=== PATIENT | male | born 1945 | race Caucasian/White ===

== ENCOUNTER 2021-12-08 09:01 | Outpatient (CLI) | payer OTHER, SELFPAY ==
--- OUTSIDE RECORDS SUMMARY | 2021-12-08 09:12 | XMS_ITS | Encounter Summary ---
:1945 Author Organization [place] Address [address] [facility] [place] [address] Care Team Providers Name Role Phone [facility] Primary Care Provider [phone] Encounter Details Date Type Department Care Team Description 03/06/2017 Orders Only [facility] Eye Gautam Landrum Giant cell arteritis Clinic [facility] MD Erik (H) Randall [address] [place] [address] Social History Tobacco Use Types Packs/Day Years Used Date Smoking Tobacco: Never Smokeless Tobacco: Never Alcohol Use Standard Drinks/Week Comments No 0 (1 standard drink = 0.6 oz pure alcoho l) Sex Assigned at Date Recorded Not on file documented as of this encounter Plan of Treatment Not on filedocumented as of this encounter Visit Diagnoses Diagnosis Giant cell arteritis (H) Giant cell arteritis documented in this encounter Care Teams Crop Grain Or Livestock Farmer Relationship Specialty Start Date End Date [facility] PCP - General 01/19/17 [place] [address] documented as of this encounter
--- OUTSIDE RECORDS SUMMARY | 2021-12-08 09:12 | XMS_ITS | Encounter Summary ---
:1945 Author Organization [place] Address [facility] [place] [address] Care Team Providers Name Role Phone [facility] Primary Care Provider [phone] Encounter Details Date Type Department Care Team Description 03/02/2017 Anesthesia Event [facility] Procedure Center Kirill Blair MD [address] [place] [address] [address] [place] [address] Anesthesia Record Procedure Summary Procedure Name Responsible Anesthesia Start Anesthesia Stop Time Anesthesiologist Time Right Temporal Sonia Rashid 03/02/17 0906 03/02/17 0 950 Artery Biopsy MD Edvin (Right: Face) Events Date Time Event Comment 03/02/2017 0817 0906 An Start 0906 An Start Data 0924 AN INCISION 0950 an stop data 0950 An Stop Electronically s igned by Ab Lyons on March 02, 2017 9:50 AM Name Total midazolam 1mg/mL 2 mg lidocaine 2% 100 mg propofol (DIPRIVAN) injection 10 mg/mL vial 90 mg lactated ringers infusion 300 mL Agents Name NO HELIOX O2 N2O Air Exp Sevoflurane Exp Isoflurane Exp Desflurane Exp N2O O2 Delivery Device Ins Sevoflurane Ins Isoflurane Ins Desflurane O2 Auxiliary Blood No blood administrations on file. Lines, Drains, and Airways Type Details Placement Removal Incision/Surgical Site 03/02/17; 09; Right; 03/02/17 09 by Andie Hernandez RN documented in this encounter Social History Tobacco Use Types Packs/Day Years Used Date Smoking Tobacco: Never Smokeless Tobacco: Never Alcohol Use Standard Drinks/Week Comments No 0 (1 standard drink = 0.6 oz pure alcoho l) Sex Assigned at Date Recorded Not on file documented as of this encounter OR Notes Anesthesia Postprocedure Evaluation - Sonia Rashid MD - 03/02/2017 12:58 PM CST Patient: Corby Mojica Procedure(s): Right Temporal Artery Biopsy - Wound Class: I-Clean Diagnosis:Rule Out Arteritis Diagnosis Additional Information: No value filed. Anesthesia Type: MAC Note: Anesthesia Post Evaluation Patient location during evaluation: Phase 2 Patient participation: Able to fully participate in evaluation Level of consciousness: awake and alert Pain management: adequate Airway patency: patent Cardiovascular status: acceptable Respiratory status: acceptable Hydration status: acceptable PONV: none Anesthetic complications: None Comments: Patient discharged prior to final evaluation. Chart reviewed. No anesthetic issues identified. Met discharge criteria. Last vitals: Vitals: 03/02/17 0741 03/02/17 0956 BP: 123/79 117/67 Pulse: 67 Resp: 16 16 Temp: 36.8 ??C (98.2 ??F) 36.7 ??C (98 ??F) SpO2: 95% 96% Electronically Signed By: Sonia Lee MD March 02, 2017 12:58 PM R DEPARTMENT SUPERVISOR Anesthesia Preprocedure Evaluation - Sonia Rashid MD - 02/28/2017 1:57 PM CST Anesthesia Evaluation . Pt has had prior anesthetic. Type: General and MAC ROS/MED HX ENT/Pulmonary: (+)sleep apnea, doesn't use CPAP , . . Neurologic: (+)other neuro resolved right eye double vision Cardiovascular: (+) hypertension----. Taking blood thinners Pt has received instructions: Instructions Given to patient: hold asa. . . :. . Previous cardiac testing date:results:date: results:ECG reviewed date:02/28/2017 results:NSR date: results: METS/Exercise Tolerance: >4 METS Hematologic: - neg hematologic ROS Musculoskeletal: - neg musculoskeletal ROS GI/Hepatic: (+) GERD Asymptomatic on medication, Renal/Genitourinary: - ROS Renal section negative Endo: (+) type II DM Last HgA1c: 7.4 date: 01/2017 not previously admitted for DM/DKA . Psychiatric: - neg psychiatric ROS Infectious Disease: - neg infectious disease ROS Malignancy: - no malignancy Other: (+) No chance of C-spine cleared: N/A, no H/O Chronic Pain,no other significant disability - neg other ROS Physical Exam Normal systems: cardiovascular, pulmonary and dental Airway Mallampati: III TM distance: >3 FB Neck ROM: full Dental Cardiovascular Rhythm and rate: regular and normal Pulmonary breath sounds clear to auscultation Other findings: Results for CORBY MOJICA ( ) as of 02/28/2017 16:18 02/28/2017 15:10 Sodium: 135 Potassium: 4.2 Chloride: 99 Carbon Dioxide: 32 Urea Nitrogen: 14 Creatinine: 0.56 (L) GFR Estimate: >90 GFR Estimate If Black: >90 Calcium: 8.8 Anion Gap: 5 Glucose: 219 (H) WBC: 6.3 Hemoglobin: 13.9 Hematocrit: 44.2 Platelet Count: 253 RBC Count: 5.13 MCV: 86 MCH: 27.1 MCHC: 31.4 (L) RDW: 13.9 PAC Discussion and Assessment ASA Classification: 2 Case is suitable for: ASC Anesthetic techniques and relevant risks discussed: MAC with GA as backup Invasive monitoring and risk discussed: Yes Types: Possibility and Risk of blood transfusion discussed: Yes NPO instructions given: Additional anesthetic preparation and risks discussed: Needs early admission to pre-op area: Other: PAC Resident/BIAS 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 HELPER Anesthesia Assessment: Corby Mojica is a 71 yo male scheduled for Right Temporal Artery Biopsy on 03/02/[address] Shaikh. PAC referral by Dr. Shaikh for assessment and optimization of anesthesia. Previous anesthesia without complications. 1) Cardiac: HTN, well managed. EKG today NSR. METS >4 without cardiac symptoms. 2) Pulmonary: Never smoked. Mild RAJESH, does not use CPAP 3) GI: GERD, well managed with protonix. 4) HEENT: evaluation of diplopia, mostly in his right eye, but this has now resolved. 5) Endo: DM II, last A1C 7.4 2 weeks ago. Feasible airway Pt also evaluated by Dr. Garduno. Please see recommendations below. Labs drawn today. I spent 20 minutes face to face with pt, assessing, examining, and educating Reviewed and Signed by PAC Mid-Level Provider/Resident Mid-Level Provider/Resident: Lisa Ruth APRN Date: 02/28/2017 Time: 1400 Attending Anesthesiologist Anesthesia Assessment: 71 year old for temporal artery biopsy in ongoing diagnosis of neurological symptoms (double vision,LE weakness). Chart reviewed, patient seen and evaluated; agree with above assessment. Patient has no significant cardiac or pulmonary disease. Stable GERD, DM II. Has been active, mets >4. This case under MAC. Patient is appropriate for the planned procedure without further workup or medical management change. The final anesthesia plan will be determined by the physician anesthesiologist caring for the patient on the day of surgery. Reviewed and Signed by PAC Anesthesiologist Anesthesiologist: lluvia Date: 02/28/2017 Time: Pass/Fail: Pass Disposition: PAC Pharmacist Assessment: Pharmacist: Date: Time: Anesthesia Plan History & Physical Review History and physical reviewed and following examination; no interval change. ASA Status: 3 . NPO Status: > 2 hours and > 8 hours Plan for MAC Reason for MAC: Deep or markedly invasive procedure (G8) Postoperative Care Consents Anesthetic plan, risks, benefits and alternatives discussed with: Patient and Spouse.. . R DEPARTMENT SUPERVISOR documented in this encounter Miscellaneous Notes Anesthesia Care Transfer Note - Ab Lyons APRN PHYSIOLOGICAL CHEMIST - 03/02/2017 9:50 AM CST Patient: Corby Mojica Procedure(s): Right Temporal Artery Biopsy - Wound Class: I-Clean Diagnosis: Rule Out Arteritis Diagnosis Additional Information: No value filed. Anesthesia Type: MAC Note: Airway :Room Air Patient transferred to:Phase II Comments: To Phase 2 recovery. VSS Denies discomfort. Fully awake and orientedHandoff Report: Identifed the Patient, Identified the Reponsible Provider, Reviewed the pertinent medical history, Discussed the surgical course, Reviewed Intra-OP anesthesia mangement and issues during anesthesia, Set expect ations for post-procedure period and Allowed opportunity for questions and acknowledgement of understanding Vitals: (Last set prior to Anesthesia Care Transfer) PHYSIOLOGICAL CHEMIST VITALS 03/02/2017 0920 - 03/02/2017 0950 03/02/2017 EKG: Sinus rhythm Electronically Signed By: Ab Lyons APRN PHYSIOLOGICAL CHEMIST March 02, 2017 9:50 AM R DEPARTMENT SUPERVISOR documented in this encounter Plan of Treatment Not on filedocumented as of this encounter Visit Diagnoses Not on filedocumented in this encounter Administered Medications Inactive Administered Medications - up to 3 most recent administrations Medication Order MAR Action Action Date Dose Rate Site lidocaine injection 2% (MDV) Given 03/02/2017 9:13 AM ORDER DEPARTMENT SUPERVISOR 100 mg Intravenous, PRN, Starting on Sun03/02/17 at 0913, Anesthesia Intra-op midazolam (VERSED) injection Given 03/02/2017 9:09 AM ORDER DEPARTMENT SUPERVISOR 1 mg Intravenous, Administer over 2 Minutes, PRN, anxiety, Starting on Sun03/02/17 at 0905, Anesthesia Intra-op Given 03/02/2017 9:05 AM ORDER DEPARTMENT SUPERVISOR 1 mg propofol (DIPRIVAN) injection 10 mg/mL v ial Given 03/02/2017 9:28 AM ORDER DEPARTMENT SUPERVISOR 15 mg Intravenous, PRN, Starting on Sun03/02/17 at 0915, Anesthesia Intra-op Given 03/02/2017 9:17 AM ORDER DEPARTMENT SUPERVISOR 25 mg Given 03/02/2017 9:15 AM ORDER DEPARTMENT SUPERVISOR 50 mg documented in this encounter Care Teams Piano Teacher Relationship Specialty Start Date End Date [facility] PCP - General 01/19/17 [place], [place] [address] documented as of this encounter
--- OUTSIDE RECORDS SUMMARY | 2021-12-08 09:12 | XMS_ITS | Clinical Summary ---
:1945 Author Organization [place] Address [facility] [place] [address] Care Team Providers Name Role Phone [facility] Primary Care Provider [phone] Allergies No known active allergies Medications Medication Sig Dispensed Refills Start Date End Date Status HYDROXYZINE HCL PO Take by mouth as 0 Active needed latanoprost (XALATAN) 1 drop At Bedtime 0 Active 0.005 % ophthalmic solution lidocaine (LIDODERM) Place 1 patch onto 0 Active 5 % Patch the skin every 24 hours Menthol-Methyl Externally apply 0 Active Salicylate topically every (MENTHODERM) 10-15 % other day OINT Cyanocobalamin Take by mouth every 0 Active (VITAMIN B 12 PO) morning FOLIC ACID PO Take 1 mg by mouth 0 Active every morning aspirin 325 MG tablet Take 325 mg by 0 Active mouth At Bedtime citalopram (CELEXA) Take 20 mg by mouth 0 Active 20 MG tablet every morning fish oil-omega-3 Take 2 g by mouth 0 Active fatty acids 1000 MG daily capsule furosemide (LASIX) 20 Take 20 mg by mouth 0 Active MG tablet daily gabapentin Take 800 mg by 0 Acti ve (NEURONTIN) 800 MG mouth every evening tablet lisinopril Take 10 mg by mouth 0 Active (PRINIVIL/ZESTRIL) 10 every morning MG tablet metFORMIN Take 500 mg by 0 Activ e (GLUCOPHAGE-XR) 500 mouth 3 times daily MG 24 hr tablet (with meals) methocarbamol Take 750 mg by 0 A ctive (ROBAXIN) 750 MG mouth three times a tablet week oxyCODONE-acetaminoph Take 1 tablet by 0 Active en (PERCOCET) 5-325 mouth every 4 hours MG per tablet as needed for moderate to severe pain pantoprazole Take 40 mg by mouth 0 Active (PROTONIX) 40 MG EC every morning tablet pioglitazone (ACTOS) Take 30 mg by mouth 0 Active 30 MG tablet every morning Ropinirole HCl 4 MG Take 4 mg by mouth 0 Active TB24 At Bedtime sildenafil (VIAGRA) Take 100 mg by 0 Active 100 MG tablet mouth daily as needed simvastatin (ZOCOR) Take 80 mg by mouth 0 Active 80 MG tablet At Bedtime Wound Dressings Externally apply 0 Active (SILVASORB) GEL topically as needed Sodium Fluoride 1.1 % Apply to affected 0 Active PSTE area 2 times daily acetaminophen Take 2 tablets (650 1 Bottle 0 03/02/2017 Active (TYLENOL) 325 MG mg) by mouth every tabletIndications: 4 hours as needed Post-operative state for mild pain (mild pain) Maximum of 4000 mg of acetaminophen in 24 hours. bacitracin 500 Apply topically 2 1 Tube 0 03/02/2017 Active UNIT/GM times daily OINTIndications: Post-operative state predniSONE Take 3 tablets (60 90 tablet 3 03/06/2017 Active (DELTASONE) 20 MG mg) by mouth daily tabletIndications: Giant cell arteritis (H) METHOTREXATE PO 0 Acti ve Active Problems No known active problems Social History Tobacco Use Types Packs/Day Years Used Date Smoking Tobacco: Never Smokeless Tobacco: Never Alcohol Use Standard Drinks/Week Comments No 0 (1 standard drink = 0.6 oz pure alcoho l) Sex Assigned at Date Recorded Not on file Last Filed Vital Signs Vital Sign Reading Time Taken Comments Blood Pressure 117/67 03/02/2017 9:56 AM MANAGER INTRANET Pulse 67 03/02/2017 7:41 AM MANAGER INTRANET Temperature 36.7 ??C (98 ??F) 03/02/2017 9:56 AM MANAGER INTRANET Respiratory Rate 16 03/02/2017 9:56 AM MANAGER INTRANET Oxygen Saturation 96% 03/02/2017 9:56 AM MANAGER INTRANET Inhaled Oxygen Concentration - - Weight 93 kg (205 lb) 03/02/2017 7:41 AM MANAGER INTRANET Height 185.4 cm (6' 1) 03/02/2017 7:41 AM MANAGER INTRANET Body Mass Index 27.05 03/02/2017 7:41 AM MANAGER INTRANET Plan of Treatment Not on file Insurance Payer Benefit Plan Subscriber ID Effective Phone Address Typ e / Group Dates [employer] [id number] 1995-Prese [phone] [facility] OFFICE [facility] nt [address] [facility] [address] [address] [place] [address] (Home) [place] [phone] RACHEL [place]UR[employer]ET[employer] (Work) [id number] Corby Perry Personal/Family Self [address] (Home) [place] [address] Corby Perry Other Self [id number] (Home) [place] [phone] RACHEL MURRIET[employer] (Work) [id number] Corby Perry Other Self [id number] ([place]) [place] [address] Care Teams Waste Reduction Coordinator Relationship Specialty [facility] [place], [place] [address]
--- OUTSIDE RECORDS SUMMARY | 2021-12-08 09:12 | XMS_ITS | Encounter Summary ---
:1945 Author Organization [place] Address [address] [place] [address]. [place] [address] Care Team Providers Name Role Phone [facility] Primary Care Provider [phone] Encounter Details Date Type Department Care Team Description 03/02/2017 Hospital Encounter [facility] Surgery and [place], Post-operative state Procedure Center MD Emily (Primary Dx) [address] [place] [id number] [phone] Social History Tobacco Use Types Packs/Day Years Used Date Smoking Tobacco: Never Smokeless Tobacco: Never Alcohol Use Standard Drinks/Week Comments No 0 (1 standard drink = 0.6 oz pure alcoho l) Sex Assigned at Date Recorded Not on file documented as of this encounter Last Filed Vital Signs Vital Sign Reading Time Taken Comments Blood Pressure 117/67 03/02/2017 9:56 AM EDI ARCHITECT Pulse 67 03/02/2017 7:41 AM EDI ARCHITECT Temperature 36.7 ??C (98 ??F) 03/02/2017 9:56 AM EDI ARCHITECT Respiratory Rate 16 03/02/2017 9:56 AM EDI ARCHITECT Oxygen Saturation 96% 03/02/2017 9:56 AM EDI ARCHITECT Inhaled Oxygen Concentration - - Weight 93 kg (205 lb) 03/02/2017 7:41 AM EDI ARCHITECT Height 185.4 cm (6' 1) 03/02/2017 7:41 AM EDI ARCHITECT Body Mass Index 27.05 03/02/2017 7:41 AM EDI ARCHITECT documented in this encounter Discharge Instructions Discharge Instructionsde Curtis Sauceda MD - 03/02/2017 9:51 AM EDI ARCHITECT Post-operative Instructions Ophthalmic Plastic and Reconstructive Surgery Emily Shaikh M.D. All instructions apply to the operated eye(s) or eyelid(s). Wound care and personal care ? If a patch or bandage has been placed, please leave this in place until seen by your physician. Ensure that the bandage does not get wet when you take a shower. ? You may shower or wash your hair the day after surgery. Do not bathe or go swimming for 1 week to prevent contamination of your wounds. ? Expect some swelling, bruising. Also expect serum caking, crusting and discharge from the incisions. A small amount of surface bleeding is normal for the first 48 hours. ? Your eye(s) and eyelid(s) may be painful and tender. This is normal after surgery. Use the pain medication as prescribed. If your pain does not improve despite the medication, contact the office. Activity restrictions and driving ? Avoid heavy lifting, bending, exercise or strenuous activity for 1 week after surgery. You may resume other activities and return to work as tolerated. ? You may not resume driving until have you stopped using narcotic pain medications (such as [place], Percocet, Tylenol #3). Medications ? Restart all your regular home medications and eye drops. If you take Plavix or Aspirin on a regular basis, wait for 72 hours after your surgery before restarting these in order todecrease the risk of bleeding complications. ? Avoid aspirin and aspirin-like medications (Motrin, Aleve, Ibuprofen, Giovana- Minong etc) for 72 hours to reduce the risk of bleeding. You may take Tylenol (acetaminophen) for pain. ? In addition to your home medications, take the following post-operative medications as prescribed by your physician. ? Apply antibiotic ointment (usually erythromycin) to all sutures three times a day ? Take pain pills at prescribed frequency as needed for pain. ? WARNING: All the prescription pain medications listed above contain Tylenol (acetaminophen). You must not take more than 4,000 mg of acetaminophen per 24-hour period. This is equivalent to 6 tablets of Darvocet, 12 tablets of [place], Percocet or Tylenol #3. If you take other [id number]-iqd-gvgexfe medications containing acetaminophen, you must take the amount of acetaminophen into account and reduce the number of prescribed pain pills accordingly. ? The prescribed medications may make you drowsy. You must not drive a car, operate heavy machinery or drink alcohol while taking them. ? The prescribed pain medications may cause constipation and nausea. Take them with some food to prevent a stomach upset. If you continue to experience nausea, call your physician. Contact information and follow-up ? Return to the Eye Clinic for a follow-up appointment with your physician as scheduled. If no appointment has been scheduled: - [facility] eye clinic: [phone] for an appointment with Dr. Shaikh within 1 to 2 weeks from your date of surgery. - [facility] eye clinic: [phone] for an appointment [address]. Shaikh within 1 to2 weeks from your date of surgery. ? For severe pain, bleeding, or loss of vision, call the [facility] at [phone] or [facility] at [phone]. After hours or on weekends and holidays, call [phone] and ask to speak with the ophthalmologiston call. An carton forming machine operatorcall worker can be reached after hours for concerns. The carton forming machine operator doctor should not call in medication refill requests after hours or on weekends, so please plan accordingly. An effort has been made to provide adequate pain medications following every surgery, and refills will not be provided in most instances. Narcotic pain medications cannot be called in. [facility] Home Care Following Anesthesia For 24 hours after surgery: 1. Get plenty of rest. A responsible adult must stay with you for at least 24 hours after you leave the surgery center. 2. Do not drive or use heavy equipment. If you have weakness or tingling, don't drive or use heavy equipment until this feeling goes away. 3. Do not drink alcohol. 4. Avoid strenuous or risky activities. Ask for help when climbing stairs. 5. You may feel lightheaded. IF so, sit for a few minutes before standing. Have someone help you getup. 6. If you have nausea (feel sick to your stomach): Drink only clear liquids such as apple juice, jocelin eros, broth or 7-Up. Rest may also help. Be sure to drink enough fluids. Move to a regular diet asyou feel able. 7. You may have a slight fever. Call the doctor if your fever is over 100??F (37.7??C) (taken under the tongue) or lasts longer than 24 hours. 8. You may have a dry mouth, a sore throat, muscle aches or trouble sleeping. These should go away after 24 hours. 9. Do not make important or legal decisions. {BlankBase Single ng pain medications To get the best pain relief possible, remember these points: ?? Take pain medications as directed, before pain becomes severe. ?? Pain medication can upset your stomach: taking it with food may help. ?? Constipation is a common side effect of pain medication. Drink plenty of fluids. ?? Eat foods high in fiber. Take a stool softener if recommended by your doctor or pharmacist. ?? Do not drink alcohol, drive or operate machinery while taking pain medications. ?? Ask about other ways to control pain, such as with heat, ice or relaxation. Tylenol/Acetaminophen Consumption To help encourage the safe use of acetaminophen, the makers of TYLENOL?? have lowered the maximum daily dose for single-ingredient Extra Strength TYLENOL?? (acetaminophen) products sold in the [place] from 8 pills per day (4,000 mg) to 6 pills per day (3,000 mg). The dosing interval has also changed from2 pills every 4-6 hours to 2 pills every 6 hours. ??? If you feel your pain relief is insufficient, you may take Tylenol/Acetaminophen in addition to your narcotic pain medication. ??? Be careful not to exceed 3,000 mg of Tylenol/Acetaminophen in a 24 hour period from all sources. ??? If you are taking extra strength Tylenol/acetaminophen (500 mg), the maximum dose is 6 tablets in 24 hours. ??? If you are taking regular strength acetaminophen (325 mg), the maximum dose is 9 tablets in 24 hours. Call a doctor for any of the followin. Signs of infection (fever, growing tenderness at the surgery site, a large amount of drainage or bleeding, severe pain, foul-smelling drainage, redness, swelling). 2. It has been over 8 to 10 hours since surgery and you are still not able to urinate (pass water). 3. Headache for over 24 hours. 4. Numbness, tingling or weakness the day after surgery (if you had spinal anesthesia). Your doctor is: Dr. Emiyl Shaikh, Ophthalmology: [phone] dial [phone] and ask for the resident carton forming machine operator for: {[facility] Emergency Department: [phone] (TTY for hearing impaired: [phone]) ARCHITECT documented in this encounter Medications at Time of Discharge Medication Sig Dispensed Refills Start Date End Date acetaminophen (TYLENOL) Take 2 tablets (650 mg) 1 Bottle 0 03/02/2017 325 MG by mouth every 4 hours tabletIndications: as needed for mild pain Post-operative state (mild pain) Maximum of 4000 mg of acetaminophen in 24 hours. aspirin 325 MG tablet Take 325 mg by mouth At 0 Bedtime bacitracin 500 UNIT/GM Apply topically 2 times 1 Tube 0 03/02/2017 OINTIndications: daily Post-operative state citalopram (CELEXA) 20 Take 20 mg by mouth 0 MG tablet every morning Cyanocobalamin (VITAMIN Take by mouth every 0 B 12 PO) morning fish oil-omega-3 fatty Take 2 g by mouth daily 0 acids 1000 MG capsule FOLIC ACID PO Take 1 mg by mouth 0 every morning furosemide (LASIX) 20 MG Take 20 mg by mouth 0 tablet daily gabapentin (NEURONTIN) Take 800 mg by mouth 0 800 MG tablet every evening HYDROXYZINE HCL PO Take by mouth as needed 0 latanoprost (XALATAN) 1 drop At Bedtime 0 0.005 % ophthalmic solution lidocaine (LIDODERM) 5 % Place 1 patch onto the 0 Patch skin every 24 hours lisinopril Take 10 mg by mouth 0 (PRINIVIL/ZESTRIL) 10 MG every morning tablet Menthol-Methyl Externally apply 0 Salicylate (MENTHODERM) topically every other 10-15 % OINT day metFORMIN Take 500 mg by mouth 3 0 (GLUCOPHAGE-XR) 500 MG times daily (with 24 hr tablet meals) methocarbamol (ROBAXIN) Take 750 mg by mouth 0 750 MG tablet three times a week oxyCODONE-acetaminophen Take 1 tablet by mouth 0 (PERCOCET) 5-325 MG per every 4 hours as needed tablet for moderate to severe pain pantoprazole (PROTONIX) Take 40 mg by mouth 0 40 MG EC tablet every morning pioglitazone (ACTOS) 30 Take 30 mg by mouth 0 MG tablet every morning Ropinirole HCl 4 MG TB24 Take 4 mg by mouth At 0 Bedtime sildenafil (VIAGRA) 100 Take 100 mg by mouth 0 MG tablet daily as needed simvastatin (ZOCOR) 80 Take 80 mg by mouth At 0 MG tablet Bedtime Sodium Fluoride 1.1 % Apply to affected area 0 PSTE 2 times daily Wound Dressings Externally apply 0 (SILVASORB) GEL topically as needed documented as of this encounter Miscellaneous Notes Op Note - Emily Shaikh MD - 03/02/2017 10:39 AM CST PREOPERATIVE DIAGNOSIS: Right eye visual disturbance, rule out temporal arteritis. POSTOPERATIVE DIAGNOSIS: Right eye visual disturbance, rule out temporal arteritis. PROCEDURE: Right temporal artery biopsy. SURGEON: Emily Shaikh MD ASSISTANTS: MD Umm Perez MD ANESTHESIA: Monitored with local infiltration of a 50/50 mixture of 2% lidocaine with epinephrine and 0.5% Marcaine. COMPLICATIONS: None. ESTIMATED BLOOD LOSS: Less than 5 mL. SPECIMEN: Temporal artery in formalin. HISTORY OF PRESENT ILLNESS: Corby Mojica presented with a subjective visual disturbance, thus wasreferred for a temporal artery biopsy to rule out temporal arteritis. After the risks, benefits and alternatives were explained, informed consent was obtained. DESCRIPTION OF PROCEDURE: The patient was brought to the operating room and placed supine on the operating table. IV sedation was given. The temporal artery was palpated on the right side, a marking made extending from the ear superotemporally over the nodular artery. The doppler was used to verify the artery. The area was infiltrated with local anesthetic and the area was prepped and draped in the typical sterile fashion for oculoplastic surgery. Attention was directed to the right side. An incision was made with a 15 blade through the skin. Subcutaneous tissue was dissected with the Menendez scissors. The artery was identified. We dissected out the artery and tagged the proximal and distal ends with 4-0 silk suture. The artery was cut with the Radha scissors. Hemostasis was obtained with monopolar cautery. The incision was closed with interrupted buried 5-0 Vicryl sutures deep and 5-0 chromic sutures on the skin edges. Antibiotic ointment was applied. The specimen was placed in formalin and sent for pathologic evaluation. A 2-cm in situ biopsy was obtained. The patient tolerated the procedure well and was taken to recovery room in stable condition. Emily Shaikh MD ARCHITECT Brief Op Note - Curtis Livingston MD - 03/02/2017 9:50 AM EDI ARCHITECT [facility] Brief Operative Note Pre-operative diagnosis: Rule Out Arteritis Post-operative diagnosis Same Procedure: Procedure(s): Right Temporal Artery Biopsy - Wound Class: I-Clean, Surgeon: Emily Shaikh MD Dance Master(s): Umm Pablo MD; Curtis Sharif MD Estimated blood loss: < 10 mL Specimens: None Findings: Consistent with diagnosis ARCHITECT documented in this encounter Plan of Treatment Not on filedocumented as of this encounter Procedures Procedure Name Priority Date/Time Associated Diagnosis Comme nts SURGICAL PATHOLOGY Routine 03/02/2017 9:36 AM Res ults for this EXAM EDI ARCHITECT procedure are i n the results section. BIOPSY, ARTERY, 03/02/2017 9:05 AM Rule Out Arteritis TEMPORAL EDI ARCHITECT GLUCOSE BY METER Routine 03/02/2017 8:09 AM Post-operative sta te Results for this EDI ARCHITECT procedure are i n the results section. documented in this encounter Results Surgical pathology exam (03/02/2017 9:36 AM EDI ARCHITECT) Component Value Ref Test Analysis Performed Pathologis t Range Method Time At Signature Copath Patient Name: CORBY MOJICA Report MR#: [id number] Specimen #: [id number] Collected: 03/02/2017 Received: 03/02/2017 Reported: 03/05/2017 12:57 Ordering Phy(s): EMILY SHAIKH For improved result formatting, select 'View Enhanced Report Format' under Linked Documents section. SPECIMEN(S): Temporal artery biopsy, right FINAL DIAGNOSIS: Temporal artery, right, biopsy: 1. Segmental transmural scarring strongly suggestive of heal ed arteritis. 2. Moderate arteriosclerosis. I have personally reviewed all specimens and/or slides, incl uding the listed special stains, and used them with my medical judgement to determine or confirm the final diagnosis. 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 He undergoes temporal artery biopsy on the right. GROSS: A: The specimen is received in formalin with proper patient identification, labeled right temporal artery. The specimen consists of a 1.8 cm in length 0.2 cm in diamet er cylindrical segment of goldberg-red soft tissue. The specimen is entirely submitted in cassette A1. (Dictated by: Suzette PEDERSEN [facility] 03/02/2017 10:19 AM) MICROSCOPIC: The tissue consists of artery with patent lumen and moderate intimal hyperplasia. A single segment demonstrates transmural scarring and neovascularization of t he vessel wall. There is loss of the internal elastic lamina in this area on H&E stain. This area is not i ncluded in the level of the elastic stain. No active inflammation is identified. CPT Codes: A: 95454-HR6, 21138-UEWM TESTING LAB LOCATION: [facility], [address] ?? [address] COLLECTION SITE: Client: [facility] Location: [facility] [place] (B) Specimen (Source) Anatomical Collection Method Collection Time Re ceived Time Location / / Volume Laterality Specimen from STRUCTURE OF 03/02/2017 9:36 unspecified body SUPERFICIAL AM EDI ARCHITECT site obtained by TEMPORAL ARTERY / biopsy (specimen) Unknown Narrative This result has an attachment that is no t available. Emily WOODS - SELINA JESSICA Performing Organization Address City/State/ZIP Code Phon e Number COPATH (ABNORMAL) Glucose by meter (03/02/2017 8:09 AM EDI ARCHITECT) P athologist Signature Glucose 188 (H) 70 - 99 03/02/2017 POINT OF CARE mg/dL 8:15 AM EDI ARCHITECT TEST, GLUCOSE Specimen Anatomical Collection Method Collection Time Receive d Time (Source) Location / / Volume Laterality 03/02/2017 8:09 AM 8 8:15 EDI ARCHITECT AM EDI ARCHITECT Emily WOODS - SELINA POCT Performing Organization Address City/State/ZIP Code Phon e Number FV POINT OF CARE TEST, GLUCOSE POINT OF CARE TEST, GLUCOSE documented in this encounter Visit Diagnoses Diagnosis Post-operative state - Primary Other postprocedural status documented in this encounter Administered Medications Inactive Administered Medications - up to 3 most recent administrations Medication Order MAR Action Action Date Dose Rate Site acetaminophen (TYLENOL) tablet 975 Given 03/02/2017 8:10 AM EDI ARCHITECT 975 mg mg 975 mg, Oral, ONCE, On Sun03/02/17 at 0730, For 1 dose, Maximum acetaminophen dose from all sources = 75 mg/kg/day not to exceed 4 grams/day., Pre-procedure lactated ringers infusion New Bag 03/02/2017 8:10 AM EDI ARCHITECT 25 mL/hr at 25 mL/hr, Intravenous, CONTINUOUS, IF patient NOT on dialysis., Pre-procedure, Starting on Sun03/02/17 at 0745, Until Sun03/02/17 at 0947 documented in this encounter Care Teams Air Quality Manager Relationship Specialty Start Date End Date [place], [facility] PCP - General 01/19/17 [place] [address] documented as of this encounter
--- OUTSIDE RECORDS SUMMARY | 2021-12-08 09:12 | XMS_ITS | Encounter Summary ---
:1945 Author Organization [place] Address [address] [place] [address] Care Team Providers Name Role Phone [place], [facility] Primary Care Provider [phone] Reason for Visit Reason Onset Date Comments Patient Request 03/06/2017 Encounter Details Date Type Department Care Team Description 03/06/2017 Telephone [facility] Eye Gautam Landrum Patient Request Clinic - Gustavo Valencia MD [id number] [place] [address] [facility] [place] [phone] Social History Tobacco Use Types Packs/Day Years Used Date Smoking Tobacco: Never Smokeless Tobacco: Never Alcohol Use Standard Drinks/Week Comments No 0 (1 standard drink = 0.6 oz pure alcoho l) Sex Assigned at Date Recorded Not on file documented as of this encounter Miscellaneous Notes Telephone Encounter - Campbell Frazier RN - 03/06/2017 4:32 PM CST No answer at 1615 Campbell Frazier RN 4:33 PM 03/06/17 ATRY ASSISTANT Telephone Encounter - Campbell Frazier RN - 03/06/2017 2:56 PM CST calling as middle person to pt who was on her other line Asked if could talk to her /pt and provided the [phone] number. Asked to tell pt I will be calling in 30 seconds Called 3 times-- no answer and left voicemail with direct number Campbell Frazier RN 3:00 PM 03/06/17 ATRY ASSISTANT documented in this encounter Plan of Treatment Not on filedocumented as of this encounter Visit Diagnoses Not on filedocumented in this encounter Care Teams Supervisor Tree Trimming Relationship Specialty Start Date End Date Center, [facility] PCP - General 01/19/17 One [place], [place] [id number] documented as of this encounter
--- OUTSIDE RECORDS SUMMARY | 2021-12-08 09:12 | XMS_ITS | Encounter Summary ---
:1945 Author Organization [place] Address [address] [facility] [place] [address] Care Team Providers Name Role Phone [facility] Primary Care Provider [phone] Encounter Details Date Type Department Care Team Description 03/05/2017 Orders Only [facility] Eye Gautam Landrum Giant cell arteritis Clinic [facility] MD Erik (H) (Primary Dx) [place] [address] [place] [address] Social History Tobacco Use Types Packs/Day Years Used Date Smoking Tobacco: Never Smokeless Tobacco: Never Alcohol Use Standard Drinks/Week Comments No 0 (1 standard drink = 0.6 oz pure alcoho l) Sex Assigned at Date Recorded Not on file documented as of this encounter Plan of Treatment Not on filedocumented as of this encounter Visit Diagnoses Diagnosis Giant cell arteritis (H) - Primary Giant cell arteritis documented in this encounter Care Teams Fiberglass Bonding Machine Tender Relationship Specialty Start Date End Date [facility] PCP - General 01/19/17 One [place], [place] [id number] documented as of this encounter
--- OUTSIDE RECORDS SUMMARY | 2021-12-08 09:12 | XMS_ITS | Encounter Summary ---
:1945 Author Organization [place] Address [address] [facility] [place] [address] Care Team Providers Name Role Phone [facility] Primary Care Provider [phone] Encounter Details Date Type Department Care Team Description 03/06/2017 Orders Only [facility] Eye Gautam Landrum Giant cell arteritis Clinic [facility] MD Erik (H) (Primary Dx) [place] [address] [facility] [address] [place] [address] Social History Tobacco Use Types [...] arteritis documented in this encounter Care Teams Fabric Machine Operator Relationship Specialty Start Date End Date [facility] PCP - General 01/19/17 One [place], [place] [address] documented as of this encounter
--- OUTSIDE RECORDS SUMMARY | 2021-12-08 09:12 | XMS_ITS | Encounter Summary ---
:1945 Author Organization [place] Address [facility] [place] [address] Care Team Providers Name Role Phone [place], [facility] Primary Care Provider [phone] Reason for Visit Reason Comments Pre-Op Exam Encounter Details Date Type Department Care Team Description 02/28/2017 Office Visit [facility] Preoperative 7, Pac Javan Preop general physical Assessment Center exam (Primary Dx) [address] [place] [address] Anesthesia Record Procedure Summary Procedure [...] Lyons on March 02, 2017 9:50 AM No medications on file. Agents No agents on file. Blood No blood administrations on file. Lines, Drains, and Airways Type Details Placement Removal Incision/Surgical Site 03/02/17; 0901; Right; 03/02/17 0901 by Andie Hernandez RN documented in this [...] Sign Reading Time Taken Comments Blood Pressure 166/78 02/28/2017 1:48 PM BAND RIPSAW OPERATOR Pulse 75 02/28/2017 1:48 PM BAND RIPSAW OPERATOR Temperature 36.6 ??C (97.8 ??F) 02/28/2017 1:48 PM BAND RIPSAW OPERATOR Respiratory Rate 16 02/28/2017 1:48 PM BAND RIPSAW OPERATOR Oxygen Saturation 96% 02/28/2017 1:48 PM BAND RIPSAW OPERATOR Inhaled Oxygen Concentration - - Weight 109.7 kg (241 lb 14.4 oz) 02/28/2017 1:48 PM BAND RIPSAW OPERATOR Height 185.4 cm (6' 1) 02/28/2017 1:48 PM BAND RIPSAW OPERATOR Body Mass Index 31.91 02/28/2017 1:48 PM BAND RIPSAW OPERATOR documented in this encounter H&P Notes Estela Ruth, MARTIN ASSOCIATE PROGRAMMER - 02/28/2017 1:00 PM CST Images from the original note were not included. Pre-Operative H & P CC: Preoperative exam to assess for increased cardiopulmonary risk while undergoing surgery and anesthesia. Date of Encounter: 02/28/2017 Primary Care Physician: [place], [facility] Corby Mojica is a 71 year old male who presents for pre-operative H & P in preparation for Right Temporal Artery Biopsy with Dr. Shaikh on 03/02/17 at [facility] [place]. History is obtained from the patient. Evaluation of diplopia, mostly in his right eye, but this has now resolved. Biopsy indicated for definitive diagnosis. Past Medical History Past Medical History: Diagnosis Date ??? Diabetes mellitus (H) 1996 Type 2 ??? Double vision 10/2016 resolved ??? GERD (gastroesophageal reflux disease) ??? HTN (hypertension) ??? Hyperlipidemia ??? RAJESH (obstructive sleep apnea) mild, does not use CPAP Past Surgical History Past Surgical History: Procedure Laterality Date ??? C RHINOPLASTY-INCL MAJOR SEPTAL REPAIR ? ? HC ASPIRATION &/OR INJECTION GANGLION CYST, ANY right 2nd finger ??? UVULOPALATOPHARYNGOPLASTY Hx of Blood transfusions/reactions: none Hx of abnormal bleeding or anti-platelet use: asa, hold for procedure Menstrual history: No LMP for male patient.: Steroid use in the last year: none Personal or FH with difficulty with Anesthesia: None Prior to Admission Medications Current Outpatient Prescriptions Medication Sig Dispense Refill ??? Cyanocobalamin (VITAMIN B 12 PO) Take by mouth every morning ??? FOLIC ACID PO Take 1 mg by mouth every morning ??? aspirin 325 MG tablet Take 325 mg by mouth At Bedtime ??? citalopram (CELEXA) 20 MG tablet Take 20 mg by mouth every morning ??? fish oil-omega-3 fatty acids 1000 MG capsule Take 2 g by mouth daily ??? furosemide (LASIX) 20 MG tablet Take 20 mg by mouth daily ??? gabapentin (NEURONTIN) 800 MG tablet Take 800 mg by mouth every evening ??? lisinopril (PRINIVIL/ZESTRIL) 10 MG tablet Take 10 mg by mouth every morning ??? metFORMIN (GLUCOPHAGE-XR) 500 MG 24 hr tablet Take 500 mg by mouth 3 times daily (with meals) ??? methocarbamol (ROBAXIN) 750 MG tablet Take 750 mg by mouth three times a week ??? oxyCODONE-acetaminophen (PERCOCET) 5-325 MG per tablet Take 1 tablet by mouth every 4 hours as needed for moderate to severe pain ??? pantoprazole (PROTONIX) 40 MG EC tablet Take 40 mg by mouth every morning ??? pioglitazone (ACTOS) 30 MG tablet Take 30 mg by mouth every morning ??? Ropinirole HCl 4 MG TB24 Take 4 mg by mouth At Bedtime ??? sildenafil (VIAGRA) 100 MG tablet Take 100 mg by mouth daily as needed ??? simvastatin (ZOCOR) 80 MG tablet Take 80 mg by mouth At Bedtime ??? Wound Dressings (SILVASORB) GEL Externally apply topically as needed ??? Sodium Fluoride 1.1 % PSTE Apply to affected area 2 times daily ??? HYDROXYZINE HCL PO Take by mouth as needed ??? lidocaine (LIDODERM) 5 % Patch Place 1 patch onto the skin every 24 hours ??? Menthol-Methyl Salicylate (MENTHODERM) 10-15 % OINT Externally apply topically every other day ??? latanoprost (XALATAN) 0.005 % ophthalmic solution 1 drop At Bedtime ??? [DISCONTINUED] CITALOPRAM HYDROBROMIDE PO Take by mouth every morning ??? [DISCONTINUED] GABAPENTIN PO Take by mouth every evening ??? [DISCONTINUED] LISINOPRIL PO Take by mouth every morning ??? [DISCONTINUED] METFORMIN HCL PO Take 500 mg by mouth 3 times daily (with meals) ??? [DISCONTINUED] PIOGLITAZONE HCL PO Take by mouth every morning ??? [DISCONTINUED] ROPINIROLE HCL PO Take by mouth 3 times daily as needed Allergies No Known Allergies Social History Social History Social History ??? Marital status: Spouse name: N/A ??? Number of children: N/A ??? Years of education: N/A Occupational History ??? Not on file. Social History Main Topics ??? Smoking status: Never Smoker ??? Smokeless tobacco: Never Used ??? Alcohol use No ??? Drug use: No ??? Sexual activity: Not on file Other Topics Concern ??? Not on file Social History Narrative Family History No family history on file. Anesthesia Evaluation . Pt has had prior anesthetic. Type: General and MAC ROS/MED HX ENT/Pulmonary: (+)sleep apnea, doesn't use CPAP , . . Neurologic: (+)other neuro resolved right eye double vision Cardiovascular: (+) hypertension----. : . . . :. . Previous cardiac testing date:results:date: results:ECG reviewed date:02/28/2017 results: date: results: METS/Exercise Tolerance: >4 METS Hematologic: - neg hematologic ROS Musculoskeletal: - neg musculoskeletal ROS GI/Hepatic: (+) GERD Asymptomatic on medication, Renal/Genitourinary: - ROS Renal section negative Endo: (+) type II DM . Psychiatric: - neg psychiatric ROS Infectious Disease: - neg infectious disease ROS Malignancy: - no malignancy Other: (+) No chance of C-spine cleared: N/A, no H/O Chronic Pain,no other significant disability - neg other ROS Physical Exam Normal systems: cardiovascular, pulmonary and dental Airway Mallampati: III TM distance: >3 FB Neck ROM: full Dental Normal Cardiovascular Rhythm and rate: regular Pulmonary breath sounds clear to auscultation The complete review of systems is negative other than noted in the HPI or here. Temp: 97.8 ??F (36.6 ??C) Temp src: Oral BP: 166/78 Pulse: 75 Resp: 16 SpO2: 96 % 241 lbs 14.4 oz 6' 1 Body mass index is 31.91 kg/(m^2). Physical Exam Constitutional: Awake, alert, cooperative, no apparent distress, and appears stated age. Eyes: Pupils equal, round and reactive to light, extra ocular muscles intact, sclera clear, conjunctiva normal. HENT: Normocephalic, oral pharynx with moist mucus membranes, good dentition. No goiter appreciated. Respiratory: Clear to auscultation bilaterally, no crackles or wheezing. Cardiovascular: Regular rate and rhythm, normal S1 and S2, and no murmur noted. Carotids +2, no bruits. No edema. Palpable pulses to radial DP and PT arteries. GI: Normal bowel sounds, soft, non-distended, non-tender, no masses palpated, no hepatosplenomegaly. Lymph/Hematologic: No cervical lymphadenopathy and no supraclavicular lymphadenopathy. Genitourinary: deferred Skin: Warm and dry. No rashes at anticipated surgical site. Musculoskeletal: Full ROM of neck. There is no redness, warmth, or swelling of the joints. Gross motor strength is normal. Neurologic: Awake, alert, oriented to name, place and time. Cranial nerves II- XII are grossly intact. Gait is normal. Neuropsychiatric: Calm, cooperative. Normal affect. Labs: (personally reviewed) Results for CORBY MOJICA ( ) as of 02/28/2017 16:18 Ref. Range 02/28/2017 15:10 Sodium Latest Ref Range: 133 - 144 mmol/L 135 Potassium Latest Ref Range: 3.4 - 5.3 mmol/L 4.2 Chloride Latest Ref Range: 94 - 109 mmol/L 99 Carbon Dioxide Latest Ref Range: 20 - 32 mmol/L 32 Urea Nitrogen Latest Ref Range: 7 - 30 mg/dL 14 Creatinine Latest Ref Range: 0.66 - 1.25 mg/dL 0.56 (L) GFR Estimate Latest Ref Range: >60 mL/min/1.7m2 >90 GFR Estimate If Black Latest Ref Range: >60 mL/min/1.7m2 >90 Calcium Latest Ref Range: 8.5 - 10.1 mg/dL 8.8 Anion Gap Latest Ref Range: 3 - 14 mmol/L 5 Glucose Latest Ref Range: 70 - 99 mg/dL 219 (H) WBC Latest Ref Range: 4.0 - 11.0 10e9/L 6.3 Hemoglobin Latest Ref Range: 13.3 - 17.7 g/dL 13.9 Hematocrit Latest Ref Range: 40.0 - 53.0 % 44.2 Platelet Count Latest Ref Range: 150 - 450 10e9/L 253 RBC Count Latest Ref Range: 4.4 - 5.9 10e12/L 5.13 MCV Latest Ref Range: 78 - 100 fl 86 MCH Latest Ref Range: 26.5 - 33.0 pg 27.1 MCHC Latest Ref Range: 31.5 - 36.5 g/dL 31.4 (L) RDW Latest Ref Range: 10.0 - 15.0 % 13.9 EKG: Personally reviewed but formal cardiology read pendin02/28/2017 NSR ASSESSMENT and PLAN Corby Mojica is a 71 year old male scheduled to undergo Right Temporal Artery Biopsy. He has the following specific operative considerations: - RCRI : Low serious cardiac risks. 0.4% risk of major adverse cardiac event. - Anesthesia considerations: Refer to PAC assessment in anesthesia records - VTE risk: 1.8% - RAJESH # of risks = known mild RAJESH without CPAP use - Post-op delirium risk: high risk due to age - Risk of PONV score = 2. If > 2, anti-emetic intervention recommended. Previous anesthesia without complications. 1) Cardiac: HTN, well managed. EKG today NSR. METS >4 without cardiac symptoms. 2) Pulmonary: Never smoked. Mild RAJESH, does not use CPAP 3) GI: GERD, well managed with protonix. 4) HEENT: evaluation of diplopia, mostly in his right eye, but this has now resolved. 5) Endo: DM II, last A1C 7.4 2 weeks ago. Feasible airway Pt optimized for surgery. AVS with information on surgery time/arrival time, meds and NPO status given by nursing staff Pt is appropriate for ASC Patient was discussed with Dr Garduno. MARTIN Adkins Preoperative Assessment Center [facility] RIPSAW OPERATOR documented in this encounter Plan of Treatment Not on filedocumented as of this encounter Procedures Procedure Name Priority Date/Time Associated Diagnosis Comme nts EKG 12-LEAD Routine 02/28/2017 3:20 PM Preop general Results for this COMPLETE W/READ - BAND RIPSAW OPERATOR physical exam procedure are in CLINICS the results section. EKG CARDIAC - HIM 02/28/2017 12:00 AM SCAN BAND RIPSAW OPERATOR documented in this encounter Results EKG 12-lead complete w/read - Clinics (02/28/2017 3:20 PM BAND RIPSAW OPERATOR) [facility] Method Time Signature Interpretation ECG Click View RADIOLOGY Image link RESULTS to view waveform and result Specimen (Source) Anatomical Collection Method Collection Time Re ceived Time Location / / Volume Laterality 02/28/2017 3:20 PM BAND RIPSAW OPERATOR Estela Ruth APRN TRAFFIC OPERATIONS ENGINEER ECG ORDERABLES Performing Organization Address City/[facility]/ZIP Code Phon e Number RADIOLOGY RESULTS (ABNORMAL) CBC with platelets (02/28/2017 3:10 PM BAND RIPSAW OPERATOR) [facility] Method Time Signature WBC 6.3 4.0 - 11.0 02/28/2017 [facility] 10e9/L 3:44 PM [facility] RBC Count 5.13 4.4 - 5.9 02/28/2017 [facility] 10e12/L 3:44 PM [facility] Hemoglobin 13.9 13.3 - 02/28/2017 [facility] 17.7 g/dL 3:44 PM [facility] Hematocrit 44.2 40.0 - 02/28/2017 [facility] 53.0 % 3:44 PM [facility] MCV 86 78 - 100 02/28/2017 [facility] fl 3:44 PM [facility] MCH 27.1 26.5 - 02/28/2017 [facility] 33.0 pg 3:44 PM [facility] MCHC 31.4 (L) 31.5 - 02/28/2017 [facility] 36.5 g/dL 3:44 PM [facility] RDW 13.9 10.0 - 02/28/2017 [facility] 15.0 % 3:44 PM [facility] Platelet Count 253 150 - 450 02/28/2017 [facility] 10e9/L 3:44 PM [facility] Specimen Anatomical Collection Method Collection Time Receive d Time (Source) Location / / Volume Laterality Blood specimen 02/28/2017 3:10 PM 018 3:13 (specimen) BAND RIPSAW OPERATOR PM BAND RIPSAW OPERATOR Estela Ruth APRN TRAFFIC OPERATIONS ENGINEER LAB - BLOOD ORDERABLES Performing Organization Address City/[facility]/[place] [address] [facility] (ABNORMAL) Basic metabolic panel (02/28/2017 3:10 PM [facility]) [facility] Method Time Signature Sodium 135 133 - 144 02/28/2017 [facility] mmol/L 4:01 PM [facility] Potassium 4.2 3.4 - 5.3 02/28/2017 [facility] mmol/L 4:01 PM [facility] Chloride 99 94 - 109 02/28/2017 [facility] mmol/L 4:01 PM [facility] Carbon Dioxide 32 20 - 32 02/28/2017 [facility] mmol/L 4:01 PM [facility] Anion Gap 5 3 - 14 02/28/2017 [facility] mmol/L 4:01 PM [facility] Glucose 219 (H) 70 - 99 02/28/2017 [facility] mg/dL 4:01 PM [facility] Urea Nitrogen 14 7 - 30 02/28/2017 [facility] mg/dL 4:01 PM [facility] Creatinine 0.56 (L) 0.66 - 02/28/2017 [facility] 1.25 mg/dL 4:01 PM [facility] GFR Estimate >90 >60 02/28/2017 [facility] mL/min/1.7 4:[address] Comment: Non GFR Calc GFR Estimate If >90 >60 mL/min/1.7m2 02/28/2017 4:01 P M [facility] Comment: GFR Calc Calcium 8.8 8.5 - 10.1 mg/dL 02/28/2017 4:01 PM [facility] Specimen Anatomical Collection Method Collection Time Receive d Time (Source) Location / / Volume Laterality Blood specimen 02/28/2017 3:10 PM 018 3:13 (specimen) BAND RIPSAW OPERATOR PM [facility] Estela Ruth APRN TRAFFIC OPERATIONS ENGINEER LAB - BLOOD ORDERABLES Performing Organization Address City/[facility]/[place] [address] [facility] EKG CARDIAC - HIM SCAN (02/28/2017 12:00 AM BAND RIPSAW OPERATOR) Specimen (Source) Anatomical Location Collection Method / Collectio n Time Received Time / Laterality Volume 02/28/2017 Narrative This result has an attachment that is no t available. Provider Scan ECG ORDERABLES documented in this encounter Visit Diagnoses Diagnosis Preop general physical exam - Primary Other specified pre-operative examinatio n documented in this encounter Care Teams Conventions Reservationist Relationship Specialty Start Date End Date [facility] PCP - General 01/19/17 [place] [address] documented as of this encounter
--- OUTSIDE RECORDS SUMMARY | 2021-12-08 09:12 | XMS_ITS | Encounter Summary ---
:1945 Author Organization [place] Address [address] [place] [address]. [place] [address] Care Team Providers Name Role Phone [facility] Primary [facility] [phone] Encounter Details Date Type Department Care Team Description 03/02/2017 Surgery [facility] Surgery and Emily Shaikh R ighgloria Temporal Artery Procedure Center Biopsy [address] [place] [address] 5th [place] [address] [phone] Surgery Details Date/Time Status Location OR Service Patient Case Case Traum a Class Class Type Case? 03/02/17 9:05 Posted OR OR Ophthalmology Same Day AM Surgery Panel 1 Procedure LRB Anes Op Region Wound Class Commen ts Right Temporal Artery Right MAC with Local Face I-Clean Right Temporal Biopsy Artery Biopsy Surgeon Surgeon Role Service Panel Emily Shaikh MD Primary Ophthalmology 1 Umm Pablo MD Resident - Assisting Ophthalmology 1 documented in this encounter Social History Tobacco [...] Comments Blood Pressure 117/67 03/02/2017 9:56 AM POWDER BLENDER Pulse 67 03/02/2017 7:41 AM POWDER BLENDER Temperature 36.7 ??C (98 ??F) 03/02/2017 9:56 AM POWDER BLENDER Respiratory Rate 16 03/02/2017 9:56 AM POWDER BLENDER Oxygen Saturation 96% 03/02/2017 9:56 AM POWDER BLENDER Inhaled Oxygen Concentration - - Weight 93 kg (205 lb) 03/02/2017 7:41 AM POWDER BLENDER Height 185.4 cm (6' 1) 03/02/2017 7:41 AM POWDER BLENDER Body Mass Index 27.05 03/02/2017 7:41 AM POWDER BLENDER documented in this encounter Discharge Instructions Discharge Instructionsde Curtis Sauceda MD - 03/02/2017 9:51 AM POWDER BLENDER Post-operative Instructions Ophthalmic Plastic and Reconstructive Surgery [...] stopped using narcotic pain medications (such as Crandall, Percocet, Tylenol #3). Medications ? Restart all your regular home medications and eye drops. If you take Plavix or Aspirin on a regular basis, wait for 72 hours after your surgery before restarting these in order todecrease the risk of bleeding complications. ? Avoid aspirin and aspirin-like medications (Motrin, Aleve, Ibuprofen, Giovana- [place] etc) for 72 hours to reduce the [...] 6 tablets of Darvocet, 12 tablets of Crandall, Percocet or Tylenol #3. If you take other egxi-yra-fdsvusn medications containing acetaminophen, you must take the [...] appointment has been scheduled: - [facility] eye clinic: [phone] for an appointment with Dr. Shaikh within 1 to 2 weeks from your date of surgery. - [facility] eye clinic: [phone] for an appointment with Dr. Shaikh within 1 to2 weeks from your date of surgery. ? For severe pain, bleeding, or loss of vision, call the [facility] Eye Clinic at [phone] or [facility] Clinic at [phone]. After hours or on weekends and holidays, call [phone] and ask to speak with the ophthalmologiston call. An contact acid plant operatorscallop shucker can be reached after hours for concerns. The contact acid plant operator doctor should not call in medication refill requests after hours or on weekends, so please plan accordingly. An effort has been made to provide adequate pain medications following every surgery, and refills will not be provided in most instances. Narcotic pain medications cannot be called in. [facility] Ambulatory Surgery and Procedure Center Home Care [...] had spinal anesthesia). Your doctor is: Dr. Emily Shaikh, Ophthalmology: [phone] dial [phone] and ask for the resident contact acid plant operator for: {[employer] [facility] Emergency Department: [phone] (TTY for hearing impaired: [phone]) ER BLENDER documented in this encounter Medications at Time [...] room in stable condition. Emily Shaikh MD ER BLENDER Brief Op Note - Curtis Livingston MD - 03/02/2017 9:50 AM POWDER BLENDER [facility] Brief Operative Note Pre-operative diagnosis: Rule Out Arteritis Post-operative diagnosis Same Procedure: Procedure(s): Right Temporal Artery Biopsy - Wound Class: I-Clean, Surgeon: Emily Shaikh MD [place] Director(s): Umm Pablo MD; Curtis Sharif MD Estimated blood loss: < 10 mL Specimens: None Findings: Consistent with diagnosis ER BLENDER documented in this encounter Plan of Treatment Not on filedocumented as of this encounter Procedures Procedure Name Priority Date/Time Associated Diagnosis Comme nts SURGICAL PATHOLOGY Routine 03/02/2017 9:36 AM Res ults for this EXAM POWDER BLENDER procedure are i n the results section. BIOPSY, ARTERY, 03/02/2017 9:05 AM Rule Out Arteritis TEMPORAL POWDER BLENDER GLUCOSE BY METER Routine 03/02/2017 8:09 AM Post-operative sta te Results for this POWDER BLENDER procedure are i n the results section. documented in this encounter Results Surgical pathology exam (03/02/2017 9:36 AM POWDER BLENDER) Component Value Ref Test Analysis Performed Pathologis t Range Method Time At Signature Copath Patient Name: CORBY MOJICA Report MR#: [id number] Specimen #: [id number] Collected: 03/02/2017 Received: 03/02/2017 [...] Electronically signed out by: Angely Montoya M.D., [facility] CLINICAL HISTORY: The patient is a [...] in cassette A1. (Dictated by: Suzette PEDERSEN [facility] 03/02/2017 10:19 AM) MICROSCOPIC: The tissue [...] active inflammation is identified. CPT Codes: A: 80537-MR4, 29423-KOBY TESTING LAB LOCATION: [facility], [address] ?? [address] COLLECTION SITE: Client: General acute hospital Location: [facility] ([place]) Specimen (Source) Anatomical Collection Method Collection Time Re ceived Time Location / / Volume Laterality Specimen from STRUCTURE OF 03/02/2017 9:36 unspecified body SUPERFICIAL AM POWDER BLENDER site obtained by TEMPORAL ARTERY / biopsy (specimen) Unknown Narrative This result has an attachment that is no t available. Emily WOODS - BEAKER AP Performing Organization Address City/State/ZIP Code Phon e Number COPATH (ABNORMAL) Glucose by meter (03/02/2017 8:09 AM POWDER BLENDER) P athologist Signature Glucose 188 (H) 70 - 99 03/02/2017 POINT OF CARE mg/dL 8:15 AM POWDER BLENDER TEST, GLUCOSE Specimen Anatomical Collection Method Collection Time Receive d Time (Source) Location / / Volume Laterality 03/02/2017 8:09 AM 8 8:15 POWDER BLENDER AM POWDER BLENDER Emily MARKS POCT Performing Organization Address City/State/ZIP Code Phon e Number FV POINT OF CARE TEST, GLUCOSE POINT OF CARE TEST, GLUCOSE documented in this encounter Visit Diagnoses Not on filedocumented in this encounter Administered Medications Inactive Administered Medications - up to 3 most recent administrations Medication Order MAR Action Action Date Dose Rate Site acetaminophen (TYLENOL) tablet 975 Given 03/02/2017 8:10 AM POWDER BLENDER 975 mg mg 975 mg, Oral, ONCE, On Sun03/02/17 at 0730, For 1 dose, Maximum acetaminophen dose from all sources = 75 mg/kg/day not to exceed 4 grams/day., Pre-procedure bupivacaine 0.5% - 30 mL, Given 03/02/2017 9:14 AM 4 mLs Operative Site/Surgical lidocaine 2% w/EPINEPHrine POWDER BLENDER Site 1:100,000 30 mL PRN, Starting on Sun03/02/17 at 0914, Intra-procedure erythromycin (ROMYCIN) Given 03/02/2017 9:40 AM 1 inch Operative Site/Surgical ophthalmic ointment POWDER BLENDER Site PRN, Starting on Sun03/02/17 at 0940, Intra-procedure lactated ringers infusion New Bag 03/02/2017 8:10 AM POWDER BLENDER 25 mL/hr at 25 mL/hr, Intravenous, CONTINUOUS, IF patient NOT on dialysis., Pre-procedure, Starting on Sun03/02/17 at 0745, Until Sun03/02/17 at 0947 documented in this encounter Care Teams Corporate Development Officer Relationship Specialty Start Date End Date [place], [facility] PCP - General 01/19/17 [place] [address] documented as of this encounter
--- OUTSIDE RECORDS SUMMARY | 2021-12-08 09:12 | XMS_ITS | Encounter Summary ---
:1945 Author Organization [place] Address Formerly [facility]0 [facility] [place] [address] Care Team Providers Name Role Phone [facility] Primary Care Provider [phone] Reason for Visit Reason Comments Post Op (Ophthalmology) Right Eye Encounter Details Date Type Department Care Team Description 03/20/2017 Office Visit [facility] Ophthalmkailyn Shaikh, Giant cell arteritis [address] [facility] MD Emily (H) (Primary Dx) 4th Floor [address] [place] [phone] Social History Tobacco Use Types Packs/Day Years Used Date Smoking Tobacco: Never Smokeless Tobacco: Never Alcohol Use Standard Drinks/Week Comments No 0 (1 standard drink = 0.6 oz pure alcoho l) Sex Assigned at Date Recorded Not on file documented as of this encounter Progress Notes Emily Shaikh MD - 03/20/2017 3:00 PM CST Doing well postop week 2.5 after temporal artery biopsy right side. Happy with outcome. Some minimalsoreness over incision site[facility] He is currently on Prednisone 60 mg and methotrexate. [facility]. He does have f/u with eye clinic and neurology Return as needed. Complete documentation of historical and exam elements from today's encounter can be found in the full encounter summary report (not reduplicated in this progress note). I personally obtained the chiefcomplaint(s) and history of present illness. I confirmed and edited as necessary the review of systems, past medical/surgical history, family history, social history, and examination findings as documented by others; and I examined the patient myself. I personally reviewed the relevant tests, images, and reports as documented above. I formulated and edited as necessary the assessment and plan and discussed the findings and management plan with the patient and family. - Emily Shaikh MD FILL GAS PLANT FIELD TECHNICIAN documented in this encounter Nursing Notes Bhupendra Jung COT - 03/20/2017 3:00 PM CST Chief Complaints and History of Present Illnesses Patient presents with ??? Post Op (Ophthalmology) Right Eye HPI Affected eye(s): Both Symptoms: No blurred vision Frequency: Constant Do you have eye pain now?: No Comments: 18 day postop s/p Right temporal artery biopsy 03/02/2017. [facility]. Still Sore. 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
--- OUTSIDE RECORDS SUMMARY | 2021-12-08 09:12 | XMS_ITS | Encounter Summary ---
:1945 Author Organization [place] Address [facility] [address] Care Team Providers Name Role Phone [facility] Primary Care Provider [phone] Encounter Details Date Type Department Care Team Description 02/28/2017 Allied Health/Nurse [facility] Preoperative Rn, Pac Visit Assessment Center [address] [place], [place] [id number] [phone] Social History Tobacco Use Types Packs/Day Years Used Date Smoking Tobacco: Never Smokeless Tobacco: Never Alcohol Use Standard Drinks/Week Comments No 0 (1 standard drink = 0.6 oz pure alcoho l) Sex Assigned at Date Recorded Not on file documented as of this encounter Patient Instructions Patient InstructionsTameka Bhardwaj RN - 02/28/2017 2:00 PM CST Preparing for Your Surgery Name: Corby Perry : 1945 Today's Date: 02/28/2017 Arriving for surgery: Surgery date: 03/02/17 Arrival time: 07:45 Please come to: [facility] [address] [place] [phone] Acid Dumper Parking is available in front of the Clinics and Surgery Center building from 5:30AM to 8:00PM. - Proceed to the 5th floor to check into the Ambulatory Surgery Center. >> There will be patient concierges on the 1st and 5th floor, for assistance or an escort, ifyou would like. >> Please call [phone] with any questions. What can I eat or drink? - You may have solid food or milk products until 8 hours prior to your surgery. - You may have water, apple juice or 7up/Sprite until 2 hours prior to your surgery. Which medicines can I take? - Do NOT take these medications in the morning, the day of surgery: Aspirin and supplements x 7 days before surgery, ibuprofen x 2 days before surgery, metformin and pioglitazone and lisinopril and lasix if normally taken in the morning - Please take these medications the day of surgery: Tylenol if needed, all other morning medications How do I prepare myself? - Take two showers: one the night before surgery; and one the morning of surgery. Use Scrubcare or Hibiclens to wash from neck down. You may use your own shampoo and conditioner. Noother hair products. - Do NOT use lotion, powder, deodorant, or antiperspirant the day of your surgery. - Do NOT wear any makeup, fingernail japanese or jewelry. - Begin using Incentive Spirometer 1 week prior to surgery. Use 4 times per day, up to 5 breaths each time. Bring Incentive Spirometer to hospital. -Do not bring your own medications to the hospital, except for inhalers and eye drops. - Bring your ID and insurance card. Questions or Concerns: If you have questions or concerns, please call the Preoperative Assessment Center, Sunday-Sunday 7AM-7PM: [phone] [employer] documented in this encounter Plan of Treatment Not on filedocumented as of this encounter Visit Diagnoses Not on filedocumented in this encounter Care Teams Sewing Machine Attachment Tester Relationship Specialty Start Date End Date [facility] PCP - General 01/19/17 [place] [address] documented as of this encounter
--- OUTSIDE RECORDS SUMMARY | 2021-12-08 09:12 | XMS_ITS | Encounter Summary ---
:1945 Author Organization [place] Address Replaced by [facility] [place] [address] Care Team Providers Name Role Phone [facility] Primary Care Provider [phone] Encounter Details Date Type Department Care Team Description 02/28/2017 Orders Only [facility] Preop general physical [address] [facility] SE exam 1st Floor [place], [place] [phone] Social History Tobacco Use Types Packs/Day [...] Name Priority Date/Time Associated Diagnosis Comme nts BASIC METABOLIC Routine 02/28/2017 3:10 PM Preop general Resul ts for this PANEL ACID SUPERVISOR physical exam procedure are in the results section. CBC WITH PLATELETS Routine 02/28/2017 3:10 PM Preop general Re sults for this ACID SUPERVISOR physical exam procedure are in the results section. documented in this encounter Results (ABNORMAL) CBC with platelets (02/28/2017 3:10 PM ACID SUPERVISOR) [facility] Method Time Signature WBC 6.3 4.0 - 11.0 02/28/2017 [facility] 10e9/L 3:44 PM [facility] RBC Count 5.13 4.4 - 5.9 02/28/2017 [facility] 10e12/L 3:44 PM [facility] Hemoglobin 13.9 13.3 - 02/28/2017 [facility] 17.7 g/dL 3:44 PM [facility] Hematocrit 44.2 40.0 - 02/28/2017 [facility] 53.0 % 3:44 PM [facility] MCV 86 78 - 100 02/28/2017 [facility] fl 3:44 PM [facility] MCH 27.1 26.5 - 02/28/2017 [facility] 33.0 pg 3:44 PM [facility] MCHC 31.4 (L) 31.5 - 02/28/2017 [facility] 36.5 g/dL 3:44 PM [facility] RDW 13.9 10.0 - 02/28/2017 [facility] 15.0 % 3:44 PM [facility] Platelet Count 253 150 - 450 02/28/2017 [facility] 10e9/L 3:44 PM [facility] Specimen Anatomical Collection Method Collection Time Receive d Time (Source) Location / / Volume Laterality Blood specimen 02/28/2017 3:10 PM 018 3:13 (specimen) ACID SUPERVISOR PM ACID SUPERVISOR Estela Ruth APRN SOCIAL MEDIA PROJECT MANAGER LAB - BLOOD ORDERABLES Performing Organization Address City/State/ZIP Code Phon e Number [address] [address] [facility] (ABNORMAL) Basic metabolic panel (02/28/2017 3:10 PM [facility]) [facility] Method Time Signature Sodium 135 133 - 144 02/28/2017 [facility] mmol/L 4:01 PM [facility] Potassium 4.2 3.4 - 5.3 02/28/2017 [facility] mmol/L 4:01 PM [facility] Chloride 99 94 - 109 02/28/2017 [facility] mmol/L 4:01 PM [facility] Carbon Dioxide 32 20 - 32 02/28/2017 [facility] mmol/L 4:01 PM [facility] Anion Gap 5 3 - 14 02/28/2017 [facility] mmol/L 4:01 PM [facility] Glucose 219 (H) 70 - 99 02/28/2017 [facility] mg/dL 4:01 PM [facility] Urea Nitrogen 14 7 - 30 02/28/2017 [facility] mg/dL 4:01 PM [facility] Creatinine 0.56 (L) 0.66 - 02/28/2017 [facility] 1.25 mg/dL 4:01 PM [facility] GFR Estimate >90 >60 02/28/2017 [place] [facility] mL/min/1.7 4:[address] Comment: Non GFR Calc GFR Estimate If >90 >60 mL/min/1.7m2 02/28/2017 4:01 P M [facility] Black [facility] Comment: GFR Calc Calcium 8.8 8.5 - 10.1 mg/dL 02/28/2017 4:01 PM [facility] Specimen Anatomical Collection Method Collection Time Receive d Time (Source) Location / / Volume Laterality Blood specimen 02/28/2017 3:10 PM 018 3:13 (specimen) ACID SUPERVISOR PM ACID SUPERVISOR Estela Ruth APRN SOCIAL MEDIA PROJECT MANAGER LAB - BLOOD ORDERABLES Performing Organization Address City/State/ZIP Code Phon e Number [address] [phone] [facility] documented in this encounter Visit Diagnoses Diagnosis Preop general physical exam Other specified pre-operative examinatio n documented in this encounter Care Teams Pasteurizer Helper Relationship Specialty Start Date End Date [facility] PCP - General 01/19/17 [address] [place], [place] [id number] documented as of this encounter
--- OUTSIDE RECORDS SUMMARY | 2021-12-08 09:13 | XMS_ITS | Encounter Summary ---
:1945 Author Organization [place] Address [facility]0 [facility] 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), right eye [place], [place] [phone] Social History Tobacco Use Types Packs/Day Years Used Date Smoking Tobacco: Never Smokeless Tobacco: Never Alcohol Use Standard Drinks/Week Comments No 0 (1 standard drink = 0.6 oz pure alcoho l) Sex Assigned at Date Recorded Not on file documented as of this encounter Plan of Treatment Not on filedocumented as of this encounter Procedures Procedure Name Priority Date/Time Associated Comments Diagnosis ERYTHROCYTE Routine 02/23/2017 11:43 NAION Results for this SEDIMENTATION RATE AM NURSES AIDE (non-arteritic procedu re are in AUTO anterior ischemic the result s optic neuropathy), section. right eye CRP INFLAMMATION Routine 02/23/2017 11:43 NAION Results for this AM NURSES AIDE (non-arteritic procedure are in anterior ischemic the result s optic neuropathy), section. right eye documented in this encounter Results (ABNORMAL) CRP inflammation (02/23/2017 11:43 AM NURSES AIDE) [facility] Method Time Signature CRP Inflammation 9.2 (H) 0.0 - 8.0 02/23/2017 [facility] F mg/L 12:06 PM NURSES AIDE [facility] [place] Specimen Anatomical Collection Method Collection Time Receive d Time (Source) Location / / Volume Laterality Blood specimen 02/23/2017 11:43 8 (specimen) AM NURSES AIDE 11:44 AM NURSES AIDE Gautam Landrum MD LAB - BLOOD ORDERABLES Performing Organization Address City/[facility]/ZIP Code Phon e Number [address] [address] [facility] Erythrocyte sedimentation rate auto (02/23/2017 11:43 AM NURSES AIDE) P athologist Signature Sed Rate 14 0 - 20 mm/h 02/23/2017 [facility] 1:02 PM NURSES AIDE [facility] Specimen Anatomical Collection Method Collection Time Receive d Time (Source) Location / / Volume Laterality Blood specimen 02/23/2017 11:43 8 (specimen) AM NURSES AIDE 11:44 AM NURSES AIDE Gautam Landrum MD LAB - BLOOD ORDERABLES Performing Organization Address City/[facility]/ZIP Code Phon e Number [address] [address] [facility] documented in this encounter Visit Diagnoses Diagnosis 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
--- OUTSIDE RECORDS SUMMARY | 2021-12-08 09:13 | XMS_ITS | Encounter Summary ---
:1945 Author Organization [place] Address [address] [place] [address]. [place] [address] Care Team Providers Name Role Phone [facility] Primary Care Provider [phone] Encounter Details Date Type Department Care Team Description 01/10/2017 Medical Correspondence [facility] Scan, REFERRAL ORDER Health Info Mgmt Non-Provider [facility] [address] [place] [address] Social History Tobacco Use Types Packs/Day Years Used Date Smoking Tobacco: Never Assessed Sex Assigned at Date Recorded Not on file documented as of this encounter Plan of Treatment Not on filedocumented as of this encounter Visit Diagnoses Not on filedocumented in this encounter Care Teams Accounting Analyst Relationship Specialty Start Date End Date [facility] PCP - General 01/19/17 [address] [place], [place] [id number] documented as of this encounter
--- OUTSIDE RECORDS SUMMARY | 2021-12-08 09:13 | XMS_ITS | Clinical Summary ---
:1945 Author Organization [facility] [place] [address] Care Team Providers Name Role Phone Giselle Martinez MD Primary Care Provider [phone] Allergies Active Allergy Reactions Severity Noted Date Comments Rivaroxaban Other - Describe In Comment Field Low 018 Medications Medication Sig Dispensed Refills Start Date End Date Status acetaminophen Take 500 mg by mouth 0 03/02/2017 Active (TYLENOL) 325 mg every 6 hours if tablet needed. citalopram (CELEXA) Take 20 mg by mouth 0 Active 20 mg tablet once daily. lidocaine 5% Apply 1 Patch on 0 Active (LIDODERM) 5 % patch dry, clean, hairless skin once daily. Leave on for only 12 hours and then remove and leave off for 12 hours medical supply, For personal use. 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 mcg/actuation inhaler cholecalciferol TAKE ONE TABLET BY 0 04/09/202103/23 Active (VITAMIN D3) 1,000 MOUTH EVERY DAY FOR 3 unit capsule VITAMIN D SUPPLEMENTATION atorvastatin Take 80 mg by mouth 0 12/27/2020 Active (LIPITOR) 80 mg at bedtime. tablet buPROPion Take 150 mg by mouth 0 2020 Active (WELLBUTRIN XL) 150 once daily. mg Extended-Release tablet docusate (COLACE) Take 100 mg by mouth 0 04/16/2021 Active 100 mg capsule 2 times daily if 3 needed. losartan (COZAAR) 50 Take 25 mg by mouth 0 1 Active mg tablet once daily. Artificial Tears, Place 1 Drop into 0 06/06/2021 Active polyvin alc, 1.4 % both eyes 3 times ophthalmic solution daily if needed. semaglutide Inject 1 mg 0 08/04/2020 Activ e (OZEMPIC) 1 mg/dose subcutaneous once (4 mg/3 mL) weekly. triamcinolone Apply topically to 0 06/06/2021 Active (ARISTOCORT) 0.1 % affected area(s) 2 ointment times daily if needed. Avoid face, groin and armpits vitamin E, Take 1 Capsule by 0 03/21/2021 Active dl,tocopheryl acet, mouth once daily. (Vitamin E, DL, Acetate,) 400 unit capsule aspirin (ECOTRIN) 81 Take 81 mg by mouth 0 2 Active mg enteric coated once daily. tablet bumetanide (BUMEX) 1 Take 1 mg by mouth 2 0 03/16/19 22 Active mg tablet times daily. metFORMIN (RIOMET) Take 10 mL by mouth 0 06/06/2021 Active 500 mg/5 mL liquid 2 times daily. saliva stimulant [place] 1-2 sprays in 0 Active comb. no.3 (Biotene mouth every hour as Moisturizing Mouth) needed for dry mouth spry ergocalciferol Take 50,000 units by 0 Active (VITAMIN D2; mouth every 4 weeks. DRISDOL) 50,000 unit capsule fluticasone (50 mcg Inhale 1 [place] into 0 Active per actuation) nasal affected nostril(s) solution (FLONASE) 2 times daily if needed for Rhinitis. hydrocortisone 2.5% Apply topically to 0 Active cream affected area(s) 3 times daily if needed for Itching. Apply thin layer to ankle ibuprofen (ADVIL; Take 600 mg by mouth 0 Active MOTRIN) 600 mg once daily if tablet needed. Maximum of 3200 mg in 24 hours. MULTIVITAMIN ORAL Take 1 Tablet by 0 Active mouth once daily. Sodium Fluoride 1.1 Apply to teeth. 0 Active % pste [place] small amount by mouth every morning and at bedtime on toothbrush, brush for 2 minutes emollient base Apply thin layer 0 Active (VANICREAM TOP) topically every day for dry skin - Apply to feet and legs rOPINIRole (REQUIP) Take 2 mg by mouth 3 0 Active 2 mg tablet times daily. oxyCODONE-acetaminop Take 2 Tablets by 40 Tablet 0 06/16/2021 Active hen (PERCOCET) 5-325 mouth 3 times daily. mg per May give extra 2 tabletIndications: tablets once daily Diabetic ulcer of as needed for severe right midfoot pain. associated with type 2 diabetes mellitus, with fat layer exposed (HC), S/P foot surgery, right, Chronic pain syndrome insulin aspart, Inject 0-6 units subcutaneou s 3 times daily before meals. Give subcutaneous TID with meals per blood glucose (mg/dL). Don't give corrective dose for PRN, post-prandial or nocturnal glucose checks unless ordered. 3 mL 0 06/16/2021 Active U-100, (NOVOLOG Blood Glucose.....Dose FLEXPEN) 100 unit/mL <70...............See Hypoglycemia Protocol (3 mL) 70-149..........No insulin, give prandial insulin, if ordere d penIndications: Type 150-199........1 unit 2 diabetes mellitus 200-249........2 units with Charcot's joint 250-299........3 units of right foot (HC) 300-349........4 units 350-399........5 units 400 or greater....6 units & call MD velazquez iodine Apply topically to 40 g 0 07/11/2021 Active (Iodosorb) 0.9 % affected area(s) gelIndications: Type once daily if needed 2 diabetes mellitus (apply to incision with Charcot's joint right foot every of right foot (HC), other day.). Diabetic ulcer of right midfoot associated with type 2 diabetes mellitus, with fat layer exposed (HC) durable medical SQUARED TOE POST OP 1 Each 0 09/01/2021 Active equipment SHOE, LARGE, REF: (DME)Indications: [id number] Diabetic ulcer of right midfoot associated with type 2 diabetes mellitus, with fat layer exposed (HC), Follow-up examination after orthopedic surgery, Dehiscence of operative wound, initial encounter durable medical SQUARED TOE POST OP 1 Each 0 10/13/2021 Active equipment GILLESE EDWIN, REF: (DME)Indications: [phone] Diabetic ulcer of right midfoot associated with type 2 diabetes mellitus, with fat layer exposed (HC), Follow-up examination after orthopedic surgery, 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 Essential tremor 06/13/2021 Interstitial lung disease 06/13/2021 Overview: Hemoptysis 2017, bronch 2018, presumed M TX toxicity Aortic valvar stenosis 06/13/2021 PVD (peripheral vascular disease) 06/13/2021 Overview: Angio 06/15/20, s/p atherectomy and ballo on angioplasty Chronic venous stasis 06/13/2021 Overview: H/o venous pump use History of pulmonary thrombosis 04/26/2021 Overview: 2018 Chronic heart failure with preserved ejection fraction 04/26/2021 Recurrent major depressive disorder, remission status unspecified 04/26/2021 Diabetic ulcer of right midfoot associated with type 2 diabetes mellitus, 02/21/2018 with fat layer exposed 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 02/21/2018 Encounters Date Type Specialty Care Team Description 12/08/2021 Telephone Obdulio Copeland, Form (R ecords about imaging DPM and wound relat ed) 12/07/2021 Telephone Obdulio Copeland, FYI (Wo und care ) DPM 12/01/2021 Office Visit Obdulio Copeland, Follow Up (Right diabetic DPM ulcer check) 12/01/2021 Travel 11/24/2021 Office Visit Obdulio Copeland, Follow Up (Right diabetic DPM ulcer check) 11/24/2021 Travel 11/17/2021 Office Visit Obdulio Copeland, Follow Up (Right foot/) DPM 11/17/2021 Travel 11/10/2021 Office Visit Obdulio Copeland, Ulcer ( Follow up-right foot) DPM 11/10/2021 Travel 10/27/2021 Office Visit Obdulio Copeland, Follow Up (Right diabetic DPM ulcer follow up ) 10/27/2021 Travel 10/13/2021 Office Visit Obdulio Copeland, Follow Up (Right foot, DPM diabetic ulcer ) 10/13/2021 Travel 10/06/2021 Office Visit Obdulio Copeland, Post-op (Right diabetic DPM ulcer follow up , Graft #2) 10/06/2021 Travel 09/29/2021 Office Visit Obdulio Copeland, Follow Up (Right foot DPM diabetic ulcer) 09/29/2021 Travel 09/22/2021 Office Visit Obdulio Copeland, Post-op (Right foot, DOS DPM 06/13/21, 14 wee ks post op) 09/22/2021 Travel 09/21/2021 Telephone Obdulio Copeland, SENDING UPDATED FAX DPM 09/15/2021 Telephone Obdulio Copeland, Appoint ment; Form (Epifix DPM and amnioexcel) 09/09/2021 Telephone Obdulio Copeland, Returni ng call DPM 09/08/2021 Office Visit Obdulio Copeland, Post-op (Right foot, 12 week DPM post op visit) 09/08/2021 Travel from Last 3 Months Immunizations Name Administration Dates Next Due COVID-19 vaccine (Pfizer-Planearth NETNTSolexel 12/02/2020, 04/09/2020, 30mcg/0.3mL) PF, MDV Influenza Virus, Unspecified 11/01/2020 Pneumococcal Poly,23-Valent (Pneumovax) 12/21/2016 Pneumococcal conj 13-Valent (Prevnar 13) 04/01/2015 Pneumococcal, Unspecified 11/20/2007, 06/12/2005 TD, UNSPECIFIED 07/02/2010, 11/19/2005, 12/11/2001 Tdap 07/30/2014 Zoster (Shingrix-RZV, recombinant) 04/19/2018, 02/18/2018 Zoster (Zostavax-ZVL, live) 02/11/2008 Family History Medical History Relation Name Comments Anesthesia Problem No Family History Social History Tobacco Use Types Packs/Day Years Used Date Former Smoker 0.25 0.5 Smokeless Tobacco: Never Used Tobacco Cessation: Counseling Given: Yes Comments: smoked a pack per week for 6 m [facility] at age 19 Alcohol Use Standard Drinks/Week Comments No 0 (1 standard drink = 0.6 oz pure alcoho l) Sex Assigned at Date Recorded Not on file COVID-19 Exposure Response Date Recorded In the last 10 days, have you been in contact with No / Unsu re 12/01/2021 3:32 PM CDT someone who was confirmed or suspected to have Coronavirus/COVID-19? Obstetrics History Last Filed Vital Signs Vital Sign Reading Time Taken Comments Blood Pressure 124/68 08/04/2021 1:55 PM CDT Pulse 70 12/01/2021 3:54 PM CDT Temperature 36.7 ??C (98 ??F) 11/17/2021 3:31 PM CDT Respiratory Rate 18 06/16/2021 7:28 AM CDT Oxygen Saturation 95% 12/01/2021 3:54 PM CDT Inhaled Oxygen Concentration - - Weight 110.4 kg (243 lb 6.4 oz) 12/01/2021 3:54 PM CDT Height 185.4 cm (6' 1) 06/13/2021 10:18 AM CDT Body Mass Index 32.11 06/13/2021 10:18 AM CDT Plan of Treatment Upcoming Encounters Date Type Specialty Care Team Description 12/22/2021 Office Visit Molina Copeland DPM [address] [place] [phone] (Wo rk) 01/05/2022 Office Visit Molina Copeland DPM [address] [phone] (Wo rk) 01/19/2022 Office Visit Molina Copeland DPM [address] [phone] (Wo rk) Health Maintenance Due Date Last Done Comments Depression screening for age 12+ 1958 Hepatitis C screening for age 1012/03/1964 18-79 Colonoscopy through age 75 12/04/1991 Lipids for age 45-75 12/04/1991 AAA screening age 55-77 2001 Medicare Wellness for age 65+ 12/04/2011 COVID-19 vaccine series (4 - 01/27/2021 12/02/2020, 021, Booster for Pfizer series) 03/16/2020 Influenza for age 65+ 10/20/2021 11/01/2020 BMI (ht and wt on same day) for 04/26/2022 04/26/2021 age 18+ Tetanus booster 07/30/2024 07/30/2014, 07/02/2010, 11/19/2005, Additional history exists Tdap Completed 07/30/2014 Pneumococcal series for age 65+ Completed 12/21/2016, 03/22, 11/20/2007, Additional history exists Zoster (shingles) series for age Completed 04/19/2018, , 50+ 02/11/2008 Results Not on filefrom Last 3 Months Insurance Payer Benefit Plan / Subscriber ID Effective Phone Address T ype Group Dates MEDICARE PART A - HB MEDICARE PART [id number] 2007-Prese ATTN: CLAIMS USE ONLY A HB ONLY nt [address] [place] [address] [employer] [place] [employer] [id number] 2019-Pres [place] CC[place] [employer] ent [address] [place] [id number] Advance Directives Latest Code Status on File Code Status Date Activated Date Inactivated Comments Full Code 06/13/2021 2:07 PM 06/16/2021 2:09 PM Code Status Discussion: Reviewed Preferences Full Code 06/13/2021 9:22 AM 06/13/2021 2:07 PM Code Status Discussion: Reviewed Preferences Care Teams Sdet Relationship Specialty Start Date End Date Giselle Martinez MD PCP - General Internal Medicine 04/13/[address] [facility] [place] [id number]
--- OUTSIDE RECORDS SUMMARY | 2021-12-08 09:13 | XMS_ITS | Encounter Summary ---
:1945 Author Organization [place] Address [address] [facility] [place] [address] Care Team Providers Name Role Phone Center, [facility] Primary Care Provider [phone] Reason for Visit Reason Comments New Patient [place] patient referred for doub le vision evaluation d/t optic nerve eversion Encounter Details Date Type Department Care Team Description 02/23/2017 Office Visit [facility] Eye Gautam Landrum (non- arteritic anterior ischemic optic neuropathy), right eye (Primary Dx); Clinic - Gustavo Valencia MD Abducens nerve palsy, left; [place] [id number] Senile nuclear sclerosis, bilateral Building [address] [address] [address] [address] [phone] [place], [place] (Work) [address] [phone] Social History Tobacco Use Types Packs/Day Years Used Date Smoking Tobacco: Never Smokeless Tobacco: Never Alcohol Use Standard Drinks/Week Comments No 0 (1 standard drink = 0.6 oz pure alcoho l) Sex Assigned at Date Recorded Not on file documented as of this encounter Progress Notes Gautam Landrum MD - 02/23/2017 9:00 AM CST ATTENDING ASSESSMENT AND PLAN: 1. Anterior ischemic optic neuropathy, right eye- nonarteritic versus arteritic- will obtain temporal artery biopsy given history, demographics, and diplopia. 2. 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 This is sufficient evidence given his atypical history that is compatible with giant cell arteritis to support treatment with corticosteroids. I will initiate this and request that the patient be set-up withrheumatology at the [place] for corticosteroid management and consideration of concomitant Actemra treatment. Corby Perry is a pleasant 71 year old White male who presents to my neuro- ophthalmology clinic today, referred by Dr Aguirre at the [place], for evaluation of diplopia. He reports double vision that started in October. Patient reports a few weeks before the onset of double vision, he was moving a dresser down the stairs and fell, hitting his tailbone but not his head. He reports that his vision was blurry a couple weeks later. He reports that diplopia was worse in right gaze. He feels that the diplopia is mostly resolved now. However, he notes the right right eye vision is blurrier than before. Past ocular history of accomodative esotropia at age 6. Resolved with hyperopic prescription. Past medical history significant for HTN, HLD, RAJESH, T2DM. Last A1C was 7.4, has had diabetes since . Has CPAP but does not use it. Takes anti-HTN at bed time. Smoked for 1 month in '. Had used Viagra several times in September. Took 3-4 100 mg Viagra pills in September 2016. 1 -1.5 weeks later noticed blurred vision in the right eye. Lumbar puncture 20 cm pressure with normal cerebrospinal fluid. MRI unremarkable x 2 per reports (10/28 and 01/03/17) was normal. January 05 2017 patient documented to have 3+ optic disc edema in the right eye and no swelling in the left eye. The patient was noted to have a right EXOTROPIA by several providers around that time. ESR / CRP around time of vision loss in the right eye was (15/2) Exam today shows best corrected visual acuity of 20/30 in the right eye and 20/25 in the left eye. He saw 11/ Ishihara color plates in both eyes. Motility was full in both eyes. Alternate cover testing showed 2 prism diopter esotropia in right gaze and 4-6 prism diopters esotropia in left gaze. Slitlamp exam was unremarkable in both eyes aside from moderate nuclear sclerotic cataracts. Dilated fundus exam showed resolving peripapillary hemorrhage in the right eye with trace residual edema. Cranial nerves V1-3, 7,8,9,11, and 12 were normal bilaterally. On OCT retinal nerve fiber layer 02/23/17, in the right eye , there is thinning superiorly in the right eye and thickening inferonasally. There is mild thickening diffusely in the left eye. Octopus automated 30 degree visual field shows an inferior arcuate scotoma in the right eye. The left eye is mostly full. In summary, this is a 71 year old male who had diplopia 4 months ago that is now essentially resolved- this diplopia preceded onset of optic disc edema and vision loss in the right eye. 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 Addendum (02/23/17): ESR / CRP 14/ 9.2 today. 9.2 is elevated based upon our lab's upper limit of normal = 8. Given diabetes mellitus and still relatively low risk for giant cell arteritis will defer corticosteroids until temporal artery biopsy results back. Addendum (03/05/17) Temporal artery biopsy came back showing full thickness transmural scarring indicating healed arteritis. In the context of his history this is diagnostic of giant cell arteritis. Will call patient and start him on Prednisone 60 mg daily. He will need to work with his primary care physician at the [place] to monitor his blood sugars which will surely elevate on corticosteroids. Will also recommend he see rheumatology in the [place] (or we can arrange at [facility] if [place] prefers). I spent a total of 60 minutes face to face with Corby Perry during today's office visit. Over 50% of this time was spent counseling the patient and/or coordinating care regarding his optic neuropathy and diplopia. Complete documentation of historical and exam elements [...] and management plan with the patient and family Gautam Landrum MD STRIPER documented in this encounter Nursing Notes Sabra Christie - 02/23/2017 9:00 AM CST Chief Complaints and History of Present Illnesses Patient presents with ??? [facility] evaluation d/t optic nerve eversion HPI Symptoms: Comments: New patient, 71 year old Male, [facility]. H/o of Diabetes type 2, diagnosed 1995. A1c started with a 9 and now is a 7; last A1c was 3 weeks ago at the [place]. Patient states horizontal diplopia that started on October 21, 2016. Patient states 5 days prior to starting to see double vision on 10/21/2016, he was moving a dresser down the stairs and slipped and bumped down the stairs. Patient states double vision is approximately 95% gone in the past 2 weeks. Patient states went through many testing to figure what caused the double at the [place]. -Spinal tab 2x, MRI 3x ( 1 head, 1 full body and dyes). -EKGs 2x Patient states [facility] thought it could have been a stroke but uncertain. Discussion of brain surgery as well. JUANITA Alegria 02/23/2017 8:46 AM STRIPER documented in this encounter Plan of Treatment Not on filedocumented as of this encounter Results (ABNORMAL) CRP inflammation (02/23/2017 11:43 AM AUTO STRIPER) [facility] Method Time Signature CRP Inflammation 9.2 (H) 0.0 - 8.0 02/23/2017 [facility] O F mg/L 12:06 PM AUTO STRIPER [facility] [place] Specimen Anatomical Collection Method Collection Time Receive d Time (Source) Location / / Volume Laterality Blood specimen 02/23/2017 11:43 8 (specimen) AM AUTO STRIPER 11:44 AM AUTO STRIPER Gautam Landrum MD LAB - BLOOD ORDERABLES Performing Organization Address City/State/ZIP Code Phon e Number [facility] [address] [place] [address] [facility] Erythrocyte sedimentation rate auto (02/23/2017 11:43 AM AUTO STRIPER) P athologist Signature Sed Rate 14 0 - 20 mm/h 02/23/2017 [facility] 1:02 PM AUTO STRIPER [facility] Specimen Anatomical Collection Method Collection Time Receive d Time (Source) Location / / Volume Laterality Blood specimen 02/23/2017 11:43 8 (specimen) AM AUTO STRIPER 11:44 AM AUTO STRIPER Gautam Landrum MD LAB - BLOOD ORDERABLES Performing Organization Address City/State/ZIP Code Phon e Number [address] [address] [facility] documented in this encounter Visit Diagnoses Diagnosis NAION (non-arteritic anterior ischemic o ptic neuropathy), right eye - Primary Ischemic optic neuropathy Abducens nerve palsy, left Senile nuclear sclerosis, bilateral documented in this encounter Care Teams Asset Availability Leader Relationship Specialty Start Date End Date [facility] PCP - General 01/19/17 [place], [place] [id number] documented as of this encounter
--- OUTSIDE RECORDS SUMMARY | 2021-12-08 09:13 | XMS_ITS | Encounter Summary ---
:1945 Author Organization [place] Address [facility] [place] [address] Care Team Providers Name Role Phone [facility] Primary Care Provider [phone] Encounter Details Date Type Department Care Team Description 02/23/2017 Orders Only M Karon Ophthalmolo Emily Ravi, Subjective visual [address] [facility] disturbance (Primary 4th Floor [address] [facility] [address]) [place] [id number] [phone] Social History Tobacco Use Types Packs/Day Years Used Date Smoking Tobacco: Never Smokeless Tobacco: Never Alcohol Use Standard Drinks/Week Comments No 0 (1 standard drink = 0.6 oz pure alcoho l) Sex Assigned at Date Recorded Not on file documented as of this encounter Plan of Treatment Scheduled Orders Name Type Priority Associated Diagnoses Order S chedule Harini-Operative Procedures Routine Subjective visual Ordered: 02/23/2017 Worksheet (Plastics) disturbance documented as of this encounter Visit Diagnoses Diagnosis Subjective visual disturbance - Primary Subjective visual disturbance, unspecifi ed documented in this encounter Care Teams Clinical Athletic Instructor Relationship Specialty Start Date End Date [facility] PCP - General 01/19/17 [place], [place] [id number] documented as of this encounter
--- OUTSIDE RECORDS SUMMARY | 2021-12-08 09:13 | XMS_ITS | Encounter Summary ---
:1945 Author Organization [place] Address [address] [place] [address] Care Team Providers Name Role Phone [place], [facility] Primary Care Provider [phone] Encounter Details Date Type Department Care Team Description 02/23/2017 Orders Only [facility] Eye Gautam Landrum Subjective visual disturbance (Primary Dx); Clinic - Gustavo Valencia MD Diplopia [address] [place] [address] Social History Tobacco Use Types [...] Name Priority Date/Time Associated Diagnosis Comme nts OCT OPTIC NERVE RNFL Routine 03/05/2017 3:24 PM Subjective vis ual Results for this SPECTRALIS OU (BOTH SELF STORAGE MANAGER disturbance procedure are in EYES) Diplopia the results section. GLAUCOMA TOP OU Routine 03/05/2017 3:23 PM Subjective visual R esults for this SELF STORAGE MANAGER disturbance procedure are in Diplopia the results section. SENSORIMOTOR Routine 03/05/2017 3:22 PM Diplopia Results for this SELF STORAGE MANAGER Subjective visual procedure are in disturbance the results section. documented in this encounter Results OCT Optic Nerve RNFL Spectralis OU (both eyes) (03/05/2017 3:24 PM SELF STORAGE MANAGER) Narrative Gautam Landrum MD - 01/15/2 018 3:24 PM SELF STORAGE MANAGER Performed by: tfw . Right Eye Reliability of the test: Good . Test Findings: Abnormal . Interpretation: Superior loss . Interpretation Free Text: ??inferior r etinal nerve fiber layer thickening and superior retinal nerve fiber layer l oss . Plan: Monitor . Interval: Initial . Left Eye Reliability of the test: Good . Test Findings: Normal . Interpretation: Normal . Interpretation Free Text: edema . Plan: Monitor . Interval: Initial . Gautam Landrum MD OPHTHALMOLOGY Glaucoma Top OU (03/05/2017 3:23 PM SELF STORAGE MANAGER) Narrative Gautam Landrum MD - 018 3:23 PM SELF STORAGE MANAGER Performed by: BD . Patient cooperation: Reliable . Good fix BE, not dilated. Right Eye Reliability of the test: Good . Test Findings Free Text: inferior arcu ate defect . Interpretation: Normal, Abnormal . Plan: Monitor . Interval: Initial . Left Eye Reliability of the test: Good . Findings: Visual dean normal . Interpretation: Normal . Plan: Monitor . Interval: Initial . Gautam Landrum MD OPHTHALMOLOGY Sensorimotor (03/05/2017 3:22 PM SELF STORAGE MANAGER) Narrative Gautam Landrum MD - 3:22 PM SELF STORAGE MANAGER Performed by: JUANITA Mayo Patient cooperation: Reliable . Reliability of the test: Good . Test Findings: Strabismus . Interpretation: Esotropia . Plan: Will monitor and consider eye mu scle surgery . Interval: Initial . Gautam Landrum MD OPHTHALMOLOGY documented in this encounter Visit Diagnoses Diagnosis Subjective visual disturbance - Primary Subjective visual disturbance, unspecifi ed Diplopia documented in this encounter Care Teams Bulb Sorter Relationship Specialty Start Date End Date [place], [facility] PCP - General 01/19/17 [place], [place] [id number] documented as of this encounter
== END 2021-12-08 09:02 | disposition home or self-care (01) ==
LOC: WOUND 09:10
PROVIDERS: PCP Podiatrist; Visit Provider Physician Assistant Surgical
DX: L97.415 Non-pressure chronic ulcer of right heel and midfoot with muscle involvement without evidence of necrosis (principal); E11.621 Type 2 diabetes mellitus with foot ulcer
CPT/HCPCS: 97597; 99202

== ENCOUNTER 2021-12-22 15:49 | Outpatient (CLI) | payer OTHER, SELFPAY ==
--- OUTSIDE RECORDS SUMMARY | 2021-12-22 15:52 | XMS_ITS | Encounter Summary ---
:1945 Author Organization [place] Address [facility] [place] [address] Care Team Providers Name Role Phone [facility] Primary Care Provider [phone] Encounter Details Date Type Department Care Team Description 02/28/2017 Allied Health/Nurse [facility] Preoperative Rn, Pac Visit Assessment Center [address] [place], [place] [phone] Social History Tobacco Use Types Packs/Day [...] 03/02/17 Arrival time: 07:45 Please come to: [facility] [address] [place] [phone] Vacuum Spindle Sander Parking is available in front of the Clinics and Surgery Center building from 5:30AM to 8:00PM. - Proceed to the 5th floor to check into the Ambulatory Surgery Center. >> There will be patient concierges on the 1st and 5th floor, for assistance or an escort, ifyou would like. >> Please call [phone] with any questions. What can I eat [...] - Do NOT wear any makeup, fingernail bhutanese or jewelry. - Begin using Incentive Spirometer [...] call the Preoperative Assessment Center, Sunday-Sunday 7AM-7PM: [phone] E PACKAGING MACHINES SETTER documented in this encounter Plan of Treatment Not on filedocumented as of this encounter Visit Diagnoses Not on filedocumented in this encounter Care Teams Noteman Relationship Specialty Start Date End Date [facility] PCP - General 01/19/17 [place] [address] documented as of this encounter
--- OUTSIDE RECORDS SUMMARY | 2021-12-22 15:52 | XMS_ITS | Encounter Summary ---
:1945 Author Organization [place] Address [address] [facility] [place] [address] Care Team Providers Name Role Phone [place], [facility] Primary Care Provider [phone] Reason for Visit Reason Onset Date Comments Patient Request 03/06/2017 Encounter Details Date Type Department Care Team Description 03/06/2017 Telephone [facility] Eye Gautam Landrum Patient Request Clinic - Gustavo Valencia MD [id number] [place] [address] N[facility] Clin [place] [phone] Social History Tobacco Use Types Packs/Day [...] 1615 Campbell Frazier RN 4:33 PM 03/06/17 NG COILING MACHINE SETTER Telephone Encounter - Campbell Frazier RN - 03/06/2017 2:56 PM CST calling as middle person to pt who was on her other line Asked if could talk to her /pt and provided the [phone] number. Asked to tell pt I will be calling in 30 seconds Called 3 times-- no answer and left voicemail with direct number Campbell Frazier RN 3:00 PM 03/06/17 NG COILING MACHINE SETTER documented in this encounter Plan of Treatment Not on filedocumented as of this encounter Visit Diagnoses Not on filedocumented in this encounter Care Teams Drafter Civil Engineering Relationship Specialty Start Date End Date Center, [facility] PCP - General 01/19/17 [place], [place] [phone] documented as of this encounter
--- OUTSIDE RECORDS SUMMARY | 2021-12-22 15:52 | XMS_ITS | Encounter Summary ---
:1945 Author Organization [place] Address [address] [place] [address] Care Team Providers Name Role Phone [facility] Primary Care Provider [phone] Encounter Details Date Type Department Care Team Description 03/06/2017 Orders Only [facility] Eye Gautam Landrum Giant cell arteritis Clinic [facility] MD Erik (H) Randall [address] [place] [address] Social History Tobacco Use Types [...] arteritis documented in this encounter Care Teams Powder Cutting Operator Relationship Specialty Start Date End Date [facility] PCP - General 01/19/17 [place] [address] documented as of this encounter
--- OUTSIDE RECORDS SUMMARY | 2021-12-22 15:52 | XMS_ITS | Encounter Summary ---
:1945 Author Organization [place] Address [address] [place] [address]. [place] [address] Care Team Providers Name Role Phone [facility] Primary Care Provider [phone] Encounter Details Date Type Department Care Team Description 01/10/2017 Medical Correspondence [facility] Scan, REFERRAL ORDER Health Info Mgmt Non-Provider [facility] Sr[facility] [address] [place] [address] Social History Tobacco Use Types Packs/Day Years Used Date Smoking Tobacco: Never Assessed Sex Assigned at Date Recorded Not on file documented as of this encounter Plan of Treatment Not on filedocumented as of this encounter Visit Diagnoses Not on filedocumented in this encounter Care Teams On Car Supervisor Relationship Specialty Start Date End Date [facility] PCP - General 01/19/17 [place], [place] [address] documented as of this encounter
--- OUTSIDE RECORDS SUMMARY | 2021-12-22 15:52 | XMS_ITS | Encounter Summary ---
:1945 Author Organization [place] Address [address] [facility] [place] [address] Care Team Providers Name Role Phone [facility] Primary Care Provider [phone] Encounter Details Date Type Department Care Team Description 03/06/2017 Orders Only [facility] Eye Gautam Landrum Giant cell arteritis Clinic [facility] MD Erik (H) (Primary Dx) Randall [address] Clin [address] [place] [address] Social History Tobacco Use Types [...] arteritis documented in this encounter Care Teams Onyx Chip Terrazzo Worker Relationship Specialty Start Date End Date [facility] PCP - General 01/19/17 One [place], [place] [address] documented as of this encounter
--- OUTSIDE RECORDS SUMMARY | 2021-12-22 15:52 | XMS_ITS | Encounter Summary ---
:1945 Author Organization [place] Address [address] [place] [address]. [place] [address] Care Team Providers Name Role Phone [facility] Primary Care Provider [phone] Encounter Details Date Type Department Care Team Description 03/02/2017 Hospital Encounter [facility] [place], Post-operative state Procedure Center MD Emily (Primary Dx) [address] [place] [phone] Social History Tobacco Use Types Packs/Day Years Used Date Smoking Tobacco: Never Smokeless Tobacco: Never Alcohol Use Standard Drinks/Week Comments No 0 (1 standard drink = 0.6 oz pure alcoho l) Sex Assigned at Date Recorded Not on file documented as of this encounter Last Filed Vital Signs Vital Sign Reading Time Taken Comments Blood Pressure 117/67 03/02/2017 9:56 AM WOOD DRILL OPERATOR Pulse 67 03/02/2017 7:41 AM WOOD DRILL OPERATOR Temperature 36.7 ??C (98 ??F) 03/02/2017 9:56 AM WOOD DRILL OPERATOR Respiratory Rate 16 03/02/2017 9:56 AM WOOD DRILL OPERATOR Oxygen Saturation 96% 03/02/2017 9:56 AM WOOD DRILL OPERATOR Inhaled Oxygen Concentration - - Weight 93 kg (205 lb) 03/02/2017 7:41 AM WOOD DRILL OPERATOR Height 185.4 cm (6' 1) 03/02/2017 7:41 AM WOOD DRILL OPERATOR Body Mass Index 27.05 03/02/2017 7:41 AM WOOD DRILL OPERATOR documented in this encounter Discharge Instructions Discharge Instructionsde Curtis Sauceda MD - 03/02/2017 9:51 AM WOOD DRILL OPERATOR Post-operative Instructions Ophthalmic Plastic and Reconstructive Surgery [...] stopped using narcotic pain medications (such as [place], Percocet, Tylenol #3). Medications ? Restart all your regular home medications and eye drops. If you take Plavix or Aspirin on a regular basis, wait for 72 hours after your surgery before restarting these in order todecrease the risk of bleeding complications. ? Avoid aspirin and aspirin-like medications (Motrin, Aleve, Ibuprofen, Giovana- [place] etc) for 72 hours to reduce the [...] 6 tablets of Darvocet, 12 tablets of [place], Percocet or Tylenol #3. If you take other szum-nbt-jbrnqyo medications containing acetaminophen, you must take the [...] If no appointment has been scheduled: - [facility] eye clinic: [phone] for an appointment with Dr. Shaikh within 1 to 2 weeks from your date of surgery. - [facility] eye clinic: [phone] for an appointment with Dr. Shaikh within 1 to2 weeks from your date of surgery. ? For severe pain, bleeding, or loss of vision, call the [facility] at [phone] or [facility] Clinic at [phone]. After hours or on weekends and holidays, call [phone] and ask to speak with the ophthalmologiston call. An fashion marketercall worker can be reached after hours for concerns. The fashion marketer doctor should not call in medication refill requests after hours or on weekends, so please plan accordingly. An effort has been made to provide adequate pain medications following every surgery, and refills will not be provided in most instances. Narcotic pain medications cannot be called in. [facility] Home [...] Your doctor is: Dr. Emily Shaikh, Ophthalmology: [phone] dial [phone] and ask for the resident fashion marketer for: {Ritika [facility] Emergency Department: [phone] (TTY for hearing impaired: [phone]) DRILL OPERATOR documented in this encounter Medications at Time [...] room in stable condition. Emily Shaikh MD DRILL OPERATOR Brief Op Note - Curtis Livingston MD - 03/02/2017 9:50 AM WOOD DRILL OPERATOR [employer] Brief Operative Note Pre-operative diagnosis: Rule Out Arteritis Post-operative diagnosis Same Procedure: Procedure(s): Right Temporal Artery Biopsy - Wound Class: I-Clean, Surgeon: Emily Shaikh MD Minute Clerk For Basic Traffic(s): Umm Pablo MD; Curtis Sharif MD Estimated blood loss: < 10 mL Specimens: None Findings: Consistent with diagnosis DRILL OPERATOR documented in this encounter Plan of Treatment Not on filedocumented as of this encounter Procedures Procedure Name Priority Date/Time Associated Diagnosis Comme nts SURGICAL PATHOLOGY Routine 03/02/2017 9:36 AM Res ults for this EXAM WOOD DRILL OPERATOR procedure are i n the results section. BIOPSY, ARTERY, 03/02/2017 9:05 AM Rule Out Arteritis TEMPORAL WOOD DRILL OPERATOR GLUCOSE BY METER Routine 03/02/2017 8:09 AM Post-operative sta te Results for this WOOD DRILL OPERATOR procedure are i n the results section. documented in this encounter Results Surgical pathology exam (03/02/2017 9:36 AM WOOD DRILL OPERATOR) Component Value Ref Test Analysis Performed Pathologis t Range Method Time At Signature Copath Patient Name: CORBY MOJICA Report MR#: [id number] Specimen #: [id number] Collected: 03/02/2017 Received: 03/02/2017 [...] in cassette A1. (Dictated by: Suzette [facility] 03/02/2017 10:19 AM) MICROSCOPIC: The tissue consists [...] active inflammation is identified. CPT Codes: A: 38410-ZJ5, 56780-EPTP TESTING LAB LOCATION: [facility], [address] ?? [address] COLLECTION SITE: Client: [facility] Location: [facility] (B) Specimen (Source) Anatomical Collection Method Collection Time Re ceived Time Location / / Volume Laterality Specimen from STRUCTURE OF 03/02/2017 9:36 unspecified body SUPERFICIAL AM WOOD DRILL OPERATOR site obtained by TEMPORAL ARTERY / biopsy (specimen) Unknown Narrative This result has an attachment that is no t available. Emily WOODS - SELINA JESSICA Performing Organization Address City/State/ZIP Code Phon e Number COPATH (ABNORMAL) Glucose by meter (03/02/2017 8:09 AM WOOD DRILL OPERATOR) P athologist Signature Glucose 188 (H) 70 - 99 03/02/2017 POINT OF CARE mg/dL 8:15 AM WOOD DRILL OPERATOR TEST, GLUCOSE Specimen Anatomical Collection Method Collection Time Receive d Time (Source) Location / / Volume Laterality 03/02/2017 8:09 AM 8 8:15 WOOD DRILL OPERATOR AM WOOD DRILL OPERATOR Emily WOODS - SELINA POCT Performing Organization [...] (TYLENOL) tablet 975 Given 03/02/2017 8:10 AM WOOD DRILL OPERATOR 975 mg mg 975 mg, Oral, ONCE, On Sun03/02/17 at 0730, For 1 dose, Maximum acetaminophen dose from all sources = 75 mg/kg/day not to exceed 4 grams/day., Pre-procedure lactated ringers infusion New Bag 03/02/2017 8:10 AM WOOD DRILL OPERATOR 25 mL/hr at 25 mL/hr, Intravenous, CONTINUOUS, IF patient NOT on dialysis., Pre-procedure, Starting on Sun03/02/17 at 0745, Until Sun03/02/17 at 0947 documented in this encounter Care Teams Falsework Builder Relationship Specialty Start Date End Date [place], [facility] PCP - General 01/19/17 [place] [address] documented as of this encounter
--- OUTSIDE RECORDS SUMMARY | 2021-12-22 15:52 | XMS_ITS | Encounter Summary ---
:1945 Author Organization [place] Address [address] [facility] 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 Corby Perry is a pleasant 71 year old White male who presents to my neuro- ophthalmology clinic today, referred by Dr Aguirre at the DC, for evaluation of diplopia. He reports double [...] with his primary care physician at the DC to monitor his blood sugars which will surely elevate on corticosteroids. Will also recommend he see rheumatology in the DC (or we can arrange at [facility] if DC prefers). I spent a total of 60 [...] the patient and family Gautam Landrum MD ONATION EQUIPMENT TENDER documented in this encounter Nursing Notes Sabra [...] A1c was 3 weeks ago at the DC. Patient states horizontal diplopia that started on [...] figure what caused the double at the DC. -Spinal tab 2x, MRI 3x ( 1 head, 1 full body and dyes). -EKGs 2x [facility] states [facility] thought it could have been a [facility] but uncertain. Discussion of brain surgery as well. JUANITA Alegria 02/23/2017 8:46 AM ONATION EQUIPMENT TENDER documented in this encounter Plan of Treatment Not on filedocumented as of this encounter Results (ABNORMAL) CRP inflammation (02/23/2017 11:43 AM CARBONATION EQUIPMENT TENDER) [facility] Method Time Signature CRP Inflammation 9.2 (H) 0.0 - 8.0 02/23/2017 UN[facility]ERSITY O F mg/L 12:06 PM CARBONATION EQUIPMENT TENDER [facility] [place] Specimen Anatomical Collection Method Collection Time Receive d Time (Source) Location / / Volume Laterality Blood specimen 02/23/2017 11:43 8 (specimen) AM CARBONATION EQUIPMENT TENDER 11:44 AM CARBONATION EQUIPMENT TENDER Gautam Landrum MD LAB - BLOOD ORDERABLES Performing Organization Address City/State/ZIP Code Phon e Number [facility] [address] [place] [address] [facility] Erythrocyte sedimentation rate auto (02/23/2017 11:43 AM CARBONATION EQUIPMENT TENDER) P athologist Signature Sed Rate 14 0 - 20 mm/h 02/23/2017 UN[facility]ERSITY 1:02 PM CARBONATION EQUIPMENT TENDER [facility] Specimen Anatomical Collection Method Collection Time Receive d Time (Source) Location / / Volume Laterality Blood specimen 02/23/2017 11:43 8 (specimen) AM CARBONATION EQUIPMENT TENDER 11:44 AM CARBONATION EQUIPMENT TENDER Gautam Landrum MD LAB - BLOOD ORDERABLES Performing Organization Address City/State/ZIP Code Phon e Number [address] [address] [facility] documented in this encounter Visit Diagnoses Diagnosis 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
--- OUTSIDE RECORDS SUMMARY | 2021-12-22 15:52 | XMS_ITS | Encounter Summary ---
:1945 Author Organization [place] Address On license of [facility]0 [facility] [place] [address] Care Team Providers Name Role Phone [facility] Primary Care Provider [phone] Encounter Details Date Type Department Care Team Description 02/23/2017 Orders Only [facility] Emily Ravi, Subjective visual [address] [facility] disturbance (Primary 4th Floor [address] [facility] [address] Dx) [place] [address] [phone] Social History Tobacco Use Types Packs/Day Years [...] ed documented in this encounter Care Teams Delinquency Prevention Officer Relationship Specialty Start Date End Date [facility] PCP - General 01/19/17 One [place], [place] [address] documented as of this encounter
--- OUTSIDE RECORDS SUMMARY | 2021-12-22 15:52 | XMS_ITS | Encounter Summary ---
:1945 Author Organization [place] Address [facility] [place] [address] Care Team Providers Name Role Phone [facility] Primary Care Provider [phone] Encounter Details Date Type Department Care Team Description 02/23/2017 Orders Only [facility] NAION (non-arteritic [address] anterior ischemic optic 1st Floor neuropathy), right eye [place], [place] [phone] Social History Tobacco Use [...] NAION Results for this SEDIMENTATION RATE AM MEDIA DIRECTOR (non-arteritic procedu re are in AUTO anterior ischemic the result s optic neuropathy), section. right eye CRP INFLAMMATION Routine 02/23/2017 11:43 NAION Results for this AM MEDIA DIRECTOR (non-arteritic procedure are in anterior ischemic the result s optic neuropathy), section. right eye documented in this encounter Results (ABNORMAL) CRP inflammation (02/23/2017 11:43 AM MEDIA DIRECTOR) [facility] Method Time Signature CRP Inflammation 9.2 (H) 0.0 - 8.0 02/23/2017 [facility]ITY O F mg/L 12:[address] [facility] [place] Specimen Anatomical Collection Method Collection Time Receive d Time (Source) Location / / Volume Laterality Blood specimen 02/23/2017 11:43 8 (specimen) AM MEDIA DIRECTOR 11:44 AM MEDIA DIRECTOR Gautam Landrum MD LAB - BLOOD ORDERABLES Performing Organization Address City/[facility]/ZIP Code Phon e Number [address] [address] [facility] Erythrocyte sedimentation rate auto (02/23/2017 11:43 AM MEDIA DIRECTOR) P athologist Signature Sed Rate 14 0 - 20 mm/h 02/23/2017 UN[facility]ERSITY 1:02 PM MEDIA DIRECTOR [facility] Specimen Anatomical Collection Method Collection Time Receive d Time (Source) Location / / Volume Laterality Blood specimen 02/23/2017 11:43 8 (specimen) AM MEDIA DIRECTOR 11:44 AM MEDIA DIRECTOR Gautam Landrum MD LAB - BLOOD ORDERABLES Performing Organization Address City/[facility]/ZIP Code Phon e Number [address] [address] [facility] documented in this encounter Visit Diagnoses Diagnosis 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
--- OUTSIDE RECORDS SUMMARY | 2021-12-22 15:52 | XMS_ITS | Continuity of Care Document ---
:1945 Author Organization [facility] Care Team Providers Name Role Phone [facility] Unavailable Unavailable Problems Combined list of problems from Department of Defense and [facility] Affairs facilities. It does not include entries that were removed or entered in error. Problem Status Onset Problem Date of Comments Source Date Type Resolution Allergic Rhinitis Active Condition [facility] Nos Aortic valve Active Condition Feb 07, [place] stenosis 2017 Entered [facility] By: TESSA BOONE Comment: mild; echo 12/06 Backache Nos Active Condition [facility] Benign familial Active Condition [facility] [facility] tremor Charcot's joint of Active Condition [place] foot [facility] Chronic ulcer of Active Condition [place] right foot due to [facility] diabetes mellitus Coronary artery Active Condition May 05, [place] disease 2019 Entered [facility] By: CARIDAD DENNIS Comment: STEMI; CABG x 4 (emergent) 05/06; EF 55% 12/06, hypotensive on ACEI, HFpEF Depression Active Condition [place] [facility] Diabetes mellitus Active Condition Nov 07, [place] 2020 Entered [facility] By: CARIDAD DENNIS Comment: neuropathy; foot ulcer with cuboid osteomyelitis 09/06Nov 07, 2020 Entered By: CARIDAD DENNIS Comment: Charcot arthropathy; PAVE Risk 3 Diabetes mellitus Active Condition [facility] (SNOMED CT 65569223) Essential Active Condition [facility] hypertension (SNOMED CT 92920644) Essential tremor Active Condition Jul 25, [place] 2017 Entered [facility] By: TESSA BOONE Comment: on propranolol Fatty Liver Active Condition [facility] Gastroesophageal Active Condition [facility] reflux disease [facility] Gerd Active Condition Jun 15, [facility] 2009 Entered By: JEEVAN SOSA Comment: had c scope 06/25 that was nl-was told to f/u in 5 yrs Headache Active Condition Nov 07, [place] 2020 Entered [facility] By: CARIDAD DENNIS Comment: 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 Entered [facility] By: TESSA BOONE Comment: right; probably ischemic 08/07 Osteoarthritis Active Condition Nov 07, [place] 2020 Entered [facility] By: CARIDAD DENNIS Comment: C-spine; L-spine; chronic low back pain on opioids Peripheral vascular Active Condition Nov 07, [place] disease 2020 Entered [facility] By: CARIDAD DENNIS Comment: angiogram 06/15/2020 atherectomy and balloon angioplasty Nov 07, 2020 Entered By: CARIDAD DENNIS Comment: chronic venous stasis, h/o venous pump use Primary insomnia [facility] (SNOMED CT 3420068) Pulmonary Active Condition May 05, [place] thromboembolism 2019 Entered [facility] By: CARIDAD DENNIS Comment: on CTA 07/06; possible ; xeralto -> inc LFT, not on anticoag 2/2 hemoptysis Recurrent major [facility] depressive disorder (SNOMED CT 84804155) Restless legs Active Condition Jan 30, [place] syndrome 2017 Entered [facility] By: TESSA BOONE Comment: on ropinirole Sciatica (SNOMED CT Active Condition [facility] [id number]) SCREENING-EYE COND Active Condition [facility] Sleep Apnea Active Condition [facility] Upper urinary tract Active Condition [facility] infection Venous Active Condition [facility] Insufficiency * (ICD-9-CM 459.81) Anemia Inactive Condition 11/07/2020 Jul 26, [place] 2017 Entered [facility] By: TESSA BOONE Comment: iron deficiency 08/06 [place] [facility] Inactive Condition 01/14/2010 [place] [facility] Deposits Inactive Condition 03/27/2018 [place] [facility]accretions[facility] teeth Dysphagia Inactive Condition 11/07/2020 Sep 24, [place] 2017 Entered [facility] By: TESSA BOONE Comment: EGD 11/06 Impotence of Inactive Condition 07/25/2017 [place] organic origin [facility] Open wound of toe Inactive Condition 07/25/2017 Dec 21, [place] 2016 Entered [facility] By: ADAN DAWSON Comment: L 2nd distal tuft/phalynx 2017 Primary erectile Inactive Condition 11/07/2020 [place] dysfunction [facility] Venous stasis Inactive Condition 11/07/2020 Oct 11, [place] 2017 Entered [facility] By: TESSA BOONE Comment: venous pump Wound infection Inactive Condition 10/09/2017 Jul 25, [place] 2017 Entered [facility] By: TESSA BOONE Comment: left leg vein harvest site 07/06 Diagnosis: Active Diagnosis [place] ICD-10-CM Z46.1 [facility] Encounter for fitting and adjustment of hearing aidwith Provider Comments: Encounter for fitting and adjustment of hearing aid Diagnosis: Active Diagnosis [place] ICD-10-CM M14.671 [facility] Charcot's joint, right ankle and footwith Provider Comments: Charcot's joint of foot ([facility] [id number]) Diagnosis: Active Diagnosis [place] ICD-10-CM L60.3 [facility] Nail dystrophywith Provider Comments: Nail dystrophy Diagnosis: Active Diagnosis [place] ICD-10-CM E11.43 [facility] Type 2 diabetes w diabetic autonomic (poly)neuropathywit h Provider Comments: Type 2 Diabetes Mellitus with Diabetic Autonomic (Poly)Neuropathy Diagnosis: Active Diagnosis [place] ICD-10-CM E11.621 [facility] Type 2 diabetes mellitus with foot ulcerwith Provider Comments: Type 2 Diabetes Mellitus with Foot Ulcer Diagnosis: Active Diagnosis [place] ICD-10-CM H90.3 [facility] Sensorineural hearing loss, bilateralwith Provider Comments: Sensorineural hearing loss, bilateral Diagnosis: Active Diagnosis [place] ICD-10-CM N52.8 [facility] Other male erectile dysfunctionwith Provider Comments: Other Male Erectile Dysfunction Diagnosis: Active Diagnosis [place] ICD-10-CM M14.672 [facility] Charcot's joint, left ankle and footwith Provider Comments: Charcot's Joint, left Ankle and Foot Diagnosis: Active Diagnosis [place] ICD-10-CM K08.89 [facility] Other specified disorders of teeth and supporting structureswith Provider Comments: Other specified Disorders of Teeth and Supporting Structures Diagnosis: Active Diagnosis [place] ICD-10-CM Z71.89 [facility] Other specified counselingwith Provider Comments: Other specified counseling Diagnosis: Active Diagnosis [place] ICD-10-CM R68.84 [facility] Jaw painwith Provider Comments: Jaw Pain Diagnosis: Active Diagnosis [place] ICD-10-CM I25.10 [facility] Athscl heart disease of inaja coronary artery w/o ang pctrswith Provider Comments: Coronary artery disease ([facility] [id number]) Diagnosis: Active Diagnosis [place] ICD-10-CM Z91.14 [facility] Patient's other noncompliance with medication regimenwith Provider Comments: Patient's other Noncompliance with Medication Regimen Diagnosis: Active Diagnosis [place] ICD-10-CM H04.123 [facility] Dry eye syndrome of bilateral lacrimal glandswith Provider Comments: Dry Eye Syndrome of Bilateral Lacrimal Glands Diagnosis: Active Diagnosis [place] ICD-10-CM R13.12 [facility] Dysphagia, oropharyngeal phasewith Provider Comments: Dysphagia, Oropharyngeal Phase Diagnosis: Active Diagnosis [place] ICD-10-CM M62.81 [facility] Muscle weakness (generalized)with Provider Comments: Muscle Weakness (Generalized) Diagnosis: Active Diagnosis [place] ICD-10-CM Z23 [facility] Encounter for immunizationwith Provider Comments: Encounter for Immunization Diagnosis: Active Diagnosis [place] ICD-10-CM Z48.00 [facility] Encounter for change or removal of nonsurg wound dressingwith Provider Comments: Encounter for Change or Removal of Nonsurgical Wound Dressing Diagnosis: Active Diagnosis [place] ICD-10-CM E08.8 [facility] CS Diabetes due to underlying condition w unsp complicationswith Provider Comments: Diabetes Mellitus due to Underlying Condition with unspecified Complications Diagnosis: Active Diagnosis [place] ICD-10-CM I35.0 [facility] Nonrheumatic aortic (valve) stenosiswith Provider Comments: Aortic valve stenosis (SCT [id number]) Diagnosis: Active Diagnosis [place] ICD-10-CM Z13.6 [place] [facility] Encounter for screening for cardiovascular disorderswith Provider Comments: Encounter for Screening for Cardiovascular Disorders Diagnosis: Active Diagnosis [place] ICD-10-CM M19.91 [facility] Primary osteoarthritis, unspecified sitewith Provider Comments: Osteoarthritis ([facility] [id number]) Diagnosis: Active Diagnosis [place] ICD-10-CM H52.4 [facility] Presbyopiawith Provider Comments: Presbyopia Diagnosis: Active Diagnosis [place] ICD-10-CM M14.671 [facility] Charcot's joint, right ankle and footwith Provider Comments: Charcot's Joint, right Ankle and Foot Diagnosis: Active Diagnosis [place] ICD-10-CM I50.9 [facility] Heart failure, unspecifiedwith Provider Comments: Heart failure ([facility] [id number]) Diagnosis: Active Diagnosis [place] ICD-10-CM Z86.31 [facility] Personal history of diabetic foot ulcerwith Provider Comments: Personal History of Diabetic Foot Ulcer Diagnosis: Active Diagnosis [place] ICD-10-CM Z96.1 [facility] Presence of intraocular lenswith Provider Comments: Pseudophakia Diagnosis: Active Diagnosis [place] ICD-10-CM L03.90 [facility] Cellulitis, unspecifiedwith Provider Comments: Cellulitis, unspecified Diagnosis: Active Diagnosis [place] ICD-10-CM H93.13 [facility] Tinnitus, bilateralwith Provider Comments: Tinnitus, bilateral Diagnosis: Active Diagnosis [place] ICD-10-CM L03.032 [facility] Cellulitis of left toewith Provider Comments: Cellulitis of left Toe Diagnosis: Active Diagnosis [place] ICD-10-CM E11.8 [facility] Type 2 diabetes mellitus with unspecified complicationswith Provider Comments: Diabetes mellitus ([facility] [id number]) Diagnosis: Active Diagnosis [place] ICD-10-CM L84 Corns [facility] and callositieswith Provider Comments: Corns and callosities Diagnosis: Active Diagnosis [place] ICD-10-CM L60.8 [facility] Other nail disorderswith Provider Comments: Other nail disorders Diagnosis: Active Diagnosis [place] ICD-10-CM R26.9 [facility] Unspecified abnormalities of gait and mobilitywith Provider Comments: Unspecified Abnormalities of Gait and Mobility Diagnosis: Active Diagnosis [place] ICD-10-CM G25.81 [facility] Restless legs syndromewith Provider Comments: Restless Legs Syndrome Diagnosis: Active Diagnosis [place] ICD-10-CM Z96.1 [facility] Presence of intraocular lenswith Provider Comments: Presence of intraocular lens Diagnosis: Active Diagnosis [place] ICD-10-CM I73.9 [facility] Peripheral vascular disease, unspecifiedwith Provider Comments: Peripheral vascular disease ([facility] [id number]) Diagnosis: Active Diagnosis [place] ICD-10-CM R04.2 [facility] Hemoptysiswith Provider Comments: Hemoptysis ([facility] [id number]) Diagnosis: Active Diagnosis [place] ICD-10-CM Z48.810 [facility] Encntr for surgical aftcr fol surgery on the sense organswith Provider Comments: Encntr for surgical aftcr fol surgery on the sense organs Diagnosis: Active Diagnosis [place] ICD-10-CM H01.009 [facility] Unspecified blepharitis unspecified eye, unspecified eyelidwith Provider Comments: Unspecified Blepharitis unspecified Eye, unspecified Eyelid Diagnosis: Active Diagnosis [place] ICD-10-CM H02.401 [facility] Unspecified ptosis of right eyelidwith Provider Comments: Unspecified ptosis of right eyelid Diagnosis: Active Diagnosis [place] ICD-10-CM Z01.818 [facility] Encounter for other preprocedural examinationwith Provider Comments: PreOp Exam Diagnosis: Active Diagnosis [place] ICD-10-CM Z71.89 [facility] Other specified counselingwith Provider Comments: Other specified Counseling Diagnosis: Active Diagnosis [place] ICD-10-CM K03.6 [facility] Deposits [accretions] on teethwith Provider Comments: Deposits [accretions] on teeth Diagnosis: Active Diagnosis [place] ICD-10-CM H02.834 [facility] Dermatochalasis of left upper eyelidwith Provider Comments: Dermatochalasis of left upper eyelid Diagnosis: Active Diagnosis [place] ICD-10-CM Z98.42 [facility] Cataract extraction status, left eyewith Provider Comments: Cataract Extraction Status, left Eye Diagnosis: Active Diagnosis [place] ICD-10-CM I73.9 [facility] Peripheral vascular disease, unspecifiedwith Provider Comments: Peripheral Vascular Disease, Unspecified Diagnosis: Active Diagnosis [place] ICD-10-CM E11.638 [facility] Type 2 diabetes mellitus with other oral complicationswith Provider Comments: Type 2 Diabetes Mellitus with other Oral Complications Diagnosis: Active Diagnosis [place] ICD-10-CM H25.812 [facility] Combined forms of age-related cataract, left eyewith Provider Comments: Diagnosis: Active Diagnosis [place] ICD-10-CM H26.8 [facility] Other specified cataractwith Provider Comments: Other specified Cataract Diagnosis: Active Diagnosis [place] ICD-10-CM Z74.09 [facility] Other reduced mobilitywith Provider Comments: Other Reduced Mobility Diagnosis: Active Diagnosis [place] ICD-10-CM H25.12 [facility] Age-related nuclear cataract, left eyewith Provider Comments: Age-related nuclear cataract, left eye Diagnosis: Active Diagnosis [place] ICD-10-CM H25.11 [facility] Age-related nuclear cataract, right eyewith Provider Comments: Age-related nuclear cataract, right eye Diagnosis: Active Diagnosis [place] ICD-10-CM G25.81 [facility] Restless legs syndromewith Provider Comments: Restless legs syndrome ([facility] [id number]) Diagnosis: Active Diagnosis [place] ICD-10-CM U07.1 [facility] COVID-19with Provider Comments: 2019-nCoV acute respiratory disease Diagnosis: Active Diagnosis [place] ICD-10-CM H25.13 [facility] Age-related nuclear cataract, bilateralwith Provider Comments: Age-related nuclear cataract, bilateral Diagnosis: Active Diagnosis [place] ICD-10-CM R26.89 [facility] Other abnormalities of gait and mobilitywith Provider Comments: Other abnormalities of gait and mobility Diagnosis: Active Diagnosis [place] ICD-10-CM Z74.09 [facility] Other reduced mobilitywith Provider Comments: Reduced Mobility Diagnosis: Active Diagnosis [place] ICD-10-CM I50.20 [facility] Unspecified systolic (congestive) heart failurewith Provider Comments: systolic (congestive) heart failure Medications Combined list of outpatient medications from Department of Defense and Veterans Affairs facilities. Medications provided include 1) outpatient medications from the last 15 months, and 2) patient-reported medications. Medication Details Route Status Patient Prescription Prescription Last Ordering Order Source Instructions Expires Number Dispense Provider Date Date acetaminoph TAKE ONE Active 07/30/2022 [id number] PARA DISE, 08/05/ [place] (U/D) TABLET 2 2021 [place] 500 MG ORAL BY MOUTH [facility] TAB EVERY 6 HOURS NEEDED FOR PAIN*NOT TO EXCEED 4000MG IN 24 HOURS FROM ALL SOURCES* acetaminoph TAKE ONE Discont 12/29/2021 [id number] PAR ADISE, 06/27/ [place] (U/D) TABLET inued 2 2021 olis 500 MG ORAL BY MOUTH [facility] TAB EVERY 6 HOURS NEEDED FOR PAIN*NOT TO EXCEED 4000MG IN 24 HOURS FROM ALL SOURCES* acetaminoph TAKE ONE Discont 11/09/2021 [id number] PAR ADISE, 12/19/ [place] (U/D) TABLET inued 1 CARIDAD2020 olis 500 MG ORAL BY MOUTH [facility] TAB EVERY 6 HOURS NEEDED FOR PAIN*NOT TO EXCEED 4000MG IN 24 HOURS FROM ALL SOURCES* ACETAMINOPH TAKE ONE ORALLY ACTIVE 07/30/2022 [id number] [place], 08/02/ [place] 500MG TABLET 2 2021 [place] TAB BY MOUTH [facility] EVERY 6 HOURS NEEDED FOR PAIN*NOT TO EXCEED 4000MG IN 24 HOURS FROM ALL SOURCES* ACETAMINOPH TAKE ONE ORALLY DISCONT 11/09/2021 [id number] [place], 11/09/ [place] 500MG TABLET INUED 1 CARIDAD2020 [place] TAB BY MOUTH [facility] EVERY 6 HOURS NEEDED FOR PAIN*NOT TO EXCEED 4000MG IN 24 HOURS FROM ALL SOURCES* ACETAMINOPH TAKE ONE ORALLY DISCONT 12/29/2021 [id number] [place], 12/28/ [place] 500MG TABLET INUED 2 2020 [place] TAB BY MOUTH [facility] EVERY 6 HOURS NEEDED FOR PAIN*NOT TO EXCEED 4000MG IN 24 HOURS FROM ALL SOURCES* Akwa Tears INSTILL Discont 08/05/2021 [id number] PARAD ISE, 06/28/ [place] or Eq. 1 DROP inued 2 2021 olis Solution IN BOTH [facility] 1.4% EYES Optical THREE TIMES A DAY NEEDED FOR DRY EYES ALBUTEROL INHALE 2 INHALA ACTIVE 07/30/2022 [id number] PA RADISE, 08/02/ [place] 90MCG/ACTUA PUFFS BY TION 2 2021 [place] [facility] T (CFC-F) INHALATI [facility] INHL,ORAL,8 ON FOUR .5GM DOSE TIMES A COUNTER DAY NEEDED FOR IMMEDIAT E RELIEF OF SHORTNES S OF BREATH *SHAKE WELL* ALBUTEROL INHALE 2 INHALA DISCONT 01/06/2022 [id number] P [place], 01/05/ [place] 90MCG/ACTUA PUFFS BY TION INUED 2 CARIDAD 2020 [facility] T (CFC-F) INHALATI [facility] INHL,ORAL,8 ON FOUR .5GM DOSE TIMES A COUNTER DAY NEEDED FOR IMMEDIAT E RELIEF OF SHORTNES S OF BREATH *SHAKE WELL* ALBUTEROL INHALE 2 INHALA DISCONT 01/13/2021 [id number] SIMON A,S 12/15/ [place] 90MCG/ACTUA PUFFS BY TION INUE 1 FOLLEY 2020 [facility] T (CFC-F) INHALATI HCS INHL,ORAL,8 ON FOUR .5GM DOSE TIMES A COUNTER DAY NEEDED FOR IMMEDIAT E RELIEF OF SHORTNES S OF BREATH *SHAKE WELL* Alcohol USE 1 Discont 04/08/2021 [id number] [place], 06/28/ [place] Antiseptic PAD inued 1 CARIDAD 2021 olis (Alcohol TOPICALL [facility] Swabs Eq.) Y Pads 70% DIRECTED Topical ALOE VESTA APPLY TO TOPICA DISCONT 08/05/2021 [id number] [place], 08/05/ [place] PROTECTIVE LEFT LLY INUE 1 CARIDAD 2020 [facility] OINT,TOP HEEL AND [facility] RIGHT FOOT TOPICALL Y SUNDAY, Y AND SUNDAY INSTRUCT ED FOR DRESSING CHANGES ALPROSTADIL INSERT 1 INTRAU DISCONT 09/21/2021 [id number] DARY,BRIGITTE 09/21/ [place] 500MCG SUPPOSIT RETHRA INUED 1 Y M 2020 [facility] SUPP,URETHR ORY L HCS AL INTRAURE THRAL NEEDED FOR ERECTILE DYSFUNCT ION- MAX USE OF 3 TIMES PER WEEK WITH AT LEAST 24 HOURS BETWEEN EACH USE. Amoxicillin TAKE 1 Discont 03/25/2021 [id number] TRAUT , 06/27/ [place] 875mg + TABLET inued 2 JOSE L 2021 olis Potassium BY MOUTH [facility] Clavulanate TWICE A 125mg, DAY Tablet, Oral AMOXICILLIN TAKE 1 ORALLY DISCONT 03/25/2021 [id number] TR AUT,ANÍBAL 02/23/ [place] TRIHYDRATE TABLET INUED 2 HARD L 2021 [facility] 875MG/CLAVU BY MOUTH [facility] LANATE K TWICE A 125MG TAB DAY AMOXICILLIN TAKE 1 ORALLY 09/27/2021 [id number] CU LLEN,CO 08/28/ [place] TRIHYDRATE TABLET 2 NSTANCE L 2021 [place] 875MG/CLAVU BY MOUTH HCS LANATE K TWICE A 125MG TAB DAY ASPIRIN TAKE ONE ORALLY ACTIVE 07/30/2022 [id number] [place]I SE, 08/28/ [place] 81MG TAB,EC TABLET 2 2021 [place] BY MOUTH [facility] EVERY DAY TO PREVENT HEART ATTACK DO NOT CHEW TO PREVENT HEART ATTACK DO NOT CHEW ASPIRIN TAKE ONE ORALLY DISCONT 08/05/2021 [id number] [place] AD[place], 08/13/ [place] 81MG TAB,EC TABLET INUED 2 2020 [place] BY MOUTH [facility] EVERY DAY TO PREVENT HEART ATTACK DO NOT CHEW TO PREVENT HEART ATTACK DO NOT CHEW ASPIRIN EC TAKE ONE Active 07/30/2022 [id number] PARAD ISE, 10/24/ [place] (U/D) 81 MG TABLET 2 2021 olis ORAL TBEC BY MOUTH [facility] EVERY DAY TO PREVENT HEART ATTACK DO NOT CHEW ASPIRIN EC TAKE ONE Discont 08/05/2021 [id number] PARA DISE, 06/27/ [place] (U/D) 81 MG TABLET inued 2 2021 olis ORAL TBEC BY MOUTH [facility] EVERY DAY TO PREVENT HEART ATTACK DO NOT CHEW atorvastati TAKE ONE Active 07/30/2022 [id number] PARA DISE, 08/05/ [place] n (U/D) 80 TABLET 2 2021 olis MG ORAL TAB BY MOUTH [facility] AT BEDTIME FOR CHOLESTE ROL AND HEART DISEASE atorvastati TAKE ONE Discont 08/12/2021 [id number] PAR ADISE, 06/28/ [place] n (U/D) 80 TABLET inued 2 CARIDAD2021 olis MG ORAL TAB BY MOUTH [facility] AT BEDTIME FOR CHOLESTE ROL AND HEART DISEASE ATORVASTATI TAKE ONE ORALLY ACTIVE 07/30/2022 [id number] [place], 08/02/ [place] 80MG TABLET 2 CARIDAD2021 [place] [facility] TAB BY MOUTH [facility] AT BEDTIME FOR CHOLESTE ROL AND HEART DISEASE ATORVASTATI TAKE ONE ORALLY DISCONT 08/12/2021 [id number] [place], 08/11/ [place] 80MG TABLET INUED 2 CARIDAD2020 [facility] [facility] TAB BY MOUTH [facility] AT BEDTIME FOR CHOLESTE ROL AND HEART DISEASE Benzonatate TAKE ONE 11/18/2021 [id number] SOR ENSON, [place] (Tessalon CAPSULE 2 [facility] 2021 olis [place]) BY MOUTH [facility] Capsule THREE Conventiona TIMES A l 100 mg DAY Oral NEEDED FOR COUGH BENZONATATE TAKE ONE ORALLY ACTIVE 01/18/2022 [id number] MAME, 12/19/ [place] 100MG CAP CAPSULE 2 [facility] 2021 [place] [facility] BY MOUTH [facility] THREE TIMES A DAY NEEDED FOR COUGH BENZONATATE TAKE ONE ORALLY DISCONT 11/18/2021 [id number] [place], 10/20/ [place] 100MG CAP CAPSULE INUED 2 [facility] 2021 [place] [facility] BY MOUTH [facility] THREE TIMES A DAY NEEDED FOR COUGH bumetanide TAKE ONE Active 07/30/2022 [id number] PARAD ISE, 08/05/ [place] (U/D) 1 MG TABLET 2 CARIDAD2021 olis ORAL TAB BY MOUTH [facility] TWICE A DAY FOR FLUID RETENTIO N bumetanide TAKE ONE Discont 08/06/2021 [id number] [place], 06/27/ [place] (U/D) 1 MG TABLET inued 2 MAREK L 2021 olis ORAL TAB BY MOUTH [facility] TWICE A DAY FOR FLUID RETENTIO N BUMETANIDE TAKE ONE ORALLY ACTIVE 07/30/2022 [id number] P [place], 08/02/ [place] 1MG TAB TABLET 2 [place] 2021 [place] [facility] BY MOUTH [facility] TWICE A DAY FOR FLUID RETENTIO N BUMETANIDE TAKE ONE ORALLY DISCONT 08/06/2021 [id number] URENA,CA 11/04/ [place] 1MG TAB TABLET INUED 2 LLIE L 2020 [facility] [facility] BY MOUTH [facility] TWICE A DAY FOR FLUID RETENTIO N BUPROPION TAKE ONE ORALLY ACTIVE 07/30/2022 [id number] PA RADISE, 08/25/ [place] HCL 150MG TABLET 2 CARIDAD 2021 [facility] 24HR TAB,SA BY MOUTH [facility] EVERY DAY BUPROPION TAKE ONE ORALLY DISCONT 08/05/2021 [id number] P [place]AD[place], 08/05/ [place] HCL 150MG TABLET INUED 2 2020 [facility] 24HR TAB,SA BY MOUTH [facility] EVERY DAY buPROPion TAKE ONE Active 07/30/2022 [id number] PARADI SE, 10/24/ [place] HCl XL 150 TABLET 2 CARIDAD2021 olis MG ORAL BY MOUTH [facility]24 EVERY DAY buPROPion TAKE ONE Discont 08/05/2021 [id number] PARAD ISE, 06/27/ [place] HCl XL 150 TABLET inued 2 2021 olis MG ORAL BY MOUTH [facility]24 EVERY DAY CADEXOMER APPLY TO TOPICA 08/10/2021 [id number] FB -STEENB 07/12/ [place] IODINE 0.9% INCISION LLY 2 LOCK,TREN 2021 O LIS VA GEL,TOP OF RIGHT T R HCS FOOT TOPICALL Y NEEDED EVERY OTHER DAY CADEXOMER APPLY TO 08/10/2021 [id number] FB-ST EENB 08/21/ [place] IODINE 0.9% INCISION 2 LOCK, 2021 olis TOP GEL [10 OF RIGHT MEHDI R [facility]AM C GM] FOOT TOPICALL Y NEEDED EVERY OTHER DAY carboxymeth INSTILL Active 07/30/2022 [id number] PARAD ISE, 08/05/ [place] ylcel 0.5% 1 DROP 2 2021 olis EYE DROP [2 IN BOTH [facility] X15ML] EYES FOUR TIMES A DAY FOR DRY EYES carboxymeth INSTILL Discont 08/12/2021 [id number] TUAN MAN, 06/28/ [place] ylcel 0.5% 1 DROP inued 1 IGNACIO L 2021 olis EYE DROP [2 IN BOTH VA X15ML] EYES FOUR TIMES A DAY FOR DRY EYES CARBOXYMETH INSTILL BOTH ACTIVE 07/30/2022 [id number] P ARADISE, 08/02/ [place] YLCELLULOSE 1 DROP EYES 2 CARIDAD 2021 OLIS VA NA 0.5% IN BOTH [facility] SOLN,OPH EYES FOUR TIMES A DAY FOR DRY EYES CARBOXYMETH INSTILL BOTH DISCONT 08/12/2021 [id number] C RAS,S 08/11/ [place] YLCELLULOSE 1 DROP EYES INUED 1 YDNI L 2020 OLIS V A NA 0.5% IN BOTH [facility] SOLN,OPH EYES FOUR TIMES A DAY FOR DRY EYES celeXA TAKE ONE Active 07/30/2022 [id number] [place], 08/05/ [place] (BRAND) 20 TABLET 2 CARIDAD 2021 olis MG ORALTAB BY MOUTH [facility] EVERY DAY FOR DEPRESSI ON celeXA TAKE ONE Discont 03/23/2022 [id number] [place] , 06/27/ [place] (BRAND) 20 TABLET inued 2 CARIDAD2021 olis MG ORALTAB BY MOUTH [facility] EVERY DAY FOR DEPRESSI ON celeXA TAKE ONE Discont 08/10/2021 [id number] [place] , 12/19/ [place] (BRAND) 20 TABLET inued 1 CARIDAD2020 olis MG ORALTAB BY MOUTH [facility] EVERY DAY FOR DEPRESSI ON cephALEXin TAKE ONE Discont 03/31/2021 [id number] JOPP A, 06/28/ [place] (U/D) 500 CAPSULE inued 2 AMARJIT 2021 olis MG ORAL CAP BY MOUTH [facility] FOUR TIMES A DAY CEPHALEXIN TAKE ONE ORALLY DISCONT 03/31/2021 [id number] J OPPA,NAM 03/01/ [place] 500MG CAP CAPSULE INUED 2 PHANIE 2021 OLIS VA BY MOUTH [facility] FOUR TIMES A DAY CHLORHEXIDI SWISH ORALLY 09/22/2021 [id number] FR ENCH,CH 09/08/ [place] NE AND SPIT 2 RISTOPHER 2021 OLIS VA GLUCONATE 1 J HCS 0.12% TABLESPO RINSE,ORAL ON ( 1/2 OUNCE = 15 ML) BY MOUTH TWICE A DAY AFTER BREAKFAS T AND BEFORE BEDTIME. FOR 7 DAYS Chlorhexidi SWISH 09/22/2021 [id number] GUINEAN , 09/10/ [place] ne AND SPIT 2 KYLE 2021 olis Gluconate, 1 ER [facility] 0.12%, TABLESPO Mouthwash ON ( 1/2 OUNCE = 15 ML) BY MOUTH TWICE A DAY AFTER BREAKFAS T AND BEFORE BEDTIME. FOR 7 DAYS CHOLECALCIF TAKE ONE Discont 04/10/2022 [id number] PAR ADISE, 06/27/ [place] (VIT D3) TABLET inued 2 2021 olis 1,000 UNIT BY MOUTH [facility] ORAL TAB EVERY DAY FOR VITAMIN D SUPPLEME NTATION CHOLECALCIF TAKE ONE ORALLY ACTIVE 10/21/2022 [id number] P ARADISE, 10/25/ [place] JUANA 25MCG TABLET 2 2021 OLIS VA (1,000UNIT) BY MOUTH [facility] TAB EVERY DAY FOR VITAMIN D SUPPLEME NTATION (REPLACE S ERGOCALC IFEROL) CHOLECALCIF TAKE ONE ORALLY DISCONT 04/10/2022 [id number] [place], 04/12/ [place] JUANA 25MCG TABLET INUED 2 2021 OLIS VA (1,000UNIT) BY MOUTH [facility] TAB EVERY DAY FOR VITAMIN D SUPPLEME NTATION CITALOPRAM TAKE ONE ORALLY ACTIVE 07/30/2022 [id number] P ARADISE, 08/19/ [place] HYDROBROMID TABLET 2 2021 OLIS VA E 20MG TAB BY MOUTH [facility] EVERY DAY FOR DEPRESSI ON CITALOPRAM TAKE ONE ORALLY DISCONT 08/10/2021 [id number] [place], 09/02/ [place] HYDROBROMID TABLET INUED 1 2020 OLIS VA E 20MG TAB BY MOUTH [facility] EVERY DAY FOR DEPRESSI ON CITALOPRAM TAKE ONE ORALLY DISCONT 03/23/2022 [id number] P ARADISE, [place] HYDROBROMID TABLET INUED 2 CARIDAD2021 OLIS VA E 20MG TAB BY MOUTH [facility] EVERY DAY FOR DEPRESSI ON CLEANSER,SK SPRAY TOPICA ACTIVE 07/30/2022 [id number] PARADI SE, 08/02/ [place] INTEGRITY TOPICALL LLY 2 CARIDAD2021 OLIS VA SPRAY,TOP Y [facility] DIRECTED FOR WOUND CARE Clotrimazol APPLY TO Active 07/30/2022 [id number] PARA DISE, [place] e (Lotrimin AFFECTED 2 2021 olis Eq.) Cream AREA [facility] 1% Topical TOPICALL Y TWICE A DAY 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 USE ONLY FOR FUNGAL INFECTIO NS Clotrimazol APPLY TO Discont 08/05/2021 [id number] PAR ADISE, 12/19/ [place] e (Lotrimin AFFECTED inued 1 2020 olis Eq.) Cream AREA [facility] 1% Topical TOPICALL Y TWICE A DAY 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 USE ONLY FOR FUNGAL INFECTIO NS CLOTRIMAZOL APPLY TO TOPICA ACTIVE 07/30/2022 [id number] [place], 08/02/ [place] E 1% AFFECTED LLY 2 2021 OLIS VA CREAM,TOP AREA [facility] TOPICALL Y TWICE A DAY 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 USE ONLY FOR FUNGAL INFECTIO NS CLOTRIMAZOL APPLY TO TOPICA DISCONT 08/05/2021 [id number] [place], 08/05/ [place] E 1% AFFECTED LLY INUED 1 2020 OLIS VA CREAM,TOP AREA [facility] TOPICALL Y TWICE A DAY 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 USE ONLY FOR FUNGAL INFECTIO NS CODEIN/guai TAKE 5 Discont 11/09/2021 [id number] PARAD ISE, 06/27/ [place] FEN ML TO 10 inued 2 CARIDAD2021 olis 10-100MG/5M ML BY [facility] L ORAL LIQD MOUTH THREE TIMES A DAY NEEDED FOR COUGH CODEIN/guai TAKE 5 Discont 06/17/2021 [id number] PARAD ISE, 05/11/ [place] FEN ML TO 10 inued 1 CARIDAD 2021 olis 10-100MG/5M ML BY [facility] L ORAL LIQD MOUTH THREE TIMES A DAY NEEDED FOR COUGH CODEIN/guai TAKE 5 Discont 02/04/2021 [id number] PARAD ISE, 12/19/ [place] FEN ML TO 10 inued 1 CARIDAD 2020 olis 10-100MG/5M ML BY [facility] L ORAL LIQD MOUTH THREE TIMES A DAY NEEDED FOR COUGH CODEINE TAKE 5 ORALLY ACTIVE 06/17/2022 [id number] PAR[place]ISE, 12/15/ [place] 10MG/GUAIFE ML TO 10 2 CARIDAD2021 OLIS VA NESIN ML BY [facility] 100MG/5ML MOUTH (SF & AF) TWICE A LIQUID DAY NEEDED FOR COUGH CODEINE TAKE 5 ORALLY DISCONT 01/29/2022 [id number] DIXIE E, 07/29/ [place] 10MG/GUAIFE ML TO 10 INUED 2 CARIDAD 2021 OLIS VA NESIN ML BY [facility] 100MG/5ML MOUTH (SF & AF) THREE LIQUID TIMES A DAY NEEDED FOR COUGH CODEINE TAKE 5 ORALLY DISCONT 06/17/2021 [id number] [place]ISE , 12/15/ [place] 10MG/GUAIFE ML TO 10 INUED 1 CARIDAD 2020 OLIS VA NESIN ML BY [facility] 100MG/5ML MOUTH (SF & AF) THREE LIQUID TIMES A DAY NEEDED FOR COUGH CODEINE TAKE 5 ORALLY DISCONT 11/09/2021 [id number] [place] , 05/09/ [place] 10MG/GUAIFE ML TO 10 INUED 2 CARIDAD 2021 OLIS VA NESIN ML BY [facility] 100MG/5ML MOUTH (SF & AF) THREE LIQUID TIMES A DAY NEEDED FOR COUGH CODEINE TAKE 5 ORALLY DISCONT 02/04/2021 [id number] DIXIE E, 08/04/ [place] 10MG/GUAIFE ML TO 10 INUE 1 CARIDAD 2020 OLIS VA NESIN ML BY [facility] 100MG/5ML MOUTH (SF & AF) THREE LIQUID TIMES A DAY NEEDED FOR COUGH COZAAR TAKE Active 07/30/2022 [id number] [place]ISE, / [place] (BRAND) 50 ONE-HALF 2 CARIDAD2021 olis MG ORAL TAB TABLET [facility] BY MOUTH EVERY DAY FOR HIGH BLOOD PRESSURE COZAAR TAKE Discont 01/18/2022 [id number] [place], 0 06/27/ [place] (BRAND) 50 ONE-HALF inued 2 CARIDAD2021 olis MG ORAL TAB TABLET [facility] BY MOUTH EVERY DAY FOR HIGH BLOOD PRESSURE COZAAR TAKE 03/28/2021 [id number] [place], 1 03/03/ [place] (BRAND) 50 ONE-HALF 1 2020 olis MG ORAL TAB TABLET [facility] BY MOUTH EVERY DAY FOR HIGH BLOOD PRESSURE CYANOCOBALA TAKE TWO Active 07/30/2022 [id number] PARA DISE, 08/05/ [place] MIN 1,000 TABLETS 2 2021 olis MCG ORAL BY MOUTH [facility] TAB EVERY WEEK FOR VITAMIN B12 SUPPLEME NT CYANOCOBALA TAKE TWO Discont 04/26/2022 [id number] PAR ADISE, 06/27/ [place] MIN 1,000 TABLETS inued 2 2021 olis MCG ORAL BY MOUTH [facility] TAB EVERY WEEK FOR VITAMIN B12 SUPPLEME NT CYANOCOBALA TAKE TWO 08/05/2021 [id number] PAR ADISE, 03/23/ [place] MIN 1,000 TABLETS 2 2021 olis MCG ORAL BY MOUTH [facility] TAB EVERY WEEK FOR VITAMIN B12 SUPPLEME NT CYANOCOBALA TAKE TWO ORALLY ACTIVE 07/30/2022 [id number] [place], 08/02/ [place] MIN 1000MCG TABLETS 2 2021 OLIS V A TAB BY MOUTH [facility] EVERY WEEK FOR VITAMIN B12 SUPPLEME NT CYANOCOBALA TAKE TWO ORALLY DISCONT 04/26/2022 [id number] [place], 07/21/ [place] MIN 1000MCG TABLETS INUED 2 2021 OLIS V A TAB BY MOUTH [facility] EVERY WEEK FOR VITAMIN B12 SUPPLEME NT CYANOCOBALA TAKE TWO ORALLY DISCONT 08/05/2021 [id number] [place], 08/05/ [place] MIN 1000MCG TABLETS INUE 2 2020 OLIS V A TAB BY MOUTH [facility] EVERY WEEK FOR VITAMIN B12 SUPPLEME NT DICLOFENAC APPLY 2 TOPICA ACTIVE 07/30/2022 [id number] PAR ADISE, 08/02/ [place] NA 1% GRAMS LLY 2 2021 OLIS VA GEL,TOP TOPICALL [facility] Y FOUR TIMES A DAY NEEDED TO AFFECTED AREA FOR PAIN. *USE DOSE CARD IN BOX TO MEASURE DOSE. MAX 32 GRAMS PER DAY. DICLOFENAC APPLY 4 DISCONT 10/18/2021 [id number] PARA DISE, 10/17/ [place] NA 1% GRAMS TO INUED 2 2020 OLIS VA GEL,TOP KNEE [facility] FOUR TIMES A DAY NEEDED FOR PAIN -USE DOSE CARD IN BOX TO MEASURE DOSE -MAXIMUM OF 32 GM PER DAY Diclofenac APPLY 2 Active 07/30/2022 [id number] PARADI SE, 08/05/ [place] Sodium GRAMS 2 2021 olis 0.01mg/mg, TOPICALL [facility] Gel/Jelly, Y FOUR Topical TIMES A DAY NEEDED TO AFFECTED AREA FOR PAIN. *USE DOSE CARD IN BOX TO MEASURE DOSE. MAX 32 GRAMS PER DAY. Diclofenac APPLY 4 Discont 10/18/2021 [id number] PARAD ISE, 06/27/ [place] Sodium GRAMS TO inued 2 2021 olis 0.01mg/mg, KNEE [facility] Gel/Jelly, FOUR Topical TIMES A DAY NEEDED FOR PAIN -USE DOSE CARD IN BOX TO MEASURE DOSE -MAXIMUM OF 32 GM PER DAY DOCUSATE TAKE ONE Discont 04/16/2022 [id number] PARADI SE, 06/27/ [place] (U/D) 100 CAPSULE inued 2 2021 olis MG ORAL CAP BY MOUTH [facility] TWICE A DAY *STOP IF HAVING DIARRHEA * DOCUSATE NA TAKE ONE ORALLY DISCONT 04/16/2022 [id number] [place]ISE, 04/19/ [place] 100MG CAP CAPSULE INUED 2 2021 OLIS VA BY MOUTH [facility] TWICE A DAY *STOP IF HAVING DIARRHEA * DOCUSATE NA TAKE 1 ORALLY ACTIVE 07/30/2022 [id number] PAR ADISE, 08/02/ [place] 50MG/SENNOS TABLET 2 CARIDAD 2021 OLIS VA IDES 8.6MG BY MOUTH [facility] TAB TWICE A DAY NEEDED FOR CONSTIPA TION STOP IF DIARRHEA OCCURS DOXYCYCLINE TAKE ONE ORALLY DISCONT 03/25/2021 [id number] TRAUT,ANÍBAL 02/23/ [place] HYCLATE TABLET INUED 2 HARD L 2021 OLIS VA 100MG TAB BY MOUTH HCS TWICE A DAY DOXYCYCLINE TAKE ONE ORALLY 01/08/2021 [id number] NOHELIA RICHEY 12/09/ [place] HYCLATE TABLET 1 T 2020 OLIS VA 100MG TAB BY MOUTH HCS TWICE A DAY FOR WOUND INFECTIO N Doxycycline TAKE ONE Discont 03/25/2021 [id number] TRA UT, 06/28/ [place] Tablet TABLET inued 2 JOSE L 2021 olis 100mg Oral BY MOUTH [facility] TWICE A DAY Doxycycline TAKE ONE 01/08/2021 [id number] DIANA ARLENE, 01/17/ [place] Tablet TABLET 1 FRANKLIN T 2020 olis 100mg Oral BY MOUTH [facility] TWICE A DAY FOR WOUND INFECTIO N EMPAGLIFLOZ TAKE Active 07/30/2022 [id number] DIXIE E, 10/24/ [place] IN 25 MG ONE-HALF 2 CARIDAD2021 olis ORAL TAB TABLET [facility] BY MOUTH EVERY MORNING FOR DIABETES EMPAGLIFLOZ TAKE Discont 06/14/2022 [id number] PARADI SE, 06/27/ [place] IN 25 MG ONE-HALF inued 2 CARIDAD 2021 olis ORAL TAB TABLET [facility] BY MOUTH EVERY MORNING FOR DIABETES EMPAGLIFLOZ TAKE Discont 08/12/2021 [id number] PARADI SE, 06/23/ [place] IN 25 MG ONE-HALF inued 2 CARIDAD 2021 olis ORAL TAB TABLET [facility] BY MOUTH EVERY MORNING FOR DIABETES EMPAGLIFLOZ TAKE ORALLY SUSPEND 07/30/2022 [id number] P ARADISE, 08/02/ [place] IN 25MG TAB ONE-HALF ED 2 2021 OLIS VA TABLET [facility] BY MOUTH EVERY MORNING FOR DIABETES EMPAGLIFLOZ TAKE ORALLY DISCONT 06/14/2022 [id number] P ARADISE, 07/27/ [place] IN 25MG TAB ONE-HALF INUED 2 CARIDAD2021 OLIS VA TABLET [facility] BY MOUTH EVERY MORNING FOR DIABETES EMPAGLIFLOZ TAKE ORALLY DISCONT 08/12/2021 [id number] PARAD ISE, 08/11/ [place] IN 25MG TAB ONE-HALF INUED 2 CARIDAD2020 OLIS VA TABLET [facility] BY MOUTH EVERY MORNING FOR DIABETES Ergocalcife TAKE ONE Active 07/30/2022 [id number] PARA DISE, 10/24/ [place] rol CAPSULE 2 2021 olis (Vitamin D BY MOUTH [facility] Eq.) EVERY Capsule MONTH Conventiona l 1.25 mg Oral Ergocalcife TAKE ONE Discont 08/05/2021 [id number] PAR ADISE, 06/28/ [place] rol CAPSULE inued 2 2021 olis (Vitamin D BY MOUTH [facility] Eq.) EVERY Capsule MONTH Conventiona l 1.25 mg Oral ERGOCALCIFE TAKE ONE ORALLY DISCONT 07/30/2022 [id number] [place], 09/01/ [place] ROL CAPSULE INUED 2 2021 OLIS VA 1,250MCG BY MOUTH [facility] (50,000UNIT EVERY ) CAP MONTH ERGOCALCIFE TAKE ONE ORALLY DISCONT 08/05/2021 [id number] [place], 09/16/ [place] ROL CAPSULE INUED 2 CARIDAD2020 OLIS VA 1,250MCG BY MOUTH [facility] (50,000UNIT EVERY ) CAP MONTH FERROUS SO4 TAKE ONE ORALLY DISCONT 08/10/2021 [id number] [place], [place] 325MG TAB TABLET INUED 1 2020 OLIS VA BY MOUTH [facility] EVERY DAY FOR ANEMIA (IRON) FLONASE-OTC SPRAY 1 Active 07/30/2022 [id number] PAR[place] ISE, 06/17/ [place] (BRAND) 50 PUFF 2 2021 olis MCG ELLE EACH [facility] SPSN [9.9] NOSTRIL IN EACH NOSTRIL TWICE A DAY FOR NASAL USE FLONASE-OTC SPRAY 1 Discont 08/05/2021 [id number] PARA DISE, 06/28/ [place] (BRAND) 50 PUFF inued 2 2021 olis MCG ELLE EACH [facility] SPSN [9.9] NOSTRIL IN EACH NOSTRIL TWICE A DAY FOR NASAL USE FLUTICASONE SPRAY 1 NASAL ACTIVE 07/30/2022 [id number] P ARADISE, 08/02/ [place] PROPIONATE PUFF 2 2021 OLIS VA 50MCG/SPRAY EACH [facility] SOLN,NASAL, NOSTRIL 16GM IN EACH NOSTRIL TWICE A DAY FOR NASAL USE FLUTICASONE SPRAY 1 NASAL DISCONT 08/05/2021 [id number] [place], 08/05/ [place] PROPIONATE PUFF INUED 2 2020 OL[facility] VA 50MCG/SPRAY EACH [facility] SOLN,NASAL, NOSTRIL 16GM IN EACH NOSTRIL TWICE A DAY FOR NASAL USE GABAPENTIN TAKE TWO ORALLY DISCONT 08/10/2021 [id number] [place], 09/28/ [place] 400MG CAP CAPSULES INUED 1 2020 OLIS VA BY MOUTH [facility] THREE TIMES A DAY FOR NEUROPAT HY GABAPENTIN TAKE TWO ORALLY DISCONT 08/05/2021 [id number] [place], 09/28/ [place] 400MG CAP CAPSULES INUE 1 2020 OLIS VA BY MOUTH [facility] THREE TIMES A DAY FOR NEUROPAT HY glipiZIDE TAKE ONE Active 07/30/2022 [id number] PARADI SE, 08/05/ [place] (U/D) 10 MG TABLET 2 2021 olis ORAL TAB BY MOUTH [facility] TWICE A DAY TAKE 30 MINUTES BEFORE MEAL FOR DIABETES glipiZIDE TAKE ONE Discont 08/05/2021 [id number] PARAD ISE, 06/27/ [place] (U/D) 10 MG TABLET inued 2 CARIDAD2021 olis ORAL TAB BY MOUTH [facility] TWICE A DAY TAKE 30 MINUTES BEFORE MEAL FOR DIABETES GLIPIZIDE TAKE ONE ORALLY ACTIVE 07/30/2022 [id number] PA RADISE, 08/02/ [place] 10MG TAB TABLET 2 2021 OLIS VA BY MOUTH [facility] TWICE A DAY TAKE 30 MINUTES BEFORE MEAL FOR DIABETES GLIPIZIDE TAKE ONE ORALLY DISCONT 08/05/2021 [id number] P ARADISE, 08/05/ [place] 10MG TAB TABLET INUED 2 CARIDAD2020 OLIS VA BY MOUTH [facility] TWICE A DAY TAKE 30 MINUTES BEFORE MEAL FOR DIABETES Hydrocortis APPLY Discont 12/15/2021 [id number] PARADI SE, 06/28/ [place] one THIN inued 2 2021 olis (ProctoCrea LAVER TO [facility] m-HC Eq.) ANKLE Cream 2.5% TOPICALL Topical Y THREE TIMES A DAY NEEDED FOR ITCHING Hydrocortis APPLY Discont 01/19/2021 [id number] PARADI SE, 12/18/ [place] one THIN inued 1 2020 olis (ProctoCrea LAVER TO [facility] m-HC Eq.) ANKLE Cream 2.5% TOPICALL Topical Y THREE TIMES A DAY NEEDED FOR ITCHING HYDROCORTIS APPLY TOPICA DISCONT 12/15/2021 [id number] P ARADISE, 12/23/ [place] ONE 2.5% THIN LLY INUED 2 CARIDAD 2020 OLIS VA CREAM,TOP LAVER TO [facility] ANKLE TOPICALL Y THREE TIMES A DAY NEEDED FOR ITCHING HYDROCORTIS APPLY TOPICA DISCONT 01/19/2021 [id number] PA RADISE, 01/19/ [place] ONE 2.5% THIN LLY INUE 1 2019 OL[facility] VA CREAM,TOP LAVER TO [facility] ANKLE TOPICALL Y THREE TIMES A DAY NEEDED FOR ITCHING Ibuprofen TAKE ONE 10/04/2021 [id number] IBRAH IM, 10/08/ [place] (Motrin) TABLET 2 ABDISAMAD 2021 olis Tablet 800 BY MOUTH [facility] mg Oral EVERY 8 HOURS FOR PAIN TAKE WITH FOOD Ibuprofen TAKE ONE Discont 12/29/2021 [id number] PARAD ISE, 01/09/ [place] (Motrin) TABLET inued 1 CARIDAD 2020 olis Tablet 800 BY MOUTH [facility] mg Oral THREE TIMES A DAY NEEDED FOR SEVERE ARTHRITI S PAIN *TAKE WITH FOOD IBUPROFEN TAKE ONE Active 07/30/2022 [id number] PARADI SE, 08/05/ [place] (U/D) 600 TABLET 2 2021 olis MG ORAL TAB BY MOUTH [facility] EVERY DAY NEEDED FOR JOINT PAIN TAKE WITH FOOD IBUPROFEN TAKE ONE Discont 03/23/2022 [id number] PARAD ISE, 06/27/ [place] (U/D) 600 TABLET inued 2 CARIDAD2021 olis MG ORAL TAB BY MOUTH [facility] EVERY DAY NEEDED FOR JOINT PAIN TAKE WITH FOOD IBUPROFEN TAKE ONE ORALLY ACTIVE 12/06/2022 [id number] PA RADISE, 12/07/ [place] 600MG TAB TABLET 2 2021 OLIS VA BY MOUTH [facility] EVERY DAY NEEDED FOR JOINT PAIN TAKE WITH FOOD IBUPROFEN TAKE ONE ORALLY DISCONT 07/30/2022 [id number] P ARADISE, 08/02/ [place] 600MG TAB TABLET INUED 2 CARIDAD 2021 OLIS VA BY MOUTH [facility] EVERY DAY NEEDED FOR JOINT PAIN TAKE WITH FOOD IBUPROFEN TAKE ONE ORALLY DISCONT 03/23/2022 [id number] PA RADISE, 03/23/ [place] 600MG TAB TABLET INUED 2 CARIDAD 2021 OLIS VA BY MOUTH [facility] EVERY DAY NEEDED FOR JOINT PAIN TAKE WITH FOOD IBUPROFEN TAKE ONE ORALLY DISCONT 12/29/2021 [id number] PA RADISE, 12/28/ [place] 800MG TAB TABLET INUED 1 CARIDAD2020 OLIS VA BY MOUTH [facility] THREE TIMES A DAY NEEDED FOR SEVERE ARTHRITI S PAIN *TAKE WITH FOOD IBUPROFEN TAKE ONE ORALLY 10/04/2021 [id number] IB RAHIM,A 09/04/ [place] 800MG TAB TABLET 2 BDISAMAD 2021 OLIS V A BY MOUTH HCS EVERY 8 HOURS FOR PAIN TAKE WITH FOOD Insulin INJECT 8 Active 07/30/2022 [id number] [place] , 08/03/ [place] Glargine UNITS 2 CARIDAD 2021 olis 100U/mL, UNDER [facility] Injection, THE SKIN Pen AT Injector BEDTIME FOR DIABETES DISPENSE WITH SOLSTAR PEN Insulin INJECT 8 Discont 01/25/2022 [id number] DIXIE E, 06/28/ [place] Glargine UNITS inued 2 CARIDAD 2021 olis 100U/mL, UNDER [facility] Injection, THE SKIN Pen AT Injector BEDTIME FOR DIABETES DISPENSE WITH SOLSTAR PEN INSULIN,GLA INJECT 8 SUBCUT ACTIVE 07/30/2022 [id number] P ARADISE, 08/01/ [place] RGINE,HUMAN UNITS ANEOUS 2 CARIDAD 2021 OLIS VA 100 UNIT/ML UND[facility] INJ,SOLOSTA THE SKIN R,3ML AT BEDTIME FOR DIABETES DISPENSE WITH SOLSTAR PEN INSULIN,GLA INJECT 8 SUBCUT DISCONT 01/25/2022 [id number] [place], 01/25/ [place] RGINE,HUMAN UNITS ANEOUS INUED 2 2020 OLIS VA 100 UNIT/ML [facility] INJ,SOLOSTA THE SKIN R,3ML AT BEDTIME FOR DIABETES DISPENSE WITH SOLSTAR PEN INV-CAPSS-0 TAKE ONE 09/17/2021 [id number] FB- STEENB 09/02/ [place] 43-Levoflox TABLET 2 2021 olis Tablet 500 BY MOUTH [facility] mg Oral EVERY DAY INV-CAPSS-0 TAKE ONE Discont 09/14/2021 [id number] FB- STEENB 09/02/ [place] 43-Levoflox TABLET inued 2 2021 olis Tablet 500 BY MOUTH [facility] mg Oral ONCE EVERY DAY FOR 7 DAYS IRX: TAKE ONE Active 07/30/2022 [id number] [place]ISE, 08/05/ [place] Tadalafil TABLET 2 CARIDAD 2021 olis 20 mg vs BY MOUTH [facility] Placebo AT Tablet Oral BEDTIME TAKE AT LEAST 30 MINUTES BEFORE ANTICIPA CARLO SEXUAL ACTIVITY . MAXIMUM 4 DOSES FOR 30-DAY SUPPLY IRX: TAKE ONE Discont 08/05/2021 [id number] [place], 06/28/ [place] Tadalafil TABLET inued 2 CARIDAD2021 olis 20 mg vs BY MOUTH [facility] Placebo AT Tablet Oral BEDTIME TAKE AT LEAST 30 MINUTES BEFORE ANTICIPA CARLO SEXUAL ACTIVITY . MAXIMUM 4 DOSES FOR 30-DAY SUPPLY IRX: TAKE ONE Discont 09/08/2021 [id number] [place], 06/27/ [place] Vitamin E CAPSULE inued 2 CARIDAD2021 olis (C.2004.167 BY MOUTH [facility] ) Capsule EVERY Conventiona DAY l 400 Internation al Units Oral Latanoprost INSTILL Discont 10/12/2021 [id number] KULE NKAMP 06/27/ [place] (Xalatan 1 DROP inued 1 , 2021 olis Eq.) IN LEFT E [facility] Solution EYE AT 0.005% BEDTIME Optical FOR GLAUCOMA REFRIGER ATE BOTTLE UNTIL OPENED. LATANOPROST INSTILL LEFT DISCONT 10/12/2021 [id number] K ULENKAMP 10/12/ [place] 0.005% 1 DROP EYE INUED 1 ,BRANDY E 2020 OLIS VA SOLN,OPH IN LEFT HCS EYE AT BEDTIME FOR GLAUCOMA REFRIGER ATE BOTTLE UNTIL OPENED. FOR GLAUCOMA REFRIGER ATE BOTTLE UNTIL OPENED. LEVOFLOXACI TAKE ONE ORALLY DISCONT 09/14/2021 [id number] FB-STEENB 08/15/ [place] N 500MG TAB TABLET INUED 2 LOCK,N 2021 MARK S VA BY MOUTH T R HCS ONCE EVERY DAY FOR 7 DAYS LEVOFLOXACI TAKE ONE ORALLY 09/17/2021 [id number] FB-STEENB 08/19/ [place] N 500MG TAB TABLET 2 LOCK,N 2021 MARK S VA BY MOUTH T R HCS EVERY DAY Lidocaine APPLY Discont 08/05/2021 [id number] [place] , 06/27/ [place] (Downey-Max MODERATE inued 2 CARIDAD2021 olis Eq.) Cream AMOUNT [facility] 4% Topical THREE TIMES A DAY NEEDED FOR PAIN CREAM Lidocaine APPLY 1 Active 07/12/2022 [id number] DIXIE E, 07/15/ [place] (Lidoderm PATCH 2 CARIDAD2021 olis Eq.) TOPICALL [facility] Transdermal Y EVERY System 5% DAY Topical NEEDED FOR PAIN. WEAR FOR ONLY 12 HOURS THEN REMOVE FOR 12 HOURS. Lidocaine APPLY 1 Discont 08/05/2021 [id number] PARADI SE, 06/28/ [place] (Lidoderm PATCH inued 2 CARIDAD2021 olis Eq.) EVERY [facility] Transdermal DAY FOR System 5% BACK Topical PAIN -WEAR FOR ONLY 12 HOURS AND THEN REMOVE AND LEAVE OFF FOR 12 HOURS LIDOCAINE APPLY TOPICA DISCONT 08/05/2021 [id number] PARADI SE, [place] 4% MODERATE LLY INUED 2 CARIDAD 2020 [facility] CREAM,TOP AMOUNT [facility] THREE TIMES A DAY NEEDED FOR PAIN CREAM LIDOCAINE 5 APPLY Active 07/12/2022 [id number] DIXIE E, 07/15/ [place] % TOP OINT MODERATE 2 CARIDAD2021 olis [30 GM] AMOUNT [facility] TOPICALL Y FOUR TIMES A DAY NEEDED FOR PAIN LIDOCAINE APPLY TOPICA ACTIVE 07/12/2022 [id number] PARADISE , 07/13/ [place] 5% OINT,TOP MODERATE LLY 2 CARIDAD 2021 [facility] AMOUNT [facility] TOPICALL Y FOUR TIMES A DAY NEEDED FOR PAIN LIDOCAINE APPLY 1 TOPICA ACTIVE 07/12/2022 [id number] PARADI SE, 07/13/ [place] 5% PATCH PATCH LLY 2 CARIDAD 2021 [facility] TOPICALL [facility] Y EVERY DAY NEEDED FOR PAIN. WEAR FOR ONLY 12 HOURS THEN REMOVE FOR 12 HOURS. LIDOCAINE APPLY 1 TOPICA DISCONT 08/05/2021 [id number] PA RADISE, 08/05/ [place] 5% PATCH PATCH LLY INUED 2 CARIDAD 2020 [facility] EVERY [facility] DAY FOR BACK PAIN -WEAR FOR ONLY 12 HOURS AND THEN REMOVE AND LEAVE OFF FOR 12 HOURS LOSARTAN TAKE ORALLY ACTIVE 07/30/2022 [id number] PARADISE , 09/05/ [place] 50MG TAB ONE-HALF 2 CARIDAD2021 [facility] TABLET [facility] BY MOUTH EVERY DAY FOR HIGH BLOOD PRESSURE LOSARTAN TAKE ORALLY DISCONT 01/18/2022 [id number] DIXIE E, 03/19/ [place] 50MG TAB ONE-HALF INUED 2 CARIDAD2021 [facility] TABLET [facility] BY MOUTH EVERY DAY FOR HIGH BLOOD PRESSURE LOSARTAN TAKE ORALLY DISCONT 03/28/2021 [id number] PARADISE , 12/29/ [place] 50MG TAB ONE-HALF INUE 1 CARIDAD2020 [facility] TABLET [facility] BY MOUTH EVERY DAY FOR HIGH BLOOD PRESSURE MELATONIN TAKE 2 ORALLY DISCONT 08/05/2021 [id number] PARADI SE, 08/05/ [place] 3MG CAP/TAB TABLETS INUED 1 CARIDAD2020 [facility] V A BY MOUTH [facility] AT BEDTIME FOR SLEEP METFORMIN TAKE TWO ORALLY DISCONT 08/05/2021 [id number] PA RADISE, 08/05/ [place] HCL TEASPOON INUED 2 CARIDAD2020 [facility] 500MG/5ML SFUL BY [facility] SOLN,ORAL MOUTH TWICE A DAY Metformin TAKE TWO Discont 08/05/2021 [id number] PARAD ISE, 06/27/ [place] Hydrochlori TEASPOON inued 2 CARIDAD2021 olis de SFUL BY [facility] 100mg/mL, MOUTH Solution, TWICE A Oral DAY miconazole USE TO Active 07/30/2022 [id number] DIXIE E, 08/05/ [place] nitrate 2 % AFFECTED 2 2021 olis TOP POWD AREA [facility] [85 GM] TOPICALL Y TWICE A DAY FOR FUNGAL INFECTIO N/GROIN RASH miconazole USE TO Discont 05/12/2021 [id number] PARADI SE, 06/27/ [place] nitrate 2 % AFFECTED inued 2 CARIDAD2021 olis TOP [facility] [facility] [85 GM] TOPICALL Y TWICE A DAY FOR FUNGAL INFECTIO N/GROIN RASH MICONAZOLE USE TO TOPICA ACTIVE 07/30/2022 [id number] PAR ADISE, 08/02/ [place] NITRATE 2% AFFECTED LLY 2 CARIDAD2021 OLIS V A PWDR,TOP AREA [facility] TOPICALL Y TWICE A DAY FOR FUNGAL INFECTIO N/GROIN RASH MICONAZOLE USE TO TOPICA DISCONT 05/12/2021 [id number] PAR ADISE, 05/12/ [place] NITRATE 2% AFFECTED LLY INUED 2 2020 OLIS V A PWDR,TOP AREA [facility] TOPICALL Y TWICE A DAY FOR FUNGAL INFECTIO N/GROIN RASH MULTIVITAMI TAKE 1 ORALLY ACTIVE 07/30/2022 [id number] PA RADISE, 08/02/ [place] NS TABLET 2 2021 [facility] W/MINERALS, BY MOUTH [facility] EVERY CAP/TAB DAY FOR FOLIC ACID AND IRON DEFICIEN CY (REPLACE S FERROUS SULFATE) MULTIVITAMI TAKE 1 ORALLY DISCONT 12/16/2021 [id number] PA RADISE, 12/17/ [place] NS TABLET INUED 2 2020 [facility] W/MINERALS, BY MOUTH [facility] EVERY CAP/TAB DAY FOR FOLIC ACID AND IRON DEFICIEN CY (REPLACE S FERROUS SULFATE) NALOXONE SPRAY 1 NOSTRI ACTIVE 07/12/2022 [id number] DIXIE E, 07/13/ [place] [facility] DOSE IN L 2 2021 [facility] 4MG/SPRAY [facility] SOLN,SPRAY, NOSTRIL NASAL DIRECTED FOR UNRESPON SIVENESS (FOR NARCOTIC OVERDOSE ) THEN CALL 911 - IF NO CHANGE IN 2-3 MINUTES, GIVE SECOND DOSE IN OPPOSITE NOSTRIL Oxycodone 5 TAKE 2 10/23/2020 [id number] [facility] ISE, 10/27/ [place] mg/Acetamin TABLETS 1 2020 [facility] ophen 325 BY MOUTH [facility] mg Tablet TWICE A Oral DAY NEEDED FOR SEVERE FOOT PAIN -DO NOT EXCEED 4000MG OF ACETAMIN OPHEN IN 24 HOURS FROM ALL SOURCES Oxycodone 5 TAKE 2 11/09/2021 [id number] [facility] ISE, 10/17/ [place] mg/Acetamin TABLETS 2 2021 [facility] ophen 325 BY MOUTH [facility] mg Tablet THREE Oral TIMES A DAY FOR SEVERE FOOT PAIN Oxycodone 5 TAKE 2 Discont 10/15/2021 [id number] [facility] ISE, 10/17/ [place] mg/Acetamin TABLETS inued 2 2021 [facility] ophen 325 BY MOUTH [facility] mg Tablet THREE Oral TIMES A DAY FOR SEVERE FOOT PAIN Oxycodone 5 TAKE 2 Discont 09/16/2021 [id number] [facility] ISE, 09/18/ [place] mg/Acetamin TABLETS inued 2 CARIDAD2021 olis ophen 325 BY MOUTH [facility] mg Tablet THREE Oral TIMES A DAY FOR SEVERE FOOT PAIN Oxycodone 5 TAKE 2 08/10/2021 [id number] [facility] ISE, 08/21/ [place] mg/Acetamin TABLETS 2 2021 ol[facility] ophen 325 BY MOUTH [facility] mg Tablet THREE Oral TIMES A DAY FOR SEVERE FOOT PAIN Oxycodone 5 TAKE 2 Discont 06/18/2021 [id number] [facility] ISE, 06/28/ [place] mg/Acetamin TABLETS inued 2 2021 ol[facility] ophen 325 BY MOUTH [facility] mg Tablet THREE Oral TIMES A DAY FOR SEVERE FOOT PAIN Oxycodone 5 TAKE 2 Discont 05/25/2021 [id number] [facility] ISE, 05/22/ [place] mg/Acetamin TABLETS inued 2 2021 ol[facility] ophen 325 BY MOUTH [facility] mg Tablet THREE Oral TIMES A DAY FOR SEVERE FOOT PAIN Oxycodone 5 TAKE 2 04/16/2021 [id number] [facility] ISE, 04/25/ [place] mg/Acetamin TABLETS 2 2021 ol[facility] ophen 325 BY MOUTH [facility] mg Tablet THREE Oral TIMES A DAY FOR SEVERE FOOT PAIN Oxycodone 5 TAKE 2 03/24/2021 [id number] [facility] ISE, 03/06/ [place] mg/Acetamin TABLETS 2 2021 olis ophen 325 BY MOUTH [facility] mg Tablet THREE Oral TIMES A DAY FOR SEVERE FOOT PAIN Oxycodone 5 TAKE 2 Discont 02/23/2021 [id number] [facility] ISE, 03/06/ [place] mg/Acetamin TABLETS inued 1 2021 ol[facility] ophen 325 BY MOUTH [facility] mg Tablet THREE Oral TIMES A DAY FOR SEVERE FOOT PAIN Oxycodone 5 TAKE 2 01/14/2021 [id number] [facility] ISE, 12/19/ [place] mg/Acetamin TABLETS 1 CARIDAD2020 olis ophen 325 BY MOUTH [facility] mg Tablet THREE Oral TIMES A DAY NEEDED FOR SEVERE FOOT PAIN -LOWER TO 2 TABLETS TWICE A DAY TOLERATE D -DO NOT EXCEED 4000MG OF ACETAMIN OPHEN IN 24 HOURS FROM ALL SOURCES Oxycodone 5 TAKE 2 Discont 12/22/2020 [id number] [facility] ISE, 12/19/ [place] mg/Acetamin TABLETS inued 1 CARIDAD2020 olis ophen 325 BY MOUTH [facility] mg Tablet TWICE A Oral DAY NEEDED FOR SEVERE FOOT PAIN -DO NOT EXCEED 4000MG OF ACETAMIN OPHEN IN 24 HOURS FROM ALL SOURCES Oxycodone 5 TAKE 2 Discont 11/25/2020 [id number] [facility] ISE, 11/24/ [place] mg/Acetamin TABLETS inued 1 2020 olis ophen 325 BY MOUTH [facility] mg Tablet TWICE A Oral DAY NEEDED FOR SEVERE FOOT PAIN -DO NOT EXCEED 4000MG OF ACETAMIN OPHEN IN 24 HOURS FROM ALL SOURCES OXYCODONE TAKE 2 ORALLY ACTIVE 01/11/2022 [id number] DIXIE E, 12/14/ [place] [facility] TABLETS 2 CARIDAD2021 [facility] 5MG/ACETAMI BY M[facility]TH [facility] NOPHEN THREE 325MG TAB TIMES A DAY FOR SEVERE FOOT PAIN OXYCODONE TAKE 2 ORALLY DISCONT 12/16/2021 [id number] [facility] SE, 11/16/ [place] [facility] TABLETS INUED 2 CARIDAD2021 [facility] 5MG/ACETAMI BY MOUTH [facility] NOPHEN THREE 325MG TAB TIMES A DAY FOR SEVERE FOOT PAIN OXYCODONE TAKE 2 ORALLY DISCONT 10/15/2021 [id number] [facility] SE, 09/15/ [place] [facility] TABLETS INUED 2 CARIDAD 2021 [facility] 5MG/ACETAMI BY MOUTH [facility] NOPHEN THREE 325MG TAB TIMES A DAY FOR SEVERE FOOT PAIN OXYCODONE TAKE 2 ORALLY DISCONT 09/16/2021 [id number] [facility] SE, 08/18/ [place] [facility] TABLETS INUED 2 CARIDAD 2021 [facility] 5MG/ACETAMI BY MOUTH [facility] NOPHEN THREE 325MG TAB TIMES A DAY FOR SEVERE FOOT PAIN OXYCODONE TAKE 2 ORALLY DISCONT 06/18/2021 [id number] [facility] SE, 05/26/ [place] [facility] TABLETS INUED 2 CARIDAD 2021 [facility] 5MG/ACETAMI BY MOUTH [facility] NOPHEN THREE 325MG TAB TIMES A DAY FOR SEVERE FOOT PAIN OXYCODONE TAKE 2 ORALLY DISCONT 05/25/2021 [id number] [facility] SE, 04/29/ [place] [facility] TABLETS INUED 2 CARIDAD 2021 [facility] 5MG/ACETAMI BY MOUTH [facility] NOPHEN THREE 325MG TAB TIMES A DAY FOR SEVERE FOOT PAIN OXYCODONE TAKE 2 ORALLY DISCONT 03/24/2021 [id number] [facility] SE, 03/04/ [place] [facility] TABLETS INUE 2 CARIDAD 2021 [facility] 5MG/ACETAMI BY MOUTH [facility] NOPHEN THREE 325MG TAB TIMES A DAY FOR SEVERE FOOT PAIN OXYCODONE TAKE 2 ORALLY DISCONT 02/23/2021 [id number] [facility] SE, 02/05/ [place] [facility] TABLETS INUE 1 CARIDAD 2020 [facility] 5MG/ACETAMI BY MOUTH [facility] NOPHEN THREE 325MG TAB TIMES A DAY FOR SEVERE FOOT PAIN OXYCODONE TAKE 1 ORALLY DISCONT 02/13/2021 [id number] [facility] SE, 01/15/ [place] [facility] TABLET INUED 1 CARIDAD 2020 [facility] 5MG/ACETAMI BY MOUTH (EDIT) [facility] NOPHEN FOUR 325MG TAB TIMES A DAY NEEDED FOR SEVERE FOOT PAIN OXYCODONE TAKE 2 ORALLY DISCONT 01/14/2021 [id number] [facility] SE, 12/15/ [place] [facility] TABLETS INUED 1 CARIDAD 2020 [facility] 5MG/ACETAMI BY MOUTH (EDIT) [facility] NOPHEN THREE 325MG TAB TIMES A DAY NEEDED FOR SEVERE FOOT PAIN -LOWER TO 2 TABLETS TWICE A DAY TOLERATE D -DO NOT EXCEED 4000MG OF ACETAMIN OPHEN IN 24 HOURS FROM ALL SOURCES OXYCODONE TAKE 2 ORALLY DISCONT 12/22/2020 [id number] [facility] SE, 11/23/ [place] [facility] TABLETS INUE 1 CARIDAD2020 [facility] 5MG/ACETAMI BY [facility]OUTH [facility] NOPHEN TWICE A 325MG TAB DAY NEEDED FOR SEVERE FOOT PAIN -DO NOT EXCEED 4000MG OF ACETAMIN OPHEN IN 24 HOURS FROM ALL SOURCES OXYCODONE TAKE 2 ORALLY DISCONT 11/25/2020 [id number] [facility] SE, 10/26/ [place] [facility] TABLETS INUE 1 CARIDAD 2020 [facility] 5MG/ACETAMI BY MOUTH [facility] NOPHEN TWICE A 325MG TAB DAY NEEDED FOR SEVERE FOOT PAIN -DO NOT EXCEED 4000MG OF ACETAMIN OPHEN IN 24 HOURS FROM ALL SOURCES OXYCODONE TAKE 2 ORALLY 11/09/2021 [id number] [facility] SE, 10/13/ [place] [facility] TABLETS 2 2021 [facility] 5MG/ACETAMI BY MOUTH [facility] NOPHEN THREE 325MG TAB TIMES A DAY FOR SEVERE FOOT PAIN OXYCODONE TAKE 2 ORALLY 08/10/2021 [id number] [facility] SE, 07/12/ [place] [facility] TABLETS 2 2021 [facility] 5MG/ACETAMI BY MOUTH [facility] NOPHEN THREE 325MG TAB TIMES A DAY FOR SEVERE FOOT PAIN OXYCODONE TAKE 2 ORALLY 04/16/2021 [id number] [facility] SE, 04/01/ [place] [facility] TABLETS 2 2021 [facility] 5MG/ACETAMI BY MOUTH [facility] NOPHEN THREE 325MG TAB TIMES A DAY FOR SEVERE FOOT PAIN OXYCODONE TAKE 2 ORALLY 10/23/2020 [id number] [facility] SE, 09/23/ [place] [facility] TABLETS 1 2020 [facility] 5MG/ACETAMI BY MOUTH [facility] NOPHEN TWICE A 325MG TAB DAY NEEDED FOR SEVERE FOOT PAIN -DO NOT EXCEED 4000MG OF ACETAMIN OPHEN IN 24 HOURS FROM ALL SOURCES POLYVINYL INSTILL BOTH DISCONT 08/05/2021 [id number] [facility]SE, 08/05/ [place] ALCOHOL 1 DROP EYES INUED 2 2020 [facility] 1.4% IN BOTH [facility] SOLN,OPH EYES THREE TIMES A DAY NEEDED FOR DRY EYES Potassium TAKE 1 Discont 08/05/2021 [id number] DIXIE E, 06/27/ [place] Chloride PACKET inued 2 2021 [facility] 20mEq BY MOUTH GREATER [facility] Powder for EVERY solution, DAY Oral --TAKE WITH WATER-- POTASSIUM TAKE ONE ORALLY ACTIVE 07/30/2022 [id number] PAR ADISE, 08/02/ [place] CHLORIDE TABLET 2 2021 [facility] 20MEQ BY MOUTH [facility] TAB,SA EVERY (DISPERSIBL DAY E) POTASSIUM TAKE 1 ORALLY DISCONT 08/05/2021 [id number] [facility] SE, 08/05/ [place] CHLORIDE PACKET INUED 2 2020 [facility] 20MEQ/PKT BY MOUTH [facility] PWDR EVERY DAY --TAKE WITH WATER-- Potassium TAKE ONE Active 07/30/2022 [id number] [facility] SE, 08/05/ [place] Chloride, TABLET 2 2021 olis Microencaps BY MOUTH [facility]ATER [facility] ulated EVERY (K-Dur Eq.) DAY Tablet Controlled Release 20 mEq Oral Prednisolon INSTILL Discont 10/12/2021 [id number] KULE NKAMP 06/27/ [place] e Acetate 1 DROP inued 1 , 2021 olis (Pred Forte IN E [facility] Eq.) OPERATIV Suspension E EYE 1% Optical FOUR TIMES A DAY SHAKE WELL FOR POST-OP INFLAMMA TION PREDNISOLON INSTILL OPERAT DISCONT 10/12/2021 [id number] K ULENKAMP 10/12/ [place] E ACETATE 1 DROP GAVIN INUED 1 ,BRANDY E 2020 [facility] 1% SUSP,OPH IN EYE HCS OPERATIV E EYE FOUR TIMES A DAY SHAKE WELL FOR POST-OP INFLAMMA TION Pregabalin TAKE ONE Discont 07/08/2021 [id number] PARA DISE, 06/27/ [place] (Lyrica) CAPSULE inued 2 2021 [facility] Capsule BY MOUTH [facility] Conventiona THREE l 100 mg TIMES A Oral DAY FOR NERVE PAIN -REPLACE S GABAPENT IN Pregabalin TAKE ONE Discont 01/14/2021 [id number] PAR[facility] DISE, 01/09/ [place] (Lyrica) CAPSULE inued 1 2020 [facility] Capsule BY MOUTH [facility] Conventiona AT l 100 mg BEDTIME Oral FOR 5 DAYS, THEN TAKE ONE CAPSULE TWICE A DAY FOR 5 DAYS, THEN TAKE ONE CAPSULE THREE TIMES A DAY FOR NERVE PAIN -REPLACE S GABAPENT IN PREGABALIN TAKE ONE Active 01/29/2022 [id number] [facility] ISE, 12/04/ [place] (U/D) 150 CAPSULE 2 2021 olis MG ORAL CAP BY MOUTH [facility] TWICE A DAY FOR NERVE PAIN (REPLACE S PREGABAL IN 100MG) PREGABALIN TAKE ONE ORALLY DISCONT 07/08/2021 [id number] P ARADISE, 01/14/ [place] 100MG CAPSULE INUED 2 2020 [facility] CAP,ORAL BY MOUTH [facility] THREE TIMES A DAY FOR NERVE PAIN -REPLACE S GABAPENT IN PREGABALIN TAKE ONE ORALLY DISCONT 01/14/2021 [id number] P ARADISE, 12/15/ [place] 100MG CAPSULE INUE 1 2020 [facility] CAP,ORAL BY MOUTH [facility] AT BEDTIME FOR 5 DAYS, THEN TAKE ONE CAPSULE TWICE A DAY FOR 5 DAYS, THEN TAKE ONE CAPSULE THREE TIMES A DAY FOR NERVE PAIN -REPLACE S GABAPENT IN PREGABALIN TAKE ONE ORALLY SUSPEND 06/21/2022 [id number] [place], 01/15/ [place] 150MG CAPSULE ED 2 2021 [facility] CAP,ORAL BY MOUTH [facility] TWICE A DAY FOR NERVE PAIN (REPLACE S PREGABAL IN 100MG) PREGABALIN TAKE ONE ORALLY DISCONT 01/29/2022 [id number] P ARADISE, 07/29/ [place] 150MG CAPSULE INUED 2 2021 [facility] CAP,ORAL BY MOUTH [facility] TWICE A DAY FOR NERVE PAIN (REPLACE S PREGABAL IN 100MG) PROPRANOLOL TAKE ONE Active 07/30/2022 [id number] PAR[facility] DISE, 08/05/ [place] 80 MG ORAL TABLET 2 2021 olis TAB BY MOUTH [facility] TWICE A DAY FOR HAND TREMOR PROPRANOLOL TAKE ONE Discont 08/10/2021 [id number] PAR ADISE, 06/28/ [place] 80 MG ORAL TABLET inued 2 CARIDAD2021 olis TAB BY MOUTH [facility] TWICE A DAY FOR HAND TREMOR PROPRANOLOL TAKE ONE ORALLY ACTIVE 07/30/2022 [id number] [facility], 08/02/ [place] [facility] 80MG TABLET 2 CARIDAD 2021 [facility] TAB BY MOUTH [facility] TWICE A DAY FOR HAND TREMOR PROPRANOLOL TAKE ONE ORALLY DISCONT 08/10/2021 [id number] [facility]ISE, 10/24/ [place] [facility] 80MG TABLET INUED 2 CARIDAD 2020 [facility] TAB BY MOUTH [facility] TWICE A DAY FOR HAND TREMOR rOPINIRole TAKE ONE 08/05/2021 [id number] PAR[facility] DISE, 01/11/ [place] 2 MG ORAL TABLET 1 2020 olis TAB BY MOUTH [facility] TWICE A DAY FOR RESTLESS LEG (NOTE DOSE REDUCTIO N PER PHARMACY RECOMMEN DATION) ROPINIROLE TAKE ONE ORALLY ACTIVE 12/16/2022 [id number] PA RADISE, 12/19/ [place] [facility] 2MG TAB TABLET 2 2021 [facility] BY MOUTH [facility] TWICE A DAY FOR RESTLESS LEG ROPINIROLE TAKE ONE ORALLY DISCONT 08/05/2021 [id number] [facility]ISE, 09/20/ [place] [facility] 2MG TAB TABLET INUE 1 2020 [facility] BY MOUTH [facility] TWICE A DAY FOR RESTLESS LEG (NOTE DOSE REDUCTIO N PER PHARMACY RECOMMEN DATION) ROPINIROLE TAKE TWO ORALLY DISCONT 07/26/2022 [id number] [place], 07/27/ [place] [facility] 2MG TABLETS INUED 2 CARIDAD 2021 [facility] TAB,SA BY M[facility]TH [facility] EVERY DAY ROPINIROLE TAKE TWO ORALLY DISCONT 01/25/2022 [id number] P ARADISE, 01/26/ [place] [facility] 2MG TABLETS INUED 2 CARIDAD 2020 [facility] TAB,SA BY M[facility]TH [facility] EVERY DAY rOPINIRole TAKE TWO Active 07/26/2022 [id number] PAR[facility] ISE, 10/24/ [place] XL 2 MG TABLETS 2 CARIDAD 2 olis ORAL TB24 BY MOUTH [facility]ATER [facility] EVERY DAY rOPINIRole TAKE TWO Discont 01/25/2022 [id number] PARA DISE, 06/28/ [place] XL 2 MG TABLETS inued 2 2021 olis ORAL TB24 BY MOUTH [facility]ATER [facility] EVERY DAY SALIVA,NICOLE SPRAY ACTIVE 07/30/2022 [id number] [facility]I SE, 08/02/ [place] FICIAL 1-2 2 2021 [facility] ([place] SPRAYS [facility] MOUTH) IN MOUTH SPRAY,ORAL EVERY HOUR NEEDED FOR DRY MOUTH SALIVA,NICOLE SPRAY DISCONT 08/05/2021 [id number] [facility] ISE, 08/05/ [place] FICIAL 1-2 INUED 2 2020 [facility] ([place] SPRAYS [facility] MOUTH) IN MOUTH SPRAY,ORAL EVERY HOUR NEEDED FOR DRY MOUTH SEMAGLUTIDE INJECT SUBCUT ACTIVE 07/30/2022 [id number] PA RADISE, 08/02/ [place] 1MG/0.75ML 1MG ANEOUS 2 2021 [facility] INJ,SOLN,PE UNDER [facility] N,3ML THE SKIN EVERY WEEK SEMAGLUTIDE INJECT SUBCUT DISCONT 08/05/2021 [id number] PA RADISE, 08/05/ [place] 1MG/0.75ML 1MG ANEOUS INUED 2 2020 [facility] INJ,SOLN,PE UNDER [facility] N,3ML THE SKIN EVERY WEEK Senna/Docus TAKE 1 Active 07/30/2022 [id number] PARADI SE, 08/05/ [place] ate Sodium TABLET 2 2021 olis (Senokot-S BY MOUTH [facility] Eq.) Tablet TWICE A 8.6-50 mg DAY Oral NEEDED FOR CONSTIPA TION STOP IF DIARRHEA OCCURS SILVASORB APPLY TO TOPICA DISCONT 04/08/2021 [id number] P ARADISE, 04/08/ [place] GEL,TOP AFFECTED LLY INUED 1 2020 [facility] AREAS [facility] TOPICALL Y ONCE DAILY FOR FOOT ULCER Sodium INSTILL Discont 10/12/2021 [id number] SCHEURER, 06/28/ [place] Chloride 1 DROP inued 1 JIM A 2021 olis (Adsorbonac IN [facility]OTH [facility] Eq.) EYES Solution 5% FOUR Optical TIMES A DAY Sodium APPLY Discont 09/21/2021 [id number] KULENKAMP 0 06/27/ [place] Chloride THIN inued 1 , BRANDY 2021 olis (Janine-128 STRIP TO E [facility] Eq.) BOTH Ointment 5% EYES AT Optical BEDTIME SODIUM APPLY BOTH DISCONT 09/21/2021 [id number] KULENKAMP 0 09/21/ [place] CHLORIDE 5% THIN EYES INUED 1 ,BRANDY E 2020 [facility] OINT,OPH STRIP TO HCS BOTH EYES AT BEDTIME SODIUM INSTILL BOTH DISCONT 10/12/2021 [id number] SCHEURER, 10/12/ [place] CHLORIDE 5% 1 DROP EYES INUED 1 JIM A 2020 [facility] A SOLN,OPH IN BOTH HCS EYES FOUR TIMES A DAY Sodium BRUSH Discont 10/06/2021 [id number] MAZHARY, / [place] Fluoride SMALL inued 2 EVER 2021 olis (PreviDent AMOUNT [facility] 5000 MOUTH Booster EVERY Eq.) Paste MORNING 1.1% Dental AND AT BEDTIME ON TOOTHBRU , BRUSH FOR 2 MINUTES. SODIUM BRUSH ORALLY DISCONT 10/06/2021 [id number] MAZHARY,A 10/06/ [place] FLUORIDE SMALL INUED 2 MASON 2020 [facility] 1.1% AMOUNT HCS TOOTHPASTE MOUTH EVERY MORNING AND AT BEDTIME ON TOOTHBRU , BRUSH FOR 2 MINUTES. SULFAMETHOX TAKE 1 ORALLY DISCONT 03/25/2021 [id number] TR AUT,ANÍBAL 02/23/ [place] AZOLE TABLET INUED 2 HARD L 2021 [facility] 800MG/TRIME BY MOUTH HCS THOPRIM TWICE A 160MG TAB DAY Sulfamethox TAKE 1 Discont 03/25/2021 [id number] TRAUT , 06/27/ [place] azole/Trime TABLET inued 2 JOSE L 2021 mark s thoprim BY MOUTH [facility] (Septra DS TWICE A Eq.) Tablet DAY 800-160 mg Oral TADALAFIL TAKE ONE ORALLY SUSPEND 07/30/2022 [id number] P ARADISE, 08/02/ [place] 20MG TAB TABLET ED 2 2021 [facility] BY MOUTH [facility] AT BEDTIME TAKE AT LEAST 30 MINUTES BEFORE ANTICIPA CARLO SEXUAL ACTIVITY TADALAFIL TAKE ONE ORALLY DISCONT 08/05/2021 [id number] P ARADISE, 08/05/ [place] 20MG TAB TABLET INUED 2 2020 [facility] BY MOUTH [facility] AT BEDTIME TAKE AT LEAST 30 MINUTES BEFORE ANTICIPA CARLO SEXUAL ACTIVITY . MAXIMUM 4 DOSES FOR 30-DAY SUPPLY TAPE,MEDIPO CUT AND TOPICA DISCONT 03/23/2022 [id number] Gonzales BOONE 03/23/ [facility] RE H SOFT APPLY LLY INUED 2 2021 MILLY CLOTH 4IN X TAPE [facility] 10YD 3M DIRECTED #[id number] TAPE,MEDIPO CUT AND TOPICA DISCONT 12/16/2020 [id number] Gonzales BOONE 12/15/ [place] RE SOFT APPLY LLY INUE 1 2019 MILLY CLOTH 4IN X TAPE [facility] 10YD 3M DIRECTED #[id number] TRAZODONE TAKE ONE ORALLY ACTIVE 11/12/2022 [id number] PAR ADISE, 11/15/ [place] H[facility] 50MG TABLET 2 2021 [facility] TAB BY MOUTH [facility] AT BEDTIME NEEDED FOR SLEEP TRAZODONE TAKE ONE ORALLY 02/16/2021 [id number] P ARADISE, 03/31/ [place] H[facility] 50MG TABLET 1 2020 [facility] TAB BY MOUTH [facility] AT BEDTIME NEEDED FOR SLEEP Trazodone TAKE ONE 02/16/2021 [id number] PARAD ISE, 11/13/ [place] Hydrochlori TABLET 1 2020 olis de (Desyrel BY MOUTH [facility] Eq.) Tablet AT 50 mg Oral BEDTIME NEEDED FOR SLEEP Triamcinolo APPLY Active 07/30/2022 [id number] DIXIE E, 08/05/ [place] ne THIN 2 2021 olis Acetonide [facility]ER [facility] (Triamcinol TOPICALL one Y TWICE Acetonide A DAY Eq.) Cream FOR .1% Topical RASH/ITC DYLONAV OID FACE,TAJ IN\T\ARM PITS *FOR EXTERNAL USE ONLY Triamcinolo APPLY Discont 10/18/2021 [id number] PARADI SE, 06/28/ [place] ne MODERATE inued 2 CARIDAD 2021 olis Acetonide AMOUNT [facility] 0.001mg/mg, TWICE A Ointment, DAY Topical NEEDED FOR ITCHING AVOID FACE,TAJ IN\T\ARM PITS *FOR EXTERNAL USE ONLY TRIAMCINOLO APPLY TOPICA ACTIVE 07/30/2022 [id number] PARADI SE, 08/02/ [place] NE THIN LLY 2 CARIDAD2021 [facility] ACETONIDE [facility] 0.1% TOPICALL CREAM,TOP Y TWICE A DAY FOR RASH/ITC DYLONAV OID FACE,TAJ IN and ARMPITS *FOR EXTERNAL USE ONLY TRIAMCINOLO APPLY TOPICA DISCONT 10/18/2021 [id number] P ARADISE, 10/17/ [place] NE MODERATE LLY INUED 2 CARIDAD 2020 [facility] ACETONIDE [facility] 0.1% TWICE A OINT,TOP DAY NEEDED FOR ITCHING AVOID FACE,TAJ IN and ARMPITS *FOR EXTERNAL USE ONLY VANICREAM APPLY TOPICA ACTIVE 07/12/2022 [id number] PARADISE , 07/13/ [place] THIN LLY 2 CARIDAD2021 [facility] LAYER [facility] TOPICALL Y EVERY DAY FOR DRY SKIN, IDEALLY WITHIN 3 MINUTES AFTER BATH OR SHOWER. FOR DRY SKIN, IDEALLY WITHIN 3 MINUTES AFTER BATH OR SHOWER. VANICREAM APPLY TOPICA DISCONT 07/03/2021 [id number] PARADI SE, 07/02/ [place] THIN LLY INUED 2 CARIDAD 2020 [facility] LAYER [facility] TOPICALL Y EVERY DAY FOR DRY SKIN APPLY TO FEET AND LEGS VASHE WOUND SATURATE TOPICA DISCONT 02/05/2022 [id number] PONCHOBEV 02/04/ [place] THERAPY GAUZE LLY INUED 2 TTANY 2020 [facility] SOLN,TOP WITH [facility] SOLUTION AND USE DIRECTED VITAMIN E TAKE ONE ORALLY DISCONT 09/08/2021 [id number] PA RADISE, 09/08/ [place] 180MG CAPSULE INUED 2 CARIDAD 2020 [facility] (400UNIT) BY MOUTH [facility] CAP EVERY DAY Allergies, Adverse Reactions, Alerts Combined list of allergies from Department of Defense and Veterans Affairs facilities. It does not include entries that were removed or entered in error. Substance Category Reaction Severity Reaction Status Date Comments S ource type Reported RIVAROXABAN Drug Liver Drug active [place] allergy enzymes allergy 8 lis [facility] abnormal RIVAROX[place]AN Propensity Liver MILD Propensity active [place] to adverse enzymes to adverse 8 LI S [place] reactions abnormal reactions HCS to drug to drug (finding) (finding) Immunizations Combined list of available immunizations from the Department of Defense and Veterans Affairs facilities. Immunization Series Date Administered Site Reaction Lot CVX Drug St atus Comments Source Given By Number Code Rn Physician Office COVID-19 4 complet PFR; [place] (PFIZER), 2021 ed [id number]; [facility] M[facility], LNP-S, 02 HCS PF, 30 2 MCG/0.3 ML DOSE, SAIRA-SUCROSE (AGES 12+ YEARS) COVID-19 3 complet PFR; [place] (PFIZER), 2020 ed [id number]; [facility] MRNA, LNP-S, 02 HCS PF, 30 1 MCG/0.3 ML DOSE INFLUENZA, complet [place] INJECTABLE, 2020 ed [facility] QUADRIVALENT, HCS PRESERVATIVE FREE COVID-19 1 complet PFR; [place] (PFIZER), 2020 ed [id number]; [facility] MRNA, LNP-S, 02 HCS PF, 30 1 MCG/0.3 ML DOSE COVID-19 1 complet PFR; [place] (PFIZER), 2020 ed [id number]; [facility] MRNA, LNP-S, 02 HCS PF, 30 1 MCG/0.3 ML DOSE INFLUENZA, 09/12/ 197 complet Partne r:C [place] HIGH-DOSE, 2019 ed CN2.Admin [facility] QUADRIVALENT istered by:[facility] [phone]:[phone] .Address: [address] [id number] Dosage: ML 0.7 INFLUENZA, complet [facility] UNSPECIFIED 2019 ed PH ARMAC FORMULATION Y INFLUENZA, complet [place] SEASONAL, 2018 ed [facility] INJECTABLE, HC S PRESERVATIVE FREE ZOSTER 2 complet [place] RECOMBINANT 2018 ed [facility] ZOSTER 1 complet [place] RECOMBINANT 2017 ed [facility] [place] [facility] INFLUENZA, complet Partne r: [place] INJECTABLE, 2018 ed [facility] marilee [facility] QUADRIVALENT, Pharma cy. PRESERVATIVE Adminis te FREE red by: [facility] Clinician (NPI=Not Provided) . Partner 9 Lot#: [id number] Mfr: [employer] PNEUMOCOCCAL complet 000 [place] POLYSACCHARID 2017 ed [facility] E PPV23 HCS INFLUENZA, complet [place] SEASONAL, 2017 ed [facility] INJECTABLE, PRESERVATIVE FREE INFLUENZA, complet [place] HIGH DOSE 2017 ed [facility] SEASONAL HCS INFLUENZA, complet [place] SEASONAL, 2016 ed [facility] INJECTABLE, PRESERVATIVE FREE PNEUMOCOCCAL complet [place] CONJUGATE PCV 2016 ed [facility] 13 INFLUENZA, complet [place] SEASONAL, 2015 ed [facility] INJECTABLE INFLUENZA, complet [place] UNSPECIFIED 2014 ed [facility] FORMULATION TETANUS/DIPTH complet [place] E[place]/PERTUSSI 2014 ed [place], S (TDAP) [place] [facility] (HISTORICAL) INFLUENZA, complet [place] UNSPECIFIED 2013 ed [facility] FORMULATION INFLUENZA, complet [place] UNSPECIFIED 2012 ed [facility] FORMULATION INFLUENZA, complet [place] UNSPECIFIED 2012 ed [facility] FORMULATION INFLUENZA, complet Norvar tis [place] UNSPECIFIED 2011 ed [id number] [place], FORMULATION 07/2012 A Z [facility] INFLUENZA, complet sanofi pas [place] UNSPECIFIED 2010 ed teur [facility] FORMULATION up527te 08/19/11 TD(ADULT) 07/02/ NONE 139 complet Dt 0.5c cs [place] UNSPECIFIED 2010 ed IM LEFT [facility] FORMULATION deltoid. Lot # [id number] . Vaccine informati on sheet given to patient. INFLUENZA, complet [place] UNSPECIFIED 2009 ed OL IS [facility] HC S INFLUENZA, NONE 88 complet CSL [place] UNSPECIFIED 2008 ed [employer] [place], FORMULATION ies; [place] [facility] [id number] ; Exp: 0 ZOSTER LIVE complet v [place] 2007 ed [facility] INFLUEN[place], complet [place] UNSPECIFIED 2007 ed A FORMULATION [facility] PNEUMOCOCCAL, complet ZZ-[place] UNSPECIFIED 2007 ed [place] FORMULATION FA [facility] ORC INFLUENZA, complet [place] UNSPECIFIED 2006 ed A FORM[facility]ATION [facility] INFLUENZA, complet [place] UNSPECIFIED 2005 ed [place] IS [facility] S TD(ADULT) complet Z Z-[place] UNSPECIFIED 2005 ed PE [place] FORMULATION FA LLS ORC PNEUMOCOCCAL, complet [place] UNSPECIFIED 2005 ed A FORM[facility]ATION [facility] INFLUENZA, complet [place] UNSPECIFIED 2004 ed [place] [facility] INFLUENZA, complet [place] UNSPECIFIED 2003 ed [place] [facility] INFLUENZA, 12/09/ KENNY RIVAS 88 complet [place] UNSPECIFIED 2002 J ed [place] [facility] TD(ADULT) complet M [place] UNSPECIFIED 2001 ed [place] [facility] INFLUENZA, complet [place] UNSPECIFIED 2001 ed [place] [facility] INFLUENZA, complet [place] UNSPECIFIED 2000 ed [place] [facility] INFLUENZA, 12/26/ MARY OBANDO 88 complet [place] UNSPECIFIED 1999 ed [place] [facility] INFLUENZA, 12/02/ STAFF,NURSE 88 complet [place] UNSPECIFIED 1998 ed [place] IS [facility] INFLUENZA 12/10/ STAFF,NURSE 88 complet [place] (HISTORICAL) 1996 ed O [facility] INFLUENZA 12/09/ STAFF,NURSE 88 complet [place] (HISTORICAL) 1995 ed O LIS [facility] Results Combined list of recent chemistry, hematology and other laboratory results from [facility], ranging from 15 months to all on record, depending upon the facility. Order Results Value Reference Date Interpretation Specimen Commen ts Source Name Range DRUG BARBITURAT Negative 07/29 Specimen Typ e: URINE [place] SCREEN ES Comment: Presum ptive Positive by screen, results not confirmed. IS [place] [facility] PANEL,UR [PRESENCE] Ordering Pr ovider: CARIDAD DENNIS INE IN URINE Report Release d Date/Time: Jul 29, 2021 01:06 PM BY SCREEN Reporting Lab : [facility] [address] [place] [id number] Performing Lab: [facility] [address] [place] [id number] DRUG AMPHETAMIN Negative 07/29 Specimen Typ e: URINE [place] SCREEN Comment: Presum ptive Positive by screen, results not confirmed. IS [facility] PANEL,UR [PRESENCE] Ordering Pr ovider: CARIDAD DENNIS INE IN URINE Report Release d Date/Time: Jul 29, 2021 01:06 PM Reporting Lab: [facility] [address] [place] [id number] Performing Lab: [facility] [address] [place] [id number] DRUG COCAINE Negative 07/29 Specimen Type: URINE [place] SCREEN [PRESENCE] Comment: Pre sumptive Positive by screen, results not confirmed. [facility] PANEL,UR IN URINE Ordering Prov ider: CARIDAD DENNIS INE Report Released Date/Time: Jul 29, 2021 01:06 PM Reporting Lab: [facility] [address] [place] [address] Performing Lab: [facility] [address] [place] [address] DRUG BENZODIAZE Negative 07/29 Specimen Typ e: URINE [place] SCREEN PINE Comment: Presum ptive Positive by screen, results not confirmed. [facility] PANEL,UR [PRESENCE] Ordering Pr ovider: CARIDAD DENNIS INE IN URINE Report Release d Date/Time: Jul 29, 2021 01:06 PM BY SCREEN Reporting Lab : [facility] METHOD [address] [place] [address] Performing Lab: [facility] [address] [place] [address] DRUG CANNABINOI Negative 07/29 Specimen Typ e: URINE [place] SCREEN DS /2021 Comment: Presum ptive Positive by screen, results not confirmed. [facility] PANEL,UR [PRESENCE] Ordering Pr ovider: NEWISECARIDAD INE IN URINE Report Release d Date/Time: Jul 29, 2021 01:06 PM BY SCREEN Reporting Lab : [facility] METHOD [place] [address] Performing Lab: [facility] [address] [facility] [address] DRUG METHADONE Negative 07/29 Specimen Type : URINE [place] SCREEN [PRESENCE] /2021 Comment: Pre sumptive Positive by screen, results not confirmed. [facility] PANEL,UR IN URINE Ordering Prov ider: PARADISECARIDAD STUART INE Report Released Date/Time: Jul 29, 2021 01:06 PM Reporting Lab: [facility] [place] [address] Performing Lab: [facility] [place] [address] DRUG OPIATES Negative 07/29 Specimen Type: URINE [place] SCREEN [PRESENCE] Comment: Pre sumptive Positive by screen, results not confirmed. [facility] PANEL,UR IN URINE Ordering Prov ider: NEWISEMARCINCARIDAD NARCISO INE BY SCREEN Report Releas ed Date/Time: Jul 29, 2021 01:06 PM METHOD Reporting Lab: [facility] [place] [address] Performing Lab: [facility] [place] [address] DRUG PHENCYCLID Negative 07/29 Specimen Typ e: URINE [place] SCREEN INE Comment: Presum ptive Positive by screen, results not confirmed. [facility] PANEL,UR [PRESENCE] Ordering Pr ovider: NEWISECARIDAD INE IN URINE Report Release d Date/Time: Jul 29, 2021 01:06 PM Reporting Lab: [facility] [place] [address] Performing Lab: [facility] [address] [facility] [address] DRUG ETHYLENE Negative 07/29 Specimen Type: URINE [place] SCREEN GLYCOL Comment: Presum ptive Positive by screen, results not confirmed. [facility] PANEL,UR [MASS/VOLU Ordering Pr ovider: CARIDAD DENNIS INE ME] IN Report Released Date/Time: Jul 29, 2021 01:06 PM URINE Reporting Lab: [facility] [place] [address] Performing Lab: [facility] [address] [place] [address] DRUG CREATININE 64.7 20.0 07/29 Specimen Type : URINE [place] SCREEN [MASS/VOLU /2021 Comment: Pre sumptive Positive by screen, results not confirmed. [facility] PANEL,UR ME] IN Ordering Provi dutch: CARIDAD DENNIS INE URINE Report Released Date/Time: Jul 29, 2021 01:06 PM Reporting Lab: [facility] [address] [place] [address] Performing Lab: [facility] [address] [place] [address] DRUG OXYCODONE POSITIVE 07/29 H Specimen Type : URINE [place] SCREEN [PRESENCE] /2021 Comment: Pre sumptive Positive by screen, results not confirmed. [facility] PANEL,UR IN URINE Ordering Prov ider: CARIDAD DENNIS INE BY SCREEN Report Releas ed Date/Time: Jul 29, 2021 01:06 PM METHOD Reporting Lab: [facility] [address] [place] [address] Performing Lab: [facility] [place] [address] DRUG BUPRENORPH Negative 07/29 Specimen Typ e: URINE [place] SCREEN INE+NORBUP /2021 Comment: Pre sumptive Positive by screen, results not confirmed. [facility] PANEL,UR RENORPHINE Ordering Pr ovider: CARIDAD DENNIS INE [PRESENCE] Report Relea sed Date/Time: Jul 29, 2021 01:06 PM IN URINE Reporting Lab: [facility] [place] [address] Performing Lab: [facility] [place] [address] DRUG TRAMADOL Negative 07/29 Specimen Type: URINE [place] SCREEN CUTOFF /2021 Comment: Presum ptive Positive by screen, results not confirmed. [facility] PANEL,UR [MASS/VOLU Ordering Pr ovider: CARIDAD DENNIS INE ME] IN Report Released Date/Time: Jul 29, 2021 01:06 PM URINE FOR Reporting Lab : [facility] SCREEN [place] [address] METHOD Performing Lab: [facility] [place] [address] DRUG FENTANYL Negative 07/29 Specimen Type: URINE [place] SCREEN [PRESENCE] /2021 Comment: Pre sumptive Positive by screen, results not confirmed. [facility] PANEL,UR IN URINE Ordering Prov ider: CARIDAD DENNIS INE Report Released Date/Time: Jul 29, 2021 01:06 PM Reporting Lab: [facility] [address] [facility] [address] Performing Lab: [facility] [address] [facility] [address] ALT/SGPT ALANINE 15 <55 - 55 07/29 Specimen Type: PLASMA [place] AMINOTRANS /2021 No comment en tered. [facility] FERASE Ordering Provid er: CARIDAD DENNIS [ENZYMATIC Report Relea sed Date/Time: Feb 28, 2021 06:22 PM ACTIVITY/V Reporting La b: [facility] OLUME] IN [address] [facility] [address] SERUM OR Performing Lab : [facility] PLASMA [address] [facility] [address] AST/SGOT ASPARTATE 13 <34 - 34 07/29 Specimen Typ e: PLASMA [place] AMINOTRANS /2021 No comment en tered. [facility] FERASE Ordering Provid er: CARIDAD DENNIS [ENZYMATIC Report Relea sed Date/Time: Feb 28, 2021 06:22 PM ACTIVITY/V Reporting La b: [facility] O[facility]] IN [address] [facility] [address] SERUM OR Performing Lab : [facility] PLASMA [address] [facility] [address] BASIC CREATININE 0.7 0.7 - 1.2 07/29 Specimen Ty pe: PLASMA [place] METABOLI [MASS/VOLU /2021 No comment e ntered. [facility] C ME] IN Ordering Provid er: CARIDAD DENNIS PANEL+MG SERUM OR Report Releas ed Date/Time: Feb 28, 2021 06:22 PM PLASMA Reporting Lab: [facility] [address] [facility] [address] Performing Lab: [facility] [address] [facility] [address] BASIC UREA 12 8 - 26 07/29 Specimen Type: P LASMA [place] METABOLI NITROGEN /2021 No comment ent ered. [facility] C [MASS/VOLU Ordering Pro vider: CARIDAD DENNIS PANEL+MG ME] IN Report Release d Date/Time: Feb 28, 2021 06:22 PM SERUM OR Reporting Lab: [facility] PL[facility] [place] [address] Performing Lab: [facility] [address] [facility] [address] BASIC GLUCOSE 170 74 - 100 06/10 H Specimen Type: PLASMA [place] METABOLI [MASS/VOLU /2021 No comment e ntered. [facility] C ME] IN Ordering Provid er: PARADCARIDAD ISAACS STUART PANEL+MG SERUM OR Report Releas ed Date/Time: Feb 28, 2021 06:22 PM PLASMA Reporting Lab: [facility] [address] [facility] [address] Performing Lab: [facility] [address] BASIC SODIUM 141 136 - 145 07/29 Specimen Type: PLASMA [place] METABOLI [MOLES/VOL No comment e ntered. [facility] C UME] IN Ordering Provid er: MARCIN DENNISOSCAR STUART PANEL+MG SERUM OR Report Releas ed Date/Time: Feb 28, 2021 06:22 PM PLASMA Reporting Lab: [facility] [address] [facility] [address] Performing Lab: [facility] [address] BASIC POTASSIUM 3.9 3.5 - 5.1 07/29 Specimen Typ e: PLASMA [place] METABOLI [MOLES/VOL /2021 No comment e ntered. [facility] C UME] IN Ordering Provid er: NEWFERNYCARIDADOSCAR STUART PANEL+MG SERUM OR Report Releas ed Date/Time: Feb 28, 2021 06:22 PM PLASMA Reporting Lab: [facility] [address] [facility] [address] Performing Lab: [facility] [address] BASIC CHLORIDE 105 98 - 107 07/29 Specimen Type: PLASMA [place] METABOLI [MOLES/VOL No comment e ntered. [facility] C UME] IN Ordering Provid er: PARADFERNYCARIDADOSCAR STUART PANEL+MG SERUM OR Report Releas ed Date/Time: Feb 28, 2021 06:22 PM PLASMA Reporting Lab: [facility] [address] [facility] [address] Performing Lab: [facility] [address] [place] [address] BASIC CARBON 28 22 - 29 07/29 Specimen Type: P LASMA [place] METABOLI DIOXIDE, /2021 No comment ent ered. [facility] C TOTAL Ordering Provid er: CARIDAD DENNIS PANEL+MG [MOLES/VOL Report Rele ased Date/Time: Feb 28, 2021 06:22 PM UME] IN Reporting Lab: [facility] SERUM [place] [address] PLASMA Performing Lab: [facility] [address] [place] [address] BASIC CALCIUM 9.1 8.4 - 10.2 07/29 Specimen Type : PLASMA [place] METABOLI [MASS/VOLU /2021 No comment e ntered. [facility] C ME] IN Ordering Provid er: CARIDAD DENNIS PANEL+MG SERUM OR Report Releas ed Date/Time: Feb 28, 2021 06:22 PM PLASMA Reporting Lab: [facility] [place] [address] Performing Lab: [facility] [address] [place] [address] BASIC MAGNESIUM 2.3 1.6 - 2.6 07/29 Specimen Typ e: PLASMA [place] METABOLI [MASS/VOLU /2021 No comment e ntered. [facility] C ME] IN Ordering Provid er: CARIDAD DENNIS PANEL+MG SERUM OR Report Releas ed Date/Time: Feb 28, 2021 06:22 PM PLASMA Reporting Lab: [facility] [address] [place] [address] Performing Lab: [facility] [address] [place] [address] BASIC ANION GAP 8 5 - 15 07/29 Specimen Type: PLASMA [place] METABOLI IN SERUM /2021 No comment ent ered. [facility] C OR PLASMA Ordering Prov ider: CARIDAD DENNIS PANEL+MG Report Release d Date/Time: Feb 28, 2021 06:22 PM Reporting Lab: [facility] [place] [address] Performing Lab: [facility] [address] [place] [address] BASIC CREAT >90 60 07/29 Specimen Type: P LASMA [place] METABOLI EGFR(CKD-E /2021 No comment e ntered. [facility] C PI) Ordering Provid er: CARIDAD DENNIS PANEL+MG Report Release d Date/Time: Feb 28, 2021 06:22 PM Reporting Lab: [facility] [address] [place] [address] Performing Lab: [facility] [address] [place] [address] CBC LEUKOCYTES 6.29 4.0 - 11.0 07/29 Specimen T ype: BLOOD [place] [#/VOLUME] /2021 No comment en tered. [facility] IN BLOOD Ordering Provi dutch: CARIDAD DENNIS BY Report Released Date/Time: Feb 28, 2021 06:22 PM AUTOMATED Reporting Lab : [facility] H[facility] COUNT [place] [address] Performing Lab: [facility] [address] [place] [address] CBC ERYTHROCYT 4.82 4.6 - 6.2 07/29 Specimen Ty pe: BLOOD [place] ES /2021 No comment enter ed. [facility] [#/VOLUME] Ordering Pro vider: CARIDAD DENNIS IN BLOOD Report Release d Date/Time: Feb 28, 2021 06:22 PM BY Reporting Lab: [facility] AUTOMATED [address] [facility] [address] COUNT Performing Lab: [facility] [place] [address] CBC HEMOGLOBIN 13.3 13.5 - 07/29 L Specimen Type : BLOOD [place] [MASS/VOLU 17.9 /2021 No comment en tered. [facility] ME] IN Ordering Provid er: CARIDAD DENNIS BLOOD Report Released Date/Time: Feb 28, 2021 06:22 PM Reporting Lab: [facility] [place] [address] Performing Lab: [facility] [address] [facility] [address] CBC HEMATOCRIT 42.4 41 - 54 07/29 Specimen Type : BLOOD [place] [VOLUME /2021 No comment enter ed. [facility] FRACTION] Ordering Prov ider: CARIDAD DENNIS OF BLOOD Report Release d Date/Time: Feb 28, 2021 06:22 PM BY Reporting Lab: [facility] AUTOMATED [address] [facility] [address] COUNT Performing Lab: [facility] [place] [address] CBC MCV 88.0 80 - 100 06 Specimen Type: BLOOD [place] [ENTITIC /2021 No comment ente red. [facility] VOLUME] BY Ordering Pro vider: CARIDAD DENNIS AUTOMATED Report Releas ed Date/Time: Feb 28, 2021 06:22 PM COUNT Reporting Lab: [facility] [place] [address] Performing Lab: [facility] [address] [place] [address] CBC MCH 27.6 27 - 33 07/29 Specimen Type: B LOOD [place] [ENTITIC /2021 No comment ente red. [facility] MASS] BY Ordering Provi dutch: CARIDAD DENNIS AUTOMATED Report Releas ed Date/Time: Feb 28, 2021 06:22 PM COUNT Reporting Lab: [facility] [place] [address] Performing Lab: [facility] [address] [place] [address] CBC MCHC 31.4 32.0 - 07/29 L Specimen Type: B LOOD [place] [MASS/VOLU 37.5 /2021 No comment en tered. [facility] ME] BY Ordering Provid er: CARIDAD DENNIS AUTOMATED Report Releas ed Date/Time: Feb 28, 2021 06:22 PM COUNT Reporting Lab: [facility] [place] [address] Performing Lab: [facility] [place] [address] CBC PLATELETS 286 150 - 400 07/29 Specimen Typ e: BLOOD [place] [#/VOLUME] /2021 No comment en tered. [facility] IN BLOOD Ordering Provi dutch: CARIDAD DENNIS BY Report Released Date/Time: Feb 28, 2021 06:22 PM AUTOMATED Reporting Lab : [facility] COUNT [place] [address] Performing Lab: [facility] [address] [facility] [address] CBC PLATELET 9.5 7.4 - 10.4 07/29 Specimen Typ e: BLOOD [place] MEAN /2021 No comment enter ed. [facility] VOLUME Ordering Provid er: CARIDAD DENNIS [ENTITIC Report Release d Date/Time: Feb 28, 2021 06:22 PM VOLUME] IN Reporting La b: [facility] BLOOD BY [address] [facility] [place] [facility] [address] AUTOMATED Performing L ab: [facility] COUNT [address] [facility] [address] CBC ERYTHROCYT 16.8 11.5 - 06/10 H Specimen Type : BLOOD [place] E 14.5 /2021 No comment enter ed. [facility] DISTRIBUTI Ordering Pro vider: CARIDAD DENNIS ON WIDTH Report Release d Date/Time: Feb 28, 2021 06:22 PM [RATIO] BY Reporting La b: [facility] AUTOMATED [facility] [address] COUNT Performing Lab: [facility] [address] [facility] [address] HEMOGLOB HEMOGLOBIN 7.0 4.0 - 6.0 06/10 H Specimen T ype: BLOOD [place] IN A1C A1C/HEMOGL /2021 No comment en tered. [facility] OBIN.TOTAL Ordering Pro vider: CARIDAD DENNIS IN BLOOD Report Release d Date/Time: Feb 28, 2021 06:22 PM Reporting Lab: [facility] [address] [facility] [address] Performing Lab: [facility] [address] [facility] [address] COVID-19 SARS-COV-2 Not 04/28 Specimen Typ e: NASOPHARYNGEAL [place] AND FLU (COVID-19) Detected /2021 No comment e ntered. [facility] SCRN RNA Ordering Provid er: CARIDAD DENNIS PANEL [PRESENCE] Report Relea sed Date/Time: Apr 28, 2021 02:10 PM (FLUVID) IN Reporting Lab: [facility] RESPIRATOR [facility] [address] Y SPECIMEN Performing L ab: [facility] BY [address] [facility] [address] WITH PROBE DETECTION COVID-19 INFLUENZA Not 04/28 Specimen Type : NASOPHARYNGEAL [place] AND FLU VIRUS A Detected /2021 No comment ente red. [facility] SCRN RNA Ordering Provid er: CARIDAD DENNIS PANEL [PRESENCE] Report Relea sed Date/Time: Apr 28, 2021 02:10 PM (FLUVID) IN Reporting Lab: [facility] RESPIRATOR [facility] [address] Y SPECIMEN Performing L ab: [facility] BY [address] [address] [facility] [address] WITH PROBE DETECTION COVID-19 INFLUENZA Not 03 Specimen Type : NASOPHARYNGEAL [place] AND FLU VIRUS B Detected /2021 No comment ente red. [facility] SCRN RNA Ordering Provid er: CARIDAD DENNIS PANEL [PRESENCE] Report Relea sed Date/Time: Apr 28, 2021 02:10 PM (FLUVID) IN Reporting Lab: [facility] RESPIRATOR [address] [facility] [address] Y SPECIMEN Performing L ab: [facility] BY [place] [address] WITH PROBE DETECTION HEMOGLOB HEMOGLOBIN 8.0 4.0 - 6.0 03/10 H Specimen T ype: BLOOD [place] IN A1C A1C/HEMOGL /2021 No comment en tered. [facility] OBIN.TOTAL Ordering Pro vider: CARIDAD DENNIS IN BLOOD Report Release d Date/Time: Apr 25, 2021 12:00 PM Reporting Lab: [facility] [place] [address] Performing Lab: [facility] [place] [address] PROTHROM INR IN 1.1 0.8 - 1.1 04/28 Specimen Type : PLASMA [place] BIN PLATELET /2021 No comment ente red. [facility] TIME/INR POOR Ordering Provi dutch: CARIDAD DENNIS PLASMA BY Report Releas ed Date/Time: Apr 25, 2021 12:00 PM COAGULATIO Reporting La b: [facility] N [place]AY [place] [address] Performing Lab: [facility] [place] [address] PROTHROM PROTHROMBI 13.2 9.4 - 12.5 03/10 H Specimen Type: PLASMA [place] BIN N TIME /2021 No comment enter ed. [facility] TIME/INR (PT) Ordering Provi dutch: CARIDAD DENNIS Report Released Date/Time: Apr 25, 2021 12:00 PM Reporting Lab: [facility] [address] [facility] [address] Performing Lab: [facility] [place] [address] TSH THYROTROPI 0.73 0.35 - 04/28 Specimen Type : [place]ASMA [place] W/REFLEX N 4.94 /2021 No comment ente red. [facility] TO FREE [UNITS/VOL Ordering Pro vider: CARIDAD DENNIS T4 UME] IN Report Released Date/Time: Apr 25, 2021 12:00 PM SERUM OR Reporting Lab: [facility] PLASMA [address] [facility] [address] Performing Lab: [facility] [address] [facility] [address] Vital Signs Combined list of inpatient and outpatient Vital Signs from Department of Defense and Veterans Affairs, ranging from 12 months to all on record, depending upon the facility. Vital Sign Value Date Comments Source SYSTOLIC BLOOD PRESSURE 171 12/15/2021 10:36:44 [facility] DIASTOLIC BLOOD PRESSURE 90 12/15/2021 10:36:44 [facility] PULSE OXIMETRY 96% 12/15/2021 10:36:44 [facility] WEIGHT 245 12/15/2021 10:36:44 [facility] BMI 32kg/m2 12/15/2021 10:36:44 [facility] PAIN 0 12/15/2021 10:36:44 [facility] TEMPERATURE 98.1 12/15/2021 10:36:44 [facility] PULSE 66 12/15/2021 10:36:44 [facility] RESPIRATION 18 12/15/2021 10:36:44 [facility] SYSTOLIC BLOOD PRESSURE 161 09/04/2021 19:34:00 [facility] DIASTOLIC BLOOD PRESSURE 75 09/04/2021 19:34:00 [facility] PULSE OXIMETRY 96% 09/04/2021 19:34:00 [facility] PAIN 8 09/04/2021 19:34:00 [facility] PULSE 73 09/04/2021 19:34:00 [facility] RESPIRATION 16 09/04/2021 19:34:00 [facility] SYSTOLIC BLOOD PRESSURE 145 08/28/2021 13:02:00 [facility] DIASTOLIC BLOOD PRESSURE 85 08/28/2021 13:02:00 [facility] PULSE OXIMETRY 96% 08/28/2021 13:02:00 [facility] PAIN 4 08/28/2021 13:02:00 [facility] TEMPERATURE 97.9 08/28/2021 13:02:00 [facility] PULSE 75 08/28/2021 13:02:00 [facility] RESPIRATION 16 08/28/2021 13:02:00 [facility] SYSTOLIC BLOOD PRESSURE 127 07/29/2021 13:02:06 [facility] DIASTOLIC BLOOD PRESSURE 80 07/29/2021 13:02:06 [facility] PULSE OXIMETRY 93% 07/29/2021 13:02:06 [facility] WEIGHT 230 07/29/2021 13:02:06 [facility] BMI 30kg/m2 07/29/2021 13:02:06 [facility] PAIN 5 07/29/2021 13:02:06 [facility] HEIGHT 73 07/29/2021 13:02:06 [facility] TEMPERATURE 98.5 07/29/2021 13:02:06 [facility] PULSE 73 07/29/2021 13:02:06 [facility] RESPIRATION 18 07/29/2021 13:02:06 [facility] SYSTOLIC BLOOD PRESSURE 157 04/25/2021 11:00:37 [facility] DIASTOLIC BLOOD PRESSURE 82 04/25/2021 11:00:37 [facility] PULSE OXIMETRY 96% 04/25/2021 11:00:37 [facility] WEIGHT 04/25/2021 11:00:37 [facility] PAIN 5 04/25/2021 11:00:37 [facility] HEIGHT 04/25/2021 11:00:37 [facility] TEMPERATURE 97.8 04/25/2021 11:00:37 [facility] PULSE 76 04/25/2021 11:00:37 [facility] RESPIRATION 18 04/25/2021 11:00:37 [facility] Encounters Combined list of: 1) Encounters from Department of Veterans Affairs facilities going back up to the last 18 months. 2) Encounters from the Department of Defense facilities going back up to 280 months. Location Location Encounter Encounter Reason Attending ADM DC Stat us Disposition Source Details Type Number For Provider Date Date Visit OFFICE O/P 72990-6.61 [facility] MADELINE URENA 06/22 [place] EST MOD [id number] is: LIE [facility] 30-39 MIN ICD-10- HCS CM I50.20 Unspeci fied systoli c (conges tive) heart failure
wi th Provide r Comment s: systoli c (conges tive) heart failure Outpatient [id number] BASHIR,RHONDA 06/22 [place] Encounter [id number] [facility] THERAPEUTI 08275-6.61 [facility] [place] 06/23 [place] C [id number] is: ,JAVIER [facility] EXERCISES ICD-10- HCS CM Z74.09 Other reduced mobilit y
w ith Provide r Comment s: Reduced Mobilit y ORTHOPEDIC 10626-3 Diagnos CUONG, 06/25 [place] SHOE [id number] is: ALDA [facility] MODIFICA ICD-10- HCS NOS CM M14.671 Charcot 's joint, right ankle and foot
with Provide r Comment s: Charcot 's Joint, right Ankle and Foot HC PRO 07862-261 Diagnos BENLANDYTE,J 06/30 [place] PHONE CALL [id number] is: AMI [facility] 21-30 MIN ICD-10- HCS CM Z71.89 Other specifi ed child welfare counselor ing<br/ >with Provide r Comment s: Other specifi ed Repair Manager ing Outpatient [id number] 07/02 [place] Encounter [id number] [facility] GAIT 03422-7.61 [facility] [place] 07/02 [place] TRAINING [id number] is: ,[facility] THERAPY ICD-10- HCS CM R26.89 Other abnorma lities of gait and mobilit y
w ith Provide r Comment s: Other abnorma lities of gait and mobilit y Outpatient [id number] 07/05 [place] En[facility] [id number] [facility] 06737-0.61 07/06 [place] Encounter [id number] [facility]P 42558-9. 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
with Provide r Comment s: Age-rel ated nuclear catarac t, bilater al OFFICE O/P 13196-761 Diagnos AREVALO,JOSEPH 07/09 [place] EST MOD [id number] is: XUAN [facility] 30-39 MIN ICD-10- HCS CM H25.13 Age-rel ated nuclear catarac t, bilater al
with Provide r Comment s: Age-rel ated nuclear catarac t, bilater al Outpatient 92627-0.61 07/09 [place] Encounter [id number] /2020 [facility] Out[facility] 71117-3.61 07/09 [place] Encounter [id number] /2020 [facility] Outpatient 45339-0.61 07/09 [place] Encounter [id number] /2020 [facility] OFFICE O/P 74266-8.61 Diagnos 07/09 [place] EST [id number] is: /2020 [facility] MINIMAL ICD-10- HCS PROB CM U07.1 COVID-1 9
w ith Provide r Comment s: 2018- oV acute respira tory disease Outpatient 56202-5.61 07/09 [place] Encounter [id number] /2020 [facility] HC PRO 75141-9.61 Diagnos DARY,J 07/09 [place] PHONE CALL 8.91294254 is: AMI L [facility] 5-10 MIN ICD-10- HCS CM Z71.89 Other specifi ed child welfare counselor ing<br/ >with Provide r Comment s: Other specifi ed Repair Manager ing OFFICE O/P 56934-6.61 Diagnos LEONARD MCDONALD 07/09 [place] EST LOW 8.90906756 is: [facility] 20-29 MIN ICD-10- HCS CM Z01.818 Encount er for other preproc edural examina tion
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
w ith Provide r Comment s: Restles s legs syndrom e (SCT [id number] 8) Outpatient 35506-9.61 SPIKE KULKARNI 07/12 [place] Encounter [id number] N [facility] Outpatient 54404-8.61 Diagnos AREVALO,APR 23 [place] Encounter [id number] is: XUAN [facility] ICD-10- HCS CM H25.11 Age-rel ated nuclear catarac t, right eye<br/ >with Provide r Comment s: Age-rel ated nuclear catarac t, right eye XCAPSL 83942-6.61 LUCY RUIZ 07/12 [place] CTRC RMVL [id number] /2021 [facility] W/O ECP HCS SPECIAL 45080-8.61 Diagnos SPIKE KULKARNI 07/12 [place] ANESTHESIA 8.65024703 is: N GABBI O [facility] ICD-10- HCS CM H25.11 Age-rel ated nuclear catarac t, right eye<br/ >with Provide r Comment s: Age-rel ated nuclear catarac t, right eye Outpatient 01770-5.61 07/12 [place] Encounter [id number] /2020 [facility] POSTOP 18811-9.61 Diagnos MICKEY,APR 23 [place] FOLLOW-UP 8.38607417 is: [facility] VISIT ICD-10- HCS CM H25.12 Age-rel ated nuclear catarac t, left eye<br/ >with Provide r Comment s: Age-rel ated nuclear catarac t, left eye Outpatient 17290-3.61 07/13 [place] Encounter [id number] /2020 [facility] Outpatient 01441-7.61 07/14 [place] Encounter [id number] /2020 [facility] POSTOP 86611-4.61 Abdiel AREVALO,APR 24 [place] FOLLOW-UP 8.72375691 is: [facility] VISIT ICD-10- HCS CM H25.12 Age-rel ated nuclear catarac t, left eye<br/ >with Provide r Comment s: Age-rel ated nuclear catarac t, left eye Outpatient 18827-1.61 07/20 [place] Encounter [id number] [facility] HCS OFFICE O/P 11282-1.61 ENRIKE Harrison 07/20 [place] EST [id number] is: KAI [facility] MINIMAL ICD-10- HCS PROB CM Z71.89 Other specifi ed child welfare counselor ing<br/ >with Provide r Comment s: Other specifi ed Repair Manager ing Outpatient 23701-5.61 RHONDA CAMEJO 07/21 [place] Encounter [id number] [facility] [facility] HEARING 70176-5.61 ERIN Garcia 07/21 [place] AID 8.25749579 is: AEL [facility] FITTING/CH ICD-10- HCS ECKING CM Z46.1 Encount er for fitting and adjustm ent of hearing aid<br/ >with Provide r Comment s: Encount er for fitting and adjustm ent of hearing aid GAIT 78595-6.61 Diagnos BINH REYNOSO 07/26 [place] TRAINING 8.62314307 is: SONIA T [facility] THERAPY ICD-10- HCS CM Z74.09 Other reduced mobilit y
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
with Provide r Comment s: Charcot 's Joint, right Ankle and Foot POSTOP 70842-4 Diagnos MICKEY,MAR 08/11 [place] FOLLOW-UP [id number] is: XUAN [facility] VISIT ICD-10- [facility] CM Z96.1 Presenc e of intraoc ular lens
with Provide r Comment s: Pseudop hakia Outpatient 65402-4 Diagnos PARADISE,H 08/11 [place] Encounter [id number] is: HIWOT ST[place] ICD-10- [facility] CM E11.8 Type 2 diabete s mellitu s with unspeci fied complic ations< br/>wit h Provide r Comment s: Diabete s mellitu s (SCT 6539402 9) Outpatient Diagnos BENFANTE,J 08/11 [place] Encounter [id number] is: AMI L [place] [place] ICD-10- HCS CM Z71.89 Other specifi ed child welfare counselor ing<br/ >with Provide r Comment s: Other specifi ed Repair Manager ing Outpatient 98599-3 Diagnos MARISA,GARCIA 08/11 [place] Encounter [id number] is: NAH [facility] [place] ICD-10- HCS CM I73.9 Periphe ral vascula r disease , unspeci fied
with Provide r Comment s: Periphe ral Vascula r Disease , Unspeci fied Outpatient 57529-3.08/12 [place] En[place] [id number] /2020 [facility] Outpatient 47812-9.61 08/16 [place] Encounter [id number] /2020 [facility] HC PRO 60098-9. Diagnos DARY,J 08/17 [place] PHONE CALL 8.59485620 is: AMI L [facility] 5-10 MIN ICD-10- HCS CM Z71.89 Other specifi ed child welfare counselor ing<br/ >with Provide r Comment s: Other specifi ed Repair Manager ing HC PRO 89558-4 Diagnos DARY,J 08/17 [place] PHONE CALL 8.23819842 is: AMI L [facility] 5-10 MIN ICD-10- HCS CM Z71.89 Other specifi ed child welfare counselor ing<br/ >with Provide r Comment s: Other specifi ed Repair Manager ing Outpatient 40730-0.61 08/18 [place] Encounter [id number] /2020 [facility] OFFICE O/P 28898-6.61 Diagnos [facility],APR 25 [place] EST [place] 8.37133740 is: Y T [facility] 40-54 MIN ICD-10- HCS CM E11.621 Type 2 diabete s mellitu s with foot ulcer<b r/>with Provide r Comment s: 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 Outpatient 55085-1.61 BASHIR,RHONDA 08/20 [place] Encounter [id number] [facility] POSTOP 82118-7.61 Diagnos AREVALO,APR 25 [place] FOLLOW-UP 8.26639958 is: XUAN [facility] VISIT ICD-10- HCS CM Z98.42 Catarac t extract ion status, left eye<br/ >with Provide r Comment s: Catarac t Extract ion Status, left Eye Outpatient 23028-0.61 08/26 [place] Encounter [id number] /2020 [facility] OFFICE O/P 75594-0.61 Diagnos ROSSI,APR 25 [place] EST [place] 8.12388567 is: Y T [facility] 40-54 MIN ICD-10- HCS CM E11.621 Type 2 diabete s mellitu s with foot ulcer<b r/>with Provide r Comment s: 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 ORTHOPEDIC 87872-0.61 Diagnos CUONG, 08/27 [place] SHOE 8.27342439 is: ALDA J /2020 [facility] MODIFICA ICD-10- HCS NOS CM E11.621 Type 2 diabete s mellitu s with foot ulcer<b r/>with Provide r Comment s: 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 HC PRO 63311-0.61 Diagnos DARY,J 08/30 [place] PHONE CALL [id number] is: AMI L [facility] 5-10 MIN ICD-10- HCS CM Z71.89 Other specifi ed child welfare counselor ing<br/ >with Provide r Comment s: Other specifi ed Repair Manager ing Outpatient 53540-5.61 /16 [place] Encounter [id number] /2020 [facility] Outpatient 15460-3.61 09/09 [place] Encounter [id number] /2020 [facility] OFFICE O/P 23222-461 Diagnos SCHEURER,R 09/10 [place] EST SF 8.64348592 is: OLIVER A [facility] 10-19 MIN ICD-10- HCS CM 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
with Provide r Comment s: Pseudop hakia OFFICE O/P 74361-3.61 Diagnos GISSELLE FOOTE 09/20 [place] EST MOD 8.63670062 is: M [facility] 30-39 MIN ICD-10- HCS CM N52.8 Other male erectil e dysfunc tion
with Provide r Comment s: Other Male Erectil e Dysfunc tion ORTHOPEDIC 29312-6.61 Diagnos CUONG 09/21 [place] SHOE 8.19940989 is: ALDA J [facility] MODIFICA ICD-10- [facility] NOS CM E11.621 Type 2 diabete s mellitu s with foot ulcer<b r/>with Provide r Comment s: 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 Outpatient 68197-2.61 BASHIRRHONDA 09/23 [place] Encounter [id number] OLE [facility] OFFICE O/P 56231-5.61 Diagnos ROSSI,APR 26 [place] NEW MOD 8.60014560 is: Y T [facility] 45-59 MIN ICD-10- [facility] CM E11.621 Type 2 diabete s mellitu s with foot ulcer<b r/>with Provide r Comment s: 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 Outpatient 22953-5.61 09/23 [place] Encounter [id number] /2020 [facility] Outpatient 11826-8.61 / [place] En[place] [id number] /2020 [facility] Outpatient 00998-6.61 / [place] En[place] [id number] /2020 [facility] OFFICE O/P 03339-0.61 Diagnos ROSSI,APR 26 [place] EST HI 8.44322054 is: Y T [facility] 40-54 MIN ICD-10- [facility] CM E11.621 Type 2 diabete s mellitu s with foot ulcer<b r/>with Provide r Comment s: 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 Outpatient 35352-7.61 09/30 [place] Encounter [id number] /2020 [facility] Outpatient 08602-8.61 10/04 [place] Encounter [id number] /2020 [facility] ORAL 29591-3.61 MARIA DEL CARMEN Patton 10/04 [place] HYGIENE 8.78657026 is: A L [facility] INSTRUCTIO ICD-10- HCS N CM K03.6 Deposit s [accret ions] on teeth<b r/>with Provide r Comment s: Deposit s [accret ions] on teeth Outpatient 51439-7.61 10/05 [place] Encounter [id number] /2020 [facility] Outpatient 12965-0.61 10/08 [place] Encounter [id number] /2020 [facility] Outpatient 83183-4.61 10/08 [place] Encounter [id number] /2020 [facility] CPTR OPHTH 83602-6.61 Diagnos AREVALO,APR 26 [place] DX IMG 8.92274852 is: XUAN [facility] POST SEGMT ICD-10- HCS CM Z96.1 Presenc e of intraoc ular lens
with Provide r Comment s: Pseudop hakia OFFICE O/P 31025-4.61 Diagnos LATTERY, 10/11 [place] EST 8.16727473 is: RISTINE A [facility] MINIMAL ICD-10- HCS PROB CM Z71.89 Other specifi ed child welfare counselor ing<br/ >with Provide r Comment s: Other specifi ed Repair Manager ing Outpatient 72778-9.61 10/12 [place] Encounter [id number] /2020 [facility] ORTHOTIC 20588-0.61 Diagnos CUONG, 10/12 [place] MGMT&TRAIN 8.74483269 is: ALDA J [facility] G 1ST ENC ICD-10- HCS CM E11.621 Type 2 diabete s mellitu s with foot ulcer<b r/>with Provide r Comment s: 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 Outpatient 51320-5.61 10/13 [place] Encounter [id number] [facility] OFF[facility] O/P 82875-7.61 Diagnos ROSSI,APR 26 [place] EST [place] 8.49150271 is: Y T [facility] 40-54 MIN ICD-10- HCS CM E11.621 Type 2 diabete s mellitu s with foot ulcer<b r/>with Provide r Comment s: 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 Outpatient 96351-5.61 10/14 [place] Encounter [id number] /2020 [facility] Outpatient 55881-2.61 10/17 [place] Encounter [id number] /2020 [facility] Outpatient 70840-2.61 10/17 [place] Encounter [id number] /2020 [facility] ROUT FOOT 55452-3.61 Diagnos YOUNG,BEAT 10/19 [place] CARE PER 8.88709288 is: [facility] VISIT ICD-10- HCS CM L60.3 Nail dystrop hy
with Provide r Comment s: Nail dystrop hy Outpatient 06348-9.61 10/19 [place] Encounter [id number] /2020 [facility] Outpatient 40727-8.61 BOECARYN,RHONDA 10/21 [place] Encounter [id number] OLE M [facility] Outpatient 14482-5.61 10/21 [place] Encounter [id number] /2020 [facility] OFFICE O/P 71495-9.61 Diagnos ROSSI,MAR 10/21 [place] EST MOD 8.05116023 is: Y T [facility] 30-39 MIN ICD-10- HCS CM E11.621 Type 2 diabete s mellitu s with foot ulcer<b r/>with Provide r Comment s: 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 ORTHC/PROS 50088-8.61 Diagnos SCHTRESR,J 10/28 [place] TC MGMT 8.48420965 is: EFFSANJAY J /2020 [place] SBSQ ENC ICD-10- HCS CM E11.621 Type 2 diabete s mellitu s with foot ulcer<b r/>with Provide r Comment s: 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 ELECTROCAR 51993-1.61 Diagnos CHANDRASHE 11/01 [place] DIOGRAM 8.95572138 is: LEONOR,Y S [facility] COMPLETE ICD-10- HCS CM Z13.6 Encount er for screeni ng for cardiov ascular disorde rs
with Provide r Comment s: Encount er for Screeni ng for Cardiov ascular Disorde rs OFFICE O/P 51797-3.61 Diagnos PROEBSTLE, 11/01 [place] EST MOD 8.34854501 is: MIGUEL /2020 [facility] 30-39 MIN ICD-10- B HCS CM Z01.818 Encount er for other preproc edural examina tion
with Provide r Comment s: PreOp Exam IMMUNIZATI 22810-0.61 Diagnos DESLAURIER 11/01 [place] ON ADMIN 8.32903194 is: S,DORI /2020 [facility] ICD-10- [facility] CM Z23 Encount er for immuniz ation<b r/>with Provide r Comment s: Encount er for Immuniz ation OFFICE O/P 77747-2 Diagnos ROSSI,APR 27 [place] EST [place] 8.97708597 is: Y T [facility] 40-54 MIN ICD-10- HCS CM E11.621 Type 2 diabete s mellitu s with foot ulcer<b r/>with Provide r Comment s: 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 ORTHC/PROS 95803-6.61 Diagnos MINNIETeodora 11/04 [place] TC MGMT 8.57828466 is: EFFREY J /2020 [facility] SBSQ ENC ICD-10- HCS CM Z86.31 Persona l history of diabeti c foot ulcer<b r/>with Provide r Comment s: Persona l History of Diabeti c Foot Ulcer Outpatient 43854-6.61 11/08 [place] Encounter [id number] [facility] SELF-MGMT 25944-6.61 Diagnos ERIN DOMINGUEZ 11/08 [place] EDUC & 8.23294516 is: AEL F [facility] TRAIN 1 PT ICD-10- HCS CM H90.3 Sensori neural hearing loss, bilater al
with Provide r Comment s: Sensori neural hearing loss, bilater al OFFICE O/P 02960-6.61 Diagnos ROSSI,APR 27 [place] EST HI 8.56276013 is: Y T [facility] 40-54 MIN ICD-10- HCS CM E11.621 Type 2 diabete s mellitu s with foot ulcer<b r/>with Provide r Comment s: 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 Outpatient 37798-0.61 11/11 [place] Encounter [id number] /2020 [facility] Outpatient 60177-5.61 11/12 [place] Encounter [id number] /2020 [facility] Outpatient 07717-3.61 PARADISE,H 11/12 [place] Encounter [id number] HIWOT STUART /2020 O [facility] OFFICE O/P 91456-3.61 Diagnos ROJO,TO 11/12 [place] EST HI 8.76060360 is: RY L [facility] 40-54 MIN ICD-10- HCS CM 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<b r/>with Provide r Comment s: Coronar y artery disease (SCT 7532375 8) Outpatient 90179-8 ROJO,TO 11/12 [place] Encounter [id number] [facility] Outpatient 47533-1.61 11/12 [place] Encounter [id number] /2020 [facility] Outpatient 15730-7.61 Diagnos SCHEURER,R 11/12 [place] Encounter [id number] is: LOIVER A [facility] ICD-10- HCS CM H02.401 Unspeci fied ptosis of right eyelid< br/>wit h Provide r Comment s: Unspeci fied ptosis of right eyelid REPAIR 50736-4.61 SLAVA FRANCO 11/12 [place] BROW [id number] MICHAEL L [facility] DEFECT HCS SPECIAL 49045-4 Diagnos ROJO,TO 11/12 [place] ANESTHESIA 8.59521223 is: RY L [facility] SERVICE ICD-10- HCS CM H02.401 Unspeci fied ptosis of right eyelid< br/>wit h Provide r Comment s: Unspeci fied ptosis of right eyelid Outpatient 71603-4.61 11/12 [place] Encounter [id number] [facility] AFO MOLDED 26883-1.61 Teodora Munguia 11/16 [place] TO PATIENT 8.39304308 is: CLAUDIA O [facility] [place] PLASTI ICD-10- [facility] CM E11.621 Type 2 diabete s mellitu s with foot ulcer<b r/>with Provide r Comment s: 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 Outpatient 24589-5.61 11/17 [place] Encounter [id number] [facility] Outpatient 18835-9.61 BOECARYN,RHONDA 11/22 [place] Encounter [id number] [facility] EMERGENCY 62781-7.61 Diagnos CHUCK HALL 11/24 [place] DEPT VISIT 8.77546854 is: IN [facility] ICD-10- [facility] CM H01.009 Unspeci fied blephar itis unspeci fied eye, unspeci fied eyelid< br/>wit h Provide r Comment s: Unspeci fied Blephar itis unspeci fied Eye, unspeci fied Eyelid POSTOP 25370-7.61 Diagnos Leroy STANFORD 11/25 [facility] FOLLOW[facility]UP 8.05877557 is: OLIVER A [facility] VISIT ICD-10- [facility] CM Z48.810 Encntr for surgica l aftcr fol surgery on the sense organs< br/>wit h Provide r Comment s: Encntr for surgica l aftcr fol surgery on the sense organs Outpatient 56183-9.61 [place]ADISE,H 12/02 [place] Encounter [id number] HIWOT O [facility] Outpatient 10259-9.61 Diagnos BEAR,K 12/02 [place] Encounter [id number] is: JULIANNA [place] ICD-10- HCS CM Z23 Encount er for immuniz ation<b r/>with Provide r Comment s: Encount er for Immuniz ation ORTHC/PROS 65713-7.61 Teodora Munguia 12/07 [place] TC MGMT 8.00589180 is: CLAUDIA [facility] SBSQ ENC ICD-10- HCS CM E11.621 Type 2 diabete s mellitu s with foot ulcer<b r/>with Provide r Comment s: 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 Outpatient 96626-9.61 10/ [place] En[place] [id number] [facility] 18784-2.61 / [place] En[place] [id number] [facility] [place] 68037-5.61 / [place] En[place] [id number] /2020 [facility] HC PRO 84960-5.61 Diagnos GIBSON,BR 12/09 [place] PHONE CALL 8.07423609 is: IDGET [facility] [place] 5-10 MIN ICD-10- HCS CM H90.3 Sensori neural hearing loss, bilater al
with Provide r Comment s: Sensori neural hearing loss, bilater al OFFICE O/P 89121-0.61 Diagnos ROSSI,APR 28 [place] EST HI 8.84400740 is: Y T [facility] 40-54 MIN ICD-10- HCS CM E11.621 Type 2 diabete s mellitu s with foot ulcer<b r/>with Provide r Comment s: 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 HEARING 35051-7.61 Diagnos [facility], [facility] 12/13 [place] AID CHECK 8.94330532 is: HAEL C [facility] [place] BOTH EARS ICD-10- HCS CM H90.3 Sensori neural hearing loss, bilater al
with Provide r Comment s: Sensori neural hearing loss, bilater al Outpatient 63527-9.61 SYSTEM,CIS 12/14 [place] Encounter [id number] -AR [facility] Outpatient 01045-3.61 SYSTEM,CIS 12/14 [place] Encounter [id number] -AR [facility] HC PRO 55314-3.61 Diagnos [place] 12/14 [place] PHONE CALL 8.01549270 is: IE E [facility] [place] 5-10 MIN ICD-10- HCS CM Z71.89 Other specifi ed child welfare counselor ing<br/ >with Provide r Comment s: Other specifi ed child welfare counselor ing EMERGENCY 84982-461 Diagnos AURORATrey,S 12/14 [place] DEPT VISIT 8.80213913 is: GERRY [place] ICD-10- HCS CM R04.2 Hemopty sis<br/ >with Provide r Comment s: Hemopty sis (SCT [id number] 6) Outpatient 04827-461 12/14 [place] Encounter [id number] /2021 [facility] O/P 46216-2.61 Diagnos PARADISE,H 12/15 [place] EST HI [id number] is: HIWOT STUART /2020 [facility] 40-54 MIN ICD-10- HCS CM I73.9 Periphe ral vascula r disease , unspeci fied
with Provide r Comment s: Periphe ral vascula r disease (SCT [id number]) [place] [address]-3.61 Diagnos TEE, 12/15 [place] DIG [id number] is: RAFAEL Erica [facility] ASSMT&MGMT ICD-10- HCS 5-10 CM Z48.00 Encount er for change or removal of nonsurg wound dressin g
w ith Provide r Comment s: Encount er for Change or Removal of Nonsurg ical Wound Dressin g Outpatient 40813-8.61 12/16 [place] Encounter [id number] [facility] RMVL 22294-6.61 Diagnos ROSSI,MAR 12/16 [place] DEVITAL [id number] is: Y T [facility] TIS 20 ICD-10- HCS CM/< CM E11.621 Type 2 diabete s mellitu s with foot ulcer<b r/>with Provide r Comment s: 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 ORTHC/PROS 24349-1.61 Diagnos MINNIE,J 12/16 [place] TC MGMT [id number] is: CLAUDIA J /2020 [facility] SBSQ ENC ICD-10- HCS CM E11.621 Type 2 diabete s mellitu s with foot ulcer<b r/>with Provide r Comment s: 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 58667-8.61 Diagnos CUONG 12/16 [place] INSERT [id number] is: ALDA J /2020 [facility] Erickson A CUSTOM ICD-10- [facility] MOLD CM E11.621 Type 2 diabete s mellitu s with foot ulcer<b r/>with Provide r Comment s: 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 PT EVAL 75851-4.61 Diagnos ADAN JACKSON 12/16 [place] LOW [id number] is: LOIDA P /2020 [facility] Georgina A COMPLEX 20 ICD-10- [facility] MIN CM R26.9 Unspeci fied abnorma lities of gait and mobilit y
w ith Provide r Comment s: Unspeci fied Abnorma lities of Gait and Mobilit y Outpatient 12113-4.61 12/17 [place] [id number] [facility] 65384-7.61 12/21 [place] En[facility] [id number] /[facility] 15151-7.61 Diagnos ROSSI,MAR 12/23 [place] EST SF [id number] is: Y T [facility] [place] 10-19 MIN ICD-10- [facility] CM E11.621 Type 2 diabete s mellitu s with foot ulcer<b r/>with Provide r Comment s: 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 Outpatient 17340-1.61 12/24 [place] Encounter [id number] /2020 [facility] Outpatient 50909-1.61 12/27 [place] Encounter [id number] /2020 [facility] Outpatient 59288-9.61 12/28 [place] Encounter [id number] /2020 [facility] OFFICE O/P 41899-7.61 Diagnos SAUMYA,AD 12/31 [place] EST LOW [id number] is: AM R /2020 [facility] 20-29 MIN ICD-10- [facility] CM M14.671 Charcot 's joint, right ankle and foot
with Provide r Comment s: Charcot 's Joint, right Ankle and Foot ELECT[employer]AR 41727-9 Diagnos RODRICK SOTO 01/05 [place] DIOGRAM [id number] is: NZI [facility] COMPLETE ICD-10- HCS CM Z13.6 Encount er for screeni ng for cardiov ascular disorde rs
with Provide r Comment s: Encount er for Screeni ng for Cardiov ascular Disorde rs OFFICE O/P 44335-6. Diagnos PARADISE,H 01/05 [place] EST LOW 8.01917076 is: HIWOTSasha STUART [facility] 20-29 MIN ICD-10- HCS CM E11.8 Type 2 diabete s mellitu s with unspeci fied complic ations< br/>wit h Provide r Comment s: Diabete s mellitu s (SCT [id number] 9) OFFICE O/P Diagnos DIANARADHA 01/05 [place] EST MOD 8.00344980 is: JASEN L [facility] 30-39 MIN ICD-10- HCS CM Z96.1 Presenc e of intraoc ular lens
with Provide r Comment s: Presenc e of intraoc ular lens Outpatient 47022-5.61 01/06 [place] Encounter [id number] /2020 [facility] HC PRO 10974-2.61 Diagnos LISA MENDEZ 01/10 [place] PHONE CALL [id number] is: ERNESTO WHITFIELD /2020 [facility] 11-20 MIN ICD-10- HCS CM H90.3 Sensori neural hearing loss, bilater al
with Provide r Comment s: Sensori neural hearing loss, bilater al Outpatient 26796-8.61 01/12 [place] Encounter [id number] /2020 [facility] 61813-8.61 01/12 [place] En[place] [id number] /2020 [facility] 57074-4.61 BASHIR,RHONDA 01/14 [place] En[place] [id number] [facility] Out[facility] 92882-0.61 01/17 [place] En[place] [id number] /2020 [facility] Outpatient 29944-6.61 / [place] En[place] [id number] /2020 [facility] Outpatient 82120-0.61 01/24 [place] En[place] [id number] /2020 [facility] Outpatient 81357-1.61 FABY FERRARO 01/24 [place] Encounter [id number] Y C /2020 [facility] Outpatient 68321-3.61 Diagnos PARADISE,H 01/24 [place] Encounter [id number] is: HIWOT STUART /2020 [facility] [place] ICD-10- HCS CM E11.8 Type 2 diabete s mellitu s with unspeci fied complic ations< br/>wit h Provide r Comment s: Diabete s mellitu s (SCT [id number] 9) [place] [address]-7.61 Diagnos ERDAHL,AND 01/25 [place] DIG 8.60632425 is: CLARKE L /2020 [facility] ASSMT&MGMT ICD-10- HCS 5-10 CM 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
w ith Provide r Comment s: Restles s Legs Syndrom e Outpatient 90988-6.61 01/25 [place] En[place] [id number] /2020 [facility] WHEEL[facility] 95451-2.61 Diagnos ADAN JACKSON 01/27 [place] MNGMENT 8.05020521 is: LOIDA P /2020 [facility] TRAINING ICD-10- HCS CM R26.9 Unspeci fied abnorma lities of gait and mobilit y
w ith Provide r Comment s: Unspeci fied Abnorma lities of Gait and Mobilit y Outpatient 93313-1.61 12/ [place] En[place] [id number] /2020 [facility] Outpatient 90262-1.61 12/ [place] En[place] [id number] /2020 [facility] Outpatient 50823-3.61 12/ [place] En[place] [id number] /2020 [facility] OFFICE O[facility]P 28955-6.61 Diagnos ROSSI,MAR 02/02 [place] EST HI 8.09516976 is: Y T /2020 [facility] 40-54 MIN ICD-10- HCS CM E11.621 Type 2 diabete s mellitu s with foot ulcer<b r/>with Provide r Comment s: 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 [address]-0.61 Diagnos Teodora DIXON 02/04 [place] PHARM ADDL 8.33528725 is: ORDAN L /2020 [facility] 15 MIN ICD-10- HCS CM E11.8 Type 2 diabete s mellitu s with unspeci fied complic ations< br/>wit h Provide r Comment s: Diabete s mellitu s (SCT [id number] 9) Outpatient 15601-5.61 02/09 [place] Encounter [id number] /2020 [facility] Outpatient 66924-4.61 02/09 [place] En[place] [id number] /2020 [facility] 80409-9.61 02/09 [place] En[place] [id number] /2020 [facility] 98495-0.61 02/10 [place] Encounter [id number] /2020 [facility] ROUT FOOT 86885-6.61 Diagnos EVANGELINA,CARMEN 02/14 [place] CARE PER 8.04181352 is: ISTINE A /2020 [facility] VISIT ICD-10- HCS CM L84 Corns and callosi ties
with Provide r Comment s: Corns and callosi ties OFFICE O/P 54880-9.61 Diagnos SAUMYA,IGNACIO 02/14 [place] EST LOW 8.51634659 is: AM R /2020 [facility] 20-29 MIN ICD-10- HCS CM L60.8 Other nail disorde rs
with Provide r Comment s: Other nail disorde rs Outpatient 28121-9.61 02/16 [place] En[place] [id number] [facility] 97417-2.61 02/22 [place] En[place] [id number] /2021 [facility] Outpatient 08219-4.61 JUANITA ARNOLD 02/22 [place] Encounter [id number] NUNU M /2022 [facility] Outpatient 59272-3.61 02/23 [place] Encounter [id number] /2021 [facility] [place] [address]-2.61 Diagnos DENNISKRISTEN 02/23 [place] PHARM ADDL 8.58460079 is: REBECCA M [facility] 15 MIN ICD-10- HCS CM E11.8 Type 2 diabete s mellitu s with unspeci fied complic ations< br/>wit h Provide r Comment s: Diabete s mellitu s (SCT [id number] 9) OFFICE O/P 71743-961 Diagnos XOCHILTRICH 02/23 [place] EST MOD 8.34254846 is: IGGY L [facility] 30-39 MIN ICD-10- HCS CM L03.032 Celluli tis of left toe<br/ >with Provide r Comment s: Celluli tis of left Toe Outpatient 63777-1.61 02/28 [place] En[place] [id number] /2021 [facility] [place] [facility] [place] 51964-6.61 02/28 [place] En[place] [id number] /2021 [facility] Outpatient 39212-4.61 SYSTEM,CIS 03/01 [place] Encounter [id number] -ARK [facility] Outpatient 43407-9.61 SYSTEM,CIS 03/01 [place] Encounter [id number] -ARK [facility] HEARING 41035-3.61 Diagnos ANDENAS 03/01 [place] AID CHECK 8.71672724 is: VA,KI [facility] BOTH EARS ICD-10- RSTEN M [facility] CM H93.13 Tinnitu s, bilater al
with Provide r Comment s: Tinnitu s, bilater al Outpatient 84187-6.61 03/01 [place] Encounter [id number] /2021 [facility] EMERGENCY 67960-9.61 Diagnos JOPPA,STEP 03/01 [place] DEPT VISIT 8.14385379 is: KEYON JADIEL [facility] ICD-10- HCS CM L03.90 Celluli tis, unspeci fied
with Provide r Comment s: Celluli tis, unspeci fied Outpatient 83520-4.61 03/02 [place] Encounter [id number] /2021 [facility] OFFICE O/P 24579-7.61 Diagnos ROSSI,APR 19 [place] EST HI 8.95052607 is: Y T [facility] 40-54 MIN ICD-10- HCS CM E11.621 Type 2 diabete s mellitu s with foot ulcer<b r/>with Provide r Comment s: 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 Outpatient 68108-2.61 03/08 [place] En[place] [id number] /2021 [facility] Outpatient 06812-6.61 03/08 [place] En[place] [id number] /2021 [facility] Outpatient 12759-1.61 03/08 [place] Encounter [id number] /2021 [facility] Outpatient 24714-8.61 03/09 [place] Encounter [id number] /2021 [facility] OFFICE O/P 24126-1.61 Diagnos AREVALO,APR 19 [place] EST MOD 8.01427514 is: XUAN [facility] 30-39 MIN ICD-10- HCS CM Z96.1 Presenc e of intraoc ular lens
with Provide r Comment s: Pseudop hakia Outpatient 46240-9.61 03/10 [place] En[place] [id number] /2021 [facility] Outpatient 11025-7.61 03/14 [place] En[place] [id number] /2021 [facility] Outpatient 98367-9.61 BOECARYN,RHONDA 03/16 [place] Encounter [id number] OLE M /2021 [facility] Outpatient 56056-2.61 03/22 [place] Encounter [id number] /2021 [facility] ORTHOTIC 14155-7.61 Diagnos CUONG, 03/22 [place] MGMT&TRAIN 8.46786924 is: ALDA J /2021 [facility] G 1ST ENC ICD-10- HCS CM Z86.31 Persona l history of diabeti c foot ulcer<b r/>with Provide r Comment s: Persona l History of Diabeti c Foot Ulcer Outpatient 07620-5.61 03/23 [place] En[place] [id number] /2021 [facility] HCS OFFICE O/P 10125-7.61 Diagnos LINNETTE PINEDA 03/28 [place] EST LOW 8.73165975 is: REL [facility] 20-29 MIN ICD-10- HCS CM I50.9 Heart failure , unspeci fied
with Provide r Comment s: Heart failure (SCT 5430670 7) Outpatient 09357-2.61 03/29 [place] En[place] [id number] /2021 [facility] [place] [facility] [place] 67083-2.61 03/31 [place] En[place] [id number] /2021 [facility] THERAPEUTI 72394-3.61 Diagnos GARRETT MADDOX 03/31 [place] C 8.36643969 is: NNER W /2021 [facility] ACTIVITIES ICD-10- HCS CM M14.671 Charcot 's joint, right ankle and foot
with Provide r Comment s: Charcot 's Joint, right Ankle and Foot OFFICE O/P 19624-9.61 Diagnos ROSSI,MAR 04/07 [place] EST HI 8.34200379 is: Y T [place] 40-54 MIN ICD-10- HCS CM E11.621 Type 2 diabete s mellitu s with foot ulcer<b r/>with Provide r Comment s: 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 Outpatient 03978-2.61 04/08 [place] En[place] [id number] /2021 [facility] Out[place] 75109-2.61 04/13 [place] Encounter [id number] /2021 [facility] Out[place] 01690-3.61 04/13 [place] Encounter [id number] /2021 [facility] HCS OFFICE O/P 74203-3.61 Diagnos ISABELLASID 04/15 [place] EST 8.54694308 is: SANJAY BARRETT /2021 [place] MINIMAL ICD-10- HCS PROB CM H52.4 Presbyo lenny<br/ >with Provide r Comment s: Presbyo lenny Outpatient 60006-7.61 / [place] En[place] [id number] /2021 [facility] OFFICE O/P 24235-6.61 Diagnos PARADISE,H 04/25 [place] EST HI 8.94286405 is: HIWOT STUART [facility] 40-54 MIN ICD-10- HCS CM M19.91 Primary osteoar thritis , unspeci fied site
with Provide r Comment s: Osteoar thritis (SCT 7578802 06) Outpatient 03100-8.61 BOESCH,RHONDA 04/25 [place] Encounter [id number] [facility] Out[facility] 67249-0.61 04/25 [place] Encounter [id number] /2021 [facility] ELECTROCAR 96694-9.61 Diagnos PIPPADENISERODRICK 04/28 [place] DIOGRAM 8.64766307 is: NZI [facility] COMPLETE ICD-10- HCS CM Z13.6 Encount er for screeni ng for cardiov ascular disorde rs
with Provide r Comment s: Encount er for Screeni ng for Cardiov ascular Disorde rs Outpatient 68040-5.61 03/10 [place] Encounter [id number] /2021 [facility] 52863-6.61 03/10 [place] En[place] [id number] /2021 [facility] Outpatient 05944-8.61 /16 [place] En[place] [id number] /2021 [facility] HC PRO 22988-9.61 Diagnos MIKAEL,RH 05/09 [place] PHONE CALL 8.45403684 is: ONDA A /2021 [facility] 5-10 MIN ICD-10- HCS CM Z71.89 Other specifi ed child welfare counselor ing<br/ >with Provide r Comment s: Other specifi ed child welfare counselor ing Outpatient 67723-0.61 05/09 [place] Encounter [id number] /2021 [facility] Out[facility] 24530-7.61 05/10 [place] Encounter [id number] /2021 [facility] Out[facility] 92425-1.61 05/10 [place] Encounter [id number] /2021 [facility] ELECTROCAR 64851-0.61 Diagnos RODRICK SOTO 05/11 [place] DIOGRAM 8.60600859 is: NZI [facility] COMPLETE ICD-10- HCS CM Z13.6 Encount er for screeni ng for cardiov ascular disorde rs
with Provide r Comment s: Encount er for Screeni ng for Cardiov ascular Disorde rs OFFICE 87720-3.61 Diagnos ELDABRANDYTeodora 05/11 [place] CONSULTATI 8.26845612 is: OHN D [facility] ON ICD-10- HCS CM I35.0 Nonrheu matic aortic (valve) stenosi s
w ith Provide r Comment s: Aortic valve stenosi s ([facility] [id number] 4) Outpatient 10944-4.61 05/11 [place] Encounter [id number] /2021 [facility] Out[facility] 68188-2.61 05/11 [place] Encounter [id number] /2021 [facility] INJ 42441-4.61 Diagnos VERN,SCO 05/11 [place] PERFLUTREN 8.78224870 is: TT A [facility] LIP ICD-10- HCS MICROS,ML CM I35.0 Nonrheu matic aortic (valve) stenosi s
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
with Provide r Comment s: Charcot 's joint of foot ([facility] 6742746 02) [place] [address]-0.61 Diagnos WALEK,STEP 05/19 [place] DIG 8.44348536 is: HANIE [facility] ASSMT&MGMT ICD-10- HCS 5-10 CM E08.8 Diabete s due to underly ing conditi on w unsp complic ations< br/>wit h Provide r Comment s: Diabete s Mellitu s due to Underly ing Conditi on with unspeci fied Complic ations OFFICE O/P 14983-2 Diagnos SAUMYA,AD 05/20 [place] EST LOW 8.66766022 is: AM R [facility] 20-29 MIN ICD-10- HCS CM M14.671 Charcot 's joint, right ankle and foot
with Provide r Comment s: Charcot 's joint of foot ([facility] 4504266 02) [place] [address]-7.61 Diagnos TEE, 05/20 [place] DIG 8.35343371 is: RAFAEL Maldonado [facility] ASSMT&MGMT ICD-10- HCS 5-10 CM Z48.00 Encount er for change or removal of nonsurg wound dressin g
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
with Provide r Comment s: Charcot 's Joint, left Ankle and Foot Outpatient 28185-4.61 05/25 [place] Encounter [id number] /2021 [facility] Outpatient 47547-4.61 05/26 [place] Encounter [id number] /2021 [facility] Outpatient 77496-2.61 [place]ISE,H 05/27 [place] Encounter [id number] HIWOT STUART /2021 [facility] Outpatient 35827-5.61 05/27 [place] Encounter [id number] /2021 [facility] Outpatient 02284-8.61 05/31 [place] En[place] [id number] /2021 [facility] ADM 79292-2.61 Diagnos GUZMANEN, 06/02 [place] SARSCV2 8.06152542 is: CLAY DUVALL /2021 [facility] 30MCG ICD-10- [facility] TRS-SUCR B CM Z23 Encount er for immuniz ation<b r/>with Provide r Comment s: Encount er for Immuniz ation AFO POS 32898-0.61 Diagnos SCHILLER,J 06/06 [place] SOLID ANK 8.55351154 is: CLAUDIA Araiza /2021 [facility] PLASTIC [place] ICD-10- HCS CM 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
with Provide r Comment s: Charcot 's Joint, left Ankle and Foot Outpatient 99938-0.61 06/07 [place] Encounter [id number] [facility] Outpatient 23223-1.61 06/08 [place] En[place] [id number] /2021 [facility] OFFICE O/P 62359-6.61 Diagnos ROSSI,MAR 06/09 [place] EST [place] 8.23701452 is: Y T [facility] 40-54 MIN ICD-10- [facility] CM E11.621 Type 2 diabete s mellitu s with foot ulcer<b r/>with Provide r Comment s: 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 Outpatient 39078-6.61 06/13 [place] En[place] [id number] /2021 [facility] Outpatient 58070-8.61 Santos MAN 06/13 [place] Encounter [id number] SALEEM E /2021 [facility] Outpatient 09285-1.61 06/13 [place] En[place] [id number] /2021 [facility] Outpatient 79703-3.61 06/14 [place] En[place] [id number] /[facility]21 [facility] Out[facility] 68655-5.61 06/14 [place] En[place] [id number] /2021 [facility] Outpatient 74049-6.61 06/15 [place] En[place] [id number] /2021 [facility] Outpatient 70294-7. MELA WIGGINS 06/15 [place] Encounter [id number] THAN [facility] Outpatient 59603-5.61 06/16 [place] En[place] [id number] /2021 [facility] Outpatient 18481-6.61 06/17 [place] Encounter [id number] /2021 [facility] Outpatient 45855-3.61 MELA WIGGINS 06/17 [place] Encounter [id number] THAN C [facility] Outpatient 07109-6. Ashley Baez 06/21 [place] Encounter [id number] is: KIMBERLY J /2021 [place] ICD-10- HCS CM M62.81 Muscle weaknes s (genera lized)< br/>wit h Provide r Comment s: Muscle Weaknes s (Genera lized) Outpatient 12433-5.61 06/21 [place] Encounter [id number] /2021 [facility] Outpatient 77561-7.61 06/21 [place] En[place] [id number] /2021 [facility] Outpatient 57338-9 Diagnos MARCIN, 06/21 [place] Encounter [id number] is: CHESTER /2021 [place] ICD-10- HCS CM R13.12 Dysphag ia, orophar yngeal phase<b r/>with Provide r Comment s: Dysphag ia, Orophar yngeal Phase Outpatient 54160-8 05/ [place] Encounter [id number] /2021 [facility] Out[facility] 76132-3.61 05/04 [place] Encounter [id number] /2021 [facility] Out[facility] 67292-4.61 05/ [place] En[place] [id number] /2021 [facility] DEBRIDE 50754-3.61 Diagnos JAZMYN CASAREZ 06/22 [place] NAIL 1-5 [id number] is: CE /2021 [facility] A ICD-10- HCS CM L60.3 Nail dystrop hy
with Provide r Comment s: Nail dystrop hy Outpatient 18755-5.61 05/ [place] Encounter [id number] /2021 [facility] Out[facility] 18170-5.61 05/ [place] En[place] [id number] /2021 [facility] Outpatient 65321-6.61 / [place] En[place] [id number] /2021 [facility] Out[place] 23262-3.61 05/ [place] Encounter [id number] /2021 [facility] ORTHOTIC 16617-6.61 Diagnos MASSIMO HUTCHINS 06/27 [place] MGMT&TRAIN [id number] is: ALDA Araiza /2021 [facility] G 1ST ENC ICD-10- HCS CM E11.621 Type 2 diabete s mellitu s with foot ulcer<b r/>with Provide r Comment s: 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 Outpatient 99550-4.61 05/10 [place] Encounter [id number] /2021 [facility] Outpatient 81939-2.61 05/10 [place] Encounter [id number] /2021 [facility] Out[facility] 19589-0.61 05/11 [place] Encounter [id number] /2021 [facility] Outpatient 23275-7.61 05/12 [place] Encounter [id number] /2021 [facility] Outpatient 02179-7.61 05/16 [place] Encounter [id number] /2021 [facility] OFFICE O/P 29733-4.61 Diagnos BROOKE BAER 07/04 [place] EST MOD 8.27654283 is: HELL E /2021 [facility] 30-39 MIN ICD-10- HCS CM H04.123 Dry eye syndrom e of bilater al lacrima l glands< br/>wit h Provide r Comment s: Dry Eye Syndrom e of Bilater al Lacrima l Glands Outpatient 50325-6.61 07/05 [place] Encounter [id number] /2021 [facility] Outpatient 62470-6.61 07/05 [place] Encounter [id number] /2021 [facility] Outpatient 85486-8.61 07/05 [place] Encounter [id number] /2021 [facility] Outpatient 12135-4.61 07/06 [place] Encounter [id number] /2021 [facility] Outpatient 25711-0.61 07/07 [place] En[place] [id number] /[facility]P 55859-3.61 Diagnos ROSSI,MAR 07/07 [place] EST HI 8.85606387 is: Y T /2021 [facility] [place] 40-54 MIN ICD-10- HCS CM E11.621 Type 2 diabete s mellitu s with foot ulcer<b r/>with Provide r Comment s: 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 Outpatient 07788-9.61 07/08 [place] En[place] [id number] /2021 [facility] Outpatient 32130-6.61 07/11 [place] En[place] [id number] /2021 [facility] Outpatient 46737-8.61 CATALINA,CO 07/11 [place] Encounter [id number] NUNU M /2021 [facility] HC PRO 91993-7.61 Diagnos HILL STRINGER 07/13 [place] PHONE CALL [id number] is: L /2021 [facility] [place] 11-20 [place] ICD-10- HCS CM Z91.14 Patient 's other noncomp liance with medicat ion regimen
wi th Provide r Comment s: Patient 's other Noncomp liance with Medicat ion Regimen Outpatient 30438-7.61 05 [place] En[place] [id number] /2021 [facility] [place] [facility] Out[place] 75228-3.61 07/15 [place] En[place] [id number] /2021 [facility] [place] 14867-6.61 / [place] En[place] [id number] /2021 [facility] Out[place] 39433-0.61 06/ [place] En[place] [id number] /2021 [facility] Out[place] 89241-6.61 / [place] En[place] [id number] /2021 [facility] Out[place] 57420-2.61 07/29 [place] En[place] [id number] /[facility]P 23036-4.61 Diagnos PARADISE,H 07/29 [place] EST HI [id number] is: HIWOT STUART /2021 [facility] 40-54 MIN ICD-10- [facility] CM 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<b r/>with Provide r Comment s: Coronar y artery disease (SCT 3567706 8) Outpatient 84804-7.61 14 [place] En[place] [id number] /2021 [facility] [place] [facility] [place] 25673-7.61 08/04 [place] En[place] [id number] /2021 [facility] Out[place] 14567-8.61 08/05 [place] En[place] [id number] /2021 [facility] Out[place] 74157-2.61 08/08 [place] En[place] [id number] /2021 [facility] Out[place] 74654-3.61 08/11 [place] En[place] [id number] /2021 [facility] Outpatient 37707-0.61 08/12 [place] En[place] [id number] /2021 [facility] Out[facility] 65457-7.61 08/15 [place] En[place] [id number] /2021 [facility] Out[place] 17266-3.61 RHONDA CAMEJO 08/17 [place] Encounter [id number] OLE M /2021 [facility] Outpatient 23051-6.61 06 [place] Encounter [id number] /2021 [facility] ORTHC/PROS 38240-5.61 Diagnos Teodora HARTMAN 08/19 [place] MGMT [id number] is: EFFSANJAY J [facility] ENC ICD-10- HCS CM 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
with Provide r Comment s: Charcot 's Joint, left Ankle and Foot Outpatient [id number] 07/05 [place] Encounter [id number] /2021 [facility] Outpatient 49873-7.61 07/05 [place] Encounter [id number] /2021 [facility] Out[facility] 23026-6.61 07/ [place] Encounter [id number] /2021 [facility] Outpatient [id number] 07/ [place] En[place] [id number] /2021 [facility] Out[facility] 41993-7.61 07/ [place] En[facility] [id number] /[facility] HC [place] 99865-2.61 Diagnos BARBRA DANIELS 08/28 [place] PHONE CALL [id number] is: MYLES L [facility] 11-20 MIN ICD-10- HCS CM Z71.89 Other specifi ed child welfare counselor ing<br/ >with Provide r Comment s: Other specifi ed child welfare counselor ing EMERGENCY 90422-6.61 Diagnos WILIAN FAULKNER 08/28 [place] DEPT VISIT [id number] is: STANCE L [facility] ICD-10- H[facility] CM R68.84 Jaw pain
with Provide r Comment s: Jaw Pain Outpatient 42798-1.61 08/29 [place] Encounter [id number] /2021 [facility] HC PRO 77602-9.61 Diagnos DORIAN MCGUIRE 08/29 [place] PHONE CALL [id number] is: USMAN A [facility] 5-10 MIN ICD-10- HCS CM Z71.89 Other specifi ed child welfare counselor ing<br/ >with Provide r Comment s: Other specifi ed child welfare counselor ing HC PRO 37343-2.61 Diagnos LYLACAR 09/04 [place] PHONE CALL [phone] is: OLYN M [facility] 11-20 [facility] ICD-10- HCS CM Z71.89 Other specifi ed child welfare counselor ing<br/ >with Provide r Comment s: Other specifi ed child welfare counselor ing EMERGENCY 16285-2.61 Diagnos MORROW,AB 09/04 [place] DEPT VISIT [id number] is: DISAMAD [facility] ICD-10- HCS CM K08.89 Other specifi ed disorde rs of teeth and support ing structu res<br/ >with Provide r Comment s: Other specifi ed Disorde rs of Teeth and Support ing Structu res Outpatient 64611-5.61 09/05 [place] Encounter [id number] /2021 [facility] HCS ORTHC/PROS 38532-4.61 Diagnos Teodora HARTMAN 09/06 [place] MGMT [id number] is: EFFREY J /2021 [facility] SBSQ ENC ICD-10- HCS CM 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
with Provide r Comment s: Charcot 's Joint, left Ankle and Foot Outpatient 73950-2.61 09/08 [place] En[place] [id number] /2021 [facility] Outpatient 32022-4.61 09/09 [place] Encounter [id number] /2021 [facility] Outpatient 61390-7.61 09/09 [place] Encounter [id number] /2021 [facility] Outpatient 40749-0.61 09/09 [place] Encounter [id number] /2021 [facility] Outpatient 47568-7.61 09/09 [place] Encounter [id number] /2021 [facility] Outpatient 49420-7.61 RHONDA CAMEJO 09/15 [place] Encounter [id number] OLE [facility] OFFICE O/P 49391-8.61 Diagnos GISSELLE FOOTE 09/21 [place] EST MOD [id number] is: [facility] 30-39 MIN ICD-10- HCS CM N52.8 Other male erectil e dysfunc tion
with Provide r Comment s: Other Male Erectil e Dysfunc tion Outpatient 42038-1.61 08/ [place] Encounter [id number] /2021 [facility] Outpatient 73525-0.61 08/ [place] Encounter [id number] /2021 [facility] Outpatient 01957-6.61 FREYNOHELIAI 09/22 [place] Encounter [id number] /2021 [facility] 19946-4.61 / [place] Encounter [id number] /2021 [facility] 45063-4.61 08/ [place] Encounter [id number] /2021 [facility] Out[facility] 33143-2.61 09/28 [place] Encounter [id number] /2021 [facility] HEARING 38898-7.61 Diagnos KEYONA,[facility] 09/28 [place] AID CHECK [id number] is: HAEL H /2021 [facility] BOTH EARS ICD-10- HCS CM H90.3 Sensori neural hearing loss, bilater al
with Provide r Comment s: Sensori neural hearing loss, bilater al Outpatient 09359-6.61 09/29 [place] Encounter [id number] /2021 [facility] Outpatient 68023-7.61 Diagnos ROSSI,MAR 10/10 [place] Encounter [id number] is: Y T /2021 [facility] ICD-10- [facility] CM E11.621 Type 2 diabete s mellitu s with foot ulcer<b r/>with Provide r Comment s: 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 Outpatient 40588-5.61 RHONDA CAMEJO 10/10 [place] Encounter [id number] OLE [facility] 89287-0.61 10/23 [place] Encounter [id number] /2021 [facility] Out[facility] 74939-0.61 11/01 [place] [id number] [facility] 31374-3.61 11/01 [place] En[facility] [id number] /[facility] 11878-6.61 11/07 [place] Encounter [id number] /[facility] 67370-0.61 [place],H 11/08 [place] Encounter [id number] [facility]WOT [facility] Outpatient 69040-5.61 BOECARYN,RHONDA 11/15 [place] Encounter [id number] [facility] 50840-3.61 10 [place] En[facility] [id number] /[facility] 45397-8.61 11/22 [place] Encounter [id number] /2021 [facility] REM THER 21747-3.61 Diagnos ROSSI,MAR 11/24 [place] MNTR 1ST [id number] is: Y T [facility] 20 MIN ICD-10- HCS CM E11.43 Type 2 diabete s w diabeti c autonom ic (poly)n europat hy
with Provide r Comment s: Type 2 Diabete s Mellitu s with Diabeti c Autonom ic (Poly)N europat hy Outpatient 30842-2.61 11/25 [place] Encounter [id number] /2021 [facility] Outpatient 34253-6.61 11/29 [place] Encounter [id number] /2021 [facility] Outpatient 72796-0.61 BASHIR,RHONDA 12/12 [place] Encounter [id number] O[facility] ROUT FOOT 23959-5.61 Diagnos ERNIE YOUSSEF 12/12 [place] CARE PER [id number] is: E [facility] VISIT ICD-10- HCS CM L60.3 Nail dystrop hy
with Provide r Comment s: Nail dystrop hy OFFICE O/P 02177-5.61 Diagnos [place]ADISE,H 12/15 [place] EST HI [id number] is: HIWOT [facility] 40-54 MIN ICD-10- HCS CM M14.671 Charcot 's joint, right ankle and foot
with Provide r Comment s: Charcot 's joint of foot (SCT [id number]) HEARING 61010-1.61 Diagnos GIBSON,BR 12/15 [place] AID [id number] is: IDGET [facility] FITTING/CH ICD-10- HCS ECKING CM Z46.1 Encount er for fitting and adjustm ent of hearing aid<br/ >with Provide r Comment s: Encount er for fitting and adjustm ent of hearing aid Outpatient 32044-9.61 PODOLYANCH 12/15 [place] Encounter [id number] [facility] Procedures Combined list of: 1) Procedures from Department of Veterans Affairs facilities going back up to the last 18 months, not all VA non-surgical procedures are included; 2) All procedures from the Department of Defense facilities. Procedure Procedure Type Code Date Perfomer Comments Sour e Bilateral Upper Lid REPAIR BROW 50337 11/13/19 JORDAN STANFORD [facility] Blepharoplasty / DEFECT [facility] Right upper lid, Han's muscle conjunctival resection CE IOL LEFT EYE XCAPSL CTRC 81793 08/04/19 MARNIE FOWLER [facility] RMVL W/O ECP 21 [facility] CE IOL RIGHT XCAPSL CTRC 07249 07/13/19 [place]VALO [place] RMVL W/O ECP 21 A [facility] Social History Combined list of available smoking, tobacco, and other social [facility] Social History Type Response Date Comment Source Tobacco smoking VA-TOBACCO NEVER USED 04/25/2021 [facility] status [place] History of tobacco VA-TOBACCO QUIT 15 07/09/2020 [facility] use YRS OR MORE History of tobacco INPT NO TOBACCO USE 04/17/2019 [facility] use IN LAST 30 DAYS History of tobacco VA-TOBACCO NEVER USED 02/04/2019 [facility] HCS use History of tobacco INPT NO TOBACCO USE 10/15/2018 [facility] [place] [facility] use IN LAST 30 DAYS History of tobacco INPT NO TOBACCO USE 10/13/2018 [facility] [place] [facility] use IN LAST 30 DAYS History of tobacco INPT NO TOBACCO USE 09/02/2018 [facility] [place] use IN LAST 30 DAYS History of tobacco INPT NO TOBACCO USE 08/12/2018 [facility] use IN LAST 30 DAYS History of tobacco VA-TOBACCO FORMER 01/30/2018 [facility] History of tobacco INPT NO TOBACCO USE 05/29/2017 [facility] use IN LAST 30 DAYS History of tobacco INPT NO TOBACCO USE 04/25/2017 [facility] use IN LAST 30 DAYS History of tobacco INPT NO TOBACCO USE 01/01/2017 [facility] use IN LAST 30 DAYS History of tobacco FORMER TOBACCO USER 12/21/2016 [facility] use 7Y OR GREATER History of tobacco FORMER TOBACCO USER 09/24/2013 [facility] use 7Y OR GREATER History of tobacco QUIT TOBACCO >7 YEARS 01/01/2009 [place] [place] [facility] use AGO History of tobacco FORMER TOBACCO USER 04/17/2006 [facility] use 7Y OR GREATER This section is an DoD empty social history section. Plan of Care List of future care activities from [facility] facilities. Additional future care activities may be listed in the Assessment and Plan section. Date/Time Care Activity Care Activity Detail Facility 12/22/2021 AMBULATORY - NONE AMBULATORY - NONE [facility] Advance Directives List of completed, amended, or rescinded Advance Directives on record at [facility] facilities. An actual copy of the Directive is not included. Date Advance Directive Provider Source 05/29/2017 CLINICAL WARNING CORNELIO FREITAS [facility] 05/16/2017 ADVANCE DIRECTIVE SERENITY BUENROSTRO [facility] 05/16/2017 ADVANCE DIRECTIVE DISCUSSION SERENITY BUENROSTRO [facility] 05/04/2017 CLINICAL WARNING MAGO DIAMOND [facility] 05/04/2017 CLINICAL WARNING GAEL ROSARIO [facility] 04/26/2017 CLINICAL WARNING JENNIFER DE LEON [facility] 01/01/2017 CLINICAL WARNING AYDE WELLS [facility] 06/09/2004 ADVANCE DIRECTIVE DARYL VILLARREAL [facility] 06/07/2004 ADVANCE DIRECTIVE SHERYL HOLLOWAY [facility]
--- OUTSIDE RECORDS SUMMARY | 2021-12-22 15:52 | XMS_ITS | Encounter Summary ---
:1945 Author Organization [place] Address [facility] [place] [address] Care Team Providers Name Role Phone [place], [facility] Primary Care Provider [phone] Reason for Visit Reason Comments Pre-Op Exam Encounter Details Date Type Department Care Team Description 02/28/2017 Office Visit [facility] Preoperative 7, Pac Javan Preop general physical Assessment Center exam (Primary Dx) [address] [place] [address] Anesthesia Record Procedure Summary Procedure [...] Comments Blood Pressure 166/78 02/28/2017 1:48 PM CLAIMS CONFIGURATION ANALYST Pulse 75 02/28/2017 1:48 PM CLAIMS CONFIGURATION ANALYST Temperature 36.6 ??C (97.8 ??F) 02/28/2017 1:48 PM CLAIMS CONFIGURATION ANALYST Respiratory Rate 16 02/28/2017 1:48 PM CLAIMS CONFIGURATION ANALYST Oxygen Saturation 96% 02/28/2017 1:48 PM CLAIMS CONFIGURATION ANALYST Inhaled Oxygen Concentration - - Weight 109.7 kg (241 lb 14.4 oz) 02/28/2017 1:48 PM CLAIMS CONFIGURATION ANALYST Height 185.4 cm (6' 1) 02/28/2017 1:48 PM CLAIMS CONFIGURATION ANALYST Body Mass Index 31.91 02/28/2017 1:48 PM CLAIMS CONFIGURATION ANALYST documented in this encounter H&P Notes Estela Ruth, MARTIN FOOD CONSULTANT - 02/28/2017 1:00 PM CST Images from the original note were not included. Pre-Operative H & P CC: Preoperative exam to assess for increased cardiopulmonary risk while undergoing surgery and anesthesia. Date of Encounter: 02/28/2017 Primary Care Physician: [place], [facility] Corby Mojica is a 71 year old male who presents for pre-operative H & P in preparation for Right Temporal Artery Biopsy with Dr. Shaikh on 03/02/17 at [facility] [place]. History is obtained from the patient. Evaluation [...] Dr Garduno. MARTIN Adkins Preoperative Assessment Center [facility] [place] CONFIGURATION ANALYST documented in this encounter Plan of Treatment Not on filedocumented as of this encounter Procedures Procedure Name Priority Date/Time Associated Diagnosis Comme nts EKG 12-LEAD Routine 02/28/2017 3:20 PM Preop general Results for this COMPLETE W/READ - CLAIMS CONFIGURATION ANALYST physical exam procedure are in CLINICS the results section. EKG CARDIAC - HIM 02/28/2017 12:00 AM SCAN CLAIMS CONFIGURATION ANALYST documented in this encounter Results EKG 12-lead complete w/read - Clinics (02/28/2017 3:20 PM CLAIMS CONFIGURATION ANALYST) [facility] Method Time Signature Interpretation ECG Click View RADIOLOGY Image link RESULTS to view waveform and result Specimen (Source) Anatomical Collection Method Collection Time Re ceived Time Location / / Volume Laterality 02/28/2017 3:20 PM CLAIMS CONFIGURATION ANALYST Estela Ruth APRN NUCLEAR RADIATION ENGINEER ECG ORDERABLES Performing Organization Address City/[facility]/ZIP Code Phon e Number RADIOLOGY RESULTS (ABNORMAL) CBC with platelets (02/28/2017 3:10 PM CLAIMS CONFIGURATION ANALYST) [facility] Method Time Signature WBC 6.3 4.0 - 11.0 02/28/2017 [facility] 10e9/L 3:44 PM [facility] RBC Count 5.13 4.4 - 5.9 02/28/2017 [facility] 10e12/L 3:44 PM [facility] Hemoglobin 13.9 13.3 - 02/28/2017 [facility] 17.7 g/dL 3:44 PM [facility] Hematocrit 44.2 40.0 - 02/28/2017 [facility] 53.0 % 3:44 PM [facility] MCV 86 78 - 100 02/28/2017 [facility] fl 3:44 PM [facility] MCH 27.1 26.5 - 02/28/2017 [facility] 33.0 pg 3:44 PM [facility] MCHC 31.4 (L) 31.5 - 02/28/2017 [facility] 36.5 g/dL 3:44 PM [facility] RDW 13.9 10.0 - 02/28/2017 [facility] 15.0 % 3:44 PM [facility] Platelet Count 253 150 - 450 02/28/2017 [facility] 10e9/L 3:44 PM [facility] Specimen Anatomical Collection Method Collection Time Receive d Time (Source) Location / / Volume Laterality Blood specimen 02/28/2017 3:10 PM 018 3:13 (specimen) CLAIMS CONFIGURATION ANALYST PM CLAIMS CONFIGURATION ANALYST Estela Ruth APRN NUCLEAR RADIATION ENGINEER LAB - BLOOD ORDERABLES Performing Organization Address City/[facility]/[place] [address] [facility] (ABNORMAL) Basic metabolic panel (02/28/2017 3:10 PM [facility]) [facility] Method Time Signature Sodium 135 133 - 144 02/28/2017 [facility] mmol/L 4:01 PM [facility] Potassium 4.2 3.4 - 5.3 02/28/2017 [facility] mmol/L 4:01 PM [facility] Chloride 99 94 - 109 02/28/2017 [facility] mmol/L 4:01 PM [facility] Carbon Dioxide 32 20 - 32 02/28/2017 [facility] mmol/L 4:01 PM [facility] Anion Gap 5 3 - 14 02/28/2017 [facility] mmol/L 4:01 PM [facility] Glucose 219 (H) 70 - 99 02/28/2017 [facility] mg/dL 4:01 PM [facility] Urea Nitrogen 14 7 - 30 02/28/2017 [facility] mg/dL 4:01 PM [facility] Creatinine 0.56 (L) 0.66 - 02/28/2017 [facility] 1.25 mg/dL 4:01 PM [facility] GFR Estimate >90 >60 02/28/2017 [facility] mL/min/1.7 4:[address] Comment: Non GFR Calc GFR Estimate If >90 >60 mL/min/1.7m2 02/28/2017 4:01 P M [facility] Black [facility] Comment: GFR Calc Calcium 8.8 8.5 - 10.1 mg/dL 02/28/2017 4:01 PM [facility] Specimen Anatomical Collection Method Collection Time Receive d Time (Source) Location / / Volume Laterality Blood specimen 02/28/2017 3:10 PM 018 3:13 (specimen) CLAIMS CONFIGURATION ANALYST PM [facility] Estela Ruth APRN NUCLEAR RADIATION ENGINEER LAB - BLOOD ORDERABLES Performing Organization Address City/[facility]/[place] [address] [address] EKG CARDIAC - HIM SCAN (02/28/2017 12:00 AM CLAIMS CONFIGURATION ANALYST) Specimen (Source) Anatomical Location Collection Method / Collectio n Time Received Time / Laterality Volume 02/28/2017 Narrative This result has an attachment that is no t available. Provider Scan ECG ORDERABLES documented in this encounter Visit Diagnoses Diagnosis Preop general physical exam - Primary Other specified pre-operative examinatio n documented in this encounter Care Teams Cellophaner Relationship Specialty Start Date End Date [facility] PCP - General 01/19/17 [place] [address] documented as of this encounter
--- OUTSIDE RECORDS SUMMARY | 2021-12-22 15:52 | XMS_ITS | Encounter Summary ---
:1945 Author Organization [place] Address [facility] [place] [address] Care Team Providers Name Role Phone [facility] Primary Care Provider [phone] Reason for Visit Reason Comments Post Op (Ophthalmology) Right Eye Encounter Details Date Type Department Care Team Description 03/20/[address] [facility] Ophthalmkailyn Shaikh, Giant cell arteritis [address] [facility] MD Emily (H) (Primary Dx) 4th Floor [address] [place] [id number] Social History Tobacco Use Types Packs/Day Years [...] methotrexate. He is being treated [facility] the [facility] for temporal arteritis. He does have f/u [...] patient and family. - Emily Shaikh MD ATIONS SUPERVISOR 2ND SHIFT documented in this encounter Nursing Notes Bhupendra [...] Jung COT 2:45 PM March 20, 2017 ATIONS SUPERVISOR 2ND SHIFT documented in this encounter Plan of Treatment Not on filedocumented as of this encounter Visit Diagnoses Diagnosis Giant cell arteritis (H) - Primary Giant cell arteritis documented in this encounter Care Teams Microsoft Bi Developer Relationship Specialty Start Date End Date [facility] PCP - General 01/19/17 [place] [address] documented as of this encounter
--- OUTSIDE RECORDS SUMMARY | 2021-12-22 15:52 | XMS_ITS | Encounter Summary ---
:1945 Author Organization [place] Address [facility] [place] [address] Care Team Providers Name Role Phone [facility] Primary Care Provider [phone] Encounter Details Date Type Department Care Team Description 03/02/2017 Anesthesia Event M [facility] Surgery and [facility] Cambridgelong Fr Sonia hughes MD Procedure Center Kirill Blair MD [address] [place] [address] [address] [place] [address] Anesthesia Record Procedure Summary Procedure [...] Lee MD March 02, 2017 12:58 PM COORDINATOR Anesthesia Preprocedure Evaluation - Sonia Rashid MD [...] early admission to pre-op area: Other: PAC Resident/MEDIA ASSISTANT Anesthesia Assessment: Corby Mojica is a 71 [...] alternatives discussed with: Patient and Spouse.. . COORDINATOR documented in this encounter Miscellaneous Notes Anesthesia Care Transfer Note - Ab Lyons APRN MATLAB DEVELOPER - 03/02/2017 9:50 AM CST Patient: Corby [...] (Last set prior to Anesthesia Care Transfer) MATLAB DEVELOPER VITALS 03/02/2017 0920 - 03/02/2017 0950 03/02/2017 EKG: Sinus rhythm Electronically Signed By: Ab Lyons APRN MATLAB DEVELOPER March 02, 2017 9:50 AM COORDINATOR documented in this encounter Plan of Treatment Not on filedocumented as of this encounter Visit Diagnoses Not on filedocumented in this encounter Administered Medications Inactive Administered Medications - up to 3 most recent administrations Medication Order MAR Action Action Date Dose Rate Site lidocaine injection 2% (MDV) Given 03/02/2017 9:13 AM TOUR COORDINATOR 100 mg Intravenous, PRN, Starting on Sun03/02/17 at 0913, Anesthesia Intra-op midazolam (VERSED) injection Given 03/02/2017 9:09 AM TOUR COORDINATOR 1 mg Intravenous, Administer over 2 Minutes, PRN, anxiety, Starting on Sun03/02/17 at 0905, Anesthesia Intra-op Given 03/02/2017 9:05 AM TOUR COORDINATOR 1 mg propofol (DIPRIVAN) injection 10 mg/mL v ial Given 03/02/2017 9:28 AM TOUR COORDINATOR 15 mg Intravenous, PRN, Starting on Sun03/02/17 at 0915, Anesthesia Intra-op Given 03/02/2017 9:17 AM TOUR COORDINATOR 25 mg Given 03/02/2017 9:15 AM TOUR COORDINATOR 50 mg documented in this encounter Care Teams Brake Coupler Dinkey Relationship Specialty Start Date End Date [facility] PCP - General 01/19/17 [place], [place] [address] documented as of this encounter
--- OUTSIDE RECORDS SUMMARY | 2021-12-22 15:52 | XMS_ITS | Encounter Summary ---
:1945 Author Organization [place] Address [address] [place] [address]. [place] [address] Care Team Providers Name Role Phone [facility] Primary Care Provider [phone] Encounter Details Date Type Department Care Team Description 03/02/2017 Surgery [facility] Surgery and Emily Shaikh [facility] Biopsy [address] [place] [address] 5th [place] [address] [phone] Surgery Details Date/Time Status Location OR Service [...] Comments Blood Pressure 117/67 03/02/2017 9:56 AM DISPLAY SPECIALIST Pulse 67 03/02/2017 7:41 AM DISPLAY SPECIALIST Temperature 36.7 ??C (98 ??F) 03/02/2017 9:56 AM DISPLAY SPECIALIST Respiratory Rate 16 03/02/2017 9:56 AM DISPLAY SPECIALIST Oxygen Saturation 96% 03/02/2017 9:56 AM DISPLAY SPECIALIST Inhaled Oxygen Concentration - - Weight 93 kg (205 lb) 03/02/2017 7:41 AM DISPLAY SPECIALIST Height 185.4 cm (6' 1) 03/02/2017 7:41 AM DISPLAY SPECIALIST Body Mass Index 27.05 03/02/2017 7:41 AM DISPLAY SPECIALIST documented in this encounter Discharge Instructions Discharge Instructionsde Curtis Sauceda MD - 03/02/2017 9:51 AM DISPLAY SPECIALIST Post-operative Instructions Ophthalmic Plastic and Reconstructive Surgery [...] stopped using narcotic pain medications (such as [place], Percocet, Tylenol #3). Medications ? Restart all your regular home medications and eye drops. If you take Plavix or Aspirin on a regular basis, wait for 72 hours after your surgery before restarting these in order todecrease the risk of bleeding complications. ? Avoid aspirin and aspirin-like medications (Motrin, Aleve, Ibuprofen, Giovana- Clifton etc) for 72 hours to reduce the [...] 6 tablets of Darvocet, 12 tablets of [place], Percocet or Tylenol #3. If you take other wgua-orm-vtbtamp medications containing acetaminophen, you must take the [...] no appointment has been scheduled: - [facility] eye clinic: [phone] for an appointment with Dr. Shaikh within 1 to 2 weeks from your date of surgery. - [facility] eye clinic: [phone] for an appointment with [address]. Shaikh within 1 to2 weeks from your date of surgery. ? For severe pain, bleeding, or loss of vision, call the [facility] at [phone] [facility] at [phone]. After hours or on weekends and holidays, call [phone] and ask to speak with the ophthalmologiston call. An plant operations managercall center associate can be reached after hours for concerns. The plant operations manager doctor should not call in medication refill requests after hours or on weekends, so please plan accordingly. An effort has been made to provide adequate pain medications following every surgery, and refills will not be provided in most instances. Narcotic pain medications cannot be called in. [facility] Home Care [...] Your doctor is: Dr. Emily Shaikh, Ophthalmology: [phone] dial [phone] and ask for the resident plant operations manager for: {[employer] [facility] Emergency Department: [phone] (TTY for hearing impaired: [phone]) LAY SPECIALIST documented in this encounter Medications at Time [...] room in stable condition. Emily Shaikh MD LAY SPECIALIST Brief Op Note - Curtis Livingston MD - 03/02/2017 9:50 AM DISPLAY SPECIALIST [facility] Brief Operative Note Pre-operative diagnosis: Rule Out Arteritis Post-operative diagnosis Same Procedure: Procedure(s): Right Temporal Artery Biopsy - Wound Class: I-Clean, Surgeon: Emily Shaikh MD Grips(s): Umm Pablo MD; Curtis Sharif MD Estimated blood loss: < 10 mL Specimens: None Findings: Consistent with diagnosis LAY SPECIALIST documented in this encounter Plan of Treatment Not on filedocumented as of this encounter Procedures Procedure Name Priority Date/Time Associated Diagnosis Comme nts SURGICAL PATHOLOGY Routine 03/02/2017 9:36 AM Res ults for this EXAM DISPLAY SPECIALIST procedure are i n the results section. BIOPSY, ARTERY, 03/02/2017 9:05 AM Rule Out Arteritis TEMPORAL DISPLAY SPECIALIST GLUCOSE BY METER Routine 03/02/2017 8:09 AM Post-operative sta te Results for this DISPLAY SPECIALIST procedure are i n the results section. documented in this encounter Results Surgical pathology exam (03/02/2017 9:36 AM DISPLAY SPECIALIST) Component Value Ref Test Analysis Performed Pathologis t Range Method Time At Signature Copath Patient Name: CORBY MOJICA Report MR#: [id number] Specimen #: [id number] Collected: 03/02/2017 Received: 03/02/2017 [...] Electronically signed out by: Angely Montoya M.D., [facility] CLINICAL HISTORY: The patient is a 71 [...] in cassette A1. (Dictated by: Suzette [facility] 03/02/2017 10:19 AM) MICROSCOPIC: The tissue [...] active inflammation is identified. CPT Codes: A: 67119-PC3, 82127-VJWO TESTING LAB LOCATION: [facility], [address] ?? [address] COLLECTION SITE: Client: [facility] Location: [facility] (B) Specimen (Source) Anatomical Collection Method Collection Time Re ceived Time Location / / Volume Laterality Specimen from STRUCTURE OF 03/02/2017 9:36 unspecified body SUPERFICIAL AM DISPLAY SPECIALIST site obtained by TEMPORAL ARTERY / biopsy (specimen) Unknown Narrative This result has an attachment that is no t available. Emily WOODS - BEAKER AP Performing Organization Address City/State/ZIP Code Phon e Number COPATH (ABNORMAL) Glucose by meter (03/02/2017 8:09 AM DISPLAY SPECIALIST) P athologist Signature Glucose 188 (H) 70 - 99 03/02/2017 POINT OF CARE mg/dL 8:15 AM DISPLAY SPECIALIST TEST, GLUCOSE Specimen Anatomical Collection Method Collection Time Receive d Time (Source) Location / / Volume Laterality 03/02/2017 8:09 AM 8 8:15 DISPLAY SPECIALIST AM DISPLAY SPECIALIST Emily MARKS POCT Performing Organization Address City/State/ZIP Code Phon e Number FV POINT OF CARE TEST, GLUCOSE POINT OF CARE TEST, GLUCOSE documented in this encounter Visit Diagnoses Not on filedocumented in this encounter Administered Medications Inactive Administered Medications - up to 3 most recent administrations Medication Order MAR Action Action Date Dose Rate Site acetaminophen (TYLENOL) tablet 975 Given 03/02/2017 8:10 AM DISPLAY SPECIALIST 975 mg mg 975 mg, Oral, ONCE, On Sun03/02/17 at 0730, For 1 dose, Maximum acetaminophen dose from all sources = 75 mg/kg/day not to exceed 4 grams/day., Pre-procedure bupivacaine 0.5% - 30 mL, Given 03/02/2017 9:14 AM 4 mLs Operative Site/Surgical lidocaine 2% w/EPINEPHrine DISPLAY SPECIALIST Site 1:100,000 30 mL PRN, Starting on Sun03/02/17 at 0914, Intra-procedure erythromycin (ROMYCIN) Given 03/02/2017 9:40 AM 1 inch Operative Site/Surgical ophthalmic ointment DISPLAY SPECIALIST Site PRN, Starting on Sun03/02/17 at 0940, Intra-procedure lactated ringers infusion New Bag 03/02/2017 8:10 AM DISPLAY SPECIALIST 25 mL/hr at 25 mL/hr, Intravenous, CONTINUOUS, IF patient NOT on dialysis., Pre-procedure, Starting on Sun03/02/17 at 0745, Until Sun03/02/17 at 0947 documented in this encounter Care Teams Agricultural Lender Relationship Specialty Start Date End Date [place], [facility] PCP - General 01/19/17 [place] [address] documented as of this encounter
--- OUTSIDE RECORDS SUMMARY | 2021-12-22 15:52 | XMS_ITS | Encounter Summary ---
:1945 Author Organization [place] Address [address] [place] [address] Care Team Providers Name Role Phone [place] Primary Care Provider [phone] Encounter Details Date Type Department Care Team Description 02/23/2017 Orders Only [facility] Eye Gautam Landrum Subjective visual disturbance (Primary Dx); Clinic - Gustavo Valencia MD Diplopia [address] [place] [address] Social History Tobacco Use Types [...] ual Results for this SPECTRALIS OU (BOTH UNDERCUTTER OPERATOR disturbance procedure are in EYES) Diplopia the results section. GLAUCOMA TOP OU Routine 03/05/2017 3:23 PM Subjective visual R esults for this UNDERCUTTER OPERATOR disturbance procedure are in Diplopia the results section. SENSORIMOTOR Routine 03/05/2017 3:22 PM Diplopia Results for this UNDERCUTTER OPERATOR Subjective visual procedure are in disturbance the results section. documented in this encounter Results OCT Optic Nerve RNFL Spectralis OU (both eyes) (03/05/2017 3:24 PM UNDERCUTTER OPERATOR) Narrative Gautam Landrum MD - 01/15/2 018 3:24 PM UNDERCUTTER OPERATOR Performed by: tfw . Right Eye Reliability [...] OPHTHALMOLOGY Glaucoma Top OU (03/05/2017 3:23 PM UNDERCUTTER OPERATOR) Narrative Gautam Landrum MD - 018 3:23 PM UNDERCUTTER OPERATOR Performed by: BD . Patient cooperation: Reliable [...] Landrum MD OPHTHALMOLOGY Sensorimotor (03/05/2017 3:22 PM UNDERCUTTER OPERATOR) Narrative Gautam Landrum MD - 3:22 PM UNDERCUTTER OPERATOR Performed by: JUANITA Mayo Patient cooperation: Reliable . Reliability of the test: Good . Test Findings: Strabismus . Interpretation: Esotropia . Plan: Will monitor and consider eye mu scle surgery . Interval: Initial . Gautam Landrum MD OPHTHALMOLOGY documented in this encounter Visit Diagnoses Diagnosis Subjective visual disturbance - Primary Subjective visual disturbance, unspecifi ed Diplopia documented in this encounter Care Teams Stripe Marker Relationship Specialty Start Date End Date [place], [facility] PCP - General 01/19/17 [place], [place] [id number] documented as of this encounter
--- OUTSIDE RECORDS SUMMARY | 2021-12-22 15:52 | XMS_ITS | Clinical Summary ---
:1945 Author Organization [facility] [place] [address] Care Team Providers Name Role Phone Giselle Martinez MD Primary Care Provider [phone] Allergies Active Allergy Reactions Severity Noted [...] Length: knee (GRADUATED Strength: 16-20 mmHg COMPRESSION STOCKINGS)Indications : Type 2 diabetes mellitus with Charcot's joint [...] (LIPITOR) 80 mg at bedtime. tablet buPROPion (WELLBUTRIN Take 150 mg by mouth 0 021 Active XL) 150 mg once daily. Extended-Release tablet docusate (COLACE) 100 Take 100 mg by mouth 0 022 Active mg capsule 2 times daily if 3 needed. losartan (COZAAR) 50 Take 25 mg by mouth 0 1 Active mg tablet once daily. Artificial Tears, Place 1 Drop into 0 06/06/2021 Active polyvin alc, 1.4 % both eyes 3 times ophthalmic solution daily if needed. semaglutide (OZEMPIC) Inject 1 mg 0 08/04/2020 Active 1 mg/dose (4 mg/3 mL) subcutaneous once weekly. triamcinolone Apply topically to 0 06/06/2021 [...] mL liquid 2 times daily. saliva stimulant Abbot 1-2 sprays in 0 Active comb. no.3 (Biotene mouth every hour as Moisturizing Mouth) needed for dry mouth spry ergocalciferol Take 50,000 units by 0 Active (VITAMIN D2; DRISDOL) mouth every 4 weeks. 50,000 unit capsule fluticasone (50 mcg Inhale 1 Abbot into 0 Active per actuation) nasal affected nostril(s) solution (FLONASE) 2 times daily if needed for Rhinitis. hydrocortisone 2.5% Apply topically to 0 Active cream affected area(s) 3 times daily if needed for Itching. Apply thin layer to ankle ibuprofen (ADVIL; Take 600 mg by mouth 0 Active MOTRIN) 600 mg tablet once daily if needed. Maximum of 3200 mg in 24 hours. MULTIVITAMIN ORAL Take 1 Tablet by 0 Active mouth once daily. Sodium Fluoride 1.1 % Apply to teeth. 0 Active pste [place] small amount by mouth every morning and at bedtime on toothbrush, brush for 2 minutes emollient base Apply thin layer 0 Active (VANICREAM TOP) topically every day for dry skin - Apply to feet and legs rOPINIRole (REQUIP) 2 Take 2 mg by mouth 3 0 Active mg tablet times daily. oxyCODONE-acetaminoph Take 2 Tablets by 40 Tablet 0 06/16/2021 Active en (PERCOCET) 5-325 mouth 3 times daily. mg [...] 400 or greater....6 units & call MD amaralomer iodine Apply topically to 40 g 0 [...] 1 Each 0 09/01/2021 Active equipment SHOE, EDWIN, REF: (DME)Indications: [id number] Diabetic ulcer of right midfoot associated with type 2 diabetes mellitus, with fat layer exposed (HC), Follow-up examination after orthopedic surgery, Dehiscence of operative wound, initial encounter durable medical SQUARED TOE POST OP 1 Each 0 10/13/2021 Active equipment SHOE, EDWIN, REF: (DME)Indications: [phone] Diabetic ulcer of right midfoot associated with type 2 diabetes mellitus, with fat layer exposed (HC), Follow-up examination after orthopedic surgery, 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 Essential tremor 06/13/2021 Interstitial lung disease 06/13/2021 Overview: Hemoptysis 2018, bronch 2018, presumed M TX toxicity Aortic [...] Encounters Date Type Specialty Care Team Description 12/14/2021 Telephone Obdulio Copeland, Sanjay nice (Wound Care) DPM 12/08/2021 Telephone Obdulio Copeland, Form (R ecords [...] Telephone Obdulio Copeland, SENDING UPDATED FAX DPM from Last 3 Months Immunizations Name Administration Dates Next Due COVID-19 vaccine ([employer] 12/02/2020, 04/09/2020, 30mcg/0.3mL) PF, MDV Influenza Virus, [...] a pack per week for 6 m [facility] at age 19 Alcohol Use Standard Drinks/Week [...] Encounters Date Type Specialty Care Team Description 01/05/2022 Office Visit Molina Copeland DPM [address] [phone] (Isaac li) 01/19/2022 Office Visit Moilna Copeland DPM [phone] [...] MEDICARE PART A - HB MEDICARE PART [id number] 2007-Prese ATTN: CLAIMS USE ONLY A HB ONLY nt [address] [facility] [place] [address] [employer] [place] [id number] 2019-Pres [place] [employer] ent [address] [place] [id number] Advance Directives Latest Code Status on File Code Status Date Activated Date Inactivated Comments Full Code 06/13/2021 2:07 PM 06/16/2021 2:09 PM Code Status Discussion: Reviewed Preferences Full Code 06/13/2021 9:22 AM 06/13/2021 2:07 PM Code Status Discussion: Reviewed Preferences Care Teams Implementation Consultant Relationship Specialty Start Date End Date Giselle Martinez MD PCP - General Internal Medicine 04/13/[address] [place] [phone]
--- OUTSIDE RECORDS SUMMARY | 2021-12-22 15:52 | XMS_ITS | Encounter Summary ---
:1945 Author Organization [place] Address [address] [place] [address] Care Team Providers Name Role Phone [facility] Primary Care Provider [phone] Encounter Details Date Type Department Care Team Description 03/05/2017 Orders Only [facility] Eye Gautam Landrum Giant cell arteritis Clinic [facility] MD Erik (H) (Primary Dx) [place] [address] [place] [address] Social History Tobacco Use Types [...] arteritis documented in this encounter Care Teams Dump Grounds Checker Relationship Specialty Start Date End Date [facility] PCP - General 01/19/17 One [place], [place] [address] documented as of this encounter
== END 2021-12-22 15:50 | disposition home or self-care (01) ==
LOC: WOUND 15:49
PROVIDERS: PCP Podiatrist; Visit Provider Nurse Practitioner Family
DX: E11.621 Type 2 diabetes mellitus with foot ulcer (principal); L97.415 Non-pressure chronic ulcer of right heel and midfoot with muscle involvement without evidence of necrosis; Z79.84 Long term (current) use of oral hypoglycemic drugs
CPT/HCPCS: 11043

== ENCOUNTER 2021-12-23 15:08 | Outpatient (CLI) | payer OTHER, SELFPAY | END 2021-12-23 15:09 | disposition home or self-care (01) | LOC: LAB 15:09 | PROVIDERS: PCP Podiatrist; Visit Provider Nurse Practitioner Family | DX: L97.515 Non-pressure chronic ulcer of other part of right foot with muscle involvement without evidence of necrosis (principal) | CPT/HCPCS: 87070; 87077; 87186 ==

== ENCOUNTER 2021-12-23 15:38 | Outpatient (CLI) | payer OTHER, SELFPAY ==
--- OUTSIDE RECORDS SUMMARY | 2021-12-23 15:51 | XMS_ITS | Continuity of Care Document ---
:1945 Author Organization [facility] Care Team Providers Name Role Phone [facility] Unavailable Unavailable Problems Combined list of problems from Department of Defense and [facility] Affairs facilities. It does not include entries that were removed or entered in error. Problem Status Onset Problem Date of Comments Source Date Type Resolution Allergic Rhinitis Active Condition [facility] Nos Aortic valve Active Condition Feb 07, [place] stenosis 2017 Entered [facility] By: TESSA BOONE Comment: mild; echo 12/06 Backache Nos Active Condition [facility] Benign familial Active Condition [facility] tremor Charcot's joint of Active Condition [place] foot [facility] Chronic ulcer of Active Condition [place] right foot due to [facility] diabetes mellitus Coronary artery Active Condition May 05, [place] disease 2019 Entered [facility] By: CARIDAD DENNIS Comment: STEMI; CABG x 4 (emergent) 05/06; EF 55% 12/06, hypotensive on ACEI, HFpEF Depression Active Condition [place] [facility] Diabetes mellitus Active Condition Nov 07, [place] 2020 Entered [facility] By: CARIDAD DENNIS Comment: neuropathy; foot ulcer with cuboid osteomyelitis 09/06Nov 07, 2020 Entered By: CARIDAD DENNIS Comment: Charcot arthropathy; PAVE Risk 3 Diabetes mellitus Active Condition [facility] (SNOMED CT 23086877) Essential Active Condition [facility] hypertension (SNOMED CT 95948513) Essential tremor Active Condition Jul 25, [place] 2017 Entered [facility] By: TESSA BOONE Comment: on propranolol Fatty Liver Active Condition [facility] Gastroesophageal Active Condition [facility] reflux disease [facility] Gerd Active Condition Jun 15, [place] [facility] 2009 Entered By: JEEVAN SOSA Comment: had c scope 06/25 that was nl-was told to f/u in 5 yrs Headache Active Condition Nov 07, [place] 2020 Entered [facility] By: CARIDAD DENNIS Comment: 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 Entered [facility] By: TESSA BOONE Comment: right; probably ischemic 08/07 Osteoarthritis Active Condition Nov 07, [place] 2020 Entered [facility] By: CARIDAD DENNIS Comment: C-spine; L-spine; chronic low back pain on opioids Peripheral vascular Active Condition Nov 07, [place] disease 2020 Entered [facility] By: CARIDAD DENNIS Comment: angiogram 06/15/2020 atherectomy and balloon angioplasty Nov 07, 2020 Entered By: CARIDAD DENNIS Comment: chronic venous stasis, h/o venous pump use Primary insomnia Active Condition [facility] (SNOMED CT 8637705) Pulmonary Active Condition May 05, [place] thromboembolism 2019 Entered [facility] By: CARIDAD DENNIS Comment: on CTA 07/06; possible ; xeralto -> inc LFT, not on anticoag 2/2 hemoptysis Recurrent major [facility] depressive disorder (SNOMED CT 74158521) Restless legs Active Condition Jan 30, [place] syndrome 2017 Entered [facility] By: TESSA BOONE Comment: on ropinirole Sciatica (SNOMED CT Active Condition [facility] [id number]) SCREENING-EYE COND Active Condition [facility] N[facility] Sleep Apnea Active Condition [facility] Upper urinary tract Active Condition [facility] infection Venous Active Condition [facility] Insufficiency * (ICD-9-CM 459.81) Anemia Inactive Condition 11/07/2020 Jul 26, [place] 2017 Entered [facility] By: TESSA BOONE Comment: iron deficiency 08/06 [place] [facility] Inactive Condition 01/14/2010 [facility] Deposits Inactive Condition 03/27/2018 [place] [facility]accretions[facility] on [facility] teeth Dysphagia Inactive Condition 11/07/2020 Sep 24, [place] 2017 Entered [facility] By: TESSA BOONE Comment: EGD 11/06 Impotence of Inactive Condition 07/25/2017 [place] organic origin [facility] Open wound of toe Inactive Condition 07/25/2017 Dec 21, [place] 2016 Entered [facility] By: ADAN DAWSON Comment: L 2nd distal tuft/phalynx 2017 Primary erectile Inactive Condition 11/07/2020 [place] dysfunction [facility] Venous stasis Inactive Condition 11/07/2020 Oct 11, [place] 2017 Entered [facility] By: TESSA BOONE Comment: venous pump Wound infection Inactive Condition 10/09/2017 Jul 25, [place] 2017 Entered [facility] By: TESSA BOONE Comment: left leg vein harvest site 07/06 Diagnosis: Active Diagnosis [place] ICD-10-CM Z46.1 [facility] Encounter for fitting and adjustment of hearing aidwith Provider Comments: Encounter for fitting and adjustment of hearing aid Diagnosis: Active Diagnosis [place] ICD-10-CM M14.671 [facility] Charcot's joint, right ankle and footwith Provider Comments: Charcot's joint of foot ([facility] [id number]) Diagnosis: Active Diagnosis [place] ICD-10-CM L60.3 [facility] Nail dystrophywith Provider Comments: Nail dystrophy Diagnosis: Active Diagnosis [place] ICD-10-CM E11.43 [facility] Type 2 diabetes w diabetic autonomic (poly)neuropathywit h Provider Comments: Type 2 Diabetes Mellitus with Diabetic Autonomic (Poly)Neuropathy Diagnosis: Active Diagnosis [place] ICD-10-CM E11.621 [facility] Type 2 diabetes mellitus with foot ulcerwith Provider Comments: Type 2 Diabetes Mellitus with Foot Ulcer Diagnosis: Active Diagnosis [place] ICD-10-CM H90.3 [facility] Sensorineural hearing loss, bilateralwith Provider Comments: Sensorineural hearing loss, bilateral Diagnosis: Active Diagnosis [place] ICD-10-CM N52.8 [facility] Other male erectile dysfunctionwith Provider Comments: Other Male Erectile Dysfunction Diagnosis: Active Diagnosis [place] ICD-10-CM M14.672 [facility] Charcot's joint, left ankle and footwith Provider Comments: Charcot's Joint, left Ankle and Foot Diagnosis: Active Diagnosis [place] ICD-10-CM K08.89 [facility] Other specified disorders of teeth and supporting structureswith Provider Comments: Other specified Disorders of Teeth and Supporting Structures Diagnosis: Active Diagnosis [place] ICD-10-CM Z71.89 [facility] Other specified counselingwith Provider Comments: Other specified counseling Diagnosis: Active Diagnosis [place] ICD-10-CM R68.84 [facility] Jaw painwith Provider Comments: Jaw Pain Diagnosis: Active Diagnosis [place] ICD-10-CM I25.10 [facility] Athscl heart disease of [place] coronary artery w/o ang pctrswith Provider Comments: Coronary artery disease ([facility] [id number]) Diagnosis: Active Diagnosis [place] ICD-10-CM Z91.14 [facility] Patient's other noncompliance with medication regimenwith Provider Comments: Patient's other Noncompliance with Medication Regimen Diagnosis: Active Diagnosis [place] ICD-10-CM H04.123 [facility] Dry eye syndrome of bilateral lacrimal glandswith Provider Comments: Dry Eye Syndrome of Bilateral Lacrimal Glands Diagnosis: Active Diagnosis [place] ICD-10-CM R13.12 [facility] Dysphagia, oropharyngeal phasewith Provider Comments: Dysphagia, Oropharyngeal Phase Diagnosis: Active Diagnosis [place] ICD-10-CM M62.81 [facility] Muscle weakness (generalized)with Provider Comments: Muscle Weakness (Generalized) Diagnosis: Active Diagnosis [place] ICD-10-CM Z23 [facility] Encounter for immunizationwith Provider Comments: Encounter for Immunization Diagnosis: Active Diagnosis [place] ICD-10-CM Z48.00 [facility] Encounter for change or removal of nonsurg wound dressingwith Provider Comments: Encounter for Change or Removal of Nonsurgical Wound Dressing Diagnosis: Active Diagnosis [place] ICD-10-CM E08.8 [facility] CS Diabetes due to underlying condition w unsp complicationswith Provider Comments: Diabetes Mellitus due to Underlying Condition with unspecified Complications Diagnosis: Active Diagnosis [place] ICD-10-CM I35.0 [facility] Nonrheumatic aortic (valve) stenosiswith Provider Comments: Aortic valve stenosis (SCT [id number]) Diagnosis: Active Diagnosis [place] ICD-10-CM Z13.[address] [facility] Encounter for screening for cardiovascular disorderswith Provider Comments: Encounter for Screening for Cardiovascular Disorders Diagnosis: Active Diagnosis [place] ICD-10-CM M19.91 [facility] Primary osteoarthritis, unspecified sitewith Provider Comments: Osteoarthritis ([facility] [id number]) Diagnosis: Active Diagnosis [place] ICD-10-CM H52.4 [facility] Presbyopiawith Provider Comments: Presbyopia Diagnosis: Active Diagnosis [place] ICD-10-CM M14.671 [facility] Charcot's joint, right ankle and footwith Provider Comments: Charcot's Joint, right Ankle and Foot Diagnosis: Active Diagnosis [place] ICD-10-CM I50.[address] [facility] Heart failure, unspecifiedwith Provider Comments: Heart failure ([facility] [id number]) Diagnosis: Active Diagnosis [place] ICD-10-CM Z86.31 [facility] Personal history of diabetic foot ulcerwith Provider Comments: Personal History of Diabetic Foot Ulcer Diagnosis: Active Diagnosis [place] ICD-10-CM Z96.1 [facility] Presence of intraocular lenswith Provider Comments: Pseudophakia Diagnosis: Active Diagnosis [place] ICD-10-CM L03.90 [facility] Cellulitis, unspecifiedwith Provider Comments: Cellulitis, unspecified Diagnosis: Active Diagnosis [place] ICD-10-CM H93.13 [facility] Tinnitus, bilateralwith Provider Comments: Tinnitus, bilateral Diagnosis: Active Diagnosis [place] ICD-10-CM L03.032 [facility] Cellulitis of left toewith Provider Comments: Cellulitis of left Toe Diagnosis: Active Diagnosis [place] ICD-10-CM E11.[address] [facility] Type 2 diabetes mellitus with unspecified complicationswith Provider Comments: Diabetes mellitus ([facility] [id number]) Diagnosis: Active Diagnosis [place] ICD-10-CM L84 Corns [facility] and callositieswith Provider Comments: Corns and callosities Diagnosis: Active Diagnosis [place] ICD-10-CM L60.8 [facility] Other nail disorderswith Provider Comments: Other nail disorders Diagnosis: Active Diagnosis [place] ICD-10-CM R26.9 [facility] Unspecified abnormalities of gait and mobilitywith Provider Comments: Unspecified Abnormalities of Gait and Mobility Diagnosis: Active Diagnosis [place] ICD-10-CM G25.81 [facility] Restless legs syndromewith Provider Comments: Restless Legs Syndrome Diagnosis: Active Diagnosis [place] ICD-10-CM Z96.1 [facility] Presence of intraocular lenswith Provider Comments: Presence of intraocular lens Diagnosis: Active Diagnosis [place] ICD-10-CM I73.9 [facility] Peripheral vascular disease, unspecifiedwith Provider Comments: Peripheral vascular disease ([facility] [id number]) Diagnosis: Active Diagnosis [place] ICD-10-CM R04.2 [facility] Hemoptysiswith Provider Comments: Hemoptysis ([facility] [id number]) Diagnosis: Active Diagnosis [place] ICD-10-CM Z48.810 [facility] Encntr for surgical aftcr fol surgery on the sense organswith Provider Comments: Encntr for surgical aftcr fol surgery on the sense organs Diagnosis: Active Diagnosis [place] ICD-10-CM H01.009 [facility] Unspecified blepharitis unspecified eye, unspecified eyelidwith Provider Comments: Unspecified Blepharitis unspecified Eye, unspecified Eyelid Diagnosis: Active Diagnosis [place] ICD-10-CM H02.401 [facility] Unspecified ptosis of right eyelidwith Provider Comments: Unspecified ptosis of right eyelid Diagnosis: Active Diagnosis [place] ICD-10-CM Z01.818 [facility] Encounter for other preprocedural examinationwith Provider Comments: PreOp Exam Diagnosis: Active Diagnosis [place] ICD-10-CM Z71.89 [facility] Other specified counselingwith Provider Comments: Other specified Counseling Diagnosis: Active Diagnosis [place] ICD-10-CM K03.6 [facility] Deposits [accretions] on teethwith Provider Comments: Deposits [accretions] on teeth Diagnosis: Active Diagnosis [place] ICD-10-CM H02.834 [facility] Dermatochalasis of left upper eyelidwith Provider Comments: Dermatochalasis of left upper eyelid Diagnosis: Active Diagnosis [place] ICD-10-CM Z98.42 [facility] Cataract extraction status, left eyewith Provider Comments: Cataract Extraction Status, left Eye Diagnosis: Active Diagnosis [place] ICD-10-CM I73.9 [facility] Peripheral vascular disease, unspecifiedwith Provider Comments: Peripheral Vascular Disease, Unspecified Diagnosis: Active Diagnosis [place] ICD-10-CM E11.638 [facility] Type 2 diabetes mellitus with other oral complicationswith Provider Comments: Type 2 Diabetes Mellitus with other Oral Complications Diagnosis: Active Diagnosis [place] ICD-10-CM H25.812 [facility] Combined forms of age-related cataract, left eyewith Provider Comments: Diagnosis: Active Diagnosis [place] ICD-10-CM H26.8 [facility] Other specified cataractwith Provider Comments: Other specified Cataract Diagnosis: Active Diagnosis [place] ICD-10-CM Z74.09 [facility] Other reduced mobilitywith Provider Comments: Other Reduced Mobility Diagnosis: Active Diagnosis [place] ICD-10-CM H25.12 [facility] Age-related nuclear cataract, left eyewith Provider Comments: Age-related nuclear cataract, left eye Diagnosis: Active Diagnosis [place] ICD-10-CM H25.11 [facility] Age-related nuclear cataract, right eyewith Provider Comments: Age-related nuclear cataract, right eye Diagnosis: Active Diagnosis [place] ICD-10-CM G25.81 [facility] Restless legs syndromewith Provider Comments: Restless legs syndrome ([facility] [id number]) Diagnosis: Active Diagnosis [place] ICD-10-CM U07.1 [facility] COVID-19with Provider Comments: 2019-nCoV acute respiratory disease Diagnosis: Active Diagnosis [place] ICD-10-CM H25.13 [facility] Age-related nuclear cataract, bilateralwith Provider Comments: Age-related nuclear cataract, bilateral Diagnosis: Active Diagnosis [place] ICD-10-CM R26.89 [facility] Other abnormalities of gait and mobilitywith Provider Comments: Other abnormalities of gait and mobility Diagnosis: Active Diagnosis [place] ICD-10-CM Z74.09 [facility] Other reduced mobilitywith Provider Comments: Reduced Mobility Diagnosis: Active Diagnosis [place] ICD-10-CM I50.20 [facility] Unspecified systolic (congestive) heart failurewith Provider [...] Date Date acetaminoph TAKE ONE Active 07/30/2022 [id number] PAR[place] DISE, 08/05/ [place] (U/D) TABLET 2 2021 [place] 500 MG ORAL BY MOUTH [facility] TAB EVERY 6 HOURS NEEDED FOR PAIN*NOT TO EXCEED 4000MG IN 24 HOURS FROM ALL SOURCES* acetaminoph TAKE ONE Discont 12/29/2021 [id number] PAR ADISE, 06/27/ [place] (U/D) TABLET inued 2 2021 olis 500 MG ORAL BY MOUTH [facility] TAB EVERY 6 HOURS NEEDED FOR PAIN*NOT TO EXCEED 4000MG IN 24 HOURS FROM ALL SOURCES* acetaminoph TAKE ONE Discont 11/09/2021 [id number] PAR ADISE, 12/19/ [place] (U/D) TABLET inued 1 CARIDAD2020 olis 500 MG ORAL BY MOUTH [facility] TAB EVERY 6 HOURS NEEDED FOR PAIN*NOT TO EXCEED 4000MG IN 24 HOURS FROM ALL SOURCES* ACETAMINOPH TAKE ONE ORALLY ACTIVE 07/30/2022 [id number] [place], 08/02/ [place] 500MG TABLET 2 2021 [place] TAB BY MOUTH [facility] EVERY 6 HOURS NEEDED FOR PAIN*NOT TO EXCEED 4000MG IN 24 HOURS FROM ALL SOURCES* ACETAMINOPH TAKE ONE ORALLY DISCONT 11/09/2021 [id number] [place], 11/09/ [place] 500MG TABLET INUED 1 CARIDAD2020 [place] TAB BY MOUTH [facility] EVERY 6 HOURS NEEDED FOR PAIN*NOT TO EXCEED 4000MG IN 24 HOURS FROM ALL SOURCES* ACETAMINOPH TAKE ONE ORALLY DISCONT 12/29/2021 [id number] [place], 12/28/ [place] EN 500MG TABLET INUED 2 2020 [place] TAB BY MOUTH [facility] EVERY 6 HOURS NEEDED FOR PAIN*NOT TO EXCEED 4000MG IN 24 HOURS FROM ALL SOURCES* Akwa Tears INSTILL Discont 08/05/2021 [id number] PARAD ISE, 06/28/ [place] or Eq. 1 DROP inued 2 2021 olis Solution IN BOTH [facility] 1.4% EYES Optical THREE TIMES A DAY NEEDED FOR DRY EYES ALBUTEROL INHALE 2 INHALA ACTIVE 07/30/2022 [id number] PA RADISE, 08/02/ [place] 90MCG/ACTUA PUFFS BY TION 2 2021 [place] T (CFC-F) INHALATI [facility] INHL,ORAL,8 ON FOUR .5GM DOSE TIMES A COUNTER DAY NEEDED FOR IMMEDIAT E RELIEF OF SHORTNES S OF BREATH *SHAKE WELL* ALBUTEROL INHALE 2 INHALA DISCONT 01/06/2022 [id number] P [place], 01/05/ [place] 90MCG/ACTUA PUFFS BY TION INUED 2 CARIDAD 2020 [place] [facility] T (CFC-F) INHALATI [facility] INHL,ORAL,8 ON FOUR .5GM DOSE TIMES A COUNTER DAY NEEDED FOR IMMEDIAT E RELIEF OF SHORTNES S OF BREATH *SHAKE WELL* ALBUTEROL INHALE 2 INHALA DISCONT 01/13/2021 [id number] SIMON A,S 12/15/ [place] 90MCG/ACTUA PUFFS BY TION INUE 1 [facility] 2020 [facility] T (CFC-F) INHALATI HCS INHL,ORAL,8 ON FOUR .5GM DOSE TIMES A COUNTER DAY NEEDED FOR IMMEDIAT E RELIEF OF SHORTNES S OF BREATH *SHAKE WELL* Alcohol USE 1 Discont 04/08/2021 [id number] [place], 06/28/ [place] Antiseptic PAD inued 1 CARIDAD 2021 olis (Alcohol TOPICALL [facility] Swabs Eq.) Y Pads 70% DIRECTED Topical ALOE VESTA APPLY TO TOPICA DISCONT 08/05/2021 [id number] [place], 08/05/ [place] PROTECTIVE LEFT LLY INUE 1 CARIDAD 2020 [place] OINT,TOP HEEL AND [facility] RIGHT FOOT TOPICALL Y SUNDAY, Y AND SUNDAY INSTRUCT ED FOR DRESSING CHANGES Amoxicillin TAKE 1 Discont 03/25/2021 [id number] TRAUT , 06/27/ [place] 875mg + TABLET inued 2 JOSE L 2021 olis Potassium BY MOUTH [facility] Clavulanate TWICE A 125mg, DAY Tablet, Oral AMOXICILLIN TAKE 1 ORALLY DISCONT 03/25/2021 [id number] TR AUT,ANÍBAL [place] TRIHYDRATE TABLET INUED 2 HARD L 2021 [place] 875MG/CLAVU BY MOUTH [facility] LANATE K TWICE A 125MG TAB DAY AMOXICILLIN TAKE 1 ORALLY 09/27/2021 [id number] CU LLEN,CO [place] TRIHYDRATE TABLET 2 NSTANCE L 2021 [place] 875MG/CLAVU BY MOUTH HCS LANATE K TWICE A 125MG TAB DAY ASPIRIN TAKE ONE ORALLY ACTIVE 07/30/2022 [id number] [place]ADI SE, 08/28/ [place] 81MG TAB,EC TABLET 2 2021 [place] BY MOUTH [facility] EVERY DAY TO PREVENT HEART ATTACK DO NOT CHEW TO PREVENT HEART ATTACK DO NOT CHEW ASPIRIN TAKE ONE ORALLY DISCONT 08/05/2021 [id number] [place], 08/13/ [place] 81MG TAB,EC TABLET INUED 2 2020 [place] BY MOUTH [facility] EVERY DAY TO PREVENT HEART ATTACK DO NOT CHEW TO PREVENT HEART ATTACK DO NOT CHEW ASPIRIN EC TAKE ONE Active 07/30/2022 [id number] [place] ISE, 10/24/ [place] (U/D) 81 MG TABLET 2 2021 olis ORAL TBEC BY MOUTH [facility] EVERY DAY TO PREVENT HEART ATTACK DO NOT CHEW ASPIRIN EC TAKE ONE Discont 08/05/2021 [id number] PARA DISE, 06/27/ [place] (U/D) 81 MG TABLET inued 2 2021 olis ORAL TBEC BY MOUTH [facility] EVERY DAY TO PREVENT HEART ATTACK DO NOT CHEW atorvastati TAKE ONE Active 07/30/2022 [id number] [place] DISE, 08/05/ [place] n (U/D) 80 TABLET 2 2021 olis MG ORAL TAB BY MOUTH [facility] AT BEDTIME FOR CHOLESTE ROL AND HEART DISEASE atorvastati TAKE ONE Discont 08/12/2021 [id number] PAR ADISE, 06/28/ [place] n (U/D) 80 TABLET inued 2 2021 olis MG ORAL TAB BY MOUTH [facility] AT BEDTIME FOR CHOLESTE ROL AND HEART DISEASE ATORVASTATI TAKE ONE ORALLY ACTIVE 07/30/2022 [id number] [place], 08/02/ [place] 80MG TABLET 2 2021 [place] TAB BY MOUTH [facility] AT BEDTIME FOR CHOLESTE ROL AND HEART DISEASE ATORVASTATI TAKE ONE ORALLY DISCONT 08/12/2021 [id number] [place], 08/11/ [place] 80MG TABLET INUED 2 CARIDAD 2020 [place] TAB BY MOUTH [facility] AT BEDTIME FOR CHOLESTE ROL AND HEART DISEASE Benzonatate TAKE ONE 11/18/2021 [id number] SOR ENSON, 11/06/ [place] (Tessalon CAPSULE 2 PRERNA B 2021 olmilo Perlashley) BY MOUTH [facility] Capsule THREE Conventiona TIMES A l 100 mg DAY Oral NEEDED FOR COUGH BENZONATATE TAKE ONE ORALLY ACTIVE 01/18/2022 [id number] M[place], 12/19/ [place] 100MG CAP CAPSULE 2 PRERNA B 2021 [place] BY MOUTH [facility] THREE TIMES A DAY NEEDED FOR COUGH BENZONATATE TAKE ONE ORALLY DISCONT 11/18/2021 [id number] [place], 10/20/ [place] 100MG CAP CAPSULE INUED 2 PRERNA B 2021 [place] BY MOUTH [facility] THREE TIMES A DAY NEEDED FOR COUGH bumetanide TAKE ONE Active 07/30/2022 [id number] PARAD ISE, 08/05/ [place] (U/D) 1 MG TABLET 2 CARIDAD 2021 olis ORAL TAB BY MOUTH [facility] TWICE A DAY FOR FLUID RETENTIO N bumetanide TAKE ONE Discont 08/06/2021 [id number] [place], 06/27/ [place] (U/D) 1 MG TABLET inued 2 MAREK L 2021 olis ORAL TAB BY MOUTH [facility] TWICE A DAY FOR FLUID RETENTIO N BUMETANIDE TAKE ONE ORALLY ACTIVE 07/30/2022 [id number] P [place], 08/02/ [place] 1MG TAB TABLET 2 CARIDAD 2021 [place] BY MOUTH [facility] TWICE A DAY FOR FLUID RETENTIO N BUMETANIDE TAKE ONE ORALLY DISCONT 08/06/2021 [id number] URENA,CA 11/04/ [place] 1MG TAB TABLET INUED 2 LLIE L 2020 [place] BY MOUTH [facility] TWICE A DAY FOR FLUID RETENTIO N BUPROPION TAKE ONE ORALLY ACTIVE 07/30/2022 [id number] PA RADISE, 08/25/ [place] HCL 150MG TABLET 2 CARIDAD 2021 [place] 24HR TAB,SA BY MOUTH [facility] EVERY DAY BUPROPION TAKE ONE ORALLY DISCONT 08/05/2021 [id number] P [place]AD[place], 08/05/ [place] HCL 150MG TABLET INUED 2 CARIDAD 2020 [place] 24HR TAB,SA BY MOUTH [facility] EVERY DAY buPROPion TAKE ONE Active 07/30/2022 [id number] PARADI SE, 10/24/ [place] HCl XL 150 TABLET 2 CARIDAD 2021 olis MG ORAL BY MOUTH [facility] EVERY DAY buPROPion TAKE ONE Discont 08/05/2021 [id number] PARAD ISE, 06/27/ [place] HCl XL 150 TABLET inued 2 2021 olis MG ORAL BY MOUTH [facility] EVERY DAY CADEXOMER APPLY TO TOPICA 08/10/2021 [id number] FB -STEENB 07/12/ [place] IODINE 0.9% INCISION LLY 2 LOCK,TREN 2021 O [place] GEL,TOP OF RIGHT T R HCS FOOT TOPICALL Y NEEDED EVERY OTHER DAY CADEXOMER APPLY TO 08/10/2021 [id number] FB-ST EENB 08/21/ [place] IODINE 0.9% INCISION 2 LOCK, 2021 olis TOP GEL [10 OF RIGHT MEHDI R VAM C GM] FOOT TOPICALL Y NEEDED EVERY OTHER DAY carboxymeth INSTILL Active 07/30/2022 [id number] PARAD ISE, 08/05/ [place] ylcel 0.5% 1 DROP 2 CARIDAD 2021 olis EYE DROP [2 IN BOTH [facility] X15ML] EYES FOUR TIMES A DAY FOR DRY EYES carboxymeth INSTILL Discont 08/12/2021 [id number] TUAN MAN, 06/28/ [place] ylcel 0.5% 1 DROP inued 1 IGNACIO L 2021 olis EYE DROP [2 IN BOTH [facility] X15ML] EYES FOUR TIMES A DAY FOR DRY EYES CARBOXYMETH INSTILL BOTH ACTIVE 07/30/2022 [id number] P ARADISE, 08/02/ [place] YLCELLULOSE 1 DROP EYES 2 CARIDAD 2021 OL[facility] VA NA 0.5% IN BOTH [facility] SOLN,OPH EYES FOUR TIMES A DAY FOR DRY EYES CARBOXYMETH INSTILL BOTH DISCONT 08/12/2021 [id number] C RAS,S 08/11/ [place] YLCELLULOSE 1 DROP EYES INUED 1 YDNI L 2020 OLIS V A NA 0.5% IN BOTH [facility] SOLN,OPH EYES FOUR TIMES A DAY FOR DRY EYES celeXA TAKE ONE Active 07/30/2022 [id number] [place], 08/05/ [place] (BRAND) 20 TABLET 2 CARIDAD 2021 olis MG ORALTAB BY MOUTH [facility] EVERY DAY FOR DEPRESSI ON celeXA TAKE ONE Discont 03/23/2022 [id number] [place] , 06/27/ [place] (BRAND) 20 TABLET inued 2 CARIDAD 2021 olis MG ORALTAB BY MOUTH [facility] EVERY DAY FOR DEPRESSI ON celeXA TAKE ONE Discont 08/10/2021 [id number] [place] , 12/19/ [place] (BRAND) 20 TABLET inued 1 CARIDAD2020 olis MG ORALTAB BY MOUTH [facility] EVERY DAY FOR DEPRESSI ON cephALEXin TAKE ONE Discont 03/31/2021 [id number] JOPP A, 06/28/ [place] (U/D) 500 CAPSULE inued 2 AMARJIT 2021 olis MG ORAL CAP BY MOUTH [facility] FOUR TIMES A DAY CEPHALEXIN TAKE ONE ORALLY DISCONT 03/31/2021 [id number] J OPPA,NAM 03/01/ [place] 500MG CAP CAPSULE INUED 2 PHANIE 2021 [facility] VA BY MOUTH [facility] FOUR TIMES A DAY CHLORHEXIDI SWISH ORALLY 09/22/2021 [id number] FR ENCH, 09/08/ [place] NE AND SPIT 2 RISTOPHER 2021 [facility] GLUCONATE 1 J [facility] 0.12% TABLESPO RINSE,ORAL ON ( 1/2 OUNCE = 15 ML) BY MOUTH TWICE A DAY AFTER BREAKFAS T AND BEFORE BEDTIME. FOR 7 DAYS Chlorhexidi SWISH 09/22/2021 [id number] PAKISTANI , 09/10/ [place] ne AND SPIT 2 KYLE 2021 olis Gluconate, 1 ER J [facility] 0.12%, TABLESPO Mouthwash ON ( 1/2 OUNCE = 15 ML) BY MOUTH TWICE A DAY AFTER BREAKFAS T AND BEFORE BEDTIME. FOR 7 DAYS CHOLECALCIF TAKE ONE Discont 04/10/2022 [id number] PAR ADISE, 06/27/ [place] (VIT D3) TABLET inued 2 CARIDAD 2021 olis 1,000 UNIT BY MOUTH [facility] ORAL TAB EVERY DAY FOR VITAMIN D SUPPLEME NTATION CHOLECALCIF TAKE ONE ORALLY SUSPEND 10/21/2022 [id number] [place], 10/25/ [place] JUANA 25MCG TABLET ED 2 2021 [facility] (1,000UNIT) BY MOUTH [facility] TAB EVERY DAY FOR VITAMIN D SUPPLEME NTATION (REPLACE S ERGOCALC IFEROL) CHOLECALCIF TAKE ONE ORALLY DISCONT 04/10/2022 [id number] [place], 04/12/ [place] JUANA 25MCG TABLET INUED 2 2021 [facility] (1,000UNIT) BY MOUTH [facility] TAB EVERY DAY FOR VITAMIN D SUPPLEME NTATION CITALOPRAM TAKE ONE ORALLY ACTIVE 07/30/2022 [id number] P ARADISE, 08/19/ [place] HYDROBROMID TABLET 2 2021 OL[facility] VA E 20MG TAB BY MOUTH [facility] EVERY DAY FOR DEPRESSI ON CITALOPRAM TAKE ONE ORALLY DISCONT 08/10/2021 [id number] [place], 09/02/ [place] HYDROBROMID TABLET INUED 1 2020 [facility] VA E 20MG TAB BY MOUTH [facility] EVERY DAY FOR DEPRESSI ON CITALOPRAM TAKE ONE ORALLY DISCONT 03/23/2022 [id number] P ARADISE, 03/23/ [place] HYDROBROMID TABLET INUED 2 2021 [facility] E 20MG TAB BY MOUTH [facility] EVERY DAY FOR DEPRESSI ON CLEANSER,SK SPRAY TOPICA ACTIVE 07/30/2022 [id number] PARADI SE, 08/02/ [place] INTEGRITY TOPICALL LLY 2 CARIDAD 2021 [facility] SPRAY,TOP Y [facility] DIRECTED FOR WOUND CARE Clotrimazol APPLY TO Active 07/30/2022 [id number] PARA DISE, 08/05/ [place] e (Lotrimin AFFECTED 2 CARIDAD2021 olis Eq.) Cream AREA [facility] 1% Topical TOPICALL Y TWICE A DAY NEEDED COLD ROLL PACKER SHEET IRON AL USE ONLY FOR FUNGAL INFECTIO NS Clotrimazol APPLY TO Discont 08/05/2021 [id number] PAR ADISE, 12/19/ [place] e (Lotrimin AFFECTED inued 1 CARIDAD2020 olis Eq.) Cream AREA [facility] 1% Topical TOPICALL Y TWICE A DAY NEEDED COLD ROLL PACKER SHEET IRON AL USE ONLY FOR FUNGAL INFECTIO NS CLOTRIMAZOL APPLY TO TOPICA ACTIVE 07/30/2022 [id number] [place], 08/02/ [place] E 1% AFFECTED LLY 2 CARIDAD2021 OL[facility] CREAM,TOP [facility]A [facility] TOPICALL Y TWICE A DAY NEEDED COLD ROLL PACKER SHEET IRON AL USE ONLY FOR FUNGAL INFECTIO NS CLOTRIMAZOL APPLY TO TOPICA DISCONT 08/05/2021 [id number] [place], 08/05/ [place] E 1% AFFECTED LLY INUED 1 2020 [facility] CREAM,TOP AREA [facility] TOPICALL Y TWICE A DAY NEEDED COLD ROLL PACKER SHEET IRON AL USE ONLY FOR FUNGAL INFECTIO NS CODEIN/guai TAKE 5 Discont 11/09/2021 [id number] PARAD ISE, 06/27/ [place] FEN ML TO 10 inued 2 CARIDAD2021 olis 10-100MG/5M ML BY [facility] ORAL LIQD MOUTH THREE TIMES A DAY NEEDED FOR COUGH CODEIN/guai TAKE 5 Discont 06/17/2021 [id number] PARAD ISE, 05/11/ [place] FEN ML TO 10 inued 1 CARIDAD2021 olis 10-100MG/5M ML BY [facility] L ORAL LIQD MOUTH THREE TIMES A DAY NEEDED FOR COUGH CODEIN/guai TAKE 5 Discont 02/04/2021 [id number] PARAD ISE, 12/19/ [place] FEN ML TO 10 inued 1 CARIDAD 2020 olis 10-100MG/5M ML BY [facility] L ORAL LIQD MOUTH THREE TIMES A DAY NEEDED FOR COUGH CODEINE TAKE 5 ORALLY ACTIVE 06/17/2022 [id number] [place], 12/15/ [place] 10MG/GUAIFE ML TO 10 2 CARIDAD 2021 [facility] NESIN ML BY [facility] 100MG/5ML MOUTH (SF & AF) TWICE A LIQUID DAY NEEDED FOR COUGH CODEINE TAKE 5 ORALLY DISCONT 01/29/2022 [id number] DIXIE E, 07/29/ [place] 10MG/GUAIFE ML TO 10 INUED 2 CARIDAD2021 [facility] NESIN ML BY [facility] 100MG/5ML MOUTH (SF & AF) THREE LIQUID TIMES A DAY NEEDED FOR COUGH CODEINE TAKE 5 ORALLY DISCONT 06/17/2021 [id number] [place] , 12/15/ [place] 10MG/GUAIFE ML TO 10 INUED 1 CARIDAD 2020 [facility] NESIN ML BY [facility] 100MG/5ML MOUTH (SF & AF) THREE LIQUID TIMES A DAY NEEDED FOR COUGH CODEINE TAKE 5 ORALLY DISCONT 11/09/2021 [id number] [place] , 05/09/ [place] 10MG/GUAIFE ML TO 10 INUED 2 CARIDAD2021 [facility] NESIN ML BY [facility] 100MG/5ML MOUTH (SF & AF) THREE LIQUID TIMES A DAY NEEDED FOR COUGH CODEINE TAKE 5 ORALLY DISCONT 02/04/2021 [id number] DIXIE E, 08/04/ [place] 10MG/GUAIFE ML TO 10 INUE 1 CARIDAD 2020 [facility] NESIN ML BY [facility] 100MG/5ML MOUTH (SF & AF) THREE LIQUID TIMES A DAY NEEDED FOR COUGH COZAAR TAKE Active 07/30/2022 [id number] [place], / [place] (BRAND) 50 ONE-HALF 2 CARIDAD2021 olis MG ORAL TAB TABLET [facility] BY MOUTH EVERY DAY FOR HIGH BLOOD PRESSURE COZAAR TAKE Discont 01/18/2022 [id number] [place], 0 06/27/ [place] (BRAND) 50 ONE-HALF inued 2 CARIDAD2021 olis MG ORAL TAB TABLET [facility] BY MOUTH EVERY DAY FOR HIGH BLOOD PRESSURE COZAAR TAKE 03/28/2021 [id number] [place], 1 03/03/ [place] (BRAND) 50 ONE-HALF 1 CARIDAD2020 olis MG ORAL TAB TABLET [facility] BY MOUTH EVERY DAY FOR HIGH BLOOD PRESSURE CYANOCOBALA TAKE TWO Active 07/30/2022 [id number] PARA DISE, 08/05/ [place] MIN 1,000 TABLETS 2 2021 olis MCG ORAL BY MOUTH [facility] TAB EVERY WEEK FOR VITAMIN B12 SUPPLEME NT CYANOCOBALA TAKE TWO Discont 04/26/2022 [id number] PAR ADISE, 06/27/ [place] MIN 1,000 TABLETS inued 2 2021 olis MCG ORAL BY MOUTH [facility] TAB EVERY WEEK FOR VITAMIN B12 SUPPLEME NT CYANOCOBALA TAKE TWO 08/05/2021 [id number] [place] ADISE, 03/23/ [place] MIN 1,000 TABLETS 2 2021 olis MCG ORAL BY MOUTH [facility] TAB EVERY WEEK FOR VITAMIN B12 SUPPLEME NT CYANOCOBALA TAKE TWO ORALLY SUSPEND 07/30/2022 [id number] [place], 08/02/ [place] MIN 1000MCG TABLETS ED 2 2021 OLIS V A TAB BY MOUTH [facility] EVERY WEEK FOR VITAMIN B12 SUPPLEME NT CYANOCOBALA TAKE TWO ORALLY DISCONT 04/26/2022 [id number] [place], 07/21/ [place] MIN 1000MCG TABLETS INUED 2 CARIDAD2021 OLIS V A TAB BY MOUTH [facility] EVERY WEEK FOR VITAMIN B12 SUPPLEME NT CYANOCOBALA TAKE TWO ORALLY DISCONT 08/05/2021 [id number] [place], 08/05/ [place] MIN 1000MCG TABLETS INUE 2 CARIDAD2020 OLIS V A TAB BY MOUTH [facility] EVERY WEEK FOR VITAMIN B12 SUPPLEME NT DICLOFENAC APPLY 2 TOPICA ACTIVE 07/30/2022 [id number] [place] AD[place], 08/02/ [place] NA 1% GRAMS LLY 2 CARIADD2021 [facility] GEL,TOP TOPICALL [facility] Y FOUR TIMES A DAY NEEDED TO AFFECTED AREA FOR PAIN. *USE DOSE CARD IN BOX TO MEASURE DOSE. MAX 32 GRAMS PER DAY. DICLOFENAC APPLY 4 DISCONT 10/18/2021 [id number] PARA DISE, 10/17/ [place] NA 1% GRAMS TO INUED 2 CARIDAD2020 [facility] GEL,TOP KNEE [facility] FOUR TIMES A DAY NEEDED FOR PAIN -USE DOSE CARD IN BOX TO MEASURE DOSE -MAXIMUM OF 32 GM PER DAY Diclofenac APPLY 2 Active 07/30/2022 [id number] [place]I SE, 08/05/ [place] Sodium GRAMS 2 CARIDAD2021 olis 0.01mg/mg, TOPICALL [facility] Gel/Jelly, Y FOUR Topical TIMES A DAY NEEDED TO AFFECTED AREA FOR PAIN. *USE DOSE CARD IN BOX TO MEASURE DOSE. MAX 32 GRAMS PER DAY. Diclofenac APPLY 4 Discont 10/18/2021 [id number] PARAD ISE, 06/27/ [place] Sodium GRAMS TO inued 2 2021 olis 0.01mg/mg, KNEE [facility] Gel/Jelly, FOUR Topical TIMES A DAY NEEDED FOR PAIN -USE DOSE CARD IN BOX TO MEASURE DOSE -MAXIMUM OF 32 GM PER DAY DOCUSATE TAKE ONE Discont 04/16/2022 [id number] PARADI SE, 06/27/ [place] (U/D) 100 CAPSULE inued 2 2021 olis MG ORAL CAP BY MOUTH [facility] TWICE A DAY *STOP IF HAVING DIARRHEA * DOCUSATE NA TAKE ONE ORALLY DISCONT 04/16/2022 [id number] [place], 04/19/ [place] 100MG CAP CAPSULE INUED 2 CARIDAD2021 [facility] VA BY MOUTH [facility] TWICE A DAY *STOP IF HAVING DIARRHEA * DOCUSATE NA TAKE 1 ORALLY ACTIVE 07/30/2022 [id number] [place] ADISE, 08/02/ [place] 50MG/SENNOS TABLET 2 2021 [facility] IDES 8.6MG BY MOUTH [facility] TAB TWICE A DAY NEEDED FOR CONSTIPA TION STOP IF DIARRHEA OCCURS DOXYCYCLINE TAKE ONE ORALLY DISCONT 03/25/2021 [id number] TRAUT,ANÍBAL 02/23/ [place] HYCLATE TABLET INUED 2 HARD L 2021 [facility] 100MG TAB BY MOUTH [facility] TWICE A DAY DOXYCYCLINE TAKE ONE ORALLY 01/08/2021 [id number] ROSSI,MA 12/09/ [place] HYCLATE TABLET 1 RY T 2020 [facility] 100MG TAB BY MOUTH [facility] TWICE A DAY FOR WOUND INFECTIO N Doxycycline TAKE ONE Discont 03/25/2021 [id number] TRA UT, 06/28/ [place] Tablet TABLET inued 2 JOSE L 2021 olis 100mg Oral BY MOUTH [facility] TWICE A DAY Doxycycline TAKE ONE 01/08/2021 [id number] DIANA ARLENE, 01/17/ [place] Tablet TABLET 1 FRANKLIN T 2020 olis 100mg Oral BY MOUTH [facility] TWICE A DAY FOR WOUND INFECTIO N EMPAGLIFLOZ TAKE Active 07/30/2022 [id number] DIXIE E, 10/24/ [place] IN 25 MG ONE-HALF 2 CARIDAD2021 olis ORAL TAB TABLET [facility] BY MOUTH EVERY MORNING FOR DIABETES EMPAGLIFLOZ TAKE Discont 06/14/2022 [id number] PARADI SE, 06/27/ [place] IN 25 MG ONE-HALF inued 2 CARIDAD 2021 olis ORAL TAB TABLET [facility] BY MOUTH EVERY MORNING FOR DIABETES EMPAGLIFLOZ TAKE Discont 08/12/2021 [id number] [place]I SE, 06/23/ [place] IN 25 MG ONE-HALF inued 2 CARIDAD 2021 olis ORAL TAB TABLET [facility] BY MOUTH EVERY MORNING FOR DIABETES EMPAGLIFLOZ TAKE ORALLY SUSPEND 07/30/2022 [id number] P ARADISE, 08/02/ [place] IN 25MG TAB ONE-HALF ED 2 CARIDAD2021 [facility] VA TABLET [facility] BY MOUTH EVERY MORNING FOR DIABETES EMPAGLIFLOZ TAKE ORALLY DISCONT 06/14/2022 [id number] P ARADISE, 07/27/ [place] IN 25MG TAB ONE-HALF INUED 2 CARIDAD 2021 [facility] TABLET [facility] BY MOUTH EVERY MORNING FOR DIABETES EMPAGLIFLOZ TAKE ORALLY DISCONT 08/12/2021 [id number] PARAD ISE, 08/11/ [place] IN 25MG TAB ONE-HALF INUED 2 2020 [facility] TABLET [facility] BY MOUTH EVERY MORNING FOR DIABETES Ergocalcife TAKE ONE Active 07/30/2022 [id number] PARA DISE, 10/24/ [place] rol CAPSULE 2 2021 olis (Vitamin D BY MOUTH [facility] Eq.) EVERY Capsule MONTH Conventiona l 1.25 mg Oral Ergocalcife TAKE ONE Discont 08/05/2021 [id number] [place] AD[place], 06/28/ [place] rol CAPSULE inued 2 2021 olis (Vitamin D BY MOUTH [facility] Eq.) EVERY Capsule MONTH Conventiona l 1.25 mg Oral ERGOCALCIFE TAKE ONE ORALLY DISCONT 07/30/2022 [id number] [place], 09/01/ [place] ROL CAPSULE INUED 2 2021 [facility] 1,250MCG BY MOUTH [facility] (50,000UNIT EVERY ) CAP MONTH ERGOCALCIFE TAKE ONE ORALLY DISCONT 08/05/2021 [id number] [place], 09/16/ [place] ROL CAPSULE INUED 2 2020 [facility] 1,250MCG BY MOUTH [facility] (50,000UNIT EVERY ) CAP MONTH FERROUS SO4 TAKE ONE ORALLY DISCONT 08/10/2021 [id number] [place], 10/24/ [place] 325MG TAB TABLET INUED 1 2020 [facility] VA BY MOUTH [facility] EVERY DAY FOR ANEMIA (IRON) FLONASE-OTC SPRAY 1 Active 07/30/2022 [id number] PARAD ISE, 08/05/ [place] (BRAND) 50 PUFF 2 2021 olis MCG ELLE EACH [facility] SPSN [9.9] NOSTRIL IN EACH NOSTRIL TWICE A DAY FOR NASAL USE FLONASE-OTC SPRAY 1 Discont 08/05/2021 [id number] PARA DISE, 06/28/ [place] (BRAND) 50 PUFF inued 2 2021 olis MCG ELLE EACH [facility] SPSN [9.9] NOSTRIL IN EACH NOSTRIL TWICE A DAY FOR NASAL USE FLUTICASONE SPRAY 1 NASAL ACTIVE 07/30/2022 [id number] P ARADISE, 08/02/ [place] PROPIONATE PUFF 2 2021 [facility] VA 50MCG/SPRAY EACH [facility] SOLN,NASAL, NOSTRIL 16GM IN EACH NOSTRIL TWICE A DAY FOR NASAL USE FLUTICASONE SPRAY 1 NASAL DISCONT 08/05/2021 [id number] [place], 08/05/ [place] PROPIONATE PUFF INUED 2 2020 [facility] VA 50MCG/SPRAY EACH [facility] SOLN,NASAL, NOSTRIL 16GM IN EACH NOSTRIL TWICE A DAY FOR NASAL USE GABAPENTIN TAKE TWO ORALLY DISCONT 08/10/2021 [id number] [place], 09/28/ [place] 400MG CAP CAPSULES INUED 1 2020 [facility] VA BY MOUTH [facility] THREE TIMES A DAY FOR NEUROPAT HY GABAPENTIN TAKE TWO ORALLY DISCONT 08/05/2021 [id number] [place], 09/28/ [place] 400MG CAP CAPSULES INUE 1 2020 [facility] VA BY MOUTH [facility] THREE TIMES A DAY FOR NEUROPAT HY glipiZIDE TAKE ONE Active 07/30/2022 [id number] [place]I SE, 08/05/ [place] (U/D) 10 MG TABLET 2 2021 olis ORAL TAB BY MOUTH [facility] TWICE A DAY TAKE 30 MINUTES BEFORE MEAL FOR DIABETES glipiZIDE TAKE ONE Discont 08/05/2021 [id number] PARAD ISE, 06/27/ [place] (U/D) 10 MG TABLET inued 2 2021 olis ORAL TAB BY MOUTH [facility] TWICE A DAY TAKE 30 MINUTES BEFORE MEAL FOR DIABETES GLIPIZIDE TAKE ONE ORALLY ACTIVE 07/30/2022 [id number] PA RADISE, 08/02/ [place] 10MG TAB TABLET 2 2021 [facility] VA BY MOUTH [facility] TWICE A DAY TAKE 30 MINUTES BEFORE MEAL FOR DIABETES GLIPIZIDE TAKE ONE ORALLY DISCONT 08/05/2021 [id number] P ARADISE, 08/05/ [place] 10MG TAB TABLET INUED 2 CARIDAD2020 [facility] VA BY MOUTH [facility] TWICE A DAY TAKE 30 MINUTES BEFORE MEAL FOR DIABETES Hydrocortis APPLY Discont 12/15/2021 [id number] [place]I SE, 06/28/ [place] one THIN inued 2 CARIDAD2021 olis (ProctoCrea LAVER TO [facility] Eq.) ANKLE Cream 2.5% TOPICALL Topical Y THREE TIMES A DAY NEEDED FOR ITCHING Hydrocortis APPLY Discont 01/19/2021 [id number] [place]I SE, 12/18/ [place] one THIN inued 1 CARIDAD2020 olis (ProctoCrea LAVER TO [facility]- Eq.) ANKLE Cream 2.5% TOPICALL Topical Y THREE TIMES A DAY NEEDED FOR ITCHING HYDROCORTIS APPLY TOPICA DISCONT 12/15/2021 [id number] P ARADISE, 12/23/ [place] ONE 2.5% THIN LLY INUED 2 CARIDAD2020 [facility] CREAM,TOP LAVER TO [facility] ANKLE TOPICALL Y THREE TIMES A DAY NEEDED FOR ITCHING HYDROCORTIS APPLY TOPICA DISCONT 01/19/2021 [id number] PA RADISE, 01/19/ [place] ONE 2.5% THIN LLY INUE 1 2019 [facility] CREAM,TOP LAVER TO [facility] ANKLE TOPICALL Y THREE TIMES A DAY NEEDED FOR ITCHING Ibuprofen TAKE ONE 10/04/2021 [id number] IBRAH IM, 10/08/ [place] (Motrin) TABLET 2 ABDISAMAD 2021 olis Tablet 800 BY MOUTH [facility] mg Oral EVERY 8 HOURS FOR PAIN TAKE WITH FOOD Ibuprofen TAKE ONE Discont 12/29/2021 [id number] PARAD ISE, 01/09/ [place] (Motrin) TABLET inued 1 2020 olis Tablet 800 BY MOUTH [facility] mg Oral THREE TIMES A DAY NEEDED FOR SEVERE ARTHRITI S PAIN *TAKE WITH FOOD IBUPROFEN TAKE ONE Active 07/30/2022 [id number] PARADI SE, 08/05/ [place] (U/D) 600 TABLET 2 2021 olis MG ORAL TAB BY MOUTH [facility] EVERY DAY NEEDED FOR JOINT PAIN TAKE WITH FOOD IBUPROFEN TAKE ONE Discont 03/23/2022 [id number] PARAD ISE, 06/27/ [place] (U/D) 600 TABLET inued 2 2021 olis MG ORAL TAB BY MOUTH [facility] EVERY DAY NEEDED FOR JOINT PAIN TAKE WITH FOOD IBUPROFEN TAKE ONE ORALLY ACTIVE 12/06/2022 [id number] PA RADISE, 12/07/ [place] 600MG TAB TABLET 2 2021 [facility] VA BY MOUTH [facility] EVERY DAY NEEDED FOR JOINT PAIN TAKE WITH FOOD IBUPROFEN TAKE ONE ORALLY DISCONT 07/30/2022 [id number] P ARADISE, 08/02/ [place] 600MG TAB TABLET INUED 2 2021 [facility] VA BY MOUTH [facility] EVERY DAY NEEDED FOR JOINT PAIN TAKE WITH FOOD IBUPROFEN TAKE ONE ORALLY DISCONT 03/23/2022 [id number] PA RADISE, 03/23/ [place] 600MG TAB TABLET INUED 2 2021 [facility] VA BY MOUTH [facility] EVERY DAY NEEDED FOR JOINT PAIN TAKE WITH FOOD IBUPROFEN TAKE ONE ORALLY DISCONT 12/29/2021 [id number] PA RADISE, 12/28/ [place] 800MG TAB TABLET INUED 1 2020 [facility] VA BY MOUTH [facility] THREE TIMES A DAY NEEDED FOR SEVERE ARTHRITI S PAIN *TAKE WITH FOOD IBUPROFEN TAKE ONE ORALLY 10/04/2021 [id number] IB RAHIM,A 09/04/ [place] 800MG TAB TABLET 2 BDISAMAD 2021 OLIS V A BY MOUTH [facility] EVERY 8 HOURS FOR PAIN TAKE WITH FOOD Insulin INJECT 8 Active 07/30/2022 [id number] [place] , 08/03/ [place] Glargine UNITS 2 2021 olis 100U/mL, UNDER [facility] Injection, THE SKIN Pen AT Injector BEDTIME FOR DIABETES DISPENSE WITH SOLSTAR PEN Insulin INJECT 8 Discont 01/25/2022 [id number] DIXIE E, 06/28/ [place] Glargine UNITS inued 2 2021 olis 100U/mL, UNDER [facility] Injection, THE SKIN Pen AT Injector BEDTIME FOR DIABETES DISPENSE WITH SOLSTAR PEN INSULIN,GLA INJECT 8 SUBCUT ACTIVE 07/30/2022 [id number] P ARADISE, 08/01/ [place] RGINE,HUMAN UNITS ANEOUS 2 2021 OLIS VA 100 UNIT/ML UNDER [facility] INJ,SOLOSTA THE SKIN R,3ML AT BEDTIME FOR DIABETES DISPENSE WITH SOLSTAR PEN INSULIN,GLA INJECT 8 SUBCUT DISCONT 01/25/2022 [id number] [place], 01/25/ [place] RGINE,HUMAN UNITS ANEOUS INUED 2 2020 OL[facility] VA 100 UNIT/ML UNDER [facility] INJ,SOLOSTA THE SKIN R,3ML AT BEDTIME FOR DIABETES DISPENSE WITH SOLSTAR PEN INV-CAPSS-0 TAKE ONE 09/17/2021 [id number] FB- STEENB 09/02/ [place] 43-Levoflox TABLET 2 2021 olis Tablet 500 BY MOUTH [facility] mg Oral EVERY DAY INV-CAPSS-0 TAKE ONE Discont 09/14/2021 [id number] FB- STEENB 09/02/ [place] 43-Levoflox TABLET inued 2 2021 olis Tablet 500 BY MOUTH [facility] mg Oral ONCE EVERY DAY FOR 7 DAYS IRX: TAKE ONE Active 07/30/2022 [id number] [place], 08/05/ [place] Tadalafil TABLET 2 2021 olis 20 mg vs BY MOUTH [facility] Placebo AT Tablet Oral BEDTIME TAKE AT LEAST 30 MINUTES BEFORE ANTICIPA CARLO SEXUAL ACTIVITY . MAXIMUM 4 DOSES FOR 30-DAY SUPPLY IRX: TAKE ONE Discont 08/05/2021 [id number] [place], 06/28/ [place] Tadalafil TABLET inued 2 2021 olis 20 mg vs BY MOUTH [facility] Placebo AT Tablet Oral BEDTIME TAKE AT LEAST 30 MINUTES BEFORE ANTICIPA CARLO SEXUAL ACTIVITY . MAXIMUM 4 DOSES FOR 30-DAY SUPPLY IRX: TAKE ONE Discont 09/08/2021 [id number] [place], 06/27/ [place] Vitamin E CAPSULE inued 2 CARIDAD 2021 olis (C.2004.167 BY MOUTH [facility] ) Capsule EVERY Conventiona DAY l 400 Internation al Units Oral Latanoprost INSTILL Discont 10/12/2021 [id number] KULE NKAMP 06/27/ [place] (Xalatan 1 DROP inued 1 , 2021 olis Eq.) IN LEFT [facility] Solution EYE AT 0.005% BEDTIME Optical FOR GLAUCOMA REFRIGER ATE BOTTLE UNTIL OPENED. LATANOPROST INSTILL LEFT DISCONT 10/12/2021 [id number] K ULENKAMP [place] 0.005% 1 DROP EYE INUED 1 ,BRANDY E 2020 OLIS VA SOLN,OPH IN LEFT HCS EYE AT BEDTIME FOR GLAUCOMA REFRIGER ATE BOTTLE UNTIL OPENED. FOR GLAUCOMA REFRIGER ATE BOTTLE UNTIL OPENED. LEVOFLOXACI TAKE ONE ORALLY DISCONT 09/14/2021 [id number] FB-STEENB 08/15/ [place] N 500MG TAB TABLET INUED 2 LOCK,N 2021 MARK S VA BY MOUTH [facility] ONCE EVERY DAY FOR 7 DAYS LEVOFLOXACI TAKE ONE ORALLY 09/17/2021 [id number] FB-STEENB 08/19/ [place] N 500MG TAB TABLET 2 LOCK,2021 MARK S VA BY MOUTH [facility] EVERY DAY Lidocaine APPLY Discont 08/05/2021 [id number] [place] , 06/27/ [place] (Samantha-Max MODERATE inued 2 CARIDAD2021 olis Eq.) Cream AMOUNT [facility] 4% Topical THREE TIMES A DAY NEEDED FOR PAIN CREAM Lidocaine APPLY 1 Active 07/12/2022 [id number] DIXIE E, 07/15/ [place] (Lidoderm PATCH 2 CARIDAD2021 olis Eq.) TOPICALL [facility] Transdermal Y EVERY System 5% DAY Topical NEEDED FOR PAIN. WEAR FOR ONLY 12 HOURS THEN REMOVE FOR 12 HOURS. Lidocaine APPLY 1 Discont 08/05/2021 [id number] PARADI SE, 06/28/ [place] (Lidoderm PATCH inued 2 2021 olis Eq.) EVERY [facility] Transdermal DAY FOR System 5% BACK Topical PAIN -WEAR FOR ONLY 12 HOURS AND THEN REMOVE AND LEAVE OFF FOR 12 HOURS LIDOCAINE APPLY TOPICA DISCONT 08/05/2021 [id number] [place]ADI SE, 08/05/ [place] 4% MODERATE LLY INUED 2 2020 OL[facility] CREAM,TOP AMOUNT [facility] THREE TIMES A DAY NEEDED FOR PAIN CREAM LIDOCAINE 5 APPLY Active 07/12/2022 [id number] DIXIE E, 07/15/ [place] % TOP OINT MODERATE 2 2021 olis [30 GM] AMOUNT [facility] TOPICALL Y FOUR TIMES A DAY NEEDED FOR PAIN LIDOCAINE APPLY TOPICA ACTIVE 07/12/2022 [id number] PARADISE , 07/13/ [place] 5% OINT,TOP MODERATE LLY 2 2021 [facility] AMOUNT [facility] TOPICALL Y FOUR TIMES A DAY NEEDED FOR PAIN LIDOCAINE APPLY 1 TOPICA ACTIVE 07/12/2022 [id number] PARADI SE, 07/13/ [place] 5% PATCH PATCH LLY 2 2021 [facility] TOPICALL [facility] Y EVERY DAY NEEDED FOR PAIN. WEAR FOR ONLY 12 HOURS THEN REMOVE FOR 12 HOURS. LIDOCAINE APPLY 1 TOPICA DISCONT 08/05/2021 [id number] PA RADISE, 08/05/ [place] 5% PATCH PATCH LLY INUED 2 2020 OLIS VA EVERY [facility] DAY FOR BACK PAIN -WEAR FOR ONLY 12 HOURS AND THEN REMOVE AND LEAVE OFF FOR 12 HOURS LOSARTAN TAKE ORALLY ACTIVE 07/30/2022 [id number] PARADISE , 09/05/ [place] 50MG TAB ONE-HALF 2 CARIDAD2021 OL[facility] TABLET [facility] BY MOUTH EVERY DAY FOR HIGH BLOOD PRESSURE LOSARTAN TAKE ORALLY DISCONT 01/18/2022 [id number] DIXIE E, 03/19/ [place] 50MG TAB ONE-HALF INUED 2 CARIDAD2021 [facility] TABLET [facility] BY MOUTH EVERY DAY FOR HIGH BLOOD PRESSURE [place]ARTAN TAKE ORALLY DISCONT 03/28/2021 [id number] PARADISE , 12/29/ [place] 50MG TAB ONE-HALF INUE 1 CARIDAD2020 OL[facility] TABLET [facility] BY MOUTH EVERY DAY FOR HIGH BLOOD PRESSURE MELATONIN TAKE 2 ORALLY DISCONT 08/05/2021 [id number] PARADI SE, 08/05/ [place] 3MG CAP/TAB TABLETS INUED 1 CARIDAD 2020 OLIS V A BY MOUTH [facility] AT BEDTIME FOR SLEEP METFORMIN TAKE TWO ORALLY DISCONT 08/05/2021 [id number] PA RADISE, 08/05/ [place] HCL TEASPOON INUED 2 CARIDAD2020 OLIS VA 500MG/5ML SFUL BY [facility] SOLN,ORAL MOUTH TWICE A DAY Metformin TAKE TWO Discont 08/05/2021 [id number] PARAD ISE, 06/27/ [place] Hydrochlori TEASPOON inued 2 CARIDAD2021 olis de SFUL BY [facility] 100mg/mL, MOUTH Solution, TWICE A Oral DAY miconazole USE TO Active 07/30/2022 [id number] DIXIE E, 08/05/ [place] nitrate 2 % AFFECTED 2 CARIDAD 2021 olis TOP POW[place] AREA [facility] [85 GM] TOPICALL Y TWICE A DAY FOR FUNGAL INFECTIO N/GROIN RASH miconazole USE TO Discont 05/12/2021 [id number] PARADI SE, 06/27/ [place] nitrate 2 % AFFECTED inued 2 CARIDAD 2021 olis TOP POWD AREA [facility] [85 GM] TOPICALL Y TWICE A DAY FOR FUNGAL INFECTIO N/GROIN RASH MICONAZOLE USE TO TOPICA ACTIVE 07/30/2022 [id number] PAR ADISE, 08/02/ [place] NITRATE 2% AFFECTED LLY 2 CARIDAD 2021 OLIS V A PWDR,TOP AREA [facility] TOPICALL Y TWICE A DAY FOR FUNGAL INFECTIO N/GROIN RASH MICONAZOLE USE TO TOPICA DISCONT 05/12/2021 [id number] PAR ADISE, 05/12/ [place] NITRATE 2% AFFECTED LLY INUED 2 CARIDAD2020 OLIS V A PWDR,TOP AREA [facility] TOPICALL Y TWICE A DAY FOR FUNGAL INFECTIO N/GROIN RASH MULTIVITAMI TAKE 1 ORALLY SUSPEND 07/30/2022 [id number] P ARADISE, 08/02/ [place] NS TABLET ED 2 2021 OLIS VA W/MINERALS, BY MOUTH [facility] EVERY CAP/TAB DAY FOR FOLIC ACID AND IRON DEFICIEN CY (REPLACE S FERROUS SULFATE) MULTIVITAMI TAKE 1 ORALLY DISCONT 12/16/2021 [id number] PA RADISE, 12/17/ [place] NS TABLET INUED 2 2020 OLIS VA W/MINERALS, BY MOUTH [facility] EVERY CAP/TAB DAY FOR FOLIC ACID AND IRON DEFICIEN CY (REPLACE S FERROUS SULFATE) NALOXONE SPRAY 1 NOSTRI ACTIVE 07/12/2022 [id number] DIXIE E, 07/13/ [place] H[facility] DOSE IN L 2 2021 [facility] 4MG/SPRAY ONE [facility] SOLN,SPRAY, NOSTRIL NASAL DIRECTED FOR UNRESPON SIVENESS (FOR NARCOTIC OVERDOSE ) THEN CALL 911 - IF NO CHANGE IN 2-3 MINUTES, GIVE SECOND DOSE IN OPPOSITE NOSTRIL Oxycodone 5 TAKE 2 10/23/2020 [id number] [facility] ISE, 10/27/ [place] mg/Acetamin TABLETS 1 2020 olis ophen 325 BY MOUTH [facility] mg Tablet TWICE A Oral DAY NEEDED FOR SEVERE FOOT PAIN -DO NOT EXCEED 4000MG OF ACETAMIN OPHEN IN 24 HOURS FROM ALL SOURCES Oxycodone 5 TAKE 2 11/09/2021 [id number] [facility] ISE, 10/17/ [place] mg/Acetamin TABLETS 2 2021 olis ophen 325 BY MOUTH [facility] mg Tablet THREE Oral TIMES A DAY FOR SEVERE FOOT PAIN Oxycodone 5 TAKE 2 Discont 10/15/2021 [id number] [facility] ISE, 10/17/ [place] mg/Acetamin TABLETS inued 2 2021 olis ophen 325 BY MOUTH [facility] mg Tablet THREE Oral TIMES A DAY FOR SEVERE FOOT PAIN Oxycodone 5 TAKE 2 Discont 09/16/2021 [id number] [facility] ISE, 09/18/ [place] mg/Acetamin TABLETS inued 2 CARIDAD2021 olis ophen 325 BY MOUTH [facility] mg Tablet THREE Oral TIMES A DAY FOR SEVERE FOOT PAIN Oxycodone 5 TAKE 2 08/10/2021 [id number] [facility] ISE, 08/21/ [place] mg/Acetamin TABLETS 2 CARIDAD 2021 olis ophen 325 BY MOUTH [facility] mg Tablet THREE Oral TIMES A DAY FOR SEVERE FOOT PAIN Oxycodone 5 TAKE 2 Discont 06/18/2021 [id number] [facility] ISE, 06/28/ [place] mg/Acetamin TABLETS inued 2 CARIDAD 2021 olis ophen 325 BY MOUTH [facility] mg Tablet THREE Oral TIMES A DAY FOR SEVERE FOOT PAIN Oxycodone 5 TAKE 2 Discont 05/25/2021 [id number] [facility] ISE, 05/22/ [place] mg/Acetamin TABLETS inued 2 2021 olis ophen 325 BY MOUTH [facility] mg Tablet THREE Oral TIMES A DAY FOR SEVERE FOOT PAIN Oxycodone 5 TAKE 2 04/16/2021 [id number] [facility] ISE, 04/25/ [place] mg/Acetamin TABLETS 2 CARIDAD 2021 olis ophen 325 BY MOUTH [facility] mg Tablet THREE Oral TIMES A DAY FOR SEVERE FOOT PAIN Oxycodone 5 TAKE 2 03/24/2021 [id number] [facility] ISE, 03/06/ [place] mg/Acetamin TABLETS 2 2021 olis ophen 325 BY MOUTH [facility] mg Tablet THREE Oral TIMES A DAY FOR SEVERE FOOT PAIN Oxycodone 5 TAKE 2 Discont 02/23/2021 [id number] [facility] ISE, 03/06/ [place] mg/Acetamin TABLETS inued 1 CARIDAD2021 olis ophen 325 BY MOUTH [facility] mg Tablet THREE Oral TIMES A DAY FOR SEVERE FOOT PAIN Oxycodone 5 TAKE 2 01/14/2021 [id number] [facility] ISE, 12/19/ [place] mg/Acetamin TABLETS 1 2020 olis ophen 325 BY MOUTH [facility] mg Tablet THREE Oral TIMES A DAY NEEDED FOR SEVERE FOOT PAIN -LOWER TO 2 TABLETS TWICE A DAY TOLERATE D -DO NOT EXCEED 4000MG OF ACETAMIN OPHEN IN 24 HOURS FROM ALL SOURCES Oxycodone 5 TAKE 2 Discont 12/22/2020 [id number] [facility] ISE, 12/19/ [place] mg/Acetamin TABLETS inued 1 CARIDAD2020 olis ophen 325 BY MOUTH [facility] mg Tablet TWICE A Oral DAY NEEDED FOR SEVERE FOOT PAIN -DO NOT EXCEED 4000MG OF ACETAMIN OPHEN IN 24 HOURS FROM ALL SOURCES Oxycodone 5 TAKE 2 Discont 11/25/2020 [id number] [facility] ISE, 11/24/ [place] mg/Acetamin TABLETS inued 1 2020 olis ophen 325 BY MOUTH [facility] mg Tablet TWICE A Oral DAY NEEDED FOR SEVERE FOOT PAIN -DO NOT EXCEED 4000MG OF ACETAMIN OPHEN IN 24 HOURS FROM ALL SOURCES OXYCODONE TAKE 2 ORALLY ACTIVE 01/11/2022 [id number] DIXIE E, 12/14/ [place] [facility] TABLETS 2 CARIDAD2021 [facility] 5MG/ACETAMI BY MOUTH [facility] NOPHEN THREE 325MG TAB TIMES A DAY FOR SEVERE FOOT PAIN OXYCODONE TAKE 2 ORALLY DISCONT 12/16/2021 [id number] PAR[facility]I SE, 11/16/ [place] [facility] TABLETS INUED 2 CARIDAD2021 [facility] 5MG/ACETAMI BY MOUTH [facility] NOPHEN THREE 325MG TAB TIMES A DAY FOR SEVERE FOOT PAIN OXYCODONE TAKE 2 ORALLY DISCONT 10/15/2021 [id number] PAR[facility]I SE, 09/15/ [place] [facility] TABLETS INUED 2 CARIDAD2021 [facility] 5MG/ACETAMI BY MOUTH [facility] NOPHEN THREE 325MG TAB TIMES A DAY FOR SEVERE FOOT PAIN OXYCODONE TAKE 2 ORALLY DISCONT 09/16/2021 [id number] PAR[facility] SE, 08/18/ [place] [facility] TABLETS INUED 2 CARIDAD2021 [facility] 5MG/ACETAMI BY MOUTH [facility] NOPHEN THREE 325MG TAB TIMES A DAY FOR SEVERE FOOT PAIN OXYCODONE TAKE 2 ORALLY DISCONT 06/18/2021 [id number] PARADI SE, 05/26/ [place] [facility] TABLETS INUED 2 CARIDAD2021 [facility] 5MG/ACETAMI BY MOUTH [facility] NOPHEN THREE 325MG TAB TIMES A DAY FOR SEVERE FOOT PAIN OXYCODONE TAKE 2 ORALLY DISCONT 05/25/2021 [id number] PAR[facility] SE, 04/29/ [place] [facility] TABLETS INUED 2 CARIDAD 2021 [facility] 5MG/ACETAMI BY MOUTH [facility] NOPHEN THREE 325MG TAB TIMES A DAY FOR SEVERE FOOT PAIN OXYCODONE TAKE 2 ORALLY DISCONT 03/24/2021 [id number] [facility] SE, 03/04/ [place] [facility] TABLETS INUE 2 CARIDAD 2021 [facility] 5MG/ACETAMI BY MOUTH [facility] NOPHEN THREE 325MG TAB TIMES A DAY FOR SEVERE FOOT PAIN OXYCODONE TAKE 2 ORALLY DISCONT 02/23/2021 [id number] PAR[facility]I SE, 02/05/ [place] [facility] TABLETS INUE 1 CARIDAD 2020 [facility] 5MG/ACETAMI BY MOUTH [facility] NOPHEN THREE 325MG TAB TIMES A DAY FOR SEVERE FOOT PAIN OXYCODONE TAKE 1 ORALLY DISCONT 02/13/2021 [id number] PAR[facility] SE, 01/15/ [place] [facility] TABLET INUED 1 CARIDAD 2020 [facility] 5MG/ACETAMI BY MOUTH (EDIT) [facility] NOPHEN FOUR 325MG TAB TIMES A DAY NEEDED FOR SEVERE FOOT PAIN OXYCODONE TAKE 2 ORALLY DISCONT 01/14/2021 [id number] [facility] SE, 12/15/ [place] [facility] TABLETS INUED 1 CARIDAD 2020 [facility] 5MG/ACETAMI BY MOUTH (EDIT) [facility] NOPHEN THREE 325MG TAB TIMES A DAY NEEDED FOR SEVERE FOOT PAIN -LOWER TO 2 TABLETS TWICE A DAY TOLERATE D -DO NOT EXCEED 4000MG OF ACETAMIN OPHEN IN 24 HOURS FROM ALL SOURCES OXYCODONE TAKE 2 ORALLY DISCONT 12/22/2020 [id number] [facility] SE, 11/23/ [place] [facility] TABLETS INUE 1 CARIDAD 2020 [facility] 5MG/ACETAMI BY MOUTH [facility] NOPHEN TWICE A 325MG TAB DAY NEEDED FOR SEVERE FOOT PAIN -DO NOT EXCEED 4000MG OF ACETAMIN OPHEN IN 24 HOURS FROM ALL SOURCES OXYCODONE TAKE 2 ORALLY DISCONT 11/25/2020 [id number] [facility] SE, 10/26/ [place] [facility] TABLETS INUE 1 2020 [facility] 5MG/ACETAMI BY MOUTH [facility] NOPHEN TWICE A 325MG TAB DAY NEEDED FOR SEVERE FOOT PAIN -DO NOT EXCEED 4000MG OF ACETAMIN OPHEN IN 24 HOURS FROM ALL SOURCES OXYCODONE TAKE 2 ORALLY 11/09/2021 [id number] [facility] SE, 10/13/ [place] H[facility] TABLETS 2 2021 [facility] 5MG/ACETAMI BY MOUTH [facility] NOPHEN THREE 325MG TAB TIMES A DAY FOR SEVERE FOOT PAIN OXYCODONE TAKE 2 ORALLY 08/10/2021 [id number] PAR[facility] SE, 07/12/ [place] [facility] TABLETS 2 2021 [facility] 5MG/ACETAMI BY MOUTH [facility] NOPHEN THREE 325MG TAB TIMES A DAY FOR SEVERE FOOT PAIN OXYCODONE TAKE 2 ORALLY 04/16/2021 [id number] PAR[facility] SE, 04/01/ [place] [facility] TABLETS 2 2021 [facility] 5MG/ACETAMI BY MOUTH [facility] NOPHEN THREE 325MG TAB TIMES A DAY FOR SEVERE FOOT PAIN OXYCODONE TAKE 2 ORALLY 10/23/2020 [id number] PAR[facility]I SE, 09/23/ [place] [facility] TABLETS 1 2020 [facility] 5MG/ACETAMI BY MOUTH [facility] NOPHEN TWICE A 325MG TAB DAY NEEDED FOR SEVERE FOOT PAIN -DO NOT EXCEED 4000MG OF ACETAMIN OPHEN IN 24 HOURS FROM ALL SOURCES POLYVINYL INSTILL BOTH DISCONT 08/05/2021 [id number] [facility] [facility]SE, 08/05/ [place] ALCOHOL 1 DROP EYES INUED 2 2020 [facility] 1.4% IN BOTH [facility] SOLN,OPH EYES THREE TIMES A DAY NEEDED FOR DRY EYES Potassium TAKE 1 Discont 08/05/2021 [id number] DIXIE E, 06/27/ [place] Chloride PACKET inued 2 2021 [facility] 20mEq BY MOUTH [facility] Powder for EVERY solution, DAY Oral --TAKE WITH WATER-- POTASSIUM TAKE ONE ORALLY ACTIVE 07/30/2022 [id number] PAR ADISE, 08/02/ [place] CHLORIDE TABLET 2 2021 [facility] 20MEQ BY MOUTH [facility] TAB,SA EVERY (DISPERSIBL DAY E) POTASSIUM TAKE 1 ORALLY DISCONT 08/05/2021 [id number] PAR[facility]I SE, 08/05/ [place] CHLORIDE PACKET INUED 2 CARIDAD2020 [facility] 20MEQ/PKT BY MOUTH [facility] PWDR EVERY DAY --TAKE WITH WATER-- Potassium TAKE ONE Active 07/30/2022 [id number] PAR[facility] SE, 08/05/ [place] Chloride, TABLET 2 CARIDAD2021 olis Microencaps BY MOUTH [facility] ulated EVERY (K-Dur Eq.) DAY Tablet Controlled Release 20 mEq Oral Prednisolon INSTILL Discont 10/12/2021 [id number] KULE NKAMP 06/27/ [place] e Acetate 1 DROP inued 1 , 2021 olis (Pred Forte IN E [facility] Eq.) OPERATIV Suspension E EYE 1% Optical FOUR TIMES A DAY SHAKE WELL FOR POST-OP INFLAMMA TION PREDNISOLON INSTILL OPERAT DISCONT 10/12/2021 [id number] K ULENKAMP 10/12/ [place] E ACETATE 1 DROP GAVIN INUED 1 ,BRANDY E 2020 [facility] 1% SUSP,OPH IN EYE HCS OPERATIV E EYE FOUR TIMES A DAY SHAKE WELL FOR POST-OP INFLAMMA TION Pregabalin TAKE ONE Discont 07/08/2021 [id number] PARA DISE, 06/27/ [place] (Lyrica) CAPSULE inued 2 CARIDAD2021 olis Capsule BY MOUTH [facility] Conventiona THREE l 100 mg TIMES A Oral DAY FOR NERVE PAIN -REPLACE S GABAPENT IN Pregabalin TAKE ONE Discont 01/14/2021 [id number] PAR[facility] DISE, 01/09/ [place] (Lyrica) CAPSULE inued 1 CARIDAD2020 olis Capsule BY MOUTH [facility] Conventiona AT l 100 mg BEDTIME Oral FOR 5 DAYS, THEN TAKE ONE CAPSULE TWICE A DAY FOR 5 DAYS, THEN TAKE ONE CAPSULE THREE TIMES A DAY FOR NERVE PAIN -REPLACE S GABAPENT IN PREGABALIN TAKE ONE Active 01/29/2022 [id number] [facility] ISE, 12/04/ [place] (U/D) 150 CAPSULE 2 2021 olis MG ORAL CAP BY MOUTH [facility] TWICE A DAY FOR NERVE PAIN (REPLACE S PREGABAL IN 100MG) PREGABALIN TAKE ONE ORALLY DISCONT 07/08/2021 [id number] P ARADISE, 01/14/ [place] 100MG CAPSULE INUED 2 2020 [facility] CAP,ORAL BY MOUTH [facility] THREE TIMES A DAY FOR NERVE PAIN -REPLACE S GABAPENT IN PREGABALIN TAKE ONE ORALLY DISCONT 01/14/2021 [id number] P ARADISE, 12/15/ [place] 100MG CAPSULE INUE 1 2020 [facility] CAP,ORAL BY MOUTH [facility] AT BEDTIME FOR 5 DAYS, THEN TAKE ONE CAPSULE TWICE A DAY FOR 5 DAYS, THEN TAKE ONE CAPSULE THREE TIMES A DAY FOR NERVE PAIN -REPLACE S GABAPENT IN PREGABALIN TAKE ONE ORALLY SUSPEND 06/21/2022 [id number] [place]ISE, 01/15/ [place] 150MG CAPSULE ED 2 2021 [facility] CAP,ORAL BY MOUTH [facility] TWICE A DAY FOR NERVE PAIN (REPLACE S PREGABAL IN 100MG) PREGABALIN TAKE ONE ORALLY DISCONT 01/29/2022 [id number] P ARADISE, 07/29/ [place] 150MG CAPSULE INUED 2 2021 [facility] CAP,ORAL BY MOUTH [facility] TWICE A DAY FOR NERVE PAIN (REPLACE S PREGABAL IN 100MG) PROPRANOLOL TAKE ONE Active 07/30/2022 [id number] PARA DISE, 08/05/ [place] 80 MG ORAL TABLET 2 2021 olis TAB BY MOUTH [facility] TWICE A DAY FOR HAND TREMOR PROPRANOLOL TAKE ONE Discont 08/10/2021 [id number] PAR ADISE, 06/28/ [place] 80 MG ORAL TABLET inued 2 2021 [facility]is TAB BY MOUTH [facility] TWICE A DAY FOR HAND TREMOR PROPRANOLOL TAKE ONE ORALLY ACTIVE 07/30/2022 [id number] [place]ISE, 08/02/ [place] [facility] 80MG TABLET 2 2021 [facility] TAB BY MOUTH [facility] TWICE A DAY FOR HAND TREMOR PROPRANOLOL TAKE ONE ORALLY DISCONT 08/10/2021 [id number] [place]ISE, 10/24/ [place] [facility] 80MG TABLET INUED 2 2020 [facility] TAB BY MOUTH [facility] TWICE A DAY FOR HAND TREMOR rOPINIRole TAKE ONE 08/05/2021 [id number] PARA DISE, 01/11/ [place] 2 MG ORAL TABLET 1 2020 olis TAB BY MOUTH [facility] TWICE A DAY FOR RESTLESS LEG (NOTE DOSE REDUCTIO N PER PHARMACY RECOMMEN DATION) ROPINIROLE TAKE ONE ORALLY ACTIVE 12/16/2022 [id number] PA RADISE, 12/19/ [place] [facility] 2MG TAB TABLET 2 2021 [facility] BY MOUTH [facility] TWICE A DAY FOR RESTLESS LEG ROPINIROLE TAKE ONE ORALLY DISCONT 08/05/2021 [id number] [place]ISE, 09/20/ [place] [facility] 2MG TAB TABLET INUE 1 2020 [facility] BY MOUTH [facility] TWICE A DAY FOR RESTLESS LEG (NOTE DOSE REDUCTIO N PER PHARMACY RECOMMEN DATION) ROPINIROLE TAKE TWO ORALLY DISCONT 07/26/2022 [id number] [place]ISE, 07/27/ [place] H[facility] 2MG TABLETS INUED 2 2021 [facility] TAB,SA BY MOUTH [facility] EVERY DAY ROPINIROLE TAKE TWO ORALLY DISCONT 01/25/2022 [id number] P ARADISE, 01/26/ [place] [facility] 2MG TABLETS INUED 2 2020 [facility] TAB,SA BY MOUTH [facility] EVERY DAY rOPINIRole TAKE TWO Active 07/26/2022 [id number] PAR[facility] ISE, 10/24/ [place] XL 2 MG TABLETS 2 2021 olis ORAL TB24 BY MOUTH [facility] EVERY DAY rOPINIRole TAKE TWO Discont 01/25/2022 [id number] PARA DISE, 06/28/ [place] XL 2 MG TABLETS inued 2 2021 olis ORAL TB24 BY MOUTH [facility] EVERY DAY SALIVA,NICOLE SPRAY ACTIVE 07/30/2022 [id number] PARADI SE, 08/02/ [place] FICIAL 1-2 2 CARIDAD 2021 [facility] (BIOTENE SPRAYS [facility] MOUTH) IN MOUTH SPRAY,ORAL EVERY HOUR NEEDED FOR DRY MOUTH SALIVA,NICOLE SPRAY DISCONT 08/05/2021 [id number] [facility] ISE, 08/05/ [place] FICIAL 1-2 INUED 2 CARIDAD 2020 [facility] (BIOT[place] SPRAYS [facility] MOUTH) IN MOUTH SPRAY,ORAL EVERY HOUR NEEDED FOR DRY MOUTH SEMAGLUTIDE INJECT SUBCUT ACTIVE 07/30/2022 [id number] PA RADISE, 08/02/ [place] 1MG/0.75ML 1MG ANEOUS 2 2021 [facility] INJ,SOLN,PE UNDER [facility] N,3ML THE SKIN EVERY WEEK SEMAGLUTIDE INJECT SUBCUT DISCONT 08/05/2021 [id number] PA RADISE, 08/05/ [place] 1MG/0.75ML 1MG ANEOUS INUED 2 2020 [facility] INJ,SOLN,PE UNDER [facility] N,3ML THE SKIN EVERY WEEK Senna/Docus TAKE 1 Active 07/30/2022 [id number] PARADI SE, 08/05/ [place] ate Sodium TABLET 2 2021 olis (Senokot-S BY MOUTH [facility] Eq.) Tablet TWICE A 8.6-50 mg DAY Oral NEEDED FOR CONSTIPA TION STOP IF DIARRHEA OCCURS SILVASORB APPLY TO TOPICA DISCONT 04/08/2021 [id number] P ARADISE, 04/08/ [place] GEL,TOP AFFECTED LLY INUED 1 CARIDAD 2020 [facility] AREAS [facility] TOPICALL Y ONCE DAILY FOR FOOT ULCER Sodium INSTILL Discont 10/12/2021 [id number] SCHEURER, 06/28/ [place] Chloride 1 DROP inued 1 JIM A 2021 olis (Adsorbonac IN BOTH [facility] Eq.) EYES Solution 5% FOUR Optical TIMES A DAY Sodium APPLY Discont 09/21/2021 [id number] KULENKAMP 0 06/27/ [place] Chloride THIN inued 1 , BRANDY 2021 olis (Janine-128 STRIP TO E [facility] Eq.) BOTH Ointment 5% EYES AT Optical BEDTIME SODIUM APPLY BOTH DISCONT 09/21/2021 [id number] KULENKAMP 0 09/21/ [place] CHLORIDE 5% THIN EYES INUED 1 ,BRANDY E 2020 [facility] OINT,OPH STRIP TO HCS BOTH EYES AT BEDTIME SODIUM INSTILL BOTH DISCONT 10/12/2021 [id number] SCHEURER, 10/12/ [place] CHLORIDE 5% 1 DROP EYES INUED 1 JIM A 2020 [facility] A SOLN,OPH IN BOTH HCS EYES FOUR TIMES A DAY Sodium BRUSH Discont 10/06/2021 [id number] MAZHARY, / [place] Fluoride SMALL inued 2 EVER 2021 olis (PreviDent AMOUNT [facility] 5000 MOUTH Booster EVERY Eq.) Paste MORNING 1.1% Dental AND AT BEDTIME ON TOOTHBRU , BRUSH FOR 2 MINUTES. SODIUM BRUSH ORALLY DISCONT 10/06/2021 [id number] MAZHARY,A 10/06/ [place] FLUORIDE SMALL INUED 2 MASON 2020 [facility] 1.1% AMOUNT HCS TOOTHPASTE MOUTH EVERY MORNING AND AT BEDTIME ON TOOTHBRU , BRUSH FOR 2 MINUTES. SULFAMETHOX TAKE 1 ORALLY DISCONT 03/25/2021 [id number] TR AUT,ANÍBAL 02/23/ [place] AZOLE TABLET INUED 2 HARD L 2021 [facility] 800MG/TRIME BY MOUTH HCS THOPRIM TWICE A 160MG TAB DAY Sulfamethox TAKE 1 Discont 03/25/2021 [id number] TRAUT , 06/27/ [place] azole/Trime TABLET inued 2 JOSE L 2021 mark s thoprim BY MOUTH [facility] (Septra DS TWICE A Eq.) Tablet DAY 800-160 mg Oral TADALAFIL TAKE ONE ORALLY SUSPEND 07/30/2022 [id number] P ARADISE, 08/02/ [place] 20MG TAB TABLET ED 2 CARIDAD 2021 [facility] BY MOUTH [facility] AT BEDTIME TAKE AT LEAST 30 MINUTES BEFORE ANTICIPA CARLO SEXUAL ACTIVITY TADALAFIL TAKE ONE ORALLY DISCONT 08/05/2021 [id number] P ARADISE, 08/05/ [place] 20MG TAB TABLET INUED 2 2020 [facility] BY MOUTH [facility] AT BEDTIME TAKE AT LEAST 30 MINUTES BEFORE ANTICIPA CARLO SEXUAL ACTIVITY . MAXIMUM 4 DOSES FOR 30-DAY SUPPLY TAPE,MEDIPO CUT AND TOPICA DISCONT 03/23/2022 [id number] Gonzales BOONE 03/23/ [place] RE H SOFT APPLY LLY INUED 2 2021 MILLY CLOTH 4IN X TAPE [facility] 10YD 3M DIRECTED #[id number] TAPE,MEDIPO CUT AND TOPICA DISCONT 12/16/2020 [id number] Gonzales BOONE 12/15/ [facility] RE H SOFT APPLY LLY INUE 1 2019 MILLY CLOTH 4IN X TAPE [facility] 10YD 3M DIRECTED #[id number] TRAZODONE TAKE ONE ORALLY ACTIVE 11/12/2022 [id number] PAR ADISE, 11/15/ [place] HCL 50MG TABLET 2 2021 [facility] TAB BY MOUTH [facility] AT BEDTIME NEEDED FOR SLEEP TRAZODONE TAKE ONE ORALLY 02/16/2021 [id number] P ARADISE, 03/31/ [place] HCL 50MG TABLET 1 2020 [facility] TAB BY MOUTH [facility] AT BEDTIME NEEDED FOR SLEEP Trazodone TAKE ONE 02/16/2021 [id number] PARAD ISE, 11/13/ [place] Hydrochlori TABLET 1 2020 olis de (Desyrel BY MOUTH [facility] Eq.) Tablet AT 50 mg Oral BEDTIME NEEDED FOR SLEEP Triamcinolo APPLY Active 07/30/2022 [id number] DIXIE E, 08/05/ [place] ne THIN 2 2021 olis Acetonide LAYER [facility] (Triamcinol TOPICALL one Y TWICE Acetonide A DAY Eq.) Cream FOR .1% Topical RASH/ITC DYLONAV OID FACE,TAJ IN\T\ARM PITS *FOR EXTERNAL USE ONLY Triamcinolo APPLY Discont 10/18/2021 [id number] PARADI SE, 06/28/ [place] ne MODERATE inued 2 CARIDAD2021 olis Acetonide AMOUNT [facility] 0.001mg/mg, TWICE A Ointment, DAY Topical NEEDED FOR ITCHING AVOID FACE,TAJ IN\T\ARM PITS *FOR EXTERNAL USE ONLY TRIAMCINOLO APPLY TOPICA ACTIVE 07/30/2022 [id number] PARADI SE, 08/02/ [place] NE THIN LLY 2 CARIDAD 2021 [facility] ACETONIDE LAYER [facility] 0.1% TOPICALL CREAM,TOP Y TWICE A DAY FOR RASH/ITC DYLONAV OID FACE,TAJ IN and ARMPITS *FOR EXTERNAL USE ONLY TRIAMCINOLO APPLY TOPICA DISCONT 10/18/2021 [id number] P ARADISE, 10/17/ [place] NE MODERATE LLY INUED 2 CARIDAD2020 [facility] ACETONIDE AMOUNT [facility] 0.1% TWICE A OINT,TOP DAY NEEDED FOR ITCHING AVOID FACE,TAJ IN and ARMPITS *FOR EXTERNAL USE ONLY VANICREAM APPLY TOPICA ACTIVE 07/12/2022 [id number] PARADISE , 07/13/ [place] THIN LLY 2 2021 [facility] LAYER [facility] TOPICALL Y EVERY DAY FOR DRY SKIN, IDEALLY WITHIN 3 MINUTES AFTER BATH OR SHOWER. FOR DRY SKIN, IDEALLY WITHIN 3 MINUTES AFTER BATH OR SHOWER. VANICREAM APPLY TOPICA DISCONT 07/03/2021 [id number] PARADI SE, 07/02/ [place] THIN LLY INUED 2 CARIDAD2020 [facility] LAYER [facility] TOPICALL Y EVERY DAY FOR DRY SKIN APPLY TO FEET AND LEGS VASHE WOUND SATURATE TOPICA DISCONT 02/05/2022 [id number] PONCHO,BEV 02/04/ [place] THERAPY GAUZE LLY INUED 2 TTANY 2020 [facility] SOLN,TOP WITH [facility] SOLUTION AND USE DIRECTED VITAMIN E TAKE ONE ORALLY DISCONT 09/08/2021 [id number] PA RADISE, 09/08/ [place] 180MG CAPSULE INUED 2 CARIDAD 2020 [facility] (400UNIT) BY MOUTH [facility] CAP EVERY DAY Allergies, Adverse Reactions, Alerts Combined list of allergies from Department of Defense and Veterans Affairs facilities. It does not include entries that were removed or entered in error. Substance Category Reaction Severity Reaction Status Date Comments S ource type Reported RIVAROXABAN Drug Liver Drug active [place] allergy enzymes allergy 8 lis [facility] abnormal RIVAROXABAN Propensity Liver MILD Propensity active [place] to adverse enzymes to adverse 8 LI [facility] reactions abnormal reactions HCS to drug to drug (finding) (finding) Immunizations Combined list of available immunizations from the Department of Defense and Veterans Affairs facilities. Immunization Series Date Administered Site Reaction Lot CVX Drug St atus Comments Source Given By Number Code Food Scientist COVID-19 4 complet PFR; [place] ([place]), 2021 ed [id number]; OL IS [facility] MRNA, LNP-S, 02 HCS PF, 30 2 MCG/0.3 ML DOSE, SAIRA-SUCROSE (AGES 12+ YEARS) COVID-19 3 complet PFR; [place] ([place]), 2020 ed [id number]; OL IS IN MRNA, LNP-S, 02 HCS PF, 30 1 MCG/0.3 ML DOSE INFLUENZA, complet [place] INJECTABLE, 2020 ed OL IS IN QUADRIVALENT, HCS PRESERVATIVE FREE COVID-19 1 complet PFR; [place] ([place]), 2020 ed [id number]; OL IS IN MRNA, LNP-S, 02 HCS PF, 30 1 MCG/0.3 ML DOSE COVID-19 1 complet PFR; [place] ([place]), 2020 ed [id number]; OL IS [place] MRNA, LNP-S, 02 HCS PF, 30 1 MCG/0.3 ML DOSE INFLUENZA, complet Partne r:C [place] HIGH-DOSE, 2019 ed CN2.Admin [facility] QUADRIVALENT istered by:[facility] [phone] .Address: [address] [place] [address].[facility] ILLE.IL.5 [phone] Dosage: ML 0.7 INFLUENZA, complet [facility] UNSPECIFIED 2019 ed PH [facility] FORMULATION Y INFLUENZA, complet [place] SEASONAL, 2018 ed OLIS IN INJECTABLE, HC S PRESERVATIVE FREE ZOSTER 2 complet [place] RECOMBINANT 2018 ed OL IS IN HCS ZOSTER 1 complet [place] RECOMBINANT 2017 ed OL IS [facility] INFLUENZA, complet Partne r: [place] INJECTABLE, 2018 ed [facility] QUADRIVALENT, Pharma cy. PRESERVATIVE Adminis te FREE red by: [facility] Clinician (NPI=Not Provided) . Partner 9 Lot#: [id number] Mfr: [employer] PNEUMOCOCCAL complet 000 [place] POLYSACCHARID 2016 ed [facility] E PPV23 HCS INFLUENZA, complet [place] SEASONAL, 2017 ed [facility] INJECTABLE, PRESERVATIVE FREE INFLUENZA, complet [place] HIGH DOSE 2016 [facility] INFLU[facility]ZA, complet [place] SEASONAL, 2016 ed [facility] INJECTABLE, PRESERVATIVE FREE PNEUMOCOCCAL complet [place] CONJUGATE PCV 2016 ed [facility] 13 INFLUENZA, complet [place] SEASONAL, 2014 ed [facility] INJECTABLE INFLUENZA, complet [place] UNSPECIFIED 2014 ed [facility] FORMULATION TETANUS/DIPTH complet [place] E[place]/PERTUSSI 2014 ed [place], S (TDAP) [place] [facility] (HISTORICAL) INFLUENZA, complet [place] UNSPECIFIED 2013 ed [facility] FORMULATION INFLUENZA, complet [place] UNSPECIFIED 2012 ed [facility] FORMULATION INFLUENZA, complet [place] UNSPECIFIED 2012 ed [facility] FORMULATION INFLUENZA, 88 complet Norvar tis [place] UNSPECIFIED 2011 ed [id number] [place], FORMULATION 07/2012 A [facility] INFLUENZA, complet sanofi pas [place] UNSPECIFIED 2010 ed teur [facility] FOR[facility] [id number] 08/19/11 TD(ADULT) 07/02/ NONE 139 complet Dt 0.5c cs [place] UNSPECIFIED 2010 ed IM LEFT [facility] FORMULATION deltoid. Lot # [id number]. Vaccine informati on sheet given to patient. INFLUENZA, complet [place] UNSPECIFIED 2009 ed OL IS [facility] FORM[facility] HC S INFLUENZA, 88 complet CSL [place] UNSPECIFIED 2008 ed [employer] dimitris BAÑUELOS, FORMULATION ies; [place] [facility] [id number] ; Exp: 0 ZOSTER LIVE complet v [...] complet [place] (HISTORICAL) 1996 ed O LIS IN HCS INFLUENZA 12/09/ STAFF,NURSE 88 complet [place] (HISTORICAL) 1995 ed O LIS [facility] Results Combined list of recent chemistry, hematology and other laboratory results from [facility] [employer] [facility], ranging from 15 months to all on record, depending upon the facility. Order Results Value Reference Date Interpretation Specimen Commen ts Source Name Range DRUG BARBITURAT Negative 07/29 Specimen Typ e: URINE [place] SCREEN Comment: Presum ptive Positive by screen, results not confirmed. IS [facility] PANEL,UR [PRESENCE] Ordering Pr ovider: PARADISE,CARIDAD STUART INE IN URINE Report Release d Date/Time: Jul 29, 2021 01:06 PM BY SCREEN Reporting Lab : [facility] [address] [place] [address] Performing Lab: [facility] [address] [place] [phone] DRUG AMPHETAMIN Negative 07/29 Specimen Typ e: URINE [place] SCREEN ES Comment: Presum ptive Positive by screen, results not confirmed. IS [facility] PANEL,UR [PRESENCE] Ordering Pr ovider: PARADISE,CARIDAD STUART INE IN URINE Report Release d Date/Time: Jul 29, 2021 01:06 PM Reporting Lab: [facility] [address] [place] [phone] Performing Lab: [facility] [address] [place] [address] DRUG COCAINE Negative 07/29 Specimen Type: URINE [place] SCREEN [PRESENCE] Comment: Pre sumptive Positive by screen, results not confirmed. IS [facility] PANEL,UR IN URINE Ordering Prov ider: PARADISE,CARIDAD STUATR INE Report Released Date/Time: Jul 29, 2021 01:06 PM Reporting Lab: [facility] [place] [address] Performing Lab: [facility] [address] [place] [address] DRUG BENZODIAZE Negative 07/29 Specimen Typ e: URINE [place] SCREEN PINE Comment: Presum ptive Positive by screen, results not confirmed. IS [facility] PANEL,UR [PRESENCE] Ordering Pr ovider: PARADISE,CARIDAD STUART INE IN URINE Report Release d Date/Time: Jul 29, 2021 01:06 PM BY SCREEN Reporting Lab : [facility] [address] [place] [address] Performing Lab: [facility] [address] [place] [address] DRUG CANNABINOI Negative 07/29 Specimen Typ e: URINE [place] SCREEN DS Comment: Presum ptive Positive by screen, results not confirmed. IS [facility] PANEL,UR [PRESENCE] Ordering Pr ovider: PARADISE,CARIDAD STUART INE IN URINE Report Release d Date/Time: Jul 29, 2021 01:06 PM BY SCREEN Reporting Lab : [facility] METHOD [place] [address] Performing Lab: [facility] [address] [place] [address] DRUG METHADONE Negative 07/29 Specimen Type : URINE [place] SCREEN [PRESENCE] /2021 Comment: Pre sumptive Positive by screen, results not confirmed. [facility] PANEL,UR IN URINE Ordering Prov ider: CARIDAD DENNIS Report Released Date/Time: Jul 29, 2021 01:06 PM Reporting Lab: [facility] [address] [place] [address] Performing Lab: [facility] [place] [address] DRUG OPIATES Negative 07/29 Specimen Type: URINE [place] SCREEN [PRESENCE] Comment: Pre sumptive Positive by screen, results not confirmed. [facility] PANEL,UR IN URINE Ordering Prov ider: CARIDAD DENNIS BY SCREEN Report Releas ed Date/Time: Jul 29, 2021 01:06 PM METHOD Reporting Lab: [facility] [place] [address] Performing Lab: [facility] [place] [address] DRUG PHENCYCLID Negative 07/29 Specimen Typ e: URINE [place] SCREEN Comment: Presum ptive Positive by screen, results not confirmed. [facility] PANEL,UR [PRESENCE] Ordering Pr ovider: CARIDAD DENNIS IN URINE Report Release d Date/Time: Jul 29, 2021 01:06 PM Reporting Lab: [facility] [address] [place] [address] Performing Lab: [facility] [address] [place] [address] DRUG ETHYLENE Negative 07/29 Specimen Type: URINE [place] SCREEN GLYCOL Comment: Presum ptive Positive by screen, results not confirmed. IS [facility] PANEL,UR [MASS/VOLU Ordering Pr ovider: CARIDAD DENNIS ME] IN Report Released Date/Time: Jul 29, 2021 01:06 PM URINE Reporting Lab: [facility] [place] [address] Performing Lab: [facility] [address] [place] [address] DRUG CREATININE 64.7 20.0 07/29 Specimen Type : URINE [place] SCREEN [MASS/VOLU /2021 Comment: Pre sumptive Positive by screen, results not confirmed. IS IN [facility] PANEL,UR ME] IN Ordering Provi dutch: CARIDAD DENNIS URINE Report Released Date/Time: Jul 29, 2021 01:06 PM Reporting Lab: [facility] [place] [address] Performing Lab: [facility] [address] [place] [address] DRUG OXYCODONE POSITIVE 06/10 H Specimen Type : URINE [place] SCREEN [PRESENCE] /2021 Comment: Pre sumptive Positive by screen, results not confirmed. [facility] PANEL,UR IN URINE Ordering Prov ider: CARIDAD DENNIS INE BY SCREEN Report Releas ed Date/Time: Jul 29, 2021 01:06 PM METHOD Reporting Lab: [facility] [place] [address] Performing Lab: [facility] [address] [place] [address] DRUG BUPRENORPH Negative 07/29 Specimen Typ e: URINE [place] SCREEN INE+NORBUP /2021 Comment: Pre sumptive Positive by screen, results not confirmed. IS [facility] PANEL,UR RENORPHINE Ordering Pr ovider: CARIDAD DENNIS INE [PRESENCE] Report Relea sed Date/Time: Jul 29, 2021 01:06 PM IN URINE Reporting Lab: [facility] [place] [address] Performing Lab: [facility] [place] [address] DRUG TRAMADOL Negative 07/29 Specimen Type: URINE [place] SCREEN CUTOFF /2021 Comment: Presum ptive Positive by screen, results not confirmed. IS [facility] PANEL,UR [MASS/VOLU Ordering Pr ovider: CARIDAD DENNIS INE ME] IN Report Released Date/Time: Jul 29, 2021 01:06 PM URINE FOR Reporting Lab : [facility] SCREEN [place] [address] METHOD Performing Lab: [facility] [place] [address] DRUG FENTANYL Negative 07/29 Specimen Type: URINE [place] SCREEN [PRESENCE] /2021 Comment: Pre sumptive Positive by screen, results not confirmed. IS IN HCS PANEL,UR IN URINE Ordering Prov ider: CARIDAD DENNIS Report Released Date/Time: Jul 29, 2021 01:06 PM Reporting Lab: [facility] [place] [address] Performing Lab: [facility] [place] [address] ALT/SGPT ALANINE 15 <55 - 55 07/29 Specimen Type: PLASMA [place] AMINOTRANS /2021 No comment en tered. IS [facility] FERASE Ordering Provid er: CARIDAD DENNIS [ENZYMATIC Report Relea sed Date/Time: Feb 28, 2021 06:22 PM ACTIVITY/V Reporting La b: [facility] OLUME] IN [address] [employer] [address] SERUM OR Performing Lab : [facility] PLASMA [address] [place] [employer] [address] AST/SGOT ASPARTATE 13 <34 - 34 07/29 Specimen Typ e: PLASMA [place] AMINOTRANS /2021 No comment en tered. IS [facility] FERASE Ordering Provid er: CARIDAD DENNIS [ENZYMATIC Report Relea sed Date/Time: Feb 28, 2021 06:22 PM ACTIVITY/V Reporting La b: [facility] OLUME] IN [facility] [address] SERUM OR Performing Lab : [facility] PLASMA [address] [place] [employer] [address] BASIC CREATININE 0.7 0.7 - 1.2 07/29 Specimen Ty pe: PLASMA [place] METABOLI [MASS/VOLU /2021 No comment e ntered. IS [facility] C ME] IN Ordering Provid er: CARIDAD DENNIS PANEL+MG SERUM OR Report Releas ed Date/Time: Feb 28, 2021 06:22 PM PLASMA Reporting Lab: [facility] [address] [place] [employer] [address] Performing Lab: [facility] [address] [place] [employer] [address] BASIC UREA 12 8 - 26 07/29 Specimen Type: P LASMA [place] METABOLI NITROGEN /2021 No comment ent ered. IS [facility] C [MASS/VOLU Ordering Pro vider: CARIDAD DENNIS PANEL+MG ME] IN Report Release d Date/Time: Feb 28, 2021 06:22 PM SERUM OR Reporting Lab: [facility] PLASMA [address] [place] [employer] [address] Performing Lab: [facility] [address] [place] [employer] [address] BASIC GLUCOSE 170 74 - 100 07/29 H Specimen Type: PLASMA [place] METABOLI [MASS/VOLU /2021 No comment e ntered. IS [facility] C ME] IN Ordering Provid er: PARADISE,CARIDAD STUART PANEL+MG SERUM OR Report Releas ed Date/Time: Feb 28, 2021 06:22 PM PLASMA Reporting Lab: [facility] [place] [address] Performing Lab: [facility] [address] [place] [employer] [address] BASIC SODIUM 141 136 - 145 07/29 Specimen Type: PLASMA [place] METABOLI [MOLES/VOL /2021 No comment e ntered. IS [facility] C UME] IN Ordering Provid er: PARADISE,CARIDAD STUART PANEL+MG SERUM OR Report Releas ed Date/Time: Feb 28, 2021 06:22 PM PLASMA Reporting Lab: [facility] [address] [place] [employer] [address] Performing Lab: [facility] [address] [place] [employer] [address] BASIC POTASSIUM 3.9 3.5 - 5.1 07/29 Specimen Typ e: PLASMA [place] METABOLI [MOLES/VOL /2021 No comment e ntered. IS [facility] C UME] IN Ordering Provid er: PARADISE,CARIDAD STUART PANEL+MG SERUM OR Report Releas ed Date/Time: Feb 28, 2021 06:22 PM PLASMA Reporting Lab: [facility] [address] [place] [employer] [address] Performing Lab: [facility] [address] [place] [employer] [address] BASIC CHLORIDE 105 98 - 107 07/29 Specimen Type: PLASMA [place] METABOLI [MOLES/VOL /2021 No comment e ntered. IS [facility] C UME] IN Ordering Provid er: PARADISE,CARIDAD STUART PANEL+MG SERUM OR Report Releas ed Date/Time: Feb 28, 2021 06:22 PM PLASMA Reporting Lab: [facility] [address] [place] [employer] [address] Performing Lab: [facility] [address] [place] [employer] [address] BASIC CARBON 28 22 - 29 07/29 Specimen Type: P LASMA [place] METABOLI DIOXIDE, No comment ent ered. IS [facility] C TOTAL Ordering Provid er: PARADISE,CARIDAD STUART PANEL+MG [MOLES/VOL Report Rele ased Date/Time: Feb 28, 2021 06:22 PM UME] IN Reporting Lab: [facility] SERUM OR [address] [place] [address] PLASMA Performing Lab: [facility] [address] [place] [address] BASIC CALCIUM 9.1 8.4 - 10.2 07/29 Specimen Type : PLASMA [place] METABOLI [MASS/VOLU /2021 No comment e ntered. IS [facility] C ME] IN Ordering Provid er: CARIDAD DENNIS PANEL+MG SERUM OR Report Releas ed Date/Time: Feb 28, 2021 06:22 PM PLASMA Reporting Lab: [facility] [address] [place] [address] Performing Lab: [facility] [address] [place] [address] BASIC MAGNESIUM 2.3 1.6 - 2.6 07/29 Specimen Typ e: PLASMA [place] METABOLI [MASS/VOLU /2021 No comment e ntered. IS [facility] C ME] IN Ordering Provid er: CARIDAD DENNIS PANEL+MG SERUM OR Report Releas ed Date/Time: Feb 28, 2021 06:22 PM PLASMA Reporting Lab: [facility] [address] [place] [address] Performing Lab: [facility] [address] [place] [address] BASIC ANION GAP 8 5 - 15 07/29 Specimen Type: PLASMA [place] METABOLI IN SERUM /2021 No comment ent ered. IS [facility] C OR PLASMA Ordering Prov ider: CARIDAD DENNIS PANEL+MG Report Release d Date/Time: Feb 28, 2021 06:22 PM Reporting Lab: [facility] [address] [place] [address] Performing Lab: [facility] [place] [address] BASIC CREAT >90 60 07/29 Specimen Type: P LASMA [place] METABOLI EGFR(CKD-E /2021 No comment e ntered. IS [facility] C PI) Ordering Provid er: CARIDAD DENNIS PANEL+MG Report Release d Date/Time: Feb 28, 2021 06:22 PM Reporting Lab: [facility] [address] [place] [address] Performing Lab: [facility] [place] [address] CBC LEUKOCYTES 6.29 4.0 - 11.0 06/10 Specimen T ype: BLOOD [place] [#/VOLUME] /2021 No comment en tered. IS IN HCS IN BLOOD Ordering Provi dutch: CARIDAD DENNIS BY Report Released Date/Time: Feb 28, 2021 06:22 PM AUTOMATED Reporting Lab : [facility] COUNT [address] [place] [address] Performing Lab: [facility] [address] [place] [address] CBC ERYTHROCYT 4.82 4.6 - 6.2 07/29 Specimen Ty pe: BLOOD [place] ES /2021 No comment enter ed. [facility] [#/VOLUME] Ordering Pro vider: CARIDAD DENNIS IN BLOOD Report Release d Date/Time: Feb 28, 2021 06:22 PM BY Reporting Lab: [facility] AUTOMATED [address] [employer] [address] COUNT Performing Lab: [facility] [place] [address] CBC HEMOGLOBIN 13.3 13.5 - 07/29 L Specimen Type : BLOOD [place] [MASS/VOLU 17.9 /2021 No comment en tered. IS [facility] ME] IN Ordering Provid er: CARIDAD DENNIS BLOOD Report Released Date/Time: Feb 28, 2021 06:22 PM Reporting Lab: [facility] [place] [address] Performing Lab: [facility] [place] [address] CBC HEMATOCRIT 42.4 41 - 54 07/29 Specimen Type : BLOOD [place] [VOLUME /2021 No comment enter ed. IS IN HCS FRACTION] Ordering Prov ider: CARIDAD DENNIS OF BLOOD Report Release d Date/Time: Feb 28, 2021 06:22 PM BY Reporting Lab: [facility] AUTOMATED [address] [facility] [employer] [address] COUNT Performing Lab: [facility] [address] [place] [employer] [address] CBC MCV 88.0 80 - 100 07/29 Specimen Type: BLOOD [place] [ENTITIC /2021 No comment ente red. [facility] VOLUME] BY Ordering Pro vider: CARIDAD DENNIS AUTOMATED Report Releas ed Date/Time: Feb 28, 2021 06:22 PM COUNT Reporting Lab: [facility] [place] [address] Performing Lab: [facility] [address] [place] [address] CBC MCH 27.6 27 - 33 07/29 Specimen Type: B LOOD [place] [ENTITIC /2021 No comment ente red. IS [facility] MASS] BY Ordering Provi dutch: CARIDAD DENNIS AUTOMATED Report Releas ed Date/Time: Feb 28, 2021 06:22 PM COUNT Reporting Lab: [facility] [address] [place] [address] Performing Lab: [facility] [address] [place] [address] CBC MCHC 31.4 32.0 - 0610 L Specimen Type: B LOOD [place] [MASS/VOLU 37.5 /2021 No comment en tered. IS [facility] ME] BY Ordering Provid er: CARIDAD DENNIS AUTOMATED Report Releas ed Date/Time: Feb 28, 2021 06:22 PM COUNT Reporting Lab: [facility] [place] [address] Performing Lab: [facility] [place] [address] CBC PLATELETS 286 150 - 400 07/29 Specimen Typ e: BLOOD [place] [#/VOLUME] /2021 No comment en tered. IS [facility] IN BLOOD Ordering Provi dutch: CARIDAD DENNIS BY Report Released Date/Time: Feb 28, 2021 06:22 PM AUTOMATED Reporting Lab : [facility] COUNT [place] [address] Performing Lab: [facility] [place] [address] CBC PLATELET 9.5 7.4 - 10.4 07/29 Specimen Typ e: BLOOD [place] MEAN /2021 No comment enter ed. IS [facility] VOLUME Ordering Provid er: CARIDAD DENNIS [ENTITIC Report Release d Date/Time: Feb 28, 2021 06:22 PM VOLUME] IN Reporting La b: [facility] BLOOD BY [address] [employer] [address] AUTOMATED Performing La b: [facility] COUNT [place] [address] CBC ERYTHROCYT 16.8 11.5 - 0610 H Specimen Type : BLOOD [place] E 14.5 /2021 No comment enter ed. IS [facility] DISTRIBUTI Ordering Pro vider: CARIDAD DENNIS ON WIDTH Report Release d Date/Time: Feb 28, 2021 06:22 PM [RATIO] BY Reporting La b: [facility] AUTOMATED [facility] [address] COUNT Performing Lab: [facility] [address] [place] [employer] [address] HEMOGLOB HEMOGLOBIN 7.0 4.0 - 6.0 06/10 H Specimen T ype: BLOOD [place] IN A1C A1C/HEMOGL /2021 No comment en tered. IS [facility] OBIN.TOTAL Ordering Pro vider: CARIDAD DENNIS IN BLOOD Report Release d Date/Time: Feb 28, 2021 06:22 PM Reporting Lab: [facility] [address] [place] [employer] [address] Performing Lab: [facility] [address] [place] [employer] [address] COVID-19 SARS-COV-2 Not 04/28 Specimen Typ e: NASOPHARYNGEAL [place] AND FLU (COVID-19) Detected /2021 No comment e ntered. IS [facility] SCRN RNA Ordering Provid er: CARIDAD DENNIS PANEL [PRESENCE] Report Relea sed Date/Time: Apr 28, 2021 02:10 PM (FLUVID) IN Reporting Lab: [facility] RESPIRATOR [facility] [address] Y SPECIMEN Performing L ab: [facility] BY [place] [address] [place] [employer] [address] WITH PROBE DETECTION COVID-19 INFLUENZA Not 04/28 Specimen Type : NASOPHARYNGEAL [place] AND FLU VIRUS A Detected /2021 No comment ente red. IS [facility] SCRN RNA Ordering Provid er: CARIDAD EDNNIS PANEL [PRESENCE] Report Relea sed Date/Time: Apr 28, 2021 02:10 PM (FLUVID) IN Reporting Lab: [facility] RESPIRATOR [facility] [address] Y SPECIMEN Performing L ab: [facility] BY [place] [address] [place] [employer] [address] WITH PROBE DETECTION COVID-19 INFLUENZA Not 04/28 Specimen Type : NASOPHARYNGEAL [place] AND FLU VIRUS B Detected /2021 No comment ente red. IS [facility] SCRN RNA Ordering Provid er: CARIDAD DENNIS PANEL [PRESENCE] Report Relea sed Date/Time: Apr 28, 2021 02:10 PM (FLUVID) IN Reporting Lab: [facility] RESPIRATOR [facility] [address] Y SPECIMEN Performing L ab: [facility] BY [place] [address] WITH PROBE DETECTION CBC LEUKOCYTES 4.06 4.0 - 11.0 04/28 Specimen T ype: BLOOD [place] [#/VOLUME] /2021 No comment en tered. IS [facility] IN BLOOD Ordering Provi dutch: CARIDAD DENNIS BY Report Released Date/Time: Apr 25, 2021 12:00 PM AUTOMATED Reporting Lab : [facility] COUNT [place] [address] Performing Lab: [facility] [place] [address] CBC ERYTHROCYT 5.41 4.6 - 6.2 04/28 Specimen Ty pe: BLOOD [place] ES /2021 No comment enter ed. IS [facility] [#/VOLUME] Ordering Pro vider: CARIDAD DENNIS IN BLOOD Report Release d Date/Time: Apr 25, 2021 12:00 PM BY Reporting Lab: [facility] AUTOMATED [facility] [address] COUNT Performing Lab: [facility] [address] [place] [employer] [address] CBC HEMOGLOBIN 14.8 13.5 - 04/28 Specimen Type : BLOOD [place] [MASS/VOLU 17.9 /2021 No comment en tered. IS [facility] ME] IN Ordering Provid er: CARIDAD DENNIS BLOOD Report Released Date/Time: Apr 25, 2021 12:00 PM Reporting Lab: [facility] [place] [address] Performing Lab: [facility] [place] [address] CBC HEMATOCRIT 47.0 41 - 54 04/28 Specimen Type : BLOOD [place] [VOLUME /2021 No comment enter ed. IS [facility] FRACTION] Ordering Prov ider: CARIDAD DENNIS OF BLOOD Report Release d Date/Time: Apr 25, 2021 12:00 PM BY Reporting Lab: [facility] AUTOMATED [address] [facility] [address] [employer] [address] COUNT Performing Lab: [facility] [address] [place] [employer] [address] CBC MCV 86.9 80 - 100 04/28 Specimen Type: BLOOD [place] [ENTITIC /2021 No comment ente red. IS [facility] VOLUME] BY Ordering Pro vider: CARIDAD DENNIS AUTOMATED Report Releas ed Date/Time: Apr 25, 2021 12:00 PM COUNT Reporting Lab: [facility] [address] [place] [address] Performing Lab: [facility] [address] [place] [address] CBC MCH 27.4 27 - 33 04/28 Specimen Type: B LOOD [place] [ENTITIC /2021 No comment ente red. IS IN HCS MASS] BY Ordering Provi dutch: CARIDAD DENNIS AUTOMATED Report Releas ed Date/Time: Apr 25, 2021 12:00 PM COUNT Reporting Lab: [facility] [address] [place] [address] Performing Lab: [facility] [address] [place] [address] CBC MCHC 31.5 32.0 - 03 L Specimen Type: B LOOD [place] [MASS/VOLU 37.5 /2021 No comment en tered. IS [facility] ME] BY Ordering Provid er: CARIDAD DENNIS AUTOMATED Report Releas ed Date/Time: Apr 25, 2021 12:00 PM COUNT Reporting Lab: [facility] [place] [address] Performing Lab: [facility] [place] [address] CBC PLATELETS 263 150 - 400 04/28 Specimen Typ e: BLOOD [place] [#/VOLUME] /2021 No comment en tered. IS [facility] IN BLOOD Ordering Provi dutch: CARIDAD DENNIS BY Report Released Date/Time: Apr 25, 2021 12:00 PM AUTOMATED Reporting Lab : [facility] COUNT [place] [address] Performing Lab: [facility] [place] [address] CBC PLATELET 9.2 7.4 - 10.4 04/28 Specimen Typ e: BLOOD [place] MEAN /2021 No comment enter ed. IS [facility] VOLUME Ordering Provid er: CARIDAD DENNIS [ENTITIC Report Release d Date/Time: Apr 25, 2021 12:00 PM VOLUME] IN Reporting La b: [facility] BLOOD BY [address] [employer] [address] AUTOMATED Performing La b: [facility] COUNT [address] [place] [address] CBC ERYTHROCYT 14.2 11.5 - 04/28 Specimen Type : BLOOD [place] E 14.5 /2021 No comment enter ed. IS [facility] DISTRIBUTI Ordering Pro vider: CARIDAD DENNIS ON WIDTH Report Release d Date/Time: Apr 25, 2021 12:00 PM [RATIO] BY Reporting La b: [facility] AUTOMATED [address] [employer] [address] COUNT Performing Lab: [facility] [address] [place] [employer] [address] HEMOGLOB HEMOGLOBIN 8.0 4.0 - 6.0 03/10 H Specimen T ype: BLOOD [place] IN A1C A1C/HEMOGL /2021 No comment en tered. IS [facility] OBIN.TOTAL Ordering Pro vider: CARIDAD DENNIS IN BLOOD Report Release d Date/Time: Apr 25, 2021 12:00 PM Reporting Lab: [facility] [address] [place] [employer] [address] Performing Lab: [facility] [address] [place] [employer] [address] TSH THYROTROPI 0.73 0.35 - 0310 Specimen Type : PLASMA [place] W/REFLEX N 4.94 No comment ente red. IS [facility] TO FREE [UNITS/VOL Ordering Pro vider: CARIDAD DENNIS T4 UME] IN Report Released Date/Time: Apr 25, 2021 12:00 PM SERUM OR Reporting Lab: [facility] PLASMA [address] [place] [employer] [address] Performing Lab: [facility] [address] [place] [employer] [address] Vital Signs Combined list of inpatient and outpatient Vital Signs from Department of Defense and Veterans Affairs, ranging from 12 months to all on record, depending upon the facility. Vital Sign Value Date Comments Source SYSTOLIC BLOOD PRESSURE 171 12/15/2021 10:36:44 [facility] DIASTOLIC BLOOD PRESSURE 90 12/15/2021 10:36:44 [facility] PULSE OXIMETRY 96% 12/15/2021 10:36:44 [place] [facility] WEIGHT 245 12/15/2021 10:36:44 [place] [facility] BMI 32kg/m2 12/15/2021 10:36:44 [place] [facility] PAIN 0 12/15/2021 10:36:44 [place] [facility] TEMPERATURE 98.1 12/15/2021 10:36:44 [place] [facility] PULSE 66 12/15/2021 10:36:44 [place] [facility] RESPIRATION 18 12/15/2021 10:36:44 [place] [facility] [facility] SYSTOLIC BLOOD PRESSURE 161 09/04/2021 19:34:00 [place] DIASTOLIC BLOOD PRESSURE 75 09/04/2021 19:34:00 [facility] PULSE OXIMETRY 96% 09/04/2021 19:34:00 [place] [facility] PAIN 8 09/04/2021 19:34:00 [place] [facility] PULSE 73 09/04/2021 19:34:00 [place] [facility] RESPIRATION 16 09/04/2021 19:34:00 [place] [facility] SYSTOLIC BLOOD PRESSURE 145 08/28/2021 13:02:00 [facility] DIASTOLIC BLOOD PRESSURE 85 08/28/2021 13:02:00 [facility] PULSE OXIMETRY 96% 08/28/2021 13:02:00 [place] [...] HCS DIASTOLIC BLOOD PRESSURE 82 04/25/2021 11:00:37 [facility] PULSE OXIMETRY 96% 04/25/2021 11:00:37 [facility]ERR[facility] AMAURY [facility] WEIGHT 04/25/2021 11:00:37 [place] [facility] PAIN 5 04/25/2021 11:00:37 [place] [facility] HEIGHT 04/25/2021 11:00:37 [place] [facility] TEMPERATURE 97.8 04/25/2021 11:00:37 [place] [facility] PULSE 76 04/25/2021 11:00:37 [place] [facility] RESPIRATION 18 04/25/2021 11:00:37 [place] [facility] Encounters Combined list of: 1) Encounters from [facility] facilities going back up to the last 18 months. 2) Encounters from the Department of Defense facilities going back up to 280 months. Location Location Encounter Encounter Reason Attending ADM CA Stat us Disposition Source Details Type Number For Provider Date Date Visit OFFICE O/P 27446-3.61 Diagnos ROMEL,MADELINE 06/22 [place] MOD [id number] is: LIE [facility] 30-39 MIN ICD-10- HCS CM I50.20 Unspeci fied systoli c (conges tive) heart failure
wi th Provide r Comment s: systoli c (conges tive) heart failure Outpatient [id number] RHONDA CAMEJO 06/22 [place] Encounter [id number] [facility] THERAPEUTI 31893-3.61 Diagnos LEVIN 06/23 [place] [id number] is: ,JAVIER [facility] IN EXERCISES ICD-10- HCS CM Z74.09 Other reduced mobilit y
w ith Provide r Comment s: Reduced Mobilit y ORTHOPEDIC 53535-7.61 Diagnos CUONG 06/25 [place] [id number] is: ALDA [facility] MODIFICA ICD-10- HCS NOS CM M14.671 Charcot 's joint, right ankle and foot
with Provide r Comment s: Charcot 's Joint, right Ankle and Foot HC PRO 88452-9.61 Teodora Tellez 06/30 [place] PHONE CALL [id number] is: AMI L /2020 [facility] 21-30 MIN ICD-10- HCS CM Z71.89 Other specifi ed director of counseling ing<br/ >with Provide r Comment s: Other specifi ed Mapping Analyst ing Outpatient [id number] 07/02 [place] Encounter [id number] /2020 [facility] GAIT 97579-0.61 Diagnos LEVIN 07/02 [place] [facility]INING [id number] is: ,JAVIER J /2020 [facility] THERAPY ICD-10- HCS CM R26.89 Other abnorma lities of gait and mobilit y
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
with Provide r Comment s: Age-rel ated nuclear catarac t, bilater al OFFICE O/P 44924-1.61 Diagnos AREVALO,APR 23 [place] EST MOD 8.42922720 is: XUAN [facility] 30-39 MIN ICD-10- HCS CM H25.13 Age-rel ated nuclear catarac t, bilater al
with Provide r Comment s: Age-rel ated nuclear catarac t, bilater al Outpatient 31454-5.61 07/09 [place] Encounter [id number] /2020 [facility] 64292-5.61 07/09 [place] Encounter [id number] /2020 [facility] Out[facility] 46226-8.61 07/09 [place] Encounter [id number] /2020 [facility] OFF[facility] O/P 30635-5.61 Diagnos 07/09 [place] EST 8.35711136 is: /2020 [facility] MIN[facility] ICD-10- HCS PROB CM U07.1 COVID-1 9
w ith Provide r Comment s: 2018- oV acute respira tory disease Outpatient 17804-5.61 07/09 [place] Encounter [id number] /2020 [facility] HC PRO 63635-9.61 Diagnos Teodora FOOTE 07/09 [place] PHONE CALL 8.54586246 is: AMI L [facility] 5-10 MIN ICD-10- HCS CM Z71.89 Other specifi ed director of counseling ing<br/ >with Provide r Comment s: Other specifi ed Mapping Analyst ing OFFICE O/P 34182-6.61 Diagnos LEONARD MCDONALD 07/09 [place] EST LOW 8.54033399 is: H [facility] 20-29 MIN ICD-10- HCS CM Z01.818 Encount er for other preproc edural examina tion
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
w ith Provide r Comment s: Restles s legs syndrom e (SCT [id number] 8) Outpatient 53305-5.61 SPIKE KULKARNI 07/12 [place] Encounter [id number] [facility] 60761-4.61 Abdiel AREVALO,APR 23 [place] Encounter [id number] is: [facility] ICD-10- HCS CM H25.11 Age-rel ated nuclear catarac t, right eye<br/ >with Provide r Comment s: Age-rel ated nuclear catarac t, right eye XCAPSL 97774-5.61 LUCY RUIZ Erica 07/12 [place] CTRC RMVL 8.39161009 /2021 [facility] W/O ECP HCS SPECIAL 28359-4.61 Diagnos CAYLA07/12 [place] ANESTHESIA 8.06955883 is: Sasha SEO [facility] SERVICE ICD-10- HCS CM H25.11 Age-rel ated nuclear catarac t, right eye<br/ >with Provide r Comment s: Age-rel ated nuclear catarac t, right eye Outpatient 44225-1.61 07/12 [place] Encounter [id number] /2020 [facility] POSTOP 93909-5.61 Abdiel AREVALO,APR 23 [place] FOLLOW-UP 8.55181349 is: [facility] VISIT ICD-10- HCS CM H25.12 Age-rel ated nuclear catarac t, left eye<br/ >with Provide r Comment s: Age-rel ated nuclear catarac t, left eye Outpatient 64640-7.61 07/13 [place] Encounter [id number] [facility] 16895-5.61 07/14 [place] Encounter [id number] /2020 [facility] POSTOP 43021-2.61 Abdiel AREVALO,APR 24 [place] FOLLOW-UP 8.29607124 is: [facility] VISIT ICD-10- HCS CM H25.12 Age-rel ated nuclear catarac t, left eye<br/ >with Provide r Comment s: Age-rel ated nuclear catarac t, left eye Outpatient 69029-0.61 07/20 [place] Encounter [id number] [facility] O/P 25458-4.61 Diagnos ANDREENRIKE 07/20 [place] EST 8.89324491 is: KAI [facility] MINIMAL ICD-10- HCS PROB CM Z71.89 Other specifi ed director of counseling ing<br/ >with Provide r Comment s: Other specifi ed Mapping Analyst ing Outpatient 44206-6.61 BOERHONDA RUBIN 07/21 [place] Encounter [id number] [facility] HEARING 92329-3.61 Diagnos ANGELICAERIN 07/21 [place] AID 8.26844570 is: AEL [facility] FITTING/CH ICD-10- HCS ECKING CM Z46.1 Encount er for fitting and adjustm ent of hearing aid<br/ >with Provide r Comment s: Encount er for fitting and adjustm ent of hearing aid GAIT 86785-1.61 Diagnos EDGARDOBINH 07/26 [place] TRAINING 8.78979673 is: SONIA [facility] THERAPY ICD-10- HCS CM Z74.09 Other reduced mobilit y
w ith Provide r Comment s: Other Reduced Mobilit y HC PRO 54537-9.61 Diagnos Leroy MOE 07/28 [place] PHONE CALL 8.08579058 is: ACHEL [facility] 5-10 MIN ICD-10- HCS CM Z71.89 Other specifi ed director of counseling ing<br/ >with Provide r Comment s: Other specifi ed director of counseling ing Outpatient 06011-8.61 07/29 [place] Encounter [id number] [facility] 15523-1.61 07/30 [place] Encounter [id number] [facility] O/P 14495-6.61 Diagnos ROSSI,MAR 08/02 [place] EST MOD 8.48062185 is: Y [facility] 30-39 MIN ICD-10- HCS CM E11.621 Type 2 diabete s mellitu s with foot ulcer<b r/>with Provide r Comment s: 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 Outpatient 01826-1.61 06/15 [place] Encounter [id number] [facility] Outpatient 65060-1.61 MALTRY,AMA 08/03 [place] Encounter [id number] ND [facility] Outpatient 35814-1.61 RADHA,ENRIKE 08/03 [place] Encounter [id number] [facility] J [facility] OFFICE O/P 62459-961 Diagnos RADHA,ENRIKE 08/03 [place] EST HI 8.47277526 is: [facility] 40-54 MIN ICD-10- HCS CM H26.8 Other specifi ed catarac t
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, left eye<br/ >with Provide r Comment s: XCAPSL 13123-5.61 WORNER,JOAN /15 [place] CTRC RMVL [id number] [facility] W/O ECP [facility] SPECIAL 71445-1.61 Diagnos RADHA,ENRIKE 08/03 [place] ANESTHESIA 8.38939465 is: [facility] ICD-10- HCS CM 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
with Provide r Comment s: Pseudop hakia Outpatient 98260-7 Diagnos PARADISE,H 08/11 [place] Encounter 8.43744426 is: HIWOT STUART /2020 [facility] ICD-10- H[facility] CM E11.8 Type 2 diabete s mellitu s with unspeci fied complic ations< br/>wit h Provide r Comment s: Diabete s mellitu s (SCT [id number] 9) Outpatient 81265-1 Diagnos BENFANTE,J 08/11 [place] Encounter 8.03404160 is: AMI L [facility] ICD-10- HCS CM Z71.89 Other specifi ed director of counseling ing<br/ >with Provide r Comment s: Other specifi ed Mapping Analyst ing Outpatient 93261-9 Diagnos MARISA,GARCIA 08/11 [place] Encounter [id number] is: NAH [facility] ICD-10- HCS CM I73.9 Periphe ral vascula r disease , unspeci fied
with Provide r Comment s: Periphe ral Vascula r Disease , Unspeci fied Outpatient 93604-2.61 08/12 [place] Encounter [id number] /2020 [facility] Outpatient 60869-2.61 08/16 [place] Encounter [id number] /2020 [facility] HC PRO 21758-0.61 Diagnos BENFANTE,J 08/17 [place] PHONE CALL 8.73846879 is: AMI L [facility] 5-10 MIN ICD-10- HCS CM Z71.89 Other specifi ed director of counseling ing<br/ >with Provide r Comment s: Other specifi ed Mapping Analyst ing HC PRO 14640-7.61 Diagnos BENFANTE,J 08/17 [place] PHONE CALL 8.37217278 is: AMI L [facility] 5-10 MIN ICD-10- HCS CM Z71.89 Other specifi ed director of counseling ing<br/ >with Provide r Comment s: Other specifi ed Mapping Analyst ing Outpatient 59488-3.61 08/18 [place] Encounter [id number] /2020 [facility] OFFICE O/P 18257-1.61 Diagnos ROSSI,APR 25 [place] EST HI 8.25399825 is: Y T [facility] 40-54 MIN ICD-10- HCS CM E11.621 Type 2 diabete s mellitu s with foot ulcer<b r/>with Provide r Comment s: 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 Outpatient 80906-7.61 BASHIR,RHONDA 08/20 [place] Encounter [id number] [facility] POSTOP 65577-2.61 Diagnos AREVALO,APR 25 [place] FOLLOW-UP 8.92132251 is: XUAN [facility] VISIT ICD-10- HCS CM Z98.42 Catarac t extract ion status, left eye<br/ >with Provide r Comment s: Catarac t Extract ion Status, left Eye Outpatient 85181-7.61 08/26 [place] Encounter [id number] [facility] OFFICE O/P 90396-8.61 Diagnos ROSSI,APR 25 [place] EST HI 8.74740008 is: Y T [facility] 40-54 MIN ICD-10- HCS CM E11.621 Type 2 diabete s mellitu s with foot ulcer<b r/>with Provide r Comment s: 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 ORTHOPEDIC 37314-4.61 Diagnos CUONG, 08/27 [place] SHOE 8.70194274 is: ALDA J [facility] MODIFICA ICD-10- HCS NOS CM E11.621 Type 2 diabete s mellitu s with foot ulcer<b r/>with Provide r Comment s: 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 HC PRO 77324-3.61 Diagnos DARY,Teodora 08/30 [place] PHONE CALL 8.56480574 is: AMI L [facility] 5-10 MIN ICD-10- HCS CM Z71.89 Other specifi ed director of counseling ing<br/ >with Provide r Comment s: Other specifi ed Mapping Analyst ing Outpatient 10097-8.61 09/03 [place] Encounter [id number] [facility] 39232-5.61 09/09 [place] Encounter [id number] [facility] OFF[facility] O/P 57420-461 Diagnos SCHEURER,R 09/10 [place] EST SF 8.87841831 is: OLIVER A [facility] 10-19 MIN ICD-10- HCS CM 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
with Provide r Comment s: Pseudop hakia OFFICE O/P 89133-2 Diagnos GISSELLE FOOTE 09/20 [place] EST MOD 8.74551875 is: [facility] 30-39 MIN ICD-10- HCS CM N52.8 Other male erectil e dysfunc tion
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 Outpatient 87303-8.61 09/23 [place] Encounter [id number] /2020 [facility] Outpatient 97987-8.61 09/24 [place] Encounter [id number] /2020 [facility] Outpatient 85748-2.61 / [place] Encounter [id number] /2020 [facility] OFFICE O/P 19404-3.61 Diagnos ROSSI,APR 26 [place] EST HI 8.35879926 is: Y T [facility] 40-54 MIN ICD-10- HCS CM E11.621 Type 2 diabete s mellitu s with foot ulcer<b r/>with Provide r Comment s: 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 Outpatient 93037-7.61 09/30 [place] Encounter [id number] /2020 [facility] Outpatient 38997-5.61 10/04 [place] Encounter [id number] /2020 [facility] ORAL 36014-9.61 Diagnos MARIA DEL CARMEN SON 10/04 [place] HYGIENE 8.23787342 is: A L [facility] INSTRUCTIO ICD-10- HCS N CM K03.6 Deposit s [accret ions] on teeth<b r/>with Provide r Comment s: Deposit s [accret ions] on teeth Outpatient 91356-9.61 10/05 [place] Encounter [id number] /2020 [facility] Outpatient 70861-6.61 10/08 [place] Encounter [id number] /2020 [facility] Outpatient 50772-1.61 10/08 [place] Encounter [id number] /2020 [facility] CPTR OPHTH 24796-9.61 Diagnos AREVALO,APR 26 [place] DX IMG 8.90645524 is: XUAN [facility] POST SEGMT ICD-10- HCS CM Z96.1 Presenc e of intraoc ular lens
with Provide r Comment s: Pseudop hakia OFFICE O/P 17608-9.61 Diagnos LATTERY, 10/11 [place] EST 8.88543204 is: RISTINE A [facility] MINIMAL ICD-10- HCS PROB CM Z71.89 Other specifi ed director of counseling ing<br/ >with Provide r Comment s: Other specifi ed Mapping Analyst ing Outpatient 47314-5.61 10/12 [place] Encounter [id number] /2020 [facility] ORTHOTIC 30313-3.61 Diagnos MASSIMO HUTCHINS 10/12 [place] MGMT&TRAIN 8.72200541 is: ALDA J [facility] G 1ST ENC ICD-10- [facility] CM E11.621 Type 2 diabete s mellitu s with foot ulcer<b r/>with Provide r Comment s: 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 Outpatient 91558-2.61 10/13 [place] Encounter [id number] /2020 [facility] OFFICE O/P 01791-9.61 Diagnos ROSSI,MAR 10/14 [place] EST HI 8.33829295 is: Y T [facility] 40-54 MIN ICD-10- [facility] CM E11.621 Type 2 diabete s mellitu s with foot ulcer<b r/>with Provide r Comment s: 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
with Provide r Comment s: Encount er for Screeni ng for Cardiov ascular Disorde rs OFFICE O/P 38909-6.61 Diagnos PROEBSTLE, 11/01 [place] EST MOD 8.61857973 is: MIGUEL /2020 [facility] 30-39 MIN ICD-10- B HCS CM Z01.818 Encount er for other preproc edural examina tion
with Provide r Comment s: PreOp Exam IMMUNIZATI 09352-061 Diagnos DESLAURIER 11/01 [place] ON ADMIN 8.91239832 is: S,DORI /2020 [facility] ICD-10- [place] HCS CM Z23 Encount er for immuniz ation<b r/>with Provide r Comment s: Encount er for Immuniz ation OFFICE O/P 84121-1.61 Diagnos ROSSI,APR 27 [place] EST HI 8.19464600 is: Y T [facility] 40-54 MIN ICD-10- HCS CM E11.621 Type 2 diabete s mellitu s with foot ulcer<b r/>with Provide r Comment s: 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 ORTHC/PROS 61253-9.61 Diagnos Teodora HARTMAN 11/04 [place] TC MGMT 8.07948372 is: CLAUDIA J /2020 [facility] SBSQ ENC ICD-10- HCS CM Z86.31 Persona l history of diabeti c foot ulcer<b r/>with Provide r Comment s: Persona l History of Diabeti c Foot Ulcer Outpatient 78529-2.61 11/08 [place] Encounter [id number] /[facility] SELF-MGMT 46272-5 Diagnos ERIN DOMINGUEZ 11/08 [place] EDUC & 8.17538133 is: AEL F [facility] TRAIN 1 PT ICD-10- HCS CM H90.3 Sensori neural hearing loss, bilater al
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,TO 11/12 [place] EST HI 8.62827293 is: RY L /2020 [facility] 40-54 MIN ICD-10- HCS CM I25.10 Athscl heart disease of [place] coronar y artery w/o ang pctrs<b r/>with Provide r Comment s: Coronar y artery disease (SCT [id number] 8) Outpatient 88091-8. ROJO,TO 11/12 [place] Encounter [id number] RY L [facility] Outpatient 04017-7.61 11/12 [place] Encounter [id number] /2020 [facility] Outpatient 31283-4.61 Diagnos Leroy STANFORD 11/12 [place] Encounter [id number] is: OLIVER A [facility] ICD-10- HCS CM H02.401 Unspeci fied ptosis of right eyelid< br/>wit h Provide r Comment s: Unspeci fied ptosis of right eyelid REPAIR 59277-4.61 SLAVA FRANCO 11/12 [place] BROW [id number] MICHAEL L [facility] DEFECT [facility]CS SPECIAL 97483-6.61 Diagnos ROJO,TO 11/12 [place] ANESTHESIA 8.76484142 is: RY [facility] SERVICE ICD-10- HCS CM H02.401 Unspeci fied ptosis of right eyelid< br/>wit h Provide r Comment s: Unspeci fied ptosis of right eyelid Outpatient 46657-2.61 11/12 [place] Encounter [id number] /2020 [facility] AFO MOLDED 89992-3.61 Diagnos Teodora HARTMAN 11/16 [place] TO PATIENT 8.17266347 is: CLAUDIA [facility] PLASTI ICD-10- [facility] CM E11.621 Type 2 diabete s mellitu s with foot ulcer<b r/>with Provide r Comment s: 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 Outpatient 35676-6.61 11/17 [place] Encounter [id number] /2020 [facility] Outpatient 40814-8.61 BOECARYNRHONDA 11/22 [place] Encounter [id number] OLE M [facility] EMERGENCY 70051-4.61 CHUCK Aguilar 11/24 [place] DEPT VISIT 8.49503518 is: IN [facility] ICD-10- [facility] CM H01.009 Unspeci fied blephar itis unspeci fied eye, unspeci fied eyelid< br/>wit h Provide r Comment s: Unspeci fied Blephar itis unspeci fied Eye, unspeci fied Eyelid POSTOP 25267-4.61 Diagnos ABDOULAYER 11/25 [place] FOLLOW-UP 8.12210589 is: OLIVER A [facility] VISIT ICD-10- HCS CM Z48.810 Encntr for surgica l aftcr fol surgery on the sense organs< br/>wit h Provide r Comment s: Encntr for surgica l aftcr fol surgery on the sense organs Outpatient 24361-9.61 SONNY,H 12/02 [place] Encounter [id number] [facility] Outpatient 88875-2.61 Diagnos BEAR,K 12/02 [place] Encounter [id number] is: GIINE [facility] ICD-10- HCS CM Z23 Encount er for immuniz ation<b r/>with Provide r Comment s: Encount er for Immuniz ation ORTHC/PROS 75360-4.61 Teodora Munguia 12/07 [place] TC MGMT 8.28629700 is: CLAUDIA [facility] SBSQ ENC ICD-10- HCS CM E11.621 Type 2 diabete s mellitu s with foot ulcer<b r/>with Provide r Comment s: 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 Outpatient 26189-5.61 12/07 [place] En[place] [id number] [facility] Out[facility] 55488-8.61 12/08 [place] Encounter [id number] [facility] Out[facility] 27596-0.61 12/08 [place] Encounter [id number] /2020 [facility] HC PRO 11523-0.61 Diagnos GIBSON,BR 12/09 [place] PHONE CALL 8.38924371 is: IDGET [facility] 5-10 MIN ICD-10- HCS CM H90.3 Sensori neural hearing loss, bilater al
with Provide r Comment s: Sensori neural hearing loss, bilater al OFFICE O/P 26971-4.61 Diagnos ROSSI,APR 28 [place] EST HI [id number] is: Y T [facility] 40-54 MIN ICD-10- HCS CM E11.621 Type 2 diabete s mellitu s with foot ulcer<b r/>with Provide r Comment s: 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 HEARING 77864-4.61 Diagnos KRISTINA,MARK 12/13 [place] AID CHECK [id number] is: LD C /2020 [facility] BOTH EARS ICD-10- HCS CM H90.3 Sensori neural hearing loss, bilater al
with Provide r Comment s: Sensori neural hearing loss, bilater al Outpatient 72437-3.61 SYSTEM,CIS 12/14 [place] Encounter [id number] -[facility] Out[facility] 58916-5.61 SYSTEM,CIS 12/14 [place] Encounter [id number] -[facility] HC PRO 36581-2.61 Diagnos [place] 12/14 M [facility] PHONE CALL [phone] is: IE E [facility] 5-10 MIN ICD-10- HCS CM Z71.89 Other specifi ed director of counseling ing<br/ >with Provide r Comment s: Other specifi ed director of counseling ing EMERGENCY 30275-0.61 Diagnos EDDIE,S 12/14 M [facility] DEPT VISIT [id number] is: TYSHAWNEY MARK S [place] ICD-10- HCS CM R04.2 Hemopty sis<br/ >with Provide r Comment s: Hemopty sis (SCT [id number]) Outpatient 73539-5.61 12/14 [place] Encounter [id number] /2020 [facility] OFFICE O/P 39930-8.61 Diagnos PARADISE,H 12/15 [place] EST [place] [id number] is: HIWOT STUART [facility] 40-54 MIN ICD-10- HCS CM I73.9 Periphe ral vascula r disease , unspeci fied
with Provide r Comment s: Periphe ral vascula r disease (SCT [id number]) [place] [address]-0.61 Diagnos TEE, 12/15 [place] DIG [id number] is: RAFAEL Maldonado /2020 [facility] ASSMT&MGMT ICD-10- HCS 5-10 CM Z48.00 Encount er for change or removal of nonsurg wound dressin g
w ith Provide r Comment s: Encount er for Change or Removal of Nonsurg ical Wound Dressin g Outpatient 15924-6.61 12/16 [place] Encounter [id number] [facility] RMVL 71048-5.61 Diagnos ROSSI,MAR 12/16 [place] [facility] [id number] is: Y T [facility] TIS 20 ICD-10- HCS CM/< CM E11.621 Type 2 diabete s mellitu s with foot ulcer<b r/>with Provide r Comment s: 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 ORTHC/PROS 36444-0.61 Diagnos Teodora HARTMAN 12/16 [place] TC MGMT [id number] is: CLAUDIA J /2020 [facility] [place] SBSQ ENC ICD-10- [facility] CM E11.621 Type 2 diabete s mellitu s with foot ulcer<b r/>with Provide r Comment s: 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 MULTI DEN 08590-5.61 Diagnos MASSIMO HUTCHINS 12/16 [place] INSERT [id number] is: ALDA J /2020 [facility] A CUSTOM ICD-10- [facility] MOLD CM E11.621 Type 2 diabete s mellitu s with foot ulcer<b r/>with Provide r Comment s: 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 PT EVAL 22415-6.61 Diagnos ADAN JACKSON 12/16 [place] LOW [id number] is: LOIDA P /2020 [facility] A COMPLEX 20 ICD-10- HCS MIN CM R26.9 Unspeci fied abnorma lities of gait and mobilit y
w ith Provide r Comment s: Unspeci fied Abnorma lities of Gait and Mobilit y Outpatient 13040-0.61 12/17 [place] Encounter [id number] [facility] Outpatient 80009-5.61 12/21 [place] Encounter [id number] [facility] OFFICE O/P 79383-3.61 Diagnos ROSSI,MAR 12/23 [place] EST SF 8.30112951 is: Y T [facility] 10-19 MIN ICD-10- HCS CM E11.621 Type 2 diabete s mellitu s with foot ulcer<b r/>with Provide r Comment s: 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 Outpatient 82681-6.61 / [place] En[place] [id number] /2020 [facility] Outpatient 98125-3.61 12/27 [place] En[place] [id number] /2020 [facility] Outpatient 71202-6.61 12/28 [place] Encounter [id number] /2020 [facility] OFFICE O/P 17976-7.61 Diagnos SAUMYA,AD 12/31 [place] EST LOW 8.89757455 is: AM R [facility] 20-29 MIN ICD-10- HCS CM M14.671 Charcot 's joint, right ankle and foot
with Provide r Comment s: Charcot 's Joint, right Ankle and Foot ELECTROCAR 14115-6.61 Diagnos RODRICK SOTO 01/05 [place] DIOGRAM 8.66592541 is: NZI [facility] COMPLETE ICD-10- HCS CM Z13.6 Encount er for screeni ng for cardiov ascular disorde rs
with Provide r Comment s: Encount er for Screeni ng for Cardiov ascular Disorde rs OFFICE O/P 80507-2.61 Diagnos PARADISE,H 01/05 [place] EST LOW 8.19260275 is: HIWOT STUART [facility] 20-29 MIN ICD-10- HCS CM E11.8 Type 2 diabete s mellitu s with unspeci fied complic ations< br/>wit h Provide r Comment s: Diabete s mellitu s (SCT [id number] 9) OFFICE O/P 50556-3.61 Diagnos DIANA,RADHA 01/05 [place] EST MOD [id number] is: JASEN L [facility] 30-39 MIN ICD-10- HCS CM Z96.1 Presenc e of intraoc ular lens
with Provide r Comment s: Presenc e of intraoc ular lens Outpatient 13483-2.61 01/06 [place] Encounter [id number] /2020 [facility] HC PRO 17818-9.61 Diagnos LISA MENDEZ 01/10 [place] PHONE CALL 7.73632362 is: ERNESTO WHITFIELD /2020 [facility] 11-20 MIN ICD-10- HCS CM H90.3 Sensori neural hearing loss, bilater al
with Provide r Comment s: Sensori neural hearing loss, bilater al Outpatient 95417-8.61 01/12 [place] Encounter [id number] /2020 [facility] Out[facility] 25236-5.61 01/12 [place] En[place] [id number] /2020 [facility] Outpatient 81892-0.61 BOESCH,RHONDA 01/14 [place] Encounter [id number] OLE M [facility] Outpatient 19134-0.61 01/17 [place] En[place] [id number] /2020 [facility] Outpatient 93667-9.61 01/21 [place] En[place] [id number] /2020 [facility] Outpatient 95389-8.61 01/24 [place] Encounter [id number] /2020 [facility] Outpatient 97995-3.61 FABY FERRARO 01/24 [place] Encounter [id number] Y C [facility] Outpatient 02929-4.61 Diagnos PARADISE,H 01/24 [place] Encounter [id number] is: HIWOT STUART /2020 [facility] ICD-10- HCS CM E11.8 Type 2 diabete s mellitu s with unspeci fied complic ations< br/>wit h Provide r Comment s: Diabete s mellitu s (SCT [id number] 9) [place] [address]-1.61 Diagnos ERDAHL,AND 01/25 [place] DIG 8.04270546 is: CLARKE L [facility] ASSMT&MGMT ICD-10- HCS 5-10 CM 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
w ith Provide r Comment s: Restles s Legs Syndrom e Outpatient 96054-5.61 01/25 [place] Encounter [id number] /2020 [facility] WHEELCHAIR 88815-6.61 Diagnos ADAN JACKSON 01/27 [place] MNGMENT 8.63331377 is: LOIDA P /2020 [facility] TRAINING ICD-10- HCS CM R26.9 Unspeci fied abnorma lities of gait and mobilit y
w ith Provide r Comment s: Unspeci fied Abnorma lities of Gait and Mobilit y Outpatient 29402-4.61 12/ [place] Encounter [id number] /2020 [facility] Outpatient 08560-0.61 12/ [place] En[place] [id number] /2020 [facility] Outpatient 28596-0.61 12/ [place] Encounter [id number] /2020 [facility] OFFICE O/P 33953-8.61 Diagnos ROSSI,MAR 02/02 [place] EST HI 8.39186065 is: Y T /2020 [facility] 40-54 MIN ICD-10- HCS CM E11.621 Type 2 diabete s mellitu s with foot ulcer<b r/>with Provide r Comment s: 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 [address]-3.61 Diagnos Teodora DIXON 02/04 [place] PHARM ADDL [id number] is: ORDRUDY L /2020 [facility] 15 MIN ICD-10- HCS CM E11.8 Type 2 diabete s mellitu s with unspeci fied complic ations< br/>wit h Provide r Comment s: Diabete s mellitu s (SCT [id number] 9) Outpatient 40985-7.61 12/ [place] En[place] [id number] /2020 [facility] Outpatient 40511-9.61 12/ [place] En[place] [id number] /2020 [facility] Outpatient 23273-4.61 02/09 [place] Encounter [id number] /2020 [facility] Outpatient 57897-0.61 12/23 [place] Encounter [id number] /2020 [facility] ROUT FOOT 80844-8.61 Diagnos EVANGELINA,CHR 02/14 [place] CARE PER 8.42320360 is: ISTINE A [facility] VISIT ICD-10- HCS CM L84 Corns and callosi ties
with Provide r Comment s: Corns and callosi ties OFFICE O/P 52822-4 Diagnos SAUMYA,AD 02/14 [place] EST LOW 8.43266409 is: AM R /2020 [facility] 20-29 MIN ICD-10- HCS CM L60.8 Other nail disorde rs
with Provide r Comment s: Other nail disorde rs Outpatient 90623-8.61 02/16 [place] Encounter [id number] /2020 [facility] Outpatient 04713-4.61 02/22 [place] Encounter [id number] /2021 [facility] Outpatient 54268-961 [place] 02/22 [place] Encounter [id number] NUNU M [facility] Outpatient 58847-2.61 02/23 [place] Encounter [id number] /2021 [facility] [place] [address]-9.61 Diagnos KRISTEN COLLINS 02/23 [place] PHARM ADDL [id number] is: REBECCA M [facility] 15 MIN ICD-10- HCS CM E11.8 Type 2 diabete s mellitu s with unspeci fied complic ations< br/>wit h Provide r Comment s: Diabete s mellitu s (SCT [id number] 9) OFFICE O/P Diagnos MYKE LEMON 02/23 [place] EST MOD 8.60276365 is: IGGY L [facility] 30-39 MIN ICD-10- HCS CM L03.032 Celluli tis of left toe<br/ >with Provide r Comment s: Celluli tis of left Toe Outpatient 66425-6.61 02/28 [place] Encounter [id number] /2021 [facility] Outpatient 65813-1.61 02/28 [place] Encounter [id number] [facility] Outpatient 87757-0.61 SYSTEM,CIS 03/01 [place] Encounter [id number] -ARK [facility] Outpatient 04216-2.61 SYSTEM,CIS 03/01 [place] Encounter [id number] -AR [facility] HEAR[facility] 29323-5.61 Diagnos ANDENAS 03/01 [place] AID CHECK [id number] is: VA,KI [facility] BOTH EARS ICD-10- [facility] CM H93.13 Tinnitu s, bilater al
with Provide r Comment s: Tinnitu s, bilater al Outpatient 10346-5.61 03/01 [place] Encounter [id number] [facility] EMERGENCY 43433-2.61 Diagnos LEXIE,STEP 03/01 [place] DEPT VISIT 8.18944748 is: CONRADNATHAN JADIEL [facility] ICD-10- [facility] CM L03.90 Celluli tis, unspeci fied
with Provide r Comment s: Celluli tis, unspeci fied Outpatient 93790-1.61 03/02 [place] Encounter [id number] [facility] OFFICE O/P 03258-5.61 Diagnos ROSSI,APR 19 [place] EST [place] 8.78136088 is: Y T [facility] 40-54 MIN ICD-10- HCS CM E11.621 Type 2 diabete s mellitu s with foot ulcer<b r/>with Provide r Comment s: 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 Outpatient 28534-5.61 03/08 [place] Encounter [id number] [facility] 58710-5.61 03/08 [place] Encounter [id number] [facility] Outpatient 63698-5.61 03/08 [place] Encounter [id number] [facility] Outpatient 99384-0.61 03/09 [place] Encounter [id number] /2021 [facility] OFFICE O/P 40615-9.61 Diagnos MICKEY,APR 19 [place] EST MOD 8.74072683 is: XUAN [facility] 30-39 MIN ICD-10- HCS CM Z96.1 Presenc e of intraoc ular lens
with Provide r Comment s: Pseudop sáncheza Outpatient 12938-6.61 03/10 [place] Encounter [id number] /2021 [facility] Out[facility] 91871-5.61 03/14 [place] En[place] [id number] /2021 [facility] Outpatient 22844-5.61 BOESCH,RHONDA 03/16 [place] Encounter [id number] OLE M [facility] Outpatient 61327-2.61 03/22 [place] Encounter [id number] /2021 [facility] ORTHOTIC 21019-0.61 Diagnos CUONG, 03/22 [place] MGMT&TRAIN 8.73480606 is: ALDA J [facility] G 1ST ENC ICD-10- HCS CM Z86.31 Persona l history of diabeti c foot ulcer<b r/>with Provide r Comment s: Persona l History of Diabeti c Foot Ulcer Outpatient 69171-8.61 03/23 [place] Encounter [id number] /2021 [facility] OFFICE O/P 39952-9.61 Diagnos LINNETTE PINEDA 03/28 [place] EST LOW 8.93518055 is: REL [facility] 20-29 MIN ICD-10- HCS CM I50.9 Heart failure , unspeci fied
with Provide r Comment s: Heart failure (SCT [id number] 7) Outpatient 52665-8.61 03/29 [place] Encounter [id number] /2021 [facility] Out[facility] 38188-2.61 03/31 [place] Encounter [id number] /2021 [facility] THERAPEUTI 61376-1.61 Diagnos GARRETT MADDOX 03/31 [place] C 8.06273290 is: NNER W [facility] ACTIVITIES ICD-10- HCS CM M14.671 Charcot 's joint, right ankle and foot
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<b r/>with Provide r Comment s: 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 Outpatient 64499-2.61 04/08 [place] Encounter [id number] /2021 [facility] Out[facility] 00758-8.61 04/13 [place] Encounter [id number] /2021 [facility] Outpatient 53256-5.61 04/13 [place] Encounter [id number] /2021 [facility] OFFICE O/P 85857-3.61 Diagnos ISABELLASID 04/15 [place] EST 8.41920827 is: SANJAY BARRETT /2021 [facility] MINIMAL ICD-10- HCS PROB CM H52.4 Presbyo lenny<br/ >with Provide r Comment s: Presbyo lenny Outpatient 03968-5.61 04/20 [place] Encounter [id number] /2021 [facility] OFFICE O/P 29456-9.61 Diagnos PARADISE,H 04/25 [place] EST [place] 8.99057561 is: HIWOTSasha STUART /2021 [facility] 40-54 MIN ICD-10- HCS CM M19.91 Primary osteoar thritis , unspeci fied site
with Provide r Comment s: Osteoar thritis ([facility] [id number] 06) Outpatient 00826-1.61 BOESCH,RHONDA 04/25 [place] Encounter [id number] OLE M /2021 [facility] Out[facility] 88946-7.61 04/25 [place] Encounter [id number] /2021 [facility] ELECTROCAR 16906-2.61 Diagnos RODRICK SOTO 04/28 [place] DIOGRAM 8.76224383 is: NZI [facility] COMPLETE ICD-10- HCS CM Z13.6 Encount er for screeni ng for cardiov ascular disorde rs
with Provide r Comment s: Encount er for Screeni ng for Cardiov ascular Disorde rs Outpatient 83634-1.61 03/10 [place] Encounter [id number] /2021 [facility] Out[facility] 97652-7.61 03/10 [place] Encounter [id number] /2021 [facility] Outpatient 72446-1.61 /16 [place] Encounter [id number] /2021 [facility] HC PRO 60212-4.61 Diagnos AMIE YOUSSEF 05/09 [place] PHONE CALL [id number] is: ONDA A /2021 [facility] 5-10 MIN ICD-10- HCS CM Z71.89 Other specifi ed director of counseling ing<br/ >with Provide r Comment s: Other specifi ed director of counseling ing Outpatient 25790-3.61 05/09 [place] Encounter [id number] /2021 [facility] Outpatient 97000-3.61 05/10 [place] Encounter [id number] /2021 [facility] Outpatient 81104-3.61 05/10 [place] Encounter [id number] /2021 [facility] ELECTROCAR 68836-0.61 Diagnos RODRICK SOTO 05/11 [place] DIOGRAM 8.49495176 is: NZI /2021 [facility] COMPLETE ICD-10- HCS CM Z13.6 Encount er for screeni ng for cardiov ascular disorde rs
with Provide r Comment s: Encount er for Screeni ng for Cardiov ascular Disorde rs OFFICE 90959-3.61 Diagnos Teodora HOFF 05/11 [facility] 8.52720687 is: OHN D /2021 [facility] ON ICD-10- HCS CM I35.0 Nonrheu matic aortic (valve) stenosi s
w ith Provide r Comment s: Aortic valve stenosi s (SCT [id number] 4) Outpatient 58482-8.61 05/11 [place] Encounter [id number] /2021 [facility] Out[facility] 49150-6.61 05/11 [place] Encounter [id number] [facility] INJ 36936-9.61 Diagnos VERN,SCO 05/11 [place] PERFLUTREN 8.06864417 is: TT A [facility] LIP ICD-10- HCS MICROS,ML CM I35.0 Nonrheu matic aortic (valve) stenosi s
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
with Provide r Comment s: Charcot 's joint of foot (SCT [id number] 02) [place] [address]-2.61 Diagnos WALEK,STEP 05/19 [place] DIG 8.57480517 is: HANIE [facility] ASSMT&MGMT ICD-10- HCS 5-10 CM E08.8 Diabete s due to underly ing conditi on w unsp complic ations< br/>wit h Provide r Comment s: Diabete s Mellitu s due to Underly ing Conditi on with unspeci fied Complic ations OFFICE O/P 66892-5.61 Diagnos SAUMYA,AD 05/20 [place] EST LOW 8.15332536 is: AM R /2021 [facility] 20-29 MIN ICD-10- HCS CM M14.671 Charcot 's joint, right ankle and foot
with Provide r Comment s: Charcot 's joint of foot (SCT [id number] 02) [place] 258[address]-5.61 Diagnos TEE, 05/20 [place] DIG 8.81998444 is: RAFAEL Maldonado /2021 [facility] ASSMT&MGMT ICD-10- HCS 5-10 CM Z48.00 Encount er for change or removal of nonsurg wound dressin g
w ith Provide r Comment s: Encount er for Change or Removal of Nonsurg ical Wound Dressin g Outpatient 61446-4.61 04 [place] Encounter [id number] /2021 [facility] ORTHC/PROS 78957-6.61 Diagnos MINNIE,J 05/24 [place] TC MGMT 8.77274381 is: CLAUDIA Araiza /2021 [facility] SBSQ ENC ICD-10- HCS CM 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
with Provide r Comment s: Charcot 's Joint, left Ankle and Foot Outpatient 04126-9.61 04/ [place] Encounter [id number] /2021 [facility] Outpatient 93682-7.61 05/26 [place] Encounter [id number] /2021 [facility] Outpatient 14511-0.61 [place]AD[place],H 05/27 [place] Encounter [id number] HIWOTSasha STUART /2021 [facility] Outpatient 05001-8.61 05/27 [place] Encounter [id number] /2021 [facility] Outpatient 19474-2.61 05/31 [place] Encounter [id number] /2021 [facility] ADM 65694-3.61 Diagnos CAITLYN, 06/02 [place] SARSCV2 8.23144150 is: CLAY DUVALL /2021 [facility] 30MCG ICD-10- HCS TRS-SUCR B CM Z23 Encount er for immuniz ation<b r/>with Provide r Comment s: Encount er for Immuniz ation AFO POS 07345-1.61 Diagnos MINNIE,J 06/06 [place] SOLID ANK 8.57906026 is: CLAUDIA J /2021 [place] ICD-10- HCS CM 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
with Provide r Comment s: Charcot 's Joint, left Ankle and Foot Outpatient 24829-6.61 06/07 [place] Encounter [id number] [facility] Outpatient 60846-8.61 06/08 [place] Encounter [id number] /2021 [facility] OFFICE O/P 62915-8.61 Diagnos ROSSI,MAR 06/09 [place] EST HI 8.29007656 is: Y T /2021 [facility] 40-54 MIN ICD-10- HCS CM E11.621 Type 2 diabete s mellitu s with foot ulcer<b r/>with Provide r Comment s: 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 Outpatient 11839-5.61 06/13 [place] Encounter [id number] /2021 [facility] Outpatient 89814-3.61 Santos MAN 06/13 [place] Encounter [id number] SALEEM E [facility] Outpatient 98142-1.61 06/13 [place] Encounter [id number] /2021 [facility] Outpatient 67418-5.61 06/14 [place] Encounter [id number] /2021 [facility] Outpatient 44104-5.61 06/14 [place] Encounter [id number] /2021 [facility] Outpatient 89310-6.61 06/15 [place] Encounter [id number] /2021 [facility] Outpatient 34445-9.61 MELA WIGGINS 06/15 [place] Encounter [id number] THAN C [facility] Outpatient 88205-2.61 06/16 [place] Encounter [id number] [facility] Outpatient 73297-5.61 06/17 [place] Encounter [id number] /2021 [facility] Out[facility] 40807-761 WIGGINSMELA 06/17 [place] Encounter [id number] THAN C [facility] Outpatient 21244-161 Diagnos Ashley JEWELL 06/21 [place] Encounter [id number] is: KIMBERLY J /2021 [facility] ICD-10- HCS CM M62.81 Muscle weaknes s (genera lized)< br/>wit h Provide r Comment s: Muscle Weaknes s (Genera lized) Outpatient 34472-8.61 / [place] En[place] [id number] /2021 [facility] Outpatient 48889-661 06/21 [place] Encounter [id number] /2021 [facility] Outpatient 71269-7 Diagnos BURCH, 06/21 [place] Encounter [id number] is: CHESTER /2021 [facility] ICD-10- HCS CM R13.12 Dysphag ia, orophar yngeal phase<b r/>with Provide r Comment s: Dysphag ia, Orophar yngeal Phase Outpatient 18080-1.61 / [place] Encounter [id number] /2021 [facility] Outpatient 29749-1.61 / [place] En[place] [id number] /2021 [facility] Outpatient 17893-1.61 / [place] Encounter [id number] /2021 [facility] DEBRIDE 99540-761 Diagnos JAZMYN CASAREZ 06/22 [place] NAIL 1-5 8.66194857 is: CE [facility] ICD-10- HCS CM L60.3 Nail dystrop hy
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<b r/>with Provide r Comment s: 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 Outpatient 82438-2.61 05/10 [place] Encounter [id number] /2021 [facility] Outpatient 62775-4.61 05/ [place] Encounter [id number] /2021 [facility] Outpatient 06502-2.61 05/ [place] Encounter [id number] /2021 [facility] Outpatient 88131-9.61 05 [place] Encounter [id number] /2021 [facility] Outpatient 42897-2.61 07/04 [place] Encounter [id number] /2021 [facility] OFFICE O/P 34507-8.61 Diagnos BUFFY,[facility] 07/04 [place] EST MOD [id number] is: HELL E /2021 [facility] A 30-39 MIN ICD-10- HCS CM H04.123 Dry eye syndrom e of bilater al lacrima l glands< br/>wit h Provide r Comment s: Dry Eye Syndrom e of Bilater al Lacrima l Glands Outpatient 25450-2.61 07/05 [place] Encounter [id number] /2021 [facility] Outpatient 93992-1.61 07/05 [place] Encounter [id number] /2021 [facility] Outpatient 13045-9.61 05 [place] Encounter [id number] /2021 [facility] Outpatient 70639-2.61 05 [place] Encounter [id number] /2021 [facility] Outpatient 53827-7.61 07/07 [place] Encounter [id number] /2021 [facility] OFFICE O/P 51196-9.61 Diagnos ROSSI,MAR 07/07 [place] EST [place] [id number] is: Y T [facility] 40-54 MIN ICD-10- HCS CM 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
Provide r Comment s: Patient 's other Noncomp liance with Medicat ion Regimen Outpatient 71197-0.61 07/14 [place] Encounter [id number] /2021 [facility] Outpatient 24162-9.61 07/15 [place] Encounter [id number] /2021 [facility] Outpatient 47429-5.61 / [place] En[place] [id number] /2021 [facility] Outpatient 91292-1.61 06/ [place] Encounter [id number] /2021 [facility] Outpatient 54483-6.61 / [place] En[place] [id number] /2021 [facility] Outpatient 90399-8.61 07/29 [place] Encounter [id number] /2021 [facility] OFFICE O/P 79418-8.61 Diagnos PARADISE,H 07/29 [place] EST [place] [id number] is: HIWOT STUART /2021 [facility] 40-54 MIN ICD-10- HCS CM I25.10 [facility] heart disease [facility] [place] coronar y artery w/o ang pctrs<b r/>with Provide r Comment s: Coronar y artery disease (SCT [id number] 8) Outpatient 07015-6.61 06/14 [place] Encounter [id number] /2021 [facility] Outpatient 75515-9.61 06/16 [place] En[place] [id number] /2021 [facility] Outpatient 43282-8.61 06/ [place] En[place] [id number] /2021 [facility] Outpatient 58962-0.61 06/ [place] En[place] [id number] /2021 [facility] Outpatient 67726-6.61 08/11 [place] Encounter [id number] /2021 [facility] Outpatient 22023-0.61 08/12 [place] En[place] [id number] /2021 [facility] Outpatient 80821-3.61 08/15 [place] Encounter [id number] /2021 [facility] Outpatient [id number] RHONDA CAMEJO 08/17 [place] Encounter [id number] OLE M /2021 [facility] Outpatient 78030-3.61 08/18 [place] Encounter [id number] /2021 [facility] ORTHC/PROS 74206-6.61 Diagnos Teodora HARTMAN 08/19 [place] MGMT [id number] is: CLAUDIA J /2021 [facility] SBSQ ENC ICD-10- HCS CM 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
with Provide r Comment s: Charcot 's Joint, left Ankle and Foot Outpatient 21216-7.61 07/05 [place] Encounter [id number] /2021 [facility] Outpatient 00489-4.61 07/ [place] En[place] [id number] /2021 [facility] Outpatient 09009-5.61 07/05 [place] Encounter [id number] /2021 [facility] Outpatient 67772-7.61 07/ [place] En[place] [id number] /2021 [facility] Outpatient 28294-7.61 07/ [place] Encounter [id number] [facility] [place] 37555-3.61 Diagnos FRANCES,BARBRA 08/28 [place] PHONE CALL [id number] is: MYLES [facility] 11-20 MIN ICD-10- HCS CM Z71.89 Other specifi ed director of counseling ing<br/ >with Provide r Comment s: Other specifi ed director of counseling ing EMERGENCY 45418-7.61 Diagnos LUCIE,CON 08/28 [place] DEPT VISIT [id number] is: STANCE L O [facility] ICD-10- HCS CM R68.84 Jaw pain
with Provide r Comment s: Jaw Pain Outpatient 87990-1.61 08/29 [place] Encounter [id number] [facility] HC PRO 22014-4.61 Diagnos MAYNOR,ALARCON 08/29 [place] PHONE CALL [id number] is: WAINA A [facility] 5-10 MIN ICD-10- HCS CM Z71.89 Other specifi ed director of counseling ing<br/ >with Provide r Comment s: Other specifi ed director of counseling ing HC PRO 33842-3.61 Diagnos ARITA,CAR 09/04 [place] PHONE CALL [id number] is: OLYN MARK S [facility] 11-20 MIN ICD-10- HCS CM Z71.89 Other specifi ed director of counseling ing<br/ >with Provide r Comment s: Other specifi ed director of counseling ing EMERGENCY 72070-5.61 Diagnos MORROW,AB 09/04 [place] DEPT VISIT [id number] is: DISAMAD [facility] ICD-10- HCS CM K08.89 Other specifi ed disorde rs of teeth and support ing structu res<br/ >with Provide r Comment s: Other specifi ed Disorde rs of Teeth and Support ing Structu res Outpatient 50497-1.61 09/05 [place] Encounter [id number] [facility]TH[facility]/PROS 40638-4.61 Diagnos MINNIEJ 09/06 [place] MGMT [id number] is: CLAUDIA J [facility] SBSQ ENC ICD-10- HCS CM 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
with Provide r Comment s: Charcot 's Joint, left [facility] 98443-2.61 09/08 [place] En[place] [id number] /[facility] 25108-7.61 09/09 [place] En[place] [id number] /2021 [facility] 41453-2.61 09/09 [place] En[place] [id number] /2021 [facility] 53961-9.61 09/09 [place] [facility] [id number] /[facility] 58981-7.61 09/09 [place] En[place] [id number] /2021 [facility] 88674-7.61 RHONDA CAMEJO 09/15 [place] Encounter [id number] [facility] OFFICE O/P 05039-4.61 GISSELLE Feng 09/21 [place] EST MOD [id number] is: [facility] 30-39 MIN ICD-10- HCS CM N52.8 Other male erectil e dysfunc tion
with Provide r Comment s: Other Male Erectil e Dysfunc tion Outpatient 20588-8.61 08 [place] En[place] [id number] /2021 [facility] Outpatient 89830-6.61 09/22 [place] En[place] [id number] /2021 [facility] Outpatient 99639-5.61 JULIAN FREY 09/22 [place] En[place] [id number] /2021 [facility] Outpatient 87018-5.61 09/27 [place] Encounter [id number] /2021 [facility] Outpatient 26892-5.61 08/ [place] En[place] [id number] /2021 [facility] Outpatient 20622-5.61 08 [place] Encounter [id number] /2021 [facility] HEARING 66953-9.61 Diagnos MARK RAND 09/28 [place] AID CHECK [id number] is: LD H /2021 [facility] ICD-10- HCS CM H90.3 Sensori neural hearing loss, bilater al
with Provide r Comment s: Sensori neural hearing loss, bilater al Outpatient 16323-9.61 09/29 [place] Encounter [id number] /2021 [facility] Outpatient 53097-9.61 Diagnos ROSSI,APR 26 [place] Encounter [id number] is: Y T [facility] ICD-10- [facility] CM E11.621 Type 2 diabete s mellitu s with foot ulcer<b r/>with Provide r Comment s: 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 Outpatient 33081-3.61 BOECARYN,RHONDA 10/10 [place] Encounter [id number] [facility] Outpatient 58741-6.61 10/23 [place] Encounter [id number] /2021 [facility] 93775-4.61 11/01 [place] Encounter [id number] /2021 [facility] Outpatient 83771-6.61 11/01 [place] Encounter [id number] /2021 [facility] Outpatient 74708-2.61 11/07 [place] Encounter [id number] /2021 [facility] Outpatient 60991-2.61 11/08 [place] Encounter [id number] /2021 [facility] Outpatient 32970-5.61 SONNY,H 11/08 [place] Encounter [id number] HIWOT STUART /2021 [facility] Outpatient 24738-7.61 BOECARYN,RHONDA 11/15 [place] Encounter [id number] OLE M [facility] Outpatient 62806-7.61 10/ [place] Encounter [id number] /2021 [facility] Outpatient 80171-6.61 11/22 [place] Encounter [id number] /2021 [facility] REM THER 80975-5.61 Diagnos ROSSI,APR 28 [place] MNTR 1ST [id number] is: Y T [facility] A 20 MIN ICD-10- HCS CM E11.43 Type 2 diabete s w diabeti c autonom ic (poly)n europat hy
with Provide r Comment s: Type 2 Diabete s Mellitu s with Diabeti c Autonom ic (Poly)N europat hy Outpatient 03863-1.61 10/ [place] En[place] [id number] [facility] 42081-0.61 10/11 [place] En[place] [id number] [facility] 51695-8.61 BOECARYN,RHONDA 12/12 [place] Encounter [id number] [facility] ROUT FOOT 45043-1.61 Diagnos ERNIE YOUSSEF 12/12 [place] CARE PER [id number] is: E [facility] VISIT ICD-10- HCS CM L60.3 Nail dystrop hy
with Provide r Comment s: Nail dystrop hy OFFICE O/P 87332-3.61 Diagnos PARADISE,H 12/15 [place] EST HI [id number] is: HIWOT STUART /2021 [facility] 40-54 MIN ICD-10- HCS CM M14.671 Charcot 's joint, right ankle and foot
with Provide r Comment s: Charcot 's joint of foot ([facility] [id number]) HEARING 28706-2.61 Diagnos GIBSON,BR 12/15 [place] AID [id number] is: IDGET [facility] FITTING/CH ICD-10- HCS ECKING CM Z46.1 Encount er for fitting and adjustm ent of hearing aid<br/ >with Provide r Comment s: Encount er for fitting and adjustm ent of hearing aid Outpatient 98230-0.61 PODOLYANCH 12/15 [place] Encounter [id number] ,[facility] Procedures Combined list of: 1) Procedures from [facility] Veterans Affairs facilities going back up to the last 18 months, not all VA non-surgical procedures are included; 2) All procedures from the Department of Defense facilities. Procedure Procedure Type Code Date Perfomer Comments Sourc e Bilateral Upper Lid REPAIR BROW 14001 11/13/[address] [facility] Blepharoplasty / DEFECT [facility] Right upper lid, Han's muscle conjunctival resection CE IOL LEFT EYE XCAPSL CTR 26816 08/04/19 JANETHLEONMARV [facility] W[facility] E[facility] CE IOL RIGHT XCAPSL CTRC 90703 07/13/19 YOSSI AREVALO [place] [facility] Social History Combined list of available smoking, tobacco, and other social history from Department of Defense and[facility]eter[facility] Affairs facilities. Social History Type Response Date Comment Source Tobacco smoking VA-TOBACCO NEVER USED 04/25/2021 [facility] [place] [facility] History of tobacco VA-TOBACCO FORMER 07/09/2020 [place] [facility] use USER History of tobacco INPT NO TOBACCO USE 04/17/2019 [facility] [facility] use IN LAST 30 DAYS History of tobacco VA-TOBACCO NEVER USED 02/04/2019 [facility] use History of tobacco INPT NO TOBACCO USE 10/15/2018 [facility] use IN LAST 30 DAYS History of tobacco INPT NO TOBACCO USE 10/13/2018 [facility] use IN LAST 30 DAYS History of tobacco INPT NO TOBACCO USE 09/02/2018 [facility] use IN LAST 30 DAYS History of tobacco INPT NO TOBACCO USE 08/12/2018 [facility] use IN LAST 30 DAYS History of tobacco VA-TOBACCO QUIT 15 01/30/2018 [facility] [place] [facility] use YRS OR MORE History of tobacco INPT NO TOBACCO USE 05/29/2017 [facility] use IN LAST 30 DAYS History of tobacco INPT NO TOBACCO USE 04/25/2017 [facility] use IN LAST 30 DAYS History of tobacco INPT NO TOBACCO USE 01/01/2017 [facility] use IN LAST 30 DAYS History of tobacco FORMER TOBACCO USER 12/21/2016 [facility] use 7Y OR GREATER History of tobacco FORMER TOBACCO USER 09/24/2013 [facility] use 7Y OR GREATER History of tobacco QUIT TOBACCO >7 YEARS 01/01/2009 [place] [place] [facility] use AGO History of tobacco FORMER TOBACCO USER 04/17/2006 [facility] use 7Y OR GREATER This section is an [facility] empty social history section. Plan of Care List of future care activities from [facility] facilities. Additional future care activities may be listed in the Assessment and Plan section. Date/Time Care Activity Care Activity Detail Facility 01/02/2022 AMBULATORY - REHAB MEDICINE AMBULATORY - REHAB [facility] MEDICINE Advance Directives List of completed, amended, or rescinded Advance Directives on record at [facility] facilities. An actual copy of the Directive is not included. Date Advance Directive Provider Source 05/29/2017 CLINICAL WARNING CORNELIO FREITAS [facility] 05/16/2017 ADVANCE DIRECTIVE SERENITY BUENROSTRO [facility] 05/16/2017 ADVANCE DIRECTIVE DISCUSSION SERENITY BUENROSTRO [facility] 05/04/2017 CLINICAL WARNING MAGO DIAMOND [facility] 05/04/2017 CLINICAL WARNING GAEL ROSARIO [facility] 04/26/2017 CLINICAL WARNING JENNIFER DE LEON [facility] 01/01/2017 CLINICAL WARNING AYDE WELLS [facility] 06/09/2004 ADVANCE DIRECTIVE DARYL VILLARREAL [facility] 06/07/2004 ADVANCE DIRECTIVE SHERYL HOLLOWAY [facility]
--- OUTSIDE RECORDS SUMMARY | 2021-12-23 15:52 | XMS_ITS | Encounter Summary ---
:1945 Author Organization Department [facility] rs Address [address] [place] [id number] Support Name Relationship Address Phone FRANCES GANDARA Unavailable [address] [place] [address] FRANCES GANDARA Unavailable [address] [place] [address] FRANCES GANDARA Unavailable [address] [place] [address] FRANCES GANDARA Unavailable [address] [place] [address] Insurance Providers: All historical and current Section Date Range: From patient's date of to the date document was created.This section includes the names of all active insurance providers for the patient. Insurance Type of Plan Start of End of Group Member Insurance Policy P vladislav's Provider Coverage Name Policy Policy Number ID Provider's Hernandez's Relationship Coverage Coverage Telephone Name to Policy Number Hernandez MEDICARE MEDICARE PART Apr 19, PART A [id number] Whit [place] (WNR) (M) A 2007 [id number] [phone] [place] MEDICARE MEDICARE PART Apr 19, PART A [id number] Whit [place] (WNR) (M) A 2007 50A [phone] [place] Selected Encounter This section includes the information on record at [place] for the Encounter. Date/Time Encounter Type Encounter Reason Provider Source Description Dec 31, 2020 OFFICE O/P EST PODIATRY ICD-10-CM DEBRA BROCK 01:40 PM LOW 20-29 MIN M14.671 Charcot's joint, right ankle and foot with Provider Comments: Charcot's Joint, right Ankle and Foot IHE Encounter Template Text not used by [facility] Assessments - Encounter Diagnoses This section includes the primary and secondary diagnoses documented for the Encounter. Date/Time Primary/Secondary Diagnosis Name Provider Source Diagnosis Dec 31, 2020 PRIMARY Charcot's joint, DEBRA BROCK [facility] 02:01 PM right ankle and R HCS foot Dec 31, 2020 SECONDARY Type 2 diabetes w DEBRA BROCK [facility] 02:01 PM oth diabetic R HCS neurological complication Plan of Treatment: Future Appointments (+ 6 months) and Future Tests (+/- 45 days) The Plan of Treatment section includes future care activities for the [facility] [place] [facility] This section includes future appointments and future orders which are active, pending orscheduled.Future Appointments This section includes appointments that were scheduled to occur 6 months from the date of the Encounter, up to a maximum of 20 appointments. The data comes from all [place] treatment facilities. Appointment Date/Time Appointment Type Appointment Facili ty Name Jan 05, 2021 09:30 AM AMBULATORY - MEDICINE [facility] Jan 05, 2021 10:00 AM AMBULATORY - MEDICINE [facility] Jan 05, 2021 10:45 AM AMBULATORY - SURGERY [facility] S Jan 06, 2021 09:30 AM AMBULATORY - REHAB MEDICINE [facility] Jan 10, 2021 01:30 PM AMBULATORY - MEDICINE [facility] Jan 10, 2021 02:30 PM AMBULATORY - MEDICINE [facility] Jan 12, 2021 02:00 PM AMBULATORY - SURGERY [facility] S Jan 27, 2021 03:30 PM AMBULATORY - REHAB MEDICINE [facility] Feb 02, 2021 01:00 PM AMBULATORY - SURGERY [facility] S Feb 09, 2021 12:45 PM AMBULATORY - NONE [facility] Feb 14, 2021 02:00 PM AMBULATORY - SURGERY [facility] S Feb 16, 2021 08:30 AM AMBULATORY - REHAB MEDICINE [facility] Feb 17, 2021 02:30 PM AMBULATORY - NONE [facility] Feb 23, 2021 09:00 AM AMBULATORY - NONE [facility] Feb 23, 2021 01:30 PM AMBULATORY - NONE [facility] Feb 23, 2021 02:30 PM AMBULATORY - MEDICINE [facility] CS Feb 28, 2021 08:00 AM AMBULATORY - NONE [facility] Mar 01, 2021 07:45 AM AMBULATORY - SURGERY [facility] S Mar 01, 2021 08:43 AM AMBULATORY - MEDICINE [facility] Mar 01, 2021 09:44 AM AMBULATORY - NONE [facility] Active, Pending, and Scheduled Orders This section includes a listing of several types of active, pending, and scheduled orders, including clinic medications orders, diagnostic test orders, procedure orders and consult orders; where the start date of the order is 45 days before the date of the Encounter or 45 days after the date of the Encounter. The data comes from all [place] treatment facilities. Test Date/Time Test Type Test Details Facility Name Nov 24, 2020 08:57 Pharmacy - Clinic [facility] PM Medication Order Dec 07, 2020 06:15 Laboratory - COVID-19 DIAGNOSTIC PANEL MIN [facility] AM Chemistry Order (CEPHEID) NASOPHARYNGEAL SWAB WC ONCE Jan 25, 2021 06:15 Laboratory - COVID-19 DIAGNOSTIC PANEL MIN [facility] AM Chemistry Order (CEPHEID) NASOPHARYNGEAL SWAB WC ONCE Lab Results: +/- 30 days of the encounter This section includes the Chemistry and Hematology Lab Results on record with [facility] for the patient. Radiology Reports and Pathology Reports are provided separately, in subsequent sections.Lab Results This section contains the Chemistry/Hematology Results that were resulted 30 days before or 30 daysafter the date of the Encounter. Date/Time Source Result Type Result - Unit Interpretation Reference Range Comment Dec 15, 2020 12:46 PM [facility] BNP Specim en Type: PLASMA No comment enter ed. Ordering Provid er: MAREK URENA Report Released Date/Time: June 22, 2020 11:29 AM Reporting Lab: [facility] [address] [facility] [address] Performing Lab: [facility] [address] [facility] [address] BNP 193 H <99 Dec 15, 2020 12:44 PM [facility] HEMOGLOBIN A1C Specim en Type: BLOOD No comment enter ed. Ordering Provid er: GISELLE MARTINEZ Report Released Date/Time: Aug 11, 2020 11:57 AM Reporting Lab: [facility] [address] [facility] [address] Performing Lab: [facility] [address] [facility] [address] HEMOGLOBIN A1C 9.5 H 4.0-6.0 Dec 15, 2020 12:44 PM [facility] B 12 Specim en Type: PLASMA No comment enter ed. Ordering Provid er: GISELLE MARTINEZ Report Released Date/Time: Aug 11, 2020 12:29 PM Reporting Lab: [facility] [address] [facility] [address] Performing Lab: [facility] [address] [facility] [address] B 12 1116 H 213-816 Dec 15, 2020 12:44 PM [facility] FOLATE Specim en Type: SERUM No comment enter ed. Ordering Provid er: GISELLE MARTINEZ Report Released Date/Time: Aug 11, 2020 12:29 PM Reporting Lab: [facility] [address] [facility] [address] Performing Lab: [facility] [address] [facility] [address] FOLATE 5.3 L >7.0 Dec 15, 2020 12:44 [facility] BASIC METABOLIC Specimen Type: PLASMA PM PANEL+MG No comment enter ed. Ordering Provid er: GISELLE MARTINEZ Report Released Date/Time: Aug 11, 2020 11:57 AM Reporting Lab: [facility] [address] [facility] [address] Performing Lab: [facility] [address] [facility] [address] CREATININE 0.6 L 0.7-1.2 UREA NITROGEN 12 8-26 GLUCOSE 277 H 74-100 SODIUM 137 136-145 POTASSIUM 4.3 3.5-5.1 CHLORIDE 100 98-107 CO2 26 22-29 CALCIUM 9.3 8.4-10.2 MAGNESIUM 2.0 1.6-2.6 ANION GAP 11 5-15 ESTIMATED GFR(eGFR) 132 >60 Dec 15, 2020 12:44 PM [facility] IRON GROUP Specim en Type: SERUM No comment enter ed. Ordering Provid er: GISELLE MARTINEZ Report Released Date/Time: Aug 11, 2020 12:29 PM Reporting Lab: [facility] [address] [facility] [address] Performing Lab: [facility] [address] [facility] [address] IRON 36 L 65-175 TIBC,CALCULATED 296 250-425 FERRITIN 265.0 21.8-274.7 IRON SATURATION 12 L 20-50 TRANSFERRIN 237 163-382 Dec 15, 2020 12:44 PM [facility] CBC & DIFF Specim en Type: BLOOD Comment: Automa carlo Differential Performed Ordering Provid er: GISELLE MARTINEZ Report Released Date/Time: Aug 11, 2020 12:29 PM Reporting Lab: [facility] [address] [facility] [address] Performing Lab: [facility] [address] [facility] [address] WBC 6.29 4.0-11.0 RBC 5.29 4.6-6.2 HGB 14.6 13.5-17.9 HCT 45.6 41-54 MCV 86.2 80-100 MCH 27.6 27-33 MCHC 32.0 32.0-37.5 PLT 297 150-400 MPV 9.9 7.4-10.4 NEUT 56.9 LYMPHS 29.1 MONO 8.1 EOSINO 3.5 BASO 1.1 RDW 14.0 11.5-14.5 ABS LYMPH 1.83 1.0-4.0 ABS MONO 0.51 0.1-1.0 ABS NEUT 3.58 2.0-7.7 ABS EOS 0.22 0-0.5 ABS BASO 0.07 0-0.2 IG(META,MYELO,PRO) 1.3 ABS IMMATURE GRAN 0.08 0-0.1 Dec 15, 2020 12:44 [facility] METHYLMALONIC ACID Specim en Type: SERUM PM No comment enter ed. Ordering Provid er: GISELLE MARTINEZ Report Released Date/Time: Dec 15, 2020 04:33 PM Reporting Lab: [facility] [address] [facility] [address] Performing Lab: [facility] [address] [facility] [address] METHYLMALONIC ACID 97 0-400 Dec 15, 2020 12:44 PM [facility] HOMOCYSTEINE Specim en Type: PLASMA No comment enter ed. Ordering Provid er: GISELLE MARTINEZ Report Released Date/Time: Dec 15, 2020 04:33 PM Reporting Lab: [facility] [address] [facility] [address] Performing Lab: [facility] [address] [facility] [address] HOMOCYSTEINE 9.3 5.1-15.4 Dec 14, 2020 04:25 AM [facility] D-DIMER Specim en Type: PLASMA No comment enter ed. Ordering Provid er: MANISH RAGSDALE Report Released Date/Time: Dec 14, 2020 04:20 AM Reporting Lab: [facility] [address] [facility] [address] Performing Lab: [facility] [address] [facility] [address] D-DIMER 1102 H 0-500 Dec 14, 2020 04:25 AM [facility] PROCALCITONIN Specim en Type: PLASMA No comment enter ed. Ordering Provid er: MANISH RAGSDALE Report Released Date/Time: Dec 14, 2020 04:20 AM Reporting Lab: [facility] [address] Performing Lab: [facility] [address] PROCALCITONIN 0.44 H <0.09 Dec 14, 2020 04:25 [facility] EXTRA GOLD GEL TUBE Speci men Type: SERUM AM No comment enter ed. Ordering Provid er: MANISH RAGSDALE Report Released Date/Time: Dec 14, 2020 04:37 AM Reporting Lab: [facility] [address] Performing Lab: [facility] [address] EXTRA GOLD GEL TUBE RECEIVED Dec 14, 2020 04:25 AM [facility] CBC & DIFF Specim en Type: BLOOD Comment: Automa carlo Differential Performed Ordering Provid er: MANISH RAGSDALE Report Released Date/Time: Dec 14, 2020 04:20 AM Reporting Lab: [facility] [address] Performing Lab: [facility] [address] WBC 6.93 4.0-11.0 RBC 5.26 4.6-6.2 HGB 14.5 13.5-17.9 HCT 44.7 41-54 MCV 85.0 80-100 MCH 27.6 27-33 MCHC 32.4 32.0-37.5 PLT 288 150-400 MPV 9.6 7.4-10.4 NEUT 58.5 LYMPHS 28.4 MONO 8.7 EOSINO 2.3 BASO 1.2 RDW 13.9 11.5-14.5 ABS LYMPH 1.97 1.0-4.0 ABS MONO 0.60 0.1-1.0 ABS NEUT 4.06 2.0-7.7 ABS EOS 0.16 0-0.5 ABS BASO 0.08 0-0.2 IG(META,MYELO,PRO) 0.9 ABS IMMATURE GRAN 0.06 0-0.1 Dec 14, 2020 [facility] COMPREHENSIVE METABOLIC Spec imen Type: PLASMA 04:25 AM PANEL+MG Comment: Automa carlo Differential Performed Ordering Provid er: MANISH RAGSDALE Report Released Date/Time: Dec 14, 2020 04:20 AM Reporting Lab: [facility] [address] Performing Lab: [facility] [address] CREATININE 0.5 L 0.7-1.2 UREA NITROGEN 12 8-26 GLUCOSE 203 H 74-100 SODIUM 135 L 136-145 POTASSIUM 4.2 3.5-5.1 CHLORIDE 100 98-107 CO2 24 22-29 CALCIUM 9.4 8.4-10.2 PROTEIN,TOTAL 7.9 6.0-8.3 ALBUMIN 3.6 3.5-5.2 BILIRUBIN, TOTAL 0.8 0.2-1.2 MAGNESIUM 2.2 1.6-2.6 ANION GAP 11 5-15 ALKALINE PHOSPHATASE 106 40-150 ALT/SGPT 11 <55 AST/SGOT 10 <34 ESTIMATED GFR(eGFR) 163 >60 Dec 14, 2020 04:25 [facility] COVID-19 DIAGNOSTIC Speci men Type: NASOPHARYNGEAL AM PANEL (BIOFIRE) Comment: Yari Borja ([phone]) Ordering Provid er: MANISH RAGSDALE Report Released Date/Time: Dec 14, 2020 04:20 AM Reporting Lab: [facility] [address] Performing Lab: [facility] [address] C PNEUMONIAE PCR NOT DETECTED NOT DETECT ED M PNEUMONIAE PCR NOT DETECTED NOT DETECT ED ADENOVIRUS-PCR NOT DETECTED NOT DETECTED H METAPNEUMOVIR PCR NOT DETECTED NOT DET ECTED H RHIN/ENTEROVIR PCR NOT DETECTED NOT DE TECTED INFLUENZA A PCR NOT DETECTED NOT DETECTE D INFLUENZA B PCR NOT DETECTED NOT DETECTE D RSV PCR NOT DETECTED NOT DETECTED CORONAVIRUS 229E PCR NOT DETECTED NOT DE TECTED CORONAVIRUS HKU1 PCR NOT DETECTED NOT DE TECTED CORONAVIRUS NL63 PCR NOT DETECTED NOT DE TECTED CORONAVIRUS OC43 PCR NOT DETECTED NOT DE TECTED PARAINFLUENZA V1 PCR NOT DETECTED NOT DE TECTED PARAINFLUENZA V2 PCR NOT DETECTED NOT DE TECTED PARAINFLUENZA V3 PCR NOT DETECTED NOT DE TECTED PARAINFLUENZA V4 PCR NOT DETECTED NOT DE TECTED B PARAPERTUS(PD9783) NOT DETECTED NOT DE TECTED B PERTUSSIS(PTXP) NOT DETECTED NOT DETEC CARLO RESPIRATORY INTERP No pathogens detected COVID-19 DIAG (BIOF) NOT DETECTED NOT DE TECTED Social History: Smoking Status (Most current) and Tobacco Use (All prior to encounter date) This section includes the most current, and the historical, smoking and tobacco-related health factors from the [facility] where the Encounter took place.Current Smoking Status This section includes the most current smoking, or tobacco-related health factor, from the [place] facility where the Encounter took place. Date/Time Current Smoking Status Comment Facility July 09, 2020 02:00 PM VA-TOBACCO FORMER USER [facility] Tobacco Use History This section includes a history of the smoking, or tobacco- related health factors, that were collected on or before the date of the Encounter. The data comes from the [place] facility where the Encounter took place. Date/Time Smoking Status/Tobacco Use Comment Facil it July 09, 2020 02:00 PM VA-TOBACCO QUIT 15 YRS OR MORE [facility] Apr 17, 2019 02:39 PM INPT NO TOBACCO USE IN LAST 30 DAYS [facility] Feb 04, 2019 10:37 AM VA-TOBACCO NEVER USED WILLYSasha [facility]IG[facility]ALIEL[facility] Oct 15, 2018 02:43 PM INPT NO TOBACCO USE IN LAST 30 DAYS [facility] Oct 13, 2018 11:30 PM INPT NO TOBACCO USE IN LAST 30 DAYS [facility] Sep 02, 2018 05:50 PM INPT NO TOBACCO USE IN LAST 30 DAYS [facility] Aug 12, 2018 07:28 PM INPT NO TOBACCO USE IN LAST 30 DAYS [facility] Jan 30, 2018 03:28 PM VA-TOBACCO FORMER USER [place] [facility] Jan 30, 2018 03:28 PM VA-TOBACCO QUIT 15 YRS OR MORE [facility] May 29, 2017 04:53 PM INPT NO TOBACCO USE IN LAST 30 DAYS [facility] Apr 25, 2017 10:44 PM INPT NO TOBACCO USE IN LAST 30 DAYS [facility] Jan 01, 2017 06:40 PM INPT NO TOBACCO USE IN LAST 30 DAYS [facility] Dec 21, 2016 02:43 PM FORMER TOBACCO USER 7Y OR GREATER [facility] Sep 24, 2013 08:52 AM FORMER TOBACCO USER 7Y OR GREATER [facility] Advance Directives: All historical and current Section Date Range: From patient's date of to the date document was created. This section includes ALL of a patient's completed or amended [place] Advance and Rescinded Directives. The entries below indicate that a directive exists for the patient, but an actual copy is not included with this document. The data comes from all [facility]. Date Advance Directives Provider Source May 29, 2017 CLINICAL WARNING CORNELIO FREITAS [facility] May 16, 2017 ADVANCE DIRECTIVE CHITRASERENITY [facility] May 16, 2017 ADVANCE DIRECTIVE DISCUSSION [place]ITY [place] [facility] May 04, 2017 CLINICAL WARNING MAGO DIAMOND [facility] May 04, 2017 CLINICAL WARNING GAEL ROSARIO [facility] Apr 26, 2017 CLINICAL WARNING JENNIFER DE LEON [facility] Jan 01, 2017 CLINICAL WARNING AYDE WELLS [facility] Jun 09, 2004 ADVANCE DIRECTIVE DARYL VILLARREAL [facility] Jun 07, 2004 ADVANCE DIRECTIVE SHERYL HOLLOWAY [facility] Radiology Reports: +/- 30 days of the encounter Radiology Reports For cases when an order for radiology services may have been completed prior to the date of the Encounter, the report list includes the Radiology Reports that were completed up to 30 days before date of the Encounter. For cases when an order for radiology services may have been completed after the date of the Encounter, the report list also includes the Radiology Reports that were completed up to 30days after date of the Encounter. The data comes from all [place] treatment facilities. Date/Time Radiology Report Provider Source Dec 14, 2020 05:12 AM CTA CHEST FOR P.E. (P): RADIOLOGY,OUTSIDE [facility] CORBY MOJICA [id number] -[birth year] 7 M SERVICE Exm Date: DEC 14, 2020@05:12 Req Phys: MANISH RAGSDALE Loc: [facility]GENC Y DEPT WALK-IN (Re Img Loc: CT IMAGING Service: Unknown (Case [id number] COMPLETE) CTA CHEST (CT Detailed) CPT: 70282 Contrast Media : Non-ionic Iodinated Reason for Study: hemoptysis Clinical History: [place] IS NOT under investigation for COVID-19 or is COVID-19 negative hemoptysis, history of chronic lung disease Res ponsible provider name and phone number to notify for cr itical findings if other than user placing the order and pager lis carlo below: User placing orders pager: [phone] LAST CREATININE 0.6 L (06/22/20) Report Status: Verified Date Reported: DEC 14, 2020 Date Verified: DEC 14, 2020 Sales Engineering Manager E-Sig: Report: CT angiogram of the chest/CT PE protocol with I V contrast: Comparison: 11/14/2019. Technique: Axial CT of the chest with IV contra st with optimal opacification of the pulmonary arterial system performed. Coronal and sagittal reformations performed.. 1 089 images. DLP (Gy*cm): 226. IV contrast:80 cc of Omnipaque 35 0. Findings: Lungs: The scarring or atelectasis within the p eriphery of the right upper lobe posteriorly image 70/and on im age 89. Numerous groundglass nodules involving the right lung la rgest area measuring 9 mm on image 167/5 with other ground glass nodule opacities on the right on image 149, 167, 196 a nd 214 of series 5 in the right lower lobe and involving the right middle lobe on image 175 and 183 of series 5. Multiple opaciti es and groundglass densities are present more significantly on the left with largest area groundglass density within the superior se gment of left lower lobe measuring about 5.5 cm in average di mension. Additional groundglass opacities within the mor e inferior left lower lobe with some areas of more coarse linea r density within the left lower lobe compatible with areas of at electasis. Atelectasis also present within the lingula inf eriorly and there are groundglass opacities within the left upper lobe for example image 119 and 133 of series 5. No pleural effus ion or pneumothorax. Airways appear patent. Mediastinum and eliecer: Diffuse esophageal wall t hickening is suggested similar to the prior exam. Right prec arinal lymphadenopathy measuring 11 mm decrease in ivet rt axis dimension from the prior examination. Other smaller media stinal and hilar lymph nodes-nonpathologically sized. Patient is status post median sternotomy. Vasculature: Main pulmonary artery measures 32 mm in caliber-unchanged. No filling defects within pu lmonary arteries. Bones: No suspicious osseous lesions. Upper abdomen: Unremarkable. Impression: No acute pulmonary embolus. Multiple groundglass opacities throughout both lungs most confluent within the superior segment left lowe r lobe. Findings are compatible with an acute inflammatory or in fectious process to include viral pneumonia versus atypical pneu monias. Diffuse esophageal thickening similar to the pr ior exam. This can be seen with chronic esophagitis in the correct clinical setting. Mild mediastinal adenopathy which may be reacti ve. READING PHYSICIAN: Keron Francisco M.D. [phone] 12/14/2020 6:55 EDT [facility] [phone] (For Medical Practitioner Use Only ) [address], [place] [address], [address] [place] [address] Attention Patients / Veterans: If you have ques tions or concerns about these test results, please contact your [facility] provider or primary care team. Primary Interpreting Staff: RADIOLOGY,OUTSIDE SERVICE, Staff Physician / Pathology Reports: +/- 30 days of the encounter Pathology Reports For cases when an order for pathology services may have been completed prior to the date of the Encounter, the report list includes the Pathology Reports that were completed up to 30 days before date of the Encounter. For cases when an order for pathology services may have been completed after the date of the Encounter, the report list also includes the Pathology Reports that were completed up to 30days after date of the Encounter. The data comes from all [place] treatment facilities. Date/Time Pathology Report Provider Source Dec 09, 2020 04:11 PM LR [facility] Reporting Lab: [facility] [CLIA# [id number]] [place] [address] Accession [UID]: [id number] [[id number]] Receiv ed: Dec 09, 2020@16:11 Collection sample: WOUND Collection date: Nov 16:11 Provider: FRANKLIN RICHEY Comment on specimen: Right plantar foot, SWAB RE CEIVED Test(s) ordered: GRAM STAIN............ ........ completed: Dec 09, 2020 22:11 CULTURE & SUSCEPTIBILITY...... completed: Nov 202020 * BACTERIOLOGY FINAL REPORT => Dec 12, 2020 14:4 0 TECH CODE: [id number] GRAM STAIN: DIRECT SMEAR of specimen before cult uring shows: 1+ PMNS 1+ MONONUCLEAR CELLS 4+ GRAM POSITIVE COCCI IN PAIRS SUGGESTIVE OF STAPH, STREP, OR ENTEROCOCCUS 3+ SMALL GRAM POSITIVE RODS 4+ GRAM NEGATIVE RODS CULTURE PENDING CULTURE RESULTS: 1. STREPTOCOCCUS MITIS/ STREPTO COCCUS ORALIS - Quantity: 4+ Comment: No susceptibility testing performed. 2. ESCHERICHIA COLI - Quantity: 3+ 3. STREPTOCOCCUS ANGINOSUS - Quantity: 4+ Comment: No susceptibility testing performed. 4. OTHER ORGANISMS PRESENT IN LOWER NUMBERS ANTIBIOTIC SUSCEPTIBILITY TEST RESULTS: 2. ESCHERICHIA COLI : AMP/SULBACT................... I PIP-TAZO...................... S CEFTAZIDIME................... S CEFTRIAXONE................... S IMIPENEM...................... S ERTAPENEM..................... S GENTAMICIN.................... S CIPROFLOXACIN................. S TRIMETH/SULFA................. R Bacteriology Remark(s): THIS REPORT IS FINAL =--=--=--=--=--=--=--=--=--=--=--=--=--= --=--=--=--=--=--=--=--=--=--=--=--=-- Performing Laboratory: Bacteriology Report Performed By: [facility] [CLIA# [id number]] [place] [address] Encounter Notes: All associated encounter notes This section contains the clinical notes associated to the Encounter. 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 Hemoglobin A1c 9.5% BNP 193 Discussed elevated hemoglobin being risk factor for infection and delayed healing. Corby is adamant that he is work ing very hard to try to keep his blood sugar down. He also continues to have an open wo und, unable to heal at even though he continues to follo w with the wound clinic. He understands the risk of performing surgery elevated hemoglobin A1c and c ontinued ulceration with infection and healing. Corby still wishes to proc eed with surgery. Reviewed our surgery plan: Right foot Charcot reconstruction, internal be p lacement of medial lateral column. Gastrocnemius muscle recession. He will be admitted after surgery for observatio n for 1 to 2 days. Corby has home nursing helping with wound care, A DLs/bathing. He is working on establishing residence [facility] single floor. He is interested in a wheelchair, I will place a n order for this today. SUBJECTIVE: CORBY MOJICA PRERAN is a 74 year old MALE prese nts to the [facility]. Presents for pre-op educatio n of right lower extremity Charcot neuro-arthropathy deformity with ulceration. Previous large ulcera tion of the right lower extremity was near healed, now re-opened to previous large margins. Performing wound cares daily. Using [employer] to offlo ad the site at all times. He lives at home, has family in the area ([place]) that can help with supporting him during and after surgery. He had a right low er extremity angiogram to prepare for surgical intervention. He angela s been following with the wound clinic to assist in healing the right foot ulceration. A home health care nurse is also been assigned to assist in his cares. OBJECTIVE: EXAMINATION: GENERAL: Alert and oriented VASCULAR: Palpable DP and PT pulses on the right foot NEUROLOGICAL: Loss of sensation to the right lower extremity MUSCULOSKELETAL: On physical examination of the right foot, there is a rigid rocker bottom foot deformity. Minimal motion is obtained in th e midfoot with attempts to reduce. Ankle equinus is present and with attemp ts at stressing in clinic did find that some reduction of the calcaneal declin ation was present. DERMATOLOGICAL: Right plantar foot with 1.5 x 1 cm full-thickness ulceration and apex of rocker bottom deformity. /vinicio/ DEBRA BROCK DPM STAFF RIVET FLUNKY Signed: 12/31/2020 14:01 04/29/2021 ADDENDUM STATUS: COMPLETED Received patient's [facility] podiatry note (Dr. Cardenas) They are planning on the pro cedure Plantar planng with rotational flap closure for wound treatment Patient saids bone shaved d own as an alternative to [facility] Brock - Please provide advise to patient t his would be an adequate alternative procedure option or not. Pt's aware that I'm sending you this question. Aside --Patient was seen by PCP for pre- op this and has a positive stress test and is pending cardiology f/u at this time. Thanks /vinicio/ Giselle Martinez MD Staff Physician Signed: 04/29/2021 16:46 Receipt Acknowledged By: 05/02/2021 07:19 /vinicio/ DEBRA BROCK DPM STAFF RIVET FLUNKY 05/02/2021 ADDENDUM STATUS: COMPLETED If pursues surgery he would need to abide by the post op instructions, weight bearing restrictions and should have very tight glycemic control (last hgba1c of 8.0%). Any walking on a plantar foot f lap would likely lead to flap failure, and potentionaly le ad to exposure of surgically resected bone, opening door for osteomyelitis. 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 /vinicio/ DEBRA BROCK DPM STAFF RIVET FLUNKY Signed: 05/02/2021 07:43 Receipt Acknowledged By: * AWAITING SIGNATURE * GISELLE MARTINEZ
--- OUTSIDE RECORDS SUMMARY | 2021-12-23 15:53 | XMS_ITS | Encounter Summary ---
:1945 Author Organization [facility] Address [address] [place] [id number] Support Name Relationship Address Phone FRANCES GANDARA Unavailable [address] [place] [address] FRANCES GANDARA Unavailable [address] [place] [address] FRANCES GANDARA Unavailable [address] [place] [address] FRANCES GANDARA Unavailable [address] [place] [address] Insurance Providers: All historical and current Section Date Range: From patient's date of to the date document was created.This section includes the names of all active insurance providers for the patient. Insurance Type of Plan Start of End of Group Member Insurance Policy P breannajose's Provider Coverage Name Policy Policy Number ID Provider's Hernandez's Relationship Coverage Coverage Telephone Name to Policy Number Hernandez MEDICARE MEDICARE PART Apr 19, PART A [id number] Whit MOJICA (WNR) (M) A 2007 [id number] [phone] JESSICA MEDICARE MEDICARE PART Apr 19, PART A [id number] Whit MOJICA (WNR) (M) A 2007 [id number] [phone] JESSICA Selected Encounter This section includes the information on record at NE for the Encounter. Date/Time Encounter Type Encounter Description Reason Provider Source Dec 24, 2020 10:32 Outpatient Encounter TELEPHONE/SURGERY AM IHE Encounter Template Text not used by NE Plan of Treatment: Future Appointments (+ 6 months) and Future Tests (+/- 45 days) The Plan of Treatment section includes future care activities for the patient from all [facility] treatment[facility]ilities. This section includes future appointments and future orders which are active, pending orscheduled.Future Appointments This section includes appointments that were scheduled to occur 6 months from the date of the Encounter, up to a maximum of 20 appointments. The data comes from all [facility]. Appointment Date/Time Appointment Type Appointment Facili ty Name Dec 31, 2020 01:40 PM AMBULATORY - SURGERY [facility] Jan 05, 2021 09:30 AM AMBULATORY - MEDICINE [facility] Jan 05, 2021 10:00 AM AMBULATORY - MEDICINE [facility] Jan 05, 2021 10:45 AM AMBULATORY - SURGERY [facility] Jan 06, 2021 09:30 AM AMBULATORY - REHAB MEDICINE [facility] Jan 10, 2021 01:30 PM AMBULATORY - MEDICINE [facility] Jan 10, 2021 02:30 PM AMBULATORY - MEDICINE [facility] Jan 12, 2021 02:00 PM AMBULATORY - SURGERY [facility] Jan 27, 2021 03:30 PM AMBULATORY - REHAB MEDICINE [facility] Feb 02, 2021 01:00 PM AMBULATORY - SURGERY [facility] Feb 09, 2021 12:45 PM AMBULATORY - NONE [facility] Feb 14, 2021 02:00 PM AMBULATORY - SURGERY [facility] Feb 16, 2021 08:30 AM AMBULATORY - REHAB MEDICINE [facility] Feb 17, 2021 02:30 PM AMBULATORY - NONE [facility] Feb 23, 2021 09:00 AM AMBULATORY - NONE [facility] Feb 23, 2021 01:30 PM AMBULATORY - NONE [facility] Feb 23, 2021 02:30 PM AMBULATORY - MEDICINE [facility] Feb 28, 2021 08:00 AM AMBULATORY - NONE [facility] Mar 01, 2021 07:45 AM AMBULATORY - SURGERY [facility] Mar 01, 2021 08:43 AM AMBULATORY - MEDICINE [facility] Active, Pending, and Scheduled Orders This section includes a listing of several types of active, pending, and scheduled orders, including clinic medications orders, diagnostic test orders, procedure orders and consult orders; where the start date of the order is 45 days before the date of the Encounter or 45 days after the date of the Encounter. The data comes from all [facility]. Test Date/Time Test Type Test Details Facility Name Nov 24, 2020 08:57 Pharmacy - Clinic [facility] PM Medication Order Dec 07, 2020 06:15 Laboratory - COVID-[address] [facility] AM Chemistry Order (CEPHEID) NASOPHARYNGEAL SWAB WC ONCE Jan 25, 2021 06:15 Laboratory - COVID-[address] [facility] AM Chemistry Order (CEPHEID) NASOPHARYNGEAL SWAB WC ONCE Lab Results: +/- 30 days of the encounter This section includes the Chemistry and Hematology Lab Results on record with NE for the patient. Radiology Reports and Pathology Reports are provided separately, in subsequent sections.Lab Results This section contains the Chemistry/Hematology Results that were resulted 30 days before or 30 daysafter the date of the Encounter. Date/Time Source Result Type Result - Unit Interpretation Reference Range Comment Dec 15, 2020 12:46 PM [facility] BNP Specim en Type: PLASMA No comment enter ed. Ordering Provid er: MAREK URENA Report Released Date/Time: June 22, 2020 11:29 AM Reporting Lab: [facility] [address] [facility] [phone] Performing Lab: [facility] [address] [facility] [address] BNP 193 H <99 Dec 15, 2020 12:44 PM [facility] HEMOGLOBIN A1C Specim en Type: BLOOD No comment enter ed. Ordering Provid er: CARIDAD DENNIS Report Released Date/Time: Aug 11, 2020 11:57 AM Reporting Lab: [facility] [address] [facility] [address] Performing Lab: [facility] [address] [facility] [address] HEMOGLOBIN A1C 9.5 H 4.0-6.0 Dec 15, 2020 12:44 PM [facility] B 12 Specim en Type: PLASMA No comment enter ed. Ordering Provid er: CARIDAD DENNIS Report Released Date/Time: Aug 11, 2020 12:29 PM Reporting Lab: [facility] [address] [facility] [address] Performing Lab: [facility] [address] [facility] [address] B 12 1116 H 213-816 Dec 15, 2020 12:44 PM [facility] FOLATE Specim en Type: SERUM No comment enter ed. Ordering Provid er: CARIDAD DENNIS Report Released Date/Time: Aug 11, 2020 12:29 PM Reporting Lab: [facility] [address] [facility] [address] Performing Lab: [facility] [address] [facility] [address] FOLATE 5.3 L >7.0 Dec 15, 2020 12:44 [facility] BASIC METABOLIC Specimen Type: PLASMA PM PANEL+MG No comment enter ed. Ordering Provid er: CARIDAD DENNIS Report Released Date/Time: Aug 11, 2020 11:57 AM Reporting Lab: [facility] [address] [facility] [address] Performing Lab: [facility] [address] CREATININE 0.6 L 0.7-1.2 UREA NITROGEN 12 8-26 GLUCOSE 277 H 74-100 SODIUM 137 136-145 POTASSIUM 4.3 3.5-5.1 CHLORIDE 100 98-107 CO2 26 22-29 CALCIUM 9.3 8.4-10.2 MAGNESIUM 2.0 1.6-2.6 ANION GAP 11 5-15 ESTIMATED GFR(eGFR) 132 >60 Dec 15, 2020 12:44 PM [facility] IRON GROUP Specim en Type: SERUM No comment enter ed. Ordering Provid er: CARIDAD DENNIS Report Released Date/Time: Aug 11, 2020 12:29 PM Reporting Lab: [facility] [address] [facility] [address] Performing Lab: [facility] [address] IRON 36 L 65-175 TIBC,CALCULATED 296 250-425 FERRITIN 265.0 21.8-274.7 IRON SATURATION 12 L 20-50 TRANSFERRIN 237 163-382 Dec 15, 2020 12:44 PM [facility] CBC & DIFF Specim en Type: BLOOD Comment: Automa carlo Differential Performed Ordering Provid er: CARIDAD DENNIS Report Released Date/Time: Aug 11, 2020 12:29 PM Reporting Lab: [facility] [address] [facility] [address] Performing Lab: [facility] [address] WBC 6.29 4.0-11.0 RBC 5.29 4.6-6.2 HGB [...] GRAN 0.08 0-0.1 Dec 15, 2020 12:44 [facility] METHYLMALONIC ACID Specim en Type: SERUM PM No comment enter ed. Ordering Provid er: CARIDAD DENNIS Report Released Date/Time: Dec 15, 2020 04:33 PM Reporting Lab: [facility] [address] [facility] [address] Performing Lab: [facility] [address] [facility] [address] METHYLMALONIC ACID 97 0-400 Dec 15, 2020 12:44 PM [facility] HOMOCYSTEINE Specim en Type: PLASMA No comment enter ed. Ordering Provid er: CARIDAD DENNIS Report Released Date/Time: Dec 15, 2020 04:33 PM Reporting Lab: [facility] [address] [facility] [address] Performing Lab: [facility] [address] [facility] [address] HOMOCYSTEINE 9.3 5.1-15.4 Dec 14, 2020 04:25 AM [facility] D-DIMER Specim en Type: PLASMA No comment enter ed. Ordering Provid er: MANISH RAGSDALE Report Released Date/Time: Dec 14, 2020 04:20 AM Reporting Lab: [facility] [address] [facility] [address] Performing Lab: [facility] [address] [facility] [address] D-DIMER 1102 H 0-500 Dec 14, 2020 04:25 AM [facility] PROCALCITONIN Specim en Type: PLASMA No comment enter ed. Ordering Provid er: MANISH RAGSDALE Report Released Date/Time: Dec 14, 2020 04:20 AM Reporting Lab: [facility] [address] [facility] [address] Performing Lab: [facility] [address] [facility] [address] PROCALCITONIN 0.44 H <0.09 Dec 14, 2020 04:25 [facility] EXTRA GOLD GEL TUBE Speci men Type: SERUM AM No comment enter ed. Ordering Provid er: MANISH RAGSDALE Report Released Date/Time: Dec 14, 2020 04:37 AM Reporting Lab: [facility] [address] [facility] [address] Performing Lab: [facility] [address] [facility] [address] EXTRA GOLD GEL TUBE RECEIVED Dec 14, 2020 04:25 AM [facility] CBC & DIFF Specim en Type: BLOOD Comment: Automa carlo Differential Performed Ordering Provid er: MANISH RAGSDALE Report Released Date/Time: Dec 14, 2020 04:20 AM Reporting Lab: [facility] [address] [facility] [address] Performing Lab: [facility] [address] [facility] [address] WBC 6.93 4.0-11.0 RBC 5.26 4.6-6.2 HGB [...] IMMATURE GRAN 0.06 0-0.1 Dec 14, 2020 [facility] COMPREHENSIVE METABOLIC Spec imen Type: PLASMA 04:25 AM PANEL+MG Comment: Automa carlo Differential Performed Ordering Provid er: MANISH RAGSDALE Report Released Date/Time: Dec 14, 2020 04:20 AM Reporting Lab: [facility] [address] [facility] [address] Performing Lab: [facility] [address] [facility] [address] CREATININE 0.5 L 0.7-1.2 UREA NITROGEN 12 8-26 GLUCOSE 203 H 74-100 SODIUM 135 L 136-145 POTASSIUM 4.2 3.5-5.1 CHLORIDE 100 98-107 CO2 24 22-29 CALCIUM 9.4 8.4-10.2 PROTEIN,TOTAL 7.9 6.0-8.3 ALBUMIN 3.6 3.5-5.2 BILIRUBIN, TOTAL 0.8 0.2-1.2 MAGNESIUM 2.2 1.6-2.6 ANION GAP 11 5-15 ALKALINE PHOSPHATASE 106 40-150 ALT/SGPT 11 <55 AST/SGOT 10 <34 ESTIMATED GFR(eGFR) 163 >60 Dec 14, 2020 04:25 [facility] COVID-19 DIAGNOSTIC Speci men Type: NASOPHARYNGEAL AM PANEL (BIOFIRE) Comment: Biofir e Torch (968) Ordering Provid er: MANISH RAGSDALE Report Released Date/Time: Dec 14, 2020 04:20 AM Reporting Lab: [facility] [address] Performing Lab: [facility] [address] C PNEUMONIAE PCR NOT DETECTED NOT DETECT [...] PCR NOT DETECTED NOT DE TECTED B PARAPERTUS(WQ8130) NOT DETECTED NOT DE TECTED B PERTUSSIS(PTXP) NOT DETECTED NOT DETEC CARLO RESPIRATORY INTERP No pathogens detected COVID-19 DIAG (BIOF) NOT DETECTED NOT DE TECTED Social History: Smoking Status (Most current) and Tobacco Use (All prior to encounter date) This section includes the most current, and the historical, smoking and tobacco-related health factors from the NE facility where the Encounter took place.Current Smoking Status This section includes the most current smoking, or tobacco-related health factor, from the [facility] where the Encounter took place. Date/Time Current Smoking Status Comment Facility July 09, 2020 02:00 PM VA-TOBACCO FORMER USER [facility] Tobacco Use History This section includes a history of the smoking, or tobacco- related health factors, that were collected on or before the date of the Encounter. The data comes from the [facility] where the Encounter took place. Date/Time Smoking Status/Tobacco Use Comment [facility] it July 09, 2020 02:00 PM VA-TOBACCO QUIT 15 YRS OR MORE [facility] Apr 17, 2019 02:39 PM INPT NO TOBACCO USE IN LAST 30 DAYS [facility] Feb 04, 2019 10:37 AM NE-TOBACCO NEVER USED TROY BLANTON [facility] Oct 15, 2018 02:43 PM INPT NO TOBACCO USE IN LAST 30 DAYS [facility] Oct 13, 2018 11:30 PM INPT NO TOBACCO USE IN LAST 30 DAYS [facility] Sep 02, 2018 05:50 PM INPT NO TOBACCO USE IN LAST 30 DAYS [facility] Aug 12, 2018 07:28 PM INPT NO TOBACCO USE IN LAST 30 DAYS [facility] Jan 30, 2018 03:28 PM VA-TOBACCO FORMER USER [facility] Jan 30, 2018 03:28 PM NE-TOBACCO QUIT 15 YRS OR MORE [facility] May 29, 2017 04:53 PM INPT NO TOBACCO USE IN LAST 30 DAYS [facility] Apr 25, 2017 10:44 PM INPT NO TOBACCO USE IN LAST 30 DAYS [facility] Jan 01, 2017 06:40 PM INPT NO TOBACCO USE IN LAST 30 DAYS [facility] Dec 21, 2016 02:43 PM FORMER TOBACCO USER 7Y OR GREATER [facility] Sep 24, 2013 08:52 AM FORMER TOBACCO USER 7Y OR GREATER [facility] Advance Directives: All historical and current Section Date Range: From patient's date of to the date document was created. This section includes ALL of a patient's completed or amended NE Advance and Rescinded Directives. The entries below indicate that a directive exists for the patient, but an actual copy is not included with this document. The data comes from all [facility]. Date Advance Directives Provider Source May 29, 2017 CLINICAL WARNING CORNELIO FREITAS [facility] May 16, 2017 ADVANCE DIRECTIVE SERENITY BUENROSTRO [facility] May 16, 2017 ADVANCE DIRECTIVE DISCUSSION SERENITY [place]STRO [place] [facility] May 04, 2017 CLINICAL WARNING MAGO DIAMOND [facility] May 04, 2017 CLINICAL WARNING GAEL ROSARIO [facility] Apr 26, 2017 CLINICAL WARNING JENNIFER DE LEON [facility] Jan 01, 2017 CLINICAL WARNING AYDE WELLS [facility] Jun 09, 2004 ADVANCE DIRECTIVE DARYL VILLARREAL [facility] Jun 07, 2004 ADVANCE DIRECTIVE AMIESHERYL ANN [facility] Radiology Reports: +/- 30 days of [...] the Encounter. The data comes from all [place] treatment facilities. Date/Time Radiology Report Provider Source Dec 14, 2020 05:12 AM CTA CHEST FOR P.E. (P): RADIOLOGY,OUTSIDE [facility] JESSICA MOJICA [id number] -[birth year] 7 M SERVICE Exm Date: DEC 14, 2020@05:12 Req Phys: MANISH RAGSDALE Loc: [facility] WALK-IN (Re Img Loc: CT IMAGING Service: Unknown (Case [id number] COMPLETE) CTA CHEST (CT Detailed) CPT: 26931 Contrast Media : Non-ionic Iodinated Reason for Study: hemoptysis Clinical History: IS NOT under investigation for COVID-19 or is COVID-19 negative hemoptysis, history of chronic lung disease Res ponsible provider name and phone number to notify for cr itical findings if other than user placing the order and pager lis carlo below: User placing orders pager: [phone] LAST CREATININE 0.6 L (06/22/20) Report Status: Verified Date Reported: DEC 14, 2020 Date Verified: DEC 14, 2020 Senior Loan Officer E-Sig: Report: CT angiogram of the chest/CT [...] ve. READING PHYSICIAN: Keron Francisco M.D. [phone] 12/14/2020 6:55 EDT [facility] [employer] [phone] (For Medical Practitioner Use Only ) [address], [facility] [address], [address] [place] [address] Attention Patients / Veterans: If you have ques tions or concerns about these test results, please contact your [facility] provider or primary care team. Primary Interpreting [...] the Encounter. The data comes from all [place] treatment facilities. Date/Time Pathology Report Provider Source Dec 09, 2020 04:11 PM LR MICROBIOLOGY REPORT: [facility] Reporting Lab: [facility] [CLIA# [id number]] [place] [address] Accession [UID]: [id number] [[id number]] Receiv ed: Dec 09, 2020@16:11 Collection sample: WOUND Collection date: Nov 16:11 Provider: FRANKLIN RICHEY Comment on specimen: Right plantar foot, SWAB RE CEIVED Test(s) ordered: GRAM STAIN............ ........ completed: Dec 09, 2020 22:11 CULTURE & SUSCEPTIBILITY...... completed: Nov 202020 * BACTERIOLOGY FINAL REPORT => Dec 12, 2020 14:4 0 TECH CODE: [id number] GRAM STAIN: DIRECT SMEAR of specimen before [...] --=--=--=--=--=--=--=--=--=--=--=--=-- Performing Laboratory: Bacteriology Report Performed By: [facility] [CLIA# [id number]] [place] [address] Encounter Notes: All associated encounter notes This section contains the clinical notes associated to the Encounter. Date/Time Encounter Note(s) Provider Source Dec 24, 2020 10:32 AM REPORT OF CONTACT: ROSEANN MYRICK [facility] LOCAL TITLE: PATIENT CONTACT NOTE STANDARD TITLE: REPORT OF CONTACT DATE OF NOTE: DEC 24, 2020@10:32 ENTRY DATE: DEC 24, 2020@10:32:43 AUTHOR: ROSEANN MYRICK EXP COSIGNER: URGENCY: STATUS: COMPLETED Patient contact Name of Alfred: YUNIORJESSICA Name/Relationship of Contact if other than Veter an: Date & Time of Contact: Dec@10:32 Type of Contact: Telephone Reason for Contact: Alfred left a message for the automobile service writer, with no f urther information. Installer Helper returned the call and left the number to return our call. /vinicio/ ROSEANN MYRICK ADVANCED MSA Signed: 12/24/2020 10:34
--- OUTSIDE RECORDS SUMMARY | 2021-12-23 15:53 | XMS_ITS | Encounter Summary ---
:1945 Author Organization [facility] Address [address] [place] [id number] Support Name Relationship Address Phone FRANCES GANDARA Unavailable [address] [place] [address] FRANCES GANDARA Unavailable [address] [place] [address] FRANCES GANDARA Unavailable [address] [place] [address] FRANCES GANDARA Unavailable [address] [place] [address] Insurance Providers: All historical and current Section [...] MEDICARE MEDICARE PART Apr 19, PART A [id number] Whit MOJICA (WNR) (M) A 2007 50A [phone] JESSICA MEDICARE MEDICARE PART Apr 19, PART A [id number] Whit [place] (WNR) (M) A 2007 [id number] [phone] JESSICA Selected Encounter This section includes the information on record at [place] for the Encounter. Date/Time Encounter Type Encounter Description Reason Provider Source Dec 27, 2020 11:03 Outpatient Encounter PODIATRY AM IHE Encounter Template Text not used by [place] Plan of Treatment: Future Appointments (+ 6 [...] 20 appointments. The data comes from all [facility]. Appointment Date/Time Appointment Type Appointment Facili ty Name Dec 31, 2020 01:40 PM AMBULATORY - SURGERY [facility] Jan 05, 2021 09:30 AM AMBULATORY - MEDICINE [facility] Jan 05, 2021 10:00 AM AMBULATORY - MEDICINE [facility] Jan 05, 2021 10:45 AM AMBULATORY - SURGERY [facility] Jan 06, 2021 09:30 AM AMBULATORY - REHAB MEDICINE [facility] Jan 10, 2021 01:30 PM AMBULATORY - MEDICINE [facility] Jan 10, 2021 02:30 PM AMBULATORY - MEDICINE [facility] Jan 12, 2021 02:00 PM AMBULATORY - SURGERY [facility] Jan 27, 2021 03:30 PM AMBULATORY - REHAB MEDICINE [facility] Feb 02, 2021 01:00 PM AMBULATORY - SURGERY [facility] Feb 09, 2021 12:45 PM AMBULATORY - NONE [facility] Feb 14, 2021 02:00 PM AMBULATORY - SURGERY [facility] Feb 16, 2021 08:30 AM AMBULATORY - REHAB MEDICINE [facility] Feb 17, 2021 02:30 PM AMBULATORY - NONE [facility] Feb 23, 2021 09:00 AM AMBULATORY - NONE [facility] Feb 23, 2021 01:30 PM AMBULATORY - NONE [facility] Feb 23, 2021 02:30 PM AMBULATORY - MEDICINE [facility] Feb 28, 2021 08:00 AM AMBULATORY - NONE [facility] Mar 01, 2021 07:45 AM AMBULATORY - SURGERY [facility] Mar 01, 2021 08:43 AM AMBULATORY - MEDICINE [facility] Active, Pending, and Scheduled Orders This section includes a listing of several types of active, pending, and scheduled orders, including clinic medications orders, diagnostic test orders, procedure orders and consult orders; where the start date of the order is 45 days before the date of the Encounter or 45 days after the date of the Encounter. The data comes from all [facility]. Test Date/Time Test Type Test Details Facility Name Nov 24, 2020 08:57 Pharmacy - Clinic [facility] PM Medication Order Dec 07, 2020 06:15 Laboratory - COVID-19 DIAGNOSTIC PANEL [facility] AM Chemistry Order (CEPHEID) NASOPHARYNGEAL SWAB WC ONCE Jan 25, 2021 06:15 Laboratory - COVID-19 DIAGNOSTIC PANEL [facility] AM Chemistry Order (CEPHEID) NASOPHARYNGEAL SWAB WC ONCE Lab Results: +/- 30 days of the encounter This section includes the Chemistry and Hematology Lab Results on record with [place] for the patient. Radiology Reports and Pathology Reports are provided separately, in subsequent sections.Lab Results This section contains the Chemistry/Hematology Results that were resulted 30 days before or 30 daysafter the date of the Encounter. Date/Time Source Result Type Result - Unit Interpretation Reference Range Comment Dec 15, 2020 12:46 PM [facility] BNP Specim en Type: PLASMA No comment enter ed. Ordering Provid er: MAREK URENA Report Released Date/Time: June 22, 2020 11:29 AM Reporting Lab: [facility] [address] [facility] [address] Performing Lab: [facility] [address] [facility] [address] BNP 193 H <99 Dec 15, 2020 12:44 PM [facility] HEMOGLOBIN A1C Specim en Type: BLOOD No comment enter ed. Ordering Provid er: CARIDAD DENNIS Report Released Date/Time: Aug 11, 2020 11:57 AM Reporting Lab: [facility] [address] [facility] [address] Performing Lab: [facility] [address] [facility] [address] HEMOGLOBIN A1C 9.5 H 4.0-6.0 Dec 15, 2020 12:44 PM [facility] B 12 Specim en Type: PLASMA No comment enter ed. Ordering Provid er: CARIDAD DENNIS Report Released Date/Time: Aug 11, 2020 12:29 PM Reporting Lab: [facility] [address] [facility] [address] Performing Lab: [facility] [address] [facility] [address] B 12 1116 H 213-816 Dec 15, 2020 12:44 PM [facility] FOLATE Specim en Type: SERUM No comment enter ed. Ordering Provid er: CARIDAD DENNIS Report Released Date/Time: Aug 11, 2020 12:29 PM Reporting Lab: [facility] [address] [facility] [address] Performing Lab: [facility] [address] [facility] [address] FOLATE 5.3 L >7.0 Dec 15, 2020 12:44 PM [facility] IRON GROUP Specim en Type: SERUM No comment enter ed. Ordering Provid er: CARIDAD DENNIS Report Released Date/Time: Aug 11, 2020 12:29 PM Reporting Lab: [facility] [address] [facility] [address] Performing Lab: [facility] [address] IRON 36 L 65-175 TIBC,CALCULATED 296 250-425 FERRITIN 265.0 21.8-274.7 IRON SATURATION 12 L 20-50 TRANSFERRIN 237 163-382 Dec 15, 2020 12:44 [facility] BASIC METABOLIC Specimen Type: PLASMA PM PANEL+MG No comment enter ed. Ordering Provid er: CARIDAD DENNIS Report Released Date/Time: Aug 11, 2020 11:57 AM Reporting Lab: [facility] [address] Performing Lab: [facility] [address] CREATININE 0.6 L 0.7-1.2 UREA NITROGEN 12 8-26 GLUCOSE 277 H 74-100 SODIUM 137 136-145 POTASSIUM 4.3 3.5-5.1 CHLORIDE 100 98-107 CO2 26 22-29 CALCIUM 9.3 8.4-10.2 MAGNESIUM 2.0 1.6-2.6 ANION GAP 11 5-15 ESTIMATED GFR(eGFR) 132 >60 Dec 15, 2020 12:44 PM [facility] CBC & DIFF Specim en Type: BLOOD Comment: Automa carlo Differential Performed Ordering Provid er: CARIDAD DENNIS Report Released Date/Time: Aug 11, 2020 12:29 PM Reporting Lab: [facility] [address] [facility] [address] Performing Lab: [facility] [address] WBC 6.29 4.0-11.0 RBC 5.29 4.6-6.2 HGB [...] GRAN 0.08 0-0.1 Dec 15, 2020 12:44 [facility] METHYLMALONIC ACID Specim en Type: SERUM PM No comment enter ed. Ordering Provid er: CARIDAD DENNIS Report Released Date/Time: Dec 15, 2020 04:33 PM Reporting Lab: [facility] [address] [facility] [address] Performing Lab: [facility] [address] [facility] [address] METHYLMALONIC ACID 97 0-400 Dec 15, 2020 12:44 PM [facility] HOMOCYSTEINE Specim en Type: PLASMA No comment enter ed. Ordering Provid er: CARIDAD DENNIS Report Released Date/Time: Dec 15, 2020 04:33 PM Reporting Lab: [facility] [address] [facility] [address] Performing Lab: [facility] [address] [facility] [address] HOMOCYSTEINE 9.3 5.1-15.4 Dec 14, 2020 04:25 AM [facility] D-DIMER Specim en Type: PLASMA No comment enter ed. Ordering Provid er: MANISH RAGSDALE Report Released Date/Time: Dec 14, 2020 04:20 AM Reporting Lab: [facility] [address] [facility] [address] Performing Lab: [facility] [address] [facility] [address] D-DIMER 1102 H 0-500 Dec 14, 2020 04:25 AM [facility] PROCALCITONIN Specim en Type: PLASMA No comment enter ed. Ordering Provid er: MANISH RAGSDALE Report Released Date/Time: Dec 14, 2020 04:20 AM Reporting Lab: [facility] [address] [facility] [address] Performing Lab: [facility] [address] [facility] [address] PROCALCITONIN 0.44 H <0.09 Dec 14, 2020 04:25 [facility] EXTRA GOLD GEL TUBE Speci men Type: SERUM AM No comment enter ed. Ordering Provid er: MANISH RAGSDALE Report Released Date/Time: Dec 14, 2020 04:37 AM Reporting Lab: [facility] [address] [facility] [address] Performing Lab: [facility] [address] [facility] [address] EXTRA GOLD GEL TUBE RECEIVED Dec 14, 2020 04:25 AM [facility] CBC & DIFF Specim en Type: BLOOD Comment: Automa carlo Differential Performed Ordering Provid er: MANISH RAGSDALE Report Released Date/Time: Dec 14, 2020 04:20 AM Reporting Lab: [facility] [address] [facility] [address] Performing Lab: [facility] [address] [facility] [address] WBC 6.93 4.0-11.0 RBC 5.26 4.6-6.2 HGB [...] IMMATURE GRAN 0.06 0-0.1 Dec 14, 2020 [facility] COMPREHENSIVE METABOLIC Spec imen Type: PLASMA 04:25 AM PANEL+MG Comment: Automa carlo Differential Performed Ordering Provid er: MANISH RAGSDALE Report Released Date/Time: Dec 14, 2020 04:20 AM Reporting Lab: [facility] [address] [facility] [address] Performing Lab: [facility] [address] [facility] [address] CREATININE 0.5 L 0.7-1.2 UREA NITROGEN 12 8-26 GLUCOSE 203 H 74-100 SODIUM 135 L 136-145 POTASSIUM 4.2 3.5-5.1 CHLORIDE 100 98-107 CO2 24 22-29 CALCIUM 9.4 8.4-10.2 PROTEIN,TOTAL 7.9 6.0-8.3 ALBUMIN 3.6 3.5-5.2 BILIRUBIN, TOTAL 0.8 0.2-1.2 MAGNESIUM 2.2 1.6-2.6 ANION GAP 11 5-15 ALKALINE PHOSPHATASE 106 40-150 ALT/SGPT 11 <55 AST/SGOT 10 <34 ESTIMATED GFR(eGFR) 163 >60 Dec 14, 2020 04:25 [facility] COVID-19 DIAGNOSTIC Speci men Type: NASOPHARYNGEAL AM PANEL (BIOFIRE) Comment: Biofir e Torch (8) Ordering Provid er: MANISH RAGSDALE Report Released Date/Time: Dec 14, 2020 04:20 AM Reporting Lab: [facility] [address] Performing Lab: [facility] [address] C PNEUMONIAE PCR NOT DETECTED NOT DETECT [...] PCR NOT DETECTED NOT DE TECTED B PARAPERTUS([id number]) NOT DETECTED NOT DE TECTED B PERTUSSIS(PTXP) NOT DETECTED NOT DETEC CARLO RESPIRATORY INTERP No pathogens detected COVID-19 DIAG (BIOF) NOT DETECTED NOT DE TECTED Social History: Smoking Status (Most current) and Tobacco Use (All prior to encounter date) This section includes the most current, and the historical, smoking and tobacco-related health factors from the [place] facility where the Encounter took place.Current Smoking Status This section includes the most current smoking, or tobacco-related health factor, from the [facility] where the Encounter took place. Date/Time Current Smoking Status Comment Facility July 09, 2020 02:00 PM VA-TOBACCO FORMER USER [facility] Tobacco Use History This section includes a history of the smoking, or tobacco- related health factors, that were collected on or before the date of the Encounter. The data comes from the [facility] where the Encounter took place. Date/Time Smoking Status/Tobacco Use Comment [facility] July 09, 2020 02:00 PM VA-TOBACCO QUIT 15 YRS OR MORE [facility] Apr 17, 2019 02:39 PM INPT NO TOBACCO USE IN LAST 30 DAYS [facility] Feb 04, 2019 10:37 AM [place]-TO[place]ACCO NEVER USED TROY BLANTON [facility] Oct 15, 2018 02:43 PM INPT NO TOBACCO USE IN LAST 30 DAYS [facility] Oct 13, 2018 11:30 PM INPT NO TOBACCO USE IN LAST 30 DAYS [facility] Sep 02, 2018 05:50 PM INPT NO TOBACCO USE IN LAST 30 DAYS [facility] Aug 12, 2018 07:28 PM INPT NO TOBACCO USE IN LAST 30 DAYS [facility] Jan 30, 2018 03:28 PM VA-TOBACCO FORMER USER [facility] Jan 30, 2018 03:28 PM [place]-TOBACCO QUIT 15 YRS OR MORE [facility] May 29, 2017 04:53 PM INPT NO TOBACCO USE IN LAST 30 DAYS [facility] Apr 25, 2017 10:44 PM INPT NO TOBACCO USE IN LAST 30 DAYS [facility] Jan 01, 2017 06:40 PM INPT NO TOBACCO USE IN LAST 30 DAYS [facility] Dec 21, 2016 02:43 PM FORMER TOBACCO USER 7Y OR GREATER [facility] Sep 24, 2013 08:52 AM FORMER TOBACCO USER 7Y OR GREATER [facility] Advance Directives: All historical and current Section Date Range: From patient's date of to the date document was created. This section includes ALL of a patient's completed or amended [place] Advance and Rescinded Directives. The entries below indicate that a directive exists for the patient, but an actual copy is not included with this document. The data comes from all [facility]. Date Advance Directives Provider Source May 29, 2017 CLINICAL WARNING CORNELIO FREITAS [facility] May 16, 2017 ADVANCE DIRECTIVE SERENITY BUENROSTRO [facility] May 16, 2017 ADVANCE DIRECTIVE DISCUSSION SERENITY BUENROSTRO [place] [facility] May 04, 2017 CLINICAL WARNING MAGO DIAMOND [facility] May 04, 2017 CLINICAL WARNING GAEL ROSARIO [facility] Apr 26, 2017 CLINICAL WARNING JENNIFER DE LEON [facility] Jan 01, 2017 CLINICAL WARNING AYDE WELLS [facility] Jun 09, 2004 ADVANCE DIRECTIVE DARYL VILLARREAL [facility] Jun 07, 2004 ADVANCE DIRECTIVE AMIESHERYL ANN [facility] Radiology Reports: +/- 30 days of the [...] the Encounter. The data comes from all [place] treatment facilities. Date/Time Radiology Report Provider Source Dec 14, 2020 05:12 AM CTA CHEST FOR P.E. (P): RADIOLOGY,OUTSIDE [facility] JESSICA MOJICA [id number] -[birth year] 7 M SERVICE Exm Date: DEC 14, 2020@05:12 Req Phys: MANISH RAGSDALE Loc: [facility] WALK-IN (Re Img Loc: CT IMAGING Service: Unknown (Case [id number] COMPLETE) CTA CHEST (CT Detailed) CPT: 87912 Contrast Media : Non-ionic Iodinated Reason for Study: hemoptysis Clinical History: [place] IS NOT under investigation for COVID-19 or is COVID-19 negative hemoptysis, history of chronic lung disease Res ponsible provider name and phone number to notify for cr itical findings if other than user placing the order and pager lis carlo below: User placing orders pager: [phone] LAST CREATININE 0.6 L (06/22/20) Report Status: Verified Date Reported: DEC 14, 2020 Date Verified: DEC 14, 2020 Jackhammer Operator E-Sig: Report: CT angiogram of the chest/CT [...] ve. READING PHYSICIAN: Keron Francisco M.D. -[phone] 12/14/2020 6:55 EDT [facility] [employer] [phone] (For Medical Practitioner Use Only ) [address], [facility] [address], [address] [place] [address] Attention Patients / Veterans: If you have ques tions or concerns about these test results, please contact your o [facility] provider or primary care team. Primary Interpreting [...] the Encounter. The data comes from all [place] treatment facilities. Date/Time Pathology Report Provider Source Dec 09, 2020 04:11 PM LR MICROBIOLOGY REPORT: [facility] Reporting Lab: [facility] [CLIA# [id number]] [place] [address] Accession [UID]: [id number] [[id number]] Receiv ed: Dec 09, 2020@16:11 Collection sample: WOUND Collection date: Nov 16:11 Provider: FRANKLIN RICHEY Comment on specimen: Right plantar foot, SWAB RE CEIVED Test(s) ordered: GRAM STAIN............ ........ completed: Dec 09, 2020 22:11 CULTURE & SUSCEPTIBILITY...... completed: Nov 202020 * BACTERIOLOGY FINAL REPORT => Dec 12, 2020 14:4 0 TECH CODE: [id number] GRAM STAIN: DIRECT SMEAR of specimen before [...] --=--=--=--=--=--=--=--=--=--=--=--=-- Performing Laboratory: Bacteriology Report Performed By: [facility] [CLIA# [id number]] [place] [address] Encounter Notes: All associated encounter notes This section contains the clinical notes associated to the Encounter. Date/Time Encounter Note(s) Provider Source Dec 27, 2020 11:03 AM REPORT OF CONTACT: GRACE COLLADO [facility] LOCAL TITLE: APPOINTMENT SCHEDULING NOTE STANDARD TITLE: REPORT OF CONTACT DATE OF NOTE: DEC 27, 2020@11:03 ENTRY DATE: DEC 27, 2020@11:04:01 AUTHOR: GRACE COLLADO EXP COSIGNER: URGENCY: STATUS: COMPLETED SUBJECT: Podiatry Attempt to schedule return to clinic 1st Contact: Called [place] at: N ov Left message Phone number left for to call back: [phone] 2nd Contact: Sent letter by regular [place] mail [place] address on [place] [phone] [place] [phone] If calls back, schedule appointment for : Is the RTC marked as no later than? No Return to [facility] on or around ( Jan 07, 2021 ) for a total of 1 appointment(s) schedule 1-2 weeks Can use post-op slot also. /vinicio/ WALLY HARRIS [employer] Signed: 12/27/2020 11:05
--- OUTSIDE RECORDS SUMMARY | 2021-12-23 15:56 | XMS_ITS | Encounter Summary ---
:1945 Author Organization [facility] Address [address] [place] [id number] Support Name Relationship Address Phone FRANCES GANDARA Unavailable [address] [place] [address] FRANCES GANDARA Unavailable [address] [place] [address] FRANCES GANDARA Unavailable [address] [place] [address] FRANCES GANDARA Unavailable [address] [place] [address] Insurance Providers: All historical and current Section [...] MEDICARE MEDICARE PART Apr 19, PART A [id number] Whit MOJICA (WNR) (M) A 2007 50A [phone] JESSICA MEDICARE MEDICARE PART Apr 19, PART A [id number] 800 Whit [place] (WNR) (M) A 2007 [id number] [phone] JESSICA Selected Encounter This section includes the information on record at [place] for the Encounter. Date/Time Encounter Type Encounter Description Reason Provider Source Jan 17, 2021 02:36 Outpatient Encounter TELEPHONE/SURGERY PM IHE Encounter Template Text not used by [...] 20 appointments. The data comes from all [facility]. Appointment Date/Time Appointment Type Appointment Facili ty Name Jan 27, 2021 03:30 PM AMBULATORY - REHAB MEDICINE [facility] Feb 02, 2021 01:00 PM AMBULATORY - SURGERY [facility] Feb 09, 2021 12:45 PM AMBULATORY - NONE [facility] Feb 14, 2021 02:00 PM AMBULATORY - SURGERY [facility] Feb 16, 2021 08:30 AM AMBULATORY - REHAB MEDICINE [facility] Feb 17, 2021 02:30 PM AMBULATORY - NONE [facility] Feb 23, 2021 09:00 AM AMBULATORY - NONE [facility] Feb 23, 2021 01:30 PM AMBULATORY - NONE [facility] Feb 23, 2021 02:30 PM AMBULATORY - MEDICINE [facility] Feb 28, 2021 08:00 AM AMBULATORY - NONE [facility] Mar 01, 2021 07:45 AM AMBULATORY - SURGERY [facility] Mar 01, 2021 08:43 AM AMBULATORY - MEDICINE [facility] Mar 01, 2021 09:44 AM AMBULATORY - NONE [facility] Mar 02, 2021 02:00 PM AMBULATORY - REHAB MEDICINE [facility] Mar 03, 2021 01:00 PM AMBULATORY - SURGERY [facility] Mar 08, 2021 01:00 PM AMBULATORY - NONE [facility] Mar 09, 2021 10:45 AM AMBULATORY - SURGERY [facility] Mar 09, 2021 11:30 AM AMBULATORY - NONE [facility] Mar 10, 2021 10:45 AM AMBULATORY - NONE [facility] Mar 17, 2021 11:30 AM AMBULATORY - NONE [facility] Active, Pending, and Scheduled Orders This section includes a listing of several types of active, pending, and scheduled orders, including clinic medications orders, diagnostic test orders, procedure orders and consult orders; where the start date of the order is 45 days before the date of the Encounter or 45 days after the date of the Encounter. The data comes from all [facility]. Test Date/Time Test Type Test Details Facility Name Dec 07, 2020 06:15 Laboratory - COVID-19 DIAGNOSTIC PANEL [facility] AM Chemistry Order (CEPHEID) NASOPHARYNGEAL SWAB WC ONCE Jan 25, 2021 06:15 Laboratory - COVID-19 DIAGNOSTIC PANEL [facility] AM Chemistry Order (CEPHEID) NASOPHARYNGEAL SWAB WC ONCE Social History: Smoking Status (Most current) and Tobacco Use (All prior to encounter date) This section includes the most current, and the historical, smoking and tobacco-related health factors from the [place] facility where the Encounter took place.Current Smoking Status This section includes the most current smoking, or tobacco-related health factor, from the [place] facility where the Encounter took place. Date/Time Current Smoking Status Comment Facility July 09, 2020 02:00 PM VA-TOBACCO FORMER USER [facility] Tobacco Use History This section includes a history of the smoking, or tobacco- related health factors, that were collected on or before the date of the Encounter. The data comes from the [place] facility where the Encounter took place. Date/Time Smoking Status/Tobacco Use Comment [facility] it July 09, 2020 02:00 PM VA-TOBACCO QUIT 15 YRS OR MORE [facility] Apr 17, 2019 02:39 PM INPT NO TOBACCO USE IN LAST 30 DAYS [facility] Feb 04, 2019 10:37 AM VA-TOBACCO NEVER USED WILLYSasha MAYIGAMALIELFLO [facility] Oct 15, 2018 02:43 PM INPT NO TOBACCO USE IN LAST 30 DAYS [facility] Oct 13, 2018 11:30 PM INPT NO TOBACCO USE IN LAST 30 DAYS [facility] Sep 02, 2018 05:50 PM INPT NO TOBACCO USE IN LAST 30 DAYS [facility] Aug 12, 2018 07:28 PM INPT NO TOBACCO USE IN LAST 30 DAYS [facility] Jan 30, 2018 03:28 PM VA-TOBACCO FORMER USER [facility] Jan 30, 2018 03:28 PM VA-TOBACCO QUIT 15 YRS OR MORE [facility] May 29, 2017 04:53 PM INPT NO TOBACCO USE IN LAST 30 DAYS [facility] Apr 25, 2017 10:44 PM INPT NO TOBACCO USE IN LAST 30 DAYS [facility] Jan 01, 2017 06:40 PM INPT NO TOBACCO USE IN LAST 30 DAYS [facility] Dec 21, 2016 02:43 PM FORMER TOBACCO USER 7Y OR GREATER [facility] Sep 24, 2013 08:52 AM FORMER TOBACCO USER 7Y OR GREATER [facility] Advance Directives: All historical and current Section Date Range: From patient's date of to the date document was created. This section includes ALL of a patient's completed or amended [place] Advance and Rescinded Directives. The entries below indicate that a directive exists for the patient, but an actual copy is not included with this document. The data comes from all [place] facilities. Date Advance Directives Provider Source May 29, 2017 CLINICAL WARNING FREITASCORNELIOCOLBYCarlos Tasha [facility] May 16, 2017 ADVANCE DIRECTIVE SERENITY BUENROSTRO [facility] May 16, 2017 ADVANCE DIRECTIVE DISCUSSION [place] [facility] May 04, 2017 CLINICAL WARNING MAGO DIAMOND [facility] May 04, 2017 CLINICAL WARNING BITAGAEL PARRA [facility] Apr 26, 2017 CLINICAL WARNING JENNIFER [facility] Jan 01, 2017 CLINICAL WARNING AYDE WELLS [facility] Jun 09, 2004 ADVANCE DIRECTIVE DARYL VILLARREAL [facility] Jun 07, 2004 ADVANCE DIRECTIVE AMIESHERYL [facility] Encounter Notes: All associated encounter notes This section contains the clinical notes associated to the Encounter. Date/Time Encounter Note(s) Provider Source Jan 17, 2021 02:36 PM SURGERY BACK MAKER NOTE: TABBY VARELA [facility] LOCAL TITLE: SURGERY COORDINATOR NOTE STANDARD TITLE: SURGERY BACK MAKER NOTE DATE OF NOTE: JAN 17, 2021@14:36 ENTRY DATE: JAN 17, 2021@14:36:20 AUTHOR: TABBY VARELA EXP COSIGNER: URGENCY: STATUS: COMPLETED SURGERY COORDINATOR NOTE Has ADDENDA wrtier placed call to patient to discuss upcomin g surgery. no answer. left voicemail. /darya VARELA RN STAFF NURSE Signed: 01/17/2021 14:36 01/18/2021 ADDENDUM STATUS: COMPLETED patient left vm. returned call. no answer. left voicemail. /darya VARELA RN STAFF NURSE Signed: 01/18/2021 14:21 01/18/2021 ADDENDUM STATUS: COMPLETED 01/05 appt was a routine f/u for diabetes previous scheduled and was not a pre- op appt. JAGRUTI /vinicio/ Giselle Martinez MD Staff Physician Signed: 01/18/2021 15:29 Receipt Acknowledged By: 01/19/2021 10:25 /darya VARELA RN STAFF NURSE 01/19/2021 ADDENDUM STATUS: COMPLETED investigative writer placed call to patient. no answer. left v oicemail. /vinicio/ TABBY VARELA RN STAFF NURSE Signed: 01/19/2021 10:26 01/19/2021 ADDENDUM STATUS: COMPLETED investigative writer placed call to patient. no answer. left v oicemail. /vinicio/ TABBY VARELA CAUSTIC STRENGTH INSPECTOR NURSE Signed: 01/19/2021 15:10 01/19/2021 ADDENDUM STATUS: COMPLETED Electric Furnace Operator trying to reach patient to let him know t hat tentative pod surgery scheduled on 01/25/21 needs to be cancelled as [facility] is at capacity and all elective surgeries scheduled for next week need to be postponed. Unsure how long [facility] will be affected so not re scheduling surgeries. Electric Furnace Operator has tried to call patient numerous times all week without success. Patient also needs medical optimization prior to rescheduling surgery as most recent hgba1c is 9.5. To ensure best outcome of surgery, Dr. Vinod hernández like it below 8. Will alert PACT team to this information as FYI in case patient reaches out to them. /vinicio/ TABBY VARELA RN STAFF NURSE Signed: 01/19/2021 15:15 Receipt Acknowledged By: * AWAITING SIGNATURE * RAINER ALLEN 01/19/2021 15:24 /vinicio/ DEBRA KERNS DPM STAFF INTERNET NETWORK SPECIALIST * AWAITING SIGNATURE * GISELLE MARTINEZ
--- OUTSIDE RECORDS SUMMARY | 2021-12-23 15:58 | XMS_ITS | Encounter Summary ---
:1945 Author Organization [facility] Address [address] [place] [address] Support Name Relationship Address Phone FRANCES GANDARA Unavailable [address] [place] [address] FRANCES GANDARA Unavailable [address] [place] [address] FRANCES GANDARA Unavailable [address] [place] [address] FRANCES GANDARA Unavailable [address] [place] [address] Insurance Providers: All historical and current Section [...] MEDICARE MEDICARE PART Apr 19, PART A [id number] YUNIORWhit (WNR) (M) A 2007 50A [phone] JESSICA MEDICARE MEDICARE PART Apr 19, PART A [id number] KAUSHALEDSONWhit ONOFRE (WNR) (M) A 2007 [id number] [phone] JESSICA Selected Encounter This section includes the information on record at [place] for the Encounter. Date/Time Encounter Type Encounter Description Reason Provider Source IHE Encounter Template Text not used by [facility] Advance Directives: All historical and current Section Date Range: From patient's date of to the date document was created. This section includes ALL of a patient's completed or amended [place] Advance and Rescinded Directives. The entries below indicate that a directive exists for the patient, but an actual copy is not included with this document. The data comes from all [place] facilities. Date Advance Directives Provider Source May 29, 2017 CLINICAL WARNING CORNELIO FREITAS [facility] May 16, 2017 ADVANCE DIRECTIVE SERENITY BUENROSTRO [facility] May 16, 2017 ADVANCE DIRECTIVE DISCUSSION SERENITY BU[place]STRO [place] [facility] May 04, 2017 CLINICAL WARNING MAGO DIAMOND [facility] May 04, 2017 CLINICAL WARNING GAEL ROSARIO [facility] Apr 26, 2017 CLINICAL WARNING JENNIFER DE LEON [facility] Jan 01, 2017 CLINICAL WARNING AYDE WELLS [facility] Jun 09, 2004 ADVANCE DIRECTIVE DARYL VILLARREAL [facility] Jun 07, 2004 ADVANCE DIRECTIVE SHERYL HOLLOWAY [facility]
--- OUTSIDE RECORDS SUMMARY | 2021-12-23 16:00 | XMS_ITS | Encounter Summary ---
:1945 Author Organization [facility] Address [address] [place] [address] Support Name Relationship Address Phone FRANCES GANDARA Unavailable [address] [place] [address] FRANCES GANDARA Unavailable [address] [place] [address] FRANCES GANDARA Unavailable [address] [place] [address] FRANCES GANDAAR Unavailable [address] [place] [address] Insurance Providers: All historical and current Section [...] MEDICARE MEDICARE PART Apr 19, PART A [id number] Whit MOJICA (WNR) (M) A 2007 50A [phone] JESSICA MEDICARE MEDICARE PART Apr 19, PART A [id number] Whit [place] (WNR) (M) A 2007 [id number] [phone] JESSICA Selected Encounter This section includes the information on record at [place] for the Encounter. Date/Time Encounter Type Encounter Reason Provider Source Description Jan 10, 2021 PRO PHONE TELEPHONE/SURGERY ICD-10-CM H90.3 ERIN MENDEZ 08:02 AM CALL 11-20 MIN Sensorineural ROSEANN hearing loss, bilateral with Provider Comments: Sensorineural hearing loss, bilateral IHE Encounter Template Text not used by [facility] Assessments - Encounter Diagnoses This section includes the primary and secondary diagnoses documented for the Encounter. Date/Time Primary/Secondary Diagnosis Name Provider Source Diagnosis Jan 10, 2021 PRIMARY Sensorineural LANGNAOMIE 08:02 AM hearing loss, ROSEANN [facility] bilateral Plan of Treatment: Future Appointments (+ 6 months) and Future Tests (+/- 45 days) The Plan of Treatment section includes future care activities for the patient from all [place] treatmentfacilities. This section includes future appointments and future orders which are active, pending orscheduled.Future Appointments This section includes appointments that were scheduled to occur 6 months from the date of the Encounter, up to a maximum of 20 appointments. The data comes from all [place] treatment facilities. Appointment Date/Time Appointment Type Appointment Facili ty Name Jan 12, 2021 02:00 PM AMBULATORY - SURGERY [facility] S Jan 27, 2021 03:30 PM AMBULATORY - REHAB MEDICINE [facility] Feb 02, 2021 01:00 PM AMBULATORY - SURGERY [facility] S Feb 09, 2021 12:45 PM AMBULATORY - NONE [facility] Feb 14, 2021 02:00 PM AMBULATORY - SURGERY [facility] S Feb 16, 2021 08:30 AM AMBULATORY - REHAB MEDICINE [facility] Feb 17, 2021 02:30 PM AMBULATORY - NONE [facility] Feb 23, 2021 09:00 AM AMBULATORY - NONE [facility] Feb 23, 2021 01:30 PM AMBULATORY - NONE [facility] Feb 23, 2021 02:30 PM AMBULATORY - MEDICINE [facility] Feb 28, 2021 08:00 AM AMBULATORY - NONE [facility] Mar 01, 2021 07:45 AM AMBULATORY - SURGERY [facility] Mar 01, 2021 08:43 AM AMBULATORY - MEDICINE [facility] Mar 01, 2021 09:44 AM AMBULATORY - NONE [facility] Mar 02, 2021 02:00 PM AMBULATORY - REHAB MEDICINE [facility] Mar 03, 2021 01:00 PM AMBULATORY - SURGERY [facility] S Mar 08, 2021 01:00 PM AMBULATORY - NONE [facility] Mar 09, 2021 10:45 AM AMBULATORY - SURGERY [facility] Mar 09, 2021 11:30 AM AMBULATORY - NONE [facility] Mar 10, 2021 10:45 AM AMBULATORY - NONE [facility] Active, Pending, and Scheduled Orders This section includes a listing of several types of active, pending, and scheduled orders, including clinic medications orders, diagnostic test orders, procedure orders and consult orders; where the start date of the order is 45 days before the date of the Encounter or 45 days after the date of the Encounter. The data comes from all [place] treatment facilities. Test Date/Time Test Type Test Details Facility Name Dec 07, 2020 06:15 Laboratory - COVID-19 DIAGNOSTIC PANEL [facility] AM Chemistry Order (CEPHEID) NASOPHARYNGEAL SWAB WC ONCE Jan 25, 2021 06:15 Laboratory - COVID-19 DIAGNOSTIC PANEL [facility] AM Chemistry Order (CEPHEID) NASOPHARYNGEAL SWAB WC ONCE Lab Results: +/- 30 days of the encounter This section includes the Chemistry and Hematology Lab Results on record with [place] for the patient. Radiology Reports and Pathology Reports are provided separately, in subsequent sections.Lab Results This section contains the Chemistry/Hematology Results that were resulted 30 days before or 30 daysafter the date of the Encounter. Date/Time Source Result Type Result - Unit Interpretation Reference Range Comment Dec 15, 2020 12:46 PM [facility] BNP Specim en Type: PLASMA No comment enter ed. Ordering Provid er: MAREK URENA Report Released Date/Time: June 22, 2020 11:29 AM Reporting Lab: [facility] [address] [facility] [address] Performing Lab: [facility] [address] [facility] [address] BNP 193 H <99 Dec 15, 2020 12:44 PM [facility] HEMOGLOBIN A1C Specim en Type: BLOOD No comment enter ed. Ordering Provid er: CARIDAD DENNIS Report Released Date/Time: Aug 11, 2020 11:57 AM Reporting Lab: [facility] [address] [facility] [address] Performing Lab: [facility] [address] [facility] [address] HEMOGLOBIN A1C 9.5 H 4.0-6.0 Dec 15, 2020 12:44 PM [facility] B 12 Specim en Type: PLASMA No comment enter ed. Ordering Provid er: CARIDAD DENNIS Report Released Date/Time: Aug 11, 2020 12:29 PM Reporting Lab: [facility] [address] [facility] [address] Performing Lab: [facility] [address] [facility] [address] B 12 1116 H 213-816 Dec 15, 2020 12:44 PM [facility] FOLATE Specim en Type: SERUM No comment enter ed. Ordering Provid er: CARIDAD DENNIS Report Released Date/Time: Aug 11, 2020 12:29 PM Reporting Lab: [facility] [address] [facility] [address] Performing Lab: [facility] [address] [facility] [address] FOLATE 5.3 L >7.0 Dec 15, 2020 12:44 PM [facility] IRON GROUP Specim en Type: SERUM No comment enter ed. Ordering Provid er: CARIDAD DENNIS Report Released Date/Time: Aug 11, 2020 12:29 PM Reporting Lab: [facility] [address] [facility] [address] Performing Lab: [facility] [address] [facility] [address] IRON 36 L 65-175 TIBC,CALCULATED 296 250-425 FERRITIN 265.0 21.8-274.7 IRON SATURATION 12 L 20-50 TRANSFERRIN 237 163-382 Dec 15, 2020 12:44 [facility] BASIC METABOLIC Specimen Type: PLASMA PM PANEL+MG No comment enter ed. Ordering Provid er: CARIDAD DENNIS Report Released Date/Time: Aug 11, 2020 11:57 AM Reporting Lab: [facility] [address] [facility] [address] Performing Lab: [facility] [address] [facility] [address] CREATININE 0.6 L 0.7-1.2 UREA NITROGEN 12 8-26 GLUCOSE 277 H 74-100 SODIUM 137 136-145 POTASSIUM 4.3 3.5-5.1 CHLORIDE 100 98-107 CO2 26 22-29 CALCIUM 9.3 8.4-10.2 MAGNESIUM 2.0 1.6-2.6 ANION GAP 11 5-15 ESTIMATED GFR(eGFR) 132 >60 Dec 15, 2020 12:44 PM [facility] CBC & DIFF Specim en Type: BLOOD Comment: Automa carlo Differential Performed Ordering Provid er: CARIDAD DENNIS Report Released Date/Time: Aug 11, 2020 12:29 PM Reporting Lab: [facility] [address] [facility] [address] Performing Lab: [facility] [address] [facility] [address] WBC 6.29 4.0-11.0 RBC 5.29 4.6-6.2 HGB [...] GRAN 0.08 0-0.1 Dec 15, 2020 12:44 [facility] METHYLMALONIC ACID Specim en Type: SERUM PM No comment enter ed. Ordering Provid er: CARIDAD DENNIS Report Released Date/Time: Dec 15, 2020 04:33 PM Reporting Lab: [facility] [address] [facility] [address] Performing Lab: [facility] [address] [facility] [address] METHYLMALONIC ACID 97 0-400 Dec 15, 2020 12:44 PM [facility] HOMOCYSTEINE Specim en Type: PLASMA No comment enter ed. Ordering Provid er: CARIDAD DENNIS Report Released Date/Time: Dec 15, 2020 04:33 PM Reporting Lab: [facility] [address] [facility] [address] Performing Lab: [facility] [address] [facility] [address] HOMOCYSTEINE 9.3 5.1-15.4 Dec 14, 2020 04:25 AM [facility] D-DIMER Specim en Type: PLASMA No comment enter ed. Ordering Provid er: MANISH RAGSDALE Report Released Date/Time: Dec 14, 2020 04:20 AM Reporting Lab: [facility] [address] [facility] [address] Performing Lab: [facility] [address] [facility] [address] D-DIMER 1102 H 0-500 Dec 14, 2020 04:25 AM [facility] PROCALCITONIN Specim en Type: PLASMA No comment enter ed. Ordering Provid er: MANISH RAGSDALE Report Released Date/Time: Dec 14, 2020 04:20 AM Reporting Lab: [facility] [address] [facility] [address] Performing Lab: [facility] [address] [facility] [address] PROCALCITONIN 0.44 H <0.09 Dec 14, 2020 04:25 [facility] EXTRA GOLD GEL TUBE Speci men Type: SERUM AM No comment enter ed. Ordering Provid er: MANISH RAGSDALE Report Released Date/Time: Dec 14, 2020 04:37 AM Reporting Lab: [facility] [address] [facility] [address] [facility]forming Lab[facility] [address] EXTRA GOLD GEL TUBE RECEIVED Dec 14, 2020 [facility] COMPREHENSIVE METABOLIC Spec imen Type: PLASMA 04:25 AM PANEL+MG Comment: Automa carlo Differential Performed Ordering Provid er: MANISH RAGSDALE Report Released Date/Time: Dec 14, 2020 04:20 AM Reporting Lab: [facility] [address] [facility] [address] Performing Lab: [facility] [address] [facility] [address] CREATININE 0.5 L 0.7-1.2 UREA NITROGEN 12 8-26 GLUCOSE 203 H 74-100 SODIUM 135 L 136-145 POTASSIUM 4.2 3.5-5.1 CHLORIDE 100 98-107 CO2 24 22-29 CALCIUM 9.4 8.4-10.2 PROTEIN,TOTAL 7.9 6.0-8.3 ALBUMIN 3.6 3.5-5.2 BILIRUBIN, TOTAL 0.8 0.2-1.2 MAGNESIUM 2.2 1.6-2.6 ANION GAP 11 5-15 ALKALINE PHOSPHATASE 106 40-150 ALT/SGPT 11 <55 AST/SGOT 10 <34 ESTIMATED GFR(eGFR) 163 >60 Dec 14, 2020 04:25 AM [facility] CBC & DIFF Specim en Type: BLOOD Comment: Automa carlo Differential Performed Ordering Provid er: MANISH RAGSDALE Report Released Date/Time: Dec 14, 2020 04:20 AM Reporting Lab: [facility] [address] [facility] [address] Performing Lab: [facility] [address] [facility] [address] WBC 6.93 4.0-11.0 RBC 5.26 4.6-6.2 HGB [...] IMMATURE GRAN 0.06 0-0.1 Dec 14, 2020 04:25 [facility] COVID-19 DIAGNOSTIC Speci men Type: NASOPHARYNGEAL AM PANEL (CatapulterFIRE) Comment: Yari Borja ([id number]) Ordering Provid er: MANISH RAGSDALE Report Released Date/Time: Dec 14, 2020 04:20 AM Reporting Lab: [facility] [address] Performing Lab: [facility] [address] C PNEUMONIAE PCR NOT DETECTED NOT DETECT [...] PCR NOT DETECTED NOT DE TECTED B PARAPERTUS([id number]) NOT DETECTED NOT DE TECTED B PERTUSSIS(PTXP) NOT DETECTED NOT DETEC CARLO RESPIRATORY INTERP No pathogens detected COVID-19 DIAG (BIOF) NOT DETECTED NOT DE TECTED Social History: Smoking Status (Most current) and Tobacco Use (All prior to encounter date) This section includes the most current, and the historical, smoking and tobacco-related health factors from the [place] facility where the Encounter took place.Current Smoking Status This section includes the most current smoking, or tobacco-related health factor, from the [place] facility where the Encounter took place. Date/Time Current Smoking Status Comment Facility July 09, 2020 02:00 PM VA-TOBACCO FORMER USER [facility] Tobacco Use History This section includes a history of the smoking, or tobacco- related health factors, that were collected on or before the date of the Encounter. The data comes from the [place] facility where the Encounter took place. Date/Time Smoking Status/Tobacco Use Comment [facility] it July 09, 2020 02:00 PM VA-TOBACCO QUIT 15 YRS OR MORE [facility] Apr 17, 2019 02:39 PM INPT NO TOBACCO USE IN LAST 30 DAYS [facility] Feb 04, 2019 10:37 AM VA-TOBACCO NEVER USED WILLYCollin MAYIGAMALIELFLO [facility] Oct 15, 2018 02:43 PM INPT NO TOBACCO USE IN LAST 30 DAYS [facility] Oct 13, 2018 11:30 PM INPT NO TOBACCO USE IN LAST 30 DAYS [facility] Sep 02, 2018 05:50 PM INPT NO TOBACCO USE IN LAST 30 DAYS [facility] Aug 12, 2018 07:28 PM INPT NO TOBACCO USE IN LAST 30 DAYS [facility] Jan 30, 2018 03:28 PM [facility] Jan 30, 2018 03:28 PM VA-TOBACCO QUIT 15 YRS OR MORE [facility] May 29, 2017 04:53 PM INPT NO TOBACCO USE IN LAST 30 DAYS [facility] Apr 25, 2017 10:44 PM INPT NO TOBACCO USE IN LAST 30 DAYS [facility] Jan 01, 2017 06:40 PM INPT NO TOBACCO USE IN LAST 30 DAYS [facility] Dec 21, 2016 02:43 PM FORMER TOBACCO USER 7Y OR GREATER [facility] Sep 24, 2013 08:52 AM FORMER TOBACCO USER 7Y OR GREATER [facility] Advance Directives: All historical and current Section Date Range: From patient's date of to the date document was created. This section includes ALL of a patient's completed or amended [place] Advance and Rescinded Directives. The entries below indicate that a directive exists for the patient, but an actual copy is not included with this document. The data comes from all [place] facilities. Date Advance Directives Provider Source May 29, 2017 CLINICAL WARNING KYLE FRE[place]ING[place] Teodora Cordova [facility] May 16, 2017 ADVANCE DIRECTIVE SERENITY BUENROSTRO [place] V A [facility] May 16, 2017 ADVANCE DIRECTIVE DISCUSSION SERENITY BUENROSTRO [place] [facility] May 04, [address]O [address] [facility] May 04, 2017 CLINICAL WARNING GAEL ROSARIO [facility] Apr 26, 2017 CLINICAL WARNING JENNIFER DE LEON [facility] Jan 01, 2017 CLINICAL WARNING AYDE WELLS [facility] Jun 09, 2004 ADVANCE DIRECTIVE DARYL VILLARREAL [facility] Jun 07, 2004 ADVANCE DIRECTIVE SHERYL HOLLOWAY [facility] Radiology Reports: +/- 30 days [...] the Encounter. The data comes from all [place] treatment facilities. Date/Time Radiology Report Provider Source Dec 14, 2020 05:12 AM CTA CHEST FOR P.E. (P): RADIOLOGY,OUTSIDE [facility] JESSICA MOJICA [id number] -[birth year] 8 M SERVICE Exm Date: DEC 14, 2020@05:12 Req Phys: MANISH RAGSDALE Loc: [facility] DEPT WALK-IN (Re Img Loc: CT IMAGING Service: Unknown (Case [id number] COMPLETE) CTA CHEST (CT Detailed) CPT: 24100 Contrast Media : Non-ionic Iodinated Reason for Study: hemoptysis Clinical History: IS NOT under investigation for COVID-19 or is COVID-19 negative hemoptysis, history of chronic lung disease Res ponsible provider name and phone number to notify for cr itical findings if other than user placing the order and pager lis carlo below: User placing orders pager: [phone] LAST CREATININE 0.6 L (06/22/20) Report Status: Verified Date Reported: DEC 14, 2020 Date Verified: DEC 14, 2020 Parts Person E-Sig: Report: CT angiogram of the chest/CT [...] ve. READING PHYSICIAN: Keron Francisco M.D. [phone] 12/14/2020 6:55 EDT [facility] National Teleradiology Program [phone] (For Medical Practitioner Use Only ) [address] [place] [address], [place] [address], [address] [place] [address] Attention Patients / Veterans: If you have ques tions or concerns about these test results, please contact your o [facility] provider or primary care team. Primary Interpreting Staff: RADIOLOGY,OUTSIDE SERVICE, Staff Physician / Encounter Notes: All associated encounter notes This section contains the clinical notes associated to the Encounter. Date/Time Encounter Note(s) Provider Source Jan 10, 2021 08:02 AM AUDIOLOGY NOTE: [facility] LOCAL TITLE: AUDIOLOGY CLINIC NOTE STANDARD TITLE: AUDIOLOGY NOTE DATE OF NOTE: JAN 10, 2021@08:02 ENTRY DATE: JAN 10, 2021@08:02:59 AUTHOR: NAOMIE MENDEZ EXP COSIGNER: URGENCY: STATUS: COMPLETED SUBJECT: Audiology Telephone AUDIOLOGY CLINIC NOTE Has ADDENDA Diagnosis: Sensorineural hearing loss, bilateral Tinnitus - Bilateral Mode of care: telephone, audio only Number of Minutes Spent: 15 Minutes (11-20 minut es) HISTORY: The following hearing aid problem/s were present ed: Spoke with via telephone. [place] inquired about the status of his hearing aids. wondered when he'd be receiving the rechargeable ANÍBAL devices. Hearing Aids: AUTHORIZED DEVICES OF 07/27/20 PHONAK VIRTO M90 CA R [id number]* [id number] 08/26/23 01/23/21 [place] 07/27/20 PHONAK VIRTO M90 CA L [id number] 08/26/23 01/23/21 [place] 05/26/19 PHONAK COMPILOT II WA N/A [id number] NA Unknown N/A 10/19/18 TV CONNECTOR D WT N/A [id number] NA Expi red 618 [place] 11/08/20 PHONAK COMPILOT II [place] N/A [id number] N/A 618 [place] 09/25/17 PHONAK COMPILOT II [place] N/A [id number] NA 618 [place] 12/30/15 PHONAK TVLINK II WT N/A [id number]* NA E xpired 6[address] [place] 05/28/15 PHONAK COMPILOT II [place] L [id number] NA Ex pired [address] [place] 05/28/15 PHONAK TVLINK II WT N/A [id number] NA Ex pired [address] [place] 04/30/15 PHONAK VIRTO V90 CA R [id number]* [id number] [address] [place] 04/30/15 PHONAK VIRTO V90 CA L [id number]* [id number] 6[address] [place] Action: Boston's right L&D was orde red on 12/14/20. The aid has not arrived from [employer] or been certified at this time. At that time a left replacement was ordered as well; however, also sent the original left device to [facility]. [facility] cancelled the service request for the left L&D and automobile service writer entered a service request to repair the left device on 01/04/2021. Air Export Agent eros rted techs to wait to mail devices to until they are both r eceived in clinic and can be synced in the software together. [place] continued to ask where the rechargeable devices were??? Per Dr. Lyman (11/15/2020 ADDENDUM ) 's Audeo M90-R's were transferred to [place] on this date, as he has transitioned into ITE hearing aids. Plan: Tech note: Please wait until both the right L&D and left repair arrive and load previous [place] session prior to mailing to erum collin. PATIENT IS IN AGREEMENT WITH THIS PLAN. /vinicio/ TRAY SULTANA STAFF SENIOR CONTROLS ANALYST Signed: 01/10/2021 08:11 01/20/2021 ADDENDUM STATUS: COMPLETED RESTORING SETTINGS AND MAILING TO ADDRESS ON [facility] E ONCE COMPLETE /vinicio/ BAKARI Ozuna CRITICAL ACCESS HOSPITAL GARMENT INSPECTOR Signed: 01/20/2021 07:25
--- OUTSIDE RECORDS SUMMARY | 2021-12-23 16:01 | XMS_ITS | Encounter Summary ---
:1945 Author Organization Department [facility] rs Address [address] [place] [id number] Support Name Relationship Address Phone FRANCES GANDARA Unavailable [address] [place] [address] FRANCES GANDARA Unavailable [address] [place] [address] FRANCES GANDARA Unavailable [address] [place] [address] FRANCES GANDARA Unavailable [address] [place] [address] Insurance Providers: All historical and current Section [...] MEDICARE MEDICARE PART Apr 19, PART A [id number] Whit MOJICA (WNR) (M) A 2007 [id number] JESSICA MEDICARE MEDICARE PART Apr 19, PART A [id number] Whit MOJICA (WNR) (M) A 2007 [id number] [phone] JESSICA Selected Encounter This section includes the information on record at DC for the Encounter. Date/Time Encounter Type Encounter Reason Provider Source Description Jan 05, 2021 OFFICE O/P EST OPHTHALMOLOGY ICD-10-CM Z96.1 FERDINAND WELCH 10:45 AM MOD 30-39 MIN Presence of L intraocular lens with Provider Comments: Presence of intraocular lens IHE Encounter Template Text not used by [facility] Assessments - Encounter Diagnoses This section includes the primary and secondary diagnoses documented for the Encounter. 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 This section includes future appointments and future orders which are active, pending orscheduled.Future Appointments This section includes appointments that were scheduled to occur 6 months from the date of the Encounter, up to a maximum of 20 appointments. The data comes from all DC treatment facilities. Appointment Date/Time Appointment Type Appointment Facili ty Name Jan 06, 2021 09:30 AM AMBULATORY - REHAB MEDICINE [facility] Jan 10, 2021 01:30 PM AMBULATORY - MEDICINE [facility] Jan 10, 2021 02:30 PM AMBULATORY - MEDICINE [facility] Jan 12, 2021 02:00 PM AMBULATORY - SURGERY [facility] S Jan 27, 2021 03:30 PM AMBULATORY - REHAB MEDICINE [facility] Feb 02, 2021 01:00 PM AMBULATORY - SURGERY [facility] S Feb 09, 2021 12:45 PM AMBULATORY - NONE [facility] Feb 14, 2021 02:00 PM AMBULATORY - SURGERY [facility] S Feb 16, 2021 08:30 AM AMBULATORY - REHAB MEDICINE [facility] Feb 17, 2021 02:30 PM AMBULATORY - NONE [facility] Feb 23, 2021 09:00 AM AMBULATORY - NONE [facility] Feb 23, 2021 01:30 PM AMBULATORY - NONE [facility] Feb 23, 2021 02:30 PM AMBULATORY - MEDICINE [facility] Feb 28, 2021 08:00 AM AMBULATORY - NONE [facility] Mar 01, 2021 07:45 AM AMBULATORY - SURGERY [facility] S Mar 01, 2021 08:43 AM AMBULATORY - MEDICINE [facility] Mar 01, 2021 09:44 AM AMBULATORY - NONE [facility] Mar 02, 2021 02:00 PM AMBULATORY - REHAB MEDICINE [facility] Tasha [facility] Mar 03, 2021 01:00 PM AMBULATORY - SURGERY [facility] S Mar 08, 2021 01:00 PM AMBULATORY - NONE [facility] Active, Pending, and Scheduled Orders This section includes a listing of several types of active, pending, and scheduled orders, including clinic medications orders, diagnostic test orders, procedure orders and consult orders; where the start date of the order is 45 days before the date of the Encounter or 45 days after the date of the Encounter. The data comes from all DC treatment facilities. Test Date/Time Test Type Test Details Facility Name Nov 24, 2020 08:57 Pharmacy - Clinic [facility] PM Medication Order Dec 07, 2020 06:15 Laboratory - COVID-[address] [facility] AM Chemistry Order (CEPHEID) NASOPHARYNGEAL SWAB WC ONCE Jan 25, 2021 06:15 Laboratory - COVID-[address] [facility] AM Chemistry Order (CEPHEID) NASOPHARYNGEAL SWAB WC ONCE Lab Results: +/- 30 days of the encounter This section includes the Chemistry and Hematology Lab Results on record with DC for the patient. Radiology Reports and Pathology Reports are provided separately, in subsequent sections.Lab Results This section contains the Chemistry/Hematology Results that were resulted 30 days before or 30 daysafter the date of the Encounter. Date/Time Source Result Type Result - Unit Interpretation Reference Range Comment Dec 15, 2020 12:46 PM [facility] BNP Specim en Type: PLASMA No comment enter ed. Ordering Provid er: MAREK URENA Report Released Date/Time: June 22, 2020 11:29 AM Reporting Lab: [facility] [address] [facility] [address] Performing Lab: [facility] [address] [facility] [address] BNP 193 H <99 Dec 15, 2020 12:44 PM [facility] HEMOGLOBIN A1C Specim en Type: BLOOD No comment enter ed. Ordering Provid er: CARIDAD DENNIS Report Released Date/Time: Aug 11, 2020 11:57 AM Reporting Lab: [facility] [address] [facility] [address] Performing Lab: [facility] [address] [facility] [address] HEMOGLOBIN A1C 9.5 H 4.0-6.0 Dec 15, 2020 12:44 PM [facility] B 12 Specim en Type: PLASMA No comment enter ed. Ordering Provid er: CARIDAD DENNIS Report Released Date/Time: Aug 11, 2020 12:29 PM Reporting Lab: [facility] [address] [facility] [address] Performing Lab: [facility] [address] [facility] [address] B 12 1116 H 213-816 Dec 15, 2020 12:44 PM [facility] FOLATE Specim en Type: SERUM No comment enter ed. Ordering Provid er: CARIDAD DENNIS Report Released Date/Time: Aug 11, 2020 12:29 PM Reporting Lab: [facility] [address] [facility] [address] Performing Lab: [facility] [address] [facility] [address] FOLATE 5.3 L >7.0 Dec 15, 2020 12:44 [facility] BASIC METABOLIC Specimen Type: PLASMA PM PANEL+MG No comment enter ed. Ordering Provid er: CARIDDA DENNIS Report Released Date/Time: Aug 11, 2020 11:57 AM Reporting Lab: [facility] [address] [facility] [address] Performing Lab: [facility] [address] [facility] [address] CREATININE 0.6 L 0.7-1.2 UREA NITROGEN 12 8-26 GLUCOSE 277 H 74-100 SODIUM 137 136-145 POTASSIUM 4.3 3.5-5.1 CHLORIDE 100 98-107 CO2 26 22-29 CALCIUM 9.3 8.4-10.2 MAGNESIUM 2.0 1.6-2.6 ANION GAP 11 5-15 ESTIMATED GFR(eGFR) 132 >60 Dec 15, 2020 12:44 PM [facility] IRON GROUP Specim en Type: SERUM No comment enter ed. Ordering Provid er: CARIDAD DENNIS Report Released Date/Time: Aug 11, 2020 12:29 PM Reporting Lab: [facility] [address] [facility] [address] Performing Lab: [facility] [address] [facility] [address] IRON 36 L 65-175 TIBC,CALCULATED 296 250-425 FERRITIN 265.0 21.8-274.7 IRON SATURATION 12 L 20-50 TRANSFERRIN 237 163-382 Dec 15, 2020 12:44 PM [facility] CBC & DIFF Specim en Type: BLOOD Comment: Automa carlo Differential Performed Ordering Provid er: CARIDAD DENNIS Report Released Date/Time: Aug 11, 2020 12:29 PM Reporting Lab: [facility] [address] [facility] [address] Performing Lab: [facility] [address] [facility] [address] WBC 6.29 4.0-11.0 RBC 5.29 4.6-6.2 HGB [...] GRAN 0.08 0-0.1 Dec 15, 2020 12:44 [facility] METHYLMALONIC ACID Specim en Type: SERUM PM No comment enter ed. Ordering Provid er: CARIDAD DENNIS Report Released Date/Time: Dec 15, 2020 04:33 PM Reporting Lab: [facility] [address] [facility] [address] Performing Lab: [facility] [address] [facility] [address] METHYLMALONIC ACID 97 0-400 Dec 15, 2020 12:44 PM [facility] HOMOCYSTEINE Specim en Type: PLASMA No comment enter ed. Ordering Provid er: CARIDAD DENNIS Report Released Date/Time: Dec 15, 2020 04:33 PM Reporting Lab: [facility] [address] [facility] [address] Performing Lab: [facility] [address] [facility] [address] HOMOCYSTEINE 9.3 5.1-15.4 Dec 14, 2020 04:25 AM [facility] D-DIMER Specim en Type: PLASMA No comment enter ed. Ordering Provid er: MANISH RAGSDALE Report Released Date/Time: Dec 14, 2020 04:20 AM Reporting Lab: [facility] [address] [facility] [address] Performing Lab: [facility] [address] [facility] [address] D-DIMER 1102 H 0-500 Dec 14, 2020 04:25 AM [facility] PROCALCITONIN Specim en Type: PLASMA No comment enter ed. Ordering Provid er: MANISH RAGSDALE Report Released Date/Time: Dec 14, 2020 04:20 AM Reporting Lab: [facility] [address] [facility] [address] Performing Lab: [facility] [address] [facility] [address] PROCALCITONIN 0.44 H <0.09 Dec 14, 2020 04:25 [facility] EXTRA GOLD GEL TUBE Speci men Type: SERUM AM No comment enter ed. Ordering Provid er: MANISH RAGSDALE Report Released Date/Time: Dec 14, 2020 04:37 AM Reporting Lab: [facility] [address] [facility] [address] Performing Lab: [facility] [address] [facility] [address] EXTRA GOLD GEL TUBE RECEIVED Dec 14, 2020 04:25 AM [facility] CBC & DIFF Specim en Type: BLOOD Comment: Automa carlo Differential Performed Ordering Provid er: MANISH RAGSDALE Report Released Date/Time: Dec 14, 2020 04:20 AM Reporting Lab: [facility] [address] [facility] [address] Performing Lab: [facility] [address] [facility] [address] WBC 6.93 4.0-11.0 RBC 5.26 4.6-6.2 HGB [...] IMMATURE GRAN 0.06 0-0.1 Dec 14, 2020 [facility] COMPREHENSIVE METABOLIC Spec imen Type: PLASMA 04:25 AM PANEL+MG Comment: Automa carlo Differential Performed Ordering Provid er: MANISH RAGSDALE Report Released Date/Time: Dec 14, 2020 04:20 AM Reporting Lab: [facility] [address] Performing Lab: [facility] [address] CREATININE 0.5 L 0.7-1.2 UREA NITROGEN 12 8-26 GLUCOSE 203 H 74-100 SODIUM 135 L 136-145 POTASSIUM 4.2 3.5-5.1 CHLORIDE 100 98-107 CO2 24 22-29 CALCIUM 9.4 8.4-10.2 PROTEIN,TOTAL 7.9 6.0-8.3 ALBUMIN 3.6 3.5-5.2 BILIRUBIN, TOTAL 0.8 0.2-1.2 MAGNESIUM 2.2 1.6-2.6 ANION GAP 11 5-15 ALKALINE PHOSPHATASE 106 40-150 ALT/SGPT 11 <55 AST/SGOT 10 <34 ESTIMATED GFR(eGFR) 163 >60 Dec 14, 2020 04:25 [facility] COVID-19 DIAGNOSTIC Speci men Type: NASOPHARYNGEAL AM PANEL (BIOFIRE) Comment: Biomegan Borja (618) Ordering Provid er: MANISH RAGSDALE Report Released Date/Time: Dec 14, 2020 04:20 AM Reporting Lab: [facility] [address] Performing Lab: [facility] [address] C PNEUMONIAE PCR NOT DETECTED NOT DETECT [...] PCR NOT DETECTED NOT DE TECTED B PARAPERTUS([id number]) NOT DETECTED NOT DE TECTED B PERTUSSIS(PTXP) NOT DETECTED NOT DETEC CARLO RESPIRATORY INTERP No pathogens detected COVID-19 DIAG (BIOF) NOT DETECTED NOT DE TECTED Vital Signs: All taken on the encounter date This section contains inpatient and outpatient Vital Signs collected on the date of the Encounter. Date/Time Temperature Pulse Blood Respiratory SP02 Pain Height Weight Joseph dy Source Pressure Rate Mass Index Jan 05, 96.7 F 75 111/71 18 /min 95 % 7 [place] 2020 10:29 /min mm[Hg] IS [facility] Social History: Smoking Status (Most current) and Tobacco Use (All prior to encounter date) This section includes the most current, and the historical, smoking and tobacco-related health factors from the DC facility where the Encounter took place.Current Smoking Status This section includes the most current smoking, or tobacco-related health factor, from the DC facility where the Encounter took place. Date/Time Current Smoking Status Comment Facility July 09, 2020 02:00 PM VA-TOBACCO FORMER USER [facility] Tobacco Use History This section includes a history of the smoking, or tobacco- related health factors, that were collected on or before the date of the Encounter. The data comes from the DC facility where the Encounter took place. Date/Time Smoking Status/Tobacco Use Comment [facility] July 09, 2020 02:00 PM VA-TOBACCO QUIT 15 YRS OR MORE [facility] Apr 17, 2019 02:39 PM INPT NO TOBACCO USE IN LAST 30 DAYS [facility] Feb 04, 2019 10:37 AM VA-TOBACCO NEVER USED MINSasha [place] [facility] Oct 15, 2018 02:43 PM INPT NO TOBACCO USE IN LAST 30 DAYS [facility] Oct 13, 2018 11:30 PM INPT NO TOBACCO USE IN LAST 30 DAYS [facility] Sep 02, 2018 05:50 PM INPT NO TOBACCO USE IN LAST 30 DAYS [facility] Aug 12, 2018 07:28 PM INPT NO TOBACCO USE IN LAST 30 DAYS [facility] Jan 30, 2018 03:28 PM VA-TOBACCO FORMER USER [facility] Jan 30, 2018 03:28 PM VA-TOBACCO QUIT 15 YRS OR MORE [facility] May 29, 2017 04:53 PM INPT NO TOBACCO USE IN LAST 30 DAYS [facility] Apr 25, 2017 10:44 PM INPT NO TOBACCO USE IN LAST 30 DAYS [facility] Jan 01, 2017 06:40 PM INPT NO TOBACCO USE IN LAST 30 DAYS [facility] Dec 21, 2016 02:43 PM FORMER TOBACCO USER 7Y OR GREATER [facility] Sep 24, 2013 08:52 AM FORMER TOBACCO USER 7Y OR GREATER [facility] Advance Directives: All historical and current Section Date Range: From patient's date of to the date document was created. This section includes ALL of a patient's completed or amended DC Advance and Rescinded Directives. The entries below indicate that a directive exists for the patient, but an actual copy is not included with this document. The data comes from all [facility]. Date Advance Directives Provider Source May 29, 2017 CLINICAL WARNING CORNELIO FREITASAPOLI S [facility] May 16, 2017 ADVANCE DIRECTIVE SERENITY BUENROSTRO [facility] May 16, 2017 ADVANCE DIRECTIVE DISCUSSION SERENITY BUENROSTRO [place] [facility] May 04, 2017 CLINICAL WARNING FAWOLEMAGO [facility] May 04, 2017 CLINICAL WARNING GAEL ROSARIO [facility] Apr 26, 2017 CLINICAL WARNING JENNIFER DE LEON [facility] Jan 01, 2017 CLINICAL WARNING AYDE WELLS [facility] Jun 09, 2004 ADVANCE DIRECTIVE DARYL VILLARREAL [facility] Jun 07, 2004 ADVANCE DIRECTIVE SHERYL HOLLOWAY [facility] Radiology Reports: +/- 30 days of [...] the Encounter. The data comes from all DC treatment facilities. Date/Time Radiology Report Provider Source Dec 14, 2020 05:12 AM CTA CHEST FOR P.E. (P): RADIOLOGY,OUTSIDE [facility] JESSICA MOJICA [id number] -[birth year] 7 M SERVICE Exm Date: DEC 14, 2020@05:12 Req Phys: MELYSSA,MANISH Leroy Em Loc: [facility] EMERGENC Y DEPT WALK-IN (Re Img Loc: CT IMAGING Service: Unknown (Case [id number] COMPLETE) CTA CHEST (CT Detailed) CPT: 14851 Contrast Media : Non-ionic Iodinated Reason for Study: hemoptysis Clinical History: IS NOT under investigation for COVID-19 or is COVID-19 negative hemoptysis, history of chronic lung disease Res ponsible provider name and phone number to notify for cr itical findings if other than user placing the order and pager lis carlo below: User placing orders pager: [phone] LAST CREATININE 0.6 L (06/22/20) Report Status: Verified Date Reported: DEC 14, 2020 Date Verified: DEC 14, 2020 Warping Mill Operator E-Sig: Report: CT angiogram of the [...] ve. READING PHYSICIAN: Keron Francisco M.D. [phone] 12/14/2020 6:55 EDT [facility] National Teleradiology Program [phone] (For Medical Practitioner Use Only ) [address] [place] [address], [address] [place] [address] Attention Patients / Veterans: If you have ques tions or concerns about these test results, please contact your [facility] provider or primary care team. Primary Interpreting [...] the Encounter. The data comes from all DC treatment facilities. Date/Time Pathology Report Provider Source Dec 09, 2020 04:11 PM LR MICROBIOLOGY REPORT: TRISH PAN [facility] Reporting Lab: [facility] [CLIA# [id number]] [place] [address] Accession [UID]: [id number] [[id number]] Receiv ed: Dec 09, 2020@16:11 Collection sample: WOUND Collection date: Nov 16:11 Provider: FRANKLIN RICHEY Comment on specimen: Right plantar foot, SWAB RE CEIVED Test(s) ordered: GRAM STAIN............ ........ completed: Dec 09, 2020 22:11 CULTURE & SUSCEPTIBILITY...... completed: Nov 202020 * BACTERIOLOGY FINAL REPORT => Dec 12, 2020 14:4 0 TECH CODE: [id number] GRAM STAIN: DIRECT SMEAR of specimen before [...] --=--=--=--=--=--=--=--=--=--=--=--=-- Performing Laboratory: Bacteriology Report Performed By: [facility] [CLIA# [id number]] [place] [address] Encounter Notes: All associated encounter notes This section contains the clinical notes associated to the Encounter. Date/Time Encounter Note(s) Provider Source Jan 05, 2021 12:56 FARM MORTGAGE AGENT NOTE: KASSANDRA GARCIA [facility] PM LOCAL TITLE: FARM MORTGAGE AGENT NOTE STANDARD TITLE: FARM MORTGAGE AGENT NOTE DATE OF NOTE: JAN 05, 2021@12:56 ENTRY DATE: JAN 05, 2021@12:56:43 AUTHOR: KASSANDRA GARCIA EXP COSIGNER: URGENCY: STATUS: COMPLETED Refraction OD:-0.75+2.00x4 20/40-2 OS:+0.25+1.34o270 20/40-2 ADD:+2.75 /es/ KASSANDRA GARCIA HEALTH ASSURANCE ASSOCIATE Signed: 01/05/2021 13:04 Jan 05, 2021 12:24 FARM MORTGAGE AGENT NOTE: OSCAR CABRERA [facility] PM LOCAL TITLE: FARM MORTGAGE AGENT NOTE STANDARD TITLE: FARM MORTGAGE AGENT NOTE DATE OF NOTE: JAN 05, 2021@12:24 ENTRY DATE: JAN 05, 2021@12:24:57 AUTHOR: OSCAR CABRERA EXP COSIGNER: URGENCY: STATUS: COMPLETED oct of the macula ou completed. /vinicio/ OSCAR CABRERA Grab[employer] TECH Signed: 01/05/2021 12:25 Jan 05, 2021 12:19 OPHTHALMOLOGY ATTENDING NOTE: JOSIANE STODDARD [facility] PM LOCAL TITLE: OPHTHALMOLOGY CLINIC NOTE STANDARD TITLE: OPHTHALMOLOGY ATTENDING NOTE DATE OF NOTE: JAN 05, 2021@12:19 ENTRY DATE: JAN 05, 2021@12:19:37 AUTHOR: JOSIANE STODDARD EXP COSIGNER: URGENCY: STATUS: COMPLETED HPI: S/p CEIOL OU (OD 07/12/2020; OS 08/03/2020). Patient reports vision is still blurry. He is us ing lubricating eyedrops only once daily. He stopped latanoprost and prednisol one 3-4 weeks ago. I have reviewed the color technician's note and agree with their findings. Last refraction: Vision: OD:CC(with glasses) OD: 20/40-1 Pinhole: 20/40+2 Near: 20/ Vision: OS:CC(with glasses) 0S: 20/40-2,fuzzy Pinhole: 20/No Improvement Near: 20/ Confrontational [place]: Full to finger counting: Right: Left: Extra Ocular Movement: Pupils: Right: Round Left: Round Size: Right: 3.5 Left: 3.5 React to light: Right: Yes Left: Yes Afferent pupil defect: Right:No Grade: Left: No Grade: Note: Intra-ocular pressure (IOP): OD: 10 OS: 11 iCare Dilation: mydriacyl 1% and neosynephrine OU Dec@12:04 Pachymetry: OD: 567 OS: 596 Slit Lamp Examination: L/L: dc, blepharitis C/S: white and quiet K: OD rare pee; OS rare pee; diabetic striae wi th tr folds OU AC: Deep and Quiet I: flat, round L: pcl OU Fundus Examination: vitreous: quiet optic nerve: tilted, pink, OD: 0.2 C/D; OS: 0.3 C/D macula: flat, OS blunted FLR vessels: normal periphery: flat, OD: temporal pigmentary change , U-shaped, no flap/SRF/heme on 360 SR. 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 S/p CEIOL OS c/b UES v. 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 S/p CEIOL OD -pre-op VA = OD 20/30- -post-op VA = OD 20/40 -CEIOL OD 07/12/2020 (ZCB00 +27.0) -K edema with 1+ D folds despite PF taper -Pachy OD: 567 OS: 596 (stable) -OCT Macula 8. WNL -Happy with vision - Cont PFAT's QID 3. Dermatochalasis OU -s/p bleph by Dr. Sweeney 4. Diabetes mellitus with mild-mod NPDR -25 year history of DM2 -Mild-mod NPDR OU -Annual DFE 5. 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 Hx burned out GCA OD RTC: 2 months, VTD, MAC OCT Staff: Dr. Welch /vinicio/ JOSIANE STODDARD MD RESIDENT Signed: 01/05/2021 12:56 Jan 05, 2021 11:45 FARM MORTGAGE AGENT NOTE: [facility] TITLE: FARM MORTGAGE AGENT NOTE AMADOU BENTLEY STANDARD TITLE: FARM MORTGAGE AGENT NOTE DATE OF NOTE: JAN 05, 2021@11:45 ENTRY DATE: JAN 05, 2021@11:45:42 AUTHOR: IBETH MCCULLOUGH COSIGNER: URGENCY: STATUS: COMPLETED Eye Start Exam Patient: JESSICA MOJICA Sex: MALE Birthdate: [birth year] Chief complaint: F/u Oculoplastic sx Pt states his vision is not improving,OU. His eyes feel tight, but no pain. No tearing , just dry,& worse at night. Floaters seem less. AT qd , ou WC once in a while. History of Present Illness: Location: Intensity: Duration: Active problems - Computerized Problem List is t he source for the followin. Osteoarthritis - C-spine; L-spine; chronic low back pain on op ioids 2. Obstructive sleep apnea - on CPAP 3. Gastroesophageal reflux disease 4. Restless legs syndrome 5. Nephrolithiasis 6. Depression 7. Coronary artery disease - STEMI; CABG x 4 (emergent) 05/06; EF 55% 12/06 , hypotensive on ACEI, HFpEF 8. Diabetes mellitus - neuropathy; foot ulcer with cuboid osteomyeli tis 09/06 - Charcot arthropathy; PAVE Risk 3 9. 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 Pulmonary thromboembolism - on CTA 07/06; possible ; xeralto -> inc LFT, n ot on anticoag 03/23 hemoptysis 11. Essential tremor - on propranolol 12. Hemoptysis - and infiltrates; ILD; bronchoscopy 08/2017; pr esumed MTX toxicity 13. Aortic valve stenosis 14. 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 Charcot's joint of foot 16. Peripheral vascular disease - angiogram 06/15/2020 atherectomy and balloon a ngioplasty - chronic venous stasis, h/o venous pump use 17. Heart failure Surgeries: NOV 12, 2020 Proc: Bilateral Upper Lid Blepharop lasty / Right upper lid, Han's muscle conjunctival resection AUG 03, 2020 Proc: CE IOL LEFT EYE JAN 25, 2021 Proc: Right Gastrocnemius recession JULY 12, 2020 Proc: CE IOL RIGHT SEP 11, 2018 Proc: Right Foot Wound Debridement, Bone Debridement,Bone Biopsy,Wound Vac Placement APR 26, 2017 Proc: CABG X4, MIRZA TO LAD Follow Up Exam Eye Medications AT qd Patient denies eye medication use. Allergies: RIVAROXABAN (Jul 25, 2017) No new Allergies. Last refraction: Vision: OD:CC(with glasses) OD: 20/40-1 Pinhole: 20/40+2 Near: 20/ Vision: OS:CC(with glasses) 0S: 20/40-2,fuzzy Pinhole: 20/No Improvement Near: 20/ Confrontational [place]: Full to finger counting: Right: Left: Extra Ocular Movement: Pupils: Right: Round Left: Round Size: Right: 3.5 Left: 3.5 React to light: Right: Yes Left: Yes Afferent pupil defect: Right:No Grade: Left: No Grade: Note: Intra-ocular pressure (IOP): OD: 10 OS: 11 iCare Dilation: mydriacyl 1% and neosynephrine OU Dec@12:04 Pachymetry: OD: 567 OS: 596 /es/ [facility] CERTIFIED UNARMED SECURITY GUARD Signed: 01/05/2021 12:09
--- OUTSIDE RECORDS SUMMARY | 2021-12-23 16:07 | XMS_ITS | Encounter Summary ---
:1945 Author Organization [facility] Address [address] [place] [address] Support Name Relationship Address Phone FRANCES GANDARA Unavailable [address] [place] [address] FRANCES GANDARA Unavailable [address] [place] [address] FRANCES GANDARA Unavailable [address] [place] [address] FRANCES GANDARA Unavailable [address] [place] [address] Insurance Providers: All historical and current Section [...] MEDICARE MEDICARE PART Apr 19, PART A [id number] Whit MOJICA (WNR) (M) A 2007 50A [phone] JESSICA MEDICARE MEDICARE PART Apr 19, PART A [id number] 800 Whit MOJICA (WNR) (M) A 2007 [id number] [phone] JESSICA Selected Encounter This section includes the information on record at ID for the Encounter. Date/Time Encounter Type Encounter Reason Provider Source Description Jan 25, 2021 [facility] ICD-10-CM LARISASANDOVAL RITTER 09:30 AM ASSMT&MGMT 5-10 G25.81 L Restless legs syndrome with Provider Comments: Restless Legs Syndrome IHE Encounter Template Text not used by [facility] Assessments - Encounter Diagnoses This section includes the primary and secondary diagnoses documented for the Encounter. Date/Time Primary/Secondary Diagnosis Name Provider Source Diagnosis Jan 25, 2021 PRIMARY Restless legs SANDOVAL GREGORY 09:31 AM syndrome L [facility] Plan of Treatment: Future Appointments (+ 6 months) and Future Tests (+/- 45 days) The Plan of Treatment section includes future care activities for the [facility] This section includes future appointments and future orders which are active, pending orscheduled.Future Appointments This section includes appointments that were scheduled to occur 6 months from the date of the Encounter, up to a maximum of 20 appointments. The data comes from all ID treatment facilities. Appointment Date/Time Appointment Type Appointment Facili ty Name Jan 27, 2021 03:30 PM AMBULATORY - REHAB MEDICINE [facility] Feb 02, 2021 01:00 PM AMBULATORY - SURGERY [facility] Feb 09, 2021 12:45 PM AMBULATORY - NONE [facility] Feb 14, 2021 02:00 PM AMBULATORY - SURGERY [facility] Feb 16, 2021 08:30 AM AMBULATORY - REHAB MEDICINE [facility] Feb 17, 2021 02:30 PM AMBULATORY - NONE [facility] Feb 23, 2021 09:00 AM AMBULATORY - NONE [facility] Feb 23, 2021 01:30 PM AMBULATORY - NONE [facility] Feb 23, 2021 02:30 PM AMBULATORY - MEDICINE [facility] Feb 28, 2021 08:00 AM AMBULATORY - NONE [facility] Mar 01, 2021 07:45 AM AMBULATORY - SURGERY [facility] Mar 01, 2021 08:43 AM AMBULATORY - MEDICINE [facility] Mar 01, 2021 09:44 AM AMBULATORY - NONE [facility] Mar 02, 2021 02:00 PM AMBULATORY - REHAB MEDICINE [facility] Mar 03, 2021 01:00 PM AMBULATORY - SURGERY [facility] Mar 08, 2021 01:00 PM AMBULATORY - NONE [facility] Mar 09, 2021 10:45 AM AMBULATORY - SURGERY [facility] Mar 09, 2021 11:30 AM AMBULATORY - NONE [facility] Mar 10, 2021 10:45 AM AMBULATORY - NONE [facility] Mar 17, 2021 11:30 AM AMBULATORY - NONE [facility] Active, Pending, and Scheduled Orders This section includes a listing of several types of active, pending, and scheduled orders, including clinic medications orders, diagnostic test orders, procedure orders and consult orders; where the start date of the order is 45 days before the date of the Encounter or 45 days after the date of the Encounter. The data comes from all ID treatment facilities. Test Date/Time Test Type Test Details Facility Name Jan 25, 2021 06:15 Laboratory - COVID-19 DIAGNOSTIC PANEL [facility] AM Chemistry Order (CEPHEID) NASOPHARYNGEAL SWAB WC ONCE Social History: Smoking Status (Most current) and Tobacco Use (All prior to encounter date) This section includes the most current, and the historical, smoking and tobacco-related health factors from the ID facility where the Encounter took place.Current Smoking Status This section includes the most current smoking, or tobacco-related health factor, from the ID facility where the Encounter took place. Date/Time Current Smoking Status Comment Facility July 09, 2020 02:00 PM VA-TOBACCO FORMER USER [facility] Tobacco Use History This section includes a history of the smoking, or tobacco- related health factors, that were collected on or before the date of the Encounter. The data comes from the ID facility where the Encounter took place. Date/Time Smoking Status/Tobacco Use Comment [facility] it July 09, 2020 02:00 PM VA-TOBACCO QUIT 15 YRS OR MORE [facility] Apr 17, 2019 02:39 PM INPT NO TOBACCO USE IN LAST 30 DAYS [facility] Feb 04, 2019 10:37 AM VA-TOBACCO NEVER USED [place] [facility] Oct 15, 2018 02:43 PM INPT NO TOBACCO USE IN LAST 30 DAYS [facility] Oct 13, 2018 11:30 PM INPT NO TOBACCO USE IN LAST 30 DAYS [facility] Sep 02, 2018 05:50 PM INPT NO TOBACCO USE IN LAST 30 DAYS [facility] Aug 12, 2018 07:28 PM INPT NO TOBACCO USE IN LAST 30 DAYS [facility] Jan 30, 2018 03:28 PM VA-TOBACCO FORMER USER [facility] Jan 30, 2018 03:28 PM VA-TOBACCO QUIT 15 YRS OR MORE [facility] May 29, 2017 04:53 PM INPT NO TOBACCO USE IN LAST 30 DAYS [facility] Apr 25, 2017 10:44 PM INPT NO TOBACCO USE IN LAST 30 DAYS [facility] Jan 01, 2017 06:40 PM INPT NO TOBACCO USE IN LAST 30 DAYS [facility] Dec 21, 2016 02:43 PM FORMER TOBACCO USER 7Y OR GREATER [facility] Sep 24, 2013 08:52 AM FORMER TOBACCO USER 7Y OR GREATER [facility] Advance Directives: All historical and current Section Date Range: From patient's date of to the date document was created. This section includes ALL of a patient's completed or amended [place] Advance and Rescinded Directives. The entries below indicate that a directive exists for the patient, but an actual copy is not included with this document. The data comes from all ID facilities. Date Advance Directives Provider Source May 29, 2017 CLINICAL WARNING CORNELIO FREITAS [facility] May 16, 2017 ADVANCE DIRECTIVE CHITRASERENITY A [facility] May 16, 2017 ADVANCE DIRECTIVE DISCUSSION CHITRASERENITY A [place] [facility] May 04, 2017 CLINICAL WARNING MAGO DIAMOND [facility] May 04, 2017 CLINICAL WARNING GAEL ROSARIO [facility] Apr 26, 2017 CLINICAL WARNING JENNIFER DE LEON [facility] Jan 01, 2017 CLINICAL WARNING AYDE WELLS [facility] Jun 09, 2004 ADVANCE DIRECTIVE DARYL VILLARREAL [facility] Jun 07, 2004 ADVANCE DIRECTIVE SHERYL HOLLOWAY [facility] Encounter Notes: All associated encounter notes This section contains the clinical notes associated to the Encounter. Date/Time Encounter Note(s) Provider Source Jan 25, 2021 09:30 PHARMACY CONSULT: SANDOVAL GREGORY [facility] AM LOCAL TITLE: PHARMACY PRIOR AUTHORIZATION APPRO ZOILA CONSULT STANDARD TITLE: PHARMACY CONSULT DATE OF NOTE: JAN 25, 2021@09:30 ENTRY DATE: JAN 25, 2021@09:30:35 AUTHOR: SANDOVAL GREGORY EXP COSIGNER: URGENCY: STATUS: COMPLETED The medical record has been reviewed with regard to this prior authorization drug request. Medication requested: ROPINIROLE HCL 2MG SA TAB Medication indication: rls Medical history relevant to this request: Pt has trialed immediate release formulation at 4mg/d. SA formulation approved. The request is approved - A documented therapeutic failure of the prefer red formulary alternative(s) exists Active Outpatient Medications (including Supplie s): ACCU-CHEK GUIDE (GLUCOSE) TEST STRIP USE 1 STRIP TOPICALLY ACTIVE TWICE A DAY TO CHECK BLOOD SUGAR--USE WITHIN 3 MINUTES OF REMOVING FROM CONTAINER TEST AT DIFFERENT TIMES OF THE DAY OR DIRECTED ACETAMINOPHEN 500MG TAB TAKE ONE TABLET BY MOUTH EVERY 6 ACTIVE HOURS NEEDED FOR PAIN*NOT TO EXCEED 4000MG I N 24 HOURS FROM ALL SOURCES* ALBUTEROL 90MCG (CFC-F) 200D ORAL INHL INHALE 2 PUFFS BY ACTIVE INHALATION FOUR TIMES A DAY NEEDED FOR IMMED IATE RELIEF OF SHORTNESS OF BREATH *SHAKE WELL* ALCOHOL PREP PAD USE 1 PAD TOPICALLY DIRECTED ACTIVE ALOE VESTA PROTECTIVE TOP OINT APPLY TO LEFT PENNIE L AND ACTIVE RIGHT FOOT TOPICALLY SUNDAY, SUNDAY AND AY INSTRUCTED FOR DRESSING CHANGES ARTIFICIAL SALIVA (BIOTENE MOUTH) SPRAY SPRAY 1- 2 SPRAYS ACTIVE IN MOUTH EVERY HOUR NEEDED FOR DRY MOUTH ARTIFICIAL TEARS POLYVINYL ALCOHOL INSTILL 1 EUGENIA P IN BOTH ACTIVE EYES THREE TIMES A DAY NEEDED FOR DRY EYES ASPIRIN 81MG EC TAB TAKE ONE TABLET BY MOUTH TO ACTIVE PREVENT HEART ATTACK DO NOT CHEW ATORVASTATIN CALCIUM 80MG TAB TAKE ONE TABLET BY MOUTH AT ACTIVE BEDTIME FOR CHOLESTEROL AND HEART DISEASE BUMETANIDE 1MG TAB TAKE ONE TABLET BY MOUTH A DAY ACTIVE FOR FLUID RETENTION BUPROPION HCL 150MG 24HR SA TAB TAKE ONE TABLET BY MOUTH ACTIVE EVERY DAY CARBOXYMETHYLCELLULOSE NA 0.5% OPH SOLN INSTILL 1 DROP IN ACTIVE BOTH EYES FOUR TIMES A DAY FOR DRY EYES CLEANSER,WOUND SKINTEGRITY TOP SPRAY SPRAY TO LE FT HEEL ACTIVE AND RIGHT FOOT SUNDAY, SUNDAY AND SUNDAY INSTRUCTED FOR DRESSING CHANGES CODEINE 10/GG 100MG/5ML (ALC-F/SF) LIQ TAKE 5 ML TO 10 ML ACTIVE BY MOUTH THREE TIMES A DAY NEEDED FOR COUGH CYANOCOBALAMIN 1000MCG TAB TAKE TWO TABLETS BY M OUTH EVERY ACTIVE WEEK FOR VITAMIN B12 SUPPLEMENT DICLOFENAC NA 1% TOP GEL APPLY 4 GRAMS TO KNEE F OUR TIMES ACTIVE A DAY NEEDED FOR PAIN -USE DOSE CARD IN BOX TO MEASURE DOSE -MAXIMUM OF 32 GM PER DAY DRESS,MEPILEX BORDER FLEX 4X4IN #[id number] APPLY 1 DRESSING ACTIVE DRESSING,MEPILEX BORDER 4X4IN #[id number] TOPICALLY DIRECTED EMPAGLIFLOZIN 25MG TAB TAKE ONE-HALF TABLET BY M OUTH EVERY ACTIVE MORNING FOR DIABETES ERGOCALCIF 1,250MCG (D2-50,000UNIT) CAP TAKE ONE CAPSULE ACTIVE (S) BY MOUTH EVERY MONTH FLUTICASONE PROP 50MCG 120D NASAL INHL SPRAY 1 P UFF EACH ACTIVE NOSTRIL IN EACH NOSTRIL TWICE A DAY FOR NASAL USE GAUZE PAD 4IN X 4IN 8-PLY NONSTERILE USE GAUZE S PONGE ACTIVE TOPICALLY DIRECTED GLIPIZIDE 10MG TAB TAKE ONE TABLET BY MOUTH TWIC E A DAY ACTIVE TAKE 30 MINUTES BEFORE MEAL FOR DIABETES GLOVE LATEX X-LARGE PWDR-FREE NONSTERILE USE BOBO VE(S) ACTIVE DIRECTED HYDROCORTISONE 2.5% CREAM APPLY THIN LAVER TO AN KLE ACTIVE TOPICALLY THREE TIMES A DAY NEEDED FOR ITCHI NG INSULIN,GLARGINE 100 UNT/ML 3ML SOLOSTAR INJECT 8 UNITS ACTIVE UNDER THE SKIN AT BEDTIME FOR DIABETES DISPENSE WITH SOLSTAR PEN LANCET,SOFTCLIX USE 1 LANCET TOPICALLY DIRECT ED ACTIVE *DISPOSE OF IN A HARD-PLASTIC CONTAINER WITH A SCREW-ON LIDCONTACT GARBAGE HAULER FOR PROPER DISPOSAL LATANOPROST 0.005% OPH SOLN INSTILL 1 DROP IN LE FT EYE AT ACTIVE BEDTIME FOR GLAUCOMA REFRIGERATE BOTTLE UNTIL O PENED. LIDOCAINE 4% TOP CREAM APPLY MODERATE AMOUNT THR EE ACTIVE TIMES A DAY NEEDED FOR PAIN CREAM LIDOCAINE 5% PATCH APPLY 1 PATCH EVERY DAY FOR B ACK ACTIVE PAIN -WEAR FOR ONLY 12 HOURS AND THEN REMOVE AN D LEAVE OFF FOR 12 HOURS LOSARTAN 50MG TAB TAKE ONE-HALF TABLET BY MOUTH EVERY DAY ACTIVE (S) FOR HIGH BLOOD PRESSURE METFORMIN HCL 500MG/5ML ORAL SOLN TAKE TWO TEASP OONSFUL BY ACTIVE MOUTH TWICE A DAY MICONAZOLE NITRATE 2% TOP PWDR USE TO AFFECTED A CLARKE ACTIVE TOPICALLY TWICE A DAY FOR FUNGAL INFECTION/GROI N RASH MULTIVIT W/MINERALS, CAP/TAB TAKE 1 TABL ET BY ACTIVE MOUTH EVERY DAY FOR FOLIC ACID AND IRON DEFICIE NCY (REPLACES FERROUS SULFATE) NEEDLE,PEN 31G,8MM USE 1 NEEDLE, NEEDLE, PEN 31G 8MM ACTIVE TOPICALLY DIRECTED *DISPOSE OF IN A HARD-ZARIA STIC CONTAINER WITH A SCREW-ON LID CONTACT GARBAGE HAULER FOR PROPER DISPOSAL TO USE WITH GLARGINE OXYCODONE 5MG/ACETAMINOPHEN 325MG TAB TAKE 2 TAB LETS BY ACTIVE (S) MOUTH THREE TIMES A DAY FOR SEVERE FOOT PAIN PAD,ABDOMINAL 7.5 X 8 STERILE USE PAD TOPICALLY ACTIVE DIRECTED POTASSIUM CHLORIDE 20MEQ/PKT ORAL PWD TAKE 1 PAC KET BY ACTIVE MOUTH EVERY DAY --TAKE WITH WATER-- PREDNISOLONE ACETATE 1% OPH SUSP INSTILL 1 DROP IN ACTIVE OPERATIVE EYE FOUR TIMES A DAY SHAKE WELL FOR POST-OP INFLAMMATION PREGABALIN 100MG ORAL CAP TAKE ONE CAPSULE BY MO UTH THREE ACTIVE TIMES A DAY FOR NERVE PAIN -REPLACES GABAPENTIN PROPRANOLOL HCL 80MG TAB TAKE ONE TABLET BY MOUT H TWICE A ACTIVE DAY FOR HAND TREMOR ROPINIROLE HCL 2MG SA TAB TAKE TWO TABLETS BY MO UTH EVERY PENDING DAY ROPINIROLE HCL 2MG TAB TAKE ONE TABLET BY MOUTH TWICE A ACTIVE (S) DAY FOR RESTLESS LEG (NOTE DOSE REDUCTION PER P HARMACY RECOMMENDATION) SEMAGLUTIDE 1MG/0.75ML INJ PEN 3ML INJECT 1MG UN ALEENA THE ACTIVE SKIN EVERY WEEK SILVASORB GEL,TOP APPLY TO AFFECTED AREAS TOPICA LLY ONCE ACTIVE DAILY FOR FOOT ULCER SODIUM CHLORIDE 5% OPH OINT APPLY THIN STRIP TO BOTH EYES ACTIVE AT BEDTIME SODIUM CHLORIDE 5% OPH SOLN INSTILL 1 DROP IN NANCY TH EYES ACTIVE FOUR TIMES A DAY SODIUM FLUORIDE 1.1% TOOTHPASTE BRUSH SMALL AMOU NT MOUTH ACTIVE EVERY MORNING AND AT BEDTIME ON TOOTHBRUSH, BRU SH FOR 2 MINUTES. TADALAFIL 20MG TAB TAKE ONE TABLET BY MOUTH AT B EDTIME ACTIVE TAKE AT LEAST 30 MINUTES BEFORE ANTICIPATED SEX UAL ACTIVITY. MAXIMUM 4 DOSES FOR 30-DAY SUPPLY TRAZODONE HCL 50MG TAB TAKE ONE TABLET BY MOUTH AT BEDTIME ACTIVE NEEDED FOR SLEEP TRIAMCINOLONE ACETONIDE 0.1% OINT APPLY MODERATE AMOUNT ACTIVE TWICE A DAY NEEDED FOR ITCHING AVOID FACE, GROIN & ARMPITS *FOR EXTERNAL USE ONLY VANICREAM TOP CREAM APPLY THIN LAYER TOPICALLY E VERY DAY ACTIVE FOR DRY SKIN APPLY TO FEET AND LEGS VITAMIN E 180MG (400UNIT) CAP TAKE ONE CAPSULE B Y MOUTH ACTIVE (S) EVERY DAY Non-VA OXYMETAZOLINE HCL 0.05% NASAL SPRAY 1 SPR AY EACH ACTIVE NOSTRIL NEEDED /vinicio/ SANDOVAL GREGORY PHARMACIST Signed: 01/25/2021 09:31
--- OUTSIDE RECORDS SUMMARY | 2021-12-23 16:09 | XMS_ITS | Encounter Summary ---
:1945 Author Organization [facility] Address [address] [place] [id number] Support Name Relationship Address Phone FRANCES GANDARA Unavailable [address] [place] [address] FRANCES GANDARA Unavailable [address] [place] [address] FRANCES GANDARA Unavailable [address] [place] [address] FRANCES GANDARA Unavailable [address] [place] [address] Insurance Providers: All historical and current Section [...] MEDICARE MEDICARE PART Apr 19, PART A [id number] 800 Whit MOJICA (WNR) (M) A 2007 50A [phone] JESSICA MEDICARE MEDICARE PART Apr 19, PART A [id number] 800 Whit MOJICA (WNR) (M) A 2007 [id number] [phone] JESSICA Selected Encounter This section includes the information on record at [place] for the Encounter. Date/Time Encounter Type Encounter Description Reason Provider Source Jan 24, 2021 09:46 Outpatient Encounter TELEPHONE TRIAGE AM IHE Encounter Template Text not used by [place] Plan of Treatment: Future Appointments (+ 6 [...] 20 appointments. The data comes from all [facility]. Appointment Date/Time Appointment Type Appointment Facili ty Name Jan 27, 2021 03:30 PM AMBULATORY - REHAB MEDICINE [facility] Feb 02, 2021 01:00 PM AMBULATORY - SURGERY [facility] Feb 09, 2021 12:45 PM AMBULATORY - NONE [facility] Feb 14, 2021 02:00 PM [facility]UL[facility] - SURGERY [facility] Feb 16, 2021 08:30 AM AMBULATORY - REHAB MEDICINE [facility] Feb 17, 2021 02:30 PM AMBULATORY - NONE [facility] Feb 23, 2021 09:00 AM AMBULATORY - NONE [facility] Feb 23, 2021 01:30 PM AMBULATORY - NONE [facility] Feb 23, 2021 02:30 PM AMBULATORY - MEDICINE [facility] Feb 28, 2021 08:00 AM AMBULATORY - NONE [facility] Mar 01, 2021 07:45 AM AMBULATORY - SURGERY [facility] Mar 01, 2021 08:43 AM AMBULATORY - MEDICINE [facility] Mar 01, 2021 09:44 AM AMBULATORY - NONE [facility] Mar 02, 2021 02:00 PM AMBULATORY - REHAB MEDICINE [facility] Mar 03, 2021 01:00 PM AMBULATORY - SURGERY [facility] Mar 08, 2021 01:00 PM AMBULATORY - NONE [facility] Mar 09, 2021 10:45 AM AMBULATORY - SURGERY [facility] Mar 09, 2021 11:30 AM AMBULATORY - NONE [facility] Mar 10, 2021 10:45 AM AMBULATORY - NONE [facility] Mar 17, 2021 11:30 AM AMBULATORY - NONE [facility] Active, Pending, and Scheduled Orders This section includes a listing of several types of active, pending, and scheduled orders, including clinic medications orders, diagnostic test orders, procedure orders and consult orders; where the start date of the order is 45 days before the date of the Encounter or 45 days after the date of the Encounter. The data comes from all [facility]. Test Date/Time Test Type Test Details Facility Name Jan 25, 2021 06:15 Laboratory - COVID-[address] [facility] AM Chemistry Order (CEPHEID) NASOPHARYNGEAL SWAB WC ONCE Social History: Smoking Status (Most current) and Tobacco Use (All prior to encounter date) This section includes the most current, and the historical, smoking and tobacco-related health factors from the [place] facility where the Encounter took place.Current Smoking Status This section includes the most current smoking, or tobacco-related health factor, from the [place] facility where the Encounter took place. Date/Time Current Smoking Status Comment Facility July 09, 2020 02:00 PM VA-TOBACCO FORMER USER [facility] Tobacco Use History This section includes a history of the smoking, or tobacco- related health factors, that were collected on or before the date of the Encounter. The data comes from the [place] facility where the Encounter took place. Date/Time Smoking Status/Tobacco Use Comment [facility] it July 09, 2020 02:00 PM VA-TOBACCO QUIT 15 YRS OR MORE [facility] Apr 17, 2019 02:39 PM INPT NO TOBACCO USE IN LAST 30 DAYS [facility] Feb 04, 2019 10:37 AM VA-TOBACCO NEVER USED TROY BLNATON [facility] Oct 15, 2018 02:43 PM INPT NO TOBACCO USE IN LAST 30 DAYS [facility] Oct 13, 2018 11:30 PM INPT NO TOBACCO USE IN LAST 30 DAYS [facility] Sep 02, 2018 05:50 PM INPT NO TOBACCO USE IN LAST 30 DAYS [facility] Aug 12, 2018 07:28 PM INPT NO TOBACCO USE IN LAST 30 DAYS [facility] Jan 30, 2018 03:28 PM VA-TOBACCO FORMER USER [facility] Jan 30, 2018 03:28 PM VA-TOBACCO QUIT 15 YRS OR MORE [facility] May 29, 2017 04:53 PM INPT NO TOBACCO USE IN LAST 30 DAYS [facility] Apr 25, 2017 10:44 PM INPT NO TOBACCO USE IN LAST 30 DAYS [facility] Jan 01, 2017 06:40 PM INPT NO TOBACCO USE IN LAST 30 DAYS [facility] Dec 21, 2016 02:43 PM FORMER TOBACCO USER 7Y OR GREATER [facility] Sep 24, 2013 08:52 AM FORMER TOBACCO USER 7Y OR GREATER [facility] Advance Directives: All historical and current Section Date Range: From patient's date of to the date document was created. This section includes ALL of a patient's completed or amended [place] Advance and Rescinded Directives. The entries below indicate that a directive exists for the patient, but an actual copy is not included with this document. The data comes from all [place] facilities. Date Advance Directives Provider Source May 29, 2017 CLINICAL WARNING CORNELIO FREITAS [facility] May 16, 2017 ADVANCE DIRECTIVE SERENITY [facility]ROSTRO [place] [facility] May 16, 2017 ADVANCE DIRECTIVE DISCUSSION [facility] May 04, [address] [facility] May 04, 2017 CLINICAL WARNING GAEL ROSARIO [facility] Apr 26, 2017 CLINICAL WARNING NANCYJENNIFER KUMAR [facility] Jan 01, 2017 CLINICAL WARNING AYDE WELLS [facility] Jun 09, 2004 ADVANCE DIRECTIVE VILLARREALDARYL [facility] Jun 07, 2004 ADV[address] DIRECT[address] SHERYL HOLLOWAY [facility] Encounter Notes: All associated encounter notes This section contains the clinical notes associated to the Encounter. Date/Time Encounter Note(s) Provider Source Jan 24, 2021 09:46 AM REPORT OF CONTACT: PATRIZIA STODDARD [facility] LOCAL TITLE: PATIENT CONTACT NOTE D STANDARD TITLE: REPORT OF CONTACT DATE OF NOTE: JAN 24, 2021@09:46 ENTRY DATE: JAN 24, 2021@09:46:44 AUTHOR: EDUARDO STODDARD COSIGNER: URGENCY: STATUS: COMPLETED PATIENT CONTACT NOTE Has [facility] Call [facility] Phone number verified as correct. [phone] The received a call Sunday01/21/21 that his surgery was cancelled because of an appt he did not show for, that he was not notified he had. meet with Dr. Brock for 1/2 [facility] mid -December and was told he would see him 01/25/21. The stated he received a call from [facility] this morning and was told they ca ncelled all surgeries at [facility] because there are no rooms at the hospital. The stated he has made preparations for this surgery at home. The patient was told to contact his primary care provider regarding community care. /vinicio/ PATRIZIA RAMIREZ VISN23 [facility] Signed: 01/24/2021 10:01 Receipt Acknowledged By: 01/24/2021 10:43 /vinicio/ Myrna Schofield RNC patient care provider * AWAITING SIGNATURE * CARIDAD DENNIS 01/24/2021 ADDENDUM STATUS: COMPLETED spoke with . will for flores message to Alix Varela/Dr. Brock, that due to the surgery delay, is asking to be re ferred out for community care for the foot procedure. /vinicio/ Myrna Schofield RNC patient care provider Signed: 01/24/2021 10:46 Receipt Acknowledged By: 01/24/2021 12:08 /vinicio/ ALIX VARELA, FARM FIELD MANAGER NURSE 01/24/2021 11:53 /vinicio/ DEBRA BROCK DPM STAFF WATER CHASER 01/24/2021 ADDENDUM STATUS: COMPLETED Attempted to call x 2, no answer on phon e, left voicemail. requesting [facility], unclear if current situ ation warrants approval for [facility]ITC. Will place [facility] Podiatry Consult on his be half, will require higher authority to approve for med ical complexity as he does not meet DST drive time. Continue to recommend better glucose con trol. Continue to follow up with wound clinic as sched uled. Discharge from [facility] at this time as surgery cancelled and requesting CITC Continue follow up in Podiatry Annual Exam Clini c, order request placed /vinicio/ DEBRA BROCK DPM STAFF WATER CHASER Signed: 01/24/2021 12:02 Receipt Acknowledged By: 01/24/2021 12:06 /vinicio/ ALIX VARELA, FARM FIELD MANAGER NURSE * AWAITING SIGNATURE * CARIDAD DENNIS
--- OUTSIDE RECORDS SUMMARY | 2021-12-23 16:10 | XMS_ITS | Encounter Summary ---
:1945 Author Organization [facility] Address [address] [place] [id number] Support Name Relationship Address Phone FRANCES GANDARA Unavailable [address] [place] [address] FRANCES GANDARA Unavailable [address] [place] [address] FRANCES GANDARA Unavailable [address] [place] [address] FRANCES GANDARA Unavailable [address] [place] [address] Insurance Providers: All historical and current Section [...] MEDICARE MEDICARE PART Apr 19, PART A [id number] [place] (WNR) (M) A 2007 50A [phone] JESSICA MEDICARE MEDICARE PART Apr 19, PART A [id number] [place] (WNR) (M) A 2007 [id number] [phone] JESSICA Selected Encounter This section includes the information on record at [place] for the Encounter. Date/Time Encounter Type Encounter Reason Provider Source Description Jan 24, 2021 Outpatient TELEPHONE ICD-10-CM E11.8 ARMAAN MARTINEZ 06:05 PM Encounter PRIMARY CARE Type 2 diabetes N STUART mellitus with unspecified complications with Provider Comments: Diabetes mellitus ([facility] [id number]) IHE Encounter Template Text not used by [place] Assessments - Encounter Diagnoses This section includes the primary and secondary diagnoses documented for the Encounter. Date/Time Primary/Secondary Diagnosis Name Provider Source Diagnosis Jan 24, 2021 PRIMARY Type 2 diabetes ARMAAN MARTINEZ [place] 06:05 PM mellitus with N N[facility]ISO [facility] unspecified complications Jan 24, 2021 SECONDARY Charcot's joint, ARMAAN MARTINEZ [place] 06:05 PM right ankle and N NARCISO [facility] foot Plan of Treatment: Future Appointments (+ 6 months) and Future Tests (+/- 45 days) The Plan of Treatment section includes future care activities for the patient from all [place] treatmentfacilities. This section includes future appointments and future orders which are active, pending orscheduled.Future Appointments This section includes appointments that were scheduled to occur 6 months from the date of the Encounter, up to a maximum of 20 appointments. The data comes from all [place] treatment facilities. Appointment Date/Time Appointment Type Appointment Facili ty Name Jan 27, 2021 03:30 PM AMBULATORY - REHAB MEDICINE [facility] Feb 02, 2021 01:00 PM AMBULATORY - SURGERY [facility] Feb 09, 2021 12:45 PM AMBULATORY - NONE [facility] Feb 14, 2021 02:00 PM AMBULATORY - SURGERY [facility] Feb 16, 2021 08:30 AM AMBULATORY - REHAB MEDICINE [facility] Feb 17, 2021 02:30 PM AMBULATORY - NONE [facility] Feb 23, 2021 09:00 AM AMBULATORY - NONE [facility] Feb 23, 2021 01:30 PM AMBULATORY - NONE [facility] Feb 23, 2021 02:30 PM AMBULATORY - MEDICINE [facility] Feb 28, 2021 08:00 AM AMBULATORY - NONE [facility] Mar 01, 2021 07:45 AM AMBULATORY - SURGERY [facility] Mar 01, 2021 08:43 AM AMBULATORY - MEDICINE [facility] Mar 01, 2021 09:44 AM AMBULATORY - NONE [facility] Mar 02, 2021 02:00 PM AMBULATORY - REHAB MEDICINE [facility] Mar 03, 2021 01:00 PM AMBULATORY - SURGERY [facility] Mar 08, 2021 01:00 PM AMBULATORY - NONE [facility] Mar 09, 2021 10:45 AM AMBULATORY - SURGERY [facility] Mar 09, 2021 11:30 AM AMBULATORY - NONE [facility] Mar 10, 2021 10:45 AM AMBULATORY - NONE [facility] Mar 17, 2021 11:30 AM AMBULATORY - NONE [facility] Active, Pending, and Scheduled Orders This section [...] data comes from all [place] treatment facilities. Test Date/Time Test Type Test Details Facility Name Jan 25, 2021 06:15 Laboratory - COVID-19 DIAGNOSTIC PANEL [facility] AM Chemistry Order (CEPHEID) NASOPHARYNGEAL SWAB WC ONCE Social History: Smoking Status (Most current) and Tobacco Use (All prior to encounter date) This section includes the most current, and the historical, smoking and tobacco-related health factors from the NE facility where the Encounter took place.Current Smoking Status This section includes the most current smoking, or tobacco-related health factor, from the NE facility where the Encounter took place. Date/Time Current Smoking Status Comment Facility July 09, 2020 02:00 PM VA-TOBACCO FORMER USER [facility] Tobacco Use History This section includes a history of the smoking, or tobacco- related health factors, that were collected on or before the date of the Encounter. The data comes from the NE facility where the Encounter took place. Date/Time Smoking Status/Tobacco Use Comment [facility] July 09, 2020 02:00 PM VA-TOBACCO QUIT 15 YRS OR MORE [facility] Apr 17, 2019 02:39 PM INPT NO TOBACCO USE IN LAST 30 DAYS [facility] Feb 04, 2019 10:37 AM VA-TOBACCO NEVER USED [facility] Oct 15, 2018 02:43 PM INPT NO TOBACCO USE IN LAST 30 DAYS [facility] Oct 13, 2018 11:30 PM INPT NO TOBACCO USE IN LAST 30 DAYS [facility] Sep 02, 2018 05:50 PM INPT NO TOBACCO USE IN LAST 30 DAYS [facility] Aug 12, 2018 07:28 PM INPT NO TOBACCO USE IN LAST 30 DAYS [facility] Jan 30, 2018 03:28 PM VA-TOBACCO FORMER USER [facility] Jan 30, 2018 03:28 PM VA-TOBACCO QUIT 15 YRS OR MORE [facility] May 29, 2017 04:53 PM INPT NO TOBACCO USE IN LAST 30 DAYS [facility] Apr 25, 2017 10:44 PM INPT NO TOBACCO USE IN LAST 30 DAYS [facility] Jan 01, 2017 06:40 PM INPT NO TOBACCO USE IN LAST 30 DAYS [facility] Dec 21, 2016 02:43 PM FORMER TOBACCO USER 7Y OR GREATER [facility] Sep 24, 2013 08:52 AM FORMER TOBACCO USER 7Y OR GREATER [facility] Advance Directives: All historical and current Section Date Range: From patient's date of to the date document was created. This section includes ALL of a patient's completed or amended [place] Advance and Rescinded Directives. The entries below indicate that a directive exists for the patient, but an actual copy is not included with this document. The data comes from all [place] facilities. Date Advance Directives Provider Source May 29, 2017 CLINICAL WARNING CORNELIO FREITASI S [facility] May 16, 2017 ADVANCE DIRECTIVE SERENITY BUENROSTRO [facility] May 16, 2017 ADVANCE DIRECTIVE DISCUSSION [facility]STRO [facility] May 04, 2017 CLINICAL WARNING MAGO DIAMOND [facility] May 04, 2017 CLINICAL WARNING GAEL ROSARIO [facility] Apr 26, 2017 CLINICAL WARNING JENNIFER DE LEON [facility] Jan 01, 2017 CLINICAL WARNING AYDE WELLS [facility] Jun 09, 2004 ADVANCE DIRECTIVE DARYL VILLARREAL [facility] Jun 07, 2004 ADVANCE DIRECTIVE SHERYL HOLLOWAY [facility] Encounter Notes: All associated encounter notes This section contains the clinical notes associated to the Encounter. Date/Time Encounter Note(s) Provider Source Jan 24, 2021 06:05 PM PACT NOTE: GISELLE MARTINEZ [facility] LOCAL TITLE: MEDICINE CLINIC PROVIDER TELEPHONE NOTE STANDARD TITLE: PACT NOTE DATE OF NOTE: JAN 24, 2021@18:05 ENTRY DATE: JAN 24, 2021@18:05:17 AUTHOR: GISELLE MARTINEZ EXP COSIGNER: URGENCY: STATUS: COMPLETED History: called pt to review sugar AM sugar 170-190s. 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 which pt would time it according to when leg shakes start - will try standing 4mg SA instead. Education/Counseling: Time spent protection manager: 11-20 minutes /vinicio/ Giselle Martinez MD Staff Physician Signed: 01/24/2021 18:08
--- OUTSIDE RECORDS SUMMARY | 2021-12-23 16:12 | XMS_ITS | Encounter Summary ---
:1945 Author Organization Department [facility] rs Address [address] [place] [address] Support Name Relationship Address Phone FRANCES GANDARA Unavailable [address] [place] [address] FRANCES GANDARA Unavailable [address] [place] [address] FRANCES GANDARA Unavailable [address] [place] [address] FRANCES GANDARA Unavailable [address] [place] [address] Insurance Providers: All historical and current Section [...] MEDICARE MEDICARE PART Apr 19, PART A [id number] Whit MOJICA (WNR) (M) A 2007 50A [phone] JESSICA MEDICARE MEDICARE PART Apr 19, PART A [id number] Whit MOJICA (WNR) (M) A 2007 [id number] [phone] JESSICA Selected Encounter This section includes the information on record at [place] for the Encounter. Date/Time Encounter Type Encounter Reason Provider Source Description Jan 05, 2021 OFFICE O/P EST PRIMARY ICD-10-CM E11.8 ARMAAN MARTINEZ 10:00 AM LOW 20-29 MIN CARE/MEDICINE Type 2 diabetes N STUART mellitus with unspecified complications with Provider Comments: Diabetes mellitus ([facility] [id number]) IHE Encounter Template Text not used by [place] Assessments - Encounter Diagnoses This section includes the primary and secondary diagnoses documented for the Encounter. Date/Time Primary/Secondary Diagnosis Name Provider Source Diagnosis Jan 18, 2021 PRIMARY Type 2 diabetes ARMAAN MARTINEZ [facility] 03:36 PM mellitus with N NARCISO [facility] unspecified complications Jan 18, 2021 SECONDARY Essential ARMAAN MARTINEZ [place] 03:36 PM (primary) N NARCISO [place] hypertension Plan of Treatment: Future Appointments (+ 6 months) and Future Tests (+/- 45 days) The Plan of Treatment section includes future care activities for the patient from all [place] treatmentfacilities. This section includes future appointments and future orders which are active, pending orscheduled.Future Appointments This section includes appointments that were scheduled to occur 6 months from the date of the Encounter, up to a maximum of 20 appointments. The data comes from all [place] treatment facilities. Appointment Date/Time Appointment Type Appointment Facili ty Name Jan 06, 2021 09:30 AM AMBULATORY - REHAB MEDICINE [facility] Jan 10, 2021 01:30 PM AMBULATORY - MEDICINE [facility] Jan 10, 2021 02:30 PM AMBULATORY - MEDICINE [facility] Jan 12, 2021 02:00 PM AMBULATORY - SURGERY [facility] Jan 27, 2021 03:30 PM AMBULATORY - REHAB MEDICINE [facility] Feb 02, 2021 01:00 PM AMBULATORY - SURGERY [facility] Feb 09, 2021 12:45 PM AMBULATORY - NONE [facility] Feb 14, 2021 02:00 PM AMBULATORY - SURGERY [facility] Feb 16, 2021 08:30 AM AMBULATORY - REHAB MEDICINE [facility] Feb 17, 2021 02:30 PM AMBULATORY - NONE [facility] Feb 23, 2021 09:00 AM AMBULATORY - NONE [facility] Feb 23, 2021 01:30 PM AMBULATORY - NONE [facility] Feb 23, 2021 02:30 PM AM[facility]ULATORY - MEDICINE [facility] Feb 28, 2021 08:00 AM AMBULATORY - NONE [facility] Mar 01, 2021 07:45 AM AMBULATORY - SURGERY [facility] Mar 01, 2021 08:43 AM AMBULATORY - MEDICINE [facility] Mar 01, 2021 09:44 AM AMBULATORY - NONE [facility] Mar 02, 2021 02:00 PM AMBULATORY - REHAB MEDICINE [facility] Mar 03, 2021 01:00 PM AMBULATORY - SURGERY [facility] Mar 08, 2021 01:00 PM AMBULATORY - NONE [facility] Active, Pending, and Scheduled Orders This section includes a listing of several types of active, pending, and scheduled orders, including clinic medications orders, diagnostic test orders, procedure orders and consult orders; where the start date of the order is 45 days before the date of the Encounter or 45 days after the date of the Encounter. The data comes from all [place] treatment facilities. Test Date/Time Test Type Test Details Facility Name Nov 24, 2020 08:57 Pharmacy - Clinic [facility] PM Medication Order Dec 07, 2020 06:15 Laboratory - COVID-19 DIAGNOSTIC PANEL [facility] AM Chemistry Order (CEPHEID) NASOPHARYNGEAL SWAB WC ONCE Jan 25, 2021 06:15 Laboratory - COVID-19 DIAGNOSTIC PANEL [facility] AM Chemistry Order (CEPHEID) NASOPHARYNGEAL [...] Range Comment Dec 15, 2020 12:46 PM [facility] BNP Specim en Type: PLASMA No comment enter ed. Ordering Provid er: MAREK URENA Report Released Date/Time: June 22, 2020 11:29 AM Reporting Lab: [facility] [address] [facility] [address] Performing Lab: [facility] [address] [facility] [address] BNP 193 H <99 Dec 15, 2020 12:44 PM [facility] HEMOGLOBIN A1C Specim en Type: BLOOD No comment enter ed. Ordering Provid er: GISELLE MARTINEZ Report Released Date/Time: Aug 11, 2020 11:57 AM Reporting Lab: [facility] [address] [facility] [address] Performing Lab: [facility] [address] [facility] [address] HEMOGLOBIN A1C 9.5 H 4.0-6.0 Dec 15, 2020 12:44 PM [facility] B 12 Specim en Type: PLASMA No comment enter ed. Ordering Provid er: GISELLE MARTINEZ Report Released Date/Time: Aug 11, 2020 12:29 PM Reporting Lab: [facility] [address] [facility] [address] Performing Lab: [facility] [address] [facility] [address] B 12 1116 H 213-816 Dec 15, 2020 12:44 PM [facility] FOLATE Specim en Type: SERUM No comment enter ed. Ordering Provid er: GISELLE MARTINEZ Report Released Date/Time: Aug 11, 2020 12:29 PM Reporting Lab: [facility] [address] [facility] [address] Performing Lab: [facility] [address] [facility] [address] FOLATE 5.3 L >7.0 Dec 15, 2020 12:44 PM [facility] IRON GROUP Specim en Type: SERUM No comment enter ed. Ordering Provid er: GISELLE MARTINEZ Report Released Date/Time: Aug 11, 2020 12:29 PM Reporting Lab: [facility] [address] [facility] [address] Performing Lab: [facility] [address] [facility] [address] IRON 36 L 65-175 TIBC,CALCULATED 296 250-425 FERRITIN 265.0 21.8-274.7 IRON SATURATION 12 L 20-50 TRANSFERRIN 237 163-382 Dec 15, 2020 12:44 [facility] BASIC METABOLIC Specimen Type: PLASMA PM PANEL+MG No comment enter ed. Ordering Provid er: GISELLE MARTINEZ Report Released Date/Time: Aug 11, 2020 11:57 AM Reporting Lab: [facility] [address] [facility] [address] Performing Lab: [facility] [address] [facility] [address] CREATININE 0.6 L 0.7-1.2 UREA NITROGEN 12 8-26 GLUCOSE 277 H 74-100 SODIUM 137 136-145 POTASSIUM 4.3 3.5-5.1 CHLORIDE 100 98-107 CO2 26 22-29 CALCIUM 9.3 8.4-10.2 MAGNESIUM 2.0 1.6-2.6 ANION GAP 11 5-15 ESTIMATED GFR(eGFR) 132 >60 Dec 15, 2020 12:44 PM [facility] CBC & DIFF Specim en Type: BLOOD Comment: Automa carlo Differential Performed Ordering Provid er: GISELLE MARTINEZ Report Released Date/Time: Aug 11, 2020 12:29 PM Reporting [facility] [address] Performing Lab: [facility] [address] [facility] [address] WBC 6.29 4.0-11.0 RBC 5.29 4.6-6.2 HGB [...] GRAN 0.08 0-0.1 Dec 15, 2020 12:44 [facility] METHYLMALONIC ACID Specim en Type: SERUM PM No comment enter ed. Ordering Provid er: GISELLE MARTINEZ Report Released Date/Time: Dec 15, 2020 04:33 PM Reporting Lab: [facility] [address] Performing Lab: [facility] [address] METHYLMALONIC ACID 97 0-400 Dec 15, 2020 12:44 PM [facility] HOMOCYSTEINE Specim en Type: PLASMA No comment enter ed. Ordering Provid er: GISELLE MARTINEZ Report Released Date/Time: Dec 15, 2020 04:33 PM Reporting Lab: [facility] [address] [facility] [address] Performing Lab: [facility] [address] HOMOCYSTEINE 9.3 5.1-15.4 Dec 14, 2020 04:25 AM [facility] D-DIMER Specim en Type: PLASMA No comment enter ed. Ordering Provid er: MANISH RAGSDALE Report Released Date/Time: Dec 14, 2020 04:20 AM Reporting Lab: [facility] [address] [address] [facility] [address] Performing Lab: [facility] D[address] [facility] [address] D-DIMER 1102 H 0-500 Dec 14, 2020 04:25 AM [facility] PROCALCITONIN Specim en Type: PLASMA No comment enter ed. Ordering Provid er: MANISH RAGSDALE Report Released Date/Time: Dec 14, 2020 04:20 AM Reporting [facility] [address] Performing Lab: [facility] [address] PROCALCITONIN 0.44 H <0.09 Dec 14, 2020 04:25 [facility] EXTRA GOLD GEL TUBE Speci men Type: SERUM AM No comment enter ed. Ordering Provid er: MANISH RAGSDALE Report Released Date/Time: Dec 14, 2020 04:37 AM Reporting Lab: [facility] [address] Performing Lab: [facility] [address] EXTRA GOLD GEL TUBE RECEIVED Dec 14, 2020 04:25 AM [facility] CBC & DIFF Specim en Type: BLOOD Comment: Automa carlo Differential Performed Ordering Provid er: MANISH RAGSDALE Report Released Date/Time: Dec 14, 2020 04:20 AM Reporting Lab: [facility] [address] Performing Lab: [facility] [address] WBC 6.93 4.0-11.0 RBC 5.26 4.6-6.2 HGB [...] IMMATURE GRAN 0.06 0-0.1 Dec 14, 2020 [facility] COMPREHENSIVE METABOLIC Spec imen Type: PLASMA 04:25 AM PANEL+MG Comment: Automa carlo Differential Performed Ordering Provid er: MANISH RAGSDALE Report Released Date/Time: Dec 14, 2020 04:20 AM Reporting Lab: [facility] [address] [facility] [address] [facility]forming [facility] [address] CREATININE 0.5 L 0.7-1.2 UREA NITROGEN 12 8-26 GLUCOSE 203 H 74-100 SODIUM 135 L 136-145 POTASSIUM 4.2 3.5-5.1 CHLORIDE 100 98-107 CO2 24 22-29 CALCIUM 9.4 8.4-10.2 PROTEIN,TOTAL 7.9 6.0-8.3 ALBUMIN 3.6 3.5-5.2 BILIRUBIN, TOTAL 0.8 0.2-1.2 MAGNESIUM 2.2 1.6-2.6 ANION GAP 11 5-15 ALKALINE PHOSPHATASE 106 40-150 ALT/SGPT 11 <55 AST/SGOT 10 <34 ESTIMATED GFR(eGFR) 163 >60 Dec 14, 2020 04:25 [facility] COVID-19 DIAGNOSTIC Speci men Type: NASOPHARYNGEAL AM PANEL (BIOFIRE) Comment: Yari Borja (988) Ordering Provid er: MANISH RAGSDALE Report Released Date/Time: Dec 14, 2020 04:20 AM Reporting Lab: [facility] [address] Performing Lab: [facility] [address] C PNEUMONIAE PCR NOT DETECTED NOT DETECT [...] PCR NOT DETECTED NOT DE TECTED B PARAPERTUS([id number]) NOT DETECTED NOT DE TECTED B PERTUSSIS(PTXP) [...] 7 [place] 2020 10:29 /min mm[Hg] IS [facility] Social History: Smoking Status (Most current) and Tobacco Use (All prior to encounter date) This section includes the most current, and the historical, smoking and tobacco-related health factors from the [place] facility where the Encounter took place.Current Smoking Status This section includes the most current smoking, or tobacco-related health factor, from the [place] facility where the Encounter took place. Date/Time Current Smoking Status Comment Facility July 09, 2020 02:00 PM VA-TOBACCO FORMER USER [facility] Tobacco Use History This section includes a history of the smoking, or tobacco- related health factors, that were collected on or before the date of the Encounter. The data comes from the [place] facility where the Encounter took place. Date/Time Smoking Status/Tobacco Use Comment [facility] July 09, 2020 02:00 PM VA-TOBACCO QUIT 15 YRS OR MORE [facility] Apr 17, 2019 02:39 PM INPT NO TOBACCO USE IN LAST 30 DAYS [facility] Feb 04, 2019 10:37 AM VA-TOBACCO NEVER USED M[place] [facility] Oct 15, 2018 02:43 PM INPT NO TOBACCO USE IN LAST 30 DAYS [facility] Oct 13, 2018 11:30 PM INPT NO TOBACCO USE IN LAST 30 DAYS [facility] Sep 02, 2018 05:50 PM INPT NO TOBACCO USE IN LAST 30 DAYS [facility] Aug 12, 2018 07:28 PM INPT NO TOBACCO USE IN LAST 30 DAYS [facility] Jan 30, 2018 03:28 PM VA-TOBACCO FORMER USER [facility] Jan 30, 2018 03:28 PM VA-TOBACCO QUIT 15 YRS OR MORE [facility] May 29, 2017 04:53 PM INPT NO TOBACCO USE IN LAST 30 DAYS [facility] Apr 25, 2017 10:44 PM INPT NO TOBACCO USE IN LAST 30 DAYS [facility] Jan 01, 2017 06:40 PM INPT NO TOBACCO USE IN LAST 30 DAYS [facility] Dec 21, 2016 02:43 PM FORMER TOBACCO USER 7Y OR GREATER [facility] Sep 24, 2013 08:52 AM FORMER TOBACCO USER 7Y OR GREATER [facility] Advance Directives: All historical and current Section Date Range: From patient's date of to the date document was created. This section includes ALL of a patient's completed or amended [place] Advance and Rescinded Directives. The entries below indicate that a directive exists for the patient, but an actual copy is not included with this document. The data comes from all [facility]. Date Advance Directives Provider Source May 29, 2017 CLINICAL WARNING CORNELIO FREITAS S [facility] May 16, 2017 ADVANCE DIRECTIVE SERENITY BUENROSTRO [facility] May 16, 2017 ADVANCE DIRECTIVE DISCUSSION SERENITY [place]O [place] [facility] May 04, 2017 CLINICAL WARNING ALEXISWOLEMAGO [facility] May 04, 2017 CLINICAL WARNING GAEL ROSARIO [facility] Apr 26, 2017 CLINICAL WARNING MOISESJENNIFER P [facility] Jan 01, 2017 CLINICAL WARNING AYDE WELLS [facility] Jun 09, 2004 ADVANCE DIRECTIVE DARYL VILLARREAL [facility] Jun 07, 2004 ADVANCE DIRECTIVE SHERYL HOLLOWAY [facility] Radiology Reports: +/- 30 days of [...] the Encounter. The data comes from all [place] treatment facilities. Date/Time Radiology Report Provider Source Dec 14, 2020 05:12 AM CTA CHEST FOR P.E. (P): RADIOLOGY,OUTSIDE [facility] JESSICA MOJICA [id number] -[birth year] 7 M SERVICE Exm Date: DEC 14, 2020@05:12 Req Phys: MANISH RAGSDALE Loc: [facility] EMERGENC Y DEPT WALK-IN (Re Img Loc: CT IMAGING Service: Unknown (Case [id number] COMPLETE) CTA CHEST (CT Detailed) CPT: 78485 Contrast Media : Non-ionic Iodinated Reason for Study: hemoptysis Clinical History: IS NOT under investigation for COVID-19 or is COVID-19 negative hemoptysis, history of chronic lung disease Res ponsible provider name and phone number to notify for cr itical findings if other than user placing the order and pager lis carlo below: User placing orders pager: [phone] LAST CREATININE 0.6 L (06/22/20) Report Status: Verified Date Reported: DEC 14, 2020 Date Verified: DEC 14, 2020 Paint Stockman E-Sig: Report: CT angiogram of the chest/CT [...] ve. READING PHYSICIAN: Keron Francisco M.D. [phone] 12/14/2020 6:55 EDT [facility] National Teleradiology Program [phone] (For Medical Practitioner Use Only ) [address] [place] [address], [address] [place] [address] Attention Patients / Veterans: If you have ques tions or concerns about these test results, please contact your [facility] behavioral health provider or primary care team. Primary Interpreting [...] the Encounter. The data comes from all [place] treatment facilities. Date/Time Pathology Report Provider Source Dec 09, 2020 04:11 PM LR MICROBIOLOGY REPORT: [place] [facility] Reporting Lab: [facility] [CLIA# [id number]] [place] [address] Accession [UID]: [id number] [[id number]] Receiv ed: Dec 09, 2020@16:11 Collection sample: WOUND Collection date: Nov 16:11 Provider: FRANKLIN RICHEY Comment on specimen: Right plantar foot, SWAB RE CEIVED Test(s) ordered: GRAM STAIN............ ........ completed: Dec 09, 2020 22:11 CULTURE & SUSCEPTIBILITY...... completed: Nov 202020 * BACTERIOLOGY FINAL REPORT => Dec 12, 2020 14:4 0 TECH CODE: [id number] GRAM STAIN: DIRECT SMEAR of specimen before [...] --=--=--=--=--=--=--=--=--=--=--=--=-- Performing Laboratory: Bacteriology Report Performed By: [facility] [CLIA# [id number]] [address] [place] [address] Encounter Notes: All associated encounter notes This section contains the clinical notes associated to the Encounter. Date/Time Encounter Note(s) Provider Source Jan 05, 2021 10:30 INTERNAL MEDICINE OUTPATIENT NOTE: ANGELINA DOUGLAS [facility] AM LOCAL TITLE: MEDICINE CLINIC NURSING NOTE D STANDARD TITLE: INTERNAL MEDICINE OUTPATIENT NOT E DATE OF NOTE: JAN 05, 2021@10:30 ENTRY DATE: JAN 05, 2021@10:30:08 AUTHOR: VANGIE DOUGLAS EXP COSIGNER: URGENCY: STATUS: COMPLETED MEDICINE CLINIC NURSING NOTE Has ADDENDA * TYPE OF VISIT: Appointment Check In Type of appointment: In-person appointment REASON FOR VISIT: Routine check up ALLERGIES: RIVAROXABAN (Jul 25, 2017) VITAL SIGNS: Blood Pressure: 111/71 (01/05/2021 10:29) Pulse: 75 (01/05/2021 10:29) Respiration: 18 (01/05/2021 10:29) Temperature: 96.7 F [35.9 C] (01/05/2021 10:29) Weight: Unavailable (01/05/2021 10:29) Height: Unavailable (01/05/2021 10:29) BMI: BMI not available without height O2 Sat: 95 (01/05/2021 10:29) Pain: 7 (01/05/2021 10:29) PAIN SCREEN: Patient is having significant pain that they wo uld like to talk to their provider about today. Old (Chronic) (began more than 6 months ago) Patient states their average pain this past wee k is 7 Patient states the average number on how the ch ronic pain affects their enjoyment of life the past week is 7 Patient states during the past week the average number on how the pain has interfered with their general activity is 7 Pain Education Patient indicates readiness to learn and verbal izes understanding of the following: Managing Your Chronic Pain, Regaini ng Control of Your Life handout given Has concerns/questions, advised to discuss with provider MEDICATION Over the Counter/Herbal Medications: The patient denies taking any outside medicatio ns or herbals. Complete reminders at exit /es/ VANGIE DOUGLAS LPN LPN Signed: 01/05/2021 10:31 01/18/2021 ADDENDUM STATUS: COMPLETED medical writer does not see signed note by pcp from 12/20 09/08 appt. was this a preop for upcoming podiatry surgery? 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 Patient wasn't sure why he was here for appo intment # DM uncontrolled a1c 9.2->9.3->9.5 # R foot wound w/o evidence of infection; clinic all lesion stable Previously declined insulin # neuropathy - c/w metformin, glipizide, empa, and semaglutid e - c/w pregabalin which is helping with the pain # CAD h/o STEMI; CABG x 4 (emergent) 05/06; EF 55 % 12/06 # HTN uncontrolled SBP 140-160s recently 03/23 giuseppe n[; prev hypotensive on ACEI # HFpEF TTE repeat 12/2020 pending # mod w murmur on exam - c/w atorvastatin, aspirin. not on BB due to lo w HR; not on DYLAN due to prev hypotension - on stable Bumex 1mg BID - losartan restarted see prob list TSH ____ PSHx FHx see records Reviewed available labs/scans today as appropria te RTC - routine appt in 6-12 m (1yr for co-mged pt s). Sooner PRN if changes/new/worsening symptoms; co ntacts provided. Nursing notes reviewed. CC in nursing note/HPI. Updated PMHx in Problems. HPI Reports doing well. No falls No new concerns regarding medications or chronic conditions [facility] appointment soon Reports the foot ulcer still stable without any discharge He says that he's working hard on reducing sugar and carbs in his diet to get sugar lower for the surgery Skin Tests/Immunizations: COVID-19 ([employer]), MRNA, LNP-S, PF, 30 MCG/0.3 ML DOSE Feb COVID-19 (PFIZ[employer]), MRNA, LNP-S, PF, 30 MCG/0.3 ML DOSE Mar INFLUENZA, INJECTABLE, QUADRIVALENT, PRESERVATI VE FREE Oct COVID-19 (PFIZER), MRNA, LNP-S, PF, 30 MCG/0.3 ML DOSE Nov See A&P for add'l details Relevant ROS: See HPI. Rest of ROS neg below Patient reports no fever/chills no chest pain/shortness of breath no blood in urine / stool no abdominal pain Med/Surg/Fam/Soc Hx: Reviewed and updated as kalyn campos in problem list Rated Disabilities: IMPAIRED HEARING 10% SC TINNITUS 10% SC HYPERTENSIVE VASCULAR DISEASE 10% SC BURSITIS 10% SC LOSS OF MOTION RING OR LITTLE FINGER 0% SC LUMBOSACRAL OR CERVICAL STRAIN 40% SC LIMITED MOTION OF ANKLE 20% SC LIMITED FLEXION OF FOREARM 10% SC LUMBOSACRAL OR CERVICAL STRAIN 30% SC VS & EXAM Temp: 98.4 F [36.9 C] (12/15/2020 13:02) Resp: 1 8 (12/15/2020 13:02) Pulse: 73 (12/15/2020 13:02) Pain: 7 (12/15/2020 13:02) Osat 96 (12/15/2020 13:02) Measurement DT BP 12/15/2020 13:09 160/88 12/15/2020 13:02 178/77 12/14/2020 04:51 147/78 Measurement DT WEIGHT LB(KG)[BMI] 12/15/2020 13:02 230(104.33)[31*] 11/01/2020 13:59 Unavailable 08/04/2020 09:08 234(106.14)[31*] Appearance: awake, alert, NAD; well appearing HEENT: NC/AT, normal conj, no external ear/nasal /oral abnormalities Neck: supple, no deformities, no LAD limited exam today due to time Labs/tests: see below. See A/P for relevant disc ussion. See CPRS problem list for any relevant external results MEDICATIONS Active Outpatient Medications (including Supplie s): Outpatient Medications Status 1) ACCU-CHEK GUIDE (GLUCOSE) TEST STRIP USE ST FOUR ACTIVE TIMES A DAY TO CHECK BLOOD SUGAR -USE WITHIN 3 MINUTES OF REMOVING FROM CONTAINER 2) ACETAMINOPHEN 500MG TAB TAKE ONE TABLET BY [facility] ACTIVE EVERY 6 HOURS NEEDED FOR PAIN*NOT TO EXCEED 4000MG IN 24 HOURS FROM ALL SOURCES* 3) ALBUTEROL 90MCG (CFC-F) 200D ORAL INHL INHALE 2 PUFFS ACTIVE BY INHALATION FOUR TIMES A DAY NEEDED FOR IMMEDIATE RELIEF OF SHORTNESS OF BREATH *SHAKE WELL* 4) ALCOHOL PREP PAD USE 1 PAD TOPICALLY DIREC CARLO ACTIVE 5) ALOE VESTA PROTECTIVE TOP OINT APPLY TO LEFT HEEL AND ACTIVE RIGHT FOOT TOPICALLY SUNDAY, SUNDAY AND AY INSTRUCTED FOR DRESSING CHANGES 6) ARTIFICIAL SALIVA (BIOTENE MOUTH) SPRAY SPRAY 1-2 ACTIVE SPRAYS IN MOUTH EVERY HOUR NEEDED FOR DRY MO UTH 7) ARTIFICIAL TEARS POLYVINYL ALCOHOL INSTILL 1 DROP IN ACTIVE BOTH EYES THREE TIMES A DAY NEEDED FOR DRY E YES 8) ASPIRIN 81MG EC TAB TAKE ONE TABLET BY MOUTH EVERY ACTIVE DAY TO PREVENT HEART ATTACK DO NOT CHEW 9) ATORVASTATIN CALCIUM 80MG TAB TAKE ONE TABLET BY ACTIVE MOUTH AT BEDTIME FOR CHOLESTEROL AND HEART DISE ASE 10) BUMETANIDE 1MG TAB TAKE ONE TABLET BY MOUTH TWICE A ACTIVE DAY FOR FLUID RETENTION 11) BUPROPION HCL 150MG 24HR SA TAB TAKE ONE TAB LET BY ACTIVE MOUTH EVERY DAY 12) CARBOXYMETHYLCELLULOSE NA 0.5% OPH SOLN INST ILL 1 ACTIVE DROP IN BOTH EYES FOUR TIMES A DAY FOR DRY EYES 13) CLEANSER,WOUND SKINTEGRITY TOP SPRAY SPRAY T O LEFT ACTIVE HEEL AND RIGHT FOOT SUNDAY, SUNDAY AND Y INSTRUCTED FOR DRESSING CHANGES 14) CODEINE 10/GG 100MG/5ML (ALC-F/SF) LIQ TAKE 5 ML TO ACTIVE 10 ML BY MOUTH THREE TIMES A DAY NEEDED FOR COUGH 15) CYANOCOBALAMIN 1000MCG TAB TAKE TWO TABLETS BY MOUTH ACTIVE EVERY WEEK FOR VITAMIN B12 SUPPLEMENT 16) DICLOFENAC NA 1% TOP GEL APPLY 4 GRAMS TO KN EE FOUR ACTIVE TIMES A DAY NEEDED FOR PAIN -USE DOSE CARD I N BOX TO MEASURE DOSE -MAXIMUM OF 32 GM PER DAY 17) DOXYCYCLINE HYCLATE 100MG TAB TAKE ONE TABLE T BY ACTIVE MOUTH TWICE A DAY FOR WOUND INFECTION 18) DRESS,MEPILEX BORDER FLEX 4X4IN #[id number] APPL Y 1 ACTIVE DRESSING DRESSING,MEPILEX BORDER 4X4IN #[id number] TOPICALLY DIRECTED 19) EMPAGLIFLOZIN 25MG TAB TAKE ONE-HALF TABLET BY MOUTH ACTIVE (S) EVERY MORNING FOR DIABETES 20) ERGOCALCIF 1,250MCG (D2-50,000UNIT) CAP TAKE ONE ACTIVE CAPSULE BY MOUTH EVERY MONTH 21) FLUTICASONE PROP 50MCG 120D NASAL INHL SPRAY 1 PUFF ACTIVE EACH NOSTRIL IN EACH NOSTRIL TWICE A DAY FOR NASAL USE 22) GAUZE PAD 4IN X 4IN 8-PLY NONSTERILE USE GAU ZE SPONGE ACTIVE TOPICALLY DIRECTED 23) GAUZE,PACKING PLAIN 1/2IN X 5YD USE PACKING GAUZE ACTIVE DIRECTED 24) GLIPIZIDE 10MG TAB TAKE ONE TABLET BY MOUTH TWICE A ACTIVE DAY TAKE 30 MINUTES BEFORE MEAL FOR DIABETE S 25) GLOVE LATEX X-LARGE PWDR-FREE NONSTERILE USE GLOVE(S) ACTIVE DIRECTED 26) HYDROCORTISONE 2.5% CREAM APPLY THIN LAVER T O ANKLE ACTIVE TOPICALLY THREE TIMES A DAY NEEDED FOR ITCHI NG 27) IBUPROFEN 800MG TAB TAKE ONE TABLET BY MOUTH THREE ACTIVE TIMES A DAY NEEDED FOR SEVERE ARTHRITIS PAIN *TAKE WITH FOOD 28) LATANOPROST 0.005% OPH SOLN INSTILL 1 DROP I N LEFT ACTIVE EYE AT BEDTIME FOR GLAUCOMA REFRIGERATE BOTTLE UNTIL OPENED. 29) LIDOCAINE 4% TOP CREAM APPLY MODERATE AMOUNT THREE ACTIVE TIMES A DAY NEEDED FOR PAIN CREAM 30) LIDOCAINE 5% PATCH APPLY 1 PATCH EVERY DAY F OR ACTIVE BACK PAIN -WEAR FOR ONLY 12 HOURS AND THEN DIANA VE AND LEAVE OFF FOR 12 HOURS 31) LOSARTAN 50MG TAB TAKE ONE-HALF TABLET BY MO UTH EVERY ACTIVE DAY FOR HIGH BLOOD PRESSURE 32) METFORMIN HCL 500MG/5ML ORAL SOLN TAKE TWO A CTIVE TEASPOONSFUL BY MOUTH TWICE A DAY 33) MICONAZOLE NITRATE 2% TOP PWDR USE TO AFFECT ED AREA ACTIVE TOPICALLY TWICE A DAY FOR FUNGAL INFECTION/GROI N RASH 34) MULTIVIT W/MINERALS, CAP/TAB TAKE 1 TABLET BY ACTIVE MOUTH EVERY DAY FOR FOLIC ACID AND IRON DEFICIE NCY (REPLACES FERROUS SULFATE) 35) OXYCODONE 5MG/ACETAMINOPHEN 325MG TAB TAKE 2 TABLETS ACTIVE BY MOUTH THREE TIMES A DAY NEEDED FOR SEVERE FOOT PAIN -LOWER TO 2 TABLETS TWICE A DAY TOLERATED -DO NOT EXCEED 4000MG OF ACETAMINOPHE N IN 24 HOURS FROM ALL SOURCES 36) PAD,ABDOMINAL 7.5 X 8 STERILE USE PAD TOPICA LLY ACTIVE DIRECTED 37) POTASSIUM CHLORIDE 20MEQ/PKT ORAL PWD TAKE 1 PACKET ACTIVE BY MOUTH EVERY DAY --TAKE WITH WATER-- 38) PREDNISOLONE ACETATE 1% OPH SUSP INSTILL 1 D ROP IN ACTIVE OPERATIVE EYE FOUR TIMES A DAY SHAKE WELL FOR POST-OP INFLAMMATION 39) PREGABALIN 100MG ORAL CAP TAKE ONE CAPSULE B Y MOUTH ACTIVE AT BEDTIME FOR 5 DAYS, THEN TAKE ONE CAPSULE TW ICE A DAY FOR 5 DAYS, THEN TAKE ONE CAPSULE THREE T IMES A DAY FOR NERVE PAIN -REPLACES GABAPENTIN 40) PROPRANOLOL HCL 80MG TAB TAKE ONE TABLET BY MOUTH ACTIVE TWICE A DAY FOR HAND TREMOR 41) ROPINIROLE HCL 2MG TAB TAKE ONE TABLET BY MO UTH TWICE ACTIVE (S) A DAY FOR RESTLESS LEG (NOTE DOSE REDUCTION PER PHARMACY RECOMMENDATION) 42) SEMAGLUTIDE 1MG/0.75ML INJ PEN 3ML INJECT 1M G UNDER ACTIVE THE SKIN EVERY WEEK 43) SILVASORB GEL,TOP APPLY TO AFFECTED AREAS TO PICALLY ACTIVE ONCE DAILY FOR FOOT ULCER 44) SODIUM CHLORIDE 5% OPH OINT APPLY THIN STRIP TO BOTH ACTIVE EYES AT BEDTIME 45) SODIUM CHLORIDE 5% OPH SOLN INSTILL 1 DROP I N BOTH ACTIVE EYES FOUR TIMES A DAY 46) SODIUM FLUORIDE 1.1% TOOTHPASTE BRUSH SMALL AMOUNT ACTIVE MOUTH EVERY MORNING AND AT BEDTIME ON TOOTHBRUS H, BRUSH FOR 2 MINUTES. 47) TADALAFIL 20MG TAB TAKE ONE TABLET BY MOUTH AT ACTIVE BEDTIME TAKE AT LEAST 30 MINUTES BEFORE ANTICIP ATED SEXUAL ACTIVITY. MAXIMUM 4 DOSES FOR 30-DAY SUP PLY 48) TRAZODONE HCL 50MG TAB TAKE ONE TABLET BY MO UTH AT ACTIVE BEDTIME NEEDED FOR SLEEP 49) TRIAMCINOLONE ACETONIDE 0.1% OINT APPLY MODE RATE ACTIVE AMOUNT TWICE A DAY NEEDED FOR ITCHING AVOI D FACE,GROIN & ARMPITS *FOR EXTERNAL USE ONLY 50) VANICREAM TOP CREAM APPLY THIN LAYER TOPICAL LY EVERY ACTIVE DAY FOR DRY SKIN APPLY TO FEET AND LEGS 51) VITAMIN E 180MG (400UNIT) CAP TAKE ONE CAPSU LE BY ACTIVE (S) MOUTH EVERY DAY Non-VA Medications Status 1) Non-VA OXYMETAZOLINE HCL 0.05% NASAL SPRAY 1 SPRAY ACTIVE EACH NOSTRIL NEEDED 52 Total Medications PROBLEM LIST (see [facility] for any updates done duri ng the visit) Active problems - Computerized Problem List is [...] -> inc LFT, n ot on anticoag /2 hemoptysis 11. Essential tremor - on propranolol 12. Hemoptysis - and infiltrates; ILD; bronchoscopy 08/2017; pr esumed MTX toxicity 13. Aortic valve stenosis 14. 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 Charcot's joint of foot 16. Peripheral vascular disease - angiogram 06/15/2020 atherectomy and balloon a ngioplasty - chronic venous stasis, h/o venous pump use 17. Heart failure Allergies: RIVAROXABAN (Jul 25, 2017) LAB/TEST DATA See [facility] problem list for any additional externa l results WBC 6.29 (12/15/20) PLT 297 (12/15/20) HGB 14.6 BLOOD (12/15/20 12:44) 14.5 BLOOD (12/14/20 04:25) 12.7 L BLOOD (06/22/20 10:22) IRON 36 L (12/15/20) TRANSFERRIN 237 (12/15/20) TIBC,CALCULATED 296 (12/15/20) IRON SATURATION 12 L (12/15/20) Collection DT Spec HGBA1C 12/15/2020 12:44 BLOOD 9.5 H 06/22/2020 10:22 BLOOD 9.5 H 09/27/2019 00:15 BLOOD 9.3 H Na: SODIUM 137 (12/15/20) K: POTASSIUM 4.3 (12/15/20) Cl: CHLORIDE 100 (12/15/20) CO2: CO2 26 (12/15/20) BUN: UREA NITROGEN 12 (12/15/20) Creatinine: CREATININE 0.6 L (12/15/20) Glucose: GLUCOSE 277 H (12/15/20) CREATININE 0.6 L PLASMA (12/15/20 12:44) 0.5 L PLASMA (12/14/20 04:25) 0.6 L PLASMA (06/22/20 10:25) SGOT 10 (12/14/20) SGPT 11 (12/14/20) BILIRUBIN, TOTAL 0.8 (12/14/20) No data available CHOLESTEROL____ TRIGLYCERIDE____ HDL____ LDL CALCULATION____ SLT - Lab Tests Selected Collection DT Specimen Test Name Result Units Re f Range 08/12/2018 14:21 PLASMA LDL CALCULATION 69 mg/dL Ref: <= 99 MEASURED LDL____ No data available Collection DT Specimen Test Name Result Units Re f Range 10/13/2018 17:00 PLASMA TSH 1.19 uIU/mL 0.35 - 4.94 08/12/2018 14:21 PLASMA TSH 1.11 uIU/mL 0.35 - 4.94 Patient was informed of available lab, imaging, and other study results noted and/or associated with today's visit. Completed medication reconciliation during the v isit and updated medication list in CPRS. Provided patient/caregiver regardi ng any changes and possible side effects, interactions, contraindications an d precautions. Patient/caregiver asked to contact clinic with a ny questions or concerns. Discussed plan of care with patient/caregiver an d instructed to contact clinic for any questions/clarifications. Discuss ed the importance of seeking care [facility] if any changes/worsening of symptoms, or if any new/concerning symptoms. Patient/caregiver voice understanding of above a nd no further questions. More than 50% of this 30 min appt was spent coun seling/coordinating care for the medical problems outlined above. /vinicio/ Giselle Martinez MD Staff Physician Signed: 01/18/2021 15:36
--- OUTSIDE RECORDS SUMMARY | 2021-12-23 16:34 | XMS_ITS | Encounter Summary ---
:1945 Author Organization [facility] Address [address] [place] [id number] Support Name Relationship Address Phone FRANCES GANDARA Unavailable [phone] [place] [address] FRANCES GANDARA Unavailable [phone] [place] [address] FRANCES GANDARA Unavailable [phone] [place] [address] FRANCES GANDARA Unavailable [phone] [place] [address] Insurance Providers: All historical and current Section [...] MEDICARE MEDICARE PART Apr 19, PART A [id number] (WNR) (M) A 2007 [id number] [phone] JESSICA MEDICARE MEDICARE PART Apr 19, PART A [id number] (WNR) (M) A 2007 [id number] [phone] JESSICA Selected Encounter This section includes the information on record at OR for the Encounter. Date/Time Encounter Type Encounter [...] this document. The data comes from all OR facilities. Date Advance Directives Provider Source May 29, 2017 CLINICAL WARNING CORNELIO FREITAS [facility] May 16, 2017 ADVANCE DIRECTIVE SERENITY BUENROSTRO [facility] May 16, 2017 ADVANCE DIRECTIVE DISCUSSION SERENITY [place]O [place] [facility] May 04, 2017 CLINICAL WARNING MAGO IDAMOND [facility] May 04, 2017 CLINICAL WARNING GAEL ROSARIO [facility] Apr 26, 2017 CLINICAL WARNING JENNIFER DE LEON [facility] Jan 01, 2017 CLINICAL WARNING AYDE WELLS [facility] Jun 09, 2004 ADVANCE DIRECTIVE DARYL VILLARREAL [facility] Jun 07, 2004 ADVANCE DIRECTIVE SHERYL HOLLOWAY [facility]
--- OUTSIDE RECORDS SUMMARY | 2021-12-23 16:35 | XMS_ITS | Encounter Summary ---
:1945 Author Organization Department [facility] rs Address [address] [place] [address] Support Name Relationship Address Phone FRANCES GANDARA Unavailable [address] [place] [address] FRANCES GANDARA Unavailable [address] [place] [address] FRANCES GANDARA Unavailable [address] [place] [address] FRANCES GANDARA Unavailable [address] [place] [address] Insurance Providers: All historical and current Section [...] MEDICARE MEDICARE PART Apr 19, PART A [id number] Whit [place] (WNR) (M) A 2007 [id number] [phone] [place] MEDICARE MEDICARE PART Apr 19, PART A [id number] Whit [place] (WNR) (M) A 2007 50A [phone] [place] Selected Encounter This section includes the information on record at [place] for the Encounter. Date/Time Encounter Type Encounter Reason Provider Source Description Feb 02, 2021 OFFICE O/P EST WOUND TREAT & ICD-10-CM STARR RICHEY 01:00 PM HI 40-54 MIN OSTOMY CARE E11.621 Type 2 diabetes mellitus with foot ulcer with Provider Comments: Type 2 Diabetes Mellitus with Foot Ulcer IHE Encounter Template Text not used by [place] Assessments - Encounter Diagnoses This section includes the primary and secondary diagnoses documented for the Encounter. Date/Time Primary/Secondary Diagnosis Name Provider Source Diagnosis Feb 02, 2021 PRIMARY Type 2 diabetes STARR RICHEY [place] 01:48 PM mellitus with foot HCS ulcer Feb 02, 2021 SECONDARY Charcot's joint, STARR RICHEY [place] 01:48 PM right ankle and HCS foot Feb 02, 2021 SECONDARY Peripheral ST[place]HEY [place] 01:48 PM vascular disease, HCS unspecified Feb 02, 2021 SECONDARY Type 2 diabetes STARR [place]HEY [place] 01:48 PM mellitus with HCS unspecified complications Plan of Treatment: Future Appointments (+ 6 [...] Date/Time Appointment Type Appointment Facili ty Name Feb 09, 2021 12:45 PM AMBULATORY - NONE [facility] Feb 14, 2021 02:00 PM AMBULATORY - SURGERY [facility] S Feb 16, 2021 08:30 AM AMBULATORY - REHAB MEDICINE [facility] Feb 17, 2021 02:30 PM AMBULATORY - NONE [facility] Feb 23, 2021 09:00 AM AMBULATORY - NONE [facility] Feb 23, 2021 01:30 PM AMBULATORY - NONE [facility] Feb 23, 2021 02:30 PM AMBULATORY - MEDICINE [facility] H CS Feb 28, 2021 08:00 AM AMBULATORY - NONE [facility] Mar 01, 2021 07:45 AM AMBULATORY - SURGERY [facility] S Mar 01, 2021 08:43 AM AMBULATORY - MEDICINE [facility] CS Mar 01, 2021 09:44 AM AMBULATORY - NONE [facility] Mar 02, 2021 02:00 PM AMBULATORY - REHAB MEDICINE [facility] Mar 03, 2021 01:00 PM AMBULATORY - SURGERY [facility] S Mar 08, 2021 01:00 PM AMBULATORY - NONE [facility] Mar 09, 2021 10:45 AM AMBULATORY - SURGERY [facility] S Mar 09, 2021 11:30 AM AMBULATORY - NONE [facility] Mar 10, 2021 10:45 AM AMBULATORY - NONE [facility] Mar 17, 2021 11:30 AM AMBULATORY - NONE [facility] Mar 22, 2021 02:30 PM AMBULATORY - NONE [facility] Mar 23, 2021 07:00 AM AMBULATORY - [facility] Active, Pending, and Scheduled Orders This section [...] 06:15 Laboratory - COVID-19 DIAGNOSTIC PANEL [facility] AM Chemistry Order (CEPHEID) NASOPHARYNGEAL SWAB [...] Result - Unit Interpretation Reference Range Comment Mar 01, 2021 09:31 [facility] EXTRA MINT TUBE Specimen Type: PLASMA AM No comment enter ed. Ordering Provid er: AMARJIT OWEN Report Released Date/Time: Mar 01, 2021 09:31 AM Reporting Lab: [facility] [address] [facility] [id number] Performing Lab: [facility] [address] [facility] [id number] EXTRA MINT TUBE RECEIVED Mar 01, 2021 09:31 [facility] C-REACTIVE PROTEIN Specim en Type: SERUM AM No comment enter ed. Ordering Provid er: AMARJIT OWEN Report Released Date/Time: Mar 01, 2021 09:12 AM Reporting Lab: [facility] [address] [facility] [id number] Performing Lab: [facility] [address] [facility] [id number] C-REACTIVE PROTEIN 9.22 H <5.00 Mar 01, 2021 09:31 AM [facility] CBC & DIFF Specim en Type: BLOOD Comment: Automa sarthak Differential Performed Ordering Provid er: AMARJIT OWEN Report Released Date/Time: Mar 01, 2021 09:12 AM Reporting Lab: [facility] [phone] Performing Lab: [facility] [id number] WBC 5.58 4.0-11.0 RBC 4.90 4.6-6.2 HGB 13.4 L 13.5-17.9 HCT 43.1 41-54 MCV 88.0 80-100 MCH 27.3 27-33 MCHC 31.1 L 32.0-37.5 PLT 286 150-400 MPV 9.1 7.4-10.4 NEUT 45.3 LYMPHS 40.5 MONO 9.1 EOSINO 3.8 BASO 0.9 RDW 14.2 11.5-14.5 ABS LYMPH 2.26 1.0-4.0 ABS MONO 0.51 0.1-1.0 ABS NEUT 2.53 2.0-7.7 ABS EOS 0.21 0-0.5 ABS BASO 0.05 0-0.2 IG(META,MYELO,PRO) 0.4 ABS IMMATURE GRAN 0.02 0-0.1 Mar 01, 2021 09:31 AM [facility] HEMOGLOBIN A1C Specim en Type: BLOOD No comment enter ed. Ordering Provid er: CARIDAD DENNIS Report Released Date/Time: Mar 01, 2021 04:01 PM Reporting Lab: [facility] [id number] Performing Lab: [facility] [id number] HEMOGLOBIN A1C 8.0 H 4.0-6.0 Social History: Smoking Status (Most current) and [...] 2020 02:00 PM VA-TOBACCO FORMER USER [facility] Tobacco Use History This section includes a history of the smoking, or tobacco- related health factors, that were collected on or before the date of the Encounter. The data comes from the [place] facility where the Encounter took place. Date/Time Smoking Status/Tobacco Use Comment Facil ity July 09, 2020 02:00 PM VA-TOBACCO QUIT 15 YRS OR MORE [facility] Apr 17, 2019 02:39 PM INPT NO TOBACCO USE IN LAST 30 DAYS [facility] Feb 04, 2019 10:37 AM VA-TOBACCO NEVER USED [facility] Oct 15, 2018 02:43 PM INPT NO TOBACCO USE IN LAST 30 DAYS [facility] Oct 13, 2018 11:30 PM INPT NO TOBACCO USE IN LAST 30 DAYS [facility] Sep 02, 2018 05:50 PM INPT NO TOBACCO USE IN LAST 30 DAYS [facility] Aug 12, 2018 07:28 PM INPT NO TOBACCO USE IN LAST 30 DAYS [facility] Jan 30, 2018 03:28 PM VA-TOBACCO FORMER USER [place] [facility] Jan 30, 2018 03:28 PM VA-TOBACCO QUIT 15 YRS OR MORE [facility] May 29, 2017 04:53 PM INPT NO TOBACCO USE IN LAST 30 DAYS [facility] Apr 25, 2017 10:44 PM INPT NO TOBACCO USE IN LAST 30 DAYS [facility] Jan 01, 2017 06:40 PM INPT NO TOBACCO USE IN LAST 30 DAYS [facility] Dec 21, 2016 02:43 PM FORMER TOBACCO USER 7Y OR GREATER [facility] Sep 24, 2013 08:52 AM FORMER TOBACCO USER 7Y OR GREATER [facility] Advance Directives: All historical and current Section Date Range: From patient's date of to the date document was created. This section includes ALL of a patient's completed or amended [place] Advance and Rescinded Directives. The entries below indicate that a directive exists for the patient, but an actual copy is not included with this document. The data comes from all [place] facilities. Date Advance Directives Provider Source May 29, 2017 CLINICAL WARNING CORNELIO FREITAS [facility] May 16, 2017 ADVANCE DIRECTIVE SERENITY BUENROSTRO [facility] May 16, 2017 ADVANCE DIRECTIVE DISCUSSION SERENITY [place]ROSTRO [place] [facility] May 04, 2017 CLINICAL WARNING MAGO DIAMOND [facility] May 04, 2017 CLINICAL WARNING GAEL ROSARIO [facility] Apr 26, 2017 CLINICAL WARNING JENNIFER DE LEON [facility] Jan 01, 2017 CLINICAL WARNING AYDE WELLS [facility] Jun 09, 2004 ADVANCE DIRECTIVE DARYL VILLARREAL [facility] Jun 07, 2004 ADVANCE DIRECTIVE SHERYL HOLLOWAY [facility] Radiology Reports: +/- 30 days of [...] treatment facilities. Date/Time Radiology Report Provider Source Mar 01, 2021 09:44 AM US LOWER EXTREMITY VEIN (UNILATERAL) ( P): XIAO HUGGINS [facility] [place] [id number] -[birth year] M Exm Date: MAR 01, 2021@09:44 Req Phys: AMARJIT OWEN Loc: [facility] (Re Img Loc: Ultrasound Imaging Service: Unknown (Case [id number] COMPLETE) US EXTREMITY VEINS UNILAT (U S Detailed) CPT:31872 Proc Modifiers : LEFT Reason for Study: please look for DVT Clinical History: [place] IS NOT under investigation for COVID-19 or is COVID-19 negative Swelling, erythema, tenderness incl along deep veins. NOt responsive to antibiotic course. Wells score fo r DVT = 5 Responsible provider name and phone number to n otify for critical findings if other than user placing the order a nd pager listed below: User placing orders pager: [phone] LAST CREATININE 0.6 L (12/15/20) Report Status: Verified Date Reported: MAR 01, 2021 Date Verified: MAR 01, 2021 Casting Carrier E-Sig:/ES/XIAO HUGGINS MD Report: Duplex Ultrasound of the Deep Veins of the LEFT Lower Extremity Technique: Renteria-scale evaluation with compressi on and Doppler assessment of venous system for spontaneous and phasic flow, as well as the presence of distal augmentation. Co laney flow images obtained as needed. Comparison study: Bilateral lower extremity dante ous ultrasound 11/14/2019 History: Swelling, erythema, tenderness incl al cruz deep veins. NOt responsive to antibiotic course. Wells scor e for DVT = 5 Findings: Right leg: Doppler examination demonstrates com pressibility and phasic waveforms in the common femoral vein. . Left leg: The common femoral vein, deep femoral vein, femoral vein and popliteal vein are fully compressible with flow and augmentation. The posterior tibial veins are co mpressible without evidence for thrombus. The peroneal veins are n ot visualized. Proximal great saphenous vein: fully compressib le. Proximal gastrocnemius veins (deep venous system): fully compressible. Impression: Left leg: No evidence of deep venous thrombosis . . I, Xiao Huggins, have reviewed the images and r eport. Primary Interpreting Staff: XIAO HUGGINS MD, RADIOLOGIST (Casting Carrier) Primary Interpreting Resident: JANNET JOSEPH, HEADLINE WRITER /[facility] Encounter Notes: All associated encounter notes This section contains the clinical notes associated to the Encounter. Date/Time Encounter Note(s) Provider Source Feb 02, 2021 01:37 PM WOUND CARE NOTE: ROSSISTARR Garay PIERRE IS [facility] LOCAL TITLE: WOUND CLINIC NOTE STANDARD TITLE: WOUND CARE NOTE DATE OF NOTE: FEB 02, 2021@13:37 ENTRY DATE: FEB 02, 2021@13:37:14 AUTHOR: STARR RICHEY EXP COSIGNER: URGENCY: STATUS: COMPLETED Chief complaint: Wound PERTINENT DIAGNOSIS COMPLICATING WOUND HEALING: DM, Charcot joint ASSESSMENT/PLAN ETIOLOGY: 1. Right DFU, Charcot joint -Impression: Decrease in size and there is less callous. He states that he is having less appointments and is walki ng less. -Signs and symptoms of infection: No -Arterial flow status: a distal SFA and poplite al angioplasty, tibioperoneal trunk angioplasty on 06/15. -Offloading: He is using his [place] boot -Treatment Plan: Will hold on the graft because he is planning on having surgery on his charcot joint Debridement: Excisional debr idement of the right foot ulcer was recommended and after consent was obtain, and topical 2% lidocai ne was applied, under clean condition, using a #15 scalp el, the devitalized subcutaneous tissue in the ulcer base and the ulcer margins were sharply excised for a total sq. cm of 1.6. Following debridement, there was a decrease in t he nonviable tissue. The patient tolerated the procedure without any diff iculty. 2. PAD, a hemodynamically significant arterial s tenosis in the iliac arteries underwent a distal SFA and popl iteal angioplasty, tibioperoneal trunk angioplasty on 06/15. Post stenting ultrasound on 07/07 Patent lower extremity arteries without focal hemodynamically significa nt stenosis. The angioplasty sites in the SFA, popliteal and tibioperoneal tr unk arteries are patent. -may need to repeat imaging. 3. DM, HEMOGLOBIN A1C 9.5 H (12/15/20)- [facility] ed blood sugar control for wound healing. -PCP increased medication -PAVE 3 Risk -He is using the Podimetric mat with his other foot. 4. Charcot joint, increased difficulty in offloa ding -He was scheduled for foot surgery at the [place], b ut it was cancelled secondary to surgical suite restrictions. He plans to be evaluated next week at [facility]. 5. Venous hypertension, left leg minimal edema 6. Patient will follow up with me in 4 weeks for revaluation. Visit time was 50 minutes with more than 50% in care and coordination of care. HISTORY OF PRESENT ILLNESS: Patient reports that his ulcer started about 3 y ears ago. At his appointment with Dr. Oakes on 2019, she consulted the [facility] for ongoing wound management. He was hos pitalized on 11/14/19 for pneumonia. At that time, his wound was doing well. However, he went to [place] because his 49 year old son suddenly . Unfortunately , during this trip he had to do a lot of walking and his ulcer got worse. It has failed to resolve since. Today, He reports that his w ound is better, but has run out of supplies. He has several mepilex border left so he has been recen tly using it without packing. He reports that he was scheduled to have surgery on his charcot joint, but it was cancelled at the [place] so he will be evaluated at [facility] next week and is hoping to have his foot reconstructed. H e denies any change in drainage level. PAST MEDICAL HISTORY: Active problems - Computerized Problem List is t he source for the followin. Osteoarthritis - C-spine - L-spine; chronic low back pain on opioids 2. Obstructive sleep apnea - on CPAP 3. Gastroesophageal reflux disease 4. Restless legs syndrome 5. Nephrolithiasis 6. Venous stasis - venous pump 7. Depression 8. Coronary artery disease - STEMI; CABG x 4 (emergent) 05/06; EF 55% 12/06 , hypotensive on ACEI, HFpEF 9. Diabetes mellitus - neuropathy - foot ulcer with cuboid osteomyelitis 09/06 - Charcot arthropathy 10. 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 - negative TA biopsy 08/07 11. Pulmonary thromboembolism - on CTA 07/06; possible; xeralto -> inc LFT, no t on anticoag 2/2 hemoptysis 12. Essential tremor - on propranolol 13. Anemia - iron deficiency 08/06 14. Hemoptysis - and infiltrates; ILD - bronchoscopy 09/05 - presumed MTX toxicity 15. Dysphagia - EGD 11/06 16. Aortic valve stenosis - mild; echo 12/06 17. 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 Primary erectile dysfunction 19. Charcot's joint of foot SURGICAL HISTORY: Surgeries Past Year: SEP 20 Proc: CE IOL OU SOCIAL HISTORY: Living Situation: Lives alone Home Care: none, is perusing a different compan y Tobacco use: No Alcohol use: rarely ALLERGY: FACILITY ALLERGY/ADR -------- [facility] NO KNOWN ALLERGIES MEDICATIONS: Reviewed Physical Exam: General: In no apparent distress Head: Normocephalic atraumatic Psychiatric: Cooperative Respiratory: unlabored breathing Cardiovascular: EDEMA: 0 PULSES: not palpable Neurological: Wound Pain: no Integumentary: Patient verbally consented for photo. See phot o in [place] Integumentary: WOUND ASSESSMENT LOCATION: Right TYPE OF WOUND: Neuropathic EXTENT OF TISSUE LOSS: Full thickness WOUND BASE: granular DIMENSIONS Wound Size: 1.6cm L x 1.0 cm W x.5 cm deep with .3 cm Undermining from 3:00-5:00. Tunnelin EXUDATE: small serosanguinous ODOR: no WOUND EDGES: attached PERIWOUND SKIN: slight hyperkeratotic, macerati on SIGNS & SYMPTOMS OF LOCAL INFECTION: absent LABS: Collection DT Specimen Test Name Result Units Re f Range 05/03/2020 12:42 SERUM PRE-ALBUMIN 25.8 mg/dL 17 .7 - 36.3 ALBUMIN 3.6 (12/14/20) HEMOGLOBIN A1C 9.5 H (12/15/20) HGB 14.6 (12/15/20) Metabolic Panel SODIUM 137 (12/15/20) POTASSIUM 4.3 (12/15/20) UREA NITROGEN 12 (12/15/20) CREATININE 0.6 L (12/15/20) GLUCOSE 277 H (12/15/20) ESTIMATED GFR(eGFR) >60 (12/15/20) COMPUTED CREATININE CLEARANCE____ AST/SGOT 10 (12/14/20) ALT/SGPT 11 (12/14/20) ALBUMIN 3.6 (12/14/20) Complete Blood Count White count: WBC 6.29 (12/15/20) Hemoglobin: HGB 14.6 (12/15/20) Hematocrit: HCT 45.6 (12/15/20) Platelets: PLT 297 (12/15/20) IRON 36 L (12/15/20) TRANSFERRIN 237 (12/15/20) Inflammatory Markers C-REACTIVE PROTEIN 17.77 H (05/03/20) WESTERGREN 32 H (05/03/20) Collection DT Specimen Test Name Result Units Re f Range 11/22/2018 05:30 SERUM VIT D 25-OH,TOTAL 25 ng/m L 20 - 50 TSH ____ INR 1.1 (06/15/20) IMAGING: SEGMENTALS/CHARLES US-LOWER EXTREMITY ARTERIES LIMITED Proc Ord: US LOWER EXTREMITY ARTERY (UNILATERAL) (P) Exam Date: JULY 07, 2020@08:53 Report: Duplex Ultrasound of the Bilateral Lower Extrem ity Arteries Technique: Arterial duplex examination performe d using B-mode, color flow and spectral Doppler assessment. Clinical information: R foot wound s/p angio wi th intervention 06/15, status post distal SFA and popliteal celeste oplasty, tibioperoneal trunk angioplasty Comparison: Angiogram dated 06/15/2020 Findings: Peak systolic velocities were measured as follo ws: Right lower extremity: ELECTRIC CONTAINER TESTER prox: 98 cm/sec ELECTRIC CONTAINER TESTER mid: 112 cm/sec ELECTRIC CONTAINER TESTER dis rodriguez: 91 cm/sec PFA: 79 cm/sec SFA prox: 87 cm/sec SFA mid: 87 cm/sec SFA distal: 92 cm/sec Pop prox: 109 cm/sec Pop mid: 97 cm/s ec Pop distal: 133 cm/sec FRED prox calf: 109 cm/sec Common trunk: 172 cm/ sec BIOLOGICAL PLANT OPERATOR ankle: 96 cm/sec FRED ankle: 90 cm/sec Waveforms are multiphasic throughout. Impression: 1. Right leg arteries: Patent lower extremity a rteries without focal hemodynamically significant stenosis. The angioplasty sites in the SFA, popliteal and tibioperoneal trunk a rteries are patent. US-LOWER EXTREMITY ARTERIES LIMITED Proc Ord: US LOWER EXTREMITY ARTERY (UNILATERAL) (P) Exam Date: JULY 07, 2020@08:53 Report: Duplex Ultrasound of the Bilateral Lower Extrem ity Arteries Technique: Arterial duplex examination performe d using B-mode, color flow and spectral Doppler assessment. Clinical information: R foot wound s/p angio wi th intervention 06/15, status post distal SFA and popliteal celeste oplasty, tibioperoneal trunk angioplasty Comparison: Angiogram dated 06/15/2020 Findings: Peak systolic velocities were measured as follo ws: Right lower extremity: ELECTRIC CONTAINER TESTER prox: 98 cm/sec ELECTRIC CONTAINER TESTER mid: 112 cm/sec ELECTRIC CONTAINER TESTER dis rodriguez: 91 cm/sec PFA: 79 cm/sec SFA prox: 87 cm/sec SFA mid: 87 cm/sec SFA distal: 92 cm/sec Pop prox: 109 cm/sec Pop mid: 97 cm/s ec Pop distal: 133 cm/sec FRED prox calf: 109 cm/sec Common trunk: 172 cm/ sec BIOLOGICAL PLANT OPERATOR ankle: 96 cm/sec FRED ankle: 90 cm/sec Waveforms are multiphasic throughout . Impression: 1. Right leg arteries: Patent lower extremity a rteries without focal hemodynamically significant stenosis. The angioplasty sites in the SFA, popliteal and tibioperoneal trunk a rteries are patent. Patient: Corby Mojica Date: 02/02/2021 Wound Instructions: 1. Cleanse the wound with wound cleanser or norm al saline 2. Pack wound with Calcium Alginate 3. Cover with Mepilex border 4. Change every two days Other Instructions: Do not remove your bandage when you bathe. *You can use the cast boot that we gave you. *You can also use press and seal, or a bag taped on to keep the bandage dry. If you need more supplies, call the pharmacy for a refill or call our office. Your supplies were ordered. Check out at the front end developer designer and make your follow up appointment with me in 4 weeks. Starr Leal APRN, SAXOPHONE TEACHER, CWCN /es/ STARR RICHEY NP NURSE PRACTITIONER Signed: 02/02/2021 13:49
--- OUTSIDE RECORDS SUMMARY | 2021-12-23 16:37 | XMS_ITS | Encounter Summary ---
:1945 Author Organization [facility] Address [address] [place] [id number] Support Name Relationship Address Phone FRANCES GANDARA Unavailable [address] [place] [address] FRANCES GANDARA Unavailable [address] [place] [address] FRANCES GANDARA Unavailable [address] [place] [address] FRANCES GANDARA Unavailable [address] [place] [address] Insurance Providers: All historical and current Section [...] MEDICARE MEDICARE PART Apr 19, PART A [id number] Whit [place] (WNR) (M) A 2007 [id number] [phone] JESSICA MEDICARE MEDICARE PART Apr 19, PART A [id number] Whit [place] (WNR) (M) A 2007 [id number] [phone] JESSICA Selected Encounter This section includes the information on record at [place] for the Encounter. Date/Time Encounter Type Encounter Description Reason Provider Source Jan 28, 2021 09:31 Outpatient Encounter PRIMARY CARE/MEDICINE AM [facility] Encounter Template Text not used by [place] Plan of Treatment: Future Appointments (+ 6 [...] 20 appointments. The data comes from all [facility]. Appointment Date/Time Appointment Type Appointment Facili ty Name Feb 02, 2021 01:00 PM AMBULATORY - SURGERY [facility] Feb 09, 2021 12:45 PM AMBULATORY - NONE [facility] Feb 14, 2021 02:00 PM AMBULATORY - SURGERY [facility] Feb 16, 2021 08:30 AM AMBULATORY - REHAB MEDICINE [facility] Feb 17, 2021 02:30 PM AMBULATORY - NONE [facility] Feb 23, 2021 09:00 AM AMBULATORY - NONE [facility] Feb 23, 2021 01:30 PM AMBULATORY - NONE [facility] Feb 23, 2021 02:30 PM AMBULATORY - MEDICINE [facility] Feb 28, 2021 08:00 AM AMBULATORY - NONE [facility] Mar 01, 2021 07:45 AM AMBULATORY - SURGERY [facility] Mar 01, 2021 08:43 AM AMBULATORY - MEDICINE [facility] Mar 01, 2021 09:44 AM AMBULATORY - NONE [facility] Mar 02, 2021 02:00 PM AMBULATORY - REHAB MEDICINE [facility] Mar 03, 2021 01:00 PM AMBULATORY - SURGERY [facility] Mar 08, 2021 01:00 PM AMBULATORY - NONE [facility] Mar 09, 2021 10:45 AM AMBULATORY - SURGERY [facility] Mar 09, 2021 11:30 AM AMBULATORY - NONE [facility] Mar 10, 2021 10:45 AM AMBULATORY - NONE [facility] Mar 17, 2021 11:30 AM AMBULATORY - NONE [facility] Mar 22, 2021 02:30 PM AMBULATORY - NONE [facility] Active, Pending, and Scheduled Orders This section includes a listing of several types of active, pending, and scheduled orders, including clinic medications orders, diagnostic test orders, procedure orders and consult orders; where the start date of the order is 45 days before the date of the Encounter or 45 days after the date of the Encounter. The data comes from all [facility]. Test Date/Time Test Type Test Details Facility Name Jan 25, 2021 06:15 Laboratory - COVID-19 DIAGNOSTIC PANEL [facility] Chemistry Order (CEPHEID) NASOPHARYNGEAL SWAB WC ONCE Social History: Smoking Status (Most current) and Tobacco Use (All prior to encounter date) This section includes the most current, and the historical, smoking and tobacco-related health factors from the [place] facility where the Encounter took place.Current Smoking Status This section includes the most current smoking, or tobacco-related health factor, from the [place] facility where the Encounter took place. Date/Time Current Smoking Status Comment Facility July 09, 2020 02:00 PM VA-TOBACCO FORMER USER [facility] Tobacco Use History This section includes a history of the smoking, or tobacco- related health factors, that were collected on or before the date of the Encounter. The data comes from the [place] facility where the Encounter took place. Date/Time Smoking Status/Tobacco Use Comment [facility] it July 09, 2020 02:00 PM VA-TOBACCO QUIT [address] [facility] Apr 17, 2019 02:39 PM INPT NO TOBACCO USE IN LAST [address] [facility] Feb 04, 2019 10:37 AM VA-TOBACCO NEVER USED [facility] Oct 15, 2018 02:43 PM INPT NO TOBACCO USE IN LAST [address] [facility] Oct 13, 2018 11:30 PM INPT NO TOBACCO USE IN LAST [address] [facility] Sep 02, 2018 05:50 PM INPT NO TOBACCO USE IN LAST [address] [facility] Aug 12, 2018 07:28 PM INPT NO TOBACCO USE IN LAST [address] [facility] Jan 30, 2018 03:28 PM VA-TOBACCO FORMER USER [facility] Jan 30, 2018 03:28 PM VA-TOBACCO QUIT [address] [facility] May 29, 2017 04:53 PM INPT NO TOBACCO USE IN LAST [address] [facility] Apr 25, 2017 10:44 PM INPT NO TOBACCO USE IN LAST [address] [facility] Jan 01, 2017 06:40 PM INPT NO TOBACCO USE IN LAST [address] [facility] Dec 21, 2016 02:43 PM FORMER TOBACCO USER 7Y OR GRE[address] [facility] Sep 24, 2013 08:52 AM FORMER TOBACCO USER 7Y OR GRE[address] [facility] Advance Directives: All historical and current Section Date Range: From patient's date of to the date document was created. This section includes ALL of a patient's completed or amended [place] Advance and Rescinded Directives. The entries below indicate that a directive exists for the patient, but an actual copy is not included with this document. The data comes from all [facility]. Date Advance Directives Provider Source May 29, 2017 CLINICAL WARNING FREITASCORNELIO PIERREI S [facility] May 16, 2017 ADVANCE DIRECTIVE CHITRASERENITY Trey [facility] May 16, 2017 ADVANCE DIRECTIVE DISCUSSION SERENITY [place]STRO [place] [facility] May 04, 2017 CLINICAL WARNING MAGO DIAMNOD [facility] May 04, [address] [facility] Apr 26, 2017 CLINICAL WARNING MOISESJENNIFER P [facility] Jan 01, 2017 CLINICAL WARNING AYDE WELLS [facility] Jun 09, 2004 ADV[address]L [address]AL [facility] Jun 07, 2004 ADVANCE DIRECTIVE SHERYL HOLLOWAY [facility] Encounter Notes: All associated encounter notes This section contains the clinical notes associated to the Encounter. Date/Time Encounter Note(s) Provider Source Jan 28, 2021 09:31 AM HOME HEALTH REFERRAL NOTE: SLIM PRATT [facility] LOCAL TITLE: [facility] HOME HEALTH CARE STANDARD TITLE: HOME HEALTH REFERRAL NOTE DATE OF NOTE: JAN 28, 2021@09:31 ENTRY DATE: JAN 28, 2021@09:31:12 AUTHOR: SLIM PRATT EXP COSIGNER: URGENCY: STATUS: COMPLETED HOME HEALTH CARE CERTIFICATION AND PLAN OF CARE SIGNED BY: Dr. Martinez for [facility] 554 Certification period From: 01/18/2021 To: 2021 /vinicio/ SLIM PRATT ADVANCED MSA Signed: 01/28/2021 09:31
--- OUTSIDE RECORDS SUMMARY | 2021-12-23 16:38 | XMS_ITS | Encounter Summary ---
:1945 Author Organization [facility] Address [address] [place] [id number] Support Name Relationship Address Phone FRANCES GANDARA Unavailable [address] [place] [address] FRANCES GANDARA Unavailable [address] [place] [address] FRANCES GANDARA Unavailable [address] [place] [address] FRANCES GANDARA Unavailable [address] [place] [address] Insurance Providers: All historical and current Section Date Range: From patient's date of to the date document was created.This section includes the names of all active insurance providers for the patient. Insurance Type of Plan Start of End of Group Member Insurance Policy P atjose's Provider Coverage Name Policy Policy Number ID Provider's Hernandez's Relationship Coverage Coverage Telephone Name to Policy Number Hernandez MEDICARE MEDICARE PART Apr 19, PART A [id number] Whit MOJICA (WNR) (M) A 2007 [id number] [phone] JESSICA MEDICARE MEDICARE PART Apr 19, PART A [id number] Whit MOJICA (WNR) (M) A 2007 [id number] [phone] JESSICA Selected Encounter This section includes the information on record at NH for the Encounter. Date/Time Encounter Type Encounter Reason Provider Source Description Feb 04, 2021 [facility] BY [facility] ICD-10-CM E11.8 RADHA DIXON 09:30 AM ADDL 15 MIN Type 2 diabetes AN L mellitus with unspecified complications with Provider Comments: Diabetes mellitus ([facility] [id number]) IHE Encounter Template Text not used by NH Assessments - Encounter Diagnoses This section includes the primary and secondary diagnoses documented for the Encounter. Date/Time Primary/Secondary Diagnosis Name Provider Source Diagnosis Feb 04, 2021 PRIMARY Type 2 diabetes RADHA DIXON [facility] 03:05 PM mellitus with AN L [facility] unspecified complications Plan of Treatment: Future Appointments (+ 6 months) and Future Tests (+/- 45 days) The Plan of Treatment section includes future care activities for the patient from all NH treatmentfacilities. This section includes future appointments and future orders which are active, pending orscheduled.Future Appointments This section includes appointments that were scheduled to occur 6 months from the date of the Encounter, up to a maximum of 20 appointments. The data comes from all NH treatment facilities. Appointment Date/Time Appointment Type Appointment Facili ty Name Feb 09, 2021 12:45 PM AMBULATORY - NONE [facility] Feb 14, 2021 02:00 PM AMBULATORY - SURGERY [facility] Feb 16, 2021 08:30 AM [...] 2021 07:45 AM AMBULATORY - SURGERY [facility] Mar 01, 2021 08:43 AM AMBULATORY - MEDICINE [facility] Mar 01, 2021 09:44 AM AMBULATORY - NONE [facility] Mar 02, 2021 02:00 PM AMBULATORY - REHAB [facility]IC[facility] Mar 03, 2021 01:00 PM AMBULATORY - SURGERY [facility] Mar 08, 2021 01:00 PM AMBULATORY - NONE [facility] Mar 09, 2021 10:45 AM AMBULATORY - SURGERY [facility] Mar 09, 2021 11:30 AM AMBULATORY - NONE [facility] Mar 10, 2021 10:45 AM AMBULATORY - NONE [facility] Mar 17, 2021 11:30 AM AMBULATORY - NONE [facility] Mar 22, 2021 02:30 PM AMBULATORY - NONE [facility] Mar 23, 2021 07:00 AM AMBULATORY - NONE [facility] Active, Pending, and Scheduled Orders This section includes a listing of several types of active, pending, and scheduled orders, including clinic medications orders, diagnostic test orders, procedure orders and consult orders; where the start date of the order is 45 days before the date of the Encounter or 45 days after the date of the Encounter. The data comes from all NH treatment facilities. Test Date/Time Test Type Test Details Facility Name Jan 25, 2021 06:15 Laboratory - COVID-19 DIAGNOSTIC PANEL MIN [facility] AM Chemistry Order (CEPHEID) NASOPHARYNGEAL SWAB WC ONCE Lab Results: +/- 30 days of the encounter This section includes the Chemistry and Hematology Lab Results on record with NH for the patient. Radiology Reports and Pathology Reports are provided separately, in subsequent sections.Lab Results This section contains the Chemistry/Hematology Results that were resulted 30 days before or 30 daysafter the date of the Encounter. Date/Time Source Result Type Result - Unit Interpretation Reference Range Comment Mar 01, 2021 09:31 [facility] EXTRA MINT TUBE Specimen Type: PLASMA AM No comment enter ed. Ordering Provid er: AMARJIT OWEN Report Released Date/Time: Mar 01, 2021 09:31 AM Reporting Lab: [facility] [address] [facility] [id number] Performing Lab: [facility] [id number] EXTRA MINT TUBE RECEIVED Mar 01, 2021 09:31 [facility] C-REACTIVE PROTEIN Specim en Type: SERUM AM No comment enter ed. Ordering Provid er: AMARJIT OWEN Report Released Date/Time: Mar 01, 2021 09:12 AM Reporting Lab: [facility] [address] [facility] [id number] Performing Lab: [facility] [id number] C-REACTIVE PROTEIN 9.22 H <5.00 Mar 01, 2021 09:31 AM [facility] CBC & DIFF Specim en Type: BLOOD Comment: Automa sarthak Differential Performed Ordering Provid er: AMARJIT OWEN Report Released Date/Time: Mar 01, 2021 09:12 AM Reporting Lab: [facility] [address] [facility] [id number] Performing Lab: [facility] [address] [facility] [id number] WBC 5.58 4.0-11.0 RBC 4.90 4.6-6.2 HGB [...] 0.02 0-0.1 Mar 01, 2021 09:31 AM [facility] HEMOGLOBIN A1C Specim en Type: BLOOD No comment enter ed. Ordering Provid er: CARIDAD DENNIS Report Released Date/Time: Mar 01, 2021 04:01 PM Reporting Lab: [facility] [id number] Performing Lab: [facility] [id number] HEMOGLOBIN A1C 8.0 H 4.0-6.0 Social History: Smoking Status (Most current) and Tobacco Use (All prior to encounter date) This section includes the most current, and the historical, smoking and tobacco-related health factors from the [facility] where the Encounter took place.Current Smoking Status This section includes the most current smoking, or tobacco-related health factor, from the [facility] where the Encounter took place. Date/Time Current Smoking Status Comment Facility July 09, 2020 02:00 PM VA-TOBACCO FORMER USER [facility] Tobacco Use History This section includes a history of the smoking, or tobacco- related health factors, that were collected on or before the date of the Encounter. The data comes from the NH facility where the Encounter took place. Date/Time Smoking Status/Tobacco Use Comment Alexis foley July 09, 2020 02:00 PM NH-TOBACCO QUIT 15 YRS OR MORE [facility] Apr 17, 2019 02:39 PM INPT NO TOBACCO USE IN LAST 30 DAYS [facility] Feb 04, 2019 10:37 AM NH-TOBACCO NEVER USED [facility] 03:28 PM VA-[facility]BAC[facility] Jan 30, 2018 03:28 PM NH-TOBACCO QUIT 15 YRS OR MORE [facility] [...] ALL of a patient's completed or amended NH Advance and Rescinded Directives. The entries below indicate that a directive exists for the patient, but an actual copy is not included with this document. The data comes from all NH facilities. Date Advance Directives Provider Source May 29, 2017 CLINICAL WARNING CORNELIO FREITAS [facility] May 16, 2017 ADVANCE DIRECTIVE SERENITY BUENROSTRO [facility] May 16, 2017 ADVANCE DIRECTIVE DISCUSSION SERENITY [place]STRO [place] [facility] May 04, 2017 CLINICAL WARNING MAGO DIAMOND [facility] May 04, 2017 CLINICAL WARNING GAEL ROSARIO [facility] Apr 26, 2017 CLINICAL WARNING JENNIFER DE LEON [facility] Jan 01, 2017 CLINICAL WARNING AYDE WELLS [facility] Jun 09, 2004 ADVANCE DIRECTIVE DARYL VILLARREAL [facility] Jun 07, 2004 ADVANCE DIRECTIVE SHERYL HOLLOWAY [facility] Radiology Reports: +/- 30 days of the [...] the Encounter. The data comes from all NH treatment facilities. Date/Time Radiology Report Provider Source Mar 01, 2021 09:44 AM US LOWER EXTREMITY VEIN (UNILATERAL) ( P): XIAO HUGGINS [facility] JESSICA MOJICA [id number] -[phone] M Exm Date: MAR 01, 2021@09:44 Req Phys: AMARIJT OWEN Loc: [facility] (Re Img Loc: Ultrasound Imaging Service: Unknown (Case [id number] COMPLETE) US EXTREMITY VEINS UNILAT (U S Detailed) CPT:18861 Proc Modifiers : LEFT Reason for Study: please look for DVT Clinical History: Spring IS NOT under investigation for COVID-19 or is COVID-19 negative Swelling, erythema, tenderness incl along deep veins. NOt responsive to antibiotic course. Wells score fo r DVT = 5 Responsible provider name and phone number to n otify for critical findings if other than user placing the order a nd pager listed below: User placing orders pager: [phone] LAST CREATININE 0.6 L (12/15/20) Report Status: Verified Date Reported: MAR 01, 2021 Date Verified: MAR 01, 2021 Blow Moulding Machine Operator E-Sig:/ES/XIAO HUGGINS MD Report: Duplex Ultrasound of [...] Primary Interpreting Staff: XIAO HUGGINS MD, RADIOLOGIST (Blow Moulding Machine Operator) Primary Interpreting Resident: JANNET JOSEPH, THERAPEUTIC RIDING INSTRUCTOR /[facility] Encounter Notes: All associated encounter notes This section contains the clinical notes associated to the Encounter. Date/Time Encounter Note(s) Provider Source Feb 04, 2021 03:04 TACO MAKER NOTE: ROSALIE DIXON [facility] LOCAL TITLE: DIABETES TACO MAKER NOTE STANDARD TITLE: TACO MAKER NOTE DATE OF NOTE: FEB 04, 2021@15:04 ENTRY DATE: FEB 04, 2021@15:04:47 AUTHOR: ROSALIE DIXON EXP COSIGNER: URGENCY: STATUS: COMPLETED JESSICA MOJICA is a 75 YO MALE followed by [facility] for medication management. * was scheduled for phone visit. He was a t [facility], so visit was done in clinic instead* SUBJECTIVE: reports he just received the insulin gla rgine. He notes he gave the first dose yesterday. He thi nks he gave 8 units. He will give his next dose when he gets home today. He didn' t have his meter with him in clinic. He didn't take his BG this morning before coming to the hospital. He states on average his BG were running between 190-210 before the insulin glargine was started. He reports he hasn't been taking his met formin twice daily. He thinks he takes it one time per day. He can go back to [facility] twice daily. He stores it in the fridge, so forgets about it. Spring requesting an alarmi ng pill container. He previously had one that worked very well for him. It is now broken and he would like another one. He feels like it really helped him remember to take his medica tions better. ROS: (-) hypoglycemia symptoms (-) hyperglycemia symptoms SMBG Readings: None today MEDICATION RECONCILIATION: Active and Recently Outpatient Medicatio ns (excluding Supplies): Active Outpatient Medications Status 1) ACCU-CHEK GUIDE (GLUCOSE) TEST STRIP USE 1 ST RIP ACTIVE TOPICALLY TWICE A DAY TO CHECK BLOOD SUGAR--USE WITHIN 3 MINUTES OF REMOVING FROM CONTAINER T EST AT DIFFERENT TIMES OF THE DAY OR DIRECTED 2) ACETAMINOPHEN 500MG TAB TAKE ONE TABLET BY MO UTH ACTIVE EVERY 6 HOURS NEEDED FOR PAIN*NOT TO EXCEED 4000MG IN 24 HOURS FROM ALL SOURCES* 3) ALBUTEROL 90MCG (CFC-F) 200D ORAL INHL INHALE 2 PUFFS ACTIVE BY INHALATION FOUR TIMES A DAY NEEDED FOR IMMEDIATE RELIEF OF SHORTNESS OF BREATH *SHAKE WELL* 4) ALOE VESTA PROTECTIVE TOP OINT APPLY TO LEFT HEEL AND ACTIVE RIGHT FOOT TOPICALLY SUNDAY, SUNDAY AND AY INSTRUCTED FOR DRESSING CHANGES 5) ARTIFICIAL SALIVA (BIOTENE MOUTH) SPRAY 1-2 A CTIVE SPRAYS IN MOUTH EVERY HOUR NEEDED FOR DRY MO UTH 6) ARTIFICIAL TEARS POLYVINYL ALCOHOL INSTILL 1 DROP IN ACTIVE BOTH EYES THREE TIMES A DAY NEEDED FOR DRY E YES 7) ASPIRIN 81MG EC TAB TAKE ONE TABLET BY MOUTH EVERY ACTIVE DAY TO PREVENT HEART ATTACK DO NOT CHEW 8) ATORVASTATIN CALCIUM 80MG TAB TAKE ONE TABLET BY ACTIVE MOUTH AT BEDTIME FOR CHOLESTEROL AND HEART DISE ASE 9) BUMETANIDE 1MG TAB TAKE ONE TABLET BY MOUTH T WICE A ACTIVE DAY FOR FLUID RETENTION 10) BUPROPION HCL 150MG 24HR SA TAB TAKE ONE TAB LET BY ACTIVE MOUTH EVERY DAY 11) CARBOXYMETHYLCELLULOSE NA 0.5% OPH SOLN INST ILL 1 ACTIVE DROP IN BOTH EYES FOUR TIMES A DAY FOR DRY EYES 12) CLEANSER,WOUND SKINTEGRITY TOP SPRAY TO LEFT ACTIVE HEEL AND RIGHT FOOT SUNDAY, SUNDAY AND Y INSTRUCTED FOR DRESSING CHANGES 13) CODEINE 10/GG 100MG/5ML (ALC-F/SF) LIQ TAKE 5 ML TO ACTIVE 10 ML BY MOUTH THREE TIMES A DAY NEEDED FOR COUGH 14) CYANOCOBALAMIN 1000MCG TAB TAKE TWO TABLETS BY MOUTH ACTIVE EVERY WEEK FOR VITAMIN B12 SUPPLEMENT 15) DICLOFENAC NA 1% TOP GEL APPLY 4 GRAMS TO KN EE FOUR ACTIVE TIMES A DAY NEEDED FOR PAIN -USE DOSE CARD I N BOX TO MEASURE DOSE -MAXIMUM OF 32 GM PER DAY 16) EMPAGLIFLOZIN 25MG TAB TAKE ONE-HALF TABLET BY MOUTH ACTIVE EVERY MORNING FOR DIABETES 17) ERGOCALCIF 1,250MCG (D2-50,000UNIT) CAP TAKE ONE ACTIVE (S) CAPSULE BY MOUTH EVERY MONTH 18) FLUTICASONE PROP 50MCG 120D NASAL INHL SPRAY 1 PUFF ACTIVE EACH NOSTRIL IN EACH NOSTRIL TWICE A DAY FOR NASAL USE 19) GLIPIZIDE 10MG TAB TAKE ONE TABLET BY MOUTH TWICE A ACTIVE DAY TAKE 30 MINUTES BEFORE MEAL FOR DIABETE S 20) HYDROCORTISONE 2.5% CREAM APPLY THIN LAVER T O ANKLE ACTIVE TOPICALLY THREE TIMES A DAY NEEDED FOR ITCHI NG 21) INSULIN,GLARGINE 100 UNT/ML 3ML SOLOSTAR INJ ECT 8 ACTIVE UNITS UNDER THE SKIN AT BEDTIME FOR DIABETES DISPENSE WITH SOLSTAR PEN 22) LATANOPROST 0.005% OPH SOLN INSTILL 1 DROP I N LEFT ACTIVE EYE AT BEDTIME FOR GLAUCOMA REFRIGERATE BOTTLE UNTIL OPENED. 23) LIDOCAINE 4% TOP CREAM APPLY MODERATE AMOUNT THREE ACTIVE TIMES A DAY NEEDED FOR PAIN CREAM 24) LIDOCAINE 5% PATCH APPLY 1 PATCH EVERY DAY F OR ACTIVE BACK PAIN -WEAR FOR ONLY 12 HOURS AND THEN DIANA VE AND LEAVE OFF FOR 12 HOURS 25) LOSARTAN 50MG TAB TAKE ONE-HALF TABLET BY MO UTH EVERY ACTIVE (S) DAY FOR HIGH BLOOD PRESSURE 26) METFORMIN HCL 500MG/5ML ORAL SOLN TAKE TWO A CTIVE TEASPOONSFUL BY MOUTH TWICE A DAY *Not taking twice daily; rep orts taking one time daily, however, has 3/4 bottle from July so suspect more doses have been missed * 27) MICONAZOLE NITRATE 2% TOP PWDR USE TO AFFECT ED AREA ACTIVE TOPICALLY TWICE A DAY FOR FUNGAL INFECTION/GROI N RASH 28) MULTIVIT W/MINERALS, CAP/TAB TAKE 1 TABLET BY ACTIVE MOUTH EVERY DAY FOR FOLIC ACID AND IRON DEFICIE NCY (REPLACES FERROUS SULFATE) 29) OXYCODONE 5MG/ACETAMINOPHEN 325MG TAB TAKE 2 TABLETS ACTIVE BY MOUTH THREE TIMES A DAY FOR SEVERE FOOT PAIN 30) POTASSIUM CHLORIDE 20MEQ/PKT ORAL PWD TAKE 1 PACKET ACTIVE BY MOUTH EVERY DAY --TAKE WITH WATER-- 31) PREDNISOLONE ACETATE 1% OPH SUSP INSTILL 1 D ROP IN ACTIVE OPERATIVE EYE FOUR TIMES A DAY SHAKE WELL FOR POST-OP INFLAMMATION 32) PREGABALIN 100MG ORAL CAP TAKE ONE CAPSULE B Y MOUTH ACTIVE THREE TIMES A DAY FOR NERVE PAIN -REPLACES GABAPENTIN 33) PROPRANOLOL HCL 80MG TAB TAKE ONE TABLET BY MOUTH ACTIVE TWICE A DAY FOR HAND TREMOR 34) ROPINIROLE HCL 2MG SA TAB TAKE TWO TABLETS B Y MOUTH ACTIVE EVERY DAY 35) SEMAGLUTIDE 1MG/0.75ML INJ PEN 3ML INJECT 1M G UNDER ACTIVE THE SKIN EVERY WEEK 36) SILVASORB GEL,TOP APPLY TO AFFECTED AREAS TO PICALLY ACTIVE ONCE DAILY FOR FOOT ULCER 37) SODIUM CHLORIDE 5% OPH OINT APPLY THIN STRIP TO BOTH ACTIVE EYES AT BEDTIME 38) SODIUM CHLORIDE 5% OPH SOLN INSTILL 1 DROP I N BOTH ACTIVE EYES FOUR TIMES A DAY 39) SODIUM FLUORIDE 1.1% TOOTHPASTE BRUSH SMALL AMOUNT ACTIVE MOUTH EVERY MORNING AND AT BEDTIME ON TOOTHBRUS H, BRUSH FOR 2 MINUTES. 40) TADALAFIL 20MG TAB TAKE ONE TABLET BY MOUTH AT ACTIVE BEDTIME TAKE AT LEAST 30 MINUTES BEFORE ANTICIP ATED SEXUAL ACTIVITY. MAXIMUM 4 DOSES FOR 30-DAY SUP PLY 41) TRAZODONE HCL 50MG TAB TAKE ONE TABLET BY MO UT AT ACTIVE BEDTIME NEEDED FOR SLEEP 42) TRIAMCINOLONE ACETONIDE 0.1% OINT APPLY MODE RATE ACTIVE AMOUNT TWICE A DAY NEEDED FOR ITCHING AVOI D FACE,GROIN & ARMPITS *FOR EXTERNAL USE ONLY 43) VANICREAM TOP CREAM APPLY THIN LAYER TOPICAL LY EVERY ACTIVE DAY FOR DRY SKIN APPLY TO FEET AND LEGS 44) VITAMIN E 180MG (400UNIT) CAP TAKE ONE CAPSU LE BY ACTIVE (S) MOUTH EVERY DAY Inactive Outpatient Medications Status 1) ACCU-CHEK GUIDE (GLUCOSE) TEST STRIP USE 1 ST RIP FOUR TIMES A DAY TO CHECK BLOOD SUGAR -USE WITHIN 3 MINUTES OF REMOVING FROM CONTAINER 2) DOXYCYCLINE HYCLATE 100MG TAB TAKE ONE TABLET BY MOUTH TWICE A DAY FOR WOUND INFECTION Active Non-VA Medications Status 1) Non-VA OXYMETAZOLINE HCL 0.05% NASAL SPRAY 1 SPRAY ACTIVE EACH NOSTRIL NEEDED 47 Total Medications Adherence to medications: missing doses of metfo rmin OBJECTIVE: ALLERGIES/ADR: RIVAROXABAN (Jul 25, 2017) Vitals: Temperature: 96.7 F [35.9 C] (01/05/2021 10:29) Blood Pressure: 111/71 (01/05/2021 10:29) Pulse: 75 (01/05/2021 10:29) Respiration: 18 (01/05/2021 10:29) Pain: 7 (01/05/2021 10:29) Height: Unavailable (01/05/2021 10:29) Weight: Unavailable (01/05/2021 10:29) BMI: BMI not available without height LABS: Basic Metabolic Panel SODIUM 137 (12/15/20) POTASSIUM 4.3 (12/15/20) CREATININE 0.6 L (12/15/20) UREA NITROGEN 12 (12/15/20) GLUCOSE 277 H (12/15/20) CO2 26 (12/15/20) CHLORIDE 100 (12/15/20) ESTIMATED GFR(eGFR) >60 (12/15/20) MAGNESIUM 2.0 (12/15/20) Collection DT Specimen Test Name Result Units Re f Range 12/15/2020 12:44 PLASMA CREATININE 0.6 L mg/dL 0 .7 - 1.2 12/14/2020 04:25 PLASMA CREATININE 0.5 L mg/dL 0 .7 - 1.2 06/22/2020 10:25 PLASMA CREATININE 0.6 L mg/dL 0 .7 - 1.2 12/15/2020 12:44 PLASMA ESTIMATED GFR(eGF >60 Re f: >=60 12/14/2020 04:25 PLASMA ESTIMATED GFR(eGF >60 Re f: >=60 06/22/2020 10:25 PLASMA ESTIMATED GFR(eGF >60 Re f: >=60 Collection DT Spec HGBA1C 12/15/2020 12:44 BLOOD 9.5 H 06/22/2020 10:22 BLOOD 9.5 H 09/27/2019 00:15 BLOOD 9.3 H Collection DT Specimen Test Name Result Units Re f Range 01/09/2006 10:38 URINE ALB/CREAT RATIO,U 5.5 mg/ gCreat 0 - 30 Collection DT Spec WBC HGB HCT PLT MCV NEUT LYMP HS 12/15/2020 12:44 BLOOD 6.29 14.6 45.6 297 86.2 5 6.9 29.1 12/14/2020 04:25 BLOOD 6.93 14.5 44.7 288 85.0 5 8.5 28.4 06/22/2020 10:22 BLOOD 5.95 12.7 L 41.5 268 87.0 61.4 26.4 No data available GLUCOSE 277 H (12/15/20) ASSESSMENT: Goal A1c <8% (FBG 80-150, PP G <210) per [place]/DoD guidelines. Last A1C above goal. On empagliflozin, semaglutide, metformin and now insulin glargine. Notable not adherent to metformin. Reviewed importance of ta jessica twice daily for best BG control. Also reviewed proper storage (should be between 59-86 degrees Fahrenheit and is storing in the fridge) . Only taken insulin glargine one time so difficult assess control. No changes to doses today. * requesting alarming pill container; eros rted OT to request* PLAN: - Take metformin twice daily #Disease-Specific Med Rec: Completed today #Labs: A1C in Feb/Mar - Educated vet on indication/risks/benefits of n ew/changed medication. - Education provided on therapeutic nonpharmacol ogic management to achieve goals. - Vet advised of recent labs. - verbalized underst anding to all plans discussed today. Questions were answered to vet's satisfaction. Time spent: 30 minutes RTC: 2-3 weeks /vinicio/ ROSALIE DIXON Pharmacist Signed: 02/04/2021 15:08
--- OUTSIDE RECORDS SUMMARY | 2021-12-23 16:39 | XMS_ITS | Encounter Summary ---
:1945 Author Organization [facility] Address [address] [place] [address] Support Name Relationship Address Phone FRANCES GANDARA Unavailable [address] [place] [address] FRANCES GANDARA Unavailable [address] [place] [address] FRANCES GANDARA Unavailable [address] [place] [address] FRANCES GANDARA Unavailable [address] [place] [address] Insurance Providers: All historical and current Section [...] MEDICARE MEDICARE PART Apr 19, PART A [id number] 800 Whit MOJICA (WNR) (M) A 2007 50A [phone] JESSICA MEDICARE MEDICARE PART Apr 19, PART A [id number] 800 Whit [place] (WNR) (M) A 2007 [id number] [phone] JESSICA Selected Encounter This section includes the information on record at CO for the Encounter. Date/Time Encounter Type Encounter Description Reason Provider Source Feb 09, 2021 02:38 Outpatient Encounter PRIMARY CARE/MEDICINE PM IHE Encounter Template Text not used by CO Plan of Treatment: Future Appointments (+ 6 [...] 20 appointments. The data comes from all [facility]. Appointment Date/Time Appointment Type Appointment Facili ty Name Feb 14, 2021 02:00 PM AMBULATORY - SURGERY [facility] S Feb 16, 2021 08:30 AM AMBULATORY - REHAB MEDICINE [facility] Feb 17, 2021 02:30 PM AMBULATORY - NONE [facility] Feb 23, 2021 09:00 AM AMBULATORY - NONE [facility] Feb 23, 2021 01:30 PM AMBULATORY - NONE [facility] Feb 23, 2021 02:30 PM AMBULATORY - MEDICINE [facility] CS Feb 28, 2021 08:00 AM AMBULATORY - NONE [facility] Mar 01, 2021 07:45 AM AMBULATORY - SURGERY [facility] S Mar 01, 2021 08:43 AM AMBULATORY - MEDICINE [facility] Mar 01, 2021 09:44 AM AMBULATORY - NONE [facility] Mar 02, 2021 02:00 PM AMBULATORY - REHAB MEDICINE [facility] Mar 03, 2021 01:00 PM AMBULATORY - SURGERY [facility] S Mar 08, 2021 01:00 PM AMBULATORY - NONE [facility] Mar 09, 2021 10:45 AM AMBULATORY - SURGERY [facility] S Mar 09, 2021 11:30 AM AMBULATORY - NONE [facility] Mar 10, 2021 10:45 AM AMBULATORY - NONE [facility] Mar 17, 2021 11:30 AM AMBULATORY - NONE [facility] Mar 22, 2021 02:30 PM AMBULATORY - NONE [facility] Mar 23, 2021 07:00 AM AMBULATORY - NONE [facility] Mar 28, 2021 02:00 PM AMBULATORY - MEDICINE [facility] Active, Pending, and Scheduled Orders This section includes a listing of several types of active, pending, and scheduled orders, including clinic medications orders, diagnostic test orders, procedure orders and consult orders; where the start date of the order is 45 days before the date of the Encounter or 45 days after the date of the Encounter. The data comes from all [facility]. Test Date/Time Test Type Test Details Facility Name Jan 25, 2021 06:15 Laboratory - COVID-[address] [facility] AM Chemistry Order (CEPHEID) NASOPHARYNGEAL SWAB WC ONCE Lab Results: +/- 30 days of the encounter This section includes the Chemistry and Hematology Lab Results on record with CO for the patient. Radiology Reports and Pathology Reports are provided separately, in subsequent sections.Lab Results This section contains the Chemistry/Hematology Results that were resulted 30 days before or 30 daysafter the date of the Encounter. Date/Time Source Result Type Result - Unit Interpretation Reference Range Comment Mar 01, 2021 09:31 [facility] EXTRA MINT TUBE Specimen Type: PLASMA AM No comment enter ed. Ordering Provid er: AMARJIT OWEN Report Released Date/Time: Mar 01, 2021 09:31 AM Reporting Lab: [facility] [address] [facility] [id number] Performing Lab: [facility] [address] EXTRA MINT TUBE RECEIVED Mar 01, 2021 09:31 [facility] C-REACTIVE PROTEIN Specim en Type: SERUM AM No comment enter ed. Ordering Provid er: AMARJIT OWEN Report Released Date/Time: Mar 01, 2021 09:12 AM Reporting Lab: [facility] [address] [facility] [address] Performing Lab: [facility] [address] [facility] [address] C-REACTIVE PROTEIN 9.22 H <5.00 Mar 01, 2021 09:31 AM [facility] CBC & DIFF Specim en Type: BLOOD Comment: Automa sarthak Differential Performed Ordering Provid er: AMARJIT OWEN Report Released Date/Time: Mar 01, 2021 09:12 AM Reporting Lab: [facility] [address] [facility] [address] Performing Lab: [facility] [address] [facility] [address] WBC 5.58 4.0-11.0 RBC 4.90 4.6-6.2 HGB [...] 0.02 0-0.1 Mar 01, 2021 09:31 AM [facility] HEMOGLOBIN A1C Specim en Type: BLOOD No comment enter ed. Ordering Provid er: CARIDAD MARTINEZ Report Released Date/Time: Mar 01, 2021 04:01 PM Reporting Lab: [facility] [address] [facility] [address] Performing Lab: [facility] [address] [facility] [address] HEMOGLOBIN A1C 8.0 H 4.0-6.0 Social History: Smoking Status (Most current) and Tobacco Use (All prior to encounter date) This section includes the most current, and the historical, smoking and tobacco-related health factors from the [place] facility where the Encounter took place.Current Smoking Status This section includes the most current smoking, or tobacco-related health factor, from the [place] facility where the Encounter took place. Date/Time Current Smoking Status Comment Facility July 09, 2020 02:00 PM CO-TOBACCO QUIT 15 YRS OR MORE [facility] Tobacco Use History This section includes a history of the smoking, or tobacco- related health factors, that were collected on or before the date of the Encounter. The data comes from the [place] facility where the Encounter took place. Date/Time Smoking Status/Tobacco Use Comment [facility] July 09, 2020 02:00 PM VA-TOBACCO QUIT 15 YRS OR MORE [facility] Apr 17, 2019 02:39 PM INPT NO TOBACCO USE IN LAST 30 DAYS [facility] Feb 04, 2019 10:37 AM VA-TOBACCO NEVER USED TROY BLANTON [facility] Oct 15, 2018 02:43 PM INPT NO TOBACCO USE IN LAST 30 DAYS [facility] Oct 13, 2018 11:30 PM INPT NO TOBACCO USE IN LAST 30 DAYS [facility] Sep 02, 2018 05:50 PM INPT NO TOBACCO USE IN LAST 30 DAYS [facility] Aug 12, 2018 07:28 PM INPT NO TOBACCO USE IN LAST 30 DAYS [facility] Jan 30, 2018 03:28 PM VA-TOBACCO FORMER USER MIN NEJEANETTE [facility] Jan 30, 2018 03:28 PM VA-TOBACCO QUIT 15 YRS OR MORE [facility] May 29, 2017 04:53 PM INPT NO TOBACCO USE IN LAST 30 DAYS [facility] Apr 25, 2017 10:44 PM INPT NO TOBACCO USE IN LAST 30 DAYS [facility] Jan 01, 2017 06:40 PM INPT NO TOBACCO USE IN LAST 30 DAYS [facility] Dec 21, 2016 02:43 PM FORMER TOBACCO USER 7Y OR GREATER [facility] Sep 24, 2013 08:52 AM FORMER TOBACCO USER 7Y OR GREATER [facility] Advance Directives: All historical and current Section Date Range: From patient's date of to the date document was created. This section includes ALL of a patient's completed or amended [place] Advance and Rescinded Directives. The entries below indicate that a directive exists for the patient, but an actual copy is not included with this document. The data comes from all [facility]. Date Advance Directives Provider Source May 29, 2017 CLINICAL WARNING CORNELIO FREITAS S [facility] May 16, 2017 ADVANCE DIRECTIVE SERENITY BUENROSTRO [facility] May 16, 2017 ADVANCE DIRECTIVE DISCUSSION SERENITY [place]O [place] [facility] May 04, 2017 CLINICAL WARNING MAGO DIAMOND [facility] May 04, 2017 CLINICAL WARNING GAEL ROSARIO [facility] Apr 26, 2017 CLINICAL WARNING JENNIFER DE LEON [facility] Jan 01, 2017 CLINICAL WARNING AYDE WELLS [facility] Jun 09, 2004 ADVANCE DIRECTIVE DARYL VILLARREAL [facility] Jun 07, 2004 ADVANCE DIRECTIVE SHERYL HOLLOWAY [facility] Radiology Reports: +/- 30 days [...] the Encounter. The data comes from all [place] treatment facilities. Date/Time Radiology Report Provider Source Mar 01, 2021 09:44 AM US LOWER EXTREMITY VEIN (UNILATERAL) ( P): XIAO HUGGINS [facility] JESSICA MOJICA PRERNA [id number] [birth year] 8 M Exm Date: MAR 01, 2021@09:44 Req Phys: AMARJIT OWEN Loc: [facility] WALK-IN (Re Img Loc: Ultrasound Imaging Service: Unknown (Case [id number] COMPLETE) US EXTREMITY VEINS UNILAT (U S Detailed) CPT:26842 Proc Modifiers : LEFT Reason for Study: please look for DVT Clinical History: [place] IS NOT under investigation for COVID-19 or is COVID-19 negative Swelling, erythema, tenderness incl along deep veins. NOt responsive to antibiotic course. Wells score fo r DVT = 5 Responsible provider name and phone number to n otify for critical findings if other than user placing the order a nd pager listed below: User placing orders pager: [phone] LAST CREATININE 0.6 L (12/15/20) Report Status: Verified Date Reported: MAR 01, 2021 Date Verified: MAR 01, 2021 Post Manager E-Sig:/ES/XIAO HUGGINS MD Report: Duplex Ultrasound of [...] Primary Interpreting Staff: XIAO HUGGINS MD, RADIOLOGIST (Post Manager) Primary Interpreting Resident: JANNET JOSEPH, GERMAN TUTOR /[facility] Encounter Notes: All associated encounter notes This section contains the clinical notes associated to the Encounter. Date/Time Encounter Note(s) Provider Source Feb 09, 2021 02:38 PM HOME HEALTH REFERRAL NOTE: JEANETTE MATA [facility] LOCAL TITLE: [facility] KAYLAH AJ STANDARD TITLE: HOME HEALTH REFERRAL NOTE DATE OF NOTE: FEB 09, 2021@14:38 ENTRY DATE: FEB 09, 2021@14:38:25 AUTHOR: EMERSON IBRAHIM EXP COSIGNER: URGENCY: STATUS: COMPLETED HOME HEALTH CARE CERTIFICATION AND PLAN OF CARE SIGNED BY: Dr. Martinez for Home Health Care [facility] [place] Certification period From: 01/02/2021 To: 2021 /vinicio/ KAYLAH KO ADVANCED MSA Signed: 02/09/2021 14:40
--- OUTSIDE RECORDS SUMMARY | 2021-12-23 16:40 | XMS_ITS | Encounter Summary ---
:1945 Author Organization Department [facility] rs Address [address] [place] [address] Support Name Relationship Address Phone FRANCES GANDARA Unavailable [address] [place] [address] FRANCES GANDARA Unavailable [address] [place] [address] FRANCES GANDARA Unavailable [address] [place] [address] FRANCES GANDARA Unavailable [address] [place] [address] Insurance Providers: All historical and current Section [...] MEDICARE MEDICARE PART Apr 19, PART A [id number] 800 Whit MOJICA (WNR) (M) A 2007 50A [phone] JESSICA MEDICARE MEDICARE PART Apr 19, PART A [id number] 800 Whit [place] (WNR) (M) A 2007 [id number] [phone] JESSICA Selected Encounter This section includes the information on record at NE for the Encounter. Date/Time Encounter Type Encounter Description Reason Provider Source Feb 10, 2021 02:08 Outpatient Encounter ADMIN [facility] [place] PM ([place]) IHE Encounter Template Text not used by [...] 20 appointments. The data comes from all [facility]. Appointment Date/Time Appointment Type Appointment Facili ty Name Feb 14, 2021 02:00 PM AMBULATORY - SURGERY [facility] S Feb 16, 2021 08:30 AM AMBULATORY - REHAB MEDICINE [facility] Feb 17, 2021 02:30 PM AMBULATORY - NONE [facility] Feb 23, 2021 09:00 AM AMBULATORY - NONE [facility] Feb 23, 2021 01:30 PM AMBULATORY - NONE [facility] Feb 23, 2021 02:30 PM AMBULATORY - MEDICINE [facility] CS Feb 28, 2021 08:00 AM AMBULATORY - NONE [facility] Mar 01, 2021 07:45 AM AMBULATORY - SURGERY [facility] S Mar 01, 2021 08:43 AM AMBULATORY - MEDICINE [facility] CS Mar 01, 2021 09:44 AM AMBULATORY - NONE [facility] Mar 02, 2021 02:00 PM AMBULATORY - REHAB MEDICINE [facility] Mar 03, 2021 01:00 PM AMBULATORY - SURGERY [facility] S Mar 08, 2021 01:00 PM AMBULATORY - NONE [facility] Mar 09, 2021 10:45 AM AMBULATORY - SURGERY [facility] S Mar 09, 2021 11:30 AM AMBULATORY - NONE [facility] Mar 10, 2021 10:45 AM AMBULATORY - NONE [facility] Mar 17, 2021 11:30 AM AMBULATORY - NONE [facility] Mar 22, 2021 02:30 PM AMBULATORY - NONE [facility] Mar 23, 2021 07:00 AM AMBULATORY - NONE [facility] Mar 28, 2021 02:00 PM AMBULATORY - MEDICINE [facility] Active, Pending, and Scheduled Orders This section includes a listing of several types of active, pending, and scheduled orders, including clinic medications orders, diagnostic test orders, procedure orders and consult orders; where the start date of the order is 45 days before the date of the Encounter or 45 days after the date of the Encounter. The data comes from all [facility]. Test Date/Time Test Type Test Details Facility Name Jan 25, 2021 06:15 Laboratory - COVID-19 DIAGNOSTIC PANEL MIN [facility] AM Chemistry Order (CEPHEID) [...] Reference Range Comment Mar 01, 2021 09:31 [facility] EXTRA MINT TUBE Specimen Type: PLASMA AM No comment enter ed. Ordering Provid er: AMARJIT OWEN Report Released Date/Time: Mar 01, 2021 09:31 AM Reporting Lab: [facility] [address] [facility] [id number] Performing Lab: [facility] [address] [facility] [address] EXTRA MINT TUBE RECEIVED Mar 01, 2021 09:31 [facility] C-REACTIVE PROTEIN Specim en Type: SERUM AM No comment enter ed. Ordering Provid er: AMARJIT OWEN Report Released Date/Time: Mar 01, 2021 09:12 AM Reporting Lab: [facility] [address] [facility] [address] Performing Lab: [facility] [address] [facility] [address] C-REACTIVE PROTEIN 9.22 H <5.00 Mar 01, 2021 09:31 AM [facility] CBC & DIFF Specim en Type: BLOOD Comment: Automa sarthak Differential Performed Ordering Provid er: AMARJIT OWEN Report Released Date/Time: Mar 01, 2021 09:12 AM Reporting Lab: [facility] [address] [facility] [address] Performing Lab: [facility] [address] [facility] [address] WBC 5.58 4.0-11.0 RBC 4.90 4.6-6.2 HGB [...] 0.02 0-0.1 Mar 01, 2021 09:31 AM [facility] HEMOGLOBIN A1C Specim en Type: BLOOD No comment enter ed. Ordering Provid er: CARIDAD DENNIS Report Released Date/Time: Mar 01, 2021 04:01 PM Reporting Lab: [facility] [address] [facility] [address] Performing Lab: [facility] [address] [facility] [address] HEMOGLOBIN A1C 8.0 H 4.0-6.0 Social History: [...] Comment Facility July 09, 2020 02:00 PM NE-TOBACCO QUIT 15 YRS OR MORE [facility] Tobacco Use History This section includes a history of the smoking, or tobacco- related health factors, that were collected on or before the date of the Encounter. The data comes from the [place] facility where the Encounter took place. Date/Time Smoking Status/Tobacco Use Comment [facility] July 09, 2020 02:00 PM VA-TOBACCO QUIT 15 YRS OR MORE [facility] Apr 17, 2019 02:39 PM INPT NO TOBACCO USE IN LAST 30 DAYS [facility] Feb 04, 2019 10:37 AM NE-TOBACCO NEVER USED TROY BLANTON [facility] Oct 15, 2018 02:43 PM INPT NO TOBACCO USE IN LAST 30 DAYS [facility] Oct 13, 2018 11:30 PM INPT NO TOBACCO USE IN LAST 30 DAYS [facility] Sep 02, 2018 05:50 PM INPT NO TOBACCO USE IN LAST 30 DAYS [facility] Aug 12, 2018 07:28 PM INPT NO TOBACCO USE IN LAST 30 DAYS [facility] Jan 30, 2018 03:28 PM VA-TOBACCO FORMER USER [place] [facility] Jan 30, 2018 03:28 PM VA-TOBACCO QUIT 15 YRS OR MORE [facility] May 29, 2017 04:53 PM INPT NO TOBACCO USE IN LAST 30 DAYS [facility] Apr 25, 2017 10:44 PM INPT NO TOBACCO USE IN LAST 30 DAYS [facility] Jan 01, 2017 06:40 PM INPT NO TOBACCO USE IN LAST 30 DAYS [facility] Dec 21, 2016 02:43 PM FORMER TOBACCO USER 7Y OR GREATER [facility] Sep 24, 2013 08:52 AM FORMER TOBACCO USER 7Y OR GREATER [facility] Advance Directives: All historical and current Section Date Range: From patient's date of to the date document was created. This section includes ALL of a patient's completed or amended [place] Advance and Rescinded Directives. The entries below indicate that a directive exists for the patient, but an actual copy is not included with this document. The data comes from all [facility]. Date Advance Directives Provider Source May 29, 2017 CLINICAL WARNING CORNELIO FREITASAPOLI S [facility] May 16, 2017 ADVANCE DIRECTIVE SERENITY BUENROSTRO [facility] May 16, 2017 ADVANCE DIRECTIVE DISCUSSION SERENITY BU[place]STRO [place] [facility] May 04, 2017 CLINICAL WARNING MAGO DIAMOND [facility] May 04, 2017 CLINICAL WARNING GAEL ROSARIO [facility] Apr 26, 2017 CLINICAL WARNING JENNIFER DE LEON [facility] Jan 01, 2017 CLINICAL WARNING AYDE WELLS [facility] Jun 09, 2004 ADVANCE DIRECTIVE DARYL VILLARREAL [facility] Jun 07, 2004 ADVANCE DIRECTIVE SHERYL HOLLOWAY [facility] Radiology Reports: +/- 30 days of [...] the Encounter. The data comes from all [facility] facilities. Date/Time Radiology Report Provider Source Mar 01, 2021 09:44 AM US LOWER EXTREMITY VEIN (UNILATERAL) ( P): XIAO HUGGINS-VI[place]AY [facility] JESSICA MOJICA [id number] -[birth year] 8 M Exm Date: MAR 01, 2021@09:44 Req Phys: AMARJIT OWEN Loc: [facility] WALK-IN (Re Img Loc: Ultrasound Imaging Service: Unknown (Case [id number] COMPLETE) US EXTREMITY VEINS UNILAT (U S Detailed) CPT:96466 Proc Modifiers : LEFT Reason for Study: please look for DVT Clinical History: IS NOT under investigation for COVID-19 or is COVID-19 negative Swelling, erythema, tenderness incl along deep veins. NOt responsive to antibiotic course. Wells score fo r DVT = 5 Responsible provider name and phone number to n otify for critical findings if other than user placing the order a nd pager listed below: User placing orders pager: [phone] LAST CREATININE 0.6 L (12/15/20) Report Status: Verified Date Reported: MAR 01, 2021 Date Verified: MAR 01, 2021 Video Game Engineer E-Sig:/ES/XIAO HUGGINS MD Report: Duplex Ultrasound of [...] Primary Interpreting Staff: XIAO HUGGINS MD, RADIOLOGIST (Video Game Engineer) Primary Interpreting Resident: JANNET JOSEPH, AIRWAY TRAFFIC CONTROLLER /[facility] Encounter Notes: All associated encounter notes This section contains the clinical notes associated to the Encounter. Date/Time Encounter Note(s) Provider Source Feb 10, 2021 02:09 PM TELEHEALTH NOTE: LUIS ALBERTO RUBIO IS [facility] LOCAL TITLE: TELEHEALTH TECHNOLOGY SCREENING (T TS) MARY CARMEN STANDARD TITLE: TELEHEALTH NOTE DATE OF NOTE: FEB 10, 2021@14:09 ENTRY DATE: FEB 10, 2021@14:09:24 AUTHOR: LUIS ALBERTO RUBIO EXP COSIGNER: URGENCY: STATUS: COMPLETED [place] unable to do VVC at this time. [place] d oes not have a tablet, phone, desktop, laptop or connectivity at home. Provide r may enter Digital Divide consult and Social Work will determine if Vetera n is appropriate for a NE issued device. For NE issued iPads, [place] must utilize for VA video appointments at least once every 90 days. Will a dd provider for signature if known. /vinicio/ LUIS ALBERTO BERMUDEZ 23 PM&R AMSA Signed: 02/10/2021 14:09
--- OUTSIDE RECORDS SUMMARY | 2021-12-23 16:42 | XMS_ITS | Encounter Summary ---
:1945 Author Organization [facility] Address [address] [place] [id number] Support Name Relationship Address Phone FRANCES GANDARA Unavailable [address] [place] [address] FRANCES GANDARA Unavailable [address] [place] [address] FRANCES GANDARA Unavailable [address] [place] [address] FRANCES GANDARA Unavailable [address] [place] [address] Insurance Providers: All historical and current Section [...] MEDICARE MEDICARE PART Apr 19, PART A [id number] Whit MOJICA (WNR) (M) A 2007 50A [phone] JESSICA MEDICARE MEDICARE PART Apr 19, PART A [id number] Whit MOJICA (WNR) (M) A 2007 [id number] [phone] JESSICA Selected Encounter This section includes the information on record at [place] for the Encounter. Date/Time Encounter Type Encounter Description Reason Provider Source Feb 22, 2021 12:30 Outpatient Encounter COMMUNITY CARE PM CONSULT I[facility] Encounter Template Text not used by [facility] Plan of Treatment: Future Appointments (+ 6 [...] appointments. The data comes from all [facility]. Appointment Date/Time Appointment Type Appointment Facili ty Name Feb 23, 2021 09:00 AM AMBULATORY - NONE [facility] Feb 23, 2021 01:30 PM AMBULATORY - NONE [facility] Feb 23, 2021 02:30 PM AMBULATORY - MEDICINE [facility] Feb 28, 2021 08:00 AM AMBULATORY - NONE [facility] Mar 01, 2021 07:45 AM AMBULATORY - SURGERY [facility] Mar 01, 2021 08:43 AM AMBULATORY - MEDICINE [facility] Mar 01, 2021 09:44 AM AMBULATORY - NONE [facility] Mar 02, 2021 02:00 PM AMBULATORY - REHAB MEDICINE [facility] Mar 03, 2021 01:00 PM AMBULATORY - SURGERY [facility] Mar 08, 2021 01:00 PM AMBULATORY - NONE [facility] Mar 09, 2021 10:45 AM AMBULATORY - SURGERY [facility] Mar 09, 2021 11:30 AM AMBULATORY - NONE [facility] Mar 10, 2021 10:45 AM AMBULATORY - NONE [facility] Mar 17, 2021 11:30 AM AMBULATORY - NONE [facility] Mar 22, 2021 02:30 PM AMBULATORY - NONE [facility] Mar 23, 2021 07:00 AM AMBULATORY - NONE [facility] Mar 28, 2021 02:00 PM AMBULATORY - MEDICINE [facility] Mar 31, 2021 07:00 AM AMBULATORY - NONE [facility] Mar 31, 2021 02:00 PM AMBULATORY - REHAB MEDICINE [facility] Apr 07, 2021 01:00 PM AMBULATORY - SURGERY [facility] Active, Pending, and Scheduled Orders This section includes a listing of several types of active, pending, and scheduled orders, including clinic medications orders, diagnostic test orders, procedure orders and consult orders; where the start date of the order is 45 days before the date of the Encounter or 45 days after the date of the Encounter. The data comes from all [facility]. Test Date/Time Test Type Test Details Facility Name Jan 25, 2021 06:15 Laboratory - COVID-19 DIAGNOSTIC PANEL [facility] AM Chemistry Order (CEPHEID) NASOPHARYNGEAL SWAB WC ONCE Lab Results: +/- 30 days of the encounter This section includes the Chemistry and Hematology Lab Results on record with [place] for the patient. Radiology Reports and Pathology Reports are provided separately, in subsequent sections.Lab Results This section contains the Chemistry/Hematology Results that were resulted 30 days before or 30 daysafter the date of the Encounter. Date/Time Source Result Type Result - Unit Interpretation Reference Range Comment Mar 01, 2021 09:31 [facility] EXTRA MINT TUBE Specimen Type: PLASMA AM No comment enter ed. Ordering Provid er: AMARJIT OWEN Report Released Date/Time: Mar 01, 2021 09:31 AM Reporting Lab: [facility] [address] [facility] [place] [address] Performing Lab: [facility] [address] [facility] [place] [address] EXTRA MINT TUBE RECEIVED Mar 01, 2021 09:31 [facility] C-REACTIVE PROTEIN Specim en Type: SERUM AM No comment enter ed. Ordering Provid er: AMARJIT OWEN Report Released Date/Time: Mar 01, 2021 09:12 AM Reporting Lab: [facility] [address] [facility] [place] [address] Performing Lab: [facility] [address] [facility] [place] [address] C-REACTIVE PROTEIN 9.22 H <5.00 Mar 01, 2021 09:31 AM [facility] CBC & DIFF Specim en Type: BLOOD Comment: Automa sarthak Differential Performed Ordering Provid er: AMARJIT OWEN Report Released Date/Time: Mar 01, 2021 09:12 AM Reporting Lab: [facility] [address] [facility] [place] [address] Performing Lab: [facility] [address] [facility] [place] [address] WBC 5.58 4.0-11.0 RBC 4.90 4.6-6.2 HGB [...] 0.02 0-0.1 Mar 01, 2021 09:31 AM [facility] HEMOGLOBIN A1C Specim en Type: BLOOD No comment enter ed. Ordering Provid er: GISELLE MARTINEZ Report Released Date/Time: Mar 01, 2021 04:01 PM Reporting Lab: [facility] [address] [facility] [place] [address] Performing Lab: [facility] [address] [facility] [address] HEMOGLOBIN A1C 8.0 H 4.0-6.0 Social History: Smoking Status (Most current) and Tobacco Use (All prior to encounter date) This section includes the most current, and the historical, smoking and tobacco-related health factors from the [place] facility where the Encounter took place.Current Smoking Status This section includes the most current smoking, or tobacco-related health factor, from the [place] facility where the Encounter took place. Date/Time Current Smoking Status Comment Facility July 09, 2020 02:00 PM VA-TOBACCO FORMER USER [facility] Tobacco Use History This section includes a history of the smoking, or tobacco- related health factors, that were collected on or before the date of the Encounter. The data comes from the [place] facility where the Encounter took place. Date/Time Smoking Status/Tobacco Use Comment [facility] July 09, 2020 02:00 PM VA-TOBACCO QUIT 15 YRS OR MORE [facility] Apr 17, 2019 02:39 PM INPT NO TOBACCO USE IN LAST 30 DAYS [facility] Feb 04, 2019 10:37 AM VA-TOBACCO NEVER USED [facility] Oct 15, 2018 02:43 PM INPT NO TOBACCO USE IN LAST 30 DAYS [facility] Oct 13, 2018 11:30 PM INPT NO TOBACCO USE IN LAST 30 DAYS [facility] Sep 02, 2018 05:50 PM INPT NO TOBACCO USE IN LAST 30 DAYS [facility] Aug 12, 2018 07:28 PM INPT NO TOBACCO USE IN LAST 30 DAYS [facility] Jan 30, 2018 03:28 PM VA-TOBACCO FORMER USER [facility] Jan 30, 2018 03:28 PM VA-TOBACCO QUIT 15 YRS OR MORE [facility] May 29, 2017 04:53 PM INPT NO TOBACCO USE IN LAST 30 DAYS [facility] Apr 25, 2017 10:44 PM INPT NO TOBACCO USE IN LAST 30 DAYS [facility] Jan 01, 2017 06:40 PM INPT NO TOBACCO USE IN LAST 30 DAYS [facility] Dec 21, 2016 02:43 PM FORMER TOBACCO USER 7Y OR GREATER [facility] Sep 24, 2013 08:52 AM FORMER TOBACCO USER 7Y OR GREATER [facility] Advance Directives: All historical and current Section Date Range: From patient's date of to the date document was created. This section includes ALL of a patient's completed or amended [place] Advance and Rescinded Directives. The entries below indicate that a directive exists for the patient, but an actual copy is not included with this document. The data comes from all [facility]. Date Advance Directives Provider Source May 29, 2017 CLINICAL WARNING CORNELIO FREITAS S [facility] May 16, 2017 ADVANCE DIRECTIVE SERENITY BUENROSTRO [facility] May 16, 2017 ADVANCE DIRECTIVE DISCUSSION [facility] [place] [place] [facility] May 04, 2017 CLINICAL WARNING MAGO DIAMOND [facility] May 04, 2017 CLINICAL WARNING GAEL ROSARIO [facility] Apr 26, 2017 CLINICAL WARNING JENNIFER DE LEON [facility] Jan 01, 2017 CLINICAL WARNING AYDE WELLS [facility] Jun 09, 2004 ADVANCE DIRECTIVE DARYL VILLARREAL [facility] Jun 07, 2004 ADVANCE DIRECTIVE SHERYL HOLLOWAY [facility] Radiology Reports: +/- 30 days of the [...] the Encounter. The data comes from all [place] treatment facilities. Date/Time Radiology Report Provider Source Mar 01, 2021 09:44 AM US LOWER EXTREMITY VEIN (UNILATERAL) ( P): XIAO HUGGINS [facility] JESSICA MOJICA PRERNA [id number] [birth year] 8 M Exm Date: MAR 01, 2021@09:44 Req Phys: AMARJIT OWEN Loc: [facility] DE[facility] WALK-IN (Re Img Loc: Ultrasound Imaging Service: Unknown (Case [id number] COMPLETE) US EXTREMITY VEINS UNILAT (U S Detailed) CPT:86072 Proc Modifiers : LEFT Reason for Study: [...] pager listed below: User placing orders pager: [phone] LAST CREATININE 0.6 L (12/15/20) Report Status: Verified Date Reported: MAR 01, 2021 Date Verified: MAR 01, 2021 Form Setter E-Sig:/ES/XIAO HUGGINS MD Report: Duplex Ultrasound of [...] Primary Interpreting Staff: XIAO HUGGINS MD, RADIOLOGIST (Form Setter) Primary Interpreting Resident: JANNET JOSEPH, QA ENGINEER /[facility] Encounter Notes: All associated encounter notes This section contains the clinical notes associated to the Encounter. Date/Time Encounter Note(s) Provider Source Feb 22, 2021 12:30 PM NONVA NOTE: LUIS PARIKHJASKARAN TURNER [facility] LOCAL TITLE: COMMUNITY CARE COORDINATION PLAN STANDARD TITLE: NONVA NOTE DATE OF NOTE: FEB 22, 2021@12:30 ENTRY DATE: FEB 22, 2021@12:30:34 AUTHOR: LUIS PARIKH EXP COSIGNER: URGENCY: STATUS: COMPLETED COMMUNITY CARE COORDINATION PLAN Has ADDEND A called the Community Care Call L enmanuel requesting a change of vendors for [facility]HOME HEALTH AIDE co nsult# [phone] after care has started due to a recent move to [place]. /vinicio/ LUIS PARIKH AMSA Signed: 02/22/2021 12:35 Receipt Acknowledged By: 02/22/2021 13:33 /vinicio/ VARGAS Salter, PHN [facility] Business Development Manager for LENIN GRIGSBY 02/22/2021 ADDENDUM STATUS: COMPLETED Vet has no active HC authorization. Defer to [place] [facility] for review. Once evaluated and medical necessity has been determine d, PACT to enter [facility] REFERRAL-SKILLED and/or NON-SKILLED as appr opriate. /vinicio/ VARGAS Salter, PHSasha [facility] Business Development Manager Signed: 02/22/2021 13:36 Receipt Acknowledged By: 02/22/2021 14:13 /vinicio/ KAM FINCH REGISTERED NURSE 02/22/2021 17:52 /vinicio/ Giselle Martinez MD Staff Physician 02/22/2021 ADDENDUM STATUS: COMPLETED forwarding to pact rn /vinicio/ KAM FINCH REGISTERED NURSE Signed: 02/22/2021 14:13 Receipt Acknowledged By: 03/04/2021 10:30 /vinicio/ STEVIE GUARDADO/Baljinder Team business management associate ext [phone] for RAINER ALLEN 02/28/2021 ADDENDUM STATUS: COMPLETED call to catherine. shorty on with direct call back number. /vinicio/ FABY Pedroza insurance claims analyst Signed: 02/28/2021 11:16 03/04/2021 ADDENDUM STATUS: COMPLETED Spoke to vet. He needs pen[facility]entiary t o assist with med set-up. Currently he is doing his foot dressing changes but evelyn wilson feels that things are getting worse, I have another hole in my foot and may need mo re assistance with this. See wound care nurse note 03/03. Vivek needs light home making and assistance with showering. He has no hand ra ils in his shower and has been told he needs to wait a month to get them. OT consult in, appt scheduled. Requesting a new community care massage consult. Last one was declined trevon use another consult was still active until 02/23/20. Now a new consult c an be placed. Home address updated for home care orders. will refer to pcp regarding ma ssage therapy consult. Will place penitentiary and nonskilled home care c onsult. /vinicio/ STEVIE GUARDADO/Baljinder Team business management associate ext [phone] Signed: 03/04/2021 10:08 Receipt Acknowledged By: * AWAITING SIGNATURE * NEWFERNYGISELLEOSCAR STUART 03/04/2021 ADDENDUM STATUS: COMPLETED error in above message. Previous massage consult was active until 02/22/21. /vinicio/ STEVIE GUARDADO/Baljinder Team business management associate ext [phone] Signed: 03/04/2021 10:20
--- OUTSIDE RECORDS SUMMARY | 2021-12-23 16:44 | XMS_ITS | Encounter Summary ---
:1945 Author Organization Department [facility] rs Address [address] [place] [id number] Support Name Relationship Address Phone FRANCES GANDARA Unavailable [address] [place] [address] FRANCES GANDARA Unavailable [address] [place] [address] FRANCES GANDARA Unavailable [address] [place] [address] FRANCES GANDARA Unavailable [address] [place] [address] Insurance Providers: All historical and current Section [...] MEDICARE MEDICARE PART Apr 19, PART A [id number] Whit MOJICA (WNR) (M) A 2007 50A [phone] JESSICA MEDICARE MEDICARE PART Apr 19, PART A [id number] Whit MOJICA (WNR) (M) A 2007 [id number] [phone] JESSICA Selected Encounter This section includes the information on record at [place] for the Encounter. Date/Time Encounter Type Encounter Reason Provider Source Description Feb 23, 2021 OFFICE O/P EST PRIMARY ICD-10-CM JOSE LEMON 02:30 PM MOD 30-39 MIN CARE/MEDICINE L03.032 L Cellulitis of left toe with Provider Comments: Cellulitis of left Toe IHE Encounter Template Text not used by [facility] Assessments - Encounter Diagnoses This section includes the primary and secondary diagnoses documented for the Encounter. Date/Time Primary/Secondary Diagnosis Name Provider Source Diagnosis Feb 23, 2021 PRIMARY Cellulitis of JOSE LEMON V A 05:39 PM left toe L [facility] Feb 23, 2021 SECONDARY Cellulitis, JOSE LEMON [facility] 05:39 PM unspecified L [facility] Plan of Treatment: Future Appointments (+ 6 months) and Future Tests (+/- 45 days) The Plan of Treatment section includes future care activities for the patient from all [place] treatmentfacilities. This section includes future appointments and future orders which are active, pending orscheduled.Future Appointments This section includes appointments that were scheduled to occur 6 months from the date of the Encounter, up to a maximum of 20 appointments. The data comes from all [place] treatment facilities. Appointment Date/Time Appointment Type Appointment Facili ty Name Feb 28, 2021 08:00 AM AMBULATORY - NONE [facility] Mar 01, 2021 07:45 AM AMBULATORY - SURGERY [facility] Mar 01, 2021 08:43 AM AMBULATORY - MEDICINE [facility] Mar 01, 2021 09:44 AM AMBULATORY - NONE [facility] Mar 02, 2021 02:00 PM AMBULATORY - REHAB MEDICINE [facility] Mar 03, 2021 01:00 PM AMBULATORY - SURGERY [facility] Mar 08, 2021 01:00 PM AMBULATORY - NONE [facility] Mar 09, 2021 10:45 AM AMBULATORY - SURGERY [facility] Mar 09, 2021 11:30 AM AMBULATORY - NONE [facility] Mar 10, 2021 10:45 AM AMBULATORY - NONE [facility] Mar 17, 2021 11:30 AM AMBULATORY - NONE [facility] Mar 22, 2021 02:30 PM AMBULATORY - NONE [facility] Mar 23, 2021 07:00 AM AMBULATORY - NONE [facility] Mar 28, 2021 02:00 PM AMBULATORY - MEDICINE [facility] Mar 31, 2021 07:00 AM AMBULATORY - NONE [facility] Mar 31, 2021 02:00 PM AMBULATORY - REHAB MEDICINE [facility] Apr 07, 2021 01:00 PM AMBULATORY - SURGERY [facility] Apr 15, 2021 01:20 PM AMBULATORY - SURGERY [facility] Apr 25, 2021 11:00 AM AMBULATORY - MEDICINE [facility] Apr 28, 2021 09:00 AM AMBULATORY - NONE [facility] [...] the Encounter. The data comes from all [place] treatment facilities. Test Date/Time Test Type Test Details Facility Name Jan 25, 2021 06:15 Laboratory - COVID-19 DIAGNOSTIC PANEL [facility] AM Chemistry Order (CEPHEID) NASOPHARYNGEAL SWAB WC ONCE Lab Results: +/- 30 days of the encounter This section includes the Chemistry and Hematology Lab Results on record with [place] for the patient. Radiology Reports and Pathology Reports are provided separately, in subsequent sections.Lab Results This section contains the Chemistry/Hematology Results that were resulted 30 days before or 30 daysafter the date of the Encounter. Date/Time Source Result Type Result - Unit Interpretation Reference Range Comment Mar 01, 2021 09:31 [facility] EXTRA MINT TUBE Specimen Type: PLASMA AM No comment enter ed. Ordering Provid er: AMARJIT OWEN Report Released Date/Time: Mar 01, 2021 09:31 AM Reporting Lab: [facility] [address] [facility] [id number] Performing Lab: [facility] [address] [facility] [id number] EXTRA MINT TUBE RECEIVED Mar 01, 2021 09:31 [facility] C-REACTIVE PROTEIN Specim en Type: SERUM AM No comment enter ed. Ordering Provid er: AMARJIT OWEN Report Released Date/Time: Mar 01, 2021 09:12 AM Reporting Lab: [facility] [address] [facility] [phone] Performing Lab: [facility] [address] [facility] [id number] C-REACTIVE PROTEIN 9.22 H <5.00 Mar 01, 2021 09:31 AM [facility] CBC & DIFF Specim en Type: BLOOD Comment: Automa carlo Differential Performed Ordering Provid er: AMARJIT OWEN Report Released Date/Time: Mar 01, 2021 09:12 AM Reporting Lab: [facility] [address] [facility] [phone] Performing Lab: [facility] [address] [facility] [phone] WBC 5.58 4.0-11.0 RBC 4.90 4.6-6.2 HGB [...] 0.02 0-0.1 Mar 01, 2021 09:31 AM [facility] HEMOGLOBIN A1C Specim en Type: BLOOD No comment enter ed. Ordering Provid er: CARIDAD DENNIS Report Released Date/Time: Mar 01, 2021 04:01 PM Reporting Lab: [facility] [id number] Performing Lab: [facility] [id number] HEMOGLOBIN A1C 8.0 H 4.0-6.0 Vital Signs: All taken on the encounter date This section contains inpatient and outpatient Vital Signs collected on the date of the Encounter. Date/Time Temperature Pulse Blood Respiratory SP02 Pain Height Weight Joseph dy Source Pressure Rate Mass Index Feb 23, 98.4 F 76 156/82 16 /min 96 % [place] 2021 02:20 /min mm[Hg] [facility] Social History: Smoking Status (Most current) and Tobacco Use (All prior to encounter date) This section includes the most current, and the historical, smoking and tobacco-related health factors from the [facility] where the Encounter took place.Current Smoking Status This section includes the most current smoking, or tobacco-related health factor, from the [facility] where the Encounter took place. Date/Time Current Smoking Status Comment Facility July 09, 2020 02:00 PM [place] Tobacco Use History This section includes a history of the smoking, or tobacco- related health factors, that were collected on or before the date of the Encounter. The data comes from the [facility] facility where the [facility] took place. Date/Time Smoking Status/Tobacco Use Comment Facil ity July 09, 2020 02:00 PM VA-TOBACCO QUIT 15 YRS OR MORE [facility] Apr 17, 2019 02:39 PM INPT NO TOBACCO USE IN LAST 30 DAYS [facility] Feb 04, 2019 10:37 AM [place] [facility] USED [facility] Oct 15, 2018 02:43 PM INPT [...] 2018 03:28 PM [facility]-TOBACCO [facility] Jan 30, 2018 03:28 PM [place]-TOBACCO [...] this document. The data comes from all [facility]. Date Advance Directives Provider Source May 29, 2017 CLINICAL WARNING CORNELIO FREITAS S [facility] May 16, 2017 ADVANCE DIRECTIVE SERENITY BUENROSTRO [facility] May 16, 2017 ADVANCE DIRECTIVE DISCUSSION [facility] [place] [facility] May 04, 2017 CLINICAL WARNING MAGO DIAMOND [facility] May 04, 2017 CLINICAL WARNING GAEL ROSARIO [facility] Apr 26, 2017 CLINICAL WARNING JENNIFER DE LEON [facility] Jan 01, 2017 CLINICAL WARNING AYDE WELLS [facility] Jun 09, 2004 ADVANCE DIRECTIVE DARYL VILLARREAL [facility] Jun 07, 2004 ADVANCE DIRECTIVE AMIESHERYL ANN [facility] Radiology Reports: +/- 30 days of [...] the Encounter. The data comes from all [place] treatment facilities. Date/Time Radiology Report Provider Source Mar 01, 2021 09:44 AM US LOWER EXTREMITY VEIN (UNILATERAL) ( P): XIAO HUGGINS [facility] JESSICA MOJICA [id number] [phone] M Exm Date: MAR 01, 2021@09:44 Req Phys: AMARJIT OWEN Pat Loc: [facility] DEPT WALK-IN (Re Img Loc: Ultrasound Imaging Service: Unknown (Case [id number] COMPLETE) US EXTREMITY VEINS UNILAT (U S Detailed) CPT:13249 Proc Modifiers : LEFT Reason for Study: [...] pager listed below: User placing orders pager: [phone] LAST CREATININE 0.6 L (12/15/20) Report Status: Verified Date Reported: MAR 01, 2021 Date Verified: MAR 01, 2021 Dog Beautician E-Sig:/ES/XIAO HUGGINS MD Report: Duplex Ultrasound of [...] Primary Interpreting Staff: XIAO HUGGINS MD, RADIOLOGIST (Dog Beautician) Primary Interpreting Resident: JANNET JOSEPH, AWNING FINISHER /[employer] Encounter Notes: All associated encounter notes This section contains the clinical notes associated to the Encounter. Date/Time Encounter Note(s) Provider Source Feb 23, 2021 05:08 INTERNAL MEDICINE NOTE: JOSE LEMON [facility] LOCAL TITLE: MEDICINE CLINIC NOTE STANDARD TITLE: INTERNAL MEDICINE NOTE DATE OF NOTE: FEB 23, 2021@17:08 ENTRY DATE: FEB 23, 2021@17:08:54 AUTHOR: JOSE LEMON EXP COSIGNER: URGENCY: STATUS: COMPLETED The patient is a 75 year old MALE I was asked to see him during a visit with a [facility] T pharmacist who is managing his diabetes. He describes moving recently and says he was up moving around and busy walking for 12 hours/day. His left lower leg has become larger, red, warm, and swollen. Unsure exactly when, but in the last couple of days. He had a toenail removed by podiatry from the ft 2nd toe on February 14 and that toe is nearly double the size of the 3r d toe which is new and abnormal. He feels warm at times, but is afebrile today. Denies any change or problems with breathing. --- PMHx: Active problems - Computerized Problem List is [...] -> inc LFT, n ot on anticoag 2/2 hemoptysis 11. Essential tremor - on propranolol 12. Hemoptysis - and infiltrates; ILD; bronchoscopy 08/2017; pr esumed MTX toxicity 13. Aortic valve stenosis 14. 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 Charcot's joint of foot 16. Peripheral vascular disease - angiogram 06/15/2020 atherectomy and balloon a ngioplasty - chronic venous stasis, h/o venous pump use 17. Heart failure Active Outpatient Medications (including Supplie s): Active Outpatient Medications Status 1) ACCU-CHEK GUIDE (GLUCOSE) TEST STRIP USE 1 ST RIP ACTIVE TOPICALLY TWICE A DAY TO CHECK BLOOD SUGAR--USE WITHIN 3 MINUTES OF REMOVING FROM CONTAINER T EST AT DIFFERENT TIMES OF THE DAY OR DIRECTED 2) ACETAMINOPHEN 500MG TAB TAKE ONE TABLET BY [facility] ACTIVE EVERY 6 HOURS NEEDED FOR PAIN*NOT [...] AND AY INSTRUCTED FOR DRESSING CHANGES 6) AMOXICILLIN 875/CLAV K 125MG TAB TAKE 1 TABLE T BY ACTIVE MOUTH TWICE A DAY 7) ARTIFICIAL SALIVA (BIOTENE MOUTH) SPRAY SPRAY 1-2 ACTIVE SPRAYS IN MOUTH EVERY HOUR NEEDED FOR DRY MO UTH 8) ARTIFICIAL TEARS POLYVINYL ALCOHOL INSTILL 1 DROP IN ACTIVE BOTH EYES THREE TIMES A DAY NEEDED FOR DRY E YES 9) ASPIRIN 81MG EC TAB TAKE ONE TABLET BY MOUTH EVERY ACTIVE (S) DAY TO PREVENT HEART ATTACK DO NOT CHEW 10) ATORVASTATIN CALCIUM 80MG TAB TAKE ONE TABLE T BY ACTIVE MOUTH AT BEDTIME FOR CHOLESTEROL AND HEART DISE ASE 11) BUMETANIDE 1MG TAB TAKE ONE TABLET BY MOUTH TWICE A ACTIVE DAY FOR FLUID RETENTION 12) BUPROPION HCL 150MG 24HR SA TAB TAKE ONE TAB LET BY ACTIVE MOUTH EVERY DAY 13) CARBOXYMETHYLCELLULOSE NA 0.5% OPH SOLN INST ILL 1 ACTIVE DROP IN BOTH EYES FOUR TIMES A DAY FOR DRY EYES 14) CLEANSER,WOUND SKINTEGRITY TOP SPRAY SPRAY T O LEFT ACTIVE HEEL AND RIGHT FOOT SUNDAY, SUNDAY AND Y INSTRUCTED FOR DRESSING CHANGES 15) CODEINE 10/GG 100MG/5ML (ALC-F/SF) LIQ TAKE 5 ML TO ACTIVE 10 ML BY MOUTH THREE TIMES A DAY NEEDED FOR COUGH 16) CYANOCOBALAMIN 1000MCG TAB TAKE TWO TABLETS BY MOUTH ACTIVE EVERY WEEK FOR VITAMIN B12 SUPPLEMENT 17) DICLOFENAC NA 1% TOP GEL APPLY 4 GRAMS TO KN EE FOUR ACTIVE TIMES A DAY NEEDED FOR PAIN -USE DOSE CARD I N BOX TO MEASURE DOSE -MAXIMUM OF 32 GM PER DAY 18) DOXYCYCLINE HYCLATE 100MG TAB TAKE ONE TABLE T BY ACTIVE MOUTH TWICE A DAY 19) DRESS,MEPILEX BORDER FLEX 4X4IN #[id number] APPL Y ACTIVE DRESSING DIRECTED 20) DRESSING,RESTORE,CA ALGIN 12IN H#[id number] APPL Y ACTIVE DRESSING DIRECTED 21) EMPAGLIFLOZIN 25MG TAB TAKE ONE-HALF TABLET BY MOUTH ACTIVE EVERY MORNING FOR DIABETES 22) ERGOCALCIF 1,250MCG (D2-50,000UNIT) CAP TAKE ONE ACTIVE CAPSULE BY MOUTH EVERY MONTH 23) FLUTICASONE PROP 50MCG 120D NASAL INHL SPRAY 1 PUFF ACTIVE EACH NOSTRIL IN EACH NOSTRIL TWICE A DAY FOR NASAL USE 24) GAUZE PAD 4IN X 4IN 8-PLY NONSTERILE USE GAU ZE SPONGE ACTIVE TOPICALLY DIRECTED 25) GLIPIZIDE 10MG TAB TAKE ONE TABLET BY MOUTH TWICE A ACTIVE DAY TAKE 30 MINUTES BEFORE MEAL FOR DIABETE S 26) HYDROCORTISONE 2.5% CREAM APPLY THIN LAVER T O ANKLE ACTIVE TOPICALLY THREE TIMES A DAY NEEDED FOR ITCHI NG 27) INSULIN,GLARGINE 100 UNT/ML 3ML SOLOSTAR INJ ECT 8 ACTIVE UNITS UNDER THE SKIN AT BEDTIME FOR DIABETES DISPENSE WITH SOLSTAR PEN 28) LANCET,SOFTCLIX USE 1 LANCET TOPICALLY DI RECTED ACTIVE *DISPOSE OF IN A HARD-PLASTIC CONTAINER WITH A SCREW-ON LIDCONTACT GARBAGE [employer] FOR PROPER DISPOSAL 29) LATANOPROST 0.005% OPH SOLN INSTILL 1 DROP I N LEFT ACTIVE EYE AT BEDTIME FOR GLAUCOMA REFRIGERATE BOTTLE UNTIL OPENED. 30) LIDOCAINE 4% TOP CREAM APPLY MODERATE AMOUNT THREE ACTIVE TIMES A DAY NEEDED FOR PAIN CREAM 31) LIDOCAINE 5% PATCH APPLY 1 PATCH EVERY DAY F OR ACTIVE BACK PAIN -WEAR FOR ONLY 12 HOURS AND THEN DIANA VE AND LEAVE OFF FOR 12 HOURS 32) LOSARTAN 50MG TAB TAKE ONE-HALF TABLET BY MO UTH EVERY ACTIVE (S) DAY FOR HIGH BLOOD PRESSURE 33) METFORMIN HCL 500MG/5ML ORAL SOLN TAKE TWO A CTIVE TEASPOONSFUL BY MOUTH TWICE A DAY 34) MICONAZOLE NITRATE 2% TOP PWDR USE TO AFFECT ED AREA ACTIVE TOPICALLY TWICE A DAY FOR FUNGAL INFECTION/GROI N RASH 35) MULTIVIT W/MINERALS, CAP/TAB TAKE 1 TABLET BY ACTIVE MOUTH EVERY DAY FOR FOLIC ACID AND IRON DEFICIE NCY (REPLACES FERROUS SULFATE) 36) NEEDLE,PEN 31G,8MM USE 1 NEEDLE, NEEDLE, PEN 31G 8MM ACTIVE TOPICALLY DIRECTED *DISPOSE OF IN A HARD-ZARIA STIC CONTAINER WITH A SCREW-ON LID CONTACT GARBAGE [employer] FOR PROPER DISPOSAL TO USE WITH GLARGI NE 37) OXYCODONE 5MG/ACETAMINOPHEN 325MG TAB TAKE 2 TABLETS ACTIVE (S) BY MOUTH THREE TIMES A DAY FOR SEVERE FOOT PAIN 38) PAD,ABDOMINAL 7.5 X 8 STERILE USE PAD TOPICA LLY ACTIVE DIRECTED 39) POTASSIUM CHLORIDE 20MEQ/PKT ORAL PWD TAKE 1 PACKET ACTIVE BY MOUTH EVERY DAY --TAKE WITH WATER-- 40) PREDNISOLONE ACETATE 1% OPH SUSP INSTILL 1 D ROP IN ACTIVE OPERATIVE EYE FOUR TIMES A DAY SHAKE WELL FOR POST-OP INFLAMMATION 41) PREGABALIN 100MG ORAL CAP TAKE ONE CAPSULE B Y MOUTH ACTIVE THREE TIMES A DAY FOR NERVE PAIN -REPLACES GABAPENTIN 42) PROPRANOLOL HCL 80MG TAB TAKE ONE TABLET BY MOUTH ACTIVE (S) TWICE A DAY FOR HAND TREMOR 43) ROPINIROLE HCL 2MG SA TAB TAKE TWO TABLETS B Y MOUTH ACTIVE EVERY DAY 44) SEMAGLUTIDE 1MG/0.75ML INJ PEN 3ML INJECT 1M G UNDER ACTIVE THE SKIN EVERY WEEK 45) SILVASORB GEL,TOP APPLY TO AFFECTED AREAS TO PICALLY ACTIVE ONCE DAILY FOR FOOT ULCER 46) SODIUM CHLORIDE 5% OPH OINT APPLY THIN STRIP TO BOTH ACTIVE EYES AT BEDTIME 47) SODIUM CHLORIDE 5% OPH SOLN INSTILL 1 DROP I N BOTH ACTIVE EYES FOUR TIMES A DAY 48) SODIUM FLUORIDE 1.1% TOOTHPASTE BRUSH SMALL AMOUNT ACTIVE MOUTH EVERY MORNING AND AT BEDTIME ON TOOTHBRUS H, BRUSH FOR 2 MINUTES. 49) SULFAMETHOXAZOLE 800/TRIMETH 160MG TAB TAKE 1 TABLET ACTIVE BY MOUTH TWICE A DAY 50) TADALAFIL 20MG TAB TAKE ONE TABLET BY MOUTH AT ACTIVE BEDTIME TAKE AT LEAST 30 MINUTES BEFORE ANTICIP ATED SEXUAL ACTIVITY. MAXIMUM 4 DOSES FOR 30-DAY SUP PLY 51) TRIAMCINOLONE ACETONIDE 0.1% OINT APPLY MODE RATE ACTIVE AMOUNT TWICE A DAY NEEDED FOR ITCHING AVOI D FACE,GROIN & ARMPITS *FOR EXTERNAL USE ONLY 52) VANICREAM TOP CREAM APPLY THIN LAYER TOPICAL LY EVERY ACTIVE DAY FOR DRY SKIN APPLY TO FEET AND LEGS 53) VASHE WOUND THERAPY TOP SOLN SATURATE GAUZE WITH ACTIVE SOLUTION AND USE DIRECTED 54) VITAMIN E 180MG (400UNIT) CAP TAKE ONE CAPSU LE BY ACTIVE MOUTH EVERY DAY Active Non-VA Medications Status 1) Non-VA OXYMETAZOLINE HCL 0.05% NASAL SPRAY 1 SPRAY ACTIVE EACH NOSTRIL NEEDED 55 Total Medications Vitals: Temperature: 98.4 F [36.9 C] (02/23/2021 14:20) Blood Pressure: 156/82 (02/23/2021 14:20) Pulse: 76 (02/23/2021 14:20) Respiration: 16 (02/23/2021 14:20) Pain: 7 (01/05/2021 10:29) Exam: 2nd toe on the left foot is massively enlarged, bigger than the great toe. It is red and warm. Some blanchable erythemia overl lis non-blanching. Toenail is absent and he is dripping small amounts of se rosang drainage. Wear custom shoes, foot smells foul. Curiously, no redness in midfoot up to above the ankle (1/4 sock line). Then red and warm again to above the mid michel. Negative Williams's. A/P: Prescribed dual therapy antibiotics per CDSS fo r moderate cellulitis given involvement of toe and leg. Strong return precautions given. DVT was considered (has a history) but his rece nt moving and procedure favor cellulitis. Return to clinic: as needed with PACT /es/ JOSE LEMON APRN, ENVIRONMENTAL SERVICES DIRECTOR Nurse Practitioner Signed: 02/23/2021 17:39
--- OUTSIDE RECORDS SUMMARY | 2021-12-23 16:45 | XMS_ITS | Encounter Summary ---
:1945 Author Organization [facility] Address [address] [place] [id number] Support Name Relationship Address Phone FRANCES GANDARA Unavailable [phone] [place] [address] FRANCES GANDARA Unavailable [phone] [place] [address] FRANCES GANDARA Unavailable [phone] [place] [address] FRANCES GANDARA Unavailable [phone] [place] [address] Insurance Providers: All historical and current Section [...] MEDICARE MEDICARE PART Apr 19, PART A [id number] Whit MOJICA (WNR) (M) A 2007 50A [phone] JESSICA MEDICARE MEDICARE PART Apr 19, PART A [id number] Whit MOJICA (WNR) (M) A 2007 [id number] [phone] JESSICA Selected Encounter This section includes the information on record at [facility] for the Encounter. Date/Time Encounter Type Encounter Reason Provider Source Description Mar 01, 2021 EMERGENCY DEPT EMERGENCY DEPT ICD-10-CM L03.90 NAM AKHTAR 08:43 AM VISIT Cellulitis, E JADIEL unspecified with Provider Comments: Cellulitis, unspecified IHE Encounter Template Text not used by [facility] Assessments - Encounter Diagnoses This section includes the primary and secondary diagnoses documented for the Encounter. Date/Time Primary/Secondary Diagnosis Name Provider Source Diagnosis Mar 01, 2021 PRIMARY Cellulitis, ALMASPPA,ZAYRA ESPERANZA V A 11:21 AM unspecified [facility] Plan of Treatment: Future Appointments (+ 6 months) and Future Tests (+/- 45 days) The Plan of Treatment section includes future care activities for the patient from all [place] treatmentfacilities. This section includes future appointments and future orders which are active, pending orscheduled.Future Appointments This section includes appointments that were scheduled to occur 6 months from the date of the Encounter, up to a maximum of 20 appointments. The data comes from all [place] treatment facilities. Appointment Date/Time Appointment Type Appointment Facili ty Name Mar 02, 2021 02:00 PM AMBULATORY - REHAB MEDICINE [facility] Mar 03, 2021 01:00 PM AMBULATORY - SURGERY [facility] Mar 08, 2021 01:00 PM AMBULATORY - NONE [facility] Mar 09, 2021 10:45 AM AMBULATORY - SURGERY [facility] Mar 09, 2021 11:30 AM AMBULATORY - NONE [facility] Mar 10, 2021 10:45 AM AMBULATORY - NONE [facility] Mar 17, 2021 11:30 AM AMBULATORY - NONE [facility] Mar 22, 2021 02:30 PM AMBULATORY - NONE [facility] Mar 23, 2021 07:00 AM AMBULATORY - NONE [facility] Mar 28, 2021 02:00 PM AMBULATORY - MEDICINE [facility] Mar 31, 2021 07:00 AM AMBULATORY - NONE [facility] Mar 31, 2021 02:00 PM AMBULATORY - REHAB MEDICINE [facility] Apr 07, 2021 01:00 PM AMBULATORY - SURGERY [facility] Apr 15, 2021 01:20 PM AMBULATORY - SURGERY [facility] Apr 25, 2021 11:00 AM AMBULATORY - MEDICINE [facility] Apr 28, 2021 09:00 AM AMBULATORY - NONE [facility] Apr 28, 2021 09:45 AM AMBULATORY - NONE [facility] Apr 28, 2021 10:00 AM AMBULATORY - MEDICINE [facility] May 10, 2021 03:20 PM AMBULATORY - NONE [facility] May 11, 2021 11:45 AM AMBULATORY - MEDICINE [facility] Active, Pending, and Scheduled Orders This section includes a listing of several types of active, pending, and scheduled orders, including clinic medications orders, diagnostic test orders, procedure orders and consult orders; where the start date of the order is 45 days before the date of the Encounter or 45 days after the date of the Encounter. The data comes from all [place] treatment facilities. Test Date/Time Test Type Test Details Facility Name Jan 25, 2021 06:15 Laboratory - COVID-19 DIAGNOSTIC PANEL [facility] AM Chemistry Order (CEPHEID) NASOPHARYNGEAL SWAB WC ONCE Lab Results: +/- 30 days of the encounter This section includes the Chemistry and Hematology Lab Results on record with MS for the patient. Radiology Reports and Pathology Reports are provided separately, in subsequent sections.Lab Results This section contains the Chemistry/Hematology Results that were resulted 30 days before or 30 daysafter the date of the Encounter. Date/Time Source Result Type Result - Unit Interpretation Reference Range Comment Mar 01, 2021 09:31 [facility] EXTRA MINT TUBE Specimen Type: PLASMA AM No comment enter ed. Ordering Provid er: CARLY AKHTAR Report Released Date/Time: Mar 01, 2021 09:31 AM Reporting Lab: [facility] [address] [id number] Performing Lab: [facility] [id number] EXTRA MINT TUBE RECEIVED Mar 01, 2021 09:31 [facility] C-REACTIVE PROTEIN Specim en Type: SERUM AM No comment enter ed. Ordering Provid er: CARLY AKHTAR Report Released Date/Time: Mar 01, 2021 09:12 AM Reporting Lab: [facility] [address] Performing Lab: [facility] [address] C-REACTIVE PROTEIN 9.22 H <5.00 Mar 01, 2021 09:31 AM [facility] CBC & DIFF Specim en Type: BLOOD Comment: Automa carlo Differential Performed Ordering Provid er: CARLY AKHTAR Report Released Date/Time: Mar 01, 2021 09:12 AM Reporting Lab: [facility] [address] [address] Performing Lab: [facility] [address] [address] WBC 5.58 4.0-11.0 RBC 4.90 4.6-6.2 HGB [...] 0.02 0-0.1 Mar 01, 2021 09:31 AM [facility] HEMOGLOBIN A1C Specim en Type: BLOOD No comment enter ed. Ordering Provid er: CARIDAD DENNIS Report Released Date/Time: Mar 01, 2021 04:01 PM Reporting Lab: [facility] [id number] Performing Lab: [facility] [address] HEMOGLOBIN A1C 8.0 H 4.0-6.0 Vital Signs: All taken on the encounter date This section contains inpatient and outpatient Vital Signs collected on the date of the Encounter. Date/Time Temperature Pulse Blood Respiratory SP02 Pain Height Weight Joseph dy Source Pressure Rate Mass Index Mar 01, 97.7 F 68 146/75 18 /min 6 [place] 2021 09:04 /min mm[Hg] [facility] Social History: Smoking Status (Most current) and Tobacco Use (All prior to encounter date) This section includes the most current, and the historical, smoking and tobacco-related health factors from the [facility] where the Encounter took place.Current Smoking Status This section includes the most current smoking, or tobacco-related health factor, from the [facility] facility where the Encounter took place. Date/Time Current Smoking Status Comment Facility July 09, 2020 02:00 PM [facility]-TOBACCO [facility] Tobacco Use History This section includes a history of the smoking, or tobacco- related health factors, that were collected on or before the date of the Encounter. The data comes from the [facility] where the Encounter took place. Date/Time Smoking Status/Tobacco Use Comment [facility] July 09, 2020 02:00 PM VA-TOBACCO QUIT 15 YRS OR MORE [facility] Apr 17, 2019 02:39 PM INPT NO TOBACCO USE IN LAST 30 DAYS [facility] Feb 04, 2019 10:37 AM VA-TOBACCO NEVER USED [facility] [facility] Oct 15, 2018 02:43 PM INPT NO TOBACCO USE IN LAST 30 DAYS [facility] Oct 13, 2018 11:30 PM INPT NO TOBACCO USE IN LAST 30 DAYS [facility] Sep 02, 2018 05:50 PM INPT NO TOBACCO USE IN LAST 30 DAYS [facility] Aug 12, 2018 07:28 PM INPT NO TOBACCO USE IN LAST 30 DAYS [facility] Jan 30, 2018 03:28 PM VA-TOBACCO FORMER USER [facility] [place] [facility] Jan 30, 2018 03:28 PM VA-TOBACCO QUIT 15 YRS OR MORE [facility] May 29, 2017 04:53 PM INPT NO TOBACCO USE IN LAST 30 DAYS [facility] Apr 25, 2017 10:44 PM INPT NO TOBACCO USE IN LAST 30 DAYS [facility] Jan 01, 2017 06:40 PM INPT NO TOBACCO USE IN LAST 30 DAYS [facility] Dec 21, 2016 02:43 PM FORMER TOBACCO USER 7Y OR GREATER [facility] Sep 24, 2013 08:52 AM FORMER TOBACCO USER 7Y OR GREATER [facility] Advance Directives: All historical and current Section Date Range: From patient's date of to the date document was created. This section includes ALL of a patient's completed or amended [place] Advance and Rescinded Directives. The entries below indicate that a directive exists for the patient, but an actual copy is not included with this document. The data comes from all [place] facilities. Date Advance Directives Provider Source May 29, 2017 CLINICAL WARNING CORNELIO FREITAS [facility] May 16, 2017 ADVANCE DIRECTIVE SERENITY BUENROSTRO [facility] May 16, 2017 ADVANCE DIRECTIVE DISCUSSION SERENITY [place]ROSTRO [place] [facility] May 04, 2017 CLINICAL WARNING MAGO DIAMOND [facility] May 04, 2017 CLINICAL WARNING GAEL ROSARIO [facility] Apr 26, 2017 CLINICAL WARNING JENNIFER DE LEON [facility] Jan 01, 2017 CLINICAL WARNING AYDE WELLS [facility] Jun 09, 2004 ADVANCE DIRECTIVE DARYL VILLARREAL [facility] Jun 07, 2004 ADVANCE DIRECTIVE SHERYL HOLLOWAY [facility] Radiology Reports: +/- 30 days of [...] the Encounter. The data comes from all [place] treatment facilities. Date/Time Radiology Report Provider Source Mar 01, 2021 09:44 AM US LOWER EXTREMITY VEIN (UNILATERAL) ( P): XIAO HUGGINS [facility] JESSICA MOJICA [id number] [birth year] M Exm Date: MAR 01, 2021@09:44 Req Phys: CARLY AKHTAR Loc: [facility] DEPT WALK-IN (Re Img Loc: Ultrasound Imaging Service: Unknown (Case [id number] COMPLETE) US EXTREMITY VEINS UNILAT (U S Detailed) CPT:27509 Proc Modifiers : LEFT Reason for Study: [...] pager listed below: User placing orders pager: [phone] LAST CREATININE 0.6 L (12/15/20) Report Status: Verified Date Reported: MAR 01, 2021 Date Verified: MAR 01, 2021 Health Information Technician E-Sig:/ES/XIAO HUGGINS MD Report: Duplex Ultrasound of [...] Primary Interpreting Staff: XIAO HUGGINS MD, RADIOLOGIST (Health Information Technician) Primary Interpreting Resident: JANNET JOSEPH, CLINIC SUPERVISOR /[facility] Encounter Notes: All associated encounter notes This section contains the clinical notes associated to the Encounter. Date/Time Encounter Note(s) Provider Source Mar 01, 2021 11:01 EMERGENCY DEPT EDUCATION NOTE: ZAYRA AKHTAR [facility] TITLE: EMERGENCY DEPT DISCHARGE INSTRUCTI GIANCARLO DUVALL STANDARD TITLE: EMERGENCY DEPT EDUCATION NOTE DATE OF NOTE: MAR 01, 2021@11:01:59 ENTRY DATE: MAR 01, 2021@11:01:59 AUTHOR: CARLY AKHTAR EXP COSIGNER: URGENCY: STATUS: COMPLETED DISCHARGE INSTRUCTIONS IMPORTANT: We examined and treated you today on an emergency basis only. This was not a substitute for, or an effort t o provide, comprehensive medical care. In most cases, you must let your healthcare provider check you again. Tell your healthcare provider about any new or las ting problems. We cannot recognize and treat all injuries or illnesses in one Emergency Department visit. After you leave, you should follow the instructions below. You were treated today by Carly Akhtar DO. Special Information This Information Is About Your Follow Up Care We recommend that you follow up with your [facility] Care Team to have an appointment within the next 1 week. Call to arrange this appointment. If you are not feeling better and i mproving as discussed or if you have any questions please contact your [facility] Provider. This Information Is About Your Illness and Diagn osis CELLULITIS Cellulitis is an infection of the skin and the t issues just under the skin. Cellulitis is not contagious. This means it isn' t spread from one person to another. If cellulitis isn't treated, it can bec ome a very serious infection that spreads through the whole body. What causes cellulitis? Cellulitis is caused by bact eria (germs). Usually the skin is a good barrier to keep germs from getting into our bodies, but if there is a break in the skin, even a tiny one, bacteria ca n get in and cause an infection. Sometimes there is no known break in the skin when cellulitis devel ops, but some of the common injuries to the skin leading to cellulitis inclu de: -animal or human bites -bug bites -trauma (cuts, scrapes, puncture wounds) -intravenous catheters (IVs) -pins used to fix broken bones Who is at higher risk to get cellulitis? People who: -are very young (infants) or very old -have diabetes -have poor circulation -have leg ulcers -are taking medications that suppress the immun e system -are taking steroid medications -have decreased lymph drainage after certain ki nds of surgery -have recently had surgery or dental work What are the signs and symptoms of cellulitis? -redness and swelling of the skin -pain at the area that is infected -warmth of the area that is infected -fever and chills -feeling generally sick -swollen glands -a red streak going from the area of cellulitis toward the heart How does the health care provider know I have ce llulitis? -by examining you and talking with you -by doing blood tests to check white blood cell count and to check for infection in the blood How will my cellulitis be treated? -If the cellulitis is mild, you may be treated at home. -If the cellulitis is severe, you may need to b e in the hospital. -You will be given antibiotics, either by mouth or in an IV. -You may receive medications for pain. -The area that is infected will be raised on pi llows, if possible. -You will need to rest in bed. Please follow these instructions: -Keep taking your antibiotics until they are go ne, even if you feel better. -Keep all follow-up appointments. -Rest until your cellulitis is healed. -Keep the area raised on pillows as much as pos sible. -Cleanse the area gently with soap and water on ce a day unless your health care provider has given you other instructions. -Be aware that the infected area will be more p konrad to get infected again in the future. See your health care provider right away if you notice any sign of cellulitis coming back after your cellulitis is gone. Contact your health care provider as soon as pos sible if you have any of the following: -increased pain. -spreading of the redness or swelling. -the area begins to blister. -there is no improvement after taking antibioti cs for 2 or more days. -fever or chills. -red streaks (or longer red streaks) from the c ellulitis going toward your heart. -any questions or concerns. YOU ARE THE MOST IMPORTANT FACTOR IN YOUR RECOVE RY. Follow the above instructions carefully. Take your medicines as p rescribed. If you do not understand any of your medicines, please ask que aide. If you have any outstanding tests from the emergency department, please contact your provider to review them in the next 3-5 day s. If you have new symptoms, feel worse, or are not getting better as discussed, call to discuss your health quest ions and arrange for follow-up care, or return to the Emergency Room IF YOU ARE EXPERIENCING A MEDICAL EMERGENCY CALL 911 OR GO TO THE NEAREST EMERGENCY ROOM /vinicio/ CARLY AKHTAR MD Chief Resident/MABEL/Vito Signed: 03/01/2021 11:01 Mar 01, 2021 11:00 EMERGENCY DEPT EDUCATION NOTE: ZAYRA AKHTAR [facility] TITLE: EMERGENCY DEPT DISCHARGE RODRIGO DUVALL [place] TITLE: EMERGENCY DEPT EDUCATION NOTE DATE OF NOTE: MAR 01, 2021@11:00:58 ENTRY DATE: MAR 01, 2021@11:00:58 AUTHOR: CARLY AKHTAR EXP COSIGNER: URGENCY: STATUS: COMPLETED DISCHARGE INSTRUCTIONS This information is in addition to what you have already received as part of your discharge instructions. Special Information IMPORTANT MEDICATION INFORMATION -Your medication list includes any medications that were recently prescribed but not filled by the Pharmacy (PENDING Medicvictoria mooney). -Included are any known ACTIVE Medicines. Scout wilson review this list to make sure it is accurate, if this list does not matc h the current medications you are taking please follow-up with your Primary C are Team to have your Medication List reviewed. Pending Medications CEPHALEXIN 500MG CAP \ Sig: TAKE ONE CAPSULE BY MOUTH FOUR TIMES A D AY Active Medications ACCU-CHEK GUIDE (GLUCOSE) TEST STRIP USE 1 STRIP TOPICALLY TWICE A DAY TO CHECK BLOO D SUGAR--USE WITHIN 3 MINUTES OF REMOVING FROM CONTAINER TEST AT DIFFERENT TIMES OF THE DAY OR DIRECTED ACETAMINOPHEN 500MG TAB TAKE ONE TABLET BY MOUTH EV MARGARITO 6 HOURS NEEDED FOR PAIN*NOT TO EXCEED 4000MG IN 24 HOURS FROM ALL SOURCES* ALBUTEROL 90MCG (CFC-F) 200D ORAL INHL INHALE 2 PUFFS BY INHALATION FOUR TIMES A DAY A S NEEDED FOR IMMEDIATE RELIEF OF SHORTNESS OF BREATH *SHAKE WELL* ALCOHOL PREP PAD USE 1 PAD TOPICALLY DIRECTED ALOE VESTA PROTECTIVE TOP OINT APPLY TO LEFT HEEL AND RIGHT FOOT TOPICALLY Sun, SUNDAY AND SUNDAY INSTRUCTED FOR DRESSING CHANGES AMOXICILLIN 875/CLAV K 125MG TAB TAKE 1 TABLET BY MOUTH TWICE A DAY ARTIFICIAL SALIVA (BIOTENE MOUTH) SPRAY SPRAY 1-2 SPRAYS IN MOUTH EVERY HOUR NEEDED FOR DRY MOUTH ARTIFICIAL TEARS POLYVINYL ALCOHOL INSTILL 1 DROP IN BOTH EYES THREE TIMES A DAY A S NEEDED FOR DRY EYES ATORVASTATIN CALCIUM 80MG TAB TAKE ONE TABLET BY MOUTH AT BEDTIME FOR CHOLEST JUANA AND HEART DISEASE BUMETANIDE 1MG TAB TAKE ONE TABLET BY MOUTH TWICE A DAY FOR FLUID RETENTION BUPROPION HCL 150MG 24HR SA TAB TAKE ONE TABLET BY MOUTH EVERY DAY CARBOXYMETHYLCELLULOSE NA 0.5% OPH SOLN INSTILL 1 DROP IN BOTH EYES FOUR TIMES A DAY FO R DRY EYES CLEANSER,WOUND SKINTEGRITY TOP SPRAY SPRAY TO LEFT HEEL AND RIGHT FOOT SUNDAY, AND SUNDAY INSTRUCTED FOR DRESSING CHANGES CODEINE 10/GG 100MG/5ML (ALC-F/SF) LIQ TAKE 5 ML TO 10 ML BY MOUTH THREE TIMES A DAY A S NEEDED FOR COUGH CYANOCOBALAMIN 1000MCG TAB TAKE TWO TABLETS BY MOUTH EVERY WEEK FOR VITAMI N B12 SUPPLEMENT DICLOFENAC NA 1% TOP GEL APPLY 4 GRAMS TO KNEE FOUR TIMES A DAY NEEDE D FOR PAIN -USE DOSE CARD IN BOX TO MEASURE DOSE -MAXIMUM OF 32 GM PER DAY DOXYCYCLINE HYCLATE 100MG TAB TAKE ONE TABLET BY MOUTH TWICE A DAY DRESS,MEPILEX BORDER FLEX 4X4IN #[id number] APPLY DRESSING DIRECTED DRESSING,RESTORE,CA ALGIN 12IN H#[id number] APPLY DRESSING DIRECTED EMPAGLIFLOZIN 25MG TAB TAKE ONE-HALF TABLET BY MOUTH EVERY MORNING FOR DIABETES ERGOCALCIF 1,250MCG (D2-50,000UNIT) CAP TAKE ONE CAPSULE BY MOUTH EVERY MONTH FLUTICASONE PROP 50MCG 120D NASAL INHL SPRAY 1 PUFF EACH NOSTRIL IN EACH NOSTRIL TWICE A DAY FOR NASAL USE GAUZE PAD 4IN X 4IN 8-PLY NONSTERILE USE GAUZE SPONGE TOPICALLY DIRECTED GLIPIZIDE 10MG TAB TAKE ONE TABLET BY MOUTH TWICE A DAY TAKE 30 MINUTES BEFORE MEAL FOR DIABETES HYDROCORTISONE 2.5% CREAM APPLY THIN LAVER TO ANKLE TOPICALLY THREE TIMES A DAY NEEDED FOR ITCHING INSULIN,GLARGINE 100 UNT/ML 3ML SOLOSTAR INJECT 8 UNITS UNDER THE SKIN AT BEDTIME FOR DI ABETES DISPENSE WITH SOLSTAR PEN LANCET,SOFTCLIX USE 1 LANCET TOPICALLY DIRECTED *DISPOSE OF IN A HARD-PLASTIC CONTAINER WITH A SCREW-ON LIDCONTACT GARBAGE LESLEY FOR PROPER DISPOSAL LATANOPROST 0.005% OPH SOLN INSTILL 1 DROP IN LEFT EYE AT BEDTIME FOR GLAUC JOSIAH REFRIGERATE BOTTLE UNTIL OPENED. LIDOCAINE 4% TOP CREAM APPLY MODERATE AMOUNT THREE TIMES A DAY NEED ED FOR PAIN CREAM LIDOCAINE 5% PATCH APPLY 1 PATCH EVERY DAY FOR BACK PAIN -WEAR FOR ONLY 12 HOURS AND THEN REMOVE AND LEAVE OFF FOR 12 HOURS METFORMIN HCL 500MG/5ML ORAL SOLN TAKE TWO TEASPOONSFUL BY MOUTH TWICE A DAY MICONAZOLE NITRATE 2% TOP PWDR USE TO AFFECTED AREA TOPICALLY TWICE A DAY FOR FUNGAL INFECTION/GROIN RASH MULTIVIT W/MINERALS, CAP/TAB TAKE 1 TABLET BY MOUTH EVERY DAY FOR FO LIC ACID AND IRON DEFICIENCY (REPLACES FERROUS SULFATE) NEEDLE,PEN 31G,8MM USE 1 NEEDLE, NEEDLE, PEN 31G 8MM TOPICALLY DIRECTED *DISPOSE OF IN A HARD-PLASTIC CONTAINER WITH A SCREW-ON LID CO NTACT GARBANICHOLAS SUTTON FOR PROPER DISPOSAL TO USE WITH GLARGINE OXYCODONE 5MG/ACETAMINOPHEN 325MG TAB TAKE 2 TABLETS BY MOUTH THREE TIMES A DAY FOR S EVERE FOOT PAIN OXYMETAZOLINE 0.05% SOLN,SPRAY,NASAL 1 SPRAY EACH NOSTRIL NEEDED (Non-VA Medication) PAD,ABDOMINAL 7.5 X 8 STERILE USE PAD TOPICALLY DIRECTED POTASSIUM CHLORIDE 20MEQ/PKT ORAL PWD TAKE 1 PACKET BY MOUTH EVERY DAY --TAKE WITH WA FELICE-- PREDNISOLONE ACETATE 1% OPH SUSP INSTILL 1 DROP IN OPERATIVE EYE FOUR TI MES A DAY SHAKE WELL FOR POST-OP INFLAMMATION PREGABALIN 100MG ORAL CAP TAKE ONE CAPSULE BY MOUTH THREE TIMES A DAY FOR NERVE PAIN -REPLACES GABAPENTIN ROPINIROLE HCL 2MG SA TAB TAKE TWO TABLETS BY MOUTH EVERY DAY SEMAGLUTIDE 1MG/0.75ML INJ PEN 3ML INJECT 1MG UNDER THE SKIN EVERY WEEK SILVASORB GEL,TOP APPLY TO AFFECTED AREAS TOPICALLY ONCE DAILY FO R FOOT ULCER SODIUM CHLORIDE 5% OPH OINT APPLY THIN STRIP TO BOTH EYES AT BEDTIME SODIUM CHLORIDE 5% OPH SOLN INSTILL 1 DROP IN BOTH EYES FOUR TIMES A DAY SODIUM FLUORIDE 1.1% TOOTHPASTE BRUSH SMALL AMOUNT MOUTH EV MARGARITO MORNING AND AT BEDTIME ON TOOTHBRUSH, BRUSH FOR 2 MINUTES. SULFAMETHOXAZOLE 800/TRIMETH 160MG TAB TAKE 1 TABLET BY MOUTH TWICE A DAY TADALAFIL 20MG TAB TAKE ONE TABLET BY MOUTH AT BEDTIME TAKE AT MILLY ST 30 MINUTES BEFORE ANTICIPATED SEXUAL ACTIVITY. MAXIMUM 4 DOSES FO R 30-DAY SUPPLY TRIAMCINOLONE ACETONIDE 0.1% OINT APPLY MODERATE AMOUNT TWICE A DAY NEEDED FOR ITCHING AVOID FACE,GROIN & ARMPITS *FOR EXTERNAL USE ONLY VANICREAM TOP CREAM APPLY THIN LAYER TOPICALLY EVERY DAY FOR DRY SK IN APPLY TO FEET AND LEGS VASHE WOUND THERAPY TOP SOLN SATURATE GAUZE WITH SOLUTION AND USE DIRECTE D VITAMIN E 180MG (400UNIT) CAP TAKE ONE CAPSULE BY MOUTH EVERY DAY Medications Medications in the last 90 days ACCU-CHEK GUIDE (GLUCOSE) TEST STRIP USE 1 STRIP FOUR TIMES A DAY TO CHECK BLOOD SUG AR -USE WITHIN 3 MINUTES OF REMOVING FROM CONTAINER DOXYCYCLINE HYCLATE 100MG TAB TAKE ONE TABLET BY MOUTH TWICE A DAY FOR WOUND INFECTION GAUZE,PACKING PLAIN 1/2IN X 5YD USE PACKING GAUZE DIRECTED GLOVE LATEX X-LARGE PWDR-FREE NONSTERILE USE GLOVE(S) DIRECTED TAPE,[employer]PORE H SOFT 4IN X 10YD 3M#[id number] CUT AND APPLY TAPE DIRECTED TRAZODONE HCL 50MG TAB TAKE ONE TABLET BY MOUTH AT BEDTIME NEEDED F OR SLEEP Discontinued Medications Medications discontinued in the last 90 days ACETAMINOPHEN 500MG TAB TAKE ONE TABLET BY MOUTH EV MARGARITO 6 HOURS NEEDED FOR PAIN*NOT TO EXCEED 4000MG IN 24 HOURS FROM ALL SOURCES* ALBUTEROL 90MCG (CFC-F) 200D ORAL INHL INHALE 2 PUFFS BY INHALATION FOUR TIMES A DAY A S NEEDED FOR IMMEDIATE RELIEF OF SHORTNESS OF BREATH *SHAKE WELL* ALPROSTADIL 500MCG URETHRAL SUPP INSERT 1 SUPPOSITORY INTRAURETHRAL NEEDED FO R ERECTILE DYSFUNCTION- MAX USE OF 3 TIMES PER WEEK WITH AT LEAST 24 HOURS BETWEEN EACH USE. CITALOPRAM HYDROBROMIDE 20MG TAB TAKE ONE TABLET BY MOUTH EVERY DAY FOR DEPRESSI ON CLOTRIMAZOLE 1% TOP CREAM APPLY TO AFFECTED AREA TOPICALLY TWICE A DAY NEEDED EXTERNAL USE ONLY FOR FUNGAL INFECTIONS CODEINE 10/GG 100MG/5ML (ALC-F/SF) LIQ TAKE 5 ML TO 10 ML BY MOUTH THREE TIMES A DAY A S NEEDED FOR COUGH DRESS,MEPILEX BORDER FLEX 4X4IN #[id number] APPLY 1 DRESSING DRESSING,MEPILEX BORDER 4X4IN #[id number] TOPICALLY DIRECTED DRESS,MEPILEX BORDER FLEX 4X4IN #[id number] APPLY 1 DRESSING TOPICALLY DIRECTED FERROUS SULFATE 325MG TAB TAKE ONE TABLET BY MOUTH EVERY DAY FOR ANEMIA ( IRON) GABAPENTIN 400MG CAP TAKE TWO CAPSULES BY MOUTH THREE TIMES A DAY FO R NEUROPATHY GAUZE,PACKING PLAIN 1/2IN X 5YD USE PACKING GAUZE DIRECTED HYDROCORTISONE 2.5% CREAM APPLY THIN LAVER TO ANKLE TOPICALLY THREE TIMES A DAY NEEDED FOR ITCHING IBUPROFEN 800MG TAB TAKE ONE TABLET BY MOUTH TH REE TIMES A DAY NEEDED FOR SEVERE ARTHRITIS PAIN *TAKE WITH FOOD LOSARTAN 50MG TAB TAKE ONE-HALF TABLET BY MOUTH EVERY DAY FOR HIG H BLOOD PRESSURE MELATONIN 3MG CAP/TAB TAKE 2 TABLETS BY MOUTH AT BEDTIME FOR SLEEP METFORMIN HCL 1000MG TAB TAKE ONE TABLET BY MOUTH TWO TIMES A DA Y BEFORE MORNING AND EVENING MEALS *OK TO CRUSH* OXYCODONE 5MG/ACETAMINOPHEN 325MG TAB TAKE 2 TABLETS BY MOUTH THREE TIMES A DAY FOR S EVERE FOOT PAIN OXYCODONE 5MG/ACETAMINOPHEN 325MG TAB TAKE 2 TABLETS BY MOUTH TWICE A DAY NEEDED F OR SEVERE FOOT PAIN -DO NOT EXCEED 4000MG OF ACETAMINOPHEN IN 24 HOURS FROM ALL SOURCES PREGABALIN 100MG ORAL CAP TAKE ONE CAPSULE BY MOUTH A T BEDTIME FOR 5 DAYS, THEN TAKE ONE CAPSULE TWICE A DAY FOR 5 DAYS, THEN TAKE ONE CAPSULE THREE NOMI ES A DAY FOR NERVE PAIN -REPLACES GABAPENTIN ROPINIROLE HCL 2MG TAB TAKE ONE TABLET BY MOUTH TW ICE A DAY FOR RESTLESS LEG (NOTE DOSE REDUCTION PER PHARMACY RECOMMENDATION) /vinicio/ CARLY AKHTAR MD Chief Resident/MABEL/Vito Signed: 03/01/2021 11:00 Mar 01, 2021 10:59 EMERGENCY DEPT EDUCATION NOTE: ZAYRA AKHTAR [facility] TITLE: EMERGENCY DEPT DISCHARGE [facility] [place] TITLE: EMERGENCY DEPT EDUCATION NOTE DATE OF NOTE: MAR 01, 2021@10:59:58 ENTRY DATE: MAR 01, 2021@10:59:58 AUTHOR: CARLY AKHTAR EXP COSIGNER: URGENCY: STATUS: COMPLETED DISCHARGE INSTRUCTIONS IMPORTANT: We examined and treated you today on an emergency basis only. This was not a substitute for, or an effort t o provide, comprehensive medical care. In most cases, you must let your healthcare provider check you again. Tell your healthcare provider about any new or las ting problems. We cannot recognize and treat all injuries or illnesses in one Emergency Department visit. After you leave, you should follow the instructions below. You were treated today by Carly Akhtar DO. Special Information This Information Is About Your Follow Up Care We recommend that you follow up with your [facility] Care Team to have an appointment within the next 1 week. Call [phone] to arrange this appointment. If you are not feeling better and i mproving as discussed or if you have any questions please contact your [facility] Care Provider. Future Appointments 03/02/2021 at 2:00pm [facility] OT MÓNICA 03/03/2021 at 1:00pm [facility] WOUND VASC ROSSI 03/08/2021 at 1:00pm [facility] CARE-PODIATRY 03/09/2021 at 10:45am [facility] EYE RESIDENT FOL/UP 03/09/2021 at 11:30am [facility] PACT 4E PHARM BLUE 03/28/2021 at 2:00pm [facility] CHF FLOREA 3D 06/22/2021 at 1:30pm [facility] POD NURSE CL 09/07/2021 at 1:00pm [facility] POD NURSE CL 09/19/2021 at 10:30am [facility] UROL RTC DARY 12/12/2021 at 1:00pm [facility] POD NURSE CL 03/08/2022 at 1:00pm [facility] POD ANNUAL EXAM This Information Is About Your Illness and Diagn osis CELLULITIS Cellulitis is an infection of the skin and the t issues just under the skin. Cellulitis is not contagious. This means it isn' t spread from one person to another. If cellulitis isn't treated, it can bec ome a very serious infection that spreads through the whole body. What causes cellulitis? Cellulitis is caused by bact eria (germs). Usually the skin is a good barrier to keep germs from getting into our bodies, but if there is a break in the skin, even a tiny one, bacteria ca n get in and cause an infection. Sometimes there is no known break in the skin when cellulitis devel ops, but some of the common injuries to the skin leading to cellulitis inclu de: -animal or human bites -bug bites -trauma (cuts, scrapes, puncture wounds) -intravenous catheters (IVs) -pins used to fix broken bones Who is at higher risk to get cellulitis? People who: -are very young (infants) or very old -have diabetes -have poor circulation -have leg ulcers -are taking medications that suppress the immun e system -are taking steroid medications -have decreased lymph drainage after certain ki nds of surgery -have recently had surgery or dental work What are the signs and symptoms of cellulitis? -redness and swelling of the skin -pain at the area that is infected -warmth of the area that is infected -fever and chills -feeling generally sick -swollen glands -a red streak going from the area of cellulitis toward the heart How does the health care provider know I have ce llulitis? -by examining you and talking with you -by doing blood tests to check white blood cell count and to check for infection in the blood How will my cellulitis be treated? -If the cellulitis is mild, you may be treated at home. -If the cellulitis is severe, you may need to b e in the hospital. -You will be given antibiotics, either by mouth or in an IV. -You may receive medications for pain. -The area that is infected will be raised on pi llows, if possible. -You will need to rest in bed. Please follow these instructions: -Keep taking your antibiotics until they are go ne, even if you feel better. -Keep all follow-up appointments. -Rest until your cellulitis is healed. -Keep the area raised on pillows as much as pos sible. -Cleanse the area gently with soap and water on ce a day unless your health care provider has given you other instructions. -Be aware that the infected area will be more p konrad to get infected again in the future. See your health care provider right away if you notice any sign of cellulitis coming back after your cellulitis is gone. Contact your health care provider as soon as pos sible if you have any of the following: -increased pain. -spreading of the redness or swelling. -the area begins to blister. -there is no improvement after taking antibioti cs for 2 or more days. -fever or chills. -red streaks (or longer red streaks) from the c ellulitis going toward your heart. -any questions or concerns. IMPORTANT MEDICATION INFORMATION -Your medication list includes any medications that were recently prescribed but not filled by the Pharmacy (PENDING CYPHERin es). -Included are any known ACTIVE Medicines. Scout wilson review this list to make sure it is accurate, if this list does not matc h the current medications you are taking please follow-up with your Primary C are Team to have your Medication List reviewed. Pending Medications CEPHALEXIN 500MG CAP \ Sig: TAKE ONE CAPSULE BY MOUTH FOUR TIMES A D AY Active Medications ACCU-CHEK GUIDE (GLUCOSE) TEST STRIP USE 1 STRIP TOPICALLY TWICE A DAY TO CHECK BLOO D SUGAR--USE WITHIN 3 MINUTES OF REMOVING FROM CONTAINER TEST AT DIFFERENT TIMES OF THE DAY OR DIRECTED ACETAMINOPHEN 500MG TAB TAKE ONE TABLET BY MOUTH EV MARGARITO 6 HOURS NEEDED FOR PAIN*NOT TO EXCEED 4000MG IN 24 HOURS FROM ALL SOURCES* ALBUTEROL 90MCG (CFC-F) 200D ORAL INHL INHALE 2 PUFFS BY INHALATION FOUR TIMES A DAY A S NEEDED FOR IMMEDIATE RELIEF OF SHORTNESS OF BREATH *SHAKE WELL* ALCOHOL PREP PAD USE 1 PAD TOPICALLY DIRECTED ALOE VESTA PROTECTIVE TOP OINT APPLY TO LEFT HEEL AND RIGHT FOOT TOPICALLY Sun, SUNDAY AND SUNDAY INSTRUCTED FOR DRESSING CHANGES AMOXICILLIN 875/CLAV K 125MG TAB TAKE 1 TABLET BY MOUTH TWICE A DAY ARTIFICIAL SALIVA (BIOTENE MOUTH) SPRAY SPRAY 1-2 SPRAYS IN MOUTH EVERY HOUR NEEDED FOR DRY MOUTH ARTIFICIAL TEARS POLYVINYL ALCOHOL INSTILL 1 DROP IN BOTH EYES THREE TIMES A DAY A S NEEDED FOR DRY EYES ATORVASTATIN CALCIUM 80MG TAB TAKE ONE TABLET BY MOUTH AT BEDTIME FOR CHOLEST JUANA AND HEART DISEASE BUMETANIDE 1MG TAB TAKE ONE TABLET BY MOUTH TWICE A DAY FOR FLUID RETENTION BUPROPION HCL 150MG 24HR SA TAB TAKE ONE TABLET BY MOUTH EVERY DAY CARBOXYMETHYLCELLULOSE NA 0.5% OPH SOLN INSTILL 1 DROP IN BOTH EYES FOUR TIMES A DAY FO R DRY EYES CLEANSER,WOUND SKINTEGRITY TOP SPRAY SPRAY TO LEFT HEEL AND RIGHT FOOT SUNDAY, AND SUNDAY INSTRUCTED FOR DRESSING CHANGES CODEINE 10/GG 100MG/5ML (ALC-F/SF) LIQ TAKE 5 ML TO 10 ML BY MOUTH THREE TIMES A DAY A S NEEDED FOR COUGH CYANOCOBALAMIN 1000MCG TAB TAKE TWO TABLETS BY MOUTH EVERY WEEK FOR VITAMI N B12 SUPPLEMENT DICLOFENAC NA 1% TOP GEL APPLY 4 GRAMS TO KNEE FOUR TIMES A DAY NEEDE D FOR PAIN -USE DOSE CARD IN BOX TO MEASURE DOSE -MAXIMUM OF 32 GM PER DAY DOXYCYCLINE HYCLATE 100MG TAB TAKE ONE TABLET BY MOUTH TWICE A DAY DRESS,MEPILEX BORDER FLEX 4X4IN #169787 APPLY DRESSING DIRECTED DRESSING,RESTORE,CA ALGIN 12IN H#[id number] APPLY DRESSING DIRECTED EMPAGLIFLOZIN 25MG TAB TAKE ONE-HALF TABLET BY MOUTH EVERY MORNING FOR DIABETES ERGOCALCIF 1,250MCG (D2-50,000UNIT) CAP TAKE ONE CAPSULE BY MOUTH EVERY MONTH FLUTICASONE PROP 50MCG 120D NASAL INHL SPRAY 1 PUFF EACH NOSTRIL IN EACH NOSTRIL TWICE A DAY FOR NASAL USE GAUZE PAD 4IN X 4IN 8-PLY NONSTERILE USE GAUZE SPONGE TOPICALLY DIRECTED GLIPIZIDE 10MG TAB TAKE ONE TABLET BY MOUTH TWICE A DAY TAKE 30 MINUTES BEFORE MEAL FOR DIABETES HYDROCORTISONE 2.5% CREAM APPLY THIN LAVER TO ANKLE TOPICALLY THREE TIMES A DAY NEEDED FOR ITCHING INSULIN,GLARGINE 100 UNT/ML 3ML SOLOSTAR INJECT 8 UNITS UNDER THE SKIN AT BEDTIME FOR DI ABETES DISPENSE WITH SOLSTAR PEN LANCET,SOFTCLIX USE 1 LANCET TOPICALLY DIRECTED *DISPOSE OF IN A HARD-PLASTIC CONTAINER WITH A SCREW-ON LIDCONTACT GARBAGE LESLEY FOR PROPER DISPOSAL LATANOPROST 0.005% OPH SOLN INSTILL 1 DROP IN LEFT EYE AT BEDTIME FOR GLAUC JOSIAH REFRIGERATE BOTTLE UNTIL OPENED. LIDOCAINE 4% TOP CREAM APPLY MODERATE AMOUNT THREE TIMES A DAY NEED ED FOR PAIN CREAM LIDOCAINE 5% PATCH APPLY 1 PATCH EVERY DAY FOR BACK PAIN -WEAR FOR ONLY 12 HOURS AND THEN REMOVE AND LEAVE OFF FOR 12 HOURS METFORMIN HCL 500MG/5ML ORAL SOLN TAKE TWO TEASPOONSFUL BY MOUTH TWICE A DAY MICONAZOLE NITRATE 2% TOP PWDR USE TO AFFECTED AREA TOPICALLY TWICE A DAY FOR FUNGAL INFECTION/GROIN RASH MULTIVIT W/MINERALS, CAP/TAB TAKE 1 TABLET BY MOUTH EVERY DAY FOR FO LIC ACID AND IRON DEFICIENCY (REPLACES FERROUS SULFATE) NEEDLE,PEN 31G,8MM USE 1 NEEDLE, NEEDLE, PEN 31G 8MM TOPICALLY DIRECTED *DISPOSE OF IN A HARD-PLASTIC CONTAINER WITH A SCREW-ON LID CO NTACT GARBAGE [place] FOR PROPER DISPOSAL TO USE WITH GLARGINE OXYCODONE 5MG/ACETAMINOPHEN 325MG TAB TAKE 2 TABLETS BY MOUTH THREE TIMES A DAY FOR S EVERE FOOT PAIN OXYMETAZOLINE 0.05% SOLN,SPRAY,NASAL 1 SPRAY EACH NOSTRIL NEEDED (Non-VA Medication) PAD,ABDOMINAL 7.5 X 8 STERILE USE PAD TOPICALLY DIRECTED POTASSIUM CHLORIDE 20MEQ/PKT ORAL PWD TAKE 1 PACKET BY MOUTH EVERY DAY --TAKE WITH WA TER-- PREDNISOLONE ACETATE 1% OPH SUSP INSTILL 1 DROP IN OPERATIVE EYE FOUR TI MES A DAY SHAKE WELL FOR POST-OP INFLAMMATION PREGABALIN 100MG ORAL CAP TAKE ONE CAPSULE BY MOUTH THREE TIMES A DAY FOR NERVE PAIN -REPLACES GABAPENTIN ROPINIROLE HCL 2MG SA TAB TAKE TWO TABLETS BY MOUTH EVERY DAY SEMAGLUTIDE 1MG/0.75ML INJ PEN 3ML INJECT 1MG UNDER THE SKIN EVERY WEEK SILVASORB GEL,TOP APPLY TO AFFECTED AREAS TOPICALLY ONCE DAILY FO R FOOT ULCER SODIUM CHLORIDE 5% OPH OINT APPLY THIN STRIP TO BOTH EYES AT BEDTIME SODIUM CHLORIDE 5% OPH SOLN INSTILL 1 DROP IN BOTH EYES FOUR TIMES A DAY SODIUM FLUORIDE 1.1% TOOTHPASTE BRUSH SMALL AMOUNT MOUTH EV MARGARITO MORNING AND AT BEDTIME ON TOOTHBRUSH, BRUSH FOR 2 MINUTES. SULFAMETHOXAZOLE 800/TRIMETH 160MG TAB TAKE 1 TABLET BY MOUTH TWICE A DAY TADALAFIL 20MG TAB TAKE ONE TABLET BY MOUTH AT BEDTIME TAKE AT [facility]ILLY ST 30 MINUTES BEFORE ANTICIPATED SEXUAL ACTIVITY. MAXIMUM 4 DOSES FO R 30-DAY SUPPLY TRIAMCINOLONE ACETONIDE 0.1% OINT APPLY MODERATE AMOUNT TWICE A DAY NEEDED FOR ITCHING AVOID FACE,GROIN & ARMPITS *FOR EXTERNAL USE ONLY VANICREAM TOP CREAM APPLY THIN LAYER TOPICALLY EVERY DAY FOR DRY SK IN APPLY TO FEET AND LEGS VASHE WOUND THERAPY TOP SOLN SATURATE GAUZE WITH SOLUTION AND USE DIRECTE D VITAMIN E 180MG (400UNIT) CAP TAKE ONE CAPSULE BY MOUTH EVERY DAY Medications Medications in the last 90 days ACCU-CHEK GUIDE (GLUCOSE) TEST STRIP USE 1 STRIP FOUR TIMES A DAY TO CHECK BLOOD SUG AR -USE WITHIN 3 MINUTES OF REMOVING FROM CONTAINER DOXYCYCLINE HYCLATE 100MG TAB TAKE ONE TABLET BY MOUTH TWICE A DAY FOR WOUND INFECTION GAUZE,PACKING PLAIN 1/2IN X 5YD USE PACKING GAUZE DIRECTED GLOVE LATEX X-LARGE PWDR-FREE NONSTERILE USE GLOVE(S) DIRECTED TAPE,MEDIPORE H SOFT 4IN X 10YD 3M#[id number] CUT AND APPLY TAPE DIRECTED TRAZODONE HCL 50MG TAB TAKE ONE TABLET BY MOUTH AT BEDTIME NEEDED F OR SLEEP Discontinued Medications Medications discontinued in the last 90 days ACETAMINOPHEN 500MG TAB TAKE ONE TABLET BY MOUTH EV MARGARITO 6 HOURS NEEDED FOR PAIN*NOT TO EXCEED 4000MG IN 24 HOURS FROM ALL SOURCES* ALBUTEROL 90MCG (CFC-F) 200D ORAL INHL INHALE 2 PUFFS BY INHALATION FOUR TIMES A DAY A S NEEDED FOR IMMEDIATE RELIEF OF SHORTNESS OF BREATH *SHAKE WELL* ALPROSTADIL 500MCG URETHRAL SUPP INSERT 1 SUPPOSITORY INTRAURETHRAL NEEDED FO R ERECTILE DYSFUNCTION- MAX USE OF 3 TIMES PER WEEK WITH AT LEAST 24 HOURS BETWEEN EACH USE. CITALOPRAM HYDROBROMIDE 20MG TAB TAKE ONE TABLET BY MOUTH EVERY DAY FOR DEPRESSI ON CLOTRIMAZOLE 1% TOP CREAM APPLY TO AFFECTED AREA TOPICALLY TWICE A DAY NEEDED EXTERNAL USE ONLY FOR FUNGAL INFECTIONS CODEINE 10/GG 100MG/5ML (ALC-F/SF) LIQ TAKE 5 ML TO 10 ML BY MOUTH THREE TIMES A DAY A S NEEDED FOR COUGH DRESS,MEPILEX BORDER FLEX 4X4IN #[id number] APPLY 1 DRESSING DRESSING,MEPILEX BORDER 4X4IN #[id number] TOPICALLY DIRECTED DRESS,MEPILEX BORDER FLEX 4X4IN #[id number] APPLY 1 DRESSING TOPICALLY DIRECTED FERROUS SULFATE 325MG TAB TAKE ONE TABLET BY MOUTH EVERY DAY FOR ANEMIA ( IRON) GABAPENTIN 400MG CAP TAKE TWO CAPSULES BY MOUTH THREE TIMES A DAY FO R NEUROPATHY GAUZE,PACKING PLAIN 1/2IN X 5YD USE PACKING GAUZE DIRECTED HYDROCORTISONE 2.5% CREAM APPLY THIN LAVER TO ANKLE TOPICALLY THREE TIMES A DAY NEEDED FOR ITCHING IBUPROFEN 800MG TAB TAKE ONE TABLET BY MOUTH TH REE TIMES A DAY NEEDED FOR SEVERE ARTHRITIS PAIN *TAKE WITH FOOD LOSARTAN 50MG TAB TAKE ONE-HALF TABLET BY MOUTH EVERY DAY FOR HIG H BLOOD PRESSURE MELATONIN 3MG CAP/TAB TAKE 2 TABLETS BY MOUTH AT BEDTIME FOR SLEEP METFORMIN HCL 1000MG TAB TAKE ONE TABLET BY MOUTH TWO TIMES A DA Y BEFORE MORNING AND EVENING MEALS *OK TO CRUSH* OXYCODONE 5MG/ACETAMINOPHEN 325MG TAB TAKE 2 TABLETS BY MOUTH THREE TIMES A DAY FOR S EVERE FOOT PAIN OXYCODONE 5MG/ACETAMINOPHEN 325MG TAB TAKE 2 TABLETS BY MOUTH TWICE A DAY NEEDED F OR SEVERE FOOT PAIN -DO NOT EXCEED 4000MG OF ACETAMINOPHEN IN 24 HOURS FROM ALL SOURCES PREGABALIN 100MG ORAL CAP TAKE ONE CAPSULE BY MOUTH A T BEDTIME FOR 5 DAYS, THEN TAKE ONE CAPSULE TWICE A DAY FOR 5 DAYS, THEN TAKE ONE CAPSULE THREE NOMI ES A DAY FOR NERVE PAIN -REPLACES GABAPENTIN ROPINIROLE HCL 2MG TAB TAKE ONE TABLET BY MOUTH TW ICE A DAY FOR RESTLESS LEG (NOTE DOSE REDUCTION PER PHARMACY RECOMMENDATION) YOU ARE THE MOST IMPORTANT FACTOR IN YOUR RECOVE RY. Follow the above instructions carefully. Take your medicines as p rescribed. If you do not understand any of your medicines, please ask que stions. If you have any outstanding tests from the emergency department, please contact your provider to review them in the next 3-5 day s. If you have new symptoms, feel worse, or are not getting better as discussed, call to discuss your health quest ions and arrange for follow-up care, or return to the Emergency Room IF YOU ARE EXPERIENCING A MEDICAL EMERGENCY CALL 911 OR GO TO THE NEAREST EMERGENCY ROOM /vinicio/ CARLY AKHTAR MD Chief Resident/MABEL/Vito Signed: 03/01/2021 10:59 Mar 01, 2021 09:12 PHYSICIAN EMERGENCY DEPT NOTE: ZAYRA AKHTAR [facility] TITLE: EMERGENCY DEPT NOTE JADIEL STANDARD TITLE: PHYSICIAN EMERGENCY DEPT NOTE DATE OF NOTE: MAR 01, 2021@09:12 ENTRY DATE: MAR 01, 2021@09:12:53 AUTHOR: CARLY AKHTAR EXP COSIGNER: URGENCY: STATUS: COMPLETED EMERGENCY DEPT NOTE Has ADDENDA Personal Protective Equipment (PPE): /PA/DONATO u sed PPE during every encounter with the patient Nurse's note reviewed. Chief Complaint: The patient is a 75 y/o MALE c omplaining of: Red toe/foot TDAP/TD Immunizations Immunization Series Date Facility Reaction Info TDAP 07/30/2014 [facility] Covid-19 Immunizations Immunization Series Date Facility Reaction Info COVID-19 (PFIZER), MRNA, LNP-S, P* 1 03/16/2020 [place]> COVID-19 (PFIZER), MRNA, LNP-S, P* 1 04/09/2020 [place] <[facility]> COVID-19 (PFIZER), MRNA, LNP-S, P* 3 12/02/2020 [place] <C> <C> See the Detailed Immunizations [facility] Summary Component[DIM] for Comments History of present illness: Mr. Mojica is a 75M with a h/o T2DM c/b osteo myelitis, neuropathy, and Charcot arthropathy, peripheral vascular diseas e, and PE. He is here with a red left lower extremity. He was seen b y podiatry in January who removed the left 2nd toenail and dressed it. There were no signs of infection at the time. He was seen in clinic 02/23 and there was c oncern for cellulitis, therefore he was placed on both doxycycline and TMP-SMX. Mr. Mojica is concerned that it is not improving. Allergies: RIVAROXABAN (Jul 25, 2017) Past Medical History: Active problems - Computerized Problem List is the source for the followin. Osteoarthritis - C-spine; [...] h/o venous pump use 17. Heart failure Family History: Not applicable Medications: Active Outpatient Medications (excluding Suppli es): Outpatient Medications Status 1) ACCU-CHEK GUIDE (GLUCOSE) TEST STRIP USE 1 S TRIP ACTIVE TOPICALLY TWICE A DAY TO CHECK BLOOD SUGAR--USE WITHIN 3 MINUTES OF REMOVING FROM CONTAINER T EST AT DIFFERENT TIMES OF THE DAY OR DIRECTED 2) ACETAMINOPHEN 500MG TAB TAKE ONE TABLET BY M OUTH ACTIVE EVERY 6 HOURS NEEDED FOR PAIN*NOT TO EXCEED 4000MG IN 24 HOURS FROM ALL SOURCES* 3) ALBUTEROL 90MCG (CFC-F) 200D ORAL INHL INHAL E 2 PUFFS ACTIVE BY INHALATION FOUR TIMES A DAY NEEDED FOR IMMEDIATE RELIEF OF SHORTNESS OF BREATH *SHAKE WELL* 4) ALOE VESTA PROTECTIVE TOP OINT APPLY TO LEFT HEEL AND ACTIVE RIGHT FOOT TOPICALLY SUNDAY, SUNDAY AND AY INSTRUCTED FOR DRESSING CHANGES 5) AMOXICILLIN 875/CLAV K 125MG TAB TAKE 1 TABL ET BY ACTIVE MOUTH TWICE A DAY 6) ARTIFICIAL SALIVA (BIOTENE MOUTH) SPRAY SPRA Y 1-2 ACTIVE SPRAYS IN MOUTH EVERY HOUR NEEDED FOR DRY MO UTH 7) ARTIFICIAL TEARS POLYVINYL ALCOHOL INSTILL 1 DROP IN ACTIVE BOTH EYES THREE TIMES A DAY NEEDED FOR DRY E YES 8) ASPIRIN 81MG EC TAB TAKE ONE TABLET BY MOUTH EVERY ACTIVE (S) DAY TO PREVENT HEART ATTACK DO NOT CHEW 9) ATORVASTATIN CALCIUM 80MG TAB TAKE ONE TABLE T BY ACTIVE MOUTH AT BEDTIME FOR CHOLESTEROL AND HEART DISE ASE 10) BUMETANIDE 1MG TAB TAKE ONE TABLET BY MOUTH TWICE A ACTIVE DAY FOR FLUID RETENTION 11) BUPROPION HCL 150MG 24HR SA TAB TAKE ONE TA BLET BY ACTIVE MOUTH EVERY DAY 12) CARBOXYMETHYLCELLULOSE NA 0.5% OPH SOLN INS TILL 1 ACTIVE DROP IN BOTH EYES FOUR TIMES A DAY FOR DRY EYES 13) CLEANSER,WOUND SKINTEGRITY TOP SPRAY SPRAY TO LEFT ACTIVE HEEL AND RIGHT [...] 1% TOP GEL APPLY 4 GRAMS TO K NEE FOUR ACTIVE TIMES A DAY NEEDED FOR PAIN -USE DOSE CARD I N BOX TO MEASURE DOSE -MAXIMUM OF 32 GM PER DAY 17) DOXYCYCLINE HYCLATE 100MG TAB TAKE ONE TABL ET BY ACTIVE MOUTH TWICE A DAY 18) EMPAGLIFLOZIN 25MG TAB TAKE ONE-HALF TABLET BY MOUTH ACTIVE EVERY MORNING FOR DIABETES 19) ERGOCALCIF 1,250MCG (D2-50,000UNIT) CAP TERESA E ONE ACTIVE CAPSULE BY MOUTH EVERY MONTH 20) FLUTICASONE PROP 50MCG 120D NASAL INHL SPRA Y 1 PUFF ACTIVE EACH NOSTRIL IN EACH NOSTRIL TWICE A DAY FOR NASAL USE 21) GLIPIZIDE 10MG TAB TAKE ONE TABLET BY MOUTH TWICE A ACTIVE DAY TAKE 30 MINUTES BEFORE MEAL FOR DIABETE S 22) HYDROCORTISONE 2.5% CREAM APPLY THIN LAVER TO ANKLE ACTIVE TOPICALLY THREE TIMES A DAY NEEDED FOR ITCHI NG 23) INSULIN,GLARGINE 100 UNT/ML 3ML SOLOSTAR IN JECT 8 ACTIVE UNITS UNDER THE SKIN AT BEDTIME FOR DIABETES DISPENSE WITH SOLSTAR PEN 24) LATANOPROST 0.005% OPH SOLN INSTILL 1 DROP IN LEFT ACTIVE EYE AT BEDTIME FOR GLAUCOMA REFRIGERATE BOTTLE UNTIL OPENED. 25) LIDOCAINE 4% TOP CREAM APPLY MODERATE AMOUN T THREE ACTIVE TIMES A DAY NEEDED FOR PAIN CREAM 26) LIDOCAINE 5% PATCH APPLY 1 PATCH EVERY DAY FOR ACTIVE BACK PAIN -WEAR FOR ONLY 12 HOURS AND THEN DIANA VE AND LEAVE OFF FOR 12 HOURS 27) LOSARTAN 50MG TAB TAKE ONE-HALF TABLET BY M OUTH EVERY ACTIVE (S) DAY FOR HIGH BLOOD PRESSURE 28) METFORMIN HCL 500MG/5ML ORAL SOLN TAKE TWO ACTIVE TEASPOONSFUL BY MOUTH TWICE A DAY 29) MICONAZOLE NITRATE 2% TOP PWDR USE TO AFFEC CARLO AREA ACTIVE TOPICALLY TWICE A DAY FOR FUNGAL INFECTION/GROI N RASH 30) MULTIVIT W/MINERALS, CAP/TAB TAKE 1 TABLET BY ACTIVE MOUTH EVERY DAY FOR FOLIC ACID AND IRON DEFICIE NCY (REPLACES FERROUS SULFATE) 31) OXYCODONE 5MG/ACETAMINOPHEN 325MG TAB TAKE 2 TABLETS ACTIVE BY MOUTH THREE TIMES A DAY FOR SEVERE FOOT PAIN 32) POTASSIUM CHLORIDE 20MEQ/PKT ORAL PWD TAKE 1 PACKET ACTIVE BY MOUTH EVERY DAY --TAKE WITH WATER-- 33) PREDNISOLONE ACETATE 1% OPH SUSP INSTILL 1 DROP IN ACTIVE OPERATIVE EYE FOUR TIMES A DAY SHAKE WELL FOR POST-OP INFLAMMATION 34) PREGABALIN 100MG ORAL CAP TAKE ONE CAPSULE BY MOUTH ACTIVE THREE TIMES A DAY FOR NERVE PAIN -REPLACES GABAPENTIN 35) PROPRANOLOL HCL 80MG TAB TAKE ONE TABLET BY MOUTH ACTIVE (S) TWICE A DAY FOR HAND TREMOR 36) ROPINIROLE HCL 2MG SA TAB TAKE TWO TABLETS BY MOUTH ACTIVE EVERY DAY 37) SEMAGLUTIDE 1MG/0.75ML INJ PEN 3ML INJECT 1 MG UNDER ACTIVE THE SKIN EVERY WEEK 38) SILVASORB GEL,TOP APPLY TO AFFECTED AREAS T OPICALLY ACTIVE ONCE DAILY FOR FOOT ULCER 39) SODIUM CHLORIDE 5% OPH OINT APPLY THIN STRI P TO BOTH ACTIVE EYES AT BEDTIME 40) SODIUM CHLORIDE 5% OPH SOLN INSTILL 1 DROP IN BOTH ACTIVE EYES FOUR TIMES A DAY 41) SODIUM FLUORIDE 1.1% TOOTHPASTE BRUSH SMALL AMOUNT ACTIVE MOUTH EVERY MORNING AND AT BEDTIME ON TOOTHBRUS H, BRUSH FOR 2 MINUTES. 42) SULFAMETHOXAZOLE 800/TRIMETH 160MG TAB TAKE 1 TABLET ACTIVE BY MOUTH TWICE A DAY 43) TADALAFIL 20MG TAB TAKE ONE TABLET BY MOUTH AT ACTIVE BEDTIME TAKE AT LEAST 30 MINUTES BEFORE ANTICIP ATED SEXUAL ACTIVITY. MAXIMUM 4 DOSES FOR 30-DAY SUP PLY 44) TRIAMCINOLONE ACETONIDE 0.1% OINT APPLY MOD ERATE ACTIVE AMOUNT TWICE A DAY NEEDED FOR ITCHING AVOI D FACE,GROIN & ARMPITS *FOR EXTERNAL USE ONLY 45) VANICREAM TOP CREAM APPLY THIN LAYER TOPICA LLY EVERY ACTIVE DAY FOR DRY SKIN APPLY TO FEET AND LEGS 46) VASHE WOUND THERAPY TOP SOLN SATURATE GAUZE WITH ACTIVE SOLUTION AND USE DIRECTED 47) VITAMIN E 180MG (400UNIT) CAP TAKE ONE CAPS ULE BY ACTIVE MOUTH EVERY DAY Non-VA Medications Status 1) Non-VA OXYMETAZOLINE HCL 0.05% NASAL SPRAY 1 SPRAY ACTIVE EACH NOSTRIL NEEDED 48 Total Medications Physical Exam: BP: 146/75 (03/01/2021 09:04) P: 68 (03/01/2021 09:04) R: 18 (03/01/2021 09:04) T: 97.7 F [36.5 C] (03/01/2021 09:04) O2 Sats: PULSE OXIMETRY General: well developed, well nourished, NAD, o bese Skin: See extremity exam Eye: Anicteric, Atraumatic Cardiovascular: RRR, HS I+II+ESM heard througho ut precordium grade III- IV/, radial pulses bilateral and symmetric Respiratory: Lungs - clear to auscultation bila terally Abdominal: soft,NT,ND Neuro: alert and oriented, grossly non-focal Extremities: Both legs with mild swelling, however left limb much more swollen, warmer, erythematous. Pain over deep veins ED Course/Medical Decision Making/Assessment: Differential includes DVT, i nfection that is resistant to doxy/TMP-SMX, not yet enough time on antibiotics. Given returning for problem, reasonable to obta in CBC and CRP to consider likelihood ratio of infection versus non-infect ious cause. Will also obtain ultrasound to consider DVT. While this is deemed less likely, he has a h/o PE and has not responded to recent treatment of ce llultiis/infection. Diagnosis and Plan: - CBC, CRP - US LLE for DVT - F/up wound care clinic Will update as necessary Disposition: Likely home /es/ CARLY AKHTAR MD Chief Resident/MOD/Moonlighter Signed: 03/01/2021 09:27 03/01/2021 ADDENDUM STATUS: COMPLETED US negative for DVT WBC not elevated. Not tachycardic. No signs SIRS . CRP 9, slight elevation, but less than expected for cellulitis (although perhaps lower given refcent abx) Will try a course of cephalexin since non-respon sive to doxy/TMP-SMX; if does not resolve, would consider alternative diagnosi s. No indication at this point for admission; does not need IV abx at this juncture. Pt to f/up with PCP to review leg. /es/ CARLY AKHTAR MD Chief Resident/MABEL/Vito Signed: 03/01/2021 10:58 Mar 01, 2021 09:02 NURSING EMERGENCY DEPT TRIAGE NOTE: [facility] LOCAL TITLE: EMERGENCY DEPARTMENT NURSING TRIAG E NOTE STANDARD TITLE: NURSING EMERGENCY DEPT TRIAGE NO TE DATE OF NOTE: MAR 01, 2021@09:02 ENTRY DATE: MAR 01, 2021@09:02:24 AUTHOR: RAJEEV GRADY EXP COSIGNER: URGENCY: STATUS: COMPLETED Emergency Department/Urgent Care Center Triage Patient age:75 Sex: MALE On arrival patient was: WHEELCHAIR Patient phone number: Allergies: RIVAROXABAN (Jul 25, 2017) Subjective/Chief Complaint: c/o no change in redness and swelling to left foot/leg with taking antibiotics. Redness/swelling present x 1 week. Objective: Alert. The patient is not a fall risk. Vital Signs * Temperature 97.7 F (36.5 C) Pulse 68 Respirations 18 Blood Pressure 146/75 Pain scale recorded: 6 Pulse Oximetry 97 Room Air Emergency Severity Index (CAROLINE) level Level 3 Current Medications: Active Outpatient Medications (including Supplie s): Active Outpatient Medications Status 1) ACCU-CHEK GUIDE (GLUCOSE) TEST STRIP USE 1 ST RIP ACTIVE TOPICALLY TWICE A DAY TO CHECK BLOOD SUGAR--USE WITHIN 3 MINUTES OF REMOVING FROM CONTAINER T EST AT DIFFERENT TIMES OF THE DAY OR DIRECTED 2) ACETAMINOPHEN 500MG TAB TAKE ONE TABLET BY [facility] ACTIVE EVERY 6 HOURS NEEDED FOR [...] A DAY 19) DRESS,MEPILEX BORDER FLEX 4X4IN #[id number] APPL Y ACTIVE DRESSING DIRECTED 20) DRESSING,RESTORE,CA ALGIN 12IN H#[id number] APPL Y ACTIVE DRESSING DIRECTED 21) EMPAGLIFLOZIN [...] SCREW-ON LIDCONTACT GARBAGE HAULER FOR PROPER DISPOSAL 29) LATANOPROST 0.005% OPH [...] HAULER FOR PROPER DISPOSAL TO USE WITH GLARGI [...] ACTIVE EACH NOSTRIL NEEDED 55 Total Medications Current Problems: Osteoarthritis ([facility] [id number]) Obstructive sleep apnea ([facility] [id number]) Gastroesophageal reflux disease (SCT 235Restless legs syndrome ([facility] [id number]) Nephrolithiasis ([facility] [id number]) Depression ([facility] [id number]) Coronary artery disease ([facility] 73205305) Diabetes mellitus ([facility] [id number]) Headache ([facility] 03765636) Pulmonary thromboembolis m ([facility] 446239344) Essential tremor ([facility] 188199731) Hemoptysis ([facility] 72117469) Aortic valve stenosis ([facility] 65751101) Oculomotor nerve palsy ([facility] 561368449) Charcot's joint of foot ([facility] 748258453) Peripher al vascular disease ([facility] 925674690) Heart failure ([facility] 95794129) Coronavirus Disease 2019 (COVID-19) Screen The patient was asked if in the last 14 days the y have had new onset of any COVID-19 symptoms. They report the following: No symptoms Within the past 14 days, the patient reports no exposure to someone with a febrile/respiratory illness or someone with a kn own or suspected case of COVID-19 (within 6 feet for > 15 minutes). Result: Screen is negative. Result: Screen is negative. Suicide Screen: [place] Suicide Severity Rating Scale (C-SSRS) screener 1. Over the past month, have you wished you wer e or wished you could go to sleep and not wake up? No 2. Over the past month, have you had an y actual thoughts of killing yourself? No 3. Over the past month, have you been thinking about how you might do this? Response not required due to responses to other questions. 4. Over the past month, have you had th ellen thoughts and had some intention of acting on them? Response not required due to responses to other questions. 5. Over the past month, have you started to wor k out or worked out the details of how to kill yourself? Response not required due to responses to other questions. 6. If yes, at any time in the past month did yo u intend to carry out this plan? Response not required due to responses to other questions. 7. In your lifetime, have you ever done anythin g, started to do anything, or prepared to do anything to end your life (for e xample, collected pills, obtained a gun, gave away valuables, went to e roof but didn't jump)? No 8. If YES, was this within the past 3 months? Response not required due to responses to other questions. /vinicio/ RAJEEV GRADY RN RN Signed: 03/01/2021 09:05
--- OUTSIDE RECORDS SUMMARY | 2021-12-23 16:46 | XMS_ITS | Encounter Summary ---
:1945 Author Organization [facility] Address [address] [place] [address] Support Name Relationship Address Phone FRANCES GANDARA Unavailable [address] [place] [address] FRANCES GANDARA Unavailable [address] [place] [address] FRANCES GANDARA Unavailable [address] [place] [address] FRANCES GANDARA Unavailable [address] [place] [address] Insurance Providers: All historical and current Section [...] MEDICARE MEDICARE PART Apr 19, PART A [id number] Whit MOJICA (WNR) (M) A 2007 50A [phone] JESSICA MEDICARE MEDICARE PART Apr 19, PART A [id number] Whit MOJICA (WNR) (M) A 2007 [id number] [phone] JESSICA Selected Encounter This section includes the information on record at [place] for the Encounter. Date/Time Encounter Type Encounter Description Reason Provider Source Mar 01, 2021 08:43 Outpatient Encounter CLINICAL PHARMACY AM IHE Encounter Template Text not used by [place] Plan of Treatment: Future Appointments (+ 6 [...] 20 appointments. The data comes from all [facility]. Appointment Date/Time Appointment Type Appointment Facili ty Name Mar 02, 2021 02:00 PM AMBULATORY - REHAB MEDICINE [facility] Mar 03, 2021 01:00 PM AMBULATORY - SURGERY [facility] Mar 08, 2021 01:00 PM AMBULATORY - NONE [facility] Mar 09, 2021 10:45 AM AMBULATORY - SURGERY [facility] Mar 09, 2021 11:30 AM AMBULATORY - NONE [facility] Mar 10, 2021 10:45 AM AMBULATORY - NONE [facility] Mar 17, 2021 11:30 AM AMBULATORY - NONE [facility] Mar 22, 2021 02:30 PM AMBULATORY - NONE [facility] Mar 23, 2021 07:00 AM AMBULATORY - NONE [facility] Mar 28, 2021 02:00 PM AMBULATORY - MEDICINE [facility] Mar 31, 2021 07:00 AM AMBULATORY - NONE [facility] Mar 31, 2021 02:00 PM AMBULATORY - REHAB MEDICINE [facility] Apr 07, 2021 01:00 PM AMBULATORY - SURGERY [facility] Apr 15, 2021 01:20 PM AMBULATORY - SURGERY [facility] Apr 25, 2021 11:00 AM AMBULATORY - MEDICINE [facility] Apr 28, 2021 09:00 AM AMBULATORY - NONE [facility] Apr 28, 2021 09:45 AM AMBULATORY - NONE [facility] Apr 28, 2021 10:00 AM AMBULATORY - MEDICINE [facility] May 10, 2021 03:20 PM AMBULATORY - NONE [facility] May 11, 2021 11:45 AM AMBULATORY - MEDICINE [facility] Active, Pending, and Scheduled Orders This section includes a listing of several types of active, pending, and scheduled orders, including clinic medications orders, diagnostic test orders, procedure orders and consult orders; where the start date of the order is 45 days before the date of the Encounter or 45 days after the date of the Encounter. The data comes from all [facility]. Test Date/Time Test Type Test Details Facility Name Jan 25, 2021 06:15 Laboratory - COVID-19 DIAGNOSTIC PANEL [facility] AM Chemistry Order (CEPHEID) NASOPHARYNGEAL SWAB WC ONCE Lab Results: +/- 30 days of the encounter This section includes the Chemistry and Hematology Lab Results on record with MI for the patient. Radiology Reports and Pathology Reports are provided separately, in subsequent sections.Lab Results This section contains the Chemistry/Hematology Results that were resulted 30 days before or 30 daysafter the date of the Encounter. Date/Time Source Result Type Result - Unit Interpretation Reference Range Comment Mar 01, 2021 09:31 [facility] EXTRA MINT TUBE Specimen Type: PLASMA AM No comment enter ed. Ordering Provid er: AMARJIT OWEN Report Released Date/Time: Mar 01, 2021 09:31 AM Reporting Lab: [facility] [address] [facility] [address] Performing Lab: [facility] [address] [facility] [address] EXTRA MINT TUBE RECEIVED Mar 01, 2021 09:31 [facility] C-REACTIVE PROTEIN Specim en Type: SERUM AM No comment enter ed. Ordering Provid er: AMARJIT OWEN Report Released Date/Time: Mar 01, 2021 09:12 AM Reporting Lab: [facility] [address] [facility] [address] Performing Lab: [facility] [address] [facility] [address] C-REACTIVE PROTEIN 9.22 H <5.00 Mar 01, 2021 09:31 AM [facility] CBC & DIFF Specim en Type: BLOOD Comment: Automa carlo Differential Performed Ordering Provid er: AMARJIT OWEN Report Released Date/Time: Mar 01, 2021 09:12 AM Reporting Lab: [facility] [address] [facility] [address] Performing Lab: [facility] [address] [facility] [address] WBC 5.58 4.0-11.0 RBC 4.90 4.6-6.2 HGB [...] Mar 01, 2021 09:31 AM [facility] HEMOGLOBIN A1C Specim en Type: BLOOD No comment enter ed. Ordering Provid er: CARIDAD DENNIS Report Released Date/Time: Mar 01, 2021 04:01 PM Reporting Lab: [facility] [address] [facility] [address] Performing Lab: [facility] [address] [facility] [address] HEMOGLOBIN A1C 8.0 H 4.0-6.0 Vital Signs: All taken on the encounter date This section contains inpatient and outpatient Vital Signs collected on the date of the Encounter. Date/Time Temperature Pulse Blood Respiratory SP02 Pain Height Weight Joseph dy Source Pressure Rate Mass Index Mar 01, 97.7 F 68 146/75 18 /min 6 [place] 2021 09:04 /min mm[Hg] IS [facility] Social History: Smoking Status (Most current) and Tobacco Use (All prior to encounter date) This section includes the most current, and the historical, smoking and tobacco-related health factors from the [place] facility where the Encounter took place.Current Smoking Status This section includes the most current smoking, or tobacco-related health factor, from the [place] facility where the Encounter took place. Date/Time Current Smoking Status Comment Facility July 09, 2020 02:00 PM VA-TOBACCO FORMER USER [facility] Tobacco Use History This section includes a history of the smoking, or tobacco- related health factors, that were collected on or before the date of the Encounter. The data comes from the [place] facility where the Encounter took place. Date/Time Smoking Status/Tobacco Use Comment [facility] July 09, 2020 02:00 PM VA-TOBACCO QUIT 15 YRS OR MORE [facility] Apr 17, 2019 02:39 PM INPT NO TOBACCO USE IN LAST 30 DAYS [facility] Feb 04, 2019 10:37 AM VA-TOBACCO NEVER USED [facility] Oct 15, 2018 02:43 PM INPT NO TOBACCO USE IN LAST 30 DAYS [facility] Oct 13, 2018 11:30 PM INPT NO TOBACCO USE IN LAST 30 DAYS [facility] Sep 02, 2018 05:50 PM INPT NO TOBACCO USE IN LAST 30 DAYS [facility] Aug 12, 2018 07:28 PM INPT NO TOBACCO USE IN LAST 30 DAYS [facility] Jan 30, 2018 03:28 PM VA-TOBACCO FORMER USER [facility] Jan 30, 2018 03:28 PM VA-TOBACCO QUIT 15 YRS OR MORE [facility] May 29, 2017 04:53 PM INPT NO TOBACCO USE IN LAST 30 DAYS [facility] Apr 25, 2017 10:44 PM INPT NO TOBACCO USE IN LAST 30 DAYS [facility] Jan 01, 2017 06:40 PM INPT NO TOBACCO USE IN LAST 30 DAYS [facility] Dec 21, 2016 02:43 PM FORMER TOBACCO USER 7Y OR GREATER [facility] Sep 24, 2013 08:52 AM FORMER TOBACCO USER 7Y OR GREATER [facility] Advance Directives: All historical and current Section Date Range: From patient's date of to the date document was created. This section includes ALL of a patient's completed or amended [place] Advance and Rescinded Directives. The entries below indicate that a directive exists for the patient, but an actual copy is not included with this document. The data comes from all [facility]. Date Advance Directives Provider Source May 29, 2017 CLINICAL WARNING CORNELIO FREITASI Tasha [facility] May 16, 2017 ADVANCE DIRECTIVE SERENITY BUENROSTRO [facility] May 16, 2017 ADVANCE DIRECTIVE DISCUSSION SERENITY BUENROSTRO [place] [facility] May 04, 2017 CLINICAL WARNING MAGO DIAMOND [facility] May 04, 2017 CLINICAL WARNING GAEL ROSARIO [facility] Apr 26, 2017 CLINICAL WARNING JENNIFER DE LEON [facility] Jan 01, 2017 CLINICAL WARNING AYDE WELLS [facility] Jun 09, 2004 ADVANCE DIRECTIVE DARYL VILLARREAL [facility] Jun 07, 2004 ADVANCE DIRECTIVE SHEYRL HOLLOWAY [facility] Radiology Reports: +/- 30 days of [...] the Encounter. The data comes from all [place] treatment facilities. Date/Time Radiology Report Provider Source Mar 01, 2021 09:44 AM US LOWER EXTREMITY VEIN (UNILATERAL) ( P): XIAO HUGGINS [facility] JESSICA MOJICA [id number] [birth year] M Exm Date: MAR 01, 2021@09:44 Req Phys: ALMASAUGUSTOTreyAMARJIT JADIEL Pat Loc: [facility] DEPT WALK-IN (Re Img Loc: Ultrasound Imaging Service: Unknown (Case [id number] COMPLETE) US EXTREMITY VEINS UNILAT (U S Detailed) CPT:44999 Proc Modifiers : LEFT Reason for Study: [...] pager listed below: User placing orders pager: [phone] LAST CREATININE 0.6 L (12/15/20) Report Status: Verified Date Reported: MAR 01, 2021 Date Verified: MAR 01, 2021 Beauty Parlor [employer]er E-Sig:/ES/XIAO HUGGINS MD Report: Duplex Ultrasound of [...] Primary Interpreting Staff: XIAO HUGGINS MD, RADIOLOGIST (Beauty Parlor [employer]er) Primary Interpreting Resident: JANNET JOSEPH, SOX ANALYST /[facility] Encounter Notes: All associated encounter notes This section contains the clinical notes associated to the Encounter. Date/Time Encounter Note(s) Provider Source Mar 01, 2021 11:08 PHARMACY EDUCATION NOTE: ZORAIDA CM [facility] TITLE: EDUCATION PHARMACY MED INSTRUCTION /RECONCILIATION STANDARD TITLE: PHARMACY EDUCATION NOTE DATE OF NOTE: MAR 01, 2021@11:08 ENTRY DATE: MAR 01, 2021@11:08:33 AUTHOR: ZORAIDA CM EXP COSIGNER: URGENCY: STATUS: COMPLETED MEDICATION DISCHARGE EDUCATION LEARNING NEEDS/OBJECTIVES Participant(s) indicates readiness to learn and has been instructed on indications, side effects, direct ions for use and given a list of medications. Participant(s) will receiv e medication information sheets for medications filled. Education included discussion of the following: New medication(s): cephalexin Active Outpatient Medications (including Supplie s): Outpatient Medications Status 1) ACCU-CHEK GUIDE (GLUCOSE) TEST STRIP USE 1 ST RIP ACTIVE TOPICALLY TWICE A DAY TO CHECK BLOOD SUGAR--USE WITHIN 3 MINUTES OF REMOVING FROM CONTAINER T EST AT DIFFERENT TIMES OF THE DAY OR DIRECTED 2) ACETAMINOPHEN 500MG TAB TAKE ONE TABLET BY [facility] ACTIVE EVERY 6 HOURS [...] TIMES A DAY FOR DRY EYES 14) CEPHALEXIN 500MG CAP TAKE ONE CAPSULE BY FOUR ACTIVE TIMES A DAY 15) CLEANSER,WOUND SKINTEGRITY TOP SPRAY SPRAY T O LEFT ACTIVE HEEL AND RIGHT FOOT SUNDAY, SUNDAY AND Y INSTRUCTED FOR DRESSING CHANGES 16) CODEINE 10/GG 100MG/5ML (ALC-F/SF) LIQ TAKE 5 ML TO ACTIVE 10 ML BY MOUTH THREE TIMES A DAY NEEDED FOR COUGH 17) CYANOCOBALAMIN 1000MCG TAB TAKE TWO TABLETS BY MOUTH ACTIVE EVERY WEEK FOR VITAMIN B12 SUPPLEMENT 18) DICLOFENAC NA 1% TOP GEL APPLY 4 GRAMS TO KN EE FOUR ACTIVE TIMES A DAY NEEDED FOR PAIN -USE DOSE CARD I N BOX TO MEASURE DOSE -MAXIMUM OF 32 GM PER DAY 19) DOXYCYCLINE HYCLATE 100MG TAB TAKE ONE TABLE T BY ACTIVE MOUTH TWICE A DAY 20) DRESS,MEPILEX BORDER FLEX 4X4IN #[id number] APPL Y ACTIVE DRESSING DIRECTED 21) DRESSING,RESTORE,CA ALGIN 12IN H#[id number] APPL Y ACTIVE DRESSING DIRECTED 22) EMPAGLIFLOZIN 25MG TAB TAKE ONE-HALF TABLET BY MOUTH ACTIVE EVERY MORNING FOR DIABETES 23) ERGOCALCIF 1,250MCG (D2-50,000UNIT) CAP TAKE ONE ACTIVE CAPSULE BY MOUTH EVERY MONTH 24) FLUTICASONE PROP 50MCG 120D NASAL INHL SPRAY 1 PUFF ACTIVE EACH NOSTRIL IN EACH NOSTRIL TWICE A DAY FOR NASAL USE 25) GAUZE PAD 4IN X 4IN 8-PLY NONSTERILE USE GAU ZE SPONGE ACTIVE TOPICALLY DIRECTED 26) GLIPIZIDE 10MG TAB TAKE ONE TABLET BY MOUTH TWICE A ACTIVE DAY TAKE 30 MINUTES BEFORE MEAL FOR DIABETE S 27) HYDROCORTISONE 2.5% CREAM APPLY THIN LAVER T O ANKLE ACTIVE TOPICALLY THREE TIMES A DAY NEEDED FOR ITCHI NG 28) INSULIN,GLARGINE 100 UNT/ML 3ML SOLOSTAR INJ ECT 8 ACTIVE UNITS UNDER THE SKIN AT BEDTIME FOR DIABETES DISPENSE WITH SOLSTAR PEN 29) LANCET,SOFTCLIX USE 1 LANCET TOPICALLY DI RECTED ACTIVE *DISPOSE OF IN A HARD-PLASTIC CONTAINER WITH A SCREW-ON LIDCONTACT GARBAGE HAULER FOR PROPER DISPOSAL 30) LATANOPROST 0.005% OPH SOLN INSTILL 1 DROP I N LEFT ACTIVE EYE AT BEDTIME FOR GLAUCOMA REFRIGERATE BOTTLE UNTIL OPENED. 31) LIDOCAINE 4% TOP CREAM APPLY MODERATE AMOUNT THREE ACTIVE TIMES A DAY NEEDED FOR PAIN CREAM 32) LIDOCAINE 5% PATCH APPLY 1 PATCH EVERY DAY F OR ACTIVE BACK PAIN -WEAR FOR ONLY 12 HOURS AND THEN DIANA VE AND LEAVE OFF FOR 12 HOURS 33) LOSARTAN 50MG TAB TAKE ONE-HALF TABLET BY MO UTH EVERY ACTIVE (S) DAY FOR HIGH BLOOD PRESSURE 34) METFORMIN HCL 500MG/5ML ORAL SOLN TAKE TWO A CTIVE TEASPOONSFUL BY MOUTH TWICE A DAY 35) MICONAZOLE NITRATE 2% TOP PWDR USE TO AFFECT ED AREA ACTIVE TOPICALLY TWICE A DAY FOR FUNGAL INFECTION/GROI N RASH 36) MULTIVIT W/MINERALS, CAP/TAB TAKE 1 TABLET BY ACTIVE MOUTH EVERY DAY FOR FOLIC ACID AND IRON DEFICIE NCY (REPLACES FERROUS SULFATE) 37) NEEDLE,PEN 31G,8MM USE 1 NEEDLE, NEEDLE, PEN 31G 8MM ACTIVE TOPICALLY DIRECTED *DISPOSE OF IN A HARD-ZARIA STIC CONTAINER WITH A SCREW-ON LID CONTACT GARBAGE HAULER FOR PROPER DISPOSAL TO USE WITH GLARGI NE 38) OXYCODONE 5MG/ACETAMINOPHEN 325MG TAB TAKE 2 TABLETS ACTIVE BY MOUTH THREE TIMES A DAY FOR SEVERE FOOT PAIN 39) PAD,ABDOMINAL 7.5 X 8 STERILE USE PAD TOPICA LLY ACTIVE DIRECTED 40) POTASSIUM CHLORIDE 20MEQ/PKT ORAL PWD TAKE 1 PACKET ACTIVE BY MOUTH EVERY DAY --TAKE WITH WATER-- 41) PREDNISOLONE ACETATE 1% OPH SUSP INSTILL 1 D ROP IN ACTIVE OPERATIVE EYE FOUR TIMES A DAY SHAKE WELL FOR POST-OP INFLAMMATION 42) PREGABALIN 100MG ORAL CAP TAKE ONE CAPSULE B Y MOUTH ACTIVE THREE TIMES A DAY FOR NERVE PAIN -REPLACES GABAPENTIN 43) PROPRANOLOL HCL 80MG TAB TAKE ONE TABLET BY MOUTH ACTIVE (S) TWICE A DAY FOR HAND TREMOR 44) ROPINIROLE HCL 2MG SA TAB TAKE TWO TABLETS B Y MOUTH ACTIVE EVERY DAY 45) SEMAGLUTIDE 1MG/0.75ML INJ PEN 3ML INJECT 1M G UNDER ACTIVE THE SKIN EVERY WEEK 46) SILVASORB GEL,TOP APPLY TO AFFECTED AREAS TO PICALLY ACTIVE ONCE DAILY FOR FOOT ULCER 47) SODIUM CHLORIDE 5% OPH OINT APPLY THIN STRIP TO BOTH ACTIVE EYES AT BEDTIME 48) SODIUM CHLORIDE 5% OPH SOLN INSTILL 1 DROP I N BOTH ACTIVE EYES FOUR TIMES A DAY 49) SODIUM FLUORIDE 1.1% TOOTHPASTE BRUSH SMALL AMOUNT ACTIVE MOUTH EVERY MORNING AND AT BEDTIME ON TOOTHBRUS H, BRUSH FOR 2 MINUTES. 50) SULFAMETHOXAZOLE 800/TRIMETH 160MG TAB TAKE 1 TABLET ACTIVE BY MOUTH TWICE A DAY 51) TADALAFIL 20MG TAB TAKE ONE TABLET BY MOUTH AT ACTIVE BEDTIME TAKE AT LEAST 30 MINUTES BEFORE ANTICIP ATED SEXUAL ACTIVITY. MAXIMUM 4 DOSES FOR 30-DAY SUP PLY 52) TRIAMCINOLONE ACETONIDE 0.1% OINT APPLY MODE RATE ACTIVE AMOUNT TWICE A DAY NEEDED FOR ITCHING AVOI D FACE,GROIN & ARMPITS *FOR EXTERNAL USE ONLY 53) VANICREAM TOP CREAM APPLY THIN LAYER TOPICAL LY EVERY ACTIVE DAY FOR DRY SKIN APPLY TO FEET AND LEGS 54) VASHE WOUND THERAPY TOP SOLN SATURATE GAUZE WITH ACTIVE SOLUTION AND USE DIRECTED 55) VITAMIN E 180MG (400UNIT) CAP TAKE ONE CAPSU LE BY ACTIVE MOUTH EVERY DAY Non-VA Medications Status 1) Non-VA OXYMETAZOLINE HCL 0.05% NASAL SPRAY 1 SPRAY ACTIVE EACH NOSTRIL NEEDED 56 Total Medications PARTICIPANTS: Patient TEACHING STRATEGY: Face to Face READINESS TO LEARN No barriers identified PATIENT/FAMILY RESPONSE (OUTCOME): Verbalizes critical information about the topic /es/ ZORAIDA CM PHARMACIST Signed: 03/01/2021 11:09
--- OUTSIDE RECORDS SUMMARY | 2021-12-23 16:48 | XMS_ITS | Encounter Summary ---
:1945 Author Organization Department [facility] rs Address [address] [place] [address] Support Name Relationship Address Phone FRANCES GANDARA Unavailable [address] [place] [address] FRANCES GANDARA Unavailable [address] [place] [address] FRANCES GANDARA Unavailable [address] [place] [address] FRANCES GANDARA Unavailable [address] [place] [address] Insurance Providers: All historical and current Section Date Range: From patient's date of to the date document was created.This section includes the names of all active insurance providers for the patient. Insurance Type of Plan Start of End of Group Member Insurance Policy P vladislav's Provider Coverage Name Policy Policy Number ID Provider's Mathew's Relationship Coverage Coverage Telephone Name to Policy Number Mathew MEDICARE MEDICARE PART Apr 19, PART A [id number] Whit MOJICA (WNR) (M) A 2007 [id number] [phone] JESSICA MEDICARE MEDICARE PART Apr 19, PART A [id number] Whit [place] (WNR) (M) A 2007 [id number] [phone] JESSICA Selected Encounter This section includes the information on record at [place] for the Encounter. Date/Time Encounter Type Encounter Reason Provider Source Description Mar 01, 2021 01:00 Outpatient ADMIN [facility] AM Encounter (MASNONCT) IHE Encounter Template Text not used by [place] Plan of Treatment: Future Appointments (+ 6 [...] 20 appointments. The data comes from all [facility]. Appointment Date/Time Appointment Type Appointment Facili ty Name Mar 02, 2021 02:00 PM AMBULATORY - REHAB MEDICINE [facility] Mar 03, 2021 01:00 PM AMBULATORY - SURGERY [facility] Mar 08, 2021 01:00 PM AMBULATORY - NONE [facility] Mar 09, 2021 10:45 AM AMBULATORY - SURGERY [facility] Mar 09, 2021 11:30 AM AMBULATORY - NONE [facility] Mar 10, 2021 10:45 AM AMBULATORY - NONE [facility] Mar 17, 2021 11:30 AM AMBULATORY - NONE [facility] Mar 22, 2021 02:30 PM AMBULATORY - NONE [facility] Mar 23, 2021 07:00 AM AMBULATORY - NONE [facility] Mar 28, 2021 02:00 PM AMBULATORY - MEDICINE [facility] Mar 31, 2021 07:00 AM AMBULATORY - NONE [facility] Mar 31, 2021 02:00 PM AMBULATORY - REHAB MEDICINE [facility] Apr 07, 2021 01:00 PM AMBULATORY - SURGERY [facility] Apr 15, 2021 01:20 PM AMBULATORY - SURGERY [facility] Apr 25, 2021 11:00 AM AMBULATORY - MEDICINE [facility] Apr 28, 2021 09:00 AM AMBULATORY - NONE [facility] Apr 28, 2021 09:45 AM AMBULATORY - NONE [facility] Apr 28, 2021 10:00 AM AMBULATORY - MEDICINE [facility] May 10, 2021 03:20 PM AMBULATORY - NONE [facility] May 11, 2021 11:45 AM AMBULATORY - MEDICINE [facility] Active, Pending, and Scheduled Orders This section includes a listing of several types of active, pending, and scheduled orders, including clinic medications orders, diagnostic test orders, procedure orders and consult orders; where the start date of the order is 45 days before the date of the Encounter or 45 days after the date of the Encounter. The data comes from all [facility]. Test Date/Time Test Type Test Details Facility Name Jan 25, 2021 06:15 Laboratory - COVID-19 DIAGNOSTIC PANEL [facility] AM Chemistry Order (CEPHEID) NASOPHARYNGEAL SWAB WC ONCE Lab Results: +/- 30 days of the encounter This section includes the Chemistry and Hematology Lab Results on record with [place] for the patient. Radiology Reports and Pathology Reports are provided separately, in subsequent sections.Lab Results This section contains the Chemistry/Hematology Results that were resulted 30 days before or 30 daysafter the date of the Encounter. Date/Time Source Result Type Result - Unit Interpretation Reference Range Comment Mar 01, 2021 09:31 [facility] EXTRA MINT TUBE Specimen Type: PLASMA AM No comment enter ed. Ordering Provid er: AMARJIT OWEN Report Released Date/Time: Mar 01, 2021 09:31 AM Reporting Lab: [facility] [id number] Performing Lab: [facility] [id number] EXTRA MINT TUBE RECEIVED Mar 01, 2021 09:31 [facility] C-REACTIVE PROTEIN Specim en Type: SERUM AM No comment enter ed. Ordering Provid er: AMARJIT OWEN Report Released Date/Time: Mar 01, 2021 09:12 AM Reporting Lab: [facility] [id number] Performing Lab: [facility] [id number] C-REACTIVE PROTEIN 9.22 H <5.00 Mar 01, 2021 09:31 AM [facility] CBC & DIFF Specim en Type: BLOOD Comment: Automa sarthak Differential Performed Ordering Provid er: AMARJIT OWEN Report Released Date/Time: Mar 01, 2021 09:12 AM Reporting Lab: [facility] [id number] Performing Lab: [facility] [id number] WBC 5.58 4.0-11.0 RBC 4.90 4.6-6.2 HGB [...] 0.02 0-0.1 Mar 01, 2021 09:31 AM [facility] HEMOGLOBIN A1C Specim en Type: BLOOD No comment enter ed. Ordering Provid er: CARIDAD DENNIS Report Released Date/Time: Mar 01, 2021 04:01 PM Reporting Lab: [facility] [address] [id number] Performing Lab: [facility] [phone] HEMOGLOBIN A1C 8.0 H 4.0-6.0 Vital Signs: All taken on the encounter date This section contains inpatient and outpatient Vital Signs collected on the date of the Encounter. Date/Time Temperature Pulse Blood Respiratory SP02 Pain Height Weight Joseph dy Source Pressure Rate Mass Index Mar 01, 97.7 F 68 146/75 18 /min 6 [place] 2021 09:04 /min mm[Hg] IS [facility] Social History: Smoking Status (Most current) and Tobacco Use (All prior to encounter date) This section includes the most current, and the historical, smoking and tobacco-related health factors from the [place] facility where the Encounter took place.Current Smoking Status This section includes the most current smoking, or tobacco-related health factor, from the [place] facility where the Encounter took place. Date/Time Current Smoking Status Comment Facility July 09, 2020 02:00 PM VA-TOBACCO FORMER USER WILLY BUTLER [facility] Tobacco Use History This section includes a history of the smoking, or tobacco- related health factors, that were collected on or before the date of the Encounter. The data comes from the [place] facility where the Encounter took place. Date/Time Smoking Status/Tobacco Use Comment [facility] July 09, 2020 02:00 PM [place]-TOBACCO QUIT 15 YRS OR MORE [facility] Apr 17, 2019 02:39 PM INPT NO TOBACCO USE IN LAST 30 DAYS [facility] Feb 04, 2019 10:37 AM [place]-TO[place]AC[place] NEVER USED TROY BLANTON [facility] Oct 15, 2018 02:43 PM INPT NO TOBACCO USE IN LAST 30 DAYS [facility] Oct 13, 2018 11:30 PM INPT NO TOBACCO USE IN LAST 30 DAYS [facility] Sep 02, 2018 05:50 PM INPT NO TOBACCO USE IN LAST 30 DAYS [facility] Aug 12, 2018 07:28 PM INPT NO TOBACCO USE IN LAST 30 DAYS [facility] Jan 30, 2018 03:28 PM [facility] Jan 30, 2018 03:28 PM VA-TOBACCO QUIT 15 YRS OR MORE [facility] May 29, 2017 04:53 PM INPT NO TOBACCO USE IN LAST 30 DAYS [facility] Apr 25, 2017 10:44 PM INPT NO TOBACCO USE IN LAST 30 DAYS [facility] Jan 01, 2017 06:40 PM INPT NO TOBACCO USE IN LAST 30 DAYS [facility] Dec 21, 2016 02:43 PM FORMER TOBACCO USER 7Y OR GREATER [facility] Sep 24, 2013 08:52 AM FORMER TOBACCO USER 7Y OR GREATER [facility] Advance Directives: All historical and current Section Date Range: From patient's date of to the date document was created. This section includes ALL of a patient's completed or amended [place] Advance and Rescinded Directives. The entries below indicate that a directive exists for the patient, but an actual copy is not included with this document. The data comes from all [place] facilities. Date Advance Directives Provider Source May 29, 2017 CLINICAL WARNING CORNELIO FREITAS [facility] May 16, 2017 ADVANCE DIRECTIVE SERENITY BUENROSTRO [facility] May 16, 2017 ADVANCE DIRECTIVE DISCUSSION SERENITY BUENROSTRO [place] [facility] May 04, 2017 CLINICAL WARNING MAGO DIAMOND [facility] May 04, 2017 CLINICAL WARNING GAEL ROSARIO [facility] Apr 26, 2017 CLINICAL WARNING JENNIFER DE LEON [facility] Jan 01, 2017 CLINICAL WARNING AYDE WELLS [facility] Jun 09, 2004 ADVANCE DIRECTIVE DARYL VILLARREAL [facility] Jun 07, 2004 ADVANCE DIRECTIVE SHERYL HOLLOWAY [facility] Radiology Reports: +/- [...] the Encounter. The data comes from all [place] treatment facilities. Date/Time Radiology Report Provider Source Mar 01, 2021 09:44 AM US LOWER EXTREMITY VEIN (UNILATERAL) ( P): XIAO HUGGINS [facility] JESSICA MOJICA [id number] [phone] M Exm Date: MAR 01, 2021@09:44 Req Phys: AMARJIT OWEN Loc: [facility] WALK-IN (Re Img Loc: Ultrasound Imaging Service: Unknown (Case [id number] COMPLETE) US EXTREMITY VEINS UNILAT (U S Detailed) CPT:72451 Proc Modifiers : LEFT Reason for Study: please look for DVT Clinical History: [place] IS NOT under investigation for COVID-19 or is COVID-19 negative Swelling, erythema, tenderness incl along deep veins. NOt responsive to antibiotic course. Wells score fo r DVT = 5 Responsible provider name and phone number to n otify for critical findings if other than user placing the order a nd pager listed below: User placing orders pager: [phone] LAST CREATININE 0.6 L (12/15/20) Report Status: Verified Date Reported: MAR 01, 2021 Date Verified: MAR 01, 2021 [employer] E-Sig:/ES/XIAO HUGGINS MD Report: Duplex Ultrasound of [...] Primary Interpreting Staff: XIAO HUGGINS MD, RADIOLOGIST ([employer] Ware[employer] Selector) Primary Interpreting Resident: JANNET JOSEPH, HEAD ORTHOPEDIC TEAM PHYSICIAN /[facility] Encounter Notes: All associated encounter notes This section contains the clinical notes associated to the Encounter. Date/Time Encounter Note(s) Provider Source Mar 01, 2021 01:00 AM CRITICAL CARE UNIT NOTE: SETH ORTEGA [facility] LOCAL TITLE: [facility] RESPIRATORY THERAPY FLOWSHEET STANDARD TITLE: CRITICAL CARE UNIT NOTE DATE OF NOTE: MAR 01, 2021@01:00 ENTRY DATE: MAR 02, 2021@15:21:55 AUTHOR: SETH ORTEGA EXP COSIGNER: URGENCY: STATUS: COMPLETED This is a place mathew only. Please see VISTA Im aging to view document. /es/ [facility] ICU DOCUMENT IMPORT Signed: 03/02/2021 15:21
--- OUTSIDE RECORDS SUMMARY | 2021-12-23 16:50 | XMS_ITS | Encounter Summary ---
:1945 Author Organization Department [facility] rs Address [address] [place] [address] Support Name Relationship Address Phone FRANCES GANDARA Unavailable [address] [place] [address] FRANCES GANDARA Unavailable [address] [place] [address] FRANCES GANDARA Unavailable [address] [place] [address] FRANCES GANDARA Unavailable [address] [place] [address] Insurance Providers: All historical and current Section [...] MEDICARE MEDICARE PART Apr 19, PART A [id number] 800 Whit MOJICA (WNR) (M) A 2007 50A [phone] JESSICA MEDICARE MEDICARE PART Apr 19, PART A [id number] 800 Whit MOJICA (WNR) (M) A 2007 [id number] [phone] JESSICA Selected Encounter This section includes the information on record at [place] for the Encounter. Date/Time Encounter Type Encounter Reason Provider Source Description Mar 09, 2021 OFFICE O/P EST OPHTHALMOLOGY ICD-10-CM Z96.1 CHRISTIANA AREVALO 10:45 AM MOD 30-39 MIN Presence of intraocular lens with Provider Comments: Pseudophakia IHE Encounter Template Text not used by [facility] Assessments - Encounter Diagnoses This section includes the primary and secondary diagnoses documented for the Encounter. Date/Time Primary/Secondary Diagnosis Name Provider Source Diagnosis Mar 09, 2021 PRIMARY Presence of KAY WEBB V A 01:18 PM intraocular lens [facility] Mar 09, 2021 SECONDARY Anatomical narrow KAY WEBBAPO [facility] 01:18 PM angle, bilateral [facility] Plan of Treatment: Future Appointments (+ 6 months) and Future Tests (+/- 45 days) The Plan of Treatment section includes future care activities for the patient from all [place] treatmentfacilities. This section includes future appointments and future orders which are active, pending orscheduled.Future Appointments This section includes appointments that were scheduled to occur 6 months from the date of the Encounter, up to a maximum of 20 appointments. The data comes from all [place] treatment facilities. Appointment Date/Time Appointment Type Appointment Facili ty Name Mar 10, 2021 10:45 AM AMBULATORY - NONE [facility] Mar 17, 2021 11:30 AM AMBULATORY - NONE [facility] Mar 22, 2021 02:30 PM AMBULATORY - NONE [facility] Mar 23, 2021 07:00 AM AMBULATORY - NONE [facility] Mar 28, 2021 02:00 PM AMBULATORY - MEDICINE [facility] Mar 31, 2021 07:00 AM AMBULATORY - NONE [facility] Mar 31, 2021 02:00 PM AMBULATORY - REHAB MEDICINE [facility] Apr 07, 2021 01:00 PM AMBULATORY - SURGERY [facility] Apr 15, 2021 01:20 PM AMBULATORY - SURGERY [facility] Apr 25, 2021 11:00 AM AMBULATORY - MEDICINE [facility] Apr 28, 2021 09:00 AM AMBULATORY - NONE [facility] Apr 28, 2021 09:45 AM AMBULATORY - NONE [facility] Apr 28, 2021 10:00 AM AMBULATORY - MEDICINE [facility] May 10, 2021 03:20 PM AMBULATORY - NONE [facility] May 11, 2021 11:45 AM AMBULATORY - MEDICINE [facility] May 11, 2021 12:00 PM AMBULATORY - MEDICINE [facility] May 11, 2021 01:00 PM AMBULATORY - MEDICINE [facility] May 19, 2021 02:30 PM AMBULATORY - NONE [facility] May 19, 2021 04:00 PM AMBULATORY - MEDICINE [facility] May 20, 2021 09:00 AM AMBULATORY - NONE [facility] Active, Pending, and Scheduled Orders [...] data comes from all [place] treatment facilities. Test Date/Time Test Type Test Details Facility Name Jan 25, 2021 06:15 Laboratory - COVID-19 DIAGNOSTIC PANEL [facility] AM Chemistry Order (CEPHEID) NASOPHARYNGEAL SWAB [...] Reference Range Comment Mar 01, 2021 09:31 [facility] EXTRA MINT TUBE Specimen Type: PLASMA AM No comment enter ed. Ordering Provid er: AMARJIT OWEN Report Released Date/Time: Mar 01, 2021 09:31 AM Reporting Lab: [facility] [address] [facility] [address] Performing Lab: [facility] [address] [facility] [address] EXTRA MINT TUBE RECEIVED Mar 01, 2021 09:31 [facility] C-REACTIVE PROTEIN Specim en Type: SERUM AM No comment enter ed. Ordering Provid er: AMARJIT OWEN Report Released Date/Time: Mar 01, 2021 09:12 AM Reporting Lab: [facility] [address] [facility] [address] Performing Lab: [facility] [address] [facility] [address] C-REACTIVE PROTEIN 9.22 H <5.00 Mar 01, 2021 09:31 AM [facility] CBC & DIFF Specim en Type: BLOOD Comment: Automa sarthak Differential Performed Ordering Provid er: AMARJIT OWEN Report Released Date/Time: Mar 01, 2021 09:12 AM Reporting Lab: [facility] [address] [facility] [address] Performing Lab: [facility] [address] [facility] [address] WBC 5.58 4.0-11.0 RBC 4.90 4.6-6.2 HGB [...] 0.02 0-0.1 Mar 01, 2021 09:31 AM [facility] HEMOGLOBIN A1C Specim en Type: BLOOD No comment enter ed. Ordering Provid er: CARIDAD DENNIS Report Released Date/Time: Mar 01, 2021 04:01 PM Reporting Lab: [facility] [address] Performing Lab: [facility] [address] HEMOGLOBIN A1C 8.0 H 4.0-6.0 Social History: [...] 02:00 PM VA-TOBACCO FORMER USER [facility]Y BUTLER [facility] Tobacco Use History This section includes a history of the smoking, or tobacco- related health factors, that were collected on or before the date of the Encounter. The data comes from the [place] facility where the Encounter took place. Date/Time Smoking Status/Tobacco Use Comment [facility] July 09, 2020 02:00 PM [place]-TO[place] QU[place] 15 YRS OR MORE [facility] Apr 17, 2019 02:39 PM INPT NO TOBACCO USE IN LAST 30 DAYS [facility] Feb 04, 2019 10:37 AM [place]-TO[place] NEVER USED [facility]OY BLANTON [facility] Oct 15, 2018 02:43 PM INPT NO TOBACCO USE IN LAST 30 DAYS [facility] Oct 13, 2018 11:30 PM INPT NO TOBACCO USE IN LAST 30 DAYS [facility] Sep 02, 2018 05:50 PM INPT NO TOBACCO USE IN LAST 30 DAYS [facility] Aug 12, 2018 07:28 PM INPT NO TOBACCO USE IN LAST 30 DAYS [facility] Jan 30, 2018 03:28 PM [facility]BACCO [facility] Jan 30, 2018 03:28 PM VA-TOBACCO QUIT 15 YRS OR MORE [facility] May 29, 2017 04:53 PM INPT NO TOBACCO USE IN LAST 30 DAYS [facility] Apr 25, 2017 10:44 PM INPT NO TOBACCO USE IN LAST 30 DAYS [facility] Jan 01, 2017 06:40 PM INPT NO TOBACCO USE IN LAST 30 DAYS [facility] Dec 21, 2016 02:43 PM FORMER TOBACCO USER 7Y OR GREATER [facility] Sep 24, 2013 08:52 AM FORMER TOBACCO USER 7Y OR GREATER [facility] Advance Directives: All historical and [...] May 16, 2017 ADVANCE DIRECTIVE SERENITY BUENROSTRO [facility] May 16, 2017 ADVANCE DIRECTIVE DISCUSSION SERENITY BUENROSTRO [place] [facility] May 04, 2017 CLINICAL WARNING MAGO DIAMOND [facility] May 04, 2017 CLINICAL WARNING GAEL ROSARIO [facility] Apr 26, 2017 CLINICAL WARNING JENNIFER DE LEON [facility] Jan 01, 2017 CLINICAL WARNING AYDE WELLS [facility] Jun 09, 2004 ADVANCE DIRECTIVE DARYL VILLARREAL [facility] Jun 07, 2004 ADVANCE DIRECTIVE SHERYL HOLLOWAY [facility] Radiology Reports: +/- 30 days [...] EXTREMITY VEIN (UNILATERAL) ( P): XIAO HUGGINS [facility] JESSICA MOJICA [id number] [birth year] 8 M Exm Date: MAR 01, 2021@09:44 Req Phys: AMARJIT OWEN Loc: [facility] DEPT WALK-IN (Re Img Loc: Ultrasound Imaging Service: Unknown (Case [id number] COMPLETE) US EXTREMITY VEINS UNILAT (U S Detailed) CPT:72815 Proc Modifiers : LEFT Reason for Study: [...] pager listed below: User placing orders pager: [phone] LAST CREATININE 0.6 L (12/15/20) Report Status: Verified Date Reported: MAR 01, 2021 Date Verified: MAR 01, 2021 Precision Inspector E-Sig:/ES/XIAO HUGGINS MD Report: Duplex Ultrasound of [...] Primary Interpreting Staff: XIAO HUGGINS MD, RADIOLOGIST (Precision Inspector) Primary Interpreting Resident: JANNET JOSEPH, [facility] Encounter Notes: All associated encounter notes This section contains the clinical notes associated to the Encounter. Date/Time Encounter Note(s) Provider Source Mar 09, 2021 11:23 OPHTHALMOLOGY CONSULT: HERMES FELTON [facility] AM LOCAL TITLE: OPHTHALMOLOGY IMAGING [facility] OUTPT CO NSULT STANDARD TITLE: OPHTHALMOLOGY CONSULT DATE OF NOTE: MAR 09, 2021@11:23 ENTRY DATE: MAR 09, 2021@11:23:44 AUTHOR: HERMES FELTON EXP COSIGNER: URGENCY: STATUS: COMPLETED Requested test(s) done, OCT of maculae OU results uploaded to farmworker field crop for review. /vinicio/ CORONA LOPEZ CRA Computing Machine Operator Signed: 03/09/2021 11:24 Mar 09, 2021 11:23 OPHTHALMOLOGY ATTENDING NOTE: KAY WEBB [facility] AM LOCAL TITLE: OPHTHALMOLOGY CLINIC NOTE ADEN STANDARD TITLE: OPHTHALMOLOGY ATTENDING NOTE DATE OF NOTE: MAR 09, 2021@11:23 ENTRY DATE: MAR 09, 2021@11:23:16 AUTHOR: KAY WEBB [facility] EXP COSIGNER: URGENCY: STATUS: COMPLETED OPHTHALMOLOGY CLINIC NOTE Has ADDENDA HPI: S/p CEIOL OU (OD 07/12/2020; OS 08/03/2020). Patient reports near vision is still jorge y blurry, needs more magnification. He is using lubricating eyedrops only every other day. Not using any other drops. I have reviewed the office equipment technician's note and agree with their findings. Last refraction: Vision: OD:CC(with glasses) OD: 20/40 Pinhole: 20/NI Vision: OS:CC(with glasses) 0S: 20/40-2 Pinhole: 20/30-2 Intra-ocular pressure (IOP): OD: 8 OS: 9 iCare Slit Lamp Examination: L/L: dc, blepharitis C/S: white and quiet K: OD tr pee; OS 2+ central pee; diabetic stria e with tr folds OD AC: Deep and Quiet I: flat, round L: pcl OU Fundus Examination: vitreous: quiet optic nerve: tilted, pink, OD: 0.2 C/D; OS: 0.3 C/D macula: flat, OS blunted FLR, MA's and DBH infe riorly vessels: normal periphery: flat, OD: temporal pigmentary change , U-shaped, no flap/SRF/heme on 360 HR DIRECTOR, 2 quadrant DBH OU MAC OCT 02/2021 OD: hazy media, mild chorioretinal folds OS: Resolved subRPE fluid, good foveal contour, mild subfoveal EZ loss, mild chorioretinal folds Assessment: 1. S/p CEIOL OS c/b UES v. Pseudophakic CME -pre-op VA OS 20/40 -post-op VA OS 20/30 -OS: lens placed: 27.5 [id number] at 152 degrees -refractive expectation: Griffin -Today 20/40 OU with resolution of SRF/sub RPE fluid. Subfoveal residual IS/OS loss, continued mild chorioretinal folds. IOP 8/9. PLAN: - Restart PFAT QID OU - Hold off prednisolone and latanoprost - Patient happy with distance vision however co mplaining of poor ability to read. Pts glasses with bi focals not properly aligned. Re wrote Rx for reading only. If no improvement can send to [facility] mariano - RTC in 4 months VTD, MAC OCT 2. S/p CEIOL OD -pre-op VA = OD 20/30- -post-op VA = OD 20/40 -CEIOL OD 07/12/2020 (ZCB00 +27.0) -K edema with 1+ D folds despite PF taper prior -Pachy OD: 567 OS: 596 -Today with very tr D folds noted prior -OCT Macula wnl -Happy with distance vision - Cont PFAT's QID. Hold on Janine as may be more irritating 3. Dermatochalasis OU -s/p bleph by Dr. Sweeney 4. Diabetes mellitus with mild-mod NPDR -25 year history of DM2 -Mild-mod NPDR OU -Annual DFE 5. 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 Hx burned out GCA OD RTC: 4 months, VTD, MAC OCT Seen and discussed with Dr. Morris. Will CC Dr. Welch /vinicio/ KAY WEBB MD OPHTHALMOLOGY RESIDENT Signed: 03/09/2021 13:22 Receipt Acknowledged By: 03/17/2021 12:11 /vinicio/ JULIA WELCH MD STAFF CHRONIC CONDITION NURSE 03/17/2021 ADDENDUM STATUS: COMPLETED OCT OS shows good resolution of SRF. Vision may continue to slightly improve. Agree repeat mac OCT in a few months, keep only ATs. /vinicio/ JULIA WELCH MD STAFF CHRONIC CONDITION NURSE Signed: 03/17/2021 12:21 Receipt Acknowledged By: * AWAITING SIGNATURE * KAY WEBB Mar 09, 2021 10:58 EMERGENCY VEHICLE OPERATIONS INSTRUCTOR NOTE: Santos SULTANA [facility] LOCAL TITLE: EMERGENCY VEHICLE OPERATIONS INSTRUCTOR NOTE STANDARD TITLE: EMERGENCY VEHICLE OPERATIONS INSTRUCTOR NOTE DATE OF NOTE: MAR 09, 2021@10:58 ENTRY DATE: MAR 09, 2021@10:58:35 AUTHOR: MAX SULTANA EXP COSIGNER: URGENCY: STATUS: COMPLETED Eye Start Exam Patient: JESSICA MOJICA Sex: MALE Birthdate: [birth year] Chief complaint: Here for 2 month f/u for VTD/OCT Mac History of Present Illness: Patient states no improvement to vision--even wi th new glasses. He's still having cloudy vision and still can't read, even with new glasses. States his glasses are not getting dark enough. Also c/o OU watering/tearing a lot. Some photophobia. Denies any new floaters/no flashes OU. No pain/discomfort OU. Using: PF ATs every other day 1-2x OU (depending on ho w dry my eyes feel) Active problems - Computerized Problem List is [...] 03, 2020 Proc: CE IOL LEFT EYE JULY 12, 2020 Proc: CE IOL RIGHT SEP 11, 2018 Proc: Right Foot Wound Debridement, Bone Debridement,Bone Biopsy,Wound Vac Placement APR 26, 2017 Proc: CABG X4, MIRZA TO LAD Follow Up Exam Eye Medications PF ATs every other day 1-2x OU Allergies: RIVAROXABAN (Jul 25, 2017) No new Allergies. Last refraction: Vision: OD:CC(with glasses) OD: 20/40 Pinhole: 20/NI Vision: OS:CC(with glasses) 0S: -2 Pinhole: 30-2 Confrontational [place]: Full to finger counting: Right: Yes Left: Yes Extra Ocular Movement: Normal Pupils: Right: Round Left: Round Size: Right: 4 Left: 4 React to light: Right: Yes Left: Yes Afferent pupil defect: Right:No Grade: Left: No Grade: Intra-ocular pressure (IOP): OD: 8 OS: 9 iCare Dilation: mydriacyl 1% and neosynephrine OU Feb@11:11 /es/ [facility] Signed: 03/09/2021 11:12
--- OUTSIDE RECORDS SUMMARY | 2021-12-23 16:53 | XMS_ITS | Encounter Summary ---
:1945 Author Organization [facility] Address [address] [place] [address] Support Name Relationship Address Phone FRANCES GANDARA Unavailable [address] [place] [address] FRANCES GANDARA Unavailable [address] [place] [address] FRANCES GANDARA Unavailable [address] [place] [address] FRANCES GANDARA Unavailable [address] [place] [address] Insurance Providers: All historical and current Section [...] MEDICARE MEDICARE PART Apr 19, PART A [id number] YUNIORWhit (WNR) (M) A 2007 50A [phone] JESSICA MEDICARE MEDICARE PART Apr 19, PART A [id number] KAUSHALEDSONWhit ONOFRE (WNR) (M) A 2007 [id number] JESSICA Selected Encounter This section includes the [...] May 29, 2017 CLINICAL WARNING CORNELIO FREITAS [facility] May 16, 2017 ADVANCE DIRECTIVE SERENITY BUENROSTRO [facility] May 16, 2017 ADVANCE DIRECTIVE DISCUSSION SERENITY BUENROSTRO [place] [facility] May 04, 2017 CLINICAL WARNING MAGO DIAMOND [facility] May 04, 2017 CLINICAL WARN[address] GAEL ROSAROI [facility] Apr 26, 2017 CLINICAL WARNING JENNIFER DE LEON [facility] Jan 01, 2017 CLINICAL WARN[address] AYDE WELLS [facility] Jun 09, 2004 [address] [facility] Jun 07, 2004 ADVANCE DIRECTIVE SHERYL HOLLOWAY [facility]
--- OUTSIDE RECORDS SUMMARY | 2021-12-23 16:55 | XMS_ITS | Encounter Summary ---
:1945 Author Organization Department [facility] Address [address] [place] [id number] Support Name Relationship Address Phone FRANCES GANDARA Unavailable [address] [place] [address] FRANCES GANDARA Unavailable [address] [place] [address] FRANCES GANDARA Unavailable [address] [place] [address] FRANCES GANDARA Unavailable [address] [place] [address] Insurance Providers: All historical and current Section [...] MEDICARE MEDICARE PART Apr 19, PART A [id number] [place] (WNR) (M) A 2007 50A [phone] JESSICA MEDICARE MEDICARE PART Apr 19, PART A [id number] Whit [place] (WNR) (M) A 2007 [id number] [phone] JESSICA Selected Encounter This section includes the information on record at CT for the Encounter. Date/Time Encounter Type Encounter Reason Provider Source Description Mar 22, 2021 ORTHOTIC PROSTHETICS/ORTHOT ICD-10-CM REID HUTCHINS 02:30 PM MGMT&TRAING 1ST ICS Z86.31 S J ENC Personal history of diabetic foot ulcer with Provider Comments: Personal History of Diabetic Foot Ulcer IHE Encounter Template Text not used by [facility] Assessments - Encounter Diagnoses This section includes the primary and secondary diagnoses documented for the Encounter. Date/Time Primary/Secondary Diagnosis Name Provider Source Diagnosis Mar 25, 2021 PRIMARY Personal REID HUTCHINS 06:09 AM history of S [facility] diabetic foot ulcer Plan of Treatment: Future Appointments (+ 6 months) and Future Tests (+/- 45 days) The Plan of Treatment section includes [facility] This section includes future appointments and future orders which are active, pending orscheduled.Future Appointments This section includes appointments that were scheduled to occur 6 months from the date of the Encounter, up to a maximum of 20 appointments. The data comes from all CT treatment facilities. Appointment Date/Time Appointment Type Appointment Facili ty Name Mar 23, 2021 07:00 AM AMBULATORY - NONE [facility] Mar 28, 2021 02:00 PM AMBULATORY - MEDICINE [facility] Mar 31, 2021 07:00 AM AMBULATORY - NONE [facility] Mar 31, 2021 02:00 PM AMBULATORY - REHAB [facility] Apr 07, 2021 01:00 PM AMBULATORY - SURGERY [facility] Apr 15, 2021 01:20 PM AMBULATORY - SURGERY [facility] Apr 25, 2021 11:00 AM AMBULATORY - MEDICINE [facility] Apr 28, 2021 09:00 AM AMBULATORY - NONE [facility] Apr 28, 2021 09:45 AM AMBULATORY - NONE [facility] Apr 28, 2021 10:00 AM AMBULATORY - MEDICINE [facility] May 10, 2021 03:20 PM AMBULATORY - NONE [facility] May 11, 2021 11:45 AM AMBULATORY - MEDICINE [facility] May 11, 2021 12:00 PM AMBULATORY - MEDICINE [facility] May 11, 2021 01:00 PM AMBULATORY - MEDICINE [facility] May 19, 2021 02:30 PM AMBULATORY - NONE [facility] May 19, 2021 04:00 PM AMBULATORY - MEDICINE [facility] May 20, 2021 09:00 AM AMBULATORY - NONE [facility] May 20, 2021 10:00 AM AMBULATORY - SURGERY [facility] May 24, 2021 03:30 PM AMBULATORY - NONE [facility] Jun 02, 2021 02:40 PM AMBULATORY - MEDICINE [facility] Lab Results: +/- 30 days of the encounter This section includes the Chemistry and Hematology Lab Results on record with CT for the patient. Radiology Reports and Pathology Reports are provided separately, in subsequent sections.Lab Results This section contains the Chemistry/Hematology Results that were resulted 30 days before or 30 daysafter the date of the Encounter. Date/Time Source Result Type Result - Unit Interpretation Reference Range Comment Mar 01, 2021 09:31 [facility] EXTRA MINT TUBE Specimen Type: PLASMA AM No comment enter ed. Ordering Provid er: AMARJIT OWEN Report Released Date/Time: Mar 01, 2021 09:31 AM Reporting Lab: [facility] [address] [facility] [id number] Performing Lab: [facility] [address] [facility] [address] EXTRA MINT TUBE RECEIVED Mar 01, 2021 09:31 [facility] C-REACTIVE PROTEIN Specim en Type: SERUM AM No comment enter ed. Ordering Provid er: AMARJIT OWEN Report Released Date/Time: Mar 01, 2021 09:12 AM Reporting Lab: [facility] [address] [facility] [address] Performing Lab: [facility] [address] [facility] [address] C-REACTIVE PROTEIN 9.22 H <5.00 Mar 01, 2021 09:31 AM [facility] CBC & DIFF Specim en Type: BLOOD Comment: Automa sarthak Differential Performed Ordering Provid er: AMARJIT OWEN Report Released Date/Time: Mar 01, 2021 09:12 AM Reporting Lab: [facility] [address] [facility] [address] Performing Lab: [facility] [address] [facility] [address] WBC 5.58 4.0-11.0 RBC 4.90 4.6-6.2 HGB [...] 0.02 0-0.1 Mar 01, 2021 09:31 AM [facility] HEMOGLOBIN A1C Specim en Type: BLOOD No comment enter ed. Ordering Provid er: CARIDAD DENNIS Report Released Date/Time: Mar 01, 2021 04:01 PM Reporting Lab: [facility] [address] [facility] [address] Performing Lab: [facility] [address] [facility] [address] HEMOGLOBIN A1C 8.0 H 4.0-6.0 Social History: Smoking Status (Most current) and Tobacco Use (All prior to encounter date) This section includes the most current, and the historical, smoking and tobacco-related health factors from the CT facility where the Encounter took place.Current Smoking Status This section includes the most current smoking, or tobacco-related health factor, from the CT facility where the Encounter took place. Date/Time Current Smoking Status Comment Facility July 09, 2020 02:00 PM VA-TOBACCO FORMER USER [facility] Tobacco Use History This section includes a history of the smoking, or tobacco- related health factors, that were collected on or before the date of the Encounter. The data comes from the CT facility where the Encounter took place. Date/Time Smoking Status/Tobacco Use Comment [facility] July 09, 2020 02:00 PM VA-TOBACCO QUIT 15 YRS OR MORE [facility] Apr 17, 2019 02:39 PM INPT NO TOBACCO USE IN LAST 30 DAYS [facility] Feb 04, 2019 10:37 AM VA-TOBACCO NEVER USED [facility] Oct 15, 2018 02:43 PM INPT NO TOBACCO USE IN LAST 30 DAYS [facility] Oct 13, 2018 11:30 PM INPT NO TOBACCO USE IN LAST 30 DAYS [facility] Sep 02, 2018 05:50 PM INPT NO TOBACCO USE IN LAST 30 DAYS [facility] Aug 12, 2018 07:28 PM INPT NO TOBACCO USE IN LAST 30 DAYS [facility] Jan 30, 2018 03:28 PM VA-TOBACCO FORMER USER [facility] Jan 30, 2018 03:28 PM VA-TOBACCO QUIT 15 YRS OR MORE [facility] May 29, 2017 04:53 PM INPT NO TOBACCO USE IN LAST 30 DAYS [facility] Apr 25, 2017 10:44 PM INPT NO TOBACCO USE IN LAST 30 DAYS [facility] Jan 01, 2017 06:40 PM INPT NO TOBACCO USE IN LAST 30 DAYS [facility] Dec 21, 2016 02:43 PM FORMER TOBACCO USER 7Y OR GREATER [facility] Sep 24, 2013 08:52 AM FORMER TOBACCO USER 7Y OR GREATER [facility] Advance Directives: All historical and current Section Date Range: From patient's date of to the date document was created. This section includes ALL of a patient's completed or amended CT Advance and Rescinded Directives. The entries below indicate that a directive exists for the patient, but an actual copy is not included with this document. The data comes from all [facility]. Date Advance Directives Provider Source May 29, 2017 CLINICAL WARNING CORNELIO FREITAS [facility] May 16, 2017 ADVANCE DIRECTIVE SERENITY BUENROSTRO [facility] May 16, 2017 ADVANCE DIRECTIVE DISCUSSION CHITRASERENITY A WI [place] [facility] May 04, 2017 CLINICAL WARNING MAGO DIAMOND [facility] May 04, 2017 CLINICAL WARNING GAEL ROSAROI [facility] Apr 26, 2017 CLINICAL WARNING JENNIFER DE LEON [facility] Jan 01, 2017 CLINICAL WARNING AYDE WELLS [facility] Jun 09, 2004 ADVANCE DIRECTIVE DARYL VILLARREAL [facility] Jun 07, 2004 ADVANCE DIRECTIVE SHERYL HOLLOWAY [facility] Radiology Reports: +/- 30 days [...] the Encounter. The data comes from all CT treatment facilities. Date/Time Radiology Report Provider Source Mar 01, 2021 09:44 AM US LOWER EXTREMITY VEIN (UNILATERAL) ( P): XIAO HUGGINS [facility] JESSICA MOJICA [id number] [birth year] 8 M Exm Date: MAR 01, 2021@09:44 Req Phys: AMARJIT OWEN Pat Loc: [facility] DE[facility] WALK-IN (Re Img Loc: Ultrasound Imaging Service: Unknown (Case [id number] COMPLETE) US EXTREMITY VEINS UNILAT (U S Detailed) CPT:84551 Proc Modifiers : LEFT Reason for Study: [...] pager listed below: User placing orders pager: [phone] LAST CREATININE 0.6 L (12/15/20) Report Status: Verified Date Reported: MAR 01, 2021 Date Verified: MAR 01, 2021 Histology Aide E-Sig:/ES/XIAO HUGGINS MD Report: Duplex Ultrasound of [...] Primary Interpreting Staff: XIAO HUGGINS MD, RADIOLOGIST (Histology Aide) Primary Interpreting Resident: JANNET JOSEPH, OFFICE AIDE /OKM Encounter Notes: All associated encounter notes This section contains the clinical notes associated to the Encounter. Date/Time Encounter Note(s) Provider Source Mar 22, 2021 02:30 PM ORTHOTICS PROSTHETICS CONSULT: PING HUTCHINS [facility] LOCAL TITLE: PROSTHETICS CONSULT STANDARD TITLE: ORTHOTICS PROSTHETICS CONSULT DATE OF NOTE: MAR 22, 2021@14:30 ENTRY DATE: MAR 25, 2021@06:02:30 AUTHOR: TRACY HUTCHINS EXP COSIGNER: URGENCY: STATUS: COMPLETED PROSTHETICS CONSULT Has ADDENDA Diabetes (E11.621) Depth inlay shoe A extra depth shoe with a removable insert to a ccomodate foot orthotics. Available in low quarter or boot height with la ce or Velcro closure. Apis ([place]) Size: 13 Width: Extra Wide Rechecked the Pt's measurements & will have the PA order Pt 1pr of the men's Answer 2, Wht. Velcro #[id number]. Return everything to the lab to be fit with cus joon FO's. NTR the Pt for fitting when everything is in & done. Custom foot orthotics A soft insert molded over a model of the donta castro's foot. The insert is modified to provide uniform plantar surface contact within appropriate footwear. Side: Bilateral Also re-molded & will have the PA send the Bio- fm's to [place] for 2prs of FO's from. 3/8 Blue Puff arch fill with 7/5 & 5/3 deg. LH &FFP R>L, Charcot & navicular reliefs (R). 1/8 POOL & Geovanny e Poron mid layers with 2nd toe relief (L) & mid foot reliefs (B). Also to include 1/8 Bamboo anti- bacterial Neosponge top covers. Return the orthotics to the lab to be fit to e Pt's EDS. EDUCATION: Education was provided to patient dur ing this encounter. Patient indicated readiness to learn about educational i nformation re: the following topics: EDS & custom FO's. A-9939, A-4324. . Additional education training is not indicated. Patient indicates readiness to learn, verbalizes understanding, agreement and satisfaction with the treatment plan. Denies fur ther questions. If necessary, patient to be rescheduled upon rec eipt or completed fabrication of ordered item(s)/device(s). /es/ TRACY HUTCHINS POULTRY PICKER Signed: 03/25/2021 06:09 04/19/2021 ADDENDUM STATUS: COMPLETED Receieved the Pt's EDS from [facility] but am waiting on the custom FO's from [place]. Will put this [place] o f EDS on the wire shelves till the custom FO's come into be fit together. /es/ TRACY HUTCHINS POULTRY PICKER Signed: 04/19/2021 06:30 04/22/2021 ADDENDUM STATUS: COMPLETED Receieved the Pt's custom FO's from [facility] & put them on the shelf with the Pt's EDS. Will fit everythin g together & have scheduling send the Pt a NTR for a fitting appointment when done. /es/ TRACY HUTCHINS POULTRY PICKER Signed: 04/22/2021 06:25 05/10/2021 ADDENDUM STATUS: COMPLETED Fit the Pt's custom FO's to the EDS & will have scheduling send the Pt a NTR for a fitting appointment. /es/ TRACY HUTCHINS POULTRY PICKER Signed: 05/10/2021 06:15
--- OUTSIDE RECORDS SUMMARY | 2021-12-23 16:56 | XMS_ITS | Encounter Summary ---
:1945 Author Organization Department [facility] rs Address [address] [place] [address] Support Name Relationship Address Phone FRANCES GANDARA Unavailable [address] [place] [address] FRANCES GANDARA Unavailable [address] [place] [address] FRANCES GANDARA Unavailable [address] [place] [address] FRANCES GANDARA Unavailable [address] [place] [address] Insurance Providers: All historical and current Section [...] MEDICARE MEDICARE PART Apr 19, PART A [id number] Whit MOJICA (WNR) (M) A 2007 50A [phone] JESSICA MEDICARE MEDICARE PART Apr 19, PART A [id number] Whit MOJICA (WNR) (M) A 2007 [id number] [phone] JESSICA Selected Encounter This section includes the information on [place] at [place] for the Encounter. Date/Time Encounter Type Encounter Reason Provider Source Description Mar 28, 2021 OFFICE O/P EST CARDIOLOGY ICD-10-CM I50.9 KARSTEN PINEDA 02:00 PM LOW 20-29 MIN Heart failure, unspecified with Provider Comments: Heart failure (SCT [id number]) IHE Encounter Template Text not used by [facility] Assessments - Encounter Diagnoses This section includes the primary and secondary diagnoses documented for the Encounter. Date/Time Primary/Secondary Diagnosis Name Provider Source Diagnosis Mar 28, 2021 PRIMARY Heart failure, KARSTEN PINEDA [facility] 02:26 PM unspecified HCS Mar 28, 2021 SECONDARY Nonrheumatic KARSTEN PINEDA [facility] 02:26 PM aortic (valve) HCS stenosis Plan of Treatment: Future Appointments (+ 6 months) and Future Tests (+/- 45 days) The Plan of Treatment section includes future care activities for the patient from all [place] treatmentfacilities. This section includes future appointments and future orders which are active, pending orscheduled.Future Appointments This section includes appointments that were scheduled to occur 6 months from the date of the Encounter, up to a maximum of 20 appointments. The data comes from all [place] treatment facilities. Appointment Date/Time Appointment Type Appointment Facili ty Name Mar 31, 2021 07:00 AM AMBULATORY - NONE [facility] Mar 31, 2021 02:00 PM AMBULATORY - REHAB MEDICINE [facility] Apr 07, 2021 01:00 PM AMBULATORY - SURGERY [facility] Apr 15, 2021 01:20 PM AMBULATORY - SURGERY [facility] Apr 25, 2021 11:00 AM AMBULATORY - MEDICINE [facility] Apr 28, 2021 09:00 AM AMBULATORY - NONE [facility] Apr 28, 2021 09:45 AM AMBULATORY - NONE [facility] Apr 28, 2021 10:00 AM AMBULATORY - MEDICINE [facility] May 10, 2021 03:20 PM AMBULATORY - NONE [facility] May 11, 2021 11:45 AM AMBULATORY - MEDICINE [facility] May 11, 2021 12:00 PM AMBULATORY - MEDICINE [facility] May 11, 2021 01:00 PM AMBULATORY - MEDICINE [facility] May 19, 2021 02:30 PM AMBULATORY - NONE [facility] May 19, 2021 04:00 PM AMBULATORY - MEDICINE [facility] May 20, 2021 09:00 AM AMBULATORY - NONE [facility] May 20, 2021 10:00 AM AMBULATORY - SURGERY [facility] May 24, 2021 03:30 PM AMBULATORY - NONE [facility] Jun 02, 2021 02:40 PM AMBULATORY - MEDICINE [facility] Jun 06, 2021 02:30 PM AMBULATORY - NONE [facility] Jun 09, 2021 02:00 PM AMBULATORY - SURGERY [facility] Active, Pending, and Scheduled Orders This section includes a listing of several types of active, pending, and scheduled orders, including clinic medications orders, diagnostic test orders, procedure orders and consult orders; where the start date of the order is 45 days before the date of the Encounter or 45 days after the date of the Encounter. The data comes from all [place] treatment facilities. Test Date/Time Test Type Test Details Facility Name May 11, 2021 02:31 PM Pharmacy - Clinic Infusion [facility] Order Lab Results: +/- 30 days of the encounter This section includes the Chemistry and Hematology Lab Results on record with [place] for the patient. Radiology Reports and Pathology Reports are provided separately, in subsequent sections.Lab Results This section contains the Chemistry/Hematology Results that were resulted 30 days before or 30 daysafter the date of the Encounter. Date/Time Source Result Type Result - Unit Interpretation Reference Range Comment Mar 01, 2021 09:31 [facility] EXTRA MINT TUBE Specimen Type: PLASMA AM No comment enter ed. Ordering Provid er: AMARJIT OWEN Report Released Date/Time: Mar 01, 2021 09:31 AM Reporting Lab: [facility] [address] [facility] [id number] Performing Lab: [facility] [address] [facility] [id number] EXTRA MINT TUBE RECEIVED Mar 01, 2021 09:31 [facility] C-REACTIVE PROTEIN Specim en Type: SERUM AM No comment enter ed. Ordering Provid er: AMARJIT OWEN Report Released Date/Time: Mar 01, 2021 09:12 AM Reporting Lab: [facility] [address] [facility] [id number] Performing Lab: [facility] [address] [facility] [phone] C-REACTIVE PROTEIN 9.22 H <5.00 Mar 01, 2021 09:31 AM [facility] CBC & DIFF Specim en Type: BLOOD Comment: Automa carlo Differential Performed Ordering Provid er: AMARJIT OWEN Report Released Date/Time: Mar 01, 2021 09:12 AM Reporting Lab: [facility] [address] [facility] [address] Performing Lab: [facility] [address] [facility] [phone] WBC 5.58 4.0-11.0 RBC 4.90 4.6-6.2 HGB [...] 0.02 0-0.1 Mar 01, 2021 09:31 AM [facility] HEMOGLOBIN A1C Specim en Type: BLOOD No comment enter ed. Ordering Provid er: CARIDAD DENNIS Report Released Date/Time: Mar 01, 2021 04:01 PM Reporting Lab: [facility] [id number] Performing Lab: [facility] [phone] HEMOGLOBIN A1C 8.0 H 4.0-6.0 Vital Signs: All taken on the encounter date This section contains inpatient and outpatient Vital Signs collected on the date of the Encounter. Date/Time Temperature Pulse Blood Respiratory SP02 Pain Height Weight Joseph dy Source Pressure Rate Mass Index Mar 28, 97.2 F 77 138/79 16 /min 96 % 7 235.2 32 [place] 2021 02:03 /min mm[Hg] lb IS [facility] Social History: Smoking Status (Most current) and Tobacco Use (All prior to encounter date) This section includes the most current, and the historical, smoking and tobacco-related health factors from the [facility] where the Encounter took place.Current Smoking Status This section includes the most current smoking, or tobacco-related health factor, from the [facility] where the Encounter took place. Date/Time Current Smoking Status Comment Facility July 09, 2020 02:00 PM [place]-TOBACCO FORMER USER [facility] Tobacco Use History This section includes a history of the smoking, or tobacco- related health factors, that were collected on or before the date of the Encounter. The data comes from the [facility] where the Encounter took place. Date/Time Smoking Status/Tobacco Use Comment Facil ity July 09, 2020 02:00 PM VA-TOBACCO QUIT 15 YRS OR MORE [facility] Apr 17, 2019 02:39 PM INPT NO TOBACCO USE IN LAST 30 DAYS [facility] Feb 04, 2019 10:37 AM VA-TOBACCO NEVER USED [facility] Oct 15, 2018 02:43 PM INPT NO TOBACCO USE IN LAST 30 DAYS [facility] Oct 13, 2018 11:30 PM INPT NO TOBACCO USE IN LAST 30 DAYS [facility] Sep 02, 2018 05:50 PM INPT NO TOBACCO USE IN LAST 30 DAYS [facility] Aug 12, 2018 07:28 PM INPT NO TOBACCO USE IN LAST 30 DAYS [facility] Jan 30, 2018 03:28 PM VA-TOBACCO FORMER USER [place] [facility] Jan 30, 2018 03:28 PM VA-TOBACCO QUIT 15 YRS OR MORE [facility] May 29, 2017 04:53 PM INPT NO TOBACCO USE IN LAST 30 DAYS [facility] Apr 25, 2017 10:44 PM INPT NO TOBACCO USE IN LAST 30 DAYS [facility] Jan 01, 2017 06:40 PM INPT NO TOBACCO USE IN LAST 30 DAYS [facility] Dec 21, 2016 02:43 PM FORMER TOBACCO USER 7Y OR GREATER [facility] Sep 24, 2013 08:52 AM FORMER TOBACCO USER 7Y OR GREATER [facility] Advance Directives: All historical and current Section Date Range: From patient's date of to the date document was created. This section includes ALL of a patient's completed or amended [place] Advance and Rescinded Directives. The entries below indicate that a directive exists for the patient, but an actual copy is not included with this document. The data comes from all [facility]. Date Advance Directives Provider Source May 29, 2017 CLINICAL WARNING CORNELIO FREITAS S [facility] May 16, 2017 ADVANCE DIRECTIVE SERENITY BUENROSTRO [facility] May 16, 2017 ADVANCE DIRECTIVE DISCUSSION SERENITY [place]ENROSTRO [place] [facility] May 04, 2017 CLINICAL WARNING MAGO DIAMOND [facility] May 04, 2017 CLINICAL WARNING GAEL ROSARIO [facility] Apr 26, 2017 CLINICAL WARNING JENNIFER DE LEON [facility] Jan 01, 2017 CLINICAL WARNING AYDE WELLS [facility] Jun 09, 2004 ADVANCE DIRECTIVE DARYL VILLARREAL [facility] Jun 07, 2004 ADVANCE DIRECTIVE SHERYL HOLLOWAY JADIEL [facility] Radiology Reports: +/- 30 days [...] the Encounter. The data comes from all [place] treatment facilities. Date/Time Radiology Report Provider Source Mar 01, 2021 09:44 AM US LOWER EXTREMITY VEIN (UNILATERAL) ( P): XIAO HUGGINS [facility] JESSICA MOJICA [id number] [birth year] 8 M Exm Date: MAR 01, 2021@09:44 Req Phys: AMARJIT OWEN Loc: [facility] DEPT WALK-IN (Re Img Loc: Ultrasound Imaging Service: Unknown (Case [id number] COMPLETE) US EXTREMITY VEINS UNILAT (U S Detailed) CPT:67087 Proc Modifiers : LEFT Reason for Study: [...] pager listed below: User placing orders pager: [phone] LAST CREATININE 0.6 L (12/15/20) Report Status: Verified Date Reported: MAR 01, 2021 Date Verified: MAR 01, 2021 Office Manager E-Sig:/ES/XIAO HUGGINS MD Report: Duplex Ultrasound [...] Primary Interpreting Staff: XIAO HUGGINS MD, RADIOLOGIST (Office Manager) Primary Interpreting Resident: JANNET JOSEPH, SUPERINTENDENT STEVEDORING /[facility] Encounter Notes: All associated encounter notes This section contains the clinical notes associated to the Encounter. Date/Time Encounter Note(s) Provider Source Mar 28, 2021 02:04 INTERNAL MEDICINE OUTPATIENT NOTE: Leroy MAYEN [facility] LOCAL TITLE: MEDICINE CLINIC NURSING NOTE STANDARD TITLE: INTERNAL MEDICINE OUTPATIENT NOT E DATE OF NOTE: MAR 28, 2021@14:04 ENTRY DATE: MAR 28, 2021@14:04:22 AUTHOR: PARRIS MAYEN EXP COSIGNER: URGENCY: STATUS: COMPLETED TYPE OF VISIT: Appointment Check In Type of appointment: In-person appointment REASON FOR VISIT: CHF ALLERGIES: RIVAROXABAN (Jul 25, 2017) VITAL SIGNS: Blood Pressure: 138/79 (03/28/2021 14:03) Pulse: 77 (03/28/2021 14:03) Respiration: 16 (03/28/2021 14:03) Temperature: 97.2 F [36.2 C] (03/28/2021 14:03) Weight: 235.2 lb [106.9 kg] (03/28/2021 14:03) Height: Unavailable (01/05/2021 10:29) BMI: BMI not available without height O2 Sat: 96% (03/28/2021 14:03) Pain: 7 (03/28/2021 14:03) PAIN SCREEN: Patient is having significant pain that they wo uld like to talk to their provider about today. Old (Chronic) (began more than 6 months ago) Patient states their average pain this past wee k is 7 Patient states the average number on how the ch ronic pain affects their enjoyment of life the past week is 6 Patient states during the past week the average number on how the pain has interfered with their general activity is 7 MEDICATION Over the Counter/Herbal Medications: The patient denies taking any outside medicatio ns or herbals. Congestive Heart Failture (CHF) Clinic Does have a home scale? No, Prosthetics consult entered for scale Does [place] have shortness of breath? Yes Has [place] used any extra water pills in the p week? No How many pillows are under the [place]'s head a t night? 1 Does [place] sleep in a recliner? Yes Does use a wedge while sleeping? Yes Does wake up during the night due to sh ortness of breath? No Does [place] have a cough? No Does [place] ever notice fluid in their legs? No Does [place] have chest pain? No Does experience lightheadedness/dizzine ss? No Does [place] use a salt shaker at the table/whe n cooking? No Does have Home Telehealth CHF monitorin g: No: Given Home Telehealth brochure to review an d discuss with provider /es/ PARRIS MAYEN LPN CARPENTER AND JOINER Signed: 03/28/2021 14:08 Mar 28, 2021 01:59 CARDIOLOGY ATTENDING OUTPATIENT NOTE: KARSTEN PINEDA [facility] LOCAL TITLE: CARDIOLOGY CLINIC NOTE STANDARD TITLE: CARDIOLOGY ATTENDING OUTPATIENT NOTE DATE OF NOTE: MAR 28, 2021@13:59 ENTRY DATE: MAR 28, 2021@13:59:24 AUTHOR: KARSTEN PINEDA EXP COSIGNER: URGENCY: STATUS: COMPLETED PURPOSE OF VISIT: Follow-up in the HF clinic. HPI/S: Mr. Mojica is a 75-yr-old man with a pa st medical history detailed below which, in part, includes ICM, EF 30-35% pr e-bypass), EF 55-60% per TTE 11/2017, CAD with STEMI s/p CABGx4 (MIRZA to LAD, RGSV to OM2, D1, RPDA) 04/2017, moderate , RAJESH, chronic PE (no anticoagulation r/t hemoptysis), T2DM, and obesity, and PAD s/p right distal popliteal DCB angioplasty and tibioperoneal CSI atherectomy. The patient was managed in the HF clinic by Chyna Reveles NP, in the [facility], last visit on 06/22/20 when 6-month follow-up was recommended. Chyna transitioned to another hosp ital so the patient was scheduled to see me for this follow-up. The patient tells me he has been doin g the same as he has been for the past couple of years. Pereira s had problems with his feet for which he plans for a visit at [facility] in the near future. Does not w alk these days because of the foot problem. Feels short of breath if he climbs stairs. Denies chest pain, dizziness. Weight 235 today, was 260 tries to lo se weight intentionally. 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's joint of foot (SCT 341743969) Peripher al vascular disease (SCT 468945639) Heart failure ([facility] 48482776) Active Outpatient Medications (including Supplie s): Active Outpatient Medications Status 1) ACCU-CHEK GUIDE (GLUCOSE) TEST STRIP USE 1 ST RIP ACTIVE TOPICALLY TWICE A DAY TO CHECK BLOOD SUGAR--USE WITHIN 3 MINUTES OF REMOVING FROM CONTAINER T EST AT DIFFERENT TIMES OF THE DAY OR DIRECTED 2) ACETAMINOPHEN 500MG TAB TAKE ONE TABLET BY [facility] ACTIVE EVERY 6 HOURS NEEDED [...] MOUTH TWICE A ACTIVE (S) DAY FOR FLUID RETENTION 11) BUPROPION HCL 150MG 24HR SA TAB TAKE ONE TAB LET BY ACTIVE MOUTH EVERY DAY 12) CARBOXYMETHYLCELLULOSE NA 0.5% OPH SOLN INST ILL 1 ACTIVE DROP IN BOTH EYES FOUR TIMES A DAY FOR DRY EYES 13) CEPHALEXIN 500MG CAP TAKE ONE CAPSULE BY JEROD TH FOUR ACTIVE TIMES A DAY 14) CITALOPRAM HYDROBROMIDE 20MG TAB TAKE ONE TA BLET BY ACTIVE MOUTH EVERY DAY FOR DEPRESSION 15) CLEANSER,WOUND SKINTEGRITY TOP SPRAY SPRAY T O LEFT ACTIVE HEEL AND RIGHT FOOT SUNDAY, SUNDAY AND Y INSTRUCTED FOR DRESSING CHANGES 16) CODEINE 10/GG 100MG/5ML (ALC-F/SF) LIQ TAKE 5 ML TO ACTIVE 10 ML BY MOUTH THREE TIMES A DAY NEEDED FOR COUGH 17) CYANOCOBALAMIN 1000MCG TAB TAKE TWO TABLETS BY MOUTH ACTIVE (S) EVERY WEEK FOR VITAMIN B12 SUPPLEMENT 18) DICLOFENAC NA 1% TOP GEL APPLY 4 GRAMS TO KN EE FOUR ACTIVE TIMES A DAY NEEDED FOR PAIN -USE DOSE CARD I N BOX TO MEASURE DOSE -MAXIMUM OF 32 GM PER DAY 19) DRESS,MEPILEX BORDER FLEX 4X4IN #[id number] APPL Y ACTIVE DRESSING DIRECTED 20) EMPAGLIFLOZIN 25MG TAB TAKE ONE-HALF TABLET BY MOUTH ACTIVE EVERY MORNING FOR DIABETES 21) ERGOCALCIF 1,250MCG (D2-50,000UNIT) CAP TAKE ONE ACTIVE CAPSULE BY MOUTH EVERY MONTH 22) FLUTICASONE PROP 50MCG 120D NASAL INHL SPRAY 1 PUFF ACTIVE EACH NOSTRIL IN EACH NOSTRIL TWICE A DAY FOR NASAL USE 23) GAUZE PAD 4IN X 4IN 8-PLY NONSTERILE USE GAU ZE SPONGE ACTIVE TOPICALLY DIRECTED 24) GLIPIZIDE 10MG TAB TAKE ONE TABLET BY MOUTH TWICE A ACTIVE DAY TAKE 30 MINUTES BEFORE MEAL FOR DIABETE S 25) HYDROCORTISONE 2.5% CREAM APPLY THIN LAVER T O ANKLE ACTIVE TOPICALLY THREE TIMES A DAY NEEDED FOR ITCHI NG 26) IBUPROFEN 600MG TAB TAKE ONE TABLET BY MOUTH EVERY ACTIVE DAY NEEDED FOR JOINT PAIN TAKE WITH FOOD 27) INSULIN,GLARGINE 100 UNT/ML 3ML SOLOSTAR INJ [...] EVERY ACTIVE DAY FOR HIGH BLOOD PRESSURE 33) METFORMIN [...] CONTAINER WITH A SCREW-ON LID CONTACT GAR[place]AGE [place] FOR PROPER DISPOSAL TO USE WITH GLARGI NE 37) OXYCODONE 5MG/ACETAMINOPHEN 325MG TAB TAKE 2 TABLETS ACTIVE (S) BY MOUTH THREE TIMES A DAY FOR SEVERE FOOT PAIN 38) POTASSIUM CHLORIDE 20MEQ/PKT ORAL PWD TAKE 1 PACKET ACTIVE BY MOUTH EVERY DAY --TAKE WITH WATER-- 39) PREDNISOLONE ACETATE 1% OPH SUSP INSTILL 1 D ROP IN ACTIVE OPERATIVE EYE FOUR TIMES A DAY SHAKE WELL FOR POST-OP INFLAMMATION 40) PREGABALIN 100MG ORAL CAP TAKE ONE CAPSULE B Y MOUTH ACTIVE THREE TIMES A DAY FOR NERVE PAIN -REPLACES GABAPENTIN 41) PROPRANOLOL HCL 80MG TAB TAKE ONE TABLET BY MOUTH ACTIVE TWICE A DAY FOR HAND TREMOR 42) ROPINIROLE HCL 2MG SA TAB TAKE TWO TABLETS B Y MOUTH ACTIVE EVERY DAY 43) SEMAGLUTIDE 1MG/0.75ML INJ PEN 3ML INJECT 1M G UNDER ACTIVE THE SKIN EVERY WEEK 44) SILVASORB GEL,TOP APPLY TO AFFECTED AREAS TO PICALLY ACTIVE ONCE DAILY FOR FOOT ULCER 45) SODIUM CHLORIDE 5% OPH OINT APPLY THIN STRIP TO BOTH ACTIVE EYES AT BEDTIME 46) SODIUM CHLORIDE 5% OPH SOLN INSTILL 1 DROP I N BOTH ACTIVE EYES FOUR TIMES A DAY 47) SODIUM FLUORIDE 1.1% TOOTHPASTE BRUSH SMALL AMOUNT ACTIVE MOUTH EVERY MORNING AND AT BEDTIME ON TOOTHBRUS H, BRUSH FOR 2 MINUTES. 48) TADALAFIL 20MG TAB TAKE ONE TABLET BY MOUTH AT ACTIVE BEDTIME TAKE AT LEAST 30 MINUTES BEFORE ANTICIP ATED SEXUAL ACTIVITY. MAXIMUM 4 DOSES FOR 30-DAY SUP PLY 49) TAPE,MEDIPORE H SOFT 4IN X 10YD 3M#3065 CUT AND APPLY ACTIVE TAPE DIRECTED 50) TRIAMCINOLONE ACETONIDE 0.1% OINT APPLY MODE RATE ACTIVE AMOUNT TWICE A DAY NEEDED FOR ITCHING AVOI D FACE,GROIN & ARMPITS *FOR EXTERNAL USE ONLY 51) VANICREAM TOP CREAM APPLY THIN LAYER TOPICAL LY EVERY ACTIVE DAY FOR DRY SKIN APPLY TO FEET AND LEGS 52) VASHE WOUND THERAPY TOP SOLN SATURATE GAUZE WITH ACTIVE SOLUTION AND USE DIRECTED 53) VITAMIN E 180MG (400UNIT) CAP TAKE ONE CAPSU LE BY ACTIVE (S) MOUTH EVERY DAY Active Non-VA Medications Status 1) Non-VA OXYMETAZOLINE HCL 0.05% NASAL SPRAY 1 SPRAY ACTIVE EACH NOSTRIL NEEDED 54 Total Medications O: BP 138/79 Pulse 77 GEN: Comfortable in wheelchair, in NAD HEENT: CV: S1 and S2 and a II-III/ systolic murmur PULM: CTA bilaterally ABD: soft and nontender on palpation BACK: : EXT: BL LE edema (chronic with skin discolorati on) SKIN: NEURO: LAB RESULTS TODAY - NONE FOUND Pertinent Imaging: Echo 11/20/19: Summary: 1. Normal left ventricular size and systolic fun ction with an estimated ejection fraction between 55%-65% and no regiona l wall motion abnormalities. 2. Normal right ventricular size and function. 3. Moderately dilated left atrium. 4. Moderate aortic stenosis, mean pressure gradi ent is 32 mmHg and max velocity is 3.51 m/s. 5. The estimated systolic pulmonary artery press ure is 31.8 mmHg above right atrial pressure. 6. Compared to study dated, there is progression of aortic stenosis from mild to moderate to moderate. 7. Moderate concentric left ventricular hypertro phy. 8. The inferior vena cava was moderately dilated . A/P: Stable from cardiac standpoint though with limited ambulatory ability secondary to problems in his feet. Will not alter current therapy. Follow-up in 6 months with a echocardiogram to follow-up on a ortic valve stenosis. /vinicio/ KARSTEN PINEDA MD STAFF SHEET METAL WORKER HELPER Signed: 03/28/2021 14:26
--- OUTSIDE RECORDS SUMMARY | 2021-12-23 16:58 | XMS_ITS | Encounter Summary ---
:1945 Author Organization [facility] Address [address] [place] [id number] Support Name Relationship Address Phone FRANCES GANDARA Unavailable [address] [place] [address] FRANCES GANDARA Unavailable [address] [place] [address] FRANCES GANDARA Unavailable [address] [place] [address] FRANCES GANDARA Unavailable [address] [place] [address] Insurance Providers: All historical and current Section [...] MEDICARE MEDICARE PART Apr 19, PART A [id number] Whit MOJICA (WNR) (M) A 2007 50A [phone] JESSICA MEDICARE MEDICARE PART Apr 19, PART A [id number] Whit MOJICA (WNR) (M) A 2007 [id number] [phone] JESSICA Selected Encounter This section includes the information on record at [place] for the Encounter. Date/Time Encounter Type Encounter Description Reason Provider Source Mar 29, 2021 02:41 Outpatient Encounter TELEPHONE TRIAGE PM IHE Encounter Template Text not used by [place] Plan of Treatment: Future Appointments (+ 6 [...] 20 appointments. The data comes from all [place] treatment facilities. Appointment Date/Time Appointment Type Appointment Facili ty Name Mar 31, 2021 07:00 AM AMBULATORY - NONE [facility] Mar 31, 2021 02:00 PM AMBULATORY - REHAB [facility]IC[facility] Apr 07, 2021 01:00 PM AMBULATORY - SURGERY [facility] Apr 15, 2021 01:20 PM AMBULATORY - SURGERY [facility] Apr 25, 2021 11:00 AM AMBULATORY - MEDICINE [facility] Apr 28, 2021 09:00 AM AMBULATORY - NONE [facility] Apr 28, 2021 09:45 AM AMBULATORY - NONE [facility] Apr 28, 2021 10:00 AM AMBULATORY - MEDICINE [facility] May 10, 2021 03:20 PM AMBULATORY - NONE [facility] May 11, 2021 11:45 AM AMBULATORY - MEDICINE [facility] May 11, 2021 12:00 PM AMBULATORY - MEDICINE [facility] May 11, 2021 01:00 PM AMBULATORY - MEDICINE [facility] May 19, 2021 02:30 PM AMBULATORY - NONE [facility] May 19, 2021 04:00 PM AMBULATORY - MEDICINE [facility] May 20, 2021 09:00 AM AMBULATORY - NONE [facility] May 20, 2021 10:00 AM AMBULATORY - SURGERY [facility] May 24, 2021 03:30 PM AMBULATORY - NONE [facility] Jun 02, 2021 02:40 PM AMBULATORY - MEDICINE [facility] Jun 06, 2021 02:30 PM AMBULATORY - NONE [facility] Jun 09, 2021 02:00 PM AMBULATORY - SURGERY [facility] Active, Pending, and Scheduled [...] the Encounter. The data comes from all [facility]. Test Date/Time Test Type Test Details Facility Name May 11, 2021 02:31 PM Pharmacy - Clinic Infusion [facility] Order Lab Results: +/- 30 days of the encounter This section includes the Chemistry and Hematology Lab Results on record with [place] for the patient. Radiology Reports and Pathology Reports are provided separately, in subsequent sections.Lab Results This section contains the Chemistry/Hematology Results that were resulted 30 days before or 30 daysafter the date of the Encounter. Date/Time Source Result Type Result - Unit Interpretation Reference Range Comment Apr 28, 2021 03:12 [facility] COVID-19 AND FLU SCRN Spe cimen Type: NASOPHARYNGEAL PM PANEL (FLUVID) No comment enter ed. Ordering Provid er: CARIDAD DENNIS Report Released Date/Time: Apr 28, 2021 02:10 PM Reporting Lab: [facility] [address] [facility] [address] Performing Lab: [facility] [address] [facility] [address] COVID-19 PCR (FLUVID) Not Detected Not D etected FLU A PCR (FLUVID) Not Detected Not Dete cted FLU B PCR (FLUVID) Not Detected Not Dete cted Apr 28, 2021 01:17 PM [facility] HEMOGLOBIN A1C Specim en Type: BLOOD No comment enter ed. Ordering Provid er: CARIDAD DENNIS Report Released Date/Time: Apr 25, 2021 12:00 PM Reporting Lab: [facility] [address] [facility] [address] Performing Lab: [facility] [address] [facility] [address] HEMOGLOBIN A1C 8.0 H 4.0-6.0 Apr 28, 2021 01:17 [facility] PROTHROMBIN TIME/INR Spec imen Type: PLASMA PM No comment enter ed. Ordering Provid er: CARIDAD DENNIS Report Released Date/Time: Apr 25, 2021 12:00 PM Reporting Lab: [facility] [address] [facility] [address] Performing Lab: [facility] [address] [facility] [address] .INR 1.1 0.8-1.1 .PT 13.2 H 9.4-12.5 Apr 28, 2021 01:17 PM [facility] CBC Specim en Type: BLOOD No comment enter ed. Ordering Provid er: CARIDAD DENNIS Report Released Date/Time: Apr 25, 2021 12:00 PM Reporting Lab: [facility] [address] [facility] [address] Performing Lab: [facility] [address] [facility] [address] WBC 4.06 4.0-11.0 RBC 5.41 4.6-6.2 HGB 14.8 13.5-17.9 HCT 47.0 41-54 MCV 86.9 80-100 MCH 27.4 27-33 MCHC 31.5 L 32.0-37.5 PLT 263 150-400 MPV 9.2 7.4-10.4 RDW 14.2 11.5-14.5 Apr 28, 2021 01:17 [facility] TSH W/REFLEX TO FREE Spec imen Type: PLASMA PM T4 No comment enter ed. Ordering Provid er: CARIDAD DENNIS Report Released Date/Time: Apr 25, 2021 12:00 PM Reporting Lab: [facility] [address] [facility] [address] Performing Lab: [facility] [address] TSH 0.73 0.35-4.94 Apr 28, 2021 [facility] COMPREHENSIVE METABOLIC Spec imen Type: PLASMA 01:17 PM PANEL+MG No comment enter ed. Ordering Provid er: CARIDAD DENNIS Report Released Date/Time: Apr 25, 2021 12:00 PM Reporting Lab: [facility] [address] [facility] [address] Performing Lab: [facility] [address] CREATININE 0.7 0.7-1.2 UREA NITROGEN 16 8-26 GLUCOSE 207 H 74-100 SODIUM 137 136-145 POTASSIUM 4.5 3.5-5.1 CHLORIDE 103 98-107 CO2 28 22-29 CALCIUM 9.1 8.4-10.2 PROTEIN,TOTAL 7.4 6.0-8.3 ALBUMIN 3.8 3.5-5.2 BILIRUBIN, TOTAL 0.8 0.2-1.2 MAGNESIUM 2.1 1.6-2.6 ANION GAP 6 5-15 ALKALINE PHOSPHATASE 110 40-150 ALT/SGPT 14 <55 AST/SGOT 14 <34 CREAT EGFR(CKD-EPI) >90 >60 Mar 01, 2021 09:31 [facility] EXTRA MINT TUBE Specimen Type: PLASMA AM No comment enter ed. Ordering Provid er: AMARJIT OWEN Report Released Date/Time: Mar 01, 2021 09:31 AM Reporting Lab: [facility] [address] [facility] [address] Performing Lab: [facility] [facility] [address] EXTRA MINT TUBE RECEIVED Mar 01, 2021 09:31 [facility] C-REACTIVE PROTEIN Specim en Type: SERUM AM No comment enter ed. Ordering Provid er: AMARJIT OWEN Report Released Date/Time: Mar 01, 2021 09:12 AM Reporting Lab: [facility] [address] Performing Lab: [facility] [address] C-REACTIVE PROTEIN 9.22 H <5.00 Mar 01, 2021 09:31 AM [facility] CBC & DIFF Specim en Type: BLOOD Comment: Automa sarthak Differential Performed Ordering Provid er: AMARJIT OWEN Report Released Date/Time: Mar 01, 2021 09:12 AM Reporting Lab: [facility] [address] Performing Lab: [facility] [address] WBC 5.58 4.0-11.0 RBC 4.90 4.6-6.2 HGB [...] 0.02 0-0.1 Mar 01, 2021 09:31 AM [facility] HEMOGLOBIN A1C Specim en Type: BLOOD No comment enter ed. Ordering Provid er: CARIDAD DENNIS Report Released Date/Time: Mar 01, 2021 04:01 PM Reporting Lab: [facility] [address] Performing Lab: [facility] [address] [facility] [address] HEMOGLOBIN A1C 8.0 H 4.0-6.0 Social History: Smoking Status (Most current) and Tobacco Use (All prior to encounter date) This section includes the most current, and the historical, smoking and tobacco-related health factors from the [place] facility where the Encounter took place.Current Smoking Status This section includes the most current smoking, or tobacco-related health factor, from the [place] facility where the Encounter took place. Date/Time Current Smoking Status Comment Facility July 09, 2020 02:00 PM VA-TOBACCO FORMER USER [facility] Tobacco Use History This section includes a history of the smoking, or tobacco- related health factors, that were collected on or before the date of the Encounter. The data comes from the [place] facility where the Encounter took place. Date/Time Smoking Status/Tobacco Use Comment [facility] it July 09, 2020 02:00 PM VA-TOBACCO QUIT 15 YRS OR MORE [facility] Apr 17, 2019 02:39 PM INPT NO TOBACCO USE IN LAST 30 DAYS [facility] Feb 04, 2019 10:37 AM VA-TOBACCO NEVER USED [place] [facility] Oct 15, 2018 02:43 PM INPT NO TOBACCO USE IN LAST 30 DAYS [facility] Oct 13, 2018 11:30 PM INPT NO TOBACCO USE IN LAST 30 DAYS [facility] Sep 02, 2018 05:50 PM INPT NO TOBACCO USE IN LAST 30 DAYS [facility] Aug 12, 2018 07:28 PM INPT NO TOBACCO USE IN LAST 30 DAYS [facility] Jan 30, 2018 03:28 PM VA-TOBACCO FORMER USER [place] [facility] Jan 30, 2018 03:28 PM VA-TOBACCO QUIT 15 YRS OR MORE [facility] May 29, 2017 04:53 PM INPT NO TOBACCO USE IN LAST 30 DAYS [facility] Apr 25, 2017 10:44 PM INPT NO TOBACCO USE IN LAST 30 DAYS [facility] Jan 01, 2017 06:40 PM INPT NO TOBACCO USE IN LAST 30 DAYS [facility] Dec 21, 2016 02:43 PM FORMER TOBACCO USER 7Y OR GREATER [facility] Sep 24, 2013 08:52 AM FORMER TOBACCO USER 7Y OR GREATER [facility] Advance Directives: All historical and current Section Date Range: From patient's date of to the date document was created. This section includes ALL of a patient's completed or amended [place] Advance and Rescinded Directives. The entries below indicate that a directive exists for the patient, but an actual copy is not included with this document. The data comes from all [place] facilities. Date Advance Directives Provider Source May 29, 2017 CLINICAL WARNING CORNELIO FREITAS [facility] May 16, 2017 ADVANCE DIRECTIVE SERENITY BUENROSTRO [place] V A [facility] May 16, 2017 ADVANCE DIRECTIVE DISCUSSION SERENITY BUENROSTRO [place] [facility] May 04, 2017 CLINICAL WARNING MAGO DIAMOND [facility] May 04, 2017 CLINICAL WARNING GAEL ROSARIO [facility] Apr 26, 2017 CLINICAL WARNING JENNIFER DE LEON [facility] Jan 01, 2017 CLINICAL WARNING AYDE WELLS [facility] Jun 09, 2004 ADVANCE DIRECTIVE DARYL VILLARREAL [facility] Jun 07, 2004 ADVANCE DIRECTIVE HOLLOWAY,SHERYL JADIEL [facility] Radiology Reports: +/- 30 days of [...] the Encounter. The data comes from all [facility] facilities. Date/Time Radiology Report Provider Source Apr 28, 2021 09:06 AM MYOCARDIAL PERFUSION PHARMACOLOGIC STR ESS/REST: DARIN BAKER [facility] JESSICA MOJICA [id number] -[birth year] 8 M Exm Date: APR 28, 2021@09:06 Req Phys: CARIDAD DENNIS Pat Loc: [facility] PACT SAPPHIRE 4E (Req'g Lo Img Loc: N[facility] MED Service: Unknown (Case [id number] COMPLETE) MYOCARDIAL PERFUSION (SPECT )-MULT(OK Detailed) CPT:87615 Reason for Study: CAD, PAD risk stratefication prior to surgery 05/02 (Case 2145 COMPLETE) TC-99M SESTAMIBI (CARDIOLIT E), PE(NM Detailed) CPT:A9500 (Case [id number] COMPLETE) CARDIOVASCULAR STRESS TEST (OK Detailed) CPT:98133 Clinical History: Is this patient on Observation Status? No surgery 05/02/21. please schedule prior if possi ble h/o CAD, PAD. limited ability to walk due to fo ot issues [place] IS NOT under investigation for COVID-19 or is COVID-19 negative 75 yo M with Responsible provider name and phon e number to notify for critical findings if other than user placing the order and pager listed below: User placing orders [facility] er: [phone] LAST CREATININE 0.6 L (12/15/20) Is the patient taking/taken dipyridamole/aggren ox in the last week? No Has patient taken theophylline product s in the last 3 days? No Patient has been educated not to consu me coffee, Sanka, tea or soft drinks 8 hours prior to test? Yes Report Status: Verified Date Reported: APR 28, 2021 Date Verified: APR 28, 2021 3D Designer E-Sig:/ES/DARIN BAKER MD Report: Regadenoson myocardial perfusion study Dose: 0.4 mg of Regadenoson IV followed by 14.4 mCi Tc-99 m Sestamibi. 5.0 mCi Tc-99 m Sestamibi IV for the resting study. No adverse effects. No diagnostic EKG changes. SPECT images demonstrate a moderate partially r eversible perfusion defect involving the apex extending i nto the apical to mid anteroseptal region, and also the apical in ferior segment. This seems to be associated with a wall motion abnormality. Reduced radiotracer uptake involving the basal to mid inferior and inferolateral region, some of which appears more prominent post stress than rest. This is not associated w ith a wall motion abnormality. Patient did not tolerate prone imaging. No further exam available for comparison. Impression: 1. 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 Total abnormality is moderate. An additional reversib le defect involving the inferior wall is of less certain significance. This could be an additional area of ischemia, it may represent variable attenuation artifact. Patient did not tolerate prone imaging. 2. Left ventricular ejection fraction is 45 %. Septal hypokinesis likely related to prior open heart surgery. Likely also apical wall motion abnormality. Primary Diagnostic Code: SIGNIFICANT ABNORMALIT Y, ATTN NEEDED Primary Interpreting Staff: DARIN BAKER MD, RADIOLOGY STAFF PHYSICIAN (V erifier) /TATIAAN Mar 01, 2021 09:44 AM US LOWER EXTREMITY VEIN (UNILATERAL) ( P): XIAO HUGGINSVIJAY [facility] JESSICA MOJICA [id number] -[birth year] 8 M Exm Date: MAR 01, 2021@09:44 Req Phys: AMARJIT OWEN Maria Antonia Loc: [facility] (Re Img Loc: Ultrasound Imaging Service: Unknown (Case [id number] COMPLETE) US EXTREMITY VEINS UNILAT (U S Detailed) CPT:11487 Proc Modifiers : LEFT Reason for Study: [...] pager listed below: User placing orders pager: [phone] LAST CREATININE 0.6 L (12/15/20) Report Status: Verified Date Reported: MAR 01, 2021 Date Verified: MAR 01, 2021 3D Designer E-Sig:/ES/XIAO HUGGINS MD Report: Duplex Ultrasound of [...] Primary Interpreting Staff: XIAO HUGGINS MD, RADIOLOGIST (3D Designer) Primary Interpreting Resident: JANNET JOSEPH, REMEDIATION BIOANALYTICS CONSULTANT /[facility] Encounter Notes: All associated encounter notes This section contains the clinical notes associated to the Encounter. Date/Time Encounter Note(s) Provider Source Mar 29, 2021 02:41 PM REPORT OF CONTACT: PATRIZIA STODDARD [facility] LOCAL TITLE: PATIENT CONTACT NOTE D STANDARD TITLE: REPORT OF CONTACT DATE OF NOTE: MAR 29, 2021@14:41 ENTRY DATE: MAR 29, 2021@14:41:10 AUTHOR: EDUARDO STODDARD COSIGNER: URGENCY: STATUS: COMPLETED PATIENT CONTACT NOTE Has [facility] Phone number verified as correct. [phone] The stated he received a letter from [facility] in [facility] Prosthetics department sta aleida after 03/22/2021 his Guardian 911 Device will no longer work. Model number [id number] The is requesting a referral for a new d evice. Please call the at the above listed numb er. /vinicio/ PATRIZIA RAMIREZ VISN23 [facility] Signed: 03/29/2021 14:46 Receipt Acknowledged By: 03/29/2021 14:59 /vinicio/ STEVIE GUARDADO/Bajlinder Team [employer] ext [phone] for RAINER Araiza TIFFANY 03/29/2021 ADDENDUM STATUS: COMPLETED OT equipment consult placed. /vinicio/ STEVIE GUARDADO/Baljinder Team [employer] ext [phone] Signed: 03/29/2021 14:59
--- OUTSIDE RECORDS SUMMARY | 2021-12-23 17:00 | XMS_ITS | Encounter Summary ---
:1945 Author Organization [facility] Address [address] [place] [id number] Support Name Relationship Address Phone FRANCES GANDARA Unavailable [address] [place] [address] FRANCES GANDARA Unavailable [address] [place] [address] FRANCES GANDARA Unavailable [address] [place] [address] FRANCES GANDARA Unavailable [address] [place] [address] Insurance Providers: All historical and current Section [...] MEDICARE MEDICARE PART Apr 19, PART A [id number] Whit MOJICA (WNR) (M) A 2007 50A [phone] JESSICA MEDICARE MEDICARE PART Apr 19, PART A [id number] Whit MOJICA (WNR) (M) A 2007 [id number] [phone] JESSICA Selected Encounter This section includes the information on record at [place] for the Encounter. Date/Time Encounter Type Encounter Reason Provider Source Description Mar 31, 2021 THERAPEUTIC OCCUPATIONAL ICD-10-CM MÓNICA MADDOX 02:00 PM ACTIVITIES THERAPY M14.671 W Charcot's joint, right ankle and foot with Provider Comments: Charcot's Joint, right Ankle and Foot IHE Encounter Template Text not used by [facility] Assessments - Encounter Diagnoses This section includes the primary and secondary diagnoses documented for the Encounter. Date/Time Primary/Secondary Diagnosis Name Provider Source Diagnosis Mar 31, 2021 PRIMARY Charcot's MÓNICA MADDOX V A 03:20 PM joint, right W HCS ankle and foot Plan of Treatment: Future Appointments (+ [...] Date/Time Appointment Type Appointment Facili ty Name Apr 07, 2021 01:00 PM AMBULATORY - SURGERY [facility] Apr 15, 2021 01:20 PM AMBULATORY - SURGERY [facility] Apr 25, 2021 11:00 AM AMBULATORY - MEDICINE [facility] Apr 28, 2021 09:00 AM AMBULATORY - NONE [facility] Apr 28, 2021 09:45 AM AMBULATORY - NONE [facility] Apr 28, 2021 10:00 AM AMBULATORY - MEDICINE [facility] May 10, 2021 03:20 PM AMBULATORY - NONE [facility] May 11, 2021 11:45 AM AMBULATORY - MEDICINE [facility] May 11, 2021 12:00 PM AMBULATORY - MEDICINE [facility] May 11, 2021 01:00 PM AMBULATORY - MEDICINE [facility] May 19, 2021 02:30 PM AMBULATORY - NONE [facility] May 19, 2021 04:00 PM AMBULATORY - MEDICINE [facility] May 20, 2021 09:00 AM AMBULATORY - NONE [facility] May 20, 2021 10:00 AM AMBULATORY - SURGERY [facility] May 24, 2021 03:30 PM AMBULATORY - NONE [facility] Jun 02, 2021 02:40 PM AMBULATORY - MEDICINE [facility] Jun 06, 2021 02:30 PM AMBULATORY - NONE [facility] Jun 09, 2021 02:00 PM AMBULATORY - SURGERY [facility] June 21, 2021 01:45 PM AMBULATORY - NONE [facility] June 22, 2021 09:30 AM AMBULATORY - NONE [facility] Active, Pending, and Scheduled Orders This section [...] 2021 02:31 PM Pharmacy - Clinic Infusion [facility] Order Lab Results: +/- 30 days of [...] Reference Range Comment Apr 28, 2021 03:12 [facility] COVID-19 AND FLU SCRN Spe cimen Type: NASOPHARYNGEAL PM PANEL (FLUVID) No comment enter ed. Ordering Provid er: CARIDAD DENNIS Report Released Date/Time: Apr 28, 2021 02:10 PM Reporting Lab: [facility] [address] [id number] Performing Lab: [facility] [address] COVID-19 PCR (FLUVID) Not Detected Not D etected FLU A PCR (FLUVID) Not Detected Not Dete cted FLU B PCR (FLUVID) Not Detected Not Dete cted Apr 28, 2021 01:17 PM [facility] HEMOGLOBIN A1C Specim en Type: BLOOD No comment enter ed. Ordering Provid er: CARIDAD DENNIS Report Released Date/Time: Apr 25, 2021 12:00 PM Reporting Lab: [facility] [address] [facility] [address] Performing Lab: [facility] [address] [facility] [address] HEMOGLOBIN A1C 8.0 H 4.0-6.0 Apr 28, 2021 01:17 [facility] PROTHROMBIN TIME/INR Spec imen Type: PLASMA PM No comment enter ed. Ordering Provid er: CARIDAD DENNIS Report Released Date/Time: Apr 25, 2021 12:00 PM Reporting Lab: [facility] [address] [facility] [address] Performing Lab: [facility] [address] .INR 1.1 0.8-1.1 .PT 13.2 H 9.4-12.5 Apr 28, 2021 01:17 [facility] TSH W/REFLEX TO FREE Spec imen Type: PLASMA PM T4 No comment enter ed. Ordering Provid er: CARIDAD DENNIS Report Released Date/Time: Apr 25, 2021 12:00 PM Reporting Lab: [facility] [address] [facility] [address] Performing Lab: [facility] [address] [facility] [address] TSH 0.73 0.35-4.94 Apr 28, 2021 01:17 PM [facility] CBC Specim en Type: BLOOD No comment enter ed. Ordering Provid er: CARIDAD DENNIS Report Released Date/Time: Apr 25, 2021 12:00 PM Reporting Lab: [facility] [address] [facility] [address] Performing Lab: [facility] [address] [facility] [address] WBC 4.06 4.0-11.0 RBC 5.41 4.6-6.2 HGB 14.8 13.5-17.9 HCT 47.0 41-54 MCV 86.9 80-100 MCH 27.4 27-33 MCHC 31.5 L 32.0-37.5 PLT 263 150-400 MPV 9.2 7.4-10.4 RDW 14.2 11.5-14.5 Apr 28, 2021 [facility] COMPREHENSIVE METABOLIC Spec imen Type: PLASMA 01:17 PM PANEL+MG No comment enter ed. Ordering Provid er: CARIDAD DENNIS Report Released Date/Time: Apr 25, 2021 12:00 PM Reporting Lab: [facility] [address] [facility] [address] Performing Lab : [facility] [address] [facility] [address] CREATININE 0.7 0.7-1.2 UREA NITROGEN 16 8-26 GLUCOSE 207 H 74-100 SODIUM 137 136-145 POTASSIUM 4.5 3.5-5.1 CHLORIDE 103 98-107 CO2 28 22-29 CALCIUM 9.1 8.4-10.2 PROTEIN,TOTAL 7.4 6.0-8.3 ALBUMIN 3.8 3.5-5.2 BILIRUBIN, TOTAL 0.8 0.2-1.2 MAGNESIUM 2.1 1.6-2.6 ANION GAP 6 5-15 ALKALINE PHOSPHATASE 110 40-150 ALT/SGPT 14 <55 AST/SGOT 14 <34 CREAT EGFR(CKD-EPI) >90 >60 Social History: Smoking Status (Most current) and [...] 2020 02:00 PM VA-TOBACCO FORMER USER [facility] Tobacco Use History This section includes a history of the smoking, or tobacco- related health factors, that were collected on or before the date of the Encounter. The data comes from the [place] facility where the Encounter took place. Date/Time Smoking Status/Tobacco Use Comment [facility] it July 09, 2020 02:00 PM VA-TOBACCO QUIT 15 YRS OR MORE [facility] Apr 17, 2019 02:39 PM INPT NO TOBACCO USE IN LAST 30 DAYS [facility] Feb 04, 2019 10:37 AM VA-TOBACCO NEVER USED [facility] Oct 15, 2018 02:43 PM INPT NO TOBACCO USE IN LAST 30 DAYS [facility] Oct 13, 2018 11:30 PM INPT NO TOBACCO USE IN LAST 30 DAYS [facility] Sep 02, 2018 05:50 PM INPT NO TOBACCO USE IN LAST 30 DAYS [facility] Aug 12, 2018 07:28 PM INPT NO TOBACCO USE IN LAST 30 DAYS [facility] Jan 30, 2018 03:28 PM VA-TOBACCO FORMER USER [place] [facility] Jan 30, 2018 03:28 PM VA-TOBACCO QUIT 15 YRS OR MORE [facility] May 29, 2017 04:53 PM INPT NO TOBACCO USE IN LAST 30 DAYS [facility] Apr 25, 2017 10:44 PM INPT NO TOBACCO USE IN LAST 30 DAYS [facility] Jan 01, 2017 06:40 PM INPT NO TOBACCO USE IN LAST 30 DAYS [facility] Dec 21, 2016 02:43 PM FORMER TOBACCO USER 7Y OR GREATER [facility] Sep 24, 2013 08:52 AM FORMER TOBACCO USER 7Y OR GREATER [facility] Advance Directives: All historical and current Section [...] May 29, 2017 CLINICAL WARNING CORNELIO FREITAS [facility] May 16, 2017 ADVANCE DIRECTIVE SERENITY [place]O [place] [facility] May 16, 2017 ADVANCE DIRECTIVE DISCUSSION [place] [facility] May 04, 2017 CLINICAL WARNING MAGO DIAMOND [facility] May 04, 2017 CLINICAL WARNING GAEL ROSARIO [facility] Apr 26, 2017 CLINICAL WARNING JENNIFER DE LEON [facility] Jan 01, 2017 CLINICAL WARNING WELLSAYDE HAGEN [facility] Jun 09, 2004 ADVANCE DIRECTIVE VILLARREALDARYL [facility] Jun 07, 2004 ADVANCE DIRECTIVE HOLLOWAY,SHERYL JADIEL [facility] Radiology Reports: +/- 30 days of the [...] treatment facilities. Date/Time Radiology Report Provider Source Apr 28, 2021 09:06 AM MYOCARDIAL PERFUSION PHARMACOLOGIC STR ESS/REST: DARIN BAKER [facility] HEATH MOJICASydney GRAFF [id number] [birth year] M Exm Date: APR 28, 2021@09:06 Req Phys: CARIDAD DENNIS Pat Loc: [facility] PACT SAPPHIRE 4E (Req'g Lo Img Loc: [facility] Service: Unknown (Case [id number] COMPLETE) MYOCARDIAL PERFUSION (SPECT )-MULT(MA Detailed) CPT:29142 Reason for Study: CAD, PAD risk stratefication prior to surgery 05/02 (Case [id number] COMPLETE) TC-99M SESTAMIBI (CARDIOLIT E), PE(NM Detailed) CPT:A9500 (Case [id number] COMPLETE) CARDIOVASCULAR STRESS TEST (NM Detailed) CPT:68781 Clinical History: Is this patient on Observation Status? No surgery 05/02/21. please schedule prior if possi ble h/o CAD, PAD. limited ability to walk due to fo ot issues [place] IS NOT under investigation for COVID-19 or is COVID-19 negative 75 yo M with Responsible provider name and phon e number to notify for critical findings if other than user placing the order and pager listed below: User placing orders [facility] er: [phone] LAST CREATININE 0.6 L (12/15/20) Is the patient taking/taken dipyridamole/aggren ox in the last week? No Has patient taken theophylline product s in the last 3 days? No Patient has been educated not to consu me coffee, Sanka, tea or soft drinks 8 hours prior to test? Yes Report Status: Verified Date Reported: APR 28, 2021 Date Verified: APR 28, 2021 Aquatics Director E-Sig:/ES/DARIN BAKER MD Report: Regadenoson myocardial perfusion [...] BAKER MD, RADIOLOGY STAFF PHYSICIAN (V erifier) /TATIANA Mar 01, 2021 09:44 AM US LOWER EXTREMITY VEIN (UNILATERAL) ( P): XIAO HUGGINS [facility] JESSICA MOJICA [id number] -[birth year] 8 M Exm Date: MAR 01, 2021@09:44 Req Phys: AMARJIT OWEN Loc: [facility] W[facility] (Re Img Loc: Ultrasound Imaging Service: Unknown (Case [id number] COMPLETE) US EXTREMITY VEINS UNILAT (U S Detailed) CPT:62961 Proc Modifiers : LEFT Reason for Study: please look for DVT Clinical History: [place] IS NOT under investigation for COVID-19 or is COVID-19 negative Swelling, erythema, tenderness incl along deep veins. NOt responsive to antibiotic course. Wells score fo r DVT = 5 Responsible provider name and phone number to n otify for critical findings if other than user placing the order a nd pager listed below: User placing orders pager: [phone] LAST CREATININE 0.6 L (12/15/20) Report Status: Verified Date Reported: MAR 01, 2021 Date Verified: MAR 01, 2021 Aquatics Director E-Sig:/ES/XIAO HUGGINS MD Report: Duplex Ultrasound of [...] Primary Interpreting Staff: XIAO HUGGINS MD, RADIOLOGIST (Aquatics Director) Primary Interpreting Resident: JANNET JOSEPH, SUPPORT SERVICE TECH /[facility] Encounter Notes: All associated encounter notes This section contains the clinical notes associated to the Encounter. Date/Time Encounter Note(s) Provider Source Mar 31, 2021 02:06 PM OCCUPATIONAL THERAPY CONSULT: TANO MADDOX [facility] LOCAL TITLE: OCCUPATIONAL THERAPY CONSULT STANDARD TITLE: OCCUPATIONAL THERAPY CONSULT DATE OF NOTE: MAR 31, 2021@14:06 ENTRY DATE: MAR 31, 2021@14:06:21 AUTHOR: MÓNICA MADDOX EXP COSIGNER: URGENCY: STATUS: COMPLETED OCCUPATIONAL THERAPY CONSULT Has ADDENDA * OCCUPATIONAL THERAPY EQUIPMENT CONSULT Ordering provider: CARIDAD DENNIS Consult request: home safety eval Diagnosis: Charcot's Joint, right Ankle and Foot (ICD-10-CM M14.671) Encounter: -OT Evaluation: Low complexity (1): 15 min; jean claude f care 15 min Subjective: I need some equipment, I have no grab bars thro ughout the home. Agustin reports interest in a flip down bar and grab bar near the toilet, and grab bars in the shower. Agustin reports that he has a shower chair currently, but is interested in a handheld shower hose. Agustin reports that he curr ently has walk in shower in primary bathroom. Agustin reports that he currently has a bed rail but that it is not currently meeting his needs, requesting a ne w bed rail. Agustin reports that his shower chair back has broken off and that he has attempted to super glue the backrest but it will not stay on, therapist to order replacement shower chair. Agustin reports fall 1x in past 6 mos, nothi ng bad, just sore knees. Agustin reports that his [employer] sent a letter that it needs to be replaced as it is out of date. Agustin states that he is in terested in a stair glide to access his basement as his current foot problem s and dizziness prevent him from being able to use his s tairs, agustin reports that he has to access the utility area of his home, therapist will discuss with home evaluation team to determine if appropriate and place recommendation as jose carlos hutchison. Agustin reports that he has difficulty with transferring to his shower chair at this time, therapist recommends that vet receive transfer board train ing while inpatient after his procedure to maximize safety with transfers, agustin is agreeable to this idea. Assessment/recommendations: Vet seen today, Mar, to discuss adaptive equipment to increase safety and independence. Vet arrives to clinic seated in transport wheelchair. Vet demonstrates impaired strength, mobility, AROM, and balance increasing risk of falls and limiting (I) with ADL completion. Vet would benefit from equipment listed below to maximize safety and (I) in home. Vet demonstrates mobility impairments that joan groves qualify him for stair glide, therapist to discuss with home evaluation team and place recommendati on as appropriate. Vet verbalizes understanding of all equipmen t and is agreeable to plan of care, no further questions, concerns, or needs at this ti me. Identified the following barriers: -Lives alone -Generalized weakness -ROM deficits -Hx of falls Vet will benefit from adaptive equipment to incr ease safety and functional independence and was provided education on featu res and benefits of equipment. Vet will benefit from the following a daptive equipment: -[employer] -Vendor to install: -1 16-18 grab bar running vertical on the outs luis f R/L wall of the tub/shower. -1 24-32 grab bar running diagonal on the insi de long wall of the tub/shower. -Fold down PT grab bar used near toilet in prim young bathroom -1 16 grab bar use opposite side of toilet fro m PT grab bar -Shower chair -Handheld shower hose -Bed rail Patient Education: indicates readiness to learn, verbalizes underst anding, agreement and satisfaction with the treatment plan. Denies fur ther questions. P: No other OT needs at this time. D/C from OT. GOALS: 1.Vet will verbalize areas o f concern with daily tasks to assist with equipment selection in order to maximize safety and (I) in home. MET OCCUPATIONAL THERAPY EVALUATION COMPLEXITY Identifying and reporting the complexity level o f an evaluation focuses on the first three of these factors--profile and hi story, assessment and determination of deficts, and clinical decision making. These three factors must be scored and defensible documentation wr itten to support the choice of a level. (Information taken from: https://www .aota.org) PROFILE AND HISTORY (including chart view) Brief history of medical and/or therapy records relating to the presenting problem (low complexity) ASSESSMENT & PERFORMANCE DEFICITS (select all th at apply): Inability to complete activities due to the lack of skills in one or more of the categories (physical, cognitive, or psych osocial skills). Physical: strength, mobility, balance, AROM ALARCON: 1-3 performance deficits = Low Complexity LEVEL OF CLINICAL DECISION MAKING Commorbidities affect occupational performance: Yes (moderate or high complexity) Modifications of tasks or assistance to enable completion of evaluation: Not necessary (Low complexity) Level of Clinical Decision Making: Problem-focused assessment(s), consideration of a limited number of treatment options, presents with no comorbidities and tori fication of tasks or assistance is not necessary.(Low complexity) OVERALL EVALUATION COMPLEXITY: Overall rating is the lowest of the three compon ents (Profile & History, Assessment of Occupational Performance & Perform ance Deficits, and Level of Clinical Decision Making). In order to move t o a higher level of evalaution, all three components must be of the higher level. LOW COMPLEXITY Brief history of medical/or therapy records relating to the presenting problem. An assessement(s) that identifies 1-3 performanc e deficits that result in activity limitation and/or participating restric tions. Includes analysis of the occupational profile, a nalysis of date from problem- focused assessment(s), and consideration of a li mited number of treatment options. Patient presents with no c omorbidities that affect occupational performance. Modification of tasks or assistance with assessm ent(s) is not necessary to enable completion of evaluation component. /vinicio/ FREEMAN ALEX, OTR/L OCCUPATIONAL THERAPIST Signed: 03/31/2021 15:25 04/01/2021 ADDENDUM STATUS: COMPLETED Discussed with home evaluation OT and agreed alexandr t home evaluation would be beneficial, recommending consult be plac ed for home evaluation to evaluate for stair glide or hand rail to access basement d/t utilities in basement. Please follow pathway to place consult: Consult menu -> 20 Outpt Con sult menu -> [facility] Outpt -> Occupational Therapy -> HOME ACCESSIBILITY MARK /vinicio/ FREEMAN ALEX, OTR/L OCCUPATIONAL THERAPIST Signed: 04/01/2021 08:00 Receipt Acknowledged By: * AWAITING SIGNATURE * CARIDAD DENNIS
--- OUTSIDE RECORDS SUMMARY | 2021-12-23 17:01 | XMS_ITS | Encounter Summary ---
:1945 Author Organization Department [facility] rs Address [address] [place] [id number] Support Name Relationship Address Phone FRANCES GANDARA Unavailable [address] [place] [address] FRANCES GANDARA Unavailable [address] [place] [address] FRANCES GANDARA Unavailable [address] [place] [address] FRANCES GANDARA Unavailable [address] [place] [address] Insurance Providers: All historical and current Section [...] MEDICARE MEDICARE PART Apr 19, PART A [id number] Whit [place] (WNR) (M) A 2007 50A [phone] [place] MEDICARE MEDICARE PART Apr 19, PART A [id number] Whit [place] (WNR) (M) A 2007 [id number] [phone] [place] Selected Encounter This section includes the information on record at [place] for the Encounter. Date/Time Encounter Type Encounter Reason Provider Source Description Apr 07, 2021 OFFICE O/P EST VASCULAR SURGERY ICD-10-CM STARR RICHEY 01:00 PM HI 40-54 MIN E11.621 Type 2 diabetes mellitus with foot ulcer with Provider Comments: Type 2 Diabetes Mellitus with Foot Ulcer IHE Encounter Template Text not used by [place] Assessments - Encounter Diagnoses This section includes the primary and secondary diagnoses documented for the Encounter. Date/Time Primary/Secondary Diagnosis Name Provider Source Diagnosis Apr 07, 2021 PRIMARY Type 2 diabetes STARR RICHEY [place] 02:00 PM mellitus with foot HCS ulcer Apr 07, 2021 SECONDARY Charcot's joint, STARR RICHEY [place] 02:00 PM right ankle and HCS foot Apr 07, 2021 SECONDARY Type 2 diabetes STARR RICHEY [place] 02:00 PM mellitus with HCS unspecified complications Plan of Treatment: Future Appointments (+ 6 months) and Future Tests (+/- 45 days) The Plan of Treatment section includes future care activities for the patient from all [place] [facility] This section includes future appointments and future orders which are active, pending orscheduled.Future Appointments This section includes appointments that were scheduled to occur 6 months from the date of the Encounter, up to a maximum of 20 appointments. The data comes from all [place] treatment facilities. Appointment Date/Time Appointment Type Appointment Facili ty Name Apr 15, 2021 01:20 PM AMBULATORY - SURGERY [facility] S Apr 25, 2021 11:00 AM AMBULATORY - MEDICINE [facility] Apr 28, 2021 09:00 AM AMBULATORY - NONE [facility] Apr 28, 2021 09:45 AM AMBULATORY - NONE [facility] Apr 28, 2021 10:00 AM AMBULATORY - MEDICINE [facility] May 10, 2021 03:20 PM AMBULATORY - NONE [facility] May 11, 2021 11:45 AM AMBULATORY - MEDICINE [facility] May 11, 2021 12:00 PM AMBULATORY - MEDICINE [facility] May 11, 2021 01:00 PM AMBULATORY - MEDICINE [facility] CS May 19, 2021 02:30 PM AMBULATORY - NONE [facility] May 19, 2021 04:00 PM AMBULATORY - MEDICINE [facility] CS May 20, 2021 09:00 AM AMBULATORY - NONE [facility] May 20, 2021 10:00 AM AMBULATORY - SURGERY [facility] May 24, 2021 03:30 PM AMBULATORY - NONE [facility] Jun 02, 2021 02:40 PM AMBULATORY - MEDICINE [facility] CS Jun 06, 2021 02:30 PM AMBULATORY - NONE [facility] Jun 09, 2021 02:00 PM AMBULATORY - SURGERY [facility] June 21, 2021 01:45 PM AMBULATORY - NONE [facility] June 22, 2021 09:30 AM AMBULATORY - NONE [facility] June 22, 2021 12:30 PM AMBULATORY - NONE [facility] Active, Pending, and Scheduled Orders [...] 2021 02:31 PM Pharmacy - Clinic Infusion [facility] Order Lab Results: +/- 30 days of [...] Reference Range Comment Apr 28, 2021 03:12 [facility] COVID-19 AND FLU SCRN Spe cimen Type: NASOPHARYNGEAL PM PANEL (FLUVID) No comment enter ed. Ordering Provid er: CARIDAD DENNIS Report Released Date/Time: Apr 28, 2021 02:10 PM Reporting Lab: [facility] [address] [facility] [address] Performing Lab: [facility] [address] [facility] [address] [facility] [address] COVID-19 PCR (FLUVID) Not Detected Not D etected FLU A PCR (FLUVID) Not Detected Not Dete cted FLU B PCR (FLUVID) Not Detected Not Dete cted Apr 28, 2021 01:17 PM [facility] HEMOGLOBIN A1C Specim en Type: BLOOD No comment enter ed. Ordering Provid er: CARIDAD DENNIS Report Released Date/Time: Apr 25, 2021 12:00 PM Reporting Lab: [facility] [address] [facility] [address] Performing Lab: [facility] [address] [facility] [address] HEMOGLOBIN A1C 8.0 H 4.0-6.0 Apr 28, 2021 01:17 [facility] PROTHROMBIN TIME/INR Spec imen Type: PLASMA PM No comment enter ed. Ordering Provid er: CARIDAD DENNIS Report Released Date/Time: Apr 25, 2021 12:00 PM Reporting Lab: [facility] [address] [facility] [address] Performing Lab: [facility] [address] [facility] [address] .INR 1.1 0.8-1.1 .PT 13.2 H 9.4-12.5 Apr 28, 2021 01:17 PM [facility] CBC Specim en Type: BLOOD No comment enter ed. Ordering Provid er: CARIDAD DENNIS Report Released Date/Time: Apr 25, 2021 12:00 PM Reporting Lab: [facility] [address] [facility] [address] Performing Lab: [facility] [address] [facility] [address] WBC 4.06 4.0-11.0 RBC 5.41 4.6-6.2 HGB 14.8 13.5-17.9 HCT 47.0 41-54 MCV 86.9 80-100 MCH 27.4 27-33 MCHC 31.5 L 32.0-37.5 PLT 263 150-400 MPV 9.2 7.4-10.4 RDW 14.2 11.5-14.5 Apr 28, 2021 01:17 [facility] TSH W/REFLEX TO FREE Spec imen Type: PLASMA PM T4 No comment enter ed. Ordering Provid er: CARIDAD DENNIS Report Released Date/Time: Apr 25, 2021 12:00 PM Reporting Lab: [facility] [address] [facility] [address] Performing Lab: [facility] [address] [facility] [address] TSH 0.73 0.35-4.94 Apr 28, 2021 [facility] COMPREHENSIVE METABOLIC Spec imen Type: PLASMA 01:17 PM PANEL+MG No comment enter ed. Ordering Provid er: CARIDAD DENNIS Report Released Date/Time: Apr 25, 2021 12:00 PM Reporting Lab: [facility] [address] [facility] [address] Performing Lab: [facility] [address] CREATININE 0.7 0.7-1.2 UREA NITROGEN 16 8-26 [...] 2020 02:00 PM VA-TOBACCO [facility] Tobacco Use History This section includes a history of the smoking, or tobacco- related health factors, that were collected on or before the date of the Encounter. The data comes from the [place] facility where the Encounter took place. Date/Time Smoking Status/Tobacco Use Comment [facility] it July 09, 2020 02:00 PM VA-TOBACCO QUIT 15 YRS OR MORE [facility] Apr 17, 2019 02:39 PM INPT NO TOBACCO USE IN LAST 30 DAYS [facility] Feb 04, 2019 10:37 AM VA-TOBACCO NEVER USED [facility] Oct 15, 2018 02:43 PM [...] 03:28 PM VA-TOBACCO FORMER USER [place] [facility] Jan 30, 2018 03:28 PM [...] this document. The data comes from all [facility]. Date Advance Directives Provider Source May 29, 2017 CLINICAL WARNING CORNELIO FREITAS S [facility] May 16, 2017 ADVANCE DIRECTIVE CHITRASERENITY A [facility] May 16, 2017 ADVANCE DIRECTIVE DISCUSSION SERENITY [place]STRO [place] [facility] May 04, 2017 CLINICAL WARNING MAGO DIAMOND [facility] May 04, 2017 CLINICAL WARNING GAEL ROSARIO [facility] Apr 26, 2017 CLINICAL WARNING JENNIFER DE LEON [facility] Jan 01, 2017 CLINICAL WARNING AYDE WELLS [facility] Jun 09, 2004 ADVANCE DIRECTIVE DARYL VILLARREAL [facility] Jun 07, 2004 ADVANCE DIRECTIVE SHERYL HOLLOWAY [facility] Radiology Reports: +/- 30 days of the [...] the Encounter. The data comes from all [facility] facilities. Date/Time Radiology Report Provider Source Apr 28, 2021 09:06 AM MYOCARDIAL PERFUSION PHARMACOLOGIC STR ESS/REST: DARIN BAKER [facility] XAVIERGUSTABOCORBY GRAFF [id number] -[birth year] 8 M Exm Date: APR 28, 2021@09:06 Req Phys: CARIDAD DENNIS Pat Loc: [facility] PACT SAPPHIRE 4E (Req'g Lo Img Loc: [facility] Service: Unknown (Case [id number] COMPLETE) MYOCARDIAL PERFUSION (SPECT )-MULT(NM Detailed) CPT:92422 Reason for Study: CAD, PAD risk stratefication prior to surgery 05/02 (Case [id number] COMPLETE) TC-99M SESTAMIBI (CARDIOLIT E), PE(NM Detailed) CPT:A9500 (Case [id number] COMPLETE) CARDIOVASCULAR STRESS TEST (NM Detailed) CPT:08434 Clinical History: Is this patient on Observation Status? No surgery 05/02/21. please schedule prior if possi ble h/o CAD, PAD. limited ability to walk due to fo ot issues [place] IS NOT under investigation for COVID-19 or is COVID-19 negative 75 yo M with Responsible provider name and phon e number to notify for critical findings if other than user placing the order and pager listed below: User placing orders pag er: [phone] LAST CREATININE 0.6 L (12/15/20) Is the patient taking/taken dipyridamole/aggren ox in the last week? No Has patient taken theophylline product s in the last 3 days? No Patient has been educated not to consu me coffee, Sanka, tea or soft drinks 8 hours prior to test? Yes Report Status: Verified Date Reported: APR 28, 2021 Date Verified: APR 28, 2021 Aircraft Worker E-Sig:/ES/DARIN BAKER MD Report: Regadenoson myocardial perfusion [...] Staff: DARIN BAKER MD, RADIOLOGY STAFF PHYSICIAN (Georgina erifier) /SG Encounter Notes: All associated encounter notes This section contains the clinical notes associated to the Encounter. Date/Time Encounter Note(s) Provider Source Apr 07, 2021 01:48 PM WOUND CARE NOTE: ROSSISTARR Garay PIERRE IS [facility] LOCAL TITLE: WOUND CLINIC NOTE STANDARD TITLE: WOUND CARE NOTE DATE OF NOTE: APR 07, 2021@13:48 ENTRY DATE: APR 07, 2021@13:48:04 AUTHOR: STARR RICHEY EXP COSIGNER: URGENCY: STATUS: COMPLETED Chief complaint: Wound PERTINENT DIAGNOSIS COMPLICATING WOUND HEALING: DM, Charcot joint ASSESSMENT/PLAN -Impression: Wound is measuring smaller, but he has undermining again. He plans to have Charcot surgery on 05/02/2021. Prev ious 2 wounds resolved. ETIOLOGY: 1. Right DFU, Charcot joint -smaller, but there is undermining today -Signs and symptoms of infection: No -Arterial flow status: a distal SFA and poplite al angioplasty, tibioperoneal trunk angioplasty on 06/15. -Offloading: He is using his [place] boot at times. He also has a knee roller available to him. -Treatment Plan: Will hold on placing a graft b ecause he is planning on having surgery on his [place] t joint. Will apply Mepilex border to the wound and he can change it every two days Debridement: Excisional debridement of the righ t foot ulcer was recommended and after consen t was obtain, and topical 2% lidocaine was applied, under clean condition, using a #15 scalpel, the devitalized muscle in the ulcer base and the ulcer margins were sharply excised for a total sq. cm of 1.4. Following debridement, there was a decrease in [...] 3. DM, HEMOGLOBIN A1C 9.5 H (12/15/20)- [facility] ed blood sugar control for wound healing. -PCP increased medication -PAVE 3 Risk -He is using the Podimetric mat with his other foot and followed by Dr. Brock. 4. Charcot joint, - He plans to have surgery on 05/02 at [facility] in [place] 5. Venous hypertension, left leg minimal edema 6. Patient will be discharged from the [facility]. Will transfer care to [facility] podiatry for his surgery. Visit time was 40 minutes with more than 50% in care and coordination of care. HISTORY OF PRESENT ILLNESS: Today, he states that he has an appointment for surgery on his Charcot joint at [facility]. He continues to ch angelo the dressing every other day with Mepilex border. The drainage is unchanged and he is not complaining of pain. He continues to use the Podimetric mat PAST MEDICAL HISTORY: Active problems - Computerized Problem List is t he source for the followin. Osteoarthritis - C-spine - L-spine; chronic low back pain on opioids 2. Obstructive sleep apnea - on CPAP 3. Gastroesophageal reflux disease 4. Restless legs syndrome 5. Nephrolithiasis 6. Venous stasis - venous pump 7. Depression 8. coronary artery disease - STEMI; CABG x 4 [...] -> inc LFT, no t on anticoag 03/23 hemoptysis 12. Essential tremor - on propranolol 13. Anemia - iron deficiency 08/06 14. Hemoptysis - and infiltrates; ILD - bronchoscopy 09/05 - presumed MTX toxicity 15. Dysphagia - EGD 11/06 16. Aortic valve stenosis - mild; echo 12/06 17. 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 Primary erectile dysfunction 19. Charcot's joint of foot SURGICAL HISTORY: Surgeries Past Year: SEP 20, 2 021, Proc: CE IOL OU SOCIAL HISTORY: Living Situation: Lives alone Home Care: none, is perusing a different compan y Tobacco use: No Alcohol use: rarely ALLERGY: FACILITY ALLERGY/ADR -------- [facility] NO KNOWN ALLERGIES MEDICATIONS: Reviewed Physical Exam: General: In no apparent distress Head: Normocephalic atraumatic Psychiatric: Cooperative Respiratory: unlabored breathing Cardiovascular: EDEMA: 0 PULSES: not palpable Neurological: Wound Pain: no Integumentary: WOUND ASSESSMENT LOCATION: Right plantar foot TYPE OF WOUND: Neuropathic EXTENT OF TISSUE LOSS: Full thickness WOUND BASE: granular DIMENSIONS Wound Size: 1.0cm L x 1.4 cm W x.3 cm deep Undermining .4 Tunnelin EXUDATE: moderate serosanguinous ODOR: no WOUND EDGES: attached with large amount of call ous PERIWOUND SKIN: hyperkeratotic tissue SIGNS & SYMPTOMS OF LOCAL INFECTION: absent LOCATION: Right plantar foot, lateral wound, re solved LABS: Collection DT Specimen Test Name Result Units Re f Range 05/03/2020 12:42 SERUM PRE-ALBUMIN 25.8 mg/dL 17 .7 - 36.3 ALBUMIN 3.6 (12/14/20) HEMOGLOBIN A1C 8.0 H (03/01/21) HGB 13.4 L (03/01/21) Metabolic Panel SODIUM 137 (12/15/20) POTASSIUM 4.3 (12/15/20) UREA NITROGEN 12 (12/15/20) CREATININE 0.6 L (12/15/20) GLUCOSE 277 H (12/15/20) ESTIMATED GFR(eGFR) >60 (12/15/20) COMPUTED CREATININE CLEARANCE____ AST/SGOT 10 (12/14/20) ALT/SGPT 11 (12/14/20) ALBUMIN 3.6 (12/14/20) Complete Blood Count White count: WBC 5.58 (03/01/21) Hemoglobin: HGB 13.4 L (03/01/21) Hematocrit: HCT 43.1 (03/01/21) Platelets: PLT 286 (03/01/21) IRON 36 L (12/15/20) TRANSFERRIN 237 (12/15/20) Inflammatory Markers C-REACTIVE PROTEIN 9.22 H (03/01/21) WESTERGREN 32 H (05/03/20) Collection DT Specimen [...] measured as follo ws: Right lower extremity: GREENSMAN prox: 98 cm/sec GREENSMAN mid: 112 cm/sec GREENSMAN dis rodriguez: 91 cm/sec PFA: 79 cm/sec SFA prox: 87 cm/sec SFA mid: 87 cm/sec SFA distal: 92 cm/sec Pop prox: 109 cm/sec Pop mid: 97 cm/s ec Pop distal: 133 cm/sec FRED prox calf: 109 cm/sec Common trunk: 172 cm/ sec VALIDATION ANALYST ankle: 96 cm/sec FRED ankle: 90 cm/sec [...] measured as follo ws: Right lower extremity: GREENSMAN prox: 98 cm/sec GREENSMAN mid: 112 cm/sec GREENSMAN dis rodriguez: 91 cm/sec PFA: 79 cm/sec SFA prox: 87 cm/sec SFA mid: 87 cm/sec SFA distal: 92 cm/sec Pop prox: 109 cm/sec Pop mid: 97 cm/s ec Pop distal: 133 cm/sec FRED prox calf: 109 cm/sec Common trunk: 172 cm/ sec VALIDATION ANALYST ankle: 96 cm/sec FRED ankle: 90 cm/sec Waveforms are multiphasic throughout . Impression: 1. Right leg arteries: Patent lower extremity a rteries without focal hemodynamically significant stenosis. The angioplasty sites in the SFA, popliteal and tibioperoneal trunk a rteries are patent. Patient: Corby Mojica Date: 03/03/2020 Wound Instructions: 1. Cleanse the wound with wound cleanser or norm al saline 2. Cover with Mepilex border 3. Change every two days Other Instructions: Do not remove your bandage when you bathe. *You can use the cast boot that we gave you. *You can also use press and seal, or a bag taped on to keep the bandage dry. Use your special footwear, a wheelchair or knee roller to keep pressure off your foot. Not putting any pressure on it is req uired for the wound to heal. If you need more supplies, call the pharmacy for a refill or call our office. Your supplies were ordered. Check out at the front man and make you r follow up appointment with me in 4-5 weeks. Starr Leal APRN, FELISHA, JAMAR /vinicio/ STARR RICHEY NP NURSE PRACTITIONER Signed: 03/03/2021 17:12 Patient: Corby Mojica Date: 04/07/2021 Right foot Wound Instructions: 1. Cleanse the wound with wound cleanser 2. Apply Mepilex border 3. Change every other day Other Instructions: If you need more supplies, call the pharmacy for a refill or call our office. Your supplies were ordered. They will come in th e mail No need to follow up with me because you will be having surgery on the foot. Starr Leal APRN, FELISHA, JAMAR /vinicio/ STARR RICHEY NP NURSE PRACTITIONER Signed: 04/07/2021 14:03
--- OUTSIDE RECORDS SUMMARY | 2021-12-23 17:02 | XMS_ITS | Encounter Summary ---
:1945 Author Organization [facility] Address [address] [place] [id number] Support Name Relationship Address Phone FRANCES GANDARA Unavailable [address] [place] [address] FRANCES GANDARA Unavailable [address] [place] [address] FRANCES GANDARA Unavailable [address] [place] [address] FRANCES GANDARA Unavailable [address] [place] [address] Insurance Providers: All historical and current Section [...] MEDICARE MEDICARE PART Apr 19, PART A [id number] Whit MOJICA (WNR) (M) A 2007 50A [phone] JESSICA MEDICARE MEDICARE PART Apr 19, PART A [id number] Whit MOJICA (WNR) (M) A 2007 [id number] [phone] JESSICA Selected Encounter This section includes the information on record at [place] for the Encounter. Date/Time Encounter Type Encounter Description Reason Provider Source Feb 23, 2021 09:00 Outpatient Encounter COMMUNITY CARE AM CONSULT IHE Encounter Template Text not used [...] 20 appointments. The data comes from all [facility]. Appointment Date/Time Appointment Type Appointment Facili ty Name Feb 28, 2021 08:00 AM AMBULATORY - NONE [facility] Mar 01, 2021 07:45 AM AMBULATORY - SURGERY [facility] Mar 01, 2021 08:43 AM AMBULATORY - MEDICINE [facility] Mar 01, 2021 09:44 AM AMBULATORY - NONE [facility] Mar 02, 2021 02:00 PM AMBULATORY - REHAB MEDICINE [facility] Mar 03, 2021 01:00 PM AMBULATORY - SURGERY [facility] Mar 08, 2021 01:00 PM AMBULATORY - NONE [facility] Mar 09, 2021 10:45 AM AMBULATORY - SURGERY [facility] Mar 09, 2021 11:30 AM AMBULATORY - NONE [facility] Mar 10, 2021 10:45 AM AMBULATORY - NONE [facility] Mar 17, 2021 11:30 AM AMBULATORY - NONE [facility] Mar 22, 2021 02:30 PM AMBULATORY - NONE [facility] Mar 23, 2021 07:00 AM AMBULATORY - NONE [facility] Mar 28, 2021 02:00 PM AMBULATORY - MEDICINE [facility] Mar 31, 2021 07:00 AM AMBULATORY - NONE [facility] Mar 31, 2021 02:00 PM AMBULATORY - REHAB MEDICINE [facility] Apr 07, 2021 01:00 PM AMBULATORY - SURGERY [facility] Apr 15, 2021 01:20 PM AMBULATORY - SURGERY [facility] Apr 25, 2021 11:00 AM AMBULATORY - MEDICINE [facility] Apr 28, 2021 09:00 AM AMBULATORY - NONE [facility] Active, Pending, and Scheduled [...] the Encounter. The data comes from all [facility]. Test Date/Time Test Type Test Details Facility Name Jan 25, 2021 06:15 Laboratory - COVID-19 DIAGNOSTIC PANEL MIN [facility] AM Chemistry Order (CEPHEID) NASOPHARYNGEAL SWAB WC ONCE Lab Results: +/- 30 days of the encounter This section includes the Chemistry and Hematology Lab Results on record with [place] for the patient. Radiology Reports and Pathology Reports are provided separately, in subsequent sections.Lab Results This section contains the Chemistry/Hematology Results that were resulted 30 days before or 30 daysafter the date of the Encounter. Date/Time Source Result Type Result - Unit Interpretation Reference Range Comment Mar 01, 2021 09:31 [facility] EXTRA MINT TUBE Specimen Type: PLASMA AM No comment enter ed. Ordering Provid er: AMARJIT OWEN Report Released Date/Time: Mar 01, 2021 09:31 AM Reporting Lab: [facility] [address] [facility] [address] Performing Lab: [facility] [address] [facility] [address] EXTRA MINT TUBE RECEIVED Mar 01, 2021 09:31 [facility] C-REACTIVE PROTEIN Specim en Type: SERUM AM No comment enter ed. Ordering Provid er: AMARJIT OWEN Report Released Date/Time: Mar 01, 2021 09:12 AM Reporting Lab: [facility] [address] [facility] [address] Performing Lab: [facility] [address] [facility] [address] C-REACTIVE PROTEIN 9.22 H <5.00 Mar 01, 2021 09:31 AM [facility] CBC & DIFF Specim en Type: BLOOD Comment: Automa sarthak Differential Performed Ordering Provid er: AMARJIT OWEN Report Released Date/Time: Mar 01, 2021 09:12 AM Reporting Lab: [facility] [address] [facility] [address] Performing Lab: [facility] [address] [facility] [address] WBC 5.58 4.0-11.0 RBC 4.90 4.6-6.2 HGB [...] 0.02 0-0.1 Mar 01, 2021 09:31 AM [facility] HEMOGLOBIN A1C Specim en Type: BLOOD No comment enter ed. Ordering Provid er: CARIDAD DENNIS Report Released Date/Time: Mar 01, 2021 04:01 PM Reporting Lab: [facility] [address] [facility] [facility] [address] Performing Lab: [facility] [address] HEMOGLOBIN A1C 8.0 H 4.0-6.0 Vital Signs: All taken on the encounter date This section contains inpatient and outpatient Vital Signs collected on the date of the Encounter. Date/Time Temperature Pulse Blood Respiratory SP02 Pain Height Weight Joseph dy Source Pressure Rate Mass Index Feb 23, 98.4 F 76 156/82 16 /min 96 % [place] 2021 02:20 /min mm[Hg] IS [facility] Social History: Smoking Status (Most current) and Tobacco Use (All prior to encounter date) This section includes the most current, and the historical, smoking and tobacco-related health factors from the [place] facility where the Encounter took place.Current Smoking Status This section includes the most current smoking, or tobacco-related health factor, from the [place] facility where the Encounter took place. Date/Time Current Smoking Status Comment Facility July 09, 2020 02:00 PM VA-TOBACCO FORMER USER [facility] Tobacco Use History This section includes a history of the smoking, or tobacco- related health factors, that were collected on or before the date of the Encounter. The data comes from the [place] facility where the Encounter took place. Date/Time Smoking Status/Tobacco Use Comment [facility] July 09, 2020 02:00 PM VA-TOBACCO QUIT 15 YRS OR MORE [facility] Apr 17, 2019 02:39 PM INPT NO TOBACCO USE IN LAST 30 DAYS [facility] Feb 04, 2019 10:37 AM [place]-TOBACCO NEVER USED [facility] Oct 15, 2018 02:43 PM INPT NO TOBACCO USE IN LAST 30 DAYS [facility] Oct 13, 2018 11:30 PM INPT NO TOBACCO USE IN LAST 30 DAYS [facility] Sep 02, 2018 05:50 PM INPT NO TOBACCO USE IN LAST 30 DAYS [facility] Aug 12, 2018 07:28 PM INPT NO TOBACCO USE IN LAST 30 DAYS [facility] Jan 30, 2018 03:28 PM [facility] Jan 30, 2018 03:28 PM VA-TOBACCO QUIT 15 YRS OR MORE [facility] May 29, 2017 04:53 PM INPT NO TOBACCO USE IN LAST 30 DAYS [facility] Apr 25, 2017 10:44 PM INPT NO TOBACCO USE IN LAST 30 DAYS [facility] Jan 01, 2017 06:40 PM INPT NO TOBACCO USE IN LAST 30 DAYS [facility] Dec 21, 2016 02:43 PM FORMER TOBACCO USER 7Y OR GREATER [facility] Sep 24, 2013 08:52 AM FORMER TOBACCO USER 7Y OR GREATER [facility] Advance Directives: All historical and current Section Date Range: From patient's date of to the date document was created. This section includes ALL of a patient's completed or amended [place] Advance and Rescinded Directives. The entries below indicate that a directive exists for the patient, but an actual copy is not included with this document. The data comes from all [facility]. Date Advance Directives Provider Source May 29, 2017 CLINICAL WARNING CORNELIO FREITAS S [facility] May 16, 2017 ADVANCE DIRECTIVE SERENITY BUENROSTRO [facility] May 16, 2017 ADVANCE DIRECTIVE DISCUSSION SERENITY BUENROSTRO [place] [facility] May 04, 2017 CLINICAL WARNING MAGO DIAMOND [facility] May 04, 2017 CLINICAL WARNING GAEL ROSARIO [facility] Apr 26, 2017 CLINICAL WARNING JENNIFER DE LEON [facility] Jan 01, 2017 CLINICAL WARNING AYDE WELLS [facility] Jun 09, 2004 ADVANCE DIRECTIVE DARYL VILLARREAL [facility] Jun 07, 2004 ADVANCE DIRECTIVE SHERYL HOLLOWAY [facility] Radiology Reports: +/- 30 days of the [...] the Encounter. The data comes from all [place] treatment facilities. Date/Time Radiology Report Provider Source Mar 01, 2021 09:44 AM US LOWER EXTREMITY VEIN (UNILATERAL) ( P): XIAO HUGGINS [facility] JESSICA MOJICA [id number] -[birth year] 8 M Exm Date: MAR 01, 2021@09:44 Req Phys: AMARJIT OWEN Pat Loc: [facility] DE[facility] WALK-IN (Re Img Loc: Ultrasound Imaging Service: Unknown (Case [id number] COMPLETE) US EXTREMITY VEINS UNILAT (U S Detailed) CPT:33387 Proc Modifiers : LEFT Reason for Study: please look for DVT Clinical History: [place] IS NOT under investigation for COVID-19 or is COVID-19 negative Swelling, erythema, tenderness incl along deep veins. NOt responsive to antibiotic course. Wells score fo r DVT = 5 Responsible provider name and phone number to n otify for critical findings if other than user placing the order a nd pager listed below: User placing orders pager: [phone] LAST CREATININE 0.6 L (12/15/20) Report Status: Verified Date Reported: MAR 01, 2021 Date Verified: MAR 01, 2021 Sdv Pilot/Navigator/Dds Operator E-Sig:/ES/XIAO HUGGINS MD Report: Duplex Ultrasound [...] Primary Interpreting Staff: XIAO HUGGINS MD, RADIOLOGIST (Sdv Pilot/Navigator/Dds Operator) Primary Interpreting Resident: JANNET JOSEPH, ASTROCHEMIST /ARM
--- OUTSIDE RECORDS SUMMARY | 2021-12-23 17:04 | XMS_ITS | Encounter Summary ---
:1945 Author Organization [facility] Address [address] [place] [address] Support Name Relationship Address Phone FRANCES GANDARA Unavailable [address] [place] [address] FRANCES GANDARA Unavailable [address] [place] [address] FRANCES GANDARA Unavailable [address] [place] [address] FRANCES GANDARA Unavailable [address] [place] [address] Insurance Providers: All historical and current Section [...] MEDICARE MEDICARE PART Apr 19, PART A [id number] Whit MOJICA (WNR) (M) A 2007 50A [phone] JESSICA MEDICARE MEDICARE PART Apr 19, PART A [id number] 800 Whit MOJICA (WNR) (M) A 2007 [id number] [phone] JESSICA Selected Encounter This section includes the information on record at [place] for the Encounter. Date/Time Encounter Type Encounter Description Reason Provider Source Apr 13, 2021 10:41 Outpatient Encounter TELEPHONE TRIAGE AM IHE Encounter Template Text not used by [place] Plan of Treatment: Future Appointments (+ 6 [...] 15, 2021 01:20 PM AMBULATORY - SURGERY [facility] Apr 25, 2021 11:00 AM AMBULATORY - MEDICINE [facility] Apr 28, 2021 09:00 AM AMBULATORY - NONE [facility] Apr 28, 2021 09:45 AM AMBULATORY - NONE [facility] Apr 28, 2021 10:00 AM AMBULATORY - MEDICINE [facility] May 10, 2021 03:20 PM AMBULATORY - NONE [facility] May 11, 2021 11:45 AM AMBULATORY - MEDICINE [facility] May 11, 2021 12:00 PM AMBULATORY - MEDICINE [facility] May 11, 2021 01:00 PM AMBULATORY - MEDICINE [facility] May 19, 2021 02:30 PM AMBULATORY - NONE [facility] May 19, 2021 04:00 PM AMBULATORY - MEDICINE [facility] May 20, 2021 09:00 AM AMBULATORY - NONE [facility] May 20, 2021 10:00 AM AMBULATORY - SURGERY [facility] May 24, 2021 03:30 PM AMBULATORY - NONE [facility] Jun 02, 2021 02:40 PM AMBULATORY - MEDICINE [facility] Jun 06, 2021 02:30 PM AMBULATORY - NONE [facility] Jun 09, 2021 02:00 PM AMBULATORY - SURGERY [facility] June 21, 2021 01:45 PM AMBULATORY - NONE [facility] June 22, 2021 09:30 AM AMBULATORY - NONE [facility] June 22, 2021 12:30 PM AMBULATORY - NONE [facility] Active, Pending, and Scheduled Orders This [...] The data comes from all [place] treatment [facility]. Test Date/Time Test Type Test Details Facility Name May 11, 2021 02:31 PM Pharmacy - Clinic Infusion [facility] Order Lab Results: +/- 30 days [...] Reference Range Comment Apr 28, 2021 03:12 [facility] COVID-19 AND FLU SCRN Spe cimen Type: NASOPHARYNGEAL PM PANEL (FLUVID) No comment enter ed. Ordering Provid er: GISELLE MARTINEZ Report Released Date/Time: Apr 28, 2021 02:10 PM Reporting Lab: [facility] [address] [facility] [address] Performing Lab: [facility] [address] [facility] [address] COVID-19 PCR (FLUVID) Not Detected Not D etected FLU A PCR (FLUVID) Not Detected Not Dete cted FLU B PCR (FLUVID) Not Detected Not Dete cted Apr 28, 2021 01:17 PM [facility] HEMOGLOBIN A1C Specim en Type: BLOOD No comment enter ed. Ordering Provid er: GISELLE MARTINEZ Report Released Date/Time: Apr 25, 2021 12:00 PM Reporting Lab: [facility] [address] [facility] [address] Performing Lab: [facility] [address] [facility] [address] HEMOGLOBIN A1C 8.0 H 4.0-6.0 Apr 28, 2021 01:17 [facility] TSH W/REFLEX TO FREE Spec imen Type: PLASMA PM T4 No comment enter ed. Ordering Provid er: GISELLE MARTINEZ Report Released Date/Time: Apr 25, 2021 12:00 PM Reporting Lab: [facility] [address] [facility] [address] Performing Lab: [facility] [address] [facility] [address] TSH 0.73 0.35-4.94 Apr 28, 2021 01:17 PM [facility] CBC Specim en Type: BLOOD No comment enter ed. Ordering Provid er: GISELLE MARTINEZ Report Released Date/Time: Apr 25, 2021 12:00 PM Reporting Lab: [facility] [address] [facility] [address] Performing Lab: [facility] [address] [facility] [address] WBC 4.06 4.0-11.0 RBC 5.41 4.6-6.2 HGB 14.8 13.5-17.9 HCT 47.0 41-54 MCV 86.9 80-100 MCH 27.4 27-33 MCHC 31.5 L 32.0-37.5 PLT 263 150-400 MPV 9.2 7.4-10.4 RDW 14.2 11.5-14.5 Apr 28, 2021 01:17 [facility] PROTHROMBIN TIME/INR Spec imen Type: PLASMA PM No comment enter ed. Ordering Provid er: GISELLE MARTINEZ Report Released Date/Time: Apr 25, 2021 12:00 PM Reporting Lab: [facility] [address] [facility] [address] Performing Lab: [facility] [address] .INR 1.1 0.8-1.1 .PT 13.2 H 9.4-12.5 Apr 28, 2021 [facility] COMPREHENSIVE METABOLIC Spec imen Type: PLASMA 01:17 PM PANEL+MG No comment enter ed. Ordering Provid er: GISELLE MARTINEZ Report Released Date/Time: Apr 25, 2021 12:00 PM Reporting Lab: [facility] [address] [facility] [address] Performing Lab: [facility] [address] [facility] [address] CREATININE 0.7 0.7-1.2 UREA NITROGEN 16 8-26 [...] smoking and tobacco-related health factors from the [facility] where the Encounter took place.Current Smoking Status This section includes the most current smoking, or tobacco-related health factor, from the [place] facility where the Encounter took place. Date/Time Current Smoking Status Comment Facility July 09, 2020 02:00 PM VA-TOBACCO FORMER USER [facility] Tobacco Use History This section includes a history of the smoking, or tobacco- related health factors, that were collected on or before the date of the Encounter. The data comes from the [facility] where the Encounter took place. Date/Time Smoking Status/Tobacco Use Comment [facility] July 09, 2020 02:00 PM VA-TOBACCO QUIT 15 YRS OR MORE [facility] Apr 17, 2019 02:39 PM INPT NO TOBACCO USE IN LAST 30 DAYS [facility] Feb 04, 2019 10:37 AM VA-TOBACCO NEVER USED [facility] Oct 15, 2018 02:43 PM INPT [...] 03:28 PM VA-TOBACCO FORMER USER [facility] Jan 30, 2018 03:28 PM [place]-TOBACCO QUIT 15 YRS OR MORE [facility] [...] 29, 2017 CLINICAL WARNING CORNELIO FREITAS S [facility] May 16, 2017 ADVANCE DIRECTIVE SERENITY BUENROSTRO A [facility] May 16, 2017 ADVANCE DIRECTIVE DISCUSSION [facility]STRO [place] [facility] May 04, 2017 CLINICAL WARNING MAGO DIAMOND [place] [facility] May 04, 2017 CLINICAL WARNING GAEL ROSARIO [facility] Apr 26, 2017 CLINICAL WARNING JENNIFER DE LEON [place] [facility] Jan 01, 2017 CLINICAL WARNING AYDE WELLS [facility] Jun 09, 2004 ADVANCE DIRECTIVE DARYL VILLARREAL [facility] Jun 07, 2004 ADVANCE DIRECTIVE HOLLOWAY,SHERYL JADILE [facility] Radiology Reports: +/- 30 [...] MYOCARDIAL PERFUSION PHARMACOLOGIC STR ESS/REST: DARIN BAKER [facility] HEATH MOJICAY PRERNA [id number] -[birth year] 8 M Exm Date: APR 28, 2021@09:06 Req Phys: GISELLE MARTINEZ Pat Loc: [facility] 4E (Req'g Lo Img Loc: NUC MED Service: Unknown (Case [id number] COMPLETE) MYOCARDIAL PERFUSION (SPECT )-MULT(NM Detailed) CPT:37742 Reason for Study: CAD, PAD risk stratefication prior to surgery 05/02 (Case 2145 COMPLETE) TC-99M SESTAMIBI (CARDIOLIT E), PE(NM Detailed) CPT:A9500 (Case 2146 COMPLETE) CARDIOVASCULAR STRESS TEST (NM Detailed) CPT:79839 Clinical History: Is this patient on Observation Status? No surgery 05/02/21. please schedule prior if possi ble h/o CAD, PAD. limited ability to walk due to fo ot issues [place] IS NOT under investigation for COVID-19 or is COVID-19 negative 75 yo M with Responsible provider name and phon e number to notify for critical findings if other than user placing the order and pager listed below: User placing orders pag er: [phone] LAST CREATININE 0.6 L (12/15/20) Is the patient taking/taken dipyridamole/aggren ox in the last week? No Has patient taken theophylline product s in the last 3 days? No Patient has been educated not to consu me coffee, Sanka, tea or soft drinks 8 hours prior to test? Yes Report Status: Verified Date Reported: APR 28, 2021 Date Verified: APR 28, 2021 Client Services Associate E-Sig:/ES/DARIN BAKER MD Report: Regadenoson myocardial perfusion [...] BAKER MD, RADIOLOGY STAFF PHYSICIAN (V erifier) / Encounter Notes: All associated encounter notes This section contains the clinical notes associated to the Encounter. Date/Time Encounter Note(s) Provider Source Apr 13, 2021 10:42 AM REPORT OF CONTACT: PATRIZIA STODDARD [facility] LOCAL TITLE: PATIENT CONTACT NOTE D STANDARD TITLE: REPORT OF CONTACT DATE OF NOTE: APR 13, 2021@10:42 ENTRY DATE: APR 13, 2021@10:42:08 AUTHOR: YOEL ASHLEY,EDUARDO EXP COSIGNER: URGENCY: STATUS: COMPLETED PATIENT CONTACT NOTE Has ADDENDA Medicine Pre-Op Type of Contact: Dinah/Head Strength And Conditioning Coach Surgeon's Name: Dr.Trent Copeland Type of Surgery: Right Foot Place of Surgery: [facility] Date of Scheduled Surgery: Apr Date Pre-op Needs to be Completed by: Apr Date of Last H&P Exam (if known): Point of Contact, Phone and Fax # to Send Pre-op Exam Results: Dinah/ Surg Cord. PH# [phone] /FAX [phone] Per Dinah:Covid test and pre-ops needed 3-4 days before surgery /vinicio/ PATRIZIA RAMIREZ VISN23 [facility] MSA Signed: 04/13/2021 10:54 Receipt Acknowledged By: 04/13/2021 11:00 /es/ STEVIE GUARDADO/Baljinder Martin breadman ext [phone] for [facility] 04/15/2021 09:01 /es/ KAYLAH KO [facility] 04/14/2021 ADDENDUM STATUS: COMPLETED Patient called in to 4E, and I scheduled 04/25 [facility] 4E appt for pre op. Per above note, does patient need orders for Covid t est for pre op? /es/ PRERNA LORENZO WOODWORKING MACHINE FEEDER Signed: 04/14/2021 16:11 Receipt Acknowledged By: 04/14/2021 16:19 /es/ FABY Pedroza weather algorithm scientist 04/14/2021 17:15 /es/ Giselle Martinez MD Staff Physician 04/14/2021 ADDENDUM STATUS: COMPLETED call to . left message that usually the [facility] organizes this and that he should follow up with them - that way they can control when it gets done, ensure results are received and type of te st they want. /vinicio/ FABY Pedroza weather algorithm scientist Signed: 04/14/2021 16:24 04/28/2021 ADDENDUM STATUS: COMPLETED Per PCP, covid test ordered for today, w ill go to 1U for this - he states a test 4-5 days prior to surgery was fine. will add PCP and RN coverage so know where to fax packet of all documents onc e clearance is finalized. /vinicio/ Rainer Schofield RNC weather algorithm scientist Signed: 04/28/2021 14:06 Receipt Acknowledged By: * AWAITING SIGNATURE * AIRAM GARCIA 04/28/2021 14:14 /es/ Giselle Martinez MD Staff Physician
--- OUTSIDE RECORDS SUMMARY | 2021-12-23 17:06 | XMS_ITS | Encounter Summary ---
:1945 Author Organization [facility] Address [address] [place] [id number] Support Name Relationship Address Phone FRANCES GANDARA Unavailable [address] [place] [address] FRANCES GANDARA Unavailable [address] [place] [address] FRANCES GANDARA Unavailable [address] [place] [address] FRANCES GANDARA Unavailable [address] [place] [address] Insurance Providers: All historical and current Section [...] MEDICARE MEDICARE PART Apr 19, PART A [id number] [place] (WNR) (M) A 2007 [id number] [phone] JESSICA MEDICARE MEDICARE PART Apr 19, PART A [id number] [address] [place] (WNR) (M) A 2007 [id number] [phone] JESSICA Selected Encounter This section includes the information on record at [place] for the Encounter. Date/Time Encounter Type Encounter Description Reason Provider Source Apr 13, 2021 02:39 Outpatient Encounter PRIMARY CARE/MEDICINE PM [facility] Encounter Template Text not used by [place] Plan of Treatment: Future Appointments (+ 6 [...] 20 appointments. The data comes from all [place] treatment facilities. Appointment Date/Time Appointment Type Appointment Facili ty Name Apr 15, 2021 01:20 PM AMBULATORY - SURGERY [facility] Apr 25, 2021 11:00 AM AMBULATORY - MEDICINE [facility] Apr 28, 2021 09:00 AM AMBULATORY - NONE [facility] Apr 28, 2021 09:45 AM AMBULATORY - NONE [facility] Apr 28, 2021 10:00 AM AMBULATORY - MEDICINE [facility] May 10, 2021 03:20 PM AMBULATORY - NONE [facility] May 11, 2021 11:45 AM AMBULATORY - MEDICINE [facility] May 11, 2021 12:00 PM AMBULATORY - MEDICINE [facility] May 11, 2021 01:00 PM AMBULATORY - MEDICINE [facility] May 19, 2021 02:30 PM AMBULATORY - NONE [facility] May 19, 2021 04:00 PM AMBULATORY - MEDICINE [facility] May 20, 2021 09:00 AM AMBULATORY - NONE [facility] May 20, 2021 10:00 AM AMBULATORY - SURGERY [facility] May 24, 2021 03:30 PM AMBULATORY - NONE [facility] Jun 02, 2021 02:40 PM AMBULATORY - MEDICINE [facility] Jun 06, 2021 02:30 PM AMBULATORY - NONE [facility] Jun 09, 2021 02:00 PM AMBULATORY - SURGERY [facility] June 21, 2021 01:45 PM AMBULATORY - NONE [facility] June 22, 2021 09:30 AM AMBULATORY - NONE [facility] June 22, 2021 12:30 PM [facility] [...] the Encounter. The data comes from all [place] treatment [facility]. Test Date/Time Test Type Test Details Facility Name May 11, 2021 02:31 PM Pharmacy - Clinic Infusion [facility] Order Lab Results: +/- 30 days of the encounter This section includes the Chemistry and Hematology Lab Results on record with [place] for the patient. Radiology Reports and Pathology Reports are provided separately, in subsequent sections.Lab Results This section contains the Chemistry/Hematology Results that were resulted 30 days before or 30 daysafter the date of the Encounter. Date/Time Source Result Type Result - Unit Interpretation Reference Range Comment Apr 28, 2021 03:12 [facility] COVID-19 AND FLU SCRN Spe cimen Type: NASOPHARYNGEAL PM PANEL (FLUVID) No comment enter ed. Ordering Provid er: CARIDAD DENNIS Report Released Date/Time: Apr 28, 2021 02:10 PM Reporting Lab: [facility] [address] [facility] [address] Performing Lab: [facility] [address] COVID-19 PCR (FLUVID) Not Detected Not D etected FLU A PCR (FLUVID) Not Detected Not Dete cted FLU B PCR (FLUVID) Not Detected Not Dete cted Apr 28, 2021 01:17 PM [facility] CBC Specim en Type: BLOOD No comment enter ed. Ordering Provid er: CARIDAD DENNIS Report Released Date/Time: Apr 25, 2021 12:00 PM Reporting Lab: [facility] [address] [facility] [address] Performing Lab: [facility] [address] WBC 4.06 4.0-11.0 RBC 5.41 4.6-6.2 HGB 14.8 13.5-17.9 HCT 47.0 41-54 MCV 86.9 80-100 MCH 27.4 27-33 MCHC 31.5 L 32.0-37.5 PLT 263 150-400 MPV 9.2 7.4-10.4 RDW 14.2 11.5-14.5 Apr 28, 2021 01:17 [facility] TSH W/REFLEX TO FREE Spec imen Type: PLASMA PM T4 No comment enter ed. Ordering Provid er: CARIDAD DENNIS Report Released Date/Time: Apr 25, 2021 12:00 PM Reporting Lab: [facility] [address] [facility] [address] Performing Lab: [facility] [address] TSH 0.73 0.35-4.94 Apr 28, 2021 01:17 [facility] PROTHROMBIN TIME/INR Spec imen Type: PLASMA PM No comment enter ed. Ordering Provid er: SONNYCARIDAD NARCISO Report Released Date/Time: Apr 25, 2021 12:00 PM Reporting Lab: [facility] [address] [facility] [address] Performing Lab: [facility] [address] [facility] [address] .INR 1.1 0.8-1.1 .PT 13.2 H 9.4-12.5 Apr 28, 2021 01:17 PM [facility] HEMOGLOBIN A1C Specim en Type: BLOOD No comment enter ed. Ordering Provid er: CARIDAD DENNIS Report Released Date/Time: Apr 25, 2021 12:00 PM Reporting Lab: [facility] [address] Performing Lab: [facility] [address] HEMOGLOBIN A1C 8.0 H 4.0-6.0 Apr 28, 2021 [facility] COMPREHENSIVE METABOLIC Spec imen Type: PLASMA 01:17 PM PANEL+MG No comment enter ed. Ordering Provid er: CARIDAD DENNIS Report Released Date/Time: Apr 25, 2021 12:00 PM Reporting Lab: [facility] [address] [facility] [address] Performing Lab: [facility] [address] CREATININE 0.7 0.7-1.2 UREA NITROGEN 16 8-26 [...] smoking and tobacco-related health factors from the [place] facility where the Encounter took place.Current Smoking Status This section includes the most current smoking, or tobacco-related health factor, from the [facility] facility where the [facility] took place. Date/Time Current Smoking Status Comment Facility July 09, 2020 02:00 PM VA-TOBACCO FORMER USER [facility] Tobacco Use History This section includes a history of the smoking, or tobacco- related health factors, that were collected on or before the date of the Encounter. The data comes from the [facility] where the Encounter took place. Date/Time Smoking Status/Tobacco Use Comment [facility] it July 09, 2020 02:00 PM VA-TOBACCO QUIT 15 YRS OR MORE [facility] Apr 17, 2019 02:39 PM INPT NO TOBACCO USE IN LAST 30 DAYS [facility] Feb 04, 2019 10:37 AM [facility]AC[facility] Oct 15, 2018 02:43 PM [...] 2018 03:28 PM VA-TOBACCO FORMER USER [facility] Jan 30, 2018 03:28 PM VA-TOBACCO [...] ALL of a patient's completed or amended [place] Advance and Rescinded Directives. The entries below indicate that a directive exists for the patient, but an actual copy is not included with this document. The data comes from all [facility]. Date Advance Directives Provider Source May 29, 2017 CLINICAL WARNING CORNELIO FREITAS [facility] May 16, 2017 ADVANCE DIRECTIVE SERENITY BUENROSTRO A [facility] May 16, 2017 ADVANCE DIRECTIVE DISCUSSION SERENITY [place] [facility] May 04, 2017 CLINICAL WARNING MAGO DIAMOND [facility] May 04, 2017 CLINICAL WARNING GAEL ROSARIO [facility] Apr 26, 2017 CLINICAL WARNING JENNIFER DE LEON [facility] Jan 01, 2017 CLINICAL WARNING AYDE WELLS [facility] Jun 09, 2004 ADVANCE DIRECTIVE DARYL VILLARREAL [facility] Jun 07, 2004 ADVANCE DIRECTIVE SHERYL HOLLOWAY [facility] Radiology Reports: +/- 30 days [...] the Encounter. The data comes from all [place] treatment facilities. Date/Time Radiology Report Provider Source Apr 28, 2021 09:06 AM MYOCARDIAL PERFUSION PHARMACOLOGIC STR ESS/REST: DARIN BAKER [facility] HEATH MOJICASydney GRAFF [id number] -[birth year] M Exm Date: APR 28, 2021@09:06 Req Phys: CARIDAD DENNIS Pat Loc: [facility] PACT SAPPHIRE 4E (Req'g Lo Img Loc: [facility] Service: Unknown (Case [id number] COMPLETE) MYOCARDIAL PERFUSION (SPECT )-MULT(NM Detailed) CPT:98084 Reason for Study: CAD, PAD risk stratefication prior to surgery 05/02 (Case 2145 COMPLETE) TC-99M SESTAMIBI (CARDIOLIT E), PE(NM Detailed) CPT:A9500 (Case 2146 COMPLETE) CARDIOVASCULAR STRESS TEST (NM Detailed) CPT:58606 Clinical History: Is this patient on Observation Status? No surgery 05/02/21. please schedule prior if possi ble h/o CAD, PAD. limited ability to walk due to fo ot issues IS NOT under investigation for COVID-19 or is COVID-19 negative 75 yo M with Responsible provider name and phon e number to notify for critical findings if other than user placing the order and pager listed below: User placing orders pag er: [phone] LAST CREATININE 0.6 L (12/15/20) Is the patient taking/taken dipyridamole/aggren ox in the last week? No Has patient taken theophylline product s in the last 3 days? No Patient has been educated not to consu me coffee, Sanka, tea or soft drinks 8 hours prior to test? Yes Report Status: Verified Date Reported: APR 28, 2021 Date Verified: APR 28, 2021 Pressure Welder E-Sig:/ES/DARIN BAKER MD Report: Regadenoson myocardial perfusion [...] BAKER MD, RADIOLOGY STAFF PHYSICIAN (V erifier) /SG Encounter Notes: All associated encounter notes This section contains the clinical notes associated to the Encounter. Date/Time Encounter Note(s) Provider Source Apr 13, 2021 02:39 PM REPORT OF CONTACT: JEANETTE TURNER [facility] LOCAL TITLE: APPOINTMENT SCHEDULING NOTE KAYLAH FOSS STANDARD TITLE: REPORT OF CONTACT DATE OF NOTE: APR 13, 2021@14:39 ENTRY DATE: APR 13, 2021@14:39:16 AUTHOR: EMERSON IBRAHIM COSIGNER: URGENCY: STATUS: COMPLETED Attempt to schedule return to clinic 1st Contact: Called Hamilton at: F Left message Phone number left for to call back: 2nd Contact: Sent letter by regular [place] mail to address on [facility] JESSICA Zacarias [address] [place] [address] [place] [address] If calls back, schedule appointment for : 530[facility] PACT SAPPHIRE RTC 04/2021 PRE- OP, MAY NEED TO USE ASSOCIATE PROVIDER Is the RTC marked as no later than? Glenis /vinicio/ KAYLAH KO ADVANCED MSA Signed: 04/13/2021 14:41
--- OUTSIDE RECORDS SUMMARY | 2021-12-23 17:09 | XMS_ITS | Encounter Summary ---
:1945 Author Organization Department [facility] rs Address [address] [place] [id number] Support Name Relationship Address Phone FRANCES GANDARA Unavailable [address] [place] [address] FRANCES GANDARA Unavailable [address] [place] [address] FRANCES GANDARA Unavailable [address] [place] [address] FRANCES GANDARA Unavailable [address] [place] [address] Insurance Providers: All historical and current Section [...] MEDICARE MEDICARE PART Apr 19, PART A [id number] Whit MOJICA (WNR) (M) A 2007 [id number] [phone] JESSCIA MEDICARE MEDICARE PART Apr 19, PART A [id number] Whit MOJICA (WNR) (M) A 2007 [id number] [phone] JESSICA Selected Encounter This section includes the information on record at [place] for the Encounter. Date/Time Encounter Type Encounter Reason Provider Source Description Apr 25, 2021 OFFICE O/P EST PRIMARY ICD-10-CM M19.91 ARMAAN MARTINEZ 11:00 AM HI 40-54 MIN CARE/MEDICINE Primary N STUART osteoarthritis, unspecified site with Provider Comments: Osteoarthritis ([facility] [id number]) IHE Encounter Template Text not used by [place] Assessments - Encounter Diagnoses This section includes the primary and secondary diagnoses documented for the Encounter. 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 unspecified May 02, 2021 SECONDARY Type [address] [facility] 08:42 PM mellitus with N NARCISO [facility] unspecified complications Plan of Treatment: Future Appointments (+ 6 months) and Future Tests (+/- 45 days) The Plan of Treatment section includes future care activities for the [facility] [place] [facility] This section includes future appointments and future orders which are active, pending orscheduled.Future Appointments This section includes appointments that were scheduled to occur 6 months from the date of the Encounter, up to a maximum of 20 appointments. The data comes from all [place] treatment facilities. Appointment Date/Time Appointment Type Appointment Facili ty Name Apr 28, 2021 09:00 AM AMBULATORY - NONE [facility] Apr 28, 2021 09:45 AM AMBULATORY - NONE [facility] Apr 28, 2021 10:00 AM AMBULATORY - MEDICINE [facility] May 10, 2021 03:20 PM AMBULATORY - NONE [facility] May 11, 2021 11:45 AM AMBULATORY - MEDICINE [facility] May 11, 2021 12:00 PM AMBULATORY - MEDICINE [facility] May 11, 2021 01:00 PM AMBULATORY - MEDICINE [facility] May 19, 2021 02:30 PM AMBULATORY - NONE [facility] May 19, 2021 04:00 PM AMBULATORY - MEDICINE [facility] May 20, 2021 09:00 AM AMBULATORY - NONE [facility] May 20, 2021 10:00 AM AMBULATORY - SURGERY [facility] May 24, 2021 03:30 PM AMBULATORY - NONE [facility] Jun 02, 2021 02:40 PM AMBULATORY - MEDICINE [facility] Jun 06, 2021 02:30 PM AMBULATORY - NONE [facility] Jun 09, 2021 02:00 PM AMBULATORY - SURGERY [facility] June 21, 2021 01:45 PM AMBULATORY - NONE [facility] June 22, 2021 09:30 AM AMBULATORY - NONE [facility] June 22, 2021 12:30 PM AMBULATORY - NONE [facility] June 22, 2021 01:30 PM AMBULATORY - SURGERY [facility] June 22, 2021 02:30 PM AMBULATORY - NONE [facility] Active, Pending, and Scheduled Orders This section includes a listing of several types of active, pending, and scheduled orders, including clinic medications orders, diagnostic test orders, procedure orders and consult orders; where the start date of the order is 45 days before the date of the Encounter or 45 days after the date of the Encounter. The data comes from all [place] treatment facilities. Test Date/Time Test Type Test Details Facility Name May 11, 2021 02:31 PM Pharmacy - Clinic Infusion [facility] Order Lab Results: +/- 30 days of the encounter This section includes the Chemistry and Hematology Lab Results on record with [place] for the patient. Radiology Reports and Pathology Reports are provided separately, in subsequent sections.Lab Results This section contains the Chemistry/Hematology Results that were resulted 30 days before or 30 daysafter the date of the Encounter. Date/Time Source Result Type Result - Unit Interpretation Reference Range Comment Apr 28, 2021 03:12 [facility] COVID-19 AND FLU SCRN Spe cimen Type: NASOPHARYNGEAL PM PANEL (FLUVID) No comment enter ed. Ordering Provid er: GISELLE MARTINEZ Report Released Date/Time: Apr 28, 2021 02:10 PM Reporting Lab: [facility] [address] [facility] [phone] Performing Lab: [facility] [address] [facility] [address] COVID-19 PCR (FLUVID) Not Detected Not D etected FLU A PCR (FLUVID) Not Detected Not Dete cted FLU B PCR (FLUVID) Not Detected Not Dete cted Apr 28, 2021 01:17 PM [facility] HEMOGLOBIN A1C Specim en Type: BLOOD No comment enter ed. Ordering Provid er: GISELLE MARTINEZ Report Released Date/Time: Apr 25, 2021 12:00 PM Reporting Lab: [facility] [address] [facility] [address] Performing Lab: [facility] [address] [facility] [address] HEMOGLOBIN A1C 8.0 H 4.0-6.0 Apr 28, 2021 01:17 [facility] TSH W/REFLEX TO FREE Spec imen Type: PLASMA PM T4 No comment enter ed. Ordering Provid er: GISELLE MARTINEZ Report Released Date/Time: Apr 25, 2021 12:00 PM Reporting Lab: [facility] [address] [facility] [address] Performing Lab: [facility] [address] [facility] [address] TSH 0.73 0.35-4.94 Apr 28, 2021 01:17 [facility] PROTHROMBIN TIME/INR Spec imen Type: PLASMA PM No comment enter ed. Ordering Provid er: GISELLE MARTINEZ Report Released Date/Time: Apr 25, 2021 12:00 PM Reporting Lab: [facility] [address] [facility] [address] Performing Lab: [facility] [address] [facility] [address] .INR 1.1 0.8-1.1 .PT 13.2 H 9.4-12.5 Apr 28, 2021 01:17 PM [facility] CBC Specim en Type: BLOOD No comment enter ed. Ordering Provid er: GISELLE MARTINEZ Report Released Date/Time: Apr 25, 2021 12:00 PM Reporting Lab: [facility] [address] [facility] [address] Performing Lab: [facility] [address] [facility] [address] WBC 4.06 4.0-11.0 RBC 5.41 4.6-6.2 HGB 14.8 13.5-17.9 HCT 47.0 41-54 MCV 86.9 80-100 MCH 27.4 27-33 MCHC 31.5 L 32.0-37.5 PLT 263 150-400 MPV 9.2 7.4-10.4 RDW 14.2 11.5-14.5 Apr 28, 2021 [facility] COMPREHENSIVE METABOLIC Spec imen Type: PLASMA 01:17 PM PANEL+MG No comment enter ed. Ordering Provid er: GISELLE MARTINEZ Report Released Date/Time: Apr 25, 2021 12:00 PM Reporting Lab: [facility] [address] [facility] [address] Performing Lab: [facility] [address] CREATININE 0.7 0.7-1.2 UREA NITROGEN 16 8-26 GLUCOSE 207 H 74-100 SODIUM 137 136-145 POTASSIUM 4.5 3.5-5.1 CHLORIDE 103 98-107 CO2 28 22-29 CALCIUM 9.1 8.4-10.2 PROTEIN,TOTAL 7.4 6.0-8.3 ALBUMIN 3.8 3.5-5.2 BILIRUBIN, TOTAL 0.8 0.2-1.2 MAGNESIUM 2.1 1.6-2.6 ANION GAP 6 5-15 ALKALINE PHOSPHATASE 110 40-150 ALT/SGPT 14 <55 AST/SGOT 14 <34 CREAT EGFR(CKD-EPI) >90 >60 Vital Signs: All taken on the encounter date This section contains inpatient and outpatient Vital Signs collected on the date of the Encounter. Date/Time Temperature Pulse Blood Respiratory SP02 Pain Height Weight Joseph dy Source Pressure Rate Mass Index Apr 25, 146/76 [facility] 2021 11:04 mm[Hg] [facility] Apr 25, 97.8 F 76 157/82 18 /min 96 % 5 [facility] 2021 11:00 /min mm[Hg] [facility] Social History: Smoking Status (Most current) and Tobacco Use (All prior to encounter date) This section includes the most current, and the historical, smoking and tobacco-related health factors from the [place] facility where the Encounter took place.Current Smoking Status This section includes the most current smoking, or tobacco-related health factor, from the [place] facility where the Encounter took place. Date/Time Current Smoking Status Comment Facility Apr 25, 2021 11:00 AM [place]-TOBAC[place] NEVER USED TROY BLANTON [facility] Tobacco Use History This section includes a history of the smoking, or tobacco- related health factors, that were collected on or before the date of the Encounter. The data comes from the [place] facility where the Encounter took place. Date/Time Smoking Status/Tobacco Use Comment [facility] og July 09, 2020 02:00 PM [place]-TO[place]AC[place] FORMER USER WILLY BUTLER [facility] July 09, 2020 02:00 PM VA-TOBACCO QUIT 15 YRS OR MORE [facility] Apr 17, 2019 02:39 PM INPT NO TOBACCO USE IN LAST 30 DAYS [facility] Feb 04, 2019 10:37 AM [place]-TOBACCO NEVER USED WILLYN HARVINDER [facility] Oct 15, 2018 02:43 PM INPT NO TOBACCO USE IN LAST 30 DAYS [facility] Oct 13, 2018 11:30 PM INPT NO TOBACCO USE IN LAST 30 DAYS [facility] Sep 02, 2018 05:50 PM INPT NO TOBACCO USE IN LAST 30 DAYS [facility] Aug 12, 2018 07:28 PM INPT NO TOBACCO USE IN LAST 30 DAYS [facility] Jan 30, 2018 03:28 PM VA-TOBACCO FORMER USER MIN LUKE [facility] Jan 30, 2018 03:28 PM VA-TOBACCO QUIT 15 YRS OR MORE [facility] May 29, 2017 04:53 PM INPT NO TOBACCO USE IN LAST 30 DAYS [facility] Apr 25, 2017 10:44 PM INPT NO TOBACCO USE IN LAST 30 DAYS [facility] Jan 01, 2017 06:40 PM INPT NO TOBACCO USE IN LAST 30 DAYS [facility] Dec 21, 2016 02:43 PM FORMER TOBACCO USER 7Y OR GREATER [facility] Sep 24, 2013 08:52 AM FORMER TOBACCO USER 7Y OR GREATER [facility] Advance Directives: All historical and current Section Date Range: From patient's date of to the date document was created. This section includes ALL of a patient's completed or amended [place] Advance and Rescinded Directives. The entries below indicate that a directive exists for the patient, but an actual copy is not included with this document. The data comes from all [place] facilities. Date Advance Directives Provider Source May 29, 2017 CLINICAL WARNING CORNELIO FREITAS [facility] May 16, 2017 ADVANCE DIRECTIVE SERENITY BUENROSTRO [facility] May 16, 2017 ADVANCE DIRECTIVE DISCUSSION SERENITY BUENROSTRO [place] [facility] May 04, 2017 CLINICAL WARNING MAGO DIAMOND [facility] May 04, 2017 CLINICAL WARNING GAEL ROSARIO [facility] Apr 26, 2017 CLINICAL WARNING JENNIFER DE LEON [facility] Jan 01, 2017 CLINICAL WARNING AYDE WELLS [facility] Jun 09, 2004 ADVANCE DIRECTIVE DARYL VILLARREAL [facility] Jun 07, 2004 ADVANCE DIRECTIVE SHERYL HOLLOWAY [facility] Radiology Reports: +/- 30 days [...] the Encounter. The data comes from all [place] treatment facilities. Date/Time Radiology Report Provider Source May 20, 2021 09:03 AM FOOT LEFT 3 VIEWS OR MORE: SEBASTIÁN ROMERO [facility] JESSICA MOJICA [id number] [birth year] 8 M Exm Date: MAY 20, 2021@09:03 Req Phys: DEBRA KERNS Loc: [facility] TRIAGE Img Loc: MAIN X-RAY Service: Unknown (Case [id number] COMPLETE) FOOT LEFT 3 VIEWS OR MORE ( RAD Detailed) CPT:71560 Proc Modifiers : WEIGHT BEARING Reason for Study: charcot foot Clinical History: Gilman IS NOT under investigation for COVID-19 or is COVID-19 negative charcot foot Responsible provider name and phon e number to notify for critical findings if other than user placing the order and pager listed below: User placing orders pag er: [phone] LAST CREATININE 0.7 (04/28/21) Report Status: Verified Date Reported: MAY 20, 2021 Date Verified: MAY 20, 2021 [facility] E-Sig:/ES/SEBASTIÁN ROMERO MD Report: EXAMINATION: FOOT LEFT 3 VIEWS OR MORE, 2 9:03 AM COMPARISON: None available HISTORY: Reason for Study: charcot foot IS NOT under investigation for COVID-19 or is COVID-19 negative charcot foot Responsible provider name and phon e number to notify for critical findings if other than user placing the order and pager listed below: User placing orders pag er: [phone] LAST CREATININE 0.7 (04/28/21) Impression: 3 nonweightbearing views left foot, no direct r adiographic comparison. Advanced destructive changes predom inantly involving the midfoot with chronic appearing fragmentatio n of the cuneiforms and navicular bones. Plantar displac ement of the tarsals in relation to the metatarsals on the l ateral examination. These findings are compatible with provided history of Charcot foot. Lateral subluxation of the 2nd proximal metatarsal in relation to the 1st. Plantar calc aneal spur. Mild degenerative changes of the tibiotalar joint. A surgical clip projects in the soft tissues of the lower leg. Flexion of the interphalangeal joints on all views. Mild degen erative changes 1st MTP joint. Primary Interpreting Staff: SEBASTIÁN ROMERO MD, RADIOLOGIST ([facility]) /JRT May 20, 2021 09:03 AM FOOT RIGHT 3 VIEWS OR MORE: SEBASTIÁN ROMERO [facility] JESSICA MOJICA [id number] -[birth year] 8 M Exm Date: MAY 20, 2021@09:03 Req Phys: DEBRA KERNS Loc: [facility] TRI[facility] Img Loc: MAIN X-RAY Service: Unknown (Case [id number] COMPLETE) FOOT RIGHT 3 VIEWS OR MORE (RAD Detailed) CPT:40280 Proc Modifiers : WEIGHT BEARING Reason for Study: charcot foot Clinical History: IS NOT under investigation for COVID-19 or is COVID-19 negative charcot foot Responsible provider name and phon e number to notify for critical findings if other than user placing the order and pager listed below: User placing orders pag er: [phone] LAST CREATININE 0.7 (04/28/21) Report Status: Verified Date Reported: MAY 20, 2021 Date Verified: MAY 20, 2021 [facility] E-Sig:/ES/SEBASTIÁN ROMERO MD Report: EXAMINATION: FOOT RIGHT 3 VIEWS OR MORE, 05/21/19 9:03 AM COMPARISON: 08/02/2020 HISTORY: Reason for Study: charcot foot Gilman IS NOT under investigation for COVID-19 or is COVID-19 negative charcot foot Responsible provider name and phon e number to notify for critical findings if other than user placing the order and pager listed below: User placing orders pag er: [phone] LAST CREATININE 0.7 (04/28/21) Impression: 1. 3 nonweightbearing radiographs right foot co mpared to 08/02/2020. No significant change from prior wit h Charcot arthropathy of the right foot as evidenced by c hronic collapse of the tarsometatarsal joints and plantar subluxat ion of the tarsals related to the metatarsals on the lateral exami nation. Lateral subluxation of the proximal 2nd metatarsal is s imilar to prior examination. Loss of subtalar joint space. Smal l plantar calcaneal spur. 2. Tiny focus of soft tissue gas versus gas in a wound suspected at the plantar foot (clinical correlation recom mended) on the lateral examination subjacent to bandaging with out definite cortical bone loss in this area to suggest asso ciated osteomyelitis. 3. Degenerative changes of the interphalangeal joints and 1st metatarsal-phalangeal joint, not significantly changed. Primary Interpreting Staff: SEBASTIÁN ROMERO MD, RADIOLOGIST ([facility]) /JRT Apr 28, 2021 09:06 AM MYOCARDIAL PERFUSION PHARMACOLOGIC STR ESS/REST: DARIN BAKER [facility] JESSICA MOJICA [id number] -[birth year] 8 M Exm Date: APR 28, 2021@09:06 Req Phys: GISELLE MARTINEZ Pat Loc: [facility] (Req'g Lo Img Loc: NUC MED Service: Unknown (Case [id number] COMPLETE) MYOCARDIAL PERFUSION (SPECT )-MULT(ME Detailed) CPT:24550 Reason for Study: CAD, PAD risk stratefication prior to surgery 05/02 (Case 6 COMPLETE) TC-99M SESTAMIBI (CARDIOLIT E), PE(ME Detailed) CPT:A9500 (Case 2147 COMPLETE) CARDIOVASCULAR STRESS TEST (ME Detailed) CPT:55227 Clinical History: Is this patient on Observation Status? No surgery 05/02/21. please schedule prior if possi ble h/o CAD, PAD. limited ability to walk due to fo ot issues Gilman IS NOT under investigation for COVID-19 or is COVID-19 negative 75 yo M with Responsible provider name and phon e number to notify for critical findings if other than user placing the order and pager listed below: User placing orders pag er: [phone] LAST CREATININE 0.6 L (12/15/20) Is the patient taking/taken dipyridamole/aggren ox in the last week? No Has patient taken theophylline product s in the last 3 days? No Patient has been educated not to consu me coffee, Sanka, tea or soft drinks 8 hours prior to test? Yes Report Status: Verified Date Reported: APR 28, 2021 Date Verified: APR 28, 2021 [facility] E-Sig:/ES/DARIN BAKER MD Report: Regadenoson myocardial perfusion [...] Encounter. Date/Time Encounter Note(s) Provider Source Apr 25, 2021 11:01 INTERNAL MEDICINE OUTPATIENT NOTE: Tasha RICKETTS [facility] LOCAL TITLE: MEDICINE CLINIC NURSING NOTE STANDARD TITLE: INTERNAL MEDICINE OUTPATIENT NOT E DATE OF NOTE: APR 25, 2021@11:01 ENTRY DATE: APR 25, 2021@11:01:57 AUTHOR: DEQUAN RICKETTS EXP COSIGNER: URGENCY: STATUS: COMPLETED TYPE OF VISIT: Appointment Check In Type of appointment: In-person appointment REASON FOR VISIT: pre op physical ALLERGIES: RIVAROXABAN (Jul 25, 2017) VITAL SIGNS: Blood Pressure: 157/82 (04/25/2021 11:00) 146/76 Pulse: 76 (04/25/2021 11:00) Respiration: 18 (04/25/2021 11:00) Temperature: 97.8 F [36.6 C] (04/25/2021 11:00) Weight: Unavailable (04/25/2021 11:00) Height: Unavailable (04/25/2021 11:00) BMI: BMI not available without height O2 Sat: 96% (04/25/2021 11:00) Pain: 5 (04/25/2021 11:00) PAIN SCREEN: Patient is having significant pain that they wo uld like to talk to their provider about today. Old (Chronic) (began more than 6 months ago) Patient states their average pain this past wee k is 6 Patient states the average number on how the ch ronic pain affects their enjoyment of life the past week is 6 Patient states during the past week the average number on how the pain has interfered with their general activity is 6 Pain Education Patient indicates readiness to learn and verbal izes understanding of the following: Pain assessment process Has concerns/questions, advised to discuss with provider MEDICATION Active Outpatient Medications (including Suppli es): ACCU-CHEK GUIDE (GLUCOSE) TEST STRIP USE 1 STRI P TOPICALLY ACTIVE TWICE A DAY TO CHECK BLOOD SUGAR--USE WITHIN 3 MINUTES OF REMOVING FROM CONTAINER TEST AT DIFFERENT TIMES OF THE DAY OR DIRECTED ACETAMINOPHEN 500MG TAB TAKE ONE TABLET BY MOUT H EVERY 6 ACTIVE (S) HOURS NEEDED FOR PAIN*NOT TO EXCEED 4000MG I N 24 HOURS FROM ALL SOURCES* ALBUTEROL 90MCG (CFC-F) 200D ORAL INHL INHALE 2 PUFFS BY ACTIVE INHALATION FOUR TIMES A DAY NEEDED FOR IMMED IATE RELIEF OF SHORTNESS OF BREATH *SHAKE WELL* ARTIFICIAL SALIVA (BIOTENE MOUTH) SPRAY SPRAY 1 -2 SPRAYS ACTIVE IN MOUTH EVERY HOUR NEEDED FOR DRY MOUTH ARTIFICIAL TEARS POLYVINYL ALCOHOL INSTILL 1 DR OP IN BOTH ACTIVE EYES THREE TIMES A DAY NEEDED FOR DRY EYES ASPIRIN 81MG EC TAB TAKE ONE TABLET BY MOUTH EV DAY TO ACTIVE PREVENT HEART ATTACK DO NOT CHEW ATORVASTATIN CALCIUM 80MG TAB TAKE ONE TABLET B Y MOUTH AT ACTIVE BEDTIME FOR CHOLESTEROL AND HEART DISEASE BUMETANIDE 1MG TAB TAKE ONE TABLET BY MOUTH TWI CE A DAY ACTIVE FOR FLUID RETENTION BUPROPION HCL 150MG 24HR SA TAB TAKE ONE TABLET BY MOUTH ACTIVE EVERY DAY CARBOXYMETHYLCELLULOSE NA 0.5% OPH SOLN INSTILL 1 DROP IN ACTIVE BOTH EYES FOUR TIMES A DAY FOR DRY EYES CHOLECALCIF 25MCG (D3-1,000UNIT) TAB TAKE ONE T ABLET BY ACTIVE MOUTH EVERY DAY FOR VITAMIN D SUPPLEMENTATION CITALOPRAM HYDROBROMIDE 20MG TAB TAKE ONE TABLE T BY MOUTH ACTIVE (S) EVERY DAY FOR DEPRESSION CLEANSER,WOUND SKINTEGRITY TOP SPRAY SPRAY TO L EFT HEEL ACTIVE AND RIGHT FOOT SUNDAY, SUNDAY AND SUNDAY INSTRUCTED FOR DRESSING CHANGES CODEINE 10/GG 100MG/5ML (ALC-F/SF) LIQ TAKE 5 M L TO 10 ML ACTIVE BY MOUTH THREE TIMES A DAY NEEDED FOR COUGH CYANOCOBALAMIN 1000MCG TAB TAKE TWO TABLETS BY MOUTH EVERY ACTIVE WEEK FOR VITAMIN B12 SUPPLEMENT CYANOCOBALAMIN 1000MCG TAB TAKE TWO TABLETS BY MOUTH EVERY PENDING WEEK FOR VITAMIN B12 SUPPLEMENT DICLOFENAC NA 1% TOP GEL APPLY 4 GRAMS TO KNEE FOUR TIMES ACTIVE A DAY NEEDED FOR PAIN -USE DOSE CARD IN BOX TO MEASURE DOSE -MAXIMUM OF 32 GM PER DAY DOCUSATE NA 100MG CAP TAKE ONE CAPSULE BY MOUTH TWICE A ACTIVE DAY *STOP IF HAVING DIARRHEA* DRESS,MEPILEX BORDER FLEX 4X4IN #[id number] APPLY D RESSING ACTIVE DIRECTED EMPAGLIFLOZIN 25MG TAB TAKE ONE-HALF TABLET BY MOUTH EVERY ACTIVE MORNING FOR DIABETES ERGOCALCIF 1,250MCG (D2-50,000UNIT) CAP TAKE ON E CAPSULE ACTIVE (S) BY MOUTH EVERY MONTH FLUTICASONE PROP 50MCG 120D NASAL INHL SPRAY 1 PUFF EACH ACTIVE NOSTRIL IN EACH NOSTRIL TWICE A DAY FOR NASAL USE GAUZE PAD 4IN X 4IN 8-PLY NONSTERILE USE GAUZE SPONGE ACTIVE TOPICALLY DIRECTED GLIPIZIDE 10MG TAB TAKE ONE TABLET BY MOUTH TWI CE A DAY ACTIVE TAKE 30 MINUTES BEFORE MEAL FOR DIABETES GLOVE LATEX X-LARGE PWDR-FREE NONSTERILE USE GL OVE(S) ACTIVE DIRECTED HYDROCORTISONE 2.5% CREAM APPLY THIN LAVER TO A NKLE ACTIVE TOPICALLY THREE TIMES A DAY NEEDED FOR ITCHI NG IBUPROFEN 600MG TAB TAKE ONE TABLET BY MOUTH EV MARGARITO DAY ACTIVE NEEDED FOR JOINT PAIN TAKE WITH FOOD INSULIN,GLARGINE 100 UNT/ML 3ML SOLOSTAR INJECT 8 UNITS ACTIVE UNDER THE SKIN AT BEDTIME FOR DIABETES DISPENSE WITH SOLSTAR PEN LANCET,SOFTCLIX USE 1 LANCET TOPICALLY DIREC CARLO ACTIVE *DISPOSE OF IN A HARD-PLASTIC CONTAINER WITH A SCREW-ON LIDCONTACT GARBAGE HAULER FOR PROPER DISPOSAL LATANOPROST 0.005% OPH SOLN INSTILL 1 DROP IN L EFT EYE AT ACTIVE BEDTIME FOR GLAUCOMA REFRIGERATE BOTTLE UNTIL O PENED. LIDOCAINE 4% TOP CREAM APPLY MODERATE AMOUNT TH REE ACTIVE TIMES A DAY NEEDED FOR PAIN CREAM LIDOCAINE 5% PATCH APPLY 1 PATCH EVERY DAY FOR BACK ACTIVE PAIN -WEAR FOR ONLY 12 HOURS AND THEN REMOVE AN D LEAVE OFF FOR 12 HOURS LOSARTAN 50MG TAB TAKE ONE-HALF TABLET BY MOUTH EVERY DAY ACTIVE FOR HIGH BLOOD PRESSURE METFORMIN HCL 500MG/5ML ORAL SOLN TAKE TWO TEAS POONSFUL BY ACTIVE MOUTH TWICE A DAY MICONAZOLE NITRATE 2% TOP PWDR USE TO AFFECTED AREA ACTIVE TOPICALLY TWICE A DAY FOR FUNGAL INFECTION/GROI N RASH MULTIVIT W/MINERALS, CAP/TAB TAKE 1 TAB LET BY ACTIVE MOUTH EVERY DAY FOR FOLIC ACID AND IRON DEFICIE NCY (REPLACES FERROUS SULFATE) NEEDLE,PEN 31G,8MM USE 1 NEEDLE, NEEDLE, PEN 31 G 8MM ACTIVE TOPICALLY DIRECTED *DISPOSE OF IN A HARD-ZARIA STIC CONTAINER WITH A SCREW-ON LID CONTACT GARBAGE [place] FOR PROPER DISPOSAL TO USE WITH GLARGINE POTASSIUM CHLORIDE 20MEQ/PKT ORAL PWD TAKE 1 PA CKET BY ACTIVE MOUTH EVERY DAY --TAKE WITH WATER-- PREDNISOLONE ACETATE 1% OPH SUSP INSTILL 1 DROP IN ACTIVE OPERATIVE EYE FOUR TIMES A DAY SHAKE WELL FOR POST-OP INFLAMMATION PREGABALIN 100MG ORAL CAP TAKE ONE CAPSULE BY M OUTH THREE ACTIVE TIMES A DAY FOR NERVE PAIN -REPLACES GABAPENTIN PROPRANOLOL HCL 80MG TAB TAKE ONE TABLET BY JEROD TH TWICE A ACTIVE DAY FOR HAND TREMOR ROPINIROLE HCL 2MG SA TAB TAKE TWO TABLETS BY M OUTH EVERY ACTIVE DAY SEMAGLUTIDE 1MG/0.75ML INJ PEN 3ML INJECT 1MG U NDER THE ACTIVE SKIN EVERY WEEK SODIUM CHLORIDE 5% OPH OINT APPLY THIN STRIP TO BOTH EYES ACTIVE AT BEDTIME SODIUM CHLORIDE 5% OPH SOLN INSTILL 1 DROP IN B OTH EYES ACTIVE FOUR TIMES A DAY SODIUM FLUORIDE 1.1% TOOTHPASTE BRUSH SMALL ELIAS UNT MOUTH ACTIVE EVERY MORNING AND AT BEDTIME ON TOOTHBRUSH, BRU SH FOR 2 MINUTES. TADALAFIL 20MG TAB TAKE ONE TABLET BY MOUTH AT BEDTIME ACTIVE TAKE AT LEAST 30 MINUTES BEFORE ANTICIPATED SEX UAL ACTIVITY. MAXIMUM 4 DOSES FOR 30-DAY SUPPLY TAPE,MEDIPORE H SOFT 4IN X 10YD #5084 CUT AND APPLY TAPE ACTIVE DIRECTED TRIAMCINOLONE ACETONIDE 0.1% OINT APPLY MODERAT E AMOUNT ACTIVE TWICE A DAY NEEDED FOR ITCHING AVOID FACE, GROIN & ARMPITS *FOR EXTERNAL USE ONLY VANICREAM TOP CREAM APPLY THIN LAYER TOPICALLY EVERY DAY ACTIVE FOR DRY SKIN APPLY TO FEET AND LEGS VASHE WOUND THERAPY TOP SOLN SATURATE GAUZE WIT H SOLUTION ACTIVE AND USE DIRECTED VITAMIN E 180MG (400UNIT) CAP TAKE ONE CAPSULE BY MOUTH ACTIVE (S) EVERY DAY Non-VA OXYMETAZOLINE HCL 0.05% NASAL SPRAY 1 SP RAY EACH ACTIVE NOSTRIL NEEDED Over the Counter/Herbal Medications: The patient denies taking any outside medicatio ns or herbals. Nursing Annual Screening: Fall History Screen During the past 12 months, have you had any fal ls? Patient reports having one fall without injury requiring treatment. MEDICATIONS: Patient is on one of the following medication c lasses: Antihypertensives, Antidepressants, Antipsychot ics, Diuretics, or Controlled substance medication used for pain. FALL RISK ADVICE: Fall Risk Advice provided. Handout entitled Fa ll Prevention At Home reviewed and given to patient and/or significan t other. Script Talk Screen Are you able to read your prescription bottles with your glasses, magnifiers or other aids? Yes or patient not taking any prescriptions. Skin Screen Patient reports any current pressure ulcers, a history of pressure ulcers, or a wound from a medical policy specialist or Patient is bed-confined or a wheelchair-user or Patient requires assistance to transfer/change position No, Skin Screen is Negative Home Abuse/Violence Screen Is your home free of abuse and violence? Yes Outpatient Nutrition Screen Body Mass Index (BMI)= BMI not available withou t height [place]: Collection DT Specimen Test Name Result Units R ef Range 03/01/2021 09:31 BLOOD HEMOGLOBIN A1C 8.0 H % 4 .0 - 6.0 [place] Hgb A1C: No data available [place] Hgb A1C: No data available Point of Care Hgb A1C: POC HGB A1C____ Is patient's BMI less than 18.5? No Does patient have swallowing, coughing, or chew ing problems affecting oral intake? No Has patient experienced unplanned weight loss o r gain greater than 10 pounds over the last 2 months? No Is patient's Hgb A1C (Glycosylated Hemoglobin) greater than 9.5? Information not available Is patient receiving Total Parenteral Nutrition (TPN) or Tube Feedings? No Patient Health Education Screen BARRIERS/SPECIAL NEEDS: No barriers identified PREFERRED STYLE OF LEARNING: No preference stated Client Assistive Service (ANGELINA) Screen Does the patient require assistance with outpat ient visit? No Tobacco Use Screening: The patient has never used tobacco. 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 Branch: [employer] 04/25/21 11:00 F2F Visit F/U: existing recall /next year and PRN for new /changes in symptoms Special/follow up notes: none Pre-op assessment for __Podiatry__ surgery _ Surgery risk level - moderate Patient's risk for cardiac complications - High RCRI score - CAD, CHF, insulin 3+ point - Clas IV risk 15% 30-day risk EKG scheduled due to high risk for complic ations and limited ability to walk / assess exercise tolerance due to chronic foot ulcer and boot, re commended cardiac stress test Stress test was positive and referred pt to [facility] for eval Summary of risk assessment METS/activity - unknown Smoking/RAJESH - no smoking, yes RAJESH but doens't us e the machine Heme - PE in 2018; xeralto -> hemopysis per prob agata list DM - a1c improved to 8 with insulin HTN - controlled ---- updated Portions of Previous A/P ------- # DM improving w orals and ozempic but need tig hter control - start glargine 8 units daily # RLS - prev on requip 2mg q6h due to pharmacy restriction for RLS, can only do 2mg BID . which pt would time it according to when leg shakes start - will try standing 4mg SA instead. # R foot wound w/o evidence of infection; clinic all lesion stable Previously declined insulin # neuropathy - c/w metformin, glipizide, empa, and semaglutid e - c/w pregabalin which is helping with the pain # CAD h/o STEMI; CABG x 4 (emergent) 05/06; EF 55 % 12/06 # HTN uncontrolled SBP 140-160s recently 2/2 giuseppe n[; prev hypotensive on ACEI # HFpEF TTE repeat 12/2020 pending # mod w murmur on exam - c/w atorvastatin, aspirin. not on BB due to lo w HR; not on DYLAN due to prev hypotension - on stable Bumex 1mg BID - losartan restarted ---2020 # Chronic back pain w sciatica stable L spine xray with degenerative changes consider MRI in the future if pain is ucnontrolled. 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 - c/w chiro, acupuncture, lido cream and patch - report no drowsiness/fall/constipation and no driving on med - change from gabapentin to lyrica; increased oxycodone temporarily to 10mg TID expect to decrease back to BID post surgery and pt aware # Charcots pending surgery end of 2020 - prev - inc oxy to 2 tabs TID (until surgery) ---- Unmodified Portions of Previous A/P ------- # polypharmacy - spent considerable time at [facility] cleaning up med list # recent blood in phlegm. was seen in ED yesterd ay. negative for PE and has evidence of viral bronchitis # cough improved and no more hemopysis. - consider repeat CT next year # balance problme since this year. has more trou ble walking with his cane. - MRI to r/o small strokes as pt's high risk # home care - MWF home health; w 2x / wk bathing . PT dc'ed. has equipments. # 11/2018 CT - Redemonstration of diffuse long s egment circumferential esophageal wall thickening. - EGD wnl # GERD - avoid nsaids # h/o RAJESH # vitamin def - b12, vit D # h/o PE 2017 # h/o possible GCA previously on steroids and MT X, # RHCM Vax - see immunization history SHx - neg smoking FHx - n/a Preventive screening - see clinical reminders Adv directive Future Appointments: APR 25, 2021@11:00 Clinic: [facility] PA[facility] 4E JUN 13, 2021@14:30 Clinic: [facility] AUD GARCIA REPAIR JUNE 22, 2021@13:30 Clinic: [facility] P[facility] NURSE CL JUNE 27, 2021@13:30 Clinic: [facility] 2 JULY 04, 2021@13:15 Clinic: [facility] E[facility] RESIDENT FOL/ UP SEP 07, 2021@13:00 Clinic: [facility] N[facility] SEP 19, 2021@10:30 Clinic: [facility] UROL RTC DARY DEC 12, 2021@13:00 Clinic: [facility] N[facility] CL FEB 23, 2022@08:00 Clinic: [facility] KYUNGIRAIDA CASA MAR 08, 2022@13:00 Clinic: [facility] POD ANNUAL see prob list PSHx FHx see records Reviewed available labs/scans today as appropria te RTC - routine appt in 6-12 m (1yr for co-mged pt s). Sooner PRN if changes/new/worsening symptoms; co ntacts provided. Nursing notes reviewed. CC in nursing note/HPI. Updated PMHx in Problems. HPI patient's here for eval prior to ___R foot surge ry__ Prior surgery(ies): CABG, eye surgeries, foot [place] rgery Reports no complications from anesthesia and no bleeding problems Exertional limit/METS: limited to the house. Chr onic SOB that hasn't changed. no chest pain/shortness of breath/dizziness/palp itations RAJESH - has not used machine in years. Already has food at home. Has shoulder c hair. Has wheelchair and knee scooter. Has rail on the bed to help get in and out. Has home health. There's a [facility] nurse who will come Skin Tests/Immunizations: INFLUENZA, INJECTABLE, QUADRIVALENT, PRESERVATI VE FREE Oct COVID-19 (PFIZER), MRNA, LNP-S, PF, 30 MCG/0.3 ML DOSE Nov See A&P for add'l details Relevant ROS: See HPI. Rest of ROS neg below Patient reports no fever/chills no chest pain/shortness of breath no blood in urine / stool no abdominal pain Med/Surg/Fam/Soc Hx: Reviewed and updated as kalyn campos in problem list Rated Disabilities: TINNITUS 10% SC IMPAIRED HEARING 10% SC LIMITED FLEXION OF FOREARM 10% SC LIMITED MOTION OF ANKLE 20% SC LUMBOSACRAL OR CERVICAL STRAIN 30% SC BURSITIS 10% SC HYPERTENSIVE VASCULAR DISEASE 10% SC LUMBOSACRAL OR CERVICAL STRAIN 40% SC LOSS OF MOTION RING OR LITTLE FINGER 0% SC VS & EXAM Temp: 97.2 F [36.2 C] (03/28/2021 14:03) Resp: 1 6 (03/28/2021 14:03) Pulse: 77 (03/28/2021 14:03) Pain: 7 (03/28/2021 14:03) Osat 96% (03/28/2021 14:03) Measurement DT BP 03/28/2021 14:03 138/79 03/01/2021 09:04 146/75 02/23/2021 14:20 156/82 Measurement DT WEIGHT LB(KG)[BMI] 03/28/2021 14:03 235.2(106.68)[32*] 01/05/2021 10:29 Unavailable 12/15/2020 13:02 230(104.33)[31*] Appearance: awake, alert, NAD; well appearing HEENT: NC/AT, normal conj, no external abnormali ties Neck: supple, no deformities Card: Reg rate, good S1, S2, 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 See A/P for relevant [...] TAKE ONE TABLET BY MO UTH ACTIVE (S) EVERY 6 HOURS NEEDED FOR PAIN*NOT TO EXCEED 4000MG IN 24 HOURS FROM ALL SOURCES* 3) ALBUTEROL 90MCG (CFC-F) 200D ORAL INHL INHALE 2 PUFFS ACTIVE BY INHALATION FOUR TIMES A DAY NEEDED FOR IMMEDIATE RELIEF OF SHORTNESS OF BREATH *SHAKE WELL* 4) ARTIFICIAL SALIVA (BIOTENE MOUTH) SPRAY SPRAY 1-2 ACTIVE SPRAYS IN MOUTH EVERY HOUR NEEDED FOR DRY MO UTH 5) ARTIFICIAL TEARS POLYVINYL ALCOHOL INSTILL 1 DROP IN ACTIVE BOTH EYES THREE TIMES A DAY NEEDED FOR DRY E YES 6) ASPIRIN 81MG EC TAB TAKE ONE TABLET BY MOUTH EVERY ACTIVE DAY TO PREVENT HEART ATTACK DO NOT CHEW 7) ATORVASTATIN CALCIUM 80MG TAB TAKE ONE TABLET BY ACTIVE MOUTH AT BEDTIME FOR CHOLESTEROL AND HEART DISE ASE 8) BUMETANIDE 1MG TAB TAKE ONE TABLET BY MOUTH T WICE A ACTIVE DAY FOR FLUID RETENTION 9) BUPROPION HCL 150MG 24HR SA TAB TAKE ONE TABL ET BY ACTIVE MOUTH EVERY DAY 10) CARBOXYMETHYLCELLULOSE NA 0.5% OPH SOLN INST ILL 1 ACTIVE DROP IN BOTH EYES FOUR TIMES A DAY FOR DRY EYES 11) CHOLECALCIF 25MCG (D3-1,000UNIT) TAB TAKE ON E TABLET ACTIVE BY MOUTH EVERY DAY FOR VITAMIN D SUPPLEMENTATIO N 12) CITALOPRAM HYDROBROMIDE 20MG TAB TAKE ONE TA BLET BY ACTIVE (S) MOUTH EVERY DAY FOR DEPRESSION 13) CLEANSER,WOUND SKINTEGRITY TOP SPRAY SPRAY T [...] -MAXIMUM OF 32 GM PER DAY 17) DOCUSATE NA 100MG CAP TAKE ONE CAPSULE BY [facility] TWICE ACTIVE A DAY *STOP IF HAVING DIARRHEA* 18) DRESS,MEPILEX BORDER FLEX 4X4IN #964140 APPL Y ACTIVE DRESSING DIRECTED 19) EMPAGLIFLOZIN 25MG TAB TAKE ONE-HALF TABLET BY MOUTH ACTIVE EVERY MORNING FOR DIABETES 20) ERGOCALCIF 1,250MCG (D2-50,000UNIT) CAP TAKE ONE ACTIVE (S) CAPSULE BY MOUTH EVERY MONTH 21) FLUTICASONE PROP 50MCG 120D NASAL INHL SPRAY 1 PUFF ACTIVE EACH NOSTRIL IN EACH NOSTRIL TWICE A DAY FOR NASAL USE 22) GAUZE PAD 4IN X 4IN 8-PLY NONSTERILE USE GAU ZE SPONGE ACTIVE TOPICALLY DIRECTED 23) GLIPIZIDE 10MG TAB TAKE ONE TABLET BY MOUTH TWICE A ACTIVE DAY TAKE 30 MINUTES BEFORE MEAL FOR DIABETE S 24) GLOVE LATEX X-LARGE PWDR-FREE NONSTERILE USE GLOVE(S) ACTIVE DIRECTED 25) HYDROCORTISONE 2.5% CREAM APPLY THIN LAVER [...] HARD-PLASTIC CONTAINER WITH A SCREW-ON LIDCONTACT GARBAGE [place] FOR PROPER DISPOSAL 29) LATANOPROST 0.005% OPH [...] DISPOSAL TO USE WITH GLARGI NE 37) POTASSIUM CHLORIDE 20MEQ/PKT ORAL PWD TAKE [...] FOR HAND TREMOR 41) ROPINIROLE HCL 2MG SA TAB TAKE TWO TABLETS B Y MOUTH ACTIVE EVERY DAY 42) SEMAGLUTIDE 1MG/0.75ML INJ PEN 3ML INJECT 1M G UNDER ACTIVE THE SKIN EVERY WEEK 43) SODIUM CHLORIDE 5% OPH OINT APPLY THIN STRIP TO BOTH ACTIVE EYES AT BEDTIME 44) SODIUM CHLORIDE 5% OPH SOLN INSTILL 1 DROP I N BOTH ACTIVE EYES FOUR TIMES A DAY 45) SODIUM FLUORIDE 1.1% TOOTHPASTE BRUSH SMALL AMOUNT ACTIVE MOUTH EVERY MORNING AND AT BEDTIME ON TOOTHBRUS H, BRUSH FOR 2 MINUTES. 46) TADALAFIL 20MG TAB TAKE ONE TABLET BY MOUTH AT ACTIVE BEDTIME TAKE AT LEAST 30 MINUTES BEFORE ANTICIP ATED SEXUAL ACTIVITY. MAXIMUM 4 DOSES FOR 30-DAY SUP PLY 47) TAPE,MEDIPORE H SOFT 4IN X 10YD 3M#2920 CUT AND APPLY ACTIVE TAPE DIRECTED 48) TRIAMCINOLONE ACETONIDE 0.1% OINT APPLY MODE RATE ACTIVE AMOUNT TWICE A DAY NEEDED FOR ITCHING AVOI D FACE,GROIN & ARMPITS *FOR EXTERNAL USE ONLY 49) VANICREAM TOP CREAM APPLY THIN LAYER TOPICAL LY EVERY ACTIVE DAY FOR DRY SKIN APPLY TO FEET AND LEGS 50) VASHE WOUND THERAPY TOP SOLN SATURATE GAUZE WITH ACTIVE SOLUTION AND USE DIRECTED 51) VITAMIN E 180MG (400UNIT) CAP TAKE ONE CAPSU LE BY ACTIVE (S) MOUTH EVERY DAY Non-VA Medications Status 1) Non-VA OXYMETAZOLINE HCL 0.05% NASAL SPRAY 1 SPRAY ACTIVE EACH NOSTRIL NEEDED 52 Total Medications PROBLEM LIST (see CPRS for any updates done durankur ng the visit) Active problems - Computerized [...] RIVAROXABAN (Jul 25, 2017) LAB/TEST DATA See [facility] problem list for any additional externa l results WBC 5.58 (03/01/21) PLT 286 (03/01/21) HGB 13.4 L BLOOD (03/01/21 09:31) 14.6 BLOOD (12/15/20 12:44) 14.5 BLOOD (12/14/20 04:25) IRON 36 L (12/15/20) TRANSFERRIN 237 (12/15/20) TIBC,CALCULATED 296 (12/15/20) IRON SATURATION 12 L (12/15/20) Collection DT Spec HGBA1C 03/01/2021 09:31 BLOOD 8.0 H 12/15/2020 12:44 BLOOD 9.5 H 06/22/2020 10:22 BLOOD 9.5 H Na: SODIUM 137 (12/15/20) K: POTASSIUM [...] 17:00 PLASMA TSH 1.19 uIU/mL 0.35 - 4 .94 08/12/2018 14:21 PLASMA TSH 1.11 uIU/mL 0.35 - 4 .94 Patient was informed of available lab, imaging, [...] further questions. More than 50% of this 45 min appt was spent coun seling/coordinating care for the medical problems outlined above. /vinicio/ Giselle Martinez MD Staff Physician Signed: 05/02/2021 20:42
--- OUTSIDE RECORDS SUMMARY | 2021-12-23 17:11 | XMS_ITS | Encounter Summary ---
:1945 Author Organization [facility] Address [address] [place] [id number] Support Name Relationship Address Phone FRANCES GANDARA Unavailable [address] [place] [address] FRANCES GANDARA Unavailable [address] [place] [address] FRANCES GANDARA Unavailable [address] [place] [address] FRANCES GANDARA Unavailable [address] [place] [address] Insurance Providers: All historical and current Section [...] MEDICARE MEDICARE PART Apr 19, PART A [id number] Whit MOJICA (WNR) (M) A 2007 50A [phone] JESSICA MEDICARE MEDICARE PART Apr 19, PART A [id number] Whit MOJICA (WNR) (M) A 2007 [id number] [phone] JESSICA Selected Encounter This section includes the information on record at [place] for the Encounter. Date/Time Encounter Type Encounter Reason Provider Source Description Apr 25, 2021 12:04 Outpatient TELEPHONE/ANCILLARY Sasha GOODE M PM Encounter IHE Encounter Template Text not used by [place] Plan of Treatment: Future Appointments (+ 6 months) and Future Tests (+/- 45 days) The Plan of Treatment section includes future care activities for the patient from all [place] treatmentfacilities. This section includes future appointments and future orders which are active, pending orscheduled.Future Appointments This section includes appointments that were scheduled to occur 6 months from the date of the Encounter, up to a maximum of 20 appointments. The data comes from all [place] treatment [facility]. Appointment Date/Time Appointment Type Appointment Facili ty Name Apr 28, 2021 09:00 AM AMBULATORY - NONE [facility] Apr 28, 2021 09:45 AM AMBULATORY - NONE [facility] Apr 28, 2021 10:00 AM AMBULATORY - MEDICINE [facility] May 10, 2021 03:20 PM AMBULATORY - NONE [facility] May 11, 2021 11:45 AM AMBULATORY - MEDICINE [facility] May 11, 2021 12:00 PM AMBULATORY - MEDICINE [facility] May 11, 2021 01:00 PM AMBULATORY - MEDICINE [facility] May 19, 2021 02:30 PM AMBULATORY - NONE [facility] May 19, 2021 04:00 PM AMBULATORY - MEDICINE [facility] May 20, 2021 09:00 AM AMBULATORY - NONE [facility] May 20, 2021 10:00 AM AMBULATORY - SURGERY [facility] May 24, 2021 03:30 PM AMBULATORY - NONE [facility] Jun 02, 2021 02:40 PM AMBULATORY - MEDICINE [facility] Jun 06, 2021 02:30 PM AMBULATORY - NONE [facility] Jun 09, 2021 02:00 PM AMBULATORY - SURGERY [facility] June 21, 2021 01:45 PM AMBULATORY - NONE [facility] June 22, 2021 09:30 AM AMBULATORY - NONE [facility] June 22, 2021 12:30 PM AMBULATORY - NONE [facility] June 22, 2021 01:30 PM AMBULATORY - SURGERY [facility] June 22, 2021 02:30 PM AMBULATORY - NONE [facility] Active, Pending, and Scheduled Orders This section includes a listing of several types of active, pending, and scheduled orders, including clinic medications orders, diagnostic test orders, procedure orders and consult orders; where the start date of the order is 45 days before the date of the Encounter or 45 days after the date of the Encounter. The data comes from all [facility]. Test Date/Time Test Type Test Details Facility Name May 11, 2021 02:31 PM Pharmacy - Clinic Infusion [facility] Order Lab Results: +/- 30 days of the encounter This section includes the Chemistry and Hematology Lab Results on record with [place] for the patient. Radiology Reports and Pathology Reports are provided separately, in subsequent sections.Lab Results This section contains the Chemistry/Hematology Results that were resulted 30 days before or 30 daysafter the date of the Encounter. Date/Time Source Result Type Result - Unit Interpretation Reference Range Comment Apr 28, 2021 03:12 [facility] COVID-19 AND FLU SCRN Spe cimen Type: NASOPHARYNGEAL PM PANEL (FLUVID) No comment enter ed. Ordering Provid er: GISELLE MARTINEZ Report Released Date/Time: Apr 28, 2021 02:10 PM Reporting Lab: [facility] [address] [facility] [address] Performing Lab: [facility] [address] [facility] [address] COVID-19 PCR (FLUVID) Not Detected Not D etected FLU A PCR (FLUVID) Not Detected Not Dete cted FLU B PCR (FLUVID) Not Detected Not Dete cted Apr 28, 2021 01:17 PM [facility] HEMOGLOBIN A1C Specim en Type: BLOOD No comment enter ed. Ordering Provid er: GISELLE MARTINEZ Report Released Date/Time: Apr 25, 2021 12:00 PM Reporting Lab: [facility] [address] [facility] [address] Performing Lab: [facility] [address] [facility] [address] HEMOGLOBIN A1C 8.0 H 4.0-6.0 Apr 28, 2021 01:17 [facility] PROTHROMBIN TIME/INR Spec imen Type: PLASMA PM No comment enter ed. Ordering Provid er: GISELLE MARTINEZ Report Released Date/Time: Apr 25, 2021 12:00 PM Reporting Lab: [facility] [address] [facility] [address] Performing Lab: [facility] [address] [facility] [address] .INR 1.1 0.8-1.1 .PT 13.2 H 9.4-12.5 Apr 28, 2021 01:17 [facility] TSH W/REFLEX TO FREE Spec imen Type: PLASMA PM T4 No comment enter ed. Ordering Provid er: GISELLE MARTINEZ Report Released Date/Time: Apr 25, 2021 12:00 PM Reporting Lab: [facility] [address] [facility] [address] Performing Lab: [facility] [address] [facility] [address] TSH 0.73 0.35-4.94 Apr 28, 2021 01:17 PM [facility] CBC Specim en Type: BLOOD No comment enter ed. Ordering Provid er: GISELLE MARTINEZ Report Released Date/Time: Apr 25, 2021 12:00 PM Reporting Lab: [facility] [address] [facility] [address] Performing Lab: [facility] [address] [facility] [address] WBC 4.06 4.0-11.0 RBC 5.41 4.6-6.2 HGB 14.8 13.5-17.9 HCT 47.0 41-54 MCV 86.9 80-100 MCH 27.4 27-33 MCHC 31.5 L 32.0-37.5 PLT 263 150-400 MPV 9.2 7.4-10.4 RDW 14.2 11.5-14.5 Apr 28, 2021 [facility] COMPREHENSIVE METABOLIC Spec imen Type: PLASMA 01:17 PM PANEL+MG No comment enter ed. Ordering Provid er: GISELLE MARTINEZ Report Released Date/Time: Apr 25, 2021 12:00 PM Reporting Lab: [facility] [address] [facility] [address] Performing Lab: [facility] [address] [facility] [address] CREATININE 0.7 0.7-1.2 UREA NITROGEN 16 8-26 [...] Pulse Blood Respiratory SP02 Pain Height Weight Nancy dy Source Pressure Rate Mass Index Apr 25, 146/76 [place] 2021 11:04 mm[Hg] OLIS [place] [facility] Mar 07, 97.8 F 76 157/82 18 /min 96 % 5 [place] 2021 11:00 /min mm[Hg] [facility] Social History: Smoking Status (Most current) and Tobacco Use (All prior to encounter date) This section includes the most current, and the historical, smoking and tobacco-related health factors from the [place] facility where the Encounter took place.Current Smoking Status This section includes the most current smoking, or tobacco-related health factor, from the [place] facility where the Encounter took place. Date/Time Current Smoking Status Comment Facility Apr 25, 2021 11:00 AM VA-TOBACCO NEVER USED [place] [facility] Tobacco Use History This section includes a history of the smoking, or tobacco- related health factors, that were collected on or before the date of the Encounter. The data comes from the [place] facility where the Encounter took place. Date/Time Smoking Status/Tobacco Use Comment [facility] July 09, 2020 02:00 PM VA-TOBACCO FORMER USER [place] [facility] July 09, 2020 02:00 PM VA-TOBACCO QUIT 15 YRS OR MORE [facility] Apr 17, 2019 02:39 PM INPT NO TOBACCO USE IN LAST 30 DAYS [facility] Feb 04, 2019 10:37 AM [place]-TO[place]ACCO NEVER USED [place] [facility] Oct 15, 2018 02:43 PM INPT NO TOBACCO USE IN LAST 30 DAYS [facility] Oct 13, 2018 11:30 PM INPT NO TOBACCO USE IN LAST 30 DAYS [facility] Sep 02, 2018 05:50 PM INPT NO TOBACCO USE IN LAST 30 DAYS [facility] Aug 12, 2018 07:28 PM INPT NO TOBACCO USE IN LAST 30 DAYS [facility] Jan 30, 2018 03:28 PM VA-TOBACCO FORMER USER [place] [facility] Jan 30, 2018 03:28 PM VA-TOBACCO QUIT 15 YRS OR MORE [facility] May 29, 2017 04:53 PM INPT NO TOBACCO USE IN LAST 30 DAYS [facility] Apr 25, 2017 10:44 PM INPT NO TOBACCO USE IN LAST 30 DAYS [facility] Jan 01, 2017 06:40 PM INPT NO TOBACCO USE IN LAST 30 DAYS [facility] Dec 21, 2016 02:43 PM FORMER TOBACCO USER 7Y OR GREATER [facility] Sep 24, 2013 08:52 AM FORMER TOBACCO USER 7Y OR GREATER [facility] Advance Directives: All historical and current Section Date Range: From patient's date of to the date document was created. This section includes ALL of a patient's completed or amended [place] Advance and Rescinded Directives. The entries below indicate that a directive exists for the patient, but an actual copy is not included with this document. The data comes from all [facility]. Date Advance Directives Provider Source May 29, 2017 CLINICAL WARNING CORNELIO FREITAS [facility] May 16, 2017 ADVANCE DIRECTIVE [facility] May 16, 2017 ADVANCE DIRECTIVE DISCUSSION [place]AS[facility]ENITY [place] [facility] May 04, 2017 CLINICAL WARNING [facility]O [facility] May 04, 2017 CLINICAL WARNING ABRAHAMENDERN [facility] Apr 26, 2017 CLINICAL WARNING NANCYJENNIFER KUMAR Whit [facility] Jan 01, 2017 CLINICAL WARNING AYDE WELLS [facility] Jun 09, 2004 ADVANCE DIRECTIVE DARYL VILLARREAL [facility] Jun 07, 2004 ADVANCE DIRECTIVE SHERYL [facility] Radiology Reports: +/- 30 days of [...] the Encounter. The data comes from all [place] treatment facilities. Date/Time Radiology Report Provider Source May 20, 2021 09:03 AM FOOT LEFT 3 VIEWS OR MORE: SEBASTIÁN ROMERO [facility] JESSICA MOJICA PRERNA [id number] [birth year] 8 M Exm Date: MAY 20, 2021@09:03 Req Phys: DEBRA KERNS Loc: [facility] TRIAGE Img Loc: MAIN X-RAY Service: Unknown (Case [id number] COMPLETE) FOOT LEFT 3 VIEWS OR MORE ( RAD Detailed) CPT:39966 Proc Modifiers : WEIGHT BEARING Reason for Study: charcot foot Clinical History: [place] IS NOT under investigation for COVID-19 or is COVID-19 negative charcot foot Responsible provider name and phon e number to notify for critical findings if other than user placing the order and pager listed below: User placing orders pag er: [phone] LAST CREATININE 0.7 (04/28/21) Report Status: Verified Date Reported: MAY 20, 2021 Date Verified: MAY 20, 2021 Hog Counter E-Sig:/ES/SEBASTIÁN ROMERO MD Report: EXAMINATION: FOOT LEFT 3 VIEWS OR MORE, 2 9:03 AM COMPARISON: None available HISTORY: Reason for Study: charcot foot [place] IS NOT under investigation for COVID-19 or is COVID-19 negative charcot foot Responsible provider name and phon e number to notify for critical findings if other than user placing the order and pager listed below: User placing orders pag er: [phone] LAST CREATININE 0.7 (04/28/21) Impression: 3 nonweightbearing [...] Primary Interpreting Staff: SEBASTIÁN ROMERO MD, RADIOLOGIST (Hog Counter) /JRT May 20, 2021 09:03 AM FOOT RIGHT 3 VIEWS OR MORE: SEBASTIÁN ROMERO [facility] JESSICA MOJICA [id number] [birth year] 8 M Exm Date: MAY 20, 2021@09:03 Req Phys: DEBRA KERNS Loc: [facility] TRIAGE Im Loc: MAIN X-RAY Service: Unknown (Case [id number] COMPLETE) FOOT RIGHT 3 VIEWS OR MORE (RAD Detailed) CPT:00437 Proc Modifiers : WEIGHT BEARING Reason for Study: charcot foot Clinical History: [place] IS NOT under investigation for COVID-19 or is COVID-19 negative charcot foot Responsible provider name and phon e number to notify for critical findings if other than user placing the order and pager listed below: User placing orders pag er: [phone] LAST CREATININE 0.7 (04/28/21) Report Status: Verified Date Reported: MAY 20, 2021 Date Verified: MAY 20, 2021 Hog Counter E-Sig:/ES/SEBASTIÁN ROMERO MD Report: EXAMINATION: FOOT RIGHT 3 VIEWS OR MORE, 05/21/19 9:03 AM COMPARISON: 08/02/2020 HISTORY: Reason for Study: charcot foot IS NOT under investigation for COVID-19 or is COVID-19 negative charcot foot Responsible provider name and phon e number to notify for critical findings if other than user placing the order and pager listed below: User placing orders pag er: [phone] LAST CREATININE 0.7 (04/28/21) Impression: 1. 3 [...] Primary Interpreting Staff: SEBASTIÁN ROMERO MD, RADIOLOGIST (Hog Counter) /JRT Apr 28, 2021 09:06 AM MYOCARDIAL PERFUSION PHARMACOLOGIC STR ESS/REST: DARIN BAKER [facility] JESSICA MOJICA [id number] -[birth year] 8 M Exm Date: APR 28, 2021@09:06 Req Phys: GISELLE MARTINEZ Pat Loc: [facility] PACT SAPPHIRE 4E (Req'g Lo Img Loc: NUC MED Service: Unknown (Case [id number] COMPLETE) MYOCARDIAL PERFUSION (SPECT )-MULT(NM Detailed) CPT:54874 Reason for Study: CAD, PAD risk stratefication prior to surgery 05/02 (Case [id number] COMPLETE) TC-99M SESTAMIBI (CARDIOLIT E), PE(NM Detailed) CPT:A9500 (Case [id number] COMPLETE) CARDIOVASCULAR STRESS TEST (NM Detailed) CPT:53931 Clinical History: Is this patient on Observation Status? No surgery 05/02/21. please schedule prior if possi ble h/o CAD, PAD. limited ability to walk due to fo ot issues [place] IS NOT under investigation for COVID-19 or is COVID-19 negative 75 yo M with Responsible provider name and phon e number to notify for critical findings if other than user placing the order and pager listed below: User placing orders pag er: [phone] LAST CREATININE 0.6 L (12/15/20) Is the patient taking/taken dipyridamole/aggren ox in the last week? No Has patient taken theophylline product s in the last 3 days? No Patient has been educated not to consu me coffee, Sanka, tea or soft drinks 8 hours prior to test? Yes Report Status: Verified Date Reported: APR 28, 2021 Date Verified: APR 28, 2021 Hog Counter E-Sig:/ES/DARIN BAKER MD Report: Regadenoson myocardial perfusion [...] Encounter Note(s) Provider Source Apr 25, 2021 12:04 PM SATP MEDICATION MGT NOTE: FRANCES GOODE [facility] LOCAL TITLE: CHRONIC OPIOID MANAGEMENT PROGRAM STANDARD TITLE: SATP MEDICATION MGT NOTE DATE OF NOTE: APR 25, 2021@12:04 ENTRY DATE: APR 25, 2021@12:04:49 AUTHOR: FRANCES GOODE EXP COSIGNER: URGENCY: STATUS: COMPLETED CHRONIC OPIOID MANAGEMENT PROGRAM Has ADDEN DA Medication: Oxycodone 5mg/Acetaminophen 325mg Due to mail out on (date): Apr Date patient was last seen by Primary Opioid Pre scriber: 02/23/21 Date of last Prescription Monitoring Program in quiry: 12/16/20 MEDD (as prescribed): 45 (Morphine Equivalent Daily Dose) Date of iMED Consent: 02/28/19 Urine Drug Screen: not done within 1 year /darya Goode LPN Staff Nurse Signed: 04/25/2021 12:06 Receipt Acknowledged By: 04/25/2021 16:00 /vinicio/ Giselle Martinez MD Staff Physician 06/24/2021 ADDENDUM STATUS: COMPLETED Patient left a message requesting a refill of hi s percocet. This press writer contacted [facility] to see if he was still admitted there, and staff confirmed he is (and did not have an anticipated discharge date as of yet). Contacted patient on his felipe l phone, and told him [facility]. Patient verbalized understanding. He stated he has no idea when that will be, but he will call once he is home. FYI to PCP. /darya Goode LPN Staff Nurse Signed: 06/24/2021 10:16 Receipt Acknowledged By: * AWAITING SIGNATURE * GISELLE MARTINEZ
--- OUTSIDE RECORDS SUMMARY | 2021-12-23 17:13 | XMS_ITS | Encounter Summary ---
:1945 Author Organization [facility] Address [address] [place] [id number] Support Name Relationship Address Phone FRANCES GANDARA Unavailable [address] [place] [address] FRANCES GANDARA Unavailable [address] [place] [address] FRANCES GANDARA Unavailable [address] [place] [address] FRANCES GANDARA Unavailable [address] [place] [address] Insurance Providers: All historical and current Section [...] MEDICARE MEDICARE PART Apr 19, PART A [id number] Whit [place] (WNR) (M) A 2007 50A [phone] JESSICA MEDICARE MEDICARE PART Apr 19, PART A [id number] Whit [place] (WNR) (M) A 2007 [id number] [phone] JESSICA Selected Encounter This section includes the information on record at [place] for the Encounter. Date/Time Encounter Type Encounter Description Reason Provider Source Apr 25, 2021 02:15 Outpatient Encounter TELEPHONE PRIMARY CARE IHE Encounter Template Text not used by [...] appointments. The data comes from all [facility]. Appointment Date/Time Appointment Type Appointment Facili ty Name Apr 28, 2021 09:00 AM AMBULATORY - NONE [facility] Apr 28, 2021 09:45 AM AMBULATORY - NONE [facility] Apr 28, 2021 10:00 AM AMBULATORY - MEDICINE [facility] May 10, 2021 03:20 PM AMBULATORY - NONE [facility] May 11, 2021 11:45 AM AMBULATORY - MEDICINE [facility] May 11, 2021 12:00 PM AMBULATORY - MEDICINE [facility] May 11, 2021 01:00 PM AMBULATORY - MEDICINE [facility] May 19, 2021 02:30 PM AMBULATORY - NONE [facility] May 19, 2021 04:00 PM AMBULATORY - MEDICINE [facility] May 20, 2021 09:00 AM AMBULATORY - NONE [facility] May 20, 2021 10:00 AM AMBULATORY - SURGERY [facility] May 24, 2021 03:30 PM AMBULATORY - NONE [facility] Jun 02, 2021 02:40 PM AMBULATORY - MEDICINE [facility] Jun 06, 2021 02:30 PM AMBULATORY - NONE [facility] Jun 09, 2021 02:00 PM AMBULATORY - SURGERY [facility] June 21, 2021 01:45 PM AMBULATORY - NONE [facility] June 22, 2021 09:30 AM AMBULATORY - NONE [facility] June 22, 2021 12:30 PM AMBULATORY - NONE [facility] June 22, 2021 01:30 PM AMBULATORY - SURGERY [facility] June 22, 2021 02:30 PM AMBULATORY - NONE [facility] Active, Pending, and Scheduled Orders This section includes a listing of several types of active, pending, and scheduled orders, including clinic medications orders, diagnostic test orders, procedure orders and consult orders; where the start date of the order is 45 days before the date of the Encounter or 45 days after the date of the Encounter. The data comes from all [facility]. Test Date/Time Test Type Test Details Facility Name May 11, 2021 02:31 PM Pharmacy - Clinic Infusion [facility] Order Lab Results: +/- 30 days of [...] Reference Range Comment Apr 28, 2021 03:12 [facility] COVID-19 AND FLU SCRN Spe cimen Type: NASOPHARYNGEAL PM PANEL (FLUVID) No comment enter ed. Ordering Provid er: CARIDAD DENNIS Report Released Date/Time: Apr 28, 2021 02:10 PM Reporting Lab: [facility] [address] [facility] [id number] Performing Lab: [facility] [address] [facility] [address] COVID-19 PCR (FLUVID) Not Detected Not D etected FLU A PCR (FLUVID) Not Detected Not Dete cted FLU B PCR (FLUVID) Not Detected Not Dete cted Apr 28, 2021 01:17 PM [facility] HEMOGLOBIN A1C Specim en Type: BLOOD No comment enter ed. Ordering Provid er: CARIDAD DENNIS Report Released Date/Time: Apr 25, 2021 12:00 PM Reporting Lab: [facility] [address] [facility] [address] Performing Lab: [facility] [address] [facility] [address] HEMOGLOBIN A1C 8.0 H 4.0-6.0 Apr 28, 2021 01:17 [facility] TSH W/REFLEX TO FREE Spec imen Type: PLASMA PM T4 No comment enter ed. Ordering Provid er: CARIDAD DENNIS Report Released Date/Time: Apr 25, 2021 12:00 PM Reporting Lab: [facility] [address] [facility] [address] Performing Lab: [facility] [address] [facility] [address] TSH 0.73 0.35-4.94 Apr 28, 2021 01:17 [facility] PROTHROMBIN TIME/INR Spec imen Type: PLASMA PM No comment enter ed. Ordering Provid er: CARIDAD DENNIS Report Released Date/Time: Apr 25, 2021 12:00 PM Reporting Lab: [facility] [address] [facility] [address] Performing Lab: [facility] [address] [facility] [address] .INR 1.1 0.8-1.1 .PT 13.2 H 9.4-12.5 Apr 28, 2021 01:17 PM [facility] CBC Specim en Type: BLOOD No comment enter ed. Ordering Provid er: CARIDAD DENNIS Report Released Date/Time: Apr 25, 2021 12:00 PM Reporting Lab: [facility] [address] [facility] [address] Performing Lab: [facility] [address] WBC 4.06 4.0-11.0 RBC 5.41 4.6-6.2 HGB 14.8 13.5-17.9 HCT 47.0 41-54 MCV 86.9 80-100 MCH 27.4 27-33 MCHC 31.5 L 32.0-37.5 PLT 263 150-400 MPV 9.2 7.4-10.4 RDW 14.2 11.5-14.5 Apr 28, 2021 [facility] COMPREHENSIVE METABOLIC Spec imen Type: PLASMA 01:17 PM PANEL+MG No comment enter ed. Ordering Provid er: CARIDAD DENNIS Report Released Date/Time: Apr 25, 2021 12:00 PM Reporting Lab: [facility] [address] [facility] [address] Performing Lab: [facility] [address] CREATININE 0.7 0.7-1.2 UREA NITROGEN 16 8-26 [...] 25, 146/76 [place] 2021 11:04 mm[Hg] [facility] Mar 07, 97.8 F 76 157/82 18 /min 96 % 5 [place] 2021 11:00 /min mm[Hg] [facility] Social History: Smoking Status (Most [...] 11:00 AM VA-TOBACCO NEVER USED [place] [facility] Tobacco Use History This section includes a history of the smoking, or tobacco- related health factors, that were collected on or before the date of the Encounter. The data comes from the [place] facility where the Encounter took place. Date/Time Smoking Status/Tobacco Use Comment [facility] July 09, 2020 02:00 PM VA-TOBACCO FORMER USER [place] [facility] July 09, 2020 02:00 PM VA-TOBACCO QUIT 15 YRS OR MORE [facility] Apr 17, 2019 02:39 PM INPT NO TOBACCO USE IN LAST 30 DAYS [facility] Feb 04, 2019 10:37 AM [place]-TOBACCO NEVER USED [place] [facility] Oct 15, 2018 02:43 PM INPT NO TOBACCO USE IN LAST 30 DAYS [facility] Oct 13, 2018 11:30 PM INPT NO TOBACCO USE IN LAST 30 DAYS [facility] Sep 02, 2018 05:50 PM INPT NO TOBACCO USE IN LAST 30 DAYS [facility] Aug 12, 2018 07:28 PM INPT NO TOBACCO USE IN LAST 30 DAYS [facility] Jan 30, 2018 03:28 PM VA-TOBACCO FORMER USER [place] [facility] Jan 30, 2018 03:28 PM VA-TOBACCO QUIT 15 YRS OR MORE [facility] May 29, 2017 04:53 PM INPT NO TOBACCO USE IN LAST 30 DAYS [facility] Apr 25, 2017 10:44 PM INPT NO TOBACCO USE IN LAST 30 DAYS [facility] Jan 01, 2017 06:40 PM INPT NO TOBACCO USE IN LAST 30 DAYS [facility] Dec 21, 2016 02:43 PM FORMER TOBACCO USER 7Y OR GREATER [facility] Sep 24, 2013 08:52 AM FORMER TOBACCO USER 7Y OR GREATER [facility] Advance Directives: All historical and current Section [...] May 29, 2017 CLINICAL WARNING KYLE FREITASKINGSTON Toedora Cordova [facility] May 16, 2017 ADVANCE DIRECTIVE [facility]EN[facility] May 16, 2017 ADVANCE DIRECTIVE DISCUSSION CHITRASERENITYENRRIQUE [place] [facility] May 04, 2017 CLINICAL WARNING MAGO DIAMOND [facility] May 04, 2017 CLINICAL WARNING GAEL ROSARIO [facility] Apr 26, 2017 CLINICAL WARNING JENNIFER DE LEON Whit [facility] Jan 01, 2017 CLINICAL WARNING WELLSAYDE HAGEN Jarrod [facility] Jun 09, 2004 ADVANCE DIRECTIVE DARYL VILLARREAL [facility] Jun 07, 2004 ADVANCE DIRECTIVE SHERYL HOLLOWAY [facility] Radiology Reports: +/- 30 days of the [...] the Encounter. The data comes from all [facility] facilities. Date/Time Radiology Report Provider Source May 20, 2021 09:03 AM FOOT LEFT 3 VIEWS OR MORE: SEBASTIÁN ROMERO [facility] HEATH MOJICASydney GRAFF [id number] -[birth year] M Exm Date: MAY 20, 2021@09:03 Req Phys: DEBRA KERNS Loc: [facility] TRIAGE Img Loc: MAIN X-RAY Service: Unknown (Case [id number] COMPLETE) FOOT LEFT 3 VIEWS OR MORE ( RAD Detailed) CPT:11606 Proc Modifiers : WEIGHT BEARING Reason for Study: charcot foot Clinical History: IS NOT under investigation for COVID-19 or is COVID-19 negative charcot foot Responsible provider name and phon e number to notify for critical findings if other than user placing the order and pager listed below: User placing orders pag er: [phone] LAST CREATININE 0.7 (04/28/21) Report Status: Verified Date Reported: MAY 20, 2021 Date Verified: MAY 20, 2021 Gluer Machine Setup Operator E-Sig:/ES/SEBASTIÁN ROMERO MD Report: EXAMINATION: FOOT LEFT 3 VIEWS OR MORE, 2 9:03 AM COMPARISON: None available HISTORY: Reason for Study: charcot foot IS NOT under investigation for COVID-19 or is COVID-19 negative charcot foot Responsible provider name and phon e number to notify for critical findings if other than user placing the order and pager listed below: User placing orders pag er: [phone] LAST CREATININE 0.7 (04/28/21) Impression: 3 nonweightbearing [...] Primary Interpreting Staff: SEBASTIÁN ROMERO MD, RADIOLOGIST (Gluer Machine Setup Operator) /JRT May 20, 2021 09:03 AM FOOT RIGHT 3 VIEWS OR MORE: SEBASTIÁN ROMERO [facility] JESSICA MOJICA [id number] -[birth year] 8 M Exm Date: MAY 20, 2021@09:03 Req Phys: DEBRA KERNS Loc: [facility] TRIAGE Img Loc: MAIN X-RAY Service: Unknown (Case [id number] COMPLETE) FOOT RIGHT 3 VIEWS OR MORE (RAD Detailed) CPT:13473 Proc Modifiers : WEIGHT BEARING Reason for Study: charcot foot Clinical History: IS NOT under investigation for COVID-19 or is COVID-19 negative charcot foot Responsible provider name and phon e number to notify for critical findings if other than user placing the order and pager listed below: User placing orders pag er: [phone] LAST CREATININE 0.7 (04/28/21) Report Status: Verified Date Reported: MAY 20, 2021 Date Verified: MAY 20, 2021 Gluer Machine Setup Operator E-Sig:/ES/SEBASTIÁN ROMERO MD Report: EXAMINATION: FOOT RIGHT 3 VIEWS OR MORE, 05/21/19 9:03 AM COMPARISON: 08/02/2020 HISTORY: Reason for Study: charcot foot [place] IS NOT under investigation for COVID-19 or is COVID-19 negative charcot foot Responsible provider name and phon e number to notify for critical findings if other than user placing the order and pager listed below: User placing orders pag er: [phone] LAST CREATININE 0.7 (04/28/21) Impression: 1. 3 [...] Primary Interpreting Staff: SEBASTIÁN ROMERO MD, RADIOLOGIST (Gluer Machine Setup Operator) /JRT Apr 28, 2021 09:06 AM MYOCARDIAL PERFUSION PHARMACOLOGIC STR ESS/REST: DARIN BAKER [facility] JESSICA MOJICA [id number] -[birth year] 8 M Exm Date: APR 28, 2021@09:06 Req Phys: CARIDAD DENNIS Pat Loc: [facility] 4E (Req'g Lo Img Loc: NUC MED Service: Unknown (Case [id number] COMPLETE) MYOCARDIAL PERFUSION (SPECT )-MULT(NM Detailed) CPT:91770 Reason for Study: CAD, PAD risk stratefication prior to surgery 05/02 (Case [id number] COMPLETE) TC-99M SESTAMIBI (CARDIOLIT E), PE(NM Detailed) CPT:A9500 (Case [id number] COMPLETE) CARDIOVASCULAR STRESS TEST (NM Detailed) CPT:56459 Clinical History: Is this patient on Observation [...] and pager listed below: User placing orders [facility] er: [phone] LAST CREATININE 0.6 L (12/15/20) Is the patient taking/taken dipyridamole/aggren ox in the last week? No Has patient taken theophylline product s in the last 3 days? No Patient has been educated not to consu me coffee, Sanka, tea or soft drinks 8 hours prior to test? Yes Report Status: Verified Date Reported: APR 28, 2021 Date Verified: APR 28, 2021 Gluer Machine Setup Operator E-Sig:/ES/DARIN BAKER MD Report: Regadenoson myocardial perfusion [...] Encounter Note(s) Provider Source Apr 25, 2021 02:15 PM SOCIAL WORK CONSULT: DEISY ARGUETA [facility] LOCAL TITLE: SOCIAL WORK CONSULT C STANDARD TITLE: SOCIAL WORK CONSULT DATE OF NOTE: APR 25, 2021@14:15 ENTRY DATE: APR 25, 2021@14:15:26 AUTHOR: DEISY ARGUETA EXP COSIGNER: URGENCY: STATUS: COMPLETED PCSW received the following consult: getting surgery at [facility] per [facility] need cab to go to surgery and wants to know reim bursement Called and spoke with (ph ). seeking reimbursement for cab transportation to [facility] surgery. Referred to call Travel dept. states he already spoke with Travel dept and they stated they will reimburse him for cab rides to his upcoming surg octavio and several appointments after, but he [facility] Discussed that should continue to work with Travel regarding this. Vivek deutsch agreeable. /vinicio/ VIDYA LEAHY, [facility] GUEST ROOM INSPECTOR Signed: 04/25/2021 14:18
--- OUTSIDE RECORDS SUMMARY | 2021-12-23 17:14 | XMS_ITS | Encounter Summary ---
:1945 Author Organization [facility] Address [address] [place] [id number] Support Name Relationship Address Phone FRANCES GANDARA Unavailable [address] [place] [address] FRANCES GANDARA Unavailable [address] [place] [address] FRANCES GANDARA Unavailable [address] [place] [address] FRANCES GANDARA Unavailable [address] [place] [address] Insurance Providers: All historical and current Section [...] MEDICARE MEDICARE PART Apr 19, PART A [id number] [place] (WNR) (M) A 2007 50A [phone] JESSICA MEDICARE MEDICARE PART Apr 19, PART A [id number] [place] (WNR) (M) A 2007 [id number] [phone] JESSICA Selected Encounter This section includes the information on record at [place] for the Encounter. Date/Time Encounter Type Encounter Description Reason Provider Source Apr 28, 2021 11:39 Outpatient Encounter EVENT (HISTORICAL) AM E Encounter Template Text not used by [place] [...] 20 appointments. The data comes from all [facility]. Appointment Date/Time Appointment Type Appointment Facili ty Name May 10, 2021 03:20 PM AMBULATORY - NONE [facility] May 11, 2021 11:45 AM AMBULATORY - MEDICINE [facility] May 11, 2021 12:00 PM AMBULATORY - MEDICINE [facility] May 11, 2021 01:00 PM AMBULATORY - MEDICINE [facility] May 19, 2021 02:30 PM AMBULATORY - NONE [facility] May 19, 2021 04:00 PM AMBULATORY - MEDICINE [facility] May 20, 2021 09:00 AM AMBULATORY - NONE [facility] May 20, 2021 10:00 AM AMBULATORY - SURGERY [facility] May 24, 2021 03:30 PM AMBULATORY - NONE [facility] Jun 02, 2021 02:40 PM AMBULATORY - MEDICINE [facility] Jun 06, 2021 02:30 PM AMBULATORY - NONE [facility] Jun 09, 2021 02:00 PM AMBULATORY - SURGERY [facility] June 21, 2021 01:45 PM AMBULATORY - NONE [facility] June 22, 2021 09:30 AM AMBULATORY - NONE [facility] June 22, 2021 12:30 PM AMBULATORY - NONE [facility] June 22, 2021 01:30 PM AMBULATORY - SURGERY [facility] June 22, 2021 02:30 PM AMBULATORY - NONE [facility] June 27, 2021 12:30 PM AMBULATORY - NONE [facility] June 27, 2021 01:30 PM AMBULATORY - NONE [facility] June 28, 2021 11:00 AM AMBULATORY - NONE [facility] Active, Pending, [...] the Encounter. The data comes from all [facility]. Test Date/Time Test Type Test [...] Reporting Lab: [facility] [address] [facility] [id number] Performing Lab: [facility] [address] [facility] [address] COVID-19 PCR (FLUVID) Not Detected Not D [...] Lab: [facility] [address] [facility] [address] Performing Lab: [facility] [address] [facility] [address] HEMOGLOBIN A1C 8.0 H 4.0-6.0 Apr 28, 2021 01:17 [facility] TSH W/REFLEX TO FREE Spec imen Type: PLASMA PM T4 No comment enter ed. Ordering Provid er: CARIDAD DENNIS Report Released Date/Time: Apr 25, 2021 12:00 PM Reporting Lab: [facility] [address] [facility] [address] Performing Lab: [facility] [address] [facility] [address] TSH 0.73 0.35-4.94 Apr 28, 2021 01:17 PM [facility] CBC Specim en Type: BLOOD No comment enter ed. Ordering Provid er: CARIDAD DENNIS Report Released Date/Time: Apr 25, 2021 12:00 PM Reporting Lab: [facility] [address] [facility] [address] Performing Lab: [facility] [address] [facility] [address] WBC 4.06 4.0-11.0 RBC 5.41 4.6-6.2 HGB 14.8 13.5-17.9 HCT 47.0 41-54 MCV 86.9 80-100 MCH 27.4 27-33 MCHC 31.5 L 32.0-37.5 PLT 263 150-400 MPV 9.2 7.4-10.4 RDW 14.2 11.5-14.5 Apr 28, 2021 01:17 [facility] PROTHROMBIN TIME/INR Spec imen Type: PLASMA PM No comment enter ed. Ordering Provid er: CARIDAD DENNIS Report Released Date/Time: Apr 25, 2021 12:00 PM Reporting Lab: [facility] [address] [facility] [address] Performing Lab: [facility] [address] .INR 1.1 0.8-1.1 .PT 13.2 H 9.4-12.5 Apr 28, 2021 [facility] COMPREHENSIVE METABOLIC Spec imen Type: PLASMA 01:17 PM PANEL+MG No comment enter ed. Ordering Provid er: CARIDAD DENNIS Report Released Date/Time: Apr 25, 2021 12:00 PM Reporting Lab: [facility] [address] [facility] [address] Performing Lab: [facility] [address] IN[address] THE [facility] [address] CREATININE 0.7 0.7-1.2 UREA NITROGEN 16 8-26 [...] smoking and tobacco-related health factors from the [facility] where the Encounter took place.Current Smoking Status This section includes the most current smoking, or tobacco-related health factor, from the [place] facility where the Encounter took place. Date/Time Current Smoking Status Comment Facility Apr 25, 2021 11:00 AM VA-TOBACCO NEVER USED [place] [facility] Tobacco Use History This section includes a history of the smoking, or tobacco- related health factors, that were collected on or before the date of the Encounter. The data comes from the [facility] where the Encounter took place. Date/Time Smoking Status/Tobacco Use Comment [facility] July 09, 2020 02:00 PM VA-TOBACCO FORMER USER [place] [facility] July 09, 2020 02:00 PM VA-TOBACCO QUIT 15 YRS OR MORE [facility] Apr 17, 2019 02:39 PM INPT NO TOBACCO USE IN LAST 30 DAYS [facility] Feb 04, 2019 10:37 AM [place] NEVER USED [place] [facility] Oct 15, 2018 02:43 [...] 2018 03:28 PM [facility]-TOBACCO FORMER USER [facility] Jan 30, 2018 03:28 PM [place]-TOBACCO QUIT 15 YRS OR MORE [facility] [...] May 29, 2017 CLINICAL WARNING CORNELIO FREITAS [facility] May 16, 2017 ADVANCE DIRECTIVE SERENITY BUENROSTRO [facility] May 16, 2017 ADVANCE DIRECTIVE DISCUSSION SERENITY BUENROSTRO [place] [facility] May 04, 2017 CLINICAL WARNING MAGO DIAMOND [facility] May 04, 2017 CLINICAL WARNING GAEL ROSARIO [facility] Apr 26, 2017 CLINICAL WARNING JENNIFER DE LEON [facility] Jan 01, 2017 CLINICAL WARNING AYDE WELLS [facility] Jun 09, 2004 ADVANCE DIRECTIVE DARYL VILLARREAL Sebastian [facility] Jun 07, 2004 ADVANCE DIRECTIVE [...] LEFT 3 VIEWS OR MORE: SEBASTIÁN ROMERO [facility] JESSICA MOJICA [id number] [birth year] 8 M Exm Date: MAY 20, 2021@09:03 Req Phys: DEBRA KERNS Loc: [facility] VISN23 [facility] TRIAGE Img Loc: MAIN X-RAY Service: Unknown (Case [id number] COMPLETE) FOOT LEFT 3 VIEWS OR MORE ( RAD Detailed) CPT:49039 Proc Modifiers : WEIGHT BEARING Reason for Study: charcot foot Clinical History: [place] IS NOT under investigation for COVID-19 or is COVID-19 negative charcot foot Responsible provider name and phon e number to notify for critical findings if other than user placing the order and pager listed below: User placing orders pag er: [phone] LAST CREATININE 0.7 (04/28/21) Report Status: Verified Date Reported: MAY 20, 2021 Date Verified: MAY 20, 2021 Promotions Specialist E-Sig:/ES/SEBASTIÁN ROMERO MD Report: EXAMINATION: FOOT LEFT 3 VIEWS OR MORE, 2 9:03 AM COMPARISON: None available HISTORY: Reason for Study: charcot foot [place] IS NOT under investigation for COVID-19 or is COVID-19 negative charcot foot Responsible provider name and phon e number to notify for critical findings if other than user placing the order and pager listed below: User placing orders [facility] er: [phone] LAST CREATININE 0.7 (04/28/21) Impression: 3 nonweightbearing [...] Primary Interpreting Staff: SEBASTIÁN ROMERO MD, RADIOLOGIST (Promotions Specialist) /JRT May 20, 2021 09:03 AM FOOT RIGHT 3 VIEWS OR MORE: SEBASTIÁN ROMERO [facility] JESS[place] MOJ[place] [id number] -[birth year] 8 M Exm Date: MAY 20, 2021@09:03 Req Phys: DEBRA KERNS Loc: [facility] VISN23 [facility] TRIAGE Img Loc: MAIN X-RAY Service: Unknown (Case [id number] COMPLETE) FOOT RIGHT 3 VIEWS OR MORE (RAD Detailed) CPT:37544 Proc Modifiers : WEIGHT BEARING Reason for Study: charcot foot Clinical History: [place] IS NOT under investigation for COVID-19 or is COVID-19 negative charcot foot Responsible provider name and phon e number to notify for critical findings if other than user placing the order and pager listed below: User placing orders pag er: [phone] LAST CREATININE 0.7 (04/28/21) Report Status: Verified Date Reported: MAY 20, 2021 Date Verified: MAY 20, 2021 Promotions Specialist E-Sig:/ES/SEBASTIÁN ROMERO MD Report: EXAMINATION: FOOT RIGHT 3 VIEWS OR MORE, 05/21/19 9:03 AM COMPARISON: 08/02/2020 HISTORY: Reason for Study: charcot foot IS NOT under investigation for COVID-19 or is COVID-19 negative charcot foot Responsible provider name and phon e number to notify for critical findings if other than user placing the order and pager listed below: User placing orders pag er: [phone] LAST CREATININE 0.7 (04/28/21) Impression: 1. 3 [...] Primary Interpreting Staff: SEBASTIÁN ROMERO MD, RADIOLOGIST (Promotions Specialist) /JRT Apr 28, 2021 09:06 AM MYOCARDIAL PERFUSION PHARMACOLOGIC STR ESS/REST: DARIN BAKER [facility] JESSICA MOJICA [id number] -[birth year] 8 M Ex Date: APR 28, 2021@09:06 Req Phys: CARIDAD DENNIS Pat Loc: [facility] PACT SAPPHIRE 4E (Req'g Lo Img Loc: NUC MED Service: Unknown (Case [id number] COMPLETE) MYOCARDIAL PERFUSION (SPECT )-MULT(IA Detailed) CPT:55032 Reason for Study: CAD, PAD risk stratefication prior to surgery 05/02 (Case [id number] COMPLETE) TC-99M SESTAMIBI (CARDIOLIT E), PE(NM Detailed) CPT:A9500 (Case [id number] COMPLETE) CARDIOVASCULAR STRESS TEST (IA Detailed) CPT:10228 Clinical History: Is this patient on Observation Status? No surgery 3/14/22. please schedule prior if possi ble h/o CAD, PAD. limited ability to walk due to fo ot issues [place] IS NOT under investigation for COVID-19 or is COVID-19 negative 75 yo M with Responsible provider name and phon e number to notify for critical findings if other than user placing the order and pager listed below: User placing orders [facility] er: [phone] LAST CREATININE 0.6 L (12/15/20) Is the patient taking/taken dipyridamole/aggren ox in the last week? No Has patient taken theophylline product s in the last 3 days? No Patient has been educated not to consu me coffee, Sanka, tea or soft drinks 8 hours prior to test? Yes Report Status: Verified Date Reported: APR 28, 2021 Date Verified: APR 28, 2021 Promotions Specialist E-Sig:/ES/DARIN BAKER MD Report: Regadenoson myocardial perfusion [...]
--- OUTSIDE RECORDS SUMMARY | 2021-12-23 17:17 | XMS_ITS | Encounter Summary ---
:1945 Author Organization [facility] Address [address] [place] [id number] Support Name Relationship Address Phone FRANCES GANDARA Unavailable [address] [place] [address] FRANCES GANDARA Unavailable [address] [place] [address] FRANCES GANDARA Unavailable [address] [place] [address] FRANCES GANDARA Unavailable [address] [place] [address] Insurance Providers: All historical and current Section [...] MEDICARE MEDICARE PART Apr 19, PART A [id number] Whit MOJICA (WNR) (M) A 2007 [id number] JESSICA MEDICARE MEDICARE PART Apr 19, PART A [id number] Whit MOJICA (WNR) (M) A 2007 [id number] [id number] JESSICA Selected Encounter This section includes the information on record at DC for the Encounter. Date/Time Encounter Type Encounter Description Reason Provider Source Apr 28, 2021 03:59 Outpatient Encounter TELEPHONE TRIAGE PM IHE Encounter [...] The data comes from all [place] treatment [facility]. Appointment Date/Time Appointment Type Appointment Facili ty Name May 10, 2021 03:20 PM AMBULATORY - NONE [facility] May 11, 2021 11:45 AM AMBULATORY - MEDICINE [facility] May 11, 2021 12:00 PM AMBULATORY - MEDICINE [facility] May 11, 2021 01:00 PM AMBULATORY - MEDICINE [facility] May 19, 2021 02:30 PM AMBULATORY - NONE [facility] May 19, 2021 04:00 PM AMBULATORY - MEDICINE [facility] May 20, 2021 09:00 AM AMBULATORY - NONE [facility] May 20, 2021 10:00 AM AMBULATORY - SURGERY [facility] May 24, 2021 03:30 PM AMBULATORY - NONE [facility] Jun 02, 2021 02:40 PM AMBULATORY - MEDICINE [facility] Jun 06, 2021 02:30 PM AMBULATORY - NONE [facility] Jun 09, 2021 02:00 PM AMBULATORY - SURGERY [facility] June 21, 2021 01:45 PM AMBULATORY - NONE [facility] June 22, 2021 09:30 AM AMBULATORY - NONE [facility] June 22, 2021 12:30 PM AMBULATORY - NONE [facility] June 22, 2021 01:30 PM AMBULATORY - SURGERY [facility] June 22, 2021 02:30 PM AMBULATORY - NONE [facility] June 27, 2021 12:30 PM AMBULATORY - NONE [facility] June 27, 2021 01:30 PM AMBULATORY - NONE [facility] June 28, 2021 11:00 AM AMBULATORY - NONE [facility] Active, Pending, and [...] the Encounter. The data comes from all [facility]. Test Date/Time Test Type Test Details Facility Name May 11, 2021 02:31 PM Pharmacy - Clinic Infusion [facility] Order Lab Results: +/- 30 days of [...] Reference Range Comment Apr 28, 2021 03:12 [facility] COVID-19 AND FLU SCRN Spe cimen Type: NASOPHARYNGEAL PM PANEL (FLUVID) No comment enter ed. Ordering Provid er: GISELLE MARTINEZ Report Released Date/Time: Apr 28, 2021 02:10 PM Reporting Lab: [facility] [address] [facility] [address] Performing Lab: [facility] [address] [facility] [address] COVID-19 PCR (FLUVID) Not Detected Not D etected FLU A PCR (FLUVID) Not Detected Not Dete cted FLU B PCR (FLUVID) Not Detected Not Dete cted Apr 28, 2021 01:17 PM [facility] HEMOGLOBIN A1C Specim en Type: BLOOD No comment enter ed. Ordering Provid er: GISELLE MARTINEZ Report Released Date/Time: Apr 25, 2021 12:00 PM Reporting Lab: [facility] [address] [facility] [address] Performing Lab: [facility] [address] [facility] [address] HEMOGLOBIN A1C 8.0 H 4.0-6.0 Apr 28, 2021 01:17 [facility] PROTHROMBIN TIME/INR Spec imen Type: PLASMA PM No comment enter ed. Ordering Provid er: GISELLE MARTINEZ Report Released Date/Time: Apr 25, 2021 12:00 PM Reporting Lab: [facility] [address] [facility] [address] Performing Lab: [facility] [address] [facility] [address] .INR 1.1 0.8-1.1 .PT 13.2 H 9.4-12.5 Apr 28, 2021 01:17 PM [facility] CBC Specim en Type: BLOOD No comment enter ed. Ordering Provid er: GISELLE MARTINEZ Report Released Date/Time: Apr 25, 2021 12:00 PM Reporting Lab: [facility] [address] [facility] [address] Performing Lab: [facility] [address] [facility] [address] WBC 4.06 4.0-11.0 RBC 5.41 4.6-6.2 HGB 14.8 13.5-17.9 HCT 47.0 41-54 MCV 86.9 80-100 MCH 27.4 27-33 MCHC 31.5 L 32.0-37.5 PLT 263 150-400 MPV 9.2 7.4-10.4 RDW 14.2 11.5-14.5 Apr 28, 2021 01:17 [facility] TSH W/REFLEX TO FREE Spec imen Type: PLASMA PM T4 No comment enter ed. Ordering Provid er: GISELLE MARTINEZ Report Released Date/Time: Apr 25, 2021 12:00 PM Reporting Lab: [facility] [address] Performing Lab: [facility] [address] TSH 0.73 0.35-4.94 Apr 28, 2021 [facility] COMPREHENSIVE METABOLIC Spec imen Type: PLASMA 01:17 PM PANEL+MG No comment enter ed. Ordering Provid er: GISELLE MARTINEZ Report Released Date/Time: Apr 25, 2021 12:00 PM Reporting Lab: [facility] [address] Performing Lab: [facility] [address] CREATININE 0.7 0.7-1.2 UREA NITROGEN 16 8-26 [...] tobacco-related health factors from the [facility] where the Encounter took place.Current Smoking Status This section includes the most current smoking, or tobacco-related health factor, from the [place] facility where the Encounter took place. Date/Time Current Smoking Status Comment Facility Apr 25, 2021 11:00 AM VA-TOBACCO NEVER USED [place] [facility] Tobacco Use History This section includes a history of the smoking, or tobacco- related health factors, that were collected on or before the date of the Encounter. The data comes from the [facility] where the Encounter took place. Date/Time Smoking Status/Tobacco Use Comment [facility] July 09, 2020 02:00 PM VA-TOBACCO FORMER USER [place] [facility] July 09, 2020 02:00 PM VA-TOBACCO QUIT 15 YRS OR MORE [facility] Apr 17, 2019 02:39 PM INPT NO TOBACCO USE IN LAST 30 DAYS [facility] Feb 04, 2019 10:37 AM DC-TOBACCO NEVER USED [place] [facility] Oct 15, 2018 02:43 PM INPT NO TOBACCO USE IN LAST 30 DAYS [facility] Oct 13, 2018 11:30 PM INPT NO TOBACCO USE IN LAST 30 DAYS [facility] Sep 02, 2018 05:50 PM INPT NO TOBACCO USE IN LAST 30 DAYS [facility] Aug 12, 2018 07:28 PM INPT NO TOBACCO USE IN LAST 30 DAYS [facility] Jan 30, 2018 03:28 PM VA-TOBACCO FORMER USER [place] [facility] Jan 30, 2018 03:28 PM VA-TOBACCO QUIT 15 YRS OR MORE [facility] May 29, 2017 04:53 PM INPT NO TOBACCO USE IN LAST 30 DAYS [facility] Apr 25, 2017 10:44 PM INPT NO TOBACCO USE IN LAST 30 DAYS [facility] Jan 01, 2017 06:40 PM INPT NO TOBACCO USE IN LAST 30 DAYS [facility] Dec 21, 2016 02:43 PM FORMER TOBACCO USER 7Y OR GREATER [facility] Sep 24, 2013 08:52 AM FORMER TOBACCO USER 7Y OR GREATER [facility] Advance Directives: All [...] May 29, 2017 CLINICAL WARNING CORNELIO FREITAS [facility] May 16, 2017 ADVANCE DIRECTIVE SERENITY BUENROSTRO [facility] May 16, 2017 ADVANCE DIRECTIVE DISCUSSION CHITRACALEBSERENITY Trey [place] [facility] May 04, 2017 CLINICAL WARNING MAGO DIAMOND [place] [facility] May 04, 2017 CLINICAL WARNING GAEL ROSARIO [facility] Apr 26, 2017 CLINICAL WARNING JENNIFER DE LEON [place] [facility] Jan 01, 2017 CLINICAL WARNING AYDE WELLS [facility] Jun 09, 2004 ADVANCE DIRECTIVE VILLARREALDARYL WEBSTER [facility] Jun 07, 2004 ADVANCE DIRECTIVE SHERYL HOLLOWAY [facility] Radiology Reports: +/- 30 days [...] LEFT 3 VIEWS OR MORE: SEBASTIÁN ROMERO [facility] JESSICA MOJICA [id number] [birth year] 8 M Exm Date: MAY 20, 2021@09:03 Req Phys: DEBRA KERNS Loc: [facility] [id number] TRIAGE Img Loc: MAIN X-RAY Service: Unknown (Case [id number] COMPLETE) FOOT LEFT 3 VIEWS OR MORE ( RAD Detailed) CPT:12154 Proc Modifiers : WEIGHT BEARING Reason for Study: charcot foot Clinical History: IS NOT under investigation for COVID-19 or is COVID-19 negative charcot foot Responsible provider name and phon e number to notify for critical findings if other than user placing the order and pager listed below: User placing orders pag er: [phone] LAST CREATININE 0.7 (04/28/21) Report Status: Verified Date Reported: MAY 20, 2021 Date Verified: MAY 20, 2021 Wrap Turner E-Sig:/ES/SEBASTIÁN ROMERO MD Report: EXAMINATION: FOOT LEFT 3 VIEWS OR MORE, 2 9:03 AM COMPARISON: None available HISTORY: Reason for Study: charcot foot [place] IS NOT under investigation for COVID-19 or is COVID-19 negative charcot foot Responsible provider name and phon e number to notify for critical findings if other than user placing the order and pager listed below: User placing orders [facility] er: [phone] LAST CREATININE 0.7 (04/28/21) Impression: 3 nonweightbearing [...] Primary Interpreting Staff: SEBASTIÁN ROMERO MD, RADIOLOGIST (Wrap Turner) /JRT May 20, 2021 09:03 AM FOOT RIGHT 3 VIEWS OR MORE: SEBASTIÁN ROMERO [facility] JESSICA MOJICA [id number] -[birth year] 8 M Exm Date: MAY 20, 2021@09:03 Req Phys: DEBRA KENRS Loc: [facility] VISN[facility] TRIAGE Img Loc: MAIN X-RAY Service: Unknown (Case [id number] COMPLETE) FOOT RIGHT 3 VIEWS OR MORE (RAD Detailed) CPT:76633 Proc Modifiers : WEIGHT BEARING Reason for Study: charcot foot Clinical History: IS NOT under investigation for COVID-19 or is COVID-19 negative charcot foot Responsible provider name and phon e number to notify for critical findings if other than user placing the order and pager listed below: User placing orders pag er: [phone] LAST CREATININE 0.7 (04/28/21) Report Status: Verified Date Reported: MAY 20, 2021 Date Verified: MAY 20, 2021 Wrap Turner E-Sig:/ES/SEBASTIÁN ROMERO MD Report: EXAMINATION: FOOT RIGHT 3 VIEWS OR MORE, 05/21/19 9:03 AM COMPARISON: 08/02/2020 HISTORY: Reason for Study: charcot foot [place] IS NOT under investigation for COVID-19 or is COVID-19 negative charcot foot Responsible provider name and phon e number to notify for critical findings if other than user placing the order and pager listed below: User placing orders [facility] er: [phone] LAST CREATININE 0.7 (04/28/21) Impression: 1. 3 [...] Primary Interpreting Staff: SEBASTIÁN ROMERO MD, RADIOLOGIST (Wrap Turner) /JRT Apr 28, 2021 09:06 AM MYOCARDIAL PERFUSION PHARMACOLOGIC STR ESS/REST: DARIN BAKER [facility] JESSICA MOJICA [id number] -[birth year] 8 M Ex Date: APR 28, 2021@09:06 Req Phys: GISELLE MARTINEZ Pat Loc: [facility] PACT SAPPHIRE 4E (Req'g Lo Img Loc: NUC MED Service: Unknown (Case [id number] COMPLETE) MYOCARDIAL PERFUSION (SPECT )-MULT(NM Detailed) CPT:93045 Reason for Study: CAD, PAD risk stratefication prior to surgery 05/02 (Case 2145 COMPLETE) TC-99M SESTAMIBI (CARDIOLIT E), PE(NM Detailed) CPT:A9500 (Case [id number] COMPLETE) CARDIOVASCULAR STRESS TEST (NM Detailed) CPT:10111 Clinical History: Is this patient on Observation [...] and pager listed below: User placing orders [facility] er: [phone] LAST CREATININE 0.6 L (12/15/20) Is the patient taking/taken dipyridamole/aggren ox in the last week? No Has patient taken theophylline product s in the last 3 days? No Patient has been educated not to consu me coffee, Sanka, tea or soft drinks 8 hours prior to test? Yes Report Status: Verified Date Reported: APR 28, 2021 Date Verified: APR 28, 2021 Wrap Turner E-Sig:/ES/DARIN BAKER MD Report: Regadenoson myocardial perfusion [...] Encounter. Date/Time Encounter Note(s) Provider Source Apr 28, 2021 03:59 PM REPORT OF CONTACT: LUIS ALBERTO ALCARAZ [facility] LOCAL TITLE: PATIENT CONTACT NOTE STANDARD TITLE: REPORT OF CONTACT DATE OF NOTE: APR 28, 2021@15:59 ENTRY DATE: APR 28, 2021@16:00:04 AUTHOR: LUIS ALBERTO ALCARAZ EXP COSIGNER: URGENCY: STATUS: COMPLETED PATIENT CONTACT NOTE Has [facility] [place] states that he missed a call from you to day and is requesting that another attempt be made to reach him. /vinicio/ LUIS ALBERTO ALCARAZ VISN [facility] Signed: 04/28/2021 16:01 Receipt Acknowledged By: 04/28/2021 16:55 /vinicio/ Giselle Martinez MD Staff Physician 04/28/2021 ADDENDUM STATUS: COMPLETED patient was notified of his abnormal stress test earlier today and will notify his surgeon that he will need to see cardiology regarding the abnormal stress test first prior to surgery /vinicio/ Giselle Martinez MD Staff Physician Signed: 04/28/2021 16:57 04/28/2021 ADDENDUM STATUS: UNSIGNED You may not VIEW this UNSIGNED Addendum.
--- OUTSIDE RECORDS SUMMARY | 2021-12-23 17:19 | XMS_ITS | Encounter Summary ---
:1945 Author Organization [facility] Address [address] [place] [address] Support Name Relationship Address Phone FRANCES GANDARA Unavailable [address] [place] [address] FRANCES GANDARA Unavailable [address] [place] [address] FRANCES GANDARA Unavailable [address] [place] [address] FRANCES GANDARA Unavailable [address] [place] [address] Insurance Providers: All historical and current Section [...] MEDICARE MEDICARE PART Apr 19, PART A [id number] Whit MOJICA (WNR) (M) A 2007 50A [phone] JESSICA MEDICARE MEDICARE PART Apr 19, PART A [id number] Whit [place] (WNR) (M) A 2007 [id number] [phone] JESSICA Selected Encounter This section includes the information on record at [place] for the Encounter. Date/Time Encounter Type Encounter Description Reason Provider Source May 04, 2021 04:19 Outpatient Encounter PRIMARY CARE/MEDICINE PM [facility] Encounter [...] 20 appointments. The data comes from all [facility]. Appointment Date/Time Appointment Type Appointment Facili ty Name May 10, 2021 03:20 PM AMBULATORY - NONE [facility] May 11, 2021 11:45 AM AMBULATORY - MEDICINE [facility] May 11, 2021 12:00 PM AMBULATORY - MEDICINE [facility] May 11, 2021 01:00 PM AMBULATORY - MEDICINE [facility] May 19, 2021 02:30 PM AMBULATORY - NONE [facility] May 19, 2021 04:00 PM AMBULATORY - MEDICINE [facility] May 20, 2021 09:00 AM AMBULATORY - NONE [facility] May 20, 2021 10:00 AM AMBULATORY - SURGERY [facility] May 24, 2021 03:30 PM AMBULATORY - NONE [facility] Jun 02, 2021 02:40 PM AMBULATORY - MEDICINE [facility] Jun 06, 2021 02:30 PM AMBULATORY - NONE [facility] Jun 09, 2021 02:00 PM AMBULATORY - SURGERY [facility] June 21, 2021 01:45 PM AMBULATORY - NONE [facility] June 22, 2021 09:30 AM AMBULATORY - NONE [facility] June 22, 2021 12:30 PM AMBULATORY - NONE [facility] June 22, 2021 01:30 PM AMBULATORY - SURGERY [facility] June 22, 2021 02:30 PM AMBULATORY - NONE [facility] June 27, 2021 12:30 PM AMBULATORY - NONE [facility] June 27, 2021 01:30 PM AMBULATORY - NONE [facility] June 28, 2021 11:00 AM AMBULATORY - NONE [facility] Active, Pending, and Scheduled Orders This section includes a listing of several types of active, pending, and scheduled orders, including clinic medications orders, diagnostic test orders, procedure orders and consult orders; where the start date of the order is 45 days before the date of the Encounter or 45 days after the date of the Encounter. The data comes from all [facility]. Test Date/Time Test Type Test Details Facility Name May 11, 2021 02:31 PM Pharmacy - Clinic Infusion [facility] Order Lab Results: +/- 30 [...] Reference Range Comment Apr 28, 2021 03:12 [facility] COVID-19 AND FLU SCRN Spe cimen Type: NASOPHARYNGEAL PM PANEL (FLUVID) No comment enter ed. Ordering Provid er: GISELLE MARTINEZ Report Released Date/Time: Apr 28, 2021 02:10 PM Reporting Lab: [facility] [address] [facility] [address] [facility]forming [facility] [address] COVID-19 PCR (FLUVID) Not Detected Not D etected FLU A PCR (FLUVID) Not Detected Not Dete cted FLU B PCR (FLUVID) Not Detected Not Dete cted Apr 28, 2021 01:17 PM [facility] HEMOGLOBIN A1C Specim en Type: BLOOD No comment enter ed. Ordering Provid er: GISELLE MARTINEZ Report Released Date/Time: Apr 25, 2021 12:00 PM Reporting Lab: [facility] [address] [facility] [address] Performing Lab: [facility] [address] [facility] [address] HEMOGLOBIN A1C 8.0 H 4.0-6.0 Apr 28, 2021 01:17 [facility] PROTHROMBIN TIME/INR Spec imen Type: PLASMA PM No comment enter ed. Ordering Provid er: GISELLE MARTINEZ Report Released Date/Time: Apr 25, 2021 12:00 PM Reporting Lab: [facility] [address] [facility] [address] Performing Lab: [facility] [address] [facility] [address] .INR 1.1 0.8-1.1 .PT 13.2 H 9.4-12.5 Apr 28, 2021 01:17 PM [facility] CBC Specim en Type: BLOOD No comment enter ed. Ordering Provid er: GISELLE MARTINEZ Report Released Date/Time: Apr 25, 2021 12:00 PM Reporting Lab: [facility] [address] [facility] [address] Performing Lab: [facility] [address] [facility] [address] WBC 4.06 4.0-11.0 RBC 5.41 4.6-6.2 HGB 14.8 13.5-17.9 HCT 47.0 41-54 MCV 86.9 80-100 MCH 27.4 27-33 MCHC 31.5 L 32.0-37.5 PLT 263 150-400 MPV 9.2 7.4-10.4 RDW 14.2 11.5-14.5 Apr 28, 2021 01:17 [facility] TSH W/REFLEX TO FREE Spec imen Type: PLASMA PM T4 No comment enter ed. Ordering Provid er: GISELLE MARTINEZ Report Released Date/Time: Apr 25, 2021 12:00 PM Reporting Lab: [facility] [address] [facility] [address] Performing Lab: [facility] [address] TSH 0.73 0.35-4.94 Apr 28, 2021 [facility] COMPREHENSIVE METABOLIC Spec imen Type: PLASMA 01:17 PM PANEL+MG No comment enter ed. Ordering Provid er: GISELLE MARTINEZ Report Released Date/Time: Apr 25, 2021 12:00 PM Reporting Lab: [facility] [address] [facility] [address] Performing Lab: [facility] [address] CREATININE 0.7 0.7-1.2 UREA NITROGEN 16 8-26 [...] tobacco-related health factors from the [facility] where the Encounter took place.Current Smoking Status This section includes the most current smoking, or tobacco-related health factor, from the [place] facility where the Encounter took place. Date/Time Current Smoking Status Comment Facility Apr 25, 2021 11:00 AM VA-TOBACCO NEVER USED [place] [facility] Tobacco Use History This section includes a history of the smoking, or tobacco- related health factors, that were collected on or before the date of the Encounter. The data comes from the [facility] where the Encounter took place. Date/Time Smoking Status/Tobacco Use Comment [facility] July 09, 2020 02:00 PM VA-TOBACCO FORMER USER [place] July 09, 2020 02:00 PM VA-TOBACCO QUIT 15 YRS OR MORE [facility] Apr 17, 2019 02:39 PM INPT NO TOBACCO USE IN LAST 30 DAYS [facility] Feb 04, 2019 10:37 AM [place]-TOBACCO NEVER USED [place] [facility] Oct 15, 2018 02:43 PM INPT NO TOBACCO USE IN LAST 30 DAYS [facility] Oct 13, 2018 11:30 PM INPT NO TOBACCO USE IN LAST 30 DAYS [facility] Sep 02, 2018 05:50 PM INPT NO TOBACCO USE IN LAST 30 DAYS [facility] Aug 12, 2018 07:28 PM INPT NO TOBACCO USE IN LAST 30 DAYS [facility] Jan 30, 2018 03:28 PM VA-TOBACCO FORMER USER [facility] Jan 30, 2018 03:28 PM [place]-TOBACCO QUIT 15 YRS OR MORE [facility] May 29, 2017 04:53 PM INPT NO TOBACCO USE IN LAST 30 DAYS [facility] Apr 25, 2017 10:44 PM INPT NO TOBACCO USE IN LAST 30 DAYS [facility] Jan 01, 2017 06:40 PM INPT NO TOBACCO USE IN LAST 30 DAYS [facility] Dec 21, 2016 02:43 PM FORMER TOBACCO USER 7Y OR GREATER [facility] Sep 24, 2013 08:52 AM FORMER TOBACCO USER 7Y OR GREATER [facility] Advance Directives: All historical and current Section Date Range: From patient's date of to the date document was created. This section includes ALL of a patient's completed or amended [place] Advance and Rescinded Directives. The entries below indicate that a directive exists for the patient, but an actual copy is not included with this document. The data comes from all [facility]. Date Advance Directives Provider Source May 29, 2017 CLINICAL WARNING CORNELIO FREITAS [facility] May 16, 2017 ADVANCE DIRECTIVE SERENITY BUENROSTRO [facility] May 16, 2017 ADVANCE DIRECTIVE DISCUSSION SERENITY BUENROSTRO [place] [facility] May 04, 2017 CLINICAL WARNING MAGO DIAMOND [facility] May 04, 2017 CLINICAL WARNING GAEL ROSARIO [facility] Apr 26, 2017 CLINICAL WARNING JENNIFER DE LEON [facility] Jan 01, 2017 CLINICAL WARNING AYDE WELLS [facility] Jun 09, 2004 ADVANCE DIRECTIVE DARYL VILLARREAL Sebastian [facility] Jun 07, 2004 ADVANCE DIRECTIVE SHERYL HOLLOWAY [facility] Radiology Reports: +/- 30 [...] LEFT 3 VIEWS OR MORE: SEBASTIÁN ROMERO [facility] JESSICA MOJICA [id number] [birth year] M Exm Date: MAY 20, 2021@09:03 Req Phys: DEBRA BROCK Loc: [facility] VISN23 [facility] TRIAGE Img Loc: MAIN X-RAY Service: Unknown (Case [id number] COMPLETE) FOOT LEFT 3 VIEWS OR MORE ( RAD Detailed) CPT:48057 Proc Modifiers : WEIGHT BEARING Reason for Study: charcot foot Clinical History: IS NOT under investigation for COVID-19 or is COVID-19 negative charcot foot Responsible provider name and phon e number to notify for critical findings if other than user placing the order and pager listed below: User placing orders pag er: [phone] LAST CREATININE 0.7 (04/28/21) Report Status: Verified Date Reported: MAY 20, 2021 Date Verified: MAY 20, 2021 Client Engagement Manager E-Sig:/ES/SEBASTIÁN ROMERO MD Report: EXAMINATION: FOOT LEFT 3 VIEWS OR MORE, 2 9:03 AM COMPARISON: None available HISTORY: Reason for Study: charcot foot IS NOT under investigation for COVID-19 or is COVID-19 negative charcot foot Responsible provider name and phon e number to notify for critical findings if other than user placing the order and pager listed below: User placing orders [facility] er: [phone] LAST CREATININE 0.7 (04/28/21) Impression: 3 nonweightbearing [...] Primary Interpreting Staff: SEBASTIÁN ROMERO MD, RADIOLOGIST (Client Engagement Manager) /JRT May 20, 2021 09:03 AM FOOT RIGHT 3 VIEWS OR MORE: SEBASTIÁN ROMERO [facility] JESSICA MOJICA [id number] -[birth year] M Exm Date: MAY 20, 2021@09:03 Req Phys: DEBRA BROCK Loc: [facility] VISN23 [facility] TRIAGE Img Loc: MAIN X-RAY Service: Unknown (Case [id number] COMPLETE) FOOT RIGHT 3 VIEWS OR MORE (RAD Detailed) CPT:66838 Proc Modifiers : WEIGHT BEARING Reason for Study: charcot foot Clinical History: IS NOT under investigation for COVID-19 or is COVID-19 negative charcot foot Responsible provider name and phon e number to notify for critical findings if other than user placing the order and pager listed below: User placing orders pag er: [phone] LAST CREATININE 0.7 (04/28/21) Report Status: Verified Date Reported: MAY 20, 2021 Date Verified: MAY 20, 2021 Client Engagement Manager E-Sig:/ES/SEBASTIÁN ROMERO MD Report: EXAMINATION: FOOT RIGHT 3 VIEWS OR MORE, 05/21/19 9:03 AM COMPARISON: 08/02/2020 HISTORY: Reason for Study: charcot foot [place] IS NOT under investigation for COVID-19 or is COVID-19 negative charcot foot Responsible provider name and phon e number to notify for critical findings if other than user placing the order and pager listed below: User placing orders pag er: [phone] LAST CREATININE 0.7 (04/28/21) Impression: 1. 3 [...] Primary Interpreting Staff: SEBASTIÁN ROMERO MD, RADIOLOGIST (Client Engagement Manager) /JRT Apr 28, 2021 09:06 AM MYOCARDIAL PERFUSION PHARMACOLOGIC STR ESS/REST: DARIN BAKER [facility] JESSICA MOJICA [id number] -[birth year] 8 M Ex Date: APR 28, 2021@09:06 Req Phys: GISELLE MARTINEZ Pat Loc: [facility] PACT SAPPHIRE 4E (Req'g Lo Img Loc: NUC MED Service: Unknown (Case [id number] COMPLETE) MYOCARDIAL PERFUSION (SPECT )-MULT(NJ Detailed) CPT:78005 Reason for Study: CAD, PAD risk stratefication prior to surgery 05/02 (Case [id number] COMPLETE) TC-99M SESTAMIBI (CARDIOLIT E), PE(NM Detailed) CPT:A9500 (Case [id number] COMPLETE) CARDIOVASCULAR STRESS TEST (N[place] Detailed) CPT:93107 Clinical History: Is this patient on Observation [...] and pager listed below: User placing orders [facility] er: [phone] LAST CREATININE 0.6 L (12/15/20) Is the patient taking/taken dipyridamole/aggren ox in the last week? No Has patient taken theophylline product s in the last 3 days? No Patient has been educated not to consu me coffee, Sanka, tea or soft drinks 8 hours prior to test? Yes Report Status: Verified Date Reported: APR 28, 2021 Date Verified: APR 28, 2021 Client Engagement Manager E-Sig:/ES/DARIN BAKER MD Report: Regadenoson myocardial perfusion [...] the Encounter. Date/Time Encounter Note(s) Provider Source May 04, 2021 04:19 PM REPORT OF CONTACT: JEANETTE TURNER [facility] LOCAL TITLE: APPOINTMENT SCHEDULING NOTE KAYLAH FOSS STANDARD TITLE: REPORT OF CONTACT DATE OF NOTE: MAY 04, 2021@16:19 ENTRY DATE: MAY 04, 2021@16:19:59 AUTHOR: EMERSON IBRAHIM EXP COSIGNER: URGENCY: STATUS: COMPLETED APPOINTMENT SCHEDULING NOTE Has ADDENDA Attempt to schedule return to clinic 1st Contact: Called [place] at: M nh Left message Phone number left for to call back: 2nd Contact: Sent letter by regular [place] mail to address on [facility] [address] [place] [place], [place] [address] If [place] calls back, schedule appointment for : [id number] [facility] PACT SAPPHIRE PHONE rtc 04/2021 f/u p odiatrist Dr. Brock's note Is the RTC marked as no later than? No /vinicio/ KAYLAH KO ADVANCED MSA Signed: 05/04/2021 16:21 05/05/2021 ADDENDUM STATUS: COMPLETED called and left a msg for pt to call us back as well /vinicio/ Giselle Martinez MD Staff Physician Signed: 05/05/2021 14:35
--- OUTSIDE RECORDS SUMMARY | 2021-12-23 17:23 | XMS_ITS | Encounter Summary ---
:1945 Author Organization [facility] Address [address] [place] [id number] Support Name Relationship Address Phone FRANCES GANDARA Unavailable [address] [place] [address] FRANCES GANDARA Unavailable [address] [place] [address] FRANCES GANDARA Unavailable [address] [place] [address] FRANCES GANDARA Unavailable [address] [place] [address] Insurance Providers: All historical and current Section [...] MEDICARE MEDICARE PART Apr 19, PART A [id number] Whit MOJICA (WNR) (M) A 2007 50A [phone] JESSICA MEDICARE MEDICARE PART Apr 19, PART A [id number] Whit MOJICA (WNR) (M) A 2007 [id number] [phone] JESSICA Selected Encounter This section includes the information on record at [place] for the Encounter. Date/Time Encounter Type Encounter Reason Provider Source Description May 11, 2021 OFFICE CARDIOLOGY ICD-10-CM I35.0 SARAH HOFF 12:00 PM CONSULTATION Nonrheumatic D aortic (valve) stenosis with Provider Comments: Aortic valve stenosis (SCT [id number]) IHE Encounter Template Text not used by [place] Assessments - Encounter Diagnoses This section includes the primary and secondary diagnoses documented for the Encounter. Date/Time Primary/Secondary Diagnosis Name Provider Source Diagnosis May 11, 2021 PR[address] Nonrheumatic SARAH HOFF [facility] 02:53 PM aortic (valve) D HCS stenosis May 11, 2021 SECONDARY Athscl heart SARAH HOFF 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 02:53 PM vascular disease, D HCS unspecified May 11, 2021 SECONDARY Type [address] [facility] 02:53 PM mellitus with D HCS unspecified complications Plan of Treatment: Future Appointments (+ 6 months) and Future Tests (+/- 45 days) The Plan of Treatment section includes future care activities for the patient [facility] This section includes future appointments and future orders which are active, pending orscheduled.Future Appointments This section includes appointments that were scheduled to occur 6 months from the date of the Encounter, up to a maximum of 20 appointments. The data comes from all [place] treatment facilities. Appointment Date/Time Appointment Type Appointment Facili ty Name May 19, 2021 02:30 PM AMBULATORY - NONE [facility] May 19, 2021 04:00 PM AMBULATORY - MEDICINE [facility] May 20, 2021 09:00 AM AMBULATORY - NONE [facility] May 20, 2021 10:00 AM AMBULATORY - SURGERY [facility] May 24, 2021 03:30 PM AMBULATORY - NONE [facility] Jun 02, 2021 02:40 PM AMBULATORY - MEDICINE [facility] Jun 06, 2021 02:30 PM AMBULATORY - NONE [facility] Jun 09, 2021 02:00 PM AMBULATORY - SURGERY [facility] June 21, 2021 01:45 PM AMBULATORY - NONE [facility] June 22, 2021 09:30 AM AMBULATORY - NONE [facility] June 22, 2021 12:30 PM AMBULATORY - NONE [facility] June 22, 2021 01:30 PM AMBULATORY - SURGERY [facility] June 22, 2021 02:30 PM AMBULATORY - NONE [facility] June 27, 2021 12:30 PM AMBULATORY - NONE [facility] June 27, 2021 01:30 PM AMBULATORY - NONE [facility] June 28, 2021 11:00 AM AMBULATORY - NONE [facility] July 04, 2021 12:15 PM AMBULATORY - NONE [facility] July 04, 2021 01:15 PM AMBULATORY - SURGERY [facility] July 06, 2021 10:15 AM AMBULATORY - NONE [facility] July 07, 2021 01:00 PM AMBULATORY - NONE [facility] Active, Pending, and Scheduled Orders This [...] data comes from all [place] treatment facilities. Test Date/Time Test Type Test Details Facility Name May 11, 2021 02:31 PM Pharmacy - Clinic Infusion [facility] Order Lab Results: +/- 30 days [...] Reference Range Comment Apr 28, 2021 03:12 [facility] COVID-19 AND FLU SCRN Spe cimen Type: NASOPHARYNGEAL PM PANEL (FLUVID) No comment enter ed. Ordering Provid er: GISELLE MARTINEZ Report Released Date/Time: Apr 28, 2021 02:10 PM Reporting Lab: [facility] [address] [facility] [address] Performing Lab: [facility] [address] [facility] [address] COVID-19 PCR (FLUVID) Not Detected Not D etected FLU A PCR (FLUVID) Not Detected Not Dete cted FLU B PCR (FLUVID) Not Detected Not Dete cted Apr 28, 2021 01:17 PM [facility] HEMOGLOBIN A1C Specim en Type: BLOOD No comment enter ed. Ordering Provid er: GISELLE MARTINEZ Report Released Date/Time: Apr 25, 2021 12:00 PM Reporting Lab: [facility] [address] [facility] [address] Performing Lab: [facility] [address] [facility] [address] HEMOGLOBIN A1C 8.0 H 4.0-6.0 Apr 28, 2021 01:17 [facility] PROTHROMBIN TIME/INR Spec imen Type: PLASMA PM No comment enter ed. Ordering Provid er: GISELLE MARTINEZ Report Released Date/Time: Apr 25, 2021 12:00 PM Reporting Lab: [facility] [address] [facility] [address] Performing Lab: [facility] [address] [facility] [address] .INR 1.1 0.8-1.1 .PT 13.2 H 9.4-12.5 Apr 28, 2021 01:17 PM [facility] CBC Specim en Type: BLOOD No comment enter ed. Ordering Provid er: GISELLE MARTINEZ Report Released Date/Time: Apr 25, 2021 12:00 PM Reporting Lab: [facility] [address] [facility] [address] Performing Lab: [facility] [address] [facility] [address] WBC 4.06 4.0-11.0 RBC 5.41 4.6-6.2 HGB 14.8 13.5-17.9 HCT 47.0 41-54 MCV 86.9 80-100 MCH 27.4 27-33 MCHC 31.5 L 32.0-37.5 PLT 263 150-400 MPV 9.2 7.4-10.4 RDW 14.2 11.5-14.5 Apr 28, 2021 01:17 [facility] TSH W/REFLEX TO FREE Spec imen Type: PLASMA PM T4 No comment enter ed. Ordering Provid er: GISELLE MARTINEZ Report Released Date/Time: Apr 25, 2021 12:00 PM Reporting Lab: [facility] [address] [facility] [address] Performing Lab: [facility] [address] [facility] [address] TSH 0.73 0.35-4.94 Apr 28, 2021 [facility] COMPREHENSIVE METABOLIC Spec imen Type: PLASMA 01:17 PM PANEL+MG No comment enter ed. Ordering Provid er: GISELLE MARTINEZ Report Released Date/Time: Apr 25, 2021 12:00 PM Reporting Lab: [facility] [address] [facility] [address] Performing Lab: [facility] [address] [facility] [address] CREATININE 0.7 0.7-1.2 UREA NITROGEN 16 8-26 [...] Comment Facility Apr 25, 2021 11:00 AM [place]-TOBACCO NEVER USED [place] [facility] Tobacco Use History This section includes a history of the smoking, or tobacco- related health factors, that were collected on or before the date of the Encounter. The data comes from the [place] facility where the Encounter took place. Date/Time Smoking Status/Tobacco Use Comment [facility] July 09, 2020 02:00 PM [place] US[place] [facility] July 09, 2020 02:00 PM VA-TOBACCO QUIT 15 YRS OR MORE [facility] Apr 17, 2019 02:39 PM INPT NO TOBACCO USE IN LAST 30 DAYS [facility] Feb 04, 2019 10:37 AM VA-TOBACCO NEVER USED [place] [facility] Oct 15, 2018 02:43 PM INPT NO TOBACCO USE IN LAST 30 DAYS [facility] Oct 13, 2018 11:30 PM INPT NO TOBACCO USE IN LAST 30 DAYS [facility] Sep 02, 2018 05:50 PM INPT NO TOBACCO USE IN LAST 30 DAYS [facility] Aug 12, 2018 07:28 PM INPT NO TOBACCO USE IN LAST 30 DAYS [facility] Jan 30, 2018 03:28 PM VA-TOBACCO FOR[place] US[place] [facility] Jan 30, 2018 03:28 PM VA-TOBACCO QUIT 15 YRS OR MORE [facility] May 29, 2017 04:53 PM INPT NO TOBACCO USE IN LAST 30 DAYS [facility] Apr 25, 2017 10:44 PM INPT NO TOBACCO USE IN LAST 30 DAYS [facility] Jan 01, 2017 06:40 PM INPT NO TOBACCO USE IN LAST 30 DAYS [facility] Dec 21, 2016 02:43 PM FORMER TOBACCO USER 7Y OR GREATER [facility] Sep 24, 2013 08:52 AM FORMER TOBACCO USER 7Y OR GREATER [facility] Advance Directives: All historical and current Section Date Range: From patient's date of to the date document was created. This section includes ALL of a patient's completed or amended [place] Advance and Rescinded Directives. The entries below indicate that a directive exists for the patient, but an actual copy is not included with this document. The data comes from all [facility]. Date Advance Directives Provider Source May 29, 2017 CLINICAL WARNING CORNELIO FREITAS S [facility] May 16, 2017 ADVANCE DIRECTIVE SERENITY BUENROSTRO [facility] May 16, 2017 ADVANCE DIRECTIVE DISCUSSION [place] [facility] May 04, [address] [facility] May 04, 2017 CLINICAL WARNING GAEL ROSARIO [facility] Apr 26, 2017 CLINICAL WARNING MOISESJENNIFER P [facility] Jan 01, 2017 CLINICAL WARNING AYDE WELLS [facility] Jun 09, 2004 ADVANCE DIRECTIVE DARYL VILLARREAL [facility] Jun 07, 2004 ADVANCE DIRECTIVE SHERYL HOLLOWAY [facility] Radiology Reports: +/- 30 days of [...] LEFT 3 VIEWS OR MORE: SEBASTIÁN ROMERO [facility] JESSICA MOJICA [id number] [birth year] 8 M Exm Date: MAY 20, 2021@09:03 Req Phys: DEBRA KERNS Loc: [facility] TRIAGE Img Loc: MAIN X-RAY Service: Unknown (Case [id number] COMPLETE) FOOT LEFT 3 VIEWS OR MORE ( RAD Detailed) CPT:30760 Proc Modifiers : WEIGHT BEARING Reason for Study: charcot foot Clinical History: IS NOT under investigation for COVID-19 or is COVID-19 negative charcot foot Responsible provider name and phon e number to notify for critical findings if other than user placing the order and pager listed below: User placing orders pag er: [phone] LAST CREATININE 0.7 (04/28/21) Report Status: Verified Date Reported: MAY 20, 2021 Date Verified: MAY 20, 2021 Senior Benefits Analyst E-Sig:/ES/SEBASTIÁN ROMERO MD Report: EXAMINATION: FOOT LEFT 3 VIEWS OR MORE, 2 9:03 AM COMPARISON: None available HISTORY: Reason for Study: charcot foot IS NOT under investigation for COVID-19 or is COVID-19 negative charcot foot Responsible provider name and phon e number to notify for critical findings if other than user placing the order and pager listed below: User placing orders pag er: [phone] LAST CREATININE 0.7 (04/28/21) Impression: 3 nonweightbearing [...] Primary Interpreting Staff: SEBASTIÁN ROMERO MD, RADIOLOGIST (Senior Benefits Analyst) /JRT May 20, 2021 09:03 AM FOOT RIGHT 3 VIEWS OR MORE: SEBASTIÁN ROMERO [facility] JESSICA MOJICA [id number] -[birth year] 8 M Exm Date: MAY 20, 2021@09:03 Req Phys: DEBRA KERNS Pat Loc: [facility] TRIAGE Img Loc: MAIN X-RAY Service: Unknown (Case [id number] COMPLETE) FOOT RIGHT 3 VIEWS OR MORE (RAD Detailed) CPT:09136 Proc Modifiers : WEIGHT BEARING Reason for Study: charcot foot Clinical History: [place] IS NOT under investigation for COVID-19 or is COVID-19 negative charcot foot Responsible provider name and phon e number to notify for critical findings if other than user placing the order and pager listed below: User placing orders pag er: [phone] LAST CREATININE 0.7 (04/28/21) Report Status: Verified Date Reported: MAY 20, 2021 Date Verified: MAY 20, 2021 Senior Benefits Analyst E-Sig:/ES/SEBASTIÁN ROMERO MD Report: EXAMINATION: FOOT RIGHT 3 VIEWS OR MORE, 05/21/19 9:03 AM COMPARISON: 08/02/2020 HISTORY: Reason for Study: charcot foot IS NOT under investigation for COVID-19 or is COVID-19 negative charcot foot Responsible provider name and phon e number to notify for critical findings if other than user placing the order and pager listed below: User placing orders pag er: [phone] LAST CREATININE 0.7 (04/28/21) Impression: 1. 3 [...] Primary Interpreting Staff: SEBASTIÁN ROMERO MD, RADIOLOGIST (Senior Benefits Analyst) /JRT Apr 28, 2021 09:06 AM MYOCARDIAL PERFUSION PHARMACOLOGIC STR ESS/REST: DARIN BAKER [facility] JESSICA MOJICA [id number] -[birth year] 8 M Exm Date: APR 28, 2021@09:06 Req Phys: GISELLE MARTINEZ STUART Pat Loc: [facility] PACT SAPPHIRE 4E (Req'g Lo Img Loc: NUC MED Service: Unknown (Case [id number] COMPLETE) MYOCARDIAL PERFUSION (SPECT )-MULT(NM Detailed) CPT:10116 Reason for Study: CAD, PAD risk stratefication prior to surgery 05/02 (Case 2145 COMPLETE) TC-99M SESTAMIBI (CARDIOLIT E), PE(NM Detailed) CPT:A9500 (Case [id number] COMPLETE) CARDIOVASCULAR STRESS TEST (NM Detailed) CPT:09737 Clinical History: Is this patient on Observation Status? No surgery 05/02/21. please schedule prior if possi ble h/o CAD, PAD. limited ability to walk due to fo ot issues [place] IS NOT under investigation for COVID-19 or is COVID-19 negative 75 yo M with Responsible provider name and phon e number to notify for critical findings if other than user placing the order and pager listed below: User placing orders pag er: [phone] LAST CREATININE 0.6 L (12/15/20) Is the patient taking/taken dipyridamole/aggren ox in the last week? No Has patient taken theophylline product s in the last 3 days? No Patient has been educated not to consu me coffee, Sanka, tea or soft drinks 8 hours prior to test? Yes Report Status: Verified Date Reported: APR 28, 2021 Date Verified: APR 28, 2021 Senior Benefits Analyst E-Sig:/ES/DARIN BAKER MD Report: Regadenoson myocardial perfusion [...] Encounter. Date/Time Encounter Note(s) Provider Source May 11, 2021 08:14 AM CARDIOLOGY CONSULT: SARAH HOFF [facility] LOCAL TITLE: CARDIAC CONSULT STANDARD TITLE: CARDIOLOGY CONSULT DATE OF NOTE: MAY 11, 2021@08:14 ENTRY DATE: MAY 11, 2021@08:14:50 AUTHOR: SARAH HOFF EXP COSIGNER: URGENCY: STATUS: COMPLETED CARDIAC CONSULT Has ADDENDA Reason for phone consult: Abnormal stress test a nd surgery cardiac clearance needed stress test was done to risk stratify prior to f oot surgery. pt. has CAD, DM, HTN HPI/ROS Mr. Mojica is a 75 year-old referred for risk stratification prior to foot surgery. Pertinent PMH includes CAD/STEMI s/p C ABG x 4 2017, RAJESH, PE, , PVD. Seen in clinic today, says he is here for to be seen prior to possible foot surgery for hole in right f oot. Other than his feet, says he is doing perfect, has lost 30 lbs. with diet c hanges. Significantly limited d/t foot pain, I have to have surgery done as pain and immobility is not tolerable. Denies chest pain/pressure, SOB/OLPEZ, aissatou a, orthopnea, PND, palpitations, lightheadedness. He had no symptoms prior to his CABG in 2018 other than feeling congested and tickle over his heart, his [place] shepherds had come to sit by his side and cried and he knew something was wrong so he we nt to ED. Emergent angio was performed. Home BPs 120s/70s. Has lost 40 lbs. w ith diet changes. Has RAJESH but has not used mask in 20 years. Does not smoke, rare beer, no illicits. Opioids required for pain control. Lives with , they just bought a second house. Allergies: RIVAROXABAN (Jul 25, 2017) Past Medical History - Computerized Problem list is source for: 1. Osteoarthritis - C-spine; L-spine; chronic low back [...] 3 9. 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 Pulmonary thromboembolism - on CTA 07/06; possible ; xerult -> ink LFT, no t on anticoag 2/2 hemoptysis 11. Essential tremor [...] venous pump use 17. Heart failure Active Medications: ASPIRIN 81MG EC TAB TAKE ONE TABLET BY MOUTH ROGE RY ACTIVE DAY TO PREVENT HEART ATTACK DO NOT CHEW BUMETANIDE 1MG TAB TAKE ONE TABLET BY MOUTH TWIC E A ACTIVE DAY FOR FLUID RETENTIO ATORVASTATIN CALCIUM 80MG TAB TAKE ONE TABLET BY ACTIVE MOUTH AT BEDTIME FOR CHOLESTEROL AND HEART DISE ASE LOSARTAN 50MG TAB TAKE ONE-HALF TABLET BY MOUTH EVERY ACTIVE (S) DAY FOR HIGH BLOOD PRESSURE ALBUTEROL 90MCG (CFC-F) 200D ORAL INHL INHALE 2 PUFFS ACTIVE BY INHALATION FOUR TIMES A DAY NEEDED FOR IMMEDIATE RELIEF OF SHORTNESS OF BREATH *SHAKE WELL* EMPAGLIFLOZIN 25MG TAB TAKE ONE-HALF TABLET BY M OUTH ACTIVE EVERY MORNING FOR DIABETES PROPRANOLOL HCL 80MG TAB TAKE ONE TABLET BY MOUT H ACTIVE (S) TWICE A DAY FOR HAND TREMOR BUPROPION HCL 150MG 24HR SA TAB TAKE ONE TABLET BY ACTIVE MOUTH EVERY DAY CITALOPRAM HYDROBROMIDE 20MG TAB TAKE ONE TABLET BY ACTIVE (S) MOUTH EVERY DAY FOR DEPRESSION CYANOCOBALAMIN 1000MCG TAB TAKE TWO TABLETS BY M OUTH ACTIVE (S) EVERY WEEK FOR VITAMIN B12 SUPPLEMENT ERGOCALCIF 1,250MCG (D2-50,000UNIT) CAP TAKE ONE ACTIVE (S) CAPSULE BY MOUTH EVERY MONTH GLIPIZIDE 10MG TAB TAKE ONE TABLET BY MOUTH TWIC E A ACTIVE DAY TAKE 30 MINUTES BEFORE MEAL FOR DIABETE S INSULIN,GLARGINE 100 UNT/ML 3ML SOLOSTAR INJECT 8 ACTIVE UNITS UNDER THE SKIN AT BEDTIME FOR DIABETES DISPENSE WITH SOLSTAR PEN METFORMIN HCL 500MG/5ML ORAL SOLN TAKE TWO ACTIV E TEASPOONSFUL BY MOUTH TWICE A DAY OXYCODONE 5MG/ACETAMINOPHEN 325MG TAB TAKE 2 TAB LETS ACTIVE BY MOUTH THREE TIMES A DAY FOR SEVERE FOOT PAIN POTASSIUM CHLORIDE 20MEQ/PKT ORAL PWD TAKE 1 PAC KET ACTIVE BY MOUTH EVERY DAY --TAKE WITH WATER-- REDNISOLONE ACETATE 1% OPH SUSP INSTILL 1 DROP I N ACTIVE OPERATIVE EYE FOUR TIMES A DAY SHAKE WELL FOR POST-OP INFLAMMATION PREGABALIN 100MG ORAL CAP TAKE ONE CAPSULE BY MO UTH ACTIVE THREE TIMES A DAY FOR NERVE PAIN -REPLACES GABAPENTIN ROPINIROLE HCL 2MG SA TAB TAKE TWO TABLETS BY MO UTH ACTIVE (S) EVERY DAY SEMAGLUTIDE 1MG/0.75ML INJ PEN 3ML INJECT 1MG UN ALEENA ACTIVE THE SKIN EVERY WEEK TADALAFIL 20MG TAB TAKE ONE TABLET BY MOUTH AT A CTIVE BEDTIME TAKE AT LEAST 30 MINUTES BEFORE ANTICIP ATED SEXUAL ACTIVITY. MAXIMUM 4 DOSES FOR 30-DAY SUP PLY Vital Signs: - Blood Pressure: 175/92 - he did not take his m eds today - Pulse: 65 - Oxygen sats: 95 Focused Exam: - General: NAD - CV: RRR, 3/6 systolic murmur RUSB. No apprecia ble JVD, or edema. - Resp: CTA bilat Recent Available Lab Results: - CREATININE 0.7 (04/28/21) - UREA NITROGEN 16 (04/28/21) - SODIUM 137 (04/28/21) - CHLORIDE 103 (04/28/21) - POTASSIUM 4.5 (04/28/21) - MAGNESIUM 2.1 (04/28/21) - CO2 28 (04/28/21) - GLUCOSE 207 H (04/28/21) Hgb alc 8 DIAGNOSTICS/IMAGING/SCORING EKG: NSR, HR 76, no ST changes. 04/28/2021 CARDIOVASCULAR STRESS TEST 1. Findings suggest ischemia and infarct involv [...] surgery. Likely also apical wall motion abnormality. Echocardiogram 2021: Echocardiogram 2019: 1. Normal left ventricular size and systolic [...] inferior vena cava was moderately dilated . Impression/Plan The stress test reported isc hemia. This pt. is known to have CAD and is S/P CABG which included MIRZA to LAD among other grafts. R evascularization in this pt. with stable ischemic heart disease would only be indicated for symptoms of angina refractory to medical therapy. This pt. d oes not describe symptoms of angina and, therefore, do no t recommend invasive coronary angiography as he does not have an indication for revascularization. As his aortic stenosis was reported to be modera te in 2020, we repeated an echocardiogram today which reports his remain s moderate. Thus, he has no active cardiac conditions fo r which we would recommend postponing foot surgery - no unstable angina, decompensated heart failure, malignant arrhythmias, or severe stenotic valvular disease. He is at his functional baseline and optimal medical condition prior to surgery. His Revised Cardiovascular Risk Score is 3 points, class IV Risk 15.0 % 30-day risk of deat h, ND, or cardiac arrest ([place], 2017). In regard to his , will plan to see him in one year in Dr. Pineda's clinic with a repeat echocardiogram. Today's consult and recommendations discussed wi th him in lay-terms and he is in agreement with the above plan. Patient seen collaboratively with Dr. Pineda. Thank you for referring this to cardiolo gy. Sarah Hoff Nurse Practitioner, Cardiology /vinicio/ SARAH HOFF NP NURSE PRACTITTIONER Signed: 05/12/2021 07:25 Receipt Acknowledged By: 05/12/2021 09:13 /darya PINEDA MD STAFF GRIEF COUNSELLOR 05/12/2021 ADDENDUM STATUS: COMPLETED I have seen Mr. Mojica and discussed his care with him and Sarah Hoff NP; please see his note above for details. Per echocardiogram, the aortic valve are a has decreased and there was a slight decrease in the left ventric ular systolic function (LVEF 50%). Plan to follow-up in 6 months with an echocardiogram. Thank you for allowing us to participate in the care of this gentleman. Please do not hesitate to contact us should you have an y questions. /darya PINEDA MD STAFF GRIEF COUNSELLOR Signed: 05/12/2021 09:12 Receipt Acknowledged By: 05/12/2021 15:46 /es/ SARAH HOFF NP NURSE PRACTITTIONER 06/08/2021 ADDENDUM STATUS: COMPLETED they may want the cardiology pre-op note as well . If you can have this faxed to his surgical team, that'd be great. Thanks /es/ Giselle Martinez MD Staff Physician Signed: 06/08/2021 15:57 Receipt Acknowledged By: 06/08/2021 16:04 /es/ SHERYL ANDRADE, STEVIE REGISTERED NURSE for RAINER ALLEN * AWAITING SIGNATURE * KAYLAH IBRAHIM
--- OUTSIDE RECORDS SUMMARY | 2021-12-23 17:25 | XMS_ITS | Encounter Summary ---
:1945 Author Organization [facility] Address [address] [place] [id number] Support Name Relationship Address Phone FRANCES GANDARA Unavailable [address] [place] [address] FRANCES GANDARA Unavailable [address] [place] [address] FRANCES GANDARA Unavailable [address] [place] [address] FRANCES GANDARA Unavailable [address] [place] [address] Insurance Providers: All historical and current Section [...] MEDICARE MEDICARE PART Apr 19, PART A [id number] Whit MOJICA (WNR) (M) A 2007 [id number] [phone] JESSICA MEDICARE MEDICARE PART Apr 19, PART A [id number] Whit MOJICA (WNR) (M) A 2007 50A [phone] JESSICA Selected Encounter This section includes the information on record at [place] for the Encounter. Date/Time Encounter Type Encounter Description Reason Provider Source May 11, 2021 01:00 Outpatient Encounter CARDIAC ECHO PM IHE Encounter Template Text not used by NM Plan of Treatment: Future Appointments (+ 6 [...] 20 appointments. The data comes from all [facility]. Appointment Date/Time Appointment Type Appointment Facili ty Name May 19, 2021 02:30 PM AMBULATORY - NONE [facility] May 19, 2021 04:00 PM AMBULATORY - MEDICINE [facility] May 20, 2021 09:00 AM AMBULATORY - NONE [facility] May 20, 2021 10:00 AM AMBULATORY - SURGERY [facility] May 24, 2021 03:30 PM AMBULATORY - NONE [facility] Jun 02, 2021 02:40 PM AMBULATORY - MEDICINE [facility] Jun 06, 2021 02:30 PM AMBULATORY - NONE [facility] Jun 09, 2021 02:00 PM AMBULATORY - SURGERY [facility] June 21, 2021 01:45 PM AMBULATORY - NONE [facility] June 22, 2021 09:30 AM AMBULATORY - NONE [facility] June 22, 2021 12:30 PM AMBULATORY - NONE [facility] June 22, 2021 01:30 PM AMBULATORY - SURGERY [facility] June 22, 2021 02:30 PM AMBULATORY - NONE [facility] June 27, 2021 12:30 PM AMBULATORY - NONE [facility] June 27, 2021 01:30 PM AMBULATORY - NONE [facility] June 28, 2021 11:00 AM AMBULATORY - NONE [facility] July 04, 2021 12:15 PM AMBULATORY - NONE [facility] July 04, 2021 01:15 PM AMBULATORY - SURGERY [facility] July 06, 2021 10:15 AM AMBULATORY - NONE [facility] July 07, 2021 01:00 PM AMBULATORY - NONE [facility] Active, [...] the Encounter. The data comes from all [facility]. Test Date/Time Test Type Test Details Facility Name May 11, 2021 02:31 PM Pharmacy - Clinic Infusion [facility] Order Lab Results: +/- 30 days of the encounter This section includes the Chemistry and Hematology Lab Results on record with [place] for the patient. Radiology Reports and Pathology Reports are provided separately, in subsequent sections.Lab Results This section contains the Chemistry/Hematology Results that were resulted 30 days before or 30 daysafter the date of the Encounter. Date/Time Source Result Type Result - Unit Interpretation Reference Range Comment Apr 28, 2021 03:12 [facility] COVID-19 AND FLU SCRN Spe cimen Type: NASOPHARYNGEAL PM PANEL (FLUVID) No comment enter ed. Ordering Provid er: CARIDAD DENNIS Report Released Date/Time: Apr 28, 2021 02:10 PM Reporting Lab: [facility] [address] [facility] [address] Performing Lab: [facility] [address] [facility] [address] COVID-19 PCR (FLUVID) Not Detected Not D etected FLU A PCR (FLUVID) Not Detected Not Dete cted FLU B PCR (FLUVID) Not Detected Not Dete cted Apr 28, 2021 01:17 PM [facility] HEMOGLOBIN A1C Specim en Type: BLOOD No comment enter ed. Ordering Provid er: CARIDAD DENNIS Report Released Date/Time: Apr 25, 2021 12:00 PM Reporting Lab: [facility] [address] [facility] [address] Performing Lab: [facility] [address] [facility] [address] HEMOGLOBIN A1C 8.0 H 4.0-6.0 Apr 28, 2021 01:17 [facility] TSH W/REFLEX TO FREE Spec imen Type: PLASMA PM T4 No comment enter ed. Ordering Provid er: CARIDAD DENNIS Report Released Date/Time: Apr 25, 2021 12:00 PM Reporting Lab: [facility] [address] [facility] [address] Performing Lab: [facility] [address] [facility] [address] TSH 0.73 0.35-4.94 Apr 28, 2021 01:17 [facility] PROTHROMBIN TIME/INR Spec imen Type: PLASMA PM No comment enter ed. Ordering Provid er: CARIDAD DENNIS Report Released Date/Time: Apr 25, 2021 12:00 PM Reporting Lab: [facility] [address] [facility] [address] Performing Lab: [facility] [address] [facility] [address] .INR 1.1 0.8-1.1 .PT 13.2 H 9.4-12.5 Apr 28, 2021 01:17 PM [facility] CBC Specim en Type: BLOOD No comment enter ed. Ordering Provid er: CARIDAD DENNIS Report Released Date/Time: Apr 25, 2021 12:00 PM Reporting Lab: [facility] [address] [facility] [address] Performing Lab: [facility] [address] WBC 4.06 4.0-11.0 RBC 5.41 4.6-6.2 HGB 14.8 13.5-17.9 HCT 47.0 41-54 MCV 86.9 80-100 MCH 27.4 27-33 MCHC 31.5 L 32.0-37.5 PLT 263 150-400 MPV 9.2 7.4-10.4 RDW 14.2 11.5-14.5 Apr 28, 2021 [facility] COMPREHENSIVE METABOLIC Spec imen Type: PLASMA 01:17 PM PANEL+MG No comment enter ed. Ordering Provid er: CARIDAD DENNIS Report Released Date/Time: Apr 25, 2021 12:00 PM Reporting Lab: [facility] [address] [facility] [address] Performing Lab: [facility] [address] CREATININE 0.7 0.7-1.2 UREA NITROGEN 16 8-26 [...] smoking and tobacco-related health factors from the [place] facility where the Encounter took place.Current Smoking Status This section includes the most current smoking, or tobacco-related health factor, from the [place] facility where the Encounter took place. Date/Time Current Smoking Status Comment Facility Apr 25, 2021 11:00 AM VA-TOBACCO NEVER USED [place] [facility] Tobacco Use History This section includes a history of the smoking, or tobacco- related health factors, that were collected on or before the date of the Encounter. The data comes from the [facility] where the Encounter took place. Date/Time Smoking Status/Tobacco Use Comment [facility] July 09, 2020 02:00 PM VA-TOBACCO FORMER USER [place] [facility] July 09, 2020 02:00 PM VA-TOBACCO QUIT 15 YRS OR MORE [facility] Apr 17, 2019 02:39 PM INPT NO TOBACCO USE IN LAST 30 DAYS [facility] Feb 04, 2019 10:37 AM [place]-TO[place]ACCO [place]ED [place] [facility] Jan 30, 2018 03:28 PM [place]-TOBACCO QUIT 15 YRS OR MORE [facility] [...] ALL of a patient's completed or amended [place] Advance and Rescinded Directives. The entries below indicate that a directive exists for the patient, but an actual copy is not included with this document. The data comes from all [facility]. Date Advance Directives Provider Source May 29, 2017 CLINICAL WARNING CORNELIO FREITAS [facility] May 16, 2017 ADVANCE DIRECTIVE SERENITY BUENROSTRO [facility] May 16, 2017 ADVANCE DIRECTIVE DISCUSSION SEREN[place]O [place] [facility] May 04, 2017 CLINICAL WARNING MAGO DIAMOND MOULTRIE V [facility] May 04, 2017 CLINICAL WARNING GAEL ROSARIO [facility] Apr 26, 2017 CLINICAL WARNING JENNIFER DE LEON [facility] Jan 01, 2017 CLINICAL WARNING AYDE WELLS [facility] Jun 09, 2004 ADVANCE DIRECTIVE DARYL VILLARREAL [facility] Jun 07, 2004 ADVANCE DIRECTIVE AMIESHERYL ANN [facility] Radiology Reports: +/- 30 days [...] the Encounter. The data comes from all [place] treatment facilities. Date/Time Radiology Report Provider Source May 20, 2021 09:03 AM FOOT RIGHT 3 VIEWS OR MORE: SEBASTIÁN ROMERO [facility] JESSICA MOJICA [id number] [birth year] M Exm Date: MAY 20, 2021@09:03 Req Phys: DEBRA KERNS Loc: [facility] VISN23 [facility] TRIAGE Im Loc: MAIN X-RAY Service: Unknown (Case [id number] COMPLETE) FOOT RIGHT 3 VIEWS OR MORE (RAD Detailed) CPT:52611 Proc Modifiers : WEIGHT BEARING Reason for Study: charcot foot Clinical History: IS NOT under investigation for COVID-19 or is COVID-19 negative charcot foot Responsible provider name and phon e number to notify for critical findings if other than user placing the order and pager listed below: User placing orders pag er: [phone] LAST CREATININE 0.7 (04/28/21) Report Status: Verified Date Reported: MAY 20, 2021 Date Verified: MAY 20, 2021 Assistant Refinery Operator E-Sig:/ES/SEBASTIÁN ROMERO MD Report: EXAMINATION: FOOT RIGHT 3 VIEWS OR MORE, 05/21/19 9:03 AM COMPARISON: 08/02/2020 HISTORY: Reason for Study: charcot foot IS NOT under investigation for COVID-19 or is COVID-19 negative charcot foot Responsible provider name and phon e number to notify for critical findings if other than user placing the order and pager listed below: User placing orders pag er: [phone] LAST CREATININE 0.7 (04/28/21) Impression: 1. 3 [...] Primary Interpreting Staff: SEBASTIÁN ROMERO MD, RADIOLOGIST (Assistant Refinery Operator) /JRT May 20, 2021 09:03 AM FOOT LEFT 3 VIEWS OR MORE: SEBASTIÁN ROMERO [facility] JESSICA MOJICA [id number] -[birth year] M Exm Date: MAY 20, 2021@09:03 Req Phys: DEBRA KERNS Pat Loc: [facility] VISN23 [facility] TRIAGE Img Loc: MAIN X-RAY Service: Unknown (Case [id number] COMPLETE) FOOT LEFT 3 VIEWS OR MORE ( RAD Detailed) CPT:03712 Proc Modifiers : WEIGHT BEARING Reason for Study: charcot foot Clinical History: IS NOT under investigation for COVID-19 or is COVID-19 negative charcot foot Responsible provider name and phon e number to notify for critical findings if other than user placing the order and pager listed below: User placing orders pag er: [phone] LAST CREATININE 0.7 (04/28/21) Report Status: Verified Date Reported: MAY 20, 2021 Date Verified: MAY 20, 2021 Assistant Refinery Operator E-Sig:/ES/SEBASTIÁN ROMERO MD Report: EXAMINATION: FOOT LEFT 3 VIEWS OR MORE, 2 9:03 AM COMPARISON: None available HISTORY: Reason for Study: charcot foot [place] IS NOT under investigation for COVID-19 or is COVID-19 negative charcot foot Responsible provider name and phon e number to notify for critical findings if other than user placing the order and pager listed below: User placing orders [facility] er: [phone] LAST CREATININE 0.7 (04/28/21) Impression: 3 nonweightbearing [...] Primary Interpreting Staff: SEBASTIÁN ROMERO MD, RADIOLOGIST (Assistant Refinery Operator) /JRT Apr 28, 2021 09:06 AM MYOCARDIAL PERFUSION PHARMACOLOGIC STR ESS/REST: DARIN BAKER [facility] JESSICA MOJICA [id number] -[birth year] 8 M Ex Date: APR 28, 2021@09:06 Req Phys: CARIDAD DENNIS Pat Loc: [facility] PACT SAPPHIRE 4E (Req'g Lo Img Loc: NUC MED Service: Unknown (Case [id number] COMPLETE) MYOCARDIAL PERFUSION (SPECT )-MULT(NM Detailed) CPT:73495 Reason for Study: CAD, PAD risk stratefication prior to surgery 05/02 (Case 2145 COMPLETE) TC-99M SESTAMIBI (CARDIOLIT E), PE(NM Detailed) CPT:A9500 (Case [id number] COMPLETE) CARDIOVASCULAR STRESS TEST (NM Detailed) CPT:42965 Clinical History: Is this patient on Observation Status? No surgery 05/02/21. please schedule prior if possi ble h/o CAD, PAD. limited ability to walk due to fo ot issues [place] IS NOT under investigation for COVID-19 or is COVID-19 negative 75 yo M with Responsible provider name and phon e number to notify for critical findings if other than user placing the order and pager listed below: User placing orders [facility] er: [phone] LAST CREATININE 0.6 L (12/15/20) Is the patient taking/taken dipyridamole/aggren ox in the last week? No Has patient taken theophylline product s in the last 3 days? No Patient has been educated not to consu me coffee, Sanka, tea or soft drinks 8 hours prior to test? Yes Report Status: Verified Date Reported: APR 28, 2021 Date Verified: APR 28, 2021 Assistant Refinery Operator E-Sig:/ES/DARIN BAKER MD Report: Regadenoson myocardial [...] Encounter Note(s) Provider Source May 11, 2021 05:10 PM CARDIOLOGY PROCEDURE NOTE: [facility] LOCAL TITLE: ECHOCARDIOGRAM PROCEDURE STANDARD TITLE: CARDIOLOGY PROCEDURE NOTE DATE OF NOTE: MAY 11, 2021@17:10:13 ENTRY DATE: MAY 11, 2021@17:10:13 AUTHOR: CLINICAL,DEVICE PRO EXP COSIGNER: URGENCY: STATUS: COMPLETED PROCEDURE SUMMARY CODE: Machine Resulted DATE/TIME PERFORMED: MAY 11, 2021@12:22:1 DOCUMENT IN VISTA IMAGING SEE FULL REPORT IN VISTA IMAGING SIGNATURE NOT REQUIRED SEE SIGNATURE IN VISTA IMAGING (XCELERA ISCV TTE OUTPT) AUTO-INSTRUMENT DIAG NOSIS Procedure: M_TTE Adult Release Status: Released Off-Line Verified Date Verified: May 11, 2021@17:09:50 Study ID: [id number] [employer] + + [place], [place] + + [facility] [address] [place] Transthoracic Echocardiogram Report + :Name: JESSICA MOJICA Study Date: 022 Height: 72 in : : Patient Location: [facility] 3JWeight: 235 lb: :: 1945 Gender: Male BSA: 2.3 m2 : :Age: 75 yrs : : Order Number: [id number] : :Reason For Study: Aortic Stenosis : + :Office Mover: Luba Sampson RDCS : + :Referring Physician: SARAH HOFF : + + Interpretation Summary A complete two-dimensional transthoracic echocar diogram (65431) was performed with contrast (Q9957). 1. Moderate/severe calcific aortic valve stenosi s. Mean gradient 26 mm Hg. Peak velocity 3.2 m/sec. Aortic valve area 0.98 cm2. DI 0.26. Stroke volume index low normal at 37 mL/m2. 2. Normal left ventricular size with low normal systolic function. Estimated left ventricular ejection fraction 50%. Apical h ypokinesis present. 3. Normal right ventricular size with mi ldly reduced systolic function. Unable to estimate right ventricular systolic pressure. 4. Mild tricuspid valve regurgitation. 5. Normal size inferior vena cava with normal co llapse. 6. Compared to the echocardiogram from 0, the aortic valve area has decreased. The mean gradient and peak velocity a re lower, likely due to a lower stroke volume on today's study (previous s troke volume index was 52 mL/m2). This lower stroke volume could be from a slight decrease in the left ventricular systolic function (also, the patient is no longer anemic). Side by side comparison performed. Procedure A complete two-dimensional transthoracic echocar diogram (04952) was performed with contrast (Q9957). Study quality is technica lly difficult. Left Ventricle The left ventricle is normal in size. The left v entricular wall thickness is mild to moderately increased. The left ventricul ar systolic function is normal. This study was inadequate for the assess ment of regional wall motion. Findings consistent with increased left ventricu lar filling pressure. Right Ventricle The right ventricle is normal size. The right ventricular systolic function is mildly reduced. Left Atrium/Right Atrium/Atrial Septum The left atrium is mild to moderately dilated. R ight atrial size is normal. Mitral Valve Mild to moderate mitral annular calcification. T here is trivial mitral valve regurgitation. Tricuspid Valve There is mild tricuspid regurgitation. Aortic Valve Calcified aortic valve. The number of aortic cus ps could not be determined. Trivial AR. Moderate to severe aortic valve sten osis. Aortic valve area by continuity equation is 1.0 cm\S\2. Pulmonic Valve There is no pulmonic valve regurgitation. Aorta The aortic root is normal in size. Normal ascend ing aorta. Pulmonary Artery Unable to estimate RVSP on this exam. Pericardium/Pleural There is no pericardial effusion. Inferior Vena Cava/Hepatic Veins The inferior vena cava is normal in size, and co llapses normally with respiration. + + :Measurements : :LA dimension: 4.3 cm(2.7-4.0 cm) LVIDd: 4.6 cm( 3.9-5.9 cm) : : : : :LVIDs: 3.2 cm(2.0-4.0 cm) IVSd: 1.4 cm(0.6-1.1 cm) : : : : :LVPWd: 1.3 cm(0.6-1.1 cm) TAPSE: 1.8 cm(>1.7) : : : : :EF(Gay): 57.2 %(52-74%) : + + MMode/2D Measurements \T\ Calculations FS: 29.9 % Ao root diam: 3.4 cm EDV(Kenyich): 96.3 ml ESV(Kenyich): 41.3 ml Asc Aorta diam: 3.8 cm LVOT diam: 2.2 cm LVLd ap4: 8.4 cm LVLd ap2: 8.1 cm EDV(MOD-sp4): 94.2 ml EDV(MOD-sp2): 123.0 ml LVLs ap4: 7.1 cm LVLs ap2: 7.0 cm ESV(MOD-sp4): 41.1 ml ESV(MOD-sp2): 54.0 ml EF(MOD-sp4): 56.4 % EF (MOD-bp): 57.1 % SV(MOD-sp4): 53.1 ml LAV (MOD-bp): 65.2 ml LAV Index (MOD-bp): 28.6 ml/m2 IVC Diam: 1.8 cm LA Length: 6.1 cm Doppler Measurements \T\ Calculations MV E max skip: 82.3 cm/sec MV A max skip: 101.0 cm/sec MV dec slope: 355.0 c m/sec2 MV E/A: 0.81 MV dec time: 0.23 sec Lat Peak E' Skip: 6.3 cm/sec Ao V2 max: 321.0 cm/ sec Lat E/e': 13.0 Ao max P.2 mmHg Med E/e': 17.2 Ao V2 mean: 233.8 cm/sec Med Peak E' Skip: 4.8 cm/sec Ao mean P.0 mmH g Ao V2 VTI: 86.3 cm NEELIMA(I,D): 0.98 cm2 NEELIMA(V,D): 0.98 cm2 LV V1 max P.9 mmHg SV(LVOT): 84.8 ml LV V1 mean P.0 mmHg LV V1 max: 84.5 cm/sec LV V1 mean: 60.2 cm/sec LV V1 VTI: 22.7 cm Dimensionless Index (DI): 0.26 Ratio of MV Peak Velocity to L: 13.0 NEELIMA(VTI)/BSA: 0.40 Electronically signed by: Stefano Huff MD on 0 05/11/2021 Reading Physician:05:09 PM Administrative Closure: 05/11/2021 by: CLINICAL,DEVICE PROXY SERVICE
--- OUTSIDE RECORDS SUMMARY | 2021-12-23 17:36 | XMS_ITS | Encounter Summary ---
:1945 Author Organization [facility] Address [address] [place] [id number] Support Name Relationship Address Phone FRANCES GANDARA Unavailable [address] [place] [address] FRANCES GANDARA Unavailable [address] [place] [address] FRANCES GANDRAA Unavailable [address] [place] [address] FRANCES GANDARA Unavailable [address] [place] [address] Insurance Providers: All historical and current Section [...] MEDICARE MEDICARE PART Apr 19, PART A [id number] Whit MOJICA (WNR) (M) A 2007 [id number] [phone] JESSICA MEDICARE MEDICARE PART Apr 19, PART A [id number] Whit MOJICA (WNR) (M) A 2007 [id number] [phone] JESSICA Selected Encounter This section includes the information on record at [place] for the Encounter. Date/Time Encounter Type Encounter Reason Provider Source Description May 20, 2021 [facility] ICD-10-CM Z48.00 KIRSTIE OLIVEIRA 11:46 AM ASSMT&MGMT 5-10 Encounter for E K change or removal of nonsurg wound dressing with Provider Comments: Encounter for Change or Removal of Nonsurgical Wound Dressing IHE Encounter Template Text not used by [place] Assessments - Encounter Diagnoses This section includes the primary and secondary diagnoses documented for the Encounter. Date/Time Primary/Secondary Diagnosis Name Provider Source Diagnosis May 20, 2021 PRIMARY Encounter for KIRSTIE OLIVEIRA [facility] 11:48 AM change or E K HCS removal of nonsurg wound dressing Plan of Treatment: Future Appointments (+ 6 months) and Future Tests (+/- 45 days) The Plan of Treatment section includes future care activities for the patient from all [place] treatmentfacilities. This section includes future appointments and future orders which are active, pending orscheduled.Future Appointments This section includes appointments that were scheduled to occur 6 months from the date of the Encounter, up to a maximum of 20 appointments. The data comes from all [place] treatment facilities. Appointment Date/Time Appointment Type Appointment Facili ty Name May 24, 2021 03:30 PM AMBULATORY - NONE [facility] Jun 02, 2021 02:40 PM AMBULATORY - MEDICINE [facility] Jun 06, 2021 02:30 PM AMBULATORY - NONE [facility] Jun 09, 2021 02:00 PM AMBULATORY - SURGERY [facility] June 21, 2021 01:45 PM AMBULATORY - NONE [facility] June 22, 2021 09:30 AM AMBULATORY - NONE [facility] June 22, 2021 12:30 PM AMBULATORY - NONE [facility] June 22, 2021 01:30 PM AMBULATORY - SURGERY [facility] June 22, 2021 02:30 PM AMBULATORY - NONE [facility] June 27, 2021 12:30 PM AMBULATORY - NONE [facility] June 27, 2021 01:30 PM AMBULATORY - NONE [facility] June 28, 2021 11:00 AM AMBULATORY - NONE [facility] July 04, 2021 12:15 PM AMBULATORY - NONE [facility] July 04, 2021 01:15 PM AMBULATORY - SURGERY [facility] July 06, 2021 10:15 AM AMBULATORY - NONE [facility] July 07, 2021 01:00 PM AMBULATORY - NONE [facility] July 07, 2021 02:00 PM AMBULATORY - SURGERY [facility] July 13, 2021 09:00 AM AMBULATORY - REHAB MEDICINE [facility] July 14, 2021 02:10 PM AMBULATORY - NONE [facility] Jul 21, 2021 09:45 AM AMBULATORY - NONE [facility] Active, Pending, and Scheduled Orders [...] 2021 02:31 PM Pharmacy - Clinic Infusion [facility] Order Lab Results: +/- 30 days of the encounter This section includes the Chemistry and Hematology Lab Results on record with [place] for the patient. Radiology Reports and Pathology Reports are provided separately, in subsequent sections.Lab Results This section contains the Chemistry/Hematology Results that were resulted 30 days before or 30 daysafter the date of the Encounter. Date/Time Source Result Type Result - Unit Interpretation Reference Range Comment Apr 28, 2021 03:12 [facility] COVID-19 AND FLU SCRN Spe cimen Type: NASOPHARYNGEAL PM PANEL (FLUVID) No comment enter ed. Ordering Provid er: CARIDAD DENNIS Report Released Date/Time: Apr 28, 2021 02:10 PM Reporting Lab: [facility] [address] [facility] [address] Performing Lab: [facility] [address] [facility] [address] COVID-19 PCR (FLUVID) Not Detected Not D etected FLU A PCR (FLUVID) Not Detected Not Dete cted FLU B PCR (FLUVID) Not Detected Not Dete cted Apr 28, 2021 01:17 PM [facility] HEMOGLOBIN A1C Specim en Type: BLOOD No comment enter ed. Ordering Provid er: CARIDAD DENNIS Report Released Date/Time: Apr 25, 2021 12:00 PM Reporting Lab: [facility] [address] [facility] [address] Performing Lab: [facility] [address] [facility] [address] HEMOGLOBIN A1C 8.0 H 4.0-6.0 Apr 28, 2021 01:17 [facility] TSH W/REFLEX TO FREE Spec imen Type: PLASMA PM T4 No comment enter ed. Ordering Provid er: CARIDAD DENNIS Report Released Date/Time: Apr 25, 2021 12:00 PM Reporting Lab: [facility] [address] [facility] [address] Performing Lab: [facility] [address] [facility] [address] TSH 0.73 0.35-4.94 Apr 28, 2021 01:17 PM [facility] CBC Specim en Type: BLOOD No comment enter ed. Ordering Provid er: CARIDAD DENNIS Report Released Date/Time: Apr 25, 2021 12:00 PM Reporting Lab: [facility] [address] [facility] [address] Performing Lab: [facility] [address] WBC 4.06 4.0-11.0 RBC 5.41 4.6-6.2 HGB 14.8 13.5-17.9 HCT 47.0 41-54 MCV 86.9 80-100 MCH 27.4 27-33 MCHC 31.5 L 32.0-37.5 PLT 263 150-400 MPV 9.2 7.4-10.4 RDW 14.2 11.5-14.5 Apr 28, 2021 01:17 [facility] PROTHROMBIN TIME/INR Spec imen Type: PLASMA PM No comment enter ed. Ordering Provid er: CARIDAD DENNIS Report Released Date/Time: Apr 25, 2021 12:00 PM Reporting Lab: [facility] [address] [facility] [address] Performing Lab: [facility] [address] [facility] [address] .INR 1.1 0.8-1.1 .PT 13.2 H 9.4-12.5 Apr 28, 2021 [facility] COMPREHENSIVE METABOLIC Spec imen Type: PLASMA 01:17 PM PANEL+MG No comment enter ed. Ordering Provid er: CARIDAD DENNIS Report Released Date/Time: Apr 25, 2021 12:00 PM Reporting Lab: [facility] [address] [facility] [address] Performing Lab: [facility] [address] [facility] [address] CREATININE 0.7 0.7-1.2 UREA NITROGEN 16 8-26 [...] smoking and tobacco-related health factors from the [facility] where the Encounter took place.Current Smoking Status This section includes the most current smoking, or tobacco-related health factor, from the [place] facility where the Encounter took place. Date/Time Current Smoking Status Comment Facility Apr 25, 2021 11:00 AM VA-TOBACCO NEVER USED [facility] Tobacco Use History This section includes a history of the smoking, or tobacco- related health factors, that were collected on or before the date of the Encounter. The data comes from the [place] facility where the Encounter took place. Date/Time Smoking Status/Tobacco Use Comment [facility] July 09, 2020 02:00 PM VA-TOBACCO FORMER USER [facility] July 09, 2020 02:00 PM VA-TOBACCO QUIT 15 YRS OR MORE [facility] Apr 17, 2019 02:39 PM INPT NO TOBACCO USE IN LAST 30 DAYS [facility] Feb 04, 2019 10:37 AM GA-TOBACCO NEVER USED [facility] Oct 15, 2018 02:43 PM INPT NO TOBACCO USE IN LAST 30 DAYS [facility] Oct 13, 2018 11:30 PM INPT NO TOBACCO USE IN LAST 30 DAYS [facility] Sep 02, 2018 05:50 PM INPT NO TOBACCO USE IN LAST 30 DAYS [facility] Aug 12, 2018 07:28 PM INPT NO TOBACCO USE IN LAST 30 DAYS [facility] Jan 30, 2018 03:28 PM VA-TOBACCO FORMER USER [facility] Jan 30, 2018 03:28 PM VA-TOBACCO QUIT 15 YRS OR MORE [facility] May 29, 2017 04:53 PM INPT NO TOBACCO USE IN LAST 30 DAYS [facility] Apr 25, 2017 10:44 PM INPT NO TOBACCO USE IN LAST 30 DAYS [facility] Jan 01, 2017 06:40 PM INPT NO TOBACCO USE IN LAST 30 DAYS [facility] Dec 21, 2016 02:43 PM FORMER TOBACCO USER 7Y OR GREATER [facility] Sep 24, 2013 08:52 AM FORMER TOBACCO USER 7Y OR GREATER [facility] Advance Directives: All historical and current Section Date Range: From patient's date of to the date document was created. This section includes ALL of a patient's completed or amended [place] Advance and Rescinded Directives. The entries below indicate that a directive exists for the patient, but an actual copy is not included with this document. The data comes from all [facility]. Date Advance Directives Provider Source May 29, 2017 CLINICAL WARNING [facility] May 16, 2017 ADVANCE DIRECTIVE CHITRASERENITY Trey [facility] May 16, 2017 ADVANCE DIRECTIVE DISCUSSION CHITRASERENITY A IA [facility] May 04, 2017 CLINICAL WARNING MAGO DIAMOND [facility] May 04, 2017 CLINICAL WARNING ABRAHAMENDERN [facility] Apr 26, 2017 CLINICAL WARNING NANCYJENNIFER KUMAR Whit [facility] Jan 01, 2017 CLINICAL WARNING AYDE WELLS [facility] Jun 09, 2004 ADVANCE DIRECTIVE DARYL VILLARREAL [facility] Jun 07, 2004 ADVANCE DIRECTIVE SHERYL HOLLOWAY [facility] Radiology Reports: +/- 30 [...] the Encounter. The data comes from all [facility] facilities. Date/Time Radiology Report Provider Source May 20, 2021 09:03 AM FOOT LEFT 3 VIEWS OR MORE: SEBASTIÁN ROMERO [facility] JESSICA MOJICA [id number] [birth year] 8 M Exm Date: MAY 20, 2021@09:03 Req Phys: DEBRA KERNS Loc: [facility] VISN[facility] TRIAGE Img Loc: MAIN X-RAY Service: Unknown (Case [id number] COMPLETE) FOOT LEFT 3 VIEWS OR MORE ( RAD Detailed) CPT:74582 Proc Modifiers : WEIGHT BEARING Reason for Study: charcot foot Clinical History: IS NOT under investigation for COVID-19 or is COVID-19 negative charcot foot Responsible provider name and phon e number to notify for critical findings if other than user placing the order and pager listed below: User placing orders pag er: [phone] LAST CREATININE 0.7 (04/28/21) Report Status: Verified Date Reported: MAY 20, 2021 Date Verified: MAY 20, 2021 Attendance Clerk E-Sig:/ES/SEBASTIÁN ROMERO MD Report: EXAMINATION: FOOT LEFT 3 VIEWS OR MORE, 2 9:03 AM COMPARISON: None available HISTORY: Reason for Study: charcot foot IS NOT under investigation for COVID-19 or is COVID-19 negative charcot foot Responsible provider name and phon e number to notify for critical findings if other than user placing the order and pager listed below: User placing orders pag er: [phone] LAST CREATININE 0.7 (04/28/21) Impression: 3 nonweightbearing [...] Primary Interpreting Staff: SEBASTIÁN ROMERO MD, RADIOLOGIST (Attendance Clerk) /JRT May 20, 2021 09:03 AM FOOT RIGHT 3 VIEWS OR MORE: SEBASTIÁN ROMERO [facility] JESSICA MOJICA [id number] -[birth year] 8 M Exm Date: MAY 20, 2021@09:03 Req Phys: DEBRA KERNS Loc: [facility] VISN[facility] TRIAGE Im Loc: MAIN X-RAY Service: Unknown (Case [id number] COMPLETE) FOOT RIGHT 3 VIEWS OR MORE (RAD Detailed) CPT:19246 Proc Modifiers : WEIGHT BEARING Reason for Study: charcot foot Clinical History: [place] IS NOT under investigation for COVID-19 or is COVID-19 negative charcot foot Responsible provider name and phon e number to notify for critical findings if other than user placing the order and pager listed below: User placing orders pag er: [phone] LAST CREATININE 0.7 (04/28/21) Report Status: Verified Date Reported: MAY 20, 2021 Date Verified: MAY 20, 2021 Attendance Clerk E-Sig:/ES/SEBASTIÁN ROMERO MD Report: EXAMINATION: FOOT RIGHT 3 VIEWS OR MORE, 05/21/19 9:03 AM COMPARISON: 08/02/2020 HISTORY: Reason for Study: charcot foot IS NOT under investigation for COVID-19 or is COVID-19 negative charcot foot Responsible provider name and phon e number to notify for critical findings if other than user placing the order and pager listed below: User placing orders pag er: [phone] LAST CREATININE 0.7 (04/28/21) Impression: 1. 3 [...] Primary Interpreting Staff: SEBASTIÁN ROMERO MD, RADIOLOGIST (Attendance Clerk) /JRT Apr 28, 2021 09:06 AM MYOCARDIAL PERFUSION PHARMACOLOGIC STR ESS/REST: DARIN BAKER [facility] JESSICA MOJICA [id number] -[birth year] 8 M Exm Date: APR 28, 2021@09:06 Req Phys: CARIDAD DENNIS Pat Loc: [facility] PACT SAPPHIRE 4E (Req'g Lo Img Loc: NUC MED Service: Unknown (Case [id number] COMPLETE) MYOCARDIAL PERFUSION (SPECT )-MULT(NM Detailed) CPT:83992 Reason for Study: CAD, PAD risk stratefication prior to surgery 05/02 (Case 2145 COMPLETE) TC-99M SESTAMIBI (CARDIOLIT E), PE(NM Detailed) CPT:A9500 (Case 2146 COMPLETE) CARDIOVASCULAR STRESS TEST (NM Detailed) CPT:82457 Clinical History: Is this patient on Observation Status? No surgery 05/02/21. please schedule prior if possi ble h/o CAD, PAD. limited ability to walk due to fo ot issues [place] IS NOT under investigation for COVID-19 or is COVID-19 negative 75 yo M with Responsible provider name and phon e number to notify for critical findings if other than user placing the order and pager listed below: User placing orders pag er: [phone] LAST CREATININE 0.6 L (12/15/20) Is the patient taking/taken dipyridamole/aggren ox in the last week? No Has patient taken theophylline product s in the last 3 days? No Patient has been educated not to consu me coffee, Sanka, tea or soft drinks 8 hours prior to test? Yes Report Status: Verified Date Reported: APR 28, 2021 Date Verified: APR 28, 2021 Attendance Clerk E-Sig:/ES/DARIN BAKER MD Report: Regadenoson myocardial perfusion [...] Encounter. Date/Time Encounter Note(s) Provider Source May 20, 2021 11:46 PHARMACY CONSULT: [facility]FAEL OL[facility] TITLE: PHARMACY PRIOR AUTHORIZATION APPRO ZOILA CONSULT STANDARD TITLE: PHARMACY CONSULT DATE OF NOTE: MAY 20, 2021@11:46 ENTRY DATE: MAY 20, 2021@11:46:40 AUTHOR: RAFAEL OLIVEIRA EXP COSIGNER: URGENCY: STATUS: COMPLETED The medical record has been reviewed with regard to this prior authorization drug request. Medication requested: DRESS,MEPILEX BORDER FLEX 4X4IN #[id number] Medication indication: FOOT WOUND Medical history relevant to this request: Request for absorbent, self-adhering dressing. The request is approved - No formulary-preferred alternative Active Outpatient Medications (including Supplie s): ACCU-CHEK [...] PREP PAD USE 1 PAD TOPICALLY DIRECTED PENDING ARTIFICIAL SALIVA (BIOTENE MOUTH) SPRAY SPRAY 1- 2 SPRAYS ACTIVE IN MOUTH EVERY HOUR NEEDED FOR DRY MOUTH ARTIFICIAL TEARS POLYVINYL ALCOHOL INSTILL 1 EUGENIA P IN BOTH ACTIVE EYES THREE TIMES A DAY NEEDED FOR DRY EYES ASPIRIN 81MG EC TAB TAKE ONE TABLET BY MOUTH ROGE DAY TO ACTIVE PREVENT HEART ATTACK DO NOT CHEW ATORVASTATIN CALCIUM 80MG TAB TAKE ONE TABLET BY MOUTH AT ACTIVE BEDTIME FOR CHOLESTEROL AND HEART DISEASE BUMETANIDE 1MG TAB TAKE ONE TABLET BY MOUTH TWIC E A DAY ACTIVE FOR FLUID RETENTION BUPROPION HCL 150MG 24HR SA TAB TAKE ONE TABLET BY MOUTH ACTIVE EVERY DAY CARBOXYMETHYLCELLULOSE NA 0.5% OPH SOLN INSTILL 1 DROP IN ACTIVE BOTH EYES FOUR TIMES A DAY FOR DRY EYES CHOLECALCIF 25MCG (D3-1,000UNIT) TAB TAKE ONE TA BLET BY ACTIVE MOUTH EVERY DAY FOR VITAMIN D SUPPLEMENTATION CITALOPRAM HYDROBROMIDE 20MG TAB TAKE ONE TABLET BY MOUTH ACTIVE (S) EVERY DAY FOR DEPRESSION CLEANSER,WOUND SKINTEGRITY TOP SPRAY SPRAY TO LE FT HEEL ACTIVE AND RIGHT FOOT SUNDAY, SUNDAY AND SUNDAY INSTRUCTED FOR DRESSING CHANGES CODEINE 10/GG 100MG/5ML (ALC-F/SF) LIQ TAKE 5 ML TO 10 ML ACTIVE BY MOUTH THREE TIMES A DAY NEEDED FOR COUGH CYANOCOBALAMIN 1000MCG TAB TAKE TWO TABLETS BY M OUTH EVERY ACTIVE (S) WEEK FOR VITAMIN B12 SUPPLEMENT DICLOFENAC NA 1% TOP GEL APPLY 4 GRAMS TO KNEE F OUR TIMES ACTIVE A DAY NEEDED FOR PAIN -USE DOSE CARD IN BOX TO MEASURE DOSE -MAXIMUM OF 32 GM PER DAY DOCUSATE NA 100MG CAP TAKE ONE CAPSULE BY MOUTH TWICE A ACTIVE DAY *STOP IF HAVING DIARRHEA* DRESS,MEPILEX BORDER FLEX 4X4IN #[id number] APPLY 1 DRESSING ACTIVE DIRECTED DRESSING,MEPILEX DRESSING,TOP APPLY 1 DRESSING P ENDING DRESSING,MEPILEX BORDER 4X4IN #[id number] TOPICALLY DIRECTED EMPAGLIFLOZIN 25MG TAB TAKE ONE-HALF TABLET BY M OUTH EVERY ACTIVE MORNING FOR DIABETES ERGOCALCIF 1,250MCG (D2-50,000UNIT) CAP TAKE ONE CAPSULE ACTIVE BY MOUTH EVERY MONTH FLUTICASONE PROP 50MCG [...] 600MG TAB TAKE ONE TABLET BY MOUTH ROGE ACTIVE NEEDED FOR JOINT PAIN TAKE WITH [...] PATCH EVERY DAY FOR B ACK ACTIVE (S) PAIN -WEAR FOR ONLY 12 HOURS AND THEN REMOVE AN D LEAVE OFF FOR 12 HOURS LOSARTAN 50MG TAB TAKE ONE-HALF TABLET BY MOUTH EVERY DAY ACTIVE FOR HIGH BLOOD PRESSURE METFORMIN HCL 500MG/5ML ORAL SOLN TAKE TWO TEASP OONSFUL BY ACTIVE MOUTH TWICE A DAY MULTIVIT W/MINERALS, CAP/TAB TAKE 1 TABL ET [...] TABLET BY MOUT H TWICE A ACTIVE (S) DAY FOR HAND TREMOR ROPINIROLE HCL 2MG SA TAB TAKE TWO TABLETS BY MO UTH EVERY ACTIVE (S) DAY SEMAGLUTIDE 1MG/0.75ML INJ PEN 3ML INJECT 1MG UN ALEENA THE ACTIVE SKIN EVERY WEEK SODIUM CHLORIDE [...] SUPPLY TAPE,MEDIPORE H SOFT 4IN X 10YD 3M#7654 CUT AND APPLY TAPE ACTIVE DIRECTED TRIAMCINOLONE ACETONIDE 0.1% OINT APPLY MODERATE AMOUNT ACTIVE TWICE A DAY NEEDED FOR ITCHING AVOID FACE, GROIN & ARMPITS *FOR EXTERNAL USE ONLY VANICREAM TOP CREAM APPLY THIN LAYER TOPICALLY E VERY DAY ACTIVE FOR DRY SKIN APPLY TO FEET AND LEGS VASHE WOUND THERAPY TOP SOLN SATURATE GAUZE WITH SOLUTION ACTIVE AND USE DIRECTED VITAMIN E 180MG (400UNIT) CAP TAKE ONE CAPSULE B Y MOUTH ACTIVE EVERY DAY Non-VA OXYMETAZOLINE HCL 0.05% NASAL SPRAY 1 SPR AY EACH ACTIVE NOSTRIL NEEDED /vinicio/ RAFAEL BravoD. Signed: 05/20/2021 11:48
--- OUTSIDE RECORDS SUMMARY | 2021-12-23 17:37 | XMS_ITS | Encounter Summary ---
:1945 Author Organization [facility] Address [address] [place] [id number] Support Name Relationship Address Phone FRANCES GANDARA Unavailable [address] [place] [address] FRANCES GANDARA Unavailable [address] [place] [address] FRANCES GANDARA Unavailable [address] [place] [address] FRANCES GANDARA Unavailable [address] [place] [address] Insurance Providers: All historical and current Section [...] MEDICARE MEDICARE PART Apr 19, PART A [id number] Whit MOJICA (WNR) (M) A 2007 50A [phone] JESSICA MEDICARE MEDICARE PART Apr 19, PART A [id number] Whit [place] (WNR) (M) A 2007 [id number] [phone] JESSICA Selected Encounter This section includes the information on record at [place] for the Encounter. Date/Time Encounter Type Encounter Description Reason Provider Source May 10, 2021 12:00 Outpatient Encounter COMMUNITY CARE AM CONSULT IHE [...] 20 appointments. The data comes from all [facility]. Appointment Date/Time Appointment Type Appointment Facili ty Name May 11, 2021 11:45 AM AMBULATORY - MEDICINE [facility] May 11, 2021 12:00 PM AMBULATORY - MEDICINE [facility] May 11, 2021 01:00 PM AMBULATORY - MEDICINE [facility] May 19, 2021 02:30 PM AMBULATORY - NONE [facility] May 19, 2021 04:00 PM AMBULATORY - MEDICINE [facility] May 20, 2021 09:00 AM AMBULATORY - NONE [facility] May 20, 2021 10:00 AM AMBULATORY - SURGERY [facility] May 24, 2021 03:30 PM AMBULATORY - NONE [facility] Jun 02, 2021 02:40 PM AMBULATORY - MEDICINE [facility] Jun 06, 2021 02:30 PM AMBULATORY - NONE [facility] Jun 09, 2021 02:00 PM AMBULATORY - SURGERY [facility] June 21, 2021 01:45 PM AMBULATORY - NONE [facility] June 22, 2021 09:30 AM AMBULATORY - NONE [facility] June 22, 2021 12:30 PM AMBULATORY - NONE [facility] June 22, 2021 01:30 PM AMBULATORY - SURGERY [facility] June 22, 2021 02:30 PM AMBULATORY - NONE [facility] June 27, 2021 12:30 PM AMBULATORY - NONE [facility] June 27, 2021 01:30 PM AMBULATORY - NONE [facility] June 28, 2021 11:00 AM AMBULATORY - NONE [facility] July 04, 2021 12:15 PM AMBULATORY - NONE [facility] Active, Pending, and Scheduled [...] the Encounter. The data comes from all [facility]. Test Date/Time Test Type Test Details Facility Name May 11, 2021 02:31 PM Pharmacy - Clinic Infusion [facility] Order Lab Results: +/- 30 days [...] Reference Range Comment Apr 28, 2021 03:12 [facility] COVID-19 AND FLU SCRN Spe cimen Type: NASOPHARYNGEAL PM PANEL (FLUVID) No comment enter ed. Ordering Provid er: CARIDAD DENNIS Report Released Date/Time: Apr 28, 2021 02:10 PM Reporting Lab: [facility] [address] [facility] [address] Performing Lab: [facility] [address] [facility] [address] COVID-19 PCR (FLUVID) Not Detected Not D etected FLU A PCR (FLUVID) Not Detected Not Dete cted FLU B PCR (FLUVID) Not Detected Not Dete cted Apr 28, 2021 01:[address] [facility] HEMOGLOBIN A1C Specim en Type: BLOOD No comment enter ed. Ordering Provid er: CARIDAD DENNIS Report Released Date/Time: Apr 25, 2021 12:00 PM Reporting Lab: [facility] [address] [facility] [address] Performing Lab: [facility] [address] [facility] [address] HEMOGLOBIN A1C 8.0 H 4.0-6.0 Apr 28, 2021 01:17 [facility] TSH W/REFLEX TO FREE Spec imen Type: PLASMA PM T4 No comment enter ed. Ordering Provid er: CARIDAD DENNIS Report Released Date/Time: Apr 25, 2021 12:00 PM Reporting Lab: [facility] [address] [facility] [address] Performing Lab: [facility] [address] [facility] [address] TSH 0.73 0.35-4.94 Apr 28, 2021 01:17 [facility] PROTHROMBIN TIME/INR Spec imen Type: PLASMA PM No comment enter ed. Ordering Provid er: CARIDAD DENNIS Report Released Date/Time: Apr 25, 2021 12:00 PM Reporting Lab: [facility] [address] [facility] [address] Performing Lab: [facility] [address] [facility] [address] .INR 1.1 0.8-1.1 .PT 13.2 H 9.4-12.5 Apr 28, 2021 01:[address] [facility] CBC Specim en Type: BLOOD No comment enter ed. Ordering Provid er: CARIDAD DENNIS Report Released Date/Time: Apr 25, 2021 12:00 PM Reporting Lab: [facility] [address] [facility] [address] Performing Lab: [facility] [address] WBC 4.06 4.0-11.0 RBC 5.41 4.6-6.2 HGB 14.8 13.5-17.9 HCT 47.0 41-54 MCV 86.9 80-100 MCH 27.4 27-33 MCHC 31.5 L 32.0-37.5 PLT 263 150-400 MPV 9.2 7.4-10.4 RDW 14.2 11.5-14.5 Apr 28, 2021 [facility] COMPREHENSIVE METABOLIC Spec imen Type: PLASMA 01:17 PM PANEL+MG No comment enter ed. Ordering Provid er: CARIDAD DENNIS Report Released Date/Time: Apr 25, 2021 12:00 PM Reporting Lab: [facility] [address] [facility] [address] Performing Lab: [facility] [address] CREATININE 0.7 0.7-1.2 UREA NITROGEN 16 8-26 [...] 11:00 AM VA-TOBACCO NEVER USED [place] [facility] Tobacco Use History This section includes a history of the smoking, or tobacco- related health factors, that were collected on or before the date of the Encounter. The data comes from the [facility] where the Encounter took place. Date/Time Smoking Status/Tobacco Use Comment [facility] July 09, 2020 02:00 PM VA-TOBACCO FORMER USER [place] [facility] July 09, 2020 02:00 PM VA-TOBACCO QUIT [address] [facility] Apr 17, 2019 02:39 PM INPT NO TOBACCO USE IN LAST [address] [facility] Feb 04, 2019 10:37 AM [place]-TO[place]ACCO NEVER USED [place] [facility] Oct 15, 2018 02:43 PM INPT NO TOBACCO USE IN LAST [address] [facility] Oct 13, 2018 11:30 PM INPT NO TOBACCO USE IN LAST [address] [facility] Sep 02, 2018 05:50 PM INPT NO TOBACCO USE IN LAST [address] [facility] Aug 12, 2018 07:28 PM INPT NO TOBACCO USE IN LAST [address] [facility] Jan 30, 2018 03:28 PM VA-TOBACCO FORMER USER [place] [facility] Jan 30, 2018 03:28 PM [place]-TOBACCO QUIT [address] [facility] May 29, 2017 04:53 PM INPT NO TOBACCO USE IN LAST [address] [facility] Apr 25, 2017 10:44 PM INPT NO TOBACCO USE IN LAST [address] [facility] Jan 01, 2017 06:40 PM INPT NO TOBACCO USE IN LAST [address] [facility] Dec 21, 2016 02:43 PM FORMER TOBACCO USER 7Y OR GRE[address] [facility] Sep 24, 2013 08:52 AM FORMER TOBACCO USER 7Y OR GRE[address] [facility] Advance Directives: All historical and current [...] from all [facility]. Date Advance Directives Provider Source May 29, 2017 CLINICAL WARNING CORNELIO FREITAS [facility] May 16, 2017 ADVANCE DIRECTIVE SERENITY BUENROSTRO [facility] May 16, 2017 ADVANCE DIRECTIVE DISCUSSION [place] [facility] May 04, 2017 CLINICAL WARNING MAGO DIAMOND [facility] May 04, 2017 CLIN[address] GAEL ROSARIO [facility] Apr 26, 2017 CLINICAL WARNING JENNIFER DE LEON [facility] Jan 01, 2017 CLINICAL WARN[address] AYDE WELLS [facility] Jun 09, 2004 AD[address] [facility] Jun 07, 2004 ADVANCE DIRECTIVE SHERYL [...] LEFT 3 VIEWS OR MORE: SEBASTIÁN ROMERO [facility] JESSICA MOJICA [id number] -[birth year] 8 M Exm Date: MAY 20, 2021@09:03 Req Phys: DEBRA KERNS Loc: [facility] VISN23 [facility] TRIAGE Img Loc: MAIN X-RAY Service: Unknown (Case [id number] COMPLETE) FOOT LEFT 3 VIEWS OR MORE ( RAD Detailed) CPT:59255 Proc Modifiers : WEIGHT BEARING Reason for Study: charcot foot Clinical History: [place] IS NOT under investigation for COVID-19 or is COVID-19 negative charcot foot Responsible provider name and phon e number to notify for critical findings if other than user placing the order and pager listed below: User placing orders pag er: [phone] LAST CREATININE 0.7 (04/28/21) Report Status: Verified Date Reported: MAY 20, 2021 Date Verified: MAY 20, 2021 Shorthand Teacher E-Sig:/ES/SEBASTIÁN ROMERO MD Report: EXAMINATION: FOOT LEFT 3 VIEWS OR MORE, 2 9:03 AM COMPARISON: None available HISTORY: Reason for Study: charcot foot [place] IS NOT under investigation for COVID-19 or is COVID-19 negative charcot foot Responsible provider name and phon e number to notify for critical findings if other than user placing the order and pager listed below: User placing orders [facility] er: [phone] LAST CREATININE 0.7 (04/28/21) Impression: 3 nonweightbearing [...] Primary Interpreting Staff: SEBASTIÁN ROMERO MD, RADIOLOGIST (Shorthand Teacher) /JRT May 20, 2021 09:03 AM FOOT RIGHT 3 VIEWS OR MORE: SEBASTIÁN ROMERO [facility] JESSICA MOJICA [id number] -[birth year] 8 M Exm Date: MAY 20, 2021@09:03 Req Phys: DEBRA KERNS Loc: [facility] TRIAGE Img Loc: MAIN X-RAY Service: Unknown (Case [id number] COMPLETE) FOOT RIGHT 3 VIEWS OR MORE (RAD Detailed) CPT:36203 Proc Modifiers : WEIGHT BEARING Reason for Study: charcot foot Clinical History: [place] IS NOT under investigation for COVID-19 or is COVID-19 negative charcot foot Responsible provider name and phon e number to notify for critical findings if other than user placing the order and pager listed below: User placing orders [facility] er: [phone] LAST CREATININE 0.7 (04/28/21) Report Status: Verified Date Reported: MAY 20, 2021 Date Verified: MAY 20, 2021 Shorthand Teacher E-Sig:/ES/SEBASTIÁN ROMERO MD Report: EXAMINATION: FOOT RIGHT 3 VIEWS OR MORE, 05/21/19 9:03 AM COMPARISON: 08/02/2020 HISTORY: Reason for Study: charcot foot IS NOT under investigation for COVID-19 or is COVID-19 negative charcot foot Responsible provider name and phon e number to notify for critical findings if other than user placing the order and pager listed below: User placing orders [facility] er: [phone] LAST CREATININE 0.7 (04/28/21) Impression: 1. 3 [...] Primary Interpreting Staff: SEBASTIÁN ROMERO MD, RADIOLOGIST (Shorthand Teacher) /JRT Apr 28, 2021 09:06 AM MYOCARDIAL PERFUSION PHARMACOLOGIC STR ESS/REST: DARIN BAKER [facility] JESSICA MOJICA [id number] -[birth year] 8 M Ex Date: APR 28, 2021@09:06 Req Phys: CARIDAD DENNIS Pat Loc: [facility] PACT SAPPHIRE 4E (Req'g Lo Img Loc: NUC MED Service: Unknown (Case [id number] COMPLETE) MYOCARDIAL PERFUSION (SPECT )-MULT(AZ Detailed) CPT:81946 Reason for Study: CAD, PAD risk stratefication prior to surgery 05/02 (Case 2145 COMPLETE) TC-99M SESTAMIBI (CARDIOLIT E), PE(NM Detailed) CPT:A9500 (Case 2146 COMPLETE) CARDIOVASCULAR STRESS TEST (AZ Detailed) CPT:33070 Clinical History: Is this patient on Observation Status? No surgery 05/02/21. please schedule prior if possi ble h/o CAD, PAD. limited ability to walk due to fo ot issues [place] IS NOT under investigation for COVID-19 or is COVID-19 negative 75 yo M with Responsible provider name and phon e number to notify for critical findings if other than user placing the order and pager listed below: User placing orders [facility] er: [phone] LAST CREATININE 0.6 L (12/15/20) Is the patient taking/taken dipyridamole/aggren ox in the last week? No Has patient taken theophylline product s in the last 3 days? No Patient has been educated not to consu me coffee, Sanka, tea or soft drinks 8 hours prior to test? Yes Report Status: Verified Date Reported: APR 28, 2021 Date Verified: APR 28, 2021 Shorthand Teacher E-Sig:/ES/DARIN BAKER MD Report: Regadenoson myocardial perfusion [...] Encounter. Date/Time Encounter Note(s) Provider Source May 10, 2021 12:00 AM NONVA CONSULT: DERRICK YBARRA [facility] LOCAL TITLE: COMMUNITY CARE CONSULT RESULT DS R OUTINE OPT STANDARD TITLE: NONVA CONSULT DATE OF NOTE: MAY 10, 2021 ENTRY DATE: MAY 23 022@14:32:40 AUTHOR: DERRICK YBARRA EXP COSIGNER: URGENCY: STATUS: COMPLETED [employer] - Scanned Document COMMUNITY CARE-DS ROUTINE [facility] APPOINTMENT INFORMATION Documentation received from non-VA provider and scanned into [employer]. /vinicio/ DERRICK PROCESS Signed: 05/23/2021 14:32
--- OUTSIDE RECORDS SUMMARY | 2021-12-23 17:39 | XMS_ITS | Encounter Summary ---
:1945 Author Organization [facility] Address [address] [place] [id number] Support Name Relationship Address Phone FRANCES GANDARA Unavailable [address] [place] [address] FRANCES GANDARA Unavailable [address] [place] [address] FRANCES GANDARA Unavailable [address] [place] [address] FRANCES GANDARA Unavailable [address] [place] [address] Insurance Providers: All historical and current Section [...] MEDICARE MEDICARE PART Apr 19, PART A [id number] Whit MOJICA (WNR) (M) A 2007 50A [phone] JESSICA MEDICARE MEDICARE PART Apr 19, PART A [id number] Whit MOJICA (WNR) (M) A 2007 [id number] [phone] JESSICA Selected Encounter This section includes the information on record at [place] for the Encounter. Date/Time Encounter Type Encounter Reason Provider Source Description May 19, 2021 Outpatient TELEPHONE PRIMARY ICD-10-CM GISELLE MARTINEZ 04:00 PM Encounter CARE M14.671 STUART Charcot's joint, right ankle and foot with Provider Comments: Charcot's joint of foot (SCT [id number]) IHE Encounter Template Text not used by [facility] Assessments - Encounter Diagnoses This section includes the primary and secondary diagnoses documented for the Encounter. Date/Time Primary/Secondary Diagnosis Name Provider Source Diagnosis May 19, 2021 PRIMARY Charcot's GISELLE MARTINEZ V A 04:00 PM joint, right [facility] ankle and foot Plan of Treatment: Future Appointments (+ 6 months) and Future Tests (+/- 45 days) The Plan of Treatment section includes future care activities for the patient from all [place] [facility] This section includes future appointments and future orders which are active, pending orscheduled.Future Appointments This section includes appointments that were scheduled to occur 6 months from the date of the Encounter, up to a maximum of 20 appointments. The data comes from all [place] treatment facilities. Appointment Date/Time Appointment Type Appointment Facili ty Name May 20, 2021 09:00 AM AMBULATORY - NONE [facility] May 20, 2021 10:00 AM AMBULATORY - SURGERY [facility] May 24, 2021 03:30 PM AMBULATORY - NONE [facility] Jun 02, 2021 02:40 PM AMBULATORY - MEDICINE [facility] Jun 06, 2021 02:30 PM AMBULATORY - NONE [facility] Jun 09, 2021 02:00 PM AMBULATORY - SURGERY [facility] June 21, 2021 01:45 PM AMBULATORY - NONE [facility] June 22, 2021 09:30 AM AMBULATORY - NONE [facility] June 22, 2021 12:30 PM AMBULATORY - NONE [facility] June 22, 2021 01:30 PM AMBULATORY - SURGERY [facility] June 22, 2021 02:30 PM AMBULATORY - NONE [facility] June 27, 2021 12:30 PM AMBULATORY - NONE [facility] June 27, 2021 01:30 PM AMBULATORY - NONE [facility] June 28, 2021 11:00 AM AMBULATORY - NONE [facility] July 04, 2021 12:15 PM AMBULATORY - NONE [facility] July 04, 2021 01:15 PM AMBULATORY - SURGERY [facility] July 06, 2021 10:15 AM AMBULATORY - NONE [facility] July 07, 2021 01:00 PM AMBULATORY - NONE [facility] July 07, 2021 02:00 PM AMBULATORY - SURGERY [facility] July 13, 2021 09:00 AM AMBULATORY - REHAB [facility]IC[facility] Active, Pending, and Scheduled Orders This section [...] data comes from all [place] treatment facilities. Test Date/Time Test Type Test Details Facility Name May 11, 2021 02:31 PM Pharmacy - Clinic Infusion [facility] Order Lab Results: +/- 30 [...] Reference Range Comment Apr 28, 2021 03:12 [facility] COVID-19 AND FLU SCRN Spe cimen Type: NASOPHARYNGEAL PM PANEL (FLUVID) No comment enter ed. Ordering Provid er: GISELLE MARTINEZ Report Released Date/Time: Apr 28, 2021 02:10 PM Reporting Lab: [facility] [address] [facility] [address] Performing Lab: [facility] [address] [facility] [address] COVID-19 PCR (FLUVID) Not Detected Not D etected FLU A PCR (FLUVID) Not Detected Not Dete cted FLU B PCR (FLUVID) Not Detected Not Dete cted Apr 28, 2021 01:17 PM [facility] HEMOGLOBIN A1C Specim en Type: BLOOD No comment enter ed. Ordering Provid er: GISELLE MARTINEZ Report Released Date/Time: Apr 25, 2021 12:00 PM Reporting Lab: [facility] [address] [facility] [address] Performing Lab: [facility] [address] [facility] [address] HEMOGLOBIN A1C 8.0 H 4.0-6.0 Apr 28, 2021 01:17 [facility] PROTHROMBIN TIME/INR Spec imen Type: PLASMA PM No comment enter ed. Ordering Provid er: GISELLE MARTINEZ Report Released Date/Time: Apr 25, 2021 12:00 PM Reporting Lab: [facility] [address] [facility] [address] Performing [facility]: [facility] [address] .INR 1.1 0.8-1.1 .PT 13.2 H 9.4-12.5 Apr 28, 2021 01:17 [facility] TSH W/REFLEX TO FREE Spec imen Type: PLASMA PM T4 No comment enter ed. Ordering Provid er: GISELLE MARTINEZ Report Released Date/Time: Apr 25, 2021 12:00 PM Reporting Lab: [facility] [address] [facility] [address] Performing Lab: [facility] [address] TSH 0.73 0.35-4.94 Apr 28, 2021 01:17 PM [facility] CBC Specim en Type: BLOOD No comment enter ed. Ordering Provid er: GISELLE MARTINEZ Report Released Date/Time: Apr 25, 2021 12:00 PM Reporting Lab: [facility] [address] [facility] [address] Performing Lab: [facility] [address] [facility] [address] WBC 4.06 4.0-11.0 RBC 5.41 4.6-6.2 HGB 14.8 13.5-17.9 HCT 47.0 41-54 MCV 86.9 80-100 MCH 27.4 27-33 MCHC 31.5 L 32.0-37.5 PLT 263 150-400 MPV 9.2 7.4-10.4 RDW 14.2 11.5-14.5 Apr 28, 2021 [facility] COMPREHENSIVE METABOLIC Spec imen Type: PLASMA 01:17 PM PANEL+MG No comment enter ed. Ordering Provid er: GISELLE MARTINEZ Report Released Date/Time: Apr 25, 2021 12:00 PM Reporting Lab: [facility] [address] [facility] [address] Performing Lab: [facility] [address] [facility] [address] CREATININE 0.7 0.7-1.2 UREA NITROGEN 16 8-26 [...] 11:00 AM [place]-TOBACCO NEVER USED [place] [facility] Tobacco Use History This section includes a history of the smoking, or tobacco- related health factors, that were collected on or before the date of the Encounter. The data comes from the [facility] where the Encounter took place. Date/Time Smoking Status/Tobacco Use Comment [facility] July 09, 2020 02:00 PM VA-TOBACCO FORMER USER [place] [facility] July 09, 2020 02:00 PM VA-TOBACCO QUIT 15 YRS OR MORE [facility] Apr 17, 2019 02:39 PM INPT NO TOBACCO USE IN LAST 30 DAYS [facility] Feb 04, 2019 10:37 AM [place]-TOBACCO NEVER USED [place] [facility] Oct 15, 2018 02:43 PM INPT NO TOBACCO USE IN LAST 30 DAYS [facility] Oct 13, 2018 11:30 PM INPT NO TOBACCO USE IN LAST 30 DAYS [facility] Sep 02, 2018 05:50 PM INPT NO TOBACCO USE IN LAST 30 DAYS [facility] Aug 12, 2018 07:28 PM INPT NO TOBACCO USE IN LAST 30 DAYS [facility] Jan 30, 2018 03:28 PM VA-TOBACCO FORMER USER [place] [facility] Jan 30, 2018 03:28 PM VA-TOBACCO QUIT 15 YRS OR MORE [facility] May 29, 2017 04:53 PM INPT NO TOBACCO USE IN LAST 30 DAYS [facility] Apr 25, 2017 10:44 PM INPT NO TOBACCO USE IN LAST 30 DAYS [facility] Jan 01, 2017 06:40 PM INPT NO TOBACCO USE IN LAST 30 DAYS [facility] Dec 21, 2016 02:43 PM FORMER TOBACCO USER 7Y OR GREATER [facility] Sep 24, 2013 08:52 AM FORMER TOBACCO USER 7Y OR GREATER [facility] Advance Directives: All historical and [...] May 29, 2017 CLINICAL WARNING CORNELIO FREITAS [facility] May 16, 2017 ADVANCE DIRECTIVE CHITRASERENITY A [place] May 16, 2017 ADVANCE DIRECTIVE DISCUSSION SERENITY BUENROSTRO [place] [facility] May 04, 2017 CLINICAL WARNING MAGO DIAMOND [facility] May 04, 2017 CLINICAL WARNING BITAGAEL PARRA [facility] Apr 26, 2017 CLINICAL WARNING JENNIFER DE LEON Whit [facility] Jan 01, 2017 CLINICAL WARNING AYDE WELLS [facility] Jun 09, 2004 ADVANCE DIRECTIVE DARYL VILLARREAL [facility] Jun 07, 2004 ADVANCE DIRECTIVE SHERYL HOLLOWAY [facility] Radiology Reports: +/- 30 days of [...] the Encounter. The data comes from all [facility] facilities. Date/Time Radiology Report Provider Source May 20, 2021 09:03 AM FOOT LEFT 3 VIEWS OR MORE: SEBASTIÁN ROMERO [facility] JESSICA MOJICA PRERNA [id number] [birth year] 8 M Exm Date: MAY 20, 2021@09:03 Req Phys: DEBRA KERNS Loc: [facility] TRIAGE Img Loc: MAIN X-RAY Service: Unknown (Case [id number] COMPLETE) FOOT LEFT 3 VIEWS OR MORE ( RAD Detailed) CPT:05017 Proc Modifiers : WEIGHT BEARING Reason for Study: charcot foot Clinical History: [place] IS NOT under investigation for COVID-19 or is COVID-19 negative charcot foot Responsible provider name and phon e number to notify for critical findings if other than user placing the order and pager listed below: User placing orders pag er: [phone] LAST CREATININE 0.7 (04/28/21) Report Status: Verified Date Reported: MAY 20, 2021 Date Verified: MAY 20, 2021 Helicopter Engineer E-Sig:/ES/SEBASTIÁN ROMERO MD Report: EXAMINATION: FOOT LEFT 3 VIEWS OR MORE, 2 9:03 AM COMPARISON: None available HISTORY: Reason for Study: charcot foot [place] IS NOT under investigation for COVID-19 or is COVID-19 negative charcot foot Responsible provider name and phon e number to notify for critical findings if other than user placing the order and pager listed below: User placing orders pag er: [phone] LAST CREATININE 0.7 (04/28/21) Impression: 3 nonweightbearing [...] Primary Interpreting Staff: SEBASTIÁN ROMERO MD, RADIOLOGIST (Helicopter Engineer) /JRT May 20, 2021 09:03 AM FOOT RIGHT 3 VIEWS OR MORE: SEBASTIÁN ROMERO [facility] JESSICA MOJICA [id number] -[birth year] 8 M Exm Date: MAY 20, 2021@09:03 Req Phys: DEBRA KERNS Loc: [facility] TRIAGE Im Loc: MAIN X-RAY Service: Unknown (Case [id number] COMPLETE) FOOT RIGHT 3 VIEWS OR MORE (RAD Detailed) CPT:08937 Proc Modifiers : WEIGHT BEARING Reason for Study: charcot foot Clinical History: [place] IS NOT under investigation for COVID-19 or is COVID-19 negative charcot foot Responsible provider name and phon e number to notify for critical findings if other than user placing the order and pager listed below: User placing orders pag er: [phone] LAST CREATININE 0.7 (04/28/21) Report Status: Verified Date Reported: MAY 20, 2021 Date Verified: MAY 20, 2021 Helicopter Engineer E-Sig:/ES/SEBASTIÁN ROMERO MD Report: EXAMINATION: FOOT RIGHT 3 VIEWS OR MORE, 05/21/19 9:03 AM COMPARISON: 08/02/2020 HISTORY: Reason for Study: charcot foot IS NOT under investigation for COVID-19 or is COVID-19 negative charcot foot Responsible provider name and phon e number to notify for critical findings if other than user placing the order and pager listed below: User placing orders pag er: [phone] LAST CREATININE 0.7 (04/28/21) Impression: 1. 3 [...] Primary Interpreting Staff: SEBASTIÁN ROMERO MD, RADIOLOGIST (Helicopter Engineer) /JRT Apr 28, 2021 09:06 AM MYOCARDIAL PERFUSION PHARMACOLOGIC STR ESS/REST: DARIN BAKER [facility] JESSICA MOJICA [id number] -[birth year] 8 M Exm Date: APR 28, 2021@09:06 Req Phys: GISELLE MARTINEZ Pat Loc: [facility] PACT SAPPHIRE 4E (Req'g Lo Img Loc: NUC MED Service: Unknown (Case [id number] COMPLETE) MYOCARDIAL PERFUSION (SPECT )-MULT(NM Detailed) CPT:77531 Reason for Study: CAD, PAD risk stratefication prior to surgery 05/02 (Case 2145 COMPLETE) TC-99M SESTAMIBI (CARDIOLIT E), PE(NM Detailed) CPT:A9500 (Case 7 COMPLETE) CARDIOVASCULAR STRESS TEST (NM Detailed) CPT:04981 Clinical History: Is this patient on Observation Status? No surgery 05/02/21. please schedule prior if possi ble h/o CAD, PAD. limited ability to walk due to fo ot issues [place] IS NOT under investigation for COVID-19 or is COVID-19 negative 75 yo M with Responsible provider name and phon e number to notify for critical findings if other than user placing the order and pager listed below: User placing orders pag er: [phone] LAST CREATININE 0.6 L (12/15/20) Is the patient taking/taken dipyridamole/aggren ox in the last week? No Has patient taken theophylline product s in the last 3 days? No Patient has been educated not to consu me coffee, Sanka, tea or soft drinks 8 hours prior to test? Yes Report Status: Verified Date Reported: APR 28, 2021 Date Verified: APR 28, 2021 Helicopter Engineer E-Sig:/ES/DARIN BAKER MD Report: Regadenoson myocardial perfusion [...] Encounter. Date/Time Encounter Note(s) Provider Source May 19, 2021 08:54 PM PACT NOTE: GISELLE MARTINEZ [facility] LOCAL TITLE: MEDICINE CLINIC PROVIDER TELEPHONE NOTE STANDARD TITLE: PACT NOTE DATE OF NOTE: MAY 19, 2021@20:54 ENTRY DATE: MAY 23, 2021@20:54:12 AUTHOR: GISELLE MARTINEZ EXP COSIGNER: URGENCY: STATUS: COMPLETED History: spoke to pt briefly about r ecommendations. reports he's aware of the difference in surgery . he's planning on seeing Dr. kerns . 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 ---- Unmodified Portions of Previous A/P ------- - Future Appointments: MAY 24, 2021@15:30 Clinic: [facility] PROS ORTH SCHILLE R 60 JUN 13, 2021@14:30 Clinic: [facility] AUD GARCIA REPAIR JUNE 22, 2021@09:30 Clinic: [facility] WRIGHT TRANSPORTATIO N JUNE 22, 2021@13:30 Clinic: [facility] NURSE CL JUNE 22, 2021@14:30 Clinic: [facility] WRIGHT TRANSPORTATIO N JUNE 27, 2021@13:30 Clinic: [facility] PROSTHETIC OR[facility] IC LAB 2 JULY 04, 2021@13:15 Clinic: [facility] EYE RESIDENT FOL/ UP SEP 07, 2021@13:00 Clinic: [facility] NURSE CL SEP 19, 2021@10:30 Clinic: [facility] UROL RTC DARY DEC 12, 2021@13:00 Clinic: [facility] NURSE CL FEB 23, 2022@08:00 Clinic: [facility] CARE-ADMIN KATHERINE CORMIER MAR 08, 2022@13:00 Clinic: [facility] P[facility] ANNUAL- Most recent vitals: - Temp: 97.8 F [36.6 C] (04/25/2021 11:00) Resp: 1 8 (04/25/2021 11:00) Pulse: 76 (04/25/2021 11:00) Pain: 5 (04/25/2021 11:00) Osat 96% (04/25/2021 11:00) Measurement DT BP 04/25/2021 11:04 146/76 04/25/2021 11:00 157/82 03/28/2021 14:03 138/79 Measurement DT WEIGHT LB(KG)[BMI] 04/25/2021 11:00 Unavailable 03/28/2021 14:03 235.2(106.68)[32*] 01/05/2021 10:29 Unavailable /vinicio/ Giselle Martinez MD Staff Physician Signed: 05/23/2021 20:57
--- OUTSIDE RECORDS SUMMARY | 2021-12-23 17:42 | XMS_ITS | Encounter Summary ---
:1945 Author Organization Department [facility] Address [address] [place] [id number] Support Name Relationship Address Phone FRANCES GANDARA Unavailable [address] [place] [address] FRANCES GANDARA Unavailable [address] [place] [address] FRANCES GANDARA Unavailable [address] [place] [address] FRANCES GANDARA Unavailable [address] [place] [address] Insurance Providers: All historical and current Section [...] MEDICARE MEDICARE PART Apr 19, PART A [id number] Whit MOJICA (WNR) (M) A 2007 50A [phone] JESSICA MEDICARE MEDICARE PART Apr 19, PART A [id number] Whit MOJICA (WNR) (M) A 2007 [id number] [phone] JESSICA Selected Encounter This section includes the information on record at [place] for the Encounter. Date/Time Encounter Type Encounter Reason Provider Source Description May 24, 2021 ORTHC/PROSTC PROSTHETICS/ORTHOT ICD-10-CM SID HARTMAN 03:30 PM MGMT SBSQ ENC ICS M14.672 EY J Charcot's joint, left ankle and foot with Provider Comments: Charcot's Joint, left Ankle and Foot IHE Encounter Template Text not used by [facility] Assessments - Encounter Diagnoses This section includes the primary and secondary diagnoses documented for the Encounter. Date/Time Primary/Secondary Diagnosis Name Provider Source Diagnosis May 25, 2021 PRIMARY Charcot's THEA HARTMAN V A 02:10 PM joint, left EY J [facility] ankle and foot Plan of Treatment: [...] Date/Time Appointment Type Appointment Facili ty Name Jun 02, 2021 02:40 PM AMBULATORY - MEDICINE [facility] Jun 06, 2021 02:30 PM AMBULATORY - NONE [facility] Jun 09, 2021 02:00 PM AMBULATORY - SURGERY [facility] June 21, 2021 01:45 PM AMBULATORY - NONE [facility] June 22, 2021 09:30 AM AMBULATORY - NONE [facility] June 22, 2021 12:30 PM AMBULATORY - NONE [facility] June 22, 2021 01:30 PM AMBULATORY - SURGERY [facility] June 22, 2021 02:30 PM AMBULATORY - NONE [facility] June 27, 2021 12:30 PM AMBULATORY - NONE [facility] June 27, 2021 01:30 PM AMBULATORY - NONE [facility] June 28, 2021 11:00 AM AMBULATORY - NONE [facility] July 04, 2021 12:15 PM AMBULATORY - NONE [facility] July 04, 2021 01:15 PM AMBULATORY - SURGERY [facility] July 06, 2021 10:15 AM AMBULATORY - NONE [facility] July 07, 2021 01:00 PM AMBULATORY - NONE [facility] July 07, 2021 02:00 PM AMBULATORY - SURGERY [facility] July 13, 2021 09:00 AM AMBULATORY - REHAB [facility]IC[facility] July 14, 2021 02:10 PM AMBULATORY - NONE [facility] Jul 21, 2021 09:45 AM AMBULATORY - NONE [facility] Jul 26, 2021 10:45 AM AMBULATORY - NONE MAY[facility] [...] 2021 02:31 PM Pharmacy - Clinic Infusion [facility] Order Lab Results: +/- 30 days of the encounter This section includes the Chemistry and Hematology Lab Results on record with [place] for the patient. Radiology Reports and Pathology Reports are provided separately, in subsequent sections.Lab Results This section contains the Chemistry/Hematology Results that were resulted 30 days before or 30 daysafter the date of the Encounter. Date/Time Source Result Type Result - Unit Interpretation Reference Range Comment Apr 28, 2021 03:12 [facility] COVID-19 AND FLU SCRN Spe cimen Type: NASOPHARYNGEAL PM PANEL (FLUVID) No comment enter ed. Ordering Provid er: CARIDAD DENNIS Report Released Date/Time: Apr 28, 2021 02:10 PM Reporting Lab: [facility] [address] [facility] [address] Performing Lab: [facility] [address] [facility] [address] COVID-19 PCR (FLUVID) Not Detected Not D etected FLU A PCR (FLUVID) Not Detected Not Dete cted FLU B PCR (FLUVID) Not Detected Not Dete cted Apr 28, 2021 01:17 PM [facility] HEMOGLOBIN A1C Specim en Type: BLOOD No comment enter ed. Ordering Provid er: CARIDAD DENNIS Report Released Date/Time: Apr 25, 2021 12:00 PM Reporting Lab: [facility] [address] [facility] [address] Performing Lab: [facility] [address] [facility] [address] HEMOGLOBIN A1C 8.0 H 4.0-6.0 Apr 28, 2021 01:17 [facility] PROTHROMBIN TIME/INR Spec imen Type: PLASMA PM No comment enter ed. Ordering Provid er: CARIDAD DENNIS Report Released Date/Time: Apr 25, 2021 12:00 PM Reporting Lab: [facility] [address] [facility] [address] Performing Lab: [facility] [address] [facility] [address] .INR 1.1 0.8-1.1 .PT 13.2 H 9.4-12.5 Apr 28, 2021 01:17 PM [facility] CBC Specim en Type: BLOOD No comment enter ed. Ordering Provid er: CARIDAD DENNIS Report Released Date/Time: Apr 25, 2021 12:00 PM Reporting Lab: [facility] [address] [facility] [address] Performing Lab: [facility] [address] [facility] [address] WBC 4.06 4.0-11.0 RBC 5.41 4.6-6.2 HGB 14.8 13.5-17.9 HCT 47.0 41-54 MCV 86.9 80-100 MCH 27.4 27-33 MCHC 31.5 L 32.0-37.5 PLT 263 150-400 MPV 9.2 7.4-10.4 RDW 14.2 11.5-14.5 Apr 28, 2021 01:17 [facility] TSH W/REFLEX TO FREE Spec imen Type: PLASMA PM T4 No comment enter ed. Ordering Provid er: CARIDAD DENNIS Report Released Date/Time: Apr 25, 2021 12:00 PM Reporting Lab: [facility] [address] [facility] [address] Performing Lab: [facility] [address] [facility] [address] TSH 0.73 0.35-4.94 Apr 28, 2021 [facility] COMPREHENSIVE METABOLIC Spec imen Type: PLASMA 01:17 PM PANEL+MG No comment enter ed. Ordering Provid er: CARIDAD DENNIS Report Released Date/Time: Apr 25, 2021 12:00 PM Reporting Lab: [facility] [address] [facility] [address] Performing Lab : [facility] [address] [facility] [address] CREATININE 0.7 0.7-1.2 UREA NITROGEN 16 8-26 [...] smoking and tobacco-related health factors from the [facility] where the Encounter took place.Current Smoking Status This section includes the most current smoking, or tobacco-related health factor, from the [place] facility where the Encounter took place. Date/Time Current Smoking Status Comment Facility Apr 25, 2021 11:00 AM VA-TOBACCO NEVER USED [place] [facility] Tobacco Use History This section includes a history of the smoking, or tobacco- related health factors, that were collected on or before the date of the Encounter. The data comes from the [place] facility where the Encounter took place. Date/Time Smoking Status/Tobacco Use Comment [facility] July 09, 2020 02:00 PM VA-TOBACCO FORMER USER [place] [facility] July 09, 2020 02:00 PM VA-TOBACCO QUIT 15 YRS OR MORE [facility] Apr 17, 2019 02:39 PM INPT NO TOBACCO USE IN LAST 30 DAYS [facility] Feb 04, 2019 10:37 AM [place]-TO[place]ACCO NEVER USED [place] [facility] Oct 15, 2018 02:43 [...] 03:28 PM VA-TOBACCO FORMER USER [place] [facility] Jan 30, 2018 03:28 PM [...] The data comes from all [facility]. Date Advance Directives Provider Source May 29, 2017 CLINICAL WARNING CORNELIO FREITAS [facility] May 16, 2017 ADVANCE DIRECTIVE CHITRASERENITY A [facility] May 16, 2017 ADVANCE DIRECTIVE DISCUSSION [place]ITY [place] [facility] May 04, 2017 CLINICAL WARNING ALEXISMAGO LOTT Shashank [facility] A [facility] May 04, 2017 CLINICAL WARNING ABRAHAMGAEL [facility] Apr 26, 2017 CLINICAL WARNING MOISESJENNIFER P [facility] Jan 01, 2017 CLINICAL [...] LEFT 3 VIEWS OR MORE: SEBASTIÁN ROMERO [facility] JESSICA MOJICA [id number] [birth year] 8 M Exm Date: MAY 20, 2021@09:03 Req Phys: DEBRA KERNS Loc: [facility] VISN23 [facility] TRIAGE Img Loc: MAIN X-RAY Service: Unknown (Case [id number] COMPLETE) FOOT LEFT 3 VIEWS OR MORE ( RAD Detailed) CPT:08815 Proc Modifiers : WEIGHT BEARING Reason for Study: charcot foot Clinical History: IS NOT under investigation for COVID-19 or is COVID-19 negative charcot foot Responsible provider name and phon e number to notify for critical findings if other than user placing the order and pager listed below: User placing orders pag er: [phone] LAST CREATININE 0.7 (04/28/21) Report Status: Verified Date Reported: MAY 20, 2021 Date Verified: MAY 20, 2021 Technician'S Helper E-Sig:/ES/SEBASTIÁN ROMERO MD Report: EXAMINATION: FOOT LEFT 3 VIEWS OR MORE, 2 9:03 AM COMPARISON: None available HISTORY: Reason for Study: charcot foot Marks IS NOT under investigation for COVID-19 or is COVID-19 negative charcot foot Responsible provider name and phon e number to notify for critical findings if other than user placing the order and pager listed below: User placing orders pag er: [phone] LAST CREATININE 0.7 (04/28/21) Impression: 3 nonweightbearing [...] Primary Interpreting Staff: SEBASTIÁN ROMERO MD, RADIOLOGIST (Technician'S Helper) /JRT May 20, 2021 09:03 AM FOOT RIGHT 3 VIEWS OR MORE: SEBASTIÁN ROMERO [facility] JESSICA MOJICA [id number] -[birth year] 8 M Exm Date: MAY 20, 2021@09:03 Req Phys: DEBRA KERNS Loc: [facility] VISN23 [facility] TRIAGE Img Loc: MAIN X-RAY Service: Unknown (Case [id number] COMPLETE) FOOT RIGHT 3 VIEWS OR MORE (RAD Detailed) CPT:17271 Proc Modifiers : WEIGHT BEARING Reason for Study: charcot foot Clinical History: IS NOT under investigation for COVID-19 or is COVID-19 negative charcot foot Responsible provider name and phon e number to notify for critical findings if other than user placing the order and pager listed below: User placing orders pag er: [phone] LAST CREATININE 0.7 (04/28/21) Report Status: Verified Date Reported: MAY 20, 2021 Date Verified: MAY 20, 2021 Technician'S Helper E-Sig:/ES/SEBASTIÁN ROMERO MD Report: EXAMINATION: FOOT RIGHT 3 VIEWS OR MORE, 05/21/19 9:03 AM COMPARISON: 08/02/2020 HISTORY: Reason for Study: charcot foot IS NOT under investigation for COVID-19 or is COVID-19 negative charcot foot Responsible provider name and phon e number to notify for critical findings if other than user placing the order and pager listed below: User placing orders pag er: [phone] LAST CREATININE 0.7 (04/28/21) Impression: 1. 3 [...] Primary Interpreting Staff: SEBASTIÁN ROMERO MD, RADIOLOGIST (Technician'S Helper) /JRT Apr 28, 2021 09:06 AM MYOCARDIAL PERFUSION PHARMACOLOGIC STR ESS/REST: DARIN BAKER [facility] JESSICA MOJICA [id number] -[birth year] 8 M Exm Date: APR 28, 2021@09:06 Req Phys: CARIDAD DENNIS Pat Loc: [facility] PACT SAPPHIRE 4E (Req'g Lo Img Loc: NUC MED Service: Unknown (Case [id number] COMPLETE) MYOCARDIAL PERFUSION (SPECT )-MULT(NM Detailed) CPT:49168 Reason for Study: CAD, PAD risk stratefication prior to surgery 05/02 (Case 2145 COMPLETE) TC-99M SESTAMIBI (CARDIOLIT E), PE(NM Detailed) CPT:A9500 (Case 7 COMPLETE) CARDIOVASCULAR STRESS TEST (NM Detailed) CPT:22928 Clinical History: Is this patient on Observation [...] and pager listed below: User placing orders [facility] er: [phone] LAST CREATININE 0.6 L (12/15/20) Is the patient taking/taken dipyridamole/aggren ox in the last week? No Has patient taken theophylline product s in the last 3 days? No Patient has been educated not to consu me coffee, Sanka, tea or soft drinks 8 hours prior to test? Yes Report Status: Verified Date Reported: APR 28, 2021 Date Verified: APR 28, 2021 Technician'S Helper E-Sig:/ES/DARIN BAKER MD Report: Regadenoson myocardial perfusion [...] Encounter. Date/Time Encounter Note(s) Provider Source May 25, 2021 02:03 PM ORTHOTICS PROSTHETICS CONSULT: SOILA HARTMAN [facility] LOCAL TITLE: PROSTHETICS CONSULT STANDARD TITLE: ORTHOTICS PROSTHETICS CONSULT DATE OF NOTE: MAY 25, 2021@14:03 ENTRY DATE: MAY 25, 2021@14:03:57 AUTHOR: CLAUDE HARTMAN EXP COSIGNER: URGENCY: STATUS: COMPLETED Custom Made AFO, [place] Boot Provisional Diagnosis: Charcot's Joint, left Ank le and Foot(ICD-10-CM M14.672) Side: L Patient was seen in the prosthetics department f or eval and casting of L [place] Boot. Pt states that he trie s to walk as little as possible but that he doesn't feel that he's able to use t he wheelchair as his primary mode of ambulation due to frequencey of MD appts in the community. Disc ussed wound healing considerations in regards to ambulation and heal ing following surgery that he has planned for [facility] 06/13. Patient's shoes and socks we re doffed and feet and ankles evaluated. Strength is normal B/L. Patient's ROM is limited to zero deg miles of dorsiflexion. With hindfoot correction patient cannot be corrected to neutral. Wound near the apex of his rockerbottom foot, near the lateral borde r on plantar surface. Patient would benefit from L [place] Boot in order to limit further derangement and injury, and allow for near normal gait mechanics . EDUCATION: Education was provided to patient dur ing this encounter. Patient indicated readiness to learn about educational i nformation re: the following topics: donning/doffing, wash/care instructions, how to report a concern. Additional education training is not indicated. Patient indicates readiness to learn, verbalizes understanding, agreement and satisfaction with the treatment plan. Patient de nies further questions. Patient will be scheduled for fitting when fabri cation completed ~7-10 days. To be fabricated in house: L1960 x 1 Solid Ankle AFO /es/ Claude Hartman Neuropsychology Service Director General Freight Agent Signed: 05/25/2021 14:10
--- OUTSIDE RECORDS SUMMARY | 2021-12-23 17:44 | XMS_ITS | Encounter Summary ---
:1945 Author Organization [facility] Address [address] [place] [address] Support Name Relationship Address Phone FRANCES GANDARA Unavailable [address] [place] [address] FRANCES GANDARA Unavailable [address] [place] [address] FRANCES GANDARA Unavailable [address] [place] [address] FRANCES GANDARA Unavailable [address] [place] [address] Insurance Providers: All historical and current Section [...] MEDICARE MEDICARE PART Apr 19, PART A [id number] Whit [place] (WNR) (M) A 2007 50A [phone] JESSICA MEDICARE MEDICARE PART Apr 19, PART A [id number] Whit [place] (WNR) (M) A 2007 [id number] [phone] JESSICA Selected Encounter This section includes the information on record at [place] for the Encounter. Date/Time Encounter Type Encounter Description Reason Provider Source May 26, 2021 12:50 Outpatient Encounter COMMUNITY CARE PM CONSULT IHE Encounter Template Text not used by [place] Plan of Treatment: Future Appointments (+ 6 [...] 20 appointments. The data comes from all [facility]. Appointment Date/Time Appointment Type Appointment Facili ty Name Jun 02, 2021 02:40 PM AMBULATORY - MEDICINE [facility] CS Jun 06, 2021 02:30 PM AMBULATORY - NONE [facility] Jun 09, 2021 02:00 PM AMBULATORY - SURGERY [facility] June 21, 2021 01:45 PM AMBULATORY - NONE [facility] June 22, 2021 09:30 AM AMBULATORY - NONE [facility] June 22, 2021 12:30 PM AMBULATORY - NONE [facility] June 22, 2021 01:30 PM AMBULATORY - SURGERY [facility] June 22, 2021 02:30 PM AMBULATORY [...] 04, 2021 01:15 PM AMBULATORY - SURGERY [facility] July 06, 2021 10:15 AM AMBULATORY - NONE [facility] July 07, 2021 01:00 PM AMBULATORY - NONE [facility] July 07, 2021 02:00 PM AMBULATORY - SURGERY [facility] July 13, 2021 09:00 AM AMBULATORY - REHAB MEDICINE [facility] July 14, 2021 02:10 PM AMBULATORY - NONE [facility] Jul 21, 2021 09:45 AM AMBULATORY - NONE [facility] Jul 26, 2021 10:45 AM [facility] the Encounter. The data comes from all [facility]. Test Date/Time Test Type Test Details Facility Name May 11, 2021 02:31 PM Pharmacy - Clinic Infusion [facility] Order Lab Results: +/- 30 days of the encounter This section includes the Chemistry and Hematology Lab Results on record with [place] for the patient. Radiology Reports and Pathology [...] Apr 28, 2021 02:10 PM Reporting Lab: [facility] [address] [facility] [id number] Performing Lab: [facility] [address] COVID-19 PCR (FLUVID) Not Detected Not D [...] [facility] [address] [facility] [address] Performing Lab: [facility] [address] [facility] [address] HEMOGLOBIN A1C 8.0 H 4.0-6.0 Apr 28, 2021 01:17 PM [facility] CBC Specim en Type: BLOOD No comment enter ed. Ordering Provid er: GISELLE MARTINEZ Report Released Date/Time: Apr 25, 2021 12:00 PM Reporting Lab: [facility] [address] [facility] [address] Performing Lab: [facility] [address] [facility] [address] WBC 4.06 4.0-11.0 RBC 5.41 4.6-6.2 HGB [...] [facility]PITAL [facility] [address] [facility] [address] Performing Lab: [facility] [address] [facility] [address] TSH 0.73 0.35-4.94 Apr 28, 2021 01:17 [facility] PROTHROMBIN TIME/INR Spec imen Type: PLASMA PM No comment enter ed. Ordering Provid er: GISELLE MARTINEZ Report Released Date/Time: Apr 25, 2021 12:00 PM Reporting Lab: [facility] [address] [facility] [address] Performing Lab: [facility] [address] [facility] [address] .INR 1.1 0.8-1.1 .PT 13.2 H 9.4-12.5 Apr 28, 2021 [facility] COMPREHENSIVE METABOLIC Spec imen Type: PLASMA 01:17 PM PANEL+MG No comment enter ed. Ordering Provid er: GISELLE MARTINEZ Report Released Date/Time: Apr 25, 2021 12:00 PM Reporting Lab: [facility] [address] [facility] [address] Performing Lab: [facility] [address] [facility] [address] CREATININE 0.7 0.7-1.2 UREA NITROGEN 16 8-26 [...] smoking, or tobacco-related health factor, from the [place] facility where the Encounter took place. Date/Time [...] took place. Date/Time Smoking Status/Tobacco Use Comment [facility] July 09, 2020 02:00 PM VA-TOBACCO FORMER USER [facility] July 09, 2020 02:00 PM VA-TOBACCO QUIT 15 YRS OR MORE [facility] Apr 17, 2019 02:39 PM INPT NO TOBACCO USE IN LAST 30 DAYS [facility] Feb 04, 2019 10:37 AM [place]-TO[place] USED [place] [facility] Oct [...] 2018 03:28 PM VA-TOBACCO FORMER USER [facility] Jan 30, 2018 03:28 PM [place]-TOBACCO QUIT 15 YRS OR MORE [facility] [...] ALL of a patient's completed or amended [place] Advance and Rescinded Directives. The entries below indicate that a directive exists for the patient, but an actual copy is not included with this document. The data comes from all [facility]. Date Advance Directives Provider Source May 29, 2017 CLINICAL WARNING CORNELIO FREITAS [facility] May 16, 2017 ADVANCE DIRECTIVE SERENITY BUENROSTRO [facility] May 16, 2017 ADVANCE DIRECTIVE DISCUSSION [facility] [place] [place] [facility] May 04, 2017 CLINICAL WARNING MAGO DIAMOND [facility] May 04, 2017 CLINICAL WARNING GAEL ROSARIO [facility] Apr 26, 2017 CLINICAL WARNING JENNIFER DE LEON [facility] Jan 01, 2017 CLINICAL WARNING AYDE WELLS [facility] Jun 09, 2004 ADVANCE DIRECTIVE DARYL VILLARREAL Sebastian [facility] Jun 07, 2004 ADVANCE DIRECTIVE SHERYL HOLLOWAY [facility] Radiology Reports: +/- 30 days of [...] the Encounter. The data comes from all [place] treatment facilities. Date/Time Radiology Report Provider Source May 20, 2021 09:03 AM FOOT LEFT 3 VIEWS OR MORE: SEBASTIÁN ROMERO [facility] JESSICA MOJICA [id number] -[birth year] 8 M Exm Date: MAY 20, 2021@09:03 Req Phys: DEBRA KERNS Loc: [facility] VISN23 [facility] TRIAGE Img Loc: MAIN X-RAY Service: Unknown (Case [id number] COMPLETE) FOOT LEFT 3 VIEWS OR MORE ( RAD Detailed) CPT:59548 Proc Modifiers : WEIGHT BEARING Reason for Study: charcot foot Clinical History: IS NOT under investigation for COVID-19 or is COVID-19 negative charcot foot Responsible provider name and phon e number to notify for critical findings if other than user placing the order and pager listed below: User placing orders pag er: [phone] LAST CREATININE 0.7 (04/28/21) Report Status: Verified Date Reported: MAY 20, 2021 Date Verified: MAY 20, 2021 Retail Assistant Store Manager E-Sig:/ES/SEBASTIÁN ROMERO MD Report: EXAMINATION: FOOT LEFT 3 VIEWS OR MORE, 2 9:03 AM COMPARISON: None available HISTORY: Reason for Study: charcot foot IS NOT under investigation for COVID-19 or is COVID-19 negative charcot foot Responsible provider name and phon e number to notify for critical findings if other than user placing the order and pager listed below: User placing orders [facility] er: [phone] LAST CREATININE 0.7 (04/28/21) Impression: 3 nonweightbearing [...] Primary Interpreting Staff: SEBASTIÁN ROMERO MD, RADIOLOGIST (Retail Assistant Store Manager) /JRT May 20, 2021 09:03 AM FOOT RIGHT 3 VIEWS OR MORE: SEBASTIÁN ROMERO [facility] JESSICA MOJICA [id number] -[birth year] 8 M Exm Date: MAY 20, 2021@09:03 Req Phys: DEBRA KERNS Loc: [facility] TRI[facility] Img Loc: MAIN X-RAY Service: Unknown (Case [id number] COMPLETE) FOOT RIGHT 3 VIEWS OR MORE (RAD Detailed) CPT:16773 Proc Modifiers : WEIGHT BEARING Reason for Study: charcot foot Clinical History: [place] IS NOT under investigation for COVID-19 or is COVID-19 negative charcot foot Responsible provider name and phon e number to notify for critical findings if other than user placing the order and pager listed below: User placing orders pag er: [phone] LAST CREATININE 0.7 (04/28/21) Report Status: Verified Date Reported: MAY 20, 2021 Date Verified: MAY 20, 2021 Retail Assistant Store Manager E-Sig:/ES/SEBASTIÁN ROMERO MD Report: EXAMINATION: FOOT RIGHT 3 VIEWS OR MORE, 05/21/19 9:03 AM COMPARISON: 08/02/2020 HISTORY: Reason for Study: charcot foot IS NOT under investigation for COVID-19 or is COVID-19 negative charcot foot Responsible provider name and phon e number to notify for critical findings if other than user placing the order and pager listed below: User placing orders pag er: [phone] LAST CREATININE 0.7 (04/28/21) Impression: 1. 3 [...] joint, not significantly changed. Primary Interpreting Staff: SEABSTIÁN ROMERO MD, RADIOLOGIST (Retail Assistant Store Manager) /JRT Apr 28, 2021 09:06 AM MYOCARDIAL PERFUSION PHARMACOLOGIC STR ESS/REST: DARIN BAKER [facility] JESSICA MOJICA [id number] -[birth year] 8 M Ex Date: APR 28, 2021@09:06 Req Phys: GISELLE MARTINEZ Pat Loc: [facility] PACT SAPPHIRE 4E (Req'g Lo Img Loc: NUC MED Service: Unknown (Case [id number] COMPLETE) MYOCARDIAL PERFUSION (SPECT )-MULT(UT Detailed) CPT:24006 Reason for Study: CAD, PAD risk stratefication prior to surgery 05/02 (Case 2145 COMPLETE) TC-99M SESTAMIBI (CARDIOLIT E), PE(NM Detailed) CPT:A9500 (Case [id number] COMPLETE) CARDIOVASCULAR STRESS TEST (UT Detailed) CPT:88464 Clinical History: Is this patient on Observation [...] and pager listed below: User placing orders [facility] er: [phone] LAST CREATININE 0.6 L (12/15/20) Is the patient taking/taken dipyridamole/aggren ox in the last week? No Has patient taken theophylline product s in the last 3 days? No Patient has been educated not to consu me coffee, Sanka, tea or soft drinks 8 hours prior to test? Yes Report Status: Verified Date Reported: APR 28, 2021 Date Verified: APR 28, 2021 Retail Assistant Store Manager E-Sig:/ES/DARIN BAKER MD Report: Regadenoson myocardial [...] Encounter. Date/Time Encounter Note(s) Provider Source May 26, 2021 12:50 PM NONVA NOTE: ALEX LEE BRE REBOLLEDO [facility] LOCAL TITLE: COMMUNITY CARE-CARE COORDINATION P ADILENE NOTE STANDARD TITLE: NONVA NOTE DATE OF NOTE: MAY 26, 2021@12:50 ENTRY DATE: MAY 26, 2021@12:51:06 AUTHOR: ALEX LEE EXP COSIGNER: URGENCY: STATUS: COMPLETED COMMUNITY CARE-CARE COORDINATION PLAN NOTE Has ADDENDA Ianina in [place] called to say they need auth orization for to have right foot repair for June 13. Thank you. /es/ ALEX LEE ADVANCED MSA Signed: 05/26/2021 12:54 Receipt Acknowledged By: 05/26/2021 17:11 /vinicio/ Giselle Martinez MD Staff Physician 05/26/2021 ADDENDUM STATUS: COMPLETED clearance letter done and placed in MSA box richard combs /vinicio/ Giselle Martinez MD Staff Physician Signed: 05/26/2021 17:30 Receipt Acknowledged By: 05/31/2021 16:55 /es/ KAYLAH KO ADVANCED MSA 06/08/2021 ADDENDUM STATUS: COMPLETED Alix PH: [phone] from [facility] called looking for notes for the [facility] Pre-Op physical that he had done at the [place]. Please fax the notes today FX: [phone] stat ing the will have surgery on 06-14-2019 and the clinic is closed to hanska. Thank you /es/ TITO LEMUS ADVANCED MOTORS AND CONTROLS TESTER Signed: 06/08/2021 13:29 Receipt Acknowledged By: 06/08/2021 15:22 /vinicio/ SHERYL ANDRADE RN REGISTERED NURSE for RAINER ALLEN * AWAITING SIGNATURE * GISELLE MARTINEZ 06/08/2021 ADDENDUM STATUS: COMPLETED Called and spoke w/Alix from [facility]. She reports the clinic found the fax from 05/26. /vinicio/ SHERYL ANDRADE RN REGISTERED NURSE Signed: 06/08/2021 15:25
--- OUTSIDE RECORDS SUMMARY | 2021-12-23 17:48 | XMS_ITS | Encounter Summary ---
:1945 Author Organization [facility] Address [address] [place] [address] Support Name Relationship Address Phone FRANCES GANDARA Unavailable [address] [place] [address] FRANCES GANDARA Unavailable [address] [place] [address] FRANCES GANDARA Unavailable [address] [place] [address] FRANCES GANDARA Unavailable [address] [place] [address] Insurance Providers: All historical and current Section [...] MEDICARE MEDICARE PART Apr 19, PART A [id number] Whit [place] (WNR) (M) A 2007 50A [phone] JESSICA MEDICARE MEDICARE PART Apr 19, PART A [id number] 800 Whit [place] (WNR) (M) A 2007 [id number] [phone] JESSICA Selected Encounter This section includes the information on record at [place] for the Encounter. Date/Time Encounter Type Encounter Reason Provider Source Description Jun 02, 2021 ADM SARSCV2 GENERAL INTERNAL ICD-10-CM Z23 CAITLYN 02:40 PM 30MCG TRS-SUCR MEDICINE Encounter for IE JADIEL B immunization with Provider Comments: Encounter for Immunization IHE Encounter Template Text not used by [facility] Assessments - Encounter Diagnoses This section includes the primary and secondary diagnoses documented for the Encounter. Date/Time Primary/Secondary Diagnosis Name Provider Source Diagnosis Jun 02, 2021 PRIMARY Encounter for ERICK BRADY [place] [facility] [place] 01:29 PM immunization IE [facility] Plan of Treatment: Future Appointments (+ 6 months) and Future Tests (+/- 45 days) The Plan of Treatment section includes future care activities for the patient from all [place] treatmentfacilities. This section includes future appointments and future orders which are active, pending orscheduled.Future Appointments This section includes appointments that were scheduled to occur 6 months from the date of the Encounter, up to a maximum of 20 appointments. The data comes from all [place] treatment facilities. Appointment Date/Time Appointment Type Appointment Facili ty Name Jun 06, 2021 02:30 PM AMBULATORY - [...] 11:00 AM AMBULATORY - NONE [facility] July 04, 2021 12:15 PM AMBULATORY - NONE [facility] July 04, 2021 01:15 PM AMBULATORY - SURGERY [facility] July 06, 2021 10:15 AM AMBULATORY - NONE [facility] July 07, 2021 01:00 PM AMBULATORY - NONE [facility] July 07, 2021 02:00 PM AMBULATORY - SURGERY [facility] S July 13, 2021 09:00 AM AMBULATORY - REHAB MEDICINE [facility] July 14, 2021 02:10 PM AMBULATORY - NONE [facility] Jul 21, 2021 09:45 AM AMBULATORY - NONE [facility] Jul 26, 2021 10:45 AM AMBULATORY - NONE [facility] Jul 29, 2021 11:30 AM AMBULATORY - NONE [facility] Active, [...] the Encounter. The data comes from all [place] treatment facilities. Test Date/Time Test Type Test Details Facility Name May 11, 2021 02:31 PM Pharmacy - Clinic Infusion [facility] Order Immunizations: All administered on the encounter date This section contains immunizations associated to the Encounter. Immunization Series Date Issued Reaction Comments COVID-19 (PFIZER), MRNA, LNP-S, 4 Jun 02, 2021 PFR; [id number]; 08/18/2021 PF, 30 MCG/0.3 ML DOSE, SAIRA-SUCROSE (AGES 12+ YEARS) Social History: Smoking Status (Most current) and Tobacco Use (All prior to encounter date) This section includes the most current, and the historical, smoking and tobacco-related health factors from the [place] facility where the Encounter took place.Current Smoking Status This section includes the most current smoking, or tobacco-related health factor, from the [place] facility where the Encounter took place. Date/Time Current Smoking Status Comment Facility Apr 25, 2021 11:00 AM [place] Use History This section includes a history of the smoking, or tobacco- related health factors, that were collected on or before the date of the Encounter. The data comes from the [place] facility where the Encounter took place. Date/Time Smoking Status/Tobacco Use Comment [facility] July 09, 2020 02:00 PM VA-TOBACCO FORMER USER [facility] July 09, 2020 02:00 PM VA-TOBACCO QUIT 15 YRS OR MORE [facility] Apr 17, 2019 02:39 PM INPT NO TOBACCO USE IN LAST 30 DAYS [facility] Feb 04, 2019 10:37 AM VA-TOBACCO NEVER USED [place] [facility] Oct 15, 2018 02:43 PM [...] 2018 03:28 PM VA-TOBACCO FORMER USER [facility] Jan 30, 2018 [...] ALL of a patient's completed or amended [place] Advance and Rescinded Directives. The entries below indicate that a directive exists for the patient, but an actual copy is not included with this document. The data comes from all [facility]. Date Advance Directives Provider Source May 29, 2017 CLINICAL WARNING CORNELIO FREITAS [facility] May 16, 2017 ADVANCE DIRECTIVE SERENITY BUENROSTRO [facility] May 16, 2017 ADVANCE DIRECTIVE DISCUSSION [place] [facility] May 04, 2017 CLINICAL WARNING MAGO DIAMOND [facility] May 04, 2017 CLINICAL WARNING GAEL ROSARIO [facility] Apr 26, 2017 CLINICAL WARNING MOISESJENNIFER P [...] the Encounter. The data comes from all [place] treatment facilities. Date/Time Radiology Report Provider Source May 20, 2021 09:03 AM FOOT RIGHT 3 VIEWS OR MORE: SEBASTIÁN ROMERO [facility] JESSICA MOJICA [id number] -[birth year] 8 M Exm Date: MAY 20, 2021@09:03 Req Phys: DEBRA KERNS Loc: [facility] TRIAGE Img Loc: MAIN X-RAY Service: Unknown (Case [id number] COMPLETE) FOOT RIGHT 3 VIEWS OR MORE (RAD Detailed) CPT:29468 Proc Modifiers : WEIGHT BEARING Reason for Study: charcot foot Clinical History: [place] IS NOT under investigation for COVID-19 or is COVID-19 negative charcot foot Responsible provider name and phon e number to notify for critical findings if other than user placing the order and pager listed below: User placing orders pag er: [phone] LAST CREATININE 0.7 (04/28/21) Report Status: Verified Date Reported: MAY 20, 2021 Date Verified: MAY 20, 2021 Home Health Care Social Worker E-Sig:/ES/SEBASTIÁN ROMERO MD Report: EXAMINATION: FOOT RIGHT 3 VIEWS OR MORE, 05/21/19 9:03 AM COMPARISON: 08/02/2020 HISTORY: Reason for Study: charcot foot IS NOT under investigation for COVID-19 or is COVID-19 negative charcot foot Responsible provider name and phon e number to notify for critical findings if other than user placing the order and pager listed below: User placing orders pag er: [phone] LAST CREATININE 0.7 (04/28/21) Impression: 1. 3 [...] Primary Interpreting Staff: SEBASTIÁN ROMERO MD, RADIOLOGIST (Home Health Care Social Worker) /JRT May 20, 2021 09:03 AM FOOT LEFT 3 VIEWS OR MORE: SEBASTIÁN ROMERO [facility] JESSICA MOJICA [id number] -[birth year] 8 M Exm Date: MAY 20, 2021@09:03 Req Phys: DEBRA KERNS Pat Loc: [facility] TRI[facility] Img Loc: MAIN X-RAY Service: Unknown (Case [id number] COMPLETE) FOOT LEFT 3 VIEWS OR MORE ( RAD Detailed) CPT:55960 Proc Modifiers : WEIGHT BEARING Reason for Study: charcot foot Clinical History: [place] IS NOT under investigation for COVID-19 or is COVID-19 negative charcot foot Responsible provider name and phon e number to notify for critical findings if other than user placing the order and pager listed below: User placing orders pag er: [phone] LAST CREATININE 0.7 (04/28/21) Report Status: Verified Date Reported: MAY 20, 2021 Date Verified: MAY 20, 2021 Home Health Care Social Worker E-Sig:/ES/SEBASTIÁN ROMERO MD Report: EXAMINATION: FOOT LEFT 3 VIEWS OR MORE, 2 9:03 AM COMPARISON: None available HISTORY: Reason for Study: charcot foot [place] IS NOT under investigation for COVID-19 or is COVID-19 negative charcot foot Responsible provider name and phon e number to notify for critical findings if other than user placing the order and pager listed below: User placing orders pag er: [phone] LAST CREATININE 0.7 (04/28/21) Impression: 3 nonweightbearing [...] Primary Interpreting Staff: SEBASTIÁN ROMERO MD, RADIOLOGIST (Home Health Care Social Worker) /JRT Encounter Notes: All associated encounter notes This section contains the clinical notes associated to the Encounter. Date/Time Encounter Note(s) Provider Source Jun 02, 2021 01:27 PM NURSING IMMUNIZATION NOTE: CLAY BRADY [facility] LOCAL TITLE: VAAES OUTPATIENT COVID VACCINE ADM INISTRATION STANDARD TITLE: NURSING IMMUNIZATION NOTE DATE OF NOTE: JUN 02, 2021@13:27 ENTRY DATE: JUN 02, 2021@13:27:56 AUTHOR: CLAY BRADY EXP COSIGNER: URGENCY: STATUS: COMPLETED The patient was given the VIS for this vaccine w [facility] lists the benefits and side effects of the vaccine and which reviews th e risks of the vaccine. The fact sheet was reviewed with the patient and they were given an opportunity to ask questions. The patient denied any pr ior severe reaction to this vaccine or its components or a severe allergic reaction suc h as anaphylaxis to any vaccine or to any injectable therapy. The patien t gave verbal consent to receive the vaccine. Booster Dose: The patient received Stylechi COVID-19 Vaccine 0. 3 ml IM. Series: Series 4 MVX (Manuf); Lot#; Exp Date: PFR; [id number]; 08/18 Administration Anatomic site: Left Deltoid Vaccine administered without complications. The patient was advised to remain in the facility for 15 minutes p ost vaccination. The patient was given a completed COVID-19 vaccination record card, a copy of the [place] Side Effects and Adverse Events Reporting Fact Sheet and ins tructed on how to report any adverse reactions. /vinicio/ CLAY BRADY RN Signed: 06/02/2021 13:29
--- OUTSIDE RECORDS SUMMARY | 2021-12-23 17:51 | XMS_ITS | Encounter Summary ---
:1945 Author Organization [facility] Address [address] [place] [id number] Support Name Relationship Address Phone FRANCES GANDARA Unavailable [address] [place] [address] FRANCES GANDARA Unavailable [address] [place] [address] FRANCES GANDARA Unavailable [address] [place] [address] FRANCES GANDARA Unavailable [address] [place] [address] Insurance Providers: All historical and current Section [...] MEDICARE MEDICARE PART Apr 19, PART A [id number] Whit MOJICA (WNR) (M) A 2007 50A [phone] JESSICA MEDICARE MEDICARE PART Apr 19, PART A [id number] Whit [place] (WNR) (M) A 2007 [id number] [phone] JESSICA Selected Encounter This section includes the information on record at [place] for the Encounter. Date/Time Encounter Type Encounter Reason Provider Source Description Jun 06, 2021 AFO POS SOLID PROSTHETICS/ORTHOT ICD-10-CM JUAN CARLOS HARTMAN 02:30 PM ANK PLASTIC MO ICS M14.672 EY J Charcot's joint, left ankle and foot with Provider Comments: Charcot's Joint, left Ankle and Foot IHE Encounter Template Text not used by [facility] Assessments - Encounter Diagnoses This section includes the primary and secondary diagnoses documented for the Encounter. Date/Time Primary/Secondary Diagnosis Name Provider Source Diagnosis Jun 08, 2021 PRIMARY Charcot's THEA HARTMAN V A 03:50 PM joint, left EY J [facility] ankle and foot Plan of Treatment: Future Appointments (+ 6 months) and Future Tests (+/- 45 days) The Plan of Treatment section includes future care activities for the patient from all [place] treatmentfacilities. This section includes future appointments and future orders which are active, pending orscheduled.Future Appointments This section includes appointments that were scheduled to occur 6 months from the date of the Encounter, up to a maximum of 20 appointments. The data comes from all [place] treatment facilities. Appointment Date/Time Appointment Type Appointment Facili ty Name Jun 09, 2021 02:00 PM AMBULATORY - SURGERY [facility] June 21, 2021 01:45 PM AMBULATORY - NONE [facility] June 22, 2021 09:30 AM AMBULATORY - NONE [facility] June 22, 2021 12:30 PM AMBULATORY - NONE [facility] June 22, 2021 01:30 PM AMBULATORY - SURGERY [facility] June 22, 2021 02:30 PM AMBULATORY - NONE [facility] June 27, 2021 12:30 PM AMBULATORY - NONE [facility] June 27, 2021 01:30 PM AMBULATORY - NONE [facility] June 28, 2021 11:00 AM AMBULATORY - NONE [facility] July 04, 2021 12:15 PM AMBULATORY - NONE [facility] July 04, 2021 01:15 PM AMBULATORY - SURGERY [facility] July 06, 2021 10:15 AM AMBULATORY - NONE [facility] July 07, 2021 01:00 PM AMBULATORY - NONE [facility] July 07, 2021 02:00 PM AMBULATORY - SURGERY [facility] July 13, 2021 09:00 AM AMBULATORY - REHAB MEDICINE [facility] July 14, 2021 02:10 PM AMBULATORY - NONE [facility] Jul 21, 2021 09:45 AM AMBULATORY - NONE [facility] Jul 26, 2021 10:45 AM AMBULATORY - NONE [facility] Jul 29, 2021 11:30 AM AMBULATORY - NONE [facility] Jul 29, 2021 01:00 PM AMBULATORY - NONE [facility] Active, Pending, and Scheduled Orders This [...] data comes from all [place] treatment facilities. Test Date/Time Test Type Test Details Facility Name May 11, 2021 02:31 PM Pharmacy - Clinic Infusion [facility] Order Social History: Smoking Status (Most current) and [...] 11:00 AM VA-TOBACCO NEVER USED [place] [facility] Tobacco Use History This section includes a history of the smoking, or tobacco- related health factors, that were collected on or before the date of the Encounter. The data comes from the [place] facility where the Encounter took place. Date/Time Smoking Status/Tobacco Use Comment [facility] July 09, 2020 02:00 PM VA-TOBACCO FORMER USER [facility] July 09, 2020 02:00 PM VA-TOBACCO QUIT 15 YRS OR MORE [facility] Apr 17, 2019 02:39 PM INPT NO TOBACCO USE IN LAST 30 DAYS [facility] Feb 04, 2019 10:37 AM VA-TOBACCO NEVER USED [place] [facility] Oct 15, 2018 02:43 PM INPT NO TOBACCO USE IN LAST 30 DAYS [facility] Oct 13, 2018 11:30 PM INPT NO TOBACCO USE IN LAST 30 DAYS [facility] Sep 02, 2018 05:50 PM INPT NO TOBACCO USE IN LAST 30 DAYS [facility] Aug 12, 2018 07:28 PM INPT NO TOBACCO USE IN LAST 30 DAYS [facility] Jan 30, 2018 03:28 PM VA-TOBACCO FORMER USER [facility] Jan 30, 2018 03:28 PM VA-TOBACCO QUIT 15 YRS OR MORE [facility] May 29, 2017 04:53 PM INPT NO TOBACCO USE IN LAST 30 DAYS [facility] Apr 25, 2017 10:44 PM INPT NO TOBACCO USE IN LAST 30 DAYS [facility] Jan 01, 2017 06:40 PM INPT NO TOBACCO USE IN LAST 30 DAYS [facility] Dec 21, 2016 02:43 PM FORMER TOBACCO USER 7Y OR GREATER [facility] Sep 24, 2013 08:52 AM FORMER TOBACCO USER 7Y OR GREATER [facility] Advance Directives: All historical and current [...] 29, 2017 CLINICAL WARNING CORNELIO FREITAS [facility] May 16, 2017 ADVANCE DIRECTIVE SERENITY BUENROSTRO [facility] May 16, 2017 ADVANCE DIRECTIVE DISCUSSION SERENITY BUENROSTRO [place] [facility] May 04, 2017 CLINICAL WARNING MAGO DIAMOND [facility] May 04, 2017 CLINICAL WARNING GAEL ROSARIO [facility] Apr 26, 2017 CLINICAL WARNING JENNIFER DE LEON [facility] Jan 01, 2017 CLINICAL WARNING AYDE WELLS [facility] Jun 09, 2004 ADVANCE DIRECTIVE DARYL VILLARREAL [facility] Jun 07, 2004 ADVANCE DIRECTIVE SHERYL [...] LEFT 3 VIEWS OR MORE: SEBASTIÁN ROMERO [facility] JESSICA MOJICA [id number] -[birth year] 8 M Exm Date: MAY 20, 2021@09:03 Req Phys: DEBRA KERNS Loc: [facility] [id number] [facility] TRIAGE Img Loc: MAIN X-RAY Service: Unknown (Case [id number] COMPLETE) FOOT LEFT 3 VIEWS OR MORE ( RAD Detailed) CPT:07542 Proc Modifiers : WEIGHT BEARING Reason for Study: charcot foot Clinical History: IS NOT under investigation for COVID-19 or is COVID-19 negative charcot foot Responsible provider name and phon e number to notify for critical findings if other than user placing the order and pager listed below: User placing orders pag er: [phone] LAST CREATININE 0.7 (04/28/21) Report Status: Verified Date Reported: MAY 20, 2021 Date Verified: MAY 20, 2021 Railroad Car Cleaner E-Sig:/ES/SEBASTIÁN ROMERO MD Report: EXAMINATION: FOOT LEFT 3 VIEWS OR MORE, 2 9:03 AM COMPARISON: None available HISTORY: Reason for Study: charcot foot IS NOT under investigation for COVID-19 or is COVID-19 negative charcot foot Responsible provider name and phon e number to notify for critical findings if other than user placing the order and pager listed below: User placing orders pag er: [phone] LAST CREATININE 0.7 (04/28/21) Impression: 3 nonweightbearing [...] Primary Interpreting Staff: SEBASTIÁN ROMERO MD, RADIOLOGIST (Railroad Car Cleaner) /JRT May 20, 2021 09:03 AM FOOT RIGHT 3 VIEWS OR MORE: SEBASTIÁN ROMERO [facility] JSESICA MOJICA [id number] -[birth year] 8 M Exm Date: MAY 20, 2021@09:03 Req Phys: DEBRA KERNS Pat Loc: [facility] VISN23 [facility] TRIAGE Img Loc: MAIN X-RAY Service: Unknown (Case [id number] COMPLETE) FOOT RIGHT 3 VIEWS OR MORE (RAD Detailed) CPT:45441 Proc Modifiers : WEIGHT BEARING Reason for Study: charcot foot Clinical History: IS NOT under investigation for COVID-19 or is COVID-19 negative charcot foot Responsible provider name and phon e number to notify for critical findings if other than user placing the order and pager listed below: User placing orders pag er: [phone] LAST CREATININE 0.7 (04/28/21) Report Status: Verified Date Reported: MAY 20, 2021 Date Verified: MAY 20, 2021 Railroad Car Cleaner E-Sig:/ES/SEBASTIÁN ROMERO MD Report: EXAMINATION: FOOT RIGHT 3 VIEWS OR MORE, 05/21/19 9:03 AM COMPARISON: 08/02/2020 HISTORY: Reason for Study: charcot foot [place] IS NOT under investigation for COVID-19 or is COVID-19 negative charcot foot Responsible provider name and phon e number to notify for critical findings if other than user placing the order and pager listed below: User placing orders pag er: [phone] LAST CREATININE 0.7 (04/28/21) Impression: 1. 3 [...] Primary Interpreting Staff: SEBASTIÁN ROMERO MD, RADIOLOGIST (Railroad Car Cleaner) /JRT Encounter Notes: All associated encounter notes This section contains the clinical notes associated to the Encounter. Date/Time Encounter Note(s) Provider Source Jun 08, 2021 03:39 PM ORTHOTICS PROSTHETICS CONSULT: SOILA HARTMAN [facility] LOCAL TITLE: PROSTHETICS CONSULT STANDARD TITLE: ORTHOTICS PROSTHETICS CONSULT DATE OF NOTE: JUN 08, 2021@15:39 ENTRY DATE: JUN 08, 2021@15:39:18 AUTHOR: CLAUDE HARTMAN EXP COSIGNER: URGENCY: STATUS: COMPLETED Custom Made AFO, [place] Boot Provisional Diagnosis: Charcot's Joint, left Ank le and Foot(ICD-10-CM M14.672) Side: L Patient was seen in the pros thetics department for fitting and delivery of L [place] Boot. Pt states that he has been changing his me pelix pads on both feet independently, expects surgery on R to c ontinue on 06/13 @ [facility]. L AFO fit today, modified inner boot to improve relief under wound, trimmed proximal strap and modified proximal medial aspect to reduce excessive pressure on the medial flare of the tibia. EDUCATION: Education was provided to patient dur ing this encounter. Patient indicated readiness to learn about educational i nformation re: the following topics: donning/doffing, wash/care instructions, how to report a concern. Additional education training is not indicated. Patient indicates readiness to learn, verbalizes understanding, agreement and satisfaction with the treatment plan. Patient de nies further questions. Patient to be seen as needed. received today: L1960 x 1 Solid Ankle AFO [place] Boot /es/ Claude Hartman Skin Toggler Territory Service Representative Signed: 06/08/2021 15:51
--- OUTSIDE RECORDS SUMMARY | 2021-12-23 17:55 | XMS_ITS | Encounter Summary ---
:1945 Author Organization [facility] Address [address] [place] [id number] Support Name Relationship Address Phone FRANCES GANDARA Unavailable [address] [place] [address] FRANCES GANDARA Unavailable [address] [place] [address] FRANCES GANDARA Unavailable [address] [place] [address] FRANCES GANDARA Unavailable [address] [place] [address] Insurance Providers: All historical and current Section [...] MEDICARE MEDICARE PART Apr 19, PART A [id number] Whit MOJICA (WNR) (M) A 2007 50A [phone] JESSICA MEDICARE MEDICARE PART Apr 19, PART A [id number] Whit [place] (WNR) (M) A 2007 [id number] [phone] JESSICA Selected Encounter This section includes the information on record at [place] for the Encounter. Date/Time Encounter Type Encounter Description Reason Provider Source Jun 13, 2021 11:42 Outpatient Encounter TELEPHONE TRIAGE AM IHE Encounter Template Text not used by [place] Plan of Treatment: Future Appointments (+ 6 [...] 20 appointments. The data comes from all [facility]. Appointment Date/Time Appointment Type Appointment Facili ty Name June 21, 2021 01:45 PM AMBULATORY - NONE [facility] June 22, 2021 09:30 AM AMBULATORY - NONE [facility] June 22, 2021 12:30 PM AMBULATORY - NONE [facility] June 22, 2021 01:30 PM AMBULATORY - SURGERY [facility] June 22, 2021 02:30 PM AMBULATORY - NONE [facility] June 27, 2021 12:30 PM AMBULATORY - NONE [facility] June 27, 2021 01:30 PM AMBULATORY - NONE [facility] June 28, 2021 11:00 AM AMBULATORY - NONE [facility] July 04, 2021 12:15 PM AMBULATORY - NONE [facility] July 04, 2021 01:15 PM AMBULATORY - SURGERY [facility] July 06, 2021 10:15 AM AMBULATORY - NONE [facility] July 07, 2021 01:00 PM AMBULATORY - NONE [facility] July 07, 2021 02:00 PM AMBULATORY - SURGERY [facility] July 13, 2021 09:00 AM AMBULATORY - REHAB MEDICINE [facility] July 14, 2021 02:10 PM AMBULATORY - NONE [facility] Jul 21, 2021 09:45 AM AMBULATORY - NONE [facility] Jul 26, 2021 10:45 AM AMBULATORY - NONE [facility] Jul 29, 2021 11:30 AM AMBULATORY - NONE [facility] Jul 29, 2021 01:00 PM AMBULATORY - NONE [facility] Jul 29, 2021 02:00 PM AMBULATORY - MEDICINE [facility] Active, Pending, and Scheduled Orders This section includes a listing of several types of active, pending, and scheduled orders, including clinic medications orders, diagnostic test orders, procedure orders and consult orders; where the start date of the order is 45 days before the date of the Encounter or 45 days after the date of the Encounter. The data comes from all [facility]. Test Date/Time Test Type Test Details Facility Name May 11, 2021 02:31 PM Pharmacy - Clinic Infusion [facility] Order Social History: Smoking Status (Most current) and Tobacco Use (All prior to encounter date) This section includes the most current, and the historical, smoking and tobacco-related health factors from the [facility] facility where the Encounter took place.Current Smoking Status This section includes the most current smoking, or tobacco-related health factor, from the [place] facility where the Encounter took place. Date/Time Current Smoking Status Comment Facility Apr 25, 2021 11:00 AM VA-TOBACCO NEVER USED [place] [facility] Tobacco Use History This section includes a history of the smoking, or tobacco- related health factors, that were collected on or before the date of the Encounter. The data comes from the [facility] where the Encounter took place. Date/Time Smoking Status/Tobacco Use Comment [facility] it July 09, 2020 02:00 PM VA-TOBACCO FORMER USER [place] [facility] July 09, 2020 02:00 PM VA-TOBACCO QUIT 15 YRS OR MORE [facility] Apr 17, 2019 02:39 PM INPT NO TOBACCO USE IN LAST 30 DAYS [facility] Feb 04, 2019 10:37 AM [place]-TOBACCO NEVER USED [place] [facility] Oct 15, 2018 02:43 PM INPT NO TOBACCO USE IN LAST 30 DAYS [facility] Oct 13, 2018 11:30 PM INPT NO TOBACCO USE IN LAST 30 DAYS [facility] Sep 02, 2018 05:50 PM INPT NO TOBACCO USE IN LAST 30 DAYS [facility] Aug 12, 2018 07:28 PM INPT NO TOBACCO USE IN LAST 30 DAYS [facility] Jan 30, 2018 03:28 PM VA-TOBACCO FORMER USER [place] [facility] Jan 30, 2018 03:28 PM VA-TOBACCO QUIT 15 YRS OR MORE [facility] May 29, 2017 04:53 PM INPT NO TOBACCO USE IN LAST 30 DAYS [facility] Apr 25, 2017 10:44 PM INPT NO TOBACCO USE IN LAST 30 DAYS [facility] Jan 01, 2017 06:40 PM INPT NO TOBACCO USE IN LAST 30 DAYS [facility] Dec 21, 2016 02:43 PM FORMER TOBACCO USER 7Y OR GREATER [facility] Sep 24, 2013 08:52 AM FORMER TOBACCO USER 7Y OR GREATER [facility] Advance Directives: All historical and current Section Date Range: From patient's date of to the date document was created. This section includes ALL of a patient's completed or amended [place] Advance and Rescinded Directives. The entries below indicate that a directive exists for the patient, but an actual copy is not included with this document. The data comes from all [facility]. Date Advance Directives Provider Source May 29, 2017 CLINICAL WARNING CORNELIO FREITAS [facility] May 16, 2017 ADVANCE DIRECTIVE SERENITY BUENROSTRO [place] [facility] May 16, 2017 ADVANCE DIRECTIVE DISCUSSION SERENITY BUENROSTRO [place] [facility] May 04, 2017 CLINICAL WARNING MAGO DIAMOND [place] [facility] May 04, 2017 CLINICAL WARNING GAEL ROSARIO [facility] Apr 26, 2017 CLINICAL WARNING JENNIFER DE LEON [facility] Jan 01, 2017 CLINICAL WARNING WELLSAYDE HAGEN [facility] Jun 09, 2004 ADVANCE DIRECTIVE DARYL VILLARREAL [facility] Jun 07, 2004 ADVANCE DIRECTIVE SHERYL HOLLOWAY [facility] Radiology Reports: +/- 30 days of [...] the Encounter. The data comes from all [place] treatment facilities. Date/Time Radiology Report Provider Source May 20, 2021 09:03 AM FOOT LEFT 3 VIEWS OR MORE: SEBASTIÁN ROMERO [facility] JESSICA MOJICA [id number] -[birth year] 8 M Exm Date: MAY 20, 2021@09:03 Req Phys: DEBRA KERNS Loc: [facility] [id number] [facility] CENTER TRIAGE Img Loc: MAIN X-RAY Service: Unknown (Case [id number] COMPLETE) FOOT LEFT 3 VIEWS OR MORE ( RAD Detailed) CPT:61460 Proc Modifiers : WEIGHT BEARING Reason for Study: charcot foot Clinical History: IS NOT under investigation for COVID-19 or is COVID-19 negative charcot foot Responsible provider name and phon e number to notify for critical findings if other than user placing the order and pager listed below: User placing orders pag er: [phone] LAST CREATININE 0.7 (04/28/21) Report Status: Verified Date Reported: MAY 20, 2021 Date Verified: MAY 20, 2021 Rock Wool Applicator E-Sig:/ES/SEBASTIÁN ROMERO MD Report: EXAMINATION: FOOT LEFT 3 VIEWS OR MORE, 9:03 AM COMPARISON: None available HISTORY: Reason for Study: charcot foot [place] IS NOT under investigation for COVID-19 or is COVID-19 negative charcot foot Responsible provider name and phon e number to notify for critical findings if other than user placing the order and pager listed below: User placing orders pag er: [phone] LAST CREATININE 0.7 (04/28/21) Impression: 3 nonweightbearing [...] Primary Interpreting Staff: SEBASTIÁN ROMERO MD, RADIOLOGIST (Rock Wool Applicator) /JRT May 20, 2021 09:03 AM FOOT RIGHT 3 VIEWS OR MORE: SEBASTIÁN ROMERO [facility] JESSICA MOJICA [id number] -[birth year] 8 M Exm Date: MAY 20, 2021@09:03 Req Phys: DEBRA KERNS Pat Loc: [facility] VISN23 [facility]ENTER TRIAGE Im Loc: MAIN X-RAY Service: Unknown (Case [id number] COMPLETE) FOOT RIGHT 3 VIEWS OR MORE (RAD Detailed) CPT:01961 Proc Modifiers : WEIGHT BEARING Reason for Study: charcot foot Clinical History: [place] IS NOT under investigation for COVID-19 or is COVID-19 negative charcot foot Responsible provider name and phon e number to notify for critical findings if other than user placing the order and pager listed below: User placing orders pag er: [phone] LAST CREATININE 0.7 (04/28/21) Report Status: Verified Date Reported: MAY 20, 2021 Date Verified: MAY 20, 2021 Rock Wool Applicator E-Sig:/ES/SEBASTIÁN ROMERO MD Report: EXAMINATION: FOOT RIGHT [...] User placing orders [facility] er: [phone] LAST CREATININE 0.7 (04/28/21) Impression: 1. 3 [...] Primary Interpreting Staff: SEBASTIÁN ROMERO MD, RADIOLOGIST (Rock Wool Applicator) /JRT Encounter Notes: All associated encounter notes This section contains the clinical notes associated to the Encounter. Date/Time Encounter Note(s) Provider Source Jun 13, 2021 11:42 AM REPORT OF CONTACT: [facility] LOCAL TITLE: PATIENT CONTACT NOTE V STANDARD TITLE: REPORT OF CONTACT DATE OF NOTE: JUN 13, 2021@11:42 ENTRY DATE: JUN 13, 2021@11:42:55 AUTHOR: [facility] EXP COSIGNER: URGENCY: STATUS: COMPLETED PATIENT CONTACT NOTE Has [facility] Phone number verified as correct. [phone] The [place]'s daughter Frances calling to see if she can get her father some aftercare home care due to t he surgery, he had on his foot today at [facility] (see note June 07, 2021) June 13, 2021. [facility] will keep him for one night and Sasha spring needs to find some aftercare for her father before then. Frances can be at the above number for any questi ons and to follow up. /es/ [facility] VISN[facility] Signed: 06/13/2021 11:48 Receipt Acknowledged By: 06/13/2021 13:46 /es/ MONA ChoudharyN, RN, AMB-BC, CLC PACT synthetic cloth binding cutter for RAINER ALLEN * AWAITING SIGNATURE * CARIDAD DENNIS NARCISO 06/13/2021 ADDENDUM STATUS: COMPLETED Spoke with daughter, she has spoken with [facility] already, patient needs TCU, not home care. Gave daughter my number if she has an y questions. /vinicio/ VARGAS Choudhary, RN, HERMAN-BC, SALOMÓN PACT synthetic cloth binding cutter Signed: 06/13/2021 13:47
--- OUTSIDE RECORDS SUMMARY | 2021-12-23 17:58 | XMS_ITS | Encounter Summary ---
:1945 Author Organization [facility] Address [address] [place] [address] Support Name Relationship Address Phone FRANCES GANDARA Unavailable [address] [place] [address] FRANCES GANDARA Unavailable [address] [place] [address] FRANCES GANDARA Unavailable [address] [place] [address] FRANCES GANDARA Unavailable [address] [place] [address] Insurance Providers: All historical and current Section [...] MEDICARE MEDICARE PART Apr 19, PART A [id number] Whit MOJICA (WNR) (M) A 2007 50A [phone] JESSICA MEDICARE MEDICARE PART Apr 19, PART A [id number] Whit [place]JICA (WNR) (M) A 2007 [id number] [phone] JESSICA Selected Encounter This section includes the information on record at [place] for the Encounter. Date/Time Encounter Type Encounter Description Reason Provider Source Jun 14, 2021 12:49 Outpatient Encounter TELEPHONE/ANCILLARY PM IHE Encounter Template Text not used by [place] Plan of Treatment: Future Appointments (+ 6 [...] 20 appointments. The data comes from all [facility]. Appointment Date/Time Appointment Type Appointment Facili ty Name June 21, 2021 01:45 PM AMBULATORY - NONE [facility] June 22, 2021 09:30 AM AMBULATORY - NONE [facility] June 22, 2021 12:30 PM AMBULATORY - NONE [facility] June 22, 2021 01:30 PM AMBULATORY - SURGERY [facility] June 22, 2021 02:30 PM AMBULATORY - NONE [facility] June 27, 2021 12:30 PM AMBULATORY - NONE [facility] June 27, 2021 01:30 PM AMBULATORY - NONE [facility] June 28, 2021 11:00 AM AMBULATORY - NONE [facility] July 04, 2021 12:15 PM AMBULATORY - NONE [facility] July 04, 2021 01:15 PM AMBULATORY - SURGERY [facility] July 06, 2021 10:15 AM AMBULATORY - NONE [facility] July 07, 2021 01:00 PM AMBULATORY - NONE [facility] July 07, 2021 02:00 PM AMBULATORY - SURGERY [facility] July 13, 2021 09:00 AM AMBULATORY - REHAB MEDICINE [facility] July 14, 2021 02:10 PM AMBULATORY - NONE [facility] Jul 21, 2021 09:45 AM AMBULATORY - NONE [facility] Jul 26, 2021 10:45 AM AMBULATORY - NONE [facility] Jul 29, 2021 11:30 AM AMBULATORY - NONE [facility] Jul 29, 2021 01:00 PM AMBULATORY - NONE [facility] Jul 29, 2021 02:00 PM AMBULATORY - MEDICINE [facility] Active, Pending, and Scheduled Orders This section includes a listing of several types of active, pending, and scheduled orders, including clinic medications orders, diagnostic test orders, procedure orders and consult orders; where the start date of the order is 45 days before the date of the Encounter or 45 days after the date of the Encounter. The data comes from all [facility]. Test Date/Time Test Type Test Details Facility Name May 11, 2021 02:31 PM Pharmacy - Clinic Infusion [facility] Order Social History: Smoking Status (Most current) and Tobacco Use (All prior to encounter date) This section includes the most current, and the historical, smoking and tobacco-related health factors from the [facility] facility where the Encounter took place.Current Smoking Status This section includes the most current smoking, or tobacco-related health factor, from the [place] facility where the Encounter took place. Date/Time Current Smoking Status Comment Facility Apr 25, 2021 11:00 AM VA-TOBACCO NEVER USED [place] [facility] Tobacco Use History This section includes a history of the smoking, or tobacco- related health factors, that were collected on or before the date of the Encounter. The data comes from the [facility] where the Encounter took place. Date/Time Smoking Status/Tobacco Use Comment [facility] July 09, 2020 02:00 PM VA-TOBACCO FORMER USER [place] [facility] July 09, 2020 02:00 PM VA-TOBACCO QUIT 15 YRS OR MORE [facility] Apr 17, 2019 02:39 PM INPT NO TOBACCO USE IN LAST 30 DAYS [facility] Feb 04, 2019 10:37 AM [place]-TOBACCO NEVER USED [place] [facility] Oct 15, 2018 02:43 PM INPT NO TOBACCO USE IN LAST 30 DAYS [facility] Oct 13, 2018 11:30 PM INPT NO TOBACCO USE IN LAST 30 DAYS [facility] Sep 02, 2018 05:50 PM INPT NO TOBACCO USE IN LAST 30 DAYS [facility] Aug 12, 2018 07:28 PM INPT NO TOBACCO USE IN LAST 30 DAYS [facility] Jan 30, 2018 03:28 PM VA-TOBACCO FORMER USER [place] [facility] Jan 30, 2018 03:28 PM VA-TOBACCO QUIT 15 YRS OR MORE [facility] May 29, 2017 04:53 PM INPT NO TOBACCO USE IN LAST 30 DAYS [facility] Apr 25, 2017 10:44 PM INPT NO TOBACCO USE IN LAST 30 DAYS [facility] Jan 01, 2017 06:40 PM INPT NO TOBACCO USE IN LAST 30 DAYS [facility] Dec 21, 2016 02:43 PM FORMER TOBACCO USER 7Y OR GREATER [facility] Sep 24, 2013 08:52 AM FORMER TOBACCO USER 7Y OR GREATER [facility] Advance Directives: All historical and current Section Date Range: From patient's date of to the date document was created. This section includes ALL of a patient's completed or amended [place] Advance and Rescinded Directives. The entries below indicate that a directive exists for the patient, but an actual copy is not included with this document. The data comes from all [facility]. Date Advance Directives Provider Source May 29, 2017 CLINICAL WARNING CORNELIO FREITAS [facility] May 16, 2017 ADVANCE DIRECTIVE SERENITY BUENROSTRO [place] [facility] May 16, 2017 ADVANCE DIRECTIVE DISCUSSION SER[place]ITY [place]STRO [place] [facility] May 04, 2017 CLINICAL WARNING MAGO DIAMOND [place] [facility] May 04, 2017 CLINICAL WARNING GAEL ROSARIO [facility] Apr 26, 2017 CLINICAL WARNING JENNIFER DE LEON [facility] Jan 01, 2017 CLINICAL WARNING AYDE WELLS [facility] Jun 09, 2004 ADVANCE DIRECTIVE DARYL VILLARREAL [facility] Jun 07, 2004 ADVANCE DIRECTIVE SHERYL HOLLOWAY [facility] Radiology Reports: +/- 30 days of [...] the Encounter. The data comes from all [facility] facilities. Date/Time Radiology Report Provider Source May 20, 2021 09:03 AM FOOT LEFT 3 VIEWS OR MORE: SEBASTIÁN ROMERO [facility] JESSICA MOJICA [id number] [birth year] 8 M Exm Date: MAY 20, 2021@09:03 Req Phys: DEBRA KERNS Loc: [facility] TRIAGE Img Loc: MAIN X-RAY Service: Unknown (Case [id number] COMPLETE) FOOT LEFT 3 VIEWS OR MORE ( RAD Detailed) CPT:68258 Proc Modifiers : WEIGHT BEARING Reason for Study: charcot foot Clinical History: [place] IS NOT under investigation for COVID-19 or is COVID-19 negative charcot foot Responsible provider name and phon e number to notify for critical findings if other than user placing the order and pager listed below: User placing orders pag er: [phone] LAST CREATININE 0.7 (04/28/21) Report Status: Verified Date Reported: MAY 20, 2021 Date Verified: MAY 20, 2021 Medical Economics Consultant E-Sig:/ES/SEBASTIÁN ROMERO MD Report: EXAMINATION: FOOT LEFT 3 VIEWS OR MORE, 9:03 AM COMPARISON: None available HISTORY: Reason for Study: charcot foot [place] IS NOT under investigation for COVID-19 or is COVID-19 negative charcot foot Responsible provider name and phon e number to notify for critical findings if other than user placing the order and pager listed below: User placing orders pag er: [phone] LAST CREATININE 0.7 (04/28/21) Impression: 3 nonweightbearing [...] Primary Interpreting Staff: SEBASTIÁN ROMERO MD, RADIOLOGIST (Medical Economics Consultant) /JRT May 20, 2021 09:03 AM FOOT RIGHT 3 VIEWS OR MORE: SEBASTIÁN ROMERO [facility] JESSICA MOJICA [id number] -[birth year] 8 M Exm Date: MAY 20, 2021@09:03 Req Phys: DEBRA KERNS Pat Loc: [facility] VISN[facility] TRIAGE Img Loc: MAIN X-RAY Service: Unknown (Case [id number] COMPLETE) FOOT RIGHT 3 VIEWS OR MORE (RAD Detailed) CPT:58724 Proc Modifiers : WEIGHT BEARING Reason for Study: charcot foot Clinical History: IS NOT under investigation for COVID-19 or is COVID-19 negative charcot foot Responsible provider name and phon e number to notify for critical findings if other than user placing the order and pager listed below: User placing orders pag er: [phone] LAST CREATININE 0.7 (04/28/21) Report Status: Verified Date Reported: MAY 20, 2021 Date Verified: MAY 20, 2021 Medical Economics Consultant E-Sig:/ES/SEBASTIÁN ROMERO MD Report: EXAMINATION: FOOT RIGHT 3 VIEWS OR MORE, 05/21/19 9:03 AM COMPARISON: 08/02/2020 HISTORY: Reason for Study: charcot foot IS NOT under investigation for COVID-19 or is COVID-19 negative charcot foot Responsible provider name and phon e number to notify for critical findings if other than user placing the order and pager listed below: User placing orders [facility] er: [phone] LAST CREATININE 0.7 (04/28/21) Impression: 1. 3 [...] Primary Interpreting Staff: SEBASTIÁN ROMERO MD, RADIOLOGIST (Medical Economics Consultant) /JRT Encounter Notes: All associated encounter notes This section contains the clinical notes associated to the Encounter. Date/Time Encounter Note(s) Provider Source Jun 14, 2021 12:49 PM COMMUNITY FDC CARE NOTE: TAJ DUVALL [facility] LOCAL TITLE: [facility] ELIGIBILITY STANDARD TITLE: COMMUNITY FDC CARE NOTE DATE OF NOTE: JUN 14, 2021@12:49 ENTRY DATE: JUN 14, 2021@12:49:36 AUTHOR: STEVE DUVALL EXP COSIGNER: URGENCY: STATUS: COMPLETED COMMUNITY FDC ELIGIBILITY: This contact note is used to document a Veter an's administrative eligibility for a VA authorization at a [facility] custodial. Referral Source/Location: [facility] ([facility] Home: Contract Longterm: Yes Contact: Alix Acevedo Phone Number: Reviewed the following eligibility [facility] or [facility] Authorizatio n: Yes If yes:70% service connected or higher If administratively eligible, meets [facility] guidelines for skilled rehab and able/willing to participate: Y es has a clinical need for custodial car e: Yes Hospice authorization: Yes would be eligible if enrolled in hosp e service - hospice not involved at this time. Referral source contact encouraged to do the fol chrissing: Contact continuity writer for further questions as needed. /vinicio/ KRAIG OROZCO DATA CENTER MANAGER KRAIG Signed: 06/14/2021 12:50
--- OUTSIDE RECORDS SUMMARY | 2021-12-23 18:01 | XMS_ITS | Encounter Summary ---
:1945 Author Organization [facility] Address [address] [place] [address] Support Name Relationship Address Phone FRANCES GANDARA Unavailable [address] [place] [address] FRANCES GANDARA Unavailable [address] [place] [address] FRANCES GANDARA Unavailable [address] [place] [address] FRANCES GANDARA Unavailable [address] [place] [address] Insurance Providers: All historical and current Section [...] MEDICARE MEDICARE PART Apr 19, PART A [id number] Whit MOJICA (WNR) (M) A 2007 50A [phone] JESSICA MEDICARE MEDICARE PART Apr 19, PART A [id number] Whit MOJICA (WNR) (M) A 2007 [id number] [phone] JESSICA Selected Encounter This section includes the information on record at [place] for the Encounter. Date/Time Encounter Type Encounter Reason Provider Source Description Jun 15, 2021 09:38 Outpatient TELEPHONE/ANCILLARY ALMAS WIGGINS AM Encounter IHE Encounter Template Text not used by [place] Plan of Treatment: Future Appointments (+ 6 [...] 20 appointments. The data comes from all [facility]. Appointment Date/Time Appointment Type Appointment Facili ty Name June 21, 2021 01:45 PM AMBULATORY - NONE [facility] June 22, 2021 09:30 AM AMBULATORY - NONE [facility] June 22, 2021 12:30 PM AMBULATORY - NONE [facility] June 22, 2021 01:30 PM AMBULATORY - SURGERY [facility] June 22, 2021 02:30 PM AMBULATORY - NONE [facility] June 27, 2021 12:30 PM AMBULATORY - NONE [facility] June 27, 2021 01:30 PM AMBULATORY - NONE [facility] June 28, 2021 11:00 AM AMBULATORY - NONE [facility] July 04, 2021 12:15 PM AMBULATORY - NONE [facility] July 04, 2021 01:15 PM AMBULATORY - SURGERY [facility] July 06, 2021 10:15 AM AMBULATORY - NONE [facility] July 07, 2021 01:00 PM AMBULATORY - NONE [facility] July 07, 2021 02:00 PM AMBULATORY - SURGERY [facility] July 13, 2021 09:00 AM AMBULATORY - REHAB MEDICINE [facility] July 14, 2021 02:10 PM AMBULATORY - NONE [facility] Jul 21, 2021 09:45 AM AMBULATORY - NONE [facility] Jul 26, 2021 10:45 AM AMBULATORY - NONE [facility] Jul 29, 2021 11:30 AM AMBULATORY - NONE [facility] Jul 29, 2021 01:00 PM AMBULATORY - NONE [facility] Jul 29, 2021 02:00 PM AMBULATORY - MEDICINE [facility] Active, Pending, and Scheduled Orders This section includes a listing of several types of active, pending, and scheduled orders, including clinic medications orders, diagnostic test orders, procedure orders and consult orders; where the start date of the order is 45 days before the date of the Encounter or 45 days after the date of the Encounter. The data comes from all [facility]. Test Date/Time Test Type Test Details Facility Name May 11, 2021 02:31 PM Pharmacy - Clinic Infusion [facility] Order Social History: Smoking Status (Most current) and Tobacco Use (All prior to encounter date) This section includes the most current, and the historical, smoking and tobacco-related health factors from the [facility] where the Encounter took place.Current Smoking Status This section includes the most current smoking, or tobacco-related health factor, from the [place] facility where the Encounter took place. Date/Time Current Smoking Status Comment Facility Apr 25, 2021 11:00 AM VA-TOBACCO NEVER USED [place] [facility] Tobacco Use History This section includes a history of the smoking, or tobacco- related health factors, that were collected on or before the date of the Encounter. The data comes from the [facility] where the Encounter took place. Date/Time Smoking Status/Tobacco Use Comment [facility] July 09, 2020 02:00 PM VA-TOBACCO FORMER USER [place] [facility] July 09, 2020 02:00 PM VA-TOBACCO QUIT [address] [facility] Apr 17, 2019 02:39 PM INPT NO TOBACCO USE IN LAST [address] [facility] Feb 04, 2019 10:37 AM [place]-TO[place]AC[place] NEVER USED [place] [facility] Oct 15, 2018 02:43 PM INPT NO TOBACCO USE IN LAST [address] [facility] Oct 13, 2018 11:30 PM INPT NO TOBACCO USE IN LAST [address] [facility] Sep 02, 2018 05:50 PM INPT NO TOBACCO USE IN LAST [address] [facility] Aug 12, 2018 07:28 PM INPT NO TOBACCO USE IN LAST [address] [facility] Jan 30, 2018 03:28 PM VA-TOBACCO FORMER USER [place] [facility] Jan 30, 2018 03:28 PM VA-TOBACCO QUIT [address] [facility] May 29, 2017 04:53 PM INPT NO TOBACCO USE IN LAST [address] [facility] Apr 25, 2017 10:44 PM INPT NO TOBACCO USE IN LAST [address] [facility] Jan 01, 2017 06:40 PM INPT NO TOBACCO USE IN LAST [address] [facility] Dec 21, 2016 02:43 PM FORMER TOBACCO USER 7Y OR GRE[address] [facility] Sep 24, 2013 08:52 AM FORMER TOBACCO USER 7Y OR GRE[address] [facility] Advance Directives: All historical and current Section Date Range: From patient's date of to the date document was created. This section includes ALL of a patient's completed or amended [place] Advance and Rescinded Directives. The entries below indicate that a directive exists for the patient, but an actual copy is not included with this document. The data comes from all [facility]. Date Advance Directives Provider Source May 29, 2017 CLINICAL WARNING CORNELIO FREITAS [facility] May 16, 2017 ADVANCE DIRECTIVE SERENITY BUENROSTRO [place] [facility] May 16, 2017 ADVANCE DIRECTIVE DISCUSSION SER[place]ITY BU[place]ROSTRO [place] [facility] May 04, 2017 CLINICAL WARNING MAGO DIAMOND [place] [facility] May 04, 2017 CL[address] GAEL ROSARIO [facility] Apr 26, 2017 CLINICAL WARNING JENNIFER DE LEON [facility] Jan 01, 2017 CLINICAL WARNING AYDE WELLS [facility] Jun 09, 2004 ADVANCE DIRECT[address] DARYL V[address]ARREAL [facility] Jun 07, 2004 ADVANCE DIRECTIVE SHERYL HOLLOWAY [facility] Radiology Reports: +/- 30 days [...] the Encounter. The data comes from all [facility] facilities. Date/Time Radiology Report Provider Source May 20, 2021 09:03 AM FOOT LEFT 3 VIEWS OR MORE: SEBASTIÁN ROMERO [facility] JESSICA MOJICA [id number] [birth year] 8 M Exm Date: MAY 20, 2021@09:03 Req Phys: DEBRA KERNS Loc: [facility] [id number] [facility] TRIAGE Img Loc: MAIN X-RAY Service: Unknown (Case [id number] COMPLETE) FOOT LEFT 3 VIEWS OR MORE ( RAD Detailed) CPT:79802 Proc Modifiers : WEIGHT BEARING Reason for Study: charcot foot Clinical History: [place] IS NOT under investigation for COVID-19 or is COVID-19 negative charcot foot Responsible provider name and phon e number to notify for critical findings if other than user placing the order and pager listed below: User placing orders pag er: [phone] LAST CREATININE 0.7 (04/28/21) Report Status: Verified Date Reported: MAY 20, 2021 Date Verified: MAY 20, 2021 Lay Brother E-Sig:/ES/SEBASTIÁN ROMERO MD Report: EXAMINATION: FOOT LEFT 3 VIEWS OR MORE, 2 9:03 AM COMPARISON: None available HISTORY: Reason for Study: charcot foot [place] IS NOT under investigation for COVID-19 or is COVID-19 negative charcot foot Responsible provider name and phon e number to notify for critical findings if other than user placing the order and pager listed below: User placing orders pag er: [phone] LAST CREATININE 0.7 (04/28/21) Impression: 3 nonweightbearing [...] Primary Interpreting Staff: SEBASTIÁN ROMERO MD, RADIOLOGIST (Lay Brother) /JRT May 20, 2021 09:03 AM FOOT RIGHT 3 VIEWS OR MORE: SEBASTIÁN ROMERO [facility] JESSICA MOJICA [id number] -[birth year] 8 M Exm Date: MAY 20, 2021@09:03 Req Phys: DEBRA KERNS Loc: [facility] TRIAGE Im Loc: MAIN X-RAY Service: Unknown (Case [id number] COMPLETE) FOOT RIGHT 3 VIEWS OR MORE (RAD Detailed) CPT:48029 Proc Modifiers : WEIGHT BEARING Reason for Study: charcot foot Clinical History: IS NOT under investigation for COVID-19 or is COVID-19 negative charcot foot Responsible provider name and phon e number to notify for critical findings if other than user placing the order and pager listed below: User placing orders pag er: [phone] LAST CREATININE 0.7 (04/28/21) Report Status: Verified Date Reported: MAY 20, 2021 Date Verified: MAY 20, 2021 Lay Brother E-Sig:/ES/SEBASTIÁN ROMERO MD Report: EXAMINATION: FOOT RIGHT 3 VIEWS OR MORE, 05/21/19 9:03 AM COMPARISON: 08/02/2020 HISTORY: Reason for Study: charcot foot IS NOT under investigation for COVID-19 or is COVID-19 negative charcot foot Responsible provider name and phon e number to notify for critical findings if other than user placing the order and pager listed below: User placing orders pag er: [phone] LAST CREATININE 0.7 (04/28/21) Impression: 1. 3 [...] Primary Interpreting Staff: SEBASTIÁN ROMERO MD, RADIOLOGIST (Lay Brother) /JRT Encounter Notes: All associated encounter notes This section contains the clinical notes associated to the Encounter. Date/Time Encounter Note(s) Provider Source Jun 15, 2021 09:38 AM ADMINISTRATIVE NOTE: STEVE DUVALL [facility] LOCAL TITLE: BENEFICIARY TRAVEL(BT) STANDARD TITLE: ADMINISTRATIVE NOTE DATE OF NOTE: JUN 15, 2021@09:38 ENTRY DATE: JUN 15, 2021@09:38:28 AUTHOR: STEVE DUVALL EXP COSIGNER: URGENCY: STATUS: COMPLETED BENEFICIARY TRAVEL SPECIAL MODE TRANSPORTATION: I have informed the [place] that, requests with insufficient evidence of functional need, containing information that ap pears inconsistent with clinical evidence or appears intentionally exag gerated to obtain eligibility will be referred for further review or returned for additional information or clarification. Point of Contact's E-mail: Phone/Pager/Extension: [phone] MEDICAL JUSTIFICATION is not able to transfer into a private vehicle or medically appropriate common carrier, or requires additio nal assistance as outlined below. The clinical condition requiring the use of [place] Special Mode transportation to be safely transported are as follows: Severe deconditioning or functional limitation precluding private transportation with assistance This request is not for an inter-facility trans demar WHEELCHAIR VAN/AMBULETTE (Ship Laborer Only; NO Medic al Attendant; Non-Emergent): Wheelchair type: Manual Date travel is to commence: May supervisor benzene refining time (if needed): 11:30 Estimated time frame will require trans portation: One Time From: Other Location: Comment: [address] [address] Contact: Zhanna [phone] To: (Facility Name): [address]/State: [place] [address] P: [phone] Frequency: One Way /vinicio/ KRAIG OROZCO MINE ENGINEERING MANAGER AUTOMOTIVE BRAKE TECHNICIAN Signed: 06/15/2021 09:45
--- OUTSIDE RECORDS SUMMARY | 2021-12-23 18:02 | XMS_ITS | Encounter Summary ---
:[address] [facility] Address [address] [place] [address] Support Name Relationship Address Phone FRANCES GANDARA Unavailable [address] [place] [address] FRANCES GANDARA Unavailable [address] [place] [address] FRANCES GANDARA Unavailable [address] [place] [address] FRANCES GANDARA Unavailable [address] [place] [address] Insurance Providers: All historical and current Section [...] MEDICARE MEDICARE PART Apr 19, PART A [id number] Whit MOJICA (WNR) (M) A 2007 50A [phone] JESSICA MEDICARE MEDICARE PART Apr 19, PART A [id number] Whit [place] (WNR) (M) A 2007 [id number] [phone] JESSICA Selected Encounter This section includes the information on record at [place] for the Encounter. Date/Time Encounter Type Encounter Reason Provider Source Description Jun 17, 2021 09:04 Outpatient TELEPHONE/ANCILLARY ALMAS WIGGINS AM Encounter IHE Encounter Template Text not used by [place] Plan of Treatment: Future Appointments (+ 6 months) and Future Tests (+/- 45 days) The Plan of Treatment section includes future care activities for the patient from all [place] treatmentfacilities. This section includes future appointments and future orders which are active, pending orscheduled.Future Appointments This section includes appointments that were scheduled to occur 6 months from the date of the Encounter, up to a maximum of 20 appointments. The data comes from all [facility]. Appointment Date/Time Appointment Type Appointment Facili ty Name June 21, 2021 01:45 PM AMBULATORY - NONE [facility] June 22, 2021 09:30 AM AMBULATORY - NONE [facility] June 22, 2021 12:30 PM AMBULATORY - NONE [facility] June 22, 2021 01:30 PM AMBULATORY - SURGERY [facility] June 22, 2021 02:30 [...] 04, 2021 01:15 PM AMBULATORY - SURGERY [facility] July 06, 2021 10:15 AM AMBULATORY - NONE [facility] July 07, 2021 01:00 PM AMBULATORY - NONE [facility] July 07, 2021 02:00 PM AMBULATORY - SURGERY [facility] July 13, 2021 09:00 AM AMBULATORY - REHAB [facility]ICINE [facility] July 14, 2021 02:10 PM AMBULATORY [...] 29, 2021 02:00 PM AMBULATORY - MEDICINE [facility] Active, Pending, and Scheduled Orders This section includes a listing of several types of active, pending, and scheduled orders, including clinic medications orders, diagnostic test orders, procedure orders and consult orders; where the start date of the order is 45 days before the date of the Encounter or 45 days after the date of the Encounter. The data comes from all [facility]. Test Date/Time Test Type Test Details Facility Name May 11, 2021 02:31 PM Pharmacy - Clinic Infusion [facility] Order Social History: Smoking Status (Most current) and Tobacco Use (All prior to encounter date) This section includes the most current, and the historical, smoking and tobacco-related health factors from the [facility] where the Encounter took place.Current Smoking Status This section includes the most current smoking, or tobacco-related health factor, from the [place] facility where the Encounter took place. Date/Time Current Smoking Status Comment Facility Apr 25, 2021 11:00 AM [place]-TOBACCO NEVER USED [place] [facility] Tobacco Use History This section includes a history of the smoking, or tobacco- related health factors, that were collected on or before the date of the Encounter. The data comes from the [facility] where the Encounter took place. Date/Time Smoking Status/Tobacco Use Comment [facility] July 09, 2020 02:00 PM [place]-TOBACCO FORMER USER [place] [facility] July 09, 2020 02:00 PM VA-TOBACCO QUIT [address] [facility] Apr 17, 2019 02:39 PM INPT NO TOBACCO USE IN LAST [address] [facility] Feb 04, 2019 10:37 AM [place]-TOBACCO NEVER USED [place] [facility] Oct 15, 2018 02:43 PM [...] 03:28 PM [place]-TOBACCO FORMER USER [place] [facility] Jan 30, 2018 03:28 PM VA-TOBACCO [...] ALL of a patient's completed or amended [place] Advance and Rescinded Directives. The entries below indicate that a directive exists for the patient, but an actual copy is not included with this document. The data comes from all [facility]. Date Advance Directives Provider Source May 29, 2017 CLINICAL WARNING CORNELIO FREITAS [facility] May 16, 2017 ADVANCE DIRECTIVE SERENITY BU[place]ROSTRO [place] [facility] May 16, 2017 ADVANCE DIRECTIVE DISCUSSION [facility] [place] [facility] May 04, 2017 CLINICAL WARNING MAGO DIAMOND [place] [facility] May 04, 2017 CLIN[address] GAEL ROSARIO [facility] Apr 26, 2017 CLINICAL WARNING JENNIFER DE LEON [facility] Jan 01, 2017 CLINICAL WARN[address] AYDE WELLS [facility] Jun 09, 2004 ADVANCE [address] DARYL VILLARREAL [facility] Jun 07, 2004 ADVANCE DIRECTIVE SHERYL HOLLOWAY [facility] Radiology Reports: +/- 30 days of [...] the Encounter. The data comes from all [facility] facilities. Date/Time Radiology Report Provider Source May 20, 2021 09:03 AM FOOT LEFT 3 VIEWS OR MORE: SEBASTIÁN ROMERO [facility] JESSICA MOJICA [id number] -[birth year] 8 M Exm Date: MAY 20, 2021@09:03 Req Phys: DEBRA KERNS Loc: [facility] [id number] [facility] TRIAGE Img Loc: MAIN X-RAY Service: Unknown (Case [id number] COMPLETE) FOOT LEFT 3 VIEWS OR MORE ( RAD Detailed) CPT:09772 Proc Modifiers : WEIGHT BEARING Reason for Study: charcot foot Clinical History: [facility] IS NOT under investigation for COVID-19 or is COVID-19 negative charcot foot Responsible provider name and phon e number to notify for critical findings if other than user placing the order and pager listed below: User placing orders pag er: [phone] LAST CREATININE 0.7 (04/28/21) Report Status: Verified Date Reported: MAY 20, 2021 Date Verified: MAY 20, 2021 Senior Engineering Tech E-Sig:/ES/SEBASTIÁN ROMERO MD Report: EXAMINATION: FOOT LEFT 3 VIEWS OR MORE, 2 9:03 AM COMPARISON: None available HISTORY: Reason for Study: charcot foot [facility] IS NOT under investigation for COVID-19 or is COVID-19 negative charcot foot Responsible provider name and phon e number to notify for critical findings if other than user placing the order and pager listed below: User placing orders pag er: [phone] LAST CREATININE 0.7 (04/28/21) Impression: 3 nonweightbearing [...] Interpreting Staff: SEBASTIÁN ROMERO MD, RADIOLOGIST (Senior Engineering Tech) /JRT May 20, 2021 09:03 AM FOOT RIGHT 3 VIEWS OR MORE: SEBASTIÁN ROMERO [facility] JESSICA MOJICA [id number] -[birth year] 8 M Exm Date: MAY 20, 2021@09:03 Req Phys: DEBRA KERNS Loc: [facility] [id number] [facility] TRIAGE Im Loc: MAIN X-RAY Service: Unknown (Case [id number] COMPLETE) FOOT RIGHT 3 VIEWS OR MORE (RAD Detailed) CPT:49487 Proc Modifiers : WEIGHT BEARING Reason for Study: charcot foot Clinical History: IS NOT under investigation for COVID-19 or is COVID-19 negative charcot foot Responsible provider name and phon e number to notify for critical findings if other than user placing the order and pager listed below: User placing orders pag er: [phone] LAST CREATININE 0.7 (04/28/21) Report Status: Verified Date Reported: MAY 20, 2021 Date Verified: MAY 20, 2021 Senior Engineering Tech E-Sig:/ES/SEBASTIÁN ROMERO MD Report: EXAMINATION: FOOT RIGHT 3 VIEWS OR MORE, 05/21/19 9:03 AM COMPARISON: 08/02/2020 HISTORY: Reason for Study: charcot foot IS NOT under investigation for COVID-19 or is COVID-19 negative charcot foot Responsible provider name and phon e number to notify for critical findings if other than user placing the order and pager listed below: User placing orders pag er: [phone] LAST CREATININE 0.7 (04/28/21) Impression: 1. 3 [...] Interpreting Staff: SEBASTIÁN ROMERO MD, RADIOLOGIST (Senior Engineering Tech) /JRT Encounter Notes: All associated encounter notes This section contains the clinical notes associated to the Encounter. Date/Time Encounter Note(s) Provider Source Jun 17, 2021 09:04 AM ADMINISTRATIVE NOTE: UXAN QUIROS [facility] LOCAL TITLE: BENEFICIARY TRAVEL(BT) TOMAS STANDARD TITLE: ADMINISTRATIVE NOTE DATE OF NOTE: JUN 17, 2021@09:04 ENTRY DATE: JUN 17, 2021@09:06:19 AUTHOR: XUAN QUIROS EXP COSIGNER: URGENCY: STATUS: COMPLETED BENEFICIARY TRAVEL SPECIAL MODE TRANSPORTATION: I have informed the [facility] that, requests with insufficient evidence of functional need, containing information that ap pears inconsistent with clinical evidence or appears intentionally exag gerated to obtain eligibility will be referred for further review or returned for additional information or clarification. Point of Contact's E-mail: [email or web address] Phone/Pager/Extension: [phone] MEDICAL JUSTIFICATION [facility] is not able to transfer into a private vehicle or medically appropriate common carrier, or requires additio nal assistance as outlined below. 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
--- OUTSIDE RECORDS SUMMARY | 2021-12-23 18:04 | XMS_ITS | Encounter Summary ---
:1945 Author Organization [facility] Address [address] [place] [address] Support Name Relationship Address Phone FRANCES GANDARA Unavailable [address] [place] [address] FRANCES GANDARA Unavailable [address] [place] [address] FRANCES GANDARA Unavailable [address] [place] [address] FRANCES GANDARA Unavailable [address] [place] [address] Insurance Providers: All historical and current Section [...] MEDICARE MEDICARE PART Apr 19, PART A [id number] 800 Whit MOJ[place] (WNR) (M) A 2007 50A [phone] JESSICA MEDICARE MEDICARE PART Apr 19, PART A [id number] 800 Whit [place] (WNR) (M) A 2007 [id number] [phone] JESSICA Selected Encounter This section includes the information on record at [place] for the Encounter. Date/Time Encounter Type Encounter Description Reason Provider Source Jun 17, 2021 12:00 Outpatient Encounter EVENT (HISTORICAL) AM E Encounter Template Text not used by [place] [...] 20 appointments. The data comes from all [place] treatment [facility]. Appointment Date/Time Appointment Type Appointment Facili ty Name June 21, 2021 01:45 PM AMBULATORY - NONE [facility] June 22, 2021 09:30 AM AMBULATORY - NONE [facility] June 22, 2021 12:30 PM AMBULATORY - NONE [facility] June 22, 2021 01:30 PM AMBULATORY - SURGERY [facility] June 22, 2021 02:30 PM AMBULATORY - NONE [facility] June 27, 2021 12:30 PM AMBULATORY - NONE [facility] June 27, 2021 01:30 PM AMBULATORY - NONE [facility] June 28, 2021 11:00 AM AMBULATORY - NONE [facility] July 04, 2021 12:15 PM AMBULATORY - NONE [facility] July 04, 2021 01:15 PM AMBULATORY - SURGERY [facility] July 06, 2021 10:15 AM AMBULATORY - NONE [facility] July 07, 2021 01:00 PM AMBULATORY - NONE [facility] July 07, 2021 02:00 PM AMBULATORY - SURGERY [facility] July 13, 2021 09:00 AM AMBULATORY - REHAB MEDICINE [facility] July 14, 2021 02:10 PM AMBULATORY - NONE [facility] Jul 21, 2021 09:45 AM AMBULATORY - NONE [facility] Jul 26, 2021 10:45 AM AMBULATORY - NONE [facility] Jul 29, 2021 11:30 AM AMBULATORY - NONE [facility] Jul 29, 2021 01:00 PM AMBULATORY - NONE [facility] Jul 29, 2021 02:00 PM AMBULATORY - MEDICINE [facility] CS Active, Pending, and Scheduled Orders This section includes a listing of several types of active, pending, and scheduled orders, including clinic medications orders, diagnostic test orders, procedure orders and consult orders; where the start date of the order is 45 days before the date of the Encounter or 45 days after the date of the Encounter. The data comes from all [place] treatment [facility]. Test Date/Time Test Type Test Details Facility Name May 11, 2021 02:31 PM Pharmacy - Clinic Infusion [facility] Order Social History: Smoking Status (Most [...] 11:00 AM [place]-TOBACCO NEVER USED [place] [facility] Tobacco Use History This section includes a history of the smoking, or tobacco- related health factors, that were collected on or before the date of the Encounter. The data comes from the [facility] where the Encounter took place. Date/Time Smoking Status/Tobacco Use Comment [facility] July 09, 2020 02:00 PM VA-TOBACCO FORMER USER [place] [facility] July 09, 2020 02:00 PM VA-TOBACCO QUIT 15 YRS OR MORE [facility] Apr 17, 2019 02:39 PM INPT NO TOBACCO USE IN LAST 30 DAYS [facility] Feb 04, 2019 10:37 AM [place]-TOBACCO NEVER USED [place] [facility] Oct 15, 2018 02:43 PM INPT NO TOBACCO USE IN LAST 30 DAYS [facility] Oct 13, 2018 11:30 PM INPT NO TOBACCO USE IN LAST 30 DAYS [facility] Sep 02, 2018 05:50 PM INPT NO TOBACCO USE IN LAST 30 DAYS [facility] Aug 12, 2018 07:28 PM INPT NO TOBACCO USE IN LAST 30 DAYS [facility] Jan 30, 2018 03:28 PM VA-TOBACCO FORMER USER [place] [facility] Jan 30, 2018 03:28 PM [place]-TOBACCO QUIT 15 YRS OR MORE [facility] May 29, 2017 04:53 PM INPT NO TOBACCO USE IN LAST 30 DAYS [facility] Apr 25, 2017 10:44 PM INPT NO TOBACCO USE IN LAST 30 DAYS [facility] Jan 01, 2017 06:40 PM INPT NO TOBACCO USE IN LAST 30 DAYS [facility] Dec 21, 2016 02:43 PM FORMER TOBACCO USER 7Y OR GREATER [facility] Sep 24, 2013 08:52 AM FORMER TOBACCO USER 7Y OR GREATER [facility] Advance Directives: All historical and current Section Date Range: From patient's date of to the date document was created. This section includes ALL of a patient's completed or amended [place] Advance and Rescinded Directives. The entries below indicate that a directive exists for the patient, but an actual copy is not included with this document. The data comes from all [facility]. Date Advance Directives Provider Source May 29, 2017 CLINICAL WARNING CORNELIO FREITAS [facility] May 16, 2017 ADVANCE DIRECTIVE SERENITY BUENROSTRO [place] [facility] May 16, 2017 ADVANCE DIRECTIVE DISCUSSION [facility] [place] [place] [facility] May 04, 2017 CLINICAL WARNING MAGO DIAMOND [place] [facility] May 04, 2017 CLINICAL WARNING GAEL ROSARIO [facility] Apr 26, 2017 CLINICAL WARNING JENNIFER DE LEON [facility] Jan 01, 2017 CLINICAL WARNING AYDE WELLS [facility] Jun 09, 2004 ADVANCE DIRECTIVE DARYL VILLARREAL [facility] Jun 07, 2004 ADVANCE DIRECTIVE SHERYL HOLLOWAY [facility] Radiology Reports: +/- 30 days of the [...] the Encounter. The data comes from all [facility] facilities. Date/Time Radiology Report Provider Source May 20, 2021 09:03 AM FOOT LEFT 3 VIEWS OR MORE: SEBASTIÁN ROMERO [facility] JESSICA MOJICA [id number] [birth year] 8 M Exm Date: MAY 20, 2021@09:03 Req Phys: DEBRA KERNS Loc: [facility] [id number] [facility] TRIAGE Img Loc: MAIN X-RAY Service: Unknown (Case [id number] COMPLETE) FOOT LEFT 3 VIEWS OR MORE ( RAD Detailed) CPT:04940 Proc Modifiers : WEIGHT BEARING Reason for Study: charcot foot Clinical History: [facility] IS NOT under investigation for COVID-19 or is COVID-19 negative charcot foot Responsible provider name and phon e number to notify for critical findings if other than user placing the order and pager listed below: User placing orders pag er: [phone] LAST CREATININE 0.7 (04/28/21) Report Status: Verified Date Reported: MAY 20, 2021 Date Verified: MAY 20, 2021 Vaccinator E-Sig:/ES/SEBASTIÁN ROMERO MD Report: EXAMINATION: FOOT LEFT 3 VIEWS OR MORE, 2 9:03 AM COMPARISON: None available HISTORY: Reason for Study: charcot foot IS NOT under investigation for COVID-19 or is COVID-19 negative charcot foot Responsible provider name and phon e number to notify for critical findings if other than user placing the order and pager listed below: User placing orders pag er: [phone] LAST CREATININE 0.7 (04/28/21) Impression: 3 nonweightbearing [...] Primary Interpreting Staff: SEBASTIÁN ROMERO MD, RADIOLOGIST (Vaccinator) /JRT May 20, 2021 09:03 AM FOOT RIGHT 3 VIEWS OR MORE: SEBASTIÁN ROMERO [facility] JESSICA MOJICA [id number] -[birth year] 8 M Exm Date: MAY 20, 2021@09:03 Req Phys: DEBRA KERNS Pat Loc: [facility] [id number] [facility] TRIAGE Im Loc: MAIN X-RAY Service: Unknown (Case [id number] COMPLETE) FOOT RIGHT 3 VIEWS OR MORE (RAD Detailed) CPT:40236 Proc Modifiers : WEIGHT BEARING Reason for Study: charcot foot Clinical History: [facility] IS NOT under investigation for COVID-19 or is COVID-19 negative charcot foot Responsible provider name and phon e number to notify for critical findings if other than user placing the order and pager listed below: User placing orders pag er: [phone] LAST CREATININE 0.7 (04/28/21) Report Status: Verified Date Reported: MAY 20, 2021 Date Verified: MAY 20, 2021 Vaccinator E-Sig:/ES/SEBASTIÁN ROMERO MD Report: EXAMINATION: FOOT RIGHT 3 VIEWS OR MORE, 05/21/19 9:03 AM COMPARISON: 08/02/2020 HISTORY: Reason for Study: charcot foot [facility] IS NOT under investigation for COVID-19 or is COVID-19 negative charcot foot Responsible provider name and phon e number to notify for critical findings if other than user placing the order and pager listed below: User placing orders [facility] er: [phone] LAST CREATININE 0.7 (04/28/21) Impression: 1. 3 [...] Primary Interpreting Staff: SEBASTIÁN ROMERO MD, RADIOLOGIST (Vaccinator) /JRT
--- OUTSIDE RECORDS SUMMARY | 2021-12-23 18:07 | XMS_ITS | Encounter Summary ---
:1945 Author Organization [facility] Address [address] [place] [address] Support Name Relationship Address Phone FRANCES GANDARA Unavailable [address] [place] [address] FRANCES GANDARA Unavailable [address] [place] [address] FRANCES GANDARA Unavailable [address] [place] [address] FRANCES GANDARA Unavailable [address] [place] [address] Insurance Providers: All historical and current Section [...] MEDICARE MEDICARE PART Apr 19, PART A [id number] 800 Whit MOJICA (WNR) (M) A 2007 50A [phone] JESSICA MEDICARE MEDICARE PART Apr 19, PART A [id number] 800 Whit [place] (WNR) (M) A 2007 [id number] [phone] JESSICA Selected Encounter This section includes the information on record at [place] for the Encounter. Date/Time Encounter Type Encounter Reason Provider Source Description June 21, 2021 Outpatient SPEECH-LANGUAGE ICD-10-CM R13.12 YOUSUF BURCH 02:01 PM Encounter PATHOLOGY Dysphagia, AN oropharyngeal phase with Provider Comments: Dysphagia, Oropharyngeal Phase IHE Encounter Template Text not used by [facility] Assessments - Encounter Diagnoses This section includes the primary and secondary diagnoses documented for the Encounter. Date/Time Primary/Secondary Diagnosis Name Provider Source Diagnosis June 21, 2021 PRIMARY Dysphagia, LILLIANA BURCH [facility] 02:01 PM oropharyngeal AN HCS phase Plan of Treatment: Future Appointments (+ 6 months) and Future Tests (+/- 45 days) The Plan of Treatment section includes future care activities for the patient from all [place] [facility]. This section includes future appointments and future orders which are active, pending orscheduled.Future Appointments This section includes appointments that were scheduled to occur 6 months from the date of the Encounter, up to a maximum of 20 appointments. The data comes from all [place] treatment facilities. Appointment Date/Time Appointment Type Appointment Facili ty Name June 22, 2021 09:30 AM AMBULATORY - NONE [facility] June 22, 2021 12:30 PM AMBULATORY - NONE [facility] June 22, 2021 01:30 PM AMBULATORY - SURGERY [facility] June 22, 2021 02:30 PM AMBULATORY - NONE [facility] June 27, 2021 12:30 PM AMBULATORY - NONE [facility] June 27, 2021 01:30 PM AMBULATORY - NONE [facility] June 28, 2021 11:00 AM AMBULATORY - NONE [facility] July 04, 2021 12:15 PM AMBULATORY - NONE [facility] July 04, 2021 01:15 PM AMBULATORY - SURGERY [facility] July 06, 2021 10:15 AM AMBULATORY - NONE [facility] July 07, 2021 01:00 PM AMBULATORY - NONE [facility] July 07, 2021 02:00 PM AMBULATORY - SURGERY [facility] July 13, 2021 09:00 AM AMBULATORY - REHAB MEDICINE [facility] July 14, 2021 02:10 PM AMBULATORY - NONE [facility] Jul 21, 2021 09:45 AM AMBULATORY - NONE [facility] Jul 26, 2021 10:45 AM AMBULATORY - NONE [facility] Jul 29, 2021 11:30 AM AMBULATORY - NONE [facility] Jul 29, 2021 01:00 PM AMBULATORY - NONE [facility] Jul 29, 2021 02:00 PM AMBULATORY - MEDICINE [facility] Aug 02, 2021 11:30 AM AMBULATORY - NONE [facility] Active, Pending, and Scheduled Orders This section includes a listing of several types of active, pending, and scheduled orders, including clinic medications orders, diagnostic test orders, procedure orders and consult orders; where the start date of the order is 45 days before the date of the Encounter or 45 days after the date of the Encounter. The data comes from all [place] treatment facilities. Test Date/Time Test Type Test Details Facility Name May 11, 2021 02:31 PM Pharmacy - Clinic Infusion [facility] Order Social History: Smoking Status (Most current) and Tobacco Use (All prior to encounter date) This section includes the most current, and the historical, smoking and tobacco-related health factors from the [place] facility where the Encounter took place.Current Smoking Status This section includes the most current smoking, or tobacco-related health factor, from the [place] facility where the Encounter took place. Date/Time Current Smoking Status Comment Facility Apr 25, 2021 11:00 AM [place]-TOBACCO NEVER USED [place] [facility] Tobacco Use History This section includes a history of the smoking, or tobacco- related health factors, that were collected on or before the date of the Encounter. The data comes from the [facility] where the Encounter took place. Date/Time Smoking Status/Tobacco Use Comment [facility] July 09, 2020 02:00 PM VA-TOBACCO FORMER USER [place] [facility] July 09, 2020 02:00 PM VA-TOBACCO QUIT 15 YRS OR MORE [facility] Apr 17, 2019 02:39 PM INPT NO TOBACCO USE IN LAST 30 DAYS [facility] Feb 04, 2019 10:37 AM [place]-TOBACCO [place] USED [place] [facility] Oct 15, 2018 02:43 PM INPT NO TOBACCO USE IN LAST 30 DAYS [facility] Oct 13, 2018 11:30 PM INPT NO TOBACCO USE IN LAST 30 DAYS [facility] Sep 02, 2018 05:50 PM INPT NO TOBACCO USE IN LAST 30 DAYS [facility] Aug 12, 2018 07:28 PM INPT NO TOBACCO USE IN LAST 30 DAYS [facility] Jan 30, 2018 03:28 PM VA-TOBACCO FORMER USER [facility] Jan 30, 2018 03:28 PM [place]-TOBACCO QUIT 15 YRS OR MORE [facility] May 29, 2017 04:53 PM INPT NO TOBACCO USE IN LAST 30 DAYS [facility] Apr 25, 2017 10:44 PM INPT NO TOBACCO USE IN LAST 30 DAYS [facility] Jan 01, 2017 06:40 PM INPT NO TOBACCO USE IN LAST 30 DAYS [facility] Dec 21, 2016 02:43 PM FORMER TOBACCO USER 7Y OR GREATER [facility] Sep 24, 2013 08:52 AM FORMER TOBACCO USER 7Y OR GREATER [facility] Advance Directives: All historical and current Section Date Range: From patient's date of to the date document was created. This section includes ALL of a patient's completed or amended [place] Advance and Rescinded Directives. The entries below indicate that a directive exists for the patient, but an actual copy is not included with this document. The data comes from all [place] facilities. Date Advance Directives Provider Source May 29, 2017 CLINICAL WARNING CORNELIO FREITAS [facility] May 16, 2017 ADVANCE DIRECTIVE SERENITY BUENROSTRO [facility] May 16, 2017 ADVANCE DIRECTIVE DISCUSSION SERENITY BUENROSTRO [place] [facility] May 04, 2017 CLINICAL WARNING MAGO DIAMOND [facility] May 04, 2017 CLINICAL WARNING GAEL ROSARIO [facility] Apr 26, 2017 CLINICAL WARNING JENNIFER DE LEON [facility] Jan 01, 2017 CLINICAL WARNING AYDE WELLS [facility] Jun 09, 2004 ADVANCE DIRECTIVE DARYL VILLARREAL [facility] Jun 07, 2004 ADVANCE DIRECTIVE SHERYL HOLLOWAY [facility]
--- OUTSIDE RECORDS SUMMARY | 2021-12-23 18:07 | XMS_ITS | Encounter Summary ---
:1945 Author Organization [facility] Address [address] [place] [address] Support Name Relationship Address Phone FRANCES GANDARA Unavailable [address] [place] [address] FRANCES GANDARA Unavailable [address] [place] [address] FRANCES GANDARA Unavailable [address] [place] [address] FRANCES GANDARA Unavailable [address] [place] [address] Insurance Providers: All historical and current Section [...] MEDICARE MEDICARE PART Apr 19, PART A [id number] [place] (WNR) (M) A 2007 50A [phone] JESSICA MEDICARE MEDICARE PART Apr 19, PART A [id number] 800 [place]SONWhit ONOFRE (WNR) (M) A 2007 [id number] [phone] JESSICA Selected Encounter This section includes the information on record at [place] for the Encounter. Date/Time Encounter Type Encounter [...] this document. The data comes from all [place] facilities. Date Advance Directives Provider Source May 29, 2017 CLINICAL WARNING CORNELIO FREITAS [facility] May 16, 2017 ADVANCE DIRECTIVE SERENITY BUENROSTRO [facility] May 16, 2017 ADVANCE DIRECTIVE DISCUSSION SERENITY [place]O [place] [facility] May 04, 2017 CLINICAL WARNING MAGO DIAMOND [facility] May 04, 2017 CLINICAL WARNING GAEL ROSARIO [facility] Apr 26, 2017 CLINICAL WARNING JENNIFER DE LEON [facility] Jan 01, 2017 CLINICAL WARNING AYDE WELLS [facility] Jun 09, 2004 ADVANCE DIRECTIVE DARYL VILLARREAL [facility] Jun 07, 2004 ADVANCE DIRECTIVE SHERYL HOLLOWAY [facility]
--- OUTSIDE RECORDS SUMMARY | 2021-12-23 18:08 | XMS_ITS | Encounter Summary ---
:1945 Author Organization [facility] Address [address] [place] [address] Support Name Relationship Address Phone FRANCES GANDARA Unavailable [address] [place] [address] FRANCES GANDARA Unavailable [address] [place] [address] FRANCES GANDARA Unavailable [address] [place] [address] FRANCES GANDARA Unavailable [address] [place] [address] Insurance Providers: All historical and current Section [...] MEDICARE MEDICARE PART Apr 19, PART A [id number] 800 Whit MOJICA (WNR) (M) A 2007 50A [phone] JESSICA MEDICARE MEDICARE PART Apr 19, PART A [id number] 800 Whit MOJICA (WNR) (M) A 2007 [id number] [phone] JESSICA Selected Encounter This section includes the information on record at [place] for the Encounter. Date/Time Encounter Type Encounter Description Reason Provider Source June 22, 2021 12:54 Outpatient Encounter COMMUNITY CARE PM CONSULT IHE [...] appointments. The data comes from all [facility]. Appointment Date/Time Appointment Type Appointment Facili ty Name June 27, 2021 12:30 PM AMBULATORY - NONE [facility] June 27, 2021 01:30 PM AMBULATORY - NONE [facility] June 28, 2021 11:00 AM AMBULATORY - NONE [facility] July 04, 2021 12:15 PM AMBULATORY - NONE [facility] July 04, 2021 01:15 PM AMBULATORY - SURGERY [facility] July 06, 2021 10:15 AM AMBULATORY - NONE [facility] July 07, 2021 01:00 PM AMBULATORY - NONE [facility] July 07, 2021 02:00 PM AMBULATORY - SURGERY [facility] July 13, 2021 09:00 AM AMBULATORY - REHAB MEDICINE [facility] July 14, 2021 02:10 PM AMBULATORY - NONE [facility] Jul 21, 2021 09:45 AM AMBULATORY - NONE [facility] Jul 26, 2021 10:45 AM AMBULATORY - NONE [facility] Jul 29, 2021 11:30 AM AMBULATORY - NONE [facility] Jul 29, 2021 01:00 PM AMBULATORY - NONE [facility] Jul 29, 2021 02:00 PM AMBULATORY - MEDICINE [facility] Aug 02, 2021 11:30 AM AMBULATORY - NONE [facility] Aug 04, 2021 01:30 PM AMBULATORY - NONE [facility] Aug 11, 2021 12:30 PM AMBULATORY - NONE [facility] Aug 18, 2021 08:00 AM AMBULATORY - NONE [facility] Aug 19, 2021 10:30 AM AMBULATORY - NONE [facility] Active, Pending, and Scheduled Orders This section includes a listing of several types of active, pending, and scheduled orders, including clinic medications orders, diagnostic test orders, procedure orders and consult orders; where the start date of the order is 45 days before the date of the Encounter or 45 days after the date of the Encounter. The data comes from all [facility]. Test Date/Time Test Type Test Details Facility Name May 11, 2021 02:31 PM Pharmacy - Clinic Infusion [facility] Order Social History: Smoking Status (Most [...] 2021 11:00 AM [place]-TOBACCO NEVER USED [place] [facility] Tobacco Use History This section includes a history of the smoking, or tobacco- related health factors, that were collected on or before the date of the Encounter. The data comes from the [facility] where the Encounter took place. Date/Time Smoking Status/Tobacco Use Comment [facility] July 09, 2020 02:00 PM VA-TOBACCO FORMER USER [place] [facility] July 09, 2020 02:00 PM VA-TOBACCO QUIT 15 YRS OR MORE [facility] Apr 17, 2019 02:39 PM INPT NO TOBACCO USE IN LAST 30 DAYS [facility] Feb 04, 2019 10:37 AM [place]-TOBACCO NEVER USED [place] [facility] Oct 15, 2018 02:43 PM [...] PM VA-TOBACCO FORMER USER [place] [facility] Jan 30, 2018 03:28 PM [...] 29, 2017 CLINICAL WARNING CORNELIO FREITASAPOLI S [facility] May 16, 2017 ADVANCE DIRECTIVE SERENITY BUENROSTRO [facility] May 16, 2017 ADVANCE DIRECTIVE DISCUSSION SER[place]ITY [place]STRO [place] [facility] May 04, 2017 CLINICAL WARNING MAGO DIAMOND [facility] May 04, 2017 CLINICAL WARNING GAEL ROSARIO [facility] Apr 26, 2017 CLINICAL WARNING JACKLYNSAMSON GonzalezJENNIFER P [facility] Jan 01, 2017 CLINICAL WARNING AYDE WELLS [facility] Jun 09, 2004 ADVANCE DIRECTIVE PHILDARYL Cortes [facility] Jun 07, 2004 ADVANCE DIRECTIVE SHERYL HOLLOWAY [facility] Encounter Notes: All associated encounter notes This section contains the clinical notes associated to the Encounter. Date/Time Encounter Note(s) Provider Source June 22, 2021 12:54 PM NONVA NOTE: EDMOND MUNOZ [facility] LOCAL TITLE: COMMUNITY CARE-CARE COORDINATION P [facility] NOTE STANDARD TITLE: NONVA NOTE DATE OF NOTE: JUNE 22, 2021@12:54 ENTRY DATE: JUNE 22, 2021@12:55:01 AUTHOR: EDMOND MUNOZ EXP COSIGNER: URGENCY: STATUS: COMPLETED [facility] contacted [facility] stating that Maryjane wynn is requesting services, advised provider to fax over RFAS prior to scheduling to ensure care is properly covered. /vinicio/ EDMOND MUNOZ AMSA Signed: 06/22/2021 12:56
--- OUTSIDE RECORDS SUMMARY | 2021-12-23 18:10 | XMS_ITS | Encounter Summary ---
:1945 Author Organization [facility] Address [address] [place] [address] Support Name Relationship Address Phone FRANCES GANDARA Unavailable [address] [place] [address] FRANCES GANDARA Unavailable [address] [place] [address] FRANCES GANDARA Unavailable [address] [place] [address] FRANCES GANDARA Unavailable [address] [place] [address] Insurance Providers: All historical and current Section [...] MEDICARE MEDICARE PART Apr 19, PART A [id number] 800 Whit MOJICA (WNR) (M) A 2007 50A [phone] JESSICA MEDICARE MEDICARE PART Apr 19, PART A [id number] 800 Whit MOJICA (WNR) (M) A 2007 [id number] [phone] JESSICA Selected Encounter This section includes the information on record at [place] for the Encounter. Date/Time Encounter Type Encounter Reason Provider Source Description June 22, 2021 DEBRIDE NAIL 1-5 PODIATRY ICD-10-CM L60.3 BRITTANEY CASAREZ 01:30 PM Nail dystrophy with Provider Comments: Nail dystrophy IHE Encounter Template Text not used by VA Assessments - Encounter Diagnoses This section includes the primary and secondary diagnoses documented for the Encounter. Date/Time Primary/Secondary Diagnosis Name Provider Source Diagnosis June 22, 2021 PRIMARY Nail dystrophy BRITTANEY CASAREZ 02:08 PM [facility] Plan of Treatment: Future Appointments (+ 6 months) and Future Tests (+/- 45 days) The Plan of Treatment section includes future care activities for the patient from all [place] [facility]. This section includes future appointments and future orders which are active, pending orscheduled.Future Appointments This section includes appointments that were scheduled to occur 6 months from the date of the Encounter, up to a maximum of 20 appointments. The data comes from all [place] treatment facilities. Appointment Date/Time Appointment Type Appointment Facili ty Name June 27, 2021 12:30 PM AMBULATORY - NONE [facility] June 27, 2021 01:30 PM AMBULATORY - NONE [facility] June 28, 2021 11:00 AM AMBULATORY - NONE [facility] July 04, 2021 12:15 PM AMBULATORY - NONE [facility] July 04, 2021 01:15 PM AMBULATORY - SURGERY [facility] July 06, 2021 10:15 AM AMBULATORY - NONE [facility] July 07, 2021 01:00 PM AMBULATORY - NONE [facility] July 07, 2021 02:00 PM AMBULATORY - SURGERY [facility] July 13, 2021 09:00 AM AMBULATORY - REHAB MEDICINE [facility] July 14, 2021 02:10 PM AMBULATORY - NONE [facility] Jul 21, 2021 09:45 AM AMBULATORY - NONE [facility] Jul 26, 2021 10:45 AM AMBULATORY - NONE [facility] Jul 29, 2021 11:30 AM AMBULATORY - NONE [facility] Jul 29, 2021 01:00 PM AMBULATORY - NONE [facility] Jul 29, 2021 02:00 PM AMBULATORY - MEDICINE [facility] Aug 02, 2021 11:30 AM AMBULATORY - NONE [facility] Aug 04, 2021 01:30 PM AMBULATORY - NONE [facility] Aug 11, 2021 12:30 PM AMBULATORY - NONE [facility] Aug 18, 2021 08:00 AM AMBULATORY - NONE [facility] Aug 19, 2021 10:30 AM AMBULATORY - NONE [facility] Active, [...] data comes from all [place] treatment facilities. Test Date/Time Test Type Test Details Facility Name May 11, 2021 02:31 PM Pharmacy - Clinic Infusion [facility] Order Social History: Smoking Status (Most current) and Tobacco Use (All prior to encounter date) This section includes the most current, and the historical, smoking and tobacco-related health factors from the [place] facility where the Encounter took place.Current Smoking Status This section includes the most current smoking, or tobacco-related health factor, from the [place] facility where the Encounter took place. Date/Time Current Smoking Status Comment Facility Apr 25, 2021 11:00 AM [place]-TOBACCO NEVER USED [place] [facility] Tobacco Use History This section includes a history of the smoking, or tobacco- related health factors, that were collected on or before the date of the Encounter. The data comes from the [place] facility where the Encounter took place. Date/Time Smoking Status/Tobacco Use Comment [facility] July 09, 2020 02:00 PM VA-TOBACCO FORMER USER [place] [facility] July 09, 2020 02:00 PM VA-TOBACCO QUIT 15 YRS OR MORE [facility] Apr 17, 2019 02:39 PM INPT NO TOBACCO USE IN LAST 30 DAYS [facility] Feb 04, 2019 10:37 AM [place]-TO[place]ACCO [place] USED [place] [facility] Oct 15, 2018 [...] 03:28 PM VA-TOBACCO FORMER USER [place] [facility] Jan 30, 2018 03:28 PM [place]-TOBACCO QUIT 15 YRS OR MORE [facility] [...] this document. The data comes from all [place] facilities. Date Advance Directives Provider Source May 29, 2017 CLINICAL WARNING CORNELIO FREITAS PIERREI S [facility] May 16, 2017 ADVANCE DIRECTIVE CHITRASERENITY A [facility] May 16, 2017 ADVANCE DIRECTIVE DISCUSSION CHITRASERENITY A [place] [facility] May 04, 2017 CLINICAL WARNING LOBOANGELICABRIGITTERENAE Shashank [facility] May 04, 2017 CLINICAL WARNING GAEL ROSARIO [facility] Apr 26, 2017 CLINICAL WARNING JENNIFER DE LEON [facility] Jan 01, 2017 CLINICAL WARNING AYDE WELLS [facility] Jun 09, 2004 ADVANCE DIRECTIVE DARYL VILLARREAL [facility] Jun 07, 2004 ADVANCE DIRECTIVE SHERYL HOLLOWAY [facility] Encounter Notes: All associated encounter notes This section contains the clinical notes associated to the Encounter. Date/Time Encounter Note(s) Provider Source June 22, 2021 02:05 PM PODIATRY NURSING NOTE: BRITTANEY CASAREZ [facility] LOCAL TITLE: PODIATRY CLINIC NURSING NOTE STANDARD TITLE: PODIATRY NURSING NOTE DATE OF NOTE: JUNE 22, 2021@14:05 ENTRY DATE: JUNE 22, 2021@14:06:06 AUTHOR: BRITTANEY CASAREZ EXP COSIGNER: URGENCY: STATUS: COMPLETED Routine Nail Care Description Nails 1-5 L foot elongated thickening [id number] Left foot only due to R foot and lower leg wrap ed up from recent surgery. /vinicio/ BRITTANEY CASAREZ CAUSTIC PUMP OPERATOR LICENCE PRACTCAL NURSE SPEC. CARE Signed: 06/22/2021 14:08
--- OUTSIDE RECORDS SUMMARY | 2021-12-23 18:11 | XMS_ITS | Encounter Summary ---
:1945 Author Organization Department [facility] rs Address [address] [place] [address] Support Name Relationship Address Phone FRANCES GANDARA Unavailable [address] [place] [address] FRANCES GANDARA Unavailable [address] [place] [address] FRANCES GANDARA Unavailable [address] [place] [address] FRANCES GANDARA Unavailable [address] [place] [address] Insurance Providers: All historical and current Section [...] MEDICARE MEDICARE PART Apr 19, PART A [id number] Whit MOJICA (WNR) (M) A 2007 50A [phone] JESSICA MEDICARE MEDICARE PART Apr 19, PART A [id number] 800 Whit MOJICA (WNR) (M) A 2007 [id number] [phone] JESSICA Selected Encounter This section includes the information on record at [place] for the Encounter. Date/Time Encounter Type Encounter Description Reason Provider Source June 22, 2021 12:30 Outpatient Encounter ADMIN MORE DUMONT PM (JONATHONCT) IHE Encounter Template Text not used by [place] Plan of Treatment: Future Appointments (+ 6 [...] appointments. The data comes from all [facility]. Appointment Date/Time Appointment Type Appointment Facili ty Name June 27, 2021 12:30 PM AMBULATORY - NONE [facility] June 27, 2021 01:30 PM AMBULATORY - NONE [facility] June 28, 2021 11:00 AM AMBULATORY - NONE [facility] July 04, 2021 12:15 PM AMBULATORY - NONE [facility] July 04, 2021 01:15 PM AMBULATORY - SURGERY [facility] July 06, 2021 10:15 AM AMBULATORY - NONE [facility] July 07, 2021 01:00 PM AMBULATORY - NONE [facility] July 07, 2021 02:00 PM AMBULATORY - SURGERY [facility] S July 13, 2021 09:00 AM AMBULATORY - REHAB [facility]ICINE [facility] July 14, 2021 02:10 PM AMBULATORY - NONE [facility] Jul 21, 2021 09:45 AM AMBULATORY - NONE [facility] Jul 26, 2021 10:45 AM AMBULATORY - NONE [facility] Jul 29, 2021 11:30 AM AMBULATORY - NONE [facility] Jul 29, 2021 01:00 PM AMBULATORY - NONE [facility] Jul 29, 2021 02:00 PM AMBULATORY - MEDICINE [facility] Aug 02, 2021 11:30 AM AMBULATORY - NONE [facility] Aug 04, 2021 01:30 PM AMBULATORY - NONE [facility] Aug 11, 2021 12:30 PM AMBULATORY - NONE [facility] Aug 18, 2021 08:00 AM AMBULATORY - NONE [facility] Aug 19, 2021 10:30 AM AMBULATORY - NONE [facility] Active, Pending, and Scheduled Orders This section includes a listing of several types of active, pending, and scheduled orders, including clinic medications orders, diagnostic test orders, procedure orders and consult orders; where the start date of the order is 45 days before the date of the Encounter or 45 days after the date of the Encounter. The data comes from all [facility]. Test Date/Time Test Type Test Details Facility Name May 11, 2021 02:31 PM Pharmacy - Clinic Infusion [facility] Order Social History: Smoking Status (Most current) and Tobacco Use (All prior to encounter date) This section includes the most current, and the historical, smoking and tobacco-related health factors from the [facility] where the Encounter took place.Current Smoking Status This section includes the most current smoking, or tobacco-related health factor, from the [place] facility where the Encounter took place. Date/Time [...] 2020 02:00 PM [facility] July 09[facility] 2020 02:00 PM VA-TOBACCO QUIT 15 YRS OR MORE [facility] Apr 17, 2019 02:39 PM INPT NO TOBACCO USE IN LAST 30 DAYS [facility] Feb 04, 2019 10:37 AM [place] [facility] [facility] Oct 15, 2018 02:43 PM INPT NO TOBACCO USE IN LAST 30 DAYS [facility] Oct 13, 2018 11:30 PM INPT NO TOBACCO USE IN LAST 30 DAYS [facility] Sep 02, 2018 05:50 PM INPT NO TOBACCO USE IN LAST 30 DAYS [facility] Aug 12, 2018 07:28 PM INPT NO TOBACCO USE IN LAST 30 DAYS [facility] Jan 30, 2018 03:28 PM [facility] Jan 30, 2018 03:28 PM VA-TOBACCO QUIT 15 YRS OR MORE [facility] May 29, 2017 04:53 PM INPT NO TOBACCO USE IN LAST 30 DAYS [facility] Apr 25, 2017 10:44 PM INPT NO TOBACCO USE IN LAST 30 DAYS [facility] Jan 01, 2017 06:40 PM INPT NO TOBACCO USE IN LAST 30 DAYS [facility] Dec 21, 2016 02:43 PM FORMER TOBACCO USER 7Y OR GREATER [facility] Sep 24, 2013 08:52 AM FORMER TOBACCO USER 7Y OR GREATER [facility] Advance Directives: All historical and current Section Date Range: From patient's date of to the date document was created. This section includes ALL of a patient's completed or amended [place] Advance and Rescinded Directives. The entries below [...] 16, 2017 ADVANCE DIRECTIVE DISCUSSION [facility] May 04, 2017 CLINICAL WARNING MAGO DIAMOND [facility] May 04, 2017 CLINICAL WARNING GAEL ROSARIO [facility] Apr 26, 2017 CLINICAL WARNING JENNIFER DE LEON [facility] Jan 01, 2017 CLINICAL WARNING AYDE WELLS [facility] Jun 09, 2004 ADVANCE DIRECTIVE DARYL VILLARREAL [facility] Jun 07, 2004 ADVANCE DIRECTIVE SHERYL HOLLOWAY [facility]
--- OUTSIDE RECORDS SUMMARY | 2021-12-23 18:14 | XMS_ITS | Encounter Summary ---
:1945 Author Organization Department [facility] rs Address [address] [place] [address] Support Name Relationship Address Phone FRANCES GANDARA Unavailable [address] [place] [address] FRANCES GANDARA Unavailable [address] [place] [address] FRANCES GANDARA Unavailable [address] [place] [address] FRANCES GANDARA Unavailable [address] [place] [address] Insurance Providers: All historical and current Section [...] MEDICARE MEDICARE PART Apr 19, PART A [id number] 800 Whit MOJICA (WNR) (M) A 2007 50A [phone] JESSICA MEDICARE MEDICARE PART Apr 19, PART A [id number] 800 Whit MOJICA (WNR) (M) A 2007 [id number] [phone] JESSICA Selected Encounter This section includes the information on record at [place] for the Encounter. Date/Time Encounter Type Encounter Description Reason Provider Source June 27, 2021 12:30 Outpatient Encounter ADMIN MORE DUMONT PM (JONATHONCT) IHE Encounter Template Text not used by [place] Plan of Treatment: Future Appointments (+ 6 [...] 20 appointments. The data comes from all [place] treatment facilities. Appointment Date/Time Appointment Type Appointment Facili ty Name June 28, 2021 11:00 AM AMBULATORY - NONE [facility] July 04, 2021 12:15 PM AMBULATORY - NONE [facility] July 04, 2021 01:15 PM AMBULATORY - SURGERY [facility] July 06, 2021 10:15 AM AMBULATORY - NONE [facility] July 07, 2021 01:00 PM AMBULATORY - NONE [facility] July 07, 2021 02:00 PM AMBULATORY - SURGERY [facility] July 13, 2021 09:00 AM AMBULATORY - REHAB MEDICINE [facility] July 14, 2021 02:10 PM AMBULATORY - NONE [facility] Jul 21, 2021 09:45 AM AMBULATORY - NONE [facility] Jul 26, 2021 10:45 AM AMBULATORY - NONE [facility] Jul 29, 2021 11:30 AM AMBULATORY - NONE [facility] Jul 29, 2021 01:00 PM AMBULATORY - NONE [facility] Jul 29, 2021 02:00 PM AMBULATORY - MEDICINE [facility] Aug 02, 2021 11:30 AM AMBULATORY - NONE [facility] Aug 04, 2021 01:30 PM AMBULATORY - NONE [facility] Aug 11, 2021 12:30 PM AMBULATORY - NONE [facility] Aug 18, 2021 08:00 AM AMBULATORY - NONE [facility] Aug 19, 2021 10:30 AM AMBULATORY - NONE [facility] Aug 23, 2021 12:00 PM AMBULATORY - NONE [facility] Aug 23, 2021 01:00 PM AMBULATORY - NONE [facility] Social History: Smoking Status (Most current) and Tobacco Use (All prior to encounter date) This section includes the most current, and the historical, smoking and tobacco-related health factors from the [place] facility where the Encounter took place.Current Smoking Status This section includes the most current smoking, or tobacco-related health factor, from the [place] facility where the Encounter took place. Date/Time Current Smoking Status [facility] Facility Apr 25, 2021 11:00 AM VA-TOBACCO NEVER USED [facility] Tobacco Use History This section includes a history of the smoking, or tobacco- related health factors, that were collected on or before the date of the Encounter. The data comes from the [place] facility where the Encounter took place. Date/Time Smoking Status/Tobacco Use Comment Facil ity July 09, 2020 02:00 PM [facility] July 09, 2020 02:00 PM VA-TOBACCO QUIT 15 YRS OR MORE [facility] Apr 17, 2019 02:39 PM INPT NO TOBACCO USE IN LAST 30 DAYS [facility] Feb 04, 2019 10:37 AM VA-TOBACCO NEVER USED [facility] Oct 15, 2018 02:43 PM INPT NO TOBACCO USE IN LAST 30 DAYS [facility] Oct 13, 2018 11:30 PM INPT NO TOBACCO USE IN LAST 30 DAYS [facility] Sep 02, 2018 05:50 PM INPT NO TOBACCO USE IN LAST 30 DAYS [facility] Aug 12, 2018 07:28 PM INPT NO TOBACCO USE IN LAST 30 DAYS [facility] Jan 30, 2018 03:28 PM VA-TOBACCO FORMER USER [facility] Jan 30, 2018 03:28 PM VA-TOBACCO QUIT 15 YRS OR MORE [facility] May 29, 2017 04:53 PM INPT NO TOBACCO USE IN LAST 30 DAYS [facility] Apr 25, 2017 10:44 PM INPT NO TOBACCO USE IN LAST 30 DAYS [facility] Jan 01, 2017 06:40 PM INPT NO TOBACCO USE IN LAST 30 DAYS [facility] Dec 21, 2016 02:43 PM FORMER TOBACCO USER 7Y OR GREATER [facility] Sep 24, 2013 08:52 AM FORMER TOBACCO USER 7Y OR GREATER [facility] Advance Directives: All historical and current Section Date Range: From patient's date of to the date document was created. This section includes ALL of a patient's completed or amended [place] Advance and Rescinded Directives. The entries below indicate that a directive exists for the patient, but an actual copy is not included with this document. The data comes from all [place] facilities. Date Advance Directives Provider Source May 29, 2017 CLINICAL WARNING CORNELIO FREITAS [facility] May 16, 2017 ADVANCE DIRECTIVE SERENITY BUENROSTRO [facility] May 16, 2017 ADVANCE DIRECTIVE DISCUSSION SERENITY [place]STRO [place] [facility] May 04, 2017 CLINICAL WARNING MAGO DIAMOND [facility] May 04, 2017 CLINICAL WARNING GAEL ROSARIO [facility] Apr 26, 2017 CLINICAL WARNING JENNIFER DE LEON [facility] Jan 01, 2017 CLINICAL WARNING AYDE WELLS [facility] Jun 09, 2004 ADVANCE DIRECTIVE DARYL VILLARREAL [facility] Jun 07, 2004 ADVANCE DIRECTIVE SHERYL HOLLOWAY [facility]
--- OUTSIDE RECORDS SUMMARY | 2021-12-23 18:15 | XMS_ITS | Encounter Summary ---
:1945 Author Organization [facility] Address [address] [place] [address] Support Name Relationship Address Phone FRANCES GANDARA Unavailable [address] [place] [address] FRANCES GANDARA Unavailable [address] [place] [address] FRANCES GANDARA Unavailable [address] [place] [address] FRANCES GANDARA Unavailable [address] [place] [address] Insurance Providers: All historical and current Section [...] MEDICARE MEDICARE PART Apr 19, PART A [id number] 800 Whit MOJICA (WNR) (M) A 2007 50A [id number] JESSICA MEDICARE MEDICARE PART Apr 19, PART A [id number] 800 Whit MOJICA (WNR) (M) A 2007 [id number] JESSICA Selected Encounter This section includes the information on record at [place] for the Encounter. Date/Time Encounter Type Encounter Reason Provider Source Description June 27, 2021 ORTHOTIC PROSTHETICS/ORTHOT ICD-10-CM REID HUTCHINS 01:30 PM MGMT&TRAING 1ST ICS E11.621 Type 2 S J ENC diabetes mellitus with foot ulcer with Provider Comments: Type 2 Diabetes Mellitus with Foot Ulcer IHE Encounter Template Text not used by [place] Assessments - Encounter Diagnoses This section includes the primary and secondary diagnoses documented for the Encounter. Date/Time Primary/Secondary Diagnosis Name Provider Source Diagnosis June 28, 2021 PRIMARY Type 2 diabetes REID HUTCHINS MERARY S MD 06:05 AM mellitus with S [facility] foot ulcer Plan of Treatment: Future Appointments (+ 6 months) and Future Tests (+/- 45 days) The Plan of Treatment section includes future care activities for the patient from all [place] [facility]. This section includes future appointments and future orders which are active, pending orscheduled.Future Appointments This section includes appointments that were scheduled to occur 6 months from the date of the Encounter, up to a maximum of 20 appointments. The data comes from all [place] treatment facilities. Appointment Date/Time Appointment Type Appointment Facili ty Name June 28, 2021 11:00 AM AMBULATORY - NONE [facility] July 04, 2021 12:15 PM AMBULATORY - NONE [facility] July 04, 2021 01:15 PM AMBULATORY - SURGERY [facility] S July 06, 2021 10:15 AM AMBULATORY - NONE [facility] July 07, 2021 01:00 PM AMBULATORY - NONE [facility] July 07, 2021 02:00 PM AMBULATORY - SURGERY [facility] July 13, 2021 09:00 AM AMBULATORY - REHAB MEDICINE [facility] July 14, 2021 02:10 PM AMBULATORY - NONE [facility] Jul 21, 2021 09:45 AM AMBULATORY - NONE [facility] Jul 26, 2021 10:45 AM AMBULATORY - NONE [facility] Jul 29, 2021 11:30 AM AMBULATORY - NONE [facility] Jul 29, 2021 01:00 PM AMBULATORY - NONE [facility] Jul 29, 2021 02:00 PM AMBULATORY - MEDICINE [facility] Aug 02, 2021 11:30 AM AMBULATORY - NONE [facility] Aug 04, 2021 01:30 PM AMBULATORY - NONE [facility] Aug 11, 2021 12:30 PM AMBULATORY - NONE [facility] Aug 18, 2021 08:00 AM AMBULATORY - NONE [facility] Aug 19, 2021 10:30 AM AMBULATORY - NONE [facility] Aug 23, 2021 12:00 PM AMBULATORY - NONE [facility] Aug 23, 2021 01:00 PM AMBULATORY - NONE [facility] Social History: Smoking Status (Most current) and Tobacco Use (All prior to encounter date) This section includes the most current, and the historical, smoking and tobacco-related health factors from the [place] facility where the Encounter took place.Current Smoking Status This section includes the most current smoking, or tobacco-related health factor, from the [place] facility where the Encounter took place. Date/Time Current Smoking Status Comment Facility Apr 25, 2021 11:00 AM VA-TOBACCO NEVER USED [place] [facility] [facility] Tobacco Use History This section includes a history of the smoking, or tobacco- related health factors, that were collected on or before the date of the Encounter. The data comes from the [facility] where the Encounter took place. Date/Time Smoking Status/Tobacco Use Comment [facility] July 09, 2020 02:00 PM VA-TOBACCO FORMER USER [place] [facility] July 09, 2020 02:00 PM VA-TOBACCO QUIT [address] [facility] Apr 17, 2019 02:39 PM INPT NO TOBACCO USE IN LAST [address] [facility] Feb 04, 2019 10:37 AM [place]-TOBACCO NEVER USED [place] [facility] Oct 15, 2018 02:43 PM INPT NO TOBACCO USE IN LAST [address] [facility] Oct 13, 2018 11:30 PM INPT NO TOBACCO USE IN LAST [address] [facility] Sep 02, 2018 05:50 PM INPT NO TOBACCO USE IN LAST [address] [facility] Aug 12, 2018 07:28 PM INPT NO TOBACCO USE IN LAST [address] [facility] Jan 30, 2018 03:28 PM VA-TOBACCO FORMER USER [place] [facility] Jan 30, 2018 03:28 PM VA-TOBACCO QUIT [address] [facility] May 29, 2017 04:53 PM INPT NO TOBACCO USE IN LAST [address] [facility] Apr 25, 2017 10:44 PM INPT NO TOBACCO USE IN LAST [address] [facility] Jan 01, 2017 06:40 PM INPT NO TOBACCO USE IN LAST [address] [facility] Dec 21, 2016 02:43 PM FORMER TOBACCO USER 7Y OR GRE[address] [facility] Sep 24, 2013 08:52 AM FORMER TOBACCO USER 7Y OR [address] [facility] Advance Directives: All historical and current Section Date Range: From patient's date of to the date document was created. This section includes ALL of a patient's completed or amended [place] Advance and Rescinded Directives. The entries below indicate that a directive exists for the patient, but an actual copy is not included with this document. The data comes from all [facility]. Date Advance Directives Provider Source May 29, 2017 CLINICAL WARNING [place] Teodora Cordova [facility] May 16, 2017 ADVANCE DIRECTIVE SERENITY BUENROSTRO [facility] May 16, 2017 ADVANCE DIRECTIVE DISCUSSION [place] [facility] May 04, 2017 CLINICAL WARNING MAGO DIAMOND [facility] May 04, 2017 CLIN[address] GAEL ROSARIO [facility] Apr 26, 2017 CLINICAL WARNING JENNIFER DE LEON [facility] Jan 01, 2017 CLINICAL WARNING WELLSAYDE HAGEN [facility] Jun 09, 2004 ADVANCE DIRECT[address] DARYL VILLARREAL [facility] Jun 07, 2004 ADVANCE DIRECTIVE SHERYL HOLLOWAY [facility] Encounter Notes: All associated encounter notes This section contains the clinical notes associated to the Encounter. Date/Time Encounter Note(s) Provider Source June 27, 2021 01:30 PM ORTHOTICS PROSTHETICS CONSULT: PING HUTCHINS [facility] LOCAL TITLE: PROSTHETICS CONSULT STANDARD TITLE: ORTHOTICS PROSTHETICS CONSULT DATE OF NOTE: JUNE 27, 2021@13:30 ENTRY DATE: JUNE 28, 2021@05:56:52 AUTHOR: TRACY HUTCHINS EXP COSIGNER: URGENCY: STATUS: COMPLETED Diabetes (E11.621) The Pt presents today due to the custodial t old him he had an appointment with prosthetics. The Pt's right foot is still in a post-surgical bandage & he is still in the healing stage. At this time the Pt is not ready for anything that can be done & will contact us when he is he aled up for re-casting or modifications to his custom FO's. EDUCATION: Education was provided to patient dur ing this encounter. Patient indicated readiness to learn about educational i nformation re: the following topics: Additional education training is not indicated. Patient indicates readiness to learn, verbalizes understanding, agreement and satisfaction with the treatment plan. Denies fur ther questions. If necessary, patient to be rescheduled upon rec eipt or completed fabrication of ordered item(s)/device(s). /vinicio/ TRACY HUTCHINS LINE PALLETIZER Signed: 06/28/2021 06:06
--- OUTSIDE RECORDS SUMMARY | 2021-12-23 18:17 | XMS_ITS | Encounter Summary ---
:1945 Author Organization [facility] Address [address] [place] [id number] Support Name Relationship Address Phone FRANCES GANDARA Unavailable [address] [place] [address] FRANCES GANDARA Unavailable [address] [place] [address] FRANCES GANDARA Unavailable [address] [place] [address] FRANCES GANDARA Unavailable [address] [place] [address] Insurance Providers: All historical and current Section [...] MEDICARE MEDICARE PART Apr 19, PART A [id number] 800 Whit MOJICA (WNR) (M) A 2007 [id number] [phone] JESSICA MEDICARE MEDICARE PART Apr 19, PART A [id number] Whit MOJICA (WNR) (M) A 2007 50A [phone] JESSICA Selected Encounter This section includes the information on record at MD for the Encounter. Date/Time Encounter Type Encounter Description Reason Provider Source June 28, 2021 03:14 Outpatient Encounter COMMUNITY CARE PM CONSULT IHE Encounter Template Text not used by MD Plan of Treatment: Future Appointments (+ 6 [...] Date/Time Appointment Type Appointment Facili ty Name July 04, 2021 12:15 PM AMBULATORY - NONE [facility] July 04, 2021 01:15 PM AMBULATORY - SURGERY [facility] July 06, 2021 10:15 AM AMBULATORY - NONE [facility] July 07, 2021 01:00 PM AMBULATORY - NONE [facility] July 07, 2021 02:00 PM AMBULATORY - SURGERY [facility] July 13, 2021 09:00 AM AMBULAT[facility] July 14, 2021 02:10 PM AMBULATORY - NONE [facility] Jul 21, 2021 09:45 AM AMBULATORY - NONE [facility] Jul 26, 2021 10:45 AM AMBULATORY - NONE [facility] Jul 29, 2021 11:30 AM AMBULATORY - NONE [facility] Jul 29, 2021 01:00 PM AMBULATORY - NONE [facility] Jul 29, 2021 02:00 PM AMBULATORY - MEDICINE [facility] Aug 02, 2021 11:30 AM AMBULATORY - NONE [facility] Aug 04, 2021 01:30 PM AMBULATORY - NONE [facility] Aug 11, 2021 12:30 PM AMBULATORY - NONE [facility] Aug 18, 2021 08:00 AM AMBULATORY - NONE [facility] Aug 19, 2021 10:30 AM AMBULATORY - NONE [facility] Aug 23, 2021 12:00 PM AMBULATORY - NONE [facility] Aug 23, 2021 01:00 PM AMBULATORY - NONE [facility] Aug 28, 2021 12:59 PM AMBULATORY - MEDICINE [facility] Social History: Smoking Status (Most current) and Tobacco Use (All prior to encounter date) This section includes the most current, and the historical, smoking and tobacco-related health factors from the MD facility where the Encounter took place.Current Smoking Status This section includes the most current smoking, or tobacco-related health factor, from the MD facility where the Encounter took place. Date/Time Current Smoking Status [facility] Facility Apr 25, 2021 11:00 AM VA-TOBACCO NEVER USED [facility] Tobacco Use History This section includes a history of the smoking, or tobacco- related health factors, that were collected on or before the date of the Encounter. The data comes from the MD facility where the Encounter took place. Date/Time Smoking Status/Tobacco Use Comment Facil ity July 09, 2020 02:00 PM [facility] July 09, 2020 02:00 PM VA-TOBACCO QUIT 15 YRS OR MORE [facility] Apr 17, 2019 02:39 PM INPT NO TOBACCO USE IN LAST 30 DAYS [facility] Feb 04, 2019 10:37 AM VA-TOBACCO NEVER USED MIN[place] [facility]ER [facility] Oct 15, 2018 02:43 PM INPT NO TOBACCO USE IN LAST 30 DAYS [facility] Oct 13, 2018 11:30 PM INPT NO TOBACCO USE IN LAST 30 DAYS [facility] Sep 02, 2018 05:50 PM INPT NO TOBACCO USE IN LAST 30 DAYS [facility] Aug 12, 2018 07:28 PM INPT NO TOBACCO USE IN LAST 30 DAYS [facility] Jan 30, 2018 03:28 PM VA-TOBACCO FORMER USER MIN [facility] Jan 30, 2018 03:28 PM VA-TOBACCO QUIT 15 YRS OR MORE [facility] May 29, 2017 04:53 PM INPT NO TOBACCO USE IN LAST 30 DAYS [facility] Apr 25, 2017 10:44 PM INPT NO TOBACCO USE IN LAST 30 DAYS [facility] Jan 01, 2017 06:40 PM INPT NO TOBACCO USE IN LAST 30 DAYS [facility] Dec 21, 2016 02:43 PM FORMER TOBACCO USER 7Y OR GREATER [facility] Sep 24, 2013 08:52 AM FORMER TOBACCO USER 7Y OR GREATER [facility] Advance Directives: All historical and current [...] May 29, 2017 CLINICAL WARNING CORNELIO FREITAS [facility] May 16, 2017 ADVANCE DIRECTIVE SERENITY BUENROSTRO [facility] May 16, 2017 ADVANCE DIRECTIVE DISCUSSION SER[place]ITY [place]O [place] [facility] May 04, 2017 CLINICAL WARNING MAGO DIAMOND [facility] May 04, 2017 CLINICAL WARNING GAEL ROSARIO [facility] Apr 26, 2017 CLINICAL WARNING JENNIFER DE ELON [facility] Jan 01, 2017 CLINICAL WARNING AYDE WELLS [facility] Jun 09, 2004 ADVANCE DIRECTIVE DARYL VILLARREAL [facility] Jun 07, 2004 ADVANCE DIRECTIVE SHERYL HOLLOWAY [facility] Encounter Notes: All associated encounter notes This section contains the clinical notes associated to the Encounter. Date/Time Encounter Note(s) Provider Source June 28, 2021 03:14 PM NONVA NOTE: MARQUEZ MARIE [facility] LOCAL TITLE: COMMUNITY CARE-CARE COORDINATION P ADILENE NOTE STANDARD TITLE: NONVA NOTE DATE OF NOTE: JUNE 28, 2021@15:14 ENTRY DATE: JUNE 28, 2021@15:14:25 AUTHOR: MARQUEZ MARIE EXP COSIGNER: URGENCY: STATUS: COMPLETED contacted the [facility] c all line. He stated he went to the dental today and they informed him that he needs to have his 3rd molar removed. Alerting ALFA Palomino to contact [place] at . /es/ MARQUEZ MARIE Advanced MSA Signed: 06/28/2021 15:16 Receipt Acknowledged By: * AWAITING SIGNATURE * FRANCES PALOMINO
--- OUTSIDE RECORDS SUMMARY | 2021-12-23 18:17 | XMS_ITS | Encounter Summary ---
:1945 Author Organization Department [facility] Address [address] [place] [address] Support Name Relationship Address Phone FRANCES GANDARA Unavailable [address] [place] [address] FRANCES GANDARA Unavailable [address] [place] [address] FRANCES GANDARA Unavailable [address] [place] [address] FRANCES GANDARA Unavailable [address] [place] [address] Insurance Providers: All historical and current Section [...] MEDICARE MEDICARE PART Apr 19, PART A [id number] Whit MOJICA (WNR) (M) A 2007 50A [phone] JESSICA MEDICARE MEDICARE PART Apr 19, PART A [id number] 800 Whit MOJICA (WNR) (M) A 2007 [id number] [phone] JESSICA Selected Encounter This section includes the information on record at [place] for the Encounter. Date/Time Encounter Type Encounter Description Reason Provider Source June 28, 2021 11:00 Outpatient Encounter [facility] ([facility]) IHE Encounter Template Text not used [...] 20 appointments. The data comes from all [place] treatment facilities. Appointment Date/Time Appointment Type Appointment Facili ty Name July 04, 2021 12:15 PM AMBULATORY - NONE [facility] July 04, 2021 01:15 PM AMBULATORY - SURGERY [facility] July 06, 2021 10:15 AM AMBULATORY - NONE [facility] July 07, 2021 01:00 PM AMBULATORY - NONE [facility] July 07, 2021 02:00 PM AMBULATORY - SURGERY [facility] July 13, 2021 09:00 AM AMBULATORY - REHAB MEDICINE [facility] July 14, 2021 02:10 PM AMBULATORY - NONE [facility] Jul 21, 2021 09:45 AM AMBULATORY - NONE [facility] Jul 26, 2021 10:45 AM AMBULATORY - NONE [facility] Jul 29, 2021 11:30 AM AMBULATORY - NONE [facility] Jul 29, 2021 01:00 PM AMBULATORY - NONE [facility] Jul 29, 2021 02:00 PM AMBULATORY - MEDICINE [facility] Aug 02, 2021 11:30 AM AMBULATORY - NONE [facility] Aug 04, 2021 01:30 PM AMBULATORY - NONE [facility] Aug 11, 2021 12:30 PM AMBULATORY - NONE [facility] Aug 18, 2021 08:00 AM AMBULATORY - NONE [facility] Aug 19, 2021 10:30 AM AMBULATORY - NONE [facility] Aug 23, 2021 12:00 PM AMBULATORY - NONE [facility] Aug 23, 2021 01:00 PM AMBULATORY - NONE [facility] Aug 28, 2021 12:59 PM AMBULATORY - MEDICINE [facility] Social History: Smoking Status [...] Encounter took place. Date/Time Current Smoking Status [facility] Facility Apr 25, 2021 11:00 AM VA-TOBACCO NEVER USED [facility] Tobacco Use History This section includes a history of the smoking, or tobacco- related health factors, that were collected on or before the date of the Encounter. The data comes from the [place] facility where the Encounter took place. Date/Time Smoking Status/Tobacco Use Comment Facil ity July 09, 2020 02:00 PM [facility]AC[facility] July 09, 2020 02:00 PM VA-TOBACCO QUIT 15 YRS OR MORE [facility] Apr 17, 2019 02:39 PM INPT NO TOBACCO USE IN LAST 30 DAYS [facility] Feb 04, 2019 10:37 AM VA-TOBACCO NEVER USED MINN HARVINDER [facility] Oct 15, 2018 02:43 PM INPT NO TOBACCO USE IN LAST 30 DAYS [facility] Oct 13, 2018 11:30 PM INPT NO TOBACCO USE IN LAST 30 DAYS [facility] Sep 02, 2018 05:50 PM INPT NO TOBACCO USE IN LAST 30 DAYS [facility] Aug 12, 2018 07:28 PM INPT NO TOBACCO USE IN LAST 30 DAYS [facility] Jan 30, 2018 03:28 PM VA-TOBACCO FORMER USER MIN [facility] Jan 30, 2018 03:28 PM VA-TOBACCO QUIT 15 YRS OR MORE [facility] May 29, 2017 04:53 PM INPT NO TOBACCO USE IN LAST 30 DAYS [facility] Apr 25, 2017 10:44 PM INPT NO TOBACCO USE IN LAST 30 DAYS [facility] Jan 01, 2017 06:40 PM INPT NO TOBACCO USE IN LAST 30 DAYS [facility] Dec 21, 2016 02:43 PM FORMER TOBACCO USER 7Y OR GREATER [facility] Sep 24, 2013 08:52 AM FORMER TOBACCO USER 7Y OR GREATER [facility] Advance Directives: All historical and current [...] May 16, 2017 ADVANCE DIRECTIVE SERENITY BUENROSTRO [facility] May 16, 2017 ADVANCE DIRECTIVE DISCUSSION SERENITY BUENROSTRO [place] [facility] May 04, 2017 CLINICAL WARNING MAGO DIAMOND [facility] May 04, 2017 CLINICAL WARNING GAEL ROSARIO [facility] Apr 26, 2017 CLINICAL WARNING JENNIFER DE LEON [facility] Jan 01, 2017 CLINICAL WARNING AYDE WELLS [facility] Jun 09, 2004 ADVANCE DIRECTIVE DARYL VILLARREAL [facility] Jun 07, 2004 ADVANCE DIRECTIVE SHERYL HOLLOWAY [facility]
--- OUTSIDE RECORDS SUMMARY | 2021-12-23 18:19 | XMS_ITS | Encounter Summary ---
:1945 Author Organization [facility] Address [address] [place] [address] Support Name Relationship Address Phone FRANCES GANDARA Unavailable [address] [place] [address] FRANCES GANDARA Unavailable [address] [place] [address] FRANCES GANDARA Unavailable [address] [place] [address] FRANCES GANDARA Unavailable [address] [place] [address] Insurance Providers: All historical and current Section [...] MEDICARE MEDICARE PART Apr 19, PART A [id number] 800 Whit MOJICA (WNR) (M) A 2007 50A [phone] JESSICA MEDICARE MEDICARE PART Apr 19, PART A [id number] 800 Whit MOJICA (WNR) (M) A 2007 [id number] [phone] JESSICA Selected Encounter This section includes the information on record at [place] for the Encounter. Date/Time Encounter Type Encounter Description Reason Provider Source June 29, 2021 02:15 Outpatient Encounter COMMUNITY CARE PM CONSULT IHE Encounter Template Text not used by [place] Plan of Treatment: Future Appointments (+ 6 [...] 04, 2021 12:15 PM AMBULATORY - NONE [facility] July 04, 2021 01:15 PM AMBULATORY - SURGERY [facility] July 06, 2021 10:15 AM AMBULATORY - NONE [facility] July 07, 2021 01:00 PM AMBULATORY - NONE [facility] July 07, 2021 02:00 PM AMBULATORY - SURGERY [facility] July 13, 2021 09:00 AM AMBULATORY - REHAB MEDICINE [facility] July 14, 2021 02:10 PM AMBULATORY - NONE [facility] Jul 21, 2021 09:45 AM AMBULATORY - NONE [facility] Jul 26, 2021 10:45 AM AMBULATORY - NONE [facility] Jul 29, 2021 11:30 AM AMBULATORY - NONE [facility] Jul 29, 2021 01:00 PM AMBULATORY - NONE [facility] Jul 29, 2021 02:00 PM AMBULATORY - MEDICINE [facility] Aug 02, 2021 11:30 AM AMBULATORY - NONE [facility] Aug 04, 2021 01:30 PM AMBULATORY - NONE [facility] Aug 11, 2021 12:30 PM AMBULATORY - NONE [facility] Aug 18, 2021 08:00 AM AMBULATORY - NONE [facility] Aug 19, 2021 10:30 AM AMBULATORY - NONE [facility] Aug 23, 2021 12:00 PM AMBULATORY - NONE [facility] Aug 23, 2021 01:00 PM AMBULATORY - NONE [facility] Aug 28, 2021 12:59 PM AMBULATORY - MEDICINE [facility] Lab Results: +/- 30 [...] Result - Unit Interpretation Reference Range Comment Jul 29, 2021 [facility] DRUG SCREEN PANEL,URINE Spec imen Type: URINE 01:18 PM Comment: Presum ptive Positive by screen, results not confirmed. Ordering Provid er: CARIDAD DENNIS Report Released Date/Time: Jul 29, 2021 01:06 PM Reporting Lab: [facility] [address] [facility] [address] Performing Lab: [facility] [address] [facility] [address] BARBITURATES Negative Negative AMPHETAMINES Negative Negative COCAINE Negative Negative BENZODIAZEPINES Negative Negative CANNABINOIDS Negative Negative METHADONE Negative Negative OPIATES Negative Negative PHENCYCLIDINE Negative Negative ETHANOL,URINE Negative Negative DRUG SCREEN CREAT 64.7 >20.0 OXYCODONE POSITIVE H Negative BUPRENORPHINE Negative Negative TRAMADOL Negative Negative FENTANYL Negative Negative Jul 29, 2021 12:30 PM [facility] AST/SGOT Specim en Type: PLASMA No comment enter ed. Ordering Provid er: CARIDAD DENNIS Report Released Date/Time: Feb 28, 2021 06:22 PM Reporting Lab: [facility] [address] [facility] [address] Performing Lab: [facility] [address] [facility] [address] AST/SGOT 13 <34 Jul 29, 2021 12:30 PM [facility] HEMOGLOBIN A1C Specim en Type: BLOOD No comment enter ed. Ordering Provid er: CARIDAD DENNIS Report Released Date/Time: Feb 28, 2021 06:22 PM Reporting Lab: [facility] [address] [facility] [address] Performing Lab: [facility] [address] [facility] [address] HEMOGLOBIN A1C 7.0 H 4.0-6.0 Jul 29, 2021 12:30 PM [facility] ALT/SGPT Specim en Type: PLASMA No comment enter ed. Ordering Provid er: CARIDAD DENNIS Report Released Date/Time: Feb 28, 2021 06:22 PM Reporting Lab: [facility] [address] [facility] [address] Performing Lab: [facility] [address] [facility] [address] ALT/SGPT 15 <55 Jul 29, 2021 12:30 PM [facility] CBC Specim en Type: BLOOD No comment enter ed. Ordering Provid er: CARIDAD DENNIS Report Released Date/Time: Feb 28, 2021 06:22 PM Reporting Lab: [facility] [address] [facility] [address] Performing Lab: [facility] [address] [facility] [address] WBC 6.29 4.0-11.0 RBC 4.82 4.6-6.2 HGB 13.3 L 13.5-17.9 HCT 42.4 41-54 MCV 88.0 80-100 MCH 27.6 27-33 MCHC 31.4 L 32.0-37.5 PLT 286 150-400 MPV 9.5 7.4-10.4 RDW 16.8 H 11.5-14.5 Jul 29, 2021 12:30 [facility] BASIC METABOLIC Specimen Type: PLASMA PM PANEL+MG No comment enter ed. Ordering Provid er: CARIDAD DENNIS Report Released Date/Time: Feb 28, 2021 06:22 PM Reporting Lab: [facility] [address] [facility] [address] Performing Lab: [facility] [address] CREATININE 0.7 0.7-1.2 UREA NITROGEN 12 8-26 GLUCOSE 170 H 74-100 SODIUM 141 136-145 POTASSIUM 3.9 3.5-5.1 CHLORIDE 105 98-107 CO2 28 22-29 CALCIUM 9.1 8.4-10.2 MAGNESIUM 2.3 1.6-2.6 ANION GAP 8 5-15 CREAT EGFR(CKD-EPI) >90 >60 Social History: Smoking [...] Smoking Status/Tobacco Use Comment [facility] jorge alberto July 09, 2020 02:00 PM VA-TOBACCO FORMER USER [facility] [facility] July 09, 2020 02:00 PM VA-TOBACCO QUIT 15 YRS OR MORE [facility] Apr 17, 2019 02:39 PM INPT NO TOBACCO USE IN LAST 30 DAYS [facility] Feb 04, 2019 10:37 AM [place]-TO[place] USED [place] [facility] [...] 2018 03:28 PM VA-TOBACCO FORMER USER [place] [facility] [facility] Jan 30, 2018 03:28 [...] this document. The data comes from all [place] facilities. Date Advance Directives Provider Source May 29, 2017 CLINICAL WARNING CORNELIO FREITAS [facility] May 16, 2017 ADVANCE DIRECTIVE SERENITY BUENROSTRO [facility] May 16, 2017 ADVANCE DIRECTIVE DISCUSSION SERENITY BUENROSTRO [place] [facility] May 04, 2017 CLINICAL WARNING MAGO DIAMOND [facility] May 04, 2017 CLINICAL WARNING GAEL ROSARIO [facility] Apr 26, 2017 CLINICAL WARNING JENNIFER DE LEON [facility] Jan 01, 2017 CLINICAL WARNING AYDE WELLS [facility] Jun 09, 2004 ADVANCE DIRECTIVE DARYL VILLARREAL [facility] Jun 07, 2004 ADVANCE DIRECTIVE SHERYL HOLLOWAY [facility] Encounter Notes: All associated encounter notes This section contains the clinical notes associated to the Encounter. Date/Time Encounter Note(s) Provider Source June 29, 2021 02:15 PM NONVA NOTE: DHARMESH ALVAREZ [facility] LOCAL TITLE: COMMUNITY CARE-CARE COORDINATION P ADILENE NOTE STANDARD TITLE: NONVA NOTE DATE OF NOTE: JUNE 29, 2021@14:15 ENTRY DATE: JUNE 29, 2021@14:15:53 AUTHOR: DHARMESH ALVAREZ EXP COSIGNER: URGENCY: STATUS: COMPLETED [place] contacted [facility] stating that he w ent to a dental office yesterday for a root canal and was told that they could not do t he procedure due to where the tooth was located. Filling Machine Operator instructed to have that clinic fax over the care plan for dental clinic to review. [place] understood and agreed with plan. /vinicio/ DHARMESH ALVAREZ Advanced MSA Signed: 06/29/2021 14:19
--- OUTSIDE RECORDS SUMMARY | 2021-12-23 18:20 | XMS_ITS | Encounter Summary ---
:1945 Author Organization [facility] Address [address] [place] [address] Support Name Relationship Address Phone FRANCES GANDARA Unavailable [address] [place] [address] FRANCES GANDARA Unavailable [address] [place] [address] FRANCES GANDARA Unavailable [address] [place] [address] FRANCES GANDARA Unavailable [address] [place] [address] Insurance Providers: All historical and current Section [...] MEDICARE MEDICARE PART Apr 19, PART A [id number] Whit MOJICA (WNR) (M) A 2007 50A [phone] JESSICA MEDICARE MEDICARE PART Apr 19, PART A [id number] 800 Whit MOJICA (WNR) (M) A 2007 [id number] [phone] JESSICA Selected Encounter This section includes the information on record at [place] for the Encounter. Date/Time Encounter Type Encounter Description Reason Provider Source June 30, 2021 09:21 Outpatient Encounter [facility] FOLLOW-UP AM IHE Encounter Template Text not used by [place] Plan of Treatment: Future Appointments (+ 6 [...] 2021 09:00 AM AMBULATORY - REHAB MEDICINE [facility] July 14, 2021 02:10 PM AMBULATORY - NONE [facility] Jul 21, 2021 09:45 AM AMBULATORY - NONE [facility] Jul 26, 2021 10:45 AM AMBULATORY - NONE [facility] Jul 29, 2021 11:30 AM AMBULATORY - NONE [facility] Jul 29, 2021 01:00 PM AMBULATORY - NONE [facility] Jul 29, 2021 02:00 PM AMBULATORY - MEDICINE [facility] Aug 02, 2021 11:30 AM AMBULATORY - NONE [facility] Aug 04, 2021 01:30 PM AMBULATORY - NONE [facility] Aug 11, 2021 12:30 PM AMBULATORY - NONE [facility] Aug 18, 2021 08:00 AM AMBULATORY - NONE [facility] Aug 19, 2021 10:30 AM AMBULATORY - NONE [facility] Aug 23, 2021 12:00 PM AMBULATORY - NONE [facility] Aug 23, 2021 01:00 PM AMBULATORY - NONE [facility] Aug 28, 2021 12:59 PM AMBULATORY - MEDICINE [facility] Lab Results: +/- 30 days of [...] Interpretation Reference Range Comment Jul 29, 2021 [facility] DRUG SCREEN PANEL,URINE Spec imen Type: URINE 01:18 PM Comment: Presum ptive Positive by screen, results not confirmed. Ordering Provid er: CARIDAD DENNIS Report Released Date/Time: Jul 29, 2021 01:06 PM Reporting Lab: [facility] [address] [facility] [address] Performing Lab: [facility] [address] [facility] [address] BARBITURATES Negative Negative AMPHETAMINES Negative Negative COCAINE Negative Negative BENZODIAZEPINES Negative Negative CANNABINOIDS Negative Negative METHADONE Negative Negative OPIATES Negative Negative PHENCYCLIDINE Negative Negative ETHANOL,URINE Negative Negative DRUG SCREEN CREAT 64.7 >20.0 OXYCODONE POSITIVE H Negative BUPRENORPHINE Negative Negative TRAMADOL Negative Negative FENTANYL Negative Negative Jul 29, 2021 12:30 PM [facility] HEMOGLOBIN A1C Specim en Type: BLOOD No comment enter ed. Ordering Provid er: CARIDAD DENNIS Report Released Date/Time: Feb 28, 2021 06:22 PM Reporting Lab: [facility] [address] [facility] [address] Performing Lab: [facility] [address] [facility] [address] HEMOGLOBIN A1C 7.0 H 4.0-6.0 Jul 29, 2021 12:30 PM [facility] AST/SGOT Specim en Type: PLASMA No comment enter ed. Ordering Provid er: CARIDAD DENNIS Report Released Date/Time: Feb 28, 2021 06:22 PM Reporting Lab: [facility] [address] [facility] [address] Performing Lab: [facility] [address] [facility] [address] AST/SGOT 13 <34 Jul 29, 2021 12:30 PM [facility] ALT/SGPT Specim en Type: PLASMA No comment enter ed. Ordering Provid er: CARIDAD DENNIS Report Released Date/Time: Feb 28, 2021 06:22 PM Reporting Lab: [facility] [address] [facility] [address] Performing Lab: [facility] [address] [facility] [address] ALT/SGPT 15 <55 Jul 29, 2021 12:30 PM [facility] CBC Specim en Type: BLOOD No comment enter ed. Ordering Provid er: CARIDAD DENNIS Report Released Date/Time: Feb 28, 2021 06:22 PM Reporting Lab: [facility] [address] [facility] [address] Performing Lab: [facility] [address] [facility] [address] WBC 6.29 4.0-11.0 RBC 4.82 4.6-6.2 HGB 13.3 L 13.5-17.9 HCT 42.4 41-54 MCV 88.0 80-100 MCH 27.6 27-33 MCHC 31.4 L 32.0-37.5 PLT 286 150-400 MPV 9.5 7.4-10.4 RDW 16.8 H 11.5-14.5 Jul 29, 2021 12:30 [facility] BASIC METABOLIC Specimen Type: PLASMA PM PANEL+MG No comment enter ed. Ordering Provid er: CARIDAD DENNIS Report Released Date/Time: Feb 28, 2021 06:22 PM Reporting Lab: [facility] [address] Performing Lab: [facility] [address] CREATININE 0.7 0.7-1.2 UREA NITROGEN 12 8-26 [...] smoking and tobacco-related health factors from the [place] facility where the Encounter took place.Current Smoking Status This section includes the most current smoking, or tobacco-related health factor, from the [place] facility where the Encounter took place. Date/Time Current Smoking Status Comment Facility Apr 25, 2021 11:00 AM [place]-TOBACCO NEVER USED [place] [facility] Tobacco Use History This section includes a history of the smoking, or tobacco- related health factors, that were collected on or before the date of the Encounter. The data comes from the [place] facility where the Encounter took place. Date/Time Smoking Status/Tobacco Use Comment [facility] July 09, 2020 02:00 PM [place]-TOBACCO FORMER USER [place] [facility] July 09, 2020 02:00 PM VA-TOBACCO QUIT 15 YRS OR MORE [facility] Apr 17, 2019 02:39 PM INPT NO TOBACCO USE IN LAST 30 DAYS [facility] Feb 04, 2019 10:37 AM [place]-TOBACCO NEVER USED [place] [facility] Oct 15, 2018 02:43 PM INPT NO [...] 2018 03:28 PM [facility] Jan 30, 2018 03:28 PM VA-TOBACCO [...] 2017 CLINICAL WARNING CORNELIO FREITAS [facility] May 16, 2017 ADVANCE DIRECTIVE SERENITY BUENROSTRO [facility] May 16, 2017 ADVANCE DIRECTIVE DISCUSSION [facility] May 04, 2017 CLINICAL WARNING MAGO DIAMOND [facility] May 04, 2017 CLINICAL WARNING GAEL ROSARIO [facility] Apr 26, 2017 CLINICAL WARNING JENNIFER DE LEON [facility] Jan 01, 2017 CLINICAL WARNING AYDE WELLS [facility] Jun 09, 2004 ADVANCE DIRECTIVE DARYL VILLARREAL [facility] Jun 07, 2004 ADVANCE DIRECTIVE SHERYL HOLLOWAY [facility] Encounter Notes: All associated encounter notes This section contains the clinical notes associated to the Encounter. Date/Time Encounter Note(s) Provider Source June 30, 2021 09:21 AM COMMUNITY INTERMEDIATE CARE NOTE: ALBERTO FREY [facility] LOCAL TITLE: [facility] COORDINATION NOTE STANDARD TITLE: [facility]ITY INTERMEDIATE CARE NOTE DATE OF NOTE: JUNE 30, 2021@09:21 ENTRY DATE: JUNE 30, 2021@09:21:58 AUTHOR: ALBERTO FREY EXP COSIGNER: URGENCY: STATUS: COMPLETED SUBJECT: Pivot disk [facility] COORDINATION NOTE Has ADDENDA Community Half-Way Program Care Coordination WHERE IS SEEKING CARE [place] REFERRING PROVIDER INFORMATION Half-Way: [facility] Referring Provider: Starr Manuel NP INTERMEDIATE POINT OF CONTACT FOR APPOINTMENT CO ORDINATION Name: Judith Dacosta RN TYPE OF REFERRAL Equipment: Pivot disk REASON FOR REFERRAL Therapy is requesting a pivot disk for transfers . PLAN Provider to review for consult placement. /darya FREY RN Community [facility] Nurse Coordinator Signed: 06/30/2021 09:25 Receipt Acknowledged By: 06/30/2021 19:56 /darya JEWELL DO PHYSICIAN, PM&R 06/30/2021 ADDENDUM STATUS: COMPLETED Request forwarded to therapist for assist with o rdering. /darya JEWELL DO PHYSICIAN, PM&R Signed: 06/30/2021 13:03 06/30/2021 ADDENDUM STATUS: COMPLETED Therapy will need DME request form filled out an d signed by [facility] therapist to order. Can you please alert them to this. /darya JEWELL DO PHYSICIAN, PM&R Signed: 06/30/2021 19:56 Receipt Acknowledged By: * AWAITING SIGNATURE * ALBERTO FREY
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
--- OUTSIDE RECORDS SUMMARY | 2021-12-23 18:26 | XMS_ITS | Encounter Summary ---
:1945 Author Organization [facility] Address [address] [place] [address] Support Name Relationship Address Phone FRANCES GANDARA Unavailable [address] [place] [address] FRANCES GANDARA Unavailable [address] [place] [address] FRANCES GANDARA Unavailable [address] [place] [address] FRANCES GANDARA Unavailable [address] [place] [address] Insurance Providers: All historical and current Section [...] MEDICARE MEDICARE PART Apr 19, PART A [id number] Whit MOJICA (WNR) (M) A 2007 50A [phone] JESSICA MEDICARE MEDICARE PART Apr 19, PART A [id number] 800 Whit MOJICA (WNR) (M) A 2007 [id number] [phone] JESSICA Selected Encounter This section includes the information on record at [place] for the Encounter. Date/Time Encounter Type Encounter Description Reason Provider Source July 05, 2021 06:56 Outpatient Encounter DENTAL AM IHE Encounter Template Text not used [...] 06, 2021 10:15 AM AMBULATORY - NONE [facility] July 07, 2021 01:00 PM AMBULATORY - NONE [facility] July 07, 2021 02:00 PM AMBULATORY - SURGERY [facility] July 13, 2021 09:00 AM AMBULATORY - REHAB MEDICINE [facility] July 14, 2021 02:10 PM AMBULATORY - NONE [facility] Jul 21, 2021 09:45 AM AMBULATORY - NONE [facility] Jul 26, 2021 10:45 AM AMBULATORY - NONE [facility] Jul 29, 2021 11:30 AM AMBULATORY - NONE [facility] Jul 29, 2021 01:00 PM AMBULATORY - NONE [facility] Jul 29, 2021 02:00 PM AMBULATORY - MEDICINE [facility] Aug 02, 2021 11:30 AM AMBULATORY - NONE [facility] Aug 04, 2021 01:30 PM AMBULATORY - NONE [facility] Aug 11, 2021 12:30 PM AMBULATORY - NONE [facility] Aug 18, 2021 08:00 AM AMBULATORY - NONE [facility] Aug 19, 2021 10:30 AM AMBULATORY - NONE [facility] Aug 23, 2021 12:00 PM AMBULATORY - NONE [facility] Aug 23, 2021 01:00 PM AMBULATORY - NONE [facility] Aug 28, 2021 12:59 PM AMBULATORY - MEDICINE [facility] Sep 04, 2021 07:33 PM AMBULATORY - MEDICINE [facility] Sep 06, 2021 01:30 PM AMBULATORY - NONE [facility] Lab Results: +/- 30 days of the [...] Interpretation Reference Range Comment Jul 29, 2021 [facility] DRUG SCREEN PANEL,URINE Spec imen Type: URINE 01:18 PM Comment: Presum ptive Positive by screen, results not confirmed. Ordering Provid er: CARIDAD DENNIS Report Released Date/Time: Jul 29, 2021 01:06 PM Reporting Lab: [facility] [address] [facility] [address] Performing Lab: [facility] [address] [facility] [address] BARBITURATES Negative Negative AMPHETAMINES Negative Negative COCAINE Negative Negative BENZODIAZEPINES Negative Negative CANNABINOIDS Negative Negative METHADONE Negative Negative OPIATES Negative Negative PHENCYCLIDINE Negative Negative ETHANOL,URINE Negative Negative DRUG SCREEN CREAT 64.7 >20.0 OXYCODONE POSITIVE H Negative BUPRENORPHINE Negative Negative TRAMADOL Negative Negative FENTANYL Negative Negative Jul 29, 2021 12:30 PM [facility] HEMOGLOBIN A1C Specim en Type: BLOOD No comment enter ed. Ordering Provid er: CARIDAD DENNIS Report Released Date/Time: Feb 28, 2021 06:22 PM Reporting Lab: [facility] [address] [facility] [address] Performing Lab: [facility] [address] [facility] [address] HEMOGLOBIN A1C 7.0 H 4.0-6.0 Jul 29, 2021 12:30 PM [facility] AST/SGOT Specim en Type: PLASMA No comment enter ed. Ordering Provid er: CARIDAD DENNIS Report Released Date/Time: Feb 28, 2021 06:22 PM Reporting Lab: [facility] [address] [facility] [address] Performing Lab: [facility] [address] [facility] [address] AST/SGOT 13 <34 Jul 29, 2021 12:30 PM [facility] ALT/SGPT Specim en Type: PLASMA No comment enter ed. Ordering Provid er: CARIDAD DENNIS Report Released Date/Time: Feb 28, 2021 06:22 PM Reporting Lab: [facility] [address] [facility] [address] Performing Lab: [facility] [address] [facility] [address] ALT/SGPT 15 <55 Jul 29, 2021 12:30 [facility] BASIC METABOLIC Specimen Type: PLASMA PM PANEL+MG No comment enter ed. Ordering Provid er: CARIDAD DENNIS Report Released Date/Time: Feb 28, 2021 06:22 PM Reporting Lab: [facility] [address] [facility] [address] Performing Lab: [facility] [address] [facility] [address] CREATININE 0.7 0.7-1.2 UREA NITROGEN 12 8-26 GLUCOSE 170 H 74-100 SODIUM 141 136-145 POTASSIUM 3.9 3.5-5.1 CHLORIDE 105 98-107 CO2 28 22-29 CALCIUM 9.1 8.4-10.2 MAGNESIUM 2.3 1.6-2.6 ANION GAP 8 5-15 CREAT EGFR(CKD-EPI) >90 >60 Jul 29, 2021 12:30 PM [facility] CBC Specim en Type: BLOOD No comment enter ed. Ordering Provid er: CARIDAD DENNIS Report Released Date/Time: Feb 28, 2021 06:22 PM Reporting Lab: [facility] [address] [facility] [address] Performing Lab: [facility] [address] [facility] [address] [facility] [address] WBC 6.29 4.0-11.0 RBC 4.82 4.6-6.2 HGB 13.3 L 13.5-17.9 HCT 42.4 41-54 MCV 88.0 80-100 MCH 27.6 27-33 MCHC 31.4 L 32.0-37.5 PLT 286 150-400 MPV 9.5 7.4-10.4 RDW 16.8 H 11.5-14.5 Social History: Smoking Status (Most current) and [...] took place. Date/Time Smoking Status/Tobacco Use Comment [facility] July 09, 2020 02:00 PM VA-TOBACCO FORMER USER [place] [facility] July 09, 2020 02:00 PM VA-TOBACCO QUIT 15 YRS OR MORE [facility] Apr 17, 2019 02:39 PM INPT NO TOBACCO USE IN LAST 30 DAYS [facility] Feb 04, 2019 10:37 AM [place]-TOBACCO NEVER USED [place] [facility] Oct 15, 2018 02:43 PM INPT NO TOBACCO USE IN LAST 30 DAYS [facility] Oct 13, 2018 11:30 PM INPT NO TOBACCO USE IN LAST 30 DAYS [facility] Sep 02, 2018 05:50 PM INPT NO TOBACCO USE IN LAST 30 DAYS [facility] Aug 12, 2018 07:28 PM INPT NO TOBACCO USE IN LAST 30 DAYS [facility] Jan 30, 2018 03:28 PM VA-TOBACCO FORMER USER [place] [facility] Jan 30, 2018 03:28 PM VA-TOBACCO QUIT 15 YRS OR MORE [facility] May 29, 2017 04:53 PM INPT NO TOBACCO USE IN LAST 30 DAYS [facility] Apr 25, 2017 10:44 PM INPT NO TOBACCO USE IN LAST 30 DAYS [facility] Jan 01, 2017 06:40 PM INPT NO TOBACCO USE IN LAST 30 DAYS [facility] Dec 21, 2016 02:43 PM FORMER TOBACCO USER 7Y OR GREATER [facility] Sep 24, 2013 08:52 AM FORMER TOBACCO USER 7Y OR GREATER [facility] Advance Directives: All historical and [...] May 29, 2017 CLINICAL WARNING CORNELIO FREITAS [facility] May 16, 2017 ADVANCE DIRECTIVE SERENITY BUENROSTRO [facility] May 16, 2017 ADVANCE DIRECTIVE DISCUSSION [facility]ENITY [facility]O [facility] May 04, 2017 CLINICAL [address] MAGO DIAMOND [facility] May 04, 2017 CLINICAL WARNING GAEL ROSARIO [facility] Apr 26, 2017 CLINICAL WARNING JENNIFER DE LEON [facility] Jan 01, 2017 CLINICAL WARNING AYDE WELLS [facility] Jun 09, 2004 ADVANCE DIRECTIVE DARYL VILLARREAL [facility] Jun 07, 2004 ADVANCE DIRECTIVE SHERYL HOLLOWAY [facility] Encounter Notes: All associated encounter notes This section contains the clinical notes associated to the Encounter. Date/Time Encounter Note(s) Provider Source July 05, 2021 06:56 AM REPORT OF CONTACT: EVER VILLANUEVA [facility] LOCAL TITLE: PATIENT CONTACT NOTE STANDARD TITLE: REPORT OF CONTACT DATE OF NOTE: JULY 05, 2021@06:56 ENTRY DATE: JULY 05, 2021@06:56:54 AUTHOR: EVER VILLANUEVA COSIGNER: URGENCY: STATUS: COMPLETED PATIENT CONTACT NOTE Has ADDENDA Patient contact Name of : JESSICA MOJICA Name/Relationship of Contact if other than Veter an: Date & Time of Contact: June@15:00 Type of Contact: Other Reason for Contact: Patient left a letter from his dentist i ndicating that patient needs number 16 extracted by an oral surgeon . Will have community care consult entered for this treatment. /es/ EVER VILLANUEVA DDS STAFF DENTIST Signed: 07/05/2021 06:58 Receipt Acknowledged By: 07/05/2021 07:32 /es/ Jorje GRIMM 07/06/2021 ADDENDUM STATUS: COMPLETED [place] called to opt in for this care.[place] . /es/ ESTELA CRUM Signed: 07/06/2021 14:45 Receipt Acknowledged By: * AWAITING SIGNATURE * FRANCES PALOMINO
--- OUTSIDE RECORDS SUMMARY | 2021-12-23 18:27 | XMS_ITS | Encounter Summary ---
:1945 Author Organization [facility] Address [address] [place] [address] Support Name Relationship Address Phone FRANCES GANDARA Unavailable [address] [place] [address] FRANCES GANDARA Unavailable [address] [place] [address] FRANCES GANDARA Unavailable [address] [place] [address] FRANCES GANDARA Unavailable [address] [place] [address] Insurance Providers: All historical and current Section [...] MEDICARE MEDICARE PART Apr 19, PART A [id number] Whit MOJICA (WNR) (M) A 2007 50A [phone] JESSICA MEDICARE MEDICARE PART Apr 19, PART A [id number] 800 Whit MOJICA (WNR) (M) A 2007 [id number] [phone] JESSICA Selected Encounter This section includes the information on record at [place] for the Encounter. Date/Time Encounter Type Encounter Description Reason Provider Source July 05, 2021 10:00 Outpatient Encounter [facility] FOLLOW-UP AM IHE Encounter Template Text not used by ME Plan of Treatment: Future Appointments (+ 6 [...] 20 appointments. The data comes from all ME treatment facilities. Appointment Date/Time Appointment Type Appointment Facili ty Name July 06, 2021 10:15 AM AMBULATORY - NONE [facility] July 07, 2021 01:00 PM AMBULATORY - NONE [facility] July 07, 2021 02:00 PM AMBULATORY - SURGERY [facility] July 13, 2021 09:00 AM AMBULATORY - REHAB MEDICINE [facility] July 14, 2021 02:10 PM AMBULATORY - NONE [facility] Jul 21, 2021 09:45 AM AMBULATORY - NONE [facility] Jul 26, 2021 10:45 AM AMBULATORY - NONE [facility] Jul 29, 2021 11:30 AM AMBULATORY - NONE [facility] Jul 29, 2021 01:00 PM AMBULATORY - NONE [facility] Jul 29, 2021 02:00 PM AMBULATORY - MEDICINE [facility] Aug 02, 2021 11:30 AM AMBULATORY - NONE [facility] Aug 04, 2021 01:30 PM AMBULATORY - NONE [facility] Aug 11, 2021 12:30 PM AMBULATORY - NONE [facility] Aug 18, 2021 08:00 AM AMBULATORY - NONE [facility] Aug 19, 2021 10:30 AM AMBULATORY - NONE [facility] Aug 23, 2021 12:00 PM AMBULATORY - NONE [facility] Aug 23, 2021 01:00 PM AMBULATORY - NONE [facility] Aug 28, 2021 12:59 PM AMBULATORY - MEDICINE [facility] Sep 04, 2021 07:33 PM AMBULATORY - MEDICINE [facility] Sep 06, 2021 01:30 PM AMBULATORY - NONE [facility] Lab Results: +/- 30 days of the encounter This section includes the Chemistry and Hematology Lab Results on record with ME for the patient. Radiology Reports and Pathology Reports are provided separately, in subsequent sections.Lab Results This section contains the Chemistry/Hematology Results that were resulted 30 days before or 30 daysafter the date of the Encounter. Date/Time Source Result Type Result - Unit Interpretation Reference Range Comment Jul 29, 2021 [facility] DRUG SCREEN PANEL,URINE Spec imen Type: URINE 01:18 PM Comment: Presum ptive Positive by screen, results not confirmed. Ordering Provid er: CARIDAD DENNIS Report Released Date/Time: Jul 29, 2021 01:06 PM Reporting Lab: [facility] [address] [facility] [address] Performing Lab: [facility] [address] [facility] [address] BARBITURATES Negative Negative AMPHETAMINES Negative Negative COCAINE Negative Negative BENZODIAZEPINES Negative Negative CANNABINOIDS Negative Negative METHADONE Negative Negative OPIATES Negative Negative PHENCYCLIDINE Negative Negative ETHANOL,URINE Negative Negative DRUG SCREEN CREAT 64.7 >20.0 OXYCODONE POSITIVE H Negative BUPRENORPHINE Negative Negative TRAMADOL Negative Negative FENTANYL Negative Negative Jul 29, 2021 12:30 PM [facility] HEMOGLOBIN A1C Specim en Type: BLOOD No comment enter ed. Ordering Provid er: CARIDAD DENNIS Report Released Date/Time: Feb 28, 2021 06:22 PM Reporting Lab: [facility] [address] [facility] [address] Performing Lab: [facility] [address] [facility] [address] HEMOGLOBIN A1C 7.0 H 4.0-6.0 Jul 29, 2021 12:30 PM [facility] AST/SGOT Specim en Type: PLASMA No comment enter ed. Ordering Provid er: CARIDAD DENNIS Report Released Date/Time: Feb 28, 2021 06:22 PM Reporting Lab: [facility] [address] [facility] [address] Performing Lab: [facility] [address] [facility] [address] AST/SGOT 13 <34 Jul 29, 2021 12:30 PM [facility] ALT/SGPT Specim en Type: PLASMA No comment enter ed. Ordering Provid er: CARIDAD DENNIS Report Released Date/Time: Feb 28, 2021 06:22 PM Reporting Lab: [facility] [address] [facility] [address] Performing Lab: [facility] [address] [facility] [address] ALT/SGPT 15 <55 Jul 29, 2021 12:30 PM [facility] CBC Specim en Type: BLOOD No comment enter ed. Ordering Provid er: CARIDAD DENNIS Report Released Date/Time: Feb 28, 2021 06:22 PM Reporting Lab: [facility] [address] [facility] [address] Performing Lab: [facility] [address] [facility] [address] WBC 6.29 4.0-11.0 RBC 4.82 4.6-6.2 HGB 13.3 L 13.5-17.9 HCT 42.4 41-54 MCV 88.0 80-100 MCH 27.6 27-33 MCHC 31.4 L 32.0-37.5 PLT 286 150-400 MPV 9.5 7.4-10.4 RDW 16.8 H 11.5-14.5 Jul 29, 2021 12:30 [facility] BASIC METABOLIC Specimen Type: PLASMA PM PANEL+MG No comment enter ed. Ordering Provid er: CARIDAD DENNIS Report Released Date/Time: Feb 28, 2021 06:22 PM Reporting Lab: [facility] [address] Performing Lab: [facility] [address] CREATININE 0.7 0.7-1.2 UREA NITROGEN 12 8-26 [...] smoking and tobacco-related health factors from the ME facility where the Encounter took place.Current Smoking Status This section includes the most current smoking, or tobacco-related health factor, from the ME facility where the Encounter took place. Date/Time Current Smoking Status Comment Facility Apr 25, 2021 11:00 AM [place]-TOBACCO NEVER USED [place] [facility] Tobacco Use History This section includes a history of the smoking, or tobacco- related health factors, that were collected on or before the date of the Encounter. The data comes from the ME facility where the Encounter took place. Date/Time Smoking Status/Tobacco Use Comment [facility] July 09, 2020 02:00 PM VA-TOBACCO FORMER USER [place] BUTL[facility] July 09, 2020 02:00 PM VA-TOBACCO QUIT 15 YRS OR MORE [facility] Apr 17, 2019 02:39 PM INPT NO TOBACCO USE IN LAST 30 DAYS [facility] Feb 04, 2019 10:37 AM ME-TOBACCO NEVER USED [place] [facility] Oct 15, 2018 02:43 PM INPT NO TOBACCO USE IN LAST 30 DAYS [facility] Oct 13, 2018 11:30 PM INPT NO TOBACCO USE IN LAST 30 DAYS [facility] Sep 02, 2018 05:50 PM INPT NO TOBACCO USE IN LAST 30 DAYS [facility] Aug 12, 2018 07:28 PM INPT NO TOBACCO USE IN LAST 30 DAYS [facility] Jan 30, 2018 03:28 PM VA-TOBACCO FORMER USER [place] [facility] Jan 30, 2018 03:28 PM VA-TOBACCO QUIT 15 YRS OR MORE [facility] May 29, 2017 04:53 PM INPT NO TOBACCO USE IN LAST 30 DAYS [facility] Apr 25, 2017 10:44 PM INPT NO TOBACCO USE IN LAST 30 DAYS [facility] Jan 01, 2017 06:40 PM INPT NO TOBACCO USE IN LAST 30 DAYS [facility] Dec 21, 2016 02:43 PM FORMER TOBACCO USER 7Y OR GREATER [facility] Sep 24, 2013 08:52 AM FORMER TOBACCO USER 7Y OR GREATER [facility] Advance Directives: All historical and current Section Date Range: From patient's date of to the date document was created. This section includes ALL of a patient's completed or amended ME Advance and Rescinded Directives. The entries below indicate that a directive exists for the patient, but an actual copy is not included with this document. The data comes from all ME facilities. Date Advance Directives Provider Source May 29, 2017 CLINICAL WARNING CORNELIO FREITAS [facility] May 16, 2017 ADVANCE DIRECTIVE SERENITY BUENROSTRO [facility] May 16, 2017 ADVANCE DIRECTIVE DISCUSSION [facility] May 04, 2017 CLINICAL WARNING MAGO DIAMODN [facility] May 04, 2017 CLINICAL WARNING GAEL ROSARIO [facility] Apr 26, 2017 CLINICAL WARNING JENNIFER DE LEON [facility] Jan 01, 2017 CLINICAL WARNING AYDE WELLS [facility] Jun 09, 2004 ADVANCE DIRECTIVE DARYL VILLARREAL [facility] Jun 07, 2004 ADVANCE DIRECTIVE SHERYL HOLLOWAY [facility] Encounter Notes: All associated encounter notes This section contains the clinical notes associated to the Encounter. Date/Time Encounter Note(s) Provider Source July 05, 2021 10:00 AM COMMUNITY [facility]DC CARE NOTE: ALBERTO FREY [facility] LOCAL TITLE: [facility] EXTENSION STANDARD TITLE: COMMUNITY [facility] CARE NOTE DATE OF NOTE: JULY 05, 2021@10:00 ENTRY DATE: JULY 05, 2021@10:00:32 AUTHOR: ALBERTO FREY EXP COSIGNER: URGENCY: STATUS: COMPLETED [facility] EXTENSION Has ADDENDA [facility] [place] Bill Review Date of review: June VA contract start date: May Community Alf (CN): [facility] enter Business office: Phone: Other [facility] point of contact: STEVIE Ring Administrative eligibility: Service connected 70 % or higher Clinical documentation reviewed for eligibility: [facility] , current history and physical, Minimum Data Set, 5 days of progress notes, 5 days of rehab notes Former living situation: Home alone. Previous services and resources: None; previousl y independent with ADLs and IADLs [place] and family goals: Return home. Clinical summary/diagnosis: Mr. Mojica is a 75 year old who admitted to [facility] for short-term rehab following hospitaliz ation at [facility] for elective podiatric surgery t o treat diabetic ulcer of the right midfoot. NWB orders fo r RLE following skin flap closure surgery on 06/13/21 for 8 weeks. Post-op he was found to hav e aspiration pneumonia and was treated with supplemental O2 and oral antibiotics. Trans ferred to [facility] for ongoing nursing cares and rehab. Par ticipating with therapy and working on using a knee scooter. Has f/u with Obdulio Copeland DPM at [facility]. Other medical diagnosis includes DM type 2, CHF, depression, RAJESH, GERD, RLS, CAD, essential tremor, aortic valvar stenosis, a nd PVD. Alert and oriented x4. Independent to limited as sist of 1 with ADLs. He has improved functional transfer s with increased independence, however, occasionally requires cueing for increased safety. Requires d aily dressing changes to RLE surgical incision, which is noted to be healing well. Requires once weekly dressing change to L heel closed sore. 07/04/2021 CPT score 5.1/5.6 needs continued longterm care based on the following indicators: senior care, Skilled rehab Recommended contract extension: 30 days to allow time for completion of therapies, getting equipment for home, and surgi arianna site wound healing. /vinicio/ ALBERTO FREY RN Community Health Nurse Coordinator Signed: 07/07/2021 08:23 Receipt Acknowledged By: 07/07/2021 08:33 /es/ LENIN JEWELL DO PHYSICIAN, PM&R 07/07/2021 08:33 /es/ JENNIFER WAKEFIELD CHARGEMASTER ANALYST AUTOMATIC ENGRAVER * AWAITING SIGNATURE * FRANKLIN LARRY 07/07/2021 08:46 /es/ Jamir Montoya MD MD (Internal Medicine / Geriatrics) * AWAITING SIGNATURE * STEVE DUVALL 07/07/2021 ADDENDUM STATUS: COMPLETED [facility] Contract Extension Interdisciplinary evaluation held on date of w. Community Health Nurse Coordinator, Clinical Infection Control Manager, PM&R Physician, EC&R Geriatrics Physician, and [facility] Program Co-Directors were in attendance. VA Contract extension approved for 30 days VA Contract authorization dates: 07/16/2021 to Comments: Notified STEVIE Ring and copy of this note faxed to [facility] business office. /darya FREY RN Community Health Nurse Coordinator Signed: 07/07/2021 08:45 Receipt Acknowledged By: * AWAITING SIGNATURE * JAMIR HICKS * AWAITING SIGNATURE * LEI ABRAHAM * AWAITING SIGNATURE * STEVE DUVALL
--- OUTSIDE RECORDS SUMMARY | 2021-12-23 18:28 | XMS_ITS | Encounter Summary ---
:1945 Author Organization [facility] Address [address] [place] [id number] Support Name Relationship Address Phone FRANCES GANDARA Unavailable [address] [place] [address] FRANCES GANDARA Unavailable [address] [place] [address] FRANCES GANDARA Unavailable [address] [place] [address] FRANCES GANDARA Unavailable [address] [place] [address] Insurance Providers: All historical and current Section [...] MEDICARE MEDICARE PART Apr 19, PART A [id number] [place] ([place] (M) A 2007 50A [phone] JESSICA MEDICARE MEDICARE PART Apr 19, PART A [id number] 800 [place] ONOFRE (WNR) (M) A 2007 [id number] [phone] JESSICA Selected Encounter This section includes the information on record at [place] for the Encounter. Date/Time Encounter Type Encounter [...] this document. The data comes from all [place] facilities. Date Advance Directives Provider Source May 29, 2017 CLINICAL WARNING CORNELIO FREITAS [facility] May 16, 2017 ADVANCE DIRECTIVE SERENITY BUENROSTRO [facility] May 16, 2017 ADVANCE DIRECTIVE DISCUSSION SERENITY [place]STRO [place] [facility] May 04, 2017 [...]
--- OUTSIDE RECORDS SUMMARY | 2021-12-23 18:29 | XMS_ITS | Encounter Summary ---
:1945 Author Organization Department [facility] rs Address [address] [place] [id number] Support Name Relationship Address Phone FRANCES GANDARA Unavailable [address] [place] [address] FRANCES GANDARA Unavailable [address] [place] [address] FRANCES GANDARA Unavailable [address] [place] [address] FRANCES GANDARA Unavailable [address] [place] [address] Insurance Providers: All historical and current Section [...] MEDICARE MEDICARE PART Apr 19, PART A [id number] Whit MOJICA (WNR) (M) A 2007 50A [phone] JESSICA MEDICARE MEDICARE PART Apr 19, PART A [id number] 800 Whit [place] (WNR) (M) A 2007 [id number] [phone] JESSICA Selected Encounter This section includes the information on [place] at [place] for the Encounter. Date/Time Encounter Type Encounter Reason Provider Source Description July 07, 2021 OFFICE O/P EST VASCULAR SURGERY ICD-10-CM STARR RICHEY 02:00 PM HI 40-54 MIN E11.621 Type 2 diabetes mellitus with foot ulcer with Provider Comments: Type 2 Diabetes Mellitus with Foot Ulcer IHE Encounter Template Text not used by [place] Assessments - Encounter Diagnoses This section includes the primary and secondary diagnoses documented for the Encounter. Date/Time Primary/Secondary Diagnosis Name Provider Source Diagnosis July 07, 2021 PRIMARY Type 2 diabetes STARR RICHEY [place] 03:40 PM mellitus with foot HCS ulcer July 07, 2021 SECONDARY Charcot's joint, STARR RICHEY [place] 03:40 PM left ankle and HCS foot July 07, 2021 SECONDARY Peripheral ST[place]HEY [place] 03:[place] vascular disease, HCS unspecified July 07, 2021 SECONDARY Type 2 diabetes STARR [place]HEY [place] 03:[place] PM mellitus with HCS unspecified complications Plan [...] Appointment Type Appointment Facili ty Name July 13, 2021 09:00 AM AMBULATORY - [facility] Tasha [facility] July 14, 2021 02:10 PM AMBULATORY - NONE [facility] Jul 21, 2021 09:45 AM AMBULATORY - NONE [facility] Jul 26, 2021 10:45 AM AMBULATORY - NONE [facility] Jul 29, 2021 11:30 AM AMBULATORY - NONE [facility] Jul 29, 2021 01:00 PM AMBULATORY - NONE [facility] Jul 29, 2021 02:00 PM AMBULATORY - MEDICINE [facility] Aug 02, 2021 11:30 AM AMBULATORY - NONE [facility] Aug 04, 2021 01:30 PM AMBULATORY - NONE [facility] Aug 11, 2021 12:30 PM AMBULATORY - NONE [facility] Aug 18, 2021 08:00 AM AMBULATORY - NONE [facility] Aug 19, 2021 10:30 AM AMBULATORY - NONE [facility] Aug 23, 2021 12:00 PM AMBULATORY - NONE [facility] Aug 23, 2021 01:00 PM AMBULATORY - NONE [facility] Aug 28, 2021 12:59 PM AMBULATORY - MEDICINE [facility] CS Sep 04, 2021 07:33 PM AMBULATORY - MEDICINE [facility] Sep 06, 2021 01:30 PM AMBULATORY - NONE [facility] Sep 21, 2021 02:30 PM AMBULATORY - SURGERY [facility] Sep 22, 2021 01:00 PM AMBULATORY - NONE [facility] Sep 28, 2021 07:00 AM AMBULATORY - NONE [facility] Lab Results: +/- 30 days of the [...] Interpretation Reference Range Comment Jul 29, 2021 [facility] DRUG SCREEN PANEL,URINE Spec imen Type: URINE 01:18 PM Comment: Presum ptive Positive by screen, results not confirmed. Ordering Provid er: GISELLE MARTINEZ Report Released Date/Time: Jul 29, 2021 01:06 PM Reporting Lab: [facility] [address] [facility] [address] Performing Lab: [facility] [address] [facility] [address] BARBITURATES Negative Negative AMPHETAMINES Negative Negative COCAINE Negative Negative BENZODIAZEPINES Negative Negative CANNABINOIDS Negative Negative METHADONE Negative Negative OPIATES Negative Negative PHENCYCLIDINE Negative Negative ETHANOL,URINE Negative Negative DRUG SCREEN CREAT 64.7 >20.0 OXYCODONE POSITIVE H Negative BUPRENORPHINE Negative Negative TRAMADOL Negative Negative FENTANYL Negative Negative Jul 29, 2021 12:30 PM [facility] HEMOGLOBIN A1C Specim en Type: BLOOD No comment enter ed. Ordering Provid er: GISELLE MARTINEZ Report Released Date/Time: Feb 28, 2021 06:22 PM Reporting Lab: [facility] [address] [facility] [address] Performing Lab: [facility] [address] [facility] [address] HEMOGLOBIN A1C 7.0 H 4.0-6.0 Jul 29, 2021 12:30 PM [facility] AST/SGOT Specim en Type: PLASMA No comment enter ed. Ordering Provid er: GISELLE MARTINEZ Report Released Date/Time: Feb 28, 2021 06:22 PM Reporting Lab: [facility] [address] [facility] [address] Performing Lab: [facility] [address] [facility] [address] AST/SGOT 13 <34 Jul 29, 2021 12:30 PM [facility] ALT/SGPT Specim en Type: PLASMA No comment enter ed. Ordering Provid er: GISELLE MARTINEZ Report Released Date/Time: Feb 28, 2021 06:22 PM Reporting Lab: [facility] [address] [facility] [address] Performing Lab: [facility] [address] [facility] [address] ALT/SGPT 15 <55 Jul 29, 2021 12:30 PM [facility] CBC Specim en Type: BLOOD No comment enter ed. Ordering Provid er: GISELLE MARTINEZ Report Released Date/Time: Feb 28, 2021 06:22 PM Reporting Lab: [facility] [address] [facility] [address] Performing Lab: [facility] [address] [facility] [address] WBC 6.29 4.0-11.0 RBC 4.82 4.6-6.2 HGB 13.3 L 13.5-17.9 HCT 42.4 41-54 MCV 88.0 80-100 MCH 27.6 27-33 MCHC 31.4 L 32.0-37.5 PLT 286 150-400 MPV 9.5 7.4-10.4 RDW 16.8 H 11.5-14.5 Jul 29, 2021 12:30 [facility] BASIC METABOLIC Specimen Type: PLASMA PM PANEL+MG No comment enter ed. Ordering Provid er: GISELLE MARTINEZ Report Released Date/Time: Feb 28, 2021 06:22 PM Reporting Lab: [facility] [address] [facility] [address] Performing Lab: [facility] [address] [facility] [address] CREATININE 0.7 0.7-1.2 UREA NITROGEN 12 8-26 [...] smoking and tobacco-related health factors from the [place] facility where the Encounter took place.Current Smoking Status This section includes the most current smoking, or tobacco-related health factor, from the [facility] where the Encounter took place. Date/Time Current Smoking Status Comment Facility Apr 25, 2021 11:00 AM [place]-TOBACCO NEVER USED [place] [facility] Tobacco Use History This section includes a history of the smoking, or tobacco- related health factors, that were collected on or before the date of the Encounter. The data comes from the [facility] where the Encounter took place. Date/Time Smoking Status/Tobacco Use Comment [facility] it July 09, 2020 02:00 PM [place]-TOBACCO FORMER USER [place] [facility] July 09, 2020 02:00 PM VA-TOBACCO QUIT 15 YRS OR MORE [facility] Apr 17, 2019 02:39 PM INPT NO TOBACCO USE IN LAST 30 DAYS [facility] Feb 04, 2019 10:37 AM [place]-TO[place]CO NEVER USED [place] [facility] Oct 15, 2018 02:43 PM INPT NO TOBACCO USE IN LAST 30 DAYS [facility] Oct 13, 2018 11:30 PM INPT NO TOBACCO USE IN LAST 30 DAYS [facility] Sep 02, 2018 05:50 PM INPT NO TOBACCO USE IN LAST 30 DAYS [facility] Aug 12, 2018 07:28 PM INPT NO TOBACCO USE IN LAST 30 DAYS [facility] Jan 30, 2018 03:28 PM VA-TOBACCO FORMER USER [place] [facility] Jan 30, 2018 03:28 PM [place]-TO[place] QUIT 15 YRS OR MORE [facility] May 29, 2017 04:53 PM INPT NO TOBACCO USE IN LAST 30 DAYS [facility] Apr 25, 2017 10:44 PM INPT NO TOBACCO USE IN LAST 30 DAYS [facility] Jan 01, 2017 06:40 PM INPT NO TOBACCO USE IN LAST 30 DAYS [facility] Dec 21, 2016 02:43 PM FORMER TOBACCO USER 7Y OR GREATER [facility] Sep 24, 2013 08:52 AM FORMER TOBACCO USER 7Y OR GREATER [facility] Advance Directives: All historical [...] CENTER May 16, 2017 ADVANCE DIRECTIVE CHITRASERENITY ARTEMUS V [facility] May 16, 2017 ADVANCE DIRECTIVE DISCUSSION CHITRAAVERYSERENITY Trey TRISH SHEPHERDEAAMAUR[facility] May 04, 2017 CLINICAL WARNING MAGO DIAMOND [facility] May 04, 2017 CLINICAL WARNING GAEL ROSARIO [facility] Apr 26, 2017 CLINICAL WARNING JENNIFER DE LEON [facility] Jan 01, 2017 CLINICAL WARNING AYDE WELLS [facility] Jun 09, 2004 ADVANCE DIRECTIVE DARYL VILLARREAL [facility] Jun 07, 2004 ADVANCE DIRECTIVE SHERYL HOLLOWAY [facility] Encounter Notes: All associated encounter notes This section contains the clinical notes associated to the Encounter. Date/Time Encounter Note(s) Provider Source July 07, 2021 08:21 AM WOUND CARE NOTE: ROSSISTARR Garay PIERRE IS [facility] LOCAL TITLE: WOUND CLINIC NOTE STANDARD TITLE: WOUND CARE NOTE DATE OF NOTE: JULY 07, 2021@08:21 ENTRY DATE: JULY 07, 2021@08:21:49 AUTHOR: STARR RICHEY EXP COSIGNER: URGENCY: STATUS: COMPLETED WOUND CLINIC NOTE Has ADDENDA Chief complaint: Wound PERTINENT DIAGNOSIS COMPLICATING WOUND HEALING: DM, Charcot joint ASSESSMENT/PLAN Impression: Wound on his left foot is resolved. ETIOLOGY: 1. Right DFU, Charcot joint, manage by [facility] podia try 2. Left DFU, resolved -In clinic a foam adhesive dressing was applied for protection. He was instructed to remove it in o ne week and does not need to apply another dressing. Encourage him to request that his [facility] distribution engineering technologist evaluate it at his next appointment. 2. DM, HEMOGLOBIN A1C 9.5 H (12/15/20)- [facility] ed blood sugar control for wound healing. -PCP increased medication -PAVE 3 Risk -He will start using the Podimetric mat on his left foot. 3. Patient will be discharged from the wound cli kwaku. Visit time was 40 minutes with more than 50% in care and coordination of care. HISTORY OF PRESENT ILLNESS: Patient returns for a follow up of his left foot Charcot joint ulcer. He states that on 06/03/2021 he had his right Charc ot joint surgery. He is doing well and plans to return home tomorrow after a post hospi rodriguez stay in a shelter because he has met his therapy goals. He current ly is transferring but he is not ambulating. He has home care set up for dressing changes on his right foot. Today, there is an intact splint covering his fo ot that was changed earlier today at the care center. Th e dressing was not removed to assess the incisional site. He has a post op follow up appointment nathaniel turner. On his left foot, he reports that no one is observing this wound. How ever, the [facility] is applying a foam adhesive over it. He is unsure h ow it is doing. PAST MEDICAL HISTORY: Active problems - Computerized [...] Alcohol use: rarely ALLERGY: FACILITY ALLERGY/ADR -------- [facility] NO KNOWN ALLERGIES MEDICATIONS: Reviewed Physical Exam: General: In no apparent distress Head: Normocephalic atraumatic Psychiatric: Cooperative Respiratory: unlabored breathing Cardiovascular: EDEMA: 0 PULSES: not palpable Neurological: Wound Pain: no Integumentary: Wound resolved LABS: Collection DT Specimen Test Name Result [...] - 50 TSH ____ INR 1.1 (06/15/20) Right foot Wound Instructions: 1. Cleanse the [...] be having surgery on the foot. Starr Leal, MANAGEMENT ANALYST, SPINNING 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, CWCN /vinicio/ STARR RICHEY NP NURSE PRACTITIONER Signed: 07/07/2021 15:41 07/13/2021 ADDENDUM STATUS: COMPLETED Patient had his surgery and is requesting anna sesay PA requests wound care eval the need for it. Thanks /vinicio/ Giselle Martinez MD Staff Physician Signed: 07/13/2021 12:10 Receipt Acknowledged By: 07/13/2021 12:28 /darya RICHEY NP NURSE PRACTITIONER 07/13/2021 ADDENDUM STATUS: COMPLETED I have discharged him from t wound clinic and I am not following his surgical wound on his right foot. The pharmacist in [facility] manages these requests will need to work with his [facility] provider to determine if th e dressing is appropriate for him. /darya RICHEY NP NURSE PRACTITIONER Signed: 07/13/2021 12:31 Receipt Acknowledged By: * AWAITING SIGNATURE * GISELEL MARTINEZ
--- OUTSIDE RECORDS SUMMARY | 2021-12-23 18:30 | XMS_ITS | Encounter Summary ---
:1945 Author Organization Department [facility] rs Address [address] [place] [address] Support Name Relationship Address Phone FRANCES GANDARA Unavailable [address] [place] [address] FRANCES GANDARA Unavailable [address] [place] [address] FRANCES GANDARA Unavailable [address] [place] [address] FRANCES GANDARA Unavailable [address] [place] [address] Insurance Providers: All historical and current Section [...] MEDICARE MEDICARE PART Apr 19, PART A [id number] 800 Whit [place] (WNR) (M) A 2007 50A [phone] JESSICA MEDICARE MEDICARE PART Apr 19, PART A [id number] 800 Whit [place] (WNR) (M) A 2007 [id number] [phone] JESSICA Selected Encounter This section includes the information on record at [place] for the Encounter. Date/Time Encounter Type Encounter Description Reason Provider Source July 07, 2021 01:00 Outpatient Encounter ADMIN MORE [facility] PM ([facility]) IHE Encounter Template Text not used by [place] Plan of Treatment: Future Appointments (+ 6 [...] 20 appointments. The data comes from all [place] treatment facilities. Appointment Date/Time Appointment Type Appointment Facili ty Name July 13, 2021 09:00 AM [facility] July 14, 2021 02:10 [...] 29, 2021 02:00 PM AMBULATORY - MEDICINE [facility] Aug 02, 2021 11:30 AM AMBULATORY - NONE [facility] Aug 04, 2021 01:30 PM AMBULATORY - NONE [facility] Aug 11, 2021 12:30 PM AMBULATORY - NONE [facility] Aug 18, 2021 08:00 AM AMBULATORY - NONE [facility] Aug 19, 2021 10:30 AM AMBULATORY - NONE [facility] Aug 23, 2021 12:00 PM AMBULATORY - NONE [facility] Aug 23, 2021 01:00 PM AMBULATORY - NONE [facility] Aug 28, 2021 12:59 PM AMBULATORY - MEDICINE [facility] Sep 04, 2021 07:33 PM AMBULATORY - MEDICINE [facility] Sep 06, 2021 01:30 PM AMBULATORY - NONE [facility] Sep 21, 2021 02:30 PM AMBULATORY - SURGERY [facility] Sep 22, 2021 01:00 PM AMBULATORY - NONE [facility] Sep 28, 2021 07:00 AM AMBULATORY - NONE [facility] Lab Results: +/- 30 days of the encounter This section includes the Chemistry and Hematology Lab Results on record with [place] for the patient. Radiology Reports and Pathology Reports are provided separately, in subsequent sections.Lab Results This section contains the Chemistry/Hematology Results that were resulted 30 days before or 30 daysafter the date of the Encounter. Date/Time Source Result Type Result - Unit Interpretation Reference Range Comment Jul 29, 2021 [facility] DRUG SCREEN PANEL,URINE Spec imen Type: URINE 01:18 PM Comment: Presum ptive Positive by screen, results not confirmed. Ordering Provid er: CARIDAD DENNIS Report Released Date/Time: Jul 29, 2021 01:06 PM Reporting Lab: [facility] [address] [facility] [address] Performing Lab: [facility] [address] [facility] [address] BARBITURATES Negative Negative AMPHETAMINES Negative Negative COCAINE Negative Negative BENZODIAZEPINES Negative Negative CANNABINOIDS Negative Negative METHADONE Negative Negative OPIATES Negative Negative PHENCYCLIDINE Negative Negative ETHANOL,URINE Negative Negative DRUG SCREEN CREAT 64.7 >20.0 OXYCODONE POSITIVE H Negative BUPRENORPHINE Negative Negative TRAMADOL Negative Negative FENTANYL Negative Negative Jul 29, 2021 12:30 PM [facility] HEMOGLOBIN A1C Specim en Type: BLOOD No comment enter ed. Ordering Provid er: CARIDAD DENNIS Report Released Date/Time: Feb 28, 2021 06:22 PM Reporting Lab: [facility] [address] [facility] [address] Performing Lab: [facility] [address] [place] [facility] [address] HEMOGLOBIN A1C 7.0 H 4.0-6.0 Jul 29, 2021 12:30 PM [facility] AST/SGOT Specim en Type: PLASMA No comment enter ed. Ordering Provid er: CARIDAD DENNIS Report Released Date/Time: Feb 28, 2021 06:22 PM Reporting Lab: [facility] [address] [place] [facility] [address] Performing Lab: [facility] [address] [place] [facility] [address] AST/SGOT 13 <34 Jul 29, 2021 12:30 PM [facility] ALT/SGPT Specim en Type: PLASMA No comment enter ed. Ordering Provid er: CARIDAD DENNIS Report Released Date/Time: Feb 28, 2021 06:22 PM Reporting Lab: [facility] [address] [facility] [address] Performing Lab: [facility] [address] [place] [facility] [address] ALT/SGPT 15 <55 Jul 29, 2021 12:30 PM [facility] CBC Specim en Type: BLOOD No comment enter ed. Ordering Provid er: CARIDAD DENNIS Report Released Date/Time: Feb 28, 2021 06:22 PM Reporting Lab: [facility] [address] [facility] [address] Performing Lab: [facility] [address] [place] [facility] [address] WBC 6.29 4.0-11.0 RBC 4.82 4.6-6.2 HGB 13.3 L 13.5-17.9 HCT 42.4 41-54 MCV 88.0 80-100 MCH 27.6 27-33 MCHC 31.4 L 32.0-37.5 PLT 286 150-400 MPV 9.5 7.4-10.4 RDW 16.8 H 11.5-14.5 Jul 29, 2021 12:30 [facility] BASIC METABOLIC Specimen Type: PLASMA PM PANEL+MG No comment enter ed. Ordering Provid er: CARIDAD DENNIS Report Released Date/Time: Feb 28, 2021 06:22 PM Reporting Lab: [facility] [address] Performing Lab: [facility] [address] CREATININE 0.7 0.7-1.2 UREA NITROGEN 12 8-26 [...] smoking and tobacco-related health factors from the [facility] where the Encounter took place.Current Smoking Status This section includes the most current smoking, or tobacco-related health factor, from the [place] facility where the Encounter took place. Date/Time Current Smoking Status Comment Facility Apr 25, 2021 11:00 AM [place]-TOBACCO NEVER USED [facility] BLANTON [facility] Tobacco Use History This section includes a history of the smoking, or tobacco- related health factors, that were collected on or before the date of the Encounter. The data comes from the [place] facility where the Encounter took place. Date/Time Smoking Status/Tobacco Use Comment [facility] July 09, 2020 02:00 PM VA-TOBACCO FORMER USER WILLY BUTLER [facility] July 09, 2020 02:00 PM VA-TOBACCO QUIT 15 YRS OR MORE [facility] Apr 17, 2019 02:39 PM INPT NO TOBACCO USE IN LAST 30 DAYS [facility] Feb 04, 2019 10:37 AM VA-TOBACCO NEVER USED [place] HAR[place]ER [facility] Oct 15, 2018 02:43 [...] 03:28 PM VA-TOBACCO FORMER USER [place] [facility] Jan 30, 2018 03:28 [...] ALL of a patient's completed or amended [place] Advance and Rescinded Directives. The entries below indicate that a directive exists for the patient, but an actual copy is not included with this document. The data comes from all [place] facilities. Date Advance Directives Provider Source May 29, 2017 CLINICAL WARNING CORNELIO FREITAS [facility] May 16, 2017 ADVANCE DIRECTIVE SERENITY BUENROSTRO [facility] May 16, 2017 ADVANCE DIRECTIVE DISCUSSION SERENITY [place]O [place] [facility] May 04, 2017 CLINICAL WARNING MAGO DIAMOND [facility] May 04, 2017 CLINICAL WARNING GAEL ROSARIO [facility] Apr 26, 2017 CLINICAL WARNING JENNIFER DE LEON [facility] Jan 01, 2017 CLINICAL WARNING AYDE WELLS [facility] Jun 09, 2004 ADVANCE DIRECTIVE DARYL VILLARREAL [facility] Jun 07, 2004 ADVANCE DIRECTIVE SHERYL HOLLOWAY [facility]
--- OUTSIDE RECORDS SUMMARY | 2021-12-23 18:32 | XMS_ITS | Encounter Summary ---
:1945 Author Organization [facility] Address [address] [place] [address] Support Name Relationship Address Phone FRANCES GANDARA Unavailable [address] [place] [address] FRANCES GANDARA Unavailable [address] [place] [address] FRANCES GANDARA Unavailable [address] [place] [address] FRANCES GANDARA Unavailable [address] [place] [address] Insurance Providers: All historical and current Section [...] MEDICARE MEDICARE PART Apr 19, PART A [id number] Whit MOJICA (WNR) (M) A 2007 50A [phone] JESSICA MEDICARE MEDICARE PART Apr 19, PART A [id number] 800 Whit MOJICA (WNR) (M) A 2007 [id number] [phone] JESSICA Selected Encounter This section includes the information on record at [place] for the Encounter. Date/Time Encounter Type Encounter Description Reason Provider Source July 08, 2021 02:21 Outpatient Encounter TELEPHONE/ANCILLARY PM IHE Encounter Template Text not used by [place] Plan of Treatment: Future Appointments (+ 6 [...] 20 appointments. The data comes from all [place] treatment facilities. Appointment Date/Time Appointment Type Appointment Facili ty Name July 13, 2021 09:00 AM [facility] July 14, 2021 02:10 PM AMBULATORY - NONE [facility] Jul 21, 2021 09:45 AM AMBULATORY - NONE [facility] Jul 26, 2021 10:45 AM AMBULATORY - NONE [facility] Jul 29, 2021 11:30 AM AMBULATORY - NONE [facility] Jul 29, 2021 01:00 PM AMBULATORY - NONE [facility] Jul 29, 2021 02:00 PM AMBULATORY - MEDICINE [facility] Aug 02, 2021 11:30 AM AMBULATORY - NONE [facility] Aug 04, 2021 01:30 PM AMBULATORY - NONE [facility] Aug 11, 2021 12:30 PM AMBULATORY - NONE [facility] Aug 18, 2021 08:00 AM AMBULATORY - NONE [facility] Aug 19, 2021 10:30 AM AMBULATORY - NONE [facility] Aug 23, 2021 12:00 PM AMBULATORY - NONE [facility] Aug 23, 2021 01:00 PM AMBULATORY - NONE [facility] Aug 28, 2021 12:59 PM AMBULATORY - MEDICINE [facility] Sep 04, 2021 07:33 PM AMBULATORY - [facility]ICINE [facility] Sep 06, 2021 01:30 PM AMBULATORY - NONE [facility] Sep 21, 2021 02:30 PM AMBULATORY - SURGERY [facility] Sep 22, 2021 01:00 PM AMBULATORY - NONE [facility] Sep 28, 2021 07:00 AM AMBULATORY - NONE [facility] Lab Results: +/- 30 days of the encounter This section includes the Chemistry and Hematology Lab Results on record with [place] for the patient. Radiology Reports and Pathology Reports are provided separately, in subsequent sections.Lab Results This section contains the Chemistry/Hematology Results that were resulted 30 days before or 30 daysafter the date of the Encounter. Date/Time Source Result Type Result - Unit Interpretation Reference Range Comment Jul 29, 2021 [facility] DRUG SCREEN PANEL,URINE Spec imen Type: URINE 01:18 PM Comment: Presum ptive Positive by screen, results not confirmed. Ordering Provid er: CARIDAD DENNIS Report Released Date/Time: Jul 29, 2021 01:06 PM Reporting Lab: [facility] [address] [facility] [address] Performing Lab: [facility] [address] [facility] [address] BARBITURATES Negative Negative AMPHETAMINES Negative Negative COCAINE Negative Negative BENZODIAZEPINES Negative Negative CANNABINOIDS Negative Negative METHADONE Negative Negative OPIATES Negative Negative PHENCYCLIDINE Negative Negative ETHANOL,URINE Negative Negative DRUG SCREEN CREAT 64.7 >20.0 OXYCODONE POSITIVE H Negative BUPRENORPHINE Negative Negative TRAMADOL Negative Negative FENTANYL Negative Negative Jul 29, 2021 12:30 PM [facility] HEMOGLOBIN A1C Specim en Type: BLOOD No comment enter ed. Ordering Provid er: CARIDAD DENNIS Report Released Date/Time: Feb 28, 2021 06:22 PM Reporting Lab: [facility] [address] [facility] [address] Performing Lab: [facility] [address] [facility] [address] HEMOGLOBIN A1C 7.0 H 4.0-6.0 Jul 29, 2021 12:30 PM [facility] AST/SGOT Specim en Type: PLASMA No comment enter ed. Ordering Provid er: CARIDAD DENNIS Report Released Date/Time: Feb 28, 2021 06:22 PM Reporting Lab: [facility] [address] [facility] [address] Performing Lab: [facility] [address] [facility] [address] AST/SGOT 13 <34 Jul 29, 2021 12:30 PM [facility] ALT/SGPT Specim en Type: PLASMA No comment enter ed. Ordering Provid er: CARIDAD DENNIS Report Released Date/Time: Feb 28, 2021 06:22 PM Reporting Lab: [facility] [address] [facility] [address] Performing Lab: [facility] [address] [facility] [address] ALT/SGPT 15 <55 Jul 29, 2021 12:30 PM [facility] CBC Specim en Type: BLOOD No comment enter ed. Ordering Provid er: CARIDAD DENNIS Report Released Date/Time: Feb 28, 2021 06:22 PM Reporting Lab: [facility] [address] [facility] [address] Performing Lab: [facility] [address] [facility] [address] WBC 6.29 4.0-11.0 RBC 4.82 4.6-6.2 HGB 13.3 L 13.5-17.9 HCT 42.4 41-54 MCV 88.0 80-100 MCH 27.6 27-33 MCHC 31.4 L 32.0-37.5 PLT 286 150-400 MPV 9.5 7.4-10.4 RDW 16.8 H 11.5-14.5 Jul 29, 2021 12:30 [facility] BASIC METABOLIC Specimen Type: PLASMA PM PANEL+MG No comment enter ed. Ordering Provid er: CARIDAD DENNIS Report Released Date/Time: Feb 28, 2021 06:22 PM Reporting Lab: [facility] [address] [facility] [address] Performing Lab: [facility] [address] [facility] [address] CREATININE 0.7 0.7-1.2 UREA NITROGEN 12 8-26 [...] smoking and tobacco-related health factors from the [place] facility where the Encounter took place.Current Smoking Status This section includes the most current smoking, or tobacco-related health factor, from the [place] facility where the Encounter took place. Date/Time Current Smoking Status Comment Facility Apr 25, 2021 11:00 AM [place]-TOBACCO NEVER USED [place] [facility] Tobacco Use History This section includes a history of the smoking, or tobacco- related health factors, that were collected on or before the date of the Encounter. The data comes from the [place] facility where the Encounter took place. Date/Time Smoking Status/Tobacco Use Comment [facility] jorge alberto July 09, 2020 02:00 PM VA-TOBACCO FORMER USER [place] [facility] July 09, 2020 02:00 PM VA-TOBACCO QUIT 15 YRS OR MORE [facility] Apr 17, 2019 02:39 PM INPT NO TOBACCO USE IN LAST 30 DAYS [facility] Feb 04, 2019 10:37 AM [place]-TOBACCO NEVER USED [place] [facility] Oct 15, 2018 02:43 [...] 2018 03:28 PM VA-TOBACCO FORMER USER [facility] Jan 30, 2018 03:28 PM VA-TOBACCO [...] ALL of a patient's completed or amended [place] Advance and Rescinded Directives. The entries below indicate that a directive exists for the patient, but an actual copy is not included with this document. The data comes from all [place] facilities. Date Advance Directives Provider Source May 29, 2017 CLINICAL WARNING CORNELIO FREITAS [facility] May 16, 2017 ADVANCE DIRECTIVE SERENITY BUENROSTRO [facility] May 16, 2017 ADVANCE DIRECTIVE DISCUSSION [facility] May 04, 2017 CLINICAL WARNING MAGO DIAMOND [facility] May 04, 2017 CLINICAL WARNING GAEL ROSARIO [facility] Apr 26, 2017 CLINICAL WARNING JENNIFER DE LEON [facility] Jan 01, 2017 CLINICAL WARNING AYDE WELLS [facility] Jun 09, 2004 ADVANCE DIRECTIVE DARYL VILLARREAL [facility] Jun 07, 2004 ADVANCE DIRECTIVE SHERYL HOLLOWAY [facility] Encounter Notes: All associated encounter notes This section contains the clinical notes associated to the Encounter. 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 /vinicio/ KRAIG OROZCO [employer] PERFORMING [address] MANAGER Signed: 07/08/2021 14:23 Receipt Acknowledged By: * AWAITING SIGNATURE * ESTEVAN GONZALEZ * AWAITING SIGNATURE * JAMIR HICKS * AWAITING SIGNATURE * LEI ABRAHAM * AWAITING SIGNATURE * ALBERTO FREY
--- OUTSIDE RECORDS SUMMARY | 2021-12-23 18:34 | XMS_ITS | Encounter Summary ---
:1945 Author Organization [facility] Address [address] [place] [address] Support Name Relationship Address Phone FRANCES GANDARA Unavailable [address] [place] [address] FRANCES GANDARA Unavailable [address] [place] [address] FRANCES GANDARA Unavailable [address] [place] [address] FRANCES GANDARA Unavailable [address] [place] [address] Insurance Providers: All historical and current Section [...] MEDICARE MEDICARE PART Apr 19, PART A [id number] 800 Whit MOJICA (WNR) (M) A 2007 50A [phone] JESSICA MEDICARE MEDICARE PART Apr 19, PART A [id number] 800 Whit MOJICA (WNR) (M) A 2007 [id number] [phone] JESSICA Selected Encounter This section includes the information on record at [place] for the Encounter. Date/Time Encounter Type Encounter Description Reason Provider Source July 11, 2021 01:01 Outpatient Encounter TELEPHONE TRIAGE PM IHE Encounter Template Text not used by [place] Plan of Treatment: Future Appointments (+ 6 [...] 20 appointments. The data comes from all [place] treatment facilities. Appointment Date/Time Appointment Type Appointment Facili ty Name July 13, 2021 09:00 AM AMBULATORY - REHAB MEDICINE [facility] July 14, 2021 02:10 PM AMBULATORY - NONE [facility] Jul 21, 2021 09:45 AM AMBULATORY - NONE [facility] Jul 26, 2021 10:45 AM AMBULATORY - NONE [facility] Jul 29, 2021 11:30 AM AMBULATORY - NONE [facility] Jul 29, 2021 01:00 PM AMBULATORY - NONE [facility] Jul 29, 2021 02:00 PM AMBULATORY - MEDICINE [facility] Aug 02, 2021 11:30 AM AMBULATORY - NONE [facility] Aug 04, 2021 01:30 PM AMBULATORY - NONE [facility] Aug 11, 2021 12:30 PM AMBULATORY - NONE [facility] Aug 18, 2021 08:00 AM AMBULATORY - NONE [facility] Aug 19, 2021 10:30 AM AMBULATORY - NONE [facility] Aug 23, 2021 12:00 PM AMBULATORY - NONE [facility] Aug 23, 2021 01:00 PM AMBULATORY - NONE [facility] Aug 28, 2021 12:59 PM AMBULATORY - MEDICINE [facility] Sep 04, 2021 07:33 PM AMBULATORY - MEDICINE [facility] Sep 06, 2021 01:30 PM AMBULATORY - NONE [facility] Sep 21, 2021 02:30 PM AMBULATORY - SURGERY [facility] Sep 22, 2021 01:00 PM AMBULATORY - NONE [facility] Sep 28, 2021 07:00 AM AMBULATORY - NONE [facility] Lab Results: +/- 30 days of the encounter This section includes the Chemistry and Hematology Lab Results on record with [place] for the patient. Radiology Reports and Pathology Reports are provided separately, in subsequent sections.Lab Results This section contains the Chemistry/Hematology Results that were resulted 30 days before or 30 daysafter the date of the Encounter. Date/Time Source Result Type Result - Unit Interpretation Reference Range Comment Jul 29, 2021 [facility] DRUG SCREEN PANEL,URINE Spec imen Type: URINE 01:18 PM Comment: Presum ptive Positive by screen, results not confirmed. Ordering Provid er: GISELLE MARTINEZ Report Released Date/Time: Jul 29, 2021 01:06 PM Reporting Lab: [facility] [address] [facility] [address] Performing Lab: [facility] [address] [facility] [address] BARBITURATES Negative Negative AMPHETAMINES Negative Negative COCAINE Negative Negative BENZODIAZEPINES Negative Negative CANNABINOIDS Negative Negative METHADONE Negative Negative OPIATES Negative Negative PHENCYCLIDINE Negative Negative ETHANOL,URINE Negative Negative DRUG SCREEN CREAT 64.7 >20.0 OXYCODONE POSITIVE H Negative BUPRENORPHINE Negative Negative TRAMADOL Negative Negative FENTANYL Negative Negative Jul 29, 2021 12:[address] [facility] HEMOGLOBIN A1C Specim en Type: BLOOD No comment enter ed. Ordering Provid er: GISELLE MARTINEZ Report Released Date/Time: Feb 28, 2021 06:22 PM Reporting Lab: [facility] [address] [facility] [address] Performing Lab: [facility] [address] [facility] [address] HEMOGLOBIN A1C 7.0 H 4.0-6.0 Jul 29, 2021 12:[address] [facility] AST/SGOT Specim en Type: PLASMA No comment enter ed. Ordering Provid er: GISELLE MARTINEZ Report Released Date/Time: Feb 28, 2021 06:22 PM Reporting Lab: [facility] [address] [facility] [address] Performing Lab: [facility] [address] [facility] [address] AST/SGOT 13 <34 Jul 29, 2021 12:[address] [facility] ALT/SGPT Specim en Type: PLASMA No comment enter ed. Ordering Provid er: GISELLE MARTINEZ Report Released Date/Time: Feb 28, 2021 06:22 PM Reporting Lab: [facility] [address] [facility] [address] Performing Lab: [facility] [address] [facility] [address] ALT/SGPT 15 <55 Jul 29, 2021 12:30 [facility] BASIC METABOLIC Specimen Type: PLASMA PM PANEL+MG No comment enter ed. Ordering Provid er: GISELLE MARTINEZ Report Released Date/Time: Feb 28, 2021 06:22 PM Reporting Lab: [facility] [address] [facility] [address] Performing Lab: [facility] [address] [facility] [address] CREATININE 0.7 0.7-1.2 UREA NITROGEN 12 8-26 GLUCOSE 170 H 74-100 SODIUM 141 136-145 POTASSIUM 3.9 3.5-5.1 CHLORIDE 105 98-107 CO2 28 22-29 CALCIUM 9.1 8.4-10.2 MAGNESIUM 2.3 1.6-2.6 ANION GAP 8 5-15 CREAT EGFR(CKD-EPI) >90 >60 Jul 29, 2021 12:[address] [facility] CBC Specim en Type: BLOOD No comment enter ed. Ordering Provid er: GISELLE MARTINEZ Report Released Date/Time: Feb 28, 2021 06:22 PM Reporting Lab: [facility] [address] [facility] [address] Performing Lab: [facility] [address] [facility] [address] [facility] [address] WBC 6.29 4.0-11.0 RBC 4.82 4.6-6.2 HGB 13.3 L 13.5-17.9 HCT 42.4 41-54 MCV 88.0 80-100 MCH 27.6 27-33 MCHC 31.4 L 32.0-37.5 PLT 286 150-400 MPV 9.5 7.4-10.4 RDW 16.8 H 11.5-14.5 Social History: Smoking Status (Most current) and Tobacco Use (All prior to encounter date) This section includes the most current, and the historical, smoking and tobacco-related health factors from the [place] facility where the Encounter took place.Current Smoking Status This section includes the most current smoking, or tobacco-related health factor, from the [place] facility where the Encounter took place. Date/Time Current Smoking Status Comment Facility Apr 25, 2021 11:00 AM [place]-TOBACCO NEVER USED [place] [facility] Tobacco Use History This section includes a history of the smoking, or tobacco- related health factors, that were collected on or before the date of the Encounter. The data comes from the [place] facility where the Encounter took place. Date/Time Smoking Status/Tobacco Use Comment [facility] July 09, 2020 02:00 PM VA-TOBACCO FORMER USER [facility] [place] [facility] July 09, 2020 02:00 PM VA-TOBACCO QUIT [address] [facility] Apr 17, 2019 02:39 PM INPT NO TOBACCO USE IN LAST [address] [facility] Feb 04, 2019 10:37 AM [place]-TOBACCO NEVER USED [place] [facility] Oct 15, 2018 02:43 PM INPT NO TOBACCO USE IN LAST [address] [facility] Oct 13, 2018 11:30 PM INPT NO TOBACCO USE IN LAST [address] [facility] Sep 02, 2018 05:50 PM INPT NO TOBACCO USE IN LAST [address] [facility] Aug 12, 2018 07:28 PM INPT NO TOBACCO USE IN LAST [address] [facility] Jan 30, 2018 03:28 PM [facility] Jan 30, 2018 03:28 PM VA-TOBACCO QUIT [address] [facility] May 29, 2017 04:53 PM INPT NO TOBACCO USE IN LAST [address] [facility] Apr 25, 2017 10:44 PM INPT NO TOBACCO USE IN LAST [address] [facility] Jan 01, 2017 06:40 PM INPT NO TOBACCO USE IN LAST [address] [facility] Dec 21, 2016 02:43 PM FORMER TOBACCO USER 7Y OR GREATER [facility] Sep 24, 2013 08:52 AM FORMER TOBACCO USER 7Y OR GRE[address] [facility] Advance Directives: All historical and current Section Date Range: From patient's date of to the date document was created. This section includes ALL of a patient's completed or amended [place] Advance and Rescinded Directives. The entries below indicate that a directive exists for the patient, but an actual copy is not included with this document. The data comes from all [place] facilities. Date Advance Directives Provider Source May 29, 2017 CLINICAL WARNING CORNELIO FREITAS [facility] May 16, 2017 ADVANCE DIRECTIVE SERENITY BUENROSTRO [facility] May 16, 2017 ADVANCE DIRECTIVE DISCUSSION SERENITY BUENROSTRO [place] [facility] May 04, 2017 CLINICAL WARNING MAGO DIAMOND [facility] May 04, 2017 [address] GAEL [address]ARIO [facility] Apr 26, 2017 CLINICAL WARNING JENNIFER DE LEON [facility] Jan 01, 2017 CLINICAL WARN[address] AYDE WELLS [facility] Jun 09, 2004 ADVANCE DIRECTIVE DARYL VILLARREAL [facility] Jun 07, 2004 ADVANCE DIRECTIVE SHERYL HOLLOWAY [facility] Encounter Notes: All associated encounter notes This section contains the clinical notes associated to the Encounter. Date/Time Encounter Note(s) Provider Source July 11, 2021 01:01 PM [facility] TITLE: PATIENT CONTACT NOTE - PHARMACY STANDARD TITLE: REPORT OF CONTACT DATE OF NOTE: JULY 11, 2021@13:01 ENTRY DATE: JULY 11, 2021@13:01:11 AUTHOR: DENIS BOSCH EXP COSIGNER: URGENCY: STATUS: COMPLETED PATIENT CONTACT NOTE - PHARMACY Has ADDENDA Patient Contact Date & Time of Contact: June@13:01 Type of Contact: Action: is requesting refill at this time of the DRESS MEPILEX BORDER FLEX 4X4IN #028007, DRESSINGCOLLAGEN ECM 4IN X 5IN H#004448 , GAUZE PAD 4IN X 4IN 8-PLY NONSTERILE, IBUPROFEN 800MG TAB, LIDOCAINE 4% TO P CREAM, LIDOCAINE 5% PATCH, TAPE,MEDIPORE H SOFT 4IN X 10YD 3M#2864 and the VANICREAM TOP CREAM. Thank you /vinicio/ DENIS BOSCH [facility] CALL CENTER LUMBER HANDLER Signed: 07/11/2021 13:05 Receipt Acknowledged By: 07/12/2021 08:36 /es/ SAVAGE ISAAC DPM QUALITY ASSURANCE LEAD 07/11/2021 16:47 /es/ Giselle Martinez MD Staff Physician 07/11/2021 ADDENDUM STATUS: COMPLETED supplies order /vinicio/ Giselle Martinez MD Staff Physician Signed: 07/11/2021 16:48 07/13/2021 ADDENDUM STATUS: COMPLETED supplies ordered except for aquacel(collagen samanta ssing). rejected by PA and was d/c'ed by wound care pt will need to have his pod iatrist /local wound team fax order through managed care if need special dressing /vinicio/ Giselle Martinez MD Staff Physician Signed: 07/13/2021 16:57 Receipt Acknowledged By: 07/15/2021 11:19 /vinicio/ Myrna Schofield RNC channel sales director 07/15/2021 ADDENDUM STATUS: COMPLETED spoke with nurse at [facility] [address] [place] PH:[phone] was just seen there this week. the colla gen dressing he requested is not part of his treatment plan. the staff at the [facility] will reach out to both and home care a [facility] to clarify how the dressing is to be done and what supplies are needed. as of not, he is to be using the iodosorb which is ordered and was mailed 07/12. also gave nurse the fax number. as this is a [facility] consult, dressing change supplies/rx should be faxed directly to [facility] pha rmacists at [phone]. the [facility] pharmacists will work with communit y providers if there are any formulary or PA issues to sort out. FYI to PCP. /vinicio/ Mryna Schofield RNC channel sales director Signed: 07/15/2021 11:23 Receipt Acknowledged By: * AWAITING SIGNATURE * GISELLE MARTINEZ
--- OUTSIDE RECORDS SUMMARY | 2021-12-23 18:36 | XMS_ITS | Encounter Summary ---
:1945 Author Organization [facility] Address [address] [place] [id number] Support Name Relationship Address Phone FRANCES GANDARA Unavailable [address] [place] [address] FRANCES GANDAAR Unavailable [address] [place] [address] FRANCES GANDARA Unavailable [address] [place] [address] FRANCES GANDARA Unavailable [address] [place] [address] Insurance Providers: All historical and current Section [...] MEDICARE MEDICARE PART Apr 19, PART A [id number] Whit MOJICA (WNR) (M) A 2007 50A [phone] JESSICA MEDICARE MEDICARE PART Apr 19, PART A [id number] 800 Whit [place] (WNR) (M) A 2007 [id number] [phone] JESSICA Selected Encounter This section includes the information on record at [place] for the Encounter. Date/Time Encounter Type Encounter Reason Provider Source Description July 11, 2021 01:52 Outpatient TELEPHONE/ANCILLARY MIS ARNOLD PM Encounter [facility] Encounter Template Text not used by [place] Plan of Treatment: Future Appointments (+ 6 [...] 20 appointments. The data comes from all [place] treatment facilities. Appointment Date/Time Appointment Type Appointment Facili ty Name July 13, 2021 09:00 AM [facility] July 14, 2021 02:10 PM AMBULATORY - NONE [facility] Jul 21, 2021 09:45 AM AMBULATORY - NONE [facility] Jul 26, 2021 10:45 AM AMBULATORY - NONE [facility] Jul 29, 2021 11:30 AM AMBULATORY - NONE [facility] Jul 29, 2021 01:00 PM AMBULATORY - NONE [facility] Jul 29, 2021 02:00 PM AMBULATORY - MEDICINE [facility] Aug 02, 2021 11:30 AM AMBULATORY - NONE [facility] Aug 04, 2021 01:30 PM AMBULATORY - NONE [facility] Aug 11, 2021 12:30 PM AMBULATORY - NONE [facility] Aug 18, 2021 08:00 AM AMBULATORY - NONE [facility] Aug 19, 2021 10:30 AM AMBULATORY - NONE [facility] Aug 23, 2021 12:00 PM AMBULATORY - NONE [facility] Aug 23, 2021 01:00 PM AMBULATORY - NONE [facility] Aug 28, 2021 12:59 PM AMBULATORY - MEDICINE [facility] Sep 04, 2021 07:33 PM AMBULATORY - MEDICINE [facility] Sep 06, 2021 01:30 PM AMBULATORY - NONE [facility] Sep 21, 2021 02:30 PM AMBULATORY - SURGERY [facility] Sep 22, 2021 01:00 PM AMBULATORY - NONE [facility] Sep 28, 2021 07:00 AM AMBULATORY - NONE [facility] Lab Results: +/- 30 days of the encounter This section includes the Chemistry and Hematology Lab Results on record with [place] for the patient. Radiology Reports and Pathology Reports are provided separately, in subsequent sections.Lab Results This section contains the Chemistry/Hematology Results that were resulted 30 days before or 30 daysafter the date of the Encounter. Date/Time Source Result Type Result - Unit Interpretation Reference Range Comment Jul 29, 2021 [facility] DRUG SCREEN PANEL,URINE Spec imen Type: URINE 01:18 PM Comment: Presum ptive Positive by screen, results not confirmed. Ordering Provid er: CARIDAD DENNIS Report Released Date/Time: Jul 29, 2021 01:06 PM Reporting Lab: [facility] [address] [facility] [address] Performing Lab: [facility] [address] [facility] [address] BARBITURATES Negative Negative AMPHETAMINES Negative Negative COCAINE Negative Negative BENZODIAZEPINES Negative Negative CANNABINOIDS Negative Negative METHADONE Negative Negative OPIATES Negative Negative PHENCYCLIDINE Negative Negative ETHANOL,URINE Negative Negative DRUG SCREEN CREAT 64.7 >20.0 OXYCODONE POSITIVE H Negative BUPRENORPHINE Negative Negative TRAMADOL Negative Negative FENTANYL Negative Negative Jul 29, 2021 12:30 PM [facility] HEMOGLOBIN A1C Specim en Type: BLOOD No comment enter ed. Ordering Provid er: CARIDAD DENNIS Report Released Date/Time: Feb 28, 2021 06:22 PM Reporting Lab: [facility] [address] [facility] [address] Performing Lab: [facility] [address] [facility] [address] HEMOGLOBIN A1C 7.0 H 4.0-6.0 Jul 29, 2021 12:30 PM [facility] AST/SGOT Specim en Type: PLASMA No comment enter ed. Ordering Provid er: CARIDAD DENNIS Report Released Date/Time: Feb 28, 2021 06:22 PM Reporting Lab: [facility] [address] [facility] [address] Performing Lab: [facility] [address] [facility] [address] AST/SGOT 13 <34 Jul 29, 2021 12:30 PM [facility] ALT/SGPT Specim en Type: PLASMA No comment enter ed. Ordering Provid er: CARIDAD DENNIS Report Released Date/Time: Feb 28, 2021 06:22 PM Reporting Lab: [facility] [address] [facility] [address] Performing Lab: [facility] [address] [facility] [address] ALT/SGPT 15 <55 Jul 29, 2021 12:30 PM [facility] CBC Specim en Type: BLOOD No comment enter ed. Ordering Provid er: CARIDAD DENNIS Report Released Date/Time: Feb 28, 2021 06:22 PM Reporting Lab: [facility] [address] [facility] [address] Performing Lab: [facility] [address] [facility] [address] WBC 6.29 4.0-11.0 RBC 4.82 4.6-6.2 HGB 13.3 L 13.5-17.9 HCT 42.4 41-54 MCV 88.0 80-100 MCH 27.6 27-33 MCHC 31.4 L 32.0-37.5 PLT 286 150-400 MPV 9.5 7.4-10.4 RDW 16.8 H 11.5-14.5 Jul 29, 2021 12:30 [facility] BASIC METABOLIC Specimen Type: PLASMA PM PANEL+MG No comment enter ed. Ordering Provid er: CARIDAD DENNIS Report Released Date/Time: Feb 28, 2021 06:22 PM Reporting Lab: [facility] [address] [facility] [address] Performing Lab: [facility] [address] CREATININE 0.7 0.7-1.2 UREA NITROGEN 12 8-26 [...] smoking, or tobacco-related health factor, from the [place] facility where the Encounter took place. Date/Time Current Smoking Status Comment Facility Apr 25, 2021 11:00 AM [place]-TOBACCO NEVER USED [facility] Tobacco Use History This section includes a history of the smoking, or tobacco- related health factors, that were collected on or before the date of the Encounter. The data comes from the [place] facility where the Encounter took place. Date/Time Smoking Status/Tobacco Use Comment [facility] July 09, 2020 02:00 PM [place]-TOBACCO FORMER USER WILLY BUTLER [facility] July 09, 2020 02:00 PM [place]-TOBACCO QUIT 15 YRS OR MORE [facility] Apr 17, 2019 02:39 PM INPT NO TOBACCO USE IN LAST 30 DAYS [facility] Feb 04, 2019 10:37 AM [place]-TOBACCO NEVER USED [facility] Oct 15, 2018 02:43 PM INPT NO TOBACCO USE IN LAST 30 DAYS [facility] Oct 13, 2018 11:30 PM INPT NO TOBACCO USE IN LAST 30 DAYS [facility] Sep 02, 2018 05:50 PM INPT NO TOBACCO USE IN LAST 30 DAYS [facility] Aug 12, 2018 07:28 PM INPT NO TOBACCO USE IN LAST 30 DAYS [facility] Jan 30, 2018 03:28 PM [facility]-TOBACCO [facility] Jan 30, 2018 03:28 PM VA-TOBACCO QUIT 15 YRS OR MORE [facility] May 29, 2017 04:53 PM INPT NO TOBACCO USE IN LAST 30 DAYS [facility] Apr 25, 2017 10:44 PM INPT NO TOBACCO USE IN LAST 30 DAYS [facility] Jan 01, 2017 06:40 PM INPT NO TOBACCO USE IN LAST 30 DAYS [facility] Dec 21, 2016 02:43 PM FORMER TOBACCO USER 7Y OR GREATER [facility] Sep 24, 2013 08:52 AM FORMER TOBACCO USER 7Y OR GREATER [facility] Advance Directives: All historical and current Section Date Range: From patient's date of to the date document was created. This section includes ALL of a patient's completed or amended [place] Advance and Rescinded Directives. The entries below indicate that a directive exists for the patient, but an actual copy is not included with this document. The data comes from all [place] facilities. Date Advance Directives Provider Source May 29, 2017 CLINICAL WARNING CORNELIO FREITAS [facility] May 16, 2017 ADVANCE DIRECTIVE SERENITY BUENROSTRO [facility] May 16, 2017 ADVANCE DIRECTIVE DISCUSSION SERENITY BUENROSTRO [place] [facility] May 04, 2017 CLINICAL WARNING MAGO DIAMOND [facility] May 04, 2017 CLINICAL WARNING GAEL ROSARIO [facility] Apr 26, 2017 CLINICAL WARNING JENNIFER DE LEON [facility] Jan 01, 2017 CLINICAL WARNING AYDE WELLS [facility] Jun 09, 2004 ADVANCE DIRECTIVE DARYL VILLARREAL [facility] Jun 07, 2004 ADVANCE DIRECTIVE SHERYL HOLLOWAY [facility] Encounter Notes: All associated encounter notes This section contains the clinical notes associated to the Encounter. Date/Time Encounter Note(s) Provider Source July 11, 2021 01:52 PM SATP MEDICATION MGT NOTE: MIS ARNOLD [facility] LOCAL TITLE: CHRONIC OPIOID MANAGEMENT PROGRAM STANDARD TITLE: SATP MEDICATION MGT NOTE DATE OF NOTE: JULY 11, 2021@13:52 ENTRY DATE: JULY 11, 2021@13:52:44 AUTHOR: MIS ARNOLD EXP COSIGNER: URGENCY: STATUS: COMPLETED [place] released [place] 07/08/21 Medication:OXYCODONE 5MG/ACETAMINOPHEN 325MG TAB Due to mail out on (date): now Date patient was last seen by Primary Opioid Pre scriber:04/25/21 Date of last Prescription Monitoring Program inq uiry: 12/16/20 MEDD (as prescribed): 45 (Morphine Equivalent Daily Dose) Date of iMED Consent: 02/28/19 Urine Drug Screen: not done within 1 year Order for naloxone is expir ed or not present; PCP to please consider ordering. /vinicio/ MIS ARNOLD LPN LICENSED PRACTICAL NURSE Signed: 07/11/2021 14:03 Receipt Acknowledged By: * AWAITING SIGNATURE * CARIDAD DENNIS
--- OUTSIDE RECORDS SUMMARY | 2021-12-23 18:37 | XMS_ITS | Encounter Summary ---
:1945 Author Organization [facility] Address [address] [place] [address] Support Name Relationship Address Phone FRANCES GANDARA Unavailable [address] [place] [address] FRANCES GANDARA Unavailable [address] [place] [address] FRANCES GANDARA Unavailable [address] [place] [address] FRANCES GANDARA Unavailable [address] [place] [address] Insurance Providers: All historical and current Section [...] MEDICARE MEDICARE PART Apr 19, PART A [id number] Whit MOJICA (WNR) (M) A 2007 50A [phone] JESSICA MEDICARE MEDICARE PART Apr 19, PART A [id number] Whit MOJICA (WNR) (M) A 2007 [id number] [phone] JESSICA Selected Encounter This section includes the information on record at [place] for the Encounter. Date/Time Encounter Type Encounter Reason Provider Source Description July 13, 2021 HC PRO PHONE TELEPHONE/REHAB ICD-10-CM Z91.14 HILL STRINGER 09:00 AM CALL 11-20 MIN AND SUPPORT Patient's other noncompliance with medication regimen with Provider Comments: Patient's other Noncompliance with Medication Regimen IHE Encounter Template Text not used by [place] Assessments - Encounter Diagnoses This section includes the primary and secondary diagnoses documented for the Encounter. Date/Time Primary/Secondary Diagnosis Name Provider Source Diagnosis July 13, 2021 PRIMARY Patient's HILL De Anda [facility] 09:00 AM noncompliance with [facility] medication regimen Plan of Treatment: Future Appointments (+ 6 months) and Future Tests (+/- 45 days) The Plan of Treatment section includes future care activities for the patient [facility] [place] [facility]. This section includes future appointments and future orders which are active, pending orscheduled.Future Appointments This section includes appointments that were scheduled to occur 6 months from the date of the Encounter, up to a maximum of 20 appointments. The data comes from all [place] treatment facilities. Appointment Date/Time Appointment Type Appointment Facili ty Name July 14, 2021 02:10 PM AMBULATORY - NONE [facility] Jul 21, 2021 09:45 AM AMBULATORY - NONE [facility] Jul 26, 2021 10:45 AM AMBULATORY - NONE [facility] Jul 29, 2021 11:30 AM AMBULATORY - NONE [facility] Jul 29, 2021 01:00 PM AMBULATORY - NONE [facility] Jul 29, 2021 02:00 PM AMBULATORY - MEDICINE [facility] Aug 02, 2021 11:30 AM AMBULATORY - NONE [facility] Aug 04, 2021 01:30 PM AMBULATORY - NONE [facility] Aug 11, 2021 12:30 PM AMBULATORY - NONE [facility] Aug 18, 2021 08:00 AM AMBULATORY - NONE [facility] Aug 19, 2021 10:30 AM AMBULATORY - NONE [facility] Aug 23, 2021 12:00 PM AMBULATORY - NONE [facility] Aug 23, 2021 01:00 PM AMBULATORY - NONE [facility] Aug 28, 2021 12:59 PM AMBULATORY - MEDICINE [facility] Sep 04, 2021 07:33 PM AMBULATORY - MEDICINE [facility] Sep 06, 2021 01:30 PM AMBULATORY - NONE [facility] Sep 21, 2021 02:30 PM AMBULATORY - SURGERY [facility] Sep 22, 2021 01:00 PM AMBULATORY - NONE [facility] Sep 28, 2021 07:00 AM AMBULATORY - NONE [facility] Sep 28, 2021 01:30 PM AMBULATORY - SURGERY [facility] Lab Results: +/- 30 days of the encounter This section includes the Chemistry and Hematology Lab Results on record with [place] for the patient. Radiology Reports and Pathology Reports are provided separately, in subsequent sections.Lab Results This section contains the Chemistry/Hematology Results that were resulted 30 days before or 30 daysafter the date of the Encounter. Date/Time Source Result Type Result - Unit Interpretation Reference Range Comment Jul 29, 2021 [facility] DRUG SCREEN PANEL,URINE Spec imen Type: URINE 01:18 PM Comment: Presum ptive Positive by screen, results not confirmed. Ordering Provid er: CARIDAD DENNIS Report Released Date/Time: Jul 29, 2021 01:06 PM Reporting Lab: [facility] [address] [facility] [address] Performing Lab: [facility] [address] [facility] [id number] BARBITURATES Negative Negative AMPHETAMINES Negative Negative COCAINE Negative Negative BENZODIAZEPINES Negative Negative CANNABINOIDS Negative Negative METHADONE Negative Negative OPIATES Negative Negative PHENCYCLIDINE Negative Negative ETHANOL,URINE Negative Negative DRUG SCREEN CREAT 64.7 >20.0 OXYCODONE POSITIVE H Negative BUPRENORPHINE Negative Negative TRAMADOL Negative Negative FENTANYL Negative Negative Jul 29, 2021 12:30 PM [facility] HEMOGLOBIN A1C Specim en Type: BLOOD No comment enter ed. Ordering Provid er: CARIDAD DENNIS Report Released Date/Time: Feb 28, 2021 06:22 PM Reporting Lab: [facility] [address] [facility] [address] Performing Lab: [facility] [address] [facility] [address] HEMOGLOBIN A1C 7.0 H 4.0-6.0 Jul 29, 2021 12:30 PM [facility] AST/SGOT Specim en Type: PLASMA No comment enter ed. Ordering Provid er: CARIDAD DENNIS Report Released Date/Time: Feb 28, 2021 06:22 PM Reporting Lab: [facility] [address] [facility] [address] Performing Lab: [facility] [address] [facility] [address] AST/SGOT 13 <34 Jul 29, 2021 12:30 PM [facility] ALT/SGPT Specim en Type: PLASMA No comment enter ed. Ordering Provid er: CARIDAD DENNIS Report Released Date/Time: Feb 28, 2021 06:22 PM Reporting Lab: [facility] [address] [facility] [address] Performing Lab: [facility] [address] [facility] [address] ALT/SGPT 15 <55 Jul 29, 2021 12:30 PM [facility] CBC Specim en Type: BLOOD No comment enter ed. Ordering Provid er: CARIDAD DENNIS Report Released Date/Time: Feb 28, 2021 06:22 PM Reporting Lab: [facility] [address] [facility] [address] Performing Lab: [facility] [address] [facility] [address] WBC 6.29 4.0-11.0 RBC 4.82 4.6-6.2 HGB 13.3 L 13.5-17.9 HCT 42.4 41-54 MCV 88.0 80-100 MCH 27.6 27-33 MCHC 31.4 L 32.0-37.5 PLT 286 150-400 MPV 9.5 7.4-10.4 RDW 16.8 H 11.5-14.5 Jul 29, 2021 12:30 [facility] BASIC METABOLIC Specimen Type: PLASMA PM PANEL+MG No comment enter ed. Ordering Provid er: CARIDAD DENNIS Report Released Date/Time: Feb 28, 2021 06:22 PM Reporting Lab: [facility] [address] [facility] [address] Performing Lab: [facility] [address] [facility] [address] CREATININE 0.7 0.7-1.2 UREA NITROGEN 12 8-26 [...] Comment Facility Apr 25, 2021 11:00 AM [place]-TOBACCO NEVER USED [facility] Tobacco Use History This section includes a history of the smoking, or tobacco- related health factors, that were collected on or before the date of the Encounter. The data comes from the [place] facility where the Encounter took place. Date/Time Smoking Status/Tobacco Use Comment Facil ity July 09, 2020 02:00 PM [place] July 09, 2020 02:00 PM VA-TOBACCO QUIT 15 YRS OR MORE [facility] Apr 17, 2019 02:39 PM INPT NO TOBACCO USE IN LAST 30 DAYS [facility] Feb 04, 2019 10:37 AM [facility]-TOBACCO [facility] USED [facility] Oct 15, 2018 02:43 PM [...] May 29, 2017 CLINICAL WARNING [facility] May 16, 2017 ADVANCE DIRECTIVE SERENITY BUENROSTRO [facility] May 16, 2017 ADVANCE DIRECTIVE DISCUSSION [facility]STRO [facility] May 04, 2017 CLINICAL WARNING MAGO DIAMOND [facility] May 04, 2017 CLINICAL WARNING GAEL ROSARIO [facility] Apr 26, 2017 CLINICAL WARNING JENNIFER DE LEON [facility] Jan 01, 2017 CLINICAL WARNING AYDE WELLS [facility] Jun 09, 2004 ADVANCE DIRECTIVE DARYL VILLARREAL [facility] Jun 07, 2004 ADVANCE DIRECTIVE MADELIN HOLLOWAYAshley DUVALL [facility] Encounter Notes: All associated encounter notes This section contains the clinical notes associated to the Encounter. Date/Time Encounter Note(s) Provider Source July 13, 2021 08:59 AM OCCUPATIONAL THERAPY CONSULT: HILL STRINGER [facility] LOCAL TITLE: OCCUPATIONAL THERAPY CONSULT STANDARD TITLE: OCCUPATIONAL THERAPY CONSULT DATE OF NOTE: JULY 13, 2021@08:59 ENTRY DATE: JULY 13, 2021@08:59:36 AUTHOR: HILL STRINGER EXP COSIGNER: URGENCY: STATUS: COMPLETED OCCUPATIONAL THERAPY EVALUATION - PHONE Referring provider: CARIDAD DENNIS Diagnosis for which patient is referred to OT: Z91.14 Reason for request: Evaluate for equipment Consult request: OT OUTPT VIA PHONE Precautions: Falls Vet seen for OT eval on June for 15 mins ASSSESSMENT: The Vet is a 75 year old male who reports he was just d/c'ed from a local detention following ortho pedic surgery on his foot. He is home now and having transfer difficulties and in need of a replaceme nt medication box. He reports he previously used the transfer disc and slide b oard in the detention and during previous [place] hospitali zations. The Vet reports he is having in-home PT and OT started next week. Set plan that Vet would angela ve follow up for transfer devices as needed from in-home PT and OT. Vet is in agreement. Vet would benefit from the following equipment: -Transfer Disc ([employer] through [employer], Item # [id number] -SafetySure Transfer Belt ([employer], Item #[id number]) -Slide board -Med Ready 1700 Device ([email or web address]). PLAN: No further OT needs at this time, discharge fro m OT. [facility] GOALS TO BE MET BY June: [place] will maximize independence and safety w ith ADL/IADLs in home environment. (Goal met on June) PATIENT EDUCATION ON TREATMENT PLAN: Patient indicates readiness to learn, has been instructed on the treatment plan, but needs reinforcement. CURRENT MEDICAL HISTORY: Osteoarthritis ([facility] [id number]) Obstructive sleep apnea ([facility] [id number]) Gastroesophageal reflux disease ([facility] 235Restless legs syndrome ([facility] [id number]) Nephrolithiasis ([facility] [id number]) Depression ([facility] [phone] [id number]) Coronary artery disease ([facility] [id number]) Diabetes mellitus ([facility] [id number]) Headache ([facility] [id number]) Pulmonary thromboembolis m ([facility] [id number]) Essential tremor ([facility] [id number]) Hemoptysis ([facility] [id number]) Aortic valve stenosis ([facility] [id number]) Oculomotor nerve palsy ([facility] [id number]) Charcot's joint of foot ([facility] [id number]) Peripher al vascular disease ([facility] [id number]) Heart failure ([facility] [id number]) SUBJECTIVE: Patient identified concerns/problems: The medic ation box broke. I have fewer medications now so it should work better. Patient goal(s):Review equipment OBJECTIVE Vivek answered phone at scheduled time and constantine hutchison name/last 4. Vivek lives in a house. Stairs exist to basement. Ramped entry into home. Nurse comes in M/W/F. D/C'ed from detention las t week on 07/08/21 per medical record. I showed them I could do everything they needed me to do. MEDICATIONS: Vivek has had MedReady in the past. T he device since broke. He reports being on less medication now and anticip ates the device will be even more useful with fewer pills . He has a home care nurse for device and medication set up. MOBILITY: Primarily uses a w/c right now . Familiar with slide board from prior [place] hospitalization. Vivek has a regular be d so may be going uphill slightly from w/c to bed and anticipates the transfer bed to w heelchair will be easier. Current status is NWB at present. Will be re-vanessa luated this coming Sunday. Additionally, Vivek used a piv ot disc in the detention per patient. Used for 2 weeks and states it was inde pendent use. He used this without a walker as he is able to stand and reports to have good strength on his one leg. Vivek has a standard bed (i.e. not a hospital bed). FOLLOW UP: Discussed that this consult is limite d by the nature of a phone interaction. Discussed plan for follow up. Vivek w ill have in-home PT and OT starting this week or next week. He plans to fol low up with them on transfers and can trouble shoot equipment with them. Vivek r eports he feels completely comfortable with the transfer disc and t he slide board from his recent detention stay and prior hospitalizations. Discussed ordering a transfer belt for added safety or days he is feeling off. Vivek is in agreement. OCCUPATIONAL THERAPY EVALUATION COMPLEXITY Identifying and reporting the complexity level o f an evaluation focuses on the first three of these factors--profile and hi story, assessment and determination of deficits, and clinical decision making. These three factors [...] (physical, cognitive, or psych osocial skills). Physical: mobility limitations Cognition: ALARCON: 1-3 performance deficits = Low Complexity LEVEL OF CLINICAL DECISION MAKING Comorbidities affect occupational performance: Yes (moderate or high [...] move t o a higher level of evaluation, all three components must be of the higher level. LOW COMPLEXITY Brief history of medical/or therapy records relating to the presenting problem. An assessment(s) that identifies 1-3 performance deficits that result in activity limitation and/or participating restric tions. Includes analysis of the occupational profile, a nalysis of date from problem- focused assessment(s), and consideration of a li mited number of treatment options. Patient presents with no c omorbidities that affect occupational performance. Modification of tasks or assistance with assessm ent(s) is not necessary to enable completion of evaluation component. /vinicio/ HILL STRINGER,PHD,OTR/L RESEARCH OCCUPATIONAL THERAPIST Signed: 07/13/2021 09:25
--- OUTSIDE RECORDS SUMMARY | 2021-12-23 18:38 | XMS_ITS | Encounter Summary ---
:1945 Author Organization [facility] Address [address] [place] [id number] Support Name Relationship Address Phone FRANCES GANDARA Unavailable [address] [place] [address] FRANCES GANDARA Unavailable [address] [place] [address] FRANCES GANDARA Unavailable [address] [place] [address] FRANCES GANDARA Unavailable [address] [place] [address] Insurance Providers: All historical and current Section [...] MEDICARE MEDICARE PART Apr 19, PART A [id number] Whit MOJICA (WNR) (M) A 2007 50A [phone] JESSICA MEDICARE MEDICARE PART Apr 19, PART A [id number] 800 Whit [place] (WNR) (M) A 2007 [id number] [phone] JESSICA Selected Encounter This section includes the information on record at OR for the Encounter. Date/Time Encounter Type Encounter Description Reason Provider Source July 15, 2021 01:33 Outpatient Encounter TELEPHONE TRIAGE PM IHE Encounter Template Text not used by OR Plan of Treatment: Future Appointments (+ 6 [...] 20 appointments. The data comes from all OR treatment facilities. Appointment Date/Time Appointment Type Appointment Facili ty Name Jul 21, 2021 09:45 AM AMBULATORY - NONE [facility] Jul 26, 2021 10:45 AM AMBULATORY - NONE [facility] Jul 29, 2021 11:30 AM AMBULATORY - NONE [facility] Jul 29, 2021 01:00 PM AMBULATORY - NONE [facility] Jul 29, 2021 02:00 PM AMBULATORY - MEDICINE [facility] Aug 02, 2021 11:30 AM AMBULATORY - NONE [facility] Aug 04, 2021 01:30 PM AMBULATORY - NONE [facility] Aug 11, 2021 12:30 PM AMBULATORY - NONE [facility] Aug 18, 2021 08:00 AM AMBULATORY - NONE [facility] Aug 19, 2021 10:30 AM AMBULATORY - NONE [facility] Aug 23, 2021 12:00 PM AMBULATORY - NONE [facility] Aug 23, 2021 01:00 PM AMBULATORY - NONE [facility] Aug 28, 2021 12:59 PM AMBULATORY - MEDICINE [facility] Sep 04, 2021 07:33 PM AMBULATORY - MEDICINE [facility] Sep 06, 2021 01:30 PM AMBULATORY - NONE [facility] Sep 21, 2021 02:30 PM AMBULATORY - SURGERY [facility] Sep 22, 2021 01:00 PM AMBULATORY - NONE [facility] Sep 28, 2021 07:00 AM AMBULATORY - NONE [facility] Sep 28, 2021 01:30 PM AMBULATORY - SURGERY [facility] Oct 11, 2021 02:30 PM AMBULATORY - MEDICINE [facility] Lab Results: +/- 30 days of the encounter This section includes the Chemistry and Hematology Lab Results on record with OR for the patient. Radiology Reports and Pathology Reports are provided separately, in subsequent sections.Lab Results This section contains the Chemistry/Hematology Results that were resulted 30 days before or 30 daysafter the date of the Encounter. Date/Time Source Result Type Result - Unit Interpretation Reference Range Comment Jul 29, 2021 [facility] DRUG SCREEN PANEL,URINE Spec imen Type: URINE 01:18 PM Comment: Presum ptive Positive by screen, results not confirmed. Ordering Provid er: GISELLE MARTINEZ Report Released Date/Time: Jul 29, 2021 01:06 PM Reporting Lab: [facility] [address] [facility] [address] Performing Lab: [facility] [address] [facility] [address] BARBITURATES Negative Negative AMPHETAMINES Negative Negative COCAINE Negative Negative BENZODIAZEPINES Negative Negative CANNABINOIDS Negative Negative METHADONE Negative Negative OPIATES Negative Negative PHENCYCLIDINE Negative Negative ETHANOL,URINE Negative Negative DRUG SCREEN CREAT 64.7 >20.0 OXYCODONE POSITIVE H Negative BUPRENORPHINE Negative Negative TRAMADOL Negative Negative FENTANYL Negative Negative Jul 29, 2021 12:30 PM [facility] HEMOGLOBIN A1C Specim en Type: BLOOD No comment enter ed. Ordering Provid er: GISELLE MARTINEZ Report Released Date/Time: Feb 28, 2021 06:22 PM Reporting Lab: [facility] [address] [facility] [address] Performing Lab: [facility] [address] [facility] [address] HEMOGLOBIN A1C 7.0 H 4.0-6.0 Jul 29, 2021 12:30 PM [facility] AST/SGOT Specim en Type: PLASMA No comment enter ed. Ordering Provid er: GISELLE MARTINEZ Report Released Date/Time: Feb 28, 2021 06:22 PM Reporting Lab: [facility] [address] [facility] [address] Performing Lab: [facility] [address] [facility] [address] AST/SGOT 13 <34 Jul 29, 2021 12:30 PM [facility] ALT/SGPT Specim en Type: PLASMA No comment enter ed. Ordering Provid er: GISELLE MARTINEZ Report Released Date/Time: Feb 28, 2021 06:22 PM Reporting Lab: [facility] [address] [facility] [address] Performing Lab: [facility] [address] [facility] [address] ALT/SGPT 15 <55 Jul 29, 2021 12:30 [facility] BASIC METABOLIC Specimen Type: PLASMA PM PANEL+MG No comment enter ed. Ordering Provid er: GISELLE MARTINEZ Report Released Date/Time: Feb 28, 2021 06:22 PM Reporting Lab: [facility] [address] [facility] [address] Performing Lab: [facility] [address] [facility] [address] CREATININE 0.7 0.7-1.2 UREA NITROGEN 12 8-26 GLUCOSE 170 H 74-100 SODIUM 141 136-145 POTASSIUM 3.9 3.5-5.1 CHLORIDE 105 98-107 CO2 28 22-29 CALCIUM 9.1 8.4-10.2 MAGNESIUM 2.3 1.6-2.6 ANION GAP 8 5-15 CREAT EGFR(CKD-EPI) >90 >60 Jul 29, 2021 12:30 PM [facility] CBC Specim en Type: BLOOD No comment enter ed. Ordering Provid er: GISELLE MARTINEZ Report Released Date/Time: Feb 28, 2021 06:22 PM Reporting Lab: [facility] [address] [facility] [address] Performing Lab: [facility] [address] [facility] [address] WBC 6.29 4.0-11.0 RBC 4.82 4.6-6.2 HGB 13.3 L 13.5-17.9 HCT 42.4 41-54 MCV 88.0 80-100 MCH 27.6 27-33 MCHC 31.4 L 32.0-37.5 PLT 286 150-400 MPV 9.5 7.4-10.4 RDW 16.8 H 11.5-14.5 Social History: Smoking Status (Most current) and Tobacco Use (All prior to encounter date) This section includes the most current, and the historical, smoking and tobacco-related health factors from the OR facility where the Encounter took place.Current Smoking Status This section includes the most current smoking, or tobacco-related health factor, from the OR facility where the Encounter took place. Date/Time Current Smoking Status Comment Facility Apr 25, 2021 11:00 AM OR-TOBACCO NEVER USED [facility] Tobacco Use History This section includes a history of the smoking, or tobacco- related health factors, that were collected on or before the date of the Encounter. The data comes from the OR facility where the Encounter took place. Date/Time Smoking Status/Tobacco Use Comment [facility] July 09, 2020 02:00 PM VA-TOBACCO FORMER USER [facility] July 09, 2020 02:00 PM VA-TOBACCO QUIT 15 YRS OR MORE [facility] Apr 17, 2019 02:39 PM INPT NO TOBACCO USE IN LAST 30 DAYS [facility] Feb 04, 2019 10:37 AM OR-TOBACCO NEVER USED [facility] Oct 15, 2018 02:43 [...] 2018 03:28 PM [facility]BACCO [facility] USER [facility] Jan 30, 2018 03:28 [...] ALL of a patient's completed or amended OR Advance and Rescinded Directives. The entries below indicate that a directive exists for the patient, but an actual copy is not included with this document. The data comes from all OR facilities. Date Advance Directives Provider Source May 29, 2017 CLINICAL WARNING CORNELIO FREITAS [facility] May 16, 2017 ADVANCE DIRECTIVE SERENITY BUENROSTRO [facility] May 16, 2017 ADVANCE DIRECTIVE DISCUSSION [facility] May 04, 2017 CLINICAL WARNING MAGO DIAMOND [facility] May 04, 2017 CLINICAL WARNING GAEL ROSARIO [facility] Apr 26, 2017 CLINICAL WARNING JENNIFER DE LEON [facility] Jan 01, 2017 CLINICAL WARNING AYDE WELLS [facility] Jun 09, 2004 ADVANCE DIRECTIVE DARYL VILLARREAL [facility] Jun 07, 2004 ADVANCE DIRECTIVE SHERYL HOLLOWAY [facility] Encounter Notes: All associated encounter notes This section contains the clinical notes associated to the Encounter. Date/Time Encounter Note(s) Provider Source July 15, 2021 01:33 PM REPORT OF CONTACT: LARISSA LOVE [facility] LOCAL TITLE: PATIENT CONTACT NOTE - PHARMACY STANDARD TITLE: REPORT OF CONTACT DATE OF NOTE: JULY 15, 2021@13:33 ENTRY DATE: JULY 15, 2021@13:33:13 AUTHOR: LARISSA LOVE EXP COSIGNER: URGENCY: STATUS: COMPLETED PATIENT CONTACT NOTE - PHARMACY Has ADDENDA Patient Contact Date & Time of Contact: June@13:33 Type of Contact: Reason for Contact: Renewal of medication(s) Medications requested: 66 total meds Next scheduled/recall appointment date: Chart reviewed: Comments: The was staying in a [facility] after surgery. 66 of his prescriptions were discontinued. He is not longe r at the [place] and needs all of his discontinued orders renewed. Please contact the patient about this. /darya LOVE [facility] V23 SINGLE NEEDLE TUFTING 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 [facility] Signed: 07/15/2021 13:35 Receipt Acknowledged By: * AWAITING SIGNATURE * SANYA CASE 07/15/2021 16:59 /vinicio/ Giselle Martinez MD Staff Physician 07/15/2021 ADDENDUM STATUS: COMPLETED we need a list of medications that need to be refilled in order to refill them please contact the patient to obtain that list a nd flag me on those requests thanks /vinicio/ Giselle Martinez MD Staff Physician Signed: 07/15/2021 17:01 Receipt Acknowledged By: * AWAITING SIGNATURE * LARISSA LOVE 07/19/2021 11:50 /FABY Daugherty application development director 07/19/2021 ADDENDUM STATUS: COMPLETED call to byron alexander . call to three link s to obtain d/c summary which will be faxed to clinic. /FABY Daugherty application development director Signed: 07/19/2021 11:58
--- OUTSIDE RECORDS SUMMARY | 2021-12-23 18:40 | XMS_ITS | Encounter Summary ---
:1945 Author Organization [facility] Address [address] [place] [address] Support Name Relationship Address Phone FRANCES GANDARA Unavailable [address] [place] [address] FRANCES GANDARA Unavailable [address] [place] [address] FRANCES GANDARA Unavailable [address] [place] [address] FRANCES GANDARA Unavailable [address] [place] [address] Insurance Providers: All historical and current Section [...] MEDICARE MEDICARE PART Apr 19, PART A [id number] Whit MOJICA (WNR) (M) A 2007 50A [phone] JESSICA MEDICARE MEDICARE PART Apr 19, PART A [id number] 800 Whit MOJICA (WNR) (M) A 2007 [id number] [phone] JESSICA Selected Encounter This section includes the information on record at OR for the Encounter. Date/Time Encounter Type Encounter Description Reason Provider Source Jul 25, 2021 04:26 Outpatient Encounter TELEPHONE TRIAGE PM IHE Encounter [...] Appointment Type Appointment Facili ty Name Jul 26, 2021 10:45 AM AMBULATORY - NONE [facility] Jul 29, 2021 11:30 AM AMBULATORY - NONE [facility] Jul 29, 2021 01:00 PM AMBULATORY - NONE [facility] Jul 29, 2021 02:00 PM AMBULATORY - MEDICINE [facility] Aug 02, 2021 11:30 AM AMBULATORY - NONE [facility] Aug 04, 2021 01:30 PM AMBULATORY - NONE [facility] Aug 11, 2021 12:30 PM AMBULATORY - NONE [facility] Aug 18, 2021 08:00 AM AMBULATORY - NONE [facility] Aug 19, 2021 10:30 AM AMBULATORY - NONE [facility] Aug 23, 2021 12:00 PM AMBULATORY - NONE [facility] Aug 23, 2021 01:00 PM AMBULATORY - NONE [facility] Aug 28, 2021 12:59 PM AMBULATORY - MEDICINE [facility] Sep 04, 2021 07:33 PM AMBULATORY - MEDICINE [facility] Sep 06, 2021 01:30 PM AMBULATORY - NONE [facility] Sep 21, 2021 02:30 PM AMBULATORY - SURGERY [facility] Sep 22, 2021 01:00 PM AMBULATORY - NONE [facility] Sep 28, 2021 07:00 AM AMBULATORY - NONE [facility] Sep 28, 2021 01:30 PM AMBULATORY - SURGERY [facility] Oct 11, 2021 02:30 PM AMBULATORY - MEDICINE [facility] Oct 26, 2021 04:45 PM AMBULATORY - NONE [facility] Lab Results: +/- 30 days [...] Interpretation Reference Range Comment Jul 29, 2021 [facility] DRUG SCREEN PANEL,URINE Spec imen Type: URINE 01:18 PM Comment: Presum ptive Positive by screen, results not confirmed. Ordering Provid er: CARIDAD DENNIS Report Released Date/Time: Jul 29, 2021 01:06 PM Reporting Lab: [facility] [address] [facility] [address] Performing Lab: [facility] [address] [facility] [address] BARBITURATES Negative Negative AMPHETAMINES Negative Negative COCAINE Negative Negative BENZODIAZEPINES Negative Negative CANNABINOIDS Negative Negative METHADONE Negative Negative OPIATES Negative Negative PHENCYCLIDINE Negative Negative ETHANOL,URINE Negative Negative DRUG SCREEN CREAT 64.7 >20.0 OXYCODONE POSITIVE H Negative BUPRENORPHINE Negative Negative TRAMADOL Negative Negative FENTANYL Negative Negative Jul 29, 2021 12:30 PM [facility] HEMOGLOBIN A1C Specim en Type: BLOOD No comment enter ed. Ordering Provid er: CARIDAD DENNIS Report Released Date/Time: Feb 28, 2021 06:22 PM Reporting Lab: [facility] [address] [facility] [address] Performing Lab: [facility] [address] [facility] [address] HEMOGLOBIN A1C 7.0 H 4.0-6.0 Jul 29, 2021 12:30 PM [facility] AST/SGOT Specim en Type: PLASMA No comment enter ed. Ordering Provid er: CARIDAD DENNIS Report Released Date/Time: Feb 28, 2021 06:22 PM Reporting Lab: [facility] [address] [facility] [address] Performing Lab: [facility] [address] [facility] [address] AST/SGOT 13 <34 Jul 29, 2021 12:30 PM [facility] ALT/SGPT Specim en Type: PLASMA No comment enter ed. Ordering Provid er: CARIDAD DENNIS Report Released Date/Time: Feb 28, 2021 06:22 PM Reporting Lab: [facility] [address] [facility] [address] Performing Lab: [facility] [address] [facility] [address] ALT/SGPT 15 <55 Jul 29, 2021 12:30 PM [facility] CBC Specim en Type: BLOOD No comment enter ed. Ordering Provid er: CARIDAD DENNIS Report Released Date/Time: Feb 28, 2021 06:22 PM Reporting Lab: [facility] [address] [facility] [address] Performing Lab: [facility] [address] [facility] [address] WBC 6.29 4.0-11.0 RBC 4.82 4.6-6.2 HGB 13.3 L 13.5-17.9 HCT 42.4 41-54 MCV 88.0 80-100 MCH 27.6 27-33 MCHC 31.4 L 32.0-37.5 PLT 286 150-400 MPV 9.5 7.4-10.4 RDW 16.8 H 11.5-14.5 Jul 29, 2021 12:30 [facility] BASIC METABOLIC Specimen Type: PLASMA PM PANEL+MG No comment enter ed. Ordering Provid er: CARIDAD DENNIS Report Released Date/Time: Feb 28, 2021 06:22 PM Reporting Lab: [facility] [address] [facility] [address] Performing Lab: [facility] [address] [facility] [address] CREATININE 0.7 0.7-1.2 UREA NITROGEN 12 8-26 [...] 11:00 AM [facility]-TOBACCO [facility] USED [facility] Tobacco Use History This section includes a history of the smoking, or tobacco- related health factors, that were collected on or before the date of the Encounter. The data comes from the OR facility where the Encounter took place. Date/Time Smoking Status/Tobacco Use Comment [facility] July 09, 2020 02:00 PM VA-TOBACCO FORMER USER [facility] July 09, 2020 02:00 PM VA-TOBACCO QUIT 15 YRS OR MORE [facility] Apr 17, 2019 02:39 PM INPT NO TOBACCO USE IN LAST 30 DAYS [facility] Feb 04, 2019 10:37 AM [place]-TOBACCO [facility] USED [place] Oct 15, 2018 02:43 PM INPT NO TOBACCO USE IN LAST 30 DAYS [facility] Oct 13, 2018 11:30 PM INPT NO TOBACCO USE IN LAST 30 DAYS [facility] Sep 02, 2018 05:50 PM INPT NO TOBACCO USE IN LAST 30 DAYS [facility] Aug 12, 2018 07:28 PM INPT NO TOBACCO USE IN LAST 30 DAYS [facility] Jan 30, 2018 03:28 PM VA-TOBACCO FORMER USER [facility] Jan 30, 2018 03:28 PM VA-TOBACCO QUIT 15 YRS OR MORE [facility] May 29, 2017 04:53 PM INPT NO TOBACCO USE IN LAST 30 DAYS [facility] Apr 25, 2017 10:44 PM INPT NO TOBACCO USE IN LAST 30 DAYS [facility] Jan 01, 2017 06:40 PM INPT NO TOBACCO USE IN LAST 30 DAYS [facility] Dec 21, 2016 02:43 PM FORMER TOBACCO USER 7Y OR GREATER [facility] Sep 24, 2013 08:52 AM FORMER TOBACCO USER 7Y OR GREATER [facility] Advance Directives: All historical and [...] May 29, 2017 CLINICAL WARNING CORNELIO FREITAS [facility] May 16, 2017 ADVANCE DIRECTIVE SERENITY BUENROSTRO [facility] May 16, 2017 ADVANCE DIRECTIVE DISCUSSION SERENITY BUENROSTRO [place] [facility] May 04, 2017 CLINICAL WARNING MAGO DIAMOND [facility] May 04, 2017 CLINICAL WARNING GAEL ROSARIO [facility] Apr 26, 2017 CLINICAL WARNING JENNIFER DE LEON [facility] Jan 01, 2017 CLINICAL WARNING AYDE WELLS [facility] Jun 09, 2004 ADVANCE DIRECTIVE DARYL VILLARREAL [facility] Jun 07, 2004 ADVANCE DIRECTIVE SHERYL HOLLOWAY [facility] Encounter Notes: All associated encounter notes This section contains the clinical notes associated to the Encounter. Date/Time Encounter Note(s) Provider Source Jul 25, 2021 04:26 PM REPORT OF CONTACT: IRINA ALLEN [facility] LOCAL TITLE: PATIENT CONTACT NOTE - PHARMACY STANDARD TITLE: REPORT OF CONTACT DATE OF NOTE: JUL 25, 2021@16:26 ENTRY DATE: JUL 25, 2021@16:26:41 AUTHOR: IRINA ALLEN EXP COSIGNER: URGENCY: STATUS: COMPLETED Patient Contact Date & Time of Contact: Jul@16:26 Type of Contact: Telephone Reason for Contact: Renewal of medication(s) Medications requested: ROPINIROLE HCL 2MG SA TAB Comments: is requesting Renewal prescript ion to this Discontinued medication. If appropriate send the prescription to pharmacy, or contact the . /vinicio/ IRINA ALLEN [employer] Signed: 07/25/2021 16:27 Receipt Acknowledged By: * AWAITING SIGNATURE * CARIDAD DENNIS
--- OUTSIDE RECORDS SUMMARY | 2021-12-23 18:42 | XMS_ITS | Encounter Summary ---
:1945 Author Organization Department of [facility] rs Address [address] [place] [id number] Support Name Relationship Address Phone FRANCES GANDARA Unavailable [address] [place] [address] FRANCES GANDARA Unavailable [address] [place] [address] FRANCES GANDARA Unavailable [address] [place] [address] FRANCES GANDARA Unavailable [address] [place] [address] Insurance Providers: All historical and current Section [...] MEDICARE MEDICARE PART Apr 19, PART A [id number] Whit MOJICA (WNR) (M) A 2007 50A [phone] JESSICA MEDICARE MEDICARE PART Apr 19, PART A [id number] Whit MOJICA (WNR) (M) A 2007 [id number] [phone] JESSICA Selected Encounter This section includes the information on record at [place] for the Encounter. Date/Time Encounter Type Encounter Reason Provider Source Description Jul 29, 2021 OFFICE O/P EST PRIMARY ICD-10-CM GISELLE MARTINEZ 02:00 PM HI 40-54 MIN CARE/MEDICINE I25.10 [facility] STUART heart disease of [place] coronary artery w/o ang pctrs with Provider Comments: Coronary artery disease (SCT [id number]) IHE Encounter Template Text not used by [facility] Assessments - Encounter Diagnoses This section includes the primary and secondary diagnoses documented for the Encounter. Date/Time Primary/Secondary Diagnosis Name Provider Source Diagnosis Jul 29, 2021 PRIMARY [facility] heart ARMAAN MARTINEZ [place] 08:14 PM disease of [place] Sasha BORGES coronary artery w/o ang pctrs Jul 29, 2021 SECONDARY Charcot's joint, ARMAAN MARTINEZ [place] 08:14 PM right ankle and Sasha BORGES foot Jul 29, 2021 SECONDARY Type 2 diabetes ARMAAN MARTINEZ [place] 08:14 PM mellitus with Sasha BORGES unspecified complications Plan of Treatment: Future Appointments [...] Date/Time Appointment Type Appointment Facili ty Name Aug 02, 2021 11:30 AM AMBULATORY - NONE [facility] Aug 04, 2021 01:30 PM AMBULATORY - NONE [facility] Aug 11, 2021 12:30 PM AMBULATORY - NONE [facility] Aug 18, 2021 08:00 AM AMBULATORY - NONE [facility] Aug 19, 2021 10:30 AM AMBULATORY - NONE [facility] Aug 23, 2021 12:00 PM AMBULATORY - NONE [facility] Aug 23, 2021 01:00 PM AMBULATORY - NONE [facility] Aug 28, 2021 12:59 PM AMBULATORY - MEDICINE [facility] Sep 04, 2021 07:33 PM AMBULATORY - MEDICINE [facility] Sep 06, 2021 01:30 PM AMBULATORY - NONE [facility] Sep 21, 2021 02:30 PM AMBULATORY - SURGERY [facility] Sep 22, 2021 01:00 PM AMBULATORY - NONE [facility] Sep 28, 2021 07:00 AM AMBULATORY - NONE [facility] Sep 28, 2021 01:30 PM AMBULATORY - SURGERY [facility] Oct 11, 2021 02:30 PM AMBULATORY - MEDICINE [facility] Oct 26, 2021 04:45 PM AMBULATORY - NONE [facility] Nov 02, 2021 04:30 PM AMBULATORY - NONE [facility] Nov 07, 2021 06:00 PM AMBULATORY - NONE [facility] Nov 09, 2021 03:30 PM AMBULATORY - MEDICINE [facility] Nov 29, 2021 01:30 PM AMBULATORY - MEDICINE [facility] Lab Results: +/- 30 days [...] Interpretation Reference Range Comment Jul 29, 2021 [facility] DRUG SCREEN PANEL,URINE Spec imen Type: URINE 01:18 PM Comment: Presum ptive Positive by screen, results not confirmed. Ordering Provid er: GISELLE MARTINEZ Report Released Date/Time: Jul 29, 2021 01:06 PM Reporting Lab: [facility] [address] [facility] [address] Performing Lab: [facility] [id number] BARBITURATES Negative Negative AMPHETAMINES Negative Negative COCAINE Negative Negative BENZODIAZEPINES Negative Negative CANNABINOIDS Negative Negative METHADONE Negative Negative OPIATES Negative Negative PHENCYCLIDINE Negative Negative ETHANOL,URINE Negative Negative DRUG SCREEN CREAT 64.7 >20.0 OXYCODONE POSITIVE H Negative BUPRENORPHINE Negative Negative TRAMADOL Negative Negative FENTANYL Negative Negative Jul 29, 2021 12:30 PM [facility] HEMOGLOBIN A1C Specim en Type: BLOOD No comment enter ed. Ordering Provid er: GISELLE MARTINEZ Report Released Date/Time: Feb 28, 2021 06:22 PM Reporting Lab: [facility] [address] [facility] [address] Performing Lab: [facility] [address] [facility] [address] HEMOGLOBIN A1C 7.0 H 4.0-6.0 Jul 29, 2021 12:30 PM [facility] AST/SGOT Specim en Type: PLASMA No comment enter ed. Ordering Provid er: GISELLE MARTINEZ Report Released Date/Time: Feb 28, 2021 06:22 PM Reporting Lab: [facility] [address] [facility] [address] Performing Lab: [facility] [address] [facility] [address] AST/SGOT 13 <34 Jul 29, 2021 12:30 PM [facility] ALT/SGPT Specim en Type: PLASMA No comment enter ed. Ordering Provid er: SONNYGISELLE NARCISO Report Released Date/Time: Feb 28, 2021 06:22 PM Reporting Lab: [facility] [address] [facility] [address] Performing Lab: [facility] [address] [facility] [address] ALT/SGPT 15 <55 Jul 29, 2021 12:30 PM [facility] CBC Specim en Type: BLOOD No comment enter ed. Ordering Provid er: SONNYGISELLEOSCAR STUART Report Released Date/Time: Feb 28, 2021 06:22 PM Reporting Lab: [facility] [address] [facility] [address] Performing Lab: [facility] [address] [facility] [address] WBC 6.29 4.0-11.0 RBC 4.82 4.6-6.2 HGB 13.3 L 13.5-17.9 HCT 42.4 41-54 MCV 88.0 80-100 MCH 27.6 27-33 MCHC 31.4 L 32.0-37.5 PLT 286 150-400 MPV 9.5 7.4-10.4 RDW 16.8 H 11.5-14.5 Jul 29, 2021 12:30 [facility] BASIC METABOLIC Specimen Type: PLASMA PM PANEL+MG No comment enter ed. Ordering Provid er: SONNYGISELLEOSCAR STUART Report Released Date/Time: Feb 28, 2021 06:22 PM Reporting Lab: [facility] [address] [facility] [address] Performing Lab: [facility] [address] [facility] [address] CREATININE 0.7 0.7-1.2 UREA NITROGEN 12 8-26 GLUCOSE 170 H 74-100 SODIUM 141 136-145 POTASSIUM 3.9 3.5-5.1 CHLORIDE 105 98-107 CO2 28 22-29 CALCIUM 9.1 8.4-10.2 MAGNESIUM 2.3 1.6-2.6 ANION GAP 8 5-15 CREAT EGFR(CKD-EPI) >90 >60 Vital Signs: All taken on the encounter date This section contains inpatient and outpatient Vital Signs collected on the date of the Encounter. Date/Time Temperature Pulse Blood Respiratory SP02 Pain Height Weight Joseph dy Source Pressure Rate Mass Index Jul 29, 98.5 F 73 127/80 18 /min 93 % 5 73 in 230 lb 30 [place] 2021 01:02 /min mm[Hg] [facility] Social History: Smoking Status [...] 11:00 AM VA-TOBACCO NEVER USED [place] [facility] Tobacco Use History This section includes a history of the smoking, or tobacco- related health factors, that were collected on or before the date of the Encounter. The data comes from the [place] facility where the Encounter took place. Date/Time Smoking Status/Tobacco Use Comment [facility] July 09, 2020 02:00 PM VA-TOBACCO FORMER USER [place] [facility] July 09, 2020 02:00 PM VA-TOBACCO QUIT 15 YRS OR MORE [facility] Apr 17, 2019 02:39 PM INPT NO TOBACCO USE IN LAST 30 DAYS [facility] Feb 04, 2019 10:37 AM [place]-TOBACCO NEVER USED [place] [facility] Oct 15, 2018 [...] 03:28 PM VA-TOBACCO [facility]ER [place] [facility] Jan 30, 2018 03:28 PM [...] May 29, 2017 CLINICAL WARNING CORNELIO FREITAS MERARY Cordova [facility] May 16, 2017 [facility] May 16, 2017 ADVANCE DIRECTIVE DISCUSSION [facility]ENITY BUENROSTRO [place] [facility] May 04, 2017 CLINICAL WARNING MAGO DIAMOND Shashank [facility] May 04, 2017 CLINICAL WARNING BITAGAEL PARRA [facility] Apr 26, 2017 CLINICAL WARNING MOISESJENNIFER P [facility] Jan 01, 2017 CLINICAL WARNING AYDE WELLS [facility] Jun 09, 2004 ADVANCE DIRECTIVE DARYL VILLARREAL [facility] Jun 07, 2004 ADVANCE DIRECTIVE SHERYL HOLLOWAY [facility] Encounter Notes: All associated encounter notes This section contains the clinical notes associated to the Encounter. Date/Time Encounter Note(s) Provider Source Jul 29, 2021 08:01 LETTERS: GISELLE MARTINEZ [facility] PM LOCAL TITLE: FOLLOW UP RESULTS COLLEEN STUART STANDARD TITLE: LETTERS DATE OF NOTE: JUL 29, 2021@20:01 ENTRY DATE: JUL 29, 2021@20:01:52 AUTHOR: GISELLE MARTINEZ EXP COSIGNER: URGENCY: STATUS: COMPLETED [facility] [address] [place] [address] [place] [address] Dear Nelson: I am writing to inform you of the results of dean aleidag that you had done recently at the [facility]. Medication list adjustments due to duplications, etc Artificial tears - > use carboxymethylcellulose eye solution instead Hydrocortisone cream --> use triamcinolone cream instead. Vashe wound therapy --> use integrity wound spra y instead Changes per discussion metformin and potassium -> changed from powder/l iquid to Tabs pregabalin - change from 100mg three times a day to 150mg two times a day Diabetes - If you have low sugar sugar <90, then we shoul d reduce glipizide to 5mg (1/2 of 10mg) twice a day Eye drops - you will need to contact your eye do ctor for refills Not sure if you still need them - Latanoprost - Prednisolone - Sodium chloride drops and ointment (seems to b e duplicate with Carboxymethylcellulose eye drops so use that ins tead) Stop - vitamin E. Toothpaste - you will need to talk to dental to renew it. If any additional questions or concerns, please call us at [phone] or send us a Secure Message via [email or web address] Sincerely, Giselle Martinez MD Staff Physician Jul 29, 2021 07:09 LETTERS: GISELLE MARTINEZ [facility] LOCAL TITLE: FOLLOW UP RESULTS LETTER NARCISO STANDARD TITLE: LETTERS DATE OF NOTE: JUL 29, 2021@19:09 ENTRY DATE: JUL 29, 2021@19:09:23 AUTHOR: GISELLE MARTINEZ EXP COSIGNER: URGENCY: STATUS: COMPLETED [facility] [address] [place] [address] Jul JESSICA MOJICA [address] [place] [address] [place] [address] Dear Nelson: I am writing regarding your request for us to flag your dentist regarding your A1c. You have been seen by several dentists in the De ntal department so it's best that you reach out to dental department on what's needed. I'm unable to figure out who discussed the problem with high a1c with you based on the notes. If you have any further ques tions or problems, please contact our nursing staff or provider at the following number: . Sincerely, Giselle Martinez MD Staff Physician Jul 29, 2021 01:03 INTERNAL MEDICINE OUTPATIENT NOTE: JARED GUIDO [facility] PM LOCAL TITLE: MEDICINE CLINIC NURSING NOTE OM G STANDARD TITLE: INTERNAL MEDICINE OUTPATIENT NOT E DATE OF NOTE: JUL 29, 2021@13:03 ENTRY DATE: JUL 29, 2021@13:03:45 AUTHOR: SANYA CASE EXP COSIGNER: URGENCY: STATUS: COMPLETED MEDICINE CLINIC NURSING NOTE Has ADDENDA * TYPE OF VISIT: Appointment Check In Type of appointment: In-person appointment REASON FOR VISIT: F/u hospitalization ALLERGIES: RIVAROXABAN (Jul 25, 2017) VITAL SIGNS: Blood Pressure: 127/80 (07/29/2021 13:02) Pulse: 73 (07/29/2021 13:02) Respiration: 18 (07/29/2021 13:02) Temperature: 98.5 F [36.9 C] (07/29/2021 13:02) Weight: 230 lb [104.33 kg] (07/29/2021 13:02) Height: 73 in [185.4 cm] (07/29/2021 13:) BMI: 30.4 O2 Sat: 93% (07/29/2021 13:02) Pain: 5 (07/29/2021 13:) PAIN SCREEN: Patient is not having significant pain that the y wish to discuss with their provider today. Alcohol Use Screen (AUDIT-C): Alcohol Screen: SCREEN FOR ALCOHOL (AUDIT-C) An alcohol screening test (AUDIT-C) was negativ e (score=0). 1. How often did you have a drink containing al cohol in the past year? Never 2. How many drinks containing alcohol did you h ave on a typical day when you were drinking in the past year? Response not required due to responses to other questions. 3. How often did you have six or more drinks on one occasion in the past year? Response not required due to responses to other questions. Depression Screening: Perform PHQ-2 A PHQ-2 screen was performed. The score was 0 w hich is a negative screen for depression. Over the past two weeks, how often have you bee n bothered by the following problems? 1. Little interest or pleasure in doing things Not at all 2. Feeling down, depressed, or hopeless Not at all Urine Drug Screen: Urine Drug Screen (UDS) is due yearly for patie nts on controlled substances. Urine Drug Screen ordered. /vinicio/ SANYA CASE LPN LPN Signed: 07/29/2021 13:06 07/29/2021 ADDENDUM STATUS: COMPLETED Procedure: Urine Drug Screen Instructed in collection of urine drug screen. Printed instructions provided and participant(s) is able to repeat t hese instructions accurately. Review recent medication history: Has patient used any controlled substance in th e past 3 days: Yes, Patient reports using the following, Medication name and dose: Oxycodone 5mgt Date and time it was taken: yesterday Has Patient used any Non-VA or zfuo-tzk-pkudlcm medications in the past 3 days: No Has patient used any illegal substance in the p ast 3 days: No Urine Drug Screen (UDS): sent to lab /es/ ANDOM Abhijit CASE LPN LPN Signed: 07/29/2021 13:20 Jul 29, 2021 12:42 INTERNAL MEDICINE [facility] LOCAL TITLE: MEDICINE CLINIC NOTE STUART STANDARD TITLE: INTERNAL MEDICINE NOTE DATE OF NOTE: JUL 29, 2021@12:42 ENTRY DATE: JUL 29, 2021@12:42:28 AUTHOR: GISELLE MARTINEZ EXP COSIGNER: URGENCY: STATUS: COMPLETED MEDICINE CLINIC NOTE Has ADDENDA PACT [address] [place] [address] Primary Care Clinic Progress No te Name: JESSICA MOJICA Age: [address] [place] [address] Occupation: RETIRED 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 ASSESSMENT & PLAN; HPI summary/updates 0 Clinic: [facility] POD ANNUAL-YUNIOR 07/29/21 14:00 F2F Visit F/U: existing recall /next year and PRN for new /changes in symptoms Special/follow up notes: none HPI summary: recovering fine from foot surgery. need refills # DM charcot foot s/p surgery surgical wound is clean. no drainage A1c controlled at 7 on insulin, glipizide, metfo rmin, jardiance - report no low sugar - replaced w restore dressing # CAD h/o STEMI; CABG x 4 (emergent) 05/06; EF 55 % 12/06 # HTN uncontrolled SBP 140-160s recently 03/23 giuseppe n[; prev hypotensive on ACEI # HFpEF TTE repeat 12/2020 # --> pending f/u w cardiology in Oct 2021 f or repeat TTE - c/w atorvastatin, aspirin. not on BB due to lo w HR - on stable Bumex 1mg BID + KCL 20 - losartan restarted and doing ok spend 30min just sorting through his meds and do ing refills Medication list adjustments due to duplications, etc Artificial tears - > use carboxymethylcellulose eye solution instead Hydrocortisone cream --> use triamcinolone cream instead. Vashe wound therapy --> use integrity wound spra y instead Changes per discussion metformin and potassium -> changed from powder/l iquid to Tabs pregabalin - change from 100mg three times a day to 150mg two times a day Diabetes - If you have low sugar sugar <90, then we shoul d reduce glipizide to 5mg (1/2 of 10mg) twice a day Eye drops - you will need to contact your eye do ctor for refills Not sure if you still need them - Latanoprost - Prednisolone - Sodium chloride drops and ointment (seems to b e duplicate with Carboxymethylcellulose eye drops so use that ins tead) Stop - vitamin E. (study was done in non-DM populatio n and not recommended for DM population) Toothpaste - you will need to talk to dental to renew it. Active and Recently Outpatient Medicatio ns (excluding Supplies): Active Outpatient Medications Status 1) CADEXOMER IODINE 0.9% TOP GEL APPLY TO INCISI ON OF ACTIVE RIGHT FOOT TOPICALLY NEEDED EVERY OTHER DAY 2) LIDOCAINE 5% OINT APPLY MODERATE AMOUNT TOPIC ALLY ACTIVE FOUR TIMES A DAY NEEDED FOR PAIN 3) LIDOCAINE 5% PATCH APPLY 1 PATCH TOPICALLY EV MARGARITO DAY ACTIVE NEEDED FOR PAIN. WEAR FOR ONLY 12 HOURS THEN REMOVE FOR 12 HOURS. 4) NALOXONE HCL 4MG/SPRAY SOLN NASAL SPRAY SPRAY 1 DOSE ACTIVE IN ONE NOSTRIL DIRECTED FOR UNRESPONSIVENESS (FOR NARCOTIC OVERDOSE) THEN CALL 911 - IF NO CHANGE IN 2-3 MINUTES, GIVE SECOND DOSE IN OPPO SITE NOSTRIL 5) OXYCODONE 5MG/ACETAMINOPHEN 325MG TAB TAKE 2 TABLETS ACTIVE BY MOUTH THREE TIMES A DAY FOR SEVERE FOOT PAIN 6) ROPINIROLE HCL 2MG SA TAB TAKE TWO TABLETS BY MOUTH ACTIVE EVERY DAY 7) VANICREAM TOP CREAM APPLY THIN LAYER TOPICALL Y EVERY ACTIVE DAY FOR DRY SKIN, IDEALLY WITHIN 3 MINUTES AFTE R BATH OR SHOWER. Pending Outpatient Medications Status 1) ACCU-CHEK GUIDE (GLUCOSE) TEST STRIP USE [address] RIP PENDING EVERY DAY TO CHECK BLOOD SUGAR--USE WITHIN 3 MINUTES OF REMOVING FROM CONTAINER 2) ACETAMINOPHEN 500MG TAB TAKE ONE TABLET BY [facility] PENDING EVERY 6 HOURS NEEDED FOR PAIN*NOT TO EXCEED 4000MG IN 24 HOURS FROM ALL SOURCES* 3) ALBUTEROL 90MCG (CFC-F) 200D ORAL INHL INHALE 2 PUFFS PENDING BY INHALATION FOUR TIMES A DAY NEEDED FOR IMMEDIATE RELIEF OF SHORTNESS OF BREATH *SHAKE WELL* 4) ARTIFICIAL SALIVA (BIOTENE MOUTH) SPRAY 1-2 S PRAYS IN PENDING MOUTH EVERY HOUR NEEDED FOR DRY MOUTH 5) ASPIRIN 81MG EC TAB TAKE ONE TABLET BY MOUTH EVERY PENDING DAY TO PREVENT HEART ATTACK DO NOT CHEW 6) ATORVASTATIN CALCIUM 80MG TAB TAKE ONE TABLET BY PENDING MOUTH AT BEDTIME FOR CHOLESTEROL AND HEART DISE ASE 7) BUMETANIDE 1MG TAB TAKE ONE TABLET BY MOUTH T WICE A PENDING DAY FOR FLUID RETENTION 8) BUPROPION HCL 150MG 24HR SA TAB TAKE ONE TABL ET BY PENDING MOUTH EVERY DAY 9) CARBOXYMETHYLCELLULOSE NA 0.5% OPH SOLN INSTI LL 1 PENDING DROP IN BOTH EYES FOUR TIMES A DAY FOR DRY EYES 10) CITALOPRAM HYDROBROMIDE 20MG TAB TAKE ONE TA BLET BY PENDING MOUTH EVERY DAY FOR DEPRESSION 11) CLEANSER,WOUND SKINTEGRITY TOP SPRAY SPRAY T OPICALLY PENDING DIRECTED 12) CLOTRIMAZOLE 1% TOP CREAM APPLY TO AFFECTED AREA PENDING TOPICALLY TWICE A DAY NEEDED EXTERNAL USE ONLY FOR FUNGAL INFECTIONS 13) CODEINE 10/GG 100MG/5ML (ALC-F/SF) LIQ TAKE 5 ML TO PENDING 10 ML BY MOUTH THREE TIMES A DAY NEEDED FOR COUGH 14) CYANOCOBALAMIN 1000MCG TAB TAKE TWO TABLETS BY MOUTH PENDING EVERY WEEK FOR VITAMIN B12 SUPPLEMENT 15) DICLOFENAC NA 1% TOP GEL APPLY 2 GRAMS TOPIC ALLY FOUR PENDING TIMES A DAY NEEDED TO AFFECTED AREA FOR PAIN . *USE DOSE CARD IN BOX TO MEASURE DOSE. MAX 32 G CESAR PER DAY. 16) DOCUSATE NA 50MG/SENNOSIDES 8.6MG TAB TAKE 1 TABLET PENDING BY MOUTH TWICE A DAY NEEDED STOP IF DIARRH EA OCCURS 17) EMPAGLIFLOZIN 25MG TAB TAKE ONE-HALF TABLET BY MOUTH PENDING EVERY MORNING FOR DIABETES 18) ERGOCALCIF 1,250MCG (D2-50,000UNIT) CAP TAKE ONE PENDING CAPSULE BY MOUTH EVERY MONTH 19) FLUTICASONE PROP 50MCG 120D NASAL INHL SPRAY 1 PUFF PENDING EACH NOSTRIL IN EACH NOSTRIL TWICE A DAY FOR NASAL USE 20) GLIPIZIDE 10MG TAB TAKE ONE TABLET BY MOUTH TWICE A PENDING DAY TAKE 30 MINUTES BEFORE MEAL FOR DIABETE S 21) IBUPROFEN 600MG TAB TAKE ONE TABLET BY MOUTH EVERY PENDING DAY NEEDED FOR JOINT PAIN TAKE WITH FOOD 22) INSULIN,GLARGINE 100 UNT/ML 3ML SOLOSTAR INJ ECT 8 PENDING UNITS UNDER THE SKIN AT BEDTIME FOR DIABETES DISPENSE WITH SOLSTAR PEN 23) LOSARTAN 50MG TAB TAKE ONE-HALF TABLET BY MO UTH EVERY PENDING DAY FOR HIGH BLOOD PRESSURE 24) MICONAZOLE NITRATE 2% TOP PWDR USE TO AFFECT ED AREA PENDING TOPICALLY TWICE A DAY FOR FUNGAL INFECTION/GROI N RASH 25) MULTIVIT W/MINERALS, CAP/TAB TAKE 1 TABLET BY PENDING MOUTH EVERY DAY FOR FOLIC ACID AND IRON DEFICIE NCY (REPLACES FERROUS SULFATE) 26) POTASSIUM CL 20MEQ SA TAB (DISPERSIBLE) TAKE ONE PENDING TABLET BY MOUTH EVERY DAY 27) PREGABALIN 150MG ORAL CAP TAKE ONE CAPSULE B Y MOUTH PENDING TWICE A DAY 28) PROPRANOLOL HCL 80MG TAB TAKE ONE TABLET BY MOUTH PENDING TWICE A DAY FOR HAND TREMOR 29) SEMAGLUTIDE 1MG/0.75ML INJ PEN 3ML INJECT 1M G UNDER PENDING THE SKIN EVERY WEEK 30) TADALAFIL 20MG TAB TAKE ONE TABLET BY MOUTH AT PENDING BEDTIME TAKE AT LEAST 30 MINUTES BEFORE ANTICIP ATED SEXUAL ACTIVITY. MAXIMUM 4 DOSES FOR 30-DAY SUP PLY 31) TRIAMCINOLONE ACETONIDE 0.1% CREAM APPLY THI N LAYER PENDING TOPICALLY TWICE A DAY AVOID FACE,GROIN & ARMP ITS *FOR EXTERNAL USE ONLY 38 Total Medications ---- Unmodified Notes from Previous A/P for rd lopez ---- Summary of risk assessment METS/activity - unknown Smoking/RAJESH - no smoking, yes RAJESH but doens't us e the machine Heme - PE in 2018; xeralto -> hemopysis per prob agata list DM - a1c improved to 8 with insulin HTN - controlled ---- updated Portions of Previous A/P ------- # RLS - prev on requip 2mg [...] which is helping with the pain # Chronic back pain w sciatica stable L spine xray with degenerative changes consider MRI in the future if pain is ucnontrolled. 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 - c/w chiro, acupuncture, lido cream and patch - report no drowsiness/fall/constipation and no driving on med - change from gabapentin to lyrica; increased ox ycodone temporarily to 10mg TID expect to decrease back to BID post surgery and pt aware # Charcots pending surgery end of 2020 - prev - inc oxy to 2 tabs TID (until surgery) ---- Unmodified Portions of Previous A/P ------- # polypharmacy - spent considerable time at [facility] cleaning up med list # recent blood [...] smoking FHx - n/a Preventive screening - FIT+ 2019, FIT - 2020 Adv directive - per postings Reviewed available labs/scans today as appropria te. Future Appointments: JUL 29, 2021@11:30 Clinic: [facility] SPEC TRANS WHEELCHAIR JUL 29, 2021@13:00 Clinic: [facility] PC LAB 4E JUL 29, 2021@14:00 Clinic: [facility] PACT SAPPHIRE 4E AUG 04, 2021@13:30 Clinic: [facility] VCL SPEC TRANS OF F CONTR SEP 06, 2021@13:30 Clinic: [facility] PROS ORTH SCHILLE R 60 SEP 07, 2021@13:00 Clinic: [facility] POD NURSE CL SEP 19, 2021@10:30 Clinic: [facility] UROL RTC DARY DEC 12, 2021@13:00 Clinic: [facility] NURSE CL JAN 19, 2022@13:00 Clinic: [facility] EYE OPHTHAL [place] FEB 23, 2022@08:00 Clinic: [facility] CARE-ADMIN KATHERINE CORMIER MAR 08, 2022@13:00 Clinic: [facility] POD ANNUAL- NOV 12, 2020 Proc: Bilateral 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 Sooner PRN if changes/new/worsening symptoms; contacts provide d. Nursing notes reviewed. CC in nursing note/HPI. Updated Problem List as needed re past med/surg/fam/social history. HPI See A/P section for HPI, discussions and con cerns. Skin Tests/Immunizations: INFLUENZA, INJECTABLE, QUADRIVALENT, PRESERVATI VE FREE Oct COVID-19 (PFIZER), MRNA, LNP-S, PF, 30 MCG/0.3 ML DOSE Nov COVID-19 (PFIZER), MRNA, LNP-S, PF, 30 MCG/0.3 ML DOSE, SAIRA-SUCROSE (AGES 12+ YEARS) APR 14,2022 Relevant ROS: See HPI. Rest of ROS neg below Patient reports no fever/chills no chest pain/shortness of breath no blood in urine / stool no abdominal pain Med/Surg/Fam/Soc Hx: Reviewed and updated as kalyn ded in problem list VS & EXAM Temp: 97.8 F [36.6 C] (04/25/2021 11:00) Resp: 1 8 (04/25/2021 11:00) Pulse: 76 (04/25/2021 11:00) Pain: 5 (04/25/2021 11:00) Osat 96% (04/25/2021 11:00) Measurement DT BP 04/25/2021 11:04 146/76 04/25/2021 11:00 157/82 03/28/2021 14:03 138/79 Measurement DT WEIGHT LB(KG)[BMI] 04/25/2021 11:00 Unavailable 03/28/2021 14:03 235.2(106.68)[32*] 01/05/2021 10:29 Unavailable Appearance: awake, alert, NAD; well appearing HEENT: NC/AT, normal conj, no external abnormali ties Neck: supple, no deformities Card: Reg rate, good S1, S2, no rubs/gallops sys tolic murmur 2/6 Resp: good air mvmt, clear to auscultation, no r ales/rhonchi/wheezes MSK - R foot in boot, plantar area with 2x3cm wo und clean w/o erythema Labs/tests: see below. See A/P for relevant disc ussion. See CPRS problem list for any relevant external results MEDICATIONS Active Outpatient Medications (including Supplie s): Outpatient Medications Status 1) CADEXOMER IODINE 0.9% TOP GEL APPLY TO INCISI ON OF ACTIVE RIGHT FOOT TOPICALLY NEEDED EVERY OTHER DAY 2) DRESS,MEPILEX BORDER FLEX 4X4IN #427509 APPLY 1 ACTIVE DRESSING DIRECTED 3) GAUZE PAD 4IN X 4IN 12-PLY STERILE USE GAUZE SPONGE ACTIVE TOPICALLY DIRECTED 4) LIDOCAINE 5% OINT APPLY MODERATE AMOUNT TOPIC ALLY ACTIVE FOUR TIMES A DAY NEEDED FOR PAIN 5) LIDOCAINE 5% PATCH APPLY 1 PATCH TOPICALLY EV MARGARITO DAY ACTIVE NEEDED FOR PAIN. WEAR FOR ONLY 12 HOURS THEN REMOVE FOR 12 HOURS. 6) NALOXONE HCL 4MG/SPRAY SOLN NASAL SPRAY SPRAY 1 DOSE ACTIVE IN ONE NOSTRIL DIRECTED FOR UNRESPONSIVENESS (FOR NARCOTIC OVERDOSE) THEN CALL 911 - IF NO CHANGE IN 2-3 MINUTES, GIVE SECOND DOSE IN OPPO SITE NOSTRIL 7) OXYCODONE 5MG/ACETAMINOPHEN 325MG TAB TAKE 2 TABLETS ACTIVE BY MOUTH THREE TIMES A DAY FOR SEVERE FOOT PAIN 8) ROPINIROLE HCL 2MG SA TAB TAKE TWO TABLETS BY MOUTH ACTIVE EVERY DAY 9) TAPE,MEDIPORE H SOFT 4IN X 10YD 3M#8594 CUT A ND APPLY ACTIVE TAPE TOPICALLY DIRECTED 10) VANICREAM TOP CREAM APPLY THIN LAYER TOPICAL LY EVERY ACTIVE DAY FOR DRY SKIN, IDEALLY WITHIN 3 MINUTES AFTE R BATH OR SHOWER. Non-VA Medications Status 1) Non-VA OXYMETAZOLINE HCL 0.05% NASAL SPRAY 1 SPRAY ACTIVE EACH NOSTRIL NEEDED 11 Total Medications PROBLEM LIST (see CPRS for any updates done duri ng the [...] -> inc LFT, n ot on anticoag / hemoptysis 11. Essential tremor - on propranolol [...] RIVAROXABAN (Jul 25, 2017) LAB/TEST DATA See CPRS problem list for any additional externa l results WBC 4.06 (04/28/21) PLT 263 (04/28/21) HGB 14.8 BLOOD (04/28/21 13:17) 13.4 L BLOOD (03/01/21 09:31) 14.6 BLOOD (12/15/20 12:44) IRON 36 L (12/15/20) TRANSFERRIN 237 (12/15/20) TIBC,CALCULATED 296 (12/15/20) IRON SATURATION 12 L (12/15/20) Collection DT Spec HGBA1C 04/28/2021 13:17 BLOOD 8.0 H 03/01/2021 09:31 BLOOD 8.0 H 12/15/2020 12:44 BLOOD 9.5 H Na: SODIUM 137 (04/28/21) K: POTASSIUM 4.5 (04/28/21) Cl: CHLORIDE 103 (04/28/21) CO2: CO2 28 (04/28/21) BUN: UREA NITROGEN 16 (04/28/21) Creatinine: CREATININE 0.7 (04/28/21) Glucose: GLUCOSE 207 H (04/28/21) CREATININE 0.7 PLASMA (04/28/21 13:17) 0.6 L PLASMA (12/15/20 12:44) 0.5 L PLASMA (12/14/20 04:25) SGOT 14 (04/28/21) SGPT 14 (04/28/21) BILIRUBIN, TOTAL 0.8 (04/28/21) No data available CHOLESTEROL____ TRIGLYCERIDE____ HDL____ LDL CALCULATION____ SLT - Lab Tests Selected Collection DT Specimen Test Name Result Units Re f Range 08/12/2018 14:21 PLASMA LDL CALCULATION 69 mg/dL Ref: <= 99 MEASURED LDL____ No data available Collection DT Specimen Test Name Result Units Re f Range 04/28/2021 13:17 PLASMA TSH 0.73 uIU/mL 0.35 - 4.94 10/13/2018 17:00 PLASMA TSH 1.19 uIU/mL 0.35 - 4.94 Patient was informed [...] of above a nd no further questions. /vinicio/ Giselle Martinez MD Staff Physician Signed: 07/29/2021 20:15 07/29/2021 ADDENDUM STATUS: COMPLETED # FIT + 2019 - > GI referral /vinicio/ Giselle Martinez MD Staff Physician Signed: 07/29/2021 20:16
--- OUTSIDE RECORDS SUMMARY | 2021-12-23 18:43 | XMS_ITS | Encounter Summary ---
:1945 Author Organization Department [facility] rs Address [address] [place] [address] Support Name Relationship Address Phone FRANCES GANDARA Unavailable [address] [place] [address] FRANCES GANDARA Unavailable [address] [place] [address] FRANCES GANDARA Unavailable [address] [place] [address] FRANCES GANDARA Unavailable [address] [place] [address] Insurance Providers: All historical and current Section [...] MEDICARE MEDICARE PART Apr 19, PART A [id number] Whit MOJICA (WNR) (M) A 2007 [id number] [phone] JESSICA MEDICARE MEDICARE PART Apr 19, PART A [id number] Whit [place] (WNR) (M) A 2007 50A [phone] JESSICA Selected Encounter This section includes the information on record at [place] for the Encounter. Date/Time Encounter Type Encounter Description Reason Provider Source Jul 29, 2021 11:30 Outpatient Encounter HIEN DUMONT AM (JONATHONCT) IHE Encounter Template Text not used by [place] Plan of Treatment: Future Appointments (+ 6 [...] 20 appointments. The data comes from all [place] treatment facilities. Appointment Date/Time Appointment Type Appointment Facili ty Name Aug 02, 2021 11:30 AM AMBULATORY - NONE [facility] Aug 04, 2021 01:30 PM AMBULATORY - NONE [facility] Aug 11, 2021 12:30 PM AMBULATORY - NONE [facility] Aug 18, 2021 08:00 AM AMBULATORY - NONE [facility] Aug 19, 2021 10:30 AM AMBULATORY - NONE [facility] Aug 23, 2021 12:00 PM AMBULATORY - NONE [facility] Aug 23, 2021 01:00 PM AMBULATORY - NONE [facility] Aug 28, 2021 12:59 PM AMBULATORY - MEDICINE [facility] Sep 04, 2021 07:33 PM AMBULATORY - MEDICINE [facility] Sep 06, 2021 01:30 PM AMBULATORY - NONE [facility] Sep 21, 2021 02:30 PM AMBULATORY - SURGERY [facility] Sep 22, 2021 01:00 PM AMBULATORY - NONE [facility] Sep 28, 2021 07:00 AM AMBULATORY - NONE [facility] Sep 28, 2021 01:30 PM AMBULATORY - SURGERY [facility] Oct 11, 2021 02:30 PM AMBULATORY - MEDICINE [facility] Oct 26, 2021 04:45 PM AMBULATORY - NONE [facility] Nov 02, 2021 04:30 PM AMBULATORY - NONE [facility] Nov 07, 2021 06:00 PM AMBULATORY - NONE [facility] Nov 09, 2021 03:30 PM AMBULATORY - MEDICINE [facility] Nov 29, 2021 01:30 PM AMBULATORY - MEDICINE [facility] Lab Results: +/- 30 days of [...] Interpretation Reference Range Comment Jul 29, 2021 [facility] DRUG SCREEN PANEL,URINE Spec imen Type: URINE 01:18 PM Comment: Presum ptive Positive by screen, results not confirmed. Ordering Provid er: CARIDAD DENNIS Report Released Date/Time: Jul 29, 2021 01:06 PM Reporting Lab: [facility] [address] [facility] [address] Performing Lab: [facility] [address] [facility] [address] BARBITURATES Negative Negative AMPHETAMINES Negative Negative COCAINE Negative Negative BENZODIAZEPINES Negative Negative CANNABINOIDS Negative Negative METHADONE Negative Negative OPIATES Negative Negative PHENCYCLIDINE Negative Negative ETHANOL,URINE Negative Negative DRUG SCREEN CREAT 64.7 >20.0 OXYCODONE POSITIVE H Negative BUPRENORPHINE Negative Negative TRAMADOL Negative Negative FENTANYL Negative Negative Jul 29, 2021 12:30 PM [facility] HEMOGLOBIN A1C Specim en Type: BLOOD No comment enter ed. Ordering Provid er: CARIDAD DENNIS Report Released Date/Time: Feb 28, 2021 06:22 PM Reporting Lab: [facility] [address] [facility] [address] Performing Lab: [facility] [address] [facility] [address] HEMOGLOBIN A1C 7.0 H 4.0-6.0 Jul 29, 2021 12:30 PM [facility] AST/SGOT Specim en Type: PLASMA No comment enter ed. Ordering Provid er: CARIDAD DENNIS Report Released Date/Time: Feb 28, 2021 06:22 PM Reporting Lab: [facility] [address] [facility] [address] Performing Lab: [facility] [address] [facility] [address] AST/SGOT 13 <34 Jul 29, 2021 12:30 PM [facility] ALT/SGPT Specim en Type: PLASMA No comment enter ed. Ordering Provid er: CARIDAD DENNIS Report Released Date/Time: Feb 28, 2021 06:22 PM Reporting Lab: [facility] [address] [facility] [address] Performing Lab: [facility] [address] [facility] [address] ALT/SGPT 15 <55 Jul 29, 2021 12:30 PM [facility] CBC Specim en Type: BLOOD No comment enter ed. Ordering Provid er: CARIDAD DENNIS Report Released Date/Time: Feb 28, 2021 06:22 PM Reporting Lab: [facility] [address] [facility] [address] Performing Lab: [facility] [address] [facility] [address] WBC 6.29 4.0-11.0 RBC 4.82 4.6-6.2 HGB 13.3 L 13.5-17.9 HCT 42.4 41-54 MCV 88.0 80-100 MCH 27.6 27-33 MCHC 31.4 L 32.0-37.5 PLT 286 150-400 MPV 9.5 7.4-10.4 RDW 16.8 H 11.5-14.5 Jul 29, 2021 12:30 [facility] BASIC METABOLIC Specimen Type: PLASMA PM PANEL+MG No comment enter ed. Ordering Provid er: CARIDAD DENNIS Report Released Date/Time: Feb 28, 2021 06:22 PM Reporting Lab: [facility] [address] Performing Lab: [facility] [address] CREATININE 0.7 0.7-1.2 UREA NITROGEN 12 8-26 [...] lb 30 [place] 2021 01:02 /min mm[Hg] IS [facility] Social History: Smoking Status (Most current) [...] Comment Facility Apr 25, 2021 11:00 AM [place]-TOBACCO NEVER USED [facility] Tobacco Use History This section includes a history of the smoking, or tobacco- related health factors, that were collected on or before the date of the Encounter. The data comes from the [facility] where the Encounter took place. Date/Time Smoking Status/Tobacco Use Comment Facil ity July 09, 2020 02:00 PM [place]-TOBACCO FORMER USER [facility] July 09, 2020 02:00 PM VA-TOBACCO QUIT 15 YRS OR MORE [facility] Apr 17, 2019 02:39 PM INPT NO TOBACCO USE IN LAST 30 DAYS [facility] Feb 04, 2019 10:37 AM [place]-TO[place]ACCO NEVER USED [place] [facility] Oct 15, 2018 02:43 [...] 2018 03:28 PM [place]-TOBACCO FORMER USER MIN [facility] Jan 30, 2018 03:28 PM VA-TOBACCO [...] 29, 2017 CLINICAL WARNING CORNELIO FREITAS [facility] May 16, 2017 ADVANCE DIRECTIVE SERENITY BUENROSTRO [facility] May 16, 2017 ADVANCE DIRECTIVE DISCUSSION SERENITY [place]ROSTRO [place] [facility] May 04, 2017 CLINICAL WARNING MAGO DIAMOND [facility] May 04, 2017 CLINICAL WARNING GAEL ROSARIO [facility] Apr 26, 2017 CLINICAL WARNING JENNIFER DE LEON [facility] Jan 01, 2017 CLINICAL WARNING AYDE WELLS [facility] Jun 09, 2004 ADVANCE DIRECTIVE DARYL VILLARREAL [facility] Jun 07, 2004 ADVANCE DIRECTIVE SHERYL HOLLOWAY [facility]
--- OUTSIDE RECORDS SUMMARY | 2021-12-23 18:46 | XMS_ITS | Encounter Summary ---
:1945 Author Organization [facility] Address [address] [place] [id number] Support Name Relationship Address Phone FRANCES GANDARA Unavailable [address] [place] [address] FRANCES GANDARA Unavailable [address] [place] [address] FRANCES GANDARA Unavailable [address] [place] [address] FRANCES GANDARA Unavailable [address] [place] [address] Insurance Providers: All historical and current Section [...] MEDICARE MEDICARE PART Apr 19, PART A [id number] 800 Whit MOJICA (WNR) (M) A 2007 50A [phone] JESSICA MEDICARE MEDICARE PART Apr 19, PART A [id number] 800 Whit [place] (WNR) (M) A 2007 [id number] [phone] JESSICA Selected Encounter This section includes the information on record at [place] for the Encounter. Date/Time Encounter Type Encounter Description Reason Provider Source Aug 12, 2021 01:03 Outpatient Encounter TELEPHONE TRIAGE PM IHE Encounter [...] data comes from all [place] treatment facilities. Appointment Date/Time Appointment Type Appointment Facili ty Name Aug 18, 2021 08:00 AM AMBULATORY - NONE [facility] Aug 19, 2021 10:30 AM AMBULATORY - NONE [facility] Aug 23, 2021 12:00 PM AMBULATORY - NONE [facility] Aug 23, 2021 01:00 PM AMBULATORY - NONE [facility] Aug 28, 2021 12:59 PM AMBULATORY - MEDICINE [facility] Sep 04, 2021 07:33 PM AMBULATORY - MEDICINE [facility] Sep 06, 2021 01:30 PM AMBULATORY - NONE [facility] Sep 21, 2021 02:30 PM AMBULATORY - SURGERY [facility] Sep 22, 2021 01:00 PM AMBULATORY - NONE [facility] Sep 28, 2021 07:00 AM AMBULATORY - NONE [facility] Sep 28, 2021 01:30 PM AMBULATORY - SURGERY [facility] Oct 11, 2021 02:30 PM AMBULATORY - MEDICINE [facility] Oct 26, 2021 04:45 PM AMBULATORY - NONE [facility] Nov 02, 2021 04:30 PM AMBULATORY - NONE [facility] Nov 07, 2021 06:00 PM AMBULATORY - NONE [facility] Nov 09, 2021 03:30 PM AMBULATORY - MEDICINE [facility] Nov 29, 2021 01:30 PM AMBULATORY - MEDICINE [facility] Nov 29, 2021 02:30 PM AMBULATORY - MEDICINE [facility] Dec 07, 2021 04:45 PM AMBULATORY - NONE [facility] Dec 12, 2021 02:30 PM AMBULATORY - SURGERY [facility] Lab Results: +/- 30 days of [...] Interpretation Reference Range Comment Jul 29, 2021 [facility] DRUG SCREEN PANEL,URINE Spec imen Type: URINE 01:18 PM Comment: Presum ptive Positive by screen, results not confirmed. Ordering Provid er: CARIDAD DENNIS Report Released Date/Time: Jul 29, 2021 01:06 PM Reporting Lab: [facility] [address] [facility] [address] Performing Lab: [facility] [address] [facility] [address] BARBITURATES Negative Negative AMPHETAMINES Negative Negative COCAINE Negative Negative BENZODIAZEPINES Negative Negative CANNABINOIDS Negative Negative METHADONE Negative Negative OPIATES Negative Negative PHENCYCLIDINE Negative Negative ETHANOL,URINE Negative Negative DRUG SCREEN CREAT 64.7 >20.0 OXYCODONE POSITIVE H Negative BUPRENORPHINE Negative Negative TRAMADOL Negative Negative FENTANYL Negative Negative Jul 29, 2021 12:30 PM [facility] HEMOGLOBIN A1C Specim en Type: BLOOD No comment enter ed. Ordering Provid er: CARIDAD DENNIS Report Released Date/Time: Feb 28, 2021 06:22 PM Reporting Lab: [facility] [address] [facility] [address] Performing Lab: [facility] [address] [facility] [address] HEMOGLOBIN A1C 7.0 H 4.0-6.0 Jul 29, 2021 12:30 PM [facility] AST/SGOT Specim en Type: PLASMA No comment enter ed. Ordering Provid er: CARIDAD DENNIS Report Released Date/Time: Feb 28, 2021 06:22 PM Reporting Lab: [facility] [address] [facility] [address] Performing Lab: [facility] [address] [facility] [address] AST/SGOT 13 <34 Jul 29, 2021 12:30 PM [facility] ALT/SGPT Specim en Type: PLASMA No comment enter ed. Ordering Provid er: CARIDAD DENNIS Report Released Date/Time: Feb 28, 2021 06:22 PM Reporting Lab: [facility] [address] [facility] [address] Performing Lab: [facility] [address] [facility] [address] ALT/SGPT 15 <55 Jul 29, 2021 12:30 [facility] BASIC METABOLIC Specimen Type: PLASMA PM PANEL+MG No comment enter ed. Ordering Provid er: CARIDAD DNENIS Report Released Date/Time: Feb 28, 2021 06:22 PM Reporting Lab: [facility] [address] [facility] [address] Performing Lab: [facility] [address] [facility] [address] CREATININE 0.7 0.7-1.2 UREA NITROGEN 12 8-26 GLUCOSE 170 H 74-100 SODIUM 141 136-145 POTASSIUM 3.9 3.5-5.1 CHLORIDE 105 98-107 CO2 28 22-29 CALCIUM 9.1 8.4-10.2 MAGNESIUM 2.3 1.6-2.6 ANION GAP 8 5-15 CREAT EGFR(CKD-EPI) >90 >60 Jul 29, 2021 12:30 PM [facility] CBC Specim en Type: BLOOD No comment enter ed. Ordering Provid er: CARIDAD DENNIS Report Released Date/Time: Feb 28, 2021 06:22 PM Reporting Lab: [facility] [address] [facility] [address] Performing Lab: [facility] [address] [facility] [address] [facility] [address] WBC 6.29 4.0-11.0 RBC 4.82 4.6-6.2 HGB [...] Comment Facility Apr 25, 2021 11:00 AM [place]-TO[place] USED [place] [facility] Tobacco Use History This section includes a history of the smoking, or tobacco- related health factors, that were collected on or before the date of the Encounter. The data comes from the [place] facility where the Encounter took place. Date/Time Smoking Status/Tobacco Use Comment [facility] July 09, 2020 02:00 PM [place]-TOBACCO FORMER USER [place] [facility] July 09, 2020 02:00 PM VA-TOBACCO QUIT 15 YRS OR MORE [facility] Apr 17, 2019 02:39 PM INPT NO TOBACCO USE IN LAST 30 DAYS [facility] Feb 04, 2019 10:37 AM [place]-TOBACCO [place] USED [place] [facility] Oct 15, 2018 02:43 PM INPT [...] 2018 03:28 PM [place] Jan 30, 2018 03:28 PM [...] this document. The data comes from all [place] facilities. Date Advance Directives Provider Source May 29, 2017 CLINICAL WARN[facility] May 16, 2017 ADVANCE DIRECTIVE SERENITY BUENROSTRO [facility] May 16, 2017 ADVANCE DIRECTIVE DISCUSSION SERENITY BUENROSTRO [facility] May 04, 2017 CLINICAL WARNING MAGO DIAMOND [facility] May 04, 2017 CLINICAL WARNING GAEL ROSARIO [facility] Apr 26, 2017 CLINICAL WARNING JENNIFER DE LEON [facility] Jan 01, 2017 CLINICAL WARNING AYDE WELLS [facility] Jun 09, 2004 ADVANCE DIRECTIVE DARYL VILLARREAL [facility] Jun 07, 2004 ADVANCE DIRECTIVE SHERYL HOLLOWAY [facility] Encounter Notes: All associated encounter notes This section contains the clinical notes associated to the Encounter. Date/Time Encounter Note(s) Provider Source Aug 12, 2021 01:03 PM REPORT OF CONTACT: AIRAM DELEON [facility] LOCAL TITLE: PATIENT CONTACT NOTE A STANDARD TITLE: REPORT OF CONTACT DATE OF NOTE: AUG 12, 2021@13:03 ENTRY DATE: AUG 12, 2021@13:03:26 AUTHOR: TABATHA DELEON EXP COSIGNER: URGENCY: STATUS: COMPLETED Primary Care Call Center Patient called and requested compilot2 and tv li nk2. Patient confirmed address is correct. Phone number verified as correct. [phone] /es/ AIRAM DELEON COPYRIGHT MANAGER Signed: 08/12/2021 13:04 Receipt Acknowledged By: * AWAITING SIGNATURE * BAKARI RAND
--- OUTSIDE RECORDS SUMMARY | 2021-12-23 18:49 | XMS_ITS | Encounter Summary ---
:[address] [facility] Address [address] [place] [address] Support Name Relationship Address Phone FRANCES GANDARA Unavailable [address] [place] [address] FRANCES GANDARA Unavailable [address] [place] [address] FRANCES GANDARA Unavailable [address] [place] [address] FRANCES GANDARA Unavailable [address] [place] [address] Insurance Providers: All historical and current Section [...] MEDICARE MEDICARE PART Apr 19, PART A [id number] Whit MOJICA (WNR) (M) A 2007 [id number] [phone] JESSICA MEDICARE MEDICARE PART Apr 19, PART A [id number] Whit MOJICA (WNR) (M) A 2007 50A [phone] JESSICA Selected Encounter This section includes the information on record at [facility] for the Encounter. Date/Time Encounter Type Encounter Reason Provider Source Description Aug 17, 2021 10:37 Outpatient TELEPHONE/ANCILLARY Sasha GOODE AM Encounter IHE Encounter Template Text not used by [facility] Plan of Treatment: Future Appointments (+ 6 months) and Future Tests (+/- 45 days) The Plan of Treatment section includes future care activities for the patient from all [facility] treatmentfacilities. This section includes future appointments and future orders which are active, pending orscheduled.Future Appointments This section includes appointments that were scheduled to occur 6 months from the date of the Encounter, up to a maximum of 20 appointments. The data comes from all [facility] treatment facilities. Appointment Date/Time Appointment Type Appointment Facili ty Name Aug 18, 2021 08:00 AM AMBULATORY - NONE [facility] Aug 19, 2021 10:30 AM AMBULATORY - NONE [facility] Aug 23, 2021 12:00 PM AMBULATORY - NONE [facility] Aug 23, 2021 01:00 PM AMBULATORY - NONE [facility] Aug 28, 2021 12:59 PM AMBULATORY - MEDICINE [facility] Sep 04, 2021 07:33 PM AMBULATORY - MEDICINE [facility] Sep 06, 2021 01:30 PM AMBULATORY - NONE [facility] Sep 21, 2021 02:30 PM AMBULATORY - SURGERY [facility] Sep 22, 2021 01:00 PM AMBULATORY - NONE [facility] Sep 28, 2021 07:00 AM AMBULATORY - NONE [facility] Sep 28, 2021 01:30 PM AMBULATORY - SURGERY [facility] Oct 11, 2021 02:30 PM AMBULATORY - MEDICINE [facility] Oct 26, 2021 04:45 PM AMBULATORY - NONE [facility] Nov 02, 2021 04:30 PM AMBULATORY - NONE [facility] Nov 07, 2021 06:00 PM AMBULATORY - NONE [facility] Nov 09, 2021 03:30 PM AMBULATORY - MEDICINE [facility] Nov 29, 2021 01:30 PM AMBULATORY - MEDICINE [facility] Nov 29, 2021 02:30 PM AMBULATORY - MEDICINE [facility] Dec 07, 2021 04:45 PM AMBULATORY - NONE [facility] Dec 12, 2021 02:30 PM AMBULATORY - SURGERY [facility] Lab Results: +/- 30 days of the encounter This section includes the Chemistry and Hematology Lab Results on record with [facility] for the patient. Radiology Reports and Pathology Reports are provided separately, in subsequent sections.Lab Results This section contains the Chemistry/Hematology Results that were resulted 30 days before or 30 daysafter the date of the Encounter. Date/Time Source Result Type Result - Unit Interpretation Reference Range Comment Jul 29, 2021 [facility] DRUG SCREEN PANEL,URINE Spec imen Type: URINE 01:18 PM Comment: Presum ptive Positive by screen, results not confirmed. Ordering Provid er: CARIDAD DENNIS Report Released Date/Time: Jul 29, 2021 01:06 PM Reporting Lab: [facility] [address] [facility] [address] Performing Lab: [facility] [address] [facility] [address] BARBITURATES Negative Negative AMPHETAMINES Negative Negative COCAINE Negative Negative BENZODIAZEPINES Negative Negative CANNABINOIDS Negative Negative METHADONE Negative Negative OPIATES Negative Negative PHENCYCLIDINE Negative Negative ETHANOL,URINE Negative Negative DRUG SCREEN CREAT 64.7 >20.0 OXYCODONE POSITIVE H Negative BUPRENORPHINE Negative Negative TRAMADOL Negative Negative FENTANYL Negative Negative Jul 29, 2021 12:30 PM [facility] HEMOGLOBIN A1C Specim en Type: BLOOD No comment enter ed. Ordering Provid er: CARIDAD DENNIS Report Released Date/Time: Feb 28, 2021 06:22 PM Reporting Lab: [facility] [address] [facility] [address] Performing Lab: [facility] [address] [facility] [address] HEMOGLOBIN A1C 7.0 H 4.0-6.0 Jul 29, 2021 12:30 PM [facility] AST/SGOT Specim en Type: PLASMA No comment enter ed. Ordering Provid er: CARIDAD DENNIS Report Released Date/Time: Feb 28, 2021 06:22 PM Reporting Lab: [facility] [address] [facility] [address] Performing Lab: [facility] [address] [facility] [address] AST/SGOT 13 <34 Jul 29, 2021 12:30 PM [facility] ALT/SGPT Specim en Type: PLASMA No comment enter ed. Ordering Provid er: CARIDAD DENNIS Report Released Date/Time: Feb 28, 2021 06:22 PM Reporting Lab: [facility] [address] [facility] [address] Performing Lab: [facility] [address] [facility] [address] ALT/SGPT 15 <55 Jul 29, 2021 12:30 PM [facility] CBC Specim en Type: BLOOD No comment enter ed. Ordering Provid er: CARIDAD DENNIS Report Released Date/Time: Feb 28, 2021 06:22 PM Reporting Lab: [facility] [address] [facility] [address] Performing Lab: [facility] [address] [facility] [address] WBC 6.29 4.0-11.0 RBC 4.82 4.6-6.2 HGB 13.3 L 13.5-17.9 HCT 42.4 41-54 MCV 88.0 80-100 MCH 27.6 27-33 MCHC 31.4 L 32.0-37.5 PLT 286 150-400 MPV 9.5 7.4-10.4 RDW 16.8 H 11.5-14.5 Jul 29, 2021 12:30 [facility] BASIC METABOLIC Specimen Type: PLASMA PM PANEL+MG No comment enter ed. Ordering Provid er: CARIDAD DENNIS Report Released Date/Time: Feb 28, 2021 06:22 PM Reporting Lab: [facility] [address] Performing Lab: [facility] [address] CREATININE 0.7 0.7-1.2 UREA NITROGEN 12 8-26 [...] smoking and tobacco-related health factors from the [facility] where the Encounter took place.Current Smoking Status This section includes the most current smoking, or tobacco-related health factor, from the [facility] facility where the Encounter took place. Date/Time Current Smoking Status Comment Facility Apr 25, 2021 11:00 AM [facility]-TOBACCO NEVER USED [facility] [facility] Tobacco Use History This section includes a history of the smoking, or tobacco- related health factors, that were collected on or before the date of the Encounter. The data comes from the [facility] facility where the Encounter took place. Date/Time Smoking Status/Tobacco Use Comment [facility] July 09, 2020 02:00 PM [place]-TOBACCO FORMER USER [facility] July 09, 2020 02:00 PM [facility]-TOBACCO QUIT 15 YRS OR MORE [facility] Apr 17, 2019 02:39 PM INPT NO TOBACCO USE IN LAST 30 DAYS [facility] Feb 04, 2019 10:37 AM [facility]-TOBACCO NEVER USED [facility] Oct 15, 2018 02:43 [...] 2018 03:28 PM [facility]-TO[facility]ACCO [facility] Jan 30, 2018 [...] ALL of a patient's completed or amended [facility] Advance and Rescinded Directives. The entries below indicate that a directive exists for the patient, but an actual copy is not included with this document. The data comes from all [facility] facilities. Date Advance Directives Provider Source May 29, 2017 CLINICAL WARNING CORNELIO FREITAS [facility] May 16, 2017 ADVANCE DIRECTIVE SERENITY BUENROSTRO [facility] May 16, 2017 ADVANCE DIRECTIVE DISCUSSION SERENITY BUENROSTRO [place] [facility] May 04, 2017 CLINICAL [...] SHERYL HOLLOWAY [facility] Encounter Notes: All associated encounter notes This section contains the clinical notes associated to the Encounter. Date/Time Encounter Note(s) Provider Source Aug 17, 2021 10:37 AM SATP MEDICATION MGT NOTE: FRANCES GOODE [facility] LOCAL TITLE: CHRONIC OPIOID MANAGEMENT PROGRAM STANDARD TITLE: SATP MEDICATION MGT NOTE DATE OF NOTE: AUG 17, 2021@10:37 ENTRY DATE: AUG 17, 2021@10:37:18 AUTHOR: FRANCES GOODE EXP COSIGNER: URGENCY: STATUS: COMPLETED Medication: Oxycodone 5mg/Acetaminophen 325mg Due to mail out on (date): due now Date patient was last seen by Primary Opioid Pre scriber: 07/29/21 Date of last Prescription Monitoring Program in quiry: 12/16/20 MEDD (as prescribed): 45 (Morphine Equivalent Daily Dose) Date of iMED Consent: 02/28/19 Urine Drug Screen: date done: 07/29/21 significant for: +oxycodone Information: Reminder Term: V23 NALOXONE PRESCRIPTION Drug: NALOXONE HCL 4MG/SPRAY SOLN NASAL SPRAY Outpatient Medication: NALOXONE HCL 4MG/SPRAY S OLN NASAL SPRAY 08/13/2021@19:04:58 Status: ACTIVE Start date: 07/14/2021@19:04:58 Stop date: 07/21@19:04:58 Duration: 30 D Last release date: 07/14/2021@19:04:58 Days sup ply: 30 /es/ Frances Goode LPN Staff Nurse Signed: 08/17/2021 10:38 Receipt Acknowledged By: * AWAITING SIGNATURE * CARIDAD DENNIS
--- OUTSIDE RECORDS SUMMARY | 2021-12-23 18:51 | XMS_ITS | Encounter Summary ---
:1945 Author Organization [facility] Address [address] [place] [address] Support Name Relationship Address Phone FRANCES GANDARA Unavailable [address] [place] [address] FRANCES GANDARA Unavailable [address] [place] [address] FRANCES GANDARA Unavailable [address] [place] [address] FRANCES GANDARA Unavailable [address] [place] [address] Insurance Providers: All historical and current Section [...] MEDICARE MEDICARE PART Apr 19, PART A [id number] Whit MOJICA (WNR) (M) A 2007 50A [phone] JESSICA MEDICARE MEDICARE PART Apr 19, PART A [id number] 800 Whit MOJICA (WNR) (M) A 2007 [id number] [phone] JESSICA Selected Encounter This section includes the information on record at [place] for the Encounter. Date/Time Encounter Type Encounter Description Reason Provider Source Aug 05, 2021 02:00 Outpatient Encounter PRIMARY CARE/MEDICINE PM [facility] Encounter [...] Appointment Type Appointment Facili ty Name Aug 11, 2021 12:30 PM AMBULATORY - NONE [facility] Aug 18, 2021 08:00 AM AMBULATORY - NONE [facility] Aug 19, 2021 10:30 AM AMBULATORY - NONE [facility] Aug 23, 2021 12:00 PM AMBULATORY - NONE [facility] Aug 23, 2021 01:00 PM AMBULATORY - NONE [facility] Aug 28, 2021 12:59 PM AMBULATORY - MEDICINE [facility] Sep 04, 2021 07:33 PM AMBULATORY - MEDICINE [facility] Sep 06, 2021 01:30 PM AMBULATORY - NONE [facility] Sep 21, 2021 02:30 PM AMBULATORY - SURGERY [facility] Sep 22, 2021 01:00 PM AMBULATORY - NONE [facility] Sep 28, 2021 07:00 AM AMBULATORY - NONE [facility] Sep 28, 2021 01:30 PM AMBULATORY - SURGERY [facility] Oct 11, 2021 02:30 PM AMBULATORY - MEDICINE [facility] Oct 26, 2021 04:45 PM AMBULATORY - NONE [facility] Nov 02, 2021 04:30 PM AMBULATORY - NONE [facility] Nov 07, 2021 06:00 PM AMBULATORY - NONE [facility] Nov 09, 2021 03:30 PM AMBULATORY - MEDICINE [facility] Nov 29, 2021 01:30 PM AMBULATORY - MEDICINE [facility] Nov 29, 2021 02:30 PM AMBULATORY - MEDICINE [facility] Dec 07, 2021 04:45 PM AMBULATORY - NONE [facility] Lab Results: +/- 30 days [...] Interpretation Reference Range Comment Jul 29, 2021 [facility] DRUG SCREEN PANEL,URINE Spec imen Type: URINE 01:18 PM Comment: Presum ptive Positive by screen, results not confirmed. Ordering Provid er: GISELLE MARTINEZ Report Released Date/Time: Jul 29, 2021 01:06 PM Reporting Lab: [facility] [address] [facility] [address] Performing Lab: [facility] [address] [facility] [address] BARBITURATES Negative Negative AMPHETAMINES Negative Negative COCAINE Negative Negative BENZODIAZEPINES Negative Negative CANNABINOIDS Negative Negative METHADONE Negative Negative OPIATES Negative Negative PHENCYCLIDINE Negative Negative ETHANOL,URINE Negative Negative DRUG SCREEN CREAT 64.7 >20.0 OXYCODONE POSITIVE H Negative BUPRENORPHINE Negative Negative TRAMADOL Negative Negative FENTANYL Negative Negative Jul 29, 2021 12:30 PM [facility] HEMOGLOBIN A1C Specim en Type: BLOOD No comment enter ed. Ordering Provid er: GISELLE MARTINEZ Report Released Date/Time: Feb 28, 2021 06:22 PM Reporting Lab: [facility] [address] [facility] [address] Performing Lab: [facility] [address] [facility] [address] HEMOGLOBIN A1C 7.0 H 4.0-6.0 Jul 29, 2021 12:30 PM [facility] AST/SGOT Specim en Type: PLASMA No comment enter ed. Ordering Provid er: GISELLE MARTINEZ Report Released Date/Time: Feb 28, 2021 06:22 PM Reporting Lab: [facility] [address] [facility] [address] Performing Lab: [facility] [address] [facility] [address] AST/SGOT 13 <34 Jul 29, 2021 12:30 PM [facility] ALT/SGPT Specim en Type: PLASMA No comment enter ed. Ordering Provid er: GISELLE MARTINEZ Report Released Date/Time: Feb 28, 2021 06:22 PM Reporting Lab: [facility] [address] [facility] [address] Performing Lab: [facility] [address] [facility] [address] ALT/SGPT 15 <55 Jul 29, 2021 12:30 [facility] BASIC METABOLIC Specimen Type: PLASMA PM PANEL+MG No comment enter ed. Ordering Provid er: GISELLE MARTINEZ Report Released Date/Time: Feb 28, 2021 06:22 PM Reporting Lab: [facility] [address] [facility] [address] Performing Lab: [facility] [address] [facility] [address] CREATININE 0.7 0.7-1.2 UREA NITROGEN 12 8-26 GLUCOSE 170 H 74-100 SODIUM 141 136-145 POTASSIUM 3.9 3.5-5.1 CHLORIDE 105 98-107 CO2 28 22-29 CALCIUM 9.1 8.4-10.2 MAGNESIUM 2.3 1.6-2.6 ANION GAP 8 5-15 CREAT EGFR(CKD-EPI) >90 >60 Jul 29, 2021 12:30 PM [facility] CBC Specim en Type: BLOOD No comment enter ed. Ordering Provid er: GISELLE MARTINEZ Report Released Date/Time: Feb 28, 2021 06:22 PM Reporting Lab: [facility] [address] [facility] [phone] Performing Lab: [facility] ONE [facility] [address] WBC 6.29 4.0-11.0 RBC 4.82 4.6-6.2 HGB [...] Comment Facility Apr 25, 2021 11:00 AM [place]-TOBACCO NEVER USED [facility] [facility] Tobacco Use History This section includes a history of the smoking, or tobacco- related health factors, that were collected on or before the date of the Encounter. The data comes from the [place] facility where the Encounter took place. Date/Time Smoking Status/Tobacco Use Comment [facility] July 09, 2020 02:00 PM [place]-TOBACCO FORMER USER [place] [facility] July 09, 2020 02:00 PM VA-TOBACCO QUIT 15 YRS OR MORE [facility] Apr 17, 2019 02:39 PM INPT NO TOBACCO USE IN LAST 30 DAYS [facility] Feb 04, 2019 10:37 AM [place]-TOBACCO NEVER USED [facility] Oct 15, 2018 02:43 PM INPT NO TOBACCO USE IN LAST 30 DAYS [facility] Oct 13, 2018 11:30 PM INPT NO TOBACCO USE IN LAST 30 DAYS [facility] Sep 02, 2018 05:50 PM INPT NO TOBACCO USE IN LAST 30 DAYS [facility] Aug 12, 2018 07:28 PM INPT NO TOBACCO USE IN LAST 30 DAYS [facility] Jan 30, 2018 03:28 PM [facility]-TOBACCO FORMER USER [facility] Jan 30, 2018 03:28 PM VA-TOBACCO QUIT 15 YRS OR MORE [facility] May 29, 2017 04:53 PM INPT NO TOBACCO USE IN LAST 30 DAYS [facility] Apr 25, 2017 10:44 PM INPT NO TOBACCO USE IN LAST 30 DAYS [facility] Jan 01, 2017 06:40 PM INPT NO TOBACCO USE IN LAST 30 DAYS [facility] Dec 21, 2016 02:43 PM FORMER TOBACCO USER 7Y OR GREATER [facility] Sep 24, 2013 08:52 AM FORMER TOBACCO USER 7Y OR GREATER [facility] Advance Directives: All historical and [...] 29, 2017 CLINICAL WARNING CORNELIO FREITAS [facility] May 16, 2017 ADVANCE DIRECTIVE SERENITY BUENROSTRO [facility] May 16, 2017 ADVANCE DIRECTIVE DISCUSSION [facility] [place] [facility] May 04, 2017 CLINICAL WARNING MAGO DIAMOND [facility] May 04, 2017 CLINICAL WARNING GAEL ROSARIO [facility] Apr 26, 2017 CLINICAL WARNING JENNIFER DE LEON [facility] Jan 01, 2017 CLINICAL WARNING AYDE WELLS [facility] Jun 09, 2004 ADVANCE DIRECTIVE DARYL VILLARREAL [facility] Jun 07, 2004 ADVANCE DIRECTIVE SHERYL HOLLOWAY [facility] Encounter Notes: All associated encounter notes This section contains the clinical notes associated to the Encounter. Date/Time Encounter Note(s) Provider Source Aug 19, 2021 04:52 PM LETTERS: GISELLE MARTINEZ [facility] LOCAL TITLE: FOLLOW UP RESULTS LETTER STANDARD TITLE: LETTERS DATE OF NOTE: AUG 19, 2021@16:52 ENTRY DATE: AUG 19, 2021@16:52:59 AUTHOR: GISELLE MARTINEZ EXP COSIGNER: URGENCY: STATUS: COMPLETED [facility] [address] [place] [address] Aug JESSICA MOJICA [address] [place] [address] Dear : I am writing to inform you of the results of dean shing that you had done recently at the [facility] em. ----- Notes/Comments: Please provide your dentist with the latest suga r numbers. Your diabetes is now controlled ----- - Kidney function CREATININE 0.7 (07/29/21)(normal Male = less th an 1.2; normal Female = less than 1.0)) UREA NITROGEN 12 (07/29/21) (normal Male is 8-2 6; normal Female is 10- 20) - Blood Sugar GLUCOSE 170 H (07/29/21) (normal is 74 - 106 if fasting) - Hemoglobin A1C (normal 4.0-6.0) Collection DT Spec HGBA1C 07/29/2021 12:30 BLOOD 7.0 H 04/28/2021 13:17 BLOOD 8.0 H 03/01/2021 09:31 BLOOD 8.0 H If you have any further questions or problems, whit garcia contact our nursing staff or provider at the following number: [phone]. Sincerely, Giselle Martinez MD Staff Physician
--- OUTSIDE RECORDS SUMMARY | 2021-12-23 18:53 | XMS_ITS | Encounter Summary ---
:1945 Author Organization [facility] Address [address] [place] [address] Support Name Relationship Address Phone FRANCES GANDARA Unavailable [address] [place] [address] FRANCES GANDARA Unavailable [address] [place] [address] FRANCES GANDARA Unavailable [address] [place] [address] FRANCES GANDARA Unavailable [address] [place] [address] Insurance Providers: All historical and current Section [...] MEDICARE MEDICARE PART Apr 19, PART A [id number] Whit MOJ[place] (WNR) (M) A 2007 50A [phone] JESSICA MEDICARE MEDICARE PART Apr 19, PART A [id number] 800 Whit [place] (WNR) (M) A 2007 [id number] [phone] JESSICA Selected Encounter This section includes the information on record at [place] for the Encounter. Date/Time Encounter Type Encounter Description Reason Provider Source Aug 23, 2021 01:52 Outpatient Encounter PODIATRY PM IHE Encounter Template Text not used [...] Appointment Type Appointment Facili ty Name Aug 28, 2021 12:59 PM AMBULATORY - MEDICINE [facility] Sep 04, 2021 07:33 PM AMBULATORY - MEDICINE [facility] Sep 06, 2021 01:30 PM AMBULATORY - NONE [facility] Sep 21, 2021 02:30 PM [facility] Sep 22, 2021 01:00 PM AMBULATORY - NONE [facility] Sep 28, 2021 07:00 AM AMBULATORY - NONE [facility] Sep 28, 2021 01:30 PM [facility] Oct 11, 2021 02:30 PM AMBULATORY - MEDICINE [facility] CS Oct 26, 2021 04:45 PM AMBULATORY - NONE [facility] Nov 02, 2021 04:30 PM AMBULATORY - NONE [facility] Nov 07, 2021 06:00 PM AMBULATORY - NONE [facility] Nov 09, 2021 03:30 PM AMBULATORY - MEDICINE [facility] CS Nov 29, 2021 01:30 PM AMBULATORY - MEDICINE [facility] CS Nov 29, 2021 02:30 PM AMBULATORY - MEDICINE [facility] CS Dec 07, 2021 04:45 PM AMBULATORY - NONE [facility] Dec 12, 2021 02:30 PM AMBULATORY - SURGERY [facility] S Dec 15, 2021 10:00 AM AMBULATORY - MEDICINE [facility] CS Dec 15, 2021 12:30 PM AMBULATORY - NONE [facility] Dec 15, 2021 12:45 PM AMBULATORY - NONE [facility] Dec 15, 2021 02:30 PM AMBULATORY - SURGERY [facility] S Lab Results: +/- 30 days [...] Lab: [facility] [address] [facility] [address] Performing Lab: [facility] [address] [facility] [address] BARBITURATES Negative Negative AMPHETAMINES Negative Negative COCAINE [...] Lab: [facility] [address] [facility] [address] Performing Lab: [facility] [address] [facility] [address] HEMOGLOBIN A1C 7.0 H 4.0-6.0 Jul 29, 2021 12:30 PM [facility] ALT/SGPT Specim en Type: PLASMA No comment enter ed. Ordering Provid er: CARIDAD DENNIS Report Released Date/Time: Feb 28, 2021 06:22 PM Reporting Lab: [facility] [address] [facility] [address] Performing Lab: [facility] [address] [facility] [address] ALT/SGPT 15 <55 Jul 29, 2021 12:30 PM [facility] AST/SGOT Specim en Type: PLASMA No comment enter ed. Ordering Provid er: CARIDAD DENNIS Report Released Date/Time: Feb 28, 2021 06:22 PM Reporting Lab: [facility] [address] [facility] [address] Performing Lab: [facility] [address] [facility] [address] AST/SGOT 13 <34 Jul 29, 2021 12:30 PM [facility] CBC Specim en Type: BLOOD No comment enter ed. Ordering Provid er: CARIDAD DENNIS Report Released Date/Time: Feb 28, 2021 06:22 PM Reporting Lab: [facility] [address] [facility] [address] Performing Lab: [facility] [address] [facility] [address] WBC 6.29 4.0-11.0 RBC 4.82 4.6-6.2 HGB [...] PM Reporting Lab: [facility] [address] [facility] [address] Performing Lab: [facility] [address] [facility] [address] CREATININE 0.7 0.7-1.2 UREA NITROGEN 12 8-26 [...] 2021 11:00 AM VA-TOBACCO NEVER USED [place] [facility] [facility] Tobacco Use History This section includes a history of the smoking, or tobacco- related health factors, that were collected on or before the date of the Encounter. The data comes from the [place] facility where the Encounter took place. Date/Time Smoking Status/Tobacco Use Comment [facility] July 09, 2020 02:00 PM VA-TOBACCO FORMER USER [place] [facility] July 09, 2020 02:00 PM VA-TOBACCO QUIT 15 YRS OR MORE [facility] Apr 17, 2019 02:39 PM INPT NO TOBACCO USE IN LAST 30 DAYS [facility] Feb 04, 2019 10:37 AM [place] [facility] Oct 15, 2018 02:43 PM INPT NO [...] 2018 03:28 PM [facility] Jan 30, 2018 03:28 PM [...] 2017 ADVANCE DIRECTIVE DISCUSSION [facility] [place] [facility] May 04, 2017 CLINICAL WARNING MAGO DIAMOND [facility] May 04, 2017 CLINICAL WARNING GAEL ROSARIO [facility] Apr 26, 2017 CLINICAL WARNING JENNIFER DE LEON [facility] Jan 01, 2017 CLINICAL WARNING AYDE WELLS [facility] Jun 09, 2004 ADVANCE DIRECTIVE DARYL VILLARREAL [facility] Jun 07, 2004 ADVANCE DIRECTIVE SHERYL HOLLOWAY [facility] Encounter Notes: All associated encounter notes This section contains the clinical notes associated to the Encounter. Date/Time Encounter Note(s) Provider Source Aug 23, 2021 01:52 PM REPORT OF CONTACT: KELLI ELIST. [facility] LOCAL TITLE: APPOINTMENT SCHEDULING NOTE STANDARD TITLE: REPORT OF CONTACT DATE OF NOTE: AUG 23, 2021@13:52 ENTRY DATE: AUG 23, 2021@13:52:18 AUTHOR: KELLI ELI COSIGNER: URGENCY: STATUS: COMPLETED Attempt to schedule return to clinic Cancellation: [facility] not seen for scheduled appointment due to: Clinic cancelled appointment. Contact: Called [facility] at: Aug 23, 2021 Cancelled clinic appointment Feb Sent letter by regular [place] mail to address on [address], [place] [id number] /es/ KELLI ELI ADVANCED MSA Signed: 08/23/2021 13:52
--- OUTSIDE RECORDS SUMMARY | 2021-12-23 18:54 | XMS_ITS | Encounter Summary ---
:1945 Author Organization [facility] Address [address] [place] [address] Support Name Relationship Address Phone FRANCES GANDARA Unavailable [address] [place] [address] FRANCES GANDARA Unavailable [address] [place] [address] FRANCES GANDARA Unavailable [address] [place] [address] FRANCES GANDARA Unavailable [address] [place] [address] Insurance Providers: All historical and current Section [...] MEDICARE MEDICARE PART Apr 19, PART A [id number] 800 Whit [place] (WNR) (M) A 2007 50A [phone] JESSICA MEDICARE MEDICARE PART Apr 19, PART A [id number] Whit [place] (WNR) (M) A 2007 [id number] [phone] JESSICA Selected Encounter This section includes the information on record at [place] for the Encounter. Date/Time Encounter Type Encounter Description Reason Provider Source Aug 25, 2021 12:34 Outpatient Encounter TELEPHONE TRIAGE PM IHE Encounter Template Text not used by [place] Plan of Treatment: Future Appointments (+ 6 [...] 28, 2021 12:59 PM AMBULATORY - MEDICINE [facility] H CS Sep 04, 2021 07:33 PM AMBULATORY - MEDICINE [facility] Sep 06, 2021 01:30 PM AMBULATORY - NONE [facility] Sep 21, 2021 02:30 PM AMBULATORY - SURGERY [facility] S Sep 22, 2021 01:00 PM AMBULATORY - NONE [facility] Sep 28, 2021 07:00 AM AMBULATORY - NONE [facility] Sep 28, 2021 01:30 PM AMBULATORY - SURGERY [facility] S Oct 11, 2021 02:30 PM AMBULATORY - MEDICINE [facility] CS Oct 26, 2021 04:45 PM AMBULATORY - NONE [facility] Nov 02, 2021 04:30 PM AMBULATORY - NONE [facility] Nov 07, 2021 06:00 PM AMBULATORY - NONE [facility] Nov 09, 2021 03:30 PM AMBULATORY - MEDICINE [facility] CS Nov 29, 2021 01:30 PM AMBULATORY - MEDICINE [facility] CS Nov 29, 2021 02:30 PM AMBULATORY - MEDICINE [facility] Dec 07, 2021 04:45 PM AMBULATORY - NONE [facility] Dec 12, 2021 02:30 PM AMBULATORY - SURGERY [facility] S Dec 15, 2021 10:00 AM AMBULATORY - MEDICINE [facility] Dec 15, 2021 12:30 PM AMBULATORY - NONE [facility] Dec 15, 2021 12:45 PM AMBULATORY - NONE [facility] Dec 15, 2021 02:30 PM AMBULATORY - SURGERY [facility] S Lab Results: +/- 30 [...] Interpretation Reference Range Comment Jul 29, 2021 [facility] DRUG SCREEN PANEL,URINE Spec imen Type: URINE 01:18 PM Comment: Presum ptive Positive by screen, results not confirmed. Ordering Provid er: CARIDAD DENNIS Report Released Date/Time: Jul 29, 2021 01:06 PM Reporting Lab: [facility] [address] [facility] [address] Performing Lab: [facility] [address] [facility] [address] BARBITURATES Negative Negative AMPHETAMINES Negative Negative COCAINE Negative Negative BENZODIAZEPINES Negative Negative CANNABINOIDS Negative Negative METHADONE Negative Negative OPIATES Negative Negative PHENCYCLIDINE Negative Negative ETHANOL,URINE Negative Negative DRUG SCREEN CREAT 64.7 >20.0 OXYCODONE POSITIVE H Negative BUPRENORPHINE Negative Negative TRAMADOL Negative Negative FENTANYL Negative Negative Jul 29, 2021 12:30 PM [facility] HEMOGLOBIN A1C Specim en Type: BLOOD No comment enter ed. Ordering Provid er: CARIDAD DENNIS Report Released Date/Time: Feb 28, 2021 06:22 PM Reporting Lab: [facility] [address] [facility] [address] Performing Lab: [facility] [address] [facility] [address] HEMOGLOBIN A1C 7.0 H 4.0-6.0 Jul 29, 2021 12:30 PM [facility] AST/SGOT Specim en Type: PLASMA No comment enter ed. Ordering Provid er: CARIDAD DENNIS Report Released Date/Time: Feb 28, 2021 06:22 PM Reporting Lab: [facility] [address] [facility] [address] Performing Lab: [facility] [address] [facility] [address] AST/SGOT 13 <34 Jul 29, 2021 12:30 PM [facility] ALT/SGPT Specim en Type: PLASMA No comment enter ed. Ordering Provid er: CARIDAD DENNIS Report Released Date/Time: Feb 28, 2021 06:22 PM Reporting Lab: [facility] [address] [facility] [address] Performing Lab: [facility] [address] [facility] [address] ALT/SGPT 15 <55 Jul 29, 2021 12:30 PM [facility] CBC Specim en Type: BLOOD No comment enter ed. Ordering Provid er: CARIDAD DENNIS Report Released Date/Time: Feb 28, 2021 06:22 PM Reporting Lab: [facility] [address] [facility] [address] Performing Lab: [facility] [address] [facility] [address] WBC 6.29 4.0-11.0 RBC 4.82 4.6-6.2 HGB 13.3 L 13.5-17.9 HCT 42.4 41-54 MCV 88.0 80-100 MCH 27.6 27-33 MCHC 31.4 L 32.0-37.5 PLT 286 150-400 MPV 9.5 7.4-10.4 RDW 16.8 H 11.5-14.5 Jul 29, 2021 12:30 [facility] BASIC METABOLIC Specimen Type: PLASMA PM PANEL+MG No comment enter ed. Ordering Provid er: CARIDAD DENNIS Report Released Date/Time: Feb 28, 2021 06:22 PM Reporting Lab: [facility] [address] [facility] [address] Performing Lab: [facility] [address] [facility] [address] CREATININE 0.7 0.7-1.2 UREA NITROGEN 12 8-26 [...] 11:00 AM VA-TOBACCO NEVER USED [place] [facility] Tobacco Use History This section includes a history of the smoking, or tobacco- related health factors, that were collected on or before the date of the Encounter. The data comes from the [place] facility where the Encounter took place. Date/Time Smoking Status/Tobacco Use Comment [facility] jorge alberto July 09, 2020 02:00 PM VA-TOBACCO FORMER USER [place] [facility] July 09, 2020 02:00 PM VA-TOBACCO QUIT 15 YRS OR MORE [facility] Apr 17, 2019 02:39 PM INPT NO TOBACCO USE IN LAST 30 DAYS [facility] Feb 04, 2019 10:37 AM [place]-TO[place]CO [place] USED [place] [facility] Oct 15, 2018 02:43 PM INPT NO TOBACCO USE IN LAST 30 DAYS [facility] Oct 13, 2018 11:30 PM INPT NO TOBACCO USE IN LAST 30 DAYS [facility] Sep 02, 2018 05:50 PM INPT NO TOBACCO USE IN LAST 30 DAYS [facility] Aug 12, 2018 07:28 PM INPT NO TOBACCO USE IN LAST 30 DAYS [facility] Jan 30, 2018 03:28 PM VA-TOBACCO FORMER USER [facility] Jan 30, 2018 03:28 PM VA-TOBACCO QUIT 15 YRS OR MORE [facility] May 29, 2017 04:53 PM INPT NO TOBACCO USE IN LAST 30 DAYS [facility] Apr 25, 2017 10:44 PM INPT NO TOBACCO USE IN LAST 30 DAYS [facility] Jan 01, 2017 06:40 PM INPT NO TOBACCO USE IN LAST 30 DAYS [facility] Dec 21, 2016 02:43 PM FORMER TOBACCO USER 7Y OR GREATER [facility] Sep 24, 2013 08:52 AM FORMER TOBACCO USER 7Y OR GREATER [facility] Advance Directives: All historical and [...] May 16, 2017 ADVANCE DIRECTIVE SERENITY BUENROSTRO [facility] May 16, 2017 ADVANCE DIRECTIVE DISCUSSION [facility] May 04, 2017 CLINICAL WARNING MAGO DIAMOND [facility] May 04, 2017 CLINICAL WARNING GAEL ROSARIO [facility] Apr 26, 2017 CLINICAL WARNING JENNIFER DE LEON [facility] Jan 01, 2017 CLINICAL WARNING AYDE WELLS [facility] Jun 09, 2004 ADVANCE DIRECTIVE DARYL VILLARREAL [facility] Jun 07, 2004 ADVANCE DIRECTIVE SHERYL HOLLOWAY [facility] Encounter Notes: All associated encounter notes This section contains the clinical notes associated to the Encounter. Date/Time Encounter Note(s) Provider Source Aug 25, 2021 12:34 PM REPORT OF CONTACT: NBA BOONE [facility] LOCAL TITLE: PATIENT CONTACT NOTE STANDARD TITLE: REPORT OF CONTACT DATE OF NOTE: AUG 25, 2021@12:34 ENTRY DATE: AUG 25, 2021@12:35:49 AUTHOR: NBA BOONE COSIGNER: URGENCY: STATUS: COMPLETED PATIENT CONTACT NOTE Has ADDENDA Patient contact Name of [place]: JESSICA MOJICA Name/Relationship of Contact if other than Veter an: Date & Time of Contact: Aug@12:36 Type of Contact: Reason for Contact: Pt is requesting a call back from [facility] team . Pt states I just had surgery and i need a shoe for my foot. Pt can be contacted at number above. /vinicio/ NBA BOONE Advanced Medical Support Assistance Signed: 08/25/2021 12:37 Receipt Acknowledged By: 08/25/2021 15:52 /es/ SARAH KELLEY MD [employer] OFFICER for CARIDAD DENNIS 08/25/2021 13:07 /es/ FABY Pedroza director medicare sales 08/25/2021 ADDENDUM STATUS: COMPLETED spoke with . he will have his community c are provider fax directly to prosthetics the DME request. vet also has phone for [employer] and prosthtics.. /vinicio/ FABY Pedroza director medicare sales Signed: 08/25/2021 13:10
--- OUTSIDE RECORDS SUMMARY | 2021-12-23 18:56 | XMS_ITS | Encounter Summary ---
:1945 Author Organization [facility] Address [address] [place] [address] Support Name Relationship Address Phone FRANCES GANDARA Unavailable [address] [place] [address] FRANCES GANDARA Unavailable [address] [place] [address] FRANCES GANDARA Unavailable [address] [place] [address] FRANCES GANDARA Unavailable [address] [place] [address] Insurance Providers: All historical and current Section [...] MEDICARE MEDICARE PART Apr 19, PART A [id number] Whit MOJICA (WNR) (M) A 2007 50A [phone] JESSICA MEDICARE MEDICARE PART Apr 19, PART A [id number] 800 Whit MOJICA (WNR) (M) A 2007 [id number] [phone] JESSICA Selected Encounter This section includes the information on record at [place] for the Encounter. Date/Time Encounter Type Encounter Reason Provider Source Description Aug 28, 2021 HC PRO PHONE TELEPHONE TRIAGE ICD-10-CM Z71.89 REYMUNDO DANIELS 11:20 AM CALL 11-20 MIN Other specified A L counseling with Provider Comments: Other specified counseling IHE Encounter Template Text not used by [facility] Assessments - Encounter Diagnoses This section includes the primary and secondary diagnoses documented for the Encounter. Date/Time Primary/Secondary Diagnosis Name Provider Source Diagnosis Aug 28, 2021 PRIMARY Other specified CONNOR DANIELS S [place] 11:20 AM counseling Trey Graham [facility] Plan of Treatment: Future Appointments (+ 6 months) and Future Tests (+/- 45 days) The Plan of Treatment section includes future care activities for the patient from [facility] [place] [facility]. This section includes future appointments and future orders which are active, pending orscheduled.Future Appointments This section includes appointments that were scheduled to occur 6 months from the date of the Encounter, up to a maximum of 20 appointments. The data comes from all [place] treatment facilities. Appointment Date/Time Appointment Type Appointment Facili ty Name Sep 04, 2021 07:33 PM AMBULATORY - MEDICINE [facility] Sep 06, 2021 01:30 PM AMBULATORY - NONE [facility] Sep 21, 2021 02:30 PM AMBULATORY - SURGERY [facility] S Sep 22, 2021 01:00 PM AMBULATORY - NONE [facility] Sep 28, 2021 07:00 AM AMBULATORY - NONE [facility] Sep 28, 2021 01:30 PM AMBULATORY - SURGERY [facility] S Oct 11, 2021 02:30 PM AMBULATORY - MEDICINE [facility] Oct 26, 2021 04:45 PM AMBULATORY - NONE [facility] Nov 02, 2021 04:30 PM AMBULATORY - NONE [facility] Nov 07, 2021 06:00 PM AMBULATORY - NONE [facility] Nov 09, 2021 03:30 PM AMBULATORY - MEDICINE [facility] Nov 29, 2021 01:30 PM AMBULATORY - MEDICINE [facility] Nov 29, 2021 02:30 PM AMBULATORY - MEDICINE [facility] Dec 07, 2021 04:45 PM AMBULATORY - NONE [facility] Dec 12, 2021 02:30 PM AMBULATORY - SURGERY [facility] S Dec 15, 2021 10:00 AM AMBULATORY - MEDICINE [facility] Dec 15, 2021 12:30 PM AMBULATORY - NONE [facility] Dec 15, 2021 12:45 PM AMBULATORY - NONE [facility] Dec 15, 2021 02:30 PM AMBULATORY - SURGERY [facility] S Dec 20, 2021 02:00 PM AMBULATORY - NONE [facility] Vital Signs: All taken on the encounter date This section contains inpatient and outpatient Vital Signs collected on the date of the Encounter. Date/Time Temperature Pulse Blood Respiratory SP02 Pain Height Weight Joseph dy Source Pressure Rate Mass Index Aug 28, 97.9 F 75 145/85 16 /min 96 % 4 [place] 2021 01:02 /min mm[Hg] OLIS [facility] Social History: Smoking Status (Most current) [...] 11:00 AM [place]-TOBACCO NEVER USED [place] [facility] Tobacco Use History This section includes a history of the smoking, or tobacco- related health factors, that were collected on or before the date of the Encounter. The data comes from the [place] facility where the Encounter took place. Date/Time Smoking Status/Tobacco Use Comment [facility] July 09, 2020 02:00 PM [facility] July 09, 2020 02:00 PM VA-TOBACCO QUIT 15 YRS OR MORE [facility] Apr 17, 2019 02:39 PM INPT NO TOBACCO USE IN LAST 30 DAYS [facility] Feb 04, 2019 10:37 AM [place]-TOBACCO NEVER USED [place] [facility] Oct 15, 2018 02:43 PM INPT NO TOBACCO USE IN LAST 30 DAYS [facility] Oct 13, 2018 11:30 PM INPT NO TOBACCO USE IN LAST 30 DAYS [facility] Sep 02, 2018 05:50 PM INPT NO TOBACCO USE IN LAST 30 DAYS [facility] Aug 12, 2018 07:28 PM INPT NO TOBACCO USE IN LAST 30 DAYS [facility] Jan 30, 2018 03:28 PM [facility] Jan 30, 2018 03:28 PM VA-TOBACCO QUIT 15 YRS OR MORE [facility] May 29, 2017 04:53 PM INPT NO TOBACCO USE IN LAST 30 DAYS [facility] Apr 25, 2017 10:44 PM INPT NO TOBACCO USE IN LAST 30 DAYS [facility] Jan 01, 2017 06:40 PM INPT NO TOBACCO USE IN LAST 30 DAYS [facility] Dec 21, 2016 02:43 PM FORMER TOBACCO USER 7Y OR GREATER [facility] Sep 24, 2013 08:52 AM FORMER TOBACCO USER 7Y OR GREATER [facility] Advance Directives: All historical and current [...] Source May 29, 2017 CLINICAL WARNING FREITASCORNELIO MERARY S [facility] May 16, 2017 ADVANCE DIRECTIVE SERENITY BUENROSTRO [facility] May 16, 2017 ADVANCE DIRECTIVE DISCUSSION SERENITY BU[place]ROSTRO [place] [facility] May 04, 2017 CLINICAL WARNING MAGO DIAMOND [facility] May 04, 2017 CLINICAL WARNING GAEL ROSARIO [facility] Apr 26, 2017 CLINICAL WARNING MOISESJENNIFER Whit [facility] Jan 01, 2017 CLINICAL WARNING AYDE WELLS [facility] Jun 09, 2004 ADVANCE DIRECTIVE DARYL VILLARREAL [facility] Jun 07, 2004 ADVANCE DIRECTIVE SHERYL HOLLOWAY [facility] Encounter Notes: All associated encounter notes This section contains the clinical notes associated to the Encounter. Date/Time Encounter Note(s) Provider Source Aug 28, 2021 11:20 AM NURSING TELEPHONE ENCOUNTER NOTE: Georgina DANIELS [facility] LOCAL TITLE: TELEPHONE CARE NURSE TRIAGE STANDARD TITLE: NURSING TELEPHONE ENCOUNTER NOTE DATE OF NOTE: AUG 28, 2021@11:20:45 ENTRY DATE: AUG 28, 2021@11:40:45 AUTHOR: CASTRO DANIELS EXP COSIGNER: URGENCY: STATUS: COMPLETED Type of call: DTN SYMPTOM. PCMM Provider Info: LOCAL - [facility] ([phone] PACT: [facility] PACT [employer] (Focus: Primary Care On ly) Primary Care Provider: CARIDAD DENNIS NIKO:[id number] PAGER:[phone] Directional Drill Operator: RAINER ALLEN PHONE: Clinical Associate: SANYA CASE PH ONE:[phone] Contract Attorney: FITO IBRAHIM PHONE:[phone] PACT Clinical Pharmacist: ROSALIE DIXON PHONE:[phone] Clinical POC: Administrative POC: The following identifiers were used to verify th is patient: . SSN. The patient, JESSICA MOJICA ([id number]) Ph one: called the call center. Contact Caller Area: *[facility] Caller Response: ER- [facility] Comments: Thornwood reports he had his 3rd upper lef t molar removed on 08/23/2021, but 1 day after his molar was pulled, he started having he adaches. Thornwood reports he takes Tylenol, but after the Tylenol wears off t he headache returns. Thornwood uptriaged from 12-24 hours to 2-8 hours for a headache x 4 days. Advised on RN recommendation and [place]wood is agreeable to go to the [facility] ER in 2-8 hours. reports the [facility] ER is ~30 minutes away. RN advised to have someone drive him the re, and he plans to have his neighbor drive him there. encouraged to call his dentist tomorrow who pulled the tooth. re ports Dr. Webb pulled his tooth works outside the [place], and works at the [place]. request primary care please call for follow- up of symptoms on Sunday08/29/2021. Thank you. Phone Triage Sun Aug 28 2021 12:25:45 GMT-0400 ([facility] Time) Demographics 75 y/o Male Results CC: Headache Nurse Recommendation: 2-8 Hours TEDP Suggestion: 12-24 Hours Nurse Recommended Follow-up Location: [facility] department[facility] Suggested Follow-up Location: Clinic, [place], consider [facility] care Modifier: Symptom Duration Values and Measures Pain scale: 4 Duration of CC: 3 Days Positive Responses HPI: headache, duration longer than 6 hours HPI: nasal congestion, duration longer than 2 d ays HPI: pain, maxillary or frontal sinuses MEDS: insulin PMH: diabetes Negative Responses Denies: HPI: eye pain Denies: HPI: fever, subjective Denies: HPI: head injury, within past 10 days Denies: HPI: headache, moderate to severe Denies: HPI: headache, severe Denies: HPI: headache, worsening Denies: HPI: maxillary or frontal sinus pain, m oderate to severe Denies: HPI: maxillary or frontal sinus pain, s evere Denies: HPI: rhinorrhea, yellow or brown Denies: HPI: vomiting Denies: MEDS: antibiotic Denies: 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 Class Code: Other specified counseling. Verbalizes Understanding Patient/Caller agrees with plan. Imported Information: Clinical Contact/Call [place] Coronavirus Disease 2019 (COVID-19) Screen, jorge. 13, June 10, 2020 In the last 14 days have you had new onset of a [place] of the following symptoms: () Chills Comment: () Cough Comment: () Diarrhea Comment: () Fatigue Comment: () Fever Comment: () Headache Comment: () Loss of Taste or Smell Comment: () Muscle pain (Myalgias) Comment: () Nausea Comment: () Runny nose (Rhinorrhea) Comment: () Shortness of breath (Dyspnea) Comment: () Sore throat Comment: () Vomiting Comment: (x) No symptoms Within the last 14 days, have you had: () Close exposure (within 6 feet for more than 15 minutes) to someone with a febrile/respiratory illness Comment: () Close exposure (within 6 feet for more than 15 minutes) to someone with known or suspected case of COVID-19 Comment: (x) No known exposure Any symptom or exposure equal to positive scree n () Patient has a POSITIVE symptom or exposure a nd requires further evaluation Nurse/Provider/Other notified: (x) Screen is negative () Patient is waiting on COVID-19 test results. Comment: (x) Patient reports prior COVID-19 Diagnosis. C omment:12/20/2019. Evaluation/Management Code: PRO PHONE CALL 11 -20 MIN ([phone]). Starting at: 08/28/2021 @ 11:20:45 AM Ending at: 08/28/2021 @ 11:32:40 AM Length: 11 minutes. Author: CASTRO DANIELS Patient's Email Address: [email or web address] CASTRO DANIELS RN TELECARE NURSE Signed: 08/28/2021 11:40 Receipt Acknowledged By: * AWAITING SIGNATURE * CARIDAD DENNIS * AWAITING SIGNATURE * RAINER ALLEN
--- OUTSIDE RECORDS SUMMARY | 2021-12-23 18:57 | XMS_ITS | Encounter Summary ---
:1945 Author Organization [facility] Address [address] [place] [address] Support Name Relationship Address Phone FRANCES GANDARA Unavailable [address] [place] [address] FRANCES GANDARA Unavailable [address] [place] [address] FRANCES GANDARA Unavailable [address] [place] [address] FRANCES GANDARA Unavailable [address] [place] [address] Insurance Providers: All historical and current Section [...] MEDICARE MEDICARE PART Apr 19, PART A [id number] Whit MOJICA (WNR) (M) A 2007 50A [phone] JESSICA MEDICARE MEDICARE PART Apr 19, PART A [id number] 800 Whit MOJICA (WNR) (M) A 2007 [id number] [phone] JESSICA Selected Encounter This section includes the information on record at [place] for the Encounter. Date/Time Encounter Type Encounter Description Reason Provider Source Aug 23, 2021 12:00 Outpatient Encounter EVENT (HISTORICAL) AM E Encounter Template Text not used by [place] Plan of Treatment: Future Appointments (+ 6 [...] 04, 2021 07:33 PM AMBULATORY - [facility] Sep 06, 2021 01:30 PM AMBULATORY - NONE [facility] Sep 21, 2021 02:30 PM AMBULATORY - SURGERY [facility] Sep 22, 2021 01:00 PM AMBULATORY - NONE [facility] Sep 28, 2021 07:00 AM AMBULATORY - NONE [facility] Sep 28, 2021 01:30 PM AMBULATORY - SURGERY [facility] Oct 11, 2021 02:30 PM AMBULATORY - MEDICINE [facility] Oct 26, 2021 04:45 PM AMBULATORY - NONE [facility] Nov 02, 2021 04:30 PM AMBULATORY - NONE [facility] Nov 07, 2021 06:00 PM AMBULATORY - NONE [facility] Nov 09, 2021 03:30 PM AMBULATORY - MEDICINE [facility] Nov 29, 2021 01:30 PM AMBULATORY - MEDICINE [facility] Nov 29, 2021 02:30 PM AMBULATORY - MEDICINE [facility] Dec 07, 2021 04:45 PM AMBULATORY - NONE [facility] Dec 12, 2021 02:30 PM AMBULATORY - SURGERY [facility] S Dec 15, 2021 10:00 AM AMBULATORY - MEDICINE [facility] Dec 15, 2021 12:30 PM AMBULATORY - NONE [facility] Dec 15, 2021 12:45 PM AMBULATORY - NONE [facility] Dec 15, 2021 02:30 PM AMBULATORY - SURGERY [facility] Lab Results: +/- 30 [...] Interpretation Reference Range Comment Jul 29, 2021 [facility] DRUG SCREEN PANEL,URINE Spec imen Type: URINE 01:18 PM Comment: Presum ptive Positive by screen, results not confirmed. Ordering Provid er: CARIDAD DENNIS Report Released Date/Time: Jul 29, 2021 01:06 PM Reporting Lab: [facility] [address] [place] [facility] [id number] Performing Lab: [facility] [address] [place] [facility] [address] BARBITURATES Negative Negative AMPHETAMINES Negative Negative COCAINE Negative Negative BENZODIAZEPINES Negative Negative CANNABINOIDS Negative Negative METHADONE Negative Negative OPIATES Negative Negative PHENCYCLIDINE Negative Negative ETHANOL,URINE Negative Negative DRUG SCREEN CREAT 64.7 >20.0 OXYCODONE POSITIVE H Negative BUPRENORPHINE Negative Negative TRAMADOL Negative Negative FENTANYL Negative Negative Jul 29, 2021 12:30 PM [facility] HEMOGLOBIN A1C Specim en Type: BLOOD No comment enter ed. Ordering Provid er: CARIDAD DENNIS Report Released Date/Time: Feb 28, 2021 06:22 PM Reporting Lab: [facility] [address] [place] [facility] [address] Performing Lab: [facility] [address] [facility] [address] HEMOGLOBIN A1C 7.0 H 4.0-6.0 Jul 29, 2021 12:30 PM [facility] AST/SGOT Specim en Type: PLASMA No comment enter ed. Ordering Provid er: CARIDAD DENNIS Report Released Date/Time: Feb 28, 2021 06:22 PM Reporting Lab: [facility] [address] [place] [facility] [address] Performing Lab: [facility] [address] [place] [facility] [address] AST/SGOT 13 <34 Jul 29, 2021 12:30 PM [facility] ALT/SGPT Specim en Type: PLASMA No comment enter ed. Ordering Provid er: CARIDAD DENNIS Report Released Date/Time: Feb 28, 2021 06:22 PM Reporting Lab: [facility] [address] [place] [facility] [address] Performing Lab: [facility] [address] [place] [facility] [address] ALT/SGPT 15 <55 Jul 29, 2021 12:30 PM [facility] CBC Specim en Type: BLOOD No comment enter ed. Ordering Provid er: CARIDAD DENNIS Report Released Date/Time: Feb 28, 2021 06:22 PM Reporting Lab: [facility] [address] [place] [facility] [address] Performing Lab: [facility] [address] [place] [facility] [address] WBC 6.29 4.0-11.0 RBC 4.82 4.6-6.2 HGB 13.3 L 13.5-17.9 HCT 42.4 41-54 MCV 88.0 80-100 MCH 27.6 27-33 MCHC 31.4 L 32.0-37.5 PLT 286 150-400 MPV 9.5 7.4-10.4 RDW 16.8 H 11.5-14.5 Jul 29, 2021 12:30 [facility] BASIC METABOLIC Specimen Type: PLASMA PM PANEL+MG No comment enter ed. Ordering Provid er: CARIDAD DENNIS Report Released Date/Time: Feb 28, 2021 06:22 PM Reporting Lab: [facility] [address] [facility] [address] Performing Lab: [facility] [address] CREATININE 0.7 0.7-1.2 UREA NITROGEN 12 8-26 [...] 25, 2021 11:00 AM [place] NEVER USED [place] [facility] Tobacco Use History This section includes a history of the smoking, or tobacco- related health factors, that were collected on or before the date of the Encounter. The data comes from the [place] facility where the Encounter took place. Date/Time Smoking Status/Tobacco Use Comment [place] July 09, 2020 02:00 PM VA-TOBACCO FORMER USER [place] [facility] July 09, 2020 02:00 PM VA-TOBACCO QUIT 15 YRS OR MORE [facility] Apr 17, 2019 02:39 PM INPT NO TOBACCO USE IN LAST 30 DAYS [facility] Feb 04, 2019 10:37 AM [place] NEVER USED [place] [facility] Oct 15, 2018 02:43 PM INPT NO TOBACCO USE IN LAST 30 DAYS [facility] Oct 13, 2018 11:30 PM INPT NO TOBACCO USE IN LAST 30 DAYS [facility] Sep 02, 2018 05:50 PM INPT NO TOBACCO USE IN LAST 30 DAYS [facility] Aug 12, 2018 07:28 PM INPT NO TOBACCO USE IN LAST 30 DAYS [facility] Jan 30, 2018 03:28 PM VA-TOBACCO FORMER USER [facility] Jan 30, 2018 03:28 PM VA-TOBACCO QUIT 15 YRS OR MORE [facility] May 29, 2017 04:53 PM INPT NO TOBACCO USE IN LAST 30 DAYS [facility] Apr 25, 2017 10:44 PM INPT NO TOBACCO USE IN LAST 30 DAYS [facility] Jan 01, 2017 06:40 PM INPT NO TOBACCO USE IN LAST 30 DAYS [facility] Dec 21, 2016 02:43 PM FORMER TOBACCO USER 7Y OR GREATER [facility] Sep 24, 2013 08:52 AM FORMER TOBACCO USER 7Y OR GREATER [facility] Advance Directives: All historical and [...] INC. May 16, 2017 ADVANCE DIRECTIVE SERENITY BUENRSOTRO [facility] May 16, 2017 ADVANCE DIRECTIVE DISCUSSION SERENITY BUENROSTRO [place] [facility] May 04, 2017 CLINICAL WARNING MAGO DIAMOND [facility] May 04, 2017 CLINICAL WARNING GAEL ROSARIO [facility] Apr 26, 2017 CLINICAL WARNING JENNIFER DE LEON [facility] Jan 01, 2017 CLINICAL WARNING AYDE WELLS [facility] Jun 09, 2004 ADVANCE DIRECTIVE DARYL VILLARREAL [facility] Jun 07, 2004 ADVANCE DIRECTIVE SHERYL HOLLOWAY [facility]
--- OUTSIDE RECORDS SUMMARY | 2021-12-23 19:01 | XMS_ITS | Encounter Summary ---
:1945 Author Organization [facility] Address [address] [place] [id number] Support Name Relationship Address Phone FRANCES GANDARA Unavailable [address] [place] [address] FRANCES GANDARA Unavailable [address] [place] [address] FRANCES GANDARA Unavailable [address] [place] [address] FARNCES GANDARA Unavailable [address] [place] [address] Insurance Providers: All historical and current Section [...] MEDICARE MEDICARE PART Apr 19, PART A [id number] Whit [place] (WNR) (M) A 2007 50A [phone] JESSICA MEDICARE MEDICARE PART Apr 19, PART A [id number] Whit [place] (WNR) (M) A 2007 [id number] [phone] JESSICA Selected Encounter This section includes the information on record at [place] for the Encounter. Date/Time Encounter Type Encounter Description Reason Provider Source Aug 29, 2021 03:11 Outpatient Encounter COMMUNITY CARE PM CONSULT IHE [...] 04, 2021 07:33 PM AMBULATORY - MEDICINE [facility] H CS Sep 06, 2021 01:30 PM AMBULATORY - NONE [facility] Sep 21, 2021 02:30 PM AMBULATORY - SURGERY [facility] S Sep 22, 2021 01:00 PM AMBULATORY - NONE [facility] Sep 28, 2021 07:00 AM AMBULATORY - NONE [facility] Sep 28, 2021 01:30 PM AMBULATORY - SURGERY [facility] S Oct 11, 2021 02:30 PM AMBULATORY - MEDICINE [facility] Oct 26, 2021 04:45 PM AMBULATORY - NONE [facility] Nov 02, 2021 04:30 PM AMBULATORY - NONE [facility] Nov 07, 2021 06:00 PM AMBULATORY - NONE [facility] Nov 09, 2021 03:30 PM AMBULATORY - MEDICINE [facility] Nov 29, 2021 01:30 PM AMBULATORY - MEDICINE [facility] Nov 29, 2021 02:30 PM AMBULATORY - MEDICINE [facility] Dec 07, 2021 04:45 PM AMBULATORY - NONE [facility] Dec 12, 2021 02:30 PM AMBULATORY - SURGERY [facility] S Dec 15, 2021 10:00 AM AMBULATORY - MEDICINE [facility] Dec 15, 2021 12:30 PM AMBULATORY - NONE [facility] Dec 15, 2021 12:45 PM AMBULATORY - NONE [facility] Dec 15, 2021 02:30 PM AMBULATORY - SURGERY [facility] S Dec 20, 2021 02:00 PM AMBULATORY - NONE [facility] Social History: Smoking Status (Most current) and Tobacco Use (All prior to encounter date) This section includes the most current, and the historical, smoking and tobacco-related health factors from the [facility] facility where the Encounter took place.Current Smoking Status This section includes the most current smoking, or tobacco-related health factor, from the [place] facility where the Encounter took place. Date/Time Current Smoking Status [facility] Apr 25, 2021 11:00 AM VA-TOBACCO NEVER USED [facility] Tobacco Use History This section includes a history of the smoking, or tobacco- related health factors, that were collected on or before the date of the Encounter. The data comes from the [place] facility where the Encounter took place. Date/Time Smoking Status/Tobacco Use Comment Facil ity July 09, 2020 02:00 PM VA-TOBACCO [facility]ER [facility] July 09, 2020 02:00 PM VA-TOBACCO QUIT 15 YRS OR MORE [facility] Apr 17, 2019 02:39 PM INPT NO TOBACCO USE IN LAST 30 DAYS [facility] Feb 04, 2019 10:37 AM VA-TOBACCO [place] USED [place] [facility] Oct 15, 2018 [...] 2018 03:28 PM VA-TOBACCO FORMER USER [facility] Jan 30, 2018 03:28 [...] document. The data comes from all [facility]. Date Advance Directives Provider Source May 29, 2017 CLINICAL WARNING CORNELIO FREITAS [facility] May 16, 2017 ADVANCE DIRECTIVE SERENITY BUENROSTRO [facility] May 16, 2017 ADVANCE DIRECTIVE DISCUSSION [place] [facility] May 04, 2017 CLINICAL WARNING MAGO DIAMOND [facility] May 04, 2017 CLINICAL WARNING GAEL ROSARIO [facility] Apr 26, 2017 CLINICAL WARNING JENNIFER DE LEON [facility] Jan 01, 2017 CLINICAL WARNING AYDE WELLS [facility] Jun 09, 2004 ADVANCE DIRECTIVE DARYL VILLARREAL [facility] Jun 07, 2004 ADVANCE DIRECTIVE HOLLOWAYSHERYL ANN [facility] Encounter Notes: All associated encounter notes This section contains the clinical notes associated to the Encounter. Date/Time Encounter Note(s) Provider Source Aug 29, 2021 03:11 PM NONVA NOTE: LUIS PARIKH [facility] LOCAL TITLE: COMMUNITY CARE-CARE COORDINATION P [place]IL[place] NOTE STANDARD TITLE: NONVA NOTE DATE OF NOTE: AUG 29, 2021@15:11 ENTRY DATE: AUG 29, 2021@15:11:43 AUTHOR: LUIS PARIKH EXP COSIGNER: URGENCY: STATUS: COMPLETED COMMUNITY CARE-CARE COORDINATION PLAN NOTE Has ADDENDA Alna called the Community Care Call Line requesting a Community Care consult for COMMUNITY CARE-DENTAL GE N SERV for implants. was informed that there is no existing authorization in place for this c are. Respectfully, alerting Dental [facility], Cornelio Ragland and Dr. Samano fo r review of this request and eligibility determination. /es/ LUIS PARIKH AMSA Signed: 08/29/2021 15:12 Receipt Acknowledged By: 08/30/2021 07:25 /es/ YASMIN SAMANO DDS CHIEF OF DENTAL 08/30/2021 10:06 /vinicio/ Jorje Ragland AMSA 08/30/2021 ADDENDUM STATUS: COMPLETED This Alna has previously been denied implants due to medical reasons and his [facility] General Dentist has been informed. /vinicio/ Jorje Ragland AMSA Signed: 08/30/2021 10:07 Receipt Acknowledged By: 08/30/2021 10:38 /es/ LUIS PARIKH [facility] 08/30/2021 ADDENDUM STATUS: COMPLETED Please note that in 2020 his A1c was 9.5 His A1c is now 7. Patient is requesting re-rev iew of his request due to improvement in A1c and has been asking [facility] to pass on his message to [place] dental thanks /es/ Giselle Martinez MD Staff Physician Signed: 08/30/2021 13:27 Receipt Acknowledged By: 08/30/2021 13:47 /es/ YASMIN SAMANO DDS CHIEF OF DENTAL * AWAITING SIGNATURE * RAINER ALLEN Teodora 08/30/2021 13:35 /es/ Jorje GRIMM 08/30/2021 ADDENDUM STATUS: COMPLETED Alna currently has a consult being processed for caries control and dental restorations. It is accepted practice to complet e these restorations PRIOR to implant placement. While the A1c level i s currently acceptable, it needs to be maintained and the h as other reasons for the temporary denial of implant placement. This will be reconsidered after kenia rations completed. /vinicio/ YASMIN SAMANO DDS CHIEF OF DENTAL Signed: 08/30/2021 13:50
--- OUTSIDE RECORDS SUMMARY | 2021-12-23 19:02 | XMS_ITS | Encounter Summary ---
:1945 Author Organization [facility] Address [address] [place] [address] Support Name Relationship Address Phone FRANCES GANDARA Unavailable [address] [place] [address] FRANCES GANDARA Unavailable [address] [place] [address] FRANCES GANDARA Unavailable [address] [place] [address] FRANCES GANDARA Unavailable [address] [place] [address] Insurance Providers: All historical and current Section [...] MEDICARE MEDICARE PART Apr 19, PART A [id number] 800 Whit [place] (WNR) (M) A 2007 50A [phone] JESSICA MEDICARE MEDICARE PART Apr 19, PART A [id number] 800 Whit [place] (WNR) (M) A 2007 [id number] [phone] JESSICA Selected Encounter This section includes the information on record at [place] for the Encounter. Date/Time Encounter Type Encounter Reason Provider Source Description Aug 29, 2021 HC PRO PHONE TELEPHONE TRIAGE ICD-10-CM Z71.89 FEDERICO MCGUIRE 07:29 PM CALL 5-10 MIN Other specified A A counseling with Provider Comments: Other specified counseling IHE Encounter Template Text not used by VA Assessments - Encounter Diagnoses This section includes the primary and secondary diagnoses documented for the Encounter. Date/Time Primary/Secondary Diagnosis Name Provider Source Diagnosis Aug 29, 2021 PRIMARY Other specified YOUSUF MCGUIRE [place] 07:29 PM counseling A [facility] Plan of Treatment: Future Appointments (+ 6 months) and Future Tests (+/- 45 days) The Plan of Treatment section includes future care activities for the patient [facility] This section includes future appointments and future orders which are active, pending orscheduled.Future Appointments This section includes appointments that were scheduled to occur 6 months from the date of the Encounter, up to a maximum of 20 appointments. The data comes from all [place] treatment facilities. Appointment Date/Time Appointment Type Appointment Facili ty Name Sep 04, 2021 07:33 PM AMBULATORY - MEDICINE [facility] Sep 06, 2021 01:30 PM AMBULATORY - NONE [facility] Sep 21, 2021 02:30 PM AMBULATORY - SURGERY [facility] Sep 22, 2021 01:00 PM AMBULATORY - NONE [facility] Sep 28, 2021 07:00 AM AMBULATORY - NONE [facility] Sep 28, 2021 01:30 PM AMBULATORY - SURGERY [facility] Oct 11, 2021 02:30 PM AMBULATORY - MEDICINE [facility] Oct 26, 2021 04:45 PM AMBULATORY - NONE [facility] Nov 02, 2021 04:30 PM AMBULATORY - NONE [facility] Nov 07, 2021 06:00 PM AMBULATORY - NONE [facility] Nov 09, 2021 03:30 PM AMBULATORY - MEDICINE [facility] Nov 29, 2021 01:30 PM AMBULATORY - MEDICINE [facility] Nov 29, 2021 02:30 PM AMBULATORY - MEDICINE [facility] Dec 07, 2021 04:45 PM AMBULATORY - NONE [facility] Dec 12, 2021 02:30 PM AMBULATORY - SURGERY [facility] Dec 15, 2021 10:00 AM AMBULATORY - MEDICINE [facility] Dec 15, 2021 12:30 PM AMBULATORY - NONE [facility] Dec 15, 2021 12:45 PM AMBULATORY - NONE [facility] Dec 15, 2021 02:30 PM AMBULATORY - SURGERY [facility] Dec 20, 2021 02:00 PM AMBULATORY - NONE [facility] Social History: Smoking Status (Most current) and Tobacco Use (All prior to encounter date) This section includes the most current, and the historical, smoking and tobacco-related health factors from the [place] facility where the Encounter took place.Current Smoking Status This section includes the most current smoking, or tobacco-related health factor, from the [facility] where the Encounter took place. Date/Time Current Smoking Status Comment Facility Apr 25, 2021 11:00 AM [place]-TOBACCO NEVER USED [place] [facility] Tobacco Use History This section includes a history of the smoking, or tobacco- related health factors, that were collected on or before the date of the Encounter. The data comes from the [facility] where the Encounter took place. Date/Time Smoking Status/Tobacco Use Comment [facility] July 09, 2020 02:00 PM VA-TOBACCO FORMER USER [place] [facility] July 09, 2020 02:00 PM VA-TOBACCO QUIT 15 YRS OR MORE [facility] Apr 17, 2019 02:39 PM INPT NO TOBACCO USE IN LAST 30 DAYS [facility] Feb 04, 2019 10:37 AM MS-TOBACCO NEVER USED [place] [facility] Oct 15, 2018 02:43 PM INPT NO TOBACCO USE IN LAST 30 DAYS [facility] Oct 13, 2018 11:30 PM INPT NO TOBACCO USE IN LAST 30 DAYS [facility] Sep 02, 2018 05:50 PM INPT NO TOBACCO USE IN LAST 30 DAYS [facility] Aug 12, 2018 07:28 PM INPT NO TOBACCO USE IN LAST 30 DAYS [facility] Jan 30, 2018 03:28 PM VA-TOBACCO FORMER USER [place] [facility] Jan 30, 2018 03:28 PM MS-TOBACCO QUIT 15 YRS OR MORE [facility] May 29, 2017 04:53 PM INPT NO TOBACCO USE IN LAST 30 DAYS [facility] Apr 25, 2017 10:44 PM INPT NO TOBACCO USE IN LAST 30 DAYS [facility] Jan 01, 2017 06:40 PM INPT NO TOBACCO USE IN LAST 30 DAYS [facility] Dec 21, 2016 02:43 PM FORMER TOBACCO USER 7Y OR GREATER [facility] Sep 24, 2013 08:52 AM FORMER TOBACCO USER 7Y OR GREATER [facility] Advance Directives: All historical [...] May 29, 2017 CLINICAL WARNING CORNELIO FREITAS [facility] May 16, 2017 ADVANCE DIRECTIVE SERENITY BUENROSTRO [facility] May 16, 2017 ADVANCE DIRECTIVE DISCUSSION [place]O [place] [facility] May 04, 2017 CLINICAL WARNING MAGO DIAMOND [facility] May 04, 2017 CLINICAL WARNING GAEL ROSARIO [facility] Apr 26, 2017 CLINICAL WARNING JENNIFER DE LEON [facility] Jan 01, 2017 CLINICAL WARNING AYDE WELLS [facility] Jun 09, 2004 ADVANCE DIRECTIVE DARYL VILLARREAL [facility] Jun 07, 2004 ADVANCE DIRECTIVE AMIESHERYL ANN [facility] Encounter Notes: All associated encounter notes This section contains the clinical notes associated to the Encounter. Date/Time Encounter Note(s) Provider Source Aug 29, 2021 07:29 PM NURSING TELEPHONE ENCOUNTER NOTE: Erica MCGUIRE [facility] LOCAL TITLE: TELEPHONE CARE NURSE TRIAGE STANDARD TITLE: NURSING TELEPHONE ENCOUNTER NOTE DATE OF NOTE: AUG 29, 2021@19:29:59 ENTRY DATE: AUG 29, 2021@19:44:26 AUTHOR: KENTON MCGUIRE EXP COSIGNER: URGENCY: STATUS: COMPLETED TELEPHONE CARE NURSE TRIAGE Has ADDENDA Type of call: DTN SYMPTOM. PCMM Provider Info: LOCAL - [facility] ([id number]) PACT: [facility] PACT [place] (Focus: Primary Care On ly) Primary Care Provider: CARIDAD DENNIS NIKO:[id number] PAGER:[phone] Asparagus Buncher: RAINER ALLEN PHONE: Clinical Associate: SANYA CASE PH ONE:[phone] Fitter And Turner: FITO IBRAHIM PHONE:[phone] PACT Clinical Pharmacist: ROSALIE DIXON PHONE:[phone] Clinical POC: Administrative POC: The following identifiers were used to verify th is patient: . SSN. The patient, JESSICA MOJICA ([id number]) Ph one: called the call center. Contact Caller Area: *[facility] Caller Response: HOME CARE Comments: was seen at an urgent care for a headache. He states they didn't have a light and used my phone to look in my mouth. I was started on an antibiotic. Today I noticed my left cheek is swelling. Shoul d I continue to take the antibiotics or increase them. triaged and given the recommendation of self care at home and to continue taking the Rx dose ordered per day. Vivek deutsch advised to call back to triage line with any new concerning symptoms. is requesting a call back to discuss the antibiotic use. Thank you Phone Triage SunAug 29 2021 20:31:01 GMT-0400 ([facility] Time) Demographics 75 y/o Male Results CC: Tooth Pain Nurse Recommendation: Self-care TEDP Suggestion: Self-care Nurse Recommended Follow-up Location: Home TEDP Suggested Follow-up Location: Home, [facility] care Values and Measures Pain scale: 5 Duration of CC: 3 Hours Positive Responses PMH: heart attack PMH: heart disease Negative Responses Denies: HPI: chest pain, radiates to jaw or tyree th Denies: HPI: dental pain, post dental injury Denies: HPI: dental pain, triggered by chewing Denies: HPI: dental pain, with percussion Denies: HPI: dental sensitivity, cold Denies: HPI: dental sensitivity, sweets Denies: HPI: facial pain, severe, triggered by touch Denies: HPI: facial pain, severe, unilateral, c omes in brief episodes Denies: HPI: facial swelling, facial tenderness , overlying painful tooth Denies: HPI: gingival bleeding Denies: HPI: gingival erythema Denies: HPI: gingival pain Denies: HPI: gingival swelling Denies: HPI: jaw pain, episodic, with diaphores is Denies: HPI: jaw pain, episodic, with nausea Denies: HPI: jaw pain, exertional Denies: HPI: jaw pain, preauricular Denies: HPI: jaw pain, with severe weakness Denies: HPI: jaw pain, with syncope Denies: HPI: swelling or tenderness, gingival Denies: HPI: symptoms similar to past heart att ack Denies: PMH: angina Chief Complaint: Not applicable to call. Class Code: Other specified counseling. Verbalizes Understanding Patient/Caller agrees with plan. Evaluation/Management Code: HC PRO PHONE CALL 5- 10 MIN ([phone]). Starting at: 08/29/2021 @ 7:29:59 PM Ending at: 08/29/2021 @ 7:40:10 PM Length: 10 minutes. Author: KENTON MCGUIRE Patient's Email Address: [email or web address] /vinicio/ KENTON KAYE, RN Signed: 08/29/2021 19:44 Receipt Acknowledged By: * AWAITING SIGNATURE * CARIDAD DENNIS 08/30/2021 09:28 /vinicio/ VARGAS HAGER, RN REGISTERED NURSE for RAINER ALLEN 08/30/2021 ADDENDUM STATUS: COMPLETED Pt states he is feeling better today. He states he had a tooth extracted and then had pain the next day, so he was put on ABX for an infection. He denies any allergic sx today. He will call with questions o r concerns. /vinicio/ VARGAS HAGER, RN REGISTERED NURSE Signed: 08/30/2021 09:30
--- OUTSIDE RECORDS SUMMARY | 2021-12-23 19:04 | XMS_ITS | Encounter Summary ---
:1945 Author Organization [facility] Address [address] [place] [id number] Support Name Relationship Address Phone FRANCES GANDARA Unavailable [address] [place] [address] FRANCES GANDARA Unavailable [address] [place] [address] FRANCES AGNDARA Unavailable [address] [place] [address] FRANCES GANDARA Unavailable [address] [place] [address] Insurance Providers: All historical and current Section [...] MEDICARE MEDICARE PART Apr 19, PART A [id number] Whit [place] (WNR) (M) A 2007 50A [phone] JESSICA MEDICARE MEDICARE PART Apr 19, PART A [id number] Whit [place] (WNR) (M) A 2007 [id number] [phone] JESSICA Selected Encounter This section includes the information on record at [place] for the Encounter. Date/Time Encounter Type Encounter Reason Provider Source Description Sep 04, 2021 HC PRO PHONE TELEPHONE TRIAGE ICD-10-CM Z71.89 SEEMA ARITA 06:07 PM CALL 11-20 MIN Other specified M counseling with Provider Comments: Other specified counseling IHE Encounter Template Text not used by [facility] Assessments - Encounter Diagnoses This section includes the primary and secondary diagnoses documented for the Encounter. Date/Time Primary/Secondary Diagnosis Name Provider Source Diagnosis Sep 04, 2021 PRIMARY Other specified DUC ARITA [place] 06:07 PM counseling [facility] Plan of Treatment: Future Appointments (+ 6 months) and Future Tests (+/- 45 days) The Plan of Treatment section includes future care activities for the patient [facility] This section includes future appointments and future orders which are active, pending orscheduled.Future Appointments This section includes appointments that were scheduled to occur 6 months from the date of the Encounter, up to a maximum of 20 appointments. The data comes from all [place] treatment facilities. Appointment Date/Time Appointment Type Appointment Facili ty Name Sep 06, 2021 01:30 PM AMBULATORY - NONE [facility] Sep 21, 2021 02:30 PM AMBULATORY - SURGERY [facility] Sep 22, 2021 01:00 PM AMBULATORY - NONE [facility] Sep 28, 2021 07:00 AM AMBULATORY - NONE [facility] Sep 28, 2021 01:30 PM AMBULATORY - SURGERY [facility] Oct 11, 2021 02:30 PM AMBULATORY - MEDICINE [facility] Oct 26, 2021 04:45 PM AMBULATORY - NONE [facility] Nov 02, 2021 04:30 PM AMBULATORY - NONE [facility] Nov 07, 2021 06:00 PM AMBULATORY - NONE [facility] Nov 09, 2021 03:30 PM AMBULATORY - MEDICINE [facility] Nov 29, 2021 01:30 PM AMBULATORY - MEDICINE [facility] Nov 29, 2021 02:30 PM AMBULATORY - MEDICINE [facility] Dec 07, 2021 04:45 PM AMBULATORY - NONE [facility] Dec 12, 2021 02:30 PM AMBULATORY - SURGERY [facility] Dec 15, 2021 10:00 AM AMBULATORY - MEDICINE [facility] Dec 15, 2021 12:30 PM AMBULATORY - NONE [facility] Dec 15, 2021 12:45 PM AMBULATORY - NONE [facility] Dec 15, 2021 02:30 PM AMBULATORY - SURGERY [facility] Dec 20, 2021 02:00 PM AMBULATORY - NONE [facility] Dec 22, 2021 03:30 AM AMBULATORY - NONE [facility] Vital Signs: All taken on the encounter date This section contains inpatient and outpatient Vital Signs collected on the date of the Encounter. Date/Time Temperature Pulse Blood Respiratory SP02 Pain Height Weight Joseph dy Source Pressure Rate Mass Index Sep 04.2 F [place] 2021 07:34 [facility] Sep 04 161/75 16 /min 96 % 8 [place] 2021 07:34 /min mm[Hg] [facility] Social History: Smoking Status (Most current) and Tobacco Use (All prior to encounter date) This section includes the most current, and the historical, smoking and tobacco-related health factors from the [place] facility where the Encounter took place.Current Smoking Status This section includes the most current smoking, or tobacco-related health factor, from the [place] facility where the Encounter took place. Date/Time Current Smoking Status Comment Facility Apr 25, 2021 11:00 AM VA-TOBACCO NEVER USED [place] [facility] Tobacco Use History This section includes a history of the smoking, or tobacco- related health factors, that were collected on or before the date of the Encounter. The data comes from the [place] facility where the Encounter took place. Date/Time Smoking Status/Tobacco Use Comment [facility] July 09, 2020 02:00 PM VA-TOBACCO FORMER USER [place] [facility] July 09, 2020 02:00 PM VA-TOBACCO QUIT 15 YRS OR MORE [facility] Apr 17, 2019 02:39 PM INPT NO TOBACCO USE IN LAST 30 DAYS [facility] Feb 04, 2019 10:37 AM [place]-TOBACCO NEVER USED [place] [facility] Oct 15, 2018 02:43 PM INPT NO TOBACCO USE IN LAST 30 DAYS [facility] Oct 13, 2018 11:30 PM INPT NO TOBACCO USE IN LAST 30 DAYS [facility] Sep 02, 2018 05:50 PM INPT NO TOBACCO USE IN LAST 30 DAYS [facility] Aug 12, 2018 07:28 PM INPT NO TOBACCO USE IN LAST 30 DAYS [facility] Jan 30, 2018 03:28 PM VA-TOBACCO FORMER USER [place] [facility] Jan 30, 2018 03:28 PM VA-TOBACCO QUIT 15 YRS OR MORE [facility] May 29, 2017 04:53 PM INPT NO TOBACCO USE IN LAST 30 DAYS [facility] Apr 25, 2017 10:44 PM INPT NO TOBACCO USE IN LAST 30 DAYS [facility] Jan 01, 2017 06:40 PM INPT NO TOBACCO USE IN LAST 30 DAYS [facility] Dec 21, 2016 02:43 PM FORMER TOBACCO USER 7Y OR GREATER [facility] Sep 24, 2013 08:52 AM FORMER TOBACCO USER 7Y OR GREATER [facility] Advance Directives: All historical and current Section Date Range: From patient's date of to the date document was created. This section includes ALL of a patient's completed or amended [place] Advance and Rescinded Directives. The entries below indicate that a directive exists for the patient, but an actual copy is not included with this document. The data comes from all [place] facilities. Date Advance Directives Provider Source May 29, 2017 CLINICAL WARNING CORNELIO FREITAS PIERREI S [facility] May 16, 2017 ADVANCE DIRECTIVE SERENITY BUENROSTRO [facility] May 16, 2017 ADVANCE DIRECTIVE DISCUSSION [place] [facility] May 04, 2017 CLINICAL WARNING MAGO DIAMOND Shashank [facility] May 04, 2017 CLINICAL WARNING GILLIAN ROSARIOZIN [facility] Apr 26, 2017 CLINICAL WARNING MOISESJENNIFER P [facility] Jan 01, 2017 CLINICAL WARNING WELLSAYDE HAGEN Jarrod [facility] Jun 09, 2004 ADVANCE DIRECTIVE DARYL VILLARREAL [facility] Jun 07, 2004 ADVANCE DIRECTIVE SHERYL HOLLOWAY [facility] Encounter Notes: All associated encounter notes This section contains the clinical notes associated to the Encounter. Date/Time Encounter Note(s) Provider Source Sep 04, 2021 06:07 PM NURSING TELEPHONE ENCOUNTER NOTE: [place] ARITA [facility] LOCAL TITLE: TELEPHONE CARE NURSE TRIAGE STANDARD TITLE: NURSING TELEPHONE ENCOUNTER NOTE DATE OF NOTE: SEP 04, 2021@18:07:05 ENTRY DATE: SEP 04, 2021@18:27:25 AUTHOR: DUC ARITA EXP COSIGNER: URGENCY: STATUS: COMPLETED Type of call: DTN SYMPTOM. PCMM Provider Info: LOCAL - [facility] ([phone] PACT: [facility] PACT [employer] (Focus: Primary Care On ly) Primary Care Provider: CARIDAD DENNIS NIKO:[id number] PAGER:[phone] Corporate Compliance Manager: RAINER ALLEN PHONE:[phone] Clinical Associate: SANYA CASE PH ONE:[phone] Commercial Account Manager: FITO IBRAHIM PHONE:[phone] PACT Clinical Pharmacist: ROSALIE DIXON PHONE:[phone] Clinical POC: Administrative POC: The following identifiers were used to verify th is patient: . SSN. The patient, JESSICA MOJCIA ([id number]) Ph one: called the call center. Contact Caller Area: *[facility] Caller Response: ER- [facility] Comments: is calling on 08/23/2021 had zee alvarado removed his third molar on the left upper side. He has new disco mfort from ear to neck on the left side. He is able to swallow not have difficul ty breathing, He reports is on antibiotics and this is not his first round. He has been taki ng a white pill not sure of which one. The nurse threw the container away so he is not sure what it is. The has developed worsening symptoms with the cheek pain. 08/28 amocixillin/clav twice daily for 10 days. Nursing triage assessment co mpleted using the tooth pain tool recommendation is for the to be seen in the next 1 2-24 hours was uptriaged to be seen at the [facility] ED due to him having been on antibiotics for 7 days now and is developing new sy mptoms in the area and his initial symptoms are not better by his report. Branch plans to go to the [place] ED now in [place]. Branch was instructed to co ntact his dentist that removed the tooth as soon as they open after he is discharged from the ED. Thank you. Phone Triage Sun Sep 04 2021 19:12:39 GMT-0400 ([facility] Time) Demographics 75 y/o Male Results CC: Toothache Nurse Recommendation: 12-24 Hours TEDP Suggestion: 12-24 Hours Nurse Recommended Follow-up Location: Emergency department, [place] TEDP Suggested Follow-up Location: Dentist offi ce Modifier: Weekend/Holiday Values and Measures Pain scale: 8 Duration of CC: 12 Days Positive Responses HPI: dental pain, triggered by chewing HPI: gingival swelling, gingival tenderness, pe riodontal MEDS: insulin PMH: diabetes Negative Responses Denies: HPI: dental pain, post dental injury Denies: HPI: facial swelling, facial tenderness , overlying painful tooth Denies: HPI: facial swelling, worsening Denies: HPI: gingival swelling and erythema perri und painful tooth Denies: HPI: neck pain, neck swelling Denies: HPI: tongue pain, tongue swelling Denies: HPI: vomiting Chief Complaint: Not applicable to call. Class Code: Other specified counseling. Verbalizes Understanding Patient/Caller agrees with plan. Imported Information: Clinical Contact/Call Ira Coronavirus Disease 2019 (COVID-19) Screen, [email or web address]. , June 10, 2020 In the last 14 [...] (x) Patient reports prior COVID-19 Diagnosis. C omment:12/20/2019 Evaluation/Management Code: HC PRO PHONE CALL 11 -20 MIN ([phone]). Starting at: 09/04/2021 @ 6:07:05 PM Ending at: 09/04/2021 @ 6:25:10 PM Length: 18 minutes. Author: DUC ARITA Patient's Email Address: [email or web address] DUC AVILEZ BSN MANAGER ENT RN Signed: 09/04/2021 18:27 Receipt Acknowledged By: * AWAITING SIGNATURE * CARIDAD DENNIS * AWAITING SIGNATURE * RAINER ALLEN
--- OUTSIDE RECORDS SUMMARY | 2021-12-23 19:05 | XMS_ITS | Encounter Summary ---
:1945 Author Organization [facility] Address [address] [place] [id number] Support Name Relationship Address Phone RFANCES GANDARA Unavailable [address] [place] [address] FRANCES GANDARA Unavailable [address] [place] [address] FRANCES GANDARA Unavailable [address] [place] [address] FRANCES GANDARA Unavailable [address] [place] [address] Insurance Providers: All historical and current Section [...] MEDICARE MEDICARE PART Apr 19, PART A [id number] Whit MOJICA (WNR) (M) A 2007 [id number] [phone] JESSICA MEDICARE MEDICARE PART Apr 19, PART A [id number] Whit MOJICA (WNR) (M) A 2007 [id number] [phone] JESSICA Selected Encounter This section includes the information on record at [place] for the Encounter. Date/Time Encounter Type Encounter Reason Provider Source Description Sep 04, 2021 EMERGENCY DEPT EMERGENCY DEPT ICD-10-CM K08.89 Trey OTOOLE BDISA 07:33 PM VISIT Other specified MAD M disorders of teeth and supporting structures with Provider Comments: Other specified Disorders of Teeth and Supporting Structures IHE Encounter Template Text not used by [facility] Assessments - Encounter Diagnoses This section includes the primary and secondary diagnoses documented for the Encounter. Date/Time Primary/Secondary Diagnosis Name Provider Source Diagnosis Sep 04, 2021 PRIMARY Other specified DEONDRE BRADSHAW [facility] 08:11 PM disorders of [facility] teeth and supporting structures Plan of Treatment: Future Appointments (+ 6 [...] 06, 2021 01:30 PM AMBULATORY - NONE [facility] Sep 21, 2021 02:30 PM AMBULATORY - SURGERY [facility] Sep 22, 2021 01:00 PM AMBULATORY - NONE [facility] Sep 28, 2021 07:00 AM AMBULATORY - NONE [facility] Sep 28, 2021 01:30 PM AMBULATORY - SURGERY [facility] Oct 11, 2021 02:30 PM AMBULATORY - MEDIC[facility] Oct 26, 2021 04:45 PM AMBULATORY - NONE [facility] Nov 02, 2021 04:30 PM AMBULATORY - NONE [facility] Nov 07, 2021 06:00 PM AMBULATORY - NONE [facility] Nov 09, 2021 03:30 PM AMBULATORY - MEDICINE [facility] Nov 29, 2021 01:30 PM AMBULATORY - MEDICINE [facility] Nov 29, 2021 02:30 PM AMBULATORY - MEDICINE [facility] Dec 07, 2021 04:45 PM AMBULATORY - NONE [facility] Dec 12, 2021 02:30 PM AMBULATORY - SURGERY [facility] Dec 15, 2021 10:00 AM AMBULATORY - MEDICINE [facility] Dec 15, 2021 12:30 PM AMBULATORY - NONE [facility] Dec 15, 2021 12:45 PM AMBULATORY - NONE [facility] Dec 15, 2021 02:30 PM AMBULATORY - SURGERY [facility] Dec 20, 2021 02:00 PM AMBULATORY - NONE [facility] Dec 22, 2021 03:30 AM AMBULATORY - NONE [facility] Vital Signs: All taken on the encounter date This section contains inpatient and outpatient Vital Signs collected on the date of the Encounter. Date/Time Temperature Pulse Blood Respiratory SP02 Pain Height Weight Nancy dy Source Pressure Rate Mass Index Sep 04, 98.2 F [facility] 2021 07:34 OLIS [facility] Sep 04 161/75 16 /min 96 % 8 [facility] 2021 07:34 /min mm[Hg] [facility] Social History: Smoking Status (Most current) and [...] 2021 11:00 AM VA-TOBACCO NEVER USED [facility] Tobacco Use History This section includes a history of the smoking, or tobacco- related health factors, that were collected on or before the date of the Encounter. The data comes from the [place] facility where the Encounter took place. Date/Time Smoking Status/Tobacco Use Comment [facility] July 09, 2020 02:00 PM VA-TOBACCO FORMER USER [facility] July 09, 2020 02:00 PM VA-TOBACCO QUIT 15 YRS OR MORE [facility] Apr 17, 2019 02:39 PM INPT NO TOBACCO USE IN LAST 30 DAYS [facility] Feb 04, 2019 10:37 AM NE-TOBACCO NEVER USED [facility] Oct 15, 2018 02:43 PM INPT NO TOBACCO USE IN LAST 30 DAYS [facility] Oct 13, 2018 11:30 PM INPT NO TOBACCO USE IN LAST 30 DAYS [facility] Sep 02, 2018 05:50 PM INPT NO TOBACCO USE IN LAST 30 DAYS [facility] Aug 12, 2018 07:28 PM INPT NO TOBACCO USE IN LAST 30 DAYS [facility] Jan 30, 2018 03:28 PM VA-TOBACCO FORMER USER [facility] Jan 30, 2018 03:28 PM NE-TOBACCO QUIT 15 YRS OR MORE [facility] May 29, 2017 04:53 PM INPT NO TOBACCO USE IN LAST 30 DAYS [facility] Apr 25, 2017 10:44 PM INPT NO TOBACCO USE IN LAST 30 DAYS [facility] Jan 01, 2017 06:40 PM INPT NO TOBACCO USE IN LAST 30 DAYS [facility] Dec 21, 2016 02:43 PM FORMER TOBACCO USER 7Y OR GREATER [facility] Sep 24, 2013 08:52 AM FORMER TOBACCO USER 7Y OR GREATER [facility] Advance Directives: All historical and current [...] Source May 29, 2017 CLINICAL WARNING CORNELIO FREITASCOLBYCarlos Tasha [facility] May 16, 2017 ADVANCE DIRECTIVE CHITRASERENITY A [facility] May 16, 2017 ADVANCE DIRECTIVE DISCUSSION SERENITY [place]O [place] [facility] May 04, 2017 CLINICAL WARNING ELIDA DIAMONDRENAE Shashank [facility] May 04, 2017 CLINICAL WARNING GAEL ROSARIO [facility] Apr 26, 2017 CLINICAL WARNING NANCYKAYLEIGHCarlosJENNIFER P [facility] Jan 01, 2017 CLINICAL WARNING AYDE WELLS [facility] Jun 09, 2004 ADVANCE DIRECTIVE DARYL VILLARREAL [facility] Jun 07, 2004 ADVANCE DIRECTIVE SHERYL HOLLOWAY [facility] Encounter Notes: All associated encounter notes This section contains the clinical notes associated to the Encounter. Date/Time Encounter Note(s) Provider Source Sep 04, 2021 08:04 EMERGENCY DEPT EDUCATION NOTE: ARABELLA OTOOLE [facility] LOCAL TITLE: EMERGENCY DEPT DISCHARGE RODRIGO Cortes STANDARD TITLE: EMERGENCY DEPT EDUCATION NOTE DATE OF NOTE: SEP 04, 2021@20:04:10 ENTRY DATE: SEP 04, 2021@20:04:10 AUTHOR: NANCY OTOOLE EXP COSIGNER: URGENCY: STATUS: COMPLETED DISCHARGE INSTRUCTIONS [...] instructions below. You were treated today by Nancy Otoole MD. Special Information This Information Is About Your Follow Up Care We recommend that you follow up with your [facility] Care Team to have an appointment within the next 1 - 2 weeks. Call to arrange this appointment. If you are not feeling better and i mproving as discussed or if you have any questions please contact your [facility] Care Provider. You will need a follow-up appointment at the [facility] in 1-2 days. You can reach the Dental Clinic at to make an appointment. If you are not feeling better and i mproving over the next few days, or if you have any questions please call your Primary Care Provider . Future Appointments 09/06/2021 at 1:30pm [facility] PROS ORTH SCHILLER 60 09/21/2021 at 2:30pm [facility] UROL RTC DARY 09/28/2021 at 7:00am [facility] CARE-[facility] SKILLED HOME CARE 09/28/2021 at 1:30pm [facility] AUD GARCIA REPAIR 12/12/2021 at 1:00pm [facility] 01/19/2022 at 1:00pm [facility] EYE OPHTHAL MASON 02/23/2022 at 8:00am [facility] CARE-ADMIN BENETRAVEL This Information Is About Your Illness and Diagn osis DENTAL PAIN (Toothache) There are a number of causes of dental pain. Den rodriguez pain can be caused from abscesses (pockets of infection), cracks in the tooth, or soreness in the gums (gingivitis). Most dental pain involves irritati on of the nerve of a tooth. Whatever the cause, the best person to treat the problem is a dentist. It is very important to follow-up with a dentist to de termine what is causing the dental pain. Please follow these instructions until you see t he dentist: -Follow up with a dentist as soon as po ssible to find the cause of the dental pain. -Take any prescribed pain medicine exactly as o madeline. -If your pain gets worse after eating something sweet, rinse your mouth out with warm water. -Avoid foods or temperatures that increase your pain. -Put some ice in a small plastic bag and apply it to the painful site, if possible. Do not do this if your pain increases with cold temperature. Contact your health care provider as soon as pos amberly if you have any of the following: -increased pain. -swelling or bleeding in your mouth. -any new or more severe symptoms. -any questions or concerns. IMPORTANT MEDICATION INFORMATION [...] have your Medication List reviewed. Pending Medications IBUPROFEN 800MG TAB \ Sig: TAKE ONE TABLET BY MOUTH EVERY 8 HOURS T DONI WITH FOOD Active Medications ACCU-CHEK GUIDE (GLUCOSE) TEST STRIP USE 1 STRIP EVERY DAY TO CHECK BLOOD SUGAR--USE WITHIN 3 MINUTES OF REMOVING FROM CONTAINER ACETAMINOPHEN 500MG TAB TAKE ONE TABLET BY MOUTH EV MARGARITO 6 HOURS NEEDED FOR PAIN*NOT TO EXCEED 4000MG IN 24 HOURS FROM ALL SOURCES* ALBUTEROL 90MCG (CFC-F) 200D ORAL INHL INHALE 2 PUFFS BY INHALATION FOUR TIMES A DAY A S NEEDED FOR IMMEDIATE RELIEF OF SHORTNESS OF BREATH *SHAKE WELL* AMOXICILLIN 875/CLAV K 125MG TAB TAKE 1 TABLET BY MOUTH TWICE A DAY ARTIFICIAL SALIVA (BIOTENE MOUTH) SPRAY SPRAY 1-2 SPRAYS IN MOUTH EVERY HOUR NEEDED FOR DRY MOUTH ASPIRIN 81MG EC TAB TAKE ONE TABLET BY MOUTH EVERY DAY TO PREVENT H EART ATTACK DO NOT CHEW ATORVASTATIN CALCIUM 80MG [...] TIMES A DAY FO R DRY EYES CITALOPRAM HYDROBROMIDE 20MG TAB TAKE ONE TABLET BY MOUTH EVERY DAY FOR DEPRESSI ON CLEANSER,WOUND SKINTEGRITY TOP SPRAY SPRAY TOPICALLY DIRECTED FOR WOUND CARE CLOTRIMAZOLE 1% TOP CREAM APPLY TO AFFECTED AREA TOPICALLY TWICE A DAY NEEDED EXTERNAL USE ONLY FOR FUNGAL INFECTIONS CODEINE 10/GG 100MG/5ML (ALC-F/SF) LIQ TAKE 5 ML TO 10 ML BY MOUTH THREE TIMES A DAY A S NEEDED FOR COUGH CYANOCOBALAMIN 1000MCG TAB TAKE TWO TABLETS BY MOUTH EVERY WEEK FOR VITAMI N B12 SUPPLEMENT DICLOFENAC NA 1% TOP GEL APPLY 2 GRAMS TOPICALLY FOUR TIMES A DA Y NEEDED TO AFFECTED AREA FOR PAIN. *USE DOSE CARD IN BOX TO MEASURE DOSE. MAX 32 G CESAR PER DAY. DOCUSATE NA 50MG/SENNOSIDES 8.6MG TAB TAKE 1 TABLET BY MOUTH TWICE A DAY NEEDED FO R CONSTIPATION STOP IF DIARRHEA OCCURS DRESS,MEPILEX BORDER FLEX 4X4IN #375056 APPLY 1 DRESSING DIRECTED DRESSING,RESTORE TAPER 4X4IN H#[id number] APPLY DRESSING(S) TOPICALLY DIRECTED FOR IRENE BETIC ULCER EMPAGLIFLOZIN 25MG TAB TAKE ONE-HALF TABLET BY MOUTH EVERY MORNING FOR DIABETES ERGOCALCIF 1,250MCG (D2-50,000UNIT) CAP TAKE ONE CAPSULE BY MOUTH EVERY MONTH FLUTICASONE PROP 50MCG 120D NASAL INHL SPRAY 1 PUFF EACH NOSTRIL IN EACH NOSTRIL TWICE A DAY FOR NASAL USE GAUZE PAD 4IN X 4IN 12-PLY STERILE USE GAUZE SPONGE TOPICALLY DIRECTED GLIPIZIDE 10MG TAB TAKE ONE TABLET BY MOUTH TWICE A DAY TAKE 30 MINUTES BEFORE MEAL FOR DIABETES GLOVE LATEX X-LARGE PWDR-FREE NONSTERILE USE GLOVE(S) DIRECTED IBUPROFEN 600MG TAB TAKE ONE TABLET BY MOUTH EVERY DAY NEEDED FO R JOINT PAIN TAKE WITH FOOD INSULIN,GLARGINE 100 UNT/ML 3ML SOLOSTAR INJECT 8 UNITS UNDER THE SKIN AT BEDTIME FOR DI ABETES DISPENSE WITH SOLSTAR PEN LANCET,SOFTCLIX USE 1 LANCET TOPICALLY DIRECTED *DISPOSE OF IN A HARD-PLASTIC CONTAINER WITH A SCREW-ON LIDCONTACT GARBAGE LESLEY FOR PROPER DISPOSAL LEVOFLOXACIN 500MG TAB TAKE ONE TABLET BY MOUTH EVERY DAY LIDOCAINE 5% OINT APPLY MODERATE AMOUNT TOPICALLY FOUR TIMES A DA Y NEEDED FOR PAIN LIDOCAINE 5% PATCH APPLY 1 PATCH TOPICALLY EVERY DAY NEEDED FOR PAIN. WEAR FOR ONLY 12 HOURS THEN REMOVE FOR 12 HOURS. LOSARTAN 50MG TAB TAKE ONE-HALF TABLET BY MOUTH EVERY DAY FOR HIG H BLOOD PRESSURE MICONAZOLE NITRATE 2% TOP PWDR USE TO AFFECTED AREA TOPICALLY TWICE A DAY FOR FUNGAL INFECTION/GROIN RASH MULTIVIT W/MINERALS, CAP/TAB TAKE 1 TABLET BY MOUTH EVERY DAY FOR FO LIC ACID AND IRON DEFICIENCY (REPLACES FERROUS SULFATE) NALOXONE HCL 4MG/SPRAY SOLN NASAL SPRAY SPRAY 1 DOSE IN ONE NOSTRIL DIRECTED FOR [place] ESPONSIVENESS (FOR NARCOTIC OVERDOSE) THEN CALL 911 - IF NO CHANGE IN 2-3 M INUTES, GIVE SECOND DOSE IN OPPOSITE NOSTRIL NEEDLE,PEN 31G,8MM USE 1 NEEDLE UNDER THE SKIN DIRECTED *DISPOS E OF IN A HARD-PLASTIC CONTAINER WITH A SCREW-ON LID CONTACT GARBAGE LESLEY FOR PROPER DISPOSAL OXYCODONE 5MG/ACETAMINOPHEN 325MG TAB TAKE 2 TABLETS BY MOUTH THREE TIMES A DAY FOR S EVERE FOOT PAIN POTASSIUM CL 20MEQ SA TAB (DISPERSIBLE) TAKE ONE TABLET BY MOUTH EVERY DAY PREGABALIN 150MG ORAL CAP TAKE ONE CAPSULE BY MOUTH TWICE A DAY FOR NERVE PAIN (REPLACES PREGABALIN 100MG) PROPRANOLOL HCL 80MG TAB TAKE ONE TABLET BY MOUTH TWICE A DAY FOR HAND T REMOR ROPINIROLE HCL 2MG SA TAB TAKE TWO TABLETS BY MOUTH EVERY DAY SEMAGLUTIDE 1MG/0.75ML INJ PEN 3ML INJECT 1MG UNDER THE SKIN EVERY WEEK TADALAFIL 20MG TAB TAKE ONE TABLET BY MOUTH AT BEDTIME TAKE AT MILLY ST 30 MINUTES BEFORE ANTICIPATED SEXUAL ACTIVITY TAPE,MEDIPORE H SOFT 4IN X 10YD 3M#2869 CUT AND APPLY TAPE TOPICALLY DIRECTED TAPE,MICROPORE 1IN 3M #1530-1 CUT AND APPLY TAPE TOPICALLY DIRECTED TRIAMCINOLONE ACETONIDE 0.1% CREAM APPLY THIN LAYER TOPICALLY TWICE A DAY FOR RASH /ITCHINGAVOID FACE,GROIN & ARMPITS *FOR EXTERNAL USE ONLY VANICREAM TOP CREAM APPLY THIN LAYER TOPICALLY EVERY DAY FOR DRY SK IN, IDEALLY WITHIN 3 MINUTES AFTER BATH OR SHOWER. Medications Medications in the last 90 days CADEXOMER IODINE 0.9% TOP GEL APPLY TO INCISION OF RIGHT FOOT TOPICALLY NE EDED EVERY OTHER DAY OXYCODONE 5MG/ACETAMINOPHEN 325MG TAB TAKE 2 TABLETS BY MOUTH THREE TIMES A DAY FOR S EVERE FOOT PAIN Discontinued Medications Medications discontinued in the last 90 days ACCU-CHEK GUIDE (GLUCOSE) TEST STRIP USE 1 STRIP TOPICALLY TWICE A DAY TO CHECK BLOO D SUGAR--USE WITHIN 3 MINUTES OF REMOVING FROM CONTAINER TEST AT DIFFERENT TIMES OF THE DAY OR DIRECTED ACETAMINOPHEN 500MG TAB TAKE ONE TABLET BY MOUTH EV MARGARITO 6 HOURS NEEDED FOR PAIN*NOT TO EXCEED 4000MG IN 24 HOURS FROM ALL SOURCES* ACETAMINOPHEN 500MG TAB TAKE ONE TABLET BY MOUTH EV MARGARITO 6 HOURS NEEDED FOR PAIN*NOT TO EXCEED 4000MG IN 24 HOURS FROM ALL SOURCES* ALBUTEROL 90MCG (CFC-F) 200D ORAL INHL INHALE 2 PUFFS BY INHALATION FOUR TIMES A DAY A S NEEDED FOR IMMEDIATE RELIEF OF SHORTNESS OF BREATH *SHAKE WELL* ALCOHOL PREP PAD USE 1 PAD TOPICALLY DIRECTED AMOXICILLIN 875/CLAV K 125MG TAB TAKE 1 TABLET BY MOUTH TWICE A DAY ARTIFICIAL SALIVA (BIOTENE MOUTH) SPRAY SPRAY 1-2 SPRAYS IN MOUTH EVERY HOUR NEEDED FOR DRY MOUTH ARTIFICIAL TEARS POLYVINYL ALCOHOL INSTILL 1 DROP IN BOTH EYES THREE TIMES A DAY A S NEEDED FOR DRY EYES ASPIRIN 81MG EC TAB TAKE ONE TABLET BY MOUTH EVERY DAY TO PREVENT H EART ATTACK DO NOT CHEW ATORVASTATIN CALCIUM 80MG [...] TIMES A DAY FO R DRY EYES CEPHALEXIN 500MG CAP TAKE ONE CAPSULE BY MOUTH FOUR TIMES A DAY CHOLECALCIF 25MCG (D3-1,000UNIT) TAB TAKE ONE TABLET BY MOUTH EVERY DAY FOR VITAMIN D SUPPLEMENTATION CITALOPRAM HYDROBROMIDE 20MG TAB TAKE ONE TABLET BY MOUTH EVERY DAY FOR DEPRESSI ON CITALOPRAM HYDROBROMIDE 20MG TAB TAKE ONE TABLET BY MOUTH EVERY DAY FOR DEPRESSI ON CLEANSER,WOUND SKINTEGRITY TOP SPRAY SPRAY TO LEFT HEEL AND RIGHT FOOT SUNDAY, AND SUNDAY INSTRUCTED FOR DRESSING CHANGES CLOTRIMAZOLE 1% TOP CREAM APPLY TO AFFECTED AREA TOPICALLY TWICE A DAY NEEDED EXTERNAL USE ONLY FOR FUNGAL INFECTIONS CODEINE 10/GG 100MG/5ML (ALC-F/SF) LIQ TAKE 5 ML TO 10 ML BY MOUTH THREE TIMES A DAY A S NEEDED FOR COUGH CODEINE 10/GG 100MG/5ML (ALC-F/SF) LIQ TAKE 5 [...] TAKE ONE CAPSULE BY MOUTH TWICE A DAY *STOP IF HAVING DIARRHEA* DOXYCYCLINE HYCLATE 100MG TAB TAKE ONE TABLET BY MOUTH TWICE A DAY DRESS,MEPILEX BORDER FLEX 4X4IN #094118 APPLY 1 DRESSING DIRECTED DRESS,MEPILEX BORDER FLEX 4X4IN #344387 APPLY 1 DRESSING TOPICALLY DIRECTED USE ON R IGHT AND LEFT FOOT ULCER. CHANGE EVERY OTHER DAY. EMPAGLIFLOZIN 25MG TAB TAKE ONE-HALF TABLET BY MOUTH EVERY MORNING FOR DIABETES EMPAGLIFLOZIN 25MG TAB TAKE ONE-HALF TABLET BY [...] DIABETES GLOVE LATEX X-LARGE PWDR-FREE NONSTERILE USE GLOVE(S) DIRECTED HYDROCORTISONE 2.5% CREAM APPLY THIN LAVER TO ANKLE TOPICALLY THREE TIMES A DAY NEEDED FOR ITCHING IBUPROFEN 600MG TAB TAKE ONE TABLET BY MOUTH EVERY DAY NEEDED FO R JOINT PAIN TAKE WITH FOOD INSULIN,GLARGINE 100 [...] FOR GLAUC JOSIAH REFRIGERATE BOTTLE UNTIL OPENED. LEVOFLOXACIN 500MG TAB TAKE ONE TABLET BY MOUTH ONCE EVERY DAY FOR 7 D AYS LIDOCAINE 4% TOP CREAM APPLY MODERATE AMOUNT THREE TIMES A DAY NEED ED FOR PAIN CREAM LIDOCAINE 5% PATCH APPLY 1 PATCH EVERY DAY FOR BACK PAIN -WEAR FOR ONLY 12 HOURS AND THEN REMOVE AND LEAVE OFF FOR 12 HOURS LOSARTAN 50MG TAB TAKE ONE-HALF TABLET BY MOUTH EVERY DAY FOR HIG H BLOOD PRESSURE METFORMIN HCL 500MG/5ML ORAL SOLN [...] WITH A SCREW-ON LID CO NTACT GARBAGE LESLEY FOR PROPER DISPOSAL TO USE WITH GLARGINE [facility] MEDICATIONS MISCELLANEOUS (Non-VA Medication) OXYCODONE 5MG/ACETAMINOPHEN 325MG TAB TAKE 2 TABLETS BY MOUTH THREE TIMES A DAY FOR S EVERE FOOT PAIN OXYMETAZOLINE 0.05% SOLN,SPRAY,NASAL 1 SPRAY EACH NOSTRIL NEEDED (Non-VA Medication) POTASSIUM CHLORIDE 20MEQ/PKT ORAL PWD TAKE 1 [...] 80MG TAB TAKE ONE TABLET BY MOUTH TWICE A DAY FOR HAND T REMOR ROPINIROLE HCL 2MG SA TAB TAKE TWO [...] MAXIMUM 4 DOSES FO R 30-DAY SUPPLY TAPE,MEDIPORE H SOFT 4IN X 10YD #6239 CUT AND APPLY TAPE DIRECTED TRIAMCINOLONE ACETONIDE 0.1% OINT APPLY MODERATE [...] TAKE ONE CAPSULE BY MOUTH EVERY DAY YOU ARE THE MOST IMPORTANT FACTOR IN [...] OR GO TO THE NEAREST EMERGENCY ROOM /es/ NANCY OTOOLE MD ED/MABEL CARRANZA - [facility] Signed: 09/04/2021 20:04 Sep 04, 2021 08:04 EMERGENCY DEPT EDUCATION NOTE: HUDSON MELENDEZ [facility] LOCAL TITLE: EMERGENCY DEPT DISCHARGE INSTRUCTI ONS STANDARD TITLE: EMERGENCY DEPT EDUCATION NOTE DATE OF NOTE: SEP 04, 2021@20:04 ENTRY DATE: SEP 04, 2021@20:04:21 AUTHOR: HUDSON MELENDEZ EXP COSIGNER: URGENCY: STATUS: COMPLETED Emergency Department Discharge Education Personal Protective Equipment (PPE): None, Vivian ent was in mask on arrival, Patient was in mask on arrival, patien t remained masked for entire visit, RN used PPE during every encounter with the patient The patient was given education on the followin g: Dental Pain EDUCATION/TEACH BACK: [facility] discharge instructions have been revie wed with Patient AND had an opportunity to ask questions, has verbal ized understanding, have received a copy of the [facility] instructions, P erforms skills effectively EDUCATIONAL LEVEL OF UNDERSTANDING: Patient was ready and receptive to education. BARRIERS TO LEARNING: No barriers identified Accompanied by: Self Mode of Transportation: Drive self EXIT ADDITIONAL EDUCATION GIVE: Discharged to: Home /es/ HUDSON MELENDEZ RN REGISTERED NURSE Signed: 09/04/2021 20:04 Sep 04, 2021 08:03 PHYSICIAN EMERGENCY DEPT NOTE: ARABELLA OTOOLE [facility] LOCAL TITLE: EMERGENCY DEPT NOTE M STANDARD TITLE: PHYSICIAN EMERGENCY DEPT NOTE DATE OF NOTE: SEP 04, 2021@20:03 ENTRY DATE: SEP 04, 2021@20:03:55 AUTHOR: NANCY OTOOLE EXP COSIGNER: URGENCY: STATUS: COMPLETED Nurse's note reviewed as available. CC: Dental pain HPI: JESSICA MOJICA is a 75 yo MALE presents w c/o dental pain. Patient had third molar extraction on the left side on August 23, 2021. Patient states since then he has been having pain with movement of hi s mouth. He also has mild headache. He continues to take antibiotics as pr escribed to him. He was not able to see the dentist since the extraction. Rui oates has not tried ibuprofen, he has been taking Tylenol since the extraction. ROS: in addition, Comprehensive ROS o/w negative for pertinent acu te symptoms. PMH: Active problems - Computerized Problem List is [...] Heart failure Allergies: RIVAROXABAN (Jul 25, 2017) Allergies, SH, medications reviewed in CPRS Active Outpatient Medications (excluding Supplie s): Outpatient Medications Status 1) ACCU-CHEK GUIDE (GLUCOSE) TEST STRIP USE 1 ST RIP ACTIVE EVERY DAY TO CHECK BLOOD SUGAR--USE WITHIN [...] OF SHORTNESS OF BREATH *SHAKE WELL* 4) AMOXICILLIN 875/CLAV K 125MG TAB TAKE 1 TABLE T BY ACTIVE MOUTH TWICE A DAY 5) ARTIFICIAL SALIVA (BIOTENE MOUTH) SPRAY SPRAY 1-2 ACTIVE SPRAYS IN MOUTH EVERY HOUR NEEDED FOR DRY MO UTH 6) ASPIRIN 81MG EC TAB TAKE ONE [...] TIMES A DAY FOR DRY EYES 11) CITALOPRAM HYDROBROMIDE 20MG TAB TAKE ONE TA BLET BY ACTIVE MOUTH EVERY DAY FOR DEPRESSION 12) CLEANSER,WOUND SKINTEGRITY TOP SPRAY SPRAY T OPICALLY ACTIVE DIRECTED FOR WOUND CARE 13) CLOTRIMAZOLE 1% TOP CREAM APPLY TO AFFECTED AREA ACTIVE TOPICALLY TWICE A DAY NEEDED EXTERNAL USE ONLY FOR FUNGAL INFECTIONS 14) CODEINE 10/GG 100MG/5ML (ALC-F/SF) LIQ TAKE 5 ML TO ACTIVE 10 ML BY MOUTH THREE TIMES A DAY NEEDED FOR COUGH 15) CYANOCOBALAMIN 1000MCG TAB TAKE TWO TABLETS BY MOUTH ACTIVE EVERY WEEK FOR VITAMIN B12 SUPPLEMENT 16) DICLOFENAC NA 1% TOP GEL APPLY 2 GRAMS TOPIC ALLY FOUR ACTIVE TIMES A DAY NEEDED TO AFFECTED AREA FOR PAIN . *USE DOSE CARD IN BOX TO MEASURE DOSE. MAX 32 G CESAR PER DAY. 17) DOCUSATE NA 50MG/SENNOSIDES 8.6MG TAB TAKE 1 TABLET ACTIVE BY MOUTH TWICE A DAY NEEDED FOR CONSTIPATION STOP IF DIARRHEA OCCURS 18) EMPAGLIFLOZIN 25MG TAB TAKE ONE-HALF TABLET BY MOUTH ACTIVE EVERY MORNING FOR DIABETES 19) ERGOCALCIF 1,250MCG (D2-50,000UNIT) CAP TAKE ONE ACTIVE CAPSULE BY MOUTH EVERY MONTH 20) FLUTICASONE PROP 50MCG 120D NASAL INHL SPRAY 1 PUFF ACTIVE EACH NOSTRIL IN EACH NOSTRIL TWICE A DAY FOR NASAL USE 21) GLIPIZIDE 10MG TAB TAKE ONE TABLET BY MOUTH TWICE A ACTIVE DAY TAKE 30 MINUTES BEFORE MEAL FOR DIABETE S 22) IBUPROFEN 600MG TAB TAKE ONE TABLET BY MOUTH EVERY ACTIVE DAY NEEDED FOR JOINT PAIN TAKE WITH FOOD 23) IBUPROFEN 800MG TAB TAKE ONE TABLET BY MOUTH EVERY 8 PENDING HOURS TAKE WITH FOOD 24) INSULIN,GLARGINE 100 UNT/ML 3ML SOLOSTAR INJ ECT 8 ACTIVE UNITS UNDER THE SKIN AT BEDTIME FOR DIABETES DISPENSE WITH SOLSTAR PEN 25) LEVOFLOXACIN 500MG TAB TAKE ONE TABLET BY MO UT EVERY ACTIVE DAY 26) LIDOCAINE 5% OINT APPLY MODERATE AMOUNT TOPI MASOOD ACTIVE FOUR TIMES A DAY NEEDED FOR PAIN 27) LIDOCAINE 5% PATCH APPLY 1 PATCH TOPICALLY E VERY DAY ACTIVE NEEDED FOR PAIN. WEAR FOR ONLY 12 HOURS THEN REMOVE FOR 12 HOURS. 28) LOSARTAN 50MG TAB TAKE ONE-HALF TABLET BY MO UTH EVERY ACTIVE DAY FOR HIGH BLOOD PRESSURE 29) MICONAZOLE NITRATE 2% TOP PWDR USE TO AFFECT ED AREA ACTIVE TOPICALLY TWICE A DAY FOR FUNGAL INFECTION/GROI N RASH 30) MULTIVIT W/MINERALS, CAP/TAB TAKE 1 TABLET BY ACTIVE MOUTH EVERY DAY FOR FOLIC ACID AND IRON DEFICIE NCY (REPLACES FERROUS SULFATE) 31) NALOXONE HCL 4MG/SPRAY SOLN NASAL SPRAY SPRA Y 1 DOSE ACTIVE IN ONE NOSTRIL DIRECTED FOR UNRESPONSIVENESS (FOR NARCOTIC OVERDOSE) THEN CALL 911 - IF NO CHANGE IN 2-3 MINUTES, GIVE SECOND DOSE IN OPPO SITE NOSTRIL 32) OXYCODONE 5MG/ACETAMINOPHEN 325MG TAB TAKE 2 TABLETS ACTIVE BY MOUTH THREE TIMES A DAY FOR SEVERE FOOT PAIN 33) POTASSIUM CL 20MEQ SA TAB (DISPERSIBLE) TAKE ONE ACTIVE TABLET BY MOUTH EVERY DAY 34) PREGABALIN 150MG ORAL CAP TAKE ONE CAPSULE B Y MOUTH ACTIVE TWICE A DAY FOR NERVE PAIN (REPLACES PREGABALIN 100MG) 35) PROPRANOLOL HCL 80MG TAB TAKE ONE TABLET BY MOUTH ACTIVE TWICE A DAY FOR HAND TREMOR 36) ROPINIROLE HCL 2MG SA TAB TAKE TWO TABLETS B Y MOUTH ACTIVE EVERY DAY 37) SEMAGLUTIDE 1MG/0.75ML INJ PEN 3ML INJECT 1M G UNDER ACTIVE THE SKIN EVERY WEEK 38) TADALAFIL 20MG TAB TAKE ONE TABLET BY MOUTH AT ACTIVE BEDTIME TAKE AT LEAST 30 MINUTES BEFORE ANTICIP ATED SEXUAL ACTIVITY 39) TRIAMCINOLONE ACETONIDE 0.1% CREAM APPLY THI N LAYER ACTIVE TOPICALLY TWICE A DAY FOR RASH/ITCHINGAVOID FACE,GROIN & ARMPITS *FOR EXTERNAL USE ONLY 40) VANICREAM TOP CREAM APPLY THIN LAYER TOPICAL LY EVERY ACTIVE DAY FOR DRY SKIN, IDEALLY WITHIN 3 MINUTES AFTE R BATH OR SHOWER. Exam Temp : 98.2 F [36.8 C] (09/04/2021 19:34) P : 73 (09/04/2021 19:34) RR : 16 (09/04/2021 19:34) B/P : 161/75 (09/04/2021 19:34) Wt : 230 lb [104.33 kg] (07/29/2021 13:02) Pain : 8 (09/04/2021 19:34) Pulse Ox: 96% (09/04/2021 19:34) Gen: alert, conversant, NAD Mouth: Third molar on fourth molar missing on th e left upper side. No bleeding or purulent drainage. Relevant diagnostic studies reviewed in CPRS. ED Course/MDM/ASSESSMENT/PLAN: Dental pain Patient presents with dental pain after dental e xtraction. He has been using tylenol for pain. Patient was prescribed ibuprofen 800 mg 3 times daily. He was instructed to take it with food and not exceed more than 2400 g a day. Patient also was encouraged to follow-up with [facility] dentist. Patient showed understanding and agreement with above plan. Edu: was informed of available results, impression, plan of care - verbalized understanding/agreement. /es/ NANCY OTOOLE MD ED/MABEL CARRANZA - HEATING UNIT MECHANIC Signed: 09/04/2021 20:08 Receipt Acknowledged By: * AWAITING SIGNATURE * CARIDAD DENNIS Sep 04, 2021 07:47 NURSING EMERGENCY DEPT NOTE: KATHRYN VU [facility] LOCAL TITLE: EMERGENCY DEPT NURSING NOTE STANDARD TITLE: NURSING EMERGENCY DEPT NOTE DATE OF NOTE: SEP 04, 2021@19:47 ENTRY DATE: SEP 04, 2021@19:47:47 AUTHOR: KATHRYN VU EXP COSIGNER: URGENCY: STATUS: COMPLETED Nursing Focused Assessment: CHIEF COMPLAINT: Patient reports left sided den rodriguez pain, hx of pain since molar removal. Allergies/ADR: RIVAROXABAN (Jul 25, 2017) Additional allergies not listed: None Vital Signs * Blood Pressure: 161/75 (09/04/2021 19:34) Heart Rate: 73 (09/04/2021 19:34) Respirations: 16 (09/04/2021 19:34) Temperature: 98.2 F [36.8 C] (09/04/2021 19:34) Pain: 8 (09/04/2021 19:34) Weight: 230 lb [104.33 kg] (07/29/2021 13:02) O2 Sats: 96% (09/04/2021 19:34) Pain intensity: (Patient rates the pain. 0 = no pain; 10 = worst pain) Is your pain new with this visit? (acute or chroni c) No Tobacco use: No Alcohol use: No Any drugs besides what is prescribed or over th e counter: No ABUSE/NEGLECT: No evidence of abuse/neglect REVIEW OF SYSTEM-FOCUSED ASSESSMENT Neurological: Alert &Ox4 Ear, nose, throat: Left sided dental pain. /es/ KATHRYN VU RN REGISTERED NURSE Signed: 09/04/2021 19:57 Sep 04, 2021 07:35 NURSING EMERGENCY DEPT TRIAGE NOTE: MONTANEZ [facility] LOCAL TITLE: EMERGENCY DEPARTMENT NURSING TRIAG E NOTE STANDARD TITLE: NURSING EMERGENCY DEPT TRIAGE NO TE DATE OF NOTE: SEP 04, 2021@19:35 ENTRY DATE: SEP 04, 2021@19:35:53 AUTHOR: SUSAN JAMESON EXP COSIGNER: URGENCY: STATUS: COMPLETED Emergency Department/Urgent Care Center Triage Patient age:75 Sex: MALE On arrival patient was: WHEELCHAIR Patient phone number: Allergies: RIVAROXABAN (Jul 25, 2017) Subjective/Chief Complaint: c/o dental pain/L side molar Objective: I've already been here twice now for this. Rem ains on an antibiotic. The patient is not a fall risk. Vital Signs * Blood Pressure: 161/75 (09/04/2021 19:34) Heart Rate: 73 (09/04/2021 19:34) Respirations: 16 (09/04/2021 19:34) Temperature: 98.2 F [36.8 C] (09/04/2021 19:34) Pain: 8 (09/04/2021 19:34) Weight: 230 lb [104.33 kg] (07/29/2021 13:02) O2 Sats: 96% (09/04/2021 19:34) Emergency Severity Index (CAROLINE) level Level 4 Current Medications: Active Outpatient Medications (including Supplie s): Active Outpatient Medications Status 1) ACCU-CHEK GUIDE (GLUCOSE) TEST STRIP USE 1 ST RIP ACTIVE EVERY DAY TO CHECK BLOOD SUGAR--USE WITHIN [...] OF SHORTNESS OF BREATH *SHAKE WELL* 4) AMOXICILLIN 875/CLAV K 125MG TAB TAKE 1 TABLE T BY ACTIVE MOUTH TWICE A DAY 5) ARTIFICIAL SALIVA (BIOTENE MOUTH) SPRAY SPRAY 1-2 ACTIVE SPRAYS IN MOUTH EVERY HOUR NEEDED FOR DRY MO UTH 6) ASPIRIN 81MG EC TAB TAKE ONE [...] TIMES A DAY FOR DRY EYES 11) CITALOPRAM HYDROBROMIDE 20MG TAB TAKE ONE TA BLET BY ACTIVE MOUTH EVERY DAY FOR DEPRESSION 12) CLEANSER,WOUND SKINTEGRITY TOP SPRAY SPRAY T OPICALLY ACTIVE DIRECTED FOR WOUND CARE 13) CLOTRIMAZOLE 1% TOP CREAM APPLY TO AFFECTED AREA ACTIVE TOPICALLY TWICE A DAY NEEDED EXTERNAL USE ONLY FOR FUNGAL INFECTIONS 14) CODEINE 10/GG 100MG/5ML (ALC-F/SF) LIQ TAKE 5 ML TO ACTIVE 10 ML BY MOUTH THREE TIMES A DAY NEEDED FOR COUGH 15) CYANOCOBALAMIN 1000MCG TAB TAKE TWO TABLETS BY MOUTH ACTIVE EVERY WEEK FOR VITAMIN B12 SUPPLEMENT 16) DICLOFENAC NA 1% TOP GEL APPLY 2 GRAMS TOPIC ALLY FOUR ACTIVE TIMES A DAY NEEDED TO AFFECTED AREA FOR PAIN . *USE DOSE CARD IN BOX TO MEASURE DOSE. MAX 32 G CESAR PER DAY. 17) DOCUSATE NA 50MG/SENNOSIDES 8.6MG TAB TAKE 1 TABLET ACTIVE BY MOUTH TWICE A DAY NEEDED FOR CONSTIPATION STOP IF DIARRHEA OCCURS 18) DRESS,MEPILEX BORDER FLEX 4X4IN #[id number] APPL Y 1 ACTIVE DRESSING DIRECTED 19) DRESSING,RESTORE TAPER 4X4IN H#[id number] APPLY ACTIVE DRESSING(S) TOPICALLY DIRECTED FOR DIABETIC ULCER 20) EMPAGLIFLOZIN 25MG TAB TAKE ONE-HALF TABLET BY MOUTH ACTIVE EVERY MORNING FOR DIABETES 21) ERGOCALCIF 1,250MCG (D2-50,000UNIT) CAP TAKE ONE ACTIVE CAPSULE BY MOUTH EVERY MONTH 22) FLUTICASONE PROP 50MCG 120D NASAL INHL SPRAY 1 PUFF ACTIVE EACH NOSTRIL IN EACH NOSTRIL TWICE A DAY FOR NASAL USE 23) GAUZE PAD 4IN X 4IN 12-PLY STERILE USE GAUZE SPONGE ACTIVE TOPICALLY DIRECTED 24) GLIPIZIDE 10MG TAB TAKE ONE TABLET BY MOUTH TWICE A ACTIVE DAY TAKE 30 MINUTES BEFORE MEAL FOR DIABETE S 25) GLOVE LATEX X-LARGE PWDR-FREE NONSTERILE USE GLOVE(S) ACTIVE DIRECTED 26) IBUPROFEN 600MG TAB TAKE ONE TABLET [...] LIDCONTACT GARBAGE HAULER FOR PROPER DISPOSAL 29) LEVOFLOXACIN 500MG TAB TAKE ONE TABLET BY MO UTH EVERY ACTIVE DAY 30) LIDOCAINE 5% OINT APPLY MODERATE AMOUNT TOPI MASOOD ACTIVE FOUR TIMES A DAY NEEDED FOR PAIN 31) LIDOCAINE 5% PATCH APPLY 1 PATCH TOPICALLY E VERY DAY ACTIVE NEEDED FOR PAIN. WEAR FOR ONLY 12 HOURS THEN REMOVE FOR 12 HOURS. 32) LOSARTAN 50MG TAB TAKE ONE-HALF TABLET BY MO UTH EVERY ACTIVE DAY FOR HIGH BLOOD PRESSURE 33) MICONAZOLE NITRATE 2% TOP PWDR USE TO AFFECT ED AREA ACTIVE TOPICALLY TWICE A DAY FOR FUNGAL INFECTION/GROI N RASH 34) MULTIVIT W/MINERALS, CAP/TAB TAKE 1 TABLET BY ACTIVE MOUTH EVERY DAY FOR FOLIC ACID AND IRON DEFICIE NCY (REPLACES FERROUS SULFATE) 35) NALOXONE HCL 4MG/SPRAY SOLN NASAL SPRAY SPRA Y 1 DOSE ACTIVE IN ONE NOSTRIL DIRECTED FOR UNRESPONSIVENESS (FOR NARCOTIC OVERDOSE) THEN CALL 911 - IF NO CHANGE IN 2-3 MINUTES, GIVE SECOND DOSE IN OPPO SITE NOSTRIL 36) NEEDLE,PEN 31G,8MM USE 1 NEEDLE UNDER THE SK IN ACTIVE DIRECTED *DISPOSE OF IN A HARD-PLASTIC CONTAINE R WITH A SCREW-ON LID CONTACT GARBAGE HAULER FO R PROPER DISPOSAL 37) OXYCODONE 5MG/ACETAMINOPHEN 325MG TAB TAKE 2 TABLETS ACTIVE BY MOUTH THREE TIMES A DAY FOR SEVERE FOOT PAIN 38) POTASSIUM CL 20MEQ SA TAB (DISPERSIBLE) TAKE ONE ACTIVE TABLET BY MOUTH EVERY DAY 39) PREGABALIN 150MG ORAL CAP TAKE ONE CAPSULE B Y MOUTH ACTIVE TWICE A DAY FOR NERVE PAIN (REPLACES PREGABALIN 100MG) 40) PROPRANOLOL HCL 80MG TAB TAKE ONE TABLET BY MOUTH ACTIVE TWICE A DAY FOR HAND TREMOR 41) ROPINIROLE HCL 2MG SA TAB TAKE TWO TABLETS B Y MOUTH ACTIVE EVERY DAY 42) SEMAGLUTIDE 1MG/0.75ML INJ PEN 3ML INJECT 1M G UNDER ACTIVE THE SKIN EVERY WEEK 43) TADALAFIL 20MG TAB TAKE ONE TABLET BY MOUTH AT ACTIVE BEDTIME TAKE AT LEAST 30 MINUTES BEFORE ANTICIP ATED SEXUAL ACTIVITY 44) TAPE,MEDIPORE H SOFT 4IN X 10YD 3M#2864 CUT AND APPLY ACTIVE TAPE TOPICALLY DIRECTED 45) TAPE,MICROPORE 1IN 3M #1530-1 CUT AND APPLY TAPE ACTIVE TOPICALLY DIRECTED 46) TRIAMCINOLONE ACETONIDE 0.1% CREAM APPLY THI N LAYER ACTIVE TOPICALLY TWICE A DAY FOR RASH/ITCHINGAVOID FACE,GROIN & ARMPITS *FOR EXTERNAL USE ONLY 47) VANICREAM TOP CREAM APPLY THIN LAYER TOPICAL LY EVERY ACTIVE DAY FOR DRY SKIN, IDEALLY WITHIN 3 MINUTES AFTE R BATH OR SHOWER. 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 Result: Screen is negative. Suicide Screen: [place] Suicide Severity Rating Scale (C-SSRS) screener 1. Over the past month, have you wished you wer e or wished you could go to sleep and not wake up? No 2. Over the past month, have you had any actual thoughts of killing yourself? No 3. Over the past month, have you been thinking about how you might do this? Response not required due to responses to other questions. 4. Over the past month, have you had these [facility] ghts and had some intention of acting on [...] due to responses to other questions. /vinicio/ SUSAN JAMESON GAUGE MAKER APPRENTICE RN Signed: 09/04/2021 19:37
--- OUTSIDE RECORDS SUMMARY | 2021-12-23 19:10 | XMS_ITS | Encounter Summary ---
:1945 Author Organization Department [facility] Address [address] [place] [address] Support Name Relationship Address Phone FRANCES GANDARA Unavailable [address] [place] [address] FRANCES GANDARA Unavailable [address] [place] [address] FRANCES GANDARA Unavailable [address] [place] [address] FRANCES GANDARA Unavailable [address] [place] [address] Insurance Providers: All historical and current Section [...] MEDICARE MEDICARE PART Apr 19, PART A [id number] Whit MOJ[place] (WNR) (M) A 2007 50A [phone] JESSICA MEDICARE MEDICARE PART Apr 19, PART A [id number] Whit [place] (WNR) (M) A 2007 [id number] [phone] JESSICA Selected Encounter This section includes the information on record at [place] for the Encounter. Date/Time Encounter Type Encounter Reason Provider Source Description Sep 06, 2021 ORTHC/PROSTC PROSTHETICS/ORTHOT ICD-10-CM SID HARTMAN 01:30 PM MGMT SBSQ ENC ICS M14.672 EY J Charcot's joint, left ankle and foot with Provider Comments: Charcot's Joint, left Ankle and Foot IHE Encounter Template Text not used by [facility] Assessments - Encounter Diagnoses This section includes the primary and secondary diagnoses documented for the Encounter. Date/Time Primary/Secondary Diagnosis Name Provider Source Diagnosis Sep 06, 2021 PRIMARY Charcot's THEA HARTMAN V A 03:21 PM joint, left EY J [facility] ankle and foot Plan of [...] Appointment Type Appointment Facili ty Name Sep 21, 2021 02:30 PM AMBULATORY - SURGERY [facility] Sep 22, 2021 01:00 PM AMBULATORY - NONE [facility] Sep 28, 2021 07:00 AM AMBULATORY - NONE [facility] Sep 28, 2021 01:30 PM AMBULATORY - SURGERY [facility] Oct 11, 2021 02:30 PM [facility]UL[facility] MED[facility] Oct 26, 2021 04:45 PM AMBULATORY - NONE [facility] Nov 02, 2021 04:30 PM AMBULATORY - NONE [facility] Nov 07, 2021 06:00 PM AMBULATORY - NONE [facility] Nov 09, 2021 03:30 PM AMBULATORY - MEDICINE [facility] Nov 29, 2021 01:30 PM AMBULATORY - MEDICINE [facility] Nov 29, 2021 02:30 PM AMBULATORY [facility]INE [facility] Dec 07, 2021 04:45 PM AMBULATORY - NONE [facility] Dec 12, 2021 02:30 PM AMBULATORY - SURGERY [facility] Dec 15, 2021 10:00 AM AMBULATORY - MEDICINE [facility] Dec 15, 2021 12:30 PM AMBULATORY - NONE [facility] Dec 15, 2021 12:45 PM AMBULATORY - NONE [facility] Dec 15, 2021 02:30 PM AMBULATORY - SURGERY [facility] Dec 20, 2021 02:00 PM AMBULATORY - NONE [facility] Dec 22, 2021 03:30 AM AMBULATORY - NONE [facility] Jan 02, 2022 05:10 PM AMBULATORY - REHAB MED[facility] Social History: Smoking Status (Most current) and Tobacco Use (All prior to encounter date) This section includes the most current, and the historical, smoking and tobacco-related health factors from the [facility] where the Encounter took place.Current Smoking Status This section includes the most current smoking, or tobacco-related health factor, from the [facility] where the Encounter took place. Date/Time Current Smoking Status Comment Facility Apr 25, 2021 11:00 AM VA-TOBACCO NEVER USED [place] [facility] Tobacco Use History This section includes a history of the smoking, or tobacco- related health factors, that were collected on or before the date of the Encounter. The data comes from the [place] facility where the Encounter took place. Date/Time Smoking Status/Tobacco Use Comment [facility] July 09, 2020 02:00 PM [facility] July 09, 2020 02:00 PM VA-TOBACCO QUIT 15 YRS OR MORE [facility] Apr 17, 2019 02:39 PM INPT NO TOBACCO USE IN LAST 30 DAYS [facility] Feb 04, 2019 10:37 AM VA-TOBACCO NEVER USED [place] [facility] Oct 15, 2018 [...] 2018 03:28 PM VA-TOBACCO FORMER USER [facility] Jan 30, 2018 03:28 PM [...] May 29, 2017 CLINICAL WARNING FREITASCORNELIOCOLBYCarlos Tasha [facility] May 16, 2017 ADVANCE DIRECTIVE SERENITY BUENROSTRO [facility] May 16, 2017 ADVANCE DIRECTIVE DISCUSSION [facility] [place] [place] [facility] May 04, 2017 CLINICAL WARNING MAGO DIAMOND [facility] May 04, 2017 CLINICAL WARNING BITAGAEL PARRA [facility] Apr 26, 2017 CLINICAL WARNING NANCYJENNIFER KUMAR Whit [facility] Jan 01, 2017 CLINICAL WARNING AYDE WELLS [facility] Jun 09, 2004 ADVANCE DIRECTIVE DARYL VILLARREAL [facility] Jun 07, 2004 ADVANCE DIRECTIVE SHERYL HOLLOWAY [facility] Encounter Notes: All associated encounter notes This section contains the clinical notes associated to the Encounter. Date/Time Encounter Note(s) Provider Source Sep 06, 2021 03:19 PM ORTHOTICS PROSTHETICS CONSULT: SOILA HARTMAN [facility] LOCAL TITLE: PROSTHETICS CONSULT STANDARD TITLE: ORTHOTICS PROSTHETICS CONSULT DATE OF NOTE: SEP 06, 2021@15:19 ENTRY DATE: SEP 06, 2021@15:19:50 AUTHOR: CLAUDE HARTMAN EXP COSIGNER: URGENCY: STATUS: COMPLETED Custom Made AFO, [place] Boot Provisional Diagnosis: Charcot's Joint, left Ank le and Foot(ICD-10-CM M14.672) Side: L Patient was seen in the prosthetics department f or adjustment to BL [place] Boots. Pt states surgery on R 06/13 @ [facility], continues to heal at the midfoot. Pt states that he's feeling discomf ort on L as well. Additional accommodation ground to inferior surf sally of R AFO inner boot to improve relief posterior to the wound, and to in ferior surface of L AFO inner boot to improve relief medial to the apex of the charcot midfoot. Pt states that AFOs are more comfortable following adjustm ent. EDUCATION: Education was provided to patient dur ing this encounter. Patient indicated readiness to learn about educational i nformation re: the following topics: donning/doffing, wash/care instructions, how to report a concern. Additional education training is not indicated. Patient indicates readiness to learn, verbalizes understanding, agreement and satisfaction with the treatment plan. Patient de nies further questions. Patient to be seen as needed. /vinicio/ Claude Hartman Scaffolding Helper District Leader Signed: 09/06/2021 15:21
--- OUTSIDE RECORDS SUMMARY | 2021-12-23 19:11 | XMS_ITS | Encounter Summary ---
:1945 Author Organization [facility] Address [address] [place] [address] Support Name Relationship Address Phone FRANCES GANDARA Unavailable [address] [place] [address] FRANCES GANDARA Unavailable [address] [place] [address] FRANCES GANDARA Unavailable [address] [place] [address] FRANCES GANDARA Unavailable [address] [place] [address] Insurance Providers: All historical and current Section [...] MEDICARE MEDICARE PART Apr 19, PART A [id number] Whit [place] (WNR) (M) A 2007 50A [phone] JESSICA MEDICARE MEDICARE PART Apr 19, PART A [id number] 800 Whit [place] (WNR) (M) A 2007 [id number] [phone] JESSICA Selected Encounter This section includes the information on record at [place] for the Encounter. Date/Time Encounter Type Encounter Description Reason Provider Source Sep 09, 2021 10:58 Outpatient Encounter COMMUNITY CARE AM CONSULT IHE [...] 20 appointments. The data comes from all [place] treatment facilities. Appointment Date/Time Appointment Type Appointment Facili ty Name Sep 21, 2021 02:30 PM AMBULATORY - SURGERY [facility] Sep 22, 2021 01:00 PM AMBULATORY - NONE [facility] Sep 28, 2021 07:00 AM AMBULATORY - NONE [facility] Sep 28, 2021 01:30 PM AMBULATORY - SURGERY [facility] Oct 11, 2021 02:30 PM AMBULATORY - MEDICINE [facility] Oct 26, 2021 04:45 PM AMBULATORY - NONE [facility] Nov 02, 2021 04:30 PM AMBULATORY - NONE [facility] Nov 07, 2021 06:00 PM AMBULATORY - NONE [facility] Nov 09, 2021 03:30 PM AMBULATORY - MEDICINE [facility] Nov 29, 2021 01:30 PM AMBULATORY - MEDICINE [facility] Nov 29, 2021 02:30 PM AMBULATORY - MEDICINE [facility] Dec 07, 2021 04:45 PM AMBULATORY - NONE [facility] Dec 12, 2021 02:30 PM AMBULATORY - SURGERY [facility] Dec 15, 2021 10:00 AM AMBULATORY - MEDICINE [facility] Dec 15, 2021 12:30 PM AMBULATORY - NONE [facility] Dec 15, 2021 12:45 PM AMBULATORY - NONE [facility] Dec 15, 2021 02:30 PM AMBULATORY - SURGERY [facility] Dec 20, 2021 02:00 PM AMBULATORY - NONE [facility] Dec 22, 2021 03:30 AM AMBULATORY - NONE [facility] Jan 02, 2022 05:10 PM AMBULATORY - REHAB MEDICINE [facility] Social History: Smoking Status (Most current) and Tobacco Use (All prior to encounter date) This section includes the most current, and the historical, smoking and tobacco-related health factors from the [place] facility where the Encounter took place.Current Smoking Status This section includes the most current smoking, or tobacco-related health factor, from the [place] facility where the Encounter took place. Date/Time Current Smoking Status [facility] Facility Apr 25, 2021 11:00 AM VA-TOBACCO NEVER USED [place] [facility] Tobacco Use History This section includes a history of the smoking, or tobacco- related health factors, that were collected on or before the date of the Encounter. The data comes from the [place] facility where the Encounter took place. Date/Time Smoking Status/Tobacco Use Comment Facil ity July 09, 2020 02:00 PM VA-TOBACCO FORMER USER [place] [facility] July 09, 2020 02:00 PM VA-TOBACCO QUIT 15 YRS OR MORE [facility] Apr 17, 2019 02:39 PM INPT NO TOBACCO USE IN LAST 30 DAYS [facility] Feb 04, 2019 10:37 AM VA-TOBACCO NEVER USED MINSasha HARVINDER [facility] Oct 15, 2018 02:43 PM INPT NO TOBACCO USE IN LAST 30 DAYS [facility] Oct 13, 2018 11:30 PM INPT NO TOBACCO USE IN LAST 30 DAYS [facility] Sep 02, 2018 05:50 PM INPT NO TOBACCO USE IN LAST 30 DAYS [facility] Aug 12, 2018 07:28 PM INPT NO TOBACCO USE IN LAST 30 DAYS [facility] Jan 30, 2018 03:28 PM VA-TOBACCO FORMER USER [facility] Jan 30, 2018 03:28 PM VA-TOBACCO QUIT 15 YRS OR MORE [facility] May 29, 2017 04:53 PM INPT NO TOBACCO USE IN LAST 30 DAYS [facility] Apr 25, 2017 10:44 PM INPT NO TOBACCO USE IN LAST 30 DAYS [facility] Jan 01, 2017 06:40 PM INPT NO TOBACCO USE IN LAST 30 DAYS [facility] Dec 21, 2016 02:43 PM FORMER TOBACCO USER 7Y OR GREATER [facility] Sep 24, 2013 08:52 AM FORMER TOBACCO USER 7Y OR GREATER [facility] Advance Directives: All historical and current Section Date Range: From patient's date of to the date document was created. This section includes ALL of a patient's completed or amended [place] Advance and Rescinded Directives. The entries below indicate that a directive exists for the patient, but an actual copy is not included with this document. The data comes from all [place] facilities. Date Advance Directives Provider Source May 29, 2017 CLINICAL WARNING CORNELIO FREITAS [facility] May 16, 2017 ADVANCE DIRECTIVE SERENITY BU[facility]ROSTRO [facility] May 16, 2017 ADVANCE DIRECTIVE DISCUSSION [facility] [facility] May 04, 2017 CLINICAL WARNING MAGO DIAMOND [facility] May 04, 2017 CLINICAL WARNING GAEL ROSARIO [facility] Apr 26, 2017 CLINICAL WARNING JENNIFER DE LEON [facility] Jan 01, 2017 CLINICAL WARNING AYDE WELLS [facility] Jun 09, 2004 ADVANCE DIRECTIVE DARYL VILLARREAL [facility] Jun 07, 2004 ADVANCE DIRECTIVE SHERYL HOLLOWAY [facility] Encounter Notes: All associated encounter notes This section contains the clinical notes associated to the Encounter. Date/Time Encounter Note(s) Provider Source Sep 09, 2021 10:58 AM NONVA NOTE: AIRAM MACKTasha [facility] LOCAL TITLE: COMMUNITY CARE-CARE COORDINATION P ADILENE NOTE STANDARD TITLE: NONVA NOTE DATE OF NOTE: SEP 09, 2021@10:58 ENTRY DATE: SEP 09, 2021@10:58:33 AUTHOR: AIRAM MACK EXP COSIGNER: URGENCY: STATUS: COMPLETED PROVIDER CONTACT [facility] Oral Maxillofacial contacted on to discuss [employer] contacted provider with new approved dental cons t [phone]. [employer] does not find listed on this referral Too th number? Action Needed? Yes Please review and advise Requested & Approved Treatment: [id number] Removal of impacted tooth - partially bony [id number] Inhalation of nitrous oxide/analgesia /es/ AIRAM MACK MSA Signed: 09/09/2021 11:01 Receipt Acknowledged By: * AWAITING SIGNATURE * CORNELIO BEAVER * AWAITING SIGNATURE * KENDRA SMITH
--- OUTSIDE RECORDS SUMMARY | 2021-12-23 19:13 | XMS_ITS | Encounter Summary ---
:1945 Author Organization [facility] Address [address] [place] [address] Support Name Relationship Address Phone FRANCES GANDARA Unavailable [address] [place] [address] FRANCES GANDARA Unavailable [address] [place] [address] FRANCES GANDARA Unavailable [address] [place] [address] FRANCES GANDARA Unavailable [address] [place] [address] Insurance Providers: All historical and current Section [...] MEDICARE MEDICARE PART Apr 19, PART A [id number] 800 Whit MOJICA (WNR) (M) A 2007 50A [phone] JESSICA MEDICARE MEDICARE PART Apr 19, PART A [id number] 800 Whit [place] (WNR) (M) A 2007 [id number] [phone] JESSICA Selected Encounter This section includes the information on record at [place] for the Encounter. Date/Time Encounter Type Encounter Description Reason Provider Source Sep 09, 2021 11:02 Outpatient Encounter CARDIOLOGY AM IHE Encounter Template Text not used [...] 20 appointments. The data comes from all [place] treatment facilities. Appointment Date/Time Appointment Type Appointment Facili ty Name Sep 21, 2021 02:30 PM AMBULATORY - SURGERY [facility] Sep 22, 2021 01:00 PM AMBULATORY - NONE [facility] Sep 28, 2021 07:00 AM AMBULATORY - NONE [facility] Sep 28, 2021 01:30 PM AMBULATORY - SURGERY [facility] Oct 11, 2021 02:30 PM AMBULATORY - MEDICINE [facility] Oct 26, 2021 04:45 PM AMBULATORY - NONE [facility] Nov 02, 2021 04:30 PM AMBULATORY - NONE [facility] Nov 07, 2021 06:00 PM AMBULATORY - NONE [facility] Nov 09, 2021 03:30 PM AMBULATORY - MEDICINE [facility] Nov 29, 2021 01:30 PM AMBULATORY - MEDICINE [facility] Nov 29, 2021 02:30 PM AMBULATORY - MEDICINE [facility] Dec 07, 2021 04:45 PM AMBULATORY - NONE [facility] Dec 12, 2021 02:30 PM AMBULATORY - SURGERY [facility] Dec 15, 2021 10:00 AM AMBULATORY - MEDICINE [facility] Dec 15, 2021 12:30 PM AMBULATORY - NONE [facility] Dec 15, 2021 12:45 PM AMBULATORY - NONE [facility] Dec 15, 2021 02:30 PM AMBULATORY - SURGERY [facility] Dec 20, 2021 02:00 PM AMBULATORY - NONE [facility] Dec 22, 2021 03:30 AM AMBULATORY - NONE [facility] Jan 02, 2022 05:10 PM AMBULATORY - REHAB MEDICINE [facility] Social History: Smoking Status (Most current) and Tobacco Use (All prior to encounter date) This section includes the most current, and the historical, smoking and tobacco-related health factors from the [place] facility where the Encounter took place.Current Smoking Status This section includes the most current smoking, or tobacco-related health factor, from the [place] facility where the Encounter took place. Date/Time Current Smoking Status [facility] Apr 25, 2021 11:00 AM VA-TOBACCO NEVER USED [facility] Tobacco Use History This section includes a history of the smoking, or tobacco- related health factors, that were collected on or before the date of the Encounter. The data comes from the [place] facility where the Encounter [...] [facility] Feb 04, 2019 10:37 AM VA-TOBACCO NEVER USED [facility] Oct 15, 2018 02:43 PM INPT [...] 2018 03:28 PM VA-TOBACCO FORMER USER MIN [facility] Jan 30, 2018 03:28 [...] May 29, 2017 CLINICAL WARNING CORNELIO FREITAS [facility] May 16, 2017 ADVANCE DIRECTIVE SERENITY BUENROSTRO [facility] May 16, 2017 ADVANCE DIRECTIVE DISCUSSION [facility] [place] [facility] May 04, 2017 CLINICAL WARNING MAGO DIAMOND [facility] May 04, 2017 CLINICAL WARNING GAEL ROSARIO [facility] Apr 26, 2017 CLINICAL WARNING JENNIFER DE LEON [facility] Jan 01, 2017 CLINICAL WARNING AYDE WELLS [facility] Jun 09, 2004 ADVANCE DIRECTIVE DARYL VILLARREAL [facility] Jun 07, 2004 ADVANCE DIRECTIVE SHERYL HOLLOWAY [facility] Encounter Notes: All associated encounter notes This section contains the clinical notes associated to the Encounter. Date/Time Encounter Note(s) Provider Source Sep 09, 2021 11:02 AM REPORT OF CONTACT: ROMAN BARAHONA [facility] LOCAL TITLE: APPOINTMENT SCHEDULING NOTE ANDERS STANDARD TITLE: REPORT OF CONTACT DATE OF NOTE: SEP 09, 2021@11:02 ENTRY DATE: SEP 09, 2021@11:02:53 AUTHOR: ROMAN BARAHONA EXP COSIGNER: URGENCY: STATUS: COMPLETED Return to Clinic Order needing clarification Activity: 05/12/2021 15:43 New Order entered by Teodora HOFF (NURSE PRACTITIO) Order Text: Return to [facility] CARDIAC DYS [place] 3D on or around ( 2021 ) for a total of 1 appointment(s) Prerequisites: Imaging Orders f/u with echo Imaging was not ordered, order imaging and flag order to author of note Other: Please place Echo consult. Thank you /vinicio/ ROMAN BARAHONA LEAD MSA Signed: 09/09/2021 11:03
--- OUTSIDE RECORDS SUMMARY | 2021-12-23 19:14 | XMS_ITS | Encounter Summary ---
:1945 Author Organization [facility] Address [address] [place] [address] Support Name Relationship Address Phone FRANCES GANDARA Unavailable [address] [place] [address] FRANCES GANDARA Unavailable [address] [place] [address] FRANCES GANDARA Unavailable [address] [place] [address] FRANCES GANDARA Unavailable [address] [place] [address] Insurance Providers: All historical and current Section [...] MEDICARE MEDICARE PART Apr 19, PART A [id number] 800 Wiht MOJICA (WNR) (M) A 2007 [id number] [phone] JESSICA MEDICARE MEDICARE PART Apr 19, PART A [id number] Whit MOJICA (WNR) (M) A 2007 50A [phone] JESSICA Selected Encounter This section includes the information on record at [place] for the Encounter. Date/Time Encounter Type Encounter Description Reason Provider Source Sep 09, 2021 02:55 Outpatient Encounter COMMUNITY CARE PM CONSULT IHE [...] 21, 2021 02:30 PM AMBULATORY - SURGERY [facility] Sep 22, 2021 01:00 PM AMBULATORY - NONE [facility] Sep 28, 2021 07:00 AM AMBULATORY - NONE [facility] Sep 28, 2021 01:30 PM AMBULATORY - SURGERY [facility] Oct 11, 2021 02:30 PM AMBULATORY - MEDICINE [facility] Oct 26, 2021 04:45 PM AMBULATORY - NONE [facility] Nov 02, 2021 04:30 PM AMBULATORY - NONE [facility] Nov 07, 2021 06:00 PM AMBULATORY - NONE [facility] Nov 09, 2021 03:30 PM AMBULATORY - MEDICINE [facility] Nov 29, 2021 01:30 PM AMBULATORY - MEDICINE [facility] Nov 29, 2021 02:30 PM AMBULATORY - MEDICINE [facility] Dec 07, 2021 04:45 PM AMBULATORY - NONE [facility] Dec 12, 2021 02:30 PM AMBULATORY - SURGERY [facility] Dec 15, 2021 10:00 AM AMBULATORY - MEDICINE [facility] Dec 15, 2021 12:30 PM AMBULATORY - NONE [facility] Dec 15, 2021 12:45 PM AMBULATORY - NONE [facility] Dec 15, 2021 02:30 PM AMBULATORY - SURGERY [facility] Dec 20, 2021 02:00 PM AMBULATORY - NONE [facility] Dec 22, 2021 03:30 AM AMBULATORY - NONE [facility] Jan 02, 2022 05:10 PM AMBULATORY - [...] Encounter took place. Date/Time Current Smoking Status [facility] Apr 25, 2021 11:00 AM VA-TOBACCO NEVER USED [facility] Tobacco Use History This section includes a history of the smoking, or tobacco- related health factors, that were collected on or before the date of the Encounter. The data comes from the [place] facility where the Encounter took place. Date/Time Smoking Status/Tobacco Use Comment Facil ity July 09, 2020 02:00 PM VA-TOBACCO FORMER USER [facility] July 09, 2020 02:00 PM VA-TOBACCO QUIT 15 YRS OR MORE [facility] Apr 17, 2019 02:39 PM INPT NO TOBACCO USE IN LAST 30 DAYS [facility] Feb 04, 2019 10:37 AM VA-TOBACCO NEVER USED [facility] Oct 15, 2018 02:43 PM INPT NO TOBACCO USE IN LAST 30 DAYS [facility] Oct 13, 2018 11:30 PM INPT NO TOBACCO USE IN LAST 30 DAYS [facility] Sep 02, 2018 05:50 PM INPT NO TOBACCO USE IN LAST 30 DAYS [facility] Aug 12, 2018 07:28 PM INPT NO TOBACCO USE IN LAST 30 DAYS [facility] Jan 30, 2018 03:28 PM VA-TOBACCO FORMER USER MIN [facility] Jan 30, 2018 03:28 PM VA-TOBACCO QUIT 15 YRS OR MORE [facility] May 29, 2017 04:53 PM INPT NO TOBACCO USE IN LAST 30 DAYS [facility] Apr 25, 2017 10:44 PM INPT NO TOBACCO USE IN LAST 30 DAYS [facility] Jan 01, 2017 06:40 PM INPT NO TOBACCO USE IN LAST 30 DAYS [facility] Dec 21, 2016 02:43 PM FORMER TOBACCO USER 7Y OR GREATER [facility] Sep 24, 2013 08:52 AM FORMER TOBACCO USER 7Y OR GREATER [facility] Advance Directives: All historical and current Section Date Range: From patient's date of to the date document was created. This section includes ALL of a patient's completed or amended MD Advance and Rescinded Directives. The entries below indicate that a directive exists for the patient, but an actual copy is not included with this document. The data comes from all MD facilities. Date Advance Directives Provider Source May 29, 2017 CLINICAL WARNING CORNELIO FREITAS [facility] May 16, 2017 ADVANCE DIRECTIVE SERENITY [facility]STRO [place] [facility] May 16, 2017 ADVANCE DIRECTIVE DISCUSSION [facility] May 04, 2017 CLINICAL WARNING MAGO DIAMOND [facility] May 04, 2017 CLINICAL WARNING GAEL ROSARIO [facility] Apr 26, 2017 CLINICAL WARNING JENNIFER DE LEON [facility] Jan 01, 2017 CLINICAL WARNING AYDE WELLS [facility] Jun 09, 2004 ADVANCE DIRECTIVE DARYL VILLARREAL [facility] Jun 07, 2004 ADVANCE DIRECTIVE SHERYL HOLLOWAY [facility] Encounter Notes: All associated encounter notes This section contains the clinical notes associated to the Encounter. Date/Time Encounter Note(s) Provider Source Sep 09, 2021 02:55 PM NONVA NOTE: DARYL QUIÑONES [facility] LOCAL TITLE: COMMUNITY CARE-CARE COORDINATION P ADILENE NOTE YOLANDA STANDARD TITLE: NONVA NOTE DATE OF NOTE: SEP 09, 2021@14:55 ENTRY DATE: SEP 09, 2021@14:55:11 AUTHOR: DARYL QUIÑONES EXP COSIGNER: URGENCY: STATUS: COMPLETED called CC Line on 09/09/2021 regarding C onsult #[id number]. Alexander stated he is needing to have someone arianna l him back at . alerted [facility] per social split. /vinicio/ DARYL ESTEVEZ ADVANCED MSA Signed: 09/09/2021 14:57 Receipt Acknowledged By: * AWAITING SIGNATURE * FRANCES PALOMINO
--- OUTSIDE RECORDS SUMMARY | 2021-12-23 19:15 | XMS_ITS | Encounter Summary ---
:1945 Author Organization [facility] Address [address] [place] [address] Support Name Relationship Address Phone FRANCES GANDARA Unavailable [address] [place] [address] FRANCES GANDARA Unavailable [address] [place] [address] FRANCES GANDARA Unavailable [address] [place] [address] FRANCES GANDARA Unavailable [address] [place] [address] Insurance Providers: All historical and current Section [...] MEDICARE MEDICARE PART Apr 19, PART A [id number] 800 Whit MOJICA (WNR) (M) A 2007 50A [phone] JESSICA MEDICARE MEDICARE PART Apr 19, PART A [id number] 800 Whit MOJICA (WNR) (M) A 2007 [id number] [phone] JESSICA Selected Encounter This section includes the information on record at [place] for the Encounter. Date/Time Encounter Type Encounter Description Reason Provider Source Mar 09, 2021 12:00 Outpatient Encounter COMMUNITY CARE AM [...] The data comes from all [place] treatment [facility]. Appointment Date/Time Appointment Type Appointment Facili ty Name Mar 10, 2021 10:45 AM AMBULATORY - NONE [facility] Mar 17, 2021 11:30 AM AMBULATORY - NONE [facility] Mar 22, 2021 02:30 PM AMBULATORY - NONE [facility] Mar 23, 2021 07:00 AM AMBULATORY - NONE [facility] Mar 28, 2021 02:00 PM AMBULATORY - MEDICINE [facility] Mar 31, 2021 07:00 AM AMBULATORY - NONE [facility] Mar 31, 2021 02:00 PM AMBULATORY - REHAB [facility] Apr 07, 2021 01:00 PM AMBULATORY - SURGERY [facility] Apr 15, 2021 01:20 PM AMBULATORY - SURGERY [facility] Apr 25, 2021 11:00 AM AMBULATORY - MEDICINE [facility] Apr 28, 2021 09:00 AM AMBULATORY - NONE [facility] Apr 28, 2021 09:45 AM AMBULATORY - NONE [facility] Apr 28, 2021 10:00 AM AMBULATORY - MEDICINE [facility] May 10, 2021 03:20 PM AMBULATORY - NONE [facility] May 11, 2021 11:45 AM AMBULATORY - MEDICINE [facility] May 11, 2021 12:00 PM AMBULATORY - MEDICINE [facility] May 11, 2021 01:00 PM AMBULATORY - MEDICINE [facility] May 19, 2021 02:30 PM AMBULATORY - NONE [facility] May 19, 2021 04:00 PM AMBULATORY - MEDICINE [facility] May 20, 2021 09:00 AM AMBULATORY - NONE [facility] Active, Pending, and Scheduled Orders [...] from all [facility]. Test Date/Time Test Type Test Details Facility [...] Reference Range Comment Mar 01, 2021 09:31 [facility] EXTRA MINT TUBE Specimen Type: PLASMA AM No comment enter ed. Ordering Provid er: AMARJIT OWEN Report Released Date/Time: Mar 01, 2021 09:31 AM Reporting Lab: [facility] [address] [facility] [id number] Performing Lab: [facility] [id number] EXTRA MINT TUBE RECEIVED Mar 01, 2021 09:31 [facility] C-REACTIVE PROTEIN Specim en Type: SERUM AM No comment enter ed. Ordering Provid er: AMARJIT OWEN Report Released Date/Time: Mar 01, 2021 09:12 AM Reporting Lab: [facility] [address] [facility] [id number] Performing Lab: [facility] [id number] C-REACTIVE PROTEIN 9.22 H <5.00 Mar 01, 2021 09:31 AM [facility] CBC & DIFF Specim en Type: BLOOD Comment: Automa sarthak Differential Performed Ordering Provid er: AMARJIT OWEN Report Released Date/Time: Mar 01, 2021 09:12 AM Reporting Lab: [facility] [id number] Performing Lab: [facility] [address] WBC 5.58 4.0-11.0 RBC 4.90 4.6-6.2 HGB [...] 0.02 0-0.1 Mar 01, 2021 09:31 AM [facility] HEMOGLOBIN A1C Specim en Type: BLOOD No comment enter ed. Ordering Provid er: CARIDAD DENNIS Report Released Date/Time: Mar 01, 2021 04:01 PM Reporting Lab: [facility] [address] [facility] [address] Performing Lab: [facility] [address] [facility] [address] HEMOGLOBIN A1C 8.0 H 4.0-6.0 Social History: [...] took place. Date/Time Smoking Status/Tobacco Use Comment [facility] July 09, 2020 02:00 PM VA-TOBACCO QUIT 15 YRS OR MORE [facility] Apr 17, 2019 02:39 PM INPT NO TOBACCO USE IN LAST 30 DAYS [facility] Feb 04, 2019 10:37 AM VA-TOBACCO NEVER USED [facility] Oct 15, 2018 02:43 PM INPT NO TOBACCO USE IN LAST 30 DAYS [facility] Oct 13, 2018 11:30 PM INPT NO TOBACCO USE IN LAST 30 DAYS [facility] Sep 02, 2018 05:50 PM INPT NO TOBACCO USE IN LAST 30 DAYS [facility] Aug 12, 2018 07:28 PM INPT NO TOBACCO USE IN LAST 30 DAYS [facility] Jan 30, 2018 03:28 PM VA-TOBACCO FORMER USER [facility] Jan 30, 2018 03:28 PM VA-TOBACCO QUIT 15 YRS OR MORE [facility] May 29, 2017 04:53 PM INPT NO TOBACCO USE IN LAST 30 DAYS [facility] Apr 25, 2017 10:44 PM INPT NO TOBACCO USE IN LAST 30 DAYS [facility] Jan 01, 2017 06:40 PM INPT NO TOBACCO USE IN LAST 30 DAYS [facility] Dec 21, 2016 02:43 PM FORMER TOBACCO USER 7Y OR GREATER [facility] Sep 24, 2013 08:52 AM FORMER TOBACCO USER 7Y OR GREATER [facility] Advance Directives: All historical and [...] May 16, 2017 ADVANCE DIRECTIVE SERENITY BUENROSTRO [facility] May 16, 2017 ADVANCE DIRECTIVE DISCUSSION SERENITY BUENROSTRO [place] [facility] May 04, 2017 CLINICAL WARNING MAGO DIAMOND [facility] May 04, 2017 CLINICAL WARNING GAEL ROSARIO [facility] Apr 26, 2017 CLINICAL WARNING JENNIFER DE LEON [facility] Jan 01, 2017 CLINICAL WARNING AYDE WELLS [facility] Jun 09, 2004 ADVANCE DIRECTIVE DARYL VILLARREAL [facility] Jun 07, 2004 ADVANCE DIRECTIVE SHERYL HOLLOWAY [facility] Radiology Reports: +/- 30 days [...] EXTREMITY VEIN (UNILATERAL) ( P): XIAO HUGGINS [facility] XAVIERHEATH MONTEJOSydney GRAFF [phone] [birth year] 8 M Exm Date: MAR 01, 2021@09:44 Req Phys: AMARJIT OWEN Loc: [facility] DEPT WALK-IN (Re Img Loc: Ultrasound Imaging Service: Unknown (Case [id number] COMPLETE) US EXTREMITY VEINS UNILAT (U S Detailed) CPT:77480 Proc Modifiers : LEFT Reason for Study: [...] pager listed below: User placing orders pager: [phone] LAST CREATININE 0.6 L (12/15/20) Report Status: Verified Date Reported: MAR 01, 2021 Date Verified: MAR 01, 2021 Landcare Officer E-Sig:/ES/XIAO HUGGINS MD Report: Duplex Ultrasound of [...] Primary Interpreting Staff: XIAO HUGGINS MD, RADIOLOGIST (Landcare Officer) Primary Interpreting Resident: JANNET JOSEPH, [employer] [facility] Encounter Notes: All associated encounter notes This section contains the clinical notes associated to the Encounter. Date/Time Encounter Note(s) Provider Source Mar 09, 2021 12:00 AM NONVA CONSULT: PROCESS[place] [facility] LOCAL TITLE: COMMUNITY CARE CONSULT RESULT NOTE STANDARD TITLE: NONVA CONSULT DATE OF NOTE: MAR 09, 2021 ENTRY DATE: SEP 14, 2 022@12:11:24 AUTHOR: DERRICK YBARRA EXP COSIGNER: URGENCY: STATUS: COMPLETED [employer] - Scanned Document [facility]ER[facility] APPOINTMENT INFORMATION Documentation received from non-VA provider and scanned into [employer]. /vinicio/ DERRICK PROCESS Signed: 09/14/2021 12:11
--- OUTSIDE RECORDS SUMMARY | 2021-12-23 19:17 | XMS_ITS | Encounter Summary ---
:1945 Author Organization [facility] Address [address] [place] [address] Support Name Relationship Address Phone FRANCES GANDARA Unavailable [address] [place] [address] FRANCES GANDARA Unavailable [address] [place] [address] FRANCES GANDARA Unavailable [address] [place] [address] FRANCES GANDARA Unavailable [address] [place] [address] Insurance Providers: All historical and current Section [...] MEDICARE MEDICARE PART Apr 19, PART A [id number] Whit MOJICA (WNR) (M) A 2007 50A [phone] JESSICA MEDICARE MEDICARE PART Apr 19, PART A [id number] 800 Whit [place] (WNR) (M) A 2007 [id number] [phone] JESSICA Selected Encounter This section includes the information on record at [place] for the Encounter. Date/Time Encounter Type Encounter Reason Provider Source Description Sep 15, 2021 10:03 Outpatient TELEPHONE/ANCILLARY Sasha GOODE M AM Encounter IHE Encounter Template Text not [...] 21, 2021 02:30 PM AMBULATORY - SURGERY [facility] Sep 22, 2021 01:00 PM AMBULATORY - NONE [facility] Sep 28, 2021 07:00 AM AMBULATORY - NONE [facility] Sep 28, 2021 01:30 PM AMBULATORY - SURGERY [facility] Oct 11, 2021 02:30 PM AMBULATORY - MEDICINE [facility] Oct 26, 2021 04:45 PM AMBULATORY - NONE [facility] Nov 02, 2021 04:30 PM AMBULATORY - NONE [facility] Nov 07, 2021 06:00 PM AMBULATORY - NONE [facility] Nov 09, 2021 03:30 PM AMBULATORY - MEDICINE [facility] Nov 29, 2021 01:30 PM AMBULATORY - MEDICINE [facility] Nov 29, 2021 02:30 PM AMBULATORY - MEDICINE [facility] Dec 07, 2021 04:45 PM AMBULATORY - NONE [facility] Dec 12, 2021 02:30 PM AMBULATORY - SURGERY [facility] Dec 15, 2021 10:00 AM AMBULATORY - MEDICINE [facility] Dec 15, 2021 12:30 PM AMBULATORY - NONE [facility] Dec 15, 2021 12:45 PM AMBULATORY - NONE [facility] Dec 15, 2021 02:30 PM AMBULATORY - SURGERY [facility] Dec 20, 2021 02:00 PM AMBULATORY - NONE [facility] Dec 22, 2021 03:30 AM AMBULATORY - NONE [facility] Jan 02, 2022 05:10 PM AMBULATORY - REHAB [facility]ICINE [facility] Social History: Smoking Status (Most current) and Tobacco Use (All prior to encounter date) This section includes the most current, and the historical, smoking and tobacco-related health factors from the [place] facility where the Encounter took place.Current Smoking Status This section includes the most current smoking, or tobacco-related health factor, from the [place] facility where the Encounter took place. Date/Time Current Smoking Status [facility] Apr 25, 2021 11:00 AM VA-TOBACCO NEVER USED [facility] Tobacco Use History This section includes a history of the smoking, or tobacco- related health factors, that were collected on or before the date of the Encounter. The data comes from the [place] facility where the Encounter took place. Date/Time Smoking Status/Tobacco Use Comment Facil ity July 09, 2020 02:00 PM [facility] July 09, 2020 02:00 PM VA-TOBACCO QUIT 15 YRS OR MORE [facility] Apr 17, 2019 02:39 PM INPT NO TOBACCO USE IN LAST 30 DAYS [facility] Feb 04, 2019 10:37 AM VA-TOBACCO NEVER USED MINN [facility] Oct 15, 2018 02:43 PM INPT NO TOBACCO USE IN LAST 30 DAYS [facility] Oct 13, 2018 11:30 PM INPT NO TOBACCO USE IN LAST 30 DAYS [facility] Sep 02, 2018 05:50 PM INPT NO TOBACCO USE IN LAST 30 DAYS [facility] Aug 12, 2018 07:28 PM INPT NO TOBACCO USE IN LAST 30 DAYS [facility] Jan 30, 2018 03:28 PM VA-TOBACCO FORMER USER MIN [facility] Jan 30, 2018 03:28 PM VA-TOBACCO QUIT 15 YRS OR MORE [facility] May 29, 2017 04:53 PM INPT NO TOBACCO USE IN LAST 30 DAYS [facility] Apr 25, 2017 10:44 PM INPT NO TOBACCO USE IN LAST 30 DAYS [facility] Jan 01, 2017 06:40 PM INPT NO TOBACCO USE IN LAST 30 DAYS [facility] Dec 21, 2016 02:43 PM FORMER TOBACCO USER 7Y OR GREATER [facility] Sep 24, 2013 08:52 AM FORMER TOBACCO USER 7Y OR GREATER [facility] Advance Directives: All historical and current [...] May 29, 2017 CLINICAL WARNING CORNELIO FREITAS [facility] May 16, 2017 ADVANCE DIRECTIVE SERENITY BUENROSTRO [facility] May 16, 2017 ADVANCE DIRECTIVE DISCUSSION SERENITY [place]O [place] [facility] May 04, 2017 CLINICAL WARNING MAGO DIAMOND [facility] May 04, 2017 CLINICAL WARNING GAEL ROSARIO [facility] Apr 26, 2017 CLINICAL WARNING JENNIFER DE LEON [facility] Jan 01, 2017 CLINICAL WARNING WELLSAYDE HAGEN [facility] Jun 09, 2004 ADVANCE DIRECTIVE DARYL VILLARREAL [facility] Jun 07, 2004 ADVANCE DIRECTIVE HOLLOWAY,SHERYL ANN [facility] Encounter Notes: All associated encounter notes This section contains the clinical notes associated to the Encounter. Date/Time Encounter Note(s) Provider Source Sep 15, 2021 10:31 AM SATP MEDICATION MGT NOTE: FRANCES GOODE [facility] LOCAL TITLE: CHRONIC OPIOID MANAGEMENT PROGRAM STANDARD TITLE: SATP MEDICATION MGT NOTE DATE OF NOTE: SEP 15, 2021@10:31 ENTRY DATE: SEP 15, 2021@10:31:53 AUTHOR: FRANCES GOODE EXP COSIGNER: URGENCY: STATUS: COMPLETED Medication: Oxycodone 5mg/Acetaminophen 325mg Due to mail out on (date): due now Date patient was last seen by Primary Opioid Pre scriber: 07/29/21 Date of last Prescription Monitoring Program in quiry: 09/15/21 MEDD (as prescribed): 45 (Morphine Equivalent Daily [...] release date: 07/14/2021@19:04:58 Days sup ply: 30 /vinicio/ Frances Goode LPN Staff Nurse Signed: 09/15/2021 10:32 Receipt Acknowledged By: * AWAITING SIGNATURE * CARIDAD DENNIS Sep 15, 2021 10:04 AM ACCOUNTING OF DISCLOSURES NOTE: RHONDA GOODE [facility] LOCAL TITLE: STATE PRESCRIPTION DRUG MONITORING PROGRAM STANDARD TITLE: ACCOUNTING OF DISCLOSURES NOTE DATE OF NOTE: SEP 15, 2021@10:04 ENTRY DATE: SEP 15, 2021@10:09:39 AUTHOR: FRANCES GOODE EXP COSIGNER: URGENCY: STATUS: COMPLETED Documentation of contact with State Drug Monitor ing Program (DMP) Date of contact: Aug [facility] contacted: Lawson Nature of contact: Personal identifying rohan fournier as required to access the State Monitoring Program database. Purpose of contact: Medicati on Reconciliation and clinical care of the patient. Non-VA fills: 06/30/21 #90 oxycodone 5mg tab 06/20/21 #90 oxycodone 5mg tab 06/17/21 #60 pregabalin 100mg cap 06/16/21 #40 oxycodone-acetaminophen 5-325 Prescribed by: -Starr Manuel Np -Do Kassy George MD Related to NH stay. /vinicio/ Frances Goode LPN Staff Nurse Signed: 09/15/2021 10:30
--- OUTSIDE RECORDS SUMMARY | 2021-12-23 19:19 | XMS_ITS | Encounter Summary ---
:1945 Author Organization [facility] Address [address] [place] [address] Support Name Relationship Address Phone FRANCES GANDARA Unavailable [address] [place] [address] FRANCES GANDARA Unavailable [address] [place] [address] FRANCES GANDARA Unavailable [address] [place] [address] FRANCES GANDARA Unavailable [address] [place] [address] Insurance Providers: All historical and current Section [...] MEDICARE MEDICARE PART Apr 19, PART A [id number] 800 Whit MOJICA (WNR) (M) A 2007 50A [phone] JESSICA MEDICARE MEDICARE PART Apr 19, PART A [id number] 800 Whit [place] (WNR) (M) A 2007 [id number] [phone] JESSICA Selected Encounter This section includes the information on record at [place] for the Encounter. Date/Time Encounter Type Encounter Description Reason Provider Source Sep 08, 2021 12:00 Outpatient Encounter [facility]ITY [facility]ARE AM [...] 21, 2021 02:30 PM AMBULATORY - SURGERY [facility] Sep 22, 2021 01:00 PM AMBULATORY - NONE [facility] Sep 28, 2021 07:00 AM AMBULATORY - NONE [facility] Sep 28, 2021 01:30 PM AMBULATORY - SURGERY [facility] Oct 11, 2021 02:30 PM AMBULATORY - MEDICINE [facility] Oct 26, 2021 04:45 PM AMBULATORY - NONE [facility] Nov 02, 2021 04:30 PM AMBULATORY - NONE [facility] Nov 07, 2021 06:00 PM AMBULATORY - NONE [facility] Nov 09, 2021 03:30 PM AMBULATORY - MEDICINE [facility] Nov 29, 2021 01:30 PM AMBULATORY - MEDICINE [facility] Nov 29, 2021 02:30 PM AMBULATORY - MEDICINE [facility] Dec 07, 2021 04:45 PM AMBULATORY - NONE [facility] Dec 12, 2021 02:30 PM AMBULATORY - SURGERY [facility] Dec 15, 2021 10:00 AM AMBULATORY - MEDICINE [facility] Dec 15, 2021 12:30 PM AMBULATORY - NONE [facility] Dec 15, 2021 12:45 PM AMBULATORY - NONE [facility] Dec 15, 2021 02:30 PM AMBULATORY - SURGERY [facility] Dec 20, 2021 02:00 PM AMBULATORY - NONE [facility] Dec 22, 2021 03:30 AM AMBULATORY - NONE [facility] Jan 02, 2022 05:10 PM AMBULATORY - [...] took place. Date/Time Current Smoking Status [facility] Apr 25, 2021 11:00 AM VA-TOBACCO NEVER USED TROY BLANTON [facility] Tobacco Use History This section includes a history of the smoking, or tobacco- related health factors, that were collected on or before the date of the Encounter. The data comes from the [place] facility where the Encounter took place. Date/Time Smoking Status/Tobacco Use Comment Facil ity July 09, 2020 02:00 PM VA-TOBACCO FORMER USER MIN [place] [facility] July 09, 2020 02:00 PM VA-TOBACCO QUIT 15 YRS OR MORE [facility] Apr 17, 2019 02:39 PM INPT NO TOBACCO USE IN LAST 30 DAYS [facility] Feb 04, 2019 10:37 AM VA-TOBACCO NEVER USED MINSasha HARVINDER [facility] Oct 15, 2018 02:43 [...] 2018 03:28 PM VA-TOBACCO FORMER USER MIN [facility] Jan 30, 2018 [...] May 29, 2017 CLINICAL WARNING CORNELIO FREITAS [facility] May 16, 2017 ADVANCE DIRECTIVE SERENITY [facility] [place] [facility] May 16, 2017 ADVANCE DIRECTIVE DISCUSSION [facility] [place] [facility] May 04, 2017 CLINICAL WARNING MAGO DIAMOND [facility] May 04, 2017 CLINICAL WARNING GAEL ROSARIO [facility] Apr 26, 2017 CLINICAL WARNING JENNIFER DE LEON [facility] Jan 01, 2017 CLINICAL WARNING WELLSAYDE HAGEN [facility] Jun 09, 2004 ADVANCE DIRECTIVE DARYL VILLARREAL [facility] Jun 07, 2004 ADVANCE DIRECTIVE SHERYL HOLLOWAY [facility] Encounter Notes: All associated encounter notes This section contains the clinical notes associated to the Encounter. Date/Time Encounter Note(s) Provider Source Sep 08, 2021 12:00 AM NONVA [facility] LOC[facility] TITLE: COMMUNITY CARE CONSULT RESULT PODI ATRY STANDARD TITLE: NONVA CONSULT DATE OF NOTE: SEP 08, 2021 ENTRY DATE: SEP 20 022@12:48:46 AUTHOR: DERRICK YBARRA EXP COSIGNER: URGENCY: STATUS: COMPLETED [employer] - Scanned Document COMMUNITY CARE-PODIATRY [facility] APPOINTMENT INFORMATION Documentation received from non-VA provider and scanned into [employer]. /vinicio/ DERRICK PROCESS Signed: 09/20/2021 12:48
--- OUTSIDE RECORDS SUMMARY | 2021-12-23 19:20 | XMS_ITS | Encounter Summary ---
:1945 Author Organization [facility] Address [address] [place] [address] Support Name Relationship Address Phone FRANCES GANDARA Unavailable [address] [place] [address] FRANCES GANDARA Unavailable [address] [place] [address] FRANCES GANDARA Unavailable [address] [place] [address] FRANCES GANDARA Unavailable [address] [place] [address] Insurance Providers: All historical and current Section [...] MEDICARE MEDICARE PART Apr 19, PART A [id number] 800 Whit MOJICA (WNR) (M) A 2007 50A [phone] JESSICA MEDICARE MEDICARE PART Apr 19, PART A [id number] 800 Whit MOJICA (WNR) (M) A 2007 [id number] [phone] JESSICA Selected Encounter This section includes the information on record at [place] for the Encounter. Date/Time Encounter Type Encounter Description Reason Provider Source Sep 09, 2021 12:00 Outpatient Encounter COMMUNITY CARE [...] 21, 2021 02:30 PM AMBULATORY - SURGERY [facility] Sep 22, 2021 01:00 PM AMBULATORY - NONE [facility] Sep 28, 2021 07:00 AM AMBULATORY - NONE [facility] Sep 28, 2021 01:30 PM AMBULATORY - SURGERY [facility] Oct 11, 2021 02:30 PM AMBULATORY - MEDICINE [facility] Oct 26, 2021 04:45 PM AMBULATORY - NONE [facility] Nov 02, 2021 04:30 PM AMBULATORY - NONE [facility] Nov 07, 2021 06:00 PM AMBULATORY - NONE [facility] Nov 09, 2021 03:30 PM AMBULATORY - MEDICINE [facility] Nov 29, 2021 01:30 PM AMBULATORY - MEDICINE [facility] Nov 29, 2021 02:30 PM AMBULATORY - MEDICINE [facility] Dec 07, 2021 04:45 PM AMBULATORY - NONE [facility] Dec 12, 2021 02:30 PM AMBULATORY - SURGERY [facility] Dec 15, 2021 10:00 AM AMBULATORY - MEDICINE [facility] Dec 15, 2021 12:30 PM AMBULATORY - NONE [facility] Dec 15, 2021 12:45 PM AMBULATORY - NONE [facility] Dec 15, 2021 02:30 PM AMBULATORY - SURGERY [facility] Dec 20, 2021 02:00 PM AMBULATORY - NONE [facility] Dec 22, 2021 03:30 AM AMBULATORY - NONE [facility] Jan 02, 2022 05:10 PM AMBULATORY - REHAB MEDICINE [facility] Social History: Smoking Status (Most [...] the Encounter. The data comes from the [place] facility where the Encounter [...] 10:37 AM VA-TOBACCO NEVER USED MINSasha HARVINDER [facility] Oct 15, 2018 [...] 2018 03:28 PM VA-TOBACCO FORMER USER MIN [facility] Jan 30, 2018 03:28 PM VA-TOBACCO QUIT [...] May 16, 2017 ADVANCE DIRECTIVE SERENITY [facility]STRO [place] [facility] May 16, 2017 ADVANCE DIRECTIVE DISCUSSION [facility] [place] [facility] May 04, 2017 CLINICAL WARNING MAGO DIAMOND [facility] May 04, 2017 CLINICAL WARNING GAEL ROSARIO [facility] Apr 26, 2017 CLINICAL WARNING JENNIFER DE LEON [facility] Jan 01, 2017 CLINICAL WARNING WELLSAYDE HAGEN [facility] Jun 09, 2004 ADVANCE DIRECTIVE DARYL VILLARREAL [facility] Jun 07, 2004 ADVANCE DIRECTIVE SHERYL HOLLOWAY [facility] Encounter Notes: All associated encounter notes This section contains the clinical notes associated to the Encounter. Date/Time Encounter Note(s) Provider Source Sep 09, 2021 12:00 AM NONVA [facility] TITLE: COMMUNITY CARE CONSULT RESULT PODI ATRY STANDARD TITLE: NONVA CONSULT DATE OF NOTE: SEP 09, 2021 ENTRY DATE: SEP 20 022@12:50:15 AUTHOR: DERRICK YBARRA EXP COSIGNER: URGENCY: STATUS: COMPLETED [employer] - Scanned Document COMMUNITY CARE-PODIATRY [facility] APPOINTMENT INFORMATION Documentation received from non-VA provider and scanned into [employer]. /vinicio/ DERRICK PROCESS Signed: 09/20/2021 12:50
--- OUTSIDE RECORDS SUMMARY | 2021-12-23 19:23 | XMS_ITS | Encounter Summary ---
:1945 Author Organization [facility] Address [address] [place] [address] Support Name Relationship Address Phone FRANCES GANDARA Unavailable [address] [place] [address] FRANCES GANDARA Unavailable [address] [place] [address] FRANCES GANDARA Unavailable [address] [place] [address] FRANCES GANDARA Unavailable [address] [place] [address] Insurance Providers: All historical and current Section [...] MEDICARE MEDICARE PART Apr 19, PART A [id number] Whit MOJICA (WNR) (M) A 2007 50A [phone] JESSICA MEDICARE MEDICARE PART Apr 19, PART A [id number] 800 Whit [place] (WNR) (M) A 2007 [id number] [phone] JESSICA Selected Encounter This section includes the information on record at [place] for the Encounter. Date/Time Encounter Type Encounter Description Reason Provider Source Sep 22, 2021 04:54 Outpatient Encounter TELEPHONE TRIAGE Sydney ROBBINS MAI PM IHE Encounter Template Text not used by [place] Plan of Treatment: Future Appointments (+ 6 [...] 20 appointments. The data comes from all [place] treatment facilities. Appointment Date/Time Appointment Type Appointment Facili ty Name Sep 28, 2021 07:00 AM AMBULATORY - NONE [facility] Sep 28, 2021 01:30 PM AMBULATORY - SURGERY [facility] Oct 11, 2021 02:30 PM AMBULATORY - MEDICINE [facility] Oct 26, 2021 04:45 PM AMBULATORY - NONE [facility] Nov 02, 2021 04:30 PM AMBULATORY - NONE [facility] Nov 07, 2021 06:00 PM AMBULATORY - NONE [facility] Nov 09, 2021 03:30 PM AMBULATORY - MEDICINE [facility] Nov 29, 2021 01:30 PM AMBULATORY - MEDICINE [facility] Nov 29, 2021 02:30 PM AMBULATORY - MEDICINE [facility] Dec 07, 2021 04:45 PM AMBULATORY - NONE [facility] Dec 12, 2021 02:30 PM AMBULATORY - SURGERY [facility] Dec 15, 2021 10:00 AM AMBULATORY - MEDICINE [facility] Dec 15, 2021 12:30 PM AMBULATORY - NONE [facility] Dec 15, 2021 12:45 PM AMBULATORY - NONE [facility] Dec 15, 2021 02:30 PM AMBULATORY - SURGERY [facility] Dec 20, 2021 02:00 PM AMBULATORY - NONE [facility] Dec 22, 2021 03:30 AM AMBULATORY - NONE [facility] Jan 02, 2022 05:10 PM AMBULATORY - REHAB MEDICINE [facility] Jan 03, 2022 05:00 PM AMBULATORY - REHAB MEDICINE [facility] Jan 05, 2022 04:00 PM AMBULATORY - NONE [facility] Social History: Smoking Status (Most current) and Tobacco Use (All prior to encounter date) This section includes the most current, and the historical, smoking and tobacco-related health factors from the [place] facility where the Encounter took place.Current Smoking Status This section includes the most current smoking, or tobacco-related health factor, from the [place] facility where the Encounter took place. Date/Time Current Smoking Status [facility] Facility Apr 25, 2021 11:00 AM VA-TOBACCO NEVER USED [facility] Tobacco Use History This section includes a history of the smoking, or tobacco- related health factors, that were collected on or before the date of the Encounter. The data comes from the [place] facility where the Encounter took place. Date/Time Smoking Status/Tobacco Use Comment Facil ity July 09, 2020 02:00 PM [facility] July 09, 2020 02:00 PM VA-TOBACCO QUIT 15 YRS OR MORE [facility] Apr 17, 2019 02:39 PM INPT NO TOBACCO USE IN LAST 30 DAYS [facility] Feb 04, 2019 10:37 AM VA-TOBACCO NEVER USED [facility] Oct 15, 2018 02:43 PM INPT NO TOBACCO USE IN LAST 30 DAYS [facility] Oct 13, 2018 11:30 PM INPT NO TOBACCO USE IN LAST 30 DAYS [facility] Sep 02, 2018 05:50 PM INPT NO TOBACCO USE IN LAST 30 DAYS [facility] Aug 12, 2018 07:28 PM INPT NO TOBACCO USE IN LAST 30 DAYS [facility] Jan 30, 2018 03:28 PM VA-TOBACCO FORMER USER [facility] Jan 30, 2018 03:28 PM VA-TOBACCO QUIT 15 YRS OR MORE [facility] May 29, 2017 04:53 PM INPT NO TOBACCO USE IN LAST 30 DAYS [facility] Apr 25, 2017 10:44 PM INPT NO TOBACCO USE IN LAST 30 DAYS [facility] Jan 01, 2017 06:40 PM INPT NO TOBACCO USE IN LAST 30 DAYS [facility] Dec 21, 2016 02:43 PM FORMER TOBACCO USER 7Y OR GREATER [facility] Sep 24, 2013 08:52 AM FORMER TOBACCO USER 7Y OR GREATER [facility] Advance Directives: All historical and current Section Date Range: From patient's date of to the date document was created. This section includes ALL of a patient's completed or amended [place] Advance and Rescinded Directives. The entries below indicate that a directive exists for the patient, but an actual copy is not included with this document. The data comes from all [place] facilities. Date Advance Directives Provider Source May 29, 2017 CLINICAL WARNING [facility] May 16, 2017 ADVANCE DIRECTIVE SERENITY BUENROSTRO [facility] May 16, 2017 ADVANCE DIRECTIVE DISCUSSION [place]O [place] [facility] May 04, 2017 CLINICAL WARNING MAGO DIAMOND [facility] May 04, 2017 CLINICAL WARNING GAEL ROSARIO [facility] Apr 26, 2017 CLINICAL WARNING MOISESJENNIFER P [facility] Jan 01, 2017 CLINICAL WARNING WELLS,AYDE T [facility] Jun 09, 2004 ADVANCE DIRECTIVE DARYL VILLARREAL [facility] Jun 07, 2004 ADVANCE DIRECTIVE SHERYL HOLLOWAY [facility] Encounter Notes: All associated encounter notes This section contains the clinical notes associated to the Encounter. Date/Time Encounter Note(s) Provider Source Sep 22, 2021 04:54 PM RN PROGRESS NOTE: JULIAN FREY [facility] LOCAL TITLE: CCC: CLINICAL TRIAGE STANDARD TITLE: RN PROGRESS NOTE DATE OF NOTE: SEP 22, 2021@16:54:21 ENTRY DATE: SEP 22, 2021@16:54:21 AUTHOR: JULIAN FREY EXP COSIGNER: URGENCY: STATUS: COMPLETED CCC: CLINICAL TRIAGE Has ADDENDA Patient Demographics Patient Name: JESSICA MOJICA Patient Primary [address]: [address] [place] [address] <>[place] [address] Patient Primary Phone: [phone] Patient : 1945 SSN: [id number] Patient Age: 75 Caller Relationship: Self Emergency Contactx: FRANCES GANDARA Emergency Contact Phonex: Triage Summary Nurse Summary: Clinical Contact/Call Center Coronavirus Disease 2019 (COVID-19) Screen, jorge. June 2020 DIAGNOSIS AND TESTING STATUS: ?Has [place] been diagnosed with COVID-19: () Yes* Date: (continue screening) (x) No (Continue Screening) Comment(s): ?Is waiting for COVID-19 test results: () Yes (Continue Screening) (x) No (Continue Screening) Comment: SCREEN: ?Signs and Symptoms: a. Fever or chills: () Yes Check all that apply: () Fever () Chills (x) No Comment(s): b. New or worsening cough or shortness of breat h: () Yes Check all that apply: () Cough () Shortness of breath (Dyspnea) (x) No Comment(s): c. Any cold or flu-like symptoms: () Yes Check all that apply: () Cold like symptoms () Runny Nose (Rhinorrhea) () Sore Throat () Flu-like symptoms () Fatigue () Muscle Pain (Myalgia) (x) No Comment(s): d. New onset diarrhea, nausea or vomiting: () Yes Check all that apply: () Diarrhea () Nausea () Vomiting (x) No Comment(s): e. New onset headache, loss of taste or loss of smell () Yes Check all that apply: () Headache () Loss of taste () Loss of smell (x) No Comment(s): EXPOSURE: ?Exposure (within 6 feet for more than 15 minut es) in the last two weeks (14 days) to someone with known or ashwin pected case of COVID-19: () Yes (x) No Comment(s): ?SCREEN RESULT: Any symptom or exposure= positi ve screen () POSITIVE SCREEN: Patient has a Positive symp joon and/or exposure. Follow-up required. (x) Negative Screen Vaccinated: Yes * NURSES NOTES PATIENT CONCERN/DURATION/ONSET: c/o bila teral knee pain, right more than left. [place] states onset of two weeks now . Pain at the worst is in the mornings, 7/. states improvement durin g the day. denies any injuries, trauma, redness, sw elling, tenderness, severe pain, and inability to ambulate. WHAT HAS PATIENT TRIED TO TREAT THE SYMP TOMS: [place] has taken Oxycodone with relief, Topical creams and Lidocaine patch with some relief HISTORY/PREVIOUS TREATMENT: Arthritis, Mendez marie rn WHAT IS PATIENT GOAL FOR THE CALL: Evaluation of knee pains, requesting for steroid injections DID YOU CONSIDER USING CCC LIP (TELE or VVC): SKY PROTOCOL MANAGER DISPOSITION: Triage nurse recommendati on is to be in contact with PACT within 2 weeks because of symptoms duration . No appts per [facility] MSA, deferring to PACT for scheduling per SOP. Educated on initiating home cares as out lined in the educational log section below for the interim. Advised t o call back to the Call Center immediately if endorses new or worsening symptoms, all which was verbalized to the and listed b elow. Informed that by not following the recom mended advice could make symptoms worse, or even life threatening. Discussed with verbal unders tanding of when to seek ER/911 eval. can be reached at verified call back number [phone]. (Caller could accurately sum marize the agreed upon plan of care as discussed in the education log portion of this note.) Per policy, automated recommendations for an ?ap pointment? indicates an interaction (virtual or in-person) with the care team. Conducted triage/discussed symptoms Conducted COVID Screening COVID Screening Results: Negative Chief Complaint: Knee Pain (both knees) System WHEN: Within 3 Days Nurse's Recommendation / WHEN: Within 2 Weeks System WHERE: Clinic Nurse's Recommendation / WHERE: Clinic/[facility] Patient Disposition Patient/Caregiver agrees to plan of care: Yes Patient WHERE: Appointment Summary of Actions Referred patient for in-person appt. Transferred patient to Sched & Admin-Apt Other - Referred for In-Person Appt.: Deferring to PACT for scheduling Clinical Contact Center Codes Clinic/Location: V23 [facility] PHONE CCC RN TXCC Triage Complete Triage Note: Phone Triage Dilia, 22 Sep 2021 21:42:54 +0000 [facility] Demographics 75 y/o Male Results CC: Knee Pain (both knees) Software suggested: Within 3 Days Software suggested follow-up location: Clinic, consider virtual care Values and Measures Duration of CC: 2 Weeks Positive Responses HPI: knee pain, duration longer than 1 week HPI: knee pain, moderate to severe HPI: knee pain, worsening Negative Responses Denies: HPI: knee pain, radiates from back Denies: HPI: knee pain, severe Denies: HPI: knee swelling Denies: HPI: leg numbness, new Denies: HPI: pain, radiation down back of leg Denies: HPI: skin erythema, knees Denies: PMH: high cholesterol /es/ JULIAN FREY RN VISN 23 DAYTIME HOME AIDE Signed: 09/22/2021 16:54 Receipt Acknowledged By: * AWAITING SIGNATURE * RAINER ALLEN 09/23/2021 ADDENDUM STATUS: COMPLETED i put in for xray orders and recall to see me in clinic /es/ Giselle Martinez MD Staff Physician Signed: 09/23/2021 12:06
--- OUTSIDE RECORDS SUMMARY | 2021-12-23 19:24 | XMS_ITS | Encounter Summary ---
:1945 Author Organization [facility] Address [address] [place] [address] Support Name Relationship Address Phone FRANCES GANDARA Unavailable [address] [place] [address] FRANCES GANDARA Unavailable [address] [place] [address] FRANCES GANDARA Unavailable [address] [place] [address] FRANCES GANDARA Unavailable [address] [place] [address] Insurance Providers: All historical and current Section [...] MEDICARE MEDICARE PART Apr 19, PART A [id number] Whit MOJICA (WNR) (M) A 2007 50A [phone] JESSICA MEDICARE MEDICARE PART Apr 19, PART A [id number] 800 Whit [place] (WNR) (M) A 2007 [id number] [phone] JESSICA Selected Encounter This section includes the information on record at [place] for the Encounter. Date/Time Encounter Type Encounter Description Reason Provider Source Sep 27, 2021 11:18 Outpatient Encounter COMMUNITY CARE AM CONSULT IHE [...] 28, 2021 01:30 PM AMBULATORY - SURGERY [facility] Oct 11, 2021 02:30 PM AMBULATORY - MEDICINE [facility] Oct 26, 2021 04:45 PM AMBULATORY - NONE [facility] Nov 02, 2021 04:30 PM AMBULATORY - NONE [facility] Nov 07, 2021 06:00 PM AMBULATORY - NONE [facility] Nov 09, 2021 03:30 PM AMBULATORY - MEDICINE [facility] Nov 29, 2021 01:30 PM AMBULATORY - MEDICINE [facility] Nov 29, 2021 02:30 PM AMBULATORY - MEDICINE [facility] Dec 07, 2021 04:45 PM AMBULATORY - NONE [facility] Dec 12, 2021 02:30 PM AMBULATORY - SURGERY [facility] Dec 15, 2021 10:00 AM AMBULATORY - MEDICINE [facility] Dec 15, 2021 12:30 PM AMBULATORY - NONE [facility] Dec 15, 2021 12:45 PM AMBULATORY - NONE [facility] Dec 15, 2021 02:30 PM AMBULATORY - SURGERY [facility] Dec 20, 2021 02:00 PM AMBULATORY - NONE [facility] Dec 22, 2021 03:30 AM AMBULATORY - NONE [facility] Jan 02, 2022 05:10 PM AMBULATORY - REHAB MEDICINE [facility] Jan 03, 2022 05:00 PM AMBULATORY - REHAB MEDICINE [facility] Jan 05, 2022 04:00 PM AMBULATORY - NONE [facility] Social History: Smoking Status (Most current) and Tobacco Use (All prior to encounter date) This section includes the most current, and the historical, smoking and tobacco-related health factors from the [place] facility where the Encounter took place.Current Smoking Status This section includes the most current smoking, or tobacco-related health factor, from the [place] facility where the Encounter took place. Date/Time Current Smoking Status [facility] Facility Apr 25, 2021 11:00 AM VA-TOBACCO [...] 2020 02:00 PM [facility] July 09, 2020 02:00 PM VA-TOBACCO QUIT 15 YRS OR MORE [facility] Apr 17, 2019 02:39 PM INPT NO TOBACCO USE IN LAST 30 DAYS [facility] Feb 04, 2019 10:37 AM VA-TOBACCO [...] May 29, 2017 CLINICAL WARNING CORNELIO FREITAS [facility] May 16, 2017 ADVANCE DIRECTIVE SERENITY BUENROSTRO [facility] May 16, 2017 ADVANCE DIRECTIVE DISCUSSION SERENITY [place]ENROSTRO [place] [facility] May 04, 2017 CLINICAL WARNING MAGO DIAMOND [facility] May 04, 2017 CLINICAL WARNING GAEL ROSARIO [facility] Apr 26, 2017 CLINICAL WARNING JENNIFER DE LEON [facility] Jan 01, 2017 CLINICAL WARNING AYDE WELLS [facility] Jun 09, 2004 ADVANCE DIRECTIVE DARYL VILLARREAL [facility] Jun 07, 2004 ADVANCE DIRECTIVE AMIESHERYL ANN [facility] Radiology Reports: +/- 30 [...] the Encounter. The data comes from all [place] treatment facilities. Date/Time Radiology Report Provider Source Oct 26, 2021 05:14 PM LNR INCIDENTAL NODULE LD FOLLOW UP: JOSE SIMON [facility] JESSICA MOJICA [id number] -[birth year] 8 M Exm Date: OCT 26, 2021@17:14 Req Phys: CARIDAD DENNIS Pat Loc: [facility] PACT SAPPHIRE 4E (Req'g Lo Img Loc: CT IMAGING Service: Unknown (Case [id number] COMPLETE) LNR INCIDENTAL NODULE LD FO LLOW U(CT Detailed) CPT:10176 Reason for Study: ground glass opacity from f/u Clinical History: want to schedule for september 06 [place] IS NOT under investigation for COVID-19 or is COVID-19 negative Defer to radiologist for final CT protocol. Responsible provider name and phone number to n otify for critical findings if other than user placing the order a nd pager listed below: User placing orders pager: [phone] LAST 3: Collection DT Specimen Test Name Result Units Ref Range 07/29/2021 12:30 PLASMA CREATIN INE 0.7 mg/dL 0.7 - 1.2 04/28/2021 13:17 PLASMA CREATININE 0.7 mg/dL 0.7 - 1.2 12/15/2020 12:44 PLASMA CREATININE 0.6 L mg/dL 0.7 - 1.2 07/29/2021 12:30 PLASMA CREAT EGFR(CKD-EP > 90 Ref: >=60 04/28/2021 13:17 PLASMA CREAT EGFR(CK D-EP >90 Ref: >=60 12/15/2020 12:44 PLASMA ESTIMATED GFR(eGF >60 Ref: >=60 12/14/2020 04:25 PLASMA ESTIMATED GFR(eGF >60 Ref: >=60 06/22/2020 10:25 PLASMA ESTIMATED GFR(eGF >60 Ref: >=60 Allergies: ([place] only) RIVAROXABAN (Jul 25, 2017) Report Status: Verified Date Reported: OCT 27, 2021 Date Verified: OCT 27, 2021 [employer] E-Sig:/ES/JOSE NUNEZ MD Report: EXAM: Non-Contrast Low-Dose CT Chest 10/27/2021. HISTORY: ground glass opacity from 2020 f/u COMPARISON: 12/14/2020, 11/14/2019. TECHNIQUE: Low dose CT chest without IV contras t. Axial and coronal images were obtained. DOSE: DLP: 75.38/CTDIvol Mean: 1.7/Effective Do se: 1.1 FINDINGS: Exam is somewhat limited secondary to motion artifact. Lungs: Complete resolution of previously visual ized ground glass opacity involving the superior aspect of the le ft lower lobe. There are somewhat similar ground glass opaciti es involving the lingula and dependent aspect of the left lower lobe and to a lesser extent the right lower lobe. The central tracheobronchial tree is clear. There are several new groundglass nodules throu ghout the left upper lobe including a 7 mm ground glass nodule within the left upper lobe (series 3 image 62). Pleura: No pneumothorax or pleural effusion. 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 The visualized thyroid is unr emarkable. Heart size is enlarged. No pericardial effusion. Aort ic valvular calcifications. Moderate coronary artery calcif ications. The ascending thoracic aorta and main pulmonary art octavio are within limits. Conventional branching pattern of the g reat vessels. Unchanged 14 mm right paratracheal lymph node ( series 4 image 189). No abnormal hilar or axillary lymph nodes by size criteria. Patulous appearance of the esophagus which appe ars thickened distally, similar to prior. Upper abdomen: Limited evaluation of the upper abdomen. The spleen is mildly enlarged measuring up to 14.4 cm. Decompressed gallbladder. Moderate fatty atrophy of the panc reas. Bones and soft tissues: Healed left posterior 1 0th and 11th rib fractures. Accentuated kyphosis of the thoracic spine. Moderate to severe degenerative changes of the thoracic spine most severe at T11 level of T11-T12 with near complete loss of disc space. Exam is limited secondary to motion artifact. M ild bilateral gynecomastia. Impression: 1. Complete resolution of large groundglass opa city involving the superior aspect of the left lower lobe. 2. Several new groundglass nodules within the l eft upper lobe measuring up to 7 mm. Follow up per Fleischner Society 2017 guidelines. 3. Scattered groundglass opacities involving th e lingula, dependent aspect of the left lower lobe, and ri ght lower lobe. These most likely represent atelectasis, althou gh an ongoing infectious/inflammatory etiology is possible. 4. Patulous esophagus which is thickened distal ly, correlate for reflux. I, Jose Nunez, have reviewed the images an d report. Primary Interpreting Staff: JOSE NUNEZ MD, STAFF RADIOLOGIST (Adelia mancini) Primary Interpreting Resident: TRACY THOMPSON MD, TIN PLATER /cvm Encounter Notes: All associated encounter notes This section contains the clinical notes associated to the Encounter. Date/Time Encounter Note(s) Provider Source Sep 27, 2021 11:18 AM NONVA NOTE: [facility] LOCAL TITLE: COMMUNITY CARE-CARE COORDINATION P [place] NOTE STANDARD TITLE: NONVA NOTE DATE OF NOTE: SEP 27, 2021@11:18 ENTRY DATE: SEP 27, 2021@11:18:24 AUTHOR: TYLER RIOC EXP COSIGNER: URGENCY: STATUS: [facility] he is to be having. believes consult ivet lange be ready but Dental provider is stating it does not show coverage for implants. Alerting Dental [facility] to please call today to discuss. /vinicio/ TYLER [place] ADVANCED [facility]SA Signed: 09/27/2021 11:20 Receipt Acknowledged By: * AWAITING SIGNATURE * FRANCES PALOMINO
--- OUTSIDE RECORDS SUMMARY | 2021-12-23 19:26 | XMS_ITS | Encounter Summary ---
:1945 Author Organization [facility] Address [address] [place] [id number] Support Name Relationship Address Phone FRANCES GANDARA Unavailable [address] [place] [address] FRANCES GANDARA Unavailable [address] [place] [address] FRANCES GANDARA Unavailable [address] [place] [address] FRANCES GANDARA Unavailable [address] [place] [address] Insurance Providers: All historical and current Section [...] MEDICARE MEDICARE PART Apr 19, PART A [id number] 800 Whit MOJICA (WNR) (M) A 2007 [id number] [phone] JESSICA MEDICARE MEDICARE PART Apr 19, PART A [id number] 800 Whit MOJICA (WNR) (M) A 2007 50A [phone] JESSICA Selected Encounter This section includes the information on record at [place] for the Encounter. Date/Time Encounter Type Encounter Description Reason Provider Source Sep 28, 2021 10:00 Outpatient Encounter PRIMARY CARE/MEDICINE AM IHE Encounter [...] Date/Time Appointment Type Appointment Facili ty Name Oct 11, 2021 02:30 PM AMBULATORY - MEDICINE [facility] Oct 26, 2021 04:45 PM AMBULATORY - NONE [facility] Nov 02, 2021 04:30 PM AMBULATORY - NONE [facility] Nov 07, 2021 06:00 PM AMBULATORY - NONE [facility] Nov 09, 2021 03:30 PM AMBULATORY - MEDICINE [facility] Nov 29, 2021 01:30 PM AMBULATORY - MEDICINE [facility] Nov 29, 2021 02:30 PM AMBULATORY - MEDICINE [facility] Dec 07, 2021 04:45 PM AMBULATORY - NONE [facility] Dec 12, 2021 02:30 PM AMBULATORY - SURGERY [facility] Dec 15, 2021 10:00 AM AMBULATORY - MEDICINE [facility] Dec 15, 2021 12:30 PM AMBULATORY - NONE [facility] Dec 15, 2021 12:45 PM AMBULATORY - NONE [facility] Dec 15, 2021 02:30 PM AMBULATORY - SURGERY [facility] Dec 20, 2021 02:00 PM AMBULATORY - NONE [facility] Dec 22, 2021 03:30 AM AMBULATORY - NONE [facility] Jan 02, 2022 05:10 PM AMBULATORY - REHAB MEDICINE [facility] Jan 03, 2022 05:00 PM AMBULATORY - REHAB MEDICINE [facility] Jan 05, 2022 04:00 PM AMBULATORY - NONE [facility] Jan 10, 2022 10:00 AM AMBULATORY - SURGERY [facility] Jan 10, 2022 02:30 PM AMBULATORY - MEDICINE [facility] Social History: Smoking Status (Most current) and Tobacco Use (All prior to encounter date) This section includes the most current, and the historical, smoking and tobacco-related health factors from the [place] facility where the Encounter took place.Current Smoking Status This section includes the most current smoking, or tobacco-related health factor, from the [place] facility where the Encounter took place. Date/Time Current Smoking Status [facility] Apr 25, 2021 11:00 AM VA-TOBACCO NEVER USED [facility] Tobacco Use History This section includes a history of the smoking, or tobacco- related health factors, that were collected on or before the date of the Encounter. The data comes from the [place] facility where the Encounter took place. Date/Time Smoking Status/Tobacco Use Comment Facil ity July 09, 2020 02:00 PM [facility] July 09, 2020 02:00 PM VA-TOBACCO QUIT 15 YRS OR MORE [facility] Apr 17, 2019 02:39 PM INPT NO TOBACCO USE IN LAST 30 DAYS [facility] Feb 04, 2019 10:37 AM VA-TOBACCO NEVER USED [facility] Oct 15, 2018 02:43 PM [...] 2018 03:28 PM VA-TOBACCO FORMER USER [facility] Jan 30, 2018 03:28 [...] this document. The data comes from all [place] facilities. Date Advance Directives Provider Source May 29, 2017 CLINICAL WARNING CORNELIO FREITAS [facility] May 16, 2017 ADVANCE DIRECTIVE SERENITY BUENROSTRO [facility] May 16, 2017 ADVANCE DIRECTIVE DISCUSSION SERENITY BUENROSTRO [facility] May 04, 2017 CLINICAL WARNING MAGO DIAMOND [facility] May 04, 2017 CLINICAL WARNING GAEL ROSARIO [facility] Apr 26, 2017 CLINICAL WARNING JENNIFER DE [facility]ON [facility] Jan 01, 2017 CLINICAL WARNING AYDE WELLS [facility] Jun 09, 2004 ADVANCE DIRECTIVE VILLARREALDARYL Cortes [facility] Jun 07, 2004 ADVANCE DIRECTIVE HOLLOWAY,SHERYL ANN [facility] Radiology Reports: +/- 30 days of [...] INCIDENTAL NODULE LD FOLLOW UP: JOSE SIMON [facility] JESSICA MOJICA [id number] -[birth year] 8 M Exm Date: OCT 26, 2021@17:14 Req Phys: CARIDAD DENNIS Pat Loc: [facility] PACT SAPPHIRE 4E (Req'g Lo Img Loc: CT IMAGING Service: Unknown (Case [id number] COMPLETE) LNR INCIDENTAL NODULE LD FO LLOW U(CT Detailed) CPT:40296 Reason for Study: ground glass opacity from f/u Clinical History: want to schedule for september 06 IS NOT under investigation for COVID-19 or is COVID-19 negative Defer to radiologist for final CT protocol. Responsible provider name and phone number to n otify for critical findings if other than user placing the order a nd pager listed below: User placing orders pager: [phone] LAST 3: Collection DT Specimen Test Name [...] PLASMA ESTIMATED GFR(eGF >60 Ref: >=60 Allergies: ([place]en only) RIVAROXABAN (Jul 25, 2017) Report Status: Verified Date Reported: OCT 27, 2021 Date Verified: OCT 27, 2021 Frozen Meat Cutter E-Sig:/ES/JOSE NUNEZ MD Report: EXAM: Non-Contrast Low-Dose [...] mancini) Primary Interpreting Resident: TRACY THOMPSON MD, OFFSHORE WIND OPERATIONS MANAGER /cvm Encounter Notes: All associated encounter notes This section contains the clinical notes associated to the Encounter. Date/Time Encounter Note(s) Provider Source Sep 28, 2021 10:01 AM REPORT OF CONTACT: JEANETTE BUSH [facility] LOCAL TITLE: APPOINTMENT SCHEDULING NOTE KAYLAH FOSS STANDARD TITLE: REPORT OF CONTACT DATE OF NOTE: SEP 28, 2021@10:01 ENTRY DATE: SEP 28, 2021@10:02:03 AUTHOR: EMERSON IBRAHIM COSIGNER: URGENCY: STATUS: COMPLETED Attempt to schedule return to clinic 1st Contact: Called Hiawatha at: A Left message Phone number left for to call back: 2nd Contact: Sent letter by regular [place] mail to [place] [address], [place] [address] If Hiawatha calls back, schedule appointment for : [id number] [facility] [place] rtc 09/2021 f/u knee giuseppe n with xrays prior Is the RTC marked as no later than? No /es/ KAYLAH KO ADVANCED MSA Signed: 09/28/2021 10:03
--- OUTSIDE RECORDS SUMMARY | 2021-12-23 19:27 | XMS_ITS | Encounter Summary ---
:1945 Author Organization [facility] Address [address] [place] [address] Support Name Relationship Address Phone FRANCES GANDARA Unavailable [address] [place] [address] FRANCES GANDARA Unavailable [address] [place] [address] FRANCES GANDARA Unavailable [address] [place] [address] FRANCES GANDARA Unavailable [address] [place] [address] Insurance Providers: All historical and current Section [...] MEDICARE MEDICARE PART Apr 19, PART A [id number] 800 Whit MOJICA (WNR) (M) A 2007 50A [phone] JESSICA MEDICARE MEDICARE PART Apr 19, PART A [id number] 800 Whit MOJICA (WNR) (M) A 2007 [id number] [phone] JESSICA Selected Encounter This section includes the information on record at [place] for the Encounter. Date/Time Encounter Type Encounter Reason Provider Source Description Sep 28, 2021 HEARING AID AUDIOLOGY ICD-10-CM H90.3 KHALIF RAND 01:30 PM CHECK BOTH EARS Sensorineural L H hearing loss, bilateral with Provider Comments: Sensorineural hearing loss, bilateral IHE Encounter Template Text not used by [facility] Assessments - Encounter Diagnoses This section includes the primary and secondary diagnoses documented for the Encounter. Date/Time Primary/Secondary Diagnosis Name Provider Source Diagnosis Sep 28, 2021 PRIMARY Sensorineural KHALIF RAND V A 05:14 PM hearing loss, L [facility] bilateral Sep 28, 2021 SECONDARY Tinnitus, KHALIF RAND [facility] 05:14 PM bilateral L H [facility] Plan of Treatment: Future Appointments (+ 6 months) and Future Tests (+/- 45 days) The Plan of Treatment section includes future care activities for the patient from [facility] [place] [facility]. This section includes future appointments and future orders which are active, pending orscheduled.Future Appointments This section includes appointments that were scheduled to occur 6 months from the date of the Encounter, up to a maximum of 20 appointments. The data comes from all [place] treatment facilities. Appointment Date/Time Appointment Type Appointment Facili ty Name Oct 11, 2021 02:30 PM AMBULATORY - MEDICINE [facility] Oct 26, 2021 04:45 PM AMBULATORY - NONE [facility] Nov 02, 2021 04:30 PM AMBULATORY - NONE [facility] Nov 07, 2021 06:00 PM AMBULATORY - NONE [facility] Nov 09, 2021 03:30 PM AMBULATORY - MEDICINE [facility] Nov 29, 2021 01:30 PM AMBULATORY - MEDICINE [facility] Nov 29, 2021 02:30 PM AMBULATORY - MEDICINE [facility] Dec 07, 2021 04:45 PM AMBULATORY - NONE [facility] Dec 12, 2021 02:30 PM AMBULATORY - SURGERY [facility] Dec 15, 2021 10:00 AM AMBULATORY - MEDICINE [facility] Dec 15, 2021 12:30 PM AMBULATORY - NONE [facility] Dec 15, 2021 12:45 PM AMBULATORY - NONE [facility] Dec 15, 2021 02:30 PM AMBULATORY - SURGERY [facility] Dec 20, 2021 02:00 PM AMBULATORY - NONE [facility] Dec 22, 2021 03:30 AM AMBULATORY - NONE [facility] Jan 02, 2022 05:10 PM AMBULATORY - REHAB MEDICINE [facility] Jan 03, 2022 05:00 PM AMBULATORY - REHAB MEDICINE [facility] Jan 05, 2022 04:00 PM AMBULATORY - NONE [facility] Jan 10, 2022 10:00 AM AMBULATORY - SURGERY [facility] Jan 10, 2022 02:30 PM AMBULATORY - MEDICINE [facility] Social History: Smoking Status (Most current) and Tobacco Use (All prior to encounter date) This section includes the most current, and the historical, smoking and tobacco-related health factors from the [place] facility where the Encounter took place.Current Smoking Status This section includes the most current smoking, or tobacco-related health factor, from the [place] facility where the Encounter took place. Date/Time Current Smoking Status Comment Facility Apr 25, 2021 11:00 AM VA-TOBACCO NEVER USED [place] [facility] Tobacco Use History This section includes a history of the smoking, or tobacco- related health factors, that were collected on or before the date of the Encounter. The data comes from the [place] facility where the Encounter took place. Date/Time Smoking Status/Tobacco Use Comment [facility] July 09, 2020 02:00 PM VA-TOBACCO FORMER USER [place] [facility] July 09, 2020 02:00 PM VA-TOBACCO QUIT 15 YRS OR MORE [facility] Apr 17, 2019 02:39 PM INPT NO TOBACCO USE IN LAST 30 DAYS [facility] Feb 04, 2019 10:37 AM VA-TOBACCO NEVER USED [place] [facility] Oct 15, 2018 02:43 PM INPT NO TOBACCO USE IN LAST 30 DAYS [facility] Oct 13, 2018 11:30 PM INPT NO TOBACCO USE IN LAST 30 DAYS [facility] Sep 02, 2018 05:50 PM INPT NO TOBACCO USE IN LAST 30 DAYS [facility] Aug 12, 2018 07:28 PM INPT NO TOBACCO USE IN LAST 30 DAYS [facility] Jan 30, 2018 03:28 PM VA-TOBACCO FORMER USER [place] [facility] Jan 30, 2018 03:28 PM VA-TOBACCO QUIT 15 YRS OR MORE [facility] May 29, 2017 04:53 PM INPT NO TOBACCO USE IN LAST 30 DAYS [facility] Apr 25, 2017 10:44 PM INPT NO TOBACCO USE IN LAST 30 DAYS [facility] Jan 01, 2017 06:40 PM INPT NO TOBACCO USE IN LAST 30 DAYS [facility] Dec 21, 2016 02:43 PM FORMER TOBACCO USER 7Y OR GREATER [facility] Sep 24, 2013 08:52 AM FORMER TOBACCO USER 7Y OR GREATER [facility] Advance Directives: All historical and current Section Date Range: From patient's date of to the date document was created. This section includes ALL of a patient's completed or amended [place] Advance and Rescinded Directives. The entries below indicate that a directive exists for the patient, but an actual copy is not included with this document. The data comes from all [place] facilities. Date Advance Directives Provider Source May 29, 2017 CLINICAL WARNING KYLE FREITASKINGSTON Teodora Cordova [facility] May 16, 2017 ADVANCE DIRECTIVE SERENITY BUENROSTRO [facility] May 16, 2017 ADVANCE DIRECTIVE DISCUSSION SER[place]ITY [place]STRO [place] [facility] May 04, 2017 CLINICAL WARNING [facility] May 04, 2017 CLINICAL WARNING GAEL ROSARIO [facility] Apr 26, 2017 CLINICAL WARNING JNENIFER DE LEON [facility] Jan 01, 2017 CLINICAL WARNING AYDE WELLS [facility] Jun 09, 2004 ADVANCE DIRECTIVE DARYL VILLARREAL [facility] Jun 07, 2004 ADVANCE DIRECTIVE [...] the Encounter. The data comes from all [place] treatment facilities. Date/Time Radiology Report Provider Source Oct 26, 2021 05:14 PM LNR INCIDENTAL NODULE LD FOLLOW UP: JOSE SIMON [facility] JESSICA MOJICA [id number] -[birth year] 8 M Exm Date: OCT 26, 2021@17:14 Req Phys: CARIDAD DENNIS Pat Loc: [facility] PACT SAPPHIRE 4E (Req'g Lo Img Loc: CT IMAGING Service: Unknown (Case [id number] COMPLETE) LNR INCIDENTAL NODULE LD FO LLOW U(CT Detailed) CPT:64736 Reason for Study: ground glass opacity from f/u Clinical History: want to schedule for september 06 [place] IS NOT under investigation for COVID-19 or is COVID-19 negative Defer to radiologist for final CT protocol. Responsible provider name and phone number to n otify for critical findings if other than user placing the order a nd pager listed below: User placing orders pager: [phone] LAST 3: Collection DT Specimen Test Name [...] PLASMA ESTIMATED GFR(eGF >60 Ref: >=60 Allergies: ([place] only) RIVAROXABAN (Jul 25, 2017) Report Status: Verified Date Reported: OCT 27, 2021 Date Verified: OCT 27, 2021 Economic Specialist E-Sig:/ES/JOSE NUNEZ MD Report: EXAM: Non-Contrast Low-Dose [...] RADIOLOGIST (Adelia mancini) Primary Interpreting Resident: TRACY THOMPOSN MD, DIRECTOR OF PUBLIC WORKS /cvm Encounter Notes: All associated encounter notes This section contains the clinical notes associated to the Encounter. Date/Time Encounter Note(s) Provider Source Sep 28, 2021 05:05 PM AUDIOLOGY NOTE: BAKARI RANDAPOL IS [facility] LOCAL TITLE: AUDIOLOGY CLINIC NOTE STANDARD TITLE: AUDIOLOGY NOTE DATE OF NOTE: SEP 28, 2021@17:05 ENTRY DATE: SEP 28, 2021@17:05:33 AUTHOR: BAKARI RAND EXP COSIGNER: URGENCY: STATUS: COMPLETED AUDIOLOGY CLINIC NOTE Has ADDENDA DIAGNOSIS: Sensorineural Hearing Loss, Tinnitus Reason for visit: Therapeutic - Hearing aid serv ice appointment Otoscopy: Free of excessive cerumen, normal anatomy bilate rally. History: Patient seen for a hearing aid service/hearing a id check. Hearing Aids (right/left): SONOVA PHONAK VIRTO M90 CA L [id number] SONOVA PHONAK VIRTO M90 CA R [id number]* The following hearing aid problem/s were present ed: RIGHT HEARING AID - clean & check; pair to phone LEFT HEARING AID - clean & check; bluetooth stat ic, pair to phone Action: Hearing aids were cleaned and checked. Listening check revealed good sound quality Both aids functioning properly post clean & chec k Recalibrated aids and paired to iphone Ordering tv link and mailing to address on file [place] was counseled on the cleaning, care and use of hearing aids. Plan: Follow up as medically indicated or if a change in hearing is noted. Return to Clinic for servicing of amplification as needed. Return to clinic for hearing aid evaluation/serv ices. Return to clinic for fitting of devices. Patient is in agreement with this plan. *mail tv connector to address on fle /vinicio/ BAKARI RAND [facility] DEPUTY SHERIFF K9 HANDLER Signed: 09/28/2021 17:14 09/30/2021 ADDENDUM STATUS: COMPLETED I have reviewed the audiological note an d concur with the findings, procedures and recommendations for the . The health archives technician provided services to the during the time of the entire appoin tment. /vinicio/ Adriel Lucas Ph.D. TANK SETTER HELPER Signed: 10/25/2021 09:54 10/06/2021 ADDENDUM STATUS: COMPLETED RECEIVED, CERTIFIED AND ISSUED Creator Up TV CONNECT OR 2.0 DEVICE MAILED TO INSTRUCTED /vinicio/ BAKARI ACEVEDO AUDIO TECH Signed: 10/06/2021 08:48
--- OUTSIDE RECORDS SUMMARY | 2021-12-23 19:28 | XMS_ITS | Encounter Summary ---
:1945 Author Organization [facility] Address [address] [place] [address] Support Name Relationship Address Phone FRANCES GANDARA Unavailable [address] [place] [address] FRANCES GANDARA Unavailable [address] [place] [address] FRANCES GANDARA Unavailable [address] [place] [address] FRANCES GANDARA Unavailable [address] [place] [address] Insurance Providers: All historical and current Section [...] MEDICARE MEDICARE PART Apr 19, PART A [id number] Whit [place] (WNR) (M) A 2007 50A [phone] [place] MEDICARE MEDICARE PART Apr 19, PART A [id number] Whit [place] (WNR) (M) A 2007 [id number] [phone] [place] Selected Encounter This section includes the information on record at [place] for the Encounter. Date/Time Encounter Type Encounter Description Reason Provider Source Sep 29, 2021 02:11 Outpatient Encounter COMMUNITY CARE PM CONSULT IHE [...] 20 appointments. The data comes from all [place] treatment facilities. Appointment Date/Time Appointment Type Appointment Facili ty Name Oct 11, 2021 02:30 PM AMBULATORY - MEDICINE [facility] Oct 26, 2021 04:45 PM AMBULATORY - NONE [facility] Nov 02, 2021 04:30 PM AMBULATORY - NONE [facility] Nov 07, 2021 06:00 PM AMBULATORY - NONE [facility] Nov 09, 2021 03:30 PM AMBULATORY - MEDICINE [facility] Nov 29, 2021 01:30 PM AMBULATORY - MEDICINE [facility] Nov 29, 2021 02:30 PM AMBULATORY - MEDICINE [facility] Dec 07, 2021 04:45 PM AMBULATORY - NONE [facility] Dec 12, 2021 02:30 PM AMBULATORY - SURGERY [facility] Dec 15, 2021 10:00 AM AMBULATORY - MEDICINE [facility] Dec 15, 2021 12:30 PM AMBULATORY - NONE [facility] Dec 15, 2021 12:45 PM AMBULATORY - NONE [facility] Dec 15, 2021 02:30 PM AMBULATORY - SURGERY [facility] Dec 20, 2021 02:00 PM AMBULATORY - NONE [facility] Dec 22, 2021 03:30 AM AMBULATORY - NONE [facility] Jan 02, 2022 05:10 PM AMBULATORY - REHAB MEDICINE [facility] Jan 03, 2022 05:00 PM AMBULATORY - REHAB MEDICINE [facility] Jan 05, 2022 04:00 PM AMBULATORY - NONE [facility] Jan 10, 2022 10:00 AM AMBULATORY - SURGERY [facility] Jan 10, 2022 02:30 PM AMBULATORY - MEDICINE [facility] Social History: Smoking Status (Most current) and Tobacco Use (All prior to encounter date) This section includes the most current, and the historical, smoking and tobacco-related health factors from the [place] facility where the Encounter took place.Current Smoking Status This section includes the most current smoking, or tobacco-related health factor, from the [place] facility where the Encounter took place. Date/Time Current Smoking Status [facility] Apr 25, 2021 11:00 AM VA-TOBACCO NEVER USED [facility] Tobacco Use History This section includes a history of the smoking, or tobacco- related health factors, that were collected on or before the date of the Encounter. The data comes from the [place] facility where the Encounter took place. Date/Time Smoking Status/Tobacco Use Comment Facil ity July 09, 2020 02:00 PM [facility] July 09, 2020 02:00 PM VA-TOBACCO QUIT 15 YRS OR MORE [facility] Apr 17, 2019 02:39 PM INPT NO TOBACCO USE IN LAST 30 DAYS [facility] Feb 04, 2019 10:37 AM VA-TOBACCO NEVER USED [facility] Oct 15, 2018 02:43 [...] 2018 03:28 PM VA-TOBACCO FORMER USER MIN [facility] Jan 30, 2018 [...] ALL of a patient's completed or amended [place] Advance and Rescinded Directives. The entries below [...] ADVANCE DIRECTIVE DISCUSSION SERENITY BUENROSTRO [place] [facility] May 04, 2017 CLINICAL WARNING MAGO DIAMOND [facility] May 04, 2017 CLINICAL WARNING GAEL ROSARIO [facility] Apr 26, 2017 CLINICAL WARNING JENNIFER DE LEON [facility] Jan 01, 2017 CLINICAL WARNING AYDE WELLS [facility] Jun 09, 2004 ADVANCE DIRECTIVE DARYL VILLARREAL [facility] Jun 07, 2004 ADVANCE DIRECTIVE AMIESHERYL ANN [facility] Radiology Reports: +/- [...] the Encounter. The data comes from all [place] treatment facilities. Date/Time Radiology Report Provider Source Oct 26, 2021 05:14 PM LNR INCIDENTAL NODULE LD FOLLOW UP: JOSE SIMON [facility] CORBY MOJICA [id number] -[birth year], [birth year] 7 M Exm Date: OCT 26, 2021@17:14 Req Phys: CARIDAD DENNIS Pat Loc: [facility] PACT SAPPHIRE 4E (Req'g Lo Img Loc: CT IMAGING Service: Unknown (Case [id number] COMPLETE) LNR INCIDENTAL NODULE LD FO LLOW U(CT Detailed) CPT:56329 Reason for Study: ground glass opacity from f/u Clinical History: want to schedule for september 06 [facility] IS NOT under investigation for COVID-19 or is COVID-19 negative Defer to radiologist for final CT protocol. Responsible provider name and phone number to n otify for critical findings if other than user placing the order a nd pager listed below: User placing orders pager: [phone] LAST 3: Collection DT Specimen Test Name [...] PLASMA ESTIMATED GFR(eGF >60 Ref: >=60 Allergies: ([place] only) RIVAROXABAN (Jul 25, 2017) Report Status: Verified Date Reported: OCT 27, 2021 Date Verified: OCT 27, 2021 Cell Phone Repair Technician E-Sig:/ES/JOSE NUNEZ MD Report: EXAM: Non-Contrast Low-Dose [...] mancini) Primary Interpreting Resident: TRACY THOMPSON MD, RUBBER BELT SPLICER /cvm Encounter Notes: All associated encounter notes This section contains the clinical notes associated to the Encounter. Date/Time Encounter Note(s) Provider Source Sep 29, 2021 02:11 PM [facility] LOC[facility] TITLE: COMMUNITY CARE-CARE COORDINATION P [facility] NOTE STANDARD TITLE: NONVA NOTE DATE OF NOTE: SEP 29, 2021@14:11 ENTRY DATE: SEP 29, 2021@14:11:44 AUTHOR: TYLER LOPEZ EXP COSIGNER: URGENCY: STATUS: COMPLETED COMMUNITY CARE-CARE COORDINATION PLAN NOTE Has ADDENDA The called [facility] to see if there was a de ntal consult. This AMSA explained that it was in pen ding status and would change to active in a few day. The stated he did not want to go to [facility] he would rather go to: [facility] [place] [address] Fx: [phone] Cornelio Webb The claimed that is who pulled his tooth a couple of weeks back. The would like a call back with the stat us is active for Dental. /es/ TYLER LOPEZ MSA ADVANCED GENERAL LEDGER ACCOUNTANT Signed: 09/29/2021 14:14 Receipt Acknowledged By: 10/03/2021 09:26 /vinicio/ FRANCES TATESE ALFA 10/03/2021 ADDENDUM STATUS: COMPLETED Left message for to call story writer directly to discuss [facility] Dental services. /vinicio/ FRANCES GRIMM Signed: 10/03/2021 09:28 10/25/2021 ADDENDUM STATUS: COMPLETED Previous referral was sent to [facility] Maxill extracted tooth 03 September 2021 consult [id number] [facility] is questioning and w as understanding newest referral should also be with [facility] Maxillofacial. Accounting Tutor alerting Dental Suppo rt team to verify where this new referral should be processed to shows: Consult [id number] [facility] [address], [facility] [address] [place] [address] Fx: [phone] Dr Caitlyn Zhou Approved Treatment: CDT Code 1 for Tooth# 8 Surface: MIFL CDT Codes: D2335 Resin 4+ surfaces CDT Code 2 for Tooth# 9 Surface: MIFL CDT Codes: D2335 Resin 4+ surfaces CDT Code 3 for Tooth# 10 Surface: MDF CDT Codes: D2332 Resin 3 surfaces anterior CDT Code 4 for Tooth# 14 Surface: CDT Codes: D2740 [place] - Porcelain/ceramic subst rate CDT Code 5 for Tooth# 17 Surface: MOL CDT Codes: D2160 Amalgam-3 Surf. Prim/Perm CDT Code 6 for Tooth# 18 Surface: CDT Codes: D2740 [place] - Porcelain/ceramic subst rate, D2950 Core buildup, including pins CDT Code 7 for Tooth# 22 Surface: ML CDT Codes: D2331 Resin 2 surface anterior CDT Code 8 for Tooth# 26 Surface: DF CDT Codes: D2331 Resin 2 surface anterior CDT Code 9 for Tooth# 27 Surface: ML CDT Codes: D2331 Resin 2 surface anterior CDT Code 10 for Tooth# Surface: CDT Codes: D5214 Mandibular Partial Denture - Ca st Metal Framework Please review with urgency and advise does patie nt have permission as he is requesting to be seen by [facility] Maxillofaci al as he has in past couple referrals? /vinicio/ AIRAM MACK MSA Signed: 10/25/2021 13:12 Receipt Acknowledged By: 10/26/2021 16:37 /darya GRIMM 10/26/2021 16:37 /vinicio/ FRANCES PALOMINO AMSA for CORNELIO PLASENCIA NESSLACHO 10/26/2021 ADDENDUM STATUS: COMPLETED Alerting ALFA Christy, please advise frank duff that these services cannot be completed at any Oral Surgery clinic, must be completed with General Dentist, such as Keli Reynolds. Services can be completed at [facility] if does not wish to use [facility] provider. /vinicio/ FRANCES PAOLMINO AMSA Signed: 10/26/2021 16:46 Receipt Acknowledged By: 10/27/2021 10:18 /vinicio/ AIRAM MACK MSA 10/27/2021 ADDENDUM STATUS: COMPLETED Accounting Tutor spoke with Mendy at [facility], all the listed work on this referral has been done, nikki louis a year ago. The only dental services to be done, offered the is for partial dentu re; however, the patient does not want this. This wants inplants and was told by [place] medical A1C levels are not low enough. Accounting Tutor called [facility] to conf irm what dental services, Tooth 16 was removed August 2021 consult [id number]. Alerting dental program team to review consult [id number] [facility], beckyld this be cancelled? /es/ AIRAM MACK MSA Signed: 10/27/2021 10:07 Receipt Acknowledged By: * AWAITING SIGNATURE * FRANCES PALOMINO 10/28/2021 07:40 /vinicio/ Jorje [facility] PSA 10/28/2021 ADDENDUM STATUS: COMPLETED Consult should not be cance lled if work is completed. It should be closed out. If certain codes were not used, then they just a re not billed for. /vinicio/ Jorje [facility] PSA Signed: 10/28/2021 07:41 Receipt Acknowledged By: * AWAITING SIGNATURE * AIRAM MACK 10/28/2021 ADDENDUM STATUS: COMPLETED Accounting Tutor contacted provider [facility] With the exception Mandibular partial denture wo rk, Consult [id number] majority of this de ntal services was done Consult [id number] July 2020. [facility] states there is no dental services required for this [facility] . The [facility] does not want mandibular partial denture, he wants inplants and w as told by his [place] Physician, A1c needs to be lower. [facility] wants to know how long to w ait to be evaluated by [facility] Physician and [facility] for approval on his requ est. [id number] has not been processed to [facility]. Please review and advise. /vinicio/ AIRAM MACK MSA Signed: 10/28/2021 09:39
--- OUTSIDE RECORDS SUMMARY | 2021-12-23 19:30 | XMS_ITS | Encounter Summary ---
:1945 Author Organization [facility] Address [address] [place] [address] Support Name Relationship Address Phone FRANCES GANDARA Unavailable [address] [place] [address] FRANCES GANDARA Unavailable [address] [place] [address] FRANCES GANDARA Unavailable [address] [place] [address] FRANCES GANDARA Unavailable [address] [place] [address] Insurance Providers: All historical and current Section [...] MEDICARE MEDICARE PART Apr 19, PART A [id number] Whit [place] (WNR) (M) A 2007 50A [phone] JESSICA MEDICARE MEDICARE PART Apr 19, PART A [id number] 800 Whit [place] (WNR) (M) A 2007 [id number] [phone] [place] Selected Encounter This section includes the information on record at [place] for the Encounter. Date/Time Encounter Type Encounter Reason Provider Source Description Oct 10, 2021 Outpatient VASCULAR SURGERY ICD-10-CM FRANKLIN RICHEY 10:26 AM Encounter E11.621 Type 2 diabetes mellitus with foot ulcer with Provider Comments: Type 2 Diabetes Mellitus with Foot Ulcer IHE Encounter Template Text not used by [facility] Assessments - Encounter Diagnoses This section includes the primary and secondary diagnoses documented for the Encounter. Date/Time Primary/Secondary Diagnosis Name Provider Source Diagnosis Oct 10, 2021 PRIMARY Type 2 diabetes FRANKLIN RICHEY [facility] 10:41 AM mellitus with HCS foot ulcer Plan of Treatment: Future Appointments (+ 6 months) and Future Tests (+/- 45 days) The Plan of Treatment section includes future care activities for the [facility] [place] [facility]. This section includes future appointments and future orders which are active, pending orscheduled.Future Appointments This section includes appointments that were scheduled to occur 6 months from the date of the Encounter, up to a maximum of 20 appointments. The data comes from all [place] treatment facilities. Appointment Date/Time Appointment Type Appointment Facili ty Name Oct 11, 2021 02:30 PM AMBULATORY - MEDICINE [facility] Oct 26, 2021 04:45 PM AMBULATORY - NONE [facility] Nov 02, 2021 04:30 PM AMBULATORY - NONE [facility] Nov 07, 2021 06:00 PM AMBULATORY - NONE [facility] Nov 09, 2021 03:30 PM AMBULATORY - MEDICINE [facility] Nov 29, 2021 01:30 PM AMBULATORY - MEDICINE [facility] Nov 29, 2021 02:30 PM AMBULATORY - MEDICINE [facility] Dec 07, 2021 04:45 PM AMBULATORY - NONE [facility] Dec 12, 2021 02:30 PM AMBULATORY - SURGERY [facility] Dec 15, 2021 10:00 AM AMBULATORY - MEDICINE [facility] Dec 15, 2021 12:30 PM AMBULATORY - NONE [facility] Dec 15, 2021 12:45 PM AMBULATORY - NONE [facility] Dec 15, 2021 02:30 PM AMBULATORY - SURGERY [facility] Dec 20, 2021 02:00 PM AMBULATORY - NONE [facility] Dec 22, 2021 03:30 AM AMBULATORY - NONE [facility] Jan 02, 2022 05:10 PM AMBULATORY - REHAB MEDICINE [facility] Jan 03, 2022 05:00 PM AMBULATORY - REHAB MEDICINE [facility] Jan 05, 2022 04:00 PM AMBULATORY - NONE [facility] Jan 10, 2022 10:00 AM AMBULATORY - SURGERY [facility] Jan 10, 2022 02:30 PM AMBULATORY - MEDICINE [facility] Social History: Smoking Status (Most current) and Tobacco Use (All prior to encounter date) This section includes the most current, and the historical, smoking and tobacco-related health factors from the [place] facility where the Encounter took place.Current Smoking Status This section includes the most current smoking, or tobacco-related health factor, from the [facility] where the Encounter took place. Date/Time Current Smoking Status Comment Facility Apr 25, 2021 11:00 AM VA-TOBACCO NEVER USED [place] [facility] Tobacco Use History This section includes a history of the smoking, or tobacco- related health factors, that were collected on or before the date of the Encounter. The data comes from the [facility] where the Encounter took place. Date/Time Smoking Status/Tobacco Use Comment [facility] it July 09, 2020 02:00 PM VA-TOBACCO FORMER USER [place] [facility] July 09, 2020 02:00 PM VA-TOBACCO QUIT 15 YRS OR MORE [facility] Apr 17, 2019 02:39 PM INPT NO TOBACCO USE IN LAST 30 DAYS [facility] Feb 04, 2019 10:37 AM [place]-TO[place]ACCO NEVER USED [place] [facility] Oct 15, 2018 02:43 PM [...] 03:28 PM VA-TOBACCO FORMER USER [place] [facility] Jan 30, 2018 03:28 PM [place]-TO[place]ACCO QUIT 15 YRS OR MORE [facility] [...] comes from all [facility]. Date Advance Directives Provider Source May 29, 2017 CLINICAL WARNING CORNELIO FREITAS [place] [facility] May 16, 2017 ADVANCE DIRECTIVE SERENITY BUENROSTRO [facility] May 16, 2017 ADVANCE DIRECTIVE DISCUSSION SER[place]ITY [place]ROSTRO [place] [facility] May 04, 2017 CLINICAL WARNING MAGO DIAMOND [facility] May 04, 2017 CLINICAL WARNING GAEL ROSARIO [facility] Apr 26, 2017 CLINICAL WARNING JENNIFER DE LEON [facility] Jan 01, 2017 CLINICAL WARNING AYDE WELLS [facility] Jun 09, 2004 ADVANCE DIRECTIVE VILLARREALDARYL WEBSTER [facility] Jun 07, 2004 ADVANCE DIRECTIVE SHERYL HOLLOWAY [facility] Radiology Reports: +/- 30 days of [...] treatment facilities. Date/Time Radiology Report Provider Source Nov 02, 2021 04:01 PM KNEE RIGHT 3 VIEWS: MOOSE GROVER [facility] JESSICA MOJICA [id number] -[birth year], [birth year] 7 M Exm Date: NOV 02, 2021@16:01 Req Phys: CARIDAD DENNIS Pat Loc: [facility] Img Loc: MAIN X-RAY Service: Unknown (Case [id number] COMPLETE) KNEE RIGHT 3 VIEWS (RAD Det elle) CPT:30053 Proc Modifiers : STANDING RIGHT, STANDING LEFT CPT Modifiers : RT RIGHT SIDE Reason for Study: knee pain Clinical History: [place] IS NOT under investigation for COVID-19 or is COVID-19 negative knee pain Responsible provider name and phone n umber to notify for critical findings if other than user dheeraj su the order and pager listed below: User placing orders pager: [phone] LAST CREATININE 0.7 (07/29/21) Report Status: Verified Date Reported: NOV 02, 2021 Date Verified: NOV 02, 2021 Tool Honing Machine Set Up Operator E-Sig:/ES/MOOSE GROVER MD Report: EXAM: KNEE RIGHT 3 VIEWS 11/02/2021 REASON FOR STUDY: knee pain COMPARISON: None. 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 Mild degenerative change of the m edial compartment. There is no fracture. There is a small knee harshal nt effusion. Bones appear demineralized. Moderate vascular calcifi cations. Primary Interpreting Staff: MOOSE GROVER MD, RADIOLOGIST (Tool Honing Machine Set Up Operator) /[facility] Nov 02, 2021 04:01 PM KNEE LEFT 3 VIEWS: MARCIANO FRANCISCO [facility] HEATH MOJICASydney GRAFF [id number] -DEC 03 194 7 M Exm Date: NOV 02, 2021@16:01 Req Phys: CARIDAD DENNIS Pat Loc: [facility] Img Loc: MAIN X-RAY Service: Unknown (Case [id number] COMPLETE) KNEE LEFT 3 VIEWS (RAD Deta iled) CPT:34389 Proc Modifiers : STANDING RIGHT, STANDING LEFT CPT Modifiers : LT LEFT SIDE Reason for Study: knee pain Clinical History: IS NOT under investigation for COVID-19 or is COVID-19 negative knee pain Responsible provider name and phone n umber to notify for critical findings if other than user placin g the order and pager listed below: User placing orders pager: [phone] LAST CREATININE 0.7 (07/29/21) Report Status: Verified Date Reported: NOV 02, 2021 Date Verified: NOV 02, 2021 Tool Honing Machine Set Up Operator E-Sig:/ES/MARCIANO FRANCISCO MD Report: EXAMINATION: KNEE LEFT 3 VIEWS 11/02/2021 4:01 P M INDICATION: knee pain Impression: Moderate degenerative narrowing of the medial a nd patellofemoral compartments. Slight bony spurring along the me dial and patellofemoral joint line margins. No significa nt joint effusion. Vascular calcification. Surgical clips in the m edial subcutaneous tissues of the proximal leg . Primary Interpreting Staff: MARCIANO FRANCISCO MD, RADIOLOGIST (Tool Honing Machine Set Up Operator) /[facility] Oct 26, 2021 05:14 PM LNR INCIDENTAL NODULE LD FOLLOW UP: JOSE SIMON [facility] XAVIERFINAJESSICA MATUTE [id number] -DEC 03 [birth year] 7 M Exm Date: OCT 26, 2021@17:14 Req Phys: CARIDAD DENNIS Pat Loc: [facility] PACT SAPPHIRE 4E (Req'g Lo Img Loc: CT IMAGING Service: Unknown (Case [id number] COMPLETE) LNR INCIDENTAL NODULE LD FO LLOW U(CT Detailed) CPT:33405 Reason for Study: ground glass opacity from f/u Clinical History: want to schedule for september 06 IS NOT under investigation for COVID-19 or is COVID-19 negative Defer to radiologist for final CT protocol. Responsible provider name and phone number to n otify for critical findings if other than user placing the order a nd pager listed below: User placing orders pager: [phone] LAST 3: Collection DT Specimen Test Name [...] PLASMA ESTIMATED GFR(eGF >60 Ref: >=60 Allergies: ([place] only) RIVAROXABAN (Jul 25, 2017) Report Status: Verified Date Reported: OCT 27, 2021 Date Verified: OCT 27, 2021 Tool Honing Machine Set Up Operator E-Sig:/ES/JOSE NUNEZ MD Report: EXAM: Non-Contrast Low-Dose [...] mancini) Primary Interpreting Resident: TRACY THOMPSON MD, HISTOLOGY MANAGER /cvm Encounter Notes: All associated encounter notes This section contains the clinical notes associated to the Encounter. Date/Time Encounter Note(s) Provider Source Oct 10, 2021 10:26 AM TELEHEALTH NOTE: FRANKLIN RICHEY IS [facility] LOCAL TITLE: REMOTE TEMPERATURE MONITORING STANDARD TITLE: TELEHEALTH NOTE DATE OF NOTE: OCT 10, 2021@10:26 ENTRY DATE: OCT 10, 2021@10:26:46 AUTHOR: FRANKLIN RICHEY EXP COSIGNER: URGENCY: STATUS: COMPLETED REMOTE TEMPERATURE MONITORING Has ADDENDA * Enrollment Qualifying Diagnosis: diabetes foot This patient was educated on our remote tempera ture monitoring program and agrees to participate. This is a renewal order. /vinicio/ FRANKLIN RICHEY NP NURSE PRACTITIONER Signed: 10/10/2021 10:42 10/11/2021 ADDENDUM STATUS: COMPLETED Podimetric mat ordered on . Patient should receive mat in 2-5 business days. /vinicio/ FRANKLIN CARABALLO Telehealth Reactor Technician Signed: 10/11/2021 08:46
--- OUTSIDE RECORDS SUMMARY | 2021-12-23 19:33 | XMS_ITS | Encounter Summary ---
:1945 Author Organization [facility] Address [address] [place] [address] Support Name Relationship Address Phone FRANCES GANDARA Unavailable [address] [place] [address] FRANCES GANDARA Unavailable [address] [place] [address] FRANCES GANDARA Unavailable [address] [place] [address] FRANCES GANDARA Unavailable [address] [place] [address] Insurance Providers: All historical and current Section [...] MEDICARE MEDICARE PART Apr 19, PART A [id number] Whit MOJICA (WNR) (M) A 2007 50A [phone] JESSICA MEDICARE MEDICARE PART Apr 19, PART A [id number] Whit MOJICA (WNR) (M) A 2007 [id number] [phone] JESSICA Selected Encounter This section includes the [place] for the Encounter. Date/Time Encounter Type Encounter Description Reason Provider Source Sep 22, 2021 12:00 Outpatient Encounter COMMUNITY CARE AM [...] 2021 07:00 AM AMBULATORY - NONE [facility] Sep 28, 2021 01:30 PM AMBULATORY - SURGERY [facility] Oct 11, 2021 02:30 PM AMBULATORY - MEDICINE [facility] Oct 26, 2021 04:45 PM AMBULATORY - NONE [facility] Nov 02, 2021 04:30 PM AMBULATORY - NONE [facility] Nov 07, 2021 06:00 PM AMBULATORY - NONE [facility] Nov 09, 2021 03:30 PM AMBULATORY - MEDICINE [facility] Nov 29, 2021 01:30 PM AMBULATORY - MEDICINE [facility] Nov 29, 2021 02:30 PM AMBULATORY - MEDICINE [facility] Dec 07, 2021 04:45 PM AMBULATORY - NONE [facility] Dec 12, 2021 02:30 PM AMBULATORY - SURGERY [facility] Dec 15, 2021 10:00 AM AMBULATORY - MEDICINE [facility] Dec 15, 2021 12:30 PM AMBULATORY - NONE [facility] Dec 15, 2021 12:45 PM AMBULATORY - NONE [facility] Dec 15, 2021 02:30 PM AMBULATORY - SURGERY [facility] Dec 20, 2021 02:00 PM AMBULATORY - NONE [facility] Dec 22, 2021 03:30 AM AMBULATORY - NONE [facility] Jan 02, 2022 05:10 PM AMBULATORY - REHAB MEDICINE [facility] Jan 03, 2022 05:00 PM AMBULATORY - REHAB MEDICINE [facility] Jan 05, 2022 04:00 PM AMBULATORY - NONE [facility] Social History: Smoking Status [...] Encounter took place. Date/Time Current Smoking Status [facility] Facility Apr 25, 2021 11:00 AM VA-TOBACCO NEVER USED [facility] Tobacco Use History This section includes a history of the smoking, or tobacco- related health factors, that were collected on or before the date of the Encounter. The data comes from the [place] facility where the Encounter took place. Date/Time Smoking Status/Tobacco Use Comment Facil ity July 09, 2020 02:00 PM [facility] July 09, 2020 02:00 PM VA-TOBACCO QUIT [address] [facility] Apr 17, 2019 02:39 PM INPT NO TOBACCO USE IN LAST [address] [facility] Feb 04, 2019 10:37 AM VA-TOBACCO NEVER USED [facility] Oct 15, 2018 02:43 PM INPT NO TOBACCO USE IN LAST [address] [facility] Oct 13, 2018 11:30 PM INPT NO TOBACCO USE IN LAST [address] [facility] Sep 02, 2018 05:50 PM INPT NO TOBACCO USE IN LAST [address] [facility] Aug 12, 2018 07:28 PM INPT NO TOBACCO USE IN LAST [address] [facility] Jan 30, 2018 03:28 PM VA-TOBACCO FORMER USER MIN [facility] Jan 30, 2018 03:28 PM VA-TOBACCO QUIT [address] [facility] May 29, 2017 04:53 PM INPT NO TOBACCO USE IN LAST [address] [facility] Apr 25, 2017 10:44 PM INPT NO TOBACCO USE IN LAST [address] [facility] Jan 01, 2017 06:40 PM INPT NO TOBACCO USE IN LAST [address] [facility] Dec 21, 2016 02:43 PM FORMER TOBACCO USER 7Y OR GRE[address] [facility] Sep 24, 2013 08:52 AM FORMER TOBACCO USER 7Y OR GRE[address] [facility] Advance Directives: All historical and current Section Date Range: From patient's date of to the date document was created. This section includes ALL of a patient's completed or amended [place] Advance and Rescinded Directives. The entries below indicate that a directive exists for the patient, but an actual copy is not included with this document. The data comes from all [place] facilities. Date Advance Directives Provider Source May 29, 2017 CLINICAL WARNING CORNELIO FREITAS [facility] May 16, 2017 ADVANCE DIRECTIVE SERENITY BUENROSTRO [facility] May 16, 2017 ADVANCE DIRECTIVE DISCUSSION SERENITY BUENROSTRO [place] [facility] May 04, 2017 CLINICAL WARNING MAGO DIAMOND [facility] May 04, 2017 [address] GAEL ROSARIO [facility] Apr 26, 2017 CLINICAL WARNING SOILA DE LEONSSGIOVANNI Sherman [facility] Jan 01, 2017 CLINICAL WARNING RUSSELLAYDE Garay [facility] Jun 09, 2004 ADVANCE DIRECT[address] DARYL VILLARREAL [facility] Jun 07, 2004 ADVANCE DIRECTIVE SHERYL HOLLOWAY [facility] Encounter Notes: All associated encounter notes This section contains the clinical notes associated to the Encounter. Date/Time Encounter Note(s) Provider Source Sep 22, 2021 12:00 AM [facility] LOC[facility] TITLE: COMMUNITY CARE CONSULT RESULT PODI ATRY STANDARD TITLE: NONVA CONSULT DATE OF NOTE: SEP 22, 2021 ENTRY DATE: OCT 25 022@07:44:55 AUTHOR: DERRICK YBARRA EXP COSIGNER: URGENCY: STATUS: COMPLETED [employer] - Scanned Document COMMUNITY CARE-PODIATRY [facility] APPOINTMENT INFORMATION Documentation received from non-VA provider and scanned into [employer]. /vinicio/ DERRICK PROCESS Signed: 10/25/2021 07:44
--- OUTSIDE RECORDS SUMMARY | 2021-12-23 19:37 | XMS_ITS | Encounter Summary ---
:1945 Author Organization [facility] Address [address] [place] [address] Support Name Relationship Address Phone FRANCES GANDARA Unavailable [address] [place] [address] FRANCES GANDARA Unavailable [address] [place] [address] FRANCES GANDARA Unavailable [address] [place] [address] FRANCES GANDARA Unavailable [address] [place] [address] Insurance Providers: All historical and current Section [...] MEDICARE MEDICARE PART Apr 19, PART A [id number] 800 Whit MOJICA (WNR) (M) A 2007 50A [phone] JESSICA MEDICARE MEDICARE PART Apr 19, PART A [id number] 800 Whit MOJICA (WNR) (M) A 2007 [id number] [phone] JESSICA Selected Encounter This section includes the information on record at [place] for the Encounter. Date/Time Encounter Type Encounter Description Reason Provider Source Nov 01, 2021 04:47 Outpatient Encounter TELEPHONE TRIAGE PM IHE Encounter [...] Date/Time Appointment Type Appointment Facili ty Name Nov 02, 2021 04:30 PM AMBULATORY - NONE [facility] Nov 07, 2021 06:00 PM AMBULATORY - NONE [facility] Nov 09, 2021 03:30 PM AMBULATORY - MEDICINE [facility] Nov 29, 2021 01:30 PM AMBULATORY - MEDICINE [facility] Nov 29, 2021 02:30 PM AMBULATORY - MEDICINE [facility] Dec 07, 2021 04:45 PM AMBULATORY - NONE [facility] Dec 12, 2021 02:30 PM AMBULATORY - SURGERY [facility] Dec 15, 2021 10:00 AM AMBULATORY - MEDICINE [facility] Dec 15, 2021 12:30 PM AMBULATORY - NONE [facility] Dec 15, 2021 12:45 PM AMBULATORY - NONE [facility] Dec 15, 2021 02:30 PM AMBULATORY - SURGERY [facility] Dec 20, 2021 02:00 PM AMBULATORY - NONE [facility] Dec 22, 2021 03:30 AM AMBULATORY - NONE [facility] Jan 02, 2022 05:10 PM AMBULATORY - REHAB MEDICINE [facility] Jan 03, 2022 05:00 PM AMBULATORY - REHAB MEDICINE [facility] Jan 05, 2022 04:00 PM AMBULATORY - NONE [facility] Jan 10, 2022 10:00 AM AMBULATORY - SURGERY [facility] Jan 10, 2022 02:30 PM AMBULATORY - MEDICINE [facility] Jan 10, 2022 03:30 PM AMBULATORY - MEDICINE [facility] Feb 01, 2022 03:30 PM AMBULATORY - SURGERY [facility] [...] the Encounter. The data comes from all [facility]. Test Date/Time Test Type Test Details Facility Name Nov 26, 2021 12:00 Laboratory - HEMOGLOBIN A1C BLOOD SP [facility] AM Chemistry Order ONCE Dec 13, 2021 11:50 Consult Order COMMUNITY CARE-DENTAL GEN [facility] AM SERV Cons Civil Preparedness Coordinator's Choice Dec 15, 2021 12:00 Laboratory - COMPREHENSIVE METABOLIC [facility] Chemistry Order PANEL+MG PLASMA SP Dec 15, 2021 12:00 Laboratory - HEMOGLOBIN A1C BLOOD SP [facility] AM Chemistry Order Dec 15, 2021 12:00 Laboratory - C-REACTIVE PROTEIN PLASMA MIN [facility] AM Chemistry Order SP Dec 15, 2021 12:00 Laboratory - SED RATE BLOOD SP [facility] AM Chemistry Order Dec 15, 2021 12:00 Laboratory - TSH W/REFLEX TO FREE T4 [facility] AM Chemistry Order PLASMA SP Dec 15, 2021 12:00 Laboratory - CBC & DIFF BLOOD SP [facility] AM Chemistry Order Dec 15, 2021 11:15 Consult Order WOUND PLATE INSPECTOR SERVICE OUTPT [facility] AM Cons Civil Preparedness Coordinator's Choice Dec 15, 2021 11:15 Consult Order COMMUNITY CARE-WOUND CARE MIN [facility] AM PC Cons Civil Preparedness Coordinator's Choice Dec 15, 2021 11:36 Consult Order UROLOGY OUTPT Cons PIERREI S [facility] AM Civil Preparedness Coordinator's Choice Dec 15, 2021 11:51 Consult Order GASTROENTEROLOGY OUTPT [facility] AM Cons Civil Preparedness Coordinator's Choice Dec 15, 2021 12:01 Consult Order NEUROLOGY OUTPT Cons RACHELLEO LIS [facility] PM Civil Preparedness Coordinator's Choice Dec 16, 2021 12:00 Imaging - Magnetic MRI FOOT RIGHT (P) [facility] AM Resonance Imaging (MRI) Order Dec 16, 2021 08:41 Consult Order OT OCCUPATIONAL THERAPY [facility] PM OUTPT PACT Cons Civil Preparedness Coordinator's Choice Social History: Smoking Status (Most current) and [...] 25, 2021 11:00 AM VA-TOBACCO NEVER USED [facility] Tobacco Use History This section includes a history of the smoking, or tobacco- related health factors, that were collected on or before the date of the Encounter. The data comes from the [place] facility where the Encounter took place. Date/Time Smoking Status/Tobacco Use Comment [facility] July 09, 2020 02:00 PM [facility]AC[facility] July 09, 2020 02:00 PM VA-TOBACCO QUIT 15 YRS OR MORE [facility] Apr 17, 2019 02:39 PM INPT NO TOBACCO USE IN LAST 30 DAYS [facility] Feb 04, 2019 10:37 AM VA-TOBACCO NEVER USED MINN [facility] Oct 15, 2018 02:43 PM [...] 2018 03:28 PM VA-TOBACCO FORMER USER MIN [facility] Jan 30, 2018 03:28 PM VA-TOBACCO QUIT [...] May 16, 2017 ADVANCE DIRECTIVE SERENITY BUENROSTRO [facility] May 16, 2017 ADVANCE DIRECTIVE DISCUSSION [facility] May 04, 2017 CLINICAL WARNING MAGO DIAMOND [facility] May 04, 2017 CLINICAL WARNING GAEL ROSARIO [facility] Apr 26, 2017 CLINICAL WARNING JENNIFER DE LEON [facility] Jan 01, 2017 CLINICAL WARNING AYDE WELLS [facility] Jun 09, 2004 ADVANCE DIRECTIVE DARYL VILLARREAL [facility] Jun 07, 2004 ADVANCE DIRECTIVE SHERYL HOLLOWAY [facility] A [facility] Radiology Reports: +/- 30 days [...] PM KNEE RIGHT 3 VIEWS: MOOSE GROVER [facility] JESSICA MOJICA [id number] -[birth year] 7 M Exm Date: NOV 02, 2021@16:01 Req Phys: CARIDAD DENNIS Pat Loc: [facility] Img Loc: MAIN X-RAY Service: Unknown (Case [id number] COMPLETE) KNEE RIGHT 3 VIEWS (RAD Det elle) CPT:38270 Proc Modifiers : STANDING RIGHT, STANDING LEFT CPT Modifiers : RT RIGHT SIDE Reason for Study: knee pain Clinical History: IS NOT under investigation for COVID-19 or is COVID-19 negative knee pain Responsible provider name and phone n umber to notify for critical findings if other than user joseluisin g the order and pager listed below: User placing orders pager: [phone] LAST CREATININE 0.7 (07/29/21) Report Status: Verified Date Reported: NOV 02, 2021 Date Verified: NOV 02, 2021 Lockstitch Cup Setter E-Sig:/ES/MOOSE GROVER MD Report: EXAM: KNEE RIGHT 3 VIEWS 11/02/2021 REASON FOR STUDY: knee pain COMPARISON: None. 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 Mild degenerative change of the m edial compartment. There is no fracture. There is a small knee harshal nt effusion. Bones appear demineralized. Moderate vascular calcifi cations. Primary Interpreting Staff: MOOSE GROVER MD, RADIOLOGIST (Lockstitch Cup Setter) /[facility] Nov 02, 2021 04:01 PM KNEE LEFT 3 VIEWS: MARCIANO FRANCISCO [facility] JESSICA MOJICA [id number] -DEC 03 7 M Exm Date: NOV 02, 2021@16:01 Req Phys: CARIDAD DENNIS Pat Loc: [facility] Img Loc: MAIN X-RAY Service: Unknown (Case [id number] COMPLETE) KNEE LEFT 3 VIEWS (RAD Deta iled) CPT:03931 Proc Modifiers : STANDING RIGHT, STANDING LEFT CPT Modifiers : LT LEFT SIDE Reason for Study: knee pain Clinical History: [place] IS NOT under investigation for COVID-19 or is COVID-19 negative knee pain Responsible provider name and phone n umber to notify for critical findings if other than user placin g the order and pager listed below: User placing orders pager: [phone] LAST CREATININE 0.7 (07/29/21) Report Status: Verified Date Reported: NOV 02, 2021 Date Verified: NOV 02, 2021 Lockstitch Cup Setter E-Sig:/ES/MARCIANO FRANCISCO MD Report: EXAMINATION: KNEE LEFT [...] Primary Interpreting Staff: MARCIANO FRANCISCO MD, RADIOLOGIST (Lockstitch Cup Setter) /[facility] Oct 26, 2021 05:14 PM LNR INCIDENTAL NODULE LD FOLLOW UP: JOSE SIMON [facility] JESSICA MOJICA [id number] -DEC 03 7 M Exm Date: OCT 26, 2021@17:14 Req Phys: CARIDAD DENNIS Pat Loc: [facility] PA[facility] 4E (Req'g Lo Img Loc: CT IMAGING Service: Unknown (Case [id number] COMPLETE) LNR INCIDENTAL NODULE LD FO LLOW U(CT Detailed) CPT:82302 Reason for Study: ground glass opacity from f/u Clinical History: want to schedule for september 06 [place] IS NOT under investigation for COVID-19 or is COVID-19 negative Defer to radiologist for final CT protocol. Responsible provider name and phone number to n otify for critical findings if other than user placing the order a nd pager listed below: User placing orders pager: [phone] LAST 3: Collection DT Specimen Test Name [...] PLASMA ESTIMATED GFR(eGF >60 Ref: >=60 Allergies: ([place] only) RIVAROXABAN (Jul 25, 2017) Report Status: Verified Date Reported: OCT 27, 2021 Date Verified: OCT 27, 2021 Lockstitch Cup Setter E-Sig:/ES/JOSE NUNEZ MD Report: EXAM: Non-Contrast Low-Dose [...] mancini) Primary Interpreting Resident: TRACY THOMPSON MD, FRACTIONATING STILL OPERATOR /cvm Encounter Notes: All associated encounter notes This section contains the clinical notes associated to the Encounter. Date/Time Encounter Note(s) Provider Source Nov 01, 2021 04:47 PM REPORT OF CONTACT: MONSE GRIMES [facility] LOCAL TITLE: PATIENT CONTACT NOTE STANDARD TITLE: REPORT OF CONTACT DATE OF NOTE: NOV 01, 2021@16:47 ENTRY DATE: NOV 01, 2021@16:47:25 AUTHOR: MONSE GRIMES EXP COSIGNER: URGENCY: STATUS: COMPLETED PATIENT CONTACT NOTE Has [facility] Call [facility] called stating that he would like to have meds for acid reflux. request a call back from [facility] team to discuss. /vinicio/ MONSE BERMUDEZ [address] [facility] MSA Signed: 11/01/2021 16:58 Receipt Acknowledged By: * AWAITING SIGNATURE * CARIDAD DENNIS STUART 11/02/2021 08:49 /vinicio/ Myrna Schofield RNC riveter pneumatic 11/02/2021 ADDENDUM STATUS: COMPLETED call to to get more info and schedule ap pt but received vm so message left. he has recall for Nov 26. advised to call [facility] to schedule that appt (there are opening as soon as 2 wee ks for routine f/u), and to talk to triage nurse if feels cannot wait so can better determine dispos ition. /vinicio/ Myrna Schofield RNC riveter pneumatic Signed: 11/02/2021 08:48 Receipt Acknowledged By: * AWAITING SIGNATURE * MONSE GRIMES
--- OUTSIDE RECORDS SUMMARY | 2021-12-23 19:41 | XMS_ITS | Encounter Summary ---
:1945 Author Organization [facility] Address [address] [place] [id number] Support Name Relationship Address Phone FRANCES GANDARA Unavailable [address] [place] [address] FRANCES GANDARA Unavailable [address] [place] [address] FRANCES GANDARA Unavailable [address] [place] [address] FRANCES GANDARA Unavailable [address] [place] [address] Insurance Providers: All historical and current Section [...] MEDICARE MEDICARE PART Apr 19, PART A [id number] YUNIORWhit (WNR) (M) A 2007 50A [phone] JESSICA MEDICARE MEDICARE PART Apr 19, PART A [id number] KAUSHALEDSONWhit ONOFRE (WNR) (M) A 2007 [id number] [phone] JESSICA Selected Encounter This section includes the [...] May 29, 2017 CLINICAL WARNING CORNELIO FREITAS [facility] May 16, 2017 ADVANCE DIRECTIVE SERENITY BUENROSTRO [facility] May 16, 2017 ADVANCE DIRECTIVE DISCUSSION SERENITY BUENROSTRO [place] [facility] May 04, 2017 CLINICAL WARNING MAGO DIAMOND [facility] May 04, 2017 CLINICAL WARNING GAEL ROSARIO [facility] Apr 26, 2017 CLINICAL WARNING JENNIFER DE LEON [facility] Jan 01, 2017 CLINICAL WARNING AYDE WELLS [facility] Jun 09, 2004 ADVANCE DIRECTIVE DARYL VILLARREAL [facility] Jun 07, 2004 ADVANCE DIRECTIVE SHERYL HOLLOWAY [facility]
--- OUTSIDE RECORDS SUMMARY | 2021-12-23 19:42 | XMS_ITS | Encounter Summary ---
:1945 Author Organization Department [facility] rs Address [address] [place] [address] Support Name Relationship Address Phone FRANCES GANDARA Unavailable [address] [place] [address] FRANCES GANDARA Unavailable [address] [place] [address] FRANCES GANDARA Unavailable [address] [place] [address] FRANCES GANDARA Unavailable [address] [place] [address] Insurance Providers: All historical and current Section [...] MEDICARE MEDICARE PART Apr 19, PART A [id number] Whit MOJICA (WNR) (M) A 2007 50A [phone] JESSICA MEDICARE MEDICARE PART Apr 19, PART A [id number] Whit MOJICA (WNR) (M) A 2007 [id number] [phone] JESSICA Selected Encounter This section includes the information on record at ID for the Encounter. Date/Time Encounter Type Encounter Description Reason Provider Source Nov 07, 2021 06:00 Outpatient Encounter ADMIN MORE DUMONT PM (MASNONCT) IHE Encounter Template Text not used by ID Plan of Treatment: Future Appointments (+ 6 [...] Appointment Type Appointment Facili ty Name Nov 09, 2021 03:30 PM AMBULATORY - MEDICINE [facility] Nov 29, 2021 01:30 PM AMBULATORY - MEDICINE [facility] Nov 29, 2021 02:30 PM AMBULATORY - MEDICINE [facility] Dec 07, 2021 04:45 PM AMBULATORY - NONE [facility] Dec 12, 2021 02:30 PM AMBULATORY - SURGERY [facility] Dec 15, 2021 10:00 AM AMBULATORY - MEDICINE [facility] Dec 15, 2021 12:30 PM AMBULATORY - NONE [facility] Dec 15, 2021 12:45 PM AMBULATORY - NONE [facility] Dec 15, 2021 02:30 PM AMBULATORY - SURGERY [facility] Dec 20, 2021 02:00 PM AMBULATORY - NONE [facility] Dec 22, 2021 03:30 AM AMBULATORY - NONE [facility] Jan 02, 2022 05:10 PM AMBULATORY - [facility] Jan 03, 2022 05:00 PM AMBULATORY - [facility]HAB [facility] Jan 05, 2022 04:00 PM AMBULATORY - NONE [facility] Jan 10, 2022 10:00 AM AMBULATORY - SURGERY [facility] Jan 10, 2022 02:30 PM AMBULATORY - MEDICINE [facility] Jan 10, 2022 03:30 PM AMBULATORY - MEDICINE [facility] Feb 01, 2022 03:30 PM AMBULATORY - SURGERY [facility] Feb 09, 2022 02:40 PM AMBULATORY - SURGERY [facility] Feb 14, 2022 10:00 AM AMBULATORY - SURGERY [facility] Active, Pending, and Scheduled Orders This [...] The data comes from all ID treatment [facility]. Test Date/Time Test Type Test Details Facility Name Nov 26, 2021 12:00 Laboratory - HEMOGLOBIN A1C BLOOD SP [facility] AM Chemistry Order ONCE Dec 13, 2021 11:50 Consult Order COMMUNITY CARE-DENTAL GEN [facility] AM SERV Cons Lap Machine Tender's Choice Dec 15, 2021 12:00 Laboratory - COMPREHENSIVE METABOLIC [facility] AM Chemistry Order PANEL+MG PLASMA SP Dec 15, 2021 12:00 Laboratory - HEMOGLOBIN A1C BLOOD SP [facility] AM Chemistry Order Dec 15, 2021 12:00 Laboratory - C-REACTIVE PROTEIN PLASMA [facility] AM Chemistry Order SP Dec 15, 2021 12:00 Laboratory - SED RATE BLOOD SP [facility] AM Chemistry Order Dec 15, 2021 12:00 Laboratory - TSH W/REFLEX TO FREE T4 [facility] AM Chemistry Order PLASMA SP Dec 15, 2021 12:00 Laboratory - CBC & DIFF BLOOD SP ONCE [facility] AM Chemistry Order Dec 15, 2021 11:15 Consult Order 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 OUTPT [facility] AM Cons Lap Machine Tender's Choice Dec 15, 2021 11:15 Consult Order COMMUNITY CARE-WOUND CARE [facility] AM PC Cons Lap Machine Tender's Choice Dec 15, 2021 11:36 Consult Order UROLOGY OUTPT Cons KERRYAPOLI S [facility] AM Lap Machine Tender's Choice Dec 15, 2021 11:51 Consult [facility] AM Cons Lap Machine Tender's Choice Dec 15, 2021 12:01 Consult Order NEUROLOGY OUTPT Cons RACHELLEO VIBHA [facility] PM Lap Machine Tender's Choice Dec 16, 2021 12:00 Imaging - Magnetic MRI FOOT RIGHT (P) [facility] AM Resonance Imaging (MRI) Order Dec 16, 2021 08:41 Consult Order OT OCCUPATIONAL THERAPY [facility] PM OUTPT PACT Cons Lap Machine Tender's Choice Social History: Smoking Status (Most current) [...] 25, 2021 11:00 AM VA-TOBACCO NEVER USED [facility] Tobacco Use History This section includes [...] 15 YRS OR MORE [facility] Apr 17, 2019 02:39 PM INPT NO TOBACCO USE IN LAST 30 DAYS [facility] Feb 04, 2019 10:37 AM [place]-TOBACCO NEVER USED [place] [facility] Oct 15, 2018 02:43 PM INPT NO TOBACCO USE IN LAST 30 DAYS [facility] Oct 13, 2018 11:30 PM INPT NO TOBACCO USE IN LAST 30 DAYS [facility] Sep 02, 2018 05:50 PM INPT NO TOBACCO USE IN LAST 30 DAYS [facility] Aug 12, 2018 07:28 PM INPT NO TOBACCO USE IN LAST 30 DAYS [facility] Jan 30, 2018 03:28 PM VA-TOBACCO FORMER USER [facility] Jan 30, 2018 03:28 PM VA-TOBACCO QUIT 15 YRS OR MORE [facility] May 29, 2017 04:53 PM INPT NO TOBACCO USE IN LAST 30 DAYS [facility] Apr 25, 2017 10:44 PM INPT NO TOBACCO USE IN LAST 30 DAYS [facility] Jan 01, 2017 06:40 PM INPT NO TOBACCO USE IN LAST 30 DAYS [facility] Dec 21, 2016 02:43 PM FORMER TOBACCO USER 7Y OR GREATER [facility] Sep 24, 2013 08:52 AM FORMER TOBACCO USER 7Y OR GREATER [facility] Advance Directives: All historical and [...] 16, 2017 ADVANCE DIRECTIVE DISCUSSION [place]O [place] [facility] May 04, 2017 CLINICAL WARNING MAGO DIAMOND [facility] May 04, 2017 CLINICAL WARNING GAEL ROSARIO [facility] Apr 26, 2017 CLINICAL WARNING JENNIFER DE LEON [facility] Jan 01, 2017 CLINICAL WARNING AYDE WELLS [facility] Jun 09, 2004 ADVANCE DIRECTIVE DARYL VILLARREAL [facility] Jun 07, 2004 ADVANCE DIRECTIVE SHERYL HOLLOWAY [facility] Radiology Reports: +/- 30 days of [...] data comes from all ID treatment facilities. Date/Time Radiology Report Provider Source Nov 02, 2021 04:01 PM KNEE RIGHT 3 VIEWS: MOOSE GROVER [facility] JESSICA MOJICA [id number] -[birth year] 7 M Exm Date: NOV 02, 2021@16:01 Req Phys: CARIDAD DENNIS Pat Loc: [facility] Img Loc: MAIN X-RAY Service: Unknown (Case [id number] COMPLETE) KNEE RIGHT 3 VIEWS (RAD Det elle) CPT:92679 Proc Modifiers : STANDING RIGHT, STANDING LEFT CPT Modifiers : RT RIGHT SIDE Reason for Study: knee pain Clinical History: IS NOT under investigation for COVID-19 or is COVID-19 negative knee pain Responsible provider name and phone n umber to notify for critical findings if other than user dheeraj su the order and pager listed below: User placing orders pager: [phone] LAST CREATININE 0.7 (07/29/21) Report Status: Verified Date Reported: NOV 02, 2021 Date Verified: NOV 02, 2021 Sole Rougher E-Sig:/ES/MOOSE GROVER MD Report: EXAM: KNEE RIGHT 3 VIEWS 11/02/2021 REASON FOR STUDY: knee pain COMPARISON: None. 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 Mild degenerative change of the m edial compartment. There is no fracture. There is a small knee harshal nt effusion. Bones appear demineralized. Moderate vascular calcifi cations. Primary Interpreting Staff: MOOSE GROVER MD, RADIOLOGIST (Sole Rougher) /[facility] Nov 02, 2021 04:01 PM KNEE LEFT 3 VIEWS: MARCIANO FRANCISCO FRANCFLO [facility] JESSICA MOJICA [id number] -DEC 03 7 M Exm Date: NOV 02, 2021@16:01 Req Phys: CARIDAD DENNIS Pat Loc: [facility] Img Loc: MAIN X-RAY Service: Unknown (Case [id number] COMPLETE) KNEE LEFT 3 VIEWS (RAD Detshannon iled) CPT:[id number] Proc Modifiers : STANDING RIGHT, STANDING LEFT CPT Modifiers : LT LEFT SIDE Reason for Study: knee pain Clinical History: IS NOT under investigation for COVID-19 or is COVID-19 negative knee pain Responsible provider name and phone n umber to notify for critical findings if other than user placin g the order and pager listed below: User placing orders pager: [phone] LAST CREATININE 0.7 (07/29/21) Report Status: Verified Date Reported: NOV 02, 2021 Date Verified: NOV 02, 2021 Sole Rougher E-Sig:/ES/MARCIANO FRANCISCO MD Report: EXAMINATION: KNEE LEFT [...] Primary Interpreting Staff: MARCIANO FRANCISCO MD, RADIOLOGIST (Sole Rougher) /[facility] Oct 26, 2021 05:14 PM LNR INCIDENTAL NODULE LD FOLLOW UP: JOSE SIMON [facility] JESSICA MOJICA [id number] -DEC 03 7 M Exm Date: OCT 26, 2021@17:14 Req Phys: CARIDAD DENNIS Pat Loc: [facility] PACT SAPPHIRE 4E (Req'g Lo Img Loc: CT IMAGING Service: Unknown (Case [id number] COMPLETE) LNR INCIDENTAL NODULE LD FO LLOW U(CT Detailed) CPT:96541 Reason for Study: ground glass opacity from f/u Clinical History: want to schedule for september 06 Melbeta IS NOT under investigation for COVID-19 or is COVID-19 negative Defer to radiologist for final CT protocol. Responsible provider name and phone number to n otify for critical findings if other than user placing the order a nd pager listed below: User placing orders pager: [phone] LAST 3: Collection DT Specimen Test Name [...] PLASMA ESTIMATED GFR(eGF >60 Ref: >=60 Allergies: ([place] only) RIVAROXABAN (Jul 25, 2017) Report Status: Verified Date Reported: OCT 27, 2021 Date Verified: OCT 27, 2021 Sole Rougher E-Sig:/ES/JOSE NUNEZ MD Report: EXAM: Non-Contrast Low-Dose [...] mancini) Primary Interpreting Resident: TRACY THOMPSON MD, SURVEILLANCE TECHNICIAN /cvm
--- OUTSIDE RECORDS SUMMARY | 2021-12-23 19:44 | XMS_ITS | Encounter Summary ---
:1945 Author Organization Department [facility] rs Address [address] [place] [address] Support Name Relationship Address Phone FRANCES GANDARA Unavailable [address] [place] [address] FRANCES GANDARA Unavailable [address] [place] [address] FRANCES GANDARA Unavailable [address] [place] [address] FRANCES GANDARA Unavailable [address] [place] [address] Insurance Providers: All historical and current Section [...] MEDICARE MEDICARE PART Apr 19, PART A [id number] Whit MOJICA (WNR) (M) A 2007 50A [phone] JESSICA MEDICARE MEDICARE PART Apr 19, PART A [id number] 800 Whit MOJICA (WNR) (M) A 2007 [id number] [phone] JESSICA Selected Encounter This section includes the [place] on [place] at [place] for the Encounter. Date/Time Encounter Type Encounter Description Reason Provider Source Aug 23, 2021 12:00 Outpatient Encounter ADMIN MORE [facility]UMONT PM (MASNONCT) [...] 2021 12:59 PM AMBULATORY - MEDICINE [facility] Sep 04, 2021 07:33 PM AMBULATORY - MEDICINE [facility] Sep 06, 2021 01:30 PM AMBULATORY - NONE [facility] Sep 21, 2021 02:30 PM AMBULATORY - SURGERY [facility] Sep 22, 2021 01:00 PM AMBULATORY - NONE [facility] Sep 28, 2021 07:00 AM AMBULATORY - NONE [facility] Sep 28, 2021 01:30 PM AMBULATORY - SURGERY [facility] Oct 11, 2021 02:30 PM AMBULATORY - MEDICINE [facility] Oct 26, 2021 04:45 PM AMBULATORY - NONE [facility] Nov 02, 2021 04:30 PM AMBULATORY - NONE [facility] Nov 07, 2021 06:00 PM AMBULATORY - NONE [facility] Nov 09, 2021 03:30 PM AMBULATORY - MEDICINE [facility] Nov 29, 2021 01:30 PM AMBULATORY - MEDICINE [facility] Nov 29, 2021 02:30 PM AMBULATORY - MEDICINE [facility] Dec 07, 2021 04:45 PM AMBULATORY - NONE [facility] Dec 12, 2021 02:30 PM AMBULATORY - SURGERY [facility] Dec 15, 2021 10:00 AM AMBULATORY - MEDICINE [facility] Dec 15, 2021 12:30 PM AMBULATORY - NONE [facility] Dec 15, 2021 12:45 PM AMBULATORY - NONE [facility] Dec 15, 2021 02:30 PM AMBULATORY - SURGERY [facility] Lab Results: +/- 30 days [...] Interpretation Reference Range Comment Jul 29, 2021 [facility] DRUG SCREEN PANEL,URINE Spec imen Type: URINE 01:18 PM Comment: Presum ptive Positive by screen, results not confirmed. Ordering Provid er: CARIDAD DENNIS Report Released Date/Time: Jul 29, 2021 01:06 PM Reporting Lab: [facility] [address] [facility] [address] Performing Lab: [facility] [address] [facility] [address] BARBITURATES Negative Negative AMPHETAMINES Negative Negative COCAINE Negative Negative BENZODIAZEPINES Negative Negative CANNABINOIDS Negative Negative METHADONE Negative Negative OPIATES Negative Negative PHENCYCLIDINE Negative Negative ETHANOL,URINE Negative Negative DRUG SCREEN CREAT 64.7 >20.0 OXYCODONE POSITIVE H Negative BUPRENORPHINE Negative Negative TRAMADOL Negative Negative FENTANYL Negative Negative Jul 29, 2021 12:30 PM [facility] HEMOGLOBIN A1C Specim en Type: BLOOD No comment enter ed. Ordering Provid er: CARIDAD DENNIS Report Released Date/Time: Feb 28, 2021 06:22 PM Reporting Lab: [facility] [address] [facility] [address] Performing Lab: [facility] [address] [facility] [address] HEMOGLOBIN A1C 7.0 H 4.0-6.0 Jul 29, 2021 12:30 PM [facility] AST/SGOT Specim en Type: PLASMA No comment enter ed. Ordering Provid er: CARIDAD DENNIS Report Released Date/Time: Feb 28, 2021 06:22 PM Reporting Lab: [facility] [address] [facility] [address] Performing Lab: [facility] [address] [facility] [address] AST/SGOT 13 <34 Jul 29, 2021 12:30 PM [facility] ALT/SGPT Specim en Type: PLASMA No comment enter ed. Ordering Provid er: CARIDAD DENNIS Report Released Date/Time: Feb 28, 2021 06:22 PM Reporting Lab: [facility] [address] [facility] [address] Performing Lab: [facility] [address] [facility] [address] ALT/SGPT 15 <55 Jul 29, 2021 12:30 [facility] BASIC METABOLIC Specimen Type: PLASMA PM PANEL+MG No comment enter ed. Ordering Provid er: CARIDAD DENNIS Report Released Date/Time: Feb 28, 2021 06:22 PM Reporting Lab: [facility] [address] [facility] [address] Performing Lab: [facility] [address] [facility] [address] CREATININE 0.7 0.7-1.2 UREA NITROGEN 12 8-26 GLUCOSE 170 H 74-100 SODIUM 141 136-145 POTASSIUM 3.9 3.5-5.1 CHLORIDE 105 98-107 CO2 28 22-29 CALCIUM 9.1 8.4-10.2 MAGNESIUM 2.3 1.6-2.6 ANION GAP 8 5-15 CREAT EGFR(CKD-EPI) >90 >60 Jul 29, 2021 12:30 PM [facility] CBC Specim en Type: BLOOD No comment enter ed. Ordering Provid er: CARIDAD DENNIS Report Released Date/Time: Feb 28, 2021 06:22 PM Reporting Lab: [facility] [address] [facility] [address] Performing Lab: [facility] [address] WBC 6.29 4.0-11.0 RBC 4.82 4.6-6.2 HGB [...] tobacco-related health factors from the [facility] where the Encounter took place.Current Smoking Status This section includes the most current smoking, or tobacco-related health factor, from the [place] facility where the Encounter took place. Date/Time Current Smoking Status Comment Facility Apr 25, 2021 11:00 AM VA-TOBACCO NEVER USED [facility] Tobacco Use History This section includes a history of the smoking, or tobacco- related health factors, that were collected on or before the date of the Encounter. The data comes from the [place] facility where the Encounter took place. Date/Time Smoking Status/Tobacco Use Comment [facility] July 09, 2020 02:00 PM VA-TOBACCO FORMER USER WILLY BUTLER [facility] July 09, 2020 02:00 PM VA-TOBACCO QUIT 15 YRS OR MORE [facility] Apr 17, 2019 02:39 PM INPT NO TOBACCO USE IN LAST 30 DAYS [facility] Feb 04, 2019 10:37 AM VA-TOBACCO NEVER USED [place] [facility] Oct 15, 2018 02:43 PM INPT NO TOBACCO USE IN LAST 30 DAYS [facility] Oct 13, 2018 11:30 PM INPT NO TOBACCO USE IN LAST 30 DAYS [facility] Sep 02, 2018 05:50 PM INPT NO TOBACCO USE IN LAST 30 DAYS [facility] Aug 12, 2018 07:28 PM INPT NO TOBACCO USE IN LAST 30 DAYS [facility] Jan 30, 2018 03:28 PM VA-TOBACCO FORMER USER [place] [facility] Jan 30, 2018 03:28 PM VA-TOBACCO QUIT 15 YRS OR MORE [facility] May 29, 2017 04:53 PM INPT NO TOBACCO USE IN LAST 30 DAYS [facility] Apr 25, 2017 10:44 PM INPT NO TOBACCO USE IN LAST 30 DAYS [facility] Jan 01, 2017 06:40 PM INPT NO TOBACCO USE IN LAST 30 DAYS [facility] Dec 21, 2016 02:43 PM FORMER TOBACCO USER 7Y OR GREATER [facility] Sep 24, 2013 08:52 AM FORMER TOBACCO USER 7Y OR GREATER [facility] Advance Directives: All historical and current [...] May 29, 2017 CLINICAL WARNING [place]ELIO [facility] [facility] May 16, 2017 ADVANCE DIRECTIVE SERENITY BUENROSTRO [facility] May 16, 2017 ADVANCE DIRECTIVE DISCUSSION SERENITY [place]O [place] [facility] May 04, 2017 CLINICAL WARNING MAGO DIAMOND [facility] May 04, 2017 CLINICAL WARNING GAEL ROSARIO [facility] Apr 26, 2017 CLINICAL WARNING JENNIFER DE LEON [facility] Jan 01, 2017 CLINICAL WARNING AYDE WELLS [facility] Jun 09, 2004 ADVANCE DIRECTIVE DARYL VILLARREAL [facility] Jun 07, 2004 ADVANCE DIRECTIVE SHERYL HOLLOWAY [facility]
--- OUTSIDE RECORDS SUMMARY | 2021-12-23 19:45 | XMS_ITS | Encounter Summary ---
:1945 Author Organization Department [facility] rs Address [address] [place] [address] Support Name Relationship Address Phone FRANCES GANDARA Unavailable [address] [place] [address] FRANCES GANDARA Unavailable [address] [place] [address] FRANCES GANDARA Unavailable [address] [place] [address] FRANCES GANDARA Unavailable [address] [place] [address] Insurance Providers: All historical and current Section [...] MEDICARE MEDICARE PART Apr 19, PART A [id number] Whit MOJICA (WNR) (M) A 2007 [id number] [phone] JESSICA MEDICARE MEDICARE PART Apr 19, PART A [id number] Whit MOJ[place] (WNR) (M) A 2007 50A [phone] JESSICA Selected Encounter This section includes the information on record at [place] for the Encounter. Date/Time Encounter Type Encounter Description Reason Provider Source Aug 11, 2021 12:30 Outpatient Encounter ADMIN MORE DUMONT PM ([place]) [...] 18, 2021 08:00 AM AMBULATORY - NONE [facility] Aug 19, 2021 10:30 AM AMBULATORY - NONE [facility] Aug 23, 2021 12:00 PM AMBULATORY - NONE [facility] Aug 23, 2021 01:00 PM AMBULATORY - NONE [facility] Aug 28, 2021 12:59 PM AMBULATORY - MEDICINE [facility] Sep 04, 2021 07:33 PM AMBULATORY - MEDICINE [facility] Sep 06, 2021 01:30 PM AMBULATORY - NONE [facility] Sep 21, 2021 02:30 PM AMBULATORY - SURGERY [facility] Sep 22, 2021 01:00 PM AMBULATORY - NONE [facility] Sep 28, 2021 07:00 AM AMBULATORY - NONE [facility] Sep 28, 2021 01:30 PM AMBULATORY - SURGERY [facility] Oct 11, 2021 02:30 PM AMBULATORY - MEDICINE [facility] Oct 26, 2021 04:45 PM AMBULATORY - NONE [facility] Nov 02, 2021 04:30 PM AMBULATORY - NONE [facility] Nov 07, 2021 06:00 PM AMBULATORY - NONE [facility] Nov 09, 2021 03:30 PM AMBULATORY - MEDICINE [facility] Nov 29, 2021 01:30 PM AMBULATORY - MEDICINE [facility] Nov 29, 2021 02:30 PM AMBULATORY - MEDICINE [facility] Dec 07, 2021 04:45 PM AMBULATORY - NONE [facility] Dec 12, 2021 02:30 PM AMBULATORY - SURGERY [facility] Lab Results: +/- 30 [...] Interpretation Reference Range Comment Jul 29, 2021 [facility] DRUG SCREEN PANEL,URINE Spec imen Type: URINE 01:18 PM Comment: Presum ptive Positive by screen, results not confirmed. Ordering Provid er: CARIDAD DENNIS Report Released Date/Time: Jul 29, 2021 01:06 PM Reporting Lab: [facility] [address] [facility] [address] Performing Lab: [facility] [address] [facility] [address] BARBITURATES Negative Negative AMPHETAMINES Negative Negative COCAINE Negative Negative BENZODIAZEPINES Negative Negative CANNABINOIDS Negative Negative METHADONE Negative Negative OPIATES Negative Negative PHENCYCLIDINE Negative Negative ETHANOL,URINE Negative Negative DRUG SCREEN CREAT 64.7 >20.0 OXYCODONE POSITIVE H Negative BUPRENORPHINE Negative Negative TRAMADOL Negative Negative FENTANYL Negative Negative Jul 29, 2021 12:30 PM [facility] HEMOGLOBIN A1C Specim en Type: BLOOD No comment enter ed. Ordering Provid er: CARIDAD DENNIS Report Released Date/Time: Feb 28, 2021 06:22 PM Reporting Lab: [facility] [address] [facility] [address] Performing Lab: [facility] [address] [facility] [address] HEMOGLOBIN A1C 7.0 H 4.0-6.0 Jul 29, 2021 12:30 PM [facility] AST/SGOT Specim en Type: PLASMA No comment enter ed. Ordering Provid er: CARIDAD DENNIS Report Released Date/Time: Feb 28, 2021 06:22 PM Reporting Lab: [facility] [address] [facility] [address] Performing Lab: [facility] [address] [facility] [address] AST/SGOT 13 <34 Jul 29, 2021 12:30 PM [facility] ALT/SGPT Specim en Type: PLASMA No comment enter ed. Ordering Provid er: CARIDAD DENNIS Report Released Date/Time: Feb 28, 2021 06:22 PM Reporting Lab: [facility] [address] [facility] [address] Performing Lab: [facility] [address] [facility] [address] ALT/SGPT 15 <55 Jul 29, 2021 12:30 PM [facility] CBC Specim en Type: BLOOD No comment enter ed. Ordering Provid er: CARIDAD DENNIS Report Released Date/Time: Feb 28, 2021 06:22 PM Reporting Lab: [facility] [address] [facility] [address] Performing Lab: [facility] [address] [facility] [address] WBC 6.29 4.0-11.0 RBC 4.82 4.6-6.2 HGB 13.3 L 13.5-17.9 HCT 42.4 41-54 MCV 88.0 80-100 MCH 27.6 27-33 MCHC 31.4 L 32.0-37.5 PLT 286 150-400 MPV 9.5 7.4-10.4 RDW 16.8 H 11.5-14.5 Jul 29, 2021 12:30 [facility] BASIC METABOLIC Specimen Type: PLASMA PM PANEL+MG No comment enter ed. Ordering Provid er: CARIDAD DENNIS Report Released Date/Time: Feb 28, 2021 06:22 PM Reporting Lab: [facility] [address] Performing Lab: [facility] [address] CREATININE 0.7 0.7-1.2 UREA NITROGEN 12 8-26 [...] 11:00 AM [place]-TOBACCO NEVER USED [facility] Tobacco Use History This section includes a history of the smoking, or tobacco- related health factors, that were collected on or before the date of the Encounter. The data comes from the [place] facility where the Encounter took place. Date/Time Smoking Status/Tobacco Use Comment [facility] July 09, 2020 02:00 PM [place]-TOBACCO FORMER USER WILLY BUTLER [facility] July 09, 2020 02:00 PM VA-TOBACCO QUIT 15 YRS OR MORE [facility] Apr 17, 2019 02:39 PM INPT NO TOBACCO USE IN LAST 30 DAYS [facility] Feb 04, 2019 10:37 AM VA-TOBACCO NEVER USED [place] [facility] Oct 15, 2018 02:43 PM INPT NO TOBACCO USE IN LAST 30 DAYS [facility] Oct 13, 2018 11:30 PM INPT NO TOBACCO USE IN LAST 30 DAYS [facility] Sep 02, 2018 05:50 PM INPT NO TOBACCO USE IN LAST 30 DAYS [facility] Aug 12, 2018 07:28 PM INPT NO TOBACCO USE IN LAST 30 DAYS [facility] Jan 30, 2018 03:28 PM VA-TOBACCO FORMER USER [place] [facility] Jan 30, 2018 03:28 PM VA-TOBACCO QUIT 15 YRS OR MORE [facility] May 29, 2017 04:53 PM INPT NO TOBACCO USE IN LAST 30 DAYS [facility] Apr 25, 2017 10:44 PM INPT NO TOBACCO USE IN LAST 30 DAYS [facility] Jan 01, 2017 06:40 PM INPT NO TOBACCO USE IN LAST 30 DAYS [facility] Dec 21, 2016 02:43 PM FORMER TOBACCO USER 7Y OR GREATER [facility] Sep 24, 2013 08:52 AM FORMER TOBACCO USER 7Y OR GREATER [facility] Advance Directives: All historical and current [...] May 16, 2017 ADVANCE DIRECTIVE SERENITY BUENROSTRO [facility] May 16, 2017 ADVANCE DIRECTIVE DISCUSSION SERENITY [place]O [place] [facility] May 04, 2017 CLINICAL WARNING MAGO DIAMOND [facility] May 04, 2017 CLINICAL WARNING GAEL ROSARIO [facility] Apr 26, 2017 CLINICAL WARNING JENNIFER DE LEON [facility] Jan 01, 2017 CLINICAL WARNING AYDE WELLS [facility] Jun 09, 2004 ADVANCE DIRECTIVE DARYL VILLARREAL [facility] Jun 07, 2004 ADVANCE DIRECTIVE SHERYL HOLLOWAY [facility]
--- OUTSIDE RECORDS SUMMARY | 2021-12-23 19:47 | XMS_ITS | Encounter Summary ---
:1945 Author Organization Department [facility] rs Address [address] [place] [address] Support Name Relationship Address Phone FRANCES GANDARA Unavailable [address] [place] [address] FRANCES GANDARA Unavailable [address] [place] [address] FRANCES GANDARA Unavailable [address] [place] [address] FRANCES GANDARA Unavailable [address] [place] [address] Insurance Providers: All historical and current Section [...] MEDICARE MEDICARE PART Apr 19, PART A [id number] 800 Whit MOJICA (WNR) (M) A 2007 50A [phone] JESSICA MEDICARE MEDICARE PART Apr 19, PART A [id number] 800 Whit MOJ[place] (WNR) (M) A 2007 [id number] [phone] JESSICA Selected Encounter This section includes the information on record at [place] for the Encounter. Date/Time Encounter Type Encounter Description Reason Provider Source Jul 26, 2021 10:45 Outpatient Encounter HIEN DUMONT AM ([place]ONATHONCT) IHE [...] Appointment Type Appointment Facili ty Name Jul 29, 2021 11:30 AM AMBULATORY - NONE [facility] Jul 29, 2021 01:00 PM AMBULATORY - NONE [facility] Jul 29, 2021 02:00 PM AMBULATORY - MEDICINE [facility] Aug 02, 2021 11:30 AM AMBULATORY - NONE [facility] Aug 04, 2021 01:30 PM AMBULATORY - NONE [facility] Aug 11, 2021 12:30 PM AMBULATORY - NONE [facility] Aug 18, 2021 08:00 AM AMBULATORY - NONE [facility] Aug 19, 2021 10:30 AM AMBULATORY - NONE [facility] Aug 23, 2021 12:00 PM AMBULATORY - NONE [facility] Aug 23, 2021 01:00 PM AMBULATORY - NONE [facility] Aug 28, 2021 12:59 PM AMBULATORY - MEDICINE [facility] Sep 04, 2021 07:33 PM AMBULATORY - MEDICINE [facility] Sep 06, 2021 01:30 PM AMBULATORY - NONE [facility] Sep 21, 2021 02:30 PM AMBULATORY - SURGERY [facility] Sep 22, 2021 01:00 PM AMBULATORY - NONE [facility] Sep 28, 2021 07:00 AM AMBULATORY - NONE [facility] Sep 28, 2021 01:30 PM AMBULATORY - SURGERY [facility] Oct 11, 2021 02:30 PM AMBULATORY - MEDICINE [facility] Oct 26, 2021 04:45 PM AMBULATORY - NONE [facility] Nov 02, 2021 04:30 PM AMBULATORY - NONE [facility] Lab Results: +/- 30 days [...] Interpretation Reference Range Comment Jul 29, 2021 [facility] DRUG SCREEN PANEL,URINE Spec imen Type: URINE 01:18 PM Comment: Presum ptive Positive by screen, results not confirmed. Ordering Provid er: CARIDAD DENNIS Report Released Date/Time: Jul 29, 2021 01:06 PM Reporting Lab: [facility] [address] [facility] [address] Performing Lab: [facility] [address] [facility] [address] BARBITURATES Negative Negative AMPHETAMINES Negative Negative COCAINE Negative Negative BENZODIAZEPINES Negative Negative CANNABINOIDS Negative Negative METHADONE Negative Negative OPIATES Negative Negative PHENCYCLIDINE Negative Negative ETHANOL,URINE Negative Negative DRUG SCREEN CREAT 64.7 >20.0 OXYCODONE POSITIVE H Negative BUPRENORPHINE Negative Negative TRAMADOL Negative Negative FENTANYL Negative Negative Jul 29, 2021 12:30 PM [facility] HEMOGLOBIN A1C Specim en Type: BLOOD No comment enter ed. Ordering Provid er: CARIDAD DENNIS Report Released Date/Time: Feb 28, 2021 06:22 PM Reporting Lab: [facility] [address] [facility] [address] Performing Lab: [facility] [address] [facility] [address] HEMOGLOBIN A1C 7.0 H 4.0-6.0 Jul 29, 2021 12:30 PM [facility] AST/SGOT Specim en Type: PLASMA No comment enter ed. Ordering Provid er: CARIDAD DENNIS Report Released Date/Time: Feb 28, 2021 06:22 PM Reporting Lab: [facility] [address] [facility] [address] Performing Lab: [facility] [address] [facility] [address] AST/SGOT 13 <34 Jul 29, 2021 12:30 PM [facility] ALT/SGPT Specim en Type: PLASMA No comment enter ed. Ordering Provid er: CARIDAD DENNIS Report Released Date/Time: Feb 28, 2021 06:22 PM Reporting Lab: [facility] [address] [facility] [address] Performing Lab: [facility] [address] [facility] [address] ALT/SGPT 15 <55 Jul 29, 2021 12:30 [facility] BASIC METABOLIC Specimen Type: PLASMA PM PANEL+MG No comment enter ed. Ordering Provid er: CARIDAD DENNIS Report Released Date/Time: Feb 28, 2021 06:22 PM Reporting Lab: [facility] [address] [facility] [address] Performing Lab: [facility] [address] [facility] [address] CREATININE 0.7 0.7-1.2 UREA NITROGEN 12 8-26 GLUCOSE 170 H 74-100 SODIUM 141 136-145 POTASSIUM 3.9 3.5-5.1 CHLORIDE 105 98-107 CO2 28 22-29 CALCIUM 9.1 8.4-10.2 MAGNESIUM 2.3 1.6-2.6 ANION GAP 8 5-15 CREAT EGFR(CKD-EPI) >90 >60 Jul 29, 2021 12:30 PM [facility] CBC Specim en Type: BLOOD No comment enter ed. Ordering Provid er: CARIDAD DENNIS Report Released Date/Time: Feb 28, 2021 06:22 PM Reporting Lab: [facility] [address] [facility] [address] Performing Lab: [facility] [address] [facility] [address] WBC 6.29 4.0-11.0 RBC 4.82 4.6-6.2 HGB [...] Comment Facility Apr 25, 2021 11:00 AM [place]-TO[place] NEVER USED [place] [facility] Tobacco Use History This section includes a history of the smoking, or tobacco- related health factors, that were collected on or before the date of the Encounter. The data comes from the [place] facility where the Encounter took place. Date/Time Smoking Status/Tobacco Use Comment [facility] og July 09, 2020 02:00 PM VA-TOBACCO FORMER USER WILLY BUTLER [facility] July 09, 2020 02:00 PM [...] 03:28 PM VA-TOBACCO FORMER USER [place] [facility] Jan 30, 2018 03:28 PM [...] 29, 2017 CLINICAL WARNING CORNELIO FREITAS S [facility] May 16, 2017 ADVANCE DIRECTIVE SERENITY BUENROSTRO [facility] May 16, 2017 ADVANCE DIRECTIVE DISCUSSION SERENITY [place]ROSTRO [place] [facility] May 04, 2017 CLINICAL WARNING MAGO DIAMOND [facility] May 04, 2017 CLINICAL WARNING GAEL ROSARIO [facility] Apr 26, 2017 CLINICAL WARNING JENNIFER DE LEON [facility] Jan 01, 2017 CLINICAL WARNING AYDE WELLS [facility] Jun 09, 2004 ADVANCE DIRECTIVE DARYL VILLARREAL [facility] Jun 07, 2004 ADVANCE DIRECTIVE SHERYL HOLLOWAY [facility]
--- OUTSIDE RECORDS SUMMARY | 2021-12-23 19:48 | XMS_ITS | Encounter Summary ---
:1945 Author Organization Department [facility] rs Address [address] [place] [address] Support Name Relationship Address Phone FRANCES GANDARA Unavailable [address] [place] [address] FRANCES GANDARA Unavailable [address] [place] [address] FRANCES GANDARA Unavailable [address] [place] [address] FRANCES GANDARA Unavailable [address] [place] [address] Insurance Providers: All historical and current Section [...] MEDICARE MEDICARE PART Apr 19, PART A [id number] 800 Whit MOJICA (WNR) (M) A 2007 50A [phone] JESSICA MEDICARE MEDICARE PART Apr 19, PART A [id number] 800 Whit [place] (WNR) (M) A 2007 [id number] [phone] JESSICA Selected Encounter This section includes the information on record at [place] for the Encounter. Date/Time Encounter Type Encounter Description Reason Provider Source July 14, 2021 02:10 Outpatient Encounter ADMIN MORE ACTIVKATHERIN PM (MASNONCT) IHE Encounter Template Text not [...] 21, 2021 09:45 AM AMBULATORY - NONE [facility] Jul 26, 2021 10:45 AM AMBULATORY - NONE [facility] Jul 29, 2021 11:30 AM AMBULATORY - NONE [facility] Jul 29, 2021 01:00 PM AMBULATORY - NONE [facility] Jul 29, 2021 02:00 PM AMBULATORY - MEDICINE [facility] Aug 02, 2021 11:30 AM AMBULATORY - NONE [facility] Aug 04, 2021 01:30 PM AMBULATORY - NONE [facility] Aug 11, 2021 12:30 PM AMBULATORY - NONE [facility] Aug 18, 2021 08:00 AM AMBULATORY - NONE [facility] Aug 19, 2021 10:30 AM AMBULATORY - NONE [facility] Aug 23, 2021 12:00 PM AMBULATORY - NONE [facility] Aug 23, 2021 01:00 PM AMBULATORY - NONE [facility] Aug 28, 2021 12:59 PM AMBULATORY - MEDICINE [facility] Sep 04, 2021 07:33 PM AMBULATORY - MEDICINE [facility] Sep 06, 2021 01:30 PM AMBULATORY - NONE [facility] Sep 21, 2021 02:30 PM AMBULATORY - SURGERY [facility] Sep 22, 2021 01:00 PM AMBULATORY - NONE [facility] Sep 28, 2021 07:00 AM AMBULATORY - NONE [facility] Sep 28, 2021 01:30 PM AMBULATORY - SURGERY [facility] Oct 11, 2021 02:30 PM AMBULATORY - MEDICINE [facility] Lab Results: +/- 30 days [...] Interpretation Reference Range Comment Jul 29, 2021 [facility] DRUG SCREEN PANEL,URINE Spec imen Type: URINE 01:18 PM Comment: Presum ptive Positive by screen, results not confirmed. Ordering Provid er: CARIDAD DENNIS Report Released Date/Time: Jul 29, 2021 01:06 PM Reporting Lab: [facility] [address] [facility] [address] Performing Lab: [facility] [address] [facility] [address] BARBITURATES Negative Negative AMPHETAMINES Negative Negative COCAINE Negative Negative BENZODIAZEPINES Negative Negative CANNABINOIDS Negative Negative METHADONE Negative Negative OPIATES Negative Negative PHENCYCLIDINE Negative Negative ETHANOL,URINE Negative Negative DRUG SCREEN CREAT 64.7 >20.0 OXYCODONE POSITIVE H Negative BUPRENORPHINE Negative Negative TRAMADOL Negative Negative FENTANYL Negative Negative Jul 29, 2021 12:30 PM [facility] HEMOGLOBIN A1C Specim en Type: BLOOD No comment enter ed. Ordering Provid er: CARIDAD DENNIS Report Released Date/Time: Feb 28, 2021 06:22 PM Reporting Lab: [facility] [address] [facility] [address] Performing Lab: [facility] [address] [facility] [address] HEMOGLOBIN A1C 7.0 H 4.0-6.0 Jul 29, 2021 12:30 PM [facility] AST/SGOT Specim en Type: PLASMA No comment enter ed. Ordering Provid er: CARIDAD DENNIS Report Released Date/Time: Feb 28, 2021 06:22 PM Reporting Lab: [facility] [address] [facility] [address] Performing Lab: [facility] [address] [facility] [address] AST/SGOT 13 <34 Jul 29, 2021 12:30 PM [facility] ALT/SGPT Specim en Type: PLASMA No comment enter ed. Ordering Provid er: CARIDAD DENNIS Report Released Date/Time: Feb 28, 2021 06:22 PM Reporting Lab: [facility] [address] [facility] [address] Performing Lab: [facility] [address] [facility] [address] ALT/SGPT 15 <55 Jul 29, 2021 12:30 [facility] BASIC METABOLIC Specimen Type: PLASMA PM PANEL+MG No comment enter ed. Ordering Provid er: CARIDAD DENNIS Report Released Date/Time: Feb 28, 2021 06:22 PM Reporting Lab: [facility] [address] [facility] [address] Performing Lab: [facility] [address] [facility] [address] CREATININE 0.7 0.7-1.2 UREA NITROGEN 12 8-26 GLUCOSE 170 H 74-100 SODIUM 141 136-145 POTASSIUM 3.9 3.5-5.1 CHLORIDE 105 98-107 CO2 28 22-29 CALCIUM 9.1 8.4-10.2 MAGNESIUM 2.3 1.6-2.6 ANION GAP 8 5-15 CREAT EGFR(CKD-EPI) >90 >60 Jul 29, 2021 12:30 PM [facility] CBC Specim en Type: BLOOD No comment enter ed. Ordering Provid er: CARIDAD DENNIS Report Released Date/Time: Feb 28, 2021 06:22 PM Reporting Lab: [facility] [address] [facility] [address] Performing Lab: [facility] [address] [facility] [address] WBC 6.29 4.0-11.0 RBC 4.82 4.6-6.2 HGB [...] 11:00 AM [place]-TOBACCO [place] USED [place] [facility] Tobacco Use History This section includes a history of the smoking, or tobacco- related health factors, that were collected on or before the date of the Encounter. The data comes from the [place] facility where the Encounter took place. Date/Time Smoking Status/Tobacco Use Comment [facility] July 09, 2020 02:00 PM VA-TOBACCO FORMER USER WILLY BUTLER [facility] July 09, 2020 02:00 PM VA-TOBACCO QUIT 15 YRS OR MORE [facility] Apr 17, 2019 02:39 PM INPT NO TOBACCO USE IN LAST 30 DAYS [facility] Feb 04, 2019 10:37 AM VA-TOBACCO NEVER USED [place] [facility] Oct 15, 2018 02:43 PM INPT NO TOBACCO USE IN LAST 30 DAYS [facility] Oct 13, 2018 11:30 PM INPT NO TOBACCO USE IN LAST 30 DAYS [facility] Sep 02, 2018 05:50 PM INPT NO TOBACCO USE IN LAST 30 DAYS [facility] Aug 12, 2018 07:28 PM INPT NO TOBACCO USE IN LAST 30 DAYS [facility] Jan 30, 2018 03:28 PM VA-TOBACCO FORMER USER [place] [facility] Jan 30, 2018 03:28 PM VA-TOBACCO QUIT 15 YRS OR MORE [facility] May 29, 2017 04:53 PM INPT NO TOBACCO USE IN LAST 30 DAYS [facility] Apr 25, 2017 10:44 PM INPT NO TOBACCO USE IN LAST 30 DAYS [facility] Jan 01, 2017 06:40 PM INPT NO TOBACCO USE IN LAST 30 DAYS [facility] Dec 21, 2016 02:43 PM FORMER TOBACCO USER 7Y OR GREATER [facility] Sep 24, 2013 08:52 AM FORMER TOBACCO USER 7Y OR GREATER [facility] Advance Directives: All historical and current Section Date Range: From patient's date of to the date document was created. This section includes ALL of a patient's completed or amended [place] Advance and Rescinded Directives. The entries below indicate that a directive exists for the patient, but an actual copy is not included with this document. The data comes from all [place] facilities. Date Advance Directives Provider Source May 29, 2017 CLINICAL WARNING CORNELIO FREITAS S [facility] May 16, 2017 ADVANCE DIRECTIVE SERENITY BUENROSTRO [facility] May 16, 2017 ADVANCE DIRECTIVE DISCUSSION SERENITY BUENROSTRO [place] [facility] May 04, 2017 CLINICAL WARNING MAGO DIAMOND [facility] May 04, 2017 CLINICAL WARNING GAEL ROSARIO [facility] Apr 26, 2017 CLINICAL WARNING JENNIFER DE LEON [facility] Jan 01, 2017 CLINICAL WARNING AYDE WELLS [facility] Jun 09, 2004 ADVANCE DIRECTIVE DARYL VILLARREAL [facility] Jun 07, 2004 ADVANCE DIRECTIVE SHERYL HOLLOWAY [facility]
--- OUTSIDE RECORDS SUMMARY | 2021-12-23 19:50 | XMS_ITS | Encounter Summary ---
:1945 Author Organization Department [facility] rs Address [address] [place] [address] Support Name Relationship Address Phone FRANCES GANDARA Unavailable [address] [place] [address] FRANCES GANDARA Unavailable [address] [place] [address] FRANCES GANDARA Unavailable [address] [place] [address] FRANCES GANDARA Unavailable [address] [place] [address] Insurance Providers: All historical and current Section [...] MEDICARE MEDICARE PART Apr 19, PART A [id number] Whit MOJICA (WNR) (M) A 2007 50A [phone] JESSICA MEDICARE MEDICARE PART Apr 19, PART A [id number] Whit MOJ[place] (WNR) (M) A 2007 [id number] [phone] JESSICA Selected Encounter This section includes the information on record at [place] for the Encounter. Date/Time Encounter Type Encounter Description Reason Provider Source June 22, 2021 02:30 Outpatient Encounter ADMIN MORE DUMONT PM (JONATHONCT) [...] 20 appointments. The data comes from all [facility]. Appointment Date/Time Appointment Type Appointment Facili ty Name June 27, 2021 12:30 PM AMBULATORY - NONE [facility] June 27, 2021 01:30 PM AMBULATORY - NONE [facility] June 28, 2021 11:00 AM AMBULATORY - NONE [facility] July 04, 2021 12:15 PM AMBULATORY - NONE [facility] July 04, 2021 01:15 PM AMBULATORY - SURGERY [facility] July 06, 2021 10:15 AM AMBULATORY - NONE [facility] July 07, 2021 01:00 PM AMBULATORY - NONE [facility] July 07, 2021 02:00 PM AMBULATORY - SURGERY [facility] July 13, 2021 09:00 AM AMBULATORY - RE[facility]AB MEDICINE [facility] July 14, 2021 02:10 PM AMBULATORY - NONE [facility] Jul 21, 2021 09:45 AM AMBULATORY - NONE [facility] Jul 26, 2021 10:45 AM AMBULATORY - NONE [facility] Jul 29, 2021 11:30 AM AMBULATORY - NONE [facility] Jul 29, 2021 01:00 PM AMBULATORY - NONE [facility] Jul 29, 2021 02:00 PM AMBULATORY - MEDICINE [facility] Aug 02, 2021 11:30 AM AMBULATORY - NONE [facility] Aug 04, 2021 01:30 PM AMBULATORY - NONE [facility] Aug 11, 2021 12:30 PM AMBULATORY - NONE [facility] Aug 18, 2021 08:00 AM AMBULATORY - NONE [facility] Aug 19, 2021 10:30 AM AMBULATORY - NONE [facility] Active, Pending, and Scheduled Orders This section includes a listing of several types of active, pending, and scheduled orders, including clinic medications orders, diagnostic test orders, procedure orders and consult orders; where the start date of the order is 45 days before the date of the Encounter or 45 days after the date of the Encounter. The data comes from all [facility]. Test Date/Time Test Type Test Details Facility Name May 11, 2021 02:31 PM Pharmacy - Clinic Infusion [facility] Order Social History: Smoking Status (Most current) and Tobacco Use (All prior to encounter date) This section includes the most current, and the historical, smoking and tobacco-related health factors from the [facility] where the Encounter took place.Current Smoking Status This section includes the most current smoking, or tobacco-related health factor, from the [place] facility where the Encounter took place. Date/Time Current Smoking Status Comment Facility Apr 25, 2021 11:00 AM VA-TOBACCO NEVER USED [facility] Tobacco Use History This section includes a history of the smoking, or tobacco- related health factors, that were collected on or before the date of the Encounter. The data comes from the [facility] where the Encounter took place. Date/Time Smoking Status/Tobacco Use Comment [facility] July 09, 2020 02:00 PM [facility] July 09, 2020 02:00 PM VA-TOBACCO QUIT 15 YRS OR MORE [facility] Apr 17, 2019 02:39 PM INPT NO TOBACCO USE IN LAST 30 DAYS [facility] Feb 04, 2019 10:37 AM [place] [facility] Oct 15, 2018 02:43 PM INPT NO TOBACCO USE IN LAST 30 DAYS [facility] Oct 13, 2018 11:30 PM INPT NO TOBACCO USE IN LAST 30 DAYS [facility] Sep 02, 2018 05:50 PM INPT NO TOBACCO USE IN LAST 30 DAYS [facility] Aug 12, 2018 07:28 PM INPT NO TOBACCO USE IN LAST 30 DAYS [facility] Jan 30, 2018 03:28 PM [facility] Jan 30, 2018 03:28 PM VA-TOBACCO QUIT 15 YRS OR MORE [facility] May 29, 2017 04:53 PM INPT NO TOBACCO USE IN LAST 30 DAYS [facility] Apr 25, 2017 10:44 PM INPT NO TOBACCO USE IN LAST 30 DAYS [facility] Jan 01, 2017 06:40 PM INPT NO TOBACCO USE IN LAST 30 DAYS [facility] Dec 21, 2016 02:43 PM FORMER TOBACCO USER 7Y OR GREATER [facility] Sep 24, 2013 08:52 AM FORMER TOBACCO USER 7Y OR GREATER [facility] Advance Directives: All historical and current [...] May 16, 2017 ADVANCE DIRECTIVE SERENITY BUENROSTRO [facility] May 16, 2017 ADVANCE DIRECTIVE DISCUSSION [facility] May 04, 2017 CLINICAL WARNING MAGO DIAMOND [facility] May 04, 2017 CLINICAL WARNING GAEL ROSARIO [facility] Apr 26, 2017 CLINICAL WARNING JENNIFER DE LEON [facility] Jan 01, 2017 CLINICAL WARNING AYDE WELLS [facility] Jun 09, 2004 ADVANCE DIRECTIVE DARYL VILLARREAL [facility] Jun 07, 2004 ADVANCE DIRECTIVE SHERYL HOLLOWAY [facility]
--- OUTSIDE RECORDS SUMMARY | 2021-12-23 19:52 | XMS_ITS | Encounter Summary ---
:1945 Author Organization [facility] Address [address] [place] [address] Support Name Relationship Address Phone FRANCES GANDARA Unavailable [address] [place] [address] FRANCES GANDARA Unavailable [address] [place] [address] FRANCES GANDARA Unavailable [address] [place] [address] FRANCES GANDARA Unavailable [address] [place] [address] Insurance Providers: All historical and current Section [...] MEDICARE MEDICARE PART Apr 19, PART A [id number] Whit MOJICA (WNR) (M) A 2007 50A [phone] JESSICA MEDICARE MEDICARE PART Apr 19, PART A [id number] 800 Whit MOJ[place] (WNR) (M) A 2007 [id number] [phone] JESSICA Selected Encounter This section includes the information on record at [place] for the Encounter. Date/Time Encounter Type Encounter Description Reason Provider Source Mar 31, 2021 07:00 Outpatient Encounter [facility] AM CONSULT IHE [...] 07, 2021 01:00 PM AMBULATORY - SURGERY [facility] Apr 15, 2021 01:20 PM AMBULATORY - SURGERY [facility] Apr 25, 2021 11:00 AM AMBULATORY - MEDICINE [facility] Apr 28, 2021 09:00 AM AMBULATORY - NONE [facility] Apr 28, 2021 09:45 AM AMBULATORY - NONE [facility] Apr 28, 2021 10:00 AM AMBULATORY - MEDICINE [facility] May 10, 2021 03:20 PM AMBULATORY - NONE [facility] May 11, 2021 11:45 AM AMBULATORY - MEDICINE [facility] May 11, 2021 12:00 PM AMBULATORY - MEDICINE [facility] May 11, 2021 01:00 PM AMBULATORY - MEDICINE [facility] May 19, 2021 02:30 PM AMBULATORY - NONE [facility] May 19, 2021 04:00 PM AMBULATORY - MEDICINE [facility] May 20, 2021 09:00 AM AMBULATORY - NONE [facility] May 20, 2021 10:00 AM AMBULATORY - SURGERY [facility] May 24, 2021 03:30 PM AMBULATORY - NONE [facility] Jun 02, 2021 02:40 PM AMBULATORY - MEDICINE [facility] Jun 06, 2021 02:30 PM AMBULATORY - NONE [facility] Jun 09, 2021 02:00 PM AMBULATORY - SURGERY [facility] June 21, 2021 01:45 PM AMBULATORY - NONE [facility] June 22, 2021 09:30 AM AMBULATORY - NONE [facility] Active, Pending, and Scheduled Orders This section includes a listing of several types of active, pending, and scheduled orders, including clinic medications orders, diagnostic test orders, procedure orders and consult orders; where the start date of the order is 45 days before the date of the Encounter or 45 days after the date of the Encounter. The data comes from all [facility]. Test Date/Time Test Type Test Details Facility Name May 11, 2021 02:31 PM Pharmacy - Clinic Infusion [facility] Order Lab Results: +/- 30 [...] Apr 28, 2021 03:12 [facility] COVID-19 AND FLU SCRN Spe cimen Type: NASOPHARYNGEAL PM PANEL (FLUVID) No comment enter ed. Ordering Provid er: CARIDAD DENNIS Report Released Date/Time: Apr 28, 2021 02:10 PM Reporting Lab: [facility] [address] [facility] [address] Performing Lab: [facility] [address] [facility] [address] COVID-19 PCR (FLUVID) Not Detected Not D etected FLU A PCR (FLUVID) Not Detected Not Dete cted FLU B PCR (FLUVID) Not Detected Not Dete cted Apr 28, 2021 01:17 PM [facility] HEMOGLOBIN A1C Specim en Type: BLOOD No comment enter ed. Ordering Provid er: CARIDAD DENNIS Report Released Date/Time: Apr 25, 2021 12:00 PM Reporting Lab: [facility] [address] [facility] [address] Performing Lab: [facility] [address] [facility] [address] HEMOGLOBIN A1C 8.0 H 4.0-6.0 Apr 28, 2021 01:17 [facility] PROTHROMBIN TIME/INR Spec imen Type: PLASMA PM No comment enter ed. Ordering Provid er: CARIDAD DENNIS Report Released Date/Time: Apr 25, 2021 12:00 PM Reporting Lab: [facility] [address] [facility] [address] Performing Lab: [facility] [address] [facility] [address] .INR 1.1 0.8-1.1 .PT 13.2 H 9.4-12.5 Apr 28, 2021 01:17 PM [facility] CBC Specim en Type: BLOOD No comment enter ed. Ordering Provid er: CARIDAD DENNIS Report Released Date/Time: Apr 25, 2021 12:00 PM Reporting Lab: [facility] [address] [facility] [address] Performing Lab: [facility] [address] [facility] [address] WBC 4.06 4.0-11.0 RBC 5.41 4.6-6.2 HGB 14.8 13.5-17.9 HCT 47.0 41-54 MCV 86.9 80-100 MCH 27.4 27-33 MCHC 31.5 L 32.0-37.5 PLT 263 150-400 MPV 9.2 7.4-10.4 RDW 14.2 11.5-14.5 Apr 28, 2021 01:17 [facility] TSH W/REFLEX TO FREE Spec imen Type: PLASMA PM T4 No comment enter ed. Ordering Provid er: CARIDAD DENNIS Report Released Date/Time: Apr 25, 2021 12:00 PM Reporting Lab: [facility] [address] [facility] [address] Performing Lab: [facility] [address] TSH 0.73 0.35-4.94 Apr 28, 2021 [facility] COMPREHENSIVE METABOLIC Spec imen Type: PLASMA 01:17 PM PANEL+MG No comment enter ed. Ordering Provid er: CARIDAD DENNIS Report Released Date/Time: Apr 25, 2021 12:00 PM Reporting Lab: [facility] [address] [facility] [address] Performing Lab: [facility] ONE [facility] [address] CREATININE 0.7 0.7-1.2 UREA NITROGEN 16 8-26 [...] Facility July 09, 2020 02:00 PM VA-TOBACCO QUIT 15 YRS OR MORE [facility] Tobacco Use History This section includes a history of the smoking, or tobacco- related health factors, that were collected on or before the date of the Encounter. The data comes from the [facility] where the Encounter took place. Date/Time Smoking Status/Tobacco Use Comment [facility] it July 09, 2020 02:00 PM VA-TOBACCO QUIT 15 YRS OR MORE [facility] Apr 17, 2019 02:39 PM INPT NO TOBACCO USE IN LAST 30 DAYS [facility] Feb 04, 2019 10:37 AM VA-TOBACCO NEVER USED [place] [facility] Oct 15, 2018 02:43 [...] 03:28 PM VA-TOBACCO FORMER US[place] [facility] Jan 30, 2018 03:28 PM [place]-TOBACCO QUIT 15 YRS OR MORE [facility] [...] May 29, 2017 CLINICAL WARNING CORNELIO FREITAS [facility] May 16, 2017 ADVANCE DIRECTIVE SERENITY BUENROSTRO [facility] May 16, 2017 ADVANCE DIRECTIVE DISCUSSION SER[place]ITY BU[place]O [place] [facility] May 04, 2017 CLINICAL WARNING MAGO DIAMOND [facility] May 04, 2017 CLINICAL WARNING [...] DIRECTIVE SHERYL HOLLOWAY [facility] Radiology Reports: +/- 30 days of the [...] STR ESS/REST: DARIN BAKER [facility] HEATH MOJICAY PRERNA [id number] -[birth year] 8 M Exm Date: APR 28, 2021@09:06 Req Phys: CARIDAD DENNIS Pat Loc: [facility] PACT SAPPHIRE 4E (Req'g Lo Img Loc: NUC MED Service: Unknown (Case [id number] COMPLETE) MYOCARDIAL PERFUSION (SPECT )-MULT(NM Detailed) CPT:58990 Reason for Study: CAD, PAD risk stratefication prior to surgery 05/02 (Case [id number] COMPLETE) TC-99M SESTAMIBI (CARDIOLIT E), PE(NM Detailed) CPT:A9500 (Case [id number] COMPLETE) CARDIOVASCULAR STRESS TEST (NM Detailed) CPT:68406 Clinical History: Is this patient on Observation [...] 2021 Date Verified: APR 28, 2021 Senior Mobile Developer E-Sig:/ES/DARIN BAKER MD Report: Regadenoson myocardial perfusion [...] MD, RADIOLOGY STAFF PHYSICIAN (V erifier) /SG Mar 01, 2021 09:44 AM US LOWER EXTREMITY VEIN (UNILATERAL) ( P): XIAO HUGGINS-[facility] JESSICA MOJICA [id number] -[birth year] 8 M Exm Date: MAR 01, 2021@09:44 Req Phys: AMARJIT OWEN Loc: [facility] DEPT WALK-IN (Re Img Loc: Ultrasound Imaging Service: Unknown (Case [id number] COMPLETE) US EXTREMITY VEINS UNILAT (U S Detailed) CPT:06652 Proc Modifiers : LEFT Reason for Study: [...] pager listed below: User placing orders pager: [phone] LAST CREATININE 0.6 L (12/15/20) Report Status: Verified Date Reported: MAR 01, 2021 Date Verified: MAR 01, 2021 Senior Mobile Developer E-Sig:/ES/XIAO HUGGINS MD Report: Duplex Ultrasound of [...] Primary Interpreting Staff: XIAO HUGGINS MD, RADIOLOGIST (Senior Mobile Developer) Primary Interpreting Resident: JANNET JOSEPH, WOOD BOX MAKER /[employer]ian
--- OUTSIDE RECORDS SUMMARY | 2021-12-23 19:53 | XMS_ITS | Encounter Summary ---
:1945 Author Organization [facility] Address [address] [place] [address] Support Name Relationship Address Phone FRANCES GANDARA Unavailable [address] [place] [address] FRANCES GANDARA Unavailable [address] [place] [address] FRANCES GANDARA Unavailable [address] [place] [address] FRANCES GANDARA Unavailable [address] [place] [address] Insurance Providers: All historical and current Section [...] MEDICARE MEDICARE PART Apr 19, PART A [id number] Whit MOJICA (WNR) (M) A 2007 50A [id number] JESSICA MEDICARE MEDICARE PART Apr 19, PART A [id number] Whit MOJICA (WNR) (M) A 2007 [id number] [phone] JESSICA Selected Encounter This section includes the information on record at [place] for the Encounter. Date/Time Encounter Type Encounter Description Reason Provider Source Mar 10, 2021 10:45 Outpatient Encounter COMMUNITY CARE AM CONSULT IHE [...] The data comes from all [place] treatment [facility]. Appointment Date/Time Appointment Type Appointment Facili ty Name Mar 17, 2021 11:30 AM AMBULATORY - NONE [facility] Mar 22, 2021 02:30 PM AMBULATORY - NONE [facility] Mar 23, 2021 07:00 AM AMBULATORY - NONE [facility] Mar 28, 2021 02:00 PM AMBULATORY - MEDICINE [facility] Mar 31, 2021 07:00 AM AMBULATORY - NONE [facility] Mar 31, 2021 02:00 PM AMBULATORY - REHAB MEDICINE [facility] Apr 07, 2021 01:00 PM AMBULATORY - SURGERY [facility] Apr 15, 2021 01:20 PM AMBULATORY - SURGERY [facility] Apr 25, 2021 11:00 AM AMBULATORY - MEDICINE [facility] Apr 28, 2021 09:00 AM AMBULATORY - NONE [facility] Apr 28, 2021 09:45 AM AMBULATORY - NONE [facility] Apr 28, 2021 10:00 AM AMBULATORY - MEDICINE [facility] May 10, 2021 03:20 PM AMBULATORY - NONE [facility] May 11, 2021 11:45 AM AMBULATORY - MEDICINE [facility] May 11, 2021 12:00 PM AMBULATORY - MEDICINE [facility] May 11, 2021 01:00 PM AMBULATORY - MEDICINE [facility] May 19, 2021 02:30 PM AMBULATORY - NONE [facility] May 19, 2021 04:00 PM AMBULATORY - MEDICINE [facility] May 20, 2021 09:00 AM AMBULATORY - NONE [facility] May 20, 2021 10:00 AM AMBULATORY - SURGERY [facility] Active, Pending, and Scheduled Orders This section includes a listing of several types of active, pending, and scheduled orders, including clinic medications orders, diagnostic test orders, procedure orders and consult orders; where the start date of the order is 45 days before the date of the Encounter or 45 days after the date of the Encounter. The data comes from all [facility]. Test Date/Time Test Type Test Details Facility Name Jan 25, 2021 06:15 Laboratory - COVID-19 DIAGNOSTIC PANEL [facility] AM Chemistry Order (CEPHEID) NASOPHARYNGEAL SWAB WC ONCE Lab Results: +/- 30 days of the encounter This section includes the Chemistry and Hematology Lab Results on record with [place] for the patient. Radiology Reports and Pathology Reports are provided separately, in subsequent sections.Lab Results This section contains the Chemistry/Hematology Results that were resulted 30 days before or 30 daysafter the date of the Encounter. Date/Time Source Result Type Result - Unit Interpretation Reference Range Comment Mar 01, 2021 09:31 [facility] EXTRA MINT TUBE Specimen Type: PLASMA AM No comment enter ed. Ordering Provid er: AMARJIT OWEN Report Released Date/Time: Mar 01, 2021 09:31 AM Reporting Lab: [facility] [address] [facility] [address] Performing Lab: [facility] [address] EXTRA MINT TUBE RECEIVED Mar 01, 2021 09:31 [facility] C-REACTIVE PROTEIN Specim en Type: SERUM AM No comment enter ed. Ordering Provid er: AMARJIT OWEN Report Released Date/Time: Mar 01, 2021 09:12 AM Reporting Lab: [facility] [address] [facility] [address] Performing Lab: [facility] [address] [facility] [address] C-REACTIVE PROTEIN 9.22 H <5.00 Mar 01, 2021 09:31 AM [facility] CBC & DIFF Specim en Type: BLOOD Comment: Automa sarthak Differential Performed Ordering Provid er: AMARJIT OWEN Report Released Date/Time: Mar 01, 2021 09:12 AM Reporting Lab: [facility] [address] [facility] [address] Performing Lab: [facility] [address] [facility] [address] WBC 5.58 4.0-11.0 RBC 4.90 4.6-6.2 HGB [...] 0.02 0-0.1 Mar 01, 2021 09:31 AM [facility] HEMOGLOBIN A1C Specim en Type: BLOOD No comment enter ed. Ordering Provid er: CARIDAD DENNIS Report Released Date/Time: Mar 01, 2021 04:01 PM Reporting Lab: [facility] [address] [facility] [address] Performing Lab: [facility] [address] [facility] [address] HEMOGLOBIN A1C 8.0 H 4.0-6.0 Social History: Smoking Status (Most current) and Tobacco Use (All prior to encounter date) This section includes the most current, and the historical, smoking and tobacco-related health factors from the [place] facility where the Encounter took place.Current Smoking Status This section includes the most current smoking, or tobacco-related health factor, from the [place] facility where the Encounter took place. Date/Time Current Smoking Status Comment Facility July 09, 2020 02:00 PM VA-TOBACCO FORMER USER [facility] Tobacco Use History This section includes a history of the smoking, or tobacco- related health factors, that were collected on or before the date of the Encounter. The data comes from the [place] facility where the Encounter took place. Date/Time Smoking Status/Tobacco Use Comment [facility] July 09, 2020 02:00 PM VA-TOBACCO QUIT 15 YRS OR MORE [facility] Apr 17, 2019 02:39 PM INPT NO TOBACCO USE IN LAST 30 DAYS [facility] Feb 04, 2019 10:37 AM VA-TOBACCO NEVER USED [facility] Oct 15, 2018 02:43 PM INPT [...] 03:28 PM VA-TOBACCO FORMER USER [place] [facility] Jan 30, 2018 03:28 PM VA-TOBACCO [...] this document. The data comes from all [facility]. Date Advance Directives Provider Source May 29, 2017 CLINICAL WARNING CORNELIO FREITAS [facility] May 16, 2017 ADVANCE DIRECTIVE SERENITY BUENROSTRO [facility] May 16, 2017 ADVANCE DIRECTIVE DISCUSSION [place]ITY [place]STRO [place] [facility] May 04, 2017 CLINICAL WARNING MAGO DIAMOND [facility] May 04, 2017 CLINICAL WARNING GAEL ROSARIO [facility] Apr 26, 2017 CLINICAL WARNING JENNIFER DE LEON [facility] Jan 01, 2017 CLINICAL WARNING AYDE WELLS [facility] Jun 09, 2004 ADVANCE DIRECTIVE DARYL VILLARREAL [facility] Jun 07, 2004 ADVANCE DIRECTIVE SHERYL [...] The data comes from all [place] treatment facilities. Date/Time Radiology Report Provider Source Mar 01, 2021 09:44 AM US LOWER EXTREMITY VEIN (UNILATERAL) ( P): XIAO HUGGINS [facility] XAVIERHEATH MONTEJOSydney GRAFF [id number] -[birth year], [birth year] 8 M Exm Date: MAR 01, 2021@09:44 Req Phys: AMARJIT OWEN Loc: [facility] DEPT WALK-IN (Re Img Loc: Ultrasound Imaging Service: Unknown (Case [id number] COMPLETE) US EXTREMITY VEINS UNILAT (U S Detailed) CPT:67310 Proc Modifiers : LEFT Reason for Study: please look for DVT Clinical History: [place] IS NOT under investigation for COVID-19 or is COVID-19 negative Swelling, erythema, tenderness incl along deep veins. NOt responsive to antibiotic course. Wells score fo r DVT = 5 Responsible provider name and phone number to n otify for critical findings if other than user placing the order a nd pager listed below: User placing orders pager: [phone] LAST CREATININE 0.6 L (12/15/20) Report Status: Verified Date Reported: MAR 01, 2021 Date Verified: MAR 01, 2021 Tsa Screener E-Sig:/ES/XIAO HUGGINS MD Report: Duplex Ultrasound of [...] Primary Interpreting Staff: XIAO HUGGINS MD, RADIOLOGIST (Tsa Screener) Primary Interpreting Resident: JANNET JOSEPH, TOOL SPECIALIST /[facility]
--- OUTSIDE RECORDS SUMMARY | 2021-12-23 19:55 | XMS_ITS | Encounter Summary ---
:1945 Author Organization [facility] Address [address] [place] [address] Support Name Relationship Address Phone FRANCES GANDARA Unavailable [address] [place] [address] FRANCES GANDARA Unavailable [address] [place] [address] FRANCES GANDARA Unavailable [address] [place] [address] FRANCES GANDARA Unavailable [address] [place] [address] Insurance Providers: All historical and current Section [...] MEDICARE MEDICARE PART Apr 19, PART A [id number] Whit MOJICA (WNR) (M) A 2007 50A [id number] JESSICA MEDICARE MEDICARE PART Apr 19, PART A [id number] 800 Whit MOJICA (WNR) (M) A 2007 [id number] [id number] JESSICA Selected Encounter This section includes the information on record at [place] for the Encounter. Date/Time Encounter Type Encounter Description Reason Provider Source Feb 09, 2021 12:45 Outpatient Encounter COMMUNITY [facility]ARE PM CONSULT IHE [...] 20 appointments. The data comes from all [facility]. Appointment Date/Time Appointment Type Appointment Facili ty Name Feb 14, 2021 02:00 PM AMBULATORY - SURGERY [facility] Feb 16, 2021 08:30 AM AMBULATORY - REHAB MEDICINE [facility] Feb 17, 2021 02:30 PM AMBULATORY - NONE [facility] Feb 23, 2021 09:00 AM AMBULATORY - NONE [facility] Feb 23, 2021 01:30 PM AMBULATORY - NONE [facility] Feb 23, 2021 02:30 PM AMBULATORY - MEDICINE [facility] Feb 28, 2021 08:00 AM AMBULATORY - NONE [facility] Mar 01, 2021 07:45 AM AMBULATORY - SURGERY [facility] Mar 01, 2021 08:43 AM AMBULATORY - MEDICINE [facility] Mar 01, 2021 09:44 AM AMBULATORY - NONE [facility] Mar 02, 2021 02:00 PM AMBULATORY - REHAB MEDICINE [facility] Mar 03, 2021 01:00 PM AMBULATORY - SURGERY [facility] Mar 08, 2021 01:00 PM AMBULATORY - NONE [facility] Mar 09, 2021 10:45 AM AMBULATORY - SURGERY [facility] Mar 09, 2021 11:30 AM AMBULATORY - NONE [facility] Mar 10, 2021 10:45 AM AMBULATORY - NONE [facility] Mar 17, 2021 11:30 AM AMBULATORY - NONE [facility] Mar 22, 2021 02:30 PM AMBULATORY - NONE [facility] Mar 23, 2021 07:00 AM AMBULATORY - NONE [facility] Mar 28, 2021 02:00 PM AMBULATORY - MEDICINE [facility] Active, Pending, and Scheduled [...] the Encounter. The data comes from all [facility]. Test Date/Time Test Type Test Details Facility Name Jan 25, 2021 06:15 Laboratory - COVID-19 DIAGNOSTIC PANEL [facility] AM Chemistry Order (CEPHEID) NASOPHARYNGEAL SWAB [...] Reference Range Comment Mar 01, 2021 09:31 [facility] EXTRA MINT TUBE Specimen Type: PLASMA AM No comment enter ed. Ordering Provid er: AMARJIT OWEN Report Released Date/Time: Mar 01, 2021 09:31 AM Reporting Lab: [facility] [address] [facility] [address] Performing Lab: [facility] [address] EXTRA MINT TUBE RECEIVED Mar 01, 2021 09:31 [facility] C-REACTIVE PROTEIN Specim en Type: SERUM AM No comment enter ed. Ordering Provid er: AMARJIT OWEN Report Released Date/Time: Mar 01, 2021 09:12 AM Reporting Lab: [facility] [address] [facility] [address] Performing Lab: [facility] [address] [facility] [address] C-REACTIVE PROTEIN 9.22 H <5.00 Mar 01, 2021 09:31 AM [facility] CBC & DIFF Specim en Type: BLOOD Comment: Automa sarthak Differential Performed Ordering Provid er: AMARJIT OWEN Report Released Date/Time: Mar 01, 2021 09:12 AM Reporting Lab: [facility] [address] [facility] [address] Performing Lab: [facility] [address] [facility] [address] WBC 5.58 4.0-11.0 RBC 4.90 4.6-6.2 HGB [...] 0.02 0-0.1 Mar 01, 2021 09:31 AM [facility] HEMOGLOBIN A1C Specim en Type: BLOOD No comment enter ed. Ordering Provid er: CARIDAD DENNIS Report Released Date/Time: Mar 01, 2021 04:01 PM Reporting Lab: [facility] [address] [facility] [address] Performing Lab: [facility] [address] [facility] [address] HEMOGLOBIN A1C 8.0 H 4.0-6.0 Social History: [...] 2020 02:00 PM VA-TOBACCO FORMER USER [facility] Tobacco Use History This section includes a history of the smoking, or tobacco- related health factors, that were collected on or before the date of the Encounter. The data comes from the [place] facility where the Encounter took place. Date/Time Smoking Status/Tobacco Use Comment [facility] July 09, 2020 02:00 PM VA-TOBACCO QUIT 15 YRS OR MORE [facility] Apr 17, 2019 02:39 PM INPT NO TOBACCO USE IN LAST 30 DAYS [facility] Feb 04, 2019 10:37 AM VA-TOBACCO NEVER USED TROY BLANTON [facility] Oct 15, 2018 02:43 PM INPT NO TOBACCO USE IN LAST 30 DAYS [facility] Oct 13, 2018 11:30 PM INPT NO TOBACCO USE IN LAST 30 DAYS [facility] Sep 02, 2018 05:50 PM INPT NO TOBACCO USE IN LAST 30 DAYS [facility] Aug 12, 2018 07:28 PM INPT NO TOBACCO USE IN LAST 30 DAYS [facility] Jan 30, 2018 03:28 PM VA-TOBACCO FORMER USER [facility] Jan 30, 2018 03:28 PM VA-TOBACCO QUIT 15 YRS OR MORE [facility] May 29, 2017 04:53 PM INPT NO TOBACCO USE IN LAST 30 DAYS [facility] Apr 25, 2017 10:44 PM INPT NO TOBACCO USE IN LAST 30 DAYS [facility] Jan 01, 2017 06:40 PM INPT NO TOBACCO USE IN LAST 30 DAYS [facility] Dec 21, 2016 02:43 PM FORMER TOBACCO USER 7Y OR GREATER [facility] Sep 24, 2013 08:52 AM FORMER TOBACCO USER 7Y OR GREATER [facility] Advance Directives: All historical and current [...] May 29, 2017 CLINICAL WARNING CORNELIO FREITAS [facility] May 16, 2017 ADVANCE DIRECTIVE SERENITY BUENROSTRO [facility] May 16, 2017 ADVANCE DIRECTIVE DISCUSSION [place] [facility] May 04, [address] [facility] May 04, 2017 CLINICAL WARNING GAEL ROSARIO [facility] Apr 26, 2017 CLINICAL WARNING JENNIFER DE LEON [facility] Jan 01, 2017 CLINICAL WARNING AYDE WELLS [facility] Jun 09, 2004 ADVANCE DIRECTIVE DARYL VILLARREAL [facility] Jun 07, 2004 ADVANCE DIRECTIVE SHERYL [...] the Encounter. The data comes from all [place] treatment facilities. Date/Time Radiology Report Provider Source Mar 01, 2021 09:44 AM US LOWER EXTREMITY VEIN (UNILATERAL) ( P): XIAO HUGGINS [facility] JESSICA MOJICA [id number] -[birth year] 8 M Exm Date: MAR 01, 2021@09:44 Req Phys: AMARJIT OWEN Loc: [facility] (Re Img Loc: Ultrasound Imaging Service: Unknown (Case [id number] COMPLETE) US EXTREMITY VEINS UNILAT (U S Detailed) CPT:00903 Proc Modifiers : LEFT Reason for Study: [...] pager listed below: User placing orders pager: [phone] LAST CREATININE 0.6 L (12/15/20) Report Status: Verified Date Reported: MAR 01, 2021 Date Verified: MAR 01, 2021 Parts Inspector E-Sig:/ES/XIAO HUGGINS MD Report: Duplex Ultrasound [...] Primary Interpreting Staff: XIAO HUGGINS MD, RADIOLOGIST (Parts Inspector) Primary Interpreting Resident: JANNET JOSEPH, CONCRETE FINISHING 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 /[facility]
--- OUTSIDE RECORDS SUMMARY | 2021-12-23 19:55 | XMS_ITS | Encounter Summary ---
:1945 Author Organization [facility] Address [address] [place] [address] Support Name Relationship Address Phone FRANCES GANDARA Unavailable [address] [place] [address] FRANCES GANDARA Unavailable [address] [place] [address] FRANCES GANDARA Unavailable [address] [place] [address] FRANCES GANDARA Unavailable [address] [place] [address] Insurance Providers: All historical and current Section [...] MEDICARE MEDICARE PART Apr 19, PART A [id number] 800 Whit MOJICA (WNR) (M) A 2007 50A [phone] JESSICA MEDICARE MEDICARE PART Apr 19, PART A [id number] 800 Whit MOJICA (WNR) (M) A 2007 [id number] [phone] JESSICA Selected Encounter This section includes the information on record at [place] for the Encounter. Date/Time Encounter Type Encounter Description Reason Provider Source Feb 16, 2021 08:30 Outpatient Encounter [facility] AM (JONATHONCT) IHE Encounter Template Text not used by [place] Plan of Treatment: Future Appointments (+ 6 [...] 20 appointments. The data comes from all [facility]. Appointment Date/Time Appointment Type Appointment Facili ty Name Feb 17, 2021 02:30 PM AMBULATORY - NONE [facility] Feb 23, 2021 09:00 AM AMBULATORY - NONE [facility] Feb 23, 2021 01:30 PM AMBULATORY - NONE [facility] Feb 23, 2021 02:30 PM AMBULATORY - MEDICINE [facility] Feb 28, 2021 08:00 AM AMBULATORY - NONE [facility] Mar 01, 2021 07:45 AM AMBULATORY - SURGERY [facility] Mar 01, 2021 08:43 AM AMBULATORY - MEDICINE [facility] Mar 01, 2021 09:44 AM AMBULATORY - NONE [facility] Mar 02, 2021 02:00 PM AMBULATORY - REHAB MEDICINE [facility] Mar 03, 2021 01:00 PM AMBULATORY - SURGERY [facility] Mar 08, 2021 01:00 PM AMBULATORY - NONE [facility] Mar 09, 2021 10:45 AM AMBULATORY - SURGERY [facility] Mar 09, 2021 11:30 AM AMBULATORY - NONE [facility] Mar 10, 2021 10:45 AM AMBULATORY - NONE [facility] Mar 17, 2021 11:30 AM AMBULATORY - NONE [facility] Mar 22, 2021 02:30 PM AMBULATORY - NONE [facility] Mar 23, 2021 07:00 AM AMBULATORY - NONE [facility] Mar 28, 2021 02:00 PM AMBULATORY - MEDICINE [facility] Mar 31, 2021 07:00 AM AMBULATORY - NONE [facility] Mar 31, 2021 02:00 PM AMBULATORY - REHAB MEDICINE [facility] Active, Pending, and Scheduled Orders This section includes a listing of several types of active, pending, and scheduled orders, including clinic medications orders, diagnostic test orders, procedure orders and consult orders; where the start date of the order is 45 days before the date of the Encounter or 45 days after the date of the Encounter. The data comes from all [facility]. Test Date/Time Test Type Test Details Facility Name Jan 25, 2021 06:15 Laboratory - COVID-19 DIAGNOSTIC PANEL [facility] AM Chemistry Order (CEPHEID) NASOPHARYNGEAL SWAB WC [...] Reference Range Comment Mar 01, 2021 09:31 [facility] EXTRA MINT TUBE Specimen Type: PLASMA AM No comment enter ed. Ordering Provid er: AMARJIT OWEN Report Released Date/Time: Mar 01, 2021 09:31 AM Reporting Lab: [facility] [address] [facility] [address] Performing Lab: [facility] [address] [facility] [address] EXTRA MINT TUBE RECEIVED Mar 01, 2021 09:31 [facility] C-REACTIVE PROTEIN Specim en Type: SERUM AM No comment enter ed. Ordering Provid er: AMARJIT OWEN Report Released Date/Time: Mar 01, 2021 09:12 AM Reporting Lab: [facility] [address] [facility] [address] Performing Lab: [facility] [address] [facility] [address] C-REACTIVE PROTEIN 9.22 H <5.00 Mar 01, 2021 09:31 AM [facility] CBC & DIFF Specim en Type: BLOOD Comment: Automa sarthak Differential Performed Ordering Provid er: AMARJIT OWEN Report Released Date/Time: Mar 01, 2021 09:12 AM Reporting Lab: [facility] [address] [facility] [address] Performing Lab: [facility] [address] [facility] [address] WBC 5.58 4.0-11.0 RBC 4.90 4.6-6.2 HGB [...] 0.02 0-0.1 Mar 01, 2021 09:31 AM [facility] HEMOGLOBIN A1C Specim en Type: BLOOD No comment enter ed. Ordering Provid er: CARIDAD DENNIS Report Released Date/Time: Mar 01, 2021 04:01 PM Reporting Lab: [facility] [address] [facility] [address] Performing Lab: [facility] [address] HEMOGLOBIN A1C 8.0 H 4.0-6.0 Social History: Smoking Status (Most current) and Tobacco Use (All prior to encounter date) This section includes the most current, and the historical, smoking and tobacco-related health factors from the [place] facility where the Encounter took place.Current Smoking Status This section includes the most current smoking, or tobacco-related health factor, from the [place] facility where the Encounter took place. Date/Time Current Smoking Status Comment Facility July 09, 2020 02:00 PM VA-TOBACCO FORMER USER [facility] Tobacco Use History This section includes a history of the smoking, or tobacco- related health factors, that were collected on or before the date of the Encounter. The data comes from the [place] facility where the Encounter took place. Date/Time Smoking Status/Tobacco Use Comment [facility] July 09, 2020 02:00 PM VA-TOBACCO QUIT 15 YRS OR MORE [facility] Apr 17, 2019 02:39 PM INPT NO TOBACCO USE IN LAST 30 DAYS [facility] Feb 04, 2019 10:37 AM [place]-TOBACCO NEVER USED TROY BLANTON [facility] Oct 15, 2018 02:43 PM INPT NO TOBACCO USE IN LAST 30 DAYS [facility] Oct 13, 2018 11:30 PM INPT NO TOBACCO USE IN LAST 30 DAYS [facility] Sep 02, 2018 05:50 PM INPT NO TOBACCO USE IN LAST 30 DAYS [facility] Aug 12, 2018 07:28 PM INPT NO TOBACCO USE IN LAST 30 DAYS [facility] Jan 30, 2018 03:28 PM VA-TOBACCO FORMER USER [facility] Jan 30, 2018 03:28 PM VA-TOBACCO QUIT 15 YRS OR MORE [facility] May 29, 2017 04:53 PM INPT NO TOBACCO USE IN LAST 30 DAYS [facility] Apr 25, 2017 10:44 PM INPT NO TOBACCO USE IN LAST 30 DAYS [facility] Jan 01, 2017 06:40 PM INPT NO TOBACCO USE IN LAST 30 DAYS [facility] Dec 21, 2016 02:43 PM FORMER TOBACCO USER 7Y OR GREATER [facility] Sep 24, 2013 08:52 AM FORMER TOBACCO USER 7Y OR GREATER [facility] Advance Directives: All historical and [...] 29, 2017 CLINICAL WARNING [place]ELIO [place]RE[place] [facility] May 16, 2017 ADVANCE DIRECTIVE SERENITY BUENROSTRO [facility] May 16, 2017 ADVANCE DIRECTIVE DISCUSSION SERENITY [place]O [place] [facility] May 04, 2017 CLINICAL WARNING MAGO DIAMOND [facility] May 04, 2017 CLINICAL WARNING GAEL ROSARIO [facility] Apr 26, 2017 CLINICAL WARNING JENNIFER DE LEON [facility] Jan 01, 2017 CLINICAL WARNING AYDE WELLS [facility] Jun 09, 2004 ADVANCE DIRECTIVE DARYL VILLARREAL [facility] Jun 07, 2004 ADVANCE DIRECTIVE SHERYL HOLLOWAY [facility] Radiology Reports: +/- 30 days of [...] [place] facilities. Date/Time Radiology Report Provider Source Mar 01, 2021 09:44 AM US LOWER EXTREMITY VEIN (UNILATERAL) ( P): XIAO HUGGINS-VIJAY [facility] JESSICA MOJICA [id number] -[birth year] 8 M Exm Date: MAR 01, 2021@09:44 Req Phys: AMARJIT OWEN Loc: [facility] (Re Img Loc: Ultrasound Imaging Service: Unknown (Case [id number] COMPLETE) US EXTREMITY VEINS UNILAT (U S Detailed) CPT:15142 Proc Modifiers : LEFT Reason for Study: please look for DVT Clinical History: [place] IS NOT under investigation for COVID-19 or is COVID-19 negative Swelling, erythema, tenderness incl along deep veins. NOt responsive to antibiotic course. Wells score fo r DVT = 5 Responsible provider name and phone number to n otify for critical findings if other than user placing the order a nd pager listed below: User placing orders pager: [phone] LAST CREATININE 0.6 L (12/15/20) Report Status: Verified Date Reported: MAR 01, 2021 Date Verified: MAR 01, 2021 Oxyacetylene Torch Operator E-Sig:/ES/XIAO HUGGINS MD Report: Duplex Ultrasound of the Deep Veins of the LEFT Lower Extremity Technique: Renteria-scale evaluation with compressi on and Doppler assessment of venous system for spontaneous and phasic flow, as well as the presence of distal augmentation. Co lnaey flow images obtained as needed. Comparison study: [...] Primary Interpreting Staff: XIAO HUGGINS MD, RADIOLOGIST (Oxyacetylene Torch Operator) Primary Interpreting Resident: JANNET JOSEPH, ONCOLOGY PHARMACIST /RISebastian
--- OUTSIDE RECORDS SUMMARY | 2021-12-23 19:57 | XMS_ITS | Encounter Summary ---
:1945 Author Organization [facility] Address [address] [place] [id number] Support Name Relationship Address Phone FRANCES GANDARA Unavailable [address] [place] [address] FRANCES GANDARA Unavailable [address] [place] [address] FRANCES GANDARA Unavailable [address] [place] [address] FRANCES GANDARA Unavailable [address] [place] [address] Insurance Providers: All historical and current Section [...] MEDICARE MEDICARE PART Apr 19, PART A [id number] Whit MOJICA (WNR) (M) A 2007 50A [phone] JESSICA MEDICARE MEDICARE PART Apr 19, PART A [id number] Whit MOJICA (WNR) (M) A 2007 [id number] [phone] JESSICA Selected Encounter This section includes the information on record at [place] for the Encounter. Date/Time Encounter Type Encounter Description Reason Provider Source Nov 22, 2021 11:33 Outpatient Encounter COMMUNITY CARE AM CONSULT IHE [...] Appointment Type Appointment Facili ty Name Nov 29, 2021 01:30 PM AMBULATORY - MEDICINE [facility] Nov 29, 2021 02:30 PM AMBULATORY - MEDICINE [facility] Dec 07, 2021 04:45 PM AMBULATORY - NONE [facility] Dec 12, 2021 02:30 PM AMBULATORY - SURGERY [facility] Dec 15, 2021 10:00 AM AMBULATORY - MEDICINE [facility] Dec 15, 2021 12:30 PM AMBULATORY - NONE [facility] Dec 15, 2021 12:45 PM AMBULATORY - NONE [facility] Dec 15, 2021 02:30 PM AMBULATORY - SURGERY [facility] Dec 20, 2021 02:00 PM AMBULATORY - NONE [facility] Dec 22, 2021 03:30 AM AMBULATORY - NONE [facility] Jan 02, 2022 05:10 PM AMBULATORY - REHAB MEDICINE [facility] Jan 03, 2022 05:00 PM AMBULATORY - REHAB MEDICINE [facility] Jan 05, 2022 04:00 PM AMBULATORY - NONE [facility] Jan 10, 2022 10:00 AM AMBULATORY - SURGERY [facility] Jan 10, 2022 02:30 PM AMBULATORY - MEDICINE [facility] Jan 10, 2022 03:30 PM AMBULATORY - MEDICINE [facility] Feb 01, 2022 03:30 PM AMBULATORY - SURGERY [facility] Feb 09, 2022 02:40 PM AMBULATORY - SURGERY [facility] Feb 14, 2022 10:00 AM AMBULATORY - SURGERY [facility] Feb 23, 2022 08:00 AM [facility] - NONE [facility] [...] the Encounter. The data comes from all [place] treatment [facility]. Test Date/Time Test Type Test Details Facility Name Nov 26, 2021 12:00 Laboratory - HEMOGLOBIN A1C BLOOD SP [facility] AM Chemistry Order ONCE Dec 13, 2021 11:50 Consult Order COMMUNITY CARE-DENTAL GEN MIN [facility] AM SERV Cons [facility] Dec 15, 2021 12:00 Laboratory - COMPREHENSIVE METABOLIC [facility] AM Chemistry Order PANEL+MG PLASMA SP Dec 15, 2021 12:00 Laboratory - C-REACTIVE PROTEIN PLASMA MIN [facility] AM Chemistry Order SP Dec 15, 2021 12:00 Laboratory - HEMOGLOBIN A1C BLOOD SP [facility] AM Chemistry Order Dec 15, 2021 12:00 Laboratory - TSH W/REFLEX TO FREE T4 [facility] AM Chemistry Order PLASMA SP Dec 15, 2021 12:00 Laboratory - SED RATE BLOOD SP [facility] AM Chemistry Order Dec 15, 2021 12:00 Laboratory - CBC & DIFF BLOOD SP ONCE [facility] AM Chemistry Order Dec 15, 2021 11:15 Consult Order WOUND [facility] OUTPT [facility] AM Cons [facility] [employer] Dec 15, 2021 11:15 Consult Order COMMUNITY CARE-WOUND CARE MIN [facility] AM PC Cons [facility] Dec 15, 2021 11:36 Consult Order UROLOGY OUTPT Cons KERRYAPOLI S [facility] AM [facility] [employer] Dec 15, 2021 11:51 Consult Order [facility] AM Cons [facility] Dec 15, 2021 12:01 Consult Order NEUROLOGY OUTPT Cons [facility] PM [facility] Dec 16, 2021 12:00 Imaging - Magnetic MRI FOOT RIGHT (P) [facility]UR[facility] AM Resonance Imaging (MRI) Order Dec 16, 2021 08:41 Consult Order OT OCCUPATIONAL THERAPY [facility] PM OUTPT PACT Cons [facility] [employer] Social History: Smoking Status (Most current) [...] 25, 2021 11:00 AM VA-TOBACCO NEVER USED [facility] Tobacco Use History This section includes a history of the smoking, or tobacco- related health factors, that were collected on or before the date of the Encounter. The data comes from the [place] facility where the Encounter took place. Date/Time Smoking Status/Tobacco Use Comment Facil ity July 09, 2020 02:00 PM VA-TOBACCO FORMER USER MIN [facility] July 09, 2020 02:00 PM VA-TOBACCO QUIT 15 YRS OR MORE [facility] Apr 17, 2019 02:39 PM INPT NO TOBACCO USE IN LAST 30 DAYS [facility] Feb 04, 2019 10:37 AM VA-TOBACCO NEVER USED MINN HARVINDER [facility] Oct 15, 2018 02:43 PM INPT [...] 2018 03:28 PM VA-TOBACCO FORMER USER MIN [facility] Jan 30, 2018 03:28 [...] 29, 2017 CLINICAL WARNING CORNELIO FREITASI Tasha [facility] May 16, 2017 ADVANCE DIRECTIVE SERENITY BUENROSTRO [facility] May 16, 2017 ADVANCE DIRECTIVE DISCUSSION [facility] [place]O [place] [facility] May 04, 2017 CLINICAL WARNING MAGO [...] Jun 07, 2004 ADVANCE DIRECTIVE AMIESHERYL ANN [facility] Radiology Reports: +/- 30 [...] the Encounter. The data comes from all [place] treatment facilities. Date/Time Radiology Report Provider Source Dec 15, 2021 12:22 FOOT RIGHT 3 VIEWS OR MORE: ROMINA WASSERMAN [facility] PM JESSICA MOJICA [id number] -[birth year] 8 M Exm Date: DEC 15, 2021@12:22 Req Phys: CARIDAD DENNIS Pat Loc: [facility] PACT SAPPHIRE 4E (Req'g Lo Img Loc: MAIN X-RAY Service: Unknown (Case [id number] COMPLETE) FOOT RIGHT 3 VIEWS OR MORE (RAD Detailed) CPT:53236 Proc Modifiers : RIGHT Reason for Study: eval for osteomyelitis Clinical History: IS NOT under investigation for COVID-19 or is COVID-19 negative plantar non-healing diabetic ulcer for months-y ears. eval for osteomyelitis Responsible provider name and margarito ne number to notify for critical findings if other than user placing the order and pager listed below: User placing orders pag er: [phone] LAST CREATININE 0.7 (07/29/21) Report Status: Verified Date Reported: DEC 15, 2021 Date Verified: DEC 15, 2021 Audioprosthologist E-Sig:/ES/ROMINA WASSERMAN MD Report: 3 views right foot 12/15/2021 Comparisons: 05/20/2021. Impression: Challenging to identify the patient's chronic p lantar nonhealing diabetic ulcer, which may be at the plantar adalberto face, just below the mid tarsal bones. Prior small subcutaneous emphysema mid plantar surface now resolved. Resorption of oniel or ossific fragments at the inferior mid foot plantar rosa in, mechanism of bone loss uncertain. A new well-corticated luce ncy at the anterior distal inferior aspect of the calcaneu s could potentially relate to a prior infectious tract. No other specific findings to suggest active osteomyelitis. If fu rther assessment for potential osteomyelitis of the posttraumati c foot is desired, options may include gadolinium-enhanced MRI. 1. 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 Latera l subluxation of the proximal second through fifth tarsal bones at the Lisfranc joint, unchanged. New intra-articular fragmenta tion of the proximal medial aspect proximal phalanx fifth d igit at the metatarsophalangeal joint, age-indeterminate. 2. Significant degenerative change middle/later al cuneiform, and cuboid, at the proximal second through fifth me tatarsal joints, with prominent hypertrophic bone. 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 Moderate first metatarsophalangeal dege nerative joint change. 3. Degenerative/destructive changes of previous ly noted inferior plantar region mid tarsal bones appears mildly progressed since 05/20/2021. 4. Increased soft tissue swelling of the dorsal and plantar mid foot, which may reflect cellulitis, or sequelae of recurrent trauma. 5. 11 mm calcaneal spur. Primary Interpreting Staff: ROMINA WASSERMAN MD, RADIOLOGIST (Audioprosthologist) /[facility] Nov 02, 2021 04:01 KNEE RIGHT 3 VIEWS: MOOSE GROVER [facility] IS [facility] JESSICA MOJICA PRERNA [id number] -[birth year] 8 M Ex Date: NOV 02, 2021@16:01 Req Phys: CARIDAD DENNIS Pat Loc: [facility] Img Loc: MAIN X-RAY Service: Unknown (Case [id number] COMPLETE) KNEE RIGHT 3 VIEWS (RAD Det elle) CPT:62615 Proc Modifiers : STANDING RIGHT, STANDING LEFT CPT Modifiers : RT RIGHT SIDE Reason for Study: knee pain Clinical History: IS NOT under investigation for COVID-19 or is COVID-19 negative knee pain Responsible provider name and phone n umber to notify for critical findings if other than user dheeraj su the order and pager listed below: User placing orders pager: [phone] LAST CREATININE 0.7 (07/29/21) Report Status: Verified Date Reported: NOV 02, 2021 Date Verified: NOV 02, 2021 Audioprosthologist E-Sig:/ES/MOOSE GROVER MD Report: EXAM: KNEE RIGHT 3 VIEWS 11/02/2021 REASON FOR STUDY: knee pain COMPARISON: None. 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 Mild degenerative change of the m edial compartment. There is no fracture. There is a small knee harshal nt effusion. Bones appear demineralized. Moderate vascular calcifi cations. Primary Interpreting Staff: MOOSE GROVER MD, RADIOLOGIST (Audioprosthologist) /[facility] Nov 02, 2021 04:01 KNEE LEFT 3 VIEWS: MARCIANO FRANCISCO [facility] JESSICA MOJICA [id number] -[birth year] 8 M Exm Date: NOV 02, 2021@16:01 Req Phys: SONNY,CARIDAD STUART Pat Loc: [facility] Img Loc: MAIN X-RAY Service: Unknown (Case [id number] COMPLETE) KNEE LEFT 3 VIEWS (RAD Deta iled) CPT:92750 Proc Modifiers : STANDING RIGHT, STANDING LEFT CPT Modifiers : LT LEFT SIDE Reason for Study: knee pain Clinical History: [place] IS NOT under investigation for COVID-19 or is COVID-19 negative knee pain Responsible provider name and phone n umber to notify for critical findings if other than user joseluisin g the order and pager listed below: User placing orders pager: [phone] LAST CREATININE 0.7 (07/29/21) Report Status: Verified Date Reported: NOV 02, 2021 Date Verified: NOV 02, 2021 Audioprosthologist E-Sig:/ES/MARCIANO FRANCISCO MD Report: EXAMINATION: KNEE LEFT [...] Primary Interpreting Staff: MARCIANO FRANCISCO MD, RADIOLOGIST (Audioprosthologist) /RTS Oct 26, 2021 05:14 LNR INCIDENTAL NODULE LD FOLLOW UP: Tasha NUNEZ [facility] PM JESSICA MOJICA [phone] -[birth year] 8 M Exm Date: OCT 26, 2021@17:14 Req Phys: CARIDAD DENNIS Pat Loc: [facility] PACT SAPPHIRE 4E (Req'g Lo Img Loc: CT IMAGING Service: Unknown (Case [id number] COMPLETE) LNR INCIDENTAL NODULE LD FO LLOW U(CT Detailed) CPT:43255 Reason for Study: ground glass opacity from f/u Clinical History: want to schedule for september 06 IS NOT under investigation for COVID-19 or is COVID-19 negative Defer to radiologist for final CT protocol. Responsible provider name and phone number to n otify for critical findings if other than user placing the order a nd pager listed below: User placing orders pager: [phone] LAST 3: Collection DT Specimen Test Name [...] PLASMA ESTIMATED GFR(eGF >60 Ref: >=60 Allergies: ([place] only) RIVAROXABAN (Jul 25, 2017) Report Status: Verified Date Reported: OCT 27, 2021 Date Verified: OCT 27, 2021 Audioprosthologist E-Sig:/ES/JOSE NUNEZ MD Report: EXAM: Non-Contrast Low-Dose [...] mancini) Primary Interpreting Resident: TRACY THOMPSON MD, CELL LINER /m Pathology Reports: +/- 30 days of the [...] the Encounter. The data comes from all [place] treatment facilities. Date/Time Pathology Report Provider Source Dec 15, 2021 01:17 PM LR MICROBIOLOGY REPORT: [place]FLO [facility] Reporting Lab: [facility] [CLIA# [id number]] [place] [address] Accession [UID]: [id number] [[id number]] Receiv ed: Dec 15, 2021@13:17 Collection sample: WOUND Collection date: Nov 13:17 Provider: CARIDAD DENNIS Comment on specimen: R. DIABETIC FOOT ULCER, SWA B RECEIVED Test(s) ordered: GRAM STAIN............ ........ completed: Dec 15, 2021 14:27 CULTURE & SUSCEPTIBILITY...... completed: Nov 212021 * BACTERIOLOGY FINAL REPORT => Dec 18, 2021 11:5 7 TECH CODE: [id number] GRAM STAIN: DIRECT SMEAR of specimen before cult uring shows: 1+ PMNS 4+ GRAM POSITIVE COCCI IN PAIRS SUGGESTIVE OF STAPH, STREP, OR ENTEROCOCCUS 4+ SMALL GRAM POSITIVE RODS CULTURE PENDING CULTURE RESULTS: 1. STREPTOCOCCUS DYSGALACTIAE - Quantity: 4+ Comment: No susceptibility testing performed. 2. DIPHTHEROIDS - Quantity: 4+ Comment: No susceptibility testing performed. 3. DIPHTHEROIDS - Quantity: 2+ Comment: (second morphology) No susceptibility testing performed. 4. OTHER ORGANISMS PRESENT IN LOWER NUMBERS Bacteriology Remark(s): THIS REPORT IS FINAL =--=--=--=--=--=--=--=--=--=--=--=--=--= --=--=--=--=--=--=--=--=--=--=--=--=-- Performing Laboratory: Bacteriology Report Performed By: [facility] [CLIA# [id number]] [address] [place] [address] Encounter Notes: All associated encounter notes This section contains the clinical notes associated to the Encounter. Date/Time Encounter Note(s) Provider Source Nov 22, 2021 11:33 AM NONVA NOTE: FRANCES PALOMINO S [facility] LOCAL TITLE: COMMUNITY CARE-CARE COORDINATION P [place]IL[place] NOTE STANDARD TITLE: NONVA NOTE DATE OF NOTE: NOV 22, 2021@11:33 ENTRY DATE: NOV 22, 2021@11:33:51 AUTHOR: FRANCES PALOMINO EXP COSIGNER: URGENCY: STATUS: COMPLETED CONTACT [place] inquired about status of dental implant approval. Marine Pipefitter informed that per discussion with Dr. Lee on , would not be cleared for any dental implants until his A1c le vels were lowered. Marine Pipefitter informed that per Dr. Lee, nee ds to show compliance with appropriate A1c levels for 6 months, and should have levels checked every 2-[address] [place] [address] ated that his last A1c levels were checked roughly 2 months ago and were appropriate. Marine Pipefitter instruct ed that if he has demonstrated A1c compliance until April 2022 , he can then contact his [facility] ([facility]) for reevaluation of implant treatment plan. [place] agreed to this plan. Marine Pipefitter contacted Mendy at [facility] and in formed her of the above information. Mendy stated that she has documente d information in 's record and will submit updated implant plan in [facility] if meets requirements listed above. Action Needed? No /vinicio/ FRANCES PALOMINO AMSTrey Signed: 11/22/2021 11:44
--- OUTSIDE RECORDS SUMMARY | 2021-12-23 19:59 | XMS_ITS | Encounter Summary ---
:1945 Author Organization [facility] Address [address] [place] [address] Support Name Relationship Address Phone FRANCES GANDARA Unavailable [address] [place] [address] FRANCES GANDARA Unavailable [address] [place] [address] FRANCES GANDARA Unavailable [address] [place] [address] FRANCES GANDARA Unavailable [address] [place] [address] Insurance Providers: All historical and current Section [...] MEDICARE MEDICARE PART Apr 19, PART A [id number] Whit MOJICA (WNR) (M) A 2007 50A [phone] JESSICA MEDICARE MEDICARE PART Apr 19, PART A [id number] Whit MOJICA (WNR) (M) A 2007 [id number] [phone] JESSICA Selected Encounter This section includes the information on record at [place] for the Encounter. Date/Time Encounter Type Encounter Description Reason Provider Source Nov 22, 2021 02:43 Outpatient Encounter TELEPHONE TRIAGE PM [facility] Encounter [...] 29, 2021 01:30 PM AMBULATORY - MEDICINE [facility] Nov 29, 2021 02:30 PM AMBULATORY - MEDICINE [facility] Dec 07, 2021 04:45 PM AMBULATORY - NONE [facility] Dec 12, 2021 02:30 PM AMBULATORY - SURGERY [facility] Dec 15, 2021 10:00 AM AMBULATORY - MEDICINE [facility] Dec 15, 2021 12:30 PM AMBULATORY - NONE [facility] Dec 15, 2021 12:45 PM AMBULATORY - NONE [facility] Dec 15, 2021 02:30 PM AMBULATORY - SURGERY [facility] Dec 20, 2021 02:00 PM AMBULATORY - NONE [facility] Dec 22, 2021 03:30 AM AMBULATORY - NONE [facility] Jan 02, 2022 05:10 PM AMBULATORY - REHAB MEDICINE [facility] Jan 03, 2022 05:00 PM AMBULATORY - REHAB MEDICINE [facility] Jan 05, 2022 04:00 PM AMBULATORY - NONE [facility] Jan 10, 2022 10:00 AM AMBULATORY - SURGERY [facility] Jan 10, 2022 02:30 PM AMBULATORY - MEDICINE [facility] Jan 10, 2022 03:30 PM AMBULATORY - MEDICINE [facility] Feb 01, 2022 03:30 PM AMBULATORY - SURGERY [facility] Feb 09, 2022 02:40 PM AMBULATORY - SURGERY [facility] Feb 14, 2022 10:00 AM AMBULATORY - SURGERY [facility] Feb 23, 2022 08:00 AM AMBULATORY - NONE [facility] Active, Pending, and Scheduled [...] The data comes from all [place] treatment [facility]. Test Date/Time Test Type Test Details Facility Name Nov 26, 2021 12:00 Laboratory - HEMOGLOBIN A1C BLOOD SP [facility] AM Chemistry Order ONCE Dec 13, 2021 11:50 Consult Order COMMUNITY CARE-DENTAL GEN MIN [facility] AM SERV Cons [employer] Technician's Choice Dec 15, 2021 12:00 Laboratory - HEMOGLOBIN A1C BLOOD SP [facility] AM Chemistry Order Dec 15, 2021 12:00 Laboratory - COMPREHENSIVE METABOLIC [facility] AM Chemistry Order PANEL+MG PLASMA SP Dec 15, 2021 12:00 Laboratory - C-REACTIVE PROTEIN PLASMA MIN [facility] AM Chemistry Order SP Dec 15, 2021 12:00 Laboratory - SED RATE BLOOD SP [facility] AM Chemistry Order Dec 15, 2021 12:00 Laboratory - TSH W/REFLEX TO FREE T4 [facility] AM Chemistry Order PLASMA SP Dec 15, 2021 12:00 Laboratory - CBC & DIFF BLOOD SP [facility] AM Chemistry Order Dec 15, 2021 11:15 Consult Order WOUND LITHOGRAPHIC ARTIST SERVICE OUTPT [facility] AM Cons [employer] Technician's Choice Dec 15, 2021 11:15 Consult Order COMMUNITY CARE-WOUND CARE [facility] AM PC Cons [employer] Technician's Choice Dec 15, 2021 11:36 Consult Order UROLOGY OUTPT Cons KERRYAPOLI S [facility] AM [employer] Technician's Choice Dec 15, 2021 11:51 Consult Order [facility] RE[facility] AM Cons [employer] Technician's Choice Dec 15, 2021 12:01 Consult Order NEUROLOGY OUTPT Cons RACHELLEO LIS [facility] PM [employer] Technician's Choice Dec 16, 2021 12:00 Imaging - Magnetic MRI FOOT RIGHT (P) [facility] TURNER [facility] AM Resonance Imaging (MRI) Order Dec 16, 2021 08:41 Consult Order OT OCCUPATIONAL THERAPY [facility] PM OUTPT PACT Cons [employer] Technician's Choice Social History: Smoking Status (Most current) [...] 25, 2021 11:00 AM VA-TOBACCO NEVER USED [facility] Tobacco Use History This section includes a history of the smoking, or tobacco- related health factors, that were collected on or before the date of the Encounter. The data comes from the [place] facility where the Encounter took place. Date/Time Smoking Status/Tobacco Use Comment Facil ity July 09, 2020 02:00 PM [facility]ACCO [facility] July 09, 2020 02:00 PM VA-TOBACCO QUIT [address] [facility] Apr 17, 2019 02:39 PM INPT NO TOBACCO USE IN LAST [address] [facility] Feb 04, 2019 10:37 AM VA-TOBACCO NEVER USED MINN HARVINDER [facility] Oct 15, 2018 02:43 PM INPT NO TOBACCO USE IN LAST [address] [facility] Oct 13, 2018 11:30 PM INPT NO TOBACCO USE IN LAST [address] [facility] Sep 02, 2018 05:50 PM INPT NO TOBACCO USE IN LAST [address] [facility] Aug 12, 2018 07:28 PM INPT NO TOBACCO USE IN LAST [address] [facility] Jan 30, 2018 03:28 PM VA-TOBACCO FORMER USER MIN [facility] Jan 30, 2018 03:28 PM VA-TOBACCO QUIT [address] [facility] May 29, 2017 04:53 PM INPT NO TOBACCO USE IN LAST [address] [facility] Apr 25, 2017 10:44 PM INPT NO TOBACCO USE IN LAST [address] [facility] Jan 01, 2017 06:40 PM INPT NO TOBACCO USE IN LAST [address] [facility] Dec 21, 2016 02:43 PM FORMER TOBACCO USER 7Y OR GREATER [facility] Sep 24, 2013 08:52 AM FORMER TOBACCO USER 7Y OR GRE[address] [facility] Advance Directives: All historical [...] 04, 2017 CLIN[address] GAEL [address]IO [facility] Apr 26, 2017 CLINICAL WARNING JENNIFER DE LEON [facility] Jan 01, 2017 CLINICAL WARN[address] AYDE WELLS [facility] Jun 09, 2004 ADVANCE DIRECTIVE PHILDARYL Cortes [facility] Jun 07, 2004 ADVANCE DIRECTIVE SHERYL HOLLOWAY [facility] Radiology Reports: +/- 30 [...] RIGHT 3 VIEWS OR MORE: ROMINA WASSERMAN [facility] PM JESSICA MOJICA [id number] -[birth year] 8 M Exm Date: DEC 15, 2021@12:22 Req Phys: CARIDAD MARTINEZ Pat Loc: [facility] PACT SAPPHIRE 4E (Req'g Lo Img Loc: MAIN X-RAY Service: Unknown (Case [id number] COMPLETE) FOOT RIGHT 3 VIEWS OR MORE (RAD Detailed) CPT:53644 Proc Modifiers : RIGHT Reason for Study: [...] 15, 2021 Date Verified: DEC 15, 2021 Photoengraving Machine Operator/Tender E-Sig:/ES/ROMINA WASSERMAN MD Report: 3 views right [...] Primary Interpreting Staff: ROMINA WASSERMAN MD, RADIOLOGIST (Photoengraving Machine Operator/Tender) /[facility] Nov 02, 2021 04:01 KNEE RIGHT 3 VIEWS: MOOSE GROVER [facility] JESSICA MOJICA PRERNA [id number] -[birth year] 8 M Ex Date: NOV 02, 2021@16:01 Req Phys: CARIDAD MARTINEZ [facility] Loc: MAIN X-RAY Service: Unknown (Case [id number] COMPLETE) KNEE RIGHT 3 VIEWS (RAD Det elle) CPT:26869 Proc Modifiers : STANDING RIGHT, STANDING LEFT CPT Modifiers : RT RIGHT SIDE Reason for Study: knee pain Clinical History: IS NOT under investigation for COVID-19 or is COVID-19 negative knee pain Responsible provider name and phone n umber to notify for critical findings if other than user dheeraj su the order and pager listed below: User placing orders pager: [phone] LAST CREATININE 0.7 (07/29/21) Report Status: Verified Date Reported: NOV 02, 2021 Date Verified: NOV 02, 2021 Photoengraving Machine Operator/Tender E-Sig:/ES/MOOSE GROVER MD Report: EXAM: KNEE RIGHT 3 VIEWS 11/02/2021 REASON FOR STUDY: knee pain COMPARISON: None. 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 Mild degenerative change of the m edial compartment. There is no fracture. There is a small knee harshal nt effusion. Bones appear demineralized. Moderate vascular calcifi cations. Primary Interpreting Staff: MOOSE GROVER MD, RADIOLOGIST (Photoengraving Machine Operator/Tender) /[facility] Nov 02, 2021 04:01 KNEE LEFT 3 VIEWS: MARCIANO FRANCISCO [facility] JESSICA MOJICA [id number] -[birth year] 8 M Exm Date: NOV 02, 2021@16:01 Req Phys: SONNY,CARIDAD STUART Pat Loc: [facility] Img Loc: MAIN X-RAY Service: Unknown (Case [id number] COMPLETE) KNEE LEFT 3 VIEWS (RAD Deta iled) CPT:81759 Proc Modifiers : STANDING RIGHT, STANDING LEFT CPT Modifiers : LT LEFT SIDE Reason for Study: knee pain Clinical History: IS NOT under investigation for COVID-19 or is COVID-19 negative knee pain Responsible provider name and phone n umber to notify for critical findings if other than user joseluisin g the order and pager listed below: User placing orders pager: [phone] LAST CREATININE 0.7 (07/29/21) Report Status: Verified Date Reported: NOV 02, 2021 Date Verified: NOV 02, 2021 Photoengraving Machine Operator/Tender E-Sig:/ES/MARCIANO FRANCISCO MD Report: EXAMINATION: KNEE LEFT [...] Primary Interpreting Staff: MARCIANO FRANCISCO MD, RADIOLOGIST (Photoengraving Machine Operator/Tender) /RTS Oct 26, 2021 05:14 LNR INCIDENTAL NODULE LD FOLLOW UP: Tasha NUNEZ [facility] PM JESSICA MOJICA [id number] -[birth year] 8 M Exm Date: OCT 26, 2021@17:14 Req Phys: CARIDAD MARTINEZ Pat Loc: [facility] PACT SAPPHIRE 4E (Req'g Lo Img Loc: CT IMAGING Service: Unknown (Case [id number] COMPLETE) LNR INCIDENTAL NODULE LD FO LLOW U(CT Detailed) CPT:75086 Reason for Study: ground glass opacity from f/u Clinical History: want to schedule for september 06 [place] IS NOT under investigation for COVID-19 or is COVID-19 negative Defer to radiologist for final CT protocol. Responsible provider name and phone number to n otify for critical findings if other than user placing the order a nd pager listed below: User placing orders pager: [phone] LAST 3: Collection DT Specimen Test Name [...] PLASMA ESTIMATED GFR(eGF >60 Ref: >=60 Allergies: (Brillion only) RIVAROXABAN (Jul 25, 2017) Report Status: Verified Date Reported: OCT 27, 2021 Date Verified: OCT 27, 2021 Photoengraving Machine Operator/Tender E-Sig:/ES/JOSE NUNEZ MD Report: EXAM: Non-Contrast Low-Dose [...] mancini) Primary Interpreting Resident: TRACY THOMPSON MD, MACHINE HOOP MAKER HELPER /m Pathology Reports: +/- 30 days of [...] comes from all [place] treatment facilities. Date/Time Pathology Report Provider Source Dec 15, 2021 01:17 PM LR MICROBIOLOGY REPORT: [place] [facility] [place] [facility] Reporting Lab: [facility] [CLIA# [id number]] [place] [address] Accession [UID]: [id number] [[id number]] Receiv ed: Dec 15, 2021@13:17 Collection sample: WOUND Collection date: Nov 13:17 Provider: CARIDAD MARTINEZ Comment on specimen: R. DIABETIC FOOT ULCER, SWA B RECEIVED Test(s) ordered: GRAM STAIN............ ........ completed: Dec 15, 2021 14:27 CULTURE & SUSCEPTIBILITY...... completed: Nov 212021 * BACTERIOLOGY FINAL REPORT => Dec 18, 2021 11:5 7 TECH CODE: [id number] GRAM STAIN: DIRECT SMEAR of specimen before [...] --=--=--=--=--=--=--=--=--=--=--=--=-- Performing Laboratory: Bacteriology Report Performed By: [facility] [CLIA# [id number]] [address] [place] [address] Encounter Notes: All associated encounter notes This section contains the clinical notes associated to the Encounter. Date/Time Encounter Note(s) Provider Source Nov 22, 2021 02:43 PM REPORT OF CONTACT: DARYL BERMAN YUE [facility] LOCAL TITLE: PATIENT CONTACT NOTE STANDARD TITLE: REPORT OF CONTACT DATE OF NOTE: NOV 22, 2021@14:43 ENTRY DATE: NOV 22, 2021@14:43:33 AUTHOR: DARYL BERMAN EXP COSIGNER: URGENCY: STATUS: COMPLETED PATIENT CONTACT NOTE Has [facility] Phone number verified as correct. Patient called wanted to knellie w if there is a substitute for the medication Corona [place] Mar. He would like a call back to discuss. If no answ er please leave a voicemail. /vinicio/ DARYL is[facility] Signed: 11/22/2021 14:45 Receipt Acknowledged By: 11/24/2021 19:32 /darya Martinez MD Primary Care Staff Physician 11/24/2021 ADDENDUM STATUS: COMPLETED Forwarding questions to patient's prescriber /darya Martinez MD Primary Care Staff Physician Signed: 11/24/2021 19:35 Receipt Acknowledged By: * AWAITING SIGNATURE * GISSELLE FOOTE 11/24/2021 ADDENDUM STATUS: COMPLETED FYI to [facility] - In the future, please revie w the ordering provider name and would helpful to send questions directly to the specia lty service. Thanks. /darya Martinez MD Primary Care Staff Physician Signed: 11/24/2021 19:37 Receipt Acknowledged By: 11/25/2021 08:03 /darya isaac [facility] 11/25/2021 ADDENDUM STATUS: COMPLETED Patient had said Corona [place] Mar is for erectile dy sfunction and the last medication that was sent out for this was TADALAFIL TAB 20MG and it was prescribed by pcp. But if DARY needs to call him then she can call ignacio garcia. thanks /vinicio/ DARYL [facility] Signed: 11/25/2021 09:08 Receipt Acknowledged By: * AWAITING SIGNATURE * CARIDAD MARTINEZ
--- OUTSIDE RECORDS SUMMARY | 2021-12-23 20:01 | XMS_ITS | Encounter Summary ---
:1945 Author Organization [facility] Address [address] [place] [id number] Support Name Relationship Address Phone FRANCES GANDARA Unavailable [address] [place] [address] FRANCES GANDARA Unavailable [address] [place] [address] FRANCES GANDARA Unavailable [address] [place] [address] FRANCES GANDARA Unavailable [address] [place] [address] Insurance Providers: All historical and current Section [...] MEDICARE MEDICARE PART Apr 19, PART A [id number] Whit MOJICA (WNR) (M) A 2007 50A [phone] JESSICA MEDICARE MEDICARE PART Apr 19, PART A [id number] Whit MOJICA (WNR) (M) A 2007 [id number] JESSICA Selected Encounter This section includes the information on record at [place] for the Encounter. Date/Time Encounter Type Encounter Description Reason Provider Source Nov 29, 2021 09:11 Outpatient Encounter UROLOGY CLINIC AM [facility] Encounter Template Text not used [...] Appointment Type Appointment Facili ty Name Dec 07, 2021 04:45 PM AMBULATORY - NONE [facility] Dec 12, 2021 02:30 PM AMBULATORY - SURGERY [facility] Dec 15, 2021 10:00 AM AMBULATORY - MEDICINE [facility] Dec 15, 2021 12:30 PM AMBULATORY - NONE [facility] Dec 15, 2021 12:45 PM AMBULATORY - NONE [facility] Dec 15, 2021 02:30 PM AMBULATORY - SURGERY [facility] Dec 20, 2021 02:00 PM AMBULATORY - NONE [facility] Dec 22, 2021 03:30 AM AMBULATORY - NONE [facility] Jan 02, 2022 05:10 PM AMBULATORY - REHAB MEDICINE [facility] Jan 03, 2022 05:00 PM AMBULATORY - REHAB MEDICINE [facility] Jan 05, 2022 04:00 PM AMBULATORY - NONE [facility] Jan 10, 2022 10:00 AM AMBULATORY - SURGERY [facility] Jan 10, 2022 02:30 PM AMBULATORY - MEDICINE [facility] Jan 10, 2022 03:30 PM AMBULATORY - MEDICINE [facility] Feb 01, 2022 03:30 PM AMBULATORY - SURGERY [facility] Feb 09, 2022 02:40 PM AMBULATORY - SURGERY [facility] Feb 14, 2022 10:00 AM AMBULATORY - SURGERY [facility] Feb 23, 2022 08:00 AM AMBULATORY - NONE [facility] Mar 27, 2022 02:30 PM AMBULATORY - SURGERY [facility] Active, Pending, and Scheduled Orders This section includes a listing of several types of active, pending, and scheduled orders, including clinic medications orders, diagnostic test orders, procedure orders and consult orders; where the start date of the order is 45 days before the date of the Encounter or 45 days after the date of the Encounter. The data comes from all [place] treatment facilities. Test Date/Time Test Type Test Details Facility Name Nov 26, 2021 12:00 Laboratory - HEMOGLOBIN A1C BLOOD SP [facility] AM Chemistry Order ONCE Dec 13, 2021 11:50 Consult Order COMMUNITY CARE-DENTAL GEN [facility] AM SERV Cons Painter Apprentice's Choice Dec 15, 2021 12:00 Laboratory - HEMOGLOBIN A1C BLOOD SP [facility] LI[facility] AM Chemistry Order Dec 15, 2021 12:00 Laboratory - COMPREHENSIVE METABOLIC [facility] JEANETTE [facility] AM Chemistry Order PANEL+MG PLASMA SP Dec 15, 2021 12:00 Laboratory - C-REACTIVE [facility]OTEIN [facility]AS[facility] Chemistry Order SP Dec 15, 2021 12:00 Laboratory - SED RATE BLOOD SP [facility] AM Chemistry Order Dec 15, 2021 12:00 Laboratory - TSH W/REFLEX TO FREE T4 [facility] AM Chemistry Order PLASMA SP Dec 15, 2021 12:00 Laboratory - CBC & DIFF [facility]LOOD [facility] Chemistry Order Dec 15, 2021 11:15 Consult Order WOUND POLITICAL SCIENCE RESEARCH ASSISTANT SERVICE [facility] AM Cons Painter Apprentice's Choice Dec 15, 2021 11:15 Consult Order COMMUNITY CARE-WOUND CARE [facility] AM PC Cons Painter Apprentice's Choice Dec 15, 2021 11:36 Consult Order UROLOGY OUTPT Cons KERRYAPOLI S [facility] AM Painter Apprentice's Choice Dec 15, 2021 11:51 Consult Order GASTROENTEROLOGY OUTPT KERRYA POLITasha [facility] AM Cons Painter Apprentice's Choice Dec 15, 2021 12:01 Consult Order NEUROLOGY OUTPT Cons RACHELLEO LIS [facility] PM Painter Apprentice's Choice Dec 16, 2021 12:00 Imaging - Magnetic MRI FOOT RIGHT [facility] AM Resonance Imaging (MRI) Order Dec 16, 2021 08:41 Consult Order OT OCCUPATIONAL THERAPY [facility] OUT[facility] PACT Cons Painter Apprentice's Choice Social History: Smoking Status (Most current) and Tobacco Use (All prior to encounter date) This section includes the most current, and the historical, smoking and tobacco-related health factors from the [place] facility where the Encounter took place.Current Smoking Status This section includes the most current smoking, or tobacco-related health factor, from the [place] facility where the Encounter took place. Date/Time Current Smoking Status Comment Facility Apr 25, 2021 11:00 AM VA-TOBACCO NEVER USED [facility] Tobacco Use History This section includes a history of the smoking, or tobacco- related health factors, that were collected on or before the date of the Encounter. The data comes from the [place] facility where the Encounter took place. Date/Time Smoking Status/Tobacco Use Comment [facility] July 09, 2020 02:00 PM VA-TOBACCO FORMER USER [place] [facility] July 09, 2020 02:00 PM VA-TOBACCO QUIT 15 YRS OR MORE [facility] Apr 17, 2019 02:39 PM INPT NO TOBACCO USE IN LAST 30 DAYS [facility] Feb 04, 2019 10:37 AM VA-TOBACCO NEVER USED [place] [facility] Oct 15, 2018 02:43 PM INPT NO TOBACCO USE IN LAST 30 DAYS [facility] Oct 13, 2018 11:30 PM INPT NO TOBACCO USE IN LAST 30 DAYS [facility] Sep 02, 2018 05:50 PM INPT NO TOBACCO USE IN LAST 30 DAYS [facility] Aug 12, 2018 07:28 PM INPT NO TOBACCO USE IN LAST 30 DAYS [facility] Jan 30, 2018 03:28 PM [facility]ACCO [facility] Jan 30, 2018 03:28 PM VA-TOBACCO QUIT 15 YRS OR MORE [facility] May 29, 2017 04:53 PM INPT NO TOBACCO USE IN LAST 30 DAYS [facility] Apr 25, 2017 10:44 PM INPT NO TOBACCO USE IN LAST 30 DAYS [facility] Jan 01, 2017 06:40 PM INPT NO TOBACCO USE IN LAST 30 DAYS [facility] Dec 21, 2016 02:43 PM FORMER TOBACCO USER 7Y OR GREATER [facility] Sep 24, 2013 08:52 AM FORMER TOBACCO USER 7Y OR GREATER [facility] Advance Directives: All historical [...] 16, 2017 ADVANCE DIRECTIVE SERENITY BUENROSTRO [facility] May 16, 2017 ADVANCE DIRECTIVE DISCUSSION [place]STRO [place] [facility] May 04, [address] MAGO DI[address] [facility] May 04, 2017 CLINICAL WARNING GAEL ROSARIO [facility] Apr 26, 2017 CLINICAL WARNING JENNIFER DE LEON [facility] Jan 01, 2017 CLINICAL WARNING AYDE WELLS [facility] Jun 09, 2004 ADVANCE DIRECTIVE DARYL VILLARREAL [facility] Jun 07, 2004 ADVANCE DIRECTIVE SHERYL HOLLOWAY JADIEL [facility] Radiology Reports: +/- [...] the Encounter. The data comes from all [place] treatment facilities. Date/Time Radiology Report Provider Source Dec 15, 2021 12:22 FOOT RIGHT 3 VIEWS OR MORE: ROMINA WASSERMAN [facility] PM JESSICA MOJICA [id number] -[birth year] 8 M Exm Date: DEC 15, 2021@12:22 Req Phys: CARIDAD DENNIS Pat Loc: [facility] PACT SAPPHIRE 4E (Req'g Lo Img Loc: MAIN X-RAY Service: Unknown (Case [id number] COMPLETE) FOOT RIGHT 3 VIEWS OR MORE (RAD Detailed) CPT:08418 Proc Modifiers : RIGHT Reason for Study: eval for osteomyelitis Clinical History: [place] IS NOT under investigation for COVID-19 or [...] 15, 2021 Date Verified: DEC 15, 2021 Slate Roofer Helper E-Sig:/ES/ROMINA WASSERMAN MD Report: 3 views right [...] Primary Interpreting Staff: ROMINA WASSERMAN MD, RADIOLOGIST (Slate Roofer Helper) /[facility] Nov 02, 2021 04:01 KNEE RIGHT 3 VIEWS: [facility] JESSICA MOJICA [id number] -[birth year], [birth year] 8 M Ex Date: NOV 02, 2021@16:01 Req Phys: CARIDAD DENNIS Pat Loc: [facility] Img Loc: MAIN X-RAY Service: Unknown (Case [id number] COMPLETE) KNEE RIGHT 3 VIEWS (RAD Det elle) CPT:21511 Proc Modifiers : STANDING RIGHT, STANDING LEFT CPT Modifiers : RT RIGHT SIDE Reason for Study: knee pain Clinical History: [place] IS NOT under investigation for COVID-19 or is COVID-19 negative knee pain Responsible provider name and phone n umber to notify for critical findings if other than user dheeraj g the order and pager listed below: User placing orders pager: [phone] LAST CREATININE 0.7 (07/29/21) Report Status: Verified Date Reported: NOV 02, 2021 Date Verified: NOV 02, 2021 Slate Roofer Helper E-Sig:/ES/MOOSE GROVER MD Report: EXAM: KNEE RIGHT 3 VIEWS 11/02/2021 REASON FOR STUDY: knee pain COMPARISON: None. 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 Mild degenerative change of the m edial compartment. There is no fracture. There is a small knee harshal nt effusion. Bones appear demineralized. Moderate vascular calcifi cations. Primary Interpreting Staff: MOOSE GROVER MD, RADIOLOGIST (Slate Roofer Helper) /[facility] Nov 02, 2021 04:01 KNEE LEFT 3 VIEWS: MARCIANO FRANCISCO [facility] JESSICA MOJICA [id number] -[birth year], [birth year] 8 M Exm Date: NOV 02, 2021@16:01 Req Phys: SONNY,CARIDAD STUART Pat Loc: [facility] Img Loc: MAIN X-RAY Service: Unknown (Case [id number] COMPLETE) KNEE LEFT 3 VIEWS (RAD Deta iled) CPT:35166 Proc Modifiers : STANDING RIGHT, STANDING LEFT CPT Modifiers : LT LEFT SIDE Reason for Study: knee pain Clinical History: [place] IS NOT under investigation for COVID-19 or is COVID-19 negative knee pain Responsible provider name and phone n umber to notify for critical findings if other than user placin g the order and pager listed below: User placing orders pager: [phone] LAST CREATININE 0.7 (07/29/21) Report Status: Verified Date Reported: NOV 02, 2021 Date Verified: NOV 02, 2021 Slate Roofer Helper E-Sig:/ES/MARCIANO FRANCISCO MD Report: EXAMINATION: KNEE LEFT [...] Primary Interpreting Staff: MARCIANO FRANCISCO MD, RADIOLOGIST (Slate Roofer Helper) /[facility] Pathology Reports: +/- 30 days of the [...] the Encounter. The data comes from all [place] treatment facilities. Date/Time Pathology Report Provider Source Dec 15, 2021 01:17 PM LR MICROBIOLOGY REPORT: RI VIVIANE [facility] Reporting Lab: [facility] [CLIA# [id number]] [place] [address] Accession [UID]: [id number] [[id number]] Receiv ed: Dec 15, 2021@13:17 Collection sample: WOUND Collection date: Nov 13:17 Provider: CARIDAD DENNIS Comment on specimen: R. DIABETIC FOOT ULCER, SWA B RECEIVED Test(s) ordered: GRAM STAIN............ ........ completed: Dec 15, 2021 14:27 CULTURE & SUSCEPTIBILITY...... completed: Nov 212021 * BACTERIOLOGY FINAL REPORT => Dec 18, 2021 11:5 7 TECH CODE: [id number] GRAM STAIN: DIRECT SMEAR of specimen before [...] --=--=--=--=--=--=--=--=--=--=--=--=-- Performing Laboratory: Bacteriology Report Performed By: [facility] [CLIA# [id number]] [place] [address] Encounter Notes: All associated encounter notes This section contains the clinical notes associated to the Encounter. Date/Time Encounter Note(s) Provider Source Nov 29, 2021 09:11 AM REPORT OF CONTACT: HYUN PACK FLO [facility] LOCAL TITLE: PATIENT CONTACT NOTE STANDARD TITLE: REPORT OF CONTACT DATE OF NOTE: NOV 29, 2021@09:11 ENTRY DATE: NOV 29, 2021@09:11:08 AUTHOR: HYUN PACK EXP COSIGNER: URGENCY: STATUS: COMPLETED TO RS 03/2022 ED APPT TO NEXT AVAIL PER DARY. ATTEMPTED TO REACH . LINE AILYN X 3. MAILED LETTER. /vinicio/ HYUN PACK [employer] Signed: 11/29/2021 09:12
--- OUTSIDE RECORDS SUMMARY | 2021-12-23 20:06 | XMS_ITS ---
:1945 Author Organization Department of [facility] rs Address [address] [place] [address] Support Name Relationship Address Phone FRANCES GANDARA Unavailable [address] [place] [address] FRANCES GANDARA Unavailable [address] [place] [address] FRANCES GANDARA Unavailable [address] [place] [address] FRANCES GANDARA Unavailable [address] [place] [address] Insurance Providers: All historical and current Section [...] MEDICARE MEDICARE PART Apr 19, PART A [id number] Whit MOJICA (WNR) (M) A 2007 [id number] [phone] JESSICA MEDICARE MEDICARE PART Apr 19, PART A [id number] Whit MOJICA (WNR) (M) A 2007 [id number] [phone] JESSICA Selected Encounter This section includes the information on record at [place] for the Encounter. Date/Time Encounter Type Encounter Reason Provider Source Description Dec 15, 2021 OFFICE O/P EST PRIMARY ICD-10-CM GISELLE MARTINEZ 10:00 AM HI 40-54 MIN CARE/MEDICINE M14.671 STUART Charcot's joint, right ankle and foot with Provider Comments: Charcot's joint of foot (SCT [id number]) IHE Encounter Template Text not used by [place] Assessments - Encounter Diagnoses This section includes the primary and secondary diagnoses documented for the Encounter. Date/Time Primary/Secondary Diagnosis Name Provider Source Diagnosis Dec 16, 2021 PRIMARY Charcot's joint, ARMAAN MARTINEZ [place] 08:37 PM right ankle and N [place] foot Dec 16, 2021 SECOND[facility] 08:37 PM disease of [place] coronary artery w/o ang pctrs Dec 16, 2021 SECONDARY Essential tremor ARMAAN MARTINEZ [place] 08:37 PM N [facility] Dec 16, 2021 SECONDARY Type 2 diabetes [facility] 08:37 PM mellitus with foot [place] ulcer Dec 16, 2021 SECONDARY Type 2 diabetes [facility] 08:37 PM mellitus with N [facility] unspecified complications Plan of Treatment: Future Appointments (+ 6 months) and Future Tests (+/- 45 days) The Plan of Treatment section includes future care activities for the patient from all [place] treatmentfacilities. This section includes future appointments and future orders which are active, pending orscheduled.Future Appointments This section includes appointments that were scheduled to occur 6 months from the date of the Encounter, up to a maximum of 20 appointments. The data comes from all [place] treatment facilities. Appointment Date/Time Appointment Type Appointment Facili ty Name Dec 20, 2021 02:00 PM AMBULATORY - NONE [facility] Dec 22, 2021 03:30 AM AMBULATORY - NONE [facility] Jan 02, 2022 05:10 PM AMBULATORY - REHAB [facility] Jan 03, 2022 05:00 PM AMBULATORY - REHAB MEDICINE [facility] Jan 05, 2022 04:00 PM AMBULATORY - NONE [facility] Jan 10, 2022 10:00 AM AMBULATORY - SURGERY [facility] HC S Jan 10, 2022 02:30 PM AMBULATORY - MEDICINE [facility] H CS Jan 10, 2022 03:30 PM AMBULATORY - MEDICINE [facility] H CS Feb 01, 2022 03:30 PM AMBULATORY - SURGERY [facility] HC S Feb 09, 2022 02:40 PM AMBULATORY - SURGERY [facility] S Feb 14, 2022 10:00 AM AMBULATORY - SURGERY [facility] S Feb 23, 2022 08:00 AM AMBULATORY - NONE [facility] Mar 27, 2022 02:30 PM AMBULATORY - SURGERY [facility] S Active, Pending, and Scheduled Orders [...] 12:00 Laboratory - HEMOGLOBIN A1C BLOOD SP [facility] AM Chemistry Order ONCE Dec 13, 2021 11:50 Consult Order COMMUNITY CARE-DENTAL GEN [facility] AM SERV Cons Scale Manager's Choice Dec 15, 2021 12:00 Laboratory - COMPREHENSIVE METABOLIC [facility] AM Chemistry Order PANEL+MG PLASMA SP Dec 15, 2021 12:00 Laboratory - HEMOGLOBIN A1C BLOOD SP [facility] AM Chemistry Order Dec 15, 2021 12:00 Laboratory - C-REACTIVE PROTEIN PLASMA [facility] AM Chemistry Order SP Dec 15, 2021 12:00 Laboratory - SED RATE BLOOD SP [facility] AM Chemistry Order Dec 15, 2021 12:00 Laboratory - CBC & DIFF BLOOD SP ONCE [facility] AM Chemistry Order Dec 15, 2021 12:00 Laboratory - TSH W/REFLEX TO FREE T4 [facility] AM Chemistry Order PLASMA SP Dec 15, 2021 11:15 Consult Order WOUND AUTO DAMAGE APPRAISER SERVICE OUTPT [facility] AM Cons Scale Manager's Choice Dec 15, 2021 11:15 Consult Order COMMUNITY CARE-WOUND CARE [facility] AM PC Cons Scale Manager's Choice Dec 15, 2021 11:36 Consult Order UROLOGY OUTPT [facility] AM Scale Manager's Choice Dec 15, 2021 11:51 Consult Order [facility] Cons Scale Manager's Choice Dec 15, 2021 12:01 Consult Order NEUROLOGY OUTPT [facility] PM Scale Manager's Choice Dec 16, 2021 12:00 Imaging - Magnetic MRI FOOT RIGHT (P) [facility] OLIS [facility] AM Resonance Imaging (MRI) Order Dec 16, 2021 08:41 Consult Order OT OCCUPATIONAL THERAPY [facility] PM OUTPT PACT Cons Scale Manager's Choice Vital Signs: All taken on the encounter date This section contains inpatient and outpatient Vital Signs collected on the date of the Encounter. Date/Time Temperature Pulse Blood Respiratory SP02 Pain Height Weight Joseph dy Source Pressure Rate Mass Index Dec 15, 164/91 [facility] 2021 10:42 mm[Hg] [facility] Dec 15 98.1 F 66 171/90 18 /min 96 % 0 245 lb 32 [facility] 2021 10:36 /min mm[Hg] [facility] Social History: Smoking Status (Most [...] took place. Date/Time Smoking Status/Tobacco Use Comment [facility] July 09, 2020 02:00 PM VA-TOBACCO FORMER USER [facility] July 09, 2020 02:00 PM VA-TOBACCO QUIT [address] [facility] Apr 17, 2019 02:39 PM INPT NO TOBACCO USE IN LAST [address] [facility] Feb 04, 2019 10:37 AM VA-TOBACCO [place] USED [place] [facility] [...] 2018 03:28 PM VA-TOBACCO FORMER USER [facility] Jan 30, 2018 03:28 PM VA-TOBACCO [...] May 16, 2017 ADVANCE DIRECTIVE CHITRASERENITY A [facility] May 16, 2017 ADVANCE DIRECTIVE DISCUSSION SERENITY [facility]STRO [facility] [place] [facility] May 04, 2017 CLINICAL WARNING MAGO DIAMOND [facility] May 04, 2017 CLIN[address] GAEL ROSARIO [facility] Apr 26, 2017 CLINICAL WARNING JENNIFER DE LEON [facility] Jan 01, 2017 CLINICAL WARN[address] AYDE WELLS [facility] Jun 09, 2004 ADVANCE DIRECT[address] DARYL VILLARREAL [facility] Jun 07, 2004 ADVANCE DIRECTIVE SHERYL HOLLOWAY [facility] Radiology Reports: +/- 30 days [...] the Encounter. The data comes from all [facility] facilities. Date/Time Radiology Report Provider Source Dec 15, 2021 12:22 FOOT RIGHT 3 VIEWS OR MORE: ROMINA WASSERMAN [facility] PM HEATH MOJICASydney GRAFF [id number] -[birth year], [birth year] 7 M Exm Date: DEC 15, 2021@12:22 Req Phys: GISELLE MARTINEZ Pat Loc: [facility] PACT SAPPHIRE 4E (Req'g Lo Img Loc: MAIN X-RAY Service: Unknown (Case [id number] COMPLETE) FOOT RIGHT 3 VIEWS OR MORE (RAD Detailed) CPT:11238 Proc Modifiers : RIGHT Reason for Study: eval for osteomyelitis Clinical History: Yolyn IS NOT under investigation for COVID-19 or is COVID-19 negative plantar non-healing diabetic ulcer for months-y ears. eval for osteomyelitis Responsible provider name and margarito ne number to notify for critical findings if other than user placing the order and pager listed below: User placing orders pag er: [phone] LAST CREATININE 0.7 (07/29/21) Report Status: Verified Date Reported: DEC 15, 2021 Date Verified: DEC 15, 2021 Tie Binder E-Sig:/ES/ROMINA WASSERMAN MD Report: 3 views right [...] Primary Interpreting Staff: ROMINA WASSERMAN MD, RADIOLOGIST (Tie Binder) /[facility] Pathology Reports: +/- 30 days of the [...] comes from all [place] treatment facilities. Date/Time Pathology Report Provider Source Dec 15, 2021 01:17 PM LR MICROBIOLOGY REPORT: [facility] Reporting Lab: [facility] [CLIA# [id number]] [place] [address] Accession [UID]: [id number] [[id number]] Receiv ed: Dec 15, 2021@13:17 Collection sample: WOUND Collection date: Nov 13:17 Provider: GISELLE MARTINEZ Comment on specimen: R. DIABETIC FOOT ULCER, SWA B RECEIVED Test(s) ordered: GRAM STAIN............ ........ completed: Dec 15, 2021 14:27 CULTURE & SUSCEPTIBILITY...... completed: Nov 212021 * BACTERIOLOGY FINAL REPORT => Dec 18, 2021 11:5 7 TECH CODE: [id number] GRAM STAIN: DIRECT SMEAR of specimen before [...] By: [facility] [CLIA# [id number]] [place] [address] Encounter Notes: All associated encounter notes This section contains the clinical notes associated to the Encounter. Date/Time Encounter Note(s) Provider Source Dec 23, 2021 04:51 LETTERS: GISELLE MARTINEZ V [facility] LOCAL TITLE: FOLLOW UP RESULTS LETTER NARCISO STANDARD TITLE: LETTERS DATE OF NOTE: DEC 23, 2021@16:51 ENTRY DATE: DEC 23, 2021@16:52:01 AUTHOR: GISELLE MARTINEZ EXP COSIGNER: URGENCY: STATUS: COMPLETED [facility] [place] [address] Dec JESSICA MOJICA [address] [place] [address] [place] [address] Dear Yolyn: I am writing to inform you the status of your re fill request: Refilled [id number] ERGOCALCIFEROL CAP,ORAL SIG: TAKE ONE CAPSULE BY MOUTH EVERY MONTH Don't need refill. You are getting multivitamin with iron so no need for additional pills [id number] FERROUS SULFATE 325MG TAB SIG: TAKE ONE TABLET BY MOUTH EVERY DAY FOR ANE LARA (IRON) High dose vitamin E is not generally recommended now. I reduced the dose to 90mg. [id number] VITAMIN E 180MG (400UNIT) CAP SIG: TAKE ONE CAPSULE BY MOUTH EVERY DAY If you have any further questions or problems, whit garcia contact our nursing staff or provider at the following number: . Sincerely, Giselle Martinez MD Primary Care Staff Physician Dec 15, 2021 10:38 INTERNAL MEDICINE OUTPATIENT NOTE: MARV GUIDO [facility] LOCAL TITLE: MEDICINE CLINIC NURSING NOTE OM G STANDARD TITLE: INTERNAL MEDICINE OUTPATIENT NOT E DATE OF NOTE: DEC 15, 2021@10:38 ENTRY DATE: DEC 15, 2021@10:38:07 AUTHOR: SANYA CASE EXP COSIGNER: URGENCY: STATUS: COMPLETED TYPE OF VISIT: Appointment Check In Type of appointment: In-person appointment REASON FOR VISIT: F/u appointment ALLERGIES: RIVAROXABAN (Jul 25, 2017) VITAL SIGNS: Blood Pressure: 171/90 (12/15/2021 10:36)re check 164/91 denies chest pain Pulse: 66 (12/15/2021 10:36) Respiration: 18 (12/15/2021 10:36) Temperature: 98.1 F [36.7 C] (12/15/2021 10:36) Weight: 245 lb [111.13 kg] (12/15/2021 10:36) Height: 73 in [185.4 cm] (07/29/2021 13:02) BMI: 32.4 O2 Sat: 96% (12/15/2021 10:36) Pain: 0 (12/15/2021 10:36) PAIN SCREEN: Patient yes having significant pain that they w jan to discuss with their provider today. PTSD Screening: PC-PTSD-5 A PTSD screening test (PC-PTSD-5) was negative (score=0). Have you ever had any experience that was so fr ightening, horrible or upsetting that, IN THE PAST MONTH, you: Have you ever experienced this kind of event? NO 1. Had nightmares about the event(s) or thought about the event(s) when you did not want to? Response not required due to responses to other questions. 2. Tried hard not to think about the event(s) o r went out of your way to avoid situations that reminded you of the ev ent(s)? Response not required due to responses to other questions. 3. Been constantly on guard, watchful, or easil y startled? Response not required due to responses to other questions. 4. [place] numb or detached from people, activitie s, or your surroundings? Response not required due to responses to other questions. 5. [place] guilty or unable to stop blaming yourse lf or others for the event(s) or any problems the event(s) may have caused? Response not required due to responses to other questions. Offer flu shot said had one at work /es/ ANDIRINA CASE LPN LPN Signed: 12/15/2021 10:41 Dec 15, 2021 08:12 INTERNAL MEDICINE NOTE: [facility]LE [facility] AM LOCAL TITLE: MEDICINE CLINIC NOTE STUART STANDARD TITLE: INTERNAL MEDICINE NOTE DATE OF NOTE: DEC 15, 2021@08:12 ENTRY DATE: DEC 15, 2021@08:12:18 AUTHOR: GISELLE MARTINEZ EXP COSIGNER: URGENCY: STATUS: COMPLETED ############################################### # F2F Clinic Visit # # Primary Care PACT [place] 4E # ############################################### Name: JESSICA GRAFF XAVIERMANDEEPKINGSTON Age: [address] [place] [address] Occupation: RETIRED Service Branch: [employer] Total time spent on patient care including chart /diagnostic/test review, patient interview/examination, ordering medicati ons/tests, interpreting results,and counseling/documentation was 60 marilu dean. Combined: HPI, ASSESSMENT & PLAN YUNIOR 12/15/21 10:00 F2F Visit F/U: see current recall or in 1 year and PRN for new /changes in symptoms Special/follow up notes: none foot - did several skin grafts and not working. local podiatry says no add'l intervention. Wound care company came didn't get approval yet. Still has wound on the feet. helps ankles to walk. shoes don't fit based claudio amt of swelling. actively draining and need 3 meplix a day. L foot- waiting for surgery. no ulcer or drainag e. # tremor . refer for adaptive equip for eating # R diabetic foot ulcer, non-healing. pt had sev eral procedures by nonVA podiatry and [facility] # clean base. no purulence but did have odor # eval for osteomyelitis - inflammatory markers and xray - swab obtained for reference - wound covered w meplix ; refer to podiatry and wound # CAD h/o STEMI; CABG x 4 (emergent) 05/06; EF 55 % 12/06 # HTN uncontrolled SBP 140-160s recently 2/2 giuseppe n[; prev hypotensive on ACEI # HFpEF TTE repeat 12/2020 # --> pending f/u w cardiology in late 2021 f or repeat TTE Exam: sharp systolic murmur at base w muted s2 - c/w atorvastatin, aspirin. not on BB due to lo w HR - on stable Bumex 1mg BID + KCL 20 - losartan restarted and doing ok # Chronic back pain w sciatica stable L spine xray with degenerative changes consider MRI in the future if pain is ucnontrolled. 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 prev plan to reduce oxy to 10mg bid post op. Denies any falls, drowsiness, confusion, acciden ts due to medication And aware of addictive /dependency potential ---- Unmodified Notes from Previous A/P for cont inuity ---- # DM A1c controlled at 7 on insulin, glipizide, metfo rmin, jardiance - report no low sugar - replaced w restore dressing # RLS - prev on requip 2mg q 6h; due to pharmacy restriction for RLS, can only do 2mg BID - will add 1 dose from nonVA pharmacy. p aper rx given. pharmacy PA denied 2mg TID # polypharmacy - spent considerable time at visi t cleaning up med list # h/o blood in phlegm. was seen in ED yesterday. negative for PE and has evidence of [...] - b12, vit D # h/o PE 2018 # h/o possible GCA previously on steroids and MT X, # RHCM Vax - see immunization history SHx - neg smoking FHx - n/a Preventive screening - FIT+ 2019 -> referred and pt didn't respond to scheduling, FIT - 2020 Adv directive - per postings Stable conditions TINNITUS 10% SC IMPAIRED HEARING 10% SC BURSITIS 10% SC LIMITED MOTION OF ANKLE 20% SC LUMBOSACRAL OR CERVICAL STRAIN 30% SC HYPERTENSIVE VASCULAR DISEASE 10% SC LUMBOSACRAL OR CERVICAL STRAIN 40% SC LOSS OF MOTION RING OR LITTLE FINGER 0% SC LIMITED FLEXION OF FOREARM 10% SC Reviewed available labs/scans today as appropria te. SURGERIES - NONE FOUND RTC - routine f/u appt in 6-12 m (1yr for co-mge d pts). Instructed patient to follow up sooner than discussed / per recall if any new concerns or worsening of symptoms. Nursing notes reviewed. CC in nursing note/HPI. Updated Problem List as needed re past med/surg/fam/social history. Relevant ROS: See HPI. Rest of ROS neg below Patient reports no fever/chills no chest pain/shortness of breath no blood in urine / stool no abdominal pain Med/Surg/Fam/Soc Hx: Reviewed and updated as nee ded in problem list VS & EXAM Temp: 98.2 F [36.8 C] (09/04/2021 19:34) Resp: 1 6 (09/04/2021 19:34) Pulse: 73 (09/04/2021 19:34) Pain: 8 (09/04/2021 19:34) Osat 96% (09/04/2021 19:34) Measurement DT BP 09/04/2021 19:34 161/75 08/28/2021 13:02 145/85 07/29/2021 13:02 127/80 Measurement DT WEIGHT LB(KG)[BMI] 07/29/2021 13:02 230(104.33)[30*] 04/25/2021 11:00 Unavailable 03/28/2021 14:03 235.2(106.68)[32*] Appearance: awake, alert, NAD; well appearing HEENT: NC/AT, normal conj, no external abnormali ties Neck: supple, no deformities Card: Reg rate, 2/3 Systolic murmur Resp: good air mvmt, clear to auscultation, no r ales/rhonchi/wheezes R foot with 1.5inch clean plantar ulcer Labs/tests: see below. See A/P for relevant disc ussion. See CPRS problem list for any relevant external results MEDICATIONS Active and Recently Outpatient Medicatio ns (including Supplies): Active Outpatient Medications Status 1) ACCU-CHEK [...] OF SHORTNESS OF BREATH *SHAKE WELL* 4) APPLICATOR,COTTON TIP STERILE 1 APPLICATOR ACTIVE DIRECTED 5) ARTIFICIAL SALIVA (BIOTENE MOUTH) SPRAY SPRAY [...] EVERY DAY FOR VITAMIN D SUPPLEMENTATIO N (REPLACES ERGOCALCIFEROL) 12) CITALOPRAM HYDROBROMIDE 20MG TAB TAKE ONE TA BLET BY ACTIVE MOUTH EVERY DAY FOR DEPRESSION 13) CLEANSER,WOUND SKINTEGRITY TOP SPRAY SPRAY T OPICALLY ACTIVE DIRECTED FOR WOUND CARE 14) CLOTRIMAZOLE 1% TOP CREAM APPLY TO AFFECTED AREA ACTIVE TOPICALLY TWICE A DAY NEEDED EXTERNAL USE ONLY FOR FUNGAL INFECTIONS 15) CODEINE 10/GG 100MG/5ML (ALC-F/SF) LIQ TAKE 5 ML TO ACTIVE 10 ML BY MOUTH THREE TIMES A DAY NEEDED FOR COUGH 16) CYANOCOBALAMIN 1000MCG TAB TAKE TWO TABLETS BY MOUTH ACTIVE EVERY WEEK FOR VITAMIN B12 SUPPLEMENT 17) DICLOFENAC NA 1% TOP GEL APPLY 2 GRAMS TOPIC ALLY FOUR ACTIVE TIMES A DAY NEEDED TO AFFECTED AREA FOR PAIN . *USE DOSE CARD IN BOX TO MEASURE DOSE. MAX 32 G CESAR PER DAY. 18) DOCUSATE NA 50MG/SENNOSIDES 8.6MG TAB TAKE 1 TABLET ACTIVE BY MOUTH TWICE A DAY NEEDED FOR CONSTIPATION STOP IF DIARRHEA OCCURS 19) DRESS,MEPILEX BORDER FLEX 4X4IN #[id number] APPL Y 1 ACTIVE DRESSING DIRECTED 20) DRESSING,RESTORE TAPER 4X4IN H#[id number] APPLY ACTIVE DRESSING(S) TOPICALLY DIRECTED FOR DIABETIC ULCER 21) EMPAGLIFLOZIN 25MG TAB TAKE ONE-HALF TABLET BY MOUTH ACTIVE (S) EVERY MORNING FOR DIABETES 22) FLUTICASONE PROP 50MCG 120D NASAL INHL [...] HARD-PLASTIC CONTAINER WITH A SCREW-ON LIDCONTACT GARBAGE [facility] FOR PROPER DISPOSAL 29) LIDOCAINE 5% OINT APPLY MODERATE AMOUNT TOPI MASOOD ACTIVE FOUR TIMES A DAY NEEDED FOR PAIN 30) LIDOCAINE 5% PATCH APPLY 1 PATCH TOPICALLY E VERY DAY ACTIVE NEEDED FOR PAIN. WEAR FOR ONLY 12 HOURS THEN REMOVE FOR 12 HOURS. 31) LOSARTAN 50MG TAB TAKE ONE-HALF TABLET BY MO UTH EVERY ACTIVE DAY FOR HIGH BLOOD PRESSURE 32) MICONAZOLE NITRATE 2% TOP PWDR USE TO AFFECT ED AREA ACTIVE TOPICALLY TWICE A DAY FOR FUNGAL INFECTION/GROI N RASH 33) MULTIVIT W/MINERALS, CAP/TAB TAKE 1 TABLET BY ACTIVE MOUTH EVERY DAY FOR FOLIC ACID AND IRON DEFICIE NCY (REPLACES FERROUS SULFATE) 34) NALOXONE HCL 4MG/SPRAY SOLN NASAL SPRAY SPRA Y 1 DOSE ACTIVE IN ONE NOSTRIL DIRECTED FOR UNRESPONSIVENESS (FOR NARCOTIC OVERDOSE) THEN CALL 911 - IF NO CHANGE IN 2-3 MINUTES, GIVE SECOND DOSE IN OPPO SITE NOSTRIL 35) NEEDLE,PEN 31G,8MM USE 1 NEEDLE UNDER THE SK IN ACTIVE DIRECTED *DISPOSE OF IN A HARD-PLASTIC CONTAINE R WITH A SCREW-ON LID CONTACT GARBAGE HAULER FO R PROPER DISPOSAL 36) OXYCODONE 5MG/ACETAMINOPHEN 325MG TAB TAKE 2 TABLETS ACTIVE BY MOUTH THREE TIMES A DAY FOR SEVERE FOOT PAIN 37) POTASSIUM CL 20MEQ SA TAB (DISPERSIBLE) TAKE ONE ACTIVE TABLET BY MOUTH EVERY DAY 38) PREGABALIN 150MG ORAL CAP TAKE ONE CAPSULE B Y MOUTH ACTIVE TWICE A DAY FOR NERVE PAIN (REPLACES PREGABALIN 100MG) 39) PROPRANOLOL HCL 80MG TAB TAKE ONE TABLET BY MOUTH ACTIVE TWICE A DAY FOR HAND TREMOR 40) ROPINIROLE HCL 2MG SA TAB TAKE TWO TABLETS B Y MOUTH ACTIVE (S) EVERY DAY 41) SEMAGLUTIDE 1MG/0.75ML INJ PEN 3ML INJECT 1M G UNDER ACTIVE THE SKIN EVERY WEEK 42) TADALAFIL 20MG TAB TAKE ONE TABLET BY MOUTH AT ACTIVE BEDTIME TAKE AT LEAST 30 MINUTES BEFORE ANTICIP ATED SEXUAL ACTIVITY 43) TAPE,MEDIPORE H SOFT 4IN X 10YD 3M#2864 CUT AND APPLY ACTIVE TAPE TOPICALLY DIRECTED 44) TAPE,MICROPORE 1IN 3M #1530-1 CUT AND APPLY TAPE ACTIVE TOPICALLY DIRECTED 45) TRAZODONE HCL 50MG TAB TAKE ONE TABLET BY MO UTH AT ACTIVE BEDTIME NEEDED FOR SLEEP 46) TRIAMCINOLONE ACETONIDE 0.1% CREAM APPLY THI N LAYER ACTIVE TOPICALLY TWICE A DAY FOR RASH/ITCHINGAVOID FACE,GROIN & ARMPITS *FOR EXTERNAL USE ONLY 47) VANICREAM TOP CREAM APPLY THIN LAYER TOPICAL LY EVERY ACTIVE DAY FOR DRY SKIN, IDEALLY WITHIN 3 MINUTES AFTE R BATH OR SHOWER. Inactive Outpatient Medications Status 1) ACCU-CHEK GUIDE (GLUCOSE) TEST STRIP USE [address] RIP DISCONTINUED TOPICALLY TWICE A DAY TO CHECK BLOOD SUGAR--USE WITHIN 3 MINUTES OF REMOVING FROM CONTAINER T EST AT DIFFERENT TIMES OF THE DAY OR DIRECTED 2) ACETAMINOPHEN 500MG TAB TAKE ONE TABLET BY MO UTH DISCONTINUED EVERY 6 HOURS NEEDED FOR PAIN*NOT TO EXCEED 4000MG IN 24 HOURS FROM ALL SOURCES* 3) ALBUTEROL 90MCG (CFC-F) 200D ORAL INHL INHALE 2 PUFFS DISCONTINUED BY INHALATION FOUR TIMES A DAY NEEDED FOR IMMEDIATE RELIEF OF SHORTNESS OF BREATH *SHAKE WELL* 4) ALPROSTADIL 500MCG URETHRAL SUPP INSERT 1 SUP POSITORY DISCONTINUED INTRAURETHRAL NEEDED FOR ERECTILE DYSFUNCTIO N- MAX USE OF 3 TIMES PER WEEK WITH AT LEAST 24 HO URS BETWEEN EACH USE. 5) AMOXICILLIN 875/CLAV K 125MG TAB TAKE 1 TABLE T BY MOUTH TWICE A DAY 6) BANDAGE,ELASTIC 1IN X 5YD COBAN LF USE 1 BAND AGE DISCONTINUED TOPICALLY DIRECTED FOR FOOT CARE 7) BENZONATATE 100MG CAP TAKE ONE CAPSULE BY JEROD THREE TIMES A DAY NEEDED FOR COUGH 8) CHLORHEXIDINE GLUCONATE 0.12% MOUTHWASH SWISH AND SPIT 1 TABLESPOON ( 1/2 OUNCE = 15 ML) BY MOUTH TWICE A DAY AFTER BREAKFAST AND BEFORE BEDTIME. FOR 7 DAYS 9) CHOLECALCIF 25MCG (D3-1,000UNIT) TAB TAKE ONE TABLET DISCONTINUED BY MOUTH EVERY DAY FOR VITAMIN D SUPPLEMENTATIO N 10) CITALOPRAM HYDROBROMIDE 20MG TAB TAKE ONE TA BLET BY DISCONTINUED MOUTH EVERY DAY FOR DEPRESSION 11) CODEINE 10/GG 100MG/5ML (ALC-F/SF) LIQ TAKE 5 ML TO DISCONTINUED 10 ML BY MOUTH THREE TIMES A DAY NEEDED FOR COUGH 12) CYANOCOBALAMIN 1000MCG TAB TAKE TWO TABLETS BY MOUTH DISCONTINUED EVERY WEEK FOR VITAMIN B12 SUPPLEMENT 13) DICLOFENAC NA 1% TOP GEL APPLY 4 GRAMS TO KN EE FOUR DISCONTINUED TIMES A DAY NEEDED FOR PAIN -USE DOSE CARD I N BOX TO MEASURE DOSE -MAXIMUM OF 32 GM PER DAY 14) DOCUSATE NA 100MG CAP TAKE ONE CAPSULE BY MO UTH TWICE DISCONTINUED A DAY *STOP IF HAVING DIARRHEA* 15) DRESS,MEPILEX BORDER FLEX 4X4IN #[id number] APPL Y 1 DISCONTINUED DRESSING DIRECTED 16) DRESS,MEPILEX BORDER FLEX 4X4IN #[id number] APPL Y 1 DISCONTINUED DRESSING TOPICALLY DIRECTED USE ON RIGHT AND LEFT FOOT ULCER. CHANGE EVERY OTHER DAY. 17) DRESS,MEPILEX BORDER FLEX 4X4IN #[id number] APPL Y 1 DISCONTINUED DRESSING TOPICALLY DIRECTED USE ON RIGHT AND (EDIT) LEFT FOOT ULCER. CHANGE EVERY OTHER DAY. 18) DRESS,MEPILEX BORDER FLEX 4X4IN #[id number] APPL Y DISCONTINUED DRESSING DIRECTED (EDIT) 19) DRESS,MEPILEX BORDER FLEX 4X4IN #110951 APPL Y 1 DISCONTINUED DRESSING DRESSING,MEPILEX BORDER 4X4IN #[id number] (EDIT) TOPICALLY DIRECTED 20) DRESS,MEPILEX BORDER FLEX 4X4IN #033630 APPL Y DISCONTINUED DRESSING DIRECTED 21) DRESS,MEPILEX BORDER FLEX 4X4IN #912809 APPL Y 1 DISCONTINUED DRESSING DRESSING,MEPILEX BORDER 4X4IN #[id number] TOPICALLY DIRECTED 22) DRESS,MEPILEX BORDER FLEX 4X4IN #[id number] APPL Y 1 DISCONTINUED DRESSING TOPICALLY DIRECTED 23) DRESS,MEPILEX BORDER FLEX 4X4IN #[id number] APPL Y DISCONTINUED DRESSING DRESSING,MEPILEX BORDER 4X4IN #[id number] (EDIT) TOPICALLY DIRECTED 24) DRESS,MEPILEX BORDER FLEX 4X4IN #[id number] APPL Y DISCONTINUED DRESSING DRESSING,MEPILEX BORDER 4X4IN #[id number] TOPICALLY DIRECTED 25) EMPAGLIFLOZIN 25MG TAB TAKE ONE-HALF TABLET BY MOUTH DISCONTINUED EVERY MORNING FOR DIABETES 26) ERGOCALCIF 1,250MCG (D2-50,000UNIT) CAP TAKE ONE DISCONTINUED CAPSULE BY MOUTH EVERY MONTH 27) GAUZE PAD 4IN X 4IN 8-PLY NONSTERILE USE GAU ZE SPONGE DISCONTINUED TOPICALLY DIRECTED 28) GLOVE LATEX X-LARGE PWDR-FREE NONSTERILE USE GLOVE(S) DISCONTINUED DIRECTED 29) HYDROCORTISONE 2.5% CREAM APPLY THIN LAVER T O ANKLE DISCONTINUED TOPICALLY THREE TIMES A DAY NEEDED FOR ITCHI NG 30) IBUPROFEN 600MG TAB TAKE ONE TABLET BY MOUTH EVERY DISCONTINUED DAY NEEDED FOR JOINT PAIN TAKE WITH FOOD 31) IBUPROFEN 800MG TAB TAKE ONE TABLET BY MOUTH EVERY 8 HOURS FOR PAIN TAKE WITH FOOD 32) IBUPROFEN 800MG TAB TAKE ONE TABLET BY MOUTH THREE DISCONTINUED TIMES A DAY NEEDED FOR SEVERE ARTHRITIS PAIN *TAKE WITH FOOD 33) INSULIN,GLARGINE 100 UNT/ML 3ML SOLOSTAR INJ ECT 8 DISCONTINUED UNITS UNDER THE SKIN AT BEDTIME FOR DIABETES DISPENSE WITH SOLSTAR PEN 34) LANCET,SOFTCLIX USE 1 LANCET TOPICALLY DI RECTED DISCONTINUED *DISPOSE OF IN A HARD-PLASTIC CONTAINER WITH A SCREW-ON LIDCONTACT GARBAGE HAULER FOR PROPER DISPOSAL 35) LATANOPROST 0.005% OPH SOLN INSTILL 1 DROP I N LEFT DISCONTINUED EYE AT BEDTIME FOR GLAUCOMA REFRIGERATE BOTTLE UNTIL OPENED. 36) LEVOFLOXACIN 500MG TAB TAKE ONE TABLET BY MO UTH EVERY DAY 37) LEVOFLOXACIN 500MG TAB TAKE ONE TABLET BY MO UTH ONCE DISCONTINUED EVERY DAY FOR 7 DAYS 38) LOSARTAN 50MG TAB TAKE ONE-HALF TABLET BY MO UTH EVERY DISCONTINUED DAY FOR HIGH BLOOD PRESSURE 39) MULTIVIT W/MINERALS, CAP/TAB TAKE 1 TABLET BY DISCONTINUED MOUTH EVERY DAY FOR FOLIC ACID AND IRON DEFICIE NCY (REPLACES FERROUS SULFATE) 40) NEEDLE,PEN 31G,8MM USE 1 NEEDLE, NEEDLE, PEN 31G 8MM DISCONTINUED TOPICALLY DIRECTED *DISPOSE OF IN A HARD-ZARIA STIC CONTAINER WITH A SCREW-ON LID CONTACT GARBAGE HAULER FOR PROPER DISPOSAL TO USE WITH GLARGI NE 41) OXYCODONE 5MG/ACETAMINOPHEN 325MG TAB TAKE 2 TABLETS DISCONTINUED BY MOUTH THREE TIMES A DAY FOR SEVERE FOOT PAIN 42) OXYCODONE 5MG/ACETAMINOPHEN 325MG TAB TAKE 2 TABLETS BY MOUTH THREE TIMES A DAY FOR SEVERE FOOT PAIN 43) PAD,ABDOMINAL 7.5 X 8 STERILE USE PAD TOPICA LLY DISCONTINUED DIRECTED 44) PREDNISOLONE ACETATE 1% OPH SUSP INSTILL 1 D ROP IN DISCONTINUED OPERATIVE EYE FOUR TIMES A DAY SHAKE WELL FOR POST-OP INFLAMMATION 45) ROPINIROLE HCL 2MG SA TAB TAKE TWO TABLETS B Y MOUTH DISCONTINUED EVERY DAY 46) SODIUM CHLORIDE 5% OPH OINT APPLY THIN STRIP TO BOTH DISCONTINUED EYES AT BEDTIME 47) SODIUM CHLORIDE 5% OPH SOLN INSTILL 1 DROP I N BOTH DISCONTINUED EYES FOUR TIMES A DAY 48) SODIUM FLUORIDE 1.1% TOOTHPASTE BRUSH SMALL AMOUNT DISCONTINUED MOUTH EVERY MORNING AND AT BEDTIME ON TOOTHBRUS H, BRUSH FOR 2 MINUTES. 49) TAPE,MEDIPORE H SOFT 4IN X 10YD #1824 CUT AND APPLY DISCONTINUED TAPE DIRECTED 50) TRIAMCINOLONE ACETONIDE 0.1% OINT APPLY MODE RATE DISCONTINUED AMOUNT TWICE A DAY NEEDED FOR ITCHING AVOI D FACE,GROIN & ARMPITS *FOR EXTERNAL USE ONLY 51) VASHE WOUND THERAPY TOP SOLN SATURATE GAUZE WITH DISCONTINUED SOLUTION AND USE DIRECTED 52) VITAMIN E 180MG (400UNIT) CAP TAKE ONE CAPSU LE BY DISCONTINUED MOUTH EVERY DAY 99 Total Medications PROBLEM LIST (see CPRS for [...] any additional externa l results WBC 6.29 (07/29/21) PLT 286 (07/29/21) HGB 13.3 L BLOOD (07/29/21 12:30) 14.8 BLOOD (04/28/21 13:17) 13.4 L BLOOD (03/01/21 09:31) IRON 36 L (12/15/20) TRANSFERRIN 237 (12/15/20) TIBC,CALCULATED 296 (12/15/20) IRON SATURATION 12 L (12/15/20) Na: SODIUM 141 (07/29/21) K: POTASSIUM 3.9 (07/29/21) Cl: CHLORIDE 105 (07/29/21) CO2: CO2 28 (07/29/21) BUN: UREA NITROGEN 12 (07/29/21) Creatinine: CREATININE 0.7 (07/29/21) Glucose: GLUCOSE 170 H (07/29/21) CREATININE 0.7 PLASMA (07/29/21 12:30) 0.7 PLASMA (04/28/21 13:17) 0.6 L PLASMA (12/15/20 12:44) SGOT 13 (07/29/21) SGPT 15 (07/29/21) BILIRUBIN, TOTAL 0.8 (04/28/21) Collection DT Specimen Test Name Result Units Re f Range 04/28/2021 13:17 PLASMA .INR 1.1 0.8 - 1.1 06/15/2020 07:30 PLASMA .INR 1.1 12/22/2019 05:30 PLASMA .INR 1.2 12/21/2019 14:35 PLASMA .INR 1.1 12/20/2019 22:20 PLASMA .INR 1.2 11/14/2019 18:20 PLASMA .INR 1.2 09/27/2019 00:15 PLASMA .INR 1.1 09/09/2018 05:30 PLASMA .INR 1.13 09/02/2018 11:21 PLASMA .INR 1.22 09/01/2018 01:25 PLASMA .INR 1.13 08/26/2018 07:48 PLASMA .INR 1.13 05/27/2018 11:15 PLASMA .INR 1.16 01/20/2018 22:47 PLASMA .INR 1.08 10/26/2017 12:15 PLASMA .INR 1.03 09/07/2017 13:31 PLASMA .INR 1.01 08/28/2017 15:48 PLASMA .INR 1.08 08/15/2017 12:49 PLASMA .INR 1.09 08/10/2017 11:13 PLASMA .INR 1.29 08/06/2017 08:16 PLASMA .INR 1.12 07/31/2017 11:29 PLASMA .INR 1.10 07/24/2017 11:59 PLASMA .INR 2.34 07/19/2017 12:55 PLASMA .INR 1.92 07/10/2017 09:24 PLASMA .INR 1.39 07/03/2017 14:17 PLASMA .INR 1.08 04/26/2017 22:05 PLASMA .INR 1.14 04/25/2017 21:52 PLASMA .INR 1.21 04/25/2017 17:10 PLASMA .INR 1.11 01/02/2017 05:30 PLASMA .INR 1.08 01/01/2017 10:07 PLASMA .INR 1.04 CHOLESTEROL____ TRIGLYCERIDE____ HDL____ LDL CALCULATION____ SLT - Lab Tests Selected Collection DT Specimen Test Name Result Units Re f Range 08/12/2018 14:21 PLASMA LDL CALCULATION 69 mg/dL Ref: <= 99 MEASURED LDL____ No data available Collection DT Specimen Test Name Result Units Re f Range 04/28/2021 13:17 PLASMA TSH 0.73 uIU/mL 0.35 - 4.94 10/13/2018 17:00 PLASMA TSH 1.19 uIU/mL 0.35 - 4.94 Collection DT Spec HGBA1C 07/29/2021 12:30 BLOOD 7.0 H 04/28/2021 13:17 BLOOD 8.0 H 03/01/2021 09:31 BLOOD 8.0 H Patient was informed of available lab, imaging, [...] no further questions. /vinicio/ Giselle Martinez MD Primary Care Staff Physician Signed: 12/16/2021 20:38
--- OUTSIDE RECORDS SUMMARY | 2021-12-23 20:08 | XMS_ITS | Encounter Summary ---
:1945 Author Organization [facility] Address [address] [place] [id number] Support Name Relationship Address Phone FRANCES GANDARA Unavailable [address] [place] [address] FRANCES GANDARA Unavailable [address] [place] [address] FRANCES GANDARA Unavailable [address] [place] [address] FRANCES GANDARA Unavailable [address] [place] [address] Insurance Providers: All historical and current Section [...] MEDICARE MEDICARE PART Apr 19, PART A [id number] Whit MOJICA (WNR) (M) A 2007 [id number] [phone] JESSICA MEDICARE MEDICARE PART Apr 19, PART A [id number] Whit MOJICA (WNR) (M) A 2007 50A [phone] JESSICA Selected Encounter This section includes the information on record at [place] for the Encounter. Date/Time Encounter Type Encounter Reason Provider Source Description Dec 15, 2021 03:00 Outpatient [facility] BYRON RAMIREZ PM Encounter CONSULT DEANDRE IQBAL Encounter Template Text not used by [place] [...] 20 appointments. The data comes from all [facility]. Appointment Date/Time Appointment Type Appointment Facili ty Name Dec 20, 2021 02:00 PM AMBULATORY - NONE [facility] Dec 22, 2021 03:30 AM AMBULATORY - NONE [facility] Jan 02, 2022 05:10 PM AMBULATORY - [facility]AB [facility] Jan 03, 2022 05:00 PM AMBULATORY - [facility] Jan 05, 2022 04:00 PM AMBULATORY - NONE [facility] Jan 10, 2022 10:00 AM AMBULATORY - SURGERY [facility] Jan 10, 2022 02:30 PM AMBULATORY - MEDICINE [facility] Jan 10, 2022 03:30 PM AMBULATORY - MEDICINE [facility] Feb 01, 2022 03:30 PM AMBULATORY - SUR[facility]ERY [facility] Feb 09, 2022 02:40 PM AMBULATORY - SUR[facility]ERY [facility] Feb 14, 2022 10:00 AM AMBULATORY - SURGERY [facility] Feb 23, 2022 08:00 AM AMBULATORY - NONE [facility] Mar 27, 2022 02:30 PM AMBULATORY - SURGERY [facility] Active, Pending, and Scheduled Orders This section includes a listing of several types of active, pending, and scheduled orders, including clinic medications orders, diagnostic test orders, procedure orders and consult orders; where the start date of the order is 45 days before the date of the Encounter or 45 days after the date of the Encounter. The data comes from all [facility]. Test Date/Time Test Type Test Details Facility Name Nov 26, 2021 12:00 Laboratory - HEMOGLOBIN A1C BLOOD SP [facility] AM Chemistry Order ONCE Dec 13, 2021 11:50 Consult Order COMMUNITY CARE-DENTAL GEN [facility] AM SERV Cons Station Superintendent's Choice Dec 15, 2021 12:00 Laboratory - COMPREHENSIVE METABOLIC [facility] AM Chemistry Order PANEL+MG PLASMA SP Dec 15, 2021 12:00 Laboratory - HEMOGLOBIN A1C BLOOD SP [facility] AM Chemistry Order Dec 15, 2021 12:00 Laboratory - C-REACTIVE PROTEIN PLASMA [facility] AM Chemistry Order SP Dec 15, 2021 12:00 Laboratory - SED RATE BLOOD SP [facility] AM Chemistry Order Dec 15, 2021 12:00 Laboratory - TSH W[facility] Chemistry Order PLASMA SP Dec 15, 2021 12:00 Laboratory - CBC & DIFF BLOOD SP [facility] AM Chemistry Order Dec 15, 2021 11:15 Consult Order WOUND INSIDE SALES PERSON SERVICE OUTPT [facility] AM Cons Station Superintendent's Choice Dec 15, 2021 11:15 Consult Order COMMUNITY CARE-WOUND CARE [place] [facility] AM PC Cons Station Superintendent's Choice Dec 15, 2021 11:36 Consult Order UROLOGY OUTPT Cons KERRYAPOLI S [facility] AM Station Superintendent's Choice Dec 15, 2021 11:51 Consult Order GASTROENTEROLOGY OUTPT [place] POLIS [facility] AM Cons Station Superintendent's Choice Dec 15, 2021 12:01 Consult Order NEUROLOGY OUTPT Cons DELANEY LIS [facility] PM Station Superintendent's Choice Dec 16, 2021 12:00 Imaging - Magnetic MRI FOOT RIGHT (P) [facility] AM Resonance Imaging (MRI) Order Dec 16, 2021 08:41 Consult Order OT OCCUPATIONAL THERAPY [facility] PM OUTPT PACT Cons Station Superintendent's Choice Vital Signs: All taken on the encounter date This section contains inpatient and outpatient Vital Signs collected on the date of the Encounter. Date/Time Temperature Pulse Blood Respiratory SP02 Pain Height Weight Joseph dy Source Pressure Rate Mass Index Dec 15, 164/91 [facility] 2021 10:42 mm[Hg] [facility] Dec 15, 98.1 F 66 171/90 18 /min 96 % 0 245 lb 32 [facility] 2021 10:36 /min mm[Hg] [facility] Social History: Smoking Status (Most current) and Tobacco Use (All prior to encounter date) This section includes the most current, and the historical, smoking and tobacco-related health factors from the [place] facility where the Encounter took place.Current Smoking Status This section includes the most current smoking, or tobacco-related health factor, from the [place] facility where the Encounter took place. Date/Time Current Smoking Status [facility] Facility Apr 25, 2021 11:00 AM VA-TOBACCO NEVER USED [facility] Tobacco Use History This section includes a history of the smoking, or tobacco- related health factors, that were collected on or before the date of the Encounter. The data comes from the [place] facility where the Encounter took place. Date/Time Smoking Status/Tobacco Use Comment Facil ity July 09, 2020 02:00 PM VA-TOBACCO FORMER USER [facility] July 09, 2020 02:00 PM VA-TOBACCO QUIT 15 YRS OR MORE [facility] Apr 17, 2019 02:39 PM INPT NO TOBACCO USE IN LAST 30 DAYS [facility] Feb 04, 2019 10:37 AM VA-TOBACCO NEVER USED [place] [facility] Oct 15, 2018 02:43 PM INPT NO [...] 2018 03:28 PM VA-TOBACCO FORMER USER [facility] Jan 30, 2018 03:28 [...] May 29, 2017 CLINICAL WARNING CORNELIO FREITAS [facility] May 16, 2017 ADVANCE DIRECTIVE SERENITY BUENROSTRO [facility] May 16, 2017 ADVANCE DIRECTIVE DISCUSSION [facility]O [place] [facility] May 04, 2017 CLINICAL WARNING MAGO DIAMOND [facility] May 04, 2017 CLINICAL WARNING GAEL ROSARIO [facility] Apr 26, 2017 CLINICAL WARNING JENNIFER DE LEON [facility] Jan 01, 2017 CLINICAL WARNING AYDE WELLS [facility] Jun 09, 2004 ADVANCE DIRECTIVE DARYL VILLARREAL [facility] Jun 07, 2004 ADVANCE DIRECTIVE SHERYL HOLLOWAY [facility] Radiology Reports: +/- 30 days of [...] RIGHT 3 VIEWS OR MORE: ROMINA WASSERMAN [facility] PM JESSICA MOJICA [phone] -DEC 03 194 7 M Exm Date: DEC 15, 2021@12:22 Req Phys: CARIDAD DENNIS Pat Loc: [facility] PACT SAPPHIRE 4E (Req'g Lo Img Loc: MAIN X-RAY Service: Unknown (Case [id number] COMPLETE) FOOT RIGHT 3 VIEWS OR MORE (RAD Detailed) CPT:02375 Proc Modifiers : RIGHT Reason for Study: [...] 15, 2021 Date Verified: DEC 15, 2021 Central Office Mechanic E-Sig:/ES/ROMINA WASSERMAN MD Report: 3 views right [...] Primary Interpreting Staff: ROMINA WASSERMAN MD, RADIOLOGIST (Central Office Mechanic) /[facility] Pathology Reports: +/- 30 days of the [...] comes from all [place] treatment facilities. Date/Time Pathology Report Provider Source Dec 15, 2021 01:17 PM LR MICROBIOLOGY REPORT: TRISH PAN [facility] Reporting Lab: [facility] [[id number]# [id number]] [place] [address] Accession [UID]: [id number] [[id number]] Receiv ed: Dec 15, 2021@13:17 Collection sample: WOUND Collection date: Nov 13:17 Provider: CARIDAD DENNIS Comment on specimen: R. DIABETIC FOOT ULCER, SWA B RECEIVED Test(s) ordered: GRAM STAIN............ ........ completed: Dec 15, 2021 14:27 CULTURE & SUSCEPTIBILITY...... completed: Nov 212021 * BACTERIOLOGY FINAL REPORT => Dec 18, 2021 11:5 7 TECH CODE: [id number] GRAM STAIN: DIRECT SMEAR of specimen before [...] --=--=--=--=--=--=--=--=--=--=--=--=-- Performing Laboratory: Bacteriology Report Performed By: [facility] [CLIA# [id number]] [place] [address] Encounter Notes: All associated encounter notes This section contains the clinical notes associated to the Encounter. Date/Time Encounter Note(s) Provider Source Dec 15, 2021 03:00 NONVA NOTE: CHAD RAMIREZ [facility] PM LOCAL TITLE: COMMUNITY CARE-CARE COORDINATION P ADILENE NOTE NA G STANDARD TITLE: NONVA NOTE DATE OF NOTE: DEC 15, 2021@15:00 ENTRY DATE: DEC 15, 2021@15:00:15 AUTHOR: DULCE RAMIREZ EXP COSIGNER: URGENCY: STATUS: COMPLETED Community Care Consult: COMMUNITY CARE-WOUND CAR E PC Consult No: [id number] Chief Complaint: wound care Level of Care Coordination Complex/Chronic Care Coordination was determined from: Chart Review Facility Community Care Office Contact Care Coordination Point of Contact: GARLAND Sharpe RN Services: Moderate Care Coordination Services Case Management, if appropriate Direct communications with interdisciplinary te am Plan: consult was processed by GARLAND GRIMM, appt was made for 12/22/21 at [facility] for this care. /vinicio/ KEVIN RAMIREZ RN Community Civil Engineering Teacher Signed: 12/15/2021 15:02
--- OUTSIDE RECORDS SUMMARY | 2021-12-23 20:12 | XMS_ITS | Encounter Summary ---
:1945 Author Organization [place] Address [facility] 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 He does have f/u [...] patient and family. - Emily Shaikh MD [employer] documented in this encounter Nursing Notes Bhupendra [...] Jung COT 2:45 PM March 20, 2017 [employer] documented in this encounter Plan of Treatment Not on filedocumented as of this encounter Visit Diagnoses Diagnosis Giant cell arteritis (H) - Primary Giant cell arteritis documented in this encounter Care Teams Life Insurance Agent Relationship Specialty Start Date End Date [facility] PCP - General 01/19/17 [place] [address] documented as of this encounter
--- OUTSIDE RECORDS SUMMARY | 2021-12-23 20:12 | XMS_ITS | Encounter Summary ---
:1945 Author Organization [place] Address formerly [facility] 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 right eye CRP INFLAMMATION Routine 02/23/2017 11:43 NAION Results for this AM BLOOD TYPER (non-arteritic procedure are in anterior ischemic the result s optic neuropathy), section. right eye documented in this encounter Results (ABNORMAL) CRP inflammation (02/23/2017 11:43 AM BLOOD [facility]) [facility] Method Time Signature CRP Inflammation 9.2 (H) 0.0 - 8.0 02/23/2017 [facility] O F mg/L 12:06 PM BLOOD TYPER [facility] [place] Specimen Anatomical Collection Method Collection Time Receive d Time (Source) Location / / Volume Laterality Blood specimen 02/23/2017 11:43 8 (specimen) AM BLOOD TYPER 11:44 AM BLOOD TYPER Gautam Landrum MD LAB - BLOOD ORDERABLES Performing Organization Address City/[facility]/ZIP Code Phon e Number [address] [address] [facility] Erythrocyte sedimentation rate auto (02/23/2017 11:43 AM BLOOD TYPER) P athologist Signature Sed Rate 14 0 - 20 mm/h 02/23/2017 [facility] 1:02 PM BLOOD TYPER [facility] Specimen Anatomical Collection Method Collection Time Receive d Time (Source) Location / / Volume Laterality Blood specimen 02/23/2017 11:43 8 (specimen) AM BLOOD TYPER 11:44 AM BLOOD TYPER Gautam Landrum MD LAB - BLOOD ORDERABLES Performing Organization Address City/[facility]/ZIP Code Phon e Number [address] [address] [facility] documented in this encounter Visit Diagnoses Diagnosis 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
--- OUTSIDE RECORDS SUMMARY | 2021-12-23 20:12 | XMS_ITS | Encounter Summary ---
:1945 Author Organization [place] Address [facility] [place] [address] Care Team Providers Name Role Phone [place], [facility] Primary Care Provider [phone] Reason for Visit Reason Comments Pre-Op Exam Encounter Details Date Type Department Care Team Description 02/28/2017 Office Visit [facility] Preoperative 7, Pac Javan Preop general physical Assessment Center exam (Primary Dx) [address] [facility] [address] [place] [address] Anesthesia Record Procedure Summary Procedure [...] Comments Blood Pressure 166/78 02/28/2017 1:48 PM SORTER LUMBER STRAIGHTENER Pulse 75 02/28/2017 1:48 PM SORTER LUMBER STRAIGHTENER Temperature 36.6 ??C (97.8 ??F) 02/28/2017 1:48 PM SORTER LUMBER STRAIGHTENER Respiratory Rate 16 02/28/2017 1:48 PM SORTER LUMBER STRAIGHTENER Oxygen Saturation 96% 02/28/2017 1:48 PM SORTER LUMBER STRAIGHTENER Inhaled Oxygen Concentration - - Weight 109.7 kg (241 lb 14.4 oz) 02/28/2017 1:48 PM SORTER LUMBER STRAIGHTENER Height 185.4 cm (6' 1) 02/28/2017 1:48 PM SORTER LUMBER STRAIGHTENER Body Mass Index 31.91 02/28/2017 1:48 PM SORTER LUMBER STRAIGHTENER documented in this encounter H&P Notes Estela Ruth, MARTIN MANAGER MOTOR - 02/28/2017 1:00 PM CST Images from the original note were not included. Pre-Operative H & P CC: Preoperative exam to assess for increased cardiopulmonary risk while undergoing surgery and anesthesia. Date of Encounter: 02/28/2017 Primary Care Physician: [place], [facility] Corby Mojcia is a 71 year old male who presents for pre-operative H & P in preparation for Right Temporal Artery Biopsy with Dr. Shaikh on 03/02/17 at [facility] [place]. History is obtained from the patient. Evaluation [...] Dr Garduno. MARTIN Adkins Preoperative Assessment Center [facility] ER LUMBER STRAIGHTENER documented in this encounter Plan of Treatment Not on filedocumented as of this encounter Procedures Procedure Name Priority Date/Time Associated Diagnosis Comme nts EKG 12-LEAD Routine 02/28/2017 3:20 PM Preop general Results for this COMPLETE W/READ - SORTER LUMBER STRAIGHTENER physical exam procedure are in CLINICS the results section. EKG CARDIAC - HIM 02/28/2017 12:00 AM SCAN SORTER LUMBER STRAIGHTENER documented in this encounter Results EKG 12-lead complete w/read - Clinics (02/28/2017 3:20 PM SORTER LUMBER STRAIGHTENER) [facility] Method Time Signature Interpretation ECG Click View RADIOLOGY Image link RESULTS to view waveform and result Specimen (Source) Anatomical Collection Method Collection Time Re ceived Time Location / / Volume Laterality 02/28/2017 3:20 PM SORTER LUMBER STRAIGHTENER Estela Ruth APRN MEDICAL TRANSLATOR ECG ORDERABLES Performing Organization Address City/[facility]/ZIP Code Phon e Number RADIOLOGY RESULTS (ABNORMAL) CBC with platelets (02/28/2017 3:10 PM SORTER LUMBER STRAIGHTENER) [facility] Method Time Signature WBC 6.3 4.0 - 11.0 02/28/2017 [facility] 10e9/L 3:44 PM [facility] RBC Count 5.13 4.4 - 5.9 02/28/2017 [facility] 10e12/L 3:44 PM [facility] Hemoglobin 13.9 13.3 - 02/28/2017 [facility] 17.7 g/dL 3:44 PM [facility] Hematocrit 44.2 40.0 - 02/28/2017 [facility] 53.0 % 3:44 PM [facility] MCV 86 78 - 100 02/28/2017 [facility] fl 3:44 PM [facility] MCH 27.1 26.5 - 02/28/2017 [facility] 33.0 pg 3:44 PM [facility] MCHC 31.4 (L) 31.5 - 02/28/2017 [facility] 36.5 g/dL 3:44 PM [facility] RDW 13.9 10.0 - 02/28/2017 [facility] 15.0 % 3:44 PM [facility] Platelet Count 253 150 - 450 02/28/2017 [facility] 10e9/L 3:44 PM [facility] Specimen Anatomical Collection Method Collection Time Receive d Time (Source) Location / / Volume Laterality Blood specimen 02/28/2017 3:10 PM 018 3:13 (specimen) SORTER LUMBER STRAIGHTENER PM SORTER LUMBER STRAIGHTENER Estela Ruth APRN MEDICAL TRANSLATOR LAB - BLOOD ORDERABLES Performing Organization Address City/[facility]/[place] [address] [facility] (ABNORMAL) Basic metabolic panel (02/28/2017 3:10 PM [facility]) [facility] Method Time Signature Sodium 135 133 - 144 02/28/2017 [facility] mmol/L 4:01 PM [facility] Potassium 4.2 3.4 - 5.3 02/28/2017 [facility] mmol/L 4:01 PM [facility] Chloride 99 94 - 109 02/28/2017 [facility] mmol/L 4:01 PM [facility] Carbon Dioxide 32 20 - 32 02/28/2017 [facility] mmol/L 4:01 PM [facility] Anion Gap 5 3 - 14 02/28/2017 [facility] mmol/L 4:01 PM [facility] Glucose 219 (H) 70 - 99 02/28/2017 [facility] mg/dL 4:01 PM [facility] Urea Nitrogen 14 7 - 30 02/28/2017 [facility] mg/dL 4:01 PM [facility] Creatinine 0.56 (L) 0.66 - 02/28/2017 [facility] 1.25 mg/dL 4:01 PM [facility] GFR Estimate >90 >60 02/28/2017 [facility] mL/min/1.7 4:[address] Comment: Non GFR Calc GFR Estimate If >90 >60 mL/min/1.7m2 02/28/2017 4:01 P M [facility] Black [facility] Comment: GFR Calc Calcium 8.8 8.5 - 10.1 mg/dL 02/28/2017 4:01 PM [facility] Specimen Anatomical Collection Method Collection Time Receive d Time (Source) Location / / Volume Laterality Blood specimen 02/28/2017 3:10 PM 018 3:13 (specimen) SORTER LUMBER STRAIGHTENER PM [facility] Estela Ruth APRN MEDICAL TRANSLATOR LAB - BLOOD ORDERABLES Performing Organization Address City/[facility]/[place] [address] [facility] EKG CARDIAC - HIM SCAN (02/28/2017 12:00 AM SORTER LUMBER STRAIGHTENER) Specimen (Source) Anatomical Location Collection Method / Collectio n Time Received Time / Laterality Volume 02/28/2017 Narrative This result has an attachment that is no t available. Provider Scan ECG ORDERABLES documented in this encounter Visit Diagnoses Diagnosis Preop general physical exam - Primary Other specified pre-operative examinatio n documented in this encounter Care Teams Strike Operations Officer Relationship Specialty Start Date End Date [facility] PCP - General 01/19/17 [place] [address] documented as of this encounter
--- OUTSIDE RECORDS SUMMARY | 2021-12-23 20:12 | XMS_ITS | Encounter Summary ---
:1945 Author Organization [place] Address [address] [facility] [place] [address] Care Team Providers Name Role Phone Center, [facility] Primary Care Provider [phone] Reason for Visit Reason Comments New Patient [place] patient referred for doub le vision evaluation d/t optic nerve eversion Encounter Details Date Type Department Care Team Description 02/23/2017 Office Visit [facility] Eye Gautam Landrum (non- arteritic anterior ischemic optic neuropathy), right eye (Primary Dx); Clinic - Gustavo Valencia MD Abducens nerve palsy, left; [place] [id number] [facility] Senile nuclear sclerosis, bilateral Building [address] [address] [address] 9A [phone] [place], [place] (Work) [address] [phone] Social History Tobacco Use Types Packs/Day Years [...] the patient be set-up withrheumatology at the [facility] for corticosteroid management and consideration of concomitant Actemra treatment. Corby Perry is a pleasant 71 year old White male who presents to my neuro- ophthalmology clinic today, referred by Dr Aguirre at the [facility], for evaluation of diplopia. He reports double [...] with his primary care physician at the [facility] to monitor his blood sugars which will surely elevate on corticosteroids. Will also recommend he see rheumatology in the [facility] (or we can arrange at [facility] if [facility] prefers). I spent a total of 60 [...] the patient and family Gautam Landrum MD UDER OPERATOR MULTIPLE documented in this encounter Nursing Notes Sabra [...] A1c was 3 weeks ago at the [facility]. Patient states horizontal diplopia that started on [...] figure what caused the double at the [facility]. -Spinal tab 2x, MRI 3x ( 1 head, 1 full body and dyes). -EKGs 2x Patient states [facility] thought it could have been a stroke but uncertain. Discussion of brain surgery as well. JUANITA Alegria 02/23/2017 8:46 AM UDER OPERATOR MULTIPLE documented in this encounter Plan of Treatment Not on filedocumented as of this encounter Results (ABNORMAL) CRP inflammation (02/23/2017 11:43 AM EXTRUDER OPERATOR MULTIPLE) [facility] Method Time Signature CRP Inflammation 9.2 (H) 0.0 - 8.0 02/23/2017 [facility] F mg/L 12:06 PM EXTRUDER OPERATOR MULTIPLE [facility] [place] Specimen Anatomical Collection Method Collection Time Receive d Time (Source) Location / / Volume Laterality Blood specimen 02/23/2017 11:43 8 (specimen) AM EXTRUDER OPERATOR MULTIPLE 11:44 AM EXTRUDER OPERATOR MULTIPLE Gautam Landrum MD LAB - BLOOD ORDERABLES Performing Organization Address City/State/ZIP Code Phon e Number [facility] [address] [place] [address] [facility] Erythrocyte sedimentation rate auto (02/23/2017 11:43 AM EXTRUDER OPERATOR MULTIPLE) P athologist Signature Sed Rate 14 0 - 20 mm/h 02/23/2017 [facility] 1:02 PM EXTRUDER OPERATOR MULTIPLE [facility] Specimen Anatomical Collection Method Collection Time Receive d Time (Source) Location / / Volume Laterality Blood specimen 02/23/2017 11:43 8 (specimen) AM EXTRUDER OPERATOR MULTIPLE 11:44 AM EXTRUDER OPERATOR MULTIPLE Gautam Landrum MD LAB - BLOOD ORDERABLES Performing Organization Address City/State/ZIP Code Phon e Number [address] [address] [facility] documented in this encounter Visit Diagnoses Diagnosis 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 PCP - General 01/19/17 [place], [place] [address] documented as of this encounter
--- OUTSIDE RECORDS SUMMARY | 2021-12-23 20:12 | XMS_ITS | Clinical Summary ---
:1945 [address] Address [facility] [place] [address] Care Team Providers Name Role Phone [facility] Primary Care Provider [phone] Allergies No known active allergies Medications Medication [...] Comments Blood Pressure 117/67 03/02/2017 9:56 AM PLANER OPERATOR Pulse 67 03/02/2017 7:41 AM PLANER OPERATOR Temperature 36.7 ??C (98 ??F) 03/02/2017 9:56 AM PLANER OPERATOR Respiratory Rate 16 03/02/2017 9:56 AM PLANER OPERATOR Oxygen Saturation 96% 03/02/2017 9:56 AM PLANER OPERATOR Inhaled Oxygen Concentration - - Weight 93 kg (205 lb) 03/02/2017 7:41 AM PLANER OPERATOR Height 185.4 cm (6' 1) 03/02/2017 7:41 AM PLANER OPERATOR Body Mass Index 27.05 03/02/2017 7:41 AM PLANER OPERATOR Plan of Treatment Not on file Insurance Payer Benefit Plan Subscriber ID Effective Phone Address Typ e / Group Dates [employer] [place] [employer] [id number] 1995-Prese [phone] [facility] OFFICE O [facility] nt [address] [facility] [address] [address] [place] [address] (Home) [place] [phone] RACHEL MURRIETA (Work) [id number] Corby Perry Personal/Family Self [address] (Home) [place] [id number] Corby Perry Other Self [id number] (Home) [place] [phone] RACHEL [place]ET[place] (Work) [id number] Corby Perry Other Self [address] (Home) [place] [id number] Care Teams Body Component Engineer Relationship Specialty Start Date [facility]17 [place], [place] [address]
--- OUTSIDE RECORDS SUMMARY | 2021-12-23 20:12 | XMS_ITS | Encounter Summary ---
:1945 Author Organization [place] Address [facility] [place] [address] Care Team Providers Name Role Phone [facility] Primary Care Provider [phone] Encounter Details Date Type Department Care Team Description 03/02/2017 Anesthesia Event M [facility] Sonia hughes MD Procedure Center Kirill Blair MD [address] [place] [address] [address] [place] [address] Anesthesia Record Procedure Summary Procedure [...] Lee MD March 02, 2017 12:58 PM E FILER Anesthesia Preprocedure Evaluation - Sonia Rashid MD [...] early admission to pre-op area: Other: PAC Resident/SALT WASHER HARVESTING STATION Anesthesia Assessment: Corby Mojica is a 71 [...] alternatives discussed with: Patient and Spouse.. . E FILER documented in this encounter Miscellaneous Notes Anesthesia Care Transfer Note - Ab Lyons APRN ASSEMBLER SKYLIGHTS - 03/02/2017 9:50 AM CST Patient: Corby [...] (Last set prior to Anesthesia Care Transfer) ASSEMBLER SKYLIGHTS VITALS 03/02/2017 0920 - 03/02/2017 0950 03/02/2017 EKG: Sinus rhythm Electronically Signed By: Ab Lyons APRN ASSEMBLER SKYLIGHTS March 02, 2017 9:50 AM E FILER documented in this encounter Plan of Treatment Not on filedocumented as of this encounter Visit Diagnoses Not on filedocumented in this encounter Administered Medications Inactive Administered Medications - up to 3 most recent administrations Medication Order MAR Action Action Date Dose Rate Site lidocaine injection 2% (MDV) Given 03/02/2017 9:13 AM BLADE FILER 100 mg Intravenous, PRN, Starting on Sun03/02/17 at 0913, Anesthesia Intra-op midazolam (VERSED) injection Given 03/02/2017 9:09 AM BLADE FILER 1 mg Intravenous, Administer over 2 Minutes, PRN, anxiety, Starting on Sun03/02/17 at 0905, Anesthesia Intra-op Given 03/02/2017 9:05 AM BLADE FILER 1 mg propofol (DIPRIVAN) injection 10 mg/mL v ial Given 03/02/2017 9:28 AM BLADE FILER 15 mg Intravenous, PRN, Starting on Sun03/02/17 at 0915, Anesthesia Intra-op Given 03/02/2017 9:17 AM BLADE FILER 25 mg Given 03/02/2017 9:15 AM BLADE FILER 50 mg documented in this encounter Care Teams Telephone Solicitor Supervisor Relationship Specialty Start Date End Date [facility] PCP - General 01/19/17 [place], [place] [address] documented as of this encounter
--- OUTSIDE RECORDS SUMMARY | 2021-12-23 20:12 | XMS_ITS | Encounter Summary ---
:1945 Author Organization [facility] Address [address] [place] [address] Support Name Relationship Address Phone FRANCES GANDARA Unavailable [address] [place] [address] FRANCES GANDARA Unavailable [address] [place] [address] FRANCES GANDARA Unavailable [address] [place] [address] FRANCES GANDARA Unavailable [address] [place] [address] Insurance Providers: All historical and current Section [...] MEDICARE MEDICARE PART Apr 19, PART A [id number] Whit MOJICA (WNR) (M) A 2007 50A [phone] JESSICA MEDICARE MEDICARE PART Apr 19, PART A [id number] Whit MOJICA (WNR) (M) A 2007 [id number] [phone] JESSICA Selected Encounter This section includes the information on record at [place] for the Encounter. Date/Time Encounter Type Encounter Description Reason Provider Source Nov 08, 2021 08:30 Outpatient Encounter PRIMARY CARE/MEDICINE AM I[facility] Encounter [...] 09, 2021 03:30 PM AMBULATORY - MEDICINE [facility] Nov 29, 2021 01:30 PM AMBULATORY - MEDICINE [facility] Nov 29, 2021 02:30 PM AMBULATORY - MEDICINE [facility] Dec 07, 2021 04:45 PM AMBULATORY - NONE [facility] Dec 12, 2021 02:30 PM AMBULATORY - SURGERY [facility] Dec 15, 2021 10:00 AM AMBULATORY - MEDICINE [facility] Dec 15, 2021 12:30 PM AMBULATORY - NONE [facility] Dec 15, 2021 12:45 PM AMBULATORY - NONE [facility] Dec 15, 2021 02:30 PM AMBULATORY - SURGERY [facility] Dec 20, 2021 02:00 PM AMBULATORY - NONE [facility] Dec 22, 2021 03:30 AM AMBULATORY - NONE [facility] Jan 02, 2022 05:10 PM AMBULATORY - REHAB MEDICINE [facility] Jan 03, 2022 05:00 PM AMBULATORY - REHAB MEDICINE [facility] Jan 05, 2022 04:00 PM AMBULATORY - NONE [facility] Jan 10, 2022 10:00 AM AMBULATORY - SURGERY [facility] Jan 10, 2022 02:30 PM AMBULATORY - MEDICINE [facility] Jan 10, 2022 03:30 PM AMBULATORY - MEDICINE [facility] Feb 01, 2022 03:30 PM AMBULATORY - SURGERY [facility] Feb 09, 2022 02:40 PM AMBULATORY - SURGERY [facility] Feb 14, 2022 10:00 AM AMBULATORY - SURGERY [facility] Active, Pending, and Scheduled Orders [...] The data comes from all [place] treatment [facility]. Test Date/Time Test Type Test Details Facility Name Nov 26, 2021 12:00 Laboratory - HEMOGLOBIN A1C BLOOD SP [facility] AM Chemistry Order ONCE Dec 13, 2021 11:50 Consult Order COMMUNITY CARE-DENTAL GEN [facility] AM SERV Cons Placing Judge's Choice Dec 15, 2021 12:00 Laboratory - COMPREHENSIVE METABOLIC [facility] AM Chemistry Order PANEL+MG PLASMA SP Dec 15, 2021 12:00 Laboratory - HEMOGLOBIN A1C BLOOD SP [facility] AM Chemistry Order Dec 15, 2021 12:00 Laboratory - SED RATE BLOOD SP [facility] AM Chemistry Order Dec 15, 2021 12:00 Laboratory - C-REACTIVE PROTEIN PLASMA [facility] AM Chemistry Order SP Dec 15, 2021 12:00 Laboratory - TSH W/REFLEX TO FREE T4 [facility] AM Chemistry Order PLASMA SP Dec 15, 2021 12:00 Laboratory - CBC & DIFF BLOOD SP ONCE [facility] AM Chemistry Order Dec 15, 2021 11:15 Consult Order WOUND BELT CUTTER SERVICE OUTPT [facility] AM Cons Placing Judge's Choice Dec 15, 2021 11:15 Consult Order COMMUNITY CARE-WOUND CARE [facility] AM PC Cons Placing Judge's Choice Dec 15, 2021 11:36 Consult Order UROLOGY OUTPT Cons KERRYAPOLI S [facility] AM Placing Judge's Choice Dec 15, 2021 11:51 Consult Order [facility]Y [facility] AM Cons Placing Judge's Choice Dec 15, 2021 12:01 Consult Order NEUROLOGY OUTPT [facility] PM Placing Judge's Choice Dec 16, 2021 12:00 Imaging - Magnetic MRI FOOT RIGHT (P) [facility] AM Resonance Imaging (MRI) Order Dec 16, 2021 08:41 Consult Order OT OCCUPATIONAL THERAPY [facility] PM OUTPT PACT Cons Placing Judge's Choice Social History: Smoking Status (Most current) [...] 25, 2021 11:00 AM VA-TOBACCO NEVER USED [facility] Tobacco Use History This section includes a history of the smoking, or tobacco- related health factors, that were collected on or before the date of the Encounter. The data comes from the [place] facility where the Encounter took place. Date/Time Smoking Status/Tobacco Use Comment Facil ity July 09, 2020 02:00 PM VA-TOBACCO [facility] July 09, 2020 02:00 PM VA-TOBACCO QUIT 15 YRS OR MORE [facility] Apr 17, 2019 02:39 PM INPT NO TOBACCO USE IN LAST 30 DAYS [facility] Feb 04, 2019 10:37 AM VA-TOBACCO NEVER USED [facility] Oct 15, 2018 02:43 [...] 2018 03:28 PM VA-TOBACCO FORMER USER [facility] Jan 30, 2018 03:28 PM [...] 26, 2017 CLINICAL WARNING [facility] Jan 01, 2017 CLINICAL WARNING AYDE WELLS [facility] Jun 09, 2004 ADVANCE DIRECTIVE DARYL VILLARREAL [facility] Jun 07, 2004 ADVANCE DIRECTIVE AMIESHERYL [facility] Radiology Reports: +/- [...] PM KNEE RIGHT 3 VIEWS: MOOSE GROVER [facility] JESSICA MOJICA [id number] -[birth year] 7 M Exm Date: NOV 02, 2021@16:01 Req Phys: CARIDAD DENNIS Pat Loc: [facility] SKILLED HOME CARE Img Loc: MAIN X-RAY Service: Unknown (Case [id number] COMPLETE) KNEE RIGHT 3 VIEWS (RAD Det elle) CPT:21562 Proc Modifiers : STANDING RIGHT, STANDING LEFT CPT Modifiers : RT RIGHT SIDE Reason for Study: knee pain Clinical History: [place] IS NOT under investigation for COVID-19 or is COVID-19 negative knee pain Responsible provider name and phone n umber to notify for critical findings if other than user dheeraj g the order and pager listed below: User placing orders pager: [phone] LAST CREATININE 0.7 (07/29/21) Report Status: Verified Date Reported: NOV 02, 2021 Date Verified: NOV 02, 2021 Channel Specialist E-Sig:/ES/MOOSE GROVER MD Report: EXAM: KNEE RIGHT 3 VIEWS 11/02/2021 REASON FOR STUDY: knee pain COMPARISON: None. 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 Mild degenerative change of the m edial compartment. There is no fracture. There is a small knee harshal nt effusion. Bones appear demineralized. Moderate vascular calcifi cations. Primary Interpreting Staff: MOOSE GROVER MD, RADIOLOGIST (Channel Specialist) /[facility] Nov 02, 2021 04:01 PM KNEE LEFT 3 VIEWS: MARCIANO FRANCISCO YUE [facility] JESSICA MOJICA [id number] -DEC 03 7 M Exm Date: NOV 02, 2021@16:01 Req Phys: CARIDAD DENNIS Pat Loc: [facility] Img Loc: MAIN X-RAY Service: Unknown (Case [id number] COMPLETE) KNEE LEFT 3 VIEWS (RAD Detshannon iled) CPT:95170 Proc Modifiers : STANDING RIGHT, STANDING LEFT CPT Modifiers : LT LEFT SIDE Reason for Study: knee pain Clinical History: IS NOT under investigation for COVID-19 or is COVID-19 negative knee pain Responsible provider name and phone n umber to notify for critical findings if other than user placin g the order and pager listed below: User placing orders pager: [phone] LAST CREATININE 0.7 (07/29/21) Report Status: Verified Date Reported: NOV 02, 2021 Date Verified: NOV 02, 2021 Channel Specialist E-Sig:/ES/MARCIANO FRANCISCO MD Report: EXAMINATION: KNEE LEFT [...] Primary Interpreting Staff: MARCIANO FRANCISCO MD, RADIOLOGIST (Channel Specialist) /RTS Oct 26, 2021 05:14 PM LNR INCIDENTAL NODULE LD FOLLOW UP: JOSE SIMON [facility] JESSICA MOJICA [id number] -DEC 03 7 M Exm Date: OCT 26, 2021@17:14 Req Phys: CARIDAD DENNIS Pat Loc: [facility] PACT SAPPHIRE 4E (Req'g Lo Img Loc: CT IMAGING Service: Unknown (Case [id number] COMPLETE) LNR INCIDENTAL NODULE LD FO LLOW U(CT Detailed) CPT:59621 Reason for Study: ground glass opacity from f/u Clinical History: want to schedule for september 06 [place] IS NOT under investigation for COVID-19 or is COVID-19 negative Defer to radiologist for final CT protocol. Responsible provider name and phone number to n otify for critical findings if other than user placing the order a nd pager listed below: User placing orders pager: [phone] LAST 3: Collection DT Specimen Test Name [...] PLASMA ESTIMATED GFR(eGF >60 Ref: >=60 Allergies: ([place] only) RIVAROXABAN (Jul 25, 2017) Report Status: Verified Date Reported: OCT 27, 2021 Date Verified: OCT 27, 2021 Channel Specialist E-Sig:/ES/JOSE NUNEZ MD Report: EXAM: Non-Contrast [...] mancini) Primary Interpreting Resident: TRACY THOMPSON MD, ACCOUNTING FILE CLERK /cvm Encounter Notes: All associated encounter notes This section contains the clinical notes associated to the Encounter. Date/Time Encounter Note(s) Provider Source Nov 08, 2021 12:27 PM HOME HEALTH REFERRAL NOTE: MAXI MIR MA [facility] LOCAL TITLE: [facility] HOME HEALTH CARE STANDARD TITLE: HOME HEALTH REFERRAL NOTE DATE OF NOTE: NOV 08, 2021@12:27 ENTRY DATE: NOV 08, 2021@12:27:06 AUTHOR: CLARKE,MAXI RAFAEL EXP COSIGNER: URGENCY: STATUS: COMPLETED HOME HEALTH CARE CERTIFICATION AND PLAN OF CARE SIGNED BY: Dr. DENNIS [place] [facility] [place] [address] Certification period From: Sep To: Nov 24, 2021 /vinicio/ MAXI MIR ADVANCED ASSISTANT TO THE DIRECTOR Signed: 11/08/2021 12:28
--- OUTSIDE RECORDS SUMMARY | 2021-12-23 20:12 | XMS_ITS | Encounter Summary ---
:1945 Author Organization [place] Address [facility] [place] [address] Care Team Providers Name Role Phone [facility] Primary Care Provider Encounter Details Date Type Department Care Team Description 02/23/2017 Orders Only M Karon Ophthalmolo Emily Ravi, Subjective visual [address] [facility] disturbance (Primary 4th Floor [address] [facility] [address] [place]) [place] [address] [phone] Social History Tobacco Use Types Packs/Day Years [...] ed documented in this encounter Care Teams Financial Sales Professional Relationship Specialty Start Date End Date [facility] PCP - General 01/19/17 [place], [place] [address]187 documented as of this encounter
--- OUTSIDE RECORDS SUMMARY | 2021-12-23 20:12 | XMS_ITS | Encounter Summary ---
:1945 Author Organization [place] Address [facility] [place] [address] Care Team Providers Name Role Phone [facility] Primary Care Provider [phone] Encounter Details Date Type Department Care Team Description 02/28/2017 Allied Health/Nurse [facility] Preoperative Rn, Pac Visit Assessment Center [address] [place], [place] [phone] Social History Tobacco Use Types Packs/Day [...] 03/02/17 Arrival time: 07:45 Please come to: [facility] [address] [place] [phone] Glass Installer Technician Parking is available in front of the Clinics and Surgery Center building from 5:30AM to 8:00PM. - Proceed to the 5th floor to check into the Ambulatory Surgery Center. >> There will be patient concierges on the 1st and 5th floor, for assistance or an escort, ifyou would like. >> Please call [phone] with any questions. What can I eat [...] - Do NOT wear any makeup, fingernail anguillan or jewelry. - Begin using Incentive Spirometer [...] call the Preoperative Assessment Center, Sunday-Sunday 7AM-7PM: [phone] ER IN CHANCERY documented in this encounter Plan of Treatment Not on filedocumented as of this encounter Visit Diagnoses Not on filedocumented in this encounter Care Teams Artisan Plasterer Relationship Specialty Start Date End Date [facility] PCP - General 01/19/17 [place] [address] documented as of this encounter
--- OUTSIDE RECORDS SUMMARY | 2021-12-23 20:12 | XMS_ITS | Encounter Summary ---
:1945 Author Organization [place] Address [address] [place] [address] Care Team Providers Name Role Phone [place], [facility] Primary Care Provider [phone] Encounter Details Date Type Department Care Team Description 02/23/2017 Orders Only [facility] Eye Gautam Landrum Subjective visual disturbance (Primary Dx); Clinic - Gustavo Valencia MD Diplopia [address] [place] [address] Social History Tobacco Use Types [...] ual Results for this SPECTRALIS OU (BOTH PEST CONTROL SPECIALIST disturbance procedure are in EYES) Diplopia the results section. GLAUCOMA TOP OU Routine 03/05/2017 3:23 PM Subjective visual R esults for this PEST CONTROL SPECIALIST disturbance procedure are in Diplopia the results section. SENSORIMOTOR Routine 03/05/2017 3:22 PM Diplopia Results for this PEST CONTROL SPECIALIST Subjective visual procedure are in disturbance the results section. documented in this encounter Results OCT Optic Nerve RNFL Spectralis OU (both eyes) (03/05/2017 3:24 PM PEST CONTROL SPECIALIST) Narrative Gautam Landrum MD - 01/15/2 018 3:24 PM PEST CONTROL SPECIALIST Performed by: tfw . Right Eye Reliability [...] OPHTHALMOLOGY Glaucoma Top OU (03/05/2017 3:23 PM PEST CONTROL SPECIALIST) Narrative Gautam Landrum MD - 018 3:23 PM PEST CONTROL SPECIALIST Performed by: BD . Patient cooperation: Reliable [...] Landrum MD OPHTHALMOLOGY Sensorimotor (03/05/2017 3:22 PM PEST CONTROL SPECIALIST) Narrative Gautam Landrum MD - 3:22 PM PEST CONTROL SPECIALIST Performed by: JUANITA Mayo Patient cooperation: Reliable . Reliability of the test: Good . Test Findings: Strabismus . Interpretation: Esotropia . Plan: Will monitor and consider eye mu scle surgery . Interval: Initial . Gautam Landrum MD OPHTHALMOLOGY documented in this encounter Visit Diagnoses Diagnosis Subjective visual disturbance - Primary Subjective visual disturbance, unspecifi ed Diplopia documented in this encounter Care Teams Generator Technician Relationship Specialty Start Date End Date [place], [facility] PCP - General 01/19/17 [place], [place] [id number] documented as of this encounter
--- OUTSIDE RECORDS SUMMARY | 2021-12-23 20:12 | XMS_ITS | Encounter Summary ---
:1945 Author Organization [place] Address [address] [place] [address]. [place] [address] Care Team Providers Name Role Phone [facility] Primary Care Provider [phone] Encounter Details Date Type Department Care Team Description 03/02/2017 Hospital Encounter [facility] Surgery and [place], Post-operative state Procedure Center MD Emily (Primary Dx) [address] [place] [address] [phone] Social History Tobacco Use Types Packs/Day Years Used Date Smoking Tobacco: Never Smokeless Tobacco: Never Alcohol Use Standard Drinks/Week Comments No 0 (1 standard drink = 0.6 oz pure alcoho l) Sex Assigned at Date Recorded Not on file documented as of this encounter Last Filed Vital Signs Vital Sign Reading Time Taken Comments Blood Pressure 117/67 03/02/2017 9:56 AM BOATWRIGHT Pulse 67 03/02/2017 7:41 AM BOATWRIGHT Temperature 36.7 ??C (98 ??F) 03/02/2017 9:56 AM BOATWRIGHT Respiratory Rate 16 03/02/2017 9:56 AM BOATWRIGHT Oxygen Saturation 96% 03/02/2017 9:56 AM BOATWRIGHT Inhaled Oxygen Concentration - - Weight 93 kg (205 lb) 03/02/2017 7:41 AM BOATWRIGHT Height 185.4 cm (6' 1) 03/02/2017 7:41 AM BOATWRIGHT Body Mass Index 27.05 03/02/2017 7:41 AM BOATWRIGHT documented in this encounter Discharge Instructions Discharge Instructionsde Curtis Sauceda MD - 03/02/2017 9:51 AM BOATWRIGHT Post-operative Instructions Ophthalmic Plastic and Reconstructive Surgery [...] stopped using narcotic pain medications (such as [place], Percocet, Tylenol #3). Medications ? Restart all your regular home medications and eye drops. If you take Plavix or Aspirin on a regular basis, wait for 72 hours after your surgery before restarting these in order todecrease the risk of bleeding complications. ? Avoid aspirin and aspirin-like medications (Motrin, Aleve, Ibuprofen, Giovana- [place] etc) for 72 hours to reduce the [...] 6 tablets of Darvocet, 12 tablets of [place], Percocet or Tylenol #3. If you take other hsmj-dyh-xhpuibp medications containing acetaminophen, you must take the [...] no appointment has been scheduled: - [facility] eye clinic: [phone] for an appointment with Dr. Shaikh within 1 to 2 weeks from your date of surgery. - [facility]: [phone] Shaikh within 1 to2 weeks from your date of surgery. ? For severe pain, bleeding, or loss of vision, call the [facility] at [phone] or [facility] at [phone]. After hours or on weekends and holidays, call [phone] and ask to speak with the ophthalmologiston call. An director of content and programmingcall center support consultant can be reached after hours for concerns. The director of content and programming doctor should not call in medication refill requests after hours or on weekends, so please plan accordingly. An effort has been made to provide adequate pain medications following every surgery, and refills will not be provided in most instances. Narcotic pain medications cannot be called in. [facility] Ambulatory Surgery and Procedure Center [...] Your doctor is: Dr. Emily Shaikh, Ophthalmology: [phone] dial [phone] and ask for the resident director of content and programming for: {[facility] Emergency Department: [phone] (TTY for hearing impaired: [phone]) WRIGHT documented in this encounter Medications at Time [...] room in stable condition. Emily Shaikh MD WRIGHT Brief Op Note - Curtis Livingston MD - 03/02/2017 9:50 AM BOATWRIGHT [facility] Brief Operative Note Pre-operative diagnosis: Rule Out Arteritis Post-operative diagnosis Same Procedure: Procedure(s): Right Temporal Artery Biopsy - Wound Class: I-Clean, Surgeon: Emily Shaikh MD Sticker On(s): Umm Pablo MD; Curtis Sharif MD Estimated blood loss: < 10 mL Specimens: None Findings: Consistent with diagnosis WRIGHT documented in this encounter Plan of Treatment Not on filedocumented as of this encounter Procedures Procedure Name Priority Date/Time Associated Diagnosis Comme nts SURGICAL PATHOLOGY Routine 03/02/2017 9:36 AM Res ults for this EXAM BOATWRIGHT procedure are i n the results section. BIOPSY, ARTERY, 03/02/2017 9:05 AM Rule Out Arteritis TEMPORAL BOATWRIGHT GLUCOSE BY METER Routine 03/02/2017 8:09 AM Post-operative sta te Results for this BOATWRIGHT procedure are i n the results section. documented in this encounter Results Surgical pathology exam (03/02/2017 9:36 AM BOATWRIGHT) Component Value Ref Test Analysis Performed Pathologis t Range Method Time At Signature Copath Patient Name: CORBY MOJICA Report MR#: [id number] Specimen #: [id number] Collected: 03/02/2017 Received: 03/02/2017 [...] Electronically signed out by: Angely Montoya M.D., [facility] CLINICAL HISTORY: The patient is [...] in cassette A1. (Dictated by: Suzette PEDERSEN [facility] 03/02/2017 10:19 AM) MICROSCOPIC: The tissue consists [...] active inflammation is identified. CPT Codes: A: 28375-QQ0, 01105-YSYW TESTING LAB LOCATION: [facility], [address] ?? [address] COLLECTION SITE: Client: [facility] Location: [facility] ([place]) Specimen (Source) Anatomical Collection Method Collection Time Re ceived Time Location / / Volume Laterality Specimen from STRUCTURE OF 03/02/2017 9:36 unspecified body SUPERFICIAL AM BOATWRIGHT site obtained by TEMPORAL ARTERY / biopsy (specimen) Unknown Narrative This result has an attachment that is no t available. Emily WOODS - SELINA JESSICA Performing Organization Address City/State/ZIP Code Phon e Number COPATH (ABNORMAL) Glucose by meter (03/02/2017 8:09 AM BOATWRIGHT) P athologist Signature Glucose 188 (H) 70 - 99 03/02/2017 POINT OF CARE mg/dL 8:15 AM BOATWRIGHT TEST, GLUCOSE Specimen Anatomical Collection Method Collection Time Receive d Time (Source) Location / / Volume Laterality 03/02/2017 8:09 AM 8 8:15 BOATWRIGHT AM BOATWRIGHT Emily WOODS - SELINA POCT Performing Organization [...] (TYLENOL) tablet 975 Given 03/02/2017 8:10 AM BOATWRIGHT 975 mg mg 975 mg, Oral, ONCE, On Sun03/02/17 at 0730, For 1 dose, Maximum acetaminophen dose from all sources = 75 mg/kg/day not to exceed 4 grams/day., Pre-procedure lactated ringers infusion New Bag 03/02/2017 8:10 AM BOATWRIGHT 25 mL/hr at 25 mL/hr, Intravenous, CONTINUOUS, IF patient NOT on dialysis., Pre-procedure, Starting on Sun03/02/17 at 0745, Until Sun03/02/17 at 0947 documented in this encounter Care Teams Materials Planner Relationship Specialty Start Date End Date [place], [facility] PCP - General 01/19/17 [place] [address] documented as of this encounter
--- OUTSIDE RECORDS SUMMARY | 2021-12-23 20:12 | XMS_ITS | Encounter Summary ---
:1945 Author Organization [place] Address [address] [place] [address]. [place] [address] Care Team Providers Name Role Phone [facility] Primary Care Provider [phone] Encounter Details Date Type Department Care Team Description 01/10/2017 Medical Correspondence [facility] Scan, REFERRAL ORDER Health Info Mgmt Non-Provider [facility] [address] [place] [address] Social History Tobacco Use Types Packs/Day Years Used Date Smoking Tobacco: Never Assessed Sex Assigned at Date Recorded Not on file documented as of this encounter Plan of Treatment Not on filedocumented as of this encounter Visit Diagnoses Not on filedocumented in this encounter Care Teams Chemical Radiation Technician Relationship Specialty Start Date End Date [facility] PCP - General 01/19/17 One [place], [place] [phone] documented as of this encounter
--- OUTSIDE RECORDS SUMMARY | 2021-12-23 20:12 | XMS_ITS | Encounter Summary ---
:1945 Author Organization [place] Address [address] [facility] [place] [address] Care Team Providers Name Role Phone [place] [facility] Primary Care Provider [phone] Reason for Visit Reason Onset Date Comments Patient Request 03/06/2017 Encounter Details Date Type Department Care Team Description 03/06/2017 Telephone [facility] Eye Gautam Landrum Patient Request Clinic - Gustavo Valencia MD [phone] [place] [address] Or Clin [place] [phone] Social History Tobacco Use Types Packs/Day [...] 1615 Campbell Frazier RN 4:33 PM 03/06/17 [place] LABORATORY ASSISTANT Telephone Encounter - Campbell Frazier RN - 03/06/2017 2:56 PM CST calling as middle person to pt who was on her other line Asked if could talk to her /pt and provided the [phone] number. Asked to tell pt I will be calling in 30 seconds Called 3 times-- no answer and left voicemail with direct number Campbell Frazier RN 3:00 PM 03/06/17 [place] LABORATORY ASSISTANT documented in this encounter Plan of Treatment Not on filedocumented as of this encounter Visit Diagnoses Not on filedocumented in this encounter Care Teams Hospital Ward Clerk Relationship Specialty Start Date End Date [facility], [facility] PCP - General 01/19/17 [place], [place] [id number] documented as of this encounter
--- OUTSIDE RECORDS SUMMARY | 2021-12-23 20:12 | XMS_ITS | Encounter Summary ---
:1945 Author Organization [place] Address [address] [facility] [place] [address] Care Team Providers Name Role Phone [facility] Primary Care Provider [phone] Encounter Details Date Type Department Care Team Description 03/05/[address] [facility] Eye Gautam Landrum Giant cell arteritis Clinic [facility] MD Erik (H) (Primary Dx) Randall [address] [place] [address] Social History Tobacco Use Types [...] arteritis documented in this encounter Care Teams Mirror Polisher Relationship Specialty Start Date End Date [facility] PCP - General 01/19/17 One [place], [place] [address]47 documented as of this encounter
--- OUTSIDE RECORDS SUMMARY | 2021-12-23 20:12 | XMS_ITS | Clinical Summary ---
:1945 Author Organization [employer] [place] [address] Care Team Providers Name Role Phone Giselle Martinez MD Primary Care Provider [phone] Allergies Active Allergy Reactions Severity Noted [...] mL liquid 2 times daily. saliva stimulant [place] 1-2 sprays in 0 Active comb. no.3 (Biotene mouth every hour as Moisturizing Mouth) needed for dry mouth spry ergocalciferol Take 50,000 units by 0 Active (VITAMIN D2; DRISDOL) mouth every 4 weeks. 50,000 unit capsule fluticasone (50 mcg Inhale 1 [place] into 0 Active per actuation) nasal affected [...] % Apply to teeth. 0 Active pste [place] small amount by mouth every morning and [...] 09/01/2021 Active equipment SHOE, EDWIN, REF: (DME)Indications: [phone] Diabetic ulcer of right midfoot associated with type 2 diabetes mellitus, with fat layer exposed (HC), Follow-up examination after orthopedic surgery, Dehiscence of operative wound, initial encounter durable medical SQUARED TOE POST OP 1 Each 0 10/13/2021 Active equipment SHOE, EDWIN, REF: (DME)Indications: [phone] Diabetic ulcer of right midfoot associated with [...] 14 wee ks post op) 09/22/2021 Travel from Last 3 Months Immunizations Name Administration Dates Next Due COVID-19 vaccine ([employer] 12/02/2020, 04/09/2020, 30mcg/0.3mL) PF, MDV Influenza Virus, [...] a pack per week for 6 m [facility] at age 19 Alcohol Use Standard Drinks/Week [...] 5 [phone] (Isaac li) 01/19/2022 Office Visit Molina Copeland DPM [address] [phone] (Isaac li) Health Maintenance Due Date Last Done Comments [...] MEDICARE PART A - HB MEDICARE PART [id number] 2007-Prese ATTN: CLAIMS USE ONLY A HB ONLY nt [address] [place] [address] [employer] [place] [id number] 2019-Pres [place] CC[place] [employer] ent [address] [place] [address] Advance Directives Latest Code Status on File Code Status Date Activated Date Inactivated Comments Full Code 06/13/2021 2:07 PM 06/16/2021 2:09 PM Code Status Discussion: Reviewed Preferences Full Code 06/13/2021 9:22 AM 06/13/2021 2:07 PM Code Status Discussion: Reviewed Preferences Care Teams Field Marketing Coordinator Relationship Specialty Start Date End Date Giselle Martinez MD PCP - General Internal Medicine 04/13/21 1 [facility] RACHEL WHITMORE [id number]
--- OUTSIDE RECORDS SUMMARY | 2021-12-23 20:12 | XMS_ITS | Encounter Summary ---
:1945 Author Organization [place] Address [address] [facility] [place] [address] Care Team Providers Name Role Phone [facility] Primary Care Provider [phone] Encounter Details Date Type Department Care Team Description 03/06/2017 Orders Only [facility] Eye Gautam Landrum Giant cell arteritis Clinic [facility] MD Erik (H) (Primary Dx) Randall [address] [place] [address] Social History Tobacco Use Types [...] arteritis documented in this encounter Care Teams Health Care Coordinator Relationship Specialty Start Date End Date [facility] PCP - General 01/19/17 One [place], [place] [address] documented as of this encounter
--- OUTSIDE RECORDS SUMMARY | 2021-12-23 20:12 | XMS_ITS | Encounter Summary ---
:1945 Author Organization [place] Address [address] [place] [address]. [place] [address] Care Team Providers Name Role Phone [facility] Primary Care Provider [phone] Encounter Details Date Type Department Care Team Description 03/02/2017 Surgery [facility] Surgery and Emily Shaikh R [facility] Temporal Artery Procedure Center Biopsy [address] [place] [address] 5th [place] [address] [phone] Surgery Details Date/Time Status Location OR Service [...] Comments Blood Pressure 117/67 03/02/2017 9:56 AM TRANSPLANT COORDINATOR Pulse 67 03/02/2017 7:41 AM TRANSPLANT COORDINATOR Temperature 36.7 ??C (98 ??F) 03/02/2017 9:56 AM TRANSPLANT COORDINATOR Respiratory Rate 16 03/02/2017 9:56 AM TRANSPLANT COORDINATOR Oxygen Saturation 96% 03/02/2017 9:56 AM TRANSPLANT COORDINATOR Inhaled Oxygen Concentration - - Weight 93 kg (205 lb) 03/02/2017 7:41 AM TRANSPLANT COORDINATOR Height 185.4 cm (6' 1) 03/02/2017 7:41 AM TRANSPLANT COORDINATOR Body Mass Index 27.05 03/02/2017 7:41 AM TRANSPLANT COORDINATOR documented in this encounter Discharge Instructions Discharge Instructionsde Curtis Sauceda MD - 03/02/2017 9:51 AM TRANSPLANT COORDINATOR Post-operative Instructions Ophthalmic Plastic and Reconstructive Surgery [...] stopped using narcotic pain medications (such as Upperco, Percocet, Tylenol #3). Medications ? Restart all your regular home medications and eye drops. If you take Plavix or Aspirin on a regular basis, wait for 72 hours after your surgery before restarting these in order todecrease the risk of bleeding complications. ? Avoid aspirin and aspirin-like medications (Motrin, Aleve, Ibuprofen, Giovana- [place] etc) for 72 hours to reduce the [...] 6 tablets of Darvocet, 12 tablets of Upperco, Percocet or Tylenol #3. If you take other krre-cju-fxwzwze medications containing acetaminophen, you must take the [...] no appointment has been scheduled: - [facility] eye clinic: [phone] for an appointment with Dr. Shaikh within 1 to 2 weeks from your date of surgery. - [facility] eye clinic: [phone] for an appointment with Dr. Shaikh within 1 to2 weeks from your date of surgery. ? For severe pain, bleeding, or loss of vision, call the [facility] at [phone] or [facility] Clinic at [phone]. After hours or on weekends and holidays, call [phone] and ask to speak with the ophthalmologiston call. An engineering and operations directoron call can be reached after hours for concerns. The engineering and operations director doctor should not call in medication refill requests after hours or on weekends, so please plan accordingly. An effort has been made to provide adequate pain medications following every surgery, and refills will not be provided in most instances. Narcotic pain medications cannot be called in. [facility] Amb[facility] Surgery and Procedure [facility] Home [...] Your doctor is: Dr. Emily Shaikh, Ophthalmology: [phone] dial [phone] and ask for the resident engineering and operations director for: {[employer] [facility] Emergency Department: [phone] (TTY for hearing impaired: [phone]) SPLANT COORDINATOR documented in this encounter Medications at Time [...] room in stable condition. Emily Shaikh MD SPLANT COORDINATOR Brief Op Note - Curtis Livingston MD - 03/02/2017 9:50 AM TRANSPLANT COORDINATOR [facility] Brief Operative Note Pre-operative diagnosis: Rule Out Arteritis Post-operative diagnosis Same Procedure: Procedure(s): Right Temporal Artery Biopsy - Wound Class: I-Clean, Surgeon: Emily Shaikh MD Donkey Ride Operator(s): Umm Pablo MD; Curtis Sharif MD Estimated blood loss: < 10 mL Specimens: None Findings: Consistent with diagnosis SPLANT COORDINATOR documented in this encounter Plan of Treatment Not on filedocumented as of this encounter Procedures Procedure Name Priority Date/Time Associated Diagnosis Comme nts SURGICAL PATHOLOGY Routine 03/02/2017 9:36 AM Res ults for this EXAM TRANSPLANT COORDINATOR procedure are i n the results section. BIOPSY, ARTERY, 03/02/2017 9:05 AM Rule Out Arteritis TEMPORAL TRANSPLANT COORDINATOR GLUCOSE BY METER Routine 03/02/2017 8:09 AM Post-operative sta te Results for this TRANSPLANT COORDINATOR procedure are i n the results section. documented in this encounter Results Surgical pathology exam (03/02/2017 9:36 AM TRANSPLANT COORDINATOR) Component Value Ref Test Analysis Performed Pathologis t Range Method Time At Signature Copath Patient Name: CORBY MOJICA Report MR#: [id number] Specimen #: [id number] Collected: 03/02/2017 Received: 03/02/2017 Reported: 03/05/2017 12:57 Ordering Phy(s): EMILY HSAIKH For improved result formatting, select 'View Enhanced [...] signed out by: Angely Montoya M.D., [facility] CLINICAL HISTORY: The patient is a [...] in cassette A1. (Dictated by: Suzette [facility] 03/02/2017 10:19 AM) MICROSCOPIC: The tissue [...] active inflammation is identified. CPT Codes: A: 68358-SL7, 79224-LTSZ TESTING LAB LOCATION: [facility], [address] ?? [address] COLLECTION SITE: Client: [facility] Location: [facility] (B) Specimen (Source) Anatomical Collection Method Collection Time Re ceived Time Location / / Volume Laterality Specimen from STRUCTURE OF 03/02/2017 9:36 unspecified body SUPERFICIAL AM TRANSPLANT COORDINATOR site obtained by TEMPORAL ARTERY / biopsy (specimen) Unknown Narrative This result has an attachment that is no t available. Emily WOODS - BEAKER AP Performing Organization Address City/State/ZIP Code Phon e Number [place] (ABNORMAL) Glucose by meter (03/02/2017 8:09 AM TRANSPLANT COORDINATOR) P athologist Signature Glucose 188 (H) 70 - 99 03/02/2017 POINT OF CARE mg/dL 8:15 AM TRANSPLANT COORDINATOR TEST, GLUCOSE Specimen Anatomical Collection Method Collection Time Receive d Time (Source) Location / / Volume Laterality 03/02/2017 8:09 AM 8 8:15 TRANSPLANT COORDINATOR AM TRANSPLANT COORDINATOR Emily MARKS POCT Performing Organization Address City/State/ZIP Code Phon e Number FV POINT OF CARE TEST, GLUCOSE POINT OF CARE TEST, GLUCOSE documented in this encounter Visit Diagnoses Not on filedocumented in this encounter Administered Medications Inactive Administered Medications - up to 3 most recent administrations Medication Order MAR Action Action Date Dose Rate Site acetaminophen (TYLENOL) tablet 975 Given 03/02/2017 8:10 AM TRANSPLANT COORDINATOR 975 mg mg 975 mg, Oral, ONCE, On Sun03/02/17 at 0730, For 1 dose, Maximum acetaminophen dose from all sources = 75 mg/kg/day not to exceed 4 grams/day., Pre-procedure bupivacaine 0.5% - 30 mL, Given 03/02/2017 9:14 AM 4 mLs Operative Site/Surgical lidocaine 2% w/EPINEPHrine TRANSPLANT COORDINATOR Site 1:100,000 30 mL PRN, Starting on Sun03/02/17 at 0914, Intra-procedure erythromycin (ROMYCIN) Given 03/02/2017 9:40 AM 1 inch Operative Site/Surgical ophthalmic ointment TRANSPLANT COORDINATOR Site PRN, Starting on Sun03/02/17 at 0940, Intra-procedure lactated ringers infusion New Bag 03/02/2017 8:10 AM TRANSPLANT COORDINATOR 25 mL/hr at 25 mL/hr, Intravenous, CONTINUOUS, IF patient NOT on dialysis., Pre-procedure, Starting on Sun03/02/17 at 0745, Until Sun03/02/17 at 0947 documented in this encounter Care Teams Player Manager Relationship Specialty Start Date End Date [place], [facility] PCP - General 01/19/17 [place] [address] documented as of this encounter
--- OUTSIDE RECORDS SUMMARY | 2021-12-23 20:12 | XMS_ITS | Encounter Summary ---
:1945 Author Organization [place] Address Pending sale to [facility] [address] Care Team Providers Name Role Phone [facility] Primary Care Provider [phone] Encounter Details Date Type Department Care Team Description 02/28/2017 Orders Only [facility] Preop general physical [address] [facility] [address] exam 1st Floor [place], [place] [phone] Social History Tobacco Use [...] Preop general Resul ts for this PANEL [employer] CRM DEVELOPER physical exam procedure are in the results section. CBC WITH PLATELETS Routine 02/28/2017 3:10 PM Preop general Re sults for this [employer] CRM DEVELOPER physical exam procedure are in the results section. documented in this encounter Results (ABNORMAL) CBC with platelets (02/28/2017 3:10 PM [employer] CRM DEVELOPER) [facility] Method Time Signature WBC 6.3 4.0 - 11.0 02/28/2017 [facility] 10e9/L 3:44 PM [facility] RBC Count 5.13 4.4 - 5.9 02/28/2017 [facility] 10e12/L 3:44 PM [facility] Hemoglobin 13.9 13.3 - 02/28/2017 [facility] 17.7 g/dL 3:44 PM [facility] Hematocrit 44.2 40.0 - 02/28/2017 [facility] 53.0 % 3:44 PM [facility] MCV 86 78 - 100 02/28/2017 [facility] fl 3:44 PM [facility] MCH 27.1 26.5 - 02/28/2017 [facility] 33.0 pg 3:44 PM [facility] MCHC 31.4 (L) 31.5 - 02/28/2017 [facility] 36.5 g/dL 3:44 PM [facility] RDW 13.9 10.0 - 02/28/2017 [facility] 15.0 % 3:44 PM [facility] Platelet Count 253 150 - 450 02/28/2017 [facility] 10e9/L 3:44 PM [facility] Specimen Anatomical Collection Method Collection Time Receive d Time (Source) Location / / Volume Laterality Blood specimen 02/28/2017 3:10 PM 018 3:13 (specimen) [employer] DEVELOPER PM [employer] Estela Ruth APRN [employer] [facility] - BLOOD ORDERABLES Performing Organization Address City/State/ZIP Code Phon e Number [address] [address] [facility] (ABNORMAL) Basic metabolic panel (02/28/2017 3:10 PM [facility]) [facility] Method Time Signature Sodium 135 133 - 144 02/28/2017 [facility] mmol/L 4:01 PM [facility] Potassium 4.2 3.4 - 5.3 02/28/2017 [facility] mmol/L 4:01 PM [facility] Chloride 99 94 - 109 02/28/2017 [facility] mmol/L 4:01 PM [facility] Carbon Dioxide 32 20 - 32 02/28/2017 [facility] mmol/L 4:01 PM [facility] Anion Gap 5 3 - 14 02/28/2017 [facility] mmol/L 4:01 PM [facility] Glucose 219 (H) 70 - 99 02/28/2017 [facility] mg/dL 4:01 PM [facility] Urea Nitrogen 14 7 - 30 02/28/2017 [facility] mg/dL 4:01 PM [facility] Creatinine 0.56 (L) 0.66 - 02/28/2017 [facility] 1.25 mg/dL 4:01 PM [facility] GFR Estimate >90 >60 02/28/2017 [facility] mL/min/1.7 4:[address] Comment: Non GFR Calc GFR Estimate If >90 >60 mL/min/1.7m2 02/28/2017 4:01 P M [facility] Comment: GFR Calc Calcium 8.8 8.5 - 10.1 mg/dL 02/28/2017 4:[address] [facility] Specimen Anatomical Collection Method Collection Time Receive d Time (Source) Location / / Volume Laterality Blood specimen 02/28/2017 3:10 PM 018 3:13 (specimen) [employer] CRM DEVELOPER PM [employer]EL[employer] Estela Ruth APRN [employer] P[employer] LAB - BLOOD ORDERABLES Performing Organization Address City/State/ZIP Code Phon e Number [address] [phone] [facility] AND [facility] documented in this encounter Visit Diagnoses Diagnosis Preop general physical exam Other specified pre-operative examinatio n documented in this encounter Care Teams Sorting Livestock Worker Relationship Specialty Start Date End Date [facility] PCP - General 01/19/17 One [place], [place] [address] documented as of this encounter
--- OUTSIDE RECORDS SUMMARY | 2021-12-23 20:12 | XMS_ITS | Encounter Summary ---
:1945 Author Organization [place] Address [address] [facility] [place] [address] Care Team Providers Name Role Phone [facility] Primary Care Provider [phone] Encounter Details Date Type Department Care Team Description 03/06/2017 Orders Only [facility] Eye Gautam Landrum Giant cell arteritis Clinic [facility] MD Erik (H) Randall [address] [place] [address] Social History Tobacco Use Types [...] arteritis documented in this encounter Care Teams Habitat Management Coordinator Relationship Specialty Start Date End Date [facility] PCP - General 01/19/17 [place] [address] documented as of this encounter
== END 2021-12-23 15:39 | disposition home or self-care (01) ==
LOC: WOUND 15:38
PROVIDERS: PCP Podiatrist; Visit Provider Nurse Practitioner Family
DX: E11.621 Type 2 diabetes mellitus with foot ulcer (principal); L97.415 Non-pressure chronic ulcer of right heel and midfoot with muscle involvement without evidence of necrosis; Z79.84 Long term (current) use of oral hypoglycemic drugs
CPT/HCPCS: 11042

== ENCOUNTER 2021-12-29 15:48 | Outpatient (CLI) | payer OTHER, SELFPAY ==
--- OUTSIDE RECORDS SUMMARY | 2021-12-29 15:50 | XMS_ITS | Encounter Summary ---
:1945 Author Organization [place] Address [facility] [place] [address] Care Team Providers Name Role Phone [facility] Primary Care Provider [phone] Encounter Details Date Type Department Care Team Description 03/02/2017 Anesthesia Event [facility] Center Kirill Blair MD [address] [place] [address] [address] [place] [address] Anesthesia Record Procedure Summary Procedure [...] Lee MD March 02, 2017 12:58 PM ER HELPER Anesthesia Preprocedure Evaluation - Sonia Rashid MD [...] early admission to pre-op area: Other: PAC Resident/HOME LIGHTING ADVISER Anesthesia Assessment: Corby Mojica is a 71 [...] alternatives discussed with: Patient and Spouse.. . ER HELPER documented in this encounter Miscellaneous Notes Anesthesia Care Transfer Note - Ab Lyons APRN BILINGUAL COUNTER SALES RETAIL - 03/02/2017 9:50 AM CST Patient: Corby [...] (Last set prior to Anesthesia Care Transfer) BILINGUAL COUNTER SALES RETAIL VITALS 03/02/2017 0920 - 03/02/2017 0950 03/02/2017 EKG: Sinus rhythm Electronically Signed By: Ab Lyons APRN BILINGUAL COUNTER SALES RETAIL March 02, 2017 9:50 AM ER HELPER documented in this encounter Plan of Treatment Not on filedocumented as of this encounter Visit Diagnoses Not on filedocumented in this encounter Administered Medications Inactive Administered Medications - up to 3 most recent administrations Medication Order MAR Action Action Date Dose Rate Site lidocaine injection 2% (MDV) Given 03/02/2017 9:13 AM FITTER HELPER 100 mg Intravenous, PRN, Starting on Sun03/02/17 at 0913, Anesthesia Intra-op midazolam (VERSED) injection Given 03/02/2017 9:09 AM FITTER HELPER 1 mg Intravenous, Administer over 2 Minutes, PRN, anxiety, Starting on Sun03/02/17 at 0905, Anesthesia Intra-op Given 03/02/2017 9:05 AM FITTER HELPER 1 mg propofol (DIPRIVAN) injection 10 mg/mL v ial Given 03/02/2017 9:28 AM FITTER HELPER 15 mg Intravenous, PRN, Starting on Sun03/02/17 at 0915, Anesthesia Intra-op Given 03/02/2017 9:17 AM FITTER HELPER 25 mg Given 03/02/2017 9:15 AM FITTER HELPER 50 mg documented in this encounter Care Teams Charge Auditor Relationship Specialty Start Date End Date [facility] PCP - General 01/19/17 [place], [place] [id number] documented as of this encounter
--- OUTSIDE RECORDS SUMMARY | 2021-12-29 15:50 | XMS_ITS | Encounter Summary ---
:1945 Author Organization [place] Address [address] [facility] [place] [address] Care Team Providers Name Role Phone [facility] Primary Care Provider Encounter Details Date Type Department Care Team Description 03/06/2017 Orders Only [facility] Eye Gautam Landrum Giant cell arteritis Clinic [facility] MD Erik (H) Randall [address] [place] [address] Social History Tobacco Use Types [...] arteritis documented in this encounter Care Teams Sodder Relationship Specialty Start Date End Date [facility] PCP - General 01/19/17 [place] [address] documented as of this encounter
--- OUTSIDE RECORDS SUMMARY | 2021-12-29 15:50 | XMS_ITS | Encounter Summary ---
:1945 Author Organization [place] Address [address] [place] [address]. [place] [address] Care Team Providers Name Role Phone [facility] Primary Care Provider [phone] Encounter Details Date Type Department Care Team Description 03/02/2017 Hospital Encounter [facility] Surgery and [place], Post-operative state Procedure Center MD Emily (Primary Dx) [address] [place] [phone] Social History Tobacco Use Types Packs/Day Years Used Date Smoking Tobacco: Never Smokeless Tobacco: Never Alcohol Use Standard Drinks/Week Comments No 0 (1 standard drink = 0.6 oz pure alcoho l) Sex Assigned at Date Recorded Not on file documented as of this encounter Last Filed Vital Signs Vital Sign Reading Time Taken Comments Blood Pressure 117/67 03/02/2017 9:56 AM MULTIMEDIA ENGINEER Pulse 67 03/02/2017 7:41 AM MULTIMEDIA ENGINEER Temperature 36.7 ??C (98 ??F) 03/02/2017 9:56 AM MULTIMEDIA ENGINEER Respiratory Rate 16 03/02/2017 9:56 AM MULTIMEDIA ENGINEER Oxygen Saturation 96% 03/02/2017 9:56 AM MULTIMEDIA ENGINEER Inhaled Oxygen Concentration - - Weight 93 kg (205 lb) 03/02/2017 7:41 AM MULTIMEDIA ENGINEER Height 185.4 cm (6' 1) 03/02/2017 7:41 AM MULTIMEDIA ENGINEER Body Mass Index 27.05 03/02/2017 7:41 AM MULTIMEDIA ENGINEER documented in this encounter Discharge Instructions Discharge Instructionsde Curtis Sauceda MD - 03/02/2017 9:51 AM MULTIMEDIA ENGINEER Post-operative Instructions Ophthalmic Plastic and Reconstructive Surgery [...] stopped using narcotic pain medications (such as [place], Percocet, Tylenol #3). Medications ? Restart all your regular home medications and eye drops. If you take Plavix or Aspirin on a regular basis, wait for 72 hours after your surgery before restarting these in order todecrease the risk of bleeding complications. ? Avoid aspirin and aspirin-like medications (Motrin, Aleve, Ibuprofen, Giovana- [place] etc) for 72 hours to reduce the [...] 6 tablets of Darvocet, 12 tablets of [place], Percocet or Tylenol #3. If you take other uqcr-hjc-pfaoqgf medications containing acetaminophen, you must take the [...] If no appointment has been scheduled: - [facility] eye clinic: [phone] for an appointment with Dr. Shaikh within 1 to 2 weeks from your date of surgery. - [facility] eye clinic: [phone] for an appointment with Dr. Shaikh within 1 to2 weeks from your date of surgery. ? For severe pain, bleeding, or loss of vision, call the [facility] Eye Clinic at [phone] or [facility] Clinic at [phone]. After hours or on weekends and holidays, call [phone] and ask to speak with the ophthalmologiston call. An contour sanderscalloper can be reached after hours for concerns. The contour sander doctor should not call in medication refill requests after hours or on weekends, so please plan accordingly. An effort has been made to provide adequate pain medications following every surgery, and refills will not be provided in most instances. Narcotic pain medications cannot be called in. [facility] Ambulatory Surgery and Procedure Center [...] Your doctor is: Dr. Emily Shaikh, Ophthalmology: [phone] dial [phone] and ask for the resident contour sander for: {[facility] Emergency Department: [phone] (TTY for hearing impaired: [phone]) IMEDIA ENGINEER documented in this encounter Medications at Time [...] room in stable condition. Emily Shaikh MD IMEDIA ENGINEER Brief Op Note - Curtis Livingston MD - 03/02/2017 9:50 AM MULTIMEDIA ENGINEER [facility] Brief Operative Note Pre-operative diagnosis: Rule Out Arteritis Post-operative diagnosis Same Procedure: Procedure(s): Right Temporal Artery Biopsy - Wound Class: I-Clean, Surgeon: Emily Shaikh MD Mincing Machine Operator(s): Umm Pablo MD; Curtis Sharif MD Estimated blood loss: < 10 mL Specimens: None Findings: Consistent with diagnosis IMEDIA ENGINEER documented in this encounter Plan of Treatment Not on filedocumented as of this encounter Procedures Procedure Name Priority Date/Time Associated Diagnosis Comme nts SURGICAL PATHOLOGY Routine 03/02/2017 9:36 AM Res ults for this EXAM MULTIMEDIA ENGINEER procedure are i n the results section. BIOPSY, ARTERY, 03/02/2017 9:05 AM Rule Out Arteritis TEMPORAL MULTIMEDIA ENGINEER GLUCOSE BY METER Routine 03/02/2017 8:09 AM Post-operative sta te Results for this MULTIMEDIA ENGINEER procedure are i n the results section. documented in this encounter Results Surgical pathology exam (03/02/2017 9:36 AM MULTIMEDIA ENGINEER) Component Value Ref Test Analysis Performed Pathologis t Range Method Time At Signature Copath Patient Name: CORBY MOJICA Report MR#: [id number] Specimen #: [id number] Collected: 03/02/2017 Received: 03/02/2017 [...] Electronically signed out by: Angely Montoya M.D., [facility] CLINICAL HISTORY: The patient is [...] in cassette A1. (Dictated by: Suzette PEDERSEN [facility] 03/02/2017 10:19 AM) MICROSCOPIC: The tissue consists [...] active inflammation is identified. CPT Codes: A: 76569-PD6, 87063-PTNJ TESTING LAB LOCATION: [facility], [address] ?? [address] COLLECTION SITE: Client: [facility] Location: [facility] [place] Specimen (Source) Anatomical Collection Method Collection Time Re ceived Time Location / / Volume Laterality Specimen from STRUCTURE OF 03/02/2017 9:36 unspecified body SUPERFICIAL AM MULTIMEDIA ENGINEER site obtained by TEMPORAL ARTERY / biopsy (specimen) Unknown Narrative This result has an attachment that is no t available. Emily WOODS - SELINA JESSICA Performing Organization Address City/State/ZIP Code Phon e Number COPATH (ABNORMAL) Glucose by meter (03/02/2017 8:09 AM MULTIMEDIA ENGINEER) P athologist Signature Glucose 188 (H) 70 - 99 03/02/2017 POINT OF CARE mg/dL 8:15 AM MULTIMEDIA ENGINEER TEST, GLUCOSE Specimen Anatomical Collection Method Collection Time Receive d Time (Source) Location / / Volume Laterality 03/02/2017 8:09 AM 8 8:15 MULTIMEDIA ENGINEER AM MULTIMEDIA ENGINEER Emily WOODS - SELINA POCT Performing Organization [...] (TYLENOL) tablet 975 Given 03/02/2017 8:10 AM MULTIMEDIA ENGINEER 975 mg mg 975 mg, Oral, ONCE, On Sun03/02/17 at 0730, For 1 dose, Maximum acetaminophen dose from all sources = 75 mg/kg/day not to exceed 4 grams/day., Pre-procedure lactated ringers infusion New Bag 03/02/2017 8:10 AM MULTIMEDIA ENGINEER 25 mL/hr at 25 mL/hr, Intravenous, CONTINUOUS, IF patient NOT on dialysis., Pre-procedure, Starting on Sun03/02/17 at 0745, Until Sun03/02/17 at 0947 documented in this encounter Care Teams Manager Sterile Relationship Specialty Start Date End Date [place], [facility] PCP - General 01/19/17 [place] [address] documented as of this encounter
--- OUTSIDE RECORDS SUMMARY | 2021-12-29 15:50 | XMS_ITS | Encounter Summary ---
:1945 Author Organization [place] Address [address] [facility] [place] [address] Care Team Providers Name Role Phone Vian, [facility] Primary Care Provider [phone] Reason for Visit Reason Onset Date Comments Patient Request 03/06/2017 Encounter Details Date Type Department Care Team Description 03/06/2017 Telephone [facility] Eye Gautam Landrum Patient Request Clinic - Gustavo Valencia MD [id number] [place] [address] [facility] [place] [phone] Social History Tobacco Use Types Packs/Day [...] 1615 Campbell Frazier RN 4:33 PM 03/06/17 RETE INSPECTOR Telephone Encounter - Campbell Frazier RN - 03/06/2017 2:56 PM CST calling as middle person to pt who was on her other line Asked if could talk to her /pt and provided the [phone] number. Asked to tell pt I will be calling in 30 seconds Called 3 times-- no answer and left voicemail with direct number Campbell Frazier RN 3:00 PM 03/06/17 RETE INSPECTOR documented in this encounter Plan of Treatment Not on filedocumented as of this encounter Visit Diagnoses Not on filedocumented in this encounter Care Teams Coding Spec Relationship Specialty Start Date End Date Center, [facility] PCP - General 01/19/17 [address] [place], [place] [id number] documented as of this encounter
--- OUTSIDE RECORDS SUMMARY | 2021-12-29 15:50 | XMS_ITS | Encounter Summary ---
:1945 Author Organization [place] Address [address] [facility] [place] [address] Care Team Providers Name Role Phone [facility] Primary Care Provider [phone] Encounter Details Date Type Department Care Team Description 03/05/2017 Orders Only [facility] Eye Gautam Landrum Giant cell arteritis Clinic [facility] MD Erik (H) (Primary Dx) [place] [address] [place] [address] Social History Tobacco Use Types [...] arteritis documented in this encounter Care Teams Beef Trimmer Relationship Specialty Start Date End Date [facility] PCP - General 01/19/17 One [place], [place] [address] documented as of this encounter
--- OUTSIDE RECORDS SUMMARY | 2021-12-29 15:50 | XMS_ITS | Clinical Summary ---
:1945 Author Organization [place] Address [facility] [place] [address] Care Team Providers Name Role Phone [facility] Primary Care Provider [phone] Allergies No known active allergies Medications Medication [...] Comments Blood Pressure 117/67 03/02/2017 9:56 AM WAREHOUSE ATTENDANT Pulse 67 03/02/2017 7:41 AM WAREHOUSE ATTENDANT Temperature 36.7 ??C (98 ??F) 03/02/2017 9:56 AM WAREHOUSE ATTENDANT Respiratory Rate 16 03/02/2017 9:56 AM WAREHOUSE ATTENDANT Oxygen Saturation 96% 03/02/2017 9:56 AM WAREHOUSE ATTENDANT Inhaled Oxygen Concentration - - Weight 93 kg (205 lb) 03/02/2017 7:41 AM WAREHOUSE ATTENDANT Height 185.4 cm (6' 1) 03/02/2017 7:41 AM WAREHOUSE ATTENDANT Body Mass Index 27.05 03/02/2017 7:41 AM WAREHOUSE ATTENDANT Plan of Treatment Not on file Insurance Payer Benefit Plan Subscriber ID Effective Phone Address Typ e / Group Dates [employer] [id number] 1995-Prese [phone] VHA OFFICE O [facility] nt [address] [facility] [address] [address] [place] [address] (Home) [place] [phone] RACHEL MURRIETA (Work) [id number] Corby Perry Personal/Family Self [address] (Home) [place] [id number] Corby Perry Other Self [address] (Home) [place] [phone] RACHEL MURRIETA (Work) [id number] Corby Perry Other Self [address] (Home) [place] [address] Care Teams Air Transportation Provider Relationship Specialty Start Date [facility] - [facility]17 One [place], [place] [id number]
--- OUTSIDE RECORDS SUMMARY | 2021-12-29 15:50 | XMS_ITS | Encounter Summary ---
:1945 Author Organization [place] Address [address] [facility] [place] [address] Care Team Providers Name Role Phone [facility] Primary Care Provider [phone] Encounter Details Date Type Department Care Team Description 03/06/2017 Orders Only [facility] Eye Gautam Landrum Giant cell arteritis Clinic [facility] MD Erik (H) (Primary Dx) [place] [address] [place] [address] Social History Tobacco Use Types [...] arteritis documented in this encounter Care Teams Sheather Relationship Specialty Start Date End Date [facility] PCP - General 01/19/17 One [place], [place] [id number] documented as of this encounter
--- OUTSIDE RECORDS SUMMARY | 2021-12-29 15:50 | XMS_ITS | Encounter Summary ---
:1945 Author Organization [place] Address [facility] 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 He does have f/u [...] patient and family. - Emily Shaikh MD SMITTER TESTER documented in this encounter Nursing Notes Bhupendra [...] Jung COT 2:45 PM March 20, 2017 SMITTER TESTER documented in this encounter Plan of Treatment Not on filedocumented as of this encounter Visit Diagnoses Diagnosis Giant cell arteritis (H) - Primary Giant cell arteritis documented in this encounter Care Teams Paper Coater Relationship Specialty Start Date End Date [facility] PCP - General 01/19/17 [place] [address] documented as of this encounter
--- OUTSIDE RECORDS SUMMARY | 2021-12-29 15:50 | XMS_ITS | Encounter Summary ---
:1945 Author Organization [place] Address [address] [place] [address]. [place] [address] Care Team Providers Name Role Phone [facility] Primary Care Provider [phone] Encounter Details Date Type Department Care Team Description 03/02/2017 Surgery [facility] Surgery and Emily Shaikh R ighgloria Temporal Artery Procedure Center Biopsy [address] [place] [address] 5th [place] [address] [phone] Surgery Details Date/Time Status Location OR Service [...] Comments Blood Pressure 117/67 03/02/2017 9:56 AM SHIP PROPELLER FINISHER Pulse 67 03/02/2017 7:41 AM SHIP PROPELLER FINISHER Temperature 36.7 ??C (98 ??F) 03/02/2017 9:56 AM SHIP PROPELLER FINISHER Respiratory Rate 16 03/02/2017 9:56 AM SHIP PROPELLER FINISHER Oxygen Saturation 96% 03/02/2017 9:56 AM SHIP PROPELLER FINISHER Inhaled Oxygen Concentration - - Weight 93 kg (205 lb) 03/02/2017 7:41 AM SHIP PROPELLER FINISHER Height 185.4 cm (6' 1) 03/02/2017 7:41 AM SHIP PROPELLER FINISHER Body Mass Index 27.05 03/02/2017 7:41 AM SHIP PROPELLER FINISHER documented in this encounter Discharge Instructions Discharge Instructionsde Curtis Sauceda MD - 03/02/2017 9:51 AM SHIP PROPELLER FINISHER Post-operative Instructions Ophthalmic Plastic and Reconstructive Surgery [...] stopped using narcotic pain medications (such as [place], Percocet, Tylenol #3). Medications ? Restart all your regular home medications and eye drops. If you take Plavix or Aspirin on a regular basis, wait for 72 hours after your surgery before restarting these in order todecrease the risk of bleeding complications. ? Avoid aspirin and aspirin-like medications (Motrin, Aleve, Ibuprofen, Giovana- [place] etc) for 72 hours to reduce the [...] 6 tablets of Darvocet, 12 tablets of [place], Percocet or Tylenol #3. If you take other lhnk-xkp-xjoiqrf medications containing acetaminophen, you must take the [...] If no appointment has been scheduled: - [facility] eye clinic: [phone] for an appointment with Dr. Shaikh within 1 to 2 weeks from your date of surgery. - [facility] eye clinic: [phone] for an appointment with Dr. Shaikh within 1 to2 weeks from your date of surgery. ? For severe pain, bleeding, or loss of vision, call the [facility] Clinic at [phone] or [facility] Clinic at [phone]. After hours or on weekends and holidays, call [phone] and ask to speak with the ophthalmologiston call. An aeronautical engineering professorcall or contact centre operator can be reached after hours for concerns. The aeronautical engineering professor doctor should not call in medication refill requests after hours or on weekends, so please plan accordingly. An effort has been made to provide adequate pain medications following every surgery, and refills will not be provided in most instances. Narcotic pain medications cannot be called in. [facility] Ambulatory Surgery and Procedure Center [...] Your doctor is: Dr. Emily Shaikh, Ophthalmology: [phone] dial [phone] and ask for the resident aeronautical engineering professor for: {[facility] Emergency Department: [phone] (TTY for hearing impaired: [phone]) PROPELLER FINISHER documented in this encounter Medications at Time [...] room in stable condition. Emily Shaikh MD PROPELLER FINISHER Brief Op Note - Curtis Livingston MD - 03/02/2017 9:50 AM SHIP PROPELLER FINISHER [facility] Brief Operative Note Pre-operative diagnosis: Rule Out Arteritis Post-operative diagnosis Same Procedure: Procedure(s): Right Temporal Artery Biopsy - Wound Class: I-Clean, Surgeon: Emily Shaikh MD Psychiatric Specialist(s): Umm Pablo MD; Curtis Sharif MD Estimated blood loss: < 10 mL Specimens: None Findings: Consistent with diagnosis PROPELLER FINISHER documented in this encounter Plan of Treatment Not on filedocumented as of this encounter Procedures Procedure Name Priority Date/Time Associated Diagnosis Comme nts SURGICAL PATHOLOGY Routine 03/02/2017 9:36 AM Res ults for this EXAM SHIP PROPELLER FINISHER procedure are i n the results section. BIOPSY, ARTERY, 03/02/2017 9:05 AM Rule Out Arteritis TEMPORAL SHIP PROPELLER FINISHER GLUCOSE BY METER Routine 03/02/2017 8:09 AM Post-operative sta te Results for this SHIP PROPELLER FINISHER procedure are i n the results section. documented in this encounter Results Surgical pathology exam (03/02/2017 9:36 AM SHIP PROPELLER FINISHER) Component Value Ref Test Analysis Performed Pathologis t Range Method Time At Signature Copath Patient Name: CORBY MOJICA Report MR#: [id number] Specimen #: [id number] Collected: 03/02/2017 Received: 03/02/2017 [...] Electronically signed out by: Angely Montoya M.D., [facility] CLINICAL HISTORY: The patient [...] cassette A1. (Dictated by: Suzette PEDERSEN [facility] 03/02/2017 10:19 AM) MICROSCOPIC: The [...] active inflammation is identified. CPT Codes: A: 63816-ZF4, 51666-BXQV TESTING LAB LOCATION: [facility], [address] ?? [address] COLLECTION SITE: Client: [facility] Location: [facility] (B) Specimen (Source) Anatomical Collection Method Collection Time Re ceived Time Location / / Volume Laterality Specimen from STRUCTURE OF 03/02/2017 9:36 unspecified body SUPERFICIAL AM SHIP PROPELLER FINISHER site obtained by TEMPORAL ARTERY / biopsy (specimen) Unknown Narrative This result has an attachment that is no t available. Emily WOODS - BEAKER AP Performing Organization Address City/State/ZIP Code Phon e Number COPATH (ABNORMAL) Glucose by meter (03/02/2017 8:09 AM SHIP PROPELLER FINISHER) P athologist Signature Glucose 188 (H) 70 - 99 03/02/2017 POINT OF CARE mg/dL 8:15 AM SHIP PROPELLER FINISHER TEST, GLUCOSE Specimen Anatomical Collection Method Collection Time Receive d Time (Source) Location / / Volume Laterality 03/02/2017 8:09 AM 8 8:15 SHIP PROPELLER FINISHER AM SHIP PROPELLER FINISHER Emily MARKS POCT Performing Organization Address City/State/ZIP Code Phon e Number FV POINT OF CARE TEST, GLUCOSE POINT OF CARE TEST, GLUCOSE documented in this encounter Visit Diagnoses Not on filedocumented in this encounter Administered Medications Inactive Administered Medications - up to 3 most recent administrations Medication Order MAR Action Action Date Dose Rate Site acetaminophen (TYLENOL) tablet 975 Given 03/02/2017 8:10 AM SHIP PROPELLER FINISHER 975 mg mg 975 mg, Oral, ONCE, On Sun03/02/17 at 0730, For 1 dose, Maximum acetaminophen dose from all sources = 75 mg/kg/day not to exceed 4 grams/day., Pre-procedure bupivacaine 0.5% - 30 mL, Given 03/02/2017 9:14 AM 4 mLs Operative Site/Surgical lidocaine 2% w/EPINEPHrine SHIP PROPELLER FINISHER Site 1:100,000 30 mL PRN, Starting on Sun03/02/17 at 0914, Intra-procedure erythromycin (ROMYCIN) Given 03/02/2017 9:40 AM 1 inch Operative Site/Surgical ophthalmic ointment SHIP PROPELLER FINISHER Site PRN, Starting on Sun03/02/17 at 0940, Intra-procedure lactated ringers infusion New Bag 03/02/2017 8:10 AM SHIP PROPELLER FINISHER 25 mL/hr at 25 mL/hr, Intravenous, CONTINUOUS, IF patient NOT on dialysis., Pre-procedure, Starting on Sun03/02/17 at 0745, Until Sun03/02/17 at 0947 documented in this encounter Care Teams Driver'S Education Instructor Relationship Specialty Start Date End Date [place], [facility] PCP - General 01/19/17 [place] [address] documented as of this encounter
--- OUTSIDE RECORDS SUMMARY | 2021-12-29 15:51 | XMS_ITS | Clinical Summary ---
:1945 Author Organization [email or web address] [facility] [place] [address] Care Team Providers Name Role Phone Giselle Martinez MD Primary Care Provider [phone] Allergies Active Allergy Reactions Severity Noted [...] mL liquid 2 times daily. saliva stimulant [place] 1-2 sprays in 0 Active comb. no.3 (Biotene mouth every hour as Moisturizing Mouth) needed for dry mouth spry ergocalciferol Take 50,000 units by 0 Active (VITAMIN D2; DRISDOL) mouth every 4 weeks. 50,000 unit capsule fluticasone (50 mcg Inhale 1 [place] into 0 Active per actuation) nasal affected [...] % Apply to teeth. 0 Active pste [place] small amount by mouth every morning and [...] 09/01/2021 Active equipment SHOE, EDWIN, REF: (DME)Indications: [id number] Diabetic ulcer of right midfoot associated with type 2 diabetes mellitus, with fat layer exposed (HC), Follow-up examination after orthopedic surgery, Dehiscence of operative wound, initial encounter durable medical SQUARED TOE POST OP 1 Each 0 10/13/2021 Active equipment SHOE EDWIN, REF: (DME)Indications: [phone] Diabetic ulcer of right midfoot associated with [...] Encounters Date Type Specialty Care Team Description 12/25/2021 Lab Requisition Pratima Marrero, EMERGENCY DEPARTMENT PHYSICIAN 12/14/2021 Telephone Obdulio Copeland Questio ns (Wound Care) DPM 12/08/2021 Telephone Obdulio Copeland, Form (R ecords about DPM imaging and wou nd related) 12/07/2021 Telephone Obdulio Copeland, FYI (Wo und care ) DPM 12/01/2021 Office Visit Obdulio Copeland, Follow Up (Right diabetic DPM ulcer check) 12/01/2021 Travel 11/24/2021 Office Visit Obdulio Copeland, Follow Up (Right diabetic DPM ulcer check) 11/24/2021 Travel 11/17/2021 Office Visit Obdulio Copeland, Follow Up (Right foot/) DPM 11/17/2021 Travel 11/10/2021 Office Visit Obdulio Copeland, Ulcer ( Follow up-right DPM foot) 11/10/2021 Travel 10/27/2021 Office Visit Obdulio Copeland, [...] (Right foot DPM diabetic ulcer) 09/29/2021 Travel from Last 3 Months Immunizations Name Administration Dates Next Due COVID-19 vaccine (Hyperformix 12/02/2020, 04/09/2020, 30mcg/0.3mL) PF, MDV Influenza Virus, [...] a pack per week for 6 m onths at age 19 Alcohol Use Standard Drinks/Week [...] Encounters Date Type Specialty Care Team Description 01/19/2022 Office Visit Molina Copeland, DPM [address] [place], [place] [address] (Wo rk) Health Maintenance Due [...] for age Completed 04/19/2018, , 50+ 02/11/2008 Procedures Procedure Name Priority Date/Time Associated Diagnosis Comme nts REFERRAL Routine 12/23/2021 5:00 PM Results f or this ID/SUSC,NONURINE CDT procedure a re in the results section. from Last 3 Months Results (ABNORMAL) REFERRAL ID/SUSC,NONURINE (12/23/2021 5:00 PM CDT) [facility] Method Time Signature CULTURE RESULT (A) 12/27/2021 [facility] 9:13 AM LAG SCREWER LABORATORY-CE NTRAL LABORATORY CULTURE Beta 12/27/2021 [facility] Total Immersion Streptococcus 9:13 AM LAG SCREWER LABORATORY-CE Group A NTRAL LABORATORY Comment: This isolate is presumed to be clindamycin resistant based on detection of inducible clindamycin resistance. Clinda mycin still may be effective in some patients. Specimen Anatomical Collection Method Collection Time Receive d Time (Source) Location / / Volume Laterality Other (Right Client Collect / 12/23/2021 5:00 PM 12/25 3:53 foot) Unknown CDT PM LAG SCREWER Organism Antibiotic Method Susceptibility Beta Streptococcus Group A PENICILLIN <=0.0 6: S Beta Streptococcus Group A CEFTRIAXONE <=0.1 2: S Beta Streptococcus Group A ERYTHROMYCIN >=8: R Beta Streptococcus Group A CLINDAMYCIN R Beta Streptococcus Group A VANCOMYCIN 0.25: S Beta Streptococcus Group A AMPICILLIN <=0.2 5: S Beta Streptococcus Group A CLARITHROMYCIN R Pratima Marrero NP MICROBIOLOGY Performing Organization Address City/State/ZIP Code Phon e Number [facility] [address] [place] [address] LABORATORY-CENTRAL 2000 LABORATORY from Last 3 Months Insurance Payer Benefit Plan / Subscriber ID Effective Phone Address T ype Group Dates MEDICARE PART A - HB MEDICARE PART [id number] 2007-Prese ATTN: CLAIMS USE ONLY A HB ONLY nt [address] [facility] [place] [address] [employer] [place] [id number] 2019-Pres [place] CC[place] [employer] ent [address] [place] [address] (Home) [place] [id number] Advance Directives Latest Code Status on File Code Status Date Activated Date Inactivated Comments Full Code 06/13/2021 2:07 PM 06/16/2021 2:09 PM Code Status Discussion: Reviewed Preferences Full Code 06/13/2021 9:22 AM 06/13/2021 2:07 PM Code Status Discussion: Reviewed Preferences Care Teams Animal Daycare Provider Relationship Specialty Start Date End Date Giselle Martinez MD PCP - General Internal Medicine 04/13/21 1 [employer] [place] [id number]
--- OUTSIDE RECORDS SUMMARY | 2021-12-29 15:51 | XMS_ITS | Encounter Summary ---
:1945 Author Organization [place] Address [facility] [place] [address] Care Team Providers Name Role Phone [facility] Primary Care Provider [phone] Encounter Details Date Type Department Care Team Description 02/23/2017 Orders Only M Karon Ophthalmolo Emily Ravi, Subjective visual [address] [facility] disturbance (Primary 4th Floor [address] [facility] [address] Dx) [place] [address] [phone] Social History Tobacco Use Types Packs/Day Years [...] ed documented in this encounter Care Teams Business Office Technician Relationship Specialty Start Date End Date [facility] PCP - General 01/19/17 One [place], [place] [address] documented as of this encounter
--- OUTSIDE RECORDS SUMMARY | 2021-12-29 15:51 | XMS_ITS | Encounter Summary ---
:1945 Author Organization [place] Address [facility] [place] [address] Care Team Providers Name Role Phone [facility] Primary Care Provider Encounter Details Date Type Department Care Team Description 02/28/2017 Orders Only [facility] Preop general physical [address] [facility] [address] exam 1st Floor [place], [place] [phone] Social History Tobacco Use [...] Preop general Resul ts for this PANEL FREIGHT TALLIER physical exam procedure are in the results section. CBC WITH PLATELETS Routine 02/28/2017 3:10 PM Preop general Re sults for this FREIGHT TALLIER physical exam procedure are in the results section. documented in this encounter Results (ABNORMAL) CBC with platelets (02/28/2017 3:10 PM FREIGHT TALLIER) [facility] Method Time Signature WBC 6.3 4.0 - 11.0 02/28/2017 [facility] 10e9/L 3:44 PM [facility] RBC Count 5.13 4.4 - 5.9 02/28/2017 [facility] 10e12/L 3:44 PM [facility] Hemoglobin 13.9 13.3 - 02/28/2017 [facility] 17.7 g/dL 3:44 PM [facility] Hematocrit 44.2 40.0 - 02/28/2017 [facility] 53.0 % 3:44 PM [facility] MCV 86 78 - 100 02/28/2017 [facility] fl 3:44 PM [facility] MCH 27.1 26.5 - 02/28/2017 [facility] 33.0 pg 3:44 PM [facility] MCHC 31.4 (L) 31.5 - 02/28/2017 [facility] 36.5 g/dL 3:44 PM [facility] RDW 13.9 10.0 - 02/28/2017 [facility] 15.0 % 3:44 PM [facility] Platelet Count 253 150 - 450 02/28/2017 [facility] 10e9/L 3:44 PM [facility] Specimen Anatomical Collection Method Collection Time Receive d Time (Source) Location / / Volume Laterality Blood specimen 02/28/2017 3:10 PM 018 3:13 (specimen) FREIGHT TALLIER PM FRE[facility] T[facility]IER Estela Ruth APRN SAP PI DEVELOPER LAB - BLOOD ORDERABLES Performing Organization Address City/State/ZIP Code Phon e Number [address] [address] [facility] (ABNORMAL) Basic metabolic panel (02/28/2017 3:10 PM [facility]) [facility] Method Time Signature Sodium 135 133 - 144 02/28/2017 [facility] mmol/L 4:01 PM [facility] Potassium 4.2 3.4 - 5.3 02/28/2017 [facility] mmol/L 4:01 PM [facility] Chloride 99 94 - 109 02/28/2017 [facility] mmol/L 4:01 PM [facility] Carbon Dioxide 32 20 - 32 02/28/2017 [facility] mmol/L 4:01 PM [facility] Anion Gap 5 3 - 14 02/28/2017 [facility] mmol/L 4:01 PM [facility] Glucose 219 (H) 70 - 99 02/28/2017 [facility] mg/dL 4:01 PM [facility] Urea Nitrogen 14 7 - 30 02/28/2017 [facility] mg/dL 4:01 PM [facility] Creatinine 0.56 (L) 0.66 - 02/28/2017 [facility] 1.25 mg/dL 4:01 PM [facility] GFR Estimate >90 >60 02/28/2017 [facility] OF mL/min/1.7 4:[address] Comment: Non GFR Calc GFR Estimate If >90 >60 mL/min/1.7m2 02/28/2017 4:01 P M [facility] Black [facility] Comment: GFR Calc Calcium 8.8 8.5 - 10.1 mg/dL 02/28/2017 4:01 PM [facility] Specimen Anatomical Collection Method Collection Time Receive d Time (Source) Location / / Volume Laterality Blood specimen 02/28/2017 3:10 PM 018 3:13 (specimen) F[place] PM FRE[facility] TALLIER Estela Ruth APRN SAP PI DEVELOPER LAB - BLOOD ORDERABLES Performing Organization Address City/State/ZIP Code Phon e Number [address] [phone] [facility] documented in this encounter Visit Diagnoses Diagnosis Preop general physical exam Other specified pre-operative examinatio n documented in this encounter Care Teams Oxidation Operator Relationship Specialty Start Date End Date [facility] PCP - General 01/19/17 One [place], [place] [phone] documented as of this encounter
--- OUTSIDE RECORDS SUMMARY | 2021-12-29 15:51 | XMS_ITS | Encounter Summary ---
:1945 Author Organization [place] Address [address] [place] [address]. [place] [address] Care Team Providers Name Role Phone [facility] Primary Care Provider [phone] Encounter Details Date Type Department Care Team Description 01/10/2017 Medical Correspondence [facility] Scan, REFERRAL ORDER Health Info Mgmt Non-Provider [facility] Sr[address] [place] [address] Social History Tobacco Use Types Packs/Day Years Used Date Smoking Tobacco: Never Assessed Sex Assigned at Date Recorded Not on file documented as of this encounter Plan of Treatment Not on filedocumented as of this encounter Visit Diagnoses Not on filedocumented in this encounter Care Teams Environmental Research Scientist Relationship Specialty Start Date End Date [facility] PCP - General 01/19/17 One [place], [place] [address] documented as of this encounter
--- OUTSIDE RECORDS SUMMARY | 2021-12-29 15:51 | XMS_ITS | Encounter Summary ---
:1945 Author Organization [place] Address [facility] 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 right eye CRP INFLAMMATION Routine 02/23/2017 11:43 NAION Results for this AM LABOR[facility] LANDSCAPE (non-arteritic procedure are in anterior ischemic the result s optic neuropathy), section. right eye documented in this encounter Results (ABNORMAL) CRP inflammation (02/23/2017 11:43 AM LABOR[facility] LANDSCAPE) [facility] Method Time Signature CRP Inflammation 9.2 (H) 0.0 - 8.0 02/23/2017 [facility] F mg/L 12:06 PM LABORER LANDSCAPE [facility] SURGERY RACINE Specimen Anatomical Collection Method Collection Time Receive d Time (Source) Location / / Volume Laterality Blood specimen 02/23/2017 11:43 8 (specimen) AM LABOR[facility] LANDSCAPE 11:44 AM LABORER LANDSCAPE Gautam Landrum MD LAB - BLOOD ORDERABLES Performing Organization Address City/[facility]/ZIP Code Phon e Number [address] [address] [facility] Erythrocyte sedimentation rate auto (02/23/2017 11:43 AM LABORER LANDSCAPE) P athologist Signature Sed Rate 14 0 - 20 mm/h 02/23/2017 [facility]ITY 1:02 PM [facility]SCAPE [facility] Specimen Anatomical Collection Method Collection Time Receive d Time (Source) Location / / Volume Laterality Blood specimen 02/23/2017 11:43 8 (specimen) AM [facility]OR[facility]SCAPE 11:44 AM LABOR[facility] L[facility]SCAPE Gautam Landrum MD LAB - BLOOD ORDERABLES Performing Organization Address City/[facility]/ZIP Code Phon e Number [address] [address] [facility] documented in this encounter Visit Diagnoses Diagnosis 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
--- OUTSIDE RECORDS SUMMARY | 2021-12-29 15:51 | XMS_ITS | Encounter Summary ---
:1945 Author Organization [place] Address [facility] [place] [address] Care Team Providers Name Role Phone [place], [facility] Primary Care Provider [phone] Reason for Visit Reason Comments Pre-Op Exam Encounter Details Date Type Department Care Team Description 02/28/2017 Office Visit [facility] Preoperative 7, Pac Javan Preop general physical Assessment Center exam (Primary Dx) [address] [facility] [address] 5th [place] [address] Anesthesia Record Procedure Summary Procedure [...] Comments Blood Pressure 166/78 02/28/2017 1:48 PM FISHERIES TECHNICIAN Pulse 75 02/28/2017 1:48 PM FISHERIES TECHNICIAN Temperature 36.6 ??C (97.8 ??F) 02/28/2017 1:48 PM FISHERIES TECHNICIAN Respiratory Rate 16 02/28/2017 1:48 PM FISHERIES TECHNICIAN Oxygen Saturation 96% 02/28/2017 1:48 PM FISHERIES TECHNICIAN Inhaled Oxygen Concentration - - Weight 109.7 kg (241 lb 14.4 oz) 02/28/2017 1:48 PM FISHERIES TECHNICIAN Height 185.4 cm (6' 1) 02/28/2017 1:48 PM FISHERIES TECHNICIAN Body Mass Index 31.91 02/28/2017 1:48 PM FISHERIES TECHNICIAN documented in this encounter H&P Notes Estela Ruth, MARTIN NOTE TELLER - 02/28/2017 1:00 PM CST Images from the original note were not included. Pre-Operative H & P CC: Preoperative exam to assess for increased cardiopulmonary risk while undergoing surgery and anesthesia. Date of Encounter: 02/28/2017 Primary Care Physician: [place], [facility] Corby Mojica is a 71 year old male who presents for pre-operative H & P in preparation for Right Temporal Artery Biopsy with Dr. Shaikh on 03/02/17 at [facility] Clinics and Surgery [place]. History is obtained from the patient. Evaluation [...] Dr Garduno. MARTIN Adkins Preoperative Assessment Center [facility] ERIES TECHNICIAN documented in this encounter Plan of Treatment Not on filedocumented as of this encounter Procedures Procedure Name Priority Date/Time Associated Diagnosis Comme nts EKG 12-LEAD Routine 02/28/2017 3:20 PM Preop general Results for this COMPLETE W/READ - FISHERIES TECHNICIAN physical exam procedure are in CLINICS the results section. EKG CARDIAC - HIM 02/28/2017 12:00 AM SCAN FISHERIES TECHNICIAN documented in this encounter Results EKG 12-lead complete w/read - Clinics (02/28/2017 3:20 PM FISHERIES TECHNICIAN) [facility] Method Time Signature Interpretation ECG Click View RADIOLOGY Image link RESULTS to view waveform and result Specimen (Source) Anatomical Collection Method Collection Time Re ceived Time Location / / Volume Laterality 02/28/2017 3:20 PM FISHERIES TECHNICIAN Estela Ruth APRN TELEVISION REPAIRER ECG ORDERABLES Performing Organization Address City/[facility]/ZIP Code Phon e Number RADIOLOGY RESULTS (ABNORMAL) CBC with platelets (02/28/2017 3:10 PM FISHERIES TECHNICIAN) [facility] Method Time Signature WBC 6.3 4.0 - 11.0 02/28/2017 [facility] 10e9/L 3:44 PM [facility] RBC Count 5.13 4.4 - 5.9 02/28/2017 [facility] 10e12/L 3:44 PM [facility] Hemoglobin 13.9 13.3 - 02/28/2017 [facility] 17.7 g/dL 3:44 PM [facility] Hematocrit 44.2 40.0 - 02/28/2017 [facility] 53.0 % 3:44 PM [facility] MCV 86 78 - 100 02/28/2017 [facility] fl 3:44 PM [facility] MCH 27.1 26.5 - 02/28/2017 [facility] 33.0 pg 3:44 PM [facility] MCHC 31.4 (L) 31.5 - 02/28/2017 [facility] 36.5 g/dL 3:44 PM [facility] RDW 13.9 10.0 - 02/28/2017 [facility] 15.0 % 3:44 PM [facility] Platelet Count 253 150 - 450 02/28/2017 [facility] 10e9/L 3:44 PM [facility] Specimen Anatomical Collection Method Collection Time Receive d Time (Source) Location / / Volume Laterality Blood specimen 02/28/2017 3:10 PM 018 3:13 (specimen) FISHERIES TECHNICIAN PM FISHERIES TECHNICIAN Estela Ruth APRN TELEVISION REPAIRER LAB - BLOOD ORDERABLES Performing Organization Address City/[facility]/[place] [address] [facility] (ABNORMAL) Basic metabolic panel (02/28/2017 3:10 PM [facility]) [facility] Method Time Signature Sodium 135 133 - 144 02/28/2017 [facility] mmol/L 4:01 PM [facility] Potassium 4.2 3.4 - 5.3 02/28/2017 [facility] mmol/L 4:01 PM [facility] Chloride 99 94 - 109 02/28/2017 [facility] mmol/L 4:01 PM [facility] Carbon Dioxide 32 20 - 32 02/28/2017 [facility] mmol/L 4:01 PM [facility] Anion Gap 5 3 - 14 02/28/2017 [facility] mmol/L 4:01 PM [facility] Glucose 219 (H) 70 - 99 02/28/2017 [facility] mg/dL 4:01 PM [facility] Urea Nitrogen 14 7 - 30 02/28/2017 [facility] mg/dL 4:01 PM [facility] Creatinine 0.56 (L) 0.66 - 02/28/2017 [facility] 1.25 mg/dL 4:01 PM [facility] GFR Estimate >90 >60 02/28/2017 [facility] mL/min/1.7 4:[address] Comment: Non GFR Calc GFR Estimate If >90 >60 mL/min/1.7m2 02/28/2017 4:01 P M [facility] OF Black [facility] Comment: GFR Calc Calcium 8.8 8.5 - 10.1 mg/dL 02/28/2017 4:01 PM [facility] Specimen Anatomical Collection Method Collection Time Receive d Time (Source) Location / / Volume Laterality Blood specimen 02/28/2017 3:10 PM 018 3:13 (specimen) FISHERIES TECHNICIAN PM [facility] Estela Ruth APRN TELEVISION REPAIRER LAB - BLOOD ORDERABLES Performing Organization Address City/[facility]/[place] [address] [facility] EKG CARDIAC - HIM SCAN (02/28/2017 12:00 AM FISHERIES TECHNICIAN) Specimen (Source) Anatomical Location Collection Method / Collectio n Time Received Time / Laterality Volume 02/28/2017 Narrative This result has an attachment that is no t available. Provider Scan ECG ORDERABLES documented in this encounter Visit Diagnoses Diagnosis Preop general physical exam - Primary Other specified pre-operative examinatio n documented in this encounter Care Teams Clerical Order Filler Relationship Specialty Start Date End Date [facility] PCP - General 01/19/17 [place] [address] documented as of this encounter
--- OUTSIDE RECORDS SUMMARY | 2021-12-29 15:51 | XMS_ITS | Encounter Summary ---
:1945 Author Organization [place] Address [address] [place] [address] Care Team Providers Name Role Phone [place], [facility] Primary Care Provider [phone] Encounter Details Date Type Department Care Team Description 02/23/2017 Orders Only [facility] Eye Gautam Landrum Subjective visual disturbance (Primary Dx); Clinic - Gustavo Valencia MD Diplopia [address] [place] [address] Social History Tobacco Use Types [...] ual Results for this SPECTRALIS OU (BOTH INDEPENDENT JEWELER disturbance procedure are in EYES) Diplopia the results section. GLAUCOMA TOP OU Routine 03/05/2017 3:23 PM Subjective visual R esults for this INDEPENDENT JEWELER disturbance procedure are in Diplopia the results section. SENSORIMOTOR Routine 03/05/2017 3:22 PM Diplopia Results for this INDEPENDENT JEWELER Subjective visual procedure are in disturbance the results section. documented in this encounter Results OCT Optic Nerve RNFL Spectralis OU (both eyes) (03/05/2017 3:24 PM INDEPENDENT JEWELER) Narrative Gautam Landrum MD - 01/15/2 018 3:24 PM INDEPENDENT JEWELER Performed by: tfw . Right Eye Reliability [...] OPHTHALMOLOGY Glaucoma Top OU (03/05/2017 3:23 PM INDEPENDENT JEWELER) Narrative Gautam Landrum MD - 018 3:23 PM INDEPENDENT JEWELER Performed by: BD . Patient cooperation: Reliable [...] Landrum MD OPHTHALMOLOGY Sensorimotor (03/05/2017 3:22 PM INDEPENDENT JEWELER) Narrative Gautam Landrum MD - 3:22 PM INDEPENDENT JEWELER Performed by: JUANITA Mayo Patient cooperation: Reliable . Reliability of the test: Good . Test Findings: Strabismus . Interpretation: Esotropia . Plan: Will monitor and consider eye mu scle surgery . Interval: Initial . Gautam Landrum MD OPHTHALMOLOGY documented in this encounter Visit Diagnoses Diagnosis Subjective visual disturbance - Primary Subjective visual disturbance, unspecifi ed Diplopia documented in this encounter Care Teams Underwriting Assistant Relationship Specialty Start Date End Date [place], [facility] PCP - General 01/19/17 [place], [place] [id number] documented as of this encounter
--- OUTSIDE RECORDS SUMMARY | 2021-12-29 15:51 | XMS_ITS | Encounter Summary ---
:1945 Author Organization [employer] Address [facility] [place] [address] Care Team Providers Name Role Phone [facility] Primary Care Provider [phone] Encounter Details Date Type Department Care Team Description 02/28/2017 Allied Health/Nurse [facility] Preoperative Rn, Pac Visit Assessment Center [address] [place], [place] [phone] Social History Tobacco Use Types Packs/Day [...] 03/02/17 Arrival time: 07:45 Please come to: [facility] [address] [place] [phone] Preschool Associate Teacher Parking is available in front of the Clinics and Surgery Center building from 5:30AM to 8:00PM. - Proceed to the 5th floor to check into the Ambulatory Surgery Center. >> There will be patient concierges on the 1st and 5th floor, for assistance or an escort, ifyou would like. >> Please call [phone] with any questions. What can I eat [...] - Do NOT wear any makeup, fingernail south sudanese or jewelry. - Begin using Incentive Spirometer [...] call the Preoperative Assessment Center, Sunday-Sunday 7AM-7PM: [phone] LINE TRACTOR OPERATOR documented in this encounter Plan of Treatment Not on filedocumented as of this encounter Visit Diagnoses Not on filedocumented in this encounter Care Teams Stone Trimmer Relationship Specialty Start Date End Date [facility] PCP - General 01/19/17 [place] [address] documented as of this encounter
--- OUTSIDE RECORDS SUMMARY | 2021-12-29 15:51 | XMS_ITS | Encounter Summary ---
:1945 Author Organization [place] Address [address] [place] [address] Care Team Providers Name Role Phone Center, [facility] Primary Care Provider [phone] Reason for Visit Reason Comments New Patient [place] patient referred for doub le vision evaluation d/t optic nerve eversion Encounter Details Date Type Department Care Team Description 02/23/2017 Office Visit [facility] Eye Gautam Landrum (non- arteritic anterior ischemic optic neuropathy), right eye (Primary Dx); Clinic - Gustavo Valencia MD Abducens nerve palsy, left; [place] [address] Senile nuclear sclerosis, bilateral Building [address] [address] [address]A [phone] [place], [place] (Work) [phone] Social History Tobacco Use Types Packs/Day Years [...] the patient be set-up withrheumatology at the [place] for corticosteroid management and consideration of concomitant Actemra treatment. Corby Perry is a pleasant 71 year old White male who presents to my neuro- ophthalmology clinic today, referred by Dr Aguirre at the [place], for evaluation of diplopia. He reports double [...] with his primary care physician at the [place] to monitor his blood sugars which will surely elevate on corticosteroids. Will also recommend he see rheumatology in the [place] (or we can arrange at [facility] if [facility] prefers). I spent a total of 60 [...] the patient and family Gautam Landrum MD ICAL APPLIANCE FITTER documented in this encounter Nursing Notes Sabra [...] A1c was 3 weeks ago at the [place]. Patient states horizontal diplopia that started on [...] figure what caused the double at the [place]. -Spinal tab 2x, MRI 3x ( 1 head, 1 full body and dyes). -EKGs 2x [facility] thought [facility] could [facility] been [facility] but uncertain. Discussion of brain surgery as well. JUANITA Alegria 02/23/2017 8:46 AM ICAL APPLIANCE FITTER documented in this encounter Plan of Treatment Not on filedocumented as of this encounter Results (ABNORMAL) CRP inflammation (02/23/2017 11:43 AM SURGICAL APPLIANCE FITTER) [facility] Method Time Signature CRP Inflammation 9.2 (H) 0.0 - 8.0 02/23/2017 UN[facility] O F mg/L 12:06 PM SURGICAL APPLIANCE FITTER [facility] [place] Specimen Anatomical Collection Method Collection Time Receive d Time (Source) Location / / Volume Laterality Blood specimen 02/23/2017 11:43 8 (specimen) AM SURGICAL APPLIANCE FITTER 11:44 AM SURGICAL APPLIANCE FITTER Gautam Landrum MD LAB - BLOOD ORDERABLES Performing Organization Address City/State/ZIP Code Phon e Number [facility] [address] [place] [address] [facility] Erythrocyte sedimentation rate auto (02/23/2017 11:43 AM SURGICAL APPLIANCE FITTER) P athologist Signature Sed Rate 14 0 - 20 mm/h 02/23/2017 [facility] 1:02 PM SURGICAL APPLIANCE FITTER [facility] Specimen Anatomical Collection Method Collection Time Receive d Time (Source) Location / / Volume Laterality Blood specimen 02/23/2017 11:43 8 (specimen) AM SURGICAL APPLIANCE FITTER 11:44 AM SURGICAL APPLIANCE FITTER Gautam Landrum MD LAB - BLOOD ORDERABLES Performing Organization Address City/State/ZIP Code Phon e Number [address] [address] [facility] documented in this encounter Visit Diagnoses Diagnosis NAION (non-arteritic anterior ischemic o ptic neuropathy), right eye - Primary Ischemic optic neuropathy Abducens nerve palsy, left Senile nuclear sclerosis, bilateral documented in this encounter Care Teams Inbound Sales Advisor Relationship Specialty Start Date End Date [facility] PCP - General 01/19/17 [place], [place] [id number] documented as of this encounter
== END 2021-12-29 15:49 | disposition home or self-care (01) ==
LOC: WOUND 15:48
PROVIDERS: PCP Podiatrist; Visit Provider Nurse Practitioner Family
DX: E11.621 Type 2 diabetes mellitus with foot ulcer (principal); L97.415 Non-pressure chronic ulcer of right heel and midfoot with muscle involvement without evidence of necrosis; Z79.84 Long term (current) use of oral hypoglycemic drugs
CPT/HCPCS: 11042

== ENCOUNTER 2022-01-05 15:35 | Outpatient (CLI) | payer OTHER, SELFPAY | END 2022-01-05 15:36 | disposition home or self-care (01) | LOC: WOUND 15:35 | PROVIDERS: PCP Podiatrist; Visit Provider Nurse Practitioner Family | DX: E11.621 Type 2 diabetes mellitus with foot ulcer (principal); L97.415 Non-pressure chronic ulcer of right heel and midfoot with muscle involvement without evidence of necrosis; Z79.84 Long term (current) use of oral hypoglycemic drugs | CPT/HCPCS: 11042 ==

== ENCOUNTER 2022-01-10 15:23 | Outpatient (CLI) | payer OTHER, SELFPAY | END 2022-01-10 15:24 | disposition home or self-care (01) | PROVIDERS: PCP Podiatrist; Visit Provider Nurse Practitioner Family | DX: E11.621 Type 2 diabetes mellitus with foot ulcer (principal); L97.415 Non-pressure chronic ulcer of right heel and midfoot with muscle involvement without evidence of necrosis; Z79.84 Long term (current) use of oral hypoglycemic drugs | CPT/HCPCS: 11042 ==

== ENCOUNTER 2022-01-18 15:23 | Outpatient (CLI) | payer OTHER, SELFPAY ==
--- NOTE | 2022-01-18 15:30 | CRLHL7_ITS ---
For Patients: As a result of the Century Cures Act, medical imaging exams and procedure reports are released immediately into your electronic medical record. You may view this report before your referring provider. If you have questions, please contact your health care provider. HISTORY: Foot ulcer. TECHNIQUE: MRI left midfoot without contrast. COMPARISON: None. FINDINGS: Wound in the plantar midfoot. Wound extends into the deep soft tissues. 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 Dorsal dislocation of the 2nd through 5th metatarsals at the tarsometatarsal joints. Foci of susceptibility artifact in the wound and in the deep tissues with the adjacent midfoot may be postoperative artifacts or soft tissue gas. 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 Marrow edema in the lateral aspect of the navicular, middle and lateral cuneiforms, and distal cuboid. Erosion of the plantar cortex of the lateral cuneiform with localized area of T1 hypointense marrow infiltration (short axis series 4, image 14). Mild osteoarthritis of the ankle. Subtalar joint is maintained. Plantar calcaneal enthesophyte. Chronic hypointense thickening of the plantar aponeurosis near the calcaneal attachment. Type 2 accessory navicular. Posterior tibial tendon is intact. Flexor hallucis longus tendon is intact. Portions of the flexor digitorum long and the flexor digitorum brevis tendons may be disrupted at the level the wound. Distal peroneus brevis tendon is intact. Suspect disruption of the distal peroneus longus tendon at the midfoot. No intact appearing tibialis anterior tendon. Extensor hallucis longus and extensor digitorum longus tendons appear intact. Severe atrophy of the foot musculature. Subcutaneous edema. No fluid collection. IMPRESSION: 1. Plantar mid foot wound. 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 2. 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 3. Suspected disruption of portions of the flexor digitorum longus tendons, flexor digitorum brevis tendons, and distal peroneus longus tendon in the plantar midfoot at the wound. Denervation changes in the musculature. 4. Subcutaneous edema. No fluid collection. Dictated by Richard Lindsey MD @ 01/19/2022 11:19:46 AM (Electronically Signed)
== END 2022-01-18 15:24 | disposition home or self-care (01) ==
LOC: MRI 15:25
PROVIDERS: PCP Podiatrist; Visit Provider Nurse Practitioner Family
DX: L97.515 Non-pressure chronic ulcer of other part of right foot with muscle involvement without evidence of necrosis (principal); M86.9 Osteomyelitis, unspecified
CPT/HCPCS: 73718

== ENCOUNTER 2022-01-26 15:27 | Outpatient (CLI) | payer OTHER, SELFPAY | END 2022-01-26 15:28 | disposition home or self-care (01) | LOC: WOUND 15:28 | PROVIDERS: PCP Podiatrist; Visit Provider Nurse Practitioner Family | DX: E11.621 Type 2 diabetes mellitus with foot ulcer (principal); L97.415 Non-pressure chronic ulcer of right heel and midfoot with muscle involvement without evidence of necrosis; Z79.84 Long term (current) use of oral hypoglycemic drugs | CPT/HCPCS: 11042 ==

== ENCOUNTER 2022-02-02 15:14 | Outpatient (CLI) | payer OTHER, SELFPAY | END 2022-02-02 15:15 | disposition home or self-care (01) | LOC: WOUND 15:14 | PROVIDERS: PCP Podiatrist; Visit Provider Nurse Practitioner Family | DX: E11.621 Type 2 diabetes mellitus with foot ulcer (principal); L97.415 Non-pressure chronic ulcer of right heel and midfoot with muscle involvement without evidence of necrosis; Z79.84 Long term (current) use of oral hypoglycemic drugs | CPT/HCPCS: 11042 ==

== ENCOUNTER 2022-02-16 14:49 | Outpatient (CLI) | payer OTHER, SELFPAY | END 2022-02-16 14:50 | disposition home or self-care (01) | LOC: WOUND 14:50 | PROVIDERS: PCP Podiatrist; Visit Provider Nurse Practitioner Family | DX: E11.621 Type 2 diabetes mellitus with foot ulcer (principal); L97.415 Non-pressure chronic ulcer of right heel and midfoot with muscle involvement without evidence of necrosis; Z79.84 Long term (current) use of oral hypoglycemic drugs | CPT/HCPCS: 11042 ==